=== PATIENT | female | born 1990 | race Caucasian/White ===

== ENCOUNTER 2023-02-14 16:20 | Outpatient (RCR) | payer OTHER, SELFPAY | END 2023-03-01 13:52 | disposition home or self-care (01) | LOC: PT 16:20 | PROVIDERS: PCP Family Medicine; Visit Provider Family Medicine | DX: M54.2 Cervicalgia (principal) | CPT/HCPCS: 20561; 97140; 97161 ==

== ENCOUNTER 2023-02-27 06:36 | Outpatient (OUT) | payer OTHER, SELFPAY ==
[2023-02-27 07:17] LABS: Basophils Absolute Auto 0.1 10^3/uL (0.0-0.1); Basophils Percent Auto 0.9 % (0.2-2.0); Eosinophils Absolute Auto 0.1 10^3/uL (0.0-0.7); Eosinophils Percent Auto 0.9 % (0.9-7.0); Hematocrit 39.6 % (36.0-48.0); Hemoglobin 12.8 g/dL (12.0-16.0); Immature Granulocytes Abs Auto 0.02 10^3/uL (0.00-0.03); Immature Granulocytes Pct Auto 0.3 % (0.0-0.5); Lymphocytes Absolute Auto 1.3 10^3/uL (1.2-3.8); Lymphocytes Percent Auto 19.1 % (20.5-60.0); Mean Corpuscular HGB Conc 32.3 g/dL (29.9-35.2); Mean Corpuscular Hemoglobin 26.7 pg (26.7-34.0); Mean Corpuscular Volume 82.5 fL (81.0-99.0); Mean Platelet Volume 9.8 fL (9.5-13.5); Monocytes Absolute Auto 0.6 10^3/uL (0.3-0.8); Neutrophils Absolute Auto 4.9 10^3/uL (1.4-6.5); Neutrophils Percent Auto 70.8 % (43.0-75.0); Platelet Count 316 10^3/uL (150-450); White Blood Count 6.9 10^3/uL (4.0-11.0)
[2023-02-27 08:36] LABS: Estimated Average Glucose 108 mg/dL; Glycohemoglobin A1C 5.4 % (4.5-6.2)
[2023-02-27 09:47] LABS: Alanine Aminotransferase 31 U/L (14-59); Albumin Globulin Ratio 1.1; Albumin Level 4.1 g/dL (3.4-5.0); Alkaline Phosphatase 57 U/L (46-116); Anion Gap 6.5; Aspartate Amino Transferase 19 U/L (15-37); BUN Creatinine Ratio 11.3; Bilirubin Total 0.4 mg/dL (0.2-1.0); Calcium 8.7 mg/dL (8.5-10.1); Carbon Dioxide 33.1 mmol/L (21.0-32.0); Chloride 100 mmol/L (98-107); Chol HDL Ratio 3.9; Cholesterol 207 mg/dL (<=200); Estimated GFR (African America >60 (>=60); Estimated GFR (Non-African Ame 50 (>=60); Free T3 2.61 pg/mL (2.18-3.98); Globulin 3.6 g/dL; Glucose 94 mg/dL (74-106); HDL Cholesterol 53 mg/dL (40-60); Potassium 3.6 mmol/L (3.5-5.1); Sodium 136 mmol/L (136-145); Thyroid Stimulating Hormone 3.336 uIU/mL (0.358-3.740); Total Protein 7.7 g/dL (6.4-8.2); Triglycerides 88 mg/dL (<=150); VLDL CHOLESTEROL 17.6 mg/dL
[2023-02-28 11:11] LABS: Insulin 12.6 uIU/mL (2.6-24.9)
== END 2023-02-27 06:37 | disposition home or self-care (01) ==
LOC: LAB 06:38
PROVIDERS: PCP Family Medicine; Visit Provider Family Medicine
DX: Z00.00 Encounter for general adult medical examination without abnormal findings (principal)
CPT/HCPCS: 36415; 80053; 80061; 83036; 83525; 83540; 84436; 84443; 84481; 85025

== ENCOUNTER 2023-03-04 16:50 | Outpatient (OUT) | payer OTHER, SELFPAY ==
--- NOTE | 2023-03-04 16:54 | US_ITS ---
The [address] [address] Patient Name: JAREK FIELD MRN: [id number] date: 1990 Sex: F Assigned Patient Location: Current Patient Location: US Accession/Order Number: [id number] Exam Date: 03/04/2023 17:00 Report Date: 03/04/2023 17:52 At the request of: DONNELL ALLEN Procedure: US renal BI Ultrasound kidneys, bilateral HISTORY: Disorder of kidney and ureter, N28.9 COMPARISON: None. TECHNIQUE: Transabdominal ultrasound imaging of both kidneys was performed. FINDINGS: Both kidneys demonstrate normal echotexture and echogenicity. The right kidney measures 9.1 x 4.8 x 4.4 cm. There is no hydronephrosis of right kidney. The left kidney measures 10.7 x 4.3 x 5.0 cm. No hydronephrosis of left kidney. No discrete renal lesion or renal stone is seen. The bladder is distended with prevoid volume at 370 cc. Ureteral jets not assessed. US/US renal BI IMPRESSION: 1. Normal ultrasound appearance of the kidneys. Negative for hydronephrosis, structural renal lesion or renal stone by ultrasound. 2. Normal appearance of distended bladder. Electronically authenticated by: ORIANA GANNON Date: 03/04/2023 17:52
== END 2023-03-04 16:51 | disposition home or self-care (01) ==
LOC: US 16:51
PROVIDERS: PCP Family Medicine; Visit Provider Family Medicine
DX: N28.9 Disorder of kidney and ureter, unspecified (principal)
CPT/HCPCS: 76775

== ENCOUNTER 2023-06-03 09:50 | Outpatient (RCR) | payer OTHER, SELFPAY | END 2023-07-09 15:02 | disposition home or self-care (01) | LOC: PT 09:50 | PROVIDERS: PCP Family Medicine; Visit Provider Family Medicine | DX: M54.12 Radiculopathy, cervical region (principal); M79.602 Pain in left arm | CPT/HCPCS: 20561; 97140; 97161 ==

== ENCOUNTER 2023-06-09 14:36 | Observation (INO) | payer OTHER, SELFPAY ==
[2023-06-09] VITALS (10 sets, daily range): BP systolic 124–150; BP diastolic 82–90; PULSE 70–94; RESP 16–20; TEMP 36.4–37.1; O2SAT 94–100; BMI 36.0; BMI 36.7
--- NOTE | 2023-06-09 15:09 | ED.GENADUL1 ---
HPI - General Adult General Chief complaint: Headache Stated complaint: MIGRAINE Time Seen by Provider: 06/09/23 14:42 Source: patient Mode of arrival: walk-in Limitations: no limitations History of Present Illness HPI narrative: pain from the neck to the base of the scalp that worsened since last night. She has chronic neck problems and has tried a variety of therapies including micro-needling. No recent injury or illness, recent fever or chills. She had some nausea but no vomiting. No URI symptoms. She has some mild photophobia. Never been diagnosed with migraines but symptoms are typical of those associated with her neck pain. She took half tab of tizanidine and some tylenol earlier today. Related Data Home Medications Medication Instructions Recorded Confirmed acebutolol 200 mg capsule 200 mg PO BID 06/09/23 06/09/23 bupropion HCl 300 mg 24 hr tablet, 300 mg PO DAILY 06/09/23 06/09/23 extended release oxaprozin 600 mg tablet 600 mg PO DAILY 06/09/23 06/09/23 pantoprazole 40 mg tablet,delayed 40 mg PO Q12H 06/09/23 06/09/23 release phentermine 37.5 mg capsule 37.5 mg PO DAILY 06/09/23 06/09/23 tizanidine 4 mg tablet 8 mg PO BEDTIME 06/09/23 06/09/23 trazodone 50 mg tablet 50 mg PO BEDTIME 06/09/23 06/09/23 triamterene 75 1 tab PO DAILY 06/09/23 06/09/23 mg-hydrochlorothiazide 50 mg tablet Allergies Allergy/AdvReac Type Severity Reaction Status Date / Time irbesartan Allergy Severe Verified 06/09/23 14:47 silver Allergy Severe Hives Verified 06/09/23 14:47 [facility] Social History Smoking status: Never smoker Exam Narrative Exam Narrative: Nurses notes and vital signs reviewed and patient is not hypoxic. afebrile General: Well-appearing and in no apparent distress. Skin: Warm, dry, no pallor noted. No rash to back or neck. Head: Normocephalic, atraumatic. Neck: Supple, non-tender. no cervical lymphadenopathy or meningismus Eye: Pupils are equal, round and EOMI. No scleral icterus. Cardiovascular: Regular Rate and Rhythm without murmur, gallop or rub. Respiratory: No accessory muscle use or respiratory distress. Lungs are clear to auscultation, no wheezing, rales or rhonchi Back: No midline thoracic or lumbar vertebral tenderness. Mild bilateral trapezius tenderness Musculoskeletal: normal ROM, no calf or popliteal tenderness, no lower extremity edema/swelling Neurological: A&O x4. No cranial nerve dysfunction observed. No truncal ataxia. Moves all extremities. Sensation intact. Psychiatric: Cooperative and interactive. Normal mood and affect. Constitutional Vital Signs, click to edit/add: Last Vital Signs Temp 98.5 F 06/09/23 14:40 Pulse 70 06/09/23 17:14 Resp 18 06/09/23 17:14 BP 150/90 H 06/09/23 17:14 Pulse Ox 99 06/09/23 17:14 O2 Del Method Room Air 06/09/23 14:40 Course Vital Signs Vital signs: Vital Signs Temperature 98.5 F 06/09/23 14:40 Pulse Rate 78 06/09/23 14:40 Respiratory Rate 16 06/09/23 14:40 Blood Pressure 139/90 06/09/23 14:40 Pulse Oximetry 99 06/09/23 14:40 Oxygen Delivery Method Room Air 06/09/23 14:40 Temperature 98.5 F 06/09/23 14:40 Pulse Rate 70 06/09/23 17:14 Respiratory Rate 18 06/09/23 17:14 Blood Pressure 150/90 H 06/09/23 17:14 Pulse Oximetry 99 06/09/23 17:14 Oxygen Delivery Method Room Air 06/09/23 14:40 Medical Decision Making MDM Narrative Medical decision making narrative: peripheral IV established. The patient was ordered to receive IV Toradol, IV Norflex and IV Zofran. She also received normal saline IV fluid. No improvement on recheck so she received IV Benadryl, IV Solumedrol and IV Dilaudid. She was sent for non contrast head CT which did not reveal any worrisome pathology. On recheck at 1712, her pain was still 9/10, barely down from 10/10 on arrival. I have given her everything available to me in the ED for this without any improvement. She will be admitted for further management of her intractable headache and neck pain. I talked with Dr Sharpe and she agreed to admit the patient on behalf of Dr Brooke, the patient's PCP. Imaging Data CT scan - head: Radiologist's impression: Patient: JAREK FIELD MR#: [id number] : 1990 Acct:[id number] Age/Sex: 32 / F ADM Date: 06/09/23 Loc: ER Attending Dr: Ordering Physician: Soham Lonodn D.O. Date of Service: 06/09/23 Procedure(s): CT head/brain wo con Accession Number(s): [id number] cc: ~ [place] [id number] Patient Name: JAREK FIELD MRN: [id number] date: 1990 Sex: F Assigned Patient Location: ER Current Patient Location: ER Accession/Order Number: [id number] Exam Date: 06/09/2023 16:28 Report Date: 06/09/2023 17:03 At the request of: SOHAM LONDON Procedure: CT head/brain wo con Initial impression only. CT/CT head/brain wo con IMPRESSION: 1. No acute intracranial event. 2. Clear sinuses. 3. Partially empty sella. Electronically authenticated by: KAITLYN ROBBINS Date: 06/09/2023 17:03 Discharge Plan Discharge Chief Complaint: Headache Clinical Impression: Neck pain, acute, Acute intractable headache Patient Disposition: Admitted as Observation Time of Disposition Decision: 17:28 Additional Instructions: dr Sharpe, medsur, obs
[2023-06-09] MEDS: 0.9 % SODIUM CHLORIDE 1,000 ML 999 ML IV (15:19)
[2023-06-09] MEDS: ONDANSETRON PF 4 MG/2 ML VIAL IV (15:20)
[2023-06-09] MEDS: ORPHENADRINE 60 MG/ 2 ML VIAL 30 MG IV (15:20)
[2023-06-09] MEDS: KETOROLAC TROMETHAMINE 30 MG/ML VIAL IVP (15:21)
[2023-06-09] MEDS: DIPHENHYDRAMINE HCL 50 MG/ML (1ML) VIAL 25 MG IV (16:10)
[2023-06-09] MEDS: HYDROMORPHONE HCL 1 MG/ML CARTRIDGE 0.5 MG IVP ×2 (16:10→16:27)
[2023-06-09] MEDS: METHYLPREDNISOLONE SOD SUCC PF 125 MG/2 ML VIAL IVP (16:10)
--- NOTE | 2023-06-09 16:19 | CT_ITS ---
[address] [address] Patient Name: JAREK FIELD MRN: [id number] date: 1990 Sex: F Assigned Patient Location: ER Current Patient Location: [place] Accession/Order Number: [id number] Exam Date: 06/09/2023 16:28 Report Date: 06/11/2023 10:38 At the request of: SOHAM LONDON Procedure: CT head/brain wo con EXAMINATION: CT head/brain wo con HISTORY: headache COMPARISON: None. TECHNIQUE: Unenhanced helical imaging was acquired from skull base to vertex. Multiplanar images are submitted. Dose reduction techniques were achieved by using: automated exposure control and/or adjustment of mA and /or kV according to patient size and/or use of iterative reconstruction technique. FINDINGS: There is no acute intraaxial or extraaxial mass, shift, or bleed. Simpson-white junctions are well defined. The ventricles and sulci are age-appropriate. Partially empty sella.. The orbit and ocular contents are normal. The paranasal sinuses are clear. Calvarium is intact. CT/CT head/brain wo con IMPRESSION: 1. No acute intracranial event. 2. Clear sinuses. 3. Partially empty sella. Electronically authenticated by: KAITLYN ROBBINS Date: 06/11/2023 10:38
[2023-06-09 18:19] LABS: Basophils Absolute Auto 0.1 10^3/uL (0.0-0.1); Basophils Percent Auto 0.7 % (0.2-2.0); Eosinophils Percent Auto 0.5 % (0.9-7.0); Hematocrit 40.7 % (36.0-48.0); Hemoglobin 13.1 g/dL (12.0-16.0); Immature Granulocytes Abs Auto 0.03 10^3/uL (0.00-0.03); Immature Granulocytes Pct Auto 0.4 % (0.0-0.5); Lymphocytes Absolute Auto 0.6 10^3/uL (1.2-3.8); Lymphocytes Percent Auto 7.7 % (20.5-60.0); Mean Corpuscular HGB Conc 32.2 g/dL (29.9-35.2); Mean Corpuscular Hemoglobin 27.8 pg (26.7-34.0); Mean Corpuscular Volume 86.2 fL (81.0-99.0); Mean Platelet Volume 9.4 fL (9.5-13.5); Monocytes Absolute Auto 0.1 10^3/uL (0.3-0.8); Monocytes Percent Auto 1.9 % (1.7-12.0); Neutrophils Absolute Auto 6.6 10^3/uL (1.4-6.5); Neutrophils Percent Auto 88.8 % (43.0-75.0); Platelet Count 274 10^3/uL (150-450); Red Blood Count 4.72 10^6/uL (4.20-5.40); Red Cell Distribution Width 14.2 % (11.0-15.0); White Blood Count 7.4 10^3/uL (4.0-11.0)
[2023-06-09 18:51] LABS: Alanine Aminotransferase 23 U/L (14-59); Albumin Globulin Ratio 1.1; Alkaline Phosphatase 52 U/L (46-116); Anion Gap 11.9; Aspartate Amino Transferase 14 U/L (15-37); BUN Creatinine Ratio 9.8; Bilirubin Total 0.3 mg/dL (0.2-1.0); Calcium 8.7 mg/dL (8.5-10.1); Carbon Dioxide 28.5 mmol/L (21.0-32.0); Chloride 101 mmol/L (98-107); Estimated GFR (African America 56 (>=60); Estimated GFR (Non-African Ame 47 (>=60); Globulin 3.8 g/dL; Glucose 101 mg/dL (74-106); Magnesium 1.7 mg/dL (1.8-2.4); Potassium 3.4 mmol/L (3.5-5.1); Sodium 138 mmol/L (136-145); Thyroid Stimulating Hormone 1.885 uIU/mL (0.358-3.740); Total Protein 7.8 g/dL (6.4-8.2)
[2023-06-09] MEDS: ENOXAPARIN SODIUM 40 MG/0.4 ML SYRINGE SUBQ (19:54)
[2023-06-09] MEDS: LACTATED RINGER'S SOLUTION 1,000 ML 125 ML IV (19:54)
--- NOTE | 2023-06-09 21:11 | P.PN_ITS ---
Progress Note: Subjective Subjective Interval history: Chief Complaint: Severe headache, neck pain History of Present Illness: This is a very pleasant 32 years old female who presents with above complaints. Patient has chronic neck pain and chronic headache. She tried different treatment modalities at home including nonsteroidal anti-inflammatory medications, muscle relaxants, microneedling. It worked with various degree of success in the past. In the last 2 days symptoms intensified and patient could not control her headache. She came to emergency room for evaluation. She denies fever, chills, nasal congestion or sore throat. Evaluation in the emergency room did not reveal any significant abnormalities. Attempt to control his symptoms with nonsteroidal anti-inflammatory medications and or narcotics so far did not yield to desirable result. Admitted for further evaluation and treatment. Exam Narrative Exam Narrative: ROS: 1.General: no fever, chills, not in distress 2.HEENT: See above 3.Pulmonary: no cough, SOB, wheezes 4.CVS: no CP, no palpitations, no RICHARDS, no SOB, no intermittent claudication 5.GI: no nausea, vomiting or diarrhea, no abdominal pain, no constipation, no hematemesis or hematochezia 6.: no renal colic, no hematuria, urinary frequency or urgency 7.Extremities: no edema 8.Neurological: no dizziness, vertigo, double or blurry vision, no no focal we akness, no paresthesia, no swallow or speech problems 9.Musculosceletal: no joint pains, no joint swelling, no back pain 10.Dermatological: no skin rashes, no lesions, no pruritus 11.Hematological: no bleeding, no hx/o clots 12.Endocrinological: no heat/cold intolerance, no hx/o diabetes 13.Psychiatric: no suicidal or homicidal thoughts Physical Exam: Not in distress, pleasant, lucid, cooperative, Head - atraumatic, eyes - pupils equal, round, reactive to light, extra ocular movement intact, MMM Neck - supple, thyroid not enlarged, LN not palpated Lungs - clear to auscultation, no dullness on percussion CVS - heart sounds S1, S2, no additional murmurs gallop, regular rate and rhythm Gastrointestinal?abdomen is soft, non-tender, non-distended, no organomegaly, positive bowel sounds Extremities no clubbing, cyanosis or edema Neurological?cranial nerve II?XII grossly intact, no meningeal signs, no cerebellar signs, no sensory deficit Musculoskeletal - joints, no effusions, ROM preserved Dermatological - the skin dry, warm, no rashes Psychiatric?patient is AAO X3, patient has normal affect Constitutional Vital Signs, click to edit/add: Last Vital Signs Temp 98.8 F 06/09/23 19:37 Pulse 85 06/09/23 20:00 Resp 18 06/09/23 19:37 BP 124/84 06/09/23 19:37 Pulse Ox 97 06/09/23 19:37 O2 Del Method Room Air 06/09/23 19:37 Progress Note: Objective Labs Labs: Short CBC 06/09/23 Range/Units 18:10 WBC 7.4 (4.0-11.0) 10^3/uL Hgb 13.1 (12.0-16.0) g/dL Hct 40.7 (36.0-48.0) % Plt Count 274 (150-450) 10^3/uL BMP 06/09/23 18:10 Sodium 138 Potassium 3.4 L Chloride 101 Carbon Dioxide 28.5 BUN 13.0 Creatinine 1.32 H Glucose 101 Calcium 8.7 Liver Function 06/09/23 Range/Units 18:10 Total Bilirubin 0.3 (0.2-1.0) mg/dL AST 14 L (15-37) U/L ALT 23 (14-59) U/L Alkaline Phosphatase 52 (46-116) U/L Albumin 4.0 (3.4-5.0) g/dL Progress Note: A&P Assessment and Plan (1) Acute intractable headache: Assessment and Plan: No acute findings during evaluation in the emergency room Continue with gentle, judicious IV fluid resuscitation Continue with symptoms control?I added Toradol IV every 8 hours as needed as well as Fioricet (patient stating that she is usually not consuming caffeine, but at times it helps with her headaches and symptoms management) (2) Neck pain, acute: Assessment and Plan: As above Patient might benefit from MRI of the neck and may be referral to his spinal surgeon or neurosurgeon if any significant abnormalities identified (3) Hypertension: Assessment and Plan: Resume home medications if medically appropriate, adjust as needed (4) GERD (gastroesophageal reflux disease): Assessment and Plan: Continue with PPIs Plan As the provider for the telehealth service, I attest that I introduced myself to the patient, provided my credentials, disclosed by location and determined that based on a review of the patient's chart and discussion with members of the patient's treatment team, telemedicine via real-time, 2 way, and interactive audio and video platform is an appropriate and effective means of providing the service. ?The patient and I mutually agree this visit is appropriate for telemedicine. ?The virtual encounter was taken place from? [place], [place]. ?The encounter took approximately 35 minutes. ?The nurse was present during the entire time and I was able to move the stethoscope in appropriate directions. ?The patient was evaluated at the Hospital ? Portions of this note may be dictated using [employer] voice recognition software. Variances in spelling and vocabulary are possible and unintentional. Not all errors may be caught and/or corrected. Please notify the author if any discrepancies are noted and/or if the meaning of any statement is unclear.? ? Patient verbally consented for treatment via video visit with patient currently located at the [facility] and provider located in [place]. Telemedicine Attestation Telemedicine Attestation I conducted this encounter from [[place]] via secure live, [id number] video conference with the patient, located at [facility] with [intractable headache]. Prior to the interview, the risks and benefits of telemedicine were discussed with the patient and verbal consent was obtained.
[2023-06-09] MEDS: TIZANIDINE HCL 4 MG TABLET 8 MG PO (21:18)
[2023-06-09] MEDS: TRAZODONE HCL 50 MG TABLET PO (21:18)
[2023-06-09] MEDS: OMEPRAZOLE 40 MG CAPSULE.DR PO (21:18)
[2023-06-09] MEDS: 0.9 % SODIUM CHLORIDE 1,000 ML 100 ML IV ×2 (21:19)
[2023-06-09] MEDS: BUTALB/ACETAMINOPHEN/CAFFEINE 50-325-40MG TABLET 1 TAB PO (21:25)
[2023-06-09] MEDS: KETOROLAC TROMETHAMINE 30 MG/ML VIAL 15 MG IVP (21:27)
[2023-06-09] MEDS: SUMATRIPTAN SUCCINATE 50 MG TABLET PO (22:58)
[2023-06-10] VITALS (24 sets, daily range): BP systolic 111–190; BP diastolic 72–120; PULSE 58–95; RESP 18–20; TEMP 36.4–37.2; O2SAT 93–96
[2023-06-10] MEDS: ACETAMINOPHEN 325 MG TABLET 650 MG PO ×2 (01:37→14:54)
[2023-06-10] MEDS: SUMATRIPTAN SUCCINATE 50 MG TABLET PO (01:37)
[2023-06-10] MEDS: PROMETHAZINE HCL 25 MG/ML VIAL 12.5 MG IM (03:25)
[2023-06-10] MEDS: BUTALB/ACETAMINOPHEN/CAFFEINE 50-325-40MG TABLET 1 TAB PO (04:20)
[2023-06-10] MEDS: HYDRALAZINE HCL 20 MG/ML VIAL 10 MG IVP (04:41)
[2023-06-10] MEDS: KETOROLAC TROMETHAMINE 30 MG/ML VIAL 15 MG IVP (05:41)
[2023-06-10] MEDS: 0.9 % SODIUM CHLORIDE 1,000 ML 100 ML IV ×2 (05:42→16:56)
[2023-06-10 05:46] LABS: Basophils Percent Auto 0.1 % (0.2-2.0); Hematocrit 38.7 % (36.0-48.0); Hemoglobin 12.8 g/dL (12.0-16.0); Immature Granulocytes Abs Auto 0.03 10^3/uL (0.00-0.03); Immature Granulocytes Pct Auto 0.3 % (0.0-0.5); Lymphocytes Absolute Auto 0.8 10^3/uL (1.2-3.8); Lymphocytes Percent Auto 8.1 % (20.5-60.0); Mean Corpuscular HGB Conc 33.1 g/dL (29.9-35.2); Mean Corpuscular Hemoglobin 27.8 pg (26.7-34.0); Mean Corpuscular Volume 84.1 fL (81.0-99.0); Mean Platelet Volume 9.6 fL (9.5-13.5); Monocytes Absolute Auto 0.4 10^3/uL (0.3-0.8); Monocytes Percent Auto 4.2 % (1.7-12.0); Neutrophils Absolute Auto 8.7 10^3/uL (1.4-6.5); Neutrophils Percent Auto 87.3 % (43.0-75.0); Platelet Count 276 10^3/uL (150-450); Red Cell Distribution Width 14.2 % (11.0-15.0); White Blood Count 9.9 10^3/uL (4.0-11.0)
--- NOTE | 2023-06-10 05:57 | PC.NURSE ---
patient states it feels like I am running . B/P rechecked 154/102, HR 67
[2023-06-10 06:06] LABS: Alanine Aminotransferase 21 U/L (14-59); Albumin Level 3.5 g/dL (3.4-5.0); Alkaline Phosphatase 47 U/L (46-116); Anion Gap 14.7; Aspartate Amino Transferase 13 U/L (15-37); Bilirubin Total 0.2 mg/dL (0.2-1.0); Calcium 8.5 mg/dL (8.5-10.1); Carbon Dioxide 24.8 mmol/L (21.0-32.0); Chloride 102 mmol/L (98-107); Estimated GFR (African America >60 (>=60); Estimated GFR (Non-African Ame 59 (>=60); Globulin 3.5 g/dL; Glucose 93 mg/dL (74-106); Potassium 3.5 mmol/L (3.5-5.1); Sodium 138 mmol/L (136-145)
--- NOTE | 2023-06-10 07:52 | MR_ITS ---
The [address] [address] Patient Name: JAREK FIELD MRN: [id number] date: 1990 Sex: F Assigned Patient Location: MS Current Patient Location: [place] Accession/Order Number: [id number] Exam Date: 06/10/2023 15:00 Report Date: 06/10/2023 15:51 At the request of: DONNELL ALLEN Procedure: MR cervical spine wo con MRI CERVICAL SPINE WITHOUT CONTRAST: 06/10/2023 3:00 PM EDT History:cervical radiculopathy Comparison: None available . Sequences: Per routine unenhanced protocol. STUDY QUALITY: Mild motion artifact on axial GRE, sagittal T2, and IR T2. Moderate motion artifact on axial T2 CRANIOVERTEBRAL JUNCTION: No acute finding. OSSEOUS: No marrow edema pattern or compression deformity. SPINAL CANAL SIZE: Developmentally is a little greater than average in size C1-2: No central stenosis. C2-3: No HNP or central stenosis. C3-4: Mild spondylitic ridging off the posterior margins of both uncovertebral joints, right slightly greater than left. No central stenosis. C4 foramina are mildly narrowed. C4-5: No HNP or central stenosis. C5-6: No HNP or central stenosis. C6-7: Mild disc bulge or spondylosis. No central stenosis. C7-T1: No HNP or central stenosis. OTHER LEVELS: Exam in the sagittal plane only at upper thoracic levels is negative for HNP or central stenosis. CORD: No evidence of myelomalacia. No syrinx. EXTRASPINAL SOFT TISSUES: No acute findings MR/MR cervical spine wo con IMPRESSION: 1. Some motion artifact. No HNP or central spinal stenosis is evident. Electronically authenticated by: RADHA PERDOMO Date: 06/10/2023 15:51
--- NOTE | 2023-06-10 07:55 | ECG_ITS ---
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
--- NOTE | 2023-06-10 07:57 | P.HP_ITS ---
H&P: HPI History of Present Illness Chief complaint: MIGRAINE INTRACTABLE HEADACHE NECK PAIN Narrative: Patient present to the emergency room with increasing pain in the neck, rating up into her occiput area, this is progressed over the last several weeks to now having pain in her upper extremities bilateral, with weakness, she dropping things at home, patient on medication in ER without successful improvement. Still has pain and weakness into her upper extremities. Review of Systems ROS Status of ROS 10 or more systems reviewed and unremarkable except as noted in history and below Constitutional Denies: fever Ears, nose, mouth, and throat Denies: throat pain Cardiovascular Reports: chest pain Respiratory Denies: shortness of breath Gastrointestinal Denies: abdominal pain Genitourinary Denies: painful urination Musculoskeletal Reports: neck pain; Denies: back pain Integumentary/Breast Denies: rash Neurological Reports: headache, numbness in extremities and weakness in extremities Psychiatric Denies: anxiety Endocrine Denies: excessive urination Hematologic/Lymphatic Denies: easy bruising PFSH PFSH Social History Smoking status: Never smoker Meds Home Medications and Allergies Home Medications Medication Instructions Recorded Confirmed Type acebutolol 200 mg capsule 200 mg PO BID 06/09/23 06/09/23 History bupropion HCl 300 mg 24 hr tablet, 300 mg PO DAILY 06/09/23 06/09/23 History extended release oxaprozin 600 mg tablet 600 mg PO DAILY 06/09/23 06/09/23 History pantoprazole 40 mg tablet,delayed 40 mg PO Q12H 06/09/23 06/09/23 History release phentermine 37.5 mg capsule 37.5 mg PO DAILY 06/09/23 06/09/23 History tizanidine 4 mg tablet 8 mg PO BEDTIME 06/09/23 06/09/23 History trazodone 50 mg tablet 50 mg PO BEDTIME 06/09/23 06/09/23 History triamterene 75 1 tab PO DAILY 06/09/23 06/09/23 History mg-hydrochlorothiazide 50 mg tablet Allergies Allergy/AdvReac Type Severity Reaction Status Date / Time irbesartan Allergy Severe Verified 06/09/23 14:47 silver Allergy Severe Hives Verified 06/09/23 14:47 Exam Constitutional Vital Signs, click to edit/add: Last Vital Signs Temp 97.6 F 06/10/23 05:47 Pulse 68 06/10/23 07:56 Resp 20 06/10/23 05:47 BP 156/100 H 06/10/23 06:46 Pulse Ox 94 L 06/10/23 05:47 O2 Del Method Room Air 06/10/23 05:47 Documenting provider has reviewed patient's vital signs: yes Common normals: apparent distress (Moderate painful distress) Chest Common normals: inspection of chest normal Respiratory Common normals: normal respiratory effort Cardio Common normals: regular rate, regular rhythm and no murmurs Other: does have reproducible chest pain to palpation GI Common normals: Normal to inspection, nondistended, normoactive bowel sounds present, soft to palpation and non-tender Extremity Common normals: normal to inspection Right upper extremity: upper arm (3 out of 5 strength proximal muscle groups) Left upper extremity: upper arm (3 out of 5 strength proximal muscle groups) Other: Neck with full range of motion with no nuchal rigidity, tenderness to palpation, paracervical and directly over the C-spine Neuro Motor exam: abnormal strength (see above) Results Labs Labs: Short CBC 06/09/23 06/10/23 Range/Units 18:10 04:50 WBC 7.4 9.9 (4.0-11.0) 10^3/uL Hgb 13.1 12.8 (12.0-16.0) g/dL Hct 40.7 38.7 (36.0-48.0) % Plt Count 274 276 (150-450) 10^3/uL BMP 06/09/23 06/10/23 18:10 04:50 Sodium 138 138 Potassium 3.4 L 3.5 Chloride 101 102 Carbon Dioxide 28.5 24.8 BUN 13.0 13.0 Creatinine 1.32 H 1.08 H Glucose 101 93 Calcium 8.7 8.5 Liver Function 06/09/23 06/10/23 Range/Units 18:10 04:50 Total Bilirubin 0.3 0.2 (0.2-1.0) mg/dL AST 14 L 13 L (15-37) U/L ALT 23 21 (14-59) U/L Alkaline Phosphatase 52 47 (46-116) U/L Albumin 4.0 3.5 (3.4-5.0) g/dL Assessment and Plan Assessment and Plan (1) Acute intractable headache: (2) Neck pain, acute: (3) Hypertension: (4) GERD (gastroesophageal reflux disease): Plan Grossly proximal muscle weakness in the upper extremities with pain in the cervical, pain and radiating up in the head, does not fit a typical migraine, CT scan of brain was negative, will check x-ray of neck and MRI scan of C-spine due to progressive pain and weakness in the upper extremities Mildly elevated BUN/creatinine likely secondary to mild dehydration Hypomagnesemia-supplement We will maintain patient observation status, medications adjusted, pending MRI scan results possible discharge versus transfer
--- NOTE | 2023-06-10 08:19 | XR_ITS ---
The [address] [address] Patient Name: JAREK FIELD MRN: [id number] date: 1990 Sex: F Assigned Patient Location: MS Current Patient Location: [place] Accession/Order Number: [id number] Exam Date: 06/10/2023 08:40 Report Date: 06/10/2023 09:13 At the request of: DONNELL ALLEN Procedure: XR cervical spine 2-3V EXAMINATION: XR cervical spine 2-3V HISTORY: cervical radiulopathy COMPARISON: No relevant comparison available. FINDINGS: BONES: Normal. No significant spondylosis, scoliosis, fracture, or visible bony lesion. DISC SPACES: Normal. No significant disc height narrowing, subluxation, or endplate abnormality. PARASPINOUS: Negative. No paraspinous abnormality is seen. OTHER: Negative. XR/XR cervical spine 2-3V IMPRESSION: No acute abnormality Electronically authenticated by: THOM ANGELA Date: 06/10/2023 09:13
[2023-06-10] MEDS: BUPROPION HCL 150 MG XL TABLET 24H 300 MG PO (09:00)
[2023-06-10] MEDS: OMEPRAZOLE 40 MG CAPSULE.DR PO ×2 (09:00→21:11)
[2023-06-10] MEDS: ORPHENADRINE 60 MG/ 2 ML VIAL IV ×2 (09:01→19:19)
[2023-06-10] MEDS: KETOROLAC TROMETHAMINE 30 MG/ML VIAL IVP ×3 (09:01→19:19)
[2023-06-10] MEDS: ENOXAPARIN SODIUM 40 MG/0.4 ML SYRINGE SUBQ (09:01)
[2023-06-10] MEDS: WATER IV (09:02)
[2023-06-10] MEDS: PIGGYBACK IV (09:02)
[2023-06-10] MEDS: MAGNESIUM SULFATE IV (09:02)
[2023-06-10] MEDS: PROMETHAZINE HCL 25 MG/ML VIAL IV (09:02)
[2023-06-10] MEDS: ONDANSETRON PF 4 MG/2 ML VIAL IV (16:58)
[2023-06-10] MEDS: TRAZODONE HCL 50 MG TABLET PO (21:11)
[2023-06-10] MEDS: PROMETHAZINE HCL 25 MG/ML VIAL IM (22:44)
[2023-06-11 01:50] VITALS: PULSE 78
[2023-06-11] MEDS: KETOROLAC TROMETHAMINE 30 MG/ML VIAL IVP (02:02)
[2023-06-11] MEDS: 0.9 % SODIUM CHLORIDE 1,000 ML 100 ML IV (02:06)
[2023-06-11 04:00] VITALS: PULSE 68
[2023-06-11 04:48] LABS: Basophils Absolute Auto 0.1 10^3/uL (0.0-0.1); Basophils Percent Auto 0.8 % (0.2-2.0); Eosinophils Absolute Auto 0.1 10^3/uL (0.0-0.7); Eosinophils Percent Auto 0.8 % (0.9-7.0); Hematocrit 34.8 % (36.0-48.0); Hemoglobin 10.9 g/dL (12.0-16.0); Immature Granulocytes Abs Auto 0.02 10^3/uL (0.00-0.03); Immature Granulocytes Pct Auto 0.3 % (0.0-0.5); Lymphocytes Absolute Auto 2.1 10^3/uL (1.2-3.8); Lymphocytes Percent Auto 27.3 % (20.5-60.0); Mean Corpuscular HGB Conc 31.3 g/dL (29.9-35.2); Mean Corpuscular Hemoglobin 27.2 pg (26.7-34.0); Mean Corpuscular Volume 86.8 fL (81.0-99.0); Mean Platelet Volume 9.2 fL (9.5-13.5); Monocytes Absolute Auto 0.6 10^3/uL (0.3-0.8); Monocytes Percent Auto 7.2 % (1.7-12.0); Neutrophils Absolute Auto 4.8 10^3/uL (1.4-6.5); Neutrophils Percent Auto 63.6 % (43.0-75.0); Platelet Count 238 10^3/uL (150-450); Red Blood Count 4.01 10^6/uL (4.20-5.40); Red Cell Distribution Width 14.9 % (11.0-15.0); White Blood Count 7.6 10^3/uL (4.0-11.0)
[2023-06-11 05:16] LABS: Alanine Aminotransferase 18 U/L (14-59); Albumin Level 2.9 g/dL (3.4-5.0); Alkaline Phosphatase 43 U/L (46-116); Anion Gap 10.8; Aspartate Amino Transferase 7 U/L (15-37); BUN Creatinine Ratio 12.8; Bilirubin Total 0.2 mg/dL (0.2-1.0); Carbon Dioxide 25.9 mmol/L (21.0-32.0); Chloride 108 mmol/L (98-107); Estimated GFR (African America 56 (>=60); Estimated GFR (Non-African Ame 46 (>=60); Globulin 2.9 g/dL; Glucose 83 mg/dL (74-106); Potassium 3.7 mmol/L (3.5-5.1); Sodium 141 mmol/L (136-145); Total Protein 5.8 g/dL (6.4-8.2)
[2023-06-11 05:59] VITALS: PULSE 64
[2023-06-11 06:00] VITALS: BP 108/69; PULSE 73; RESP 18; TEMP 36.6; O2SAT 93
--- NOTE | 2023-06-11 07:10 | P.DS_ITS ---
DS: Providers Provider Date of admission: 06/09/23 17:54 Primary care physician: Felipe Brooke MD Consults: 06/10/23 07:54 Physical Therapy Eval and Treat Routine Reason for consultation: cervical radiculopathy Has provider been notified: No DS: Diagnosis Discharge Diagnosis (1) Acute intractable headache: (2) Neck pain, acute: (3) Hypertension: (4) GERD (gastroesophageal reflux disease): Plan Grossly proximal muscle weakness in the upper extremities with pain in the cervical, pain and radiating up in the head, Mildly elevated BUN/creatinine likely secondary to mild dehydration Hypomagnesemia-supplement Hypocalcemia ? DS: Summary Hospital Course Hospital Course: Mated with intractable neck pain. Started having paresthesias in the upper extremities with weakness difficulty holding her coffee cup. With the progressive weakness MRI scan obtained which did not reveal any surgical need. Patient does feel somewhat better today. Feels a little bit weak still on her hands but is symmetrical no other symptoms in her lower extremities. No difficulty with speech or swallowing. This point patient overall feels improved. We will have physical therapy work with her this morning and then possible discharge after physical therapy this morning. Only other finding was mild hypomagnesemia which was supplemented seen for hypocalcemia. Can monitor that as an outpatient. Did have elevation of BUN/creatinine likely secondary to Toradol effect. I will be stopped this morning. Plans for discharge home later today. Medications see list. Follow-up with me in the office within the next week Status at Discharge Overall status at discharge: patient is not back to baseline Time Spent with Patient Time attestation: Total time spent providing and/or coordinating discharge services: Exam Constitutional Vital Signs, click to edit/add: Last Vital Signs Temp 97.9 F 06/11/23 06:00 Pulse 73 06/11/23 06:00 Resp 18 06/11/23 06:00 BP 108/69 06/11/23 06:00 Pulse Ox 93 L 06/11/23 06:00 O2 Del Method Room Air 06/11/23 06:00 Documenting provider has reviewed patient's vital signs: yes Common normals: apparent distress (Moderate painful distress) Chest Common normals: inspection of chest normal Respiratory Common normals: normal respiratory effort Cardio Common normals: regular rate, regular rhythm and no murmurs Other: does have reproducible chest pain to palpation GI Common normals: Normal to inspection, nondistended, normoactive bowel sounds present, soft to palpation and non-tender Extremity Common normals: normal to inspection Right upper extremity: upper arm (3 out of 5 strength proximal muscle groups) Left upper extremity: upper arm (3 out of 5 strength proximal muscle groups) Other: Neck with full range of motion with no nuchal rigidity, tenderness to palpation, paracervical and directly over the C-spine Neuro Motor exam: abnormal strength (see above) DS: Data Data Completed and Pending Labs on day of discharge: Labs from last 24 hours 06/11/23 04:32 WBC 7.6 RBC 4.01 L Hgb 10.9 L Hct 34.8 L MCV 86.8 MCH 27.2 MCHC 31.3 RDW 14.9 Plt Count 238 MPV 9.2 L Neut % (Auto) 63.6 Lymph % (Auto) 27.3 [place] % (Auto) 7.2 Eos % (Auto) 0.8 L Baso % (Auto) 0.8 Neut # (Auto) 4.8 Lymph # (Auto) 2.1 [place] # (Auto) 0.6 Eos # (Auto) 0.1 Baso # (Auto) 0.1 Abs Immat Gran (auto) 0.02 Imm/Tot Granulo (auto) 0.3 Sodium 141 Potassium 3.7 Chloride 108 H Carbon Dioxide 25.9 Anion Gap 10.8 BUN 17.0 Creatinine 1.33 H Est GFR ( Amer) 56 L Est GFR (Non-Af Amer) 46 L BUN/Creatinine Ratio 12.8 Glucose 83 Calcium 8.0 L Total Bilirubin 0.2 AST 7 L ALT 18 Alkaline Phosphatase 43 L Total Protein 5.8 L Albumin 2.9 L Globulin 2.9 Albumin/Globulin Ratio 1.0 Discharge Plan Discharge Disposition: Home, Self-Care Discharge Medications: New tizanidine 4 mg tablet 4 mg PO TID Qty: 30 0RF Rx Instructions: 1 po TID or 1 in am and 2 at hs Continued acebutolol 200 mg capsule 200 mg PO BID bupropion HCl 300 mg tablet extended release 24 hr 300 mg PO DAILY oxaprozin 600 mg tablet 600 mg PO DAILY pantoprazole 40 mg tablet,delayed release (DR/EC) 40 mg PO Q12H phentermine 37.5 mg capsule 37.5 mg PO DAILY tizanidine 4 mg tablet 8 mg PO BEDTIME trazodone 50 mg tablet 50 mg PO BEDTIME triamterene-hydrochlorothiazid 75-50 mg tablet 1 tab PO DAILY Forms: Portal Instructions
[2023-06-11 08:00] VITALS: PULSE 86
[2023-06-11] MEDS: BUPROPION HCL 150 MG XL TABLET 24H 300 MG PO (08:01)
[2023-06-11] MEDS: ORPHENADRINE 60 MG/ 2 ML VIAL IV (08:01)
[2023-06-11] MEDS: OMEPRAZOLE 40 MG CAPSULE.DR PO (08:01)
[2023-06-11] MEDS: 0.9 % SODIUM CHLORIDE 1,000 ML 1000 ML IV (08:01)
[2023-06-11] MEDS: ENOXAPARIN SODIUM 40 MG/0.4 ML SYRINGE SUBQ (08:03)
[2023-06-11 09:16] LABS: Bilirubin Urine NEGATIVE (NEGATIVE); Blood Urine NEGATIVE (NEGATIVE); Clarity Urine CLEAR (CLEAR); Color Urine YELLOW (YELLOW); Glucose Urine UA NEGATIVE (NEGATIVE); Ketones Urine NEGATIVE (NEGATIVE); Leukocyte Esterase Urine NEGATIVE (NEGATIVE); Nitrite Urine NEGATIVE (NEGATIVE); Protein Urine NEGATIVE (NEG/TRACE); Specific Gravity Urine 1.025 (1.005-1.025); Urobilinogen Urine 0.2 EU/dL (0.2-1.0); pH Urine 6.5 (5.0-9.0)
[2023-06-11 09:27] LABS: Amphetamine Screen Urine POSITIVE (NEGATIVE); Benzodiazepines Screen Urine NEGATIVE (NEGATIVE); Cannabinoid Screen Urine NEGATIVE (NEGATIVE); Cocaine Screen Urine NEGATIVE (NEGATIVE); Methamphetamines Screen Urine NEGATIVE (NEGATIVE); Opiate Screen Urine NEGATIVE (NEGATIVE); Phencyclidine Screen Urine NEGATIVE (NEGATIVE); Tricyclic Antidepressant Urine NEGATIVE (NEGATIVE)
[2023-06-11 09:28] LABS: Barbiturates Screen Urine POSITIVE (NEGATIVE); Buprenorphine Screen Urine NEGATIVE (NEGATIVE); Methadone Screen Urine NEGATIVE (NEGATIVE); Oxycodone Screen Urine NEGATIVE (NEGATIVE)
[2023-06-11 09:32] LABS: Bacteria Urine TRACE #/HPF (NONE SEEN); Cast Seen? SEEN #/LPF (NONE SEEN); Crystals Seen? None Seen #/HPF (None Seen); Hyaline Casts Urine RARE; Mucus Urine NONE SEEN (NONE SEEN); RBC Urine 0-2 #/HPF (0-2); Squamous Epithelial Cell Urine MODERATE #/LPF (NONE/RARE)
[2023-06-11 10:00] VITALS: PULSE 82
[2023-06-11] MEDS: ACETAMINOPHEN 325 MG TABLET 650 MG PO (10:22)
--- NOTE | 2023-06-12 16:17 | CM.DCFOLLOWU ---
Person spoke with: patient How are you feeling? some weakness, overall better How is your pain? better Did you understand your discharge instructions? yes Do you have any questions about your discharge instructions? no Were you given any prescriptions at discharge? yes Were you able to get your prescriptions filled? yes Do you understand how to take your medications as ordered? yes Do you have any questions about your follow up appointment and do you plan to keep your follow up appointment? no questions, follow up 06/19/23 with PCP Is there anything else that you would like to discuss? no Questions/Comments/Concerns/Other:
== END 2023-06-11 11:58 | disposition home or self-care (01) ==
LOC: ER 17:32 → MS 18:20
PROVIDERS: Family Medicine; Admitting Provider Family Medicine; Emergency Provider Emergency Medicine; PCP Family Medicine; Visit Provider Internal Medicine
DX: M54.2 Cervicalgia (principal); R51.9 Headache, unspecified; E86.0 Dehydration; E83.42 Hypomagnesemia; E83.51 Hypocalcemia; M62.81 Muscle weakness (generalized); I10 Essential (primary) hypertension; K21.9 Gastro-esophageal reflux disease without esophagitis; R07.9 Chest pain, unspecified; R79.89 Other specified abnormal findings of blood chemistry; M79.602 Pain in left arm; M79.601 Pain in right arm; G89.29 Other chronic pain; Z79.899 Other long term (current) drug therapy
CPT/HCPCS: 36415; 70450; 72040; 72141; 80048; 80053; 80307; 81001; 83735; 84443; 85025; 93005; 96361; 96372; 96374; 96375; 96376; 99285; G0378; J1170; J2930; Q3014

== ENCOUNTER 2023-06-13 10:38 | Emergency (ER) | payer OTHER, SELFPAY ==
[2023-06-13 10:44] VITALS: BP 162/80; PULSE 76; RESP 20; TEMP 36.6; O2SAT 100; BMI 36.9
--- NOTE | 2023-06-13 10:55 | CT_ITS ---
The [address] [address] Patient Name: JAREK FIELD MRN: [id number] date: 1990 Sex: F Assigned Patient Location: ER Current Patient Location: ER Accession/Order Number: [id number] Exam Date: 06/13/2023 11:00 Report Date: 06/13/2023 11:25 At the request of: TJ GOODMAN Procedure: CT stroke head/brain wo con HEAD CT WITHOUT CONTRAST: 06/13/2023 11:00 AM EDT Clinical Data: facial paresthesia on the left Comparison: No previous Unenhanced axial data from base to vertex. INTRA-AXIAL: No acute hemorrhage. No acute infarction is evident. EXTRA-AXIAL: No acute hemorrhage. No focal fluid collection. BRAIN VOLUME: Unremarkable for age. VENTRICLES: No hydrocephalus PARANASAL SINUSES: No air-fluid levels in the included aspects. MASTOIDS: Clear. CALVARIUM: No acute finding. EXTRACALVARIAL: No acute findings CT/CT stroke head/brain wo con IMPRESSION: 1. No evidence of acute intracranial process on this unenhanced study as described. All CT scans at this facility use dose modulation, iterative reconstruction, and/or weight based dosing when appropriate to reduce radiation dose to as low as reasonably achievable. Electronically authenticated by: RADHA PERDOMO Date: 06/13/2023 11:25
--- NOTE | 2023-06-13 10:55 | ECG_ITS ---
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
--- NOTE | 2023-06-13 10:57 | CT_ITS ---
The [address] [address] Patient Name: JAREK FIELD MRN: [id number] date: 1990 Sex: F Assigned Patient Location: ER Current Patient Location: ER Accession/Order Number: [id number] Exam Date: 06/13/2023 11:00 Report Date: 06/13/2023 11:30 At the request of: TJ GOODMAN Procedure: CT cervical spine wo con CERVICAL SPINE CT WITHOUT CONTRAST: 06/13/2023 11:00 AM EDT Clinical History:paresthesia left shoulder Comparison: None available . Unenhanced helically acquired data per protocol. PREVERTEBRAL/PARASPINAL: No focal soft tissue prominence or obvious fluid collection in these regions. ALIGNMENT: Unremarkable No evidence of acute fracture or dislocation Developmentally the cervical spinal canal is probably slightly greater than average in size. Cervical disc space heights appear fairly well maintained. Minimal spondylosis at a few levels. At unenhanced CT, no distinct evidence of cervical HNP. At unenhanced CT no obvious central stenosis in the cervical region Left C4 foramen is mildly narrowed by asymmetric uncovertebral overgrowth. OTHER SOFT TISSUES: Partially calcified exophytic focus off the anterior aspects right lobe of thyroid. This measures 9.[address]/CT cervical spine wo con IMPRESSION: 1. No evidence of acute fracture or dislocation. 2. At unenhanced CT no distinct evidence of acquired central stenosis or HNP in the cervical region. However, if desired, much greater anatomic detail this regard with MRI or CT myelography if there are no contraindications. 3. Nonspecific focus right lobe of thyroid. Follow-up thyroid ultrasound All CT scans at this facility use dose modulation, iterative reconstruction, and/or weight based dosing when appropriate to reduce radiation dose to as low as reasonably achievable. Electronically authenticated by: RADHA PERDOMO Date: 06/13/2023 11:30
--- NOTE | 2023-06-13 10:57 | ED.NEUROSD1 ---
HPI - Neuro Symptoms/Deficit General Chief Complaint: Neuro Symptoms/Deficit Stated Complaint: GENERAL WEAKNESS Time Seen by Provider: 06/13/23 10:45 Source: patient Mode of arrival: walk-in Limitations: no limitations History of Present Illness HPI Narrative: 32-year-old female presents to the emergency department for tingling to both sides of her face and her left thigh feels numb and her left posterior shoulder area feels numb as well. She has some mild left posterior headache. No trauma. She was sitting at work on the computer when this started 20-40 minutes ago. Related Data Home Medications Medication Instructions Recorded Confirmed acebutolol 200 mg capsule 200 mg PO BID 06/09/23 06/09/23 bupropion HCl 300 mg 24 hr tablet, 300 mg PO DAILY 06/09/23 06/09/23 extended release oxaprozin 600 mg tablet 600 mg PO DAILY 06/09/23 06/09/23 pantoprazole 40 mg tablet,delayed 40 mg PO Q12H 06/09/23 06/09/23 release phentermine 37.5 mg capsule 37.5 mg PO DAILY 06/09/23 06/09/23 tizanidine 4 mg tablet 8 mg PO BEDTIME 06/09/23 06/09/23 trazodone 50 mg tablet 50 mg PO BEDTIME 06/09/23 06/09/23 triamterene 75 1 tab PO DAILY 06/09/23 06/09/23 mg-hydrochlorothiazide 50 mg tablet Previous Rx's Medication Instructions Recorded tizanidine 4 mg tablet 4 mg PO TID #30 tabs 06/11/23 Allergies Allergy/AdvReac Type Severity Reaction Status Date / Time irbesartan Allergy Severe Verified 06/09/23 14:47 silver Allergy Severe Hives Verified 06/09/23 14:47 Review of Systems ROS Narrative A ten point review of systems is negative except as noted above. PFSH PFSH Social History Smoking status: Never smoker Exam Narrative Exam Narrative: Nurses note and vital signs reviewed and patient is not hypoxic. General: The patient appears well and in no apparent distress. Patient is resting comfortably on cart. Skin: Warm, dry, no pallor noted. There is no rash noted. Head: Normocephalic, atraumatic Eye: Normal conjunctiva, no drainage, EOMI. PERRL Ears, Nose, Mouth, and Throat: oral mucosa is moist. Nares patent. Cardiovascular: Regular Rate and Rhythm Respiratory: Patient is in no distress, no accessory muscle use, lungs are clear to auscultation, no wheezing, rales or rhonchi Back: non-tender, no CVA tenderness bilaterally to percussion. GI: Normal bowel sounds, no tenderness to palpation, no masses appreciated. No rebound, guarding, or rigidity noted. Musculoskeletal: The patient has no evidence of calf tenderness, no pitting edema, symmetrical pulses noted bilaterally Neurological: A&O x4, normal speech; cranial nerves II through XII are intact. Upper and lower extremity strength is symmetric. Psychiatric: Cooperative Constitutional Vital Signs, click to edit/add: Last Vital Signs Temp 97.9 F 06/13/23 10:44 Pulse 76 06/13/23 10:44 Resp 20 06/13/23 10:44 BP 162/80 H 06/13/23 10:44 Pulse Ox 100 06/13/23 10:44 O2 Del Method Room Air 06/13/23 10:44 Course Vital Signs Vital signs: Vital Signs Temperature 97.9 F 06/13/23 10:44 Pulse Rate 76 06/13/23 10:44 Respiratory Rate 20 06/13/23 10:44 Blood Pressure 162/80 H 06/13/23 10:44 Pulse Oximetry 100 06/13/23 10:44 Oxygen Delivery Method Room Air 06/13/23 10:44 Temperature 97.9 F 06/13/23 10:44 Pulse Rate 76 06/13/23 10:44 Respiratory Rate 20 06/13/23 10:44 Blood Pressure 162/80 H 06/13/23 10:44 Pulse Oximetry 100 06/13/23 10:44 Oxygen Delivery Method Room Air 06/13/23 10:44 MDM - Neuro Symptoms/Deficit MDM Narrative Medical decision making narrative: The patient's workup here in the emergency department is negative. Case discussed with her PCP, Dr. Brooke. We have agreed that the patient will be discharged home and further workup will be done as an outpatient. Cause uncertain. Treatment diagnosis and follow-up were discussed with the patient and her mother. Differential Diagnosis Differential diagnosis: Likely other (CVA, MS, peripheral neuropathy, intracranial hemorrhage) Lab Data Attestation: I reviewed the patient's lab results. Labs: Lab Results 10/19/23 Range/Units 11:04 WBC 8.2 (4.0-11.0) 10^3/uL RBC 4.62 (4.20-5.40) 10^6/uL Hgb 12.8 (12.0-16.0) g/dL Hct 39.9 (36.0-48.0) % MCV 86.4 (81.0-99.0) fL MCH 27.7 (26.7-34.0) pg MCHC 32.1 (29.9-35.2) g/dL RDW 14.6 (11.0-15.0) % Plt Count 300 (150-450) 10^3/uL MPV 9.3 L (9.5-13.5) fL Neut % (Auto) 73.4 (43.0-75.0) % Lymph % (Auto) 17.3 L (20.5-60.0) % [place] % (Auto) 6.2 (1.7-12.0) % Eos % (Auto) 1.7 (0.9-7.0) % Baso % (Auto) 1.0 (0.2-2.0) % Neut # (Auto) 6.0 (1.4-6.5) 10^3/uL Lymph # (Auto) 1.4 (1.2-3.8) 10^3/uL [place] # (Auto) 0.5 (0.3-0.8) 10^3/uL Eos # (Auto) 0.1 (0.0-0.7) 10^3/uL Baso # (Auto) 0.1 (0.0-0.1) 10^3/uL Abs Immat Gran (auto) 0.03 (0.00-0.03) 10^3/uL Imm/Tot Granulo (auto) 0.4 (0.0-0.5) % Sodium 136 (136-145) mmol/L Potassium 3.9 (3.5-5.1) mmol/L Chloride 97 L (98-107) mmol/L Carbon Dioxide 29.0 (21.0-32.0) mmol/L Anion Gap 13.9 BUN 11.0 (7.0-18.0) mg/dL Creatinine 1.28 H (0.55-1.02) mg/dL Est GFR ( Amer) 59 L (>=60) Est GFR (Non-Af Amer) 48 L (>=60) BUN/Creatinine Ratio 8.6 Glucose 90 (74-106) mg/dL Calcium 9.0 (8.5-10.1) mg/dL Serum HCG, Qual Negative (NEGATIVE) Imaging Data CT brain, CT C-spine: Radiologist's impression: Procedure: CT cervical spine wo con CERVICAL SPINE CT WITHOUT CONTRAST: 06/13/2023 11:00 AM EDT Clinical History:paresthesia left shoulder Comparison: None available . Unenhanced helically acquired data per protocol. PREVERTEBRAL/PARASPINAL: No focal soft tissue prominence or obvious fluid collection in these regions. ALIGNMENT: Unremarkable No evidence of acute fracture or dislocation Developmentally the cervical spinal canal is probably slightly greater than average in size. Cervical disc space heights appear fairly well maintained. Minimal spondylosis at a few levels. At unenhanced CT, no distinct evidence of cervical HNP. At unenhanced CT no obvious central stenosis in the cervical region Left C4 foramen is mildly narrowed by asymmetric uncovertebral overgrowth. OTHER SOFT TISSUES: Partially calcified exophytic focus off the anterior aspects right lobe of thyroid. This measures 9.5 mm. IMPRESSION: 1. No evidence of acute fracture or dislocation. 2. At unenhanced CT no distinct evidence of acquired central stenosis or HNP in the cervical region. However, if desired, much greater anatomic detail this regard with MRI or CT myelography if there are no contraindications. 3. Nonspecific focus right lobe of thyroid. Follow-up thyroid ultrasound All CT scans at this facility use dose modulation, iterative reconstruction, and/or weight based dosing when appropriate to reduce radiation dose to as low as reasonably achievable. Electronically authenticated by: RADHA PERDOMO Date: 06/13/2023 11:30 Procedure: CT stroke head/brain wo con HEAD CT WITHOUT CONTRAST: 06/13/2023 11:00 AM EDT Clinical Data: facial paresthesia on the left Comparison: No previous Unenhanced axial data from base to vertex. INTRA-AXIAL: No acute hemorrhage. No acute infarction is evident. EXTRA-AXIAL: No acute hemorrhage. No focal fluid collection. BRAIN VOLUME: Unremarkable for age. VENTRICLES: No hydrocephalus PARANASAL SINUSES: No air-fluid levels in the included aspects. MASTOIDS: Clear. CALVARIUM: No acute finding. EXTRACALVARIAL: No acute findings IMPRESSION: 1. No evidence of acute intracranial process on this unenhanced study as described. All CT scans at this facility use dose modulation, iterative reconstruction, and/or weight based dosing when appropriate to reduce radiation dose to as low as reasonably achievable. Electronically authenticated by: RADHA CONOR Date: 06/13/2023 11:25 Discharge Plan Discharge Chief Complaint: Neuro Symptoms/Deficit Clinical Impression: Paresthesia Patient Disposition: Home, Self-Care Time of Disposition Decision: 13:38 Condition: Good Mode of Transportation: Private Vehicle Prescriptions / Home Meds: No Action acebutolol 200 mg capsule 200 mg PO BID bupropion HCl 300 mg tablet extended release 24 hr 300 mg PO DAILY oxaprozin 600 mg tablet 600 mg PO DAILY pantoprazole 40 mg tablet,delayed release (DR/EC) 40 mg PO Q12H phentermine 37.5 mg capsule 37.5 mg PO DAILY tizanidine 4 mg tablet 8 mg PO BEDTIME trazodone 50 mg tablet 50 mg PO BEDTIME triamterene-hydrochlorothiazid 75-50 mg tablet 1 tab PO DAILY tizanidine 4 mg tablet 4 mg PO TID Qty: 30 0RF Rx Instructions: 1 po TID or 1 in am and 2 at hs Instructions: Paresthesia (ED) Additional Instructions: Follow-up with Dr. Brooke Stand Alone Forms: Portal Instructions Referrals: Felipe Brooke MD [Primary Care Provider] - 1 week
[2023-06-13 11:22] LABS: Basophils Absolute Auto 0.1 10^3/uL (0.0-0.1); Eosinophils Absolute Auto 0.1 10^3/uL (0.0-0.7); Eosinophils Percent Auto 1.7 % (0.9-7.0); Hematocrit 39.9 % (36.0-48.0); Hemoglobin 12.8 g/dL (12.0-16.0); Immature Granulocytes Abs Auto 0.03 10^3/uL (0.00-0.03); Immature Granulocytes Pct Auto 0.4 % (0.0-0.5); Lymphocytes Absolute Auto 1.4 10^3/uL (1.2-3.8); Lymphocytes Percent Auto 17.3 % (20.5-60.0); Mean Corpuscular HGB Conc 32.1 g/dL (29.9-35.2); Mean Corpuscular Hemoglobin 27.7 pg (26.7-34.0); Mean Corpuscular Volume 86.4 fL (81.0-99.0); Mean Platelet Volume 9.3 fL (9.5-13.5); Monocytes Absolute Auto 0.5 10^3/uL (0.3-0.8); Monocytes Percent Auto 6.2 % (1.7-12.0); Neutrophils Percent Auto 73.4 % (43.0-75.0); Platelet Count 300 10^3/uL (150-450); Red Blood Count 4.62 10^6/uL (4.20-5.40); Red Cell Distribution Width 14.6 % (11.0-15.0); White Blood Count 8.2 10^3/uL (4.0-11.0)
[2023-06-13 11:24] LABS: Anion Gap 13.9; BUN Creatinine Ratio 8.6; Chloride 97 mmol/L (98-107); Estimated GFR (African America 59 (>=60); Estimated GFR (Non-African Ame 48 (>=60); Glucose 90 mg/dL (74-106); Potassium 3.9 mmol/L (3.5-5.1); Sodium 136 mmol/L (136-145)
[2023-06-13 11:41] LABS: HCG Qualitative NEGATIVE (NEGATIVE)
[2023-06-13] MEDS: KETOROLAC TROMETHAMINE 30 MG/ML VIAL IVP (11:42)
[2023-06-13] MEDS: MORPHINE SULFATE 4 MG/ML VIAL IV (12:52)
== END 2023-06-13 13:49 | disposition home or self-care (01) ==
PROVIDERS: Emergency Provider Emergency Medicine; PCP Family Medicine
DX: R20.2 Paresthesia of skin (principal); Z79.899 Other long term (current) drug therapy
CPT/HCPCS: 36415; 70450; 72125; 80048; 84703; 85025; 93005; 96374; 96375; 99285

== ENCOUNTER 2023-06-26 13:40 | Outpatient (OUT) | payer OTHER, SELFPAY ==
--- NOTE | 2023-06-26 13:49 | MR_ITS ---
[address] [address] Patient Name: JAREK FIELD MRN: [id number] date: 1990 Sex: F Assigned Patient Location: MRI Current Patient Location: MRI Accession/Order Number: [id number] Exam Date: 06/26/2023 13:58 Report Date: 06/26/2023 15:22 At the request of: DONNELL ALLEN Procedure: MR head/brain wo/w con EXAM: MR head/brain wo/w con CLINICAL INDICATION: Paresthesia R20.2 COMPARISON: CT head 06/13/2023. TECHNIQUE/PROTOCOL: Standard pre and postcontrast protocol brain MRI performed (Sagittal T1 with axial T1, T2, GRE, FLAIR, and diffusion-weighted imaging). CONTRAST: 20 mL of Dotarem. FINDINGS: No restricted diffusion, extra-axial fluid collection, hydrocephalus, midline shift, or other mass effect. Intracranial flow voids are maintained. Normal midline structures. No abnormal parenchymal, leptomeningeal, or dural enhancement. Normal marrow signal. No soft tissue abnormalities. Paranasal sinuses and mastoid air cells are well-aerated. MR/MR head/brain wo/w con IMPRESSION: No acute intracranial process, recent infarction, or abnormal enhancement. Electronically authenticated by: RAUL BHATTI Date: 06/26/2023 15:22
--- NOTE | 2023-06-26 13:49 | US_ITS ---
The [address] [address] Patient Name: JAREK FIELD MRN: [id number] date: 1990 Sex: F Assigned Patient Location: MRI Current Patient Location: MRI Accession/Order Number: [id number] Exam Date: 06/26/2023 14:30 Report Date: 06/26/2023 16:58 At the request of: DONNELL ALLEN Procedure: US thyroid EXAMINATION: US thyroid HISTORY: Enlarged Thyroid E04.9 COMPARISON: No relevant comparison available. TECHNIQUE: Sonographic images of the thyroid gland were obtained. FINDINGS: Excellent right thyroid lobe measures 3.8 x 1.3 x 1.7 cm. Single nodule. Nodule 1:1.0 x 0.9 x 0.6 cm. Solid, hyperechoic, wide, smooth margins, punctate calcifications. TR 4 The thyroid isthmus measures 2 mm, no focal nodule The left thyroid lobe measures 4.5 x 1.3 x 2.0 cm. Single 7 mm TR 2 nodule US/US thyroid IMPRESSION: 1 cm right thyroid TR 4 nodule. 1 year follow-up recommended TI-RADS: The [employer] TI-RADS committee's white paper recommendations for thyroid lesions classified as TR4 (moderately suspicious) are listed below: > 1.0 cm. Follow-up ultrasound in 1, 2, 3, and 5 years. > 1.5 cm. FNA. J. Am Jamie Radiol 2017;14:[id number]. Electronically authenticated by: THOM ANGELA Date: 06/26/2023 16:58
== END 2023-06-26 13:41 | disposition home or self-care (01) ==
LOC: MRI 13:40
PROVIDERS: PCP Family Medicine; Visit Provider Family Medicine
DX: R20.2 Paresthesia of skin (principal); E04.9 Nontoxic goiter, unspecified
CPT/HCPCS: 70553; 76536; A9575

== ENCOUNTER 2023-07-03 15:45 | Outpatient (OUT) | payer OTHER, SELFPAY ==
--- NOTE | 2023-07-03 15:47 | CA_ITS ---
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1990 Requested By: DONNELL ALLEN Order Number: [id number] Reading MD: HAWA BREEN Interpretive Statements Predominant rhythm is sinus with average rate of 77 bpm Tachycardia - max rate of 125 bpm - 1 episode of PSVT w/ duration of 3 beats - longest episode of 36min 43sec with rates between 114-124 bpm Bradycardia - min rate of 45 bpm - longest episode of 13min 9sec with rates between 51-56 bpm Ventricular ectopy - 16 PVC Patient triggered events: 16 - associated with symptoms of dizziness, palpitations, chest pain and SOB - associated with rates of 107 and remainder NSR IMpression: Predominant rhythm is sinus with average rate of 77 bpm Fastest rate of 125 bpm and slowest rate of 45 bpm 16 PVC No atrial fibrillation No blocks or pauses Electronically Signed On 07-21-2023 12:10:42 EST by HAWA BREEN
== END 2023-07-03 15:46 | disposition home or self-care (01) ==
LOC: CARD 15:46
PROVIDERS: PCP Family Medicine; Visit Provider Family Medicine
DX: R00.2 Palpitations (principal)
CPT/HCPCS: 93246

== ENCOUNTER 2023-07-15 09:19 | Outpatient (OUT) | payer OTHER, SELFPAY ==
--- NOTE | 2023-07-15 09:28 | CT_ITS ---
The [address] [address] Patient Name: JAREK FIELD MRN: [id number] date: 1990 Sex: F Assigned Patient Location: CT Current Patient Location: CT Accession/Order Number: [id number] Exam Date: 07/15/2023 09:32 Report Date: 07/15/2023 10:42 At the request of: DONNELL ALLEN Procedure: CT soft tissue neck w con CT soft tissue neck w con, 07/15/2023 9:32 AM EST INDICATION: Neck Mass R22.1 COMPARISON: There is no appropriate prior study for comparison. TECHNIQUE: CT imaging of the neck were acquired with contrast. Supplemental 2D reformatted images were generated and reviewed as needed. Dose reduction techniques were achieved by using automated exposure control and/or adjustment of mA and/or kV according to patient size and/or use of iterative reconstruction technique. FINDINGS: No abnormality of the base of skull is noted. The nasopharynx, oropharynx, hypopharynx and oral cavity are unremarkable. The parotids, submandibular glands are unremarkable. The larynx is unremarkable. No abnormality of paraglottic fat is noted. There is no lymph node enlargement by size criteria. No retropharyngeal lymph node is noted. The thyroid gland is heterogeneous containing calcification in the right lobe. The visualized portions of lungs are unremarkable. There is no suspicious osteolytic or osteoblastic lesion. CT/CT soft tissue neck w con IMPRESSION: No significant abnormality is noted. No definite mass below the marker. Please note that subcutaneous fat may appear as palpable mass. Electronically authenticated by: SAM MARTINI Date: 07/15/2023 10:42
== END 2023-07-15 09:20 | disposition home or self-care (01) ==
LOC: CT 09:19
PROVIDERS: PCP Family Medicine; Visit Provider Family Medicine
DX: R22.1 Localized swelling, mass and lump, neck (principal)
CPT/HCPCS: 70491; Q9967

== ENCOUNTER 2023-11-11 22:36 | Emergency (ER) | payer OTHER, SELFPAY ==
[2023-11-11 22:42] VITALS: BP 175/77; PULSE 77; RESP 18; TEMP 36.8; O2SAT 98; BMI 42.5
--- OUTSIDE RECORDS SUMMARY | 2023-11-11 22:44 | XMS_ITS | CCD ---
Author Name Unknown Address [address] [place] [address] Organization [facility] Care Team Providers Care Security Police Officer Name Role Phone Donnell Brooke Primary Care Physician MD Bonnie Jeffrey Attending Provider [phone] MD Donnell Brooke Primary Care Provider [phone] Donnell Duran Referring Unavailabl e NILL, Sanjay Gibbons Attending Unavailable NILL, Sanjay Gibbons Attending Unavailable NILL, Sanjay Gibbons Attending Unavailable NILL, Sanjay Gibbons Attending Unavailable Hoy PROVIDERDonnell Referring Unavailabl e NILL, Sanjay Gibbons Attending Unavailable Bonnie Jeffrey Unavailable MD Bonnie Jeffrey Attending Provider MD Donnell Brooke Primary Care Provider [phone] MARTHAY ., DR JACOBO Primary Care Unavailable HOY ., DR JACOBO Admitting Unavailable HOY ., DR JACOBO Attending Unavailable HOY ., DR JACOBO Primary Care Unavailable NILL ., DR GRACE Admitting Unavailable NILL ., DR GARCE Consulting Unavailable NILL ., DR GRACE Attending Unavailable NILL ., DR GRACE Consulting Unavailable NILL ., DR GRACE Attending Unavailable HOY ., DR JACOBO Primary Care Unavailable NILL ., DR GRACE Admitting Unavailable CHENG MARQUEZ Consulting Unavailable CHINO DUFFY Consulting Unavailable HOY ., DR JACOBO Attending Unavailable HOY ., DR AJCOBO Primary Care Unavailable HOY ., DR JACOBO Consulting Unavailable HOY ., DR JACOBO Admitting Unavailable HOY ., DR JACOBO Attending Unavailable HOY ., DR JACOBO Primary Care Unavailable HOY ., DR JACOBO Consulting Unavailable HOY ., DR JACOBO Admitting Unavailable HOY ., DR JACOBO Primary Care Unavailable HOY ., DR JACOBO Consulting Unavailable HOY ., DR JACOBO Attending Unavailable HOY ., DR JACOBO Admitting Unavailable HOY ., DR JACOBO Attending Unavailable HOY ., DR JACOBO Primary Care Unavailable HOY ., DR JACOBO Consulting Unavailable HOY ., DR JACOBO Admitting Unavailable WEST, DR THOM Bland Consulting Unavailable HOY ., DR JACOBO Attending Unavailable HOY ., DR JACOBO Primary Care Unavailable HOY ., DR JACOBO Admitting Unavailable HOY ., DR JACOBO Consulting Unavailable WEST, DR THOM Bland Consulting Unavailable HOY ., DR JACOBO Attending Unavailable HOY ., DR JACOBO Consulting Unavailable HOY ., DR JACOBO Primary Care Unavailable HOY ., DR JACOBO Admitting Unavailable HOY ., DR JACOBO Attending Unavailable HOY ., DR JACOBO Primary Care Unavailable HOY ., DR JACOBO Admitting Unavailable HOY ., DR JACOBO Primary Care Unavailable DIAB ., SOHAIL Admitting Unavailable DIAB ., SOHAIL Attending Unavailable REINECK, DR SUJEY Anthony Consulting Unavailabl e ZIEBLISA, DR MYAH Gibbons Consulting Unavailable DIAB ., SOHAIL Consulting Unavailable MARKER ., DR VEGA Admitting Unavailable MARKER ., DR VEGA Consulting Unavailable HOY ., DR JACOBO Primary Care Unavailable MARKER ., DR VEGA Attending Unavailable Calvey, Bonnie R Attending Unavailable Calvey, Bonnie R Admitting Unavailable Hoy, Donnell M Primary Care Unavailable Calvey, Bonnie R Admitting Unavailable Calvey, Bonnie R Attending Unavailable Hoy, Donnell M Primary Care Unavailable Calvey, Bonnie R Admitting Unavailable Calvey, Bonnie R Attending Unavailable Hoy, Donnell M Primary Care Unavailable Calvey, Bonnie R Admitting Unavailable Calvey, Bonnie R Attending Unavailable Hoy, Donnell M Primary Care Unavailable Allergies Allergy Classification Reported Allergen(s) Allergy Type Date of Onset Reaction(s) Facility (3 sources) Morphine; Translations: [morphine] Drug Allergy 3 Chest pain (finding) [facility] (14 sources) SILVER; Translations: [SILVER] Allergy to substance 4 INFECTION, Edema, silver wound pack reversed healing [facility] (4 sources) irbesartan; Translations: [irbesartan] Drug Allergy 3 Unknown Reaction [facility] (1 source) MORPHINE SUBSTITUTE; Translations: [MORPHINE SUBSTITUTE] Propensity to adverse reactions (disorder) [facility] (1 source) Morphine Drug Allergy [facility] Medications Current Medications Medication Drug Class(es) Dates Sig (Normalized) Sig (Original) acebutolol 200 mg oral capsule (11 sources) beta-Adrenergic Ana Start: 09-26-2022 take 200 mg by mouth twice daily Acebutolol Active 200 MG PO Twice daily September 26, 2022 1:00am Start: 07-27-2022 take 1 capsule by mo ut twice daily acebutolol 200 mg Cap 200 mg = 1 cap(s), Oral, BID, Refills(s) 0 Start Date: 07/27/22 Status: Ordered take 1 capsule by mo [facility] every twenty-four hours Acebutolol HCl 200 MG 1 capsule Orally Once a day Active acetaminophen 300 mg / codeine phosphate 30 mg oral tablet (5 sources) Opioid Agonist Start: 10-09-2022 take 1-2 tablets by mouth every six hours as needed Acetaminophen-Codeine #3 300-30 MG 1-2 tablet as needed Orally every 6 hrs for 7 days Sep, Active acetaminophen 325 mg / HYDROcodone bitartrate 5 mg oral tablet (3 sources) Opioid Agonist Start: 09-28-2022 take 1 tablet by mouth every four to six hours Hydrocodone-Acetaminophen Active 1 - 2 TAB PO EVERY 4-6 HOURS 30 4 September 28, 2022 Start: 09-26-2022 take 1 tablet by alo th every six hours Hydrocodone-Acetaminophen Active 1 TAB P O Q6H September 26, 2022 1:00am 24 hr buPROPion hydrochloride 300 mg extended release oral tablet (11 sources) Aminoketone Start: 09-26-2022 take 300 mg by mouth once daily in the morning Bupropion Hcl Active 300 MG PO Every morning September 26, 2022 1:00am Start: 07-27-2022 take 1 tablet by alo th once daily Wellbutrin XL 300 mg/24 hours Tab-ER 300 mg = 1 tab(s), Oral, Daily, Refills(s) 0 Start Date: 07/27/22 Status: Ordered take 1 tablet by alo th every twenty-four hours buPROPion HCl ER (SR) 100 MG 1 tablet in the morning Orally Once a day Active doxycycline hyclate 100 mg oral tablet (1 source) Tetracycline-class Drug Start: 09-28-2022 take 100 mg by mouth twice daily Doxycycline Hyclate Active 100 MG PO Twice daily 10 5 September 28, 2022 1:00am hydroCHLOROthiazide 50 mg / triamterene 75 mg oral tablet (11 sources) Potassium-sparing Diuretic, Thiazide Diuretic Start: 07-27-2022 take 1 tablet by mouth once daily in the morning Triamterene-[place] chlorothiazid Active 1 TAB PO Every morning September 26, 2022 1:00am levonorgestrel 0.872326 mg/hr intrauterine system (2 sources) Progestin, Progestin-containing Intrauterine Device Start: 09-26-2022 Levonorgestrel (Mirena) 20 mcg/24 hours (8 yrs) 52 mg Intrauterine Device Active 20 MCG INTRAUTERI Daily September 26, 2022 1:00am losartan potassium 25 mg oral tablet (1 source) Angiotensin 2 Receptor Ana Start: 07-27-2022 take 1 tablet by mouth once daily losartan 25 mg Tab 25 mg = 1 tab(s), Oral, Daily, Refills(s) 0 Start Date: 07/27/22 Status: Ordered ondansetron 4 mg oral tablet (5 sources) Serotonin-3 Receptor Antagonist Start: 10-02-2022 take 1 tablet by mouth every eight hours as needed Ondansetron HCl 4 MG 1 tablet Orally every 8 hours prn for 7 days Sep, Active oxaprozin 600 mg oral tablet (11 sources) Nonsteroidal Anti-inflammatory Drug Start: 09-26-2022 take 1200 mg by mouth once daily at bedtime Oxaprozin Active 1200 MG PO Daily at bedtime September 26, 2022 1:00am Start: 07-27-2022 take 2 tablets by mo [facility] once daily oxaprozin 600 mg Tab 1,200 mg = 2 tab(s), Oral, Daily, Refills(s) 0 Start Date: 07/27/22 Status: Ordered pantoprazole 40 mg delayed release oral tablet (11 sources) Proton Pump Inhibitor Start: 09-26-2022 take 40 mg by mouth twice daily Pantoprazole Active 40 MG PO Twice daily September 26, 2022 1:00am Start: 07-30-2022 take 1 tablet by [facility] twice daily Pantoprazole [address] Tab 40 mg = 1 tab(s), Oral, BID, Refills(s) 0 Start Date: 07/30/22 Status: Ordered take 1 tablet by alo th every twenty-four hours Pantoprazole Sodium 40 MG 1 tablet Orally Once a day Active QUEtiapine 100 mg oral tablet (11 sources) Atypical Antipsychotic Start: 09-26-2022 take 100 mg by mouth once daily at bedtime Quetiapine Active 100 MG PO Daily at bedtime September 26, 2022 1:00am Start: 07-27-2022 SEROquel 100 m g Tab 150 mg = 1.5 tab(s), Oral, Bedtime, Refills(s) 0 Start Date: 07/27/22 Status: Ordered sucralfate 1000 mg oral tablet (10 sources) Aluminum Complex Start: 09-26-2022 take 1 g by mouth four times daily Sucralfate Active 1 GM PO Four times daily September 26, 2022 1:00am take 1 tablet by alo th every twelve hours Sucralfate 1 GM 1 tablet on an empty stomach Orally Twice a day Active take 1 tablet by mouth twice mesha ly Sucralfate 1 GM 1 tablet on an empty stomach Orally Twice a day Active tiZANidine 4 mg oral tablet (11 sources) Central alpha-2 Adrenergic Agonist Start: 09-26-2022 take 4-8 mg by mouth once daily at bedtime Tizanidine Active 4 - 8 MG PO Daily at bedtime September 26, 2022 1:00am Start: 07-27-2022 take 2 tablets by mo [facility] at bedtime tiZANidine 4 mg Tab 8 mg = 2 tab(s), Oral, Bedtime, Refills(s) 0 Start Date: 07/27/22 Status: Ordered take 1 capsule by mo ut every eight hours tiZANidine HCl 4 MG 1 capsule as needed Orally Three times a day Active Problems Active Problems Problem Classification Problem Date Documented Da te Episodic/Chronic Abdominal pain (8 sources) Epigastric pain; Translations: [Right upper quadrant pain] Onset: 07-09-2022 Episodic Biliary tract disease (1 source) Calculus of gallbladder without cholecystitis without obstruction; Translations: [CALCU GB W/O CHOLECYST W/O OBST] Onset: 09-18-2022 Episodic Congestive heart failure; nonhypertensive (1 source) Unspecified diastolic (congestive) heart failure; Translations: [UNSPECIFIED DIASTOLIC HEART FAILURE] Onset: 07-05-2022 Chronic Crushing injury or internal injury (7 sources) Crushing injury of right thumb, initial encounter; Translations: [Crushing injury of right thumb, subsequent encounter] Episodic Disorders of lipid metabolism (2 sources) Hypercholesterolemia ; Translations: [Pure hypercholesterolemia , unspecified] Onset: 09-18-2022 07-27-2022 Chronic E Codes: Other specified and classifiable (1 source) Caught, crushed, jammed, or pinched between moving objects, initial encounter; Translations: [CAUGHT CRUSH/PINCH BTWN MOV OBJ INT] Onset: 09-27-2022 Episodic Esophageal disorders (1 source) Gastro-esophageal reflux disease without esophagitis; Translations: [GERD WITHOUT ESOPHAGITIS] Onset: 09-18-2022 Chronic Essential hypertension (3 sources) Hypertensive disorder; Translations: [Essential (primary) hypertension] Onset: 09-18-2022 03-24-2013 Chronic Fracture of upper limb (3 sources) Fracture of phalanx of finger; Translations: [Fracture of unspecified phalanx of unspecified finger, initial encounter for closed fracture] Onset: 09-27-2022 09-28-2022 Episodic Gastritis and duodenitis (1 source) Unspecified chronic gastritis without bleeding; Translations: [UNS CHRONIC GASTRITIS W/O BLEEDING] Onset: 09-18-2022 Chronic Headache; including migraine (1 source) Migraine 07-27-2022 Chronic Hypertension with complications and secondary hypertension (1 source) Hypertensive heart disease with heart failure; Translations: [HTN HEART DISEASE W/HEART FAIL] Onset: 07-05-2022 Chronic Open wounds of extremities (2 sources) Laceration of nail bed of finger ; Translations: [Laceration without foreign body of unspecified finger with damage to nail, initial encounter] Onset: 09-28-2022 09-28-2022 Episodic Other aftercare (1 source) Other watermaster (current) drug therapy; Translations: [OTH MEMBERSHIP COUNSELOR CURRENT DRUG THERAPY] Onset: 09-18-2022 Episodic Other connective tissue disease (1 source) Plantar fasciitis 07-27-2022 Episodic Comment on above: RIGHT FOOT Other connective tissue disease (1 source) Pain in unspecified limb; Translations: [Pain in unspecified limb] Onset: 09-28-2022 Episodic Other injuries and conditions due to external causes (3 sources) Unspecified injury of right wrist, hand and finger(s), initial encounter Episodic Other injuries and conditions due to external causes (3 sources) Other specified injuries of right wrist, hand and finger(s), initial encounter; Translations: [OTH SPEC INJ RT WRST HND FNGR INIT] Onset: 09-25-2022 Episodic Other injuries and conditions due to external causes (4 sources) Unspecified injury of right wrist, hand and finger(s), subsequent encounter Episodic Other nervous system disorders (1 source) Tarsal tunnel syndrome 07-27-2022 Chronic Comment on above: RIGHT Other nervous system disorders (1 source) Pain in limb; Translations: [Other acute postprocedural pain] 09-28-2022 Episodic Other nervous system disorders (1 source) Other acute postprocedural pain; Translations: [Other acute postprocedural pain] Onset: 09-28-2022 Episodic Other nutritional; endocrine; and metabolic disorders (1 source) Body mass index 40+ - severely obese 07-30-2022 Chronic Other nutritional; endocrine; and metabolic disorders (1 source) Morbid obesity 07-27-2022 Chronic Other nutritional; endocrine; and metabolic disorders (1 source) Morbid (severe) obesity due to excess calories; Translations: [MORBID SEVERE OBES D/T EXCESS MITCH] Onset: 09-18-2022 Chronic Other nutritional; endocrine; and metabolic disorders (1 source) Body mass index (BMI) 40.0-44.9, adult; Translations: [BODY MASS INDEX BMI 40.0-44.9 ADULT] Onset: 09-18-2022 Chronic Other screening for suspected conditions (not mental disorders or infectious disease) (4 sources) Abnormal results of kidney function studies; Translations: [ABNORM RESULTS KIDNEY FUNCTION STDY] Onset: 10-10-2022 Episodic Other skin disorders (1 source) H/O: skin disorder 07-27-2022 Episodic Residual codes; unclassified (1 source) Insomnia 07-27-2022 Episodic Residual codes; unclassified (4 sources) Other specified postprocedural states Episodic Residual codes; unclassified (1 source) Other specified postprocedural states; Translations: [Other specified postprocedural states] Onset: 12-11-2022 Episodic Spondylosis; intervertebral disc disorders; other back problems (4 sources) Other cervical disc degeneration, unspecified cervical region; Translations: [OTH CERV DISC DEGENERATION UNS CERV] Onset: 09-11-2022 Chronic Unclassified (1 source) CONTACT W/AND (SUSP) EXPOS COVID-19; Translations: [CONTACT W/AND (SUSP) EXPOS COVID-19] Onset: 09-14-2022 Unclassified (1 source) Crushing injury of right thumb, subsequent encounter; Translations: [Crushing injury of right thumb, subsequent encounter] Onset: 11-13-2022 Unclassified (1 source) Laceration without foreign body of right thumb with damage to nail, initial encounter; Translations: [Laceration without foreign body of right thumb with damage to nail, initial encounter] Onset: 09-28-2022 Unclassified (1 source) Encounter for preprocedural laboratory examination; Translations: [Encounter for preprocedural laboratory examination] Onset: 09-26-2022 Past or Other Problems Problem Classification Problem Date Documented Date Episodic/Chronic Acute and unspecified renal failure (1 source) Acute kidney failure, unspecified; Translations: [ACUTE KIDNEY FAILURE UNSPECIFIED] Onset: 07-09-2022 Episodic Conditions associated with dizziness or vertigo (3 sources) Dizziness and giddiness; Translations: [DIZZINESS AND GIDDINESS] Onset: 06-28-2022 Episodic Fluid and electrolyte disorders (4 sources) Dehydration; Translations: [DEHYDRATION] Onset: 07-04-2022 Episodic Neoplasms of unspecified nature or uncertain behavior (1 source) Myelodysplastic syndrome, unspecified; Translations: [MYELODYSPLASTIC SYNDROME UNS] Onset: 07-05-2022 Episodic Other circulatory disease (2 sources) Orthostatic hypotension; Translations: [Orthostatic hypotension] Onset: 06-29-2022 07-27-2022 Episodic Other circulatory disease (5 sources) Hypotension, unspecified; Translations: [HYPOTENSION UNSPECIFIED] Onset: 07-02-2022 Episodic Other circulatory disease (3 sources) Orthostatic hypotension; Translations: [ORTHOSTATIC HYPOTENSION] Onset: 07-05-2022 Episodic Poisoning by other medications and drugs (1 source) Poisoning by other antihypertensive drugs, accidental (unintentional), initial encounter; Translations: [PSN OTH ANTIHYPERTENSIV RX ACC INIT] Onset: 07-02-2022 Episodic Spondylosis; intervertebral disc disorders; other back problems (5 sources) Cervical radiculopathy; Translations: [Radiculopathy, cervical region] Onset: 02-15-2022 07-27-2022 Episodic Results Test Name Value Interpretation Reference Range Facility XR hand RT min 3V*on 023 XR hand RT min 3V* [facility] Main [address] [address] XRay Report Signed Patient: Veronica Ross MR#: [id number] : 1990 Acct:[id number] Age/Sex: 32 / F ADM Date: 12/11/22 Loc: [facility] Room: Type: [facility] CLI Attending Dr: Bonnie Jeffrey MD Copies to: Bonnie Jeffrey MD Ordering Provider: Bonnie Jeffrey MD Date of Service: 12/11/22 XR/XR hand RT min 3V*: Other specified postprocedural states RIGHT HAND - 4 views REASON FOR EXAM: Follow-up right distal thumb phalanx open fracture. COMPARISON: Right hand 11/13/2022 FINDINGS: The fracture line previously identified involving the distal phalanx of the thumb is not seen on today's study. No change in alignment. Joint spaces appear maintained without bony erosions. XR/XR hand RT min 3V* IMPRESSION: NO SIGNIFICANT CHANGE IN FRACTURE FINDINGS WHEN COMPARED TO THE PRIOR STUDY. Impression dictated by: Willie Dong Jr., D.O.12/11/2022 4:55 PM Dictation Location: [place] [address] Transcribed By: [facility] 12/11/22 165 Dictated By: Willie Dong Jr, DO 12/11/22 165 Signed By: 12/11/22 1655 Normal [facility] XR hand RT min 3V*on 023 XR hand RT min 3V* [facility] Main [address] [address] XRay Report Signed Patient: Veronica Ross MR#: [id number] : 1990 Acct:[id number] Age/Sex: 32 / F ADM Date: 11/13/22 Loc: [facility] [place] Room: Type: [facility] CLI Attending Dr: Bonnie Jeffrey MD Copies to: Bonnie Jeffrey MD Ordering Provider: Bonnie Jeffrey MD Date of Service: 11/13/22 XR/XR hand RT min 3V*: Crushing injury of right thumb, subsequent encounter XR hand RT min 3V* 11/13/2022 3:49 PM SIGNS AND SYMPTOMS: Status post incision and debridement of open fracture of right thumb, follow-up PROTOCOL: Frontal, lateral, and oblique radiographs of the right hand COMPARISON: 09/25/2022 FINDINGS: Healing/healed fracture of the distal phalanx of the right thumb. There is no change in alignment. The joint spaces are preserved. No significant soft tissue swelling. XR/XR hand RT min 3V* IMPRESSION: Healing/healed fracture of the distal phalanx of the right thumb. There is no change in alignment. Impression dictated by: Kalpesh Murry M.D.11/13/2022 5:23 PM Dictation Location: [place] [address] Transcribed By: [facility] 11/13/22 1723 Dictated By: Kalpesh Murry II, MD 11/13/22 1722 Signed By: 11/13/22 1723 Normal [facility] XR hand RT min 3V* [facility] [employer] Other XR hand RT min 3V* [facility] Main [facility] [employer] Other XR hand RT min 3V* [address] [place] [address] [employer] Other XR hand RT min 3V* [place] [address] [facility] [employer] Other XR hand RT min 3V* XRay Report [employer] Other XR hand RT min 3V* Signed [employer] Other XR hand RT min 3V* Patient: Veronica Ross MR#: [id number] [place] [employer] Other XR hand RT min 3V* 7067 [employer] Other XR hand RT min 3V* : 1990 Acct:[id number] [employer] Other XR hand RT min 3V* Age/Sex: 32 / F ADM Date: 11/13/22 [employer] Other XR hand RT min 3V* Loc: [facility] Room: Type: [facility] [employer] Other XR hand RT min 3V* Attending Dr: Bonnie Jeffrey MD [employer] Other XR hand RT min 3V* Copies to: Bonnie Jeffrey MD [employer] Other XR hand RT min 3V* Ordering Provider: Bonnie Jeffrey MD [employer] Other XR hand RT min 3V* Date of Service: 11/13/22 [employer] Other XR hand RT min 3V* XR/XR hand RT min 3V*: Crushing injury of right thumb, subsequent [employer] Other XR hand RT min 3V* encounter [employer] Other XR hand RT min 3V* XR hand RT min 3V* 11/13/2022 3:49 PM [employer] Other XR hand RT min 3V* SIGNS AND SYMPTOMS: Status post incision and debridement of open fracture of right thumb, follow-up [employer] Other XR hand RT min 3V* PROTOCOL: Frontal, lateral, and oblique radiographs of the right hand [employer] Other XR hand RT min 3V* COMPARISON: 09/25/2022 [employer] Other XR hand RT min 3V* FINDINGS: [employer] Other XR hand RT min 3V* Healing/healed fracture of the distal phalanx of the right thumb. There is no change in alignment. [employer] Other XR hand RT min 3V* The joint spaces are preserved. No significant soft tissue swelling. [employer] Other XR hand RT min 3V* XR/XR hand RT min 3V* [employer] Other XR hand RT min 3V* IMPRESSION: [employer] Other XR hand RT min 3V* Impression dictated by: Kalpesh Murry M.D.11/13/2022 5:23 PM [employer] Other XR hand RT min 3V* Dictation Location: [place] [address] [employer] Other XR hand RT min 3V* Transcribed By: SHAY 11/13/22 [facility] [employer] Other XR hand RT min 3V* Dictated By: Kalpesh Murry II, MD 11/13/22 [facility] [employer] Other XR hand RT min 3V* Signed By: [employer] Other XR hand RT min 3V* 11/13/[address] [place] [address] [employer] Other PROF CHEM 8 (BAS METB)on Anion gap [Moles/Vol] 11.0 mmol/L Normal [facility] Comment on above: Performed By: #### B MP #### [facility] [address] [place] [address] [address] Shemar Armas Calcium [Mass/Vol] 8.8 mg/dL Normal 8.5-10.1 [facility] Comment on above: Performed By: #### B MP #### [facility] [address] [place] [address] [address] Shemar Armas Chloride [Moles/Vol] 100 mmol/L Normal 98-107 [facility] Comment on above: Performed By: #### B MP #### [facility] [address] [place] [address] [address] Shemar Armas CO2 [Moles/Vol] 31.5 mmol/L Normal 21.0-32.0 [facility] Comment on above: Performed By: #### B MP #### [facility] [address] [place] [address] [address] Shemar Armas Creatinine [Mass/Vol] 1.18 mg/dL Critically high 0.55-1.02 [facility] Comment on above: Performed By: #### B MP #### [facility] [address] [place] [address] [address] Shemar Armas EGFR-AF TOGOLESE >60 Normal >=60 [facility] Comment on above: Performed By: #### B MP #### [facility] [address] [place] [address] [address] Shemar Armas EGFR-NON AF TOGOLESE 53 mL/min/1.73m2 Critically low >=60 [facility] Comment on above: Performed By: #### B MP #### [facility] [address] [place] [address] [address] Shemar Armas Glucose [Mass/Vol] 89 mg/dL Normal 74-106 [facility] Comment on above: Performed By: #### B MP #### [facility] [address] [place] [address] [address] Shemar Armas Potassium [Moles/Vol] 3.5 mmol/L Normal 3.5-5.1 [facility] Comment on above: Performed By: #### B MP #### [facility] [address] [place] [address] [address] Shemar Armas Sodium [Moles/Vol] 139 mmol/L Normal 136-145 [facility] Comment on above: Performed By: #### B MP #### [facility] [address] [place] [address] [address] Shemar Armas Urea nitrogen [Mass/Vol] 11.0 mg/dL Normal 7.0-18.0 [facility] Comment on above: Performed By: #### B MP #### [facility] [address] [place] [address] [address] Shemar Armas Urea nitrogen/Creatinine [Mass ratio] 9.3 mg/mg Normal [facility] Comment on above: Performed By: #### B MP #### [facility] [address] [place] [address] [address] Shemar Armas HCG ( test) Aiden benjamin Ql (U)Ordered By: THOM DUONG on 09-28-2022 HCG ( test) Ql (U) Negative [facility] HCG,Urineon 09-28-2022 Beta HCG ( test) Ql (U) Negative Normal [facility] Comment on above: Result Comment: PERF ORMED BY: [place] [address] PATHOLOGIST RESTAURANT GREETER KWABENA MELVIN M.D. Performed By: #### U HCG #### [facility] [address] [place] [id number] [place] Albumin [Mass/volume] in Ser um or PlasmaOrdered By: Bonnie Jeffrey on 09-26-2022 Albumin [Mass/Vol] 4.0 g/dL 3.2-5.5 [facility] Basophils Auto (Bld) [#/Vol] Ordered By: Bonnie Jeffrey on 09-26-2022 Basophils (Bld) [#/Vol] 0.1 10*3/uL 0.0-0.2 [facility] Basophils/100 WBC Auto (Bld) Ordered By: Bonnie Jeffrey on 09-26-2022 Basophils/100 WBC (Bld) 1.2 % . F [facility] Complete Blood Count Auto Di ffon 09-26-2022 Basophils (Bld) [#/Vol] 0.1 10*3/uL Normal 0.0-0.2 [facility] Comment on above: Result Comment: PERF ORMED BY: [place] [address] PATHOLOGIST RESTAURANT GREETER KWABENA MELVIN M.D. Performed By: #### C BC, CMP #### [facility] [address] [place] [address] [place] Basophils/100 WBC (Bld) 1.2 % Normal . [facility] Comment on above: Performed By: #### C BC, CMP #### [facility] [address] [place] [address] [place] Eosinophils (Bld) [#/Vol] 0.1 10*3/uL Normal 0.0-0.45 [facility] Comment on above: Performed By: #### C BC, CMP #### [address] Eosinophils/100 WBC (Bld) 0.9 % Normal . [facility] Comment on above: Performed By: #### C BC, CMP #### [address] Erythrocyte distribution width (RBC) [Ratio] 13.6 % Normal 11.9-15.3 [facility] Comment on above: Performed By: #### C BC, CMP #### [address] Hematocrit (Bld) [Volume fraction] 40.2 % Normal 34.0-46.4 [facility] Comment on above: Performed By: #### C BC, CMP #### [address] Hemoglobin (Bld) [Mass/Vol] 13.3 g/dL Normal 11.8-15.4 [facility] Comment on above: Performed By: #### C BC, CMP #### [address] Lymphocytes (Bld) [#/Vol] 1.7 10*3/uL Normal 1.00-4.8 [facility] Comment on above: Performed By: #### C BC, CMP #### [address] Lymphocytes/100 WBC (Bld) 18.1 % Normal . [facility] Comment on above: Performed By: #### C BC, CMP #### [address] MCH (RBC) [Entitic mass] 28.8 pg Normal 24.7-34.3 [facility] Comment on above: Performed By: #### C BC, CMP #### [address] MCV (RBC) [Entitic vol] 87.1 fL Normal 80-100 F [facility] Comment on above: Performed By: #### C BC, CMP #### [facility] [address] Mean Corpuscular HGB Conc 33.0 g/dL Normal 32.0-35.0 [facility] Comment on above: Performed By: #### C BC, CMP #### [facility] [address] [place] [address] [place] Monocytes (Bld) [#/Vol] 0.5 10*3/uL Normal 0.0-0.8 [facility] Comment on above: Performed By: #### C BC, CMP #### [facility] [address] Monocytes/100 WBC (Bld) 5.8 % Normal . [facility] Comment on above: Performed By: #### C BC, CMP #### [facility] [address] Neutrophils (Bld) [#/Vol] 7.0 10*3/uL Normal 1.8-7.7 [facility] Comment on above: Performed By: #### C BC, CMP #### [facility] [address] [place] [address] [place] Neutrophils/100 WBC (Bld) 74.0 % Normal . [facility] Comment on above: Performed By: #### C BC, CMP #### [facility] [address] [place] [address] [place] NRBC% 0.0 /100{WBC} Normal 0-0.5 [facility] Comment on above: Performed By: #### C BC, CMP #### [facility] [address] [place] [address] [place] Platelet mean volume (Bld) [Entitic vol] 7.8 fL Normal 6.3-10.7 [facility] Comment on above: Performed By: #### C BC, CMP #### [facility] [address] [place] [address] [place] Platelets (Bld) [#/Vol] 335 10*3/uL Normal 150-450 [facility] Comment on above: Performed By: #### C BC, CMP #### [address] RBC (Bld) [#/Vol] 4.62 10*6/uL Normal 3.60-5.00 [facility] Comment on above: Performed By: #### C BC, CMP #### [address] WBC (Bld) [#/Vol] 9.4 10*3/uL Normal 3.8-11.6 [facility] Comment on above: Performed By: #### C BC, CMP #### [address] Comprehensive Metabolic Pane [place] 09-26-2022 Albumin [Mass/Vol] 4.0 g/dL Normal 3.2-5.5 [facility] Comment on above: Performed By: #### C BC, CMP #### [address] Albumin/Globulin [Mass ratio] 1.4 {ratio} Normal [facility] Comment on above: Performed By: #### C BC, CMP #### [address] ALP [Catalytic activity/Vol] 45 U/L Normal 32-92 [facility] Comment on above: Result Comment: PERF ORMED BY: [place] [address] PATHOLOGIST RESTAURANT GREETER KWABENA MELVIN M.D. Performed By: #### C BC, CMP #### [address] ALT [Catalytic activity/Vol] 19 U/L Normal 10-60 [facility] Comment on above: Performed By: #### C BC, CMP #### [address] Anion gap [Moles/Vol] 13.8 mmol/L Normal 6.0-15.0 [facility] Comment on above: Performed By: #### C BC, CMP #### [facility] [address] [place] [id number] [place] AST [Catalytic activity/Vol] 17 U/L Normal 10-42 [facility] Comment on above: Performed By: #### C BC, CMP #### [facility] [address] [place] [address] [facility] Bilirubin [Mass/Vol] 0.5 mg/dL Normal 0.3-1.2 [facility] Comment on above: Performed By: #### C BC, CMP #### [facility] [address] Calcium [Mass/Vol] 8.9 mg/dL Normal 8.2-10.2 [facility] Comment on above: Performed By: #### C BC, CMP #### [facility] [address] Chloride [Moles/Vol] 100 mmol/L Normal 95-114 [facility] Comment on above: Performed By: #### C BC, CMP #### [facility] [address] [place] [address] [place] CO2 [Moles/Vol] 23.7 mmol/L Normal 22.0-30.0 [facility] Comment on above: Performed By: #### C BC, CMP #### [facility] [address] [place] [id number] [place] Creatinine [Mass/Vol] 1.82 mg/dL High 0.44-1.03 [facility] Comment on above: Performed By: #### C BC, CMP #### [facility] [address] [place] [phone] [place] Estimated GFR ( Perri 39 [facility] Comment on above: Result Comment: GFR estimated reference range: According to KDOQI guidelines, <60 ml/min/1.73m2 is sufficient to diagnose a patient with chronic kidney disease. Performed By: #### C BC, CMP #### [facility] [address] [place] [phone] [place] Estimated GFR (Non- Am 32 [facility] Comment on above: Performed By: #### C BC, CMP #### [facility] [address] Globulin (S) [Mass/Vol] 2.8 g/dL Normal F [facility] Comment on above: Performed By: #### C BC, CMP #### [address] Glucose [Mass/Vol] 86 mg/dL Normal 70-100 [facility] Comment on above: Result Comment: [place] Glucose Reference Range is dependent on time and content of last meal. Glucose of more than 200 mg/dL in a nonstressed, ambulatory subject supports the diagnosis of Diabetes Mellitus. ADA recommended reference range Performed By: #### C BC, CMP #### [address] Potassium [Moles/Vol] 3.5 mmol/L Normal 3.5-5.1 [facility] Comment on above: Performed By: #### C BC, CMP #### [address] Protein [Mass/Vol] 6.8 g/dL Normal 6.1-7.9 [facility] Comment on above: Performed By: #### C BC, CMP #### [address] Sodium [Moles/Vol] 134 mmol/L Low 136-146 [facility] Comment on above: Performed By: #### C BC, CMP #### [address] Urea nitrogen [Mass/Vol] 25 mg/dL High 9-23 [facility] Comment on above: Performed By: #### C BC, CMP #### [address] Creatinine and Glomerular fi ltration rate.predicted panel (S/P/Bld)Ordered By: Bonnie Jeffrey on 09-26-2022 Creatinine [Mass/Vol] 1.82 mg/dL 0.44-1.03 [facility] Eosinophils Auto (Bld) [#/Vo l]Ordered By: Bonnie Jeffrey on 09-26-2022 Eosinophils (Bld) [#/Vol] 0.1 10*3/uL 0.0-0.45 [facility] Eosinophils/100 WBC Auto (Bl d)Ordered By: Bonnie Jeffrey on 09-26-2022 Eosinophils/100 WBC (Bld) 0.9 % . [facility] Erythrocyte distribution wid th Auto (RBC) [Ratio]Ordered By: Bonnie Jeffrey on 09-26-2022 Erythrocyte distribution width (RBC) [Ratio] 13.6 % 11.9-15.3 [facility] Estimated glomerular filtrat ion rate (GFR) non- AmericanOrdered By: Bonnie Jeffrey on 09-26-2022 GFR/1.73 sq M.predicted among non-blacks MDRD (S/P/Bld) [Vol rate/Area] 32 mL/Min [facility] Globulin Calc (S) [Mass/Vol] Ordered By: Bonnie Jeffrey on 09-26-2022 Globulin (S) [Mass/Vol] 2.8 g/dL [facility] Hematocrit Auto (Bld) [Volum e fraction]Ordered By: Bonnie Jeffrey on 09-26-2022 Hematocrit (Bld) [Volume fraction] 40.2 % 34.0-46.4 [facility] Hemoglobin [Mass/volume] in BloodOrdered By: Bonnie Jeffrey on 09-26-2022 Hemoglobin (Bld) [Mass/Vol] 13.3 g/dL 11.8-15.4 [facility] Leukocytes [#/volume] correc franco for nucleated erythrocytes in Blood by Automated counOrdered By: Bonnie Jeffrey on 09-26-2022 WBC corrected for nucl RBC Auto (Bld) [#/Vol] 9.4 10*3/uL 3.8-11.6 [facility] Lymphocytes Auto (Bld) [#/Vo l]Ordered By: Bonnie Jeffrey on 09-26-2022 Lymphocytes (Bld) [#/Vol] 1.7 10*3/uL 1.00-4.8 [facility] Lymphocytes/100 WBC Auto (Bl d)Ordered By: Bonnie Jeffrey on 09-26-2022 Lymphocytes/100 WBC (Bld) 18.1 % . [facility] MCH Auto (RBC) [Entitic mass ]Ordered By: Bonnie Jeffrey on 09-26-2022 MCH (RBC) [Entitic mass] 28.8 pg 24.7-34.3 [facility] MCHC Auto (RBC) [Mass/Vol]Or dered By: Bonnie Jeffrey on 09-26-2022 MCHC (RBC) [Mass/Vol] 33.0 g/dL 32.0-35.0 [facility] MCV Auto (RBC) [Entitic vol] Ordered By: Bonnie Jeffrey on 09-26-2022 MCV (RBC) [Entitic vol] 87.1 fL 80-100 F [facility] Monocytes Auto (Bld) [#/Vol] Ordered By: Bonnei Jeffrey on 09-26-2022 Monocytes (Bld) [#/Vol] 0.5 10*3/uL 0.0-0.8 [facility] Monocytes/100 WBC Auto (Bld) Ordered By: Bonnie Jeffrey on 09-26-2022 Monocytes/100 WBC (Bld) 5.8 % . F [facility] Neutrophils Auto (Bld) [#/Vo l]Ordered By: Bonnie Jeffrey on 09-26-2022 Neutrophils (Bld) [#/Vol] 7.0 10*3/uL 1.8-7.7 [facility] Neutrophils/100 WBC Auto (Bl d)Ordered By: Bonnie Jeffrey on 09-26-2022 Neutrophils/100 WBC (Bld) 74.0 % . [facility] No Panel InformationOrdered By: Bonnie Jeffrey on 09-26-2022 Estimated GFR () 39 mL/Min [facility] Comment on above: GFR estimated refere nce range: According to KDOQI guidelines, <60 ml/min/1.73m2 is sufficient to diagnose a patient with chronic kidney disease. Pharmacy Creatinine Clearance (Chem N/A [facility] Nucleated erythrocytes [Pres ence] in Blood by Automated countOrdered By: Bonnie Jeffrey on 09-26-2022 Nucleated RBC Auto Ql (Bld) 0.0 /100{WBC} 0-0.5 [facility] Platelet mean volume Auto (B ld) [Entitic vol]Ordered By: Bonnie Jeffrey on 09-26-2022 Platelet mean volume (Bld) [Entitic vol] 7.8 fL 6.3-10.7 [facility] Platelets Auto (Bld) [#/Vol] Ordered By: Bonnie Jeffrey on 09-26-2022 Platelets (Bld) [#/Vol] 335 10*3/uL 150-450 [facility] Protein [Mass/volume] in Ser um or PlasmaOrdered By: Bonnie Jeffrey on 09-26-2022 Protein [Mass/Vol] 6.8 g/dL 6.1-7.9 [facility] RBC Auto (Bld) [#/Vol]Ordere d By: Bonnie Jeffrey on 09-26-2022 RBC (Bld) [#/Vol] 4.62 10*6/uL 3.60-5.00 [facility] Serum or plasma alanine kamara otransferase measurement without P-5'-P (enzymatic activiOrdered By: Bonnie Jeffrey on 09-26-2022 ALT No additional P-5'-P [Catalytic activity/Vol] 19 U/L 10-60 [facility] Serum or plasma albumin/glob ulin mass ratioOrdered By: Bonnie Jeffrey on 09-26-2022 Albumin/Globulin [Mass ratio] 1.4 {ratio} [facility] Serum or plasma alkaline mona sphatase measurement (enzymatic activity/volume)Ordered By: Bonnie Jeffrey on 09-26-2022 ALP [Catalytic activity/Vol] 45 U/L 32-92 [facility] Serum or plasma anion gap de terminationOrdered By: Bonnie Jeffrey on 09-26-2022 Anion gap [Moles/Vol] 13.8 mmol/L 6.0-15.0 [facility] Serum or plasma aspartate am inotransferase measurement (enzymatic activity/volume)Ordered By: Bonnie Jeffrey on 09-26-2022 AST [Catalytic activity/Vol] 17 U/L 10-42 [facility] Serum or plasma calcium sagrario urement (mass/volume)Ordered By: Bonnie Jeffrey on 09-26-2022 Calcium [Mass/Vol] 8.9 mg/dL 8.2-10.2 [facility] Serum or plasma chloride julieta surement (moles/volume)Ordered By: Bonnie Jeffrey on 09-26-2022 Chloride [Moles/Vol] 100 mmol/L 95-114 [facility] Serum or plasma glucose sagrario urement (mass/volume)Ordered By: Bonnie Jeffrey on 09-26-2022 Glucose [Mass/Vol] 86 mg/dL 70-100 [facility] Comment on above: ADA recommended refe rence rangeRandom Glucose Reference Range is dependent on time and content of last meal. Glucose of more than 200 mg/dL in a nonstressed, ambulatory subject supports the diagnosis of Diabetes Mellitus. Serum or plasma potassium me asurement (moles/volume)Ordered By: Bonnie Jeffrey on 09-26-2022 Potassium [Moles/Vol] 3.5 mmol/L 3.5-5.1 [facility] Serum or plasma sodium measu rement (moles/volume)Ordered By: Bonnie Jeffrey on 09-26-2022 Sodium [Moles/Vol] 134 mmol/L 136-146 [facility] Serum or plasma total biliru bin measurement (mass/volume)Ordered By: Bonnie Jeffrey on 09-26-2022 Bilirubin [Mass/Vol] 0.5 mg/dL 0.3-1.2 [facility] Serum or plasma total carbon dioxide measurement (moles/volume)Ordered By: Bonnie Jeffrey on 09-26-2022 CO2 [Moles/Vol] 23.7 mmol/L 22.0-30.0 [facility] Serum or plasma urea nitroge n measurement (mass/volume)Ordered By: Bonnie Jeffrey on 09-26-2022 Urea nitrogen [Mass/Vol] 25 mg/dL 9-23 [facility] WBC Auto (Bld) [#/Vol]Ordere d By: Bonnie Jeffrey on 09-26-2022 WBC (Bld) [#/Vol] 9.4 10*3/uL 3.8-11.6 [facility] Operative Reporton 3 Operative Report [id number]#1.00CD:127 Normal [facility] Pathology Noteon 09-14-2022 Pathology Note [id number]#1.00CD:127 Normal [facility] PREG HCG QUALon 09-12-2022 , QUAL Negative Normal NEGATIVE [facility] Comment on above: Performed By: #### P REG #### [facility] [address] [place], [place] [address] Dr. Shemar Armas Lab Reportson 09-10-2022 Lab Reports [id number]:127 Normal [facility] Covid-19 PCR (CVDTBH)on 08-26 SARS-CoV-2 (COVID-19) RNA PADMINI+probe Ql (Unsp spec) Not detected Normal NOT DETECTED [facility] Comment on above: Result Comment: This test is not yet approved or cleared by the [place] FDA. When there are no FDA-approved or cleared tests available, and other criteria are met, FDA can make tests available under an emergency access mechanism called an Emergency Use Authorization (EUA). The EUA for this test is supported by the [place] of Health and Human Service's (HHS's) declaration that circumstances exist to justify the emergency use of in vitro diagnostics for the detection and/or diagnosis of the virus that causes COVID-19. This EUA will remain in effect (meaning this test can be used) for the duration of the COVID-19 declaration justifying emergency of IVDs, unless it is terminated or revoked by FDA (after which the test may no longer be used). When diagnostic testing is negative, the possibility of a false negative should be considered in the context of a patient's recent exposures and the presence of clinical signs and symptoms consistent with SARS-CoV-2. Performed By: #### C VDTBH #### [facility] [address] [place] [address] [address] [address] Shemar Armas ED Note-Physicianon 08-01-20 22 ED Note-Physician [id number]:127 Normal [facility] Consent for Procedure/Surger yon 07-31-2022 Consent for Procedure/Surgery [id number]:127 Normal [facility] Physician Referralon Physician Referral [id number]#[id number]:127 Normal [facility] US SINGLE QUAD RT UPPERon US SINGLE QUAD RT UPPER EXAMINATION: US SINGLE QUAD RT UPPER HISTORY: Right upper quadrant pain COMPARISON: No relevant comparison available. FINDINGS: The liver is normal in size and echotexture. Noted along the subcapsular left lobe is a 2.4 x 1 0.5 to 0.9 cm area of hyperechogenicity. The gallbladder is normal in size. The wall measures 2 mm. Negative sonographic Tomas sign. Multiple echogenic foci with acoustic shadowing, cholelithiasis. The visualized pancreas is normal The right kidney is normal measuring 9.3 x 4.9 x 4.3 cm. IMPRESSION: 2.4 cm echogenic focus left hepatic lobe possibly a hemangioma Cholelithiasis without evidence of acute cholecystitis Electronically authenticated by: THOM ANGELA Date: 2022-07-09 17:10 Normal [facility] US KIDNEYS BLADDERon US KIDNEYS BLADDER EXAMINATION: US KIDNEYS BLADDER HISTORY: Dehydration COMPARISON: No relevant comparison available. TECHNIQUE: Ultrasound examination was performed of the bladder. FINDINGS: Right Kidney: Normal in size, contour and cortical echotexture. No solid cortical mass, hydronephrosis or obstructing nephrolithiasis. The cortex measures 1.7 cm. Height: 4.5 cm Length: 9.2 cm Width: 4.7 cm Left Kidney: Normal in size, contour and cortical echotexture. No solid cortical mass, hydronephrosis or obstructing nephrolithiasis. The cortex measures 1.4 cm Height: 5.6 cm Length: 10.8 cm Width: 5.2 cm The urinary bladder is normal in appearance. Prevoid volume 420 mL. Post void volume 0 mL Ureteral jets: Visualized bilaterally Cholelithiasis IMPRESSION: No acute abnormality Cholelithiasis Electronically authenticated by: THOM ANGELA Date: 2022-07-04 14:26 Normal [facility] CBC AUTO DIFFon 07-02-2022 BASO # 0.1 103/ul Normal 0.0-0.1 [facility] Comment on above: Performed By: #### C BC #### [facility] [address] [place] [address] Dr. Shemar Armas Basophils/100 WBC (Bld) 0.6 % Normal 0.2-2.0 [facility] Comment on above: Performed By: #### C BC #### [facility] [address] [place] [address] Dr. Shemar Armas EO # 0.1 103/ul Normal 0.0-0.7 [facility] Comment on above: Performed By: #### C BC #### [facility] [address] [place] [address] Dr. Shemar Armas Eosinophils/100 WBC (Bld) 0.8 % Critically low 0.9-7.0 [facility] Comment on above: Performed By: #### C BC #### [facility] [address] [place] [address] Dr. Shemar Armas Erythrocyte distribution width (RBC) [Ratio] 14.6 % Normal 11.0-15.0 [facility] Comment on above: Performed By: #### C BC #### [facility] [address] [place] [address] Dr. Shemar Armas Hematocrit (Bld) [Volume fraction] 36.4 % Normal 36.0-48.0 [facility] Comment on above: Performed By: #### C BC #### [facility] [address] [place] [address] Dr. Shemar Armas Hemoglobin (Bld) [Mass/Vol] 12.2 g/dL Normal 12.0-16.0 [facility] Comment on above: Performed By: #### C BC #### [facility] [address] [place] [address] Dr. Shemar Armas IG # 0.04 10e3/ul Critically high 0.00-0.03 [facility] Comment on above: Performed By: #### C BC #### [facility] [address] [place] [address] Dr. Shemar Armas IG % 0.3 % Normal 0.0-0.5 [facility] Comment on above: Performed By: #### C BC #### [facility] [address] [place] [address] Dr. Shemar Armas LYMPH # 2.1 103/ul Normal 1.2-3.8 [facility] Comment on above: Performed By: #### C BC #### [facility] [address] [place] [address] Dr. Shemar Armas Lymphocytes/100 WBC (Bld) 18.7 % Critically low 20.5-60.0 [facility] Comment on above: Performed By: #### C BC #### [facility] [address] [place] [address] Dr. Shemar Armas MANUAL DIFF REQ NO Normal [facility] Comment on above: Performed By: #### C BC #### [facility] [address] [place] [address] Dr. Shemar Armas MCH (RBC) [Entitic mass] 29.6 pg Normal 26.7-34.0 [facility] Comment on above: Performed By: #### C BC #### [facility] [address] [place] [address] Dr. Shemar Armas MCHC (RBC) [Mass/Vol] 33.5 g/dL Normal 29.9-35.2 [facility] Comment on above: Performed By: #### C BC #### [facility] [address] [place] [address] Dr. Shemar Armas MCV (RBC) [Entitic vol] 88.3 fL Normal 81.0-99.0 [facility] Comment on above: Performed By: #### C BC #### [facility] [address] [place] [address] Dr. Shemar Armas MONO # 0.7 103/ul Normal 0.3-0.8 [facility] Comment on above: Performed By: #### C BC #### [facility] [address] [place] [address] Dr. Shemar Armas Monocytes/100 WBC (Bld) 6.2 % Normal 1.7-12.0 [facility] Comment on above: Performed By: #### C BC #### [facility] [address] [place] [address] Dr. Shemar Armas NEUT # 8.4 103/ul Critically high 1.4-6.5 [facility] Comment on above: Performed By: #### C BC #### [facility] [address] [place] [address] [address] Shemar Armas Neutrophils/100 WBC (Bld) 73.4 % Normal 43.0-75.0 [facility] Comment on above: Performed By: #### C BC #### [facility] [address] [place] [address] Dr. Shemar Armas Platelet mean volume (Bld) [Entitic vol] 9.2 fL Critically low 9.5-13.5 [facility] Comment on above: Performed By: #### C BC #### [facility] [address] [place] [address] Dr. Shemar Armas PLT 331 103/ul Normal 150-450 [facility] Comment on above: Performed By: #### C BC #### [facility] [address] [place] [address] Dr. Shemar Armas RBC 4.12 106/ul Critically low 4.20-5.40 [facility] Comment on above: Performed By: #### C BC #### [facility] [address] [place] [address] Dr. Shemar Armas WBC 11.4 103/ul Critically high 4.0-11.0 [facility] Comment on above: Performed By: #### C BC #### [facility] [address] [place] [address] Dr. Shemar Armas PROF CHEM 8 (BAS METB)on Anion gap [Moles/Vol] 11.5 mmol/L Normal [facility] Comment on above: Performed By: #### B MP #### [facility] [address] [place] [address] Dr. Shemar Armas Calcium [Mass/Vol] 8.9 mg/dL Normal 8.5-10.1 [facility] Comment on above: Performed By: #### B MP #### [facility] [address] [address] [address] Shemar Armas Chloride [Moles/Vol] 102 mmol/L Normal 98-107 [facility] Comment on above: Performed By: #### B MP #### [facility] [address] [address] [address] Shemar Armas CO2 [Moles/Vol] 29.6 mmol/L Normal 21.0-32.0 [facility] Comment on above: Performed By: #### B MP #### [facility] [address] [address] [address] Shemar Armas Creatinine [Mass/Vol] 1.93 mg/dL Critically high 0.55-1.02 [facility] Comment on above: Performed By: #### B MP #### [facility] [address] [address] [address] Shemar Armas EGFR-AF TOGOLESE 37 mL/min/1.73m2 Critically low >=60 [facility] Comment on above: Performed By: #### B MP #### [facility] [address] [place] [address] Dr. Shemar Armas EGFR-NON AF TOGOLESE 30 mL/min/1.73m2 Critically low >=60 [facility] Comment on above: Performed By: #### B MP #### [facility] [address] [address] [address] Shemar Armas Glucose [Mass/Vol] 93 mg/dL Normal 74-106 [facility] Comment on above: Performed By: #### B MP #### [facility] [address] [address] [address] Shemar Armas Potassium [Moles/Vol] 4.1 mmol/L Normal 3.5-5.1 [facility] Comment on above: Performed By: #### B MP #### [facility] [address] [address] [address] Shemar Armas Sodium [Moles/Vol] 139 mmol/L Normal 136-145 [facility] Comment on above: Performed By: #### B MP #### [facility] [address] [place] [address] Dr. Shemar Armas Urea nitrogen [Mass/Vol] 22.0 mg/dL Critically high 7.0-18 .0 [facility] Comment on above: Performed By: #### B MP #### [facility] [address] [place] [address] Dr. Shemar Armas Urea nitrogen/Creatinine [Mass ratio] 11.4 mg/mg Normal [facility] Comment on above: Performed By: #### B MP #### [facility] [address] [place] [address] Dr. Shemar Armas BNPon 06-29-2022 Natriuretic peptide B (Bld) [Mass/Vol] 159.0 pg/mL Normal <=450.0 [facility] Comment on above: Performed By: #### B MP #### [facility] [address] [place] [address] Dr. Shemar Armas CBC AUTO DIFFon 06-29-2022 BASO # 0.1 103/ul Normal 0.0-0.1 [facility] Comment on above: Performed By: #### P REG #### [facility] [address] [place] [address] Dr. Shemar Armas Basophils/100 WBC (Bld) 0.7 % Normal 0.2-2.0 [facility] Comment on above: Performed By: #### P REG #### [facility] [address] [place] [address] Dr. Shemar Armas EO # 0.1 103/ul Normal 0.0-0.7 [facility] Comment on above: Performed By: #### P REG #### [facility] [address] [place] [address] Dr. Shemar Armas Eosinophils/100 WBC (Bld) 1.4 % Normal 0.9-7.0 [facility] Comment on above: Performed By: #### P REG #### [facility] [address] [place] [address] Dr. Shemar Armas Erythrocyte distribution width (RBC) [Ratio] 14.5 % Normal 11.0-15.0 [facility] Comment on above: Performed By: #### P REG #### [facility] [address] [place] [address] Dr. Shemar Armas Hematocrit (Bld) [Volume fraction] 35.4 % Critically low 36.0-48.0 [facility] Comment on above: Performed By: #### P REG #### [facility] [address] [place] [address] Dr. Shemar Armas Hemoglobin (Bld) [Mass/Vol] 11.9 g/dL Critically low 12.0-16.0 [facility] Comment on above: Performed By: #### P REG #### [facility] [address] [place] [address] Dr. Shemar Armas IG # 0.05 10e3/ul Critically high 0.00-0.03 [facility] Comment on above: Performed By: #### P REG #### [facility] [address] [place] [address] Dr. Shemar Armas IG % 0.5 % Normal 0.0-0.5 [facility] Comment on above: Performed By: #### P REG #### [facility] [address] [place] [address] Dr. Shemar Armas LYMPH # 1.7 103/ul Normal 1.2-3.8 [facility] Comment on above: Performed By: #### P REG #### [facility] [address] [place] [address] Dr. Shemar Armas Lymphocytes/100 WBC (Bld) 17.3 % Critically low 20.5-60.0 [facility] Comment on above: Performed By: #### P REG #### [facility] [address] [place] [address] Dr. Shemar Armas MANUAL DIFF REQ NO Normal [facility] Comment on above: Performed By: #### P REG #### [facility] [address] [place] [address] Dr. Shemar Armas MCH (RBC) [Entitic mass] 29.5 pg Normal 26.7-34.0 [facility] Comment on above: Performed By: #### P REG #### [facility] [address] [address] [address] Shemar Armas MCHC (RBC) [Mass/Vol] 33.6 g/dL Normal 29.9-35.2 [facility] Comment on above: Performed By: #### P REG #### [facility] [address] [place] [address] Dr. Shemar Armas MCV (RBC) [Entitic vol] 87.8 fL Normal 81.0-99.0 [facility] Comment on above: Performed By: #### P REG #### [facility] [address] [place] [address] Dr. Shemar Armas MONO # 0.6 103/ul Normal 0.3-0.8 [facility] Comment on above: Performed By: #### P REG #### [facility] [address] [place] [address] Dr. Shemar Armas Monocytes/100 WBC (Bld) 6.3 % Normal 1.7-12.0 [facility] Comment on above: Performed By: #### P REG #### [facility] [address] [place] [address] Dr. Shemar Armas NEUT # 7.1 103/ul Critically high 1.4-6.5 [facility] Comment on above: Performed By: #### P REG #### [facility] [address] [place] [address] Dr. Shemar Armas Neutrophils/100 WBC (Bld) 73.8 % Normal 43.0-75.0 [facility] Comment on above: Performed By: #### P REG #### [facility] [address] [place] [address] Dr. Shemar Armas Platelet mean volume (Bld) [Entitic vol] 9.4 fL Critically low 9.5-13.5 [facility] Comment on above: Performed By: #### P REG #### [facility] [address] [place] [address] Dr. Shemar Armas PLT 350 103/ul Normal 150-450 [facility] Comment on above: Performed By: #### P REG #### [facility] [address] [address] [address] Shemar Armas RBC 4.03 106/ul Critically low 4.20-5.40 [facility] Comment on above: Performed By: #### P REG #### [facility] [address] [address] [address] Shemar Armas WBC 9.6 103/ul Normal 4.0-11.0 [facility] Comment on above: Performed By: #### P REG #### [facility] [address] [address] [address] Shemar Armas BASO # 0.0 103/ul Normal 0.0-0.1 [facility] Comment on above: Performed By: #### C BC #### [facility] [address] [place] [address] Dr. Shemar Armas Basophils/100 WBC (Bld) 0.6 % Normal 0.2-2.0 [facility] Comment on above: Performed By: #### C BC #### [facility] [address] [place] [address] Dr. Shemar Armas EO # 0.1 103/ul Normal 0.0-0.7 [facility] Comment on above: Performed By: #### C BC #### [facility] [address] [place] [address] Dr. Shemar Armas Eosinophils/100 WBC (Bld) 1.2 % Normal 0.9-7.0 [facility] Comment on above: Performed By: #### C BC #### [facility] [address] [place] [address] Dr. Shemar Armas Erythrocyte distribution width (RBC) [Ratio] 14.4 % Normal 11.0-15.0 [facility] Comment on above: Performed By: #### C BC #### [facility] [address] [place] [address] Dr. Shemar Armas Hematocrit (Bld) [Volume fraction] 29.3 % Critically low 36.0-48.0 [facility] Comment on above: Performed By: #### C BC #### [facility] [address] [address] [address] Shemar Armas Hemoglobin (Bld) [Mass/Vol] 9.9 g/dL Critically low 12.0-16.0 [facility] Comment on above: Performed By: #### C BC #### [facility] [address] [address] [address] Shemar Armas IG # 0.04 10e3/ul Critically high 0.00-0.03 [facility] Comment on above: Performed By: #### C BC #### [facility] [address] [address] [address] Shemar Armas IG % 0.6 % Critically high 0.0-0.5 [facility] Comment on above: Performed By: #### C BC #### [facility] [address] [address] [address] Shemar Armas LYMPH # 1.5 103/ul Normal 1.2-3.8 [facility] Comment on above: Performed By: #### C BC #### [facility] [address] [address] [address] Shemar Armas Lymphocytes/100 WBC (Bld) 20.1 % Critically low 20.5-60.0 [facility] Comment on above: Performed By: #### C BC #### [facility] [address] [address] [address] Shemar Armas MANUAL DIFF REQ NO Normal [facility] Comment on above: Performed By: #### C BC #### [facility] [address] [address] [address] Shemar Armas MCH (RBC) [Entitic mass] 29.9 pg Normal 26.7-34.0 [facility] Comment on above: Performed By: #### C BC #### [facility] [address] [address] [address] Shemar Armas MCHC (RBC) [Mass/Vol] 33.8 g/dL Normal 29.9-35.2 [facility] Comment on above: Performed By: #### C BC #### [facility] [address] [address] [address] Shemar Armas MCV (RBC) [Entitic vol] 88.5 fL Normal 81.0-99.0 [facility] Comment on above: Performed By: #### C BC #### [facility] [address] [address] [address] Shemar Armas MONO # 0.5 103/ul Normal 0.3-0.8 [facility] Comment on above: Performed By: #### C BC #### [facility] [address] [place] [address] Dr. Shemar Armas Monocytes/100 WBC (Bld) 7.5 % Normal 1.7-12.0 [facility] Comment on above: Performed By: #### C BC #### [facility] [address] [place] [address] Dr. Shemar Armas NEUT # 5.1 103/ul Normal 1.4-6.5 [facility] Comment on above: Performed By: #### C BC #### [facility] [address] [place] [address] Dr. Shemar Armas Neutrophils/100 WBC (Bld) 70.0 % Normal 43.0-75.0 [facility] Comment on above: Performed By: #### C BC #### [facility] [address] [place] [address] Dr. Shemar Armas Platelet mean volume (Bld) [Entitic vol] 9.2 fL Critically low 9.5-13.5 [facility] Comment on above: Performed By: #### C BC #### [facility] [address] [place] [address] Dr. Shemar Armas PLT 225 103/ul Normal 150-450 [facility] Comment on above: Performed By: #### C BC #### [facility] [address] [place] [address] Dr. Shemar Armas RBC 3.31 106/ul Critically low 4.20-5.40 [facility] Comment on above: Performed By: #### C BC #### [facility] [address] [address] [address] Shemar Armas WBC 7.2 103/ul Normal 4.0-11.0 [facility] Comment on above: Performed By: #### C BC #### [facility] [address] [address] [address] Shemar Armas IRONon 06-29-2022 Iron [Mass/Vol] 110.0 ug/dL Normal 50.0-170.0 [facility] Comment on above: Performed By: #### P REG #### [facility] [address] [place] [address] Dr. Shemar Armas PROF 14(COMP METB)on 022 Albumin [Mass/Vol] 4.0 g/dL Normal 3.4-5.0 [facility] Comment on above: Performed By: #### P REG #### [facility] [address] [place] [address] Dr. Shemar Armas Albumin/Globulin [Mass ratio] 1.1 {ratio} Normal [facility] Comment on above: Performed By: #### P REG #### [facility] [address] [place] [address] Dr. Shemar Armas ALP [Catalytic activity/Vol] 57 U/L Normal 46-116 [facility] Comment on above: Performed By: #### P REG #### [facility] [address] [place] [address] Dr. Shemar Armas ALT [Catalytic activity/Vol] 26 U/L Normal 14-59 [facility] Comment on above: Performed By: #### P REG #### [facility] [address] [place] [address] Dr. Shemar Armas Anion gap [Moles/Vol] 10.0 mmol/L Normal [facility] Comment on above: Performed By: #### P REG #### [facility] [address] [place] [address] Dr. Shemar Armas AST [Catalytic activity/Vol] 15 U/L Normal 15-37 [facility] Comment on above: Performed By: #### P REG #### [facility] [address] [address] [address] Shemar Armas Bilirubin [Mass/Vol] 0.2 mg/dL Normal 0.2-1.0 [facility] Comment on above: Performed By: #### P REG #### [facility] [address] [address] [address] Shemar Armas Calcium [Mass/Vol] 8.8 mg/dL Normal 8.5-10.1 [facility] Comment on above: Performed By: #### P REG #### [facility] [address] [address] [address] Shemar Armas Chloride [Moles/Vol] 105 mmol/L Normal 98-107 [facility] Comment on above: Performed By: #### P REG #### [facility] [address] [address] [address] Shemar Armas CO2 [Moles/Vol] 26.8 mmol/L Normal 21.0-32.0 [facility] Comment on above: Performed By: #### P REG #### [facility] [address] [address] [address] Shemar Armas Creatinine [Mass/Vol] 1.60 mg/dL Critically high 0.55-1.02 [facility] Comment on above: Performed By: #### P REG #### [facility] [address] [address] [address] Shemar Armas EGFR-AF TOGOLESE 46 mL/min/1.73m2 Critically low >=60 [facility] Comment on above: Performed By: #### P REG #### [facility] [address] [address] [address] Shemar Armas EGFR-NON AF TOGOLESE 38 mL/min/1.73m2 Critically low >=60 [facility] Comment on above: Performed By: #### P REG #### [facility] [address] [address] [address] Shemar Armas Globulin (S) [Mass/Vol] 3.5 g/dL Normal [facility] Comment on above: Performed By: #### P REG #### [facility] [address] [address] [address] Shemar Armas Glucose [Mass/Vol] 98 mg/dL Normal 74-106 [facility] Comment on above: Performed By: #### P REG #### [facility] [address] [address] [address] Shemar Armas Potassium [Moles/Vol] 3.8 mmol/L Normal 3.5-5.1 [facility] Comment on above: Performed By: #### P REG #### [facility] [address] [address] [address] Shemar Armas Protein [Mass/Vol] 7.5 g/dL Normal 6.4-8.2 [facility] Comment on above: Performed By: #### P REG #### [facility] [address] [address] [address] Shemar Armas Sodium [Moles/Vol] 138 mmol/L Normal 136-145 [facility] Comment on above: Performed By: #### P REG #### [facility] [address] [address] [address] Shemar Armas Urea nitrogen [Mass/Vol] 24.0 mg/dL Critically high 7.0-18 .0 [facility] Comment on above: Performed By: #### P REG #### [facility] [address] [address] [address] Shemar Armas Urea nitrogen/Creatinine [Mass ratio] 15.0 mg/mg Normal [facility] Comment on above: Performed By: #### P REG #### [facility] [address] [address] [address] Shemar Armas Albumin [Mass/Vol] 3.3 g/dL Critically low 3.4-5.0 [facility] Comment on above: Performed By: #### B MP #### [facility] [address] [address] [address] Shemar Armas Albumin/Globulin [Mass ratio] 1.1 {ratio} Normal [facility] Comment on above: Performed By: #### B MP #### [facility] [address] [address] [address] Shemar Armas ALP [Catalytic activity/Vol] 55 U/L Normal 46-116 [facility] Comment on above: Performed By: #### B MP #### [facility] [address] [place] [address] Dr. Shemar Armas ALT [Catalytic activity/Vol] 21 U/L Normal 14-59 [facility] Comment on above: Performed By: #### B MP #### [facility] [address] [address] [address] Shemar Armas Anion gap [Moles/Vol] 8.1 mmol/L Normal [facility] Comment on above: Performed By: #### B MP #### [facility] [address] [place] [address] Dr. Shemar Armas AST [Catalytic activity/Vol] 13 U/L Critically low 15-37 [facility] Comment on above: Performed By: #### B MP #### [facility] [address] [place] [address] Dr. Shemar Armas Bilirubin [Mass/Vol] 0.1 mg/dL Critically low 0.2-1.0 [facility] Comment on above: Performed By: #### B MP #### [facility] [address] [place] [address] Dr. Shemar Armas Calcium [Mass/Vol] 7.5 mg/dL Critically low 8.5-10.1 [facility] Comment on above: Performed By: #### B MP #### [facility] [address] [place] [address] Dr. Shemar Armas Chloride [Moles/Vol] 107 mmol/L Normal 98-107 [facility] Comment on above: Performed By: #### B MP #### [facility] [address] [address] [address] Shemar Armas CO2 [Moles/Vol] 24.5 mmol/L Normal 21.0-32.0 [facility] Comment on above: Performed By: #### B MP #### [facility] [address] [place] [address] Dr. Shemar Armas Creatinine [Mass/Vol] 2.03 mg/dL Critically high 0.55-1.02 [facility] Comment on above: Performed By: #### B MP #### [facility] [address] [address] [address] Shemar Armas EGFR-AF TOGOLESE 35 mL/min/1.73m2 Critically low >=60 [facility] Comment on above: Performed By: #### B MP #### [facility] [address] [address] [address] Shemar Armas EGFR-NON AF TOGOLESE 29 mL/min/1.73m2 Critically low >=60 [facility] Comment on above: Performed By: #### B MP #### [facility] [address] [address] [address] Shemar Armas Globulin (S) [Mass/Vol] 2.9 g/dL Normal [facility] Comment on above: Performed By: #### B MP #### [facility] [address] [address] [address] Shemar Armas Glucose [Mass/Vol] 111 mg/dL Critically high 74-106 [facility] Comment on above: Performed By: #### B MP #### [facility] [address] [address] [address] Shemar Armas Potassium [Moles/Vol] 3.6 mmol/L Normal 3.5-5.1 [facility] Comment on above: Performed By: #### B MP #### [facility] [address] [address] [address] Shemar Armas Protein [Mass/Vol] 6.2 g/dL Critically low 6.4-8.2 [facility] Comment on above: Performed By: #### B MP #### [facility] [address] [address] [address] Shemar Armas Sodium [Moles/Vol] 136 mmol/L Normal 136-145 [facility] Comment on above: Performed By: #### B MP #### [facility] [address] [address] [address] Shemar Armas Urea nitrogen [Mass/Vol] 28.0 mg/dL Critically high 7.0-18 .0 [facility] Comment on above: Performed By: #### B MP #### [facility] [address] [place] [address] Dr. Shemar Armas Urea nitrogen/Creatinine [Mass ratio] 13.8 mg/mg Normal [facility] Comment on above: Performed By: #### B MP #### [facility] [address] [place] [address] Dr. Shemar Armas TROPONIN, HIGH SENSITIVITYon 06-29-2022 HSTROP 4.8 pg/mL Normal 4.0-51.3 [facility] Comment on above: Result Comment: CUT- OFF POINTS HAVE BEEN ESTABLISHED BASED ON THE FOURTH UNIVERSAL DEFINITIONS OF MYOCARDIAL INFARCTION. THE UPPER REFERENCE LIMIT (URL) OF TROPONIN, DEFINED THE 99TH PERCENTILE OF cTnI DISTRIBUTION IN A REFERENCE POPULATION, HAS BEEN CONFIRMED THE DECISION THRESHOLD FOR VA DIAGNOSIS. Performed By: #### B MP #### [facility] [address] [place] [address] Dr. Shemar Armas INSULINon 04-27-2022 Insulin 15.8 uIU/mL Normal 2.6-24.9 [facility] Comment on above: Performed By: #### I NSULIN #### [facility] [address] [place] [address] Dr. Shemar Armas T4, T3U, FTI LABCORPon 04-27 Free Thyroxine Index 3.1 Normal 1.2-4.9 [facility] Comment on above: Performed By: #### T HYLC #### [facility] [address] [place] [address] Dr. Shemar Armas T3 Uptake 31 % Normal 24-39 [facility] Comment on above: Performed By: #### T HYLC #### [facility] [address] [place] [address] Dr. Shemar Armas T4 [Mass/Vol] 10.1 ug/dL Normal 4.5-12.0 [facility] Comment on above: Performed By: #### T HYLC #### [facility] [address] [place] [address] Dr. Shemar Armas CBC AUTO DIFFon 04-26-2022 BASO # 0.1 103/ul Normal 0.0-0.1 [facility] Comment on above: Performed By: #### B MP #### [facility] [address] [place] [address] Dr. Shemar Armas Basophils/100 WBC (Bld) 0.7 % Normal 0.2-2.0 [facility] Comment on above: Performed By: #### B MP #### [facility] [address] [place] [address] Dr. Shemar Armas EO # 0.1 103/ul Normal 0.0-0.7 [facility] Comment on above: Performed By: #### B MP #### [facility] [address] [place] [address] Dr. Shemar Armas Eosinophils/100 WBC (Bld) 0.9 % Normal 0.9-7.0 [facility] Comment on above: Performed By: #### B MP #### [facility] [address] [place] [address] Dr. Shemar Armas Erythrocyte distribution width (RBC) [Ratio] 13.7 % Normal 11.0-15.0 [facility] Comment on above: Performed By: #### B MP #### [facility] [address] [place] [address] Dr. Shemar Armas Hematocrit (Bld) [Volume fraction] 41.8 % Normal 36.0-48.0 [facility] Comment on above: Performed By: #### B MP #### [facility] [address] [place] [address] Dr. Shemar Armas Hemoglobin (Bld) [Mass/Vol] 13.9 g/dL Normal 12.0-16.0 [facility] Comment on above: Performed By: #### B MP #### [facility] [address] [place] [address] Dr. Shemar Armas IG # 0.03 10e3/ul Normal 0.00-0.03 [facility] Comment on above: Performed By: #### B MP #### [facility] [address] [place] [address] Dr. Shemar Armas IG % 0.3 % Normal 0.0-0.5 [facility] Comment on above: Performed By: #### B MP #### [facility] [address] [place] [address] Dr. Shemar Armas LYMPH # 1.8 103/ul Normal 1.2-3.8 [facility] Comment on above: Performed By: #### B MP #### [facility] [address] [place] [address] Dr. Shemar Armas Lymphocytes/100 WBC (Bld) 21.0 % Normal 20.5-60.0 [facility] Comment on above: Performed By: #### B MP #### [facility] [address] [place] [address] Dr. Shemar Armas MANUAL DIFF REQ NO Normal [facility] Comment on above: Performed By: #### B MP #### [facility] [address] [place] [address] Dr. Shemar Armas MCH (RBC) [Entitic mass] 28.8 pg Normal 26.7-34.0 [facility] Comment on above: Performed By: #### B MP #### [facility] [address] [place] [address] Dr. Shemar Armas MCHC (RBC) [Mass/Vol] 33.3 g/dL Normal 29.9-35.2 [facility] Comment on above: Performed By: #### B MP #### [facility] [address] [place] [address] Dr. Shemar Armas MCV (RBC) [Entitic vol] 86.7 fL Normal 81.0-99.0 [facility] Comment on above: Performed By: #### B MP #### [facility] [address] [place] [address] Dr. Shemar Armas MONO # 0.7 103/ul Normal 0.3-0.8 [facility] Comment on above: Performed By: #### B MP #### [facility] [address] [place] [address] Dr. Shemar Armas Monocytes/100 WBC (Bld) 7.9 % Normal 1.7-12.0 [facility] Comment on above: Performed By: #### B MP #### [facility] [address] [place] [address] Dr. Shemar Armas NEUT # 6.0 103/ul Normal 1.4-6.5 [facility] Comment on above: Performed By: #### B MP #### [facility] [address] [place] [address] Dr. Shemar Armas Neutrophils/100 WBC (Bld) 69.2 % Normal 43.0-75.0 [facility] Comment on above: Performed By: #### B MP #### [facility] [address] [place] [address] Dr. Shemar Armas Platelet mean volume (Bld) [Entitic vol] 9.7 fL Normal 9.5-13.5 [facility] Comment on above: Performed By: #### B MP #### [facility] [address] [place] [address] Dr. Shemar Armas PLT 322 103/ul Normal 150-450 [facility] Comment on above: Performed By: #### B MP #### [facility] [address] [place] [address] Dr. Shemar Armas RBC 4.82 106/ul Normal 4.20-5.40 [facility] Comment on above: Performed By: #### B MP #### [facility] [address] [place] [address] Dr. Shemar Armas WBC 8.7 103/ul Normal 4.0-11.0 [facility] Comment on above: Performed By: #### B MP #### [facility] [address] [place] [address] Dr. Shemar Armas GLYCOHEMOGLOBIN A1Con 2021 ADA RECOMMENDATION SEE BELOW Normal [facility] Comment on above: Result Comment: ADA RECOMMENDED LIMIT 4.0 - 6.0 ADA THERAPEUTIC TARGET < 7.0 ACTION SUGGESTED > 7.0 Performed By: #### P REG #### [facility] [address] [place] [address] Dr. Shemar Armas Glucose [Mass/Vol] 108 mg/dL Normal [facility] Comment on above: Performed By: #### P REG #### [facility] [address] [address] [address] Shemar Armas HbA1c (Bld) [Mass fraction] 5.4 % Normal 4.5-6.2 [facility] Comment on above: Performed By: #### P REG #### [facility] [address] [address] [address] Shemar Armas IRONon 04-26-2022 Iron [Mass/Vol] 55.0 ug/dL Normal 50.0-170.0 [facility] Comment on above: Performed By: #### I CYNDI #### [facility] [address] [place] [address] Dr. Shemar Armas LIPID PROFILEon 04-26-2022 CHOL-HDL RATIO NORM SEE BELOW Normal [facility] Comment on above: Result Comment: 3.3 - 4.4 LOW RISK 4.4 - 7.1 AVERAGE RISK 7.1 - 11.0 MODERATE RISK >11.0 HIGH RISK Performed By: #### P REG #### [facility] [address] [address] [address] Shemar Armas Cholesterol [Mass/Vol] 205 mg/dL Critically high <=200 [facility] Comment on above: Performed By: #### P REG #### [facility] [address] [place] [address] Dr. Shemar Armas Cholesterol in HDL [Mass/Vol] 57 mg/dL Normal 40-60 [facility] Comment on above: Performed By: #### P REG #### [facility] [address] [address] [address] Shemar Armas Cholesterol in LDL [Mass/Vol] 126.8 mg/dL Normal [facility] Comment on above: Performed By: #### P REG #### [facility] [address] [place] [address] Dr. Shemar Armas Cholesterol.total/Choles terol in HDL [Mass ratio] 3.6 {ratio} Normal [facility] Comment on above: Performed By: #### P REG #### [facility] [address] [address] [address] Shemar Armas HDL NORMAL > or = 60 mg/dl - LOW CARDIOVASCULAR RISK <40 mg/dl - HIGH CARDIOVASCULAR RISK Normal [facility] Comment on above: Performed By: #### P REG #### [facility] [address] [address] [address] Shemar Armas LDL CALC NORMAL SEE BELOW Normal [facility] Comment on above: Result Comment: <100 mg/dl OPTIMAL 100 - 129 mg/dl NEAR OR ABOVE OPTIMAL 130 - 159 mg/dl BORDERLINE HIGH 160 - 189 mg/dl HIGH >190 mg/dl VERY HIGH Performed By: #### P REG #### [facility] [address] [place] [address] Dr. Shemar Armas Triglyceride [Mass/Vol] 106 mg/dL Normal <=150 [facility] Comment on above: Performed By: #### P REG #### [facility] [address] [place] [address] Dr. Shemar Armas VLDL CALC 21.2 mg/dL Normal [facility] Comment on above: Performed By: #### P REG #### [facility] [address] [place] [address] Dr. Shemar Armas PROF 14(COMP METB)on 022 Albumin [Mass/Vol] 4.3 g/dL Normal 3.4-5.0 [facility] Comment on above: Performed By: #### T SH, CMP, LIPID #### [facility] [address] [place] [address] Dr. Shemar Armas Albumin/Globulin [Mass ratio] 1.2 {ratio} Normal [facility] Comment on above: Performed By: #### T SH, CMP, LIPID #### [facility] [address] [place] [address] Dr. Shemar Armas ALP [Catalytic activity/Vol] 62 U/L Normal 46-116 [facility] Comment on above: Performed By: #### T SH, CMP, LIPID #### [facility] [address] [place] [address] Dr. Shemar Armas ALT [Catalytic activity/Vol] 34 U/L Normal 14-59 [facility] Comment on above: Performed By: #### T SH, CMP, LIPID #### [facility] [address] [place] [address] Dr. Shemar Armas Anion gap [Moles/Vol] 13.7 mmol/L Normal [facility] Comment on above: Performed By: #### T SH, CMP, LIPID #### [facility] [address] [place] [address] Dr. Shemar Armas AST [Catalytic activity/Vol] 22 U/L Normal 15-37 [facility] Comment on above: Performed By: #### T SH, CMP, LIPID #### [facility] [address] [place] [address] Dr. Shemar Armas Bilirubin [Mass/Vol] 0.3 mg/dL Normal 0.2-1.0 [facility] Comment on above: Performed By: #### T DERRELL, CMP, LIPID #### [facility] [address] [place] [address] Dr. Shemar Armas Calcium [Mass/Vol] 9.1 mg/dL Normal 8.5-10.1 [facility] Comment on above: Performed By: #### T SH, CMP, LIPID #### [facility] [address] [place] [address] Dr. Shemar Armas Chloride [Moles/Vol] 98 mmol/L Normal 98-107 [facility] Comment on above: Performed By: #### T SH, CMP, LIPID #### [facility] [address] [place] [address] Dr. Shemar Armas CO2 [Moles/Vol] 29.9 mmol/L Normal 21.0-32.0 [facility] Comment on above: Performed By: #### T SH, CMP, LIPID #### [facility] [address] [place] [address] Dr. Shemar Armas Creatinine [Mass/Vol] 1.27 mg/dL Critically high 0.55-1.02 [facility] Comment on above: Performed By: #### T SH, CMP, LIPID #### [facility] [address] [address] [address] Shemar Armas EGFR-AF TOGOLESE 59 mL/min/1.73m2 Critically low >=60 [facility] Comment on above: Performed By: #### T SH, CMP, LIPID #### [facility] [address] [place] [address] Dr. Shemar Armas EGFR-NON AF TOGOLESE 49 mL/min/1.73m2 Critically low >=60 [facility] Comment on above: Performed By: #### T SH, CMP, LIPID #### [facility] [address] [address] [address] Shemar Armas Globulin (S) [Mass/Vol] 3.6 g/dL Normal [facility] Comment on above: Performed By: #### T SH, CMP, LIPID #### [facility] [address] [place] [address] Dr. Shemar Armas Glucose [Mass/Vol] 92 mg/dL Normal 74-106 [facility] Comment on above: Performed By: #### T SH, CMP, LIPID #### [facility] [address] [place] [address] Dr. Shemar Armas Potassium [Moles/Vol] 3.6 mmol/L Normal 3.5-5.1 [facility] Comment on above: Performed By: #### T SH, CMP, LIPID #### [facility] [address] [place] [address] Dr. Shemar Armas Protein [Mass/Vol] 7.9 g/dL Normal 6.4-8.2 [facility] Comment on above: Performed By: #### T SH, CMP, LIPID #### [facility] [address] [place] [address] Dr. Shemar Armas Sodium [Moles/Vol] 138 mmol/L Normal 136-145 [facility] Comment on above: Performed By: #### T SH, CMP, LIPID #### [facility] [address] [place] [address] Dr. Shemar Armas Urea nitrogen [Mass/Vol] 16.0 mg/dL Normal 7.0-18.0 [facility] Comment on above: Performed By: #### T SH, CMP, LIPID #### [facility] [address] [place], [place] [address] Dr. Shemar Armas Urea nitrogen/Creatinine [Mass ratio] 12.6 mg/mg Normal [facility] Comment on above: Performed By: #### T SH, CMP, LIPID #### [facility] [address] [place], [place] [address] Dr. Shemar Armas TSHon 04-26-2022 TSH 3.031 uIU/mL Normal 0.358-3.740 [facility] Comment on above: Performed By: #### P REG #### [facility] [address] [address] [address] Shemar Armas Vital Signs Date Time Vital Sign Value Performing Clinician Facility 10-02-2022 16:00-0500 Body height 160.02 cm Bonnie Cheggin Other [facility] 10-02-2022 16:00-0500 Body mass index (BMI) [Ratio] 42.69 kg/m2 Bonnie Cheggin Other [facility] 10-02-2022 16:00-0500 Body weight 109.32 kg Bonniemelany Jeffrey Other [facility] 09-28-2022 15:55-0500 Diastolic blood pressure 60 mm[Hg] MD Donnell Brooke Work Phone: [facility] 09-28-2022 15:55-0500 Heart rate 76 /min MD Donnell Brooke Work Phone: [facility] 09-28-2022 15:55-0500 Respiratory rate 16 /min MD Donnell Brooke Work Phone: [facility] 09-28-2022 15:55-0500 SaO2% (BldA) [Mass fraction] 98 % MD Donnell Brooke Work Phone: [facility] 09-28-2022 15:55-0500 Systolic blood pressure 123 mm[Hg] MD Donnell Brooke Work Phone: [facility] 09-28-2022 14:33-0500 Body height 162.56 cm MD Donnell Brooke Work Phone: [facility] 09-28-2022 14:33-0500 Body mass index (BMI) [Ratio] 41.6 kg/m2 MD Donnell Brooke Work Phone: [facility] 09-28-2022 14:33-0500 Body weight 110 kg MD Donnell Brooke Work Phone: [facility] 09-28-2022 12:25-0500 Body temperature 98 [degF] MD Donnell Brooke Work Phone: [facility] 07-30-2022 15:29-0500 Blood Pressure Location [facility]jay [email or web address] [facility] 07-30-2022 15:29-0500 Diastolic blood pressure 83 mm[Hg] Sanjay MENENDEZL [facility] 07-30-2022 15:29-0500 Heart rate 75 /min Sanjay GEMMAL [facility] 07-30-2022 15:29-0500 Respiratory rate 16 /min Sanjay GEMMAL [facility] 07-30-2022 15:29-0500 Systolic blood pressure 124 mm[Hg] Sanjay NILL [facility] Encounters Encounter Date Encounter Type Care Provider Facility Start: 06-12-2023 End: 06-12-2023 ambulatory Bonnie Jeffrey Other [facility] Start: 06-12-2023 Office outpatient vi sit 15 minutes [facility] Start: 03-20-2023 End: 03-20-2023 ambulatory Bonnie Calvey Other [facility] Start: 03-20-2023 Office outpatient vi sit 15 minutes Bonnie Calvey [facility] Start: 01-24-2023 End: 01-24-2023 ambulatory Bonnie Calvey Other [facility] Start: 01-24-2023 Office outpatient vi sit 15 minutes Bonnie Calvey [facility] Start: 12-11-2022 End: 12-11-2022 ambulatory Bonnie R Calvey Facility:[facility] Start: 11-13-2022 End: 11-13-2022 ambulatory Bonnie R Calvey Facility:[facility] Start: 11-13-2022 End: 11-13-2022 Patient encounter procedure MD Donnell Brooke Work Phone: [facility] Start: 11-13-2022 End: 11-13-2022 ambulatory MD Donnell Brooke Work Phone: [facility] Work Phone: Start: 11-13-2022 Postop follow up vis it related to original px Bonnie Calvey [facility] Start: 10-23-2022 End: 10-23-2022 ambulatory Bonnie Calvey Other [facility] Start: 10-23-2022 Postop follow up vis it related to original px Bonnie Calvey [facility] Start: 10-10-2022 End: 10-11-[address] DONNELL BROOKE . Facility: Start: 10-09-2022 End: 10-09-2022 ambulatory Bonnie Calvey Other [facility] Start: 10-09-2022 Postop follow up vis it related to original px Bonnie Calvey [facility] Start: 10-02-2022 End: 10-02-2022 ambulatory Bonnie Calvey Other [facility] Other Start: 10-02-2022 Postop follow up vis it related to original px Bonnie Jeffrey [facility] Start: 10-02-2022 Telephone encounter Bonnie Jeffrey [facility] Start: 09-28-2022 End: 09-28-2022 ambulatory Bonnie Jeffrey Facility:[facility] Start: 09-28-2022 End: 09-28-2022 Admission to same day surgery center MD Donnell Brooke Work Phone: [facility] [place] Start: 09-26-2022 End: 09-26-2022 ambulatory Bonnie Jeffrey Facility:[facility] Start: 09-26-2022 End: 09-26-2022 ambulatory MD Donnell Brooke Work Phone: [facility] Work Phone: Start: 09-26-2022 End: 09-26-2022 Patient encounter procedure MD Donnell Brooke Work Phone: [facility] Work Phone: Start: 09-25-2022 End: 09-25-[address] DONNELL BROOKE . Facility: Start: 09-21-2022 ambulatory Sanjay ZUÑIGA Facility :[facility] Start: 09-14-2022 Encounter for preprocedural laboratory examination DR SANJAY ZUÑIGA . [facility] Start: 09-12-2022 End: 09-13-2022 ambulatory Sanjay ZUÑIGA Facility:[id number] Start: 09-11-2022 End: 10-06-[address] DONNELL BROOKE . Facility:[facility] Start: 09-07-2022 End: 09-08-[address] DONNELL BROOKE . Facility: Start: 09-07-2022 End: 09-08-2022 Encounter for preprocedural laboratory examination DR DONNELL BROOKE . Facility: Start: 07-30-2022 End: 07-31-2022 ambulatory Donnell Brooke PROVIDER Facility:[facility] Start: 07-30-2022 End: 07-30-2022 Patient encounter procedure Sanjay ZUÑIGA [facility] Start: 07-10-2022 ambulatory Donnell Brooke PROVIDER Facility:[facility] Start: 07-09-2022 End: 07-10-[address] DONNELL BROOKE . Facility:[facility] Start: 07-04-2022 End: 07-05-[address] DONNELL BROOKE . Facility:[facility] Start: 07-02-2022 End: 07-03-[address] DONNELL BROOKE . Facility:[facility] Start: 06-29-2022 End: 06-30-[address] DONNELL BROOKE . Facility:[facility] Start: 06-28-2022 End: 06-29-[address] SILVIA LEAVITT . Facility:[facility] Start: 04-27-2022 Encounter for genera l adult medical examination without abnormal findings DR DONNELL BROOKE . [facility] Start: 04-26-2022 End: 04-27-[address] DONNELL BROOKE . Facility:[facility] Start: 04-26-2022 End: 04-27-2022 Encounter for general adult medical examination without abnormal findings DR DONNELL BROOKE . Facility: Start: 02-15-2022 End: 03-21-[address] DONNELL BROOKE . Facility: Procedures Date Procedure Procedure Detail Performing Clinician Start: 11-13-2022 Plain X-ray of right hand MD Donnell Brooke Work Phone: Start: 09-28-2022 Incision and drainag e of lower extremity MD Donnell Brooke Work Phone: Start: 08-12-2014 tarsal tunnel releas e, right. percutaneous plantar fasciotomy via the Tenex device, ultrasound device Sanjay ZUÑIGA Extraction of wisdom tooth M chantal SOL PILONIDAL CYST EXCISION Messi ael NILL TARSAL TUNNEL RELEASE 1 Messi ael NILL Comment on above: LEFT Tonsillectomy Sanjay ZUÑIGA Plan of Treatment Date Care Activity Detail Author Start: 09-28-2022 [facility] Start: 09-28-2022 [facility] Work Phone: Immunizations Immunization Date Immunization Notes Care Provider Josue cheema NEGATED: Highlighted row has not occurred!07-30-2022 influenza virus vaccine, unspecified formulation Sanjay ZÑUIGA [facility] [place] Payers Date Payer Category Payer Self-pay 2022 Unknown [id number] 1990 Unknown [id number] 2.16.8 [id number] 1990 Unknown [id number] 2.16.8 40.1.796975.3.579.2.727 1990 Unknown [id number] 2.16.8 40.1.521280.3.579.2.727 1990 Unknown [id number] 2.16.8 40.1.230426.3.579.2.727 1990 Unknown [id number] 2.16.8 40.1.525793.3.579.2.727 1990 Unknown [id number] 2.16.84 0.1.803325.3.579.2.593 1990 Unknown [id number] 2.16.84 0.1.788551.3.579.2.593 1990 Unknown [id number] 2.16.84 0.1.947559.3.579.2.593 1990 Unknown [id number] 2.16.84 0.1.946434.3.579.2.593 1990 Unknown [id number] 2.16.84 0.1.377558.3.579.2.593 1990 Unknown [id number] 2.16.84 0.1.319532.3.579.2.593 1990 Unknown [id number] 2.16.84 0.1.509986.3.579.2.593 1990 Unknown [id number] 2.16.84 0.1.824046.3.579.2.593 1990 Unknown [id number] 2.16.84 0.1.477093.3.579.2.593 1990 Unknown [id number] 2.16.84 0.1.764111.3.579.2.593 1990 Unknown [id number] 2.16.84 0.1.667748.3.579.2.593 1990 Unknown [id number] 2.16.84 0.1.935748.3.579.2.593 1959 Unknown [id number] Unknown [id number] 2.16.8 40.1.537967.3.579.2.531 Unknown [id number] 2.16.8 40.1.826078.3.579.2.531 Unknown [id number] 2.16.8 40.1.786353.3.579.2.531 Unknown [id number] 2.16.8 40.1.094411.3.579.2.531 Social History Date Type Detail Facility Start: 07-30-2022 End: 09-28-2022 Tobacco smoking status Never smoked tobacco (finding) [facility] Tobacco smoking status Never [facility] Sex Assigned At Female [facility] Start: 1990 Sex Assigned At Female F [facility] Goals Date Patient Goal Desired Activity /State Functional Status Date Assessment Result Facility 07-30-2022 Functional Status N/A [facility] Clinical Notes 08-20-2022 to 06-12-2023 Note Date & Type Note Facility 06-12-2023 Evaluation note Encounter Date Diagnosis Assessment Notes May, Crushing injury of right thumb, subsequent encounter (ICD-10 - S67.01XD) Patient doing well. She may progress activity as tolerated. Discussed revision of nail plate for nail deformity, patient wishes to live with that at this time as it is not bothersome May, Injury of nail bed of finger of right hand, subsequent encounter (ICD-10 - S69.91XD) May, Other specified postprocedural states (ICD-10 - Z98.890) [facility] Other 07-26-2023 Evaluation note* Encounter Date Diagnosis Assessment Notes Treatment Notes Treatment Clinical Notes Feb, Crushing injury of right thumb, subsequent encounter (ICD-10 - S67.01XD) Patient instructed to keep cuticle moisturized and pushed back. Activity as tolerated Feb, Injury of nail bed o f finger of right hand, subsequent encounter (ICD-10 - S69.91XD) Feb, Other specified postprocedural states (ICD-10 - Z98.890) [facility] Other 06-01-2023 Evaluation note* Encounter Date Diagnosis Assessment Notes Treatment Notes Treatment Clinical Notes Jan, Crushing injury of right thumb, subsequent encounter (ICD-10 - S67.01XD) Discussed with patient to continue to progress activity as tolerated. Discussed with patient we will follow up in 8-10 weeks to recheck nailbed. Advised patient to call with any questions or concerns Jan, Injury of nail bed o f finger of right hand, subsequent encounter (ICD-10 - S69.91XD) Jan, Other specified postprocedural states (ICD-10 - Z98.890) [facility] Other 03-21-2023 Evaluation note* Encounter Date Diagnosis Assessment Notes Treatment Notes Treatment Clinical Notes Oct, Crushing injury of right thumb, subsequent encounter (ICD-10 - S67.01XD) Radiographs reviewed with patient today. Instructed patient to continue to Discussed with patient she can discontinue splint when at home, may continue to use for activities and when lifting heavy objects. Discussed she may progress activity as tolerated. Discussed with patient to continue off work at this time. Oct, Injury of nail bed o f finger of right hand, subsequent encounter (ICD-10 - S69.91XD) Oct, Other specified postprocedural states (ICD-10 - Z98.890) [facility] Other 02-28-2023 Evaluation note* Encounter Date Diagnosis Assessment Notes Treatment Notes Treatment Clinical Notes Sep, Crushing injury of right thumb, initial encounter (ICD-10 - S67.01XA) Patient instructed on the use of moisturizer for the nailbed. Return to work note given Sep, Injury of nail bed of right thumb, initial encounter (ICD-10 - S69.91XA) [facility] Other 02-14-2023 Evaluation note* Encounter Date Diagnosis Assessment Notes Treatment Notes Treatment Clinical Notes Sep, Crushing injury of right thumb, initial encounter (ICD-10 - S67.01XA) Patient instructed to continue with current wound care and use of stax splint. Continue off work Sep, Injury of nail bed of right thumb, initial encounter (ICD-10 - S69.91XA) [facility] Other 02-07-2023 Evaluation note* Encounter Date Diagnosis Assessment Notes Treatment Notes Treatment Clinical Notes Sep, Crushing injury of right thumb, initial encounter (ICD-10 - S67.01XA) Patient instructed to continue daily soaking. Rx given for Zofran due to vomitting from narcotics Sep, Injury of nail bed of right thumb, initial encounter (ICD-10 - S69.91XA) [facility] Other 01-31-2023 NotePROCEDURE: XR HAND RT MIN 3V HISTORY: Thumb injury COMPARISON: None. FINDINGS: BONES:Acute, nondisplaced fracture across diaphysis of distal phalanx of thumb. SOFT TISSUES:Soft tissue swelling of distal thumb. No radiopaque foreign body. There suggestive of small focus of subcutaneous air near base of nail bed suggesting soft tissue laceration. EFFUSION:None visible. OTHER: Negative. IMPRESSION: 1. Acute, nondisplaced fracture of first digit distal phalanx. Electronically authenticated by: MYAH LEAL Date: 2022-09-25 07:51[facility] [id number] NoteOPERATIVE NOTE OPERATION DATE: 09/12/2022 PREOPERATIVE DIAGNOSIS: Epigastric abdominal pain and gastroesophageal reflux disease. POSTOPERATIVE DIAGNOSIS: Antral gastritis, bile reflux and gastric erosion. PROCEDURE: EGD with antral biopsy. SURGEON: Sanjay Zuñiga M.D. ANESTHESIA: Monitored anesthesia care. ESTIMATED BLOOD LOSS: Less than 1 mL. INDICATIONS AND CONSENT: Patient is a 32-year-old female with history of intermittent epigastric abdominal pain, as well as gastroesophageal reflux disease. Indications, risks, benefits, alternatives of proceeding with EGD were explained extensively to the patient, including the risks of bleeding, aspiration, esophageal/gastric/duodenal perforation or anesthetic complications. All of her questions were answered. Informed consent was obtained. PROCEDURE: Patient was brought to the operating room, placed in the left lateral decubitus position. Monitored anesthesia care was provided. Bite block was placed in the patient's mouth. Scope was inserted into the oropharynx. Under direct visualization, it was advanced into the esophagus, past the cricopharyngeus, down to the stomach. The stomach was insufflated with air. The pylorus was traversed down to the descending portion of the duodenum. There was no evidence of duodenitis or ulceration. There was no scarring within the pyloric channel. Scope was pulled back into the stomach and retroflexed. There was no significant hiatal hernia. There was noted to be moderate, erythematous antral gastritis with some superficial erosions, as well as some mild to moderate bile reflux. Biopsy of the antrum x2 was obtained with pediatric cold biopsy forceps with good hemostasis. The GE junction was noted at approximately 37 cm. There was no distal esophagitis or Pulliam's changes. The remainder of the esophagus was unremarkable. The scope was then withdrawn. Patient tolerated procedure well, was sent to recovery room in good condition. CC: Patient's family physicianThe [facility] [id number] NoteChief Complaint consultation for RUQ pain HPI Staff 31 year old female presents on consultation from Dr. Brooke for epigastric pain. Reports several week history of epigastric pain and heartburn. Placed on Pantoprazole BID with improvement in symptoms. Denies nausea or vomiting. Reports several week history of daily loose stools. RUQ US completed 07/09with cholelithiasis. History of Present Illness 31 yo female with h/o htn, hypercholesterolemia, migraines, cervical radiculopathy, obesity, referred for RUQ abdominal pain; recent GB US with multiple tiny stones, normal cbd, no wall thickening; patient reports several week h/o intermittent epigastric pain, burning, ache; some heartburn into chest; no N/V; no dysphagia; no early satiety; had intermittent loose stools, which have improved, no melena or blood; no fatty food intolerance, worse after eating, acidic foods worse; occurs at night at times; no previous abdominal operations; on bid PPI with improvement; no asa or NSAID use. no tobacco use. Review of Systems PHQ Score Initial Depression Screen Score: 0 ROS - Provider Constitutional: no fever, no sweats, no weight loss. Eyes: no glasses, no blurred vision, no visual loss. ENMT: no dentures, no hoarseness, no swallowing difficulties, no hearing loss, no ear infection(s),no nose bleeds. Cardiovascular: normal blood pressure, no chest pain, regular heartbeat, no heart murmur. Respiratory: no shortness of breath, no cough, no asthma, no wheezing. Gastrointestinal: no nausea, no vomiting, no diarrhea, no constipation, no blood in stool, no change in bowel habits, mild abdominal pain, no hepatitis. Genitourinary: no kidney stones, no urine infection, no dysuria. Musculoskeletal: no pain, no weakness. Skin: no changing moles, no rash, no skin lumps. Neurologic: no seizures, no epilepsy, no headache. Psychiatric: no emotional or psychiatric problem. Heme/Lymph: no bleeding problems, no anemia, no blood clots, no transfusions. Allergy/Immunologic: no swollen lymph nodes/glands, no IV drug abuse. Other: Additional ROS info: Except as noted in the above Review of Systems and in the History of Present Illness, all other systems have been reviewed and are negative or noncontributory. Physical Exam Vitals & Measurements HR: 75(Peripheral) RR: 16 BP: 124/83 HT: 63 in HT: 160 cm WT: 113.5 kg WT: 249.7 lb BMI: 44.34 HEENT: normal conjunctiva, sclera clear, no scleral icterus, EOM intact, PERRLA, oral mucosa moist without lesions. Neck: trachea midline, no mass, symmetric, no thyromegaly or nodules, no adenopathy Respiratory: lungs CTA, respirations non labored. Cardiovascular: regular rate and rhythm, no murmur, no pedal edema or varicosities. Gastrointestinal: obese, soft, non distended, no tenderness, no masses, no palpable hernias, diastasis recti yes, no hepatosplenomegaly; normal bs Lymphatic: no cervical adenopathy, Musculoskeletal: normal gait, digits and nails without infection, nodes, cyanosis, clubbing. Skin: no rashes, no lesions, no ulcers, no subcutaneous nodules, induration. Psychiatric/Neuro: oriented to time, place, person, judgement normal, affect appropriate for age, insight intact, no focal deficits. Tests: l, x-rays reviewed, review of old records completed, Discussed surgical options, risks, and possible complications with patient. Assessment/Plan 1. Epigastric pain (R10.13: Epigastric pain) plan EGD under anesthesia for further evaluation, informed consent obtained. symptoms not consistent with biliary colic. 2. GERD (gastroesophageal reflux disease) (K21.9: Gastro-esophageal reflux disease without esophagitis) see # 1 3. Cholelithiasis (K80.20: Calculus of gallbladder without cholecystitis without obstruction) see # 1 Follow-up No qualifying data available Problem List/Past Medical History Ongoing BMI 40.0-44.9, adult Cervical radiculopathy Cholelithiasis Epigastric pain GERD (gastroesophageal reflux disease) History of pilonidal cyst HTN (hypertension) Hypercholesteremia Insomnia Migraines Morbid obesity Orthostatic hypotension Historical HTN - Hypertension Plantar fasciitis Tarsal tunnel syndrome Procedure/Surgical History tarsal tunnel release, right. percutaneous plantar fasciotomy via the Tenex device, ultrasound device (08/12/2014), Extraction of wisdom tooth, PILONIDAL CYST EXCISION, TARSAL TUNNEL RELEASE, Tonsillectomy. Medications acebutolol 200 mg Cap, 200 mg= 1 cap(s), Oral, BID hydrochlorothiazide-triamterene 50 mg-75 mg Tab, 1 tab(s), Oral, Daily losartan 25 mg Tab, 25 mg= 1 tab(s), Oral, Daily oxaprozin 600 mg Tab, 1200 mg= 2 tab(s), Oral, Daily Pantoprazole [address] Tab, 40 mg= 1 tab(s), Oral, BID SEROquel 100 mg Tab, 150 mg= 1.5 tab(s), Oral, Bedtime tiZANidine 4 mg Tab, 8 mg= 2 tab(s), Oral, Bedtime Wellbutrin XL 300 mg/24 hours Tab-ER, 300 mg= 1 tab(s), Oral, Daily Allergies SILVER (INFECTION) morphine (Chest pain) Socia (more content not included)...[facility] CenterComment on above: Result Comment: Electronically Signed By: SOL ESPINOZA, Sanjay Paredes\Date and Time Signed: 08/20/22 10:27 ESTEvaluation + Plan note No data available for this section [facility] [place] Evaluation noteNo assessment information available [facility] Work Phone: Evaluation noteNo InformationNortPenn Presbyterian Medical Center [employer] Other Hispxsg general Narrative - Reported* Type Description Date Medical History depression Medical History bradycardia Medical History tachycardia Surgical History tonsillectomy Surgical History pylenol cysts Surgical History wisdom teeth Surgical History plantar fasciitis, tarsal tunne l x 2 right foot [facility] [employer] Other Hislx[facility] general Narrative - Reported* Type Description Date Medical History depression Medical History bradycardia Medical History tachycardia Surgical History tonsillectomy Surgical History pylenol cysts Surgical History wisdom teeth Surgical History plantar fasciitis, tarsal tunne l x 2 right foot Surgical History right thumb I & D 09/28/2022 [facility] [employer] Other Hospital Discharge instructions No data available for this section [facility] [place] Progress note No data available for this section [facility] [place] Chief Complaint and Reason for Visit Chief Complaint crushing injury Chief Complaint crushing injury crushing injury Family History Relationship Condition Age at Onset Recorded Date/T fernando father Myocardial infarction Unknown Not Specified Type 2 diabetes mellitus Unknown Hypothyroidism Unknown Myocardial infarction Unknown Hypertension Unknown Mitral valve prolapse Unknown Advance Directives Advance Directive Response Recorded Date/ Time Advance Directives No September 26, 2022 12:53pm Advance Directive Response Recorded Date/ Time Advance Directives No September 26, 2022 1:53pm Summary Purpose Additional Source Comments Patient Care team informatio n (unrecognized section and content) Team Status: Inactive Member Role Status Dates Bonnie Jeffrey MD Attending Provider Active Donnell Brooke MD Primary Care Provider Active Team Status: Active Member Role Status Dates Donnell Brooke MD Primary Care Provider Active Team Status: Inactive Member Role Status Dates Donnell Brooke MD Primary Care Provider Active Bonnie Jeffrey MD Attending Provider Active Goals (unrecognized section and content) Goals may be documented in a n alternate section INFORMATION SOURCE (unrecogn ized section and content) DATE CREATED AUTHOR 09/29/2022 [facility] DATE CREATED AUTHOR AUTHOR'S ORGANIZ ATION 12/01/2022 [facility] DATE CREATED AUTHOR AUTHOR'S ORGANIZ ATION 12/15/2022 [place] REASON FOR VISIT (unrecogniz ed section and content) post opincision concernsRech geremias Right ThumbRecheck Right ThumbRecheck Right HandRecheck Right ThumbRecheck Right ThumbRecheck Right Hand FOR RECORDS PERTAINING TO PATIENTS WHO ARE OR HAVE BEEN ENROLLED IN A CHEMICAL DEPENDENCY/SUBSTANCEABUSE PROGRAM, SOME INFORMATION MAY BE OMITTED. This clinical summary was aggregated from multiple sources. Caution should be exercised in using it in the provision of clinical care. This summary normalizes information from multiple sources, and as a consequence, information in this document may materially change the coding, format and clinical context of patient data. In addition, data may be omitted in some cases. CLINICAL DECISIONS SHOULD BE BASED ON THE PRIMARY CLINICAL RECORDS. [employer] [facility]. provides no warranty or guarantee of the accuracy or completeness of information in this document.
--- NOTE | 2023-11-11 22:51 | ED_ITS ---
HPI - Headache General Chief Complaint: Headache Stated Complaint: HEADACHE Time Seen by Provider: 11/11/23 22:49 Source: patient Mode of arrival: walk-in Limitations: no limitations History of Present Illness HPI Narrative: presents complaining of migraine headache. Started around 6pm. Same as past migraines. Took 2 Imitrex at home and states they did not help. No vomiting. waves of nausea. Neck feels tight as in the past. No paresthesia or fever Related Data Home Medications Medication Instructions Recorded Confirmed acebutolol 200 mg capsule 200 mg PO BID 06/09/23 06/09/23 bupropion HCl 300 mg 24 hr tablet, 300 mg PO DAILY 06/09/23 06/09/23 extended release oxaprozin 600 mg tablet 600 mg PO DAILY 06/09/23 06/09/23 pantoprazole 40 mg tablet,delayed 40 mg PO Q12H 06/09/23 06/09/23 release phentermine 37.5 mg capsule 37.5 mg PO DAILY 06/09/23 06/09/23 tizanidine 4 mg tablet 8 mg PO BEDTIME 06/09/23 06/09/23 trazodone 50 mg tablet 50 mg PO BEDTIME 06/09/23 06/09/23 triamterene 75 1 tab PO DAILY 06/09/23 06/09/23 mg-hydrochlorothiazide 50 mg tablet Previous Rx's Medication Instructions Recorded tizanidine 4 mg tablet 4 mg PO TID #30 tabs 06/11/23 Allergies Allergy/AdvReac Type Severity Reaction Status Date / Time irbesartan Allergy Severe Verified 11/11/23 22:45 silver Allergy Severe Hives Verified 11/11/23 22:45 Review of Systems ROS Status of ROS 10 or more systems reviewed and unremark able except as noted in history and below [facility] Medical History (Updated 11/12/23 @ 01:04 by Gustavo Tavarez MD) Acute intractable headache ?R51.9 - Headache, unspecified (ICD-10) Social History Smoking status: Never smoker Exam Constitutional Vital Signs, click to edit/add: Last Vital Signs Temp 98.3 F 11/11/23 22:42 Pulse 70 11/12/23 00:00 Resp 18 11/12/23 00:00 BP 175/77 H 11/11/23 22:42 Pulse Ox 99 11/12/23 00:00 O2 Del Method Room Air 11/11/23 22:42 Common normals: no apparent distress, average body habitus, oriented x3, no limitations, healthy appearing, alert and well nourished Eye Common normals: EOMs intact bilaterally and conjunctivae normal Respiratory Common normals: normal respiratory effort, no retractions and no use of accessory muscles Cardio Common normals: regular rate, regular rhythm, S1 normal heart sound and S2 normal heart sound Extremity Common normals: normal to inspection and full ROM Neuro Common normals: oriented x3, CN's II-XII intact bilaterally, moves all extremities and no focal motor deficits Psych Appearance: grossly normal Course Vital Signs Vital signs: Vital Signs Temperature 98.3 F 11/11/23 22:42 Pulse Rate 77 11/11/23 22:42 Respiratory Rate 18 11/11/23 22:42 Blood Pressure 175/77 H 11/11/23 22:42 Pulse Oximetry 98 11/11/23 22:42 Oxygen Delivery Method Room Air 11/11/23 22:42 Temperature 98.3 F 11/11/23 22:42 Pulse Rate 70 11/12/23 00:00 Respiratory Rate 18 11/12/23 00:00 Blood Pressure 175/77 H 11/11/23 22:42 Pulse Oximetry 99 11/12/23 00:00 Oxygen Delivery Method Room Air 11/11/23 22:42 MDM - Headache MDM Narrative Medical decision making narrative: patient presents with migraine headache. treated in the ED and at the time of discharge her headache was better and she requested discharge Lab Data Labs: Lab Results 11/11/23 Range/Units 22:56 WBC 10.9 (4.0-11.0) 10^3/uL RBC 4.82 (4.20-5.40) 10^6/uL Hgb 12.7 (12.0-16.0) g/dL Hct 40.3 (36.0-48.0) % MCV 83.6 (81.0-99.0) fL MCH 26.3 L (26.7-34.0) pg MCHC 31.5 (29.9-35.2) g/dL RDW 14.0 (11.0-15.0) % Plt Count 312 (150-450) 10^3/uL MPV 9.3 L (9.5-13.5) fL Neut % (Auto) 92.0 H (43.0-75.0) % Lymph % (Auto) 5.6 L (20.5-60.0) % Creek % (Auto) 1.2 L (1.7-12.0) % Eos % (Auto) 0.4 L (0.9-7.0) % Baso % (Auto) 0.4 (0.2-2.0) % Neut # (Auto) 10.1 H (1.4-6.5) 10^3/uL Lymph # (Auto) 0.6 L (1.2-3.8) 10^3/uL Creek # (Auto) 0.1 L (0.3-0.8) 10^3/uL Eos # (Auto) 0.0 (0.0-0.7) 10^3/uL Baso # (Auto) 0.0 (0.0-0.1) 10^3/uL Abs Immat Gran (auto) 0.04 H (0.00-0.03) 10^3/uL Imm/Tot Granulo (auto) 0.4 (0.0-0.5) % Sodium 135 L (136-145) mmol/L Potassium 3.6 (3.5-5.1) mmol/L Chloride 98 (98-107) mmol/L Carbon Dioxide 26.6 (21.0-32.0) mmol/L Anion Gap 14.0 BUN 23.0 H (7.0-18.0) mg/dL Creatinine 1.38 H (0.55-1.02) mg/dL Est GFR ( Amer) 53 L (>=60) Est GFR (Non-Af Amer) 44 L (>=60) BUN/Creatinine Ratio 16.7 Glucose 157 H (74-106) mg/dL Calcium 8.7 (8.5-10.1) mg/dL Magnesium 2.1 (1.8-2.4) mg/dL Discharge Plan Discharge Stand Alone Forms: Portal Instructions Chief Complaint: Headache Clinical Impression: Migraine Patient Disposition: Home, Self-Care Prescriptions / Home Meds: No Action acebutolol 200 mg capsule 200 mg PO BID bupropion HCl 300 mg tablet extended release 24 hr 300 mg PO DAILY oxaprozin 600 mg tablet 600 mg PO DAILY pantoprazole 40 mg tablet,delayed release (DR/EC) 40 mg PO Q12H phentermine 37.5 mg capsule 37.5 mg PO DAILY tizanidine 4 mg tablet 8 mg PO BEDTIME trazodone 50 mg tablet 50 mg PO BEDTIME triamterene-hydrochlorothiazid 75-50 mg tablet 1 tab PO DAILY tizanidine 4 mg tablet 4 mg PO TID Qty: 30 0RF Rx Instructions: 1 po TID or 1 in am and 2 at hs Instructions: Migraine Headache (ED) Referrals: Felipe Brooke MD [Primary Care Provider] - 1 week
[2023-11-11 23:02] LABS: Basophils Percent Auto 0.4 % (0.2-2.0); Eosinophils Percent Auto 0.4 % (0.9-7.0); Hematocrit 40.3 % (36.0-48.0); Hemoglobin 12.7 g/dL (12.0-16.0); Immature Granulocytes Abs Auto 0.04 10^3/uL (0.00-0.03); Immature Granulocytes Pct Auto 0.4 % (0.0-0.5); Lymphocytes Absolute Auto 0.6 10^3/uL (1.2-3.8); Lymphocytes Percent Auto 5.6 % (20.5-60.0); Mean Corpuscular HGB Conc 31.5 g/dL (29.9-35.2); Mean Corpuscular Hemoglobin 26.3 pg (26.7-34.0); Mean Corpuscular Volume 83.6 fL (81.0-99.0); Mean Platelet Volume 9.3 fL (9.5-13.5); Monocytes Absolute Auto 0.1 10^3/uL (0.3-0.8); Monocytes Percent Auto 1.2 % (1.7-12.0); Neutrophils Absolute Auto 10.1 10^3/uL (1.4-6.5); Platelet Count 312 10^3/uL (150-450); Red Blood Count 4.82 10^6/uL (4.20-5.40); White Blood Count 10.9 10^3/uL (4.0-11.0)
[2023-11-11 23:11] LABS: BUN Creatinine Ratio 16.7; Calcium 8.7 mg/dL (8.5-10.1); Carbon Dioxide 26.6 mmol/L (21.0-32.0); Chloride 98 mmol/L (98-107); Estimated GFR (African America 53 (>=60); Estimated GFR (Non-African Ame 44 (>=60); Glucose 157 mg/dL (74-106); Potassium 3.6 mmol/L (3.5-5.1); Sodium 135 mmol/L (136-145)
[2023-11-11] MEDS: METOCLOPRAMIDE HCL 10 MG/2 ML VIAL IVP (23:21)
[2023-11-11] MEDS: DIPHENHYDRAMINE HCL 50 MG/ML (1ML) VIAL IV (23:21)
[2023-11-11] MEDS: METHYLPREDNISOLONE SOD SUCC PF 125 MG/2 ML VIAL IVP (23:21)
[2023-11-11 23:40] LABS: Magnesium 2.1 mg/dL (1.8-2.4)
[2023-11-12] VITALS: PULSE 70; RESP 18; O2SAT 99
[2023-11-12] MEDS: MAGNESIUM SULFATE IN WATER 2 GM/50 ML PREMIX IV (00:10)
[2023-11-12 01:13] VITALS: BP 150/80; PULSE 75; RESP 18; O2SAT 99
== END 2023-11-12 01:15 | disposition home or self-care (01) ==
PROVIDERS: Emergency Provider Internal Medicine; PCP Family Medicine
DX: G43.909 Migraine, unspecified, not intractable, without status migrainosus (principal); Z79.899 Other long term (current) drug therapy
CPT/HCPCS: 36415; 80048; 83735; 85025; 96365; 96375; 99284; J2930

== ENCOUNTER 2024-01-20 17:43 | Emergency (ER) | payer OTHER, SELFPAY ==
[2024-01-20 17:47] VITALS: BP 158/98; PULSE 67; TEMP 36.9; O2SAT 100; BMI 46.9
--- OUTSIDE RECORDS SUMMARY | 2024-01-20 17:50 | XMS_ITS ---
Patient Summarization (C-CDA 2.1 CCD) Created on: January 20, 2024 VERONICA ROSS : 1990 Sex: Female Author Organization Sample organization Care Team Providers Care Cook Cold Meat Name Role Phone Donnell Brooke Primary Care Physician MD Bonnie Jeffrey Attending Provider MD Donnell Brooke Primary Care Provider [phone] Edwardo PROVIDERDonnell Referring Unavailabl e NILL, Sanjay Gibbons Attending Unavailable NILL, Sanjay Gibbons Attending Unavailable NILL, Sanjay Gibbons Attending Unavailable NILL, Sanjay Gibbons Attending Unavailable Hoy PROVIDER, Donnell Referring Unavailabl e NILL, Sanjay Gibbons Attending Unavailable Bonnie Jeffrey Unavailable MD Bonnie Jeffrey Attending Provider MD Donnell Brooke Primary Care Provider [phone] MARTHAY ., DR JACOBO Primary Care Unavailable HOY ., DR JACOBO Admitting Unavailable HOY ., DR JACOBO Attending Unavailable HOY ., DR JACOBO Primary Care Unavailable NILL ., DR GRACE Admitting Unavailable NILL ., DR GRACE Consulting Unavailable [...] REINECK, DR SUJEY Anthony Consulting Unavailabl e ZIEBER, DR MYAH Gibbons Consulting Unavailable DIAB ., SOHAIL Consulting Unavailable MARKER ., DR EVGA Admitting Unavailable MARKER ., DR VEGA Consulting [...] [morphine] Drug Allergy 3 Chest pain (finding) [facility] [place] (14 sources) SILVER; Translations: [SILVER] Allergy to substance 4 INFECTION, Edema, silver wound pack reversed healing [facility] (4 sources) irbesartan; Translations: [irbesartan] Drug Allergy 3 Unknown Reaction [facility] (1 source) MORPHINE SUBSTITUTE; Translations: [MORPHINE SUBSTITUTE] Propensity to adverse reactions (disorder) [facility] (1 source) Morphine Drug Allergy [facility] Encounters Encounter Date Encounter Type Care Provider Facility Start: 06-12-2023 End: 06-12-2023 ambulatory Bonnie Calvey Other [facility] Other Start: 06-12-2023 Office outpatient vi sit 15 minutes Bonnie Calvey [facility] Start: 03-20-2023 End: 03-20-2023 ambulatory Bonnie Calvey Other [facility] Other Start: 03-20-2023 Office outpatient vi sit 15 minutes Bonnie Calvey [facility] Start: 01-24-2023 End: 01-24-2023 ambulatory Bonnie Calvey Other [facility] Other Start: 01-24-2023 Office outpatient vi sit 15 minutes Bonnie Calvey [facility] Start: 12-11-2022 End: 12-11-2022 ambulatory Bonnie R Calvey Facility:[facility] Start: 11-13-2022 End: 11-13-2022 ambulatory Bonnie R Calvey Facility:[facility] Start: 11-13-2022 End: 11-13-2022 Patient encounter procedure MD Donnell Brooke Work Phone: [facility] Start: 11-13-2022 End: 11-13-2022 ambulatory MD Donnell Brooke Work Phone: [facility] Work Phone: Start: 11-13-2022 Postop follow up vis it related to original px Bonnie Calvey [facility] Start: 10-23-2022 End: 10-23-2022 ambulatory Bonnie Calvey Other [facility] Other Start: 10-23-2022 Postop follow up vis it related to original px Bonnie Calvey [facility] Start: 10-10-2022 End: 10-11-[address] ODNNELL BROOKE . Facility: Start: 10-09-2022 End: 10-09-2022 ambulatory Bonnie Jeffrey Other [facility] Other Start: 10-09-2022 Postop follow up vis it related to original px Bonnie Calvey [facility] Start: 10-02-2022 End: 10-02-2022 ambulatory Bonniemelany Jeffrey Other [facility] Other Start: 10-02-2022 Postop follow up vis it related to original px Bonnie Calvey [facility] Start: 10-02-2022 Telephone encounter Bonnie Jeffrey [facility] Start: 09-28-2022 End: 09-28-2022 ambulatory Bonnie R Rachele Facility:[facility] Start: 09-28-2022 End: 09-28-2022 Admission to same day surgery center MD Donnell Brooke Work Phone: [facility] [place] Start: 09-26-2022 End: 09-26-2022 ambulatory Bonnie Cashyaniv Facility:[facility] Start: 09-26-2022 End: 09-26-2022 ambulatory MD Donnell Brooke Work Phone: [facility] Work Phone: Start: 09-26-2022 End: 09-26-2022 Patient encounter procedure MD Donnell Brooke Work Phone: [facility] Work Phone: Start: 09-25-2022 End: 09-25-[address] DONNELL BROOKE . Facility: Start: 09-21-2022 ambulatory Sanjay ZUÑIGA Facility :[facility] Start: 09-14-2022 Encounter for preprocedural laboratory examination DR SANJAY ZUÑIGA . [facility] Start: 09-12-2022 End: 09-13-2022 ambulatory Sanjay ZUÑIGA Facility:[id number] Start: 09-11-2022 End: 10-06-[address] DONNELL BROOKE . Facility: Start: 09-07-2022 End: 09-08-[address] DONNELL BROOKE . Facility:[facility] Start: 09-07-2022 End: 09-08-2022 Encounter for preprocedural laboratory examination DR DONNELL BROOKE . Facility: Start: 07-30-2022 End: 07-31-2022 ambulatory Donnell Brooke PROVIDER Facility:[facility] Start: 07-30-2022 End: 07-30-2022 Patient encounter procedure Sanjay ZUÑIGA [facility] Start: 07-10-2022 ambulatory Donnell Brooke PROVIDER Facility:[facility] Start: 07-09-2022 End: 07-10-[address] DONNELL BROOKE . Facility: Start: 07-04-2022 End: 07-05-[address] DONNELL BROOKE . Facility:[facility] Start: 07-02-2022 End: 07-03-[address] DONNELL BROOKE . Facility:[facility] Start: 06-29-2022 End: 06-30-[address] DONNELL BROOKE . Facility:[facility] Start: 06-28-2022 End: 06-29-[address] SILVIA LEAVITT . Facility: Start: 04-27-2022 Encounter for genera l adult medical examination without abnormal findings DR DONNELL BROOKE . [facility] Start: 04-26-2022 End: 04-27-[address] DONNELL BROOKE . Facility:[facility] Start: 04-26-2022 End: 04-27-2022 Encounter for general adult medical examination without abnormal findings DR DONNELL BROOKE . Facility: Start: 02-15-2022 End: 03-21-[address] DONNELL BROOKE . Facility: Goals Date Patient Goal Desired Activity /State Immunizations Immunization Date Immunization Notes Care Provider Fa cility NEGATED: Highlighted row has not occurred!07-30-2022 influenza virus vaccine, unspecified formulation Sanjay ZUÑIGA [facility] Medications Current Medications Medication Drug Class(es) Dates Sig (Normalized) Sig (Original) acebutolol 200 mg oral capsule (11 sources) beta-Adrenergic Ana Start: 09-26-2022 take 200 mg by mouth twice daily Acebutolol Active 200 MG PO Twice daily September 26, 2022 1:00am Start: 07-27-2022 take 1 capsule by mo [facility] twice daily acebutolol 200 mg Cap 200 mg = 1 cap(s), Oral, BID, Refills(s) 0 Start Date: 07/27/22 Status: Ordered take 1 capsule by mo [facility] every twenty-four hours Acebutolol HCl 200 [...] 2 TAB PO EVERY 4-6 HOURS 30 September 28, 2022 Start: 09-26-2022 take 1 tablet by alo every six hours Hydrocodone-Acetaminophen Active 1 TAB P O Q6H September 26, 2022 1:00am 24 hr buPROPion hydrochloride 300 mg extended release oral tablet (11 sources) Aminoketone Start: 09-26-2022 take 300 mg by mouth once daily in the morning Bupropion Hcl Active 300 MG PO Every morning September 26, 2022 1:00am Start: 07-27-2022 take 1 tablet by alo once daily Wellbutrin XL 300 mg/24 hours Tab-ER 300 mg = 1 tab(s), Oral, Daily, Refills(s) 0 Start Date: 07/27/22 Status: Ordered take 1 tablet by alo every twenty-four hours buPROPion HCl ER (SR) [...] by mouth once daily in the morning Triamterene-[place] chlorothiazid Active 1 TAB PO Every morning September 26, 2022 1:00am levonorgestrel 0.232309 mg/hr intrauterine system (2 sources) Progestin, Progestin-containing [...] Start: 07-27-2022 take 2 tablets by mo uth once daily oxaprozin 600 mg Tab 1,200 mg = 2 tab(s), Oral, Daily, Refills(s) 0 Start Date: 07/27/22 Status: Ordered pantoprazole 40 mg delayed release oral tablet (11 sources) Proton Pump Inhibitor Start: 09-26-2022 take 40 mg by mouth twice daily Pantoprazole Active 40 MG PO Twice daily September 26, 2022 1:00am Start: 07-30-2022 take 1 tablet by alo th twice daily Pantoprazole [address] Tab [...] 2022 1:00am take 1 tablet by alo every twelve hours Sucralfate 1 GM 1 [...] Start: 07-27-2022 take 2 tablets by mo ut at bedtime tiZANidine 4 mg Tab 8 mg = 2 tab(s), Oral, Bedtime, Refills(s) 0 Start Date: 07/27/22 Status: Ordered take 1 capsule by mo ut every eight hours tiZANidine HCl 4 MG 1 capsule as needed Orally Three times a day Active Payers Date Payer Category Payer Self-pay 2022 Unknown [id number] 1990 Unknown [id number] 2.16.8 [id number] 1990 Unknown [id number] 2.16.8 40.1.770770.3.579.2 1990 Unknown [id number] 2.16.8 40.1.360926.3.579.2.727 1990 Unknown [id number] 2.16.8 40.1.674752.3.579.2 1990 Unknown [id number] 2.16.8 40.1.754542.3.579.2.727 1990 Unknown [id number] 2.16.84 0.1.525218.3.579.2.593 1990 Unknown [id number] 2.16.84 0.1.857396.3.579.2.593 1990 Unknown [id number] 2.16.84 0.1.080034.3.579.2.593 1990 Unknown [id number] 2.16.84 0.1.170657.3.579.2.593 1990 Unknown [id number] 2.16.84 0.1.106110.3.579.2.593 1990 Unknown [id number] 2.16.84 0.1.918125.3.579.2.593 1990 Unknown [id number] 2.16.84 0.1.173363.3.579.2.593 1990 Unknown [id number] 2.16.84 0.1.080362.3.579.2.593 1990 Unknown [id number] 2.16.84 0.1.701135.3.579.2.593 1990 Unknown [id number] 2.16.84 0.1.535774.3.579.2.593 1990 Unknown [id number] 2.16.84 0.1.133234.3.579.2.593 1990 Unknown [id number] 2.16.84 0.1.948228.3.579.2.593 1959 Unknown [id number] [id number] Unknown [id number] 2.16.8 40.1.970636.3.579.2.531 Unknown [id number] 2.16.8 40.1.832538.3.579.2.531 Unknown [id number] 2.16.8 40.1.237436.3.579.2.531 Unknown [id number] 2.16.8 40.1.287492.3.579.2.531 Plan of Treatment Date Care Activity Detail Author Start: 09-28-2022 [facility] Start: 09-28-2022 [facility] Patient referral [facility] Work Phone: Problems Active Problems Problem Classification Problem Date [...] 09-28-2022 Episodic Other aftercare (1 source) Other nurse prn (current) drug therapy; Translations: [OTH TRANSFORMATION SPECIALIST CURRENT DRUG THERAPY] Onset: 09-18-2022 Episodic Other [...] [Radiculopathy, cervical region] Onset: 02-15-2022 07-27-2022 Episodic Procedures Date Procedure Procedure Detail Performing Clinician [...] NILL TARSAL TUNNEL RELEASE 1 Messi ael GEMMAL Comment on above: LEFT Tonsillectomy Sanjay ZUÑIGA Results Test Name Value Interpretation Reference Range Facility XR hand RT min 3V*on 023 XR hand RT min 3V* [facility] [address] [address] XRay Report Signed Patient: Veronica Ross MR#: [id number] : 1990 Acct:[id number] Age/Sex: 32 / F ADM Date: 12/11/22 Loc: [facility]: [facility]ending Dr: Bonnie Jeffrey MD Copies to: [...] STUDY. Impression dictated by: Willie Dong Jr., D.OSandee12/11/2022 4:55 PM Dictation Location: [place] [address] Transcribed By: [facility] 12/11/221654 Dictated By: Willie Dong Jr, DO 12/11/221652 Signed By: 12/11/22 165 Normal [facility] XR hand RT min 3V*on 023 XR hand RT min 3V* [facility] [address] XRay Report Signed Patient: Veronica Ross MR#: [id number] : 1990 Acct:[id number] Age/Sex: 32 / F ADM Date: 11/13/22 Loc: [facility] Room: Type: [facility] CLI Attending Dr: Bonnie Jeffrey MD [...] Kalpesh Murry M.D.11/13/2022 5:23 PM Dictation Location: [place] [address] Transcribed By: [facility] 11/13/221722 Dictated By: Kalpesh Murry II, MD 11/13/221721 Signed By: 11/13/221722 [facility] XR hand RT min 3V* [facility] [employer] Other XR hand RT min 3V* [facility] [employer] Other XR hand RT min 3V* [address] [place] [address] [facility] Other XR hand RT min 3V* [place] [address] [facility] Other XR hand RT min 3V* XRay Report [facility] Other XR hand RT min 3V* Signed [facility] Other XR hand RT min 3V* Patient: Veronica Ross MR#: [id number] [facility] Other XR hand RT min 3V* 7067 [facility] Other XR hand RT min 3V* : 1990 Acct:[id number] [facility] Other XR hand RT min 3V* Age/Sex: 32 / F ADM Date: 11/13/22 [facility] Other XR hand RT min 3V* Loc: [facility] Room: Type: [facility] Other XR hand RT min 3V* Attending Dr: Bonnie Jeffrey MD [facility] Other XR hand RT min 3V* Copies to: Bonnie Jeffrey MD [facility] Other XR hand RT min 3V* Ordering Provider: Bonnie Jeffrey MD [facility] Other XR hand RT min 3V* Date of Service: 11/13/22 [facility] Other XR hand RT min 3V* XR/XR hand RT min 3V*: Crushing injury of right thumb, subsequent [facility] Other XR hand RT min 3V* encounter [facility] Other XR hand RT min 3V* XR hand RT min 3V* 11/13/2022 3:49 PM [facility] Other XR hand RT min 3V* SIGNS AND SYMPTOMS: Status post incision and debridement of open fracture of right thumb, follow-up [facility] Other XR hand RT min 3V* PROTOCOL: Frontal, lateral, and oblique radiographs of the right hand [facility] Other XR hand RT min 3V* COMPARISON: 09/25/2022 [facility] Other XR hand RT min 3V* FINDINGS: [facility] Other XR hand RT min 3V* Healing/healed fracture of the distal phalanx of the right thumb. There is no change in alignment. [facility] Other XR hand RT min 3V* The joint spaces are preserved. No significant soft tissue swelling. [facility] Other XR hand RT min 3V* XR/XR hand RT min 3V* [facility] Other XR hand RT min 3V* IMPRESSION: [facility] Other XR hand RT min 3V* Impression dictated by: Kalpesh Murry M.D.11/13/2022 5:23 PM [employer] [facility] [employer] Other XR hand RT min 3V* Dictation Location: [address] [employer] Other XR hand RT min 3V* Transcribed By: SHAY 11/13/[address] [place] [address] [employer] Other XR hand RT min 3V* Dictated By: Kalpesh Murry II, MD 11/13/[address] [place] [address] [employer] Other XR hand RT min 3V* Signed By: [facility] Other XR hand RT min 3V* 11/13/[address] [place] [address] [employer] Other PROF CHEM 8 (BAS METB)on Anion gap [Moles/Vol] 11.0 mmol/L Normal [facility] Comment on above: Performed By: #### B MP #### [facility] [address] [place] [address] Dr. Shemar Armas Calcium [Mass/Vol] 8.8 mg/dL Normal 8.5-10.1 [facility] Comment on above: Performed By: #### B MP #### [facility] [address] [place] [address] Dr. Shemar Armas Chloride [Moles/Vol] 100 mmol/L Normal 98-107 [facility] Comment on above: Performed By: #### B MP #### [facility] [address] [place] [address] [address] Shemar Armas CO2 [Moles/Vol] 31.5 mmol/L Normal 21.0-32.0 [facility] Comment on above: Performed By: #### B MP #### [facility] [address] [place] [address] [address] Shemar Armas Creatinine [Mass/Vol] 1.18 mg/dL Critically high 0.55-1.02 [facility] Comment on above: Performed By: #### B MP #### [facility] [address] [place] [address] [address] Shemar Armas EGFR-AF NIGERIEN >60 Normal >=60 [facility] Comment on above: Performed By: #### B MP #### [facility] [address] [place] [address] [address] Shemar Armas EGFR-NON AF NIGERIEN 53 mL/min/1.73m2 Critically low >=60 [facility] Comment on above: Performed By: #### B MP #### [facility] [address] [place] [address] [address] Shemar Armas Glucose [Mass/Vol] 89 mg/dL Normal 74-106 [facility] Comment on above: Performed By: #### B MP #### [facility] [address] [place] [address] [address] Shemar Armas Potassium [Moles/Vol] 3.5 mmol/L Normal 3.5-5.1 [facility] Comment on above: Performed By: #### B MP #### [facility] [address] [place] [address] [address] Sehmar Armas Sodium [Moles/Vol] 139 mmol/L Normal 136-145 [facility] Comment on above: Performed By: #### B MP #### [facility] [address] [place] [address] [address] Shemar Armas Urea nitrogen [Mass/Vol] 11.0 mg/dL Normal 7.0-18.0 [facility] Comment on above: Performed By: #### B MP #### [facility] [address] [place] [address] [address] Shemar Armas Urea nitrogen/Creatinine [Mass ratio] 9.3 mg/mg Normal [facility] Comment on above: Performed By: #### B MP #### [facility] [address] [place] [address] [address] Shemar Armas HCG ( test) Aiden benjamin Ql (U)Ordered By: THOM DUNOG on 09-28-2022 HCG ( test) Ql (U) Negative [facility] HCG,Urineon 09-28-2022 Beta HCG ( test) Ql (U) Negative Normal [facility] Comment on above: Result Comment: PERF ORMED BY: [place] [address] PATHOLOGIST [employer] OPERATIONS SPECIALIST KWABENA MELVIN M.D. Performed By: #### U HCG #### [facility] [address] [place] [address] [place] Albumin [Mass/volume] in Ser um or PlasmaOrdered By: Bonnie Jeffrey on 09-26-2022 Albumin [Mass/Vol] 4.0 g/dL 3.2-5.5 [facility] Basophils Auto (Bld) [#/Vol] Ordered By: Bonnie Jeffrey on 09-26-2022 Basophils (Bld) [#/Vol] 0.1 10*3/uL 0.0-0.2 [facility] Basophils/100 WBC Auto (Bld) Ordered By: Bonnie Jeffrey on 09-26-2022 Basophils/100 WBC (Bld) 1.2 % . [facility] Complete Blood Count Auto Di ffon 09-26-2022 Basophils (Bld) [#/Vol] 0.1 10*3/uL Normal 0.0-0.2 [facility] Comment on above: Result Comment: PERF ORMED BY: [place] [address] PATHOLOGIST [employer]PER[employer] SPECIALIST KWABENA MELVIN M.D. Performed By: #### C BC, CMP #### [facility] [address] [place] [address] [place] Basophils/100 WBC (Bld) 1.2 % Normal . [facility] Comment on above: Performed By: #### C BC, CMP #### [facility] [address] [place] [address] [place] Eosinophils (Bld) [#/Vol] 0.1 10*3/uL Normal 0.0-0.45 [facility] Comment on above: Performed By: #### C BC, CMP #### [facility] [address] [place] [address] [place] Eosinophils/100 WBC (Bld) 0.9 % Normal . [facility] Comment on above: Performed By: #### C BC, CMP #### [facility] [address] Erythrocyte distribution width (RBC) [Ratio] 13.6 % Normal 11.9-15.3 [facility] Comment on above: Performed By: #### C BC, CMP #### [facility] [address] Hematocrit (Bld) [Volume fraction] 40.2 % Normal 34.0-46.4 [facility] Comment on above: Performed By: #### C BC, CMP #### [facility] [address] Hemoglobin (Bld) [Mass/Vol] 13.3 g/dL Normal 11.8-15.4 [facility] Comment on above: Performed By: #### C BC, CMP #### [facility] [address] Lymphocytes (Bld) [#/Vol] 1.7 10*3/uL Normal 1.00-4.8 [facility] Comment on above: Performed By: #### C BC, CMP #### [facility] [address] [place] [address] [place] Lymphocytes/100 WBC (Bld) 18.1 % Normal . [facility] Comment on above: Performed By: #### C BC, CMP #### [facility] [address] [place] [address] [place] MCH (RBC) [Entitic mass] 28.8 pg Normal 24.7-34.3 [facility] Comment on above: Performed By: #### C BC, CMP #### [facility] [address] [place] [address] [place] MCV (RBC) [Entitic vol] 87.1 fL Normal 80-100 [facility] Comment on above: Performed By: #### C BC, CMP #### [facility] [address] Mean Corpuscular HGB Conc 33.0 g/dL Normal 32.0-35.0 [facility] Comment on above: Performed By: #### C BC, CMP #### [facility] [address] [place] [address] [place] Monocytes (Bld) [#/Vol] 0.5 10*3/uL Normal 0.0-0.8 [facility] Comment on above: Performed By: #### C BC, CMP #### [facility] [address] [place] [id number] [place] Monocytes/100 WBC (Bld) 5.8 % Normal . [facility] Comment on above: Performed By: #### C BC, CMP #### [facility] [address] [place] [address] [place] Neutrophils (Bld) [#/Vol] 7.0 10*3/uL Normal 1.8-7.7 [facility] Comment on above: Performed By: #### C BC, CMP #### [facility] [address] Neutrophils/100 WBC (Bld) 74.0 % Normal . [facility] Comment on above: Performed By: #### C BC, CMP #### [facility] [address] [place] [address] [place] NRBC% 0.0 /100{WBC} Normal 0-0.5 [facility] Comment on above: Performed By: #### C BC, CMP #### [facility] [address] [place] [address] [place] Platelet mean volume (Bld) [Entitic vol] 7.8 fL Normal 6.3-10.7 [facility] Comment on above: Performed By: #### C BC, CMP #### [facility] [address] [place] [id number] [place] Platelets (Bld) [#/Vol] 335 10*3/uL Normal 150-450 [facility] Comment on above: Performed By: #### C BC, CMP #### [facility] [address] [place] [address] [place] RBC (Bld) [#/Vol] 4.62 10*6/uL Normal 3.60-5.00 [facility] Comment on above: Performed By: #### C BC, CMP #### [address] WBC (Bld) [#/Vol] 9.4 10*3/uL Normal 3.8-11.6 [facility] Comment on above: Performed By: #### C BC, CMP #### [address] Comprehensive Metabolic Pane [place] 09-26-2022 Albumin [Mass/Vol] 4.0 g/dL Normal 3.2-5.5 [facility] Comment on above: Performed By: #### C BC, CMP #### [address] Albumin/Globulin [Mass ratio] 1.4 {ratio} Normal [facility] Comment on above: Performed By: #### C BC, CMP #### [address] ALP [Catalytic activity/Vol] 45 U/L Normal 32-92 [facility] Comment on above: Result Comment: PERF ORMED BY: [place] [address] PATHOLOGIST [employer]PER[employer] SPECIALIST KWABENA MELVIN M.D. Performed By: #### C BC, CMP #### [address] ALT [Catalytic activity/Vol] 19 U/L Normal 10-60 [facility] Comment on above: Performed By: #### C BC, CMP #### [address] Anion gap [Moles/Vol] 13.8 mmol/L Normal 6.0-15.0 [facility] Comment on above: Performed By: #### C BC, CMP #### [address] AST [Catalytic activity/Vol] 17 U/L Normal 10-42 [facility] Comment on above: Performed By: #### C BC, CMP #### [address] Bilirubin [Mass/Vol] 0.5 mg/dL Normal 0.3-1.2 [facility] Comment on above: Performed By: #### C BC, CMP #### [facility] [address] [place] [id number] [facility] Calcium [Mass/Vol] 8.9 mg/dL Normal 8.2-10.2 [facility] Comment on above: Performed By: #### C BC, CMP #### [facility] [address] Chloride [Moles/Vol] 100 mmol/L Normal 95-114 [facility] Comment on above: Performed By: #### C BC, CMP #### [facility] [address] CO2 [Moles/Vol] 23.7 mmol/L Normal 22.0-30.0 [facility] Comment on above: Performed By: #### C BC, CMP #### [facility] [address] Creatinine [Mass/Vol] 1.82 mg/dL High 0.44-1.03 [facility] Comment on above: Performed By: #### C BC, CMP #### [facility] [address] Estimated GFR ( Perri 39 Normal [facility] Comment on above: Result Comment: GFR estimated reference range: According to KDOQI guidelines, <60 ml/min/1.73m2 is sufficient to diagnose a patient with chronic kidney disease. Performed By: #### C BC, CMP #### [facility] [address] [place] [id number] [place] Estimated GFR (Non- Am 32 Normal [facility] Comment on above: Performed By: #### C BC, CMP #### [facility] [address] [place] [address] [place] Globulin (S) [Mass/Vol] 2.8 g/dL Normal [facility] Comment on above: Performed By: #### C BC, CMP #### [facility] [address] [id number] [place] Glucose [Mass/Vol] 86 mg/dL Normal 70-100 [facility] Comment on above: Result Comment: [place] Glucose Reference Range is dependent on time and content of last meal. Glucose of more than 200 mg/dL in a nonstressed, ambulatory subject supports the diagnosis of Diabetes Mellitus. ADA recommended reference range Performed By: #### C BC, CMP #### [facility] [address] [place] [address] [place] Potassium [Moles/Vol] 3.5 mmol/L Normal 3.5-5.1 [facility] Comment on above: Performed By: #### C BC, CMP #### [facility] [address] [place] [address] [place] Protein [Mass/Vol] 6.8 g/dL Normal 6.1-7.9 [facility] Comment on above: Performed By: #### C BC, CMP #### [facility] [address] [place] [address] [place] Sodium [Moles/Vol] 134 mmol/L Low 136-146 [facility] Comment on above: Performed By: #### C BC, CMP #### [facility] [address] [place] [address] [place] Urea nitrogen [Mass/Vol] 25 mg/dL High 9-23 [facility] Comment on above: Performed By: #### C BC, CMP #### [facility] [address] [place] [address] [place] Creatinine and Glomerular fi ltration rate.predicted panel (S/P/Bld)Ordered By: Bonnie Jeffrey on 09-26-2022 Creatinine [Mass/Vol] 1.82 mg/dL 0.44-1.03 [facility] Eosinophils Auto (Bld) [#/Vo l]Ordered By: Bonnie Jeffrey on 09-26-2022 Eosinophils (Bld) [#/Vol] 0.1 10*3/uL 0.0-0.45 [facility] Eosinophils/100 WBC Auto (Bl d)Ordered By: Bonnie Jeffrey on 09-26-2022 Eosinophils/100 WBC (Bld) 0.9 % . [facility] Erythrocyte distribution wid th Auto (RBC) [Ratio]Ordered By: Bonnie Jeffrey on 09-26-2022 Erythrocyte distribution width (RBC) [Ratio] 13.6 % 11.9-15.3 [facility] Estimated glomerular filtrat ion rate (GFR) non- AmericanOrdered By: Bonnie Jeffrey on 09-26-2022 GFR/1.73 sq M.predicted among non-blacks MDRD (S/P/Bld) [Vol rate/Area] 32 mL/Min [facility] Globulin Calc (S) [Mass/Vol] Ordered By: Bonnie Jeffrey on 09-26-2022 Globulin (S) [Mass/Vol] 2.8 g/dL [facility] Hematocrit Auto (Bld) [Volum e fraction]Ordered By: Bonnie Jeffrey on 09-26-2022 Hematocrit (Bld) [Volume fraction] 40.2 % 34.0-46.4 [facility] Hemoglobin [Mass/volume] in BloodOrdered By: Bonnie Jeffrey on 09-26-2022 Hemoglobin (Bld) [Mass/Vol] 13.3 g/dL 11.8-15.4 [facility] Leukocytes [#/volume] correc franco for nucleated erythrocytes in Blood by Automated counOrdered By: Bonnie Jeffrey on 09-26-2022 WBC corrected for nucl RBC Auto (Bld) [#/Vol] 9.4 10*3/uL 3.8-11.6 [facility] Lymphocytes Auto (Bld) [#/Vo l]Ordered By: Bonnie Jeffrey on 09-26-2022 Lymphocytes (Bld) [#/Vol] 1.7 10*3/uL 1.00-4.8 [facility] Lymphocytes/100 WBC Auto (Bl d)Ordered By: Bonnie Jeffrey on 09-26-2022 Lymphocytes/100 WBC (Bld) 18.1 % . [facility] MCH Auto (RBC) [Entitic mass ]Ordered By: Bonnie Jeffrey on 09-26-2022 MCH (RBC) [Entitic mass] 28.8 pg 24.7-34.3 [facility] MCHC Auto (RBC) [Mass/Vol]Or dered By: Bonnie Jeffrey on 09-26-2022 MCHC (RBC) [Mass/Vol] 33.0 g/dL 32.0-35.0 [facility] MCV Auto (RBC) [Entitic vol] Ordered By: Bonnie Jeffrey on 09-26-2022 MCV (RBC) [Entitic vol] 87.1 fL 80-100 [facility] Monocytes Auto (Bld) [#/Vol] Ordered By: Bonnie Jeffrey on 09-26-2022 Monocytes (Bld) [#/Vol] 0.5 10*3/uL 0.0-0.8 [facility] Monocytes/100 WBC Auto (Bld) Ordered By: Bonnie Jeffrey on 09-26-2022 Monocytes/100 WBC (Bld) 5.8 % . [facility] Neutrophils Auto (Bld) [#/Vo l]Ordered By: Bonnie Jeffrey on 09-26-2022 Neutrophils (Bld) [#/Vol] 7.0 10*3/uL 1.8-7.7 [facility] Neutrophils/100 WBC Auto (Bl d)Ordered By: Bonnie Jeffrey on 09-26-2022 Neutrophils/100 WBC (Bld) 74.0 % . [facility] No Panel InformationOrdered By: Bonnie Jeffrey on 09-26-2022 Estimated GFR () 39 mL/Min [facility] Comment on above: GFR estimated refere nce range: According to KDOQI guidelines, <60 ml/min/1.73m2 is sufficient to diagnose a patient with chronic kidney disease. Pharmacy Creatinine Clearance (Chem N/A [facility] Nucleated erythrocytes [Pres ence] in Blood by Automated countOrdered By: Bonnie Jeffrey on 09-26-2022 Nucleated RBC Auto Ql (Bld) 0.0 /100{WBC} 0-0.5 [facility] Platelet mean volume Auto (B ld) [Entitic vol]Ordered By: Bonnie Jeffrey on 09-26-2022 Platelet mean volume (Bld) [Entitic vol] 7.8 fL 6.3-10.7 [facility] Platelets Auto (Bld) [#/Vol] Ordered By: Bonnie Jeffrey on 09-26-2022 Platelets (Bld) [#/Vol] 335 10*3/uL 150-450 [facility] Protein [Mass/volume] in Ser um or PlasmaOrdered By: Bonnie Jeffrey on 09-26-2022 Protein [Mass/Vol] 6.8 g/dL 6.1-7.9 [facility] RBC Auto (Bld) [#/Vol]Ordere d By: Bonnie Jeffrey on 09-26-2022 RBC (Bld) [#/Vol] 4.62 10*6/uL 3.60-5.00 [facility] Serum or plasma alanine kamara otransferase measurement without P-5'-P (enzymatic activiOrdered By: Bonnie Jeffrey on 09-26-2022 ALT No additional P-5'-P [Catalytic activity/Vol] 19 U/L 10-60 [facility] Serum or plasma albumin/glob ulin mass ratioOrdered By: Bonnie Jeffrey on 09-26-2022 Albumin/Globulin [Mass ratio] 1.4 {ratio} [facility] Serum or plasma alkaline mona sphatase measurement (enzymatic activity/volume)Ordered By: Bonnie Jeffrey on 09-26-2022 ALP [Catalytic activity/Vol] 45 U/L 32-92 [facility] Serum or plasma anion gap de terminationOrdered By: Bonnie Jeffrey on 09-26-2022 Anion gap [Moles/Vol] 13.8 mmol/L 6.0-15.0 [facility] Serum or plasma aspartate am inotransferase measurement (enzymatic activity/volume)Ordered By: Bonnie Jeffrey on 09-26-2022 AST [Catalytic activity/Vol] 17 U/L 10-42 [facility] Serum or plasma calcium sagrario urement (mass/volume)Ordered By: Bonnie Jeffrey on 09-26-2022 Calcium [Mass/Vol] 8.9 mg/dL 8.2-10.2 [facility] Serum or plasma chloride julieta surement (moles/volume)Ordered By: Bonnie Jeffrey on 09-26-2022 Chloride [Moles/Vol] 100 mmol/L 95-114 [facility] Serum or plasma glucose sagrario urement (mass/volume)Ordered By: Bonnie Jeffrey on 09-26-2022 Glucose [Mass/Vol] 86 mg/dL 70-100 [facility] Comment on above: ADA recommended refe rence rangeRandom Glucose Reference Range is dependent on time and content of last meal. Glucose of more than 200 mg/dL in a nonstressed, ambulatory subject supports the diagnosis of Diabetes Mellitus. Serum or plasma potassium me asurement (moles/volume)Ordered By: Bonnie Jeffrey on 09-26-2022 Potassium [Moles/Vol] 3.5 mmol/L 3.5-5.1 [facility] Serum or plasma sodium measu rement (moles/volume)Ordered By: Bonnie Jeffrey on 09-26-2022 Sodium [Moles/Vol] 134 mmol/L 136-146 [facility] Serum or plasma total biliru bin measurement (mass/volume)Ordered By: Bonnie Jeffrey on 09-26-2022 Bilirubin [Mass/Vol] 0.5 mg/dL 0.3-1.2 [facility] Serum or plasma total carbon dioxide measurement (moles/volume)Ordered By: Bonnie Jeffrey on 09-26-2022 CO2 [Moles/Vol] 23.7 mmol/L 22.0-30[facility]0 [facility] Serum or plasma urea nitroge n measurement (mass/volume)Ordered By: Bonnie Jeffrey on 09-26-2022 Urea nitrogen [Mass/Vol] 25 mg/dL 9-23 [facility] WBC Auto (Bld) [#/Vol]Ordere d By: Bonnie Jeffrey on 09-26-2022 WBC (Bld) [#/Vol] 9.4 10*3/uL 3.8-11.6 [facility] Operative Reporton 3 Operative Report [id number]#1.00CD:127 Normal [facility] Pathology Noteon 09-14-2022 Pathology Note [id number]#1.00CD:127 Normal [facility] PREG HCG QUALon 09-12-2022 , QUAL Negative Normal NEGATIVE [facility] Comment on above: Performed By: #### P REG #### [facility] [address], [place] [address] Dr. Shemar Armas Lab Reportson 09-10-2022 Lab Reports [id number]:127 Normal [facility] Covid-19 PCR (CVDTB)on 08-26 SARS-CoV-2 (COVID-19) RNA PADMINI+probe Ql (Unsp spec) Not detected Normal NOT DETECTED [facility] Comment on above: Result Comment: This test is not yet approved or cleared by the [place] FDA. When there are no FDA-approved or cleared tests available, and other criteria are met, FDA can make tests available under an emergency access mechanism called an Emergency Use Authorization (EUA). The EUA for this test is supported by the [place] of Health and Human Service's (HHS's) declaration [...] consistent with SARS-CoV-2. Performed By: #### [facility] #### [facility] [address], [place] [address] Dr. Shemar Armas ED Note-Physicianon 08-01-20 ED Note-Physician [id number]#[id number]:127 Normal [facility] Consent for Procedure/Surger yon 07-31-2022 Consent for Procedure/Surgery [id number]#1.00CD:127 Normal [facility] Physician Referralon 022 Physician Referral [id number]#[id number]:127 Normal [facility] US SINGLE QUAD RT UPPERon US SINGLE [...] by: THOM ANGELA Date: 2022-07-09 17:10 Normal [facility] US KIDNEYS BLADDERon 022 US KIDNEYS BLADDER EXAMINATION: US KIDNEYS BLADDER [...] by: THOM ANGELA Date: 2022-07-04 14:26 Normal [facility] CBC AUTO DIFFon 07-02-2022 BASO # 0.1 103/ul Normal 0.0-0.1 [facility] Comment on above: Performed By: #### C BC #### [facility] [address] [address] [address] Shemar Armas Basophils/100 WBC (Bld) 0.6 % Normal 0.2-2.0 T [facility] Comment on above: Performed By: #### C BC #### [facility] [address] [address] [address] Shemar Armas EO # 0.1 103/ul Normal 0.0-0.7 [facility] Comment on above: Performed By: #### C BC #### [facility] [address] [place] [address] Dr. Shemar Armas Eosinophils/100 WBC (Bld) 0.8 % Critically low 0.9-7.0 [facility] Comment on above: Performed By: #### C BC #### [facility] [address] [place] [address] Dr. Shemar Armas Erythrocyte distribution width (RBC) [Ratio] 14.6 % Normal 11.0-15.0 [facility] Comment on above: Performed By: #### C BC #### [facility] [address] [place] [address] Dr. Shemar Armas Hematocrit (Bld) [Volume fraction] 36.4 % Normal 36.0-48.0 [facility] Comment on above: Performed By: #### C BC #### [facility] [address] [place] [address] Dr. Shemar Armas Hemoglobin (Bld) [Mass/Vol] 12.2 g/dL Normal 12.0-16.0 [facility] Comment on above: Performed By: #### C BC #### [facility] [address] [place] [address] Dr. Shemar Armas IG # 0.04 10e3/ul Critically high 0.00-0.03 [facility] Comment on above: Performed By: #### C BC #### [facility] [address] [place] [address] Dr. Shemar Armas IG % 0.3 % Normal 0.0-0.5 [facility] Comment on above: Performed By: #### C BC #### [facility] [address] [place] [address] Dr. Shemar Armas LYMPH # 2.1 103/ul Normal 1.2-3.8 [facility] Comment on above: Performed By: #### C BC #### [facility] [address] [place] [address] Dr. Shemar Armas Lymphocytes/100 WBC (Bld) 18.7 % Critically low 20.5-60.0 [facility] Comment on above: Performed By: #### C BC #### [facility] [address] [place] [address] Dr. Shemar Armas MANUAL DIFF REQ NO Normal [facility] Comment on above: Performed By: #### C BC #### [facility] [address] [place] [address] Dr. Shemar Armas MCH (RBC) [Entitic mass] 29.6 pg Normal 26.7-34.0 [facility] Comment on above: Performed By: #### C BC #### [facility] [address] [place] [address] Dr. Shemar Armas MCHC (RBC) [Mass/Vol] 33.5 g/dL Normal 29.9-35.2 [facility] Comment on above: Performed By: #### C BC #### [facility] [address] [place] [address] Dr. Shemar Armas MCV (RBC) [Entitic vol] 88.3 fL Normal 81.0-99.0 [facility] Comment on above: Performed By: #### C BC #### [facility] [address] [place] [address] Dr. Shemar Armas MONO # 0.7 103/ul Normal 0.3-0.8 [facility] Comment on above: Performed By: #### C BC #### [facility] [address] [place] [address] Dr. Shemar Armas Monocytes/100 WBC (Bld) 6.2 % Normal 1.7-12.0 [facility] Comment on above: Performed By: #### C BC #### [facility] [address] [place] [address] Dr. Shemar Armas NEUT # 8.4 103/ul Critically high 1.4-6.5 [facility] Comment on above: Performed By: #### C BC #### [facility] [address] [address] [address] Shemar Armas Neutrophils/100 WBC (Bld) 73.4 % Normal 43.0-75.0 [facility] Comment on above: Performed By: #### C BC #### [facility] [address] [address] [address] Shemar Armas Platelet mean volume (Bld) [Entitic vol] 9.2 fL Critically low 9.5-13.5 [facility] Comment on above: Performed By: #### C BC #### [facility] [address] [address] [address] Shemar Armas PLT 331 103/ul Normal 150-450 [facility] Comment on above: Performed By: #### C BC #### [facility] [address] [address] [address] Shemar Armas RBC 4.12 106/ul Critically low 4.20-5.40 [facility] Comment on above: Performed By: #### C BC #### [facility] [address] [address] [address] Shemar Armas WBC 11.4 103/ul Critically high 4.0-11.0 [facility] Comment on above: Performed By: #### C BC #### [facility] [address] [address] [address] Shemar Armas PROF CHEM 8 (BAS METB)on Anion gap [Moles/Vol] 11.5 mmol/L Normal [facility] Comment on above: Performed By: #### B MP #### [facility] [address] [address] [address] Shemar Armas Calcium [Mass/Vol] 8.9 mg/dL Normal 8.5-10.1 [facility] Comment on above: Performed By: #### B MP #### [facility] [address] [address] [address] Shemar Armas Chloride [Moles/Vol] 102 mmol/L Normal 98-107 [facility] Comment on above: Performed By: #### B MP #### [facility] [address] [address] [address] Shemar Armas CO2 [Moles/Vol] 29.6 mmol/L Normal 21.0-32.0 [facility] Comment on above: Performed By: #### B MP #### [facility] [address] [address] [address] Shemar Armas Creatinine [Mass/Vol] 1.93 mg/dL Critically high 0.55-1.02 [facility] Comment on above: Performed By: #### B MP #### [facility] [address] [address] [address] Shemar Armas EGFR-AF NIGERIEN 37 mL/min/1.73m2 Critically low >=60 [facility] Comment on above: Performed By: #### B MP #### [facility] [address] [address] [address] Shemar Armas EGFR-NON AF NIGERIEN 30 mL/min/1.73m2 Critically low >=60 [facility] Comment on above: Performed By: #### B MP #### [facility] [address] [address] [address] Shemar Armas Glucose [Mass/Vol] 93 mg/dL Normal 74-106 [facility] Comment on above: Performed By: #### B MP #### [facility] [address] [address] [address] Shemar Armas Potassium [Moles/Vol] 4.1 mmol/L Normal 3.5-5.1 [facility] Comment on above: Performed By: #### B MP #### [facility] [address] [address] [address] Shemar Armas Sodium [Moles/Vol] 139 mmol/L Normal 136-145 [facility] Comment on above: Performed By: #### B MP #### [facility] [address] [address] [address] Shemar Armas Urea nitrogen [Mass/Vol] 22.0 mg/dL Critically high 7.0-18 .0 [facility] Comment on above: Performed By: #### B MP #### [facility] [address] [place] [address] Dr. Shemar Armas Urea nitrogen/Creatinine [Mass ratio] 11.4 mg/mg Normal [facility] Comment on above: Performed By: #### B MP #### [facility] [address] [place] [address] Dr. Shemar Armas BNPon 06-29-2022 Natriuretic peptide B (Bld) [Mass/Vol] 159.0 pg/mL Normal <=450.0 [facility] Comment on above: Performed By: #### B MP #### [facility] [address] [place] [address] Dr. Shemar Armas CBC AUTO DIFFon 06-29-2022 BASO # 0.0 103/ul Normal 0.0-0.1 [facility] Comment on above: Performed By: #### C BC #### [facility] [address] [place] [address] Dr. Shemar Armas BASO # 0.1 103/ul Normal 0.0-0.1 [facility] Comment on above: Performed By: #### P REG #### [facility] [address] [place] [address] Dr. Shemar Armas Basophils/100 WBC (Bld) 0.6 % Normal 0.2-2.0 [facility] Comment on above: Performed By: #### C BC #### [facility] [address] [place] [address] Dr. Shemar Armas Basophils/100 WBC (Bld) 0.7 % Normal 0.2-2.0 [facility] Comment on above: Performed By: #### P REG #### [facility] [address] [place] [address] Dr. Shemar Armas EO # 0.1 103/ul Normal 0.0-0.7 [facility] Comment on above: Performed By: #### C BC #### [facility] [address] [place] [address] Dr. Shemar Armas EO # 0.1 103/ul Normal 0.0-0.7 [facility] Comment on above: Performed By: #### P REG #### [facility] [address] [address] [address] Shemar Armas Eosinophils/100 WBC (Bld) 1.2 % Normal 0.9-7.0 [facility] Comment on above: Performed By: #### C BC #### [facility] [address] [address] [address] Shemar Armas Eosinophils/100 WBC (Bld) 1.4 % Normal 0.9-7.0 [facility] Comment on above: Performed By: #### P REG #### [facility] [address] [address] [address] Shemar Armas Erythrocyte distribution width (RBC) [Ratio] 14.4 % Normal 11.0-15.0 [facility] Comment on above: Performed By: #### C BC #### [facility] [address] [place] [address] Dr. Shemar Armas Erythrocyte distribution width (RBC) [Ratio] 14.5 % Normal 11.0-15.0 [facility] Comment on above: Performed By: #### P REG #### [facility] [address] [address] [address] Shemar Armas Hematocrit (Bld) [Volume fraction] 29.3 % Critically low 36.0-48.0 [facility] Comment on above: Performed By: #### C BC #### [facility] [address] [place] [address] Dr. Shemar Armas Hematocrit (Bld) [Volume fraction] 35.4 % Critically low 36.0-48.0 [facility] Comment on above: Performed By: #### P REG #### [facility] [address] [address] [address] Shemar Armas Hemoglobin (Bld) [Mass/Vol] 9.9 g/dL Critically low 12.0-16.0 [facility] Comment on above: Performed By: #### C BC #### [facility] [address] [address] [address] Sehmar Armas Hemoglobin (Bld) [Mass/Vol] 11.9 g/dL Critically low 12.0-16.0 [facility] Comment on above: Performed By: #### P REG #### [facility] [address] [address] [address] Shemar Armas IG # 0.04 10e3/ul Critically high 0.00-0.03 [facility] Comment on above: Performed By: #### C BC #### [facility] [address] [address] [address] Shemar Armas IG # 0.05 10e3/ul Critically high 0.00-0.03 [facility] Comment on above: Performed By: #### P REG #### [facility] [address] [place] [address] Dr. Shemar Armas IG % 0.6 % Critically high 0.0-0.5 [facility] Comment on above: Performed By: #### C BC #### [facility] [address] [place] [address] Dr. Shemar Armas IG % 0.5 % Normal 0.0-0.5 [facility] Comment on above: Performed By: #### P REG #### [facility] [address] [place] [address] Dr. Shemar Armas LYMPH # 1.5 103/ul Normal 1.2-3.8 [facility] Comment on above: Performed By: #### C BC #### [facility] [address] [place] [address] Dr. Shemar Armas LYMPH # 1.7 103/ul Normal 1.2-3.8 [facility] Comment on above: Performed By: #### P REG #### [facility] [address] [place] [address] Dr. Shemar Armas Lymphocytes/100 WBC (Bld) 20.1 % Critically low 20.5-60.0 [facility] Comment on above: Performed By: #### C BC #### [facility] [address] [place] [address] Dr. Shemar Armas Lymphocytes/100 WBC (Bld) 17.3 % Critically low 20.5-60.0 [facility] Comment on above: Performed By: #### P REG #### [facility] [address] [place] [address] Dr. Shemar Armas MANUAL DIFF REQ NO Normal [facility] Comment on above: Performed By: #### C BC #### [facility] [address] [place] [address] Dr. Shemar Armas MANUAL DIFF REQ NO Normal [facility] Comment on above: Performed By: #### P REG #### [facility] [address] [place] [address] Dr. Shemar Armas MCH (RBC) [Entitic mass] 29.9 pg Normal 26.7-34.0 [facility] Comment on above: Performed By: #### C BC #### [facility] [address] [place] [address] Dr. Shemar Armas MCH (RBC) [Entitic mass] 29.5 pg Normal 26.7-34.0 [facility] Comment on above: Performed By: #### P REG #### [facility] [address] [place] [address] Dr. Shemar Armas MCHC (RBC) [Mass/Vol] 33.8 g/dL Normal 29.9-35.2 [facility] Comment on above: Performed By: #### C BC #### [facility] [address] [place] [address] Dr. Shemar Armas MCHC (RBC) [Mass/Vol] 33.6 g/dL Normal 29.9-35.2 [facility] Comment on above: Performed By: #### P REG #### [facility] [address] [place] [address] Dr. Shemar Armas MCV (RBC) [Entitic vol] 88.5 fL Normal 81.0-99.0 [facility] Comment on above: Performed By: #### C BC #### [facility] [address] [place] [address] Dr. Shemar Armas MCV (RBC) [Entitic vol] 87.8 fL Normal 81.0-99.0 [facility] Comment on above: Performed By: #### P REG #### [facility] [address] [address] [address] Shemar Armas MONO # 0.5 103/ul Normal 0.3-0.8 [facility] Comment on above: Performed By: #### C BC #### [facility] [address] [address] [address] Shemar Armas MONO # 0.6 103/ul Normal 0.3-0.8 [facility] Comment on above: Performed By: #### P REG #### [facility] [address] [address] [address] Shemar Armas Monocytes/100 WBC (Bld) 7.5 % Normal 1.7-12.0 [facility] Comment on above: Performed By: #### C BC #### [facility] [address] [place] [address] Dr. Shemar Armas Monocytes/100 WBC (Bld) 6.3 % Normal 1.7-12.0 [facility] Comment on above: Performed By: #### P REG #### [facility] [address] [place] [address] Dr. Shemar Armas NEUT # 5.1 103/ul Normal 1.4-6.5 [facility] Comment on above: Performed By: #### C BC #### [facility] [address] [place] [address] Dr. Shemar Armas NEUT # 7.1 103/ul Critically high 1.4-6.5 [facility] Comment on above: Performed By: #### P REG #### [facility] [address] [place] [address] Dr. Shemar Armas Neutrophils/100 WBC (Bld) 70.0 % Normal 43.0-75.0 [facility] Comment on above: Performed By: #### C BC #### [facility] [address] [place] [address] Dr. Shemar Armas Neutrophils/100 WBC (Bld) 73.8 % Normal 43.0-75.0 [facility] Comment on above: Performed By: #### P REG #### [facility] [address] [address] [address] Shemar Armas Platelet mean volume (Bld) [Entitic vol] 9.2 fL Critically low 9.5-13.5 [facility] Comment on above: Performed By: #### C BC #### [facility] [address] [address] [address] Shemar Armas Platelet mean volume (Bld) [Entitic vol] 9.4 fL Critically low 9.5-13.5 [facility] Comment on above: Performed By: #### P REG #### [facility] [address] [address] [address] Shemar Armas PLT 225 103/ul Normal 150-450 [facility] Comment on above: Performed By: #### C BC #### [facility] [address] [place] [address] Dr. Shemar Armas PLT 350 103/ul Normal 150-450 [facility] Comment on above: Performed By: #### P REG #### [facility] [address] [place] [address] Dr. Shemar Armas RBC 3.31 106/ul Critically low 4.20-5.40 [facility] Comment on above: Performed By: #### C BC #### [facility] [address] [place] [address] Dr. Shemar Armas RBC 4.03 106/ul Critically low 4.20-5.40 [facility] Comment on above: Performed By: #### P REG #### [facility] [address] [place] [address] Dr. Shemar Armas WBC 7.2 103/ul Normal 4.0-11.0 [facility] Comment on above: Performed By: #### C BC #### [facility] [address] [place] [address] Dr. Shemar Armas WBC 9.6 103/ul Normal 4.0-11.0 [facility] Comment on above: Performed By: #### P REG #### [facility] [address] [place] [address] Dr. Shemar Armas IRONon 06-29-2022 Iron [Mass/Vol] 110.0 ug/dL Normal 50.0-170.0 [facility] Comment on above: Performed By: #### P REG #### [facility] [address] [place] [address] Dr. Shemar Armas PROF 14(COMP METB)on 022 Albumin [Mass/Vol] 3.3 g/dL Critically low 3.4-5.0 [facility] Comment on above: Performed By: #### B MP #### [facility] [address] [place] [address] Dr. Shemar Armas Albumin [Mass/Vol] 4.0 g/dL Normal 3.4-5.0 [facility] Comment on above: Performed By: #### P REG #### [facility] [address] [place] [address] Dr. Shemar Armas Albumin/Globulin [Mass ratio] 1.1 {ratio} Normal [facility] Comment on above: Performed By: #### B MP #### [facility] [address] [place] [address] Dr. Shemar Armas Albumin/Globulin [Mass ratio] 1.1 {ratio} Normal [facility] Comment on above: Performed By: #### P REG #### [facility] [address] [place] [address] Dr. Shemar Armas ALP [Catalytic activity/Vol] 55 U/L Normal 46-116 [facility] Comment on above: Performed By: #### B MP #### [facility] [address] [place] [address] Dr. Shemar Armas ALP [Catalytic activity/Vol] 57 U/L Normal 46-116 [facility] Comment on above: Performed By: #### P REG #### [facility] [address] [place] [address] Dr. Shemar Armas ALT [Catalytic activity/Vol] 21 U/L Normal 14-59 [facility] Comment on above: Performed By: #### B MP #### [facility] [address] [place] [address] Dr. Shemar Armas ALT [Catalytic activity/Vol] 26 U/L Normal 14-59 [facility] Comment on above: Performed By: #### P REG #### [facility] [address] [place] [address] Dr. Shemar Armas Anion gap [Moles/Vol] 8.1 mmol/L Normal [facility] Comment on above: Performed By: #### B MP #### [facility] [address] [address] [address] Shemar Armas Anion gap [Moles/Vol] 10.0 mmol/L Normal [facility] Comment on above: Performed By: #### P REG #### [facility] [address] [place] [address] Dr. Shemar Armas AST [Catalytic activity/Vol] 13 U/L Critically low 15-37 [facility] Comment on above: Performed By: #### B MP #### [facility] [address] [place] [address] Dr. Shemar Armas AST [Catalytic activity/Vol] 15 U/L Normal 15-37 [facility] Comment on above: Performed By: #### P REG #### [facility] [address] [place] [address] Dr. Shemar Armas Bilirubin [Mass/Vol] 0.1 mg/dL Critically low 0.2-1.0 [facility] Comment on above: Performed By: #### B MP #### [facility] [address] [place] [address] Dr. Shemar Armas Bilirubin [Mass/Vol] 0.2 mg/dL Normal 0.2-1.0 [facility] Comment on above: Performed By: #### P REG #### [facility] [address] [address] [address] Shemar Armas Calcium [Mass/Vol] 7.5 mg/dL Critically low 8.5-10.1 [facility] Comment on above: Performed By: #### B MP #### [facility] [address] [place] [address] Dr. Shemar Armas Calcium [Mass/Vol] 8.8 mg/dL Normal 8.5-10.1 [facility] Comment on above: Performed By: #### P REG #### [facility] [address] [address] [address] Shemar Armas Chloride [Moles/Vol] 107 mmol/L Normal 98-107 [facility] Comment on above: Performed By: #### B MP #### [facility] [address] [address] [address] Shemar Armas Chloride [Moles/Vol] 105 mmol/L Normal 98-107 [facility] Comment on above: Performed By: #### P REG #### [facility] [address] [address] [address] Shemar Armas CO2 [Moles/Vol] 24.5 mmol/L Normal 21.0-32.0 [facility] Comment on above: Performed By: #### B MP #### [facility] [address] [address] [address] Shemar Armas CO2 [Moles/Vol] 26.8 mmol/L Normal 21.0-32.0 [facility] Comment on above: Performed By: #### P REG #### [facility] [address] [address] [address] Shemar Armas Creatinine [Mass/Vol] 2.03 mg/dL Critically high 0.55-1.02 [facility] Comment on above: Performed By: #### B MP #### [facility] [address] [address] [address] Shemar Armas Creatinine [Mass/Vol] 1.60 mg/dL Critically high 0.55-1.02 [facility] Comment on above: Performed By: #### P REG #### [facility] [address] [address] [address] Shemar Armas EGFR-AF NIGERIEN 35 mL/min/1.73m2 Critically low >=60 [facility] Comment on above: Performed By: #### B MP #### [facility] [address] [address] [address] Shemar Armas EGFR-AF NIGERIEN 46 mL/min/1.73m2 Critically low >=60 [facility] Comment on above: Performed By: #### P REG #### [facility] [address] [address] [address] Shemar Armas EGFR-NON AF NIGERIEN 29 mL/min/1.73m2 Critically low >=60 [facility] Comment on above: Performed By: #### B MP #### [facility] [address] [address] [address] Shemar Armas EGFR-NON AF NIGERIEN 38 mL/min/1.73m2 Critically low >=60 [facility] Comment on above: Performed By: #### P REG #### [facility] [address] [address] [address] Shemar Armas Globulin (S) [Mass/Vol] 2.9 g/dL Normal [facility] Comment on above: Performed By: #### B MP #### [facility] [address] [address] [address] Shemar Armas Globulin (S) [Mass/Vol] 3.5 g/dL Normal [facility] Comment on above: Performed By: #### P REG #### [facility] [address] [address] [address] Shemar Armas Glucose [Mass/Vol] 111 mg/dL Critically high 74-106 [facility] Comment on above: Performed By: #### B MP #### [facility] [address] [address] [address] Shemar Armas Glucose [Mass/Vol] 98 mg/dL Normal 74-106 [facility] Comment on above: Performed By: #### P REG #### [facility] [address] [address] [address] Shemar Armas Potassium [Moles/Vol] 3.6 mmol/L Normal 3.5-5.1 [facility] Comment on above: Performed By: #### B MP #### [facility] [address] [address] [address] Shemar Armas Potassium [Moles/Vol] 3.8 mmol/L Normal 3.5-5.1 [facility] Comment on above: Performed By: #### P REG #### [facility] [address] [address] [address] Shemar Armas Protein [Mass/Vol] 6.2 g/dL Critically low 6.4-8.2 [facility] Comment on above: Performed By: #### B MP #### [facility] [address] [address] [address] Shemar Armas Protein [Mass/Vol] 7.5 g/dL Normal 6.4-8.2 [facility] Comment on above: Performed By: #### P REG #### [facility] [address] [address] [address] Shemar Armas Sodium [Moles/Vol] 136 mmol/L Normal 136-145 [facility] Comment on above: Performed By: #### B MP #### [facility] [address] [address] [address] Shemar Armas Sodium [Moles/Vol] 138 mmol/L Normal 136-145 [facility] Comment on above: Performed By: #### P REG #### [facility] [address] [address] [address] Shemar Armas Urea nitrogen [Mass/Vol] 28.0 mg/dL Critically high 7.0-18 .0 [facility] Comment on above: Performed By: #### B MP #### [facility] [address] [address] [address] Shemar Armas Urea nitrogen [Mass/Vol] 24.0 mg/dL Critically high 7.0-18 .0 [facility] Comment on above: Performed By: #### P REG #### [facility] [address] [address] [address] Shemar Armas Urea nitrogen/Creatinine [Mass ratio] 13.8 mg/mg Normal [facility] Comment on above: Performed By: #### B MP #### [facility] [address] [address] [address] Shemar Armas Urea nitrogen/Creatinine [Mass ratio] 15.0 mg/mg Normal [facility] Comment on above: Performed By: #### P REG #### [facility] [address] [place] [address] Dr. Shemar Armas TROPONIN, HIGH SENSITIVITYon 06-29-2022 HSTROP 4.8 pg/mL Normal 4.0-51.3 [facility] Comment on above: Result Comment: CUT- OFF POINTS HAVE BEEN ESTABLISHED BASED ON THE FOURTH UNIVERSAL DEFINITIONS OF MYOCARDIAL INFARCTION. THE UPPER REFERENCE LIMIT (URL) OF TROPONIN, DEFINED THE 99TH PERCENTILE OF cTnI DISTRIBUTION IN A REFERENCE POPULATION, HAS BEEN CONFIRMED THE DECISION THRESHOLD FOR [place] DIAGNOSIS. Performed By: #### B MP #### [facility] [address] [place] [address] Dr. Shemar Armas INSULINon 04-27-2022 Insulin 15.8 uIU/mL Normal 2.6-24.9 [facility] Comment on above: Performed By: #### I NSULIN #### [facility] [address] [place] [address] Dr. Shemar Armas T4, T3U, FTI LABCORPon 04-27 Free Thyroxine Index 3.1 Normal 1.2-4.9 [facility] Comment on above: Performed By: #### T HYLC #### [facility] [address] [place] [address] Dr. Shemar Armas T3 Uptake 31 % Normal 24-39 [facility] Comment on above: Performed By: #### T HYLC #### [facility] [address] [place] [address] Dr. Shemar Armas T4 [Mass/Vol] 10.1 ug/dL Normal 4.5-12.0 [facility] Comment on above: Performed By: #### T HYLC #### [facility] [address] [place] [address] Dr. Shemar Armas CBC AUTO DIFFon 04-26-2022 BASO # 0.1 103/ul Normal 0.0-0.1 [facility] Comment on above: Performed By: #### B MP #### [facility] [address] [place] [address] Dr. Shemar Armas Basophils/100 WBC (Bld) 0.7 % Normal 0.2-2.0 [facility] Comment on above: Performed By: #### B MP #### [facility] [address] [address] [address] Shemar Armas EO # 0.1 103/ul Normal 0.0-0.7 [facility] Comment on above: Performed By: #### B MP #### [facility] [address] [address] [address] Shemar Armas Eosinophils/100 WBC (Bld) 0.9 % Normal 0.9-7.0 [facility] Comment on above: Performed By: #### B MP #### [facility] [address] [place] [address] Dr. Shemar Armas Erythrocyte distribution width (RBC) [Ratio] 13.7 % Normal 11.0-15.0 [facility] Comment on above: Performed By: #### B MP #### [facility] [address] [place] [address] Dr. Shemar Armas Hematocrit (Bld) [Volume fraction] 41.8 % Normal 36.0-48.0 [facility] Comment on above: Performed By: #### B MP #### [facility] [address] [place] [address] Dr. Shemar Armas Hemoglobin (Bld) [Mass/Vol] 13.9 g/dL Normal 12.0-16.0 [facility] Comment on above: Performed By: #### B MP #### [facility] [address] [place] [address] Dr. Shemar Armas IG # 0.03 10e3/ul Normal 0.00-0.03 [facility] Comment on above: Performed By: #### B MP #### [facility] [address] [place] [address] Dr. Shemar Armas IG % 0.3 % Normal 0.0-0.5 [facility] Comment on above: Performed By: #### B MP #### [facility] [address] [place] [address] Dr. Shemar Armas LYMPH # 1.8 103/ul Normal 1.2-3.8 [facility] Comment on above: Performed By: #### B MP #### [facility] [address] [place] [address] Dr. Shemar Armas Lymphocytes/100 WBC (Bld) 21.0 % Normal 20.5-60.0 [facility] Comment on above: Performed By: #### B MP #### [facility] [address] [place] [address] Dr. Shemar Armas MANUAL DIFF REQ NO Normal [facility] Comment on above: Performed By: #### B MP #### [facility] [address] [place] [address] Dr. Shemar Armas MCH (RBC) [Entitic mass] 28.8 pg Normal 26.7-34.0 [facility] Comment on above: Performed By: #### B MP #### [facility] [address] [place] [address] Dr. Shemar Armas MCHC (RBC) [Mass/Vol] 33.3 g/dL Normal 29.9-35.2 [facility] Comment on above: Performed By: #### B MP #### [facility] [address] [place] [address] Dr. Shemar Armas MCV (RBC) [Entitic vol] 86.7 fL Normal 81.0-99.0 [facility] Comment on above: Performed By: #### B MP #### [facility] [address] [place] [address] Dr. Shemar Armas MONO # 0.7 103/ul Normal 0.3-0.8 [facility] Comment on above: Performed By: #### B MP #### [facility] [address] [place] [address] Dr. Shemar Armas Monocytes/100 WBC (Bld) 7.9 % Normal 1.7-12.0 [facility] Comment on above: Performed By: #### B MP #### [facility] [address] [place] [address] Dr. Shemar Armas NEUT # 6.0 103/ul Normal 1.4-6.5 [facility] Comment on above: Performed By: #### B MP #### [facility] [address] [address] [address] Shemar Armas Neutrophils/100 WBC (Bld) 69.2 % Normal 43.0-75.0 [facility] Comment on above: Performed By: #### B MP #### [facility] [address] [address] [address] Shemar Armas Platelet mean volume (Bld) [Entitic vol] 9.7 fL Normal 9.5-13.5 [facility] Comment on above: Performed By: #### B MP #### [facility] [address] [address] [address] Shemar Armas PLT 322 103/ul Normal 150-450 [facility] Comment on above: Performed By: #### B MP #### [facility] [address] [place] [address] Dr. Shemar Armas RBC 4.82 106/ul Normal 4.20-5.40 [facility] Comment on above: Performed By: #### B MP #### [facility] [address] [place] [address] Dr. Shemar Armas WBC 8.7 103/ul Normal 4.0-11.0 [facility] Comment on above: Performed By: #### B MP #### [facility] [address] [place] [address] Dr. Shemar Armas GLYCOHEMOGLOBIN A1Con 2021 ADA RECOMMENDATION SEE BELOW Normal [facility] Comment on above: Result Comment: ADA RECOMMENDED LIMIT 4.0 - 6.0 ADA THERAPEUTIC TARGET < 7.0 ACTION SUGGESTED > 7.0 Performed By: #### P REG #### [facility] [address] [place] [address] Dr. Shemar Armas Glucose [Mass/Vol] 108 mg/dL Normal [facility] Comment on above: Performed By: #### P REG #### [facility] [address] [place] [address] Dr. Shemar Armas HbA1c (Bld) [Mass fraction] 5.4 % Normal 4.5-6.2 [facility] Comment on above: Performed By: #### P REG #### [facility] [address] [address] [address] Shemar Armas IRONon 04-26-2022 Iron [Mass/Vol] 55.0 ug/dL Normal 50.0-170.0 [facility] Comment on above: Performed By: #### I CYNDI #### [facility] [address] [address] [address] Shemar Armas LIPID PROFILEon 04-26-2022 CHOL-HDL RATIO NORM SEE BELOW Normal [facility] Comment on above: Result Comment: 3.3 - 4.4 LOW RISK 4.4 - 7.1 AVERAGE RISK 7.1 - 11.0 MODERATE RISK >11.0 HIGH RISK Performed By: #### P REG #### [facility] [address] [place] [address] Dr. Shemar Armas Cholesterol [Mass/Vol] 205 mg/dL Critically high <=200 [facility] Comment on above: Performed By: #### P REG #### [facility] [address] [place] [address] Dr. Shemar Armas Cholesterol in HDL [Mass/Vol] 57 mg/dL Normal 40-60 [facility] Comment on above: Performed By: #### P REG #### [facility] [address] [place] [address] Dr. Shemar Armas Cholesterol in LDL [Mass/Vol] 126.8 mg/dL Normal [facility] Comment on above: Performed By: #### P REG #### [facility] [address] [place] [address] Dr. Shemar Armas Cholesterol.total/Choles terol in HDL [Mass ratio] 3.6 {ratio} Normal [facility] Comment on above: Performed By: #### P REG #### [facility] [address] [place] [address] Dr. Shemar Armas HDL NORMAL > or = 60 mg/dl - LOW CARDIOVASCULAR RISK <40 mg/dl - HIGH CARDIOVASCULAR RISK Normal [facility] Comment on above: Performed By: #### P REG #### [facility] [address] [place] [address] Dr. Shemar Armas LDL CALC NORMAL SEE BELOW Normal [facility] Comment on above: Result Comment: <100 mg/dl OPTIMAL 100 - 129 mg/dl NEAR OR ABOVE OPTIMAL 130 - 159 mg/dl BORDERLINE HIGH 160 - 189 mg/dl HIGH >190 mg/dl VERY HIGH Performed By: #### P REG #### [facility] [address] [address] [address] Shemar Armas Triglyceride [Mass/Vol] 106 mg/dL Normal <=150 [facility] Comment on above: Performed By: #### P REG #### [facility] [address] [address] [address] Shemar Armas VLDL CALC 21.2 mg/dL Normal [facility] Comment on above: Performed By: #### P REG #### [facility] [address] [address] [address] Shemar Armas PROF 14(COMP METB)on 022 Albumin [Mass/Vol] 4.3 g/dL Normal 3.4-5.0 [facility] Comment on above: Performed By: #### T SH, CMP, LIPID #### [facility] [address] [address] [address] Shemar Armas Albumin/Globulin [Mass ratio] 1.2 {ratio} Normal [facility] Comment on above: Performed By: #### T SH, CMP, LIPID #### [facility] [address] [address] [address] Shemar Armas ALP [Catalytic activity/Vol] 62 U/L Normal 46-116 [facility] Comment on above: Performed By: #### T SH, CMP, LIPID #### [facility] [address] [address] [address] Shemar Armas ALT [Catalytic activity/Vol] 34 U/L Normal 14-59 [facility] Comment on above: Performed By: #### T SH, CMP, LIPID #### [facility] [address] [address] [address] Shemar Armas Anion gap [Moles/Vol] 13.7 mmol/L Normal [facility] Comment on above: Performed By: #### T SH, CMP, LIPID #### [facility] [address] [address] [address] Shemar Armas AST [Catalytic activity/Vol] 22 U/L Normal 15-37 [facility] Comment on above: Performed By: #### T SH, CMP, LIPID #### [facility] [address] [address] [address] Shemar Armas Bilirubin [Mass/Vol] 0.3 mg/dL Normal 0.2-1.0 [facility] Comment on above: Performed By: #### T SH, CMP, LIPID #### [facility] [address] [address] [address] Shemar Armas Calcium [Mass/Vol] 9.1 mg/dL Normal 8.5-10.1 [facility] Comment on above: Performed By: #### T SH, CMP, LIPID #### [facility] [address] [address] [address] Shemar Armas Chloride [Moles/Vol] 98 mmol/L Normal 98-107 [facility] Comment on above: Performed By: #### T SH, CMP, LIPID #### [facility] [address] [address] [address] Shemar Armas CO2 [Moles/Vol] 29.9 mmol/L Normal 21.0-32.0 [facility] Comment on above: Performed By: #### T SH, CMP, LIPID #### [facility] [address] [address] [address] Shemar Armas Creatinine [Mass/Vol] 1.27 mg/dL Critically high 0.55-1.02 [facility] Comment on above: Performed By: #### T SH, CMP, LIPID #### [facility] [address] [place] [address] Dr. Shemar Armas EGFR-AF NIGERIEN 59 mL/min/1.73m2 Critically low >=60 [facility] Comment on above: Performed By: #### T SH, CMP, LIPID #### [facility] [address] [address] [address] Shemar Armas EGFR-NON AF NIGERIEN 49 mL/min/1.73m2 Critically low >=60 [facility] Comment on above: Performed By: #### T SH, CMP, LIPID #### [facility] [address] [place] [address] Dr. Shemar Armas Globulin (S) [Mass/Vol] 3.6 g/dL Normal [facility] [facility] Comment on above: Performed By: #### T SH, CMP, LIPID #### [facility] [address] [place] [address] Dr. Shemar Armas Glucose [Mass/Vol] 92 mg/dL Normal 74-106 [facility] Comment on above: Performed By: #### T DERRELL, CMP, LIPID #### [facility] [address] [place] [address] Dr. Shemar Armas Potassium [Moles/Vol] 3.6 mmol/L Normal 3.5-5.1 [facility] Comment on above: Performed By: #### T SH, CMP, LIPID #### [facility] [address] [place] [address] Dr. Shemar Armas Protein [Mass/Vol] 7.9 g/dL Normal 6.4-8.2 [facility] Comment on above: Performed By: #### T DERRELL, CMP, LIPID #### [facility] [address] [place] [address] Dr. Shemar Armas Sodium [Moles/Vol] 138 mmol/L Normal 136-145 [facility] Comment on above: Performed By: #### T SH, CMP, LIPID #### [facility] [address] [place] [address] Dr. Shemar Armas Urea nitrogen [Mass/Vol] 16.0 mg/dL Normal 7.0-18.0 [facility] Comment on above: Performed By: #### T SH, CMP, LIPID #### [facility] [address] [place] [address] Dr. Shemar Armas Urea nitrogen/Creatinine [Mass ratio] 12.6 mg/mg Normal [facility] Comment on above: Performed By: #### T SH, CMP, LIPID #### [facility] [address] [address] [address] Shemar Armas TSHon 04-26-2022 TSH 3.031 uIU/mL Normal 0.358-3.740 [facility] Comment on above: Performed By: #### P REG #### [facility] [id number] Shemar Armas Social History Date Type Detail Facility Start: 07-30-2022 End: 09-28-2022 Tobacco smoking status Never smoked tobacco (finding) [facility] Start: 1990 Sex Assigned At Female [facility] Tobacco smoking status Never [facility] Sex Assigned At Female [facility] Vital Signs Date Time Vital Sign Value Performing Clinician Facility 10-02-2022 16:00-0500 Body height 160.02 cm Bonnie BitLit Other [facility] Other 10-02-2022 16:00-0500 Body mass index (BMI) [Ratio] 42.69 kg/m2 Bonnie [facility] Other [facility] Other 10-02-2022 16:00-0500 Body weight 109.32 kg Bonniemelany Jeffrey Other [facility] Other 09-28-2022 15:55-0500 Diastolic blood pressure 60 mm[Hg] MD Donnell Brooke Work Phone: [facility] 09-28-2022 15:55-0500 Heart rate 76 /min MD Donnell Brooke Work Phone: [facility] 09-28-2022 15:55-0500 Respiratory rate 16 /min MD Donnell Brooke Work Phone: [facility] 09-28-2022 15:55-0500 SaO2% (BldA) [Mass fraction] 98 % MD Donnell Brooke Work Phone: [facility] 09-28-2022 15:55-0500 Systolic blood pressure 123 mm[Hg] MD Donnell Brooke Work Phone: [facility] 09-28-2022 14:33-0500 Body height 162.56 cm MD Donnell Brooke Work Phone: [facility] 09-28-2022 14:33-0500 Body mass index (BMI) [Ratio] 41.6 kg/m2 MD Donnell Brooke Work Phone: [facility] 09-28-2022 14:33-0500 Body weight 110 kg MD Donnell Brooke Work Phone: [facility] 09-28-2022 12:25-0500 Body temperature 98 [degF] MD Donnell Brooke Work Phone: [facility] 07-30-2022 15:29-0500 Blood Pressure Location Sanjay MNEENDEZL [facility] 07-30-2022 15:29-0500 Diastolic blood pressure 83 mm[Hg] Sanjay MENENDEZL [facility] 07-30-2022 15:29-0500 Heart rate 75 /min Sanjay MENENDEZL [facility] 07-30-2022 15:29-0500 Respiratory rate 16 /min Sanjay MENENDEZL [facility] 07-30-2022 15:29-0500 Systolic blood pressure 124 mm[Hg] Sanjay NILL [facility] Functional Status Date Assessment Result Facility 07-30-2022 Functional Status N/A [facility] Clinical Notes 08-20-2022 to 06-12-2023 Note [...] Other specified postprocedural states (ICD-10 - Z98.890) [facility] Other 07-26-2023 Evaluation note* Encounter Date Diagnosis Assessment Notes Treatment Notes Treatment Clinical Notes Feb, Crushing injury of right thumb, subsequent encounter (ICD-10 - S67.01XD) Patient instructed to keep cuticle moisturized and pushed back. Activity as tolerated Feb, Injury of nail bed o f finger of right hand, subsequent encounter (ICD-10 - S69.91XD) Feb, Other specified postprocedural states (ICD-10 - Z98.890) [facility] Other 06-01-2023 Evaluation note* Encounter Date Diagnosis [...] Other specified postprocedural states (ICD-10 - Z98.890) [facility] Other 03-21-2023 Evaluation note* Encounter Date Diagnosis [...] Other specified postprocedural states (ICD-10 - Z98.890) [facility] Other 02-28-2023 Evaluation note* Encounter Date Diagnosis Assessment Notes Treatment Notes Treatment Clinical Notes Sep, Crushing injury of right thumb, initial encounter (ICD-10 - S67.01XA) Patient instructed on the use of moisturizer for the nailbed. Return to work note given Sep, Injury of nail bed of right thumb, initial encounter (ICD-10 - S69.91XA) [facility] Other 02-14-2023 Evaluation note* Encounter Date Diagnosis Assessment Notes Treatment Notes Treatment Clinical Notes Sep, Crushing injury of right thumb, initial encounter (ICD-10 - S67.01XA) Patient instructed to continue with current wound care and use of stax splint. Continue off work Sep, Injury of nail bed of right thumb, initial encounter (ICD-10 - S69.91XA) [facility] Other 02-07-2023 Evaluation note* Encounter Date Diagnosis Assessment Notes Treatment Notes Treatment Clinical Notes Sep, Crushing injury of right thumb, initial encounter (ICD-10 - S67.01XA) Patient instructed to continue daily soaking. Rx given for Zofran due to vomitting from narcotics Sep, Injury of nail bed of right thumb, initial encounter (ICD-10 - S69.91XA) [facility] Other 01-31-2023 NotePROCEDURE: XR HAND RT MIN [...] Electronically authenticated by: MYAH LEAL Date: 2022-09-25 07:51[facility]01-18-2023 NoteOPERATIVE NOTE OPERATION DATE: 09/12/2022 PREOPERATIVE DIAGNOSIS: [...] in good condition. CC: [facility]'s [facility] physicianThe [facility] [id number] NoteChief Complaint consultation for RUQ pain HPI [...] morphine (Chest pain) Socia (more content not included)...[facility] Result Comment: Electronically Signed By: SOL ESPINOZA, Sanjay Paredes\Date and Time Signed: 08/20/22 10:27 ESTEvaluation + Plan note No data available for this section [facility] Evaluation noteNo assessment information available [facility] Work Phone: Evaluation noteNo InformationNortWarren General Hospital [employer] Other [facility] general Narrative - Reported* Type Description Date Medical History depression Medical History bradycardia Medical History tachycardia Surgical History tonsillectomy Surgical History pylenol cysts Surgical History wisdom teeth Surgical History plantar fasciitis, tarsal tunne l x 2 right foot [employer] [facility] [employer] Other [facility] general Narrative - Reported* Type Description Date Medical History depression Medical History bradycardia Medical History tachycardia Surgical History tonsillectomy Surgical History pylenol cysts Surgical History wisdom teeth Surgical History plantar fasciitis, tarsal tunne l x 2 right foot Surgical History right thumb I & D 09/28/2022 [facility] [employer] Other Hospital Discharge instructions No data available for this section [facility] Progress note No data available for this section [facility] Chief Complaint and Reason for Visit Chief [...] Team Status: Inactive Member Role Status Dates Donenll Brooke MD Primary Care Provider Active Bonnie Jeffrey MD Attending Provider Active Goals (unrecognized section and content) Goals may be documented in a n alternate section INFORMATION SOURCE (unrecogn ized section and content) DATE CREATED AUTHOR [facility]/29/2022 [facility] DATE CREATED AUTHOR AUTHOR'S ORGANIZ ATION [facility]01/2022 [facility] DATE CREATED AUTHOR AUTHOR'S ORGANIZ ATION 12/15/[address] [facility] REASON FOR VISIT (unrecogniz ed section and [...] BE BASED ON THE PRIMARY CLINICAL RECORDS. [facility]. provides no warranty or guarantee of the accuracy or completeness of information in this document.
[2024-01-20] MEDS: TETRACAINE HCL 0.5% OP SOL 80 DROP/4 ML BOTTLE OP (18:02)
[2024-01-20] MEDS: FLUORESCEIN SODIUM 1 MG STRIP OP (18:02)
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
[2024-01-20] MEDS: ERYTHROMYCIN OP OINT 0.5% 1 GM TUBE OP (18:29)
== END 2024-01-20 18:32 | disposition home or self-care (01) ==
PROVIDERS: Emergency Provider Emergency Medicine; PCP Family Medicine
DX: S05.02XA Injury of conjunctiva and corneal abrasion without foreign body, left eye, initial encounter (principal); W50.0XXA Accidental hit or strike by another person, initial encounter
CPT/HCPCS: 99284

== ENCOUNTER 2024-03-26 15:26 | Emergency (ER) | payer OTHER, SELFPAY ==
[2024-03-26 15:31] VITALS: BP 157/99; PULSE 83; TEMP 36.6; O2SAT 99; BMI 45.2
--- NOTE | 2024-03-26 15:48 | CT_ITS ---
[address] [address] Patient Name: JAREK FIELD MRN: [id number] date: 1990 Sex: F Assigned Patient Location: ER Current Patient Location: ER Accession/Order Number: [id number] Exam Date: 03/26/2024 16:37 Report Date: 03/26/2024 17:26 At the request of: BERE LEE Procedure: CT abdomen pelvis w con EXAM: CT abdomen pelvis w con Comparison: None available. CLINICAL INDICATION: Right upper quadrant pain. TECHNIQUE: Axial images through the abdomen and pelvis were obtained with intravenous contrast. Coronal and sagittal reconstructions were obtained. Dose reduction techniques were achieved by using automated exposure control and/or adjustment of mA and/or kV according to patient size and/or use of iterative reconstruction technique. CONTRAST: 98 mL of Omnipaque 300 was administered intravenously. FINDINGS: LOWER CHEST: The visualized portions of the lung bases are clear. LIVER: Unremarkable. GALLBLADDER: Unremarkable. BILE DUCTS: Unremarkable. PANCREAS: Unremarkable. SPLEEN: Unremarkable. ADRENALS: Unremarkable. KIDNEYS/URETERS: Unremarkable. BLADDER: Unremarkable. PELVIC STRUCTURES: IUD in place, appears slightly low-lying and possibly malpositioned. No adnexal masses. No significant pelvic free fluid. Probable right ovarian dominant follicle. GI TRACT: Evaluation of bowel limited by fecal contents and lack of distention. No evidence of bowel obstruction. No evidence of acute appendicitis. VASCULAR STRUCTURES: Unremarkable. LYMPH NODES: No pathologic lymphadenopathy by CT size criteria. PERITONEUM: No free air. No abscess. SOFT TISSUES: Unremarkable. OSSEOUS STRUCTURES: No acute osseous abnormality. No suspicious osseous lesions. CT/CT abdomen pelvis w con IMPRESSION: 1. No acute process identified to explain right upper quadrant pain. 2. IUD in place, appears slightly low-lying and possibly malpositioned. Electronically authenticated by: ILENE SOLORZANO Date: 03/26/2024 17:26
--- OUTSIDE RECORDS SUMMARY | 2024-03-26 15:54 | XMS_ITS | CCD ---
Author Organization [facility] Providers Care Pin Drafter Name Role Phone Donnell Brooke Primary Care Physician MD Bonnie Jeffrey Attending Provider [phone] MD Donnell Brooke Primary Care Provider [phone] Edwardo PROVIDERDonnell Referring Unavailabl e NILL, Sanjay Gibbons Attending Unavailable NILL, Sanjay Gibbons Attending Unavailable NILL, Sanjay Gibbons Attending Unavailable NILL, Sanjay Gibbons Attending Unavailable Hoy PROVIDERDonnell Referring Unavailabl e NILL, Sanjay Gibbons Attending Unavailable Bonnie Jeffrey Unavailable MD Bonnie Jeffrey Attending Provider MD Donnell Brooke Primary Care Provider [phone] 3 MAR[address] ., DR JACOBO Primary Care [...] [morphine] Drug Allergy 3 Chest pain (finding) [facility] [place] (14 sources) SILVER; Translations: [SILVER] Allergy to substance 4 INFECTION, Edema, silver wound pack reversed healing [facility] (4 sources) irbesartan; Translations: [irbesartan] Drug Allergy 3 Unknown Reaction [facility] (1 source) MORPHINE SUBSTITUTE; Translations: [MORPHINE SUBSTITUTE] Propensity to adverse reactions (disorder) [facility] (1 source) Morphine Drug Allergy [facility] Medications Current Medications Medication Drug Class(es) Dates Sig (Normalized) Sig (Original) acebutolol 200 mg oral capsule (11 sources) beta-Adrenergic Ana Start: 09-26-2022 take 200 mg by mouth twice daily Acebutolol Active 200 MG PO Twice daily September 26, 2022 1:00am Start: 07-27-2022 take 1 capsule by mo [facility] twice daily acebutolol 200 mg Cap 200 mg = 1 cap(s), Oral, BID, Refills(s) 0 Start Date: 07/27/22 Status: Ordered take 1 capsule by mo [facility] every twenty-four hours Acebutolol HCl 200 [...] by mouth once daily in the morning Triamterene-[place] chlorothiazid Active 1 TAB PO Every morning September 26, 2022 1:00am levonorgestrel 0.503292 mg/hr intrauterine system (2 sources) Progestin, Progestin-containing [...] Start: 07-27-2022 take 2 tablets by mo [facility] once daily oxaprozin 600 mg Tab 1,200 mg = 2 tab(s), Oral, Daily, Refills(s) 0 Start Date: 07/27/22 Status: Ordered pantoprazole 40 mg delayed release oral tablet (11 sources) Proton Pump Inhibitor Start: 09-26-2022 take 40 mg by mouth twice daily Pantoprazole Active 40 MG PO Twice daily September 26, 2022 1:00am Start: 07-30-2022 take 1 tablet by alo twice daily Pantoprazole [address] Tab 40 mg = 1 tab(s), Oral, BID, Refills(s) 0 Start Date: 07/30/22 Status: Ordered take 1 tablet by alo every twenty-four hours Pantoprazole Sodium 40 MG [...] Start: 07-27-2022 take 2 tablets by mo [facility] at bedtime tiZANidine 4 mg Tab 8 mg = 2 tab(s), Oral, Bedtime, Refills(s) 0 Start Date: 07/27/22 Status: Ordered take 1 capsule by [facility] every eight hours tiZANidine HCl 4 MG [...] 09-28-2022 Episodic Other aftercare (1 source) Other snf (current) drug therapy; Translations: [OTH SHELTER CURRENT DRUG THERAPY] Onset: 09-18-2022 Episodic Other [...] 3V*on 023 XR hand RT min 3V* [facility] Main [address] [address] XRay Report Signed Patient: Veronica Ross MR#: [id number] : 1990 Acct:[id number] Age/Sex: 32 / F ADM Date: 12/11/22 Loc: [facility] Room: Type: REG CLI Attending Dr: Bonnie Jeffrey MD Copies [...] STUDY. Impression dictated by: Willie Dong Jr., DSandeeOSandee12/11/2022 4:55 PM Dictation Location: [place] [address] Transcribed By: [facility] 12/11/22 165 Dictated By: Willie Dong Jr, DO 12/11/221652 Signed By: 12/11/22 1655 Normal [facility] XR hand RT min 3V*on 023 XR hand RT min 3V* [facility] Main [address] [address] XRay Report Signed Patient: Veronica Ross MR#: [id number] : 1990 Acct:[id number] Age/Sex: 32 / F ADM Date: 11/13/22 Loc: [facility] Room: Type: REG CLI Attending Dr: Bonnie Jeffrey MD Copies [...] Kalpesh Murry M.D.11/13/2022 5:23 PM Dictation Location: [place] [address] Transcribed By: [facility] 11/13/22 172 Dictated By: Kalpesh Murry II, MD 11/13/22 172 Signed By: 11/13/22 172 Normal [facility] XR hand RT min 3V* [facility] [employer] Other XR hand RT min 3V* [facility] [employer] Other XR hand RT min 3V* [address] [place] [address] [employer] Other XR hand RT min 3V* [place] [address] [facility] [employer] Other XR hand RT min 3V* XRay Report [employer] Other XR hand RT min 3V* Signed [employer] Other XR hand RT min 3V* Patient: Veronica Ross MR#: [id number] [employer] Other XR hand RT min 3V* 7067 [employer] Other XR hand RT min 3V* : 1990 Acct:[id number] [employer] Other XR hand RT min 3V* Age/Sex: 32 / F ADM Date: 11/13/22 [employer] Other XR hand RT min 3V* Loc: [facility] [employer] Other XR hand RT min 3V* Attending Dr: Bonnie Jeffrey MD [employer] Other XR hand RT min 3V* Copies to: Bonnie Jeffrey MD [employer] Other XR hand RT min 3V* Ordering Provider: Bonnie Jeffrey MD [employer] Other XR hand RT min 3V* Date of Service: 11/13/22 [employer] Other XR hand RT min 3V* XR/XR hand RT min 3V*: Crushing injury of right thumb, subsequent [employer] Other XR hand RT min 3V* encounter [employer] Other XR hand RT min 3V* XR hand RT min 3V* 11/13/2022 3:49 PM [employer] Other XR hand RT min 3V* SIGNS AND SYMPTOMS: Status post incision and debridement of open fracture of right thumb, follow-up [employer] Other XR hand RT min 3V* PROTOCOL: Frontal, lateral, and oblique radiographs of the right hand [employer] Other XR hand RT min 3V* COMPARISON: 09/25/2022 [employer] Other XR hand RT min 3V* FINDINGS: [employer] Other XR hand RT min 3V* Healing/healed fracture of the distal phalanx of the right thumb. There is no change in alignment. [employer] Other XR hand RT min 3V* The joint spaces are preserved. No significant soft tissue swelling. [employer] Other XR hand RT min 3V* XR/XR hand RT min 3V* [employer] Other XR hand RT min 3V* IMPRESSION: [employer] Other XR hand RT min 3V* Impression dictated by: Kalpesh Murry M.D.11/13/2022 5:23 PM [employer] Other XR hand RT min 3V* Dictation Location: [place] [address] [facility] [employer] Other XR hand RT min 3V* Transcribed By: PWS 11/13/[address] [place] [address] [employer] Other XR hand RT min 3V* Dictated By: Kalpesh Murry II, MD 11/13/[address] [place] [address] [employer] Other XR hand RT min 3V* Signed By: [employer] Other XR hand RT min 3V* 11/13/[address] [place] [address] [employer] Other PROF CHEM 8 (BAS METB)on Anion gap [Moles/Vol] 11.0 mmol/L Normal [facility] Comment on above: Performed By: #### B MP #### [facility] [address] [place] [address] Dr. Shemar Armas Calcium [Mass/Vol] 8.8 mg/dL Normal 8.5-10.1 [facility] Comment on above: Performed By: #### B MP #### [facility] [address] [place] [address] [address] Shemar Armas Chloride [Moles/Vol] 100 mmol/L Normal 98-107 [facility] Comment on above: Performed By: #### B MP #### [facility] [address] [place] [address] Dr. Shemar Armas CO2 [Moles/Vol] 31.5 mmol/L Normal 21.0-32.0 [facility] Comment on above: Performed By: #### B MP #### [facility] [address] [place] [address] [address] Shemar Armas Creatinine [Mass/Vol] 1.18 mg/dL Critically high 0.55-1.02 [facility] Comment on above: Performed By: #### B MP #### [facility] [address] [place] [address] [address] Shemar Armas EGFR-AF GREEK >60 Normal >=60 [facility] Comment on above: Performed By: #### B MP #### [facility] [address] [place] [address] [address] Shemar Armas EGFR-NON AF GREEK 53 mL/min/1.73m2 Critically low >=60 [facility] Comment on above: Performed By: #### B MP #### [facility] [address] [place] [address] [address] Shemar Armas Glucose [Mass/Vol] 89 mg/dL Normal 74-106 [facility] Comment on above: Performed By: #### B MP #### [facility] [address] [place] [address] [address] Shemar Armas Potassium [Moles/Vol] 3.5 mmol/L Normal 3.5-5.1 [facility] Comment on above: Performed By: #### B MP #### [facility] [address] [place] [address] [address] Shemar Armas Sodium [Moles/Vol] 139 mmol/L Normal 136-145 [facility] Comment on above: Performed By: #### B MP #### [facility] [address] [place] [address] [address] Shemar Armas Urea nitrogen [Mass/Vol] 11.0 mg/dL Normal 7.0-18.0 [facility] Comment on above: Performed By: #### B MP #### [facility] [address] [place] [address] [address] Shemar Armas Urea nitrogen/Creatinine [Mass ratio] 9.3 mg/mg Normal [facility] Comment on above: Performed By: #### B MP #### [facility] [address] [place] [address] [address] Shemar Armas HCG ( test) Aiden benjamin Ql (U)Ordered By: THOM DUONG on 09-28-2022 HCG ( test) Ql (U) Negative [facility] HCG,Urineon 09-28-2022 Beta HCG ( test) Ql (U) Negative Normal [facility] Comment on above: Result Comment: PERF ORMED BY: [place] [address] PATHOLOGIST CERTIFIED EMERGENCY VEHICLE TECHNICIAN KWABENA MELVIN M.D. Performed By: #### U HCG #### [facility] [address] [place] [address] [place] Albumin [Mass/volume] in Ser um or PlasmaOrdered By: Bonnie Jeffrey on 09-26-2022 Albumin [Mass/Vol] 4.0 g/dL 3.2-5.5 [facility] Basophils Auto (Bld) [#/Vol] Ordered By: Bonnie Jeffrey on 09-26-2022 Basophils (Bld) [#/Vol] 0.1 10*3/uL 0.0-0.2 [facility] Basophils/100 WBC Auto (Bld) Ordered By: Bonnie Jeffrey on 09-26-2022 Basophils/100 WBC (Bld) 1.2 % . [facility] Complete Blood Count Auto Di ffon 09-26-2022 Basophils (Bld) [#/Vol] 0.1 10*3/uL Normal 0.0-0.2 [facility] Comment on above: Result Comment: PERF ORMED BY: [place] [address] PATHOLOGIST CERTIFIED EMERGENCY VEHICLE TECHNICIAN KWABENA MELVIN M.D. Performed By: #### C BC, CMP #### [facility] [address] [place] [address] [place] Basophils/100 WBC (Bld) 1.2 % Normal . [facility] Comment on above: Performed By: #### C BC, CMP #### [facility] [address] [place] [address] [place] Eosinophils (Bld) [#/Vol] 0.1 10*3/uL Normal 0.0-0.45 [facility] Comment on above: Performed By: #### C BC, CMP #### [facility] [address] [place] [address] [place] Eosinophils/100 WBC (Bld) 0.9 % Normal . [facility] Comment on above: Performed By: #### C BC, CMP #### [facility] [address] Erythrocyte distribution width (RBC) [Ratio] 13.6 % Normal 11.9-15.3 [facility] Comment on above: Performed By: #### C BC, CMP #### [facility] [address] Hematocrit (Bld) [Volume fraction] 40.2 % Normal 34.0-46.4 [facility] Comment on above: Performed By: #### C BC, CMP #### [facility] [address] Hemoglobin (Bld) [Mass/Vol] 13.3 g/dL Normal 11.8-15.4 [facility] Comment on above: Performed By: #### C BC, CMP #### [facility] [address] Lymphocytes (Bld) [#/Vol] 1.7 10*3/uL Normal 1.00-4.8 [facility] Comment on above: Performed By: #### C BC, CMP #### [facility] [address] [place] [address] [place] Lymphocytes/100 WBC (Bld) 18.1 % Normal . [facility] Comment on above: Performed By: #### C BC, CMP #### [facility] [address] [place] [address] [place] MCH (RBC) [Entitic mass] 28.8 pg Normal 24.7-34.3 [facility] Comment on above: Performed By: #### C BC, CMP #### [facility] [address] MCV (RBC) [Entitic vol] 87.1 fL Normal 80-100 [facility] Comment on above: Performed By: #### C BC, CMP #### [facility] [address] [place] [phone] [place] Mean Corpuscular HGB Conc 33.0 g/dL Normal 32.0-35.0 [facility] Comment on above: Performed By: #### C BC, CMP #### [facility] [address] [place] [address] [place] Monocytes (Bld) [#/Vol] 0.5 10*3/uL Normal 0.0-0.8 [facility] Comment on above: Performed By: #### C BC, CMP #### [facility] [address] [place] [address] [place] Monocytes/100 WBC (Bld) 5.8 % Normal . [facility] Comment on above: Performed By: #### C BC, CMP #### [facility] [address] [place] [address] [place] Neutrophils (Bld) [#/Vol] 7.0 10*3/uL Normal 1.8-7.7 [facility] Comment on above: Performed By: #### C BC, CMP #### [facility] [address] [place] [phone] [place] Neutrophils/100 WBC (Bld) 74.0 % Normal . [facility] Comment on above: Performed By: #### C BC, CMP #### [facility] [address] [place] [phone] [place] NRBC% 0.0 /100{WBC} Normal 0-0.5 [facility] Comment on above: Performed By: #### C BC, CMP #### [facility] [address] [place] [phone] [place] Platelet mean volume (Bld) [Entitic vol] 7.8 fL Normal 6.3-10.7 [facility] Comment on above: Performed By: #### C BC, CMP #### [facility] [address] [place] [phone] [place] Platelets (Bld) [#/Vol] 335 10*3/uL Normal 150-450 [facility] Comment on above: Performed By: #### C BC, CMP #### [address] RBC (Bld) [#/Vol] 4.62 10*6/uL Normal 3.60-5.00 [facility] Comment on above: Performed By: #### C BC, CMP #### [address] WBC (Bld) [#/Vol] 9.4 10*3/uL Normal 3.8-11.6 [facility] Comment on above: Performed By: #### C BC, CMP #### [address] Comprehensive Metabolic Pane [place] 09-26-2022 Albumin [Mass/Vol] 4.0 g/dL Normal 3.2-5.5 [facility] Comment on above: Performed By: #### C BC, CMP #### [address] Albumin/Globulin [Mass ratio] 1.4 {ratio} Normal [facility] Comment on above: Performed By: #### C BC, CMP #### [address] ALP [Catalytic activity/Vol] 45 U/L Normal 32-92 [facility] Comment on above: Result Comment: PERF ORMED BY: [place] [address] PATHOLOGIST CERTIFIED EMERGENCY VEHICLE TECHNICIAN KWABENA MELVIN M.D. Performed By: #### C BC, CMP #### [address] ALT [Catalytic activity/Vol] 19 U/L Normal 10-60 [facility] Comment on above: Performed By: #### C BC, CMP #### [address] Anion gap [Moles/Vol] 13.8 mmol/L Normal 6.0-15.0 [facility] Comment on above: Performed By: #### C BC, CMP #### [address] [place] [address] [place] AST [Catalytic activity/Vol] 17 U/L Normal 10-42 [facility] Comment on above: Performed By: #### C BC, CMP #### [facility] [address] Bilirubin [Mass/Vol] 0.5 mg/dL Normal 0.3-1.2 [facility] Comment on above: Performed By: #### C BC, CMP #### [facility] [address] Calcium [Mass/Vol] 8.9 mg/dL Normal 8.2-10.2 [facility] Comment on above: Performed By: #### C BC, CMP #### [address] Chloride [Moles/Vol] 100 mmol/L Normal 95-114 [facility] Comment on above: Performed By: #### C BC, CMP #### [facility] [address] CO2 [Moles/Vol] 23.7 mmol/L Normal 22.0-30.0 [facility] Comment on above: Performed By: #### C BC, CMP #### [facility] [address] Creatinine [Mass/Vol] 1.82 mg/dL High 0.44-1.03 [facility] Comment on above: Performed By: #### C BC, CMP #### [facility] [address] Estimated GFR ( Perri 39 [facility] Comment on above: Result Comment: GFR estimated reference range: According to KDOQI guidelines, <60 ml/min/1.73m2 is sufficient to diagnose a patient with chronic kidney disease. Performed By: #### C BC, CMP #### [place] [address] [place] Estimated GFR (Non- Am 32 [facility] Comment on above: Performed By: #### C BC, CMP #### [place] [id number] [place] Globulin (S) [Mass/Vol] 2.8 g/dL Normal [facility] Comment on above: Performed By: #### C BC, CMP #### [facility] [address] Glucose [Mass/Vol] 86 mg/dL Normal 70-100 [facility] Comment on above: Result Comment: [facility] Glucose Reference Range is dependent on time and content of last meal. Glucose of more than 200 mg/dL in a nonstressed, ambulatory subject supports the diagnosis of Diabetes Mellitus. ADA recommended reference range Performed By: #### C BC, CMP #### [facility] [address] Potassium [Moles/Vol] 3.5 mmol/L Normal 3.5-5.1 [facility] Comment on above: Performed By: #### C BC, CMP #### [address] Protein [Mass/Vol] 6.8 g/dL Normal 6.1-7.9 [facility] Comment on above: Performed By: #### C BC, CMP #### [address] Sodium [Moles/Vol] 134 mmol/L Low 136-146 [facility] Comment on above: Performed By: #### C BC, CMP #### [address] Urea nitrogen [Mass/Vol] 25 mg/dL High 9-23 [facility] Comment on above: Performed By: #### C BC, CMP #### [place] [address] [place] Creatinine and Glomerular fi ltration rate.predicted panel (S/P/Bld)Ordered By: Bonnie Jeffrey on 09-26-2022 Creatinine [Mass/Vol] 1.82 mg/dL 0.44-1.03 [facility] Eosinophils Auto (Bld) [#/Vo l]Ordered By: Bonnie Jeffrey on 09-26-2022 Eosinophils (Bld) [#/Vol] 0.1 10*3/uL 0.0-0.45 [facility] Eosinophils/100 WBC Auto (Bl d)Ordered By: Bonnie Jeffrey on 09-26-2022 Eosinophils/100 WBC (Bld) 0.9 % . [facility] Erythrocyte distribution wid th Auto (RBC) [Ratio]Ordered By: Bonnie Jeffrey on 09-26-2022 Erythrocyte distribution width (RBC) [Ratio] 13.6 % 11.9-15.3 [facility] Estimated glomerular filtrat ion rate (GFR) non- AmericanOrdered By: Bonnie Jeffrey on 09-26-2022 GFR/1.73 sq M.predicted among non-blacks MDRD (S/P/Bld) [Vol rate/Area] 32 mL/Min [facility] Globulin Calc (S) [Mass/Vol] Ordered By: Bonnie Jeffrey on 09-26-2022 Globulin (S) [Mass/Vol] 2.8 g/dL [facility] Hematocrit Auto (Bld) [Volum e fraction]Ordered By: Bonnie Jeffrey on 09-26-2022 Hematocrit (Bld) [Volume fraction] 40.2 % 34.0-46.4 [facility] Hemoglobin [Mass/volume] in BloodOrdered By: Bonnie Jeffrey on 09-26-2022 Hemoglobin (Bld) [Mass/Vol] 13.3 g/dL 11.8-15.4 [facility] Leukocytes [#/volume] correc franco for nucleated erythrocytes in Blood by Automated counOrdered By: Bonnie Jeffrey on 09-26-2022 WBC corrected for nucl RBC Auto (Bld) [#/Vol] 9.4 10*3/uL 3.8-11.6 [facility] Lymphocytes Auto (Bld) [#/Vo l]Ordered By: Bonnie Jeffrey on 09-26-2022 Lymphocytes (Bld) [#/Vol] 1.7 10*3/uL 1.00-4.8 [facility] Lymphocytes/100 WBC Auto (Bl d)Ordered By: Bonnie Jeffrey on 09-26-2022 Lymphocytes/100 WBC (Bld) 18.1 % . [facility] MCH Auto (RBC) [Entitic mass ]Ordered By: Bonnie Jeffrey on 09-26-2022 MCH (RBC) [Entitic mass] 28.8 pg 24.7-34.3 [facility] MCHC Auto (RBC) [Mass/Vol]Or dered By: Bonnie Jeffrey on 09-26-2022 MCHC (RBC) [Mass/Vol] 33.0 g/dL 32.0-35.0 [facility] MCV Auto (RBC) [Entitic vol] Ordered By: Bonnie Jeffrey on 09-26-2022 MCV (RBC) [Entitic vol] 87.1 fL 80-100 [facility] Monocytes Auto (Bld) [#/Vol] Ordered By: Bonnie Jeffrey on 09-26-2022 Monocytes (Bld) [#/Vol] 0.5 10*3/uL 0.0-0.8 [facility] Monocytes/100 WBC Auto (Bld) Ordered By: Bonnie Jeffrey on 09-26-2022 Monocytes/100 WBC (Bld) 5.8 % . [facility] Neutrophils Auto (Bld) [#/Vo l]Ordered By: Bonnie Jeffrey on 09-26-2022 Neutrophils (Bld) [#/Vol] 7.0 10*3/uL 1.8-7.7 [facility] Neutrophils/100 WBC Auto (Bl d)Ordered By: Bonnie Jeffrey on 09-26-2022 Neutrophils/100 WBC (Bld) 74.0 % . [facility] No Panel InformationOrdered By: Bonnie Jeffrey on 09-26-2022 Estimated GFR () 39 mL/Min [facility] Comment on above: GFR estimated refere nce range: According to KDOQI guidelines, <60 ml/min/1.73m2 is sufficient to diagnose a patient with chronic kidney disease. Pharmacy Creatinine Clearance (Chem N/A [facility] Nucleated erythrocytes [Pres ence] in Blood by Automated countOrdered By: Bonnie Jeffrey on 09-26-2022 Nucleated RBC Auto Ql (Bld) 0.0 /100{WBC} 0-0.5 [facility] Platelet mean volume Auto (B ld) [Entitic vol]Ordered By: Bonnie Jeffrey on 09-26-2022 Platelet mean volume (Bld) [Entitic vol] 7.8 fL 6.3-10.7 [facility] Platelets Auto (Bld) [#/Vol] Ordered By: Bonnie Jeffrey on 09-26-2022 Platelets (Bld) [#/Vol] 335 10*3/uL 150-450 [facility] Protein [Mass/volume] in Ser um or PlasmaOrdered By: Bonnie Jeffrey on 09-26-2022 Protein [Mass/Vol] 6.8 g/dL 6.1-7.9 [facility] RBC Auto (Bld) [#/Vol]Ordere d By: Bonnie Jeffrey on 09-26-2022 RBC (Bld) [#/Vol] 4.62 10*6/uL 3.60-5.00 [facility] Serum or plasma alanine kamara otransferase measurement without P-5'-P (enzymatic activiOrdered By: Bonnie Jeffrey on 09-26-2022 ALT No additional P-5'-P [Catalytic activity/Vol] 19 U/L 10-60 [facility] Serum or plasma albumin/glob ulin mass ratioOrdered By: Bonnie Jeffrey on 09-26-2022 Albumin/Globulin [Mass ratio] 1.4 {ratio} [facility] Serum or plasma alkaline mona sphatase measurement (enzymatic activity/volume)Ordered By: Bonnie Jeffrey on 09-26-2022 ALP [Catalytic activity/Vol] 45 U/L 32-92 [facility] Serum or plasma anion gap de terminationOrdered By: Bonnie Jefrfey on 09-26-2022 Anion gap [Moles/Vol] 13.8 mmol/L 6.0-15.0 [facility] Serum or plasma aspartate am inotransferase measurement (enzymatic activity/volume)Ordered By: Bonnie Jeffrey on 09-26-2022 AST [Catalytic activity/Vol] 17 U/L 10-42 [facility] Serum or plasma calcium sagrario urement (mass/volume)Ordered By: Bonnie Jeffrey on 09-26-2022 Calcium [Mass/Vol] 8.9 mg/dL 8.2-10.2 [facility] Serum or plasma chloride julieta surement (moles/volume)Ordered By: Bonnie Jeffrey on 09-26-2022 Chloride [Moles/Vol] 100 mmol/L 95-114 [facility] Serum or plasma glucose sagrario urement (mass/volume)Ordered By: Bonnie Jeffrey on 09-26-2022 Glucose [Mass/Vol] 86 mg/dL 70-100 [facility] Comment on above: ADA recommended refe rence rangeRandom Glucose Reference Range is dependent on time and content of last meal. Glucose of more than 200 mg/dL in a nonstressed, ambulatory subject supports the diagnosis of Diabetes Mellitus. Serum or plasma potassium me asurement (moles/volume)Ordered By: Bonnie Jeffrey on 09-26-2022 Potassium [Moles/Vol] 3.5 mmol/L 3.5-5.1 [facility] Serum or plasma sodium measu rement (moles/volume)Ordered By: Bonnie Jeffrey on 09-26-2022 Sodium [Moles/Vol] 134 mmol/L 136-146 [facility] Serum or plasma total biliru bin measurement (mass/volume)Ordered By: Bonnie Jeffrey on 09-26-2022 Bilirubin [Mass/Vol] 0.5 mg/dL 0.3-1.2 [facility] Serum or plasma total carbon dioxide measurement (moles/volume)Ordered By: Bonnie Jeffrey on 09-26-2022 CO2 [Moles/Vol] 23.7 mmol/L 22.0-30.0 [facility] Serum or plasma urea nitroge n measurement (mass/volume)Ordered By: Bonnie Jeffrey on 09-26-2022 Urea nitrogen [Mass/Vol] 25 mg/dL 9-23 [facility] WBC Auto (Bld) [#/Vol]Ordere d By: Bonnie Jeffrey on 09-26-2022 WBC (Bld) [#/Vol] 9.4 10*3/uL 3.8-11.6 [facility] Operative Reporton 3 Operative Report [id number]:127 Normal [facility] Pathology Noteon 09-14-2022 Pathology Note [id number]:127 Normal [facility] PREG HCG QUALon 09-12-2022 , QUAL Negative Normal NEGATIVE [facility] Comment on above: Performed By: #### P REG #### [facility] [address] [place], [place] [address] Dr. Shemar Armas Lab Reportson 09-10-2022 Lab Reports [id number]:127 Normal [facility] Covid-19 PCR (CVDTBH)on 08-26 SARS-CoV-2 (COVID-19) RNA PADMINI+probe Ql (Unsp spec) Not detected Normal NOT DETECTED [facility] Comment on above: Result Comment: This test is not yet approved or cleared by the [place] FDA. When there are no FDA-approved or cleared tests available, and other criteria are met, FDA can make tests available under an emergency access mechanism called an Emergency Use Authorization (EUA). The EUA for this test is supported by the [employer] Supervisor of Health and Human Service's (HHS's) declaration [...] SARS-CoV-2. Performed By: #### C VDTBH #### [facility] [address] [place], [place] [address] Dr. Shemar Armas ED Note-Physicianon 08-01-20 ED Note-Physician [id number]:127 Normal [facility] Consent for Procedure/Surger yon 07-31-2022 Consent for Procedure/Surgery [id number]:127 Normal [facility] Physician Referralon Physician Referral [id number]:127 Normal [facility] US SINGLE QUAD RT UPPERon US [...] THOM ANGELA Date: 2022-07-09 17:10 Normal [facility] US KIDNEYS BLADDERon US KIDNEYS BLADDER [...] by: THOM ANGELA Date: 2022-07-04 14:26 Normal [facility] CBC AUTO DIFFon 07-02-2022 BASO # 0.1 103/ul Normal 0.0-0.1 [facility] Comment on above: Performed By: #### C BC #### [facility] [address] [place] [address] [address] Shemar Armas Basophils/100 WBC (Bld) 0.6 % Normal 0.2-2.0 [facility] Comment on above: Performed By: #### C BC #### [facility] [address] [address] [address] Shemar Armas EO # 0.1 103/ul Normal 0.0-0.7 [facility] Comment on above: Performed By: #### C BC #### [facility] [address] [place] [address] [address] Shemar Armas Eosinophils/100 WBC (Bld) 0.8 % Critically low 0.9-7.0 [facility] Comment on above: Performed By: #### C BC #### [facility] [address] [place] [address] Dr. Shemar Armas Erythrocyte distribution width (RBC) [Ratio] 14.6 % Normal 11.0-15.0 [facility] Comment on above: Performed By: #### C BC #### [facility] [address] [place] [address] Dr. Shemar Armas Hematocrit (Bld) [Volume fraction] 36.4 % Normal 36.0-48.0 [facility] Comment on above: Performed By: #### C BC #### [facility] [address] [place] [address] Dr. Shemar Armas Hemoglobin (Bld) [Mass/Vol] 12.2 g/dL Normal 12.0-16.0 [facility] Comment on above: Performed By: #### C BC #### [facility] [address] [address] [address] Shemar Armas IG # 0.04 10e3/ul Critically high 0.00-0.03 [facility] Comment on above: Performed By: #### C BC #### [facility] [address] [address] [address] Shemar Armas IG % 0.3 % Normal 0.0-0.5 [facility] Comment on above: Performed By: #### C BC #### [facility] [address] [address] [address] Shemar Armas LYMPH # 2.1 103/ul Normal 1.2-3.8 [facility] Comment on above: Performed By: #### C BC #### [facility] [address] [place] [address] Dr. Shemar Armas Lymphocytes/100 WBC (Bld) 18.7 % Critically low 20.5-60.0 [facility] Comment on above: Performed By: #### C BC #### [facility] [address] [place] [address] Dr. Shemar Armas MANUAL DIFF REQ NO Normal [facility] Comment on above: Performed By: #### C BC #### [facility] [address] [place] [address] Dr. Shemar Armas MCH (RBC) [Entitic mass] 29.6 pg Normal 26.7-34.0 [facility] Comment on above: Performed By: #### C BC #### [facility] [address] [place] [address] Dr. Shemar Armas MCHC (RBC) [Mass/Vol] 33.5 g/dL Normal 29.9-35.2 [facility] Comment on above: Performed By: #### C BC #### [facility] [address] [place] [address] Dr. Shemar Armas MCV (RBC) [Entitic vol] 88.3 fL Normal 81.0-99.0 [facility] Comment on above: Performed By: #### C BC #### [facility] [address] [place] [address] Dr. Shemar Armas MONO # 0.7 103/ul Normal 0.3-0.8 [facility] Comment on above: Performed By: #### C BC #### [facility] [address] [place] [address] Dr. Shemar Armas Monocytes/100 WBC (Bld) 6.2 % Normal 1.7-12.0 [facility] Comment on above: Performed By: #### C BC #### [facility] [address] [address] [address] Shemar Armas NEUT # 8.4 103/ul Critically high 1.4-6.5 [facility] Comment on above: Performed By: #### C BC #### [facility] [address] [address] [address] Shemar Armas Neutrophils/100 WBC (Bld) 73.4 % Normal 43.0-75.0 [facility] Comment on above: Performed By: #### C BC #### [facility] [address] [address] [address] Shemar Armas Platelet mean volume (Bld) [Entitic vol] 9.2 fL Critically low 9.5-13.5 [facility] Comment on above: Performed By: #### C BC #### [facility] [address] [address] [address] Shemar Armas PLT 331 103/ul Normal 150-450 [facility] Comment on above: Performed By: #### C BC #### [facility] [address] [address] [address] Shemar Armas RBC 4.12 106/ul Critically low 4.20-5.40 [facility] Comment on above: Performed By: #### C BC #### [facility] [address] [address] [address] Shemar Armas WBC 11.4 103/ul Critically high 4.0-11.0 [facility] Comment on above: Performed By: #### C BC #### [facility] [address] [address] [address] Shemar Armas PROF CHEM 8 (BAS METB)on Anion gap [Moles/Vol] 11.5 mmol/L Normal [facility] Comment on above: Performed By: #### B MP #### [facility] [address] [address] [address] Shemar Armas Calcium [Mass/Vol] 8.9 mg/dL Normal 8.5-10.1 [facility] Comment on above: Performed By: #### B MP #### [facility] [address] [address] [address] Shemar Armas Chloride [Moles/Vol] 102 mmol/L Normal 98-107 [facility] Comment on above: Performed By: #### B MP #### [facility] [address] [address] [address] Shemar Armas CO2 [Moles/Vol] 29.6 mmol/L Normal 21.0-32.0 [facility] Comment on above: Performed By: #### B MP #### [facility] [address] [place] [address] [address] Shemar Armas Creatinine [Mass/Vol] 1.93 mg/dL Critically high 0.55-1.02 [facility] Comment on above: Performed By: #### B MP #### [facility] [address] [address] [address] Shemar Armas EGFR-AF GREEK 37 mL/min/1.73m2 Critically low >=60 [facility] Comment on above: Performed By: #### B MP #### [facility] [address] [address] [address] Shemar Armas EGFR-NON AF GREEK 30 mL/min/1.73m2 Critically low >=60 [facility] Comment on above: Performed By: #### B MP #### [facility] [address] [address] [address] Shemar Armas Glucose [Mass/Vol] 93 mg/dL Normal 74-106 [facility] Comment on above: Performed By: #### B MP #### [facility] [address] [place] [address] [address] Shemar Armas Potassium [Moles/Vol] 4.1 mmol/L Normal 3.5-5.1 [facility] Comment on above: Performed By: #### B MP #### [facility] [address] [place] [address] [address] Shemar Armas Sodium [Moles/Vol] 139 mmol/L Normal 136-145 [facility] Comment on above: Performed By: #### B MP #### [facility] [address] [place] [address] Dr. Shemar Armas Urea nitrogen [Mass/Vol] 22.0 mg/dL Critically high 7.0-18 .0 [facility] Comment on above: Performed By: #### B MP #### [facility] [address] [place] [address] Dr. Shemar Armas Urea nitrogen/Creatinine [Mass ratio] 11.4 mg/mg Normal [facility] Comment on above: Performed By: #### B MP #### [facility] [address] [place] [address] Dr. Shemar Armas BNPon 06-29-2022 Natriuretic peptide B (Bld) [Mass/Vol] 159.0 pg/mL Normal <=450.0 [facility] Comment on above: Performed By: #### B MP #### [facility] [address] [place] [address] Dr. Shemar Armas CBC AUTO DIFFon 06-29-2022 BASO # 0.1 103/ul Normal 0.0-0.1 [facility] Comment on above: Performed By: #### P REG #### [facility] [address] [place] [address] Dr. Shemar Armas Basophils/100 WBC (Bld) 0.7 % Normal 0.2-2.0 [facility] Comment on above: Performed By: #### P REG #### [facility] [address] [place] [address] Dr. Shemar Armas EO # 0.1 103/ul Normal 0.0-0.7 [facility] Comment on above: Performed By: #### P REG #### [facility] [address] [place] [address] Dr. Shemar Armas Eosinophils/100 WBC (Bld) 1.4 % Normal 0.9-7.0 [facility] Comment on above: Performed By: #### P REG #### [facility] [address] [place] [address] Dr. Shemar Armas Erythrocyte distribution width (RBC) [Ratio] 14.5 % Normal 11.0-15.0 [facility] Comment on above: Performed By: #### P REG #### [facility] [address] [place] [address] [address] Shemar Armas Hematocrit (Bld) [Volume fraction] 35.4 % Critically low 36.0-48.0 [facility] Comment on above: Performed By: #### P REG #### [facility] [address] [place] [address] Dr. Shemar Armas Hemoglobin (Bld) [Mass/Vol] 11.9 g/dL Critically low 12.0-16.0 [facility] Comment on above: Performed By: #### P REG #### [facility] [address] [place] [address] Dr. Shemar Armas IG # 0.05 10e3/ul Critically high 0.00-0.03 [facility] Comment on above: Performed By: #### P REG #### [facility] [address] [place] [address] Dr. Shemar Armas IG % 0.5 % Normal 0.0-0.5 [facility] Comment on above: Performed By: #### P REG #### [facility] [address] [place] [address] Dr. Shemar Armas LYMPH # 1.7 103/ul Normal 1.2-3.8 [facility] Comment on above: Performed By: #### P REG #### [facility] [address] [place] [address] Dr. Shemar Armas Lymphocytes/100 WBC (Bld) 17.3 % Critically low 20.5-60.0 [facility] Comment on above: Performed By: #### P REG #### [facility] [address] [place] [address] Dr. Shemar Armas MANUAL DIFF REQ NO Normal [facility] Comment on above: Performed By: #### P REG #### [facility] [address] [place] [address] Dr. Shemar Armas MCH (RBC) [Entitic mass] 29.5 pg Normal 26.7-34.0 [facility] Comment on above: Performed By: #### P REG #### [facility] [address] [address] [address] Shemar Armas MCHC (RBC) [Mass/Vol] 33.6 g/dL Normal 29.9-35.2 [facility] Comment on above: Performed By: #### P REG #### [facility] [address] [address] [address] Shemar Armas MCV (RBC) [Entitic vol] 87.8 fL Normal 81.0-99.0 [facility] Comment on above: Performed By: #### P REG #### [facility] [address] [place] [address] [address] Shemar Armas MONO # 0.6 103/ul Normal 0.3-0.8 [facility] Comment on above: Performed By: #### P REG #### [facility] [address] [place] [address] [address] Shemar Armas Monocytes/100 WBC (Bld) 6.3 % Normal 1.7-12.0 [facility] Comment on above: Performed By: #### P REG #### [facility] [address] [place] [address] [address] Shemar Armas NEUT # 7.1 103/ul Critically high 1.4-6.5 [facility] Comment on above: Performed By: #### P REG #### [facility] [address] [place] [address] [address] Shemar Armas Neutrophils/100 WBC (Bld) 73.8 % Normal 43.0-75.0 [facility] Comment on above: Performed By: #### P REG #### [facility] [address] [address] [address] Shemar Armas Platelet mean volume (Bld) [Entitic vol] 9.4 fL Critically low 9.5-13.5 [facility] Comment on above: Performed By: #### P REG #### [facility] [address] [address] [address] Shemar Armas PLT 350 103/ul Normal 150-450 [facility] Comment on above: Performed By: #### P REG #### [facility] [address] [address] [address] Shemar Armas RBC 4.03 106/ul Critically low 4.20-5.40 [facility] Comment on above: Performed By: #### P REG #### [facility] [address] [place] [address] [address] Shemar Armas WBC 9.6 103/ul Normal 4.0-11.0 [facility] Comment on above: Performed By: #### P REG #### [facility] [address] [address] [address] Shemar Armas BASO # 0.0 103/ul Normal 0.0-0.1 [facility] Comment on above: Performed By: #### C BC #### [facility] [address] [place] [address] Dr. Shemar Armas Basophils/100 WBC (Bld) 0.6 % Normal 0.2-2.0 [facility] Comment on above: Performed By: #### C BC #### [facility] [address] [place] [address] Dr. Shemar Armas EO # 0.1 103/ul Normal 0.0-0.7 [facility] Comment on above: Performed By: #### C BC #### [facility] [address] [place] [address] Dr. Shemar Armas Eosinophils/100 WBC (Bld) 1.2 % Normal 0.9-7.0 [facility] Comment on above: Performed By: #### C BC #### [facility] [address] [place] [address] Dr. Shemar Armas Erythrocyte distribution width (RBC) [Ratio] 14.4 % Normal 11.0-15.0 [facility] Comment on above: Performed By: #### C BC #### [facility] [address] [place] [address] Dr. Shemar Armas Hematocrit (Bld) [Volume fraction] 29.3 % Critically low 36.0-48.0 [facility] Comment on above: Performed By: #### C BC #### [facility] [address] [address] [address] Shemar Armas Hemoglobin (Bld) [Mass/Vol] 9.9 g/dL Critically low 12.0-16.0 [facility] Comment on above: Performed By: #### C BC #### [facility] [address] [address] [address] Shemar Armas IG # 0.04 10e3/ul Critically high 0.00-0.03 [facility] Comment on above: Performed By: #### C BC #### [facility] [address] [address] [address] Shemar Armas IG % 0.6 % Critically high 0.0-0.5 [facility] Comment on above: Performed By: #### C BC #### [facility] [address] [address] [address] Shemar Armas LYMPH # 1.5 103/ul Normal 1.2-3.8 [facility] Comment on above: Performed By: #### C BC #### [facility] [address] [address] [address] Shemar Armas Lymphocytes/100 WBC (Bld) 20.1 % Critically low 20.5-60.0 [facility] Comment on above: Performed By: #### C BC #### [facility] [address] [place] [address] Dr. Shemar Armas MANUAL DIFF REQ NO Normal [facility] Comment on above: Performed By: #### C BC #### [facility] [address] [address] [address] Shemar Armas MCH (RBC) [Entitic mass] 29.9 pg Normal 26.7-34.0 [facility] Comment on above: Performed By: #### C BC #### [facility] [address] [address] [address] Shemar Armas MCHC (RBC) [Mass/Vol] 33.8 g/dL Normal 29.9-35.2 [facility] Comment on above: Performed By: #### C BC #### [facility] [address] [address] [address] Shemar Armas MCV (RBC) [Entitic vol] 88.5 fL Normal 81.0-99.0 [facility] Comment on above: Performed By: #### C BC #### [facility] [address] [address] [address] Shemar Armas MONO # 0.5 103/ul Normal 0.3-0.8 [facility] Comment on above: Performed By: #### C BC #### [facility] [address] [place] [address] Dr. Shemar Armas Monocytes/100 WBC (Bld) 7.5 % Normal 1.7-12.0 [facility] Comment on above: Performed By: #### C BC #### [facility] [address] [place] [address] Dr. Shemar Armas NEUT # 5.1 103/ul Normal 1.4-6.5 [facility] Comment on above: Performed By: #### C BC #### [facility] [address] [place] [address] Dr. Shemar Armas Neutrophils/100 WBC (Bld) 70.0 % Normal 43.0-75.0 [facility] Comment on above: Performed By: #### C BC #### [facility] [address] [place] [address] Dr. Shemar Armas Platelet mean volume (Bld) [Entitic vol] 9.2 fL Critically low 9.5-13.5 [facility] Comment on above: Performed By: #### C BC #### [facility] [address] [place] [address] Dr. Shemar Armas PLT 225 103/ul Normal 150-450 [facility] Comment on above: Performed By: #### C BC #### [facility] [address] [place] [address] Dr. Shemar Armas RBC 3.31 106/ul Critically low 4.20-5.40 [facility] Comment on above: Performed By: #### C BC #### [facility] [address] [place] [address] Dr. Shemar Armas WBC 7.2 103/ul Normal 4.0-11.0 [facility] Comment on above: Performed By: #### C BC #### [facility] [address] [place] [address] Dr. Shemar Armas IRONon 06-29-2022 Iron [Mass/Vol] 110.0 ug/dL Normal 50.0-170.0 [facility] Comment on above: Performed By: #### P REG #### [facility] [address] [place] [address] Dr. Shemar Armas PROF 14(COMP METB)on 022 Albumin [Mass/Vol] 4.0 g/dL Normal 3.4-5.0 [facility] Comment on above: Performed By: #### P REG #### [facility] [address] [place] [address] Dr. Shemar Armas Albumin/Globulin [Mass ratio] 1.1 {ratio} Normal [facility] Comment on above: Performed By: #### P REG #### [facility] [address] [place] [address] Dr. Shemar Armas ALP [Catalytic activity/Vol] 57 U/L Normal 46-116 [facility] Comment on above: Performed By: #### P REG #### [facility] [address] [place] [address] Dr. Shemar Armas ALT [Catalytic activity/Vol] 26 U/L Normal 14-59 [facility] Comment on above: Performed By: #### P REG #### [facility] [address] [place] [address] Dr. Shemar Armas Anion gap [Moles/Vol] 10.0 mmol/L Normal Th [facility] Comment on above: Performed By: #### P REG #### [facility] [address] [place] [address] Dr. Shemar Armas AST [Catalytic activity/Vol] 15 U/L Normal 15-37 [facility] Comment on above: Performed By: #### P REG #### [facility] [address] [place] [address] Dr. Shemar Armas Bilirubin [Mass/Vol] 0.2 mg/dL Normal 0.2-1.0 [facility] Comment on above: Performed By: #### P REG #### [facility] [address] [address] [address] Shemar Armas Calcium [Mass/Vol] 8.8 mg/dL Normal 8.5-10.1 [facility] Comment on above: Performed By: #### P REG #### [facility] [address] [address] [address] Shemar Armas Chloride [Moles/Vol] 105 mmol/L Normal 98-107 [facility] Comment on above: Performed By: #### P REG #### [facility] [address] [address] [address] Shemar Armas CO2 [Moles/Vol] 26.8 mmol/L Normal 21.0-32.0 [facility] Comment on above: Performed By: #### P REG #### [facility] [facility] [address] [address] [address] Shemar Armas Creatinine [Mass/Vol] 1.60 mg/dL Critically high 0.55-1.02 [facility] Comment on above: Performed By: #### P REG #### [facility] [address] [place] [address] Dr. Shemar Armas EGFR-AF GREEK 46 mL/min/1.73m2 Critically low >=60 [facility] Comment on above: Performed By: #### P REG #### [facility] [address] [address] [address] Shemar Armas EGFR-NON AF GREEK 38 mL/min/1.73m2 Critically low >=60 [facility] Comment on above: Performed By: #### P REG #### [facility] [address] [place] [address] Dr. Shemar Armas Globulin (S) [Mass/Vol] 3.5 g/dL Normal T [facility] Comment on above: Performed By: #### P REG #### [facility] [address] [place] [address] Dr. Shemar Armas Glucose [Mass/Vol] 98 mg/dL Normal 74-106 [facility] Comment on above: Performed By: #### P REG #### [facility] [address] [address] [address] Shemar Armas Potassium [Moles/Vol] 3.8 mmol/L Normal 3.5-5.1 [facility] Comment on above: Performed By: #### P REG #### [facility] [address] [address] [address] Shemar Armas Protein [Mass/Vol] 7.5 g/dL Normal 6.4-8.2 [facility] Comment on above: Performed By: #### P REG #### [facility] [address] [place] [address] Dr. Shemar Armas Sodium [Moles/Vol] 138 mmol/L Normal 136-145 [facility] Comment on above: Performed By: #### P REG #### [facility] [address] [place] [address] Dr. Shemar Armas Urea nitrogen [Mass/Vol] 24.0 mg/dL Critically high 7.0-18 .0 [facility] Comment on above: Performed By: #### P REG #### [facility] [address] [place] [address] Dr. Shemar Armas Urea nitrogen/Creatinine [Mass ratio] 15.0 mg/mg Normal [facility] Comment on above: Performed By: #### P REG #### [facility] [address] [address] [address] Shemar Armas Albumin [Mass/Vol] 3.3 g/dL Critically low 3.4-5.0 [facility] Comment on above: Performed By: #### B MP #### [facility] [address] [place] [address] Dr. Shemar Armas Albumin/Globulin [Mass ratio] 1.1 {ratio} Normal [facility] Comment on above: Performed By: #### B MP #### [facility] [address] [address] [address] Shemar Armas ALP [Catalytic activity/Vol] 55 U/L Normal 46-116 [facility] Comment on above: Performed By: #### B MP #### [facility] [address] [address] [address] Shemar Armas ALT [Catalytic activity/Vol] 21 U/L Normal 14-59 [facility] Comment on above: Performed By: #### B MP #### [facility] [address] [address] [address] Shemar Armas Anion gap [Moles/Vol] 8.1 mmol/L Normal [facility] Comment on above: Performed By: #### B MP #### [facility] [address] [address] [address] Shemar Armas AST [Catalytic activity/Vol] 13 U/L Critically low 15-37 [facility] Comment on above: Performed By: #### B MP #### [facility] [address] [address] [address] Shemar Armas Bilirubin [Mass/Vol] 0.1 mg/dL Critically low 0.2-1.0 [facility] Comment on above: Performed By: #### B MP #### [facility] [address] [address] [address] Shemar Armas Calcium [Mass/Vol] 7.5 mg/dL Critically low 8.5-10.1 Th [facility] Comment on above: Performed By: #### B MP #### [facility] [address] [address] [address] Shemar Armas Chloride [Moles/Vol] 107 mmol/L Normal 98-107 [facility] Comment on above: Performed By: #### B MP #### [facility] [address] [address] [address] Shemar Armas CO2 [Moles/Vol] 24.5 mmol/L Normal 21.0-32.0 [facility] Comment on above: Performed By: #### B MP #### [facility] [address] [address] [address] Shemar Armas Creatinine [Mass/Vol] 2.03 mg/dL Critically high 0.55-1.02 [facility] Comment on above: Performed By: #### B MP #### [facility] [address] [address] [address] Shemar Armas EGFR-AF GREEK 35 mL/min/1.73m2 Critically low >=60 [facility] Comment on above: Performed By: #### B MP #### [facility] [address] [address] [address] Shemar Armas EGFR-NON AF GREEK 29 mL/min/1.73m2 Critically low >=60 [facility] Comment on above: Performed By: #### B MP #### [facility] [address] [address] [address] Shemar Armas Globulin (S) [Mass/Vol] 2.9 g/dL Normal [facility] Comment on above: Performed By: #### B MP #### [facility] [address] [address] [address] Shemar Armas Glucose [Mass/Vol] 111 mg/dL Critically high 74-106 [facility] Comment on above: Performed By: #### B MP #### [facility] [address] [address] [address] Shemar Armas Potassium [Moles/Vol] 3.6 mmol/L Normal 3.5-5.1 [facility] Comment on above: Performed By: #### B MP #### [facility] [address] [address] [address] Shemar Armas Protein [Mass/Vol] 6.2 g/dL Critically low 6.4-8.2 [facility] Comment on above: Performed By: #### B MP #### [facility] [address] [address] [address] Shemar Armas Sodium [Moles/Vol] 136 mmol/L Normal 136-145 [facility] Comment on above: Performed By: #### B MP #### [facility] [address] [address] [address] Shemar Armas Urea nitrogen [Mass/Vol] 28.0 mg/dL Critically high 7.0-18 .0 [facility] Comment on above: Performed By: #### B MP #### [facility] [address] [place] [address] Dr. Shemar Armas Urea nitrogen/Creatinine [Mass ratio] 13.8 mg/mg Normal [facility] Comment on above: Performed By: #### B MP #### [facility] [address] [place] [address] Dr. Shemar Armas TROPONIN, HIGH SENSITIVITYon 06-29-2022 HSTROP 4.8 pg/mL Normal 4.0-51.3 [facility] Comment on above: Result Comment: CUT- OFF POINTS HAVE BEEN ESTABLISHED BASED ON THE FOURTH UNIVERSAL DEFINITIONS OF MYOCARDIAL INFARCTION. THE UPPER REFERENCE LIMIT (URL) OF TROPONIN, DEFINED THE 99TH PERCENTILE OF cTnI DISTRIBUTION IN A REFERENCE POPULATION, HAS BEEN CONFIRMED THE DECISION THRESHOLD FOR MN DIAGNOSIS. Performed By: #### B MP #### [facility] [address] [place] [address] Dr. Shemar Armas INSULINon 04-27-2022 Insulin 15.8 uIU/mL Normal 2.6-24.9 [facility] Comment on above: Performed By: #### I NSULIN #### [facility] [address] [place] [address] Dr. Shemar Armas T4, T3U, FTI LABCORPon 04-27 Free Thyroxine Index 3.1 Normal 1.2-4.9 [facility] Comment on above: Performed By: #### T HYLC #### [facility] [address] [place] [address] Dr. Shemar Armas T3 Uptake 31 % Normal 24-39 [facility] Comment on above: Performed By: #### T HYLC #### [facility] [address] [place] [address] Dr. Shemar Armas T4 [Mass/Vol] 10.1 ug/dL Normal 4.5-12.0 [facility] Comment on above: Performed By: #### T HYLC #### [facility] [address] [place] [address] Dr. Shemar Armas CBC AUTO DIFFon 04-26-2022 BASO # 0.1 103/ul Normal 0.0-0.1 [facility] Comment on above: Performed By: #### B MP #### [facility] [address] [address] [address] Shemar Armas Basophils/100 WBC (Bld) 0.7 % Normal 0.2-2.0 [facility] Comment on above: Performed By: #### B MP #### [facility] [address] [place] [address] Dr. Shemar Armas EO # 0.1 103/ul Normal 0.0-0.7 [facility] Comment on above: Performed By: #### B MP #### [facility] [address] [place] [address] Dr. Shemar Armas Eosinophils/100 WBC (Bld) 0.9 % Normal 0.9-7.0 [facility] Comment on above: Performed By: #### B MP #### [facility] [address] [place] [address] Dr. Shemar Armas Erythrocyte distribution width (RBC) [Ratio] 13.7 % Normal 11.0-15.0 [facility] Comment on above: Performed By: #### B MP #### [facility] [address] [place] [address] Dr. Shemar Armas Hematocrit (Bld) [Volume fraction] 41.8 % Normal 36.0-48.0 [facility] Comment on above: Performed By: #### B MP #### [facility] [address] [place] [address] Dr. Shemar Armas Hemoglobin (Bld) [Mass/Vol] 13.9 g/dL Normal 12.0-16.0 [facility] Comment on above: Performed By: #### B MP #### [facility] [address] [place] [address] Dr. Shemar Armas IG # 0.03 10e3/ul Normal 0.00-0.03 [facility] Comment on above: Performed By: #### B MP #### [facility] [address] [place] [address] Dr. Shemar Armas IG % 0.3 % Normal 0.0-0.5 [facility] Comment on above: Performed By: #### B MP #### [facility] [address] [place] [address] Dr. Shemar Armas LYMPH # 1.8 103/ul Normal 1.2-3.8 [facility] Comment on above: Performed By: #### B MP #### [facility] [address] [place] [address] Dr. Shemar Armas Lymphocytes/100 WBC (Bld) 21.0 % Normal 20.5-60.0 [facility] Comment on above: Performed By: #### B MP #### [facility] [address] [place] [address] Dr. Shemar Armas MANUAL DIFF REQ NO Normal [facility] Comment on above: Performed By: #### B MP #### [facility] [address] [place] [address] Dr. Shemar Armas MCH (RBC) [Entitic mass] 28.8 pg Normal 26.7-34.0 [facility] Comment on above: Performed By: #### B MP #### [facility] [address] [place] [address] Dr. Shemar Armas MCHC (RBC) [Mass/Vol] 33.3 g/dL Normal 29.9-35.2 [facility] Comment on above: Performed By: #### B MP #### [facility] [address] [place] [address] Dr. Shemar Armas MCV (RBC) [Entitic vol] 86.7 fL Normal 81.0-99.0 [facility] Comment on above: Performed By: #### B MP #### [facility] [address] [place] [address] Dr. Shemar Armas MONO # 0.7 103/ul Normal 0.3-0.8 [facility] Comment on above: Performed By: #### B MP #### [facility] [address] [place] [address] Dr. Shemar Armas Monocytes/100 WBC (Bld) 7.9 % Normal 1.7-12.0 [facility] Comment on above: Performed By: #### B MP #### [facility] [address] [address] [address] Shemar Armas NEUT # 6.0 103/ul Normal 1.4-6.5 [facility] Comment on above: Performed By: #### B MP #### [facility] [address] [address] [address] Shemar Armas Neutrophils/100 WBC (Bld) 69.2 % Normal 43.0-75.0 [facility] Comment on above: Performed By: #### B MP #### [facility] [address] [place] [address] Dr. Shemar Armas Platelet mean volume (Bld) [Entitic vol] 9.7 fL Normal 9.5-13.5 [facility] Comment on above: Performed By: #### B MP #### [facility] [address] [place] [address] Dr. Shemar Armsa PLT 322 103/ul Normal 150-450 [facility] Comment on above: Performed By: #### B MP #### [facility] [address] [place] [address] Dr. Shemar Armas RBC 4.82 106/ul Normal 4.20-5.40 [facility] Comment on above: Performed By: #### B MP #### [facility] [address] [place] [address] Dr. Shemar Armas WBC 8.7 103/ul Normal 4.0-11.0 [facility] Comment on above: Performed By: #### B MP #### [facility] [address] [place] [address] Dr. Shemar Armas GLYCOHEMOGLOBIN A1Con 2021 ADA RECOMMENDATION SEE BELOW Normal [facility] Comment on above: Result Comment: ADA RECOMMENDED LIMIT 4.0 - 6.0 ADA THERAPEUTIC TARGET < 7.0 ACTION SUGGESTED > 7.0 Performed By: #### P REG #### [facility] [address] [place] [address] Dr. Shemar Armas Glucose [Mass/Vol] 108 mg/dL Normal [facility] Comment on above: Performed By: #### P REG #### [facility] [address] [address] [address] Shemar Armas HbA1c (Bld) [Mass fraction] 5.4 % Normal 4.5-6.2 [facility] Comment on above: Performed By: #### P REG #### [facility] [address] [address] [address] Shemar Armas IRONon 04-26-2022 Iron [Mass/Vol] 55.0 ug/dL Normal 50.0-170.0 [facility] Comment on above: Performed By: #### I CYNDI #### [facility] [address] [address] [address] Shemar Armas LIPID PROFILEon 04-26-2022 CHOL-HDL RATIO NORM SEE BELOW Normal [facility] Comment on above: Result Comment: 3.3 - 4.4 LOW RISK 4.4 - 7.1 AVERAGE RISK 7.1 - 11.0 MODERATE RISK >11.0 HIGH RISK Performed By: #### P REG #### [facility] [address] [place] [address] Dr. Shemar Armas Cholesterol [Mass/Vol] 205 mg/dL Critically high <=200 [facility] Comment on above: Performed By: #### P REG #### [facility] [address] [place] [address] Dr. Shemar Armas Cholesterol in HDL [Mass/Vol] 57 mg/dL Normal 40-60 [facility] Comment on above: Performed By: #### P REG #### [facility] [address] [address] [address] Shemar Armas Cholesterol in LDL [Mass/Vol] 126.8 mg/dL Normal [facility] Comment on above: Performed By: #### P REG #### [facility] [address] [place] [address] Dr. Shemar Armas Cholesterol.total/Choles terol in HDL [Mass ratio] 3.6 {ratio} Normal [facility] Comment on above: Performed By: #### P REG #### [facility] [address] [address] [address] Shemar Armas HDL NORMAL > or = 60 mg/dl - LOW CARDIOVASCULAR RISK <40 mg/dl - HIGH CARDIOVASCULAR RISK Normal [facility] Comment on above: Performed By: #### P REG #### [facility] [address] [address] [address] Shemar Armas LDL CALC NORMAL SEE BELOW Normal [facility] Comment on above: Result Comment: <100 mg/dl OPTIMAL 100 - 129 mg/dl NEAR OR ABOVE OPTIMAL 130 - 159 mg/dl BORDERLINE HIGH 160 - 189 mg/dl HIGH >190 mg/dl VERY HIGH Performed By: #### P REG #### [facility] [address] [address] [address] Shemar Armas Triglyceride [Mass/Vol] 106 mg/dL Normal <=150 [facility] Comment on above: Performed By: #### P REG #### [facility] [address] [address] [address] Shemar Armas VLDL CALC 21.2 mg/dL Normal [facility] Comment on above: Performed By: #### P REG #### [facility] [address] [address] [address] Shemar Armas PROF 14(COMP METB)on 022 Albumin [Mass/Vol] 4.3 g/dL Normal 3.4-5.0 [facility] Comment on above: Performed By: #### T SH, CMP, LIPID #### [facility] [address] [address] [address] Shemar Armas Albumin/Globulin [Mass ratio] 1.2 {ratio} Normal [facility] Comment on above: Performed By: #### T SH, CMP, LIPID #### [facility] [address] [address] [address] Shemar Armas ALP [Catalytic activity/Vol] 62 U/L Normal 46-116 [facility] Comment on above: Performed By: #### T SH, CMP, LIPID #### [facility] [address] [address] [address] Shemar Armas ALT [Catalytic activity/Vol] 34 U/L Normal 14-59 [facility] Comment on above: Performed By: #### T SH, CMP, LIPID #### [facility] [address] [address] [address] Shemar Armas Anion gap [Moles/Vol] 13.7 mmol/L Normal Th [facility] Comment on above: Performed By: #### T SH, CMP, LIPID #### [facility] [address] [address] [address] Shemar Armas AST [Catalytic activity/Vol] 22 U/L Normal 15-37 [facility] Comment on above: Performed By: #### T SH, CMP, LIPID #### [facility] [address] [place] [address] Dr. Shemar Armas Bilirubin [Mass/Vol] 0.3 mg/dL Normal 0.2-1.0 [facility] Comment on above: Performed By: #### T SH, CMP, LIPID #### [facility] [address] [place] [address] Dr. Shemar Armas Calcium [Mass/Vol] 9.1 mg/dL Normal 8.5-10.1 [facility] Comment on above: Performed By: #### T SH, CMP, LIPID #### [facility] [address] [place] [address] Dr. Shemar Armas Chloride [Moles/Vol] 98 mmol/L Normal 98-107 [facility] Comment on above: Performed By: #### T SH, CMP, LIPID #### [facility] [address] [address] [address] Shemar Armas CO2 [Moles/Vol] 29.9 mmol/L Normal 21.0-32.0 [facility] Comment on above: Performed By: #### T SH, CMP, LIPID #### [facility] [address] [place] [address] Dr. Shemar Armas Creatinine [Mass/Vol] 1.27 mg/dL Critically high 0.55-1.02 [facility] Comment on above: Performed By: #### T SH, CMP, LIPID #### [facility] [address] [place] [address] Dr. Shemar Armas EGFR-AF GREEK 59 mL/min/1.73m2 Critically low >=60 [facility] Comment on above: Performed By: #### T SH, CMP, LIPID #### [facility] [address] [place] [address] Dr. Shemar Armas EGFR-NON AF GREEK 49 mL/min/1.73m2 Critically low >=60 [facility] Comment on above: Performed By: #### T SH, CMP, LIPID #### [facility] [address] [place] [address] Dr. Shemar Armas Globulin (S) [Mass/Vol] 3.6 g/dL Normal T [facility] Comment on above: Performed By: #### T SH, CMP, LIPID #### [facility] [address] [place] [address] Dr. Shemar Armas Glucose [Mass/Vol] 92 mg/dL Normal 74-106 [facility] Comment on above: Performed By: #### T SH, CMP, LIPID #### [facility] [address] [place] [address] Dr. Shemar Armas Potassium [Moles/Vol] 3.6 mmol/L Normal 3.5-5.1 [facility] Comment on above: Performed By: #### T SH, CMP, LIPID #### [facility] [address] [place] [address] Dr. Shemar Armas Protein [Mass/Vol] 7.9 g/dL Normal 6.4-8.2 [facility] Comment on above: Performed By: #### T SH, CMP, LIPID #### [facility] [address] [place] [address] Dr. Shemar Armas Sodium [Moles/Vol] 138 mmol/L Normal 136-145 [facility] Comment on above: Performed By: #### T SH, CMP, LIPID #### [facility] [address] [place] [address] Dr. Shemar Armas Urea nitrogen [Mass/Vol] 16.0 mg/dL Normal 7.0-18.0 [facility] Comment on above: Performed By: #### T SH, CMP, LIPID #### [facility] [address] [address] [address] Shemar Armas Urea nitrogen/Creatinine [Mass ratio] 12.6 mg/mg Normal [facility] Comment on above: Performed By: #### T SH, CMP, LIPID #### [facility] [address] [address] [address] Shemar Armas TSHon 04-26-2022 TSH 3.031 uIU/mL Normal 0.358-3.740 [facility] Comment on above: Performed By: #### P REG #### [facility] [address] [address] [address] Shemar Armas Vital Signs Date Time Vital Sign Value Performing Clinician Facility 10-02-2022 16:00-0500 Body height 160.02 cm [facility] Other [facility] Other 10-02-2022 16:00-0500 Body mass index (BMI) [Ratio] 42.69 kg/m2 [facility] Other 10-02-2022 16:00-0500 Body weight 109.32 kg Bonnie [facility] Other [facility] Other 09-28-2022 15:55-0500 Diastolic blood pressure 60 mm[Hg] MD Donnell Brooke Work Phone: [facility] 09-28-2022 15:55-0500 Heart rate 76 /min MD Donnell Brooke Work Phone: [facility] 09-28-2022 15:55-0500 Respiratory rate 16 /min MD Donnell Brooke Work Phone: [facility] 09-28-2022 15:55-0500 SaO2% (BldA) [Mass fraction] 98 % MD Donnell Brooke Work Phone: [facility] 09-28-2022 15:55-0500 Systolic blood pressure 123 mm[Hg] MD Donnell Brooke Work Phone: [facility] 09-28-2022 14:33-0500 Body height 162.56 cm MD Donnell Brooke Work Phone: [facility] 09-28-2022 14:33-0500 Body mass index (BMI) [Ratio] 41.6 kg/m2 MD Donnell Brooke Work Phone: [facility] 09-28-2022 14:33-0500 Body weight 110 kg MD Donnell Brooke Work Phone: [facility] 09-28-2022 12:25-0500 Body temperature 98 [degF] MD Donnell Brooke Work Phone: [facility] 07-30-2022 15:29-0500 Blood Pressure Location Sanjay GEMMAL [facility] 07-30-2022 15:29-0500 Diastolic blood pressure 83 mm[Hg] Sanjay MENENDEZL [facility] 07-30-2022 15:29-0500 Heart rate 75 /min Sanjay NILL [facility] 07-30-2022 15:29-0500 Respiratory rate 16 /min Sanjay NILL [facility] 07-30-2022 15:29-0500 Systolic blood pressure 124 mm[Hg] Sanjay NILL [facility] Encounters Encounter Date Encounter Type Care Provider Facility Start: 06-12-2023 End: 06-12-2023 ambulatory oBnnie Jeffrey Other [facility] Other Start: 06-12-2023 Office outpatient vi sit 15 minutes [facility] Start: 03-20-2023 End: 03-20-2023 ambulatory Bonnie Jeffrey Other [facility] Other Start: 03-20-2023 Office outpatient vi sit 15 minutes Bonnie Calvey [facility] [facility] Start: 01-24-2023 End: 01-24-2023 ambulatory Bonnie Calvey Other [facility] Other Start: 01-24-2023 Office outpatient vi sit 15 minutes Bonnie Calvey [facility] Start: 12-11-2022 End: 12-11-2022 ambulatory Bonnie R Calvey Facility:[facility] Start: 11-13-2022 End: 11-13-2022 ambulatory Bonnie R Calvey Facility:[facility] Start: 11-13-2022 End: 11-13-2022 Patient encounter procedure MD Donnell Brooke Work Phone: [facility] Start: 11-13-2022 End: 11-13-2022 ambulatory MD Donnell Brooke Work Phone: [facility] Work Phone: Start: 11-13-2022 Postop follow up vis it related to original px Bonnie Calvey [facility] Start: 10-23-2022 End: 10-23-2022 ambulatory Bonnie Calvey Other [facility] Other Start: 10-23-2022 Postop follow up vis it related to original px Bonnie Calvey [facility] Start: 10-10-2022 End: 10-11-[address] DONNELL BROOKE . Facility: Start: 10-09-2022 End: 10-09-2022 ambulatory Bonnie Calvey Other [facility] Other Start: 10-09-2022 Postop follow up vis it related to original px Bonnie Calvey [facility] Start: 10-02-2022 End: 10-02-2022 ambulatory Bonnie Calvey Other [facility] Other Start: 10-02-2022 Postop follow up vis it related to original px Bonnie Jeffrey [facility] Start: 10-02-2022 Telephone encounter Bonnie Jeffrey [facility] Start: 09-28-2022 End: 09-28-2022 ambulatory Bonnie Jeffrey Facility:[facility] Start: 09-28-2022 End: 09-28-2022 Admission to same day surgery center MD Donnell Brooke Work Phone: [facility] [place] Start: 09-26-2022 End: 09-26-2022 ambulatory Bonnie Edwige Shreyayaniv Facility:[facility] Start: 09-26-2022 End: 09-26-2022 ambulatory MD Donnell Brooke Work Phone: [facility] Work Phone: Start: 09-26-2022 End: 09-26-2022 Patient encounter procedure MD Donnell Brooke Work Phone: [facility] Work Phone: Start: 09-25-2022 End: 09-25-[address] DONNELL BROOKE . Facility: Start: 09-21-2022 ambulatory Sanjay ZUÑIGA Facility :[facility] Start: 09-14-2022 Encounter for preprocedural laboratory examination DR SANJAY ZUÑIGA . [facility] Start: 09-12-2022 End: 09-13-2022 ambulatory Sanjay ZUÑIGA Facility:CD:[id number] Start: 09-11-2022 End: 10-06-[address] DONNELL BROOKE . Facility: Start: 09-07-2022 End: 09-08-[address] DONNELL BROOKE . Facility: Start: 09-07-2022 End: 09-08-2022 Encounter for preprocedural laboratory examination DR DONNELL BROOKE . Facility: Start: 07-30-2022 End: 07-31-2022 ambulatory Donnell Brooke PROVIDER Facility: [place] Start: 07-30-2022 End: 07-30-2022 Patient encounter procedure Sanjay ZUÑIGA [facility] [place] Start: 07-10-2022 ambulatory Donnell Brooke PROVIDER Facility:[facility] Start: 07-09-2022 End: 07-10-[address] [...] abnormal findings DR DONNELL BROOKE . [facility] Start: 04-26-2022 End: 04-27-[address] DONNELL BROOKE . Facility:[facility] Start: 04-26-2022 End: 04-27-2022 Encounter for general adult medical examination without abnormal findings DR DONNELL BROOKE . Facility:[facility] Start: 02-15-2022 End: 03-21-[address] DONNELL [...] Sanjay ZUÑIGA Extraction of wisdom tooth M ichannel NILL PILONIDAL CYST EXCISION Messi ael NILL TARSAL TUNNEL RELEASE 1 Messi ael NILL Comment on above: LEFT Tonsillectomy Sanjay ZUÑIGA Plan of Treatment Date Care Activity Detail Author Start: 09-28-2022 [facility] Start: 09-28-2022 [facility] Patient referral [facility] Work Phone: Immunizations Immunization Date Immunization Notes Care Provider Josue cheema NEGATED: Highlighted row has not occurred!07-30-2022 influenza virus vaccine, unspecified formulation Sanjay ZUÑIGA [facility] [place] Payers Date Payer Category Payer Self-pay 2022 Unknown [id number] 1990 Unknown [id number] 2.16.8 [id number] 1990 Unknown [id number] 2.16.8 40.1.109133.3.579.2.727 1990 Unknown [id number] 2.16.8 40.1.558695.3.579.2.727 1990 Unknown [id number] 2.16.8 40.1.932863.3.579.2.727 1990 Unknown [id number] 2.16.8 40.1.179593.3.579.2.727 1990 Unknown [id number] 2.16.84 0.1.335004.3.579.2.593 1990 Unknown [id number] 2.16.84 0.1.896582.3.579.2.593 1990 Unknown [id number] 2.16.84 0.1.946527.3.579.2.593 1990 Unknown [id number] 2.16.84 0.1.541243.3.579.2.593 1990 Unknown [id number] 2.16.84 0.1.552663.3.579.2.593 1990 Unknown [id number] 2.16.84 0.1.481073.3.579.2.593 1990 Unknown [id number] 2.16.84 0.1.118795.3.579.2.593 1990 Unknown [id number] 2.16.84 0.1.990075.3.579.2.593 1990 Unknown [id number] 2.16.84 0.1.516283.3.579.2.593 1990 Unknown [id number] 2.16.84 0.1.859553.3.579.2.593 1990 Unknown [id number] 2.16.84 0.1.838929.3.579.2.593 1990 Unknown [id number] 2.16.84 0.1.481403.3.579.2.593 1959 Unknown [id number] [id number] Unknown [id number] 2.16.8 40.1.176148.3.579.2.531 Unknown [id number] 2.16.8 40.1.754234.3.579.2.531 Unknown [id number] 2.16.8 40.1.546008.3.579.2.531 Unknown [id number] 2.16.8 40.1.818621.3.579.2.531 Social History Date Type Detail Facility Start: 07-30-2022 End: 09-28-2022 Tobacco smoking status Never smoked tobacco (finding) [facility] Tobacco smoking status Never [facility] Sex Assigned At Female [facility] Start: 1990 Sex Assigned At Female [facility] Goals Date Patient Goal Desired Activity /State Functional Status Date Assessment Result Facility 07-30-2022 Functional Status N/A [facility] Clinical Notes 08-20-2022 to 06-12-2023 [...] Other specified postprocedural states (ICD-10 - Z98.890) [facility] Other 07-26-2023 Evaluation note* Encounter Date Diagnosis Assessment Notes Treatment Notes Treatment Clinical Notes Feb, Crushing injury of right thumb, subsequent encounter (ICD-10 - S67.01XD) Patient instructed to keep cuticle moisturized and pushed back. Activity as tolerated Feb, Injury of nail bed o f finger of right hand, subsequent encounter (ICD-10 - S69.91XD) Feb, Other specified postprocedural states (ICD-10 - Z98.890) [facility] Other 06-01-2023 Evaluation note* Encounter Date Diagnosis [...] Other specified postprocedural states (ICD-10 - Z98.890) [facility] Other 03-21-2023 Evaluation note* Encounter Date Diagnosis [...] Other specified postprocedural states (ICD-10 - Z98.890) [facility] Other 02-28-2023 Evaluation note* Encounter Date Diagnosis Assessment Notes Treatment Notes Treatment Clinical Notes Sep, Crushing injury of right thumb, initial encounter (ICD-10 - S67.01XA) Patient instructed on the use of moisturizer for the nailbed. Return to work note given Sep, Injury of nail bed of right thumb, initial encounter (ICD-10 - S69.91XA) [facility] Other 02-14-2023 Evaluation note* Encounter Date Diagnosis Assessment Notes Treatment Notes Treatment Clinical Notes Sep, Crushing injury of right thumb, initial encounter (ICD-10 - S67.01XA) Patient instructed to continue with current wound care and use of stax splint. Continue off work Sep, Injury of nail bed of right thumb, initial encounter (ICD-10 - S69.91XA) [facility] Other 02-07-2023 Evaluation note* Encounter Date Diagnosis Assessment Notes Treatment Notes Treatment Clinical Notes Sep, Crushing injury of right thumb, initial encounter (ICD-10 - S67.01XA) Patient instructed to continue daily soaking. Rx given for Zofran due to vomitting from narcotics Sep, Injury of nail bed of right thumb, initial encounter (ICD-10 - S69.91XA) [facility] Other 01-31-2023 NotePROCEDURE: XR HAND RT MIN [...] Electronically authenticated by: MYAH LEAL Date: 2022-09-25 07:51[facility]01-18-2023 NoteOPERATIVE NOTE OPERATION DATE: 09/12/2022 PREOPERATIVE DIAGNOSIS: [...] in good condition. CC: [facility] physicianThe [facility] [id number] NoteChief Complaint consultation for RUQ pain HPI [...] morphine (Chest pain) Socia (more content not included)...[facility]Comment [facility]: Result Comment: Electronically Signed By: SOL ESPINOZA, Sanjay Paredes\Date and Time Signed: 08/20/22 10:27 ESTEvaluation + Plan note No data available for this section [facility] [place] Evaluation noteNo assessment information available [facility] Work Phone: Evaluation noteNo InformationNortClarks Summit State Hospital [employer] Other Hisxmvx general Narrative - Reported* Type Description Date Medical History depression Medical History bradycardia Medical History tachycardia Surgical History tonsillectomy Surgical History pylenol cysts Surgical History wisdom teeth Surgical History plantar fasciitis, tarsal tunne l x 2 right foot Follicum [facility] [employer] Other Hiszuww general Narrative - Reported* Type Description Date Medical History depression Medical History bradycardia Medical History tachycardia Surgical History tonsillectomy Surgical History pylenol cysts Surgical History wisdom teeth Surgical History plantar fasciitis, tarsal tunne l x 2 right foot Surgical History right thumb I & D 09/28/2022 [facility] [employer] Other Hospital Discharge instructions No data available for this section [facility] [place] Progress note No data available for this section [facility] [place] Chief Complaint and Reason for Visit Chief [...] section and content) DATE CREATED AUTHOR 09/29/[address] [place] [facility] DATE CREATED AUTHOR AUTHOR'S ORGANIZ ATION [facility]/01/2022 [facility] DATE CREATED AUTHOR AUTHOR'S ORGANIZ ATION 12/15/2022 [facility] REASON FOR VISIT (unrecogniz ed section and [...] BE BASED ON THE PRIMARY CLINICAL RECORDS. [employer] provides no warranty or guarantee of the accuracy or completeness of information in this document.
[2024-03-26] MEDS: ONDANSETRON PF 4 MG/2 ML VIAL IV (16:04)
[2024-03-26] MEDS: 0.9 % SODIUM CHLORIDE 1,000 ML 999 ML IV (16:04)
[2024-03-26 16:22] LABS: Basophils Absolute Auto 0.1 10^3/uL (0.0-0.1); Basophils Percent Auto 0.7 % (0.2-2.0); Eosinophils Absolute Auto 0.2 10^3/uL (0.0-0.7); Eosinophils Percent Auto 1.6 % (0.9-7.0); Hematocrit 39.1 % (36.0-48.0); Hemoglobin 12.5 g/dL (12.0-16.0); Immature Granulocytes Abs Auto 0.02 10^3/uL (0.00-0.03); Immature Granulocytes Pct Auto 0.2 % (0.0-0.5); Lymphocytes Absolute Auto 1.8 10^3/uL (1.2-3.8); Lymphocytes Percent Auto 18.8 % (20.5-60.0); Mean Corpuscular Hemoglobin 26.7 pg (26.7-34.0); Mean Corpuscular Volume 83.4 fL (81.0-99.0); Mean Platelet Volume 9.4 fL (9.5-13.5); Monocytes Absolute Auto 0.6 10^3/uL (0.3-0.8); Monocytes Percent Auto 6.5 % (1.7-12.0); Neutrophils Absolute Auto 6.8 10^3/uL (1.4-6.5); Neutrophils Percent Auto 72.2 % (43.0-75.0); Platelet Count 314 10^3/uL (150-450); Red Blood Count 4.69 10^6/uL (4.20-5.40); Red Cell Distribution Width 14.6 % (11.0-15.0); White Blood Count 9.4 10^3/uL (4.0-11.0)
[2024-03-26 16:49] LABS: Alanine Aminotransferase 23 U/L (14-59); Albumin Globulin Ratio 1.1; Albumin Level 3.8 g/dL (3.4-5.0); Alkaline Phosphatase 84 U/L (46-116); Anion Gap 12.8; Aspartate Amino Transferase 19 U/L (15-37); BUN Creatinine Ratio 13.8; Bilirubin Total 0.3 mg/dL (0.2-1.0); Calcium 8.7 mg/dL (8.5-10.1); Carbon Dioxide 28.1 mmol/L (21.0-32.0); Chloride 102 mmol/L (98-107); Estimated GFR (African America 57 (>=60); Estimated GFR (Non-African Ame 47 (>=60); Globulin 3.4 g/dL; Glucose 126 mg/dL (74-106); Sodium 140 mmol/L (136-145); Total Protein 7.2 g/dL (6.4-8.2)
[2024-03-26 16:52] LABS: Potassium 2.9 mmol/L (3.5-5.1)
[2024-03-26] MEDS: POTASSIUM CHLORIDE IN WATER 10 MEQ/100 ML PIGGYBACK 100 MEQ IV ×2 (17:20→18:17)
[2024-03-26 17:21] VITALS: BP 160/88; PULSE 86; O2SAT 98
--- NOTE | 2024-03-26 17:59 | ED.GENADUL1 ---
HPI HPI - General Adult General Chief complaint: Nausea/Vomiting/Diarrhea Stated complaint: shoulder/flank pain, nausea, diarrhea Time Seen by Provider: 03/26/24 15:28 Source: patient Mode of arrival: walk-in Limitations: no limitations History of Present Illness HPI narrative: 33-year-old female to the emergency department chief complaint of nausea, vomiting, diarrhea. Symptoms began this morning. She reports she has some abdominal cramping worse in the right side. Worsened after she ate lunch so she came to the emergency department for evaluation. She denies any fever, sweats, chills. No chest pain or shortness of breath. Related Data Home Medications ?Medication ?Instructions ?Recorded ?Confirmed acebutolol 200 mg capsule 200 mg PO BID 06/09/23 06/09/23 bupropion HCl 300 mg 24 hr tablet, 300 mg PO DAILY 06/09/23 06/09/23 extended release oxaprozin 600 mg tablet 600 mg PO DAILY 06/09/23 06/09/23 pantoprazole 40 mg tablet,delayed 40 mg PO Q12H 06/09/23 06/09/23 release phentermine 37.5 mg capsule 37.5 mg PO DAILY 06/09/23 06/09/23 tizanidine 4 mg tablet 8 mg PO BEDTIME 06/09/23 06/09/23 trazodone 50 mg tablet 50 mg PO BEDTIME 06/09/23 06/09/23 triamterene 75 1 tab PO DAILY 06/09/23 06/09/23 mg-hydrochlorothiazide 50 mg tablet Previous Rx's ?Medication ?Instructions ?Recorded tizanidine 4 mg tablet 4 mg PO TID #30 tabs 06/11/23 tobramycin 0.3 % eye drops 1 drp ophthalmic (eye) Q4H #5 mL 01/20/24 tramadol 50 mg tablet 50 mg PO TID PRN pain 3 days #9 01/20/24 tabs dicyclomine 10 mg capsule 10 mg PO QID PRN abdominal pain 03/26/24 #12 caps ondansetron 4 mg disintegrating 4 mg PO Q8H PRN nausea and 03/26/24 tablet vomiting 4 days #16 tabs potassium chloride 20 mEq 40 meq (2 x 20 mEq) PO DAILY 3 03/26/24 tablet,extended days #6 tabs release(part/cryst) (Klor-Con M) Allergies Allergy/AdvReac Type Severity Reaction Status Date / Time irbesartan Allergy Severe Verified 11/11/23 22:45 silver Allergy Severe Hives Verified 11/11/23 22:45 Opioid HPI Opioid Management Most Recent Opioid Data: Last Pain Scale 7 06/13/23 12:52 Ur Phencyclidine Scrn Negative (NEGATIVE) 06/09/23 08:00 Review of Systems ROS Status of ROS 10 or more systems reviewed and unremarkable except as noted in history and below [facility] Medical History (Updated 03/26/24 @ 17:52 by Nathaniel Finn MD) Acute intractable headache ?R51.9 - Headache, unspecified (ICD-10) Social History Smoking status: Never smoker Exam Narrative Exam Narrative: VITALS: I have reviewed the triage vital signs. GENERAL: Well developed, well appearing adult in no acute distress. NEURO: Alert and oriented. Moves all extremities. Face is symmetric and expressive. EYES: PERRL. No scleral icterus or conjunctival injection. No discharge. HENT: Normocephalic, atraumatic. Hearing is grossly intact. Nares grossly patent and without discharge. Mucous membranes moist. NECK: No JVD. Patient moves neck without restriction. CARDIO: Rhythm regular. Normal rate. No murmur, rub, or gallop. Pulses equal bilaterally in the upper and lower extremity. No lower extremity edema. PULM: Lungs clear to auscultation in all connolly. No wheezes, rales, or rhonchi. No conversational dyspnea. No splinting, stridor, or accessory muscle use. GI/: Abdomen is soft and non-tender. Normoactive bowel sounds. EXTREMITIES: Symmetric muscle bulk. No joint swelling. No clubbing, cyanosis, or deformity. SKIN: Warm and dry. Normal turgor. No rash or lesions appreciated. PSYCH: Mood, affect, and interaction is appropriate to the setting. Constitutional Vital Signs, click to edit/add: Last Vital Signs Temp 97.9 F 03/26/24 15:31 Pulse 86 03/26/24 17:21 Resp 18 03/26/24 17:21 BP 160/88 H 03/26/24 17:21 Pulse Ox 98 03/26/24 17:21 Course Vital Signs Vital signs: Vital Signs Temperature 97.9 F 03/26/24 15:31 Pulse Rate 83 03/26/24 15:31 Respiratory Rate 18 03/26/24 15:31 Blood Pressure 157/99 H 03/26/24 15:31 Pulse Oximetry 99 03/26/24 15:31 Temperature 97.9 F 03/26/24 15:31 Pulse Rate 86 03/26/24 17:21 Respiratory Rate 18 03/26/24 17:21 Blood Pressure 160/88 H 03/26/24 17:21 Pulse Oximetry 98 03/26/24 17:21 Medical Decision Making MDM Narrative Medical decision making narrative: Well-appearing 33-year-old female to the emergency department chief complaint of nausea, vomiting, diarrhea. Vital stable, the patient is afebrile. Basic labs, lipase, CT scan ordered for evaluation of hepatobiliary pathology. Zofran and fluids ordered for the patient. CBC is unremarkable. On the chemistry she demonstrates baseline CKD for her. She has a mild hypokalemia, 20 mill equivalents given IV. Oral replacement for home. Her lipase is trivially elevated, does not meet definition of pancreatitis. CT scan is unremarkable. Low-lying IUD, appeared in place, notified as incidental. Patient reexamined. She has not had any vomiting. She is able to take oral intake. Clinical picture is not that of pancreatitis although it could be early. Clinical history is consistent with gastroenteritis. I discussed the diagnostic uncertainty with the patient. Given her well appearance, benign abdomen, stable vitals and controlled symptoms I believe she is a candidate for trial of outpatient therapy. Discussed gradual return to diet, Zofran and Bentyl use. She will continue taking her Protonix at home. Return precautions were discussed. If she worsens or does not improve in the next 24 hours she will return for repeat lab all questions were answered. The patient was discharged home. Medical Records Medical records reviewed: Yes I reviewed the patient's medical records Lab Data Lab results reviewed: Yes I reviewed the patient's lab results Labs: Lab Results 03/26/24 Range/Units 15:58 WBC 9.4 (4.0-11.0) 10^3/uL RBC 4.69 (4.20-5.40) 10^6/uL Hgb 12.5 (12.0-16.0) g/dL Hct 39.1 (36.0-48.0) % MCV 83.4 (81.0-99.0) fL MCH 26.7 (26.7-34.0) pg MCHC 32.0 (29.9-35.2) g/dL RDW 14.6 (11.0-15.0) % Plt Count 314 (150-450) 10^3/uL MPV 9.4 L (9.5-13.5) fL Neut % (Auto) 72.2 (43.0-75.0) % Lymph % (Auto) 18.8 L (20.5-60.0) % [place] % (Auto) 6.5 (1.7-12.0) % Eos % (Auto) 1.6 (0.9-7.0) % Baso % (Auto) 0.7 (0.2-2.0) % Neut # (Auto) 6.8 H (1.4-6.5) 10^3/uL Lymph # (Auto) 1.8 (1.2-3.8) 10^3/uL [place] # (Auto) 0.6 (0.3-0.8) 10^3/uL Eos # (Auto) 0.2 (0.0-0.7) 10^3/uL Baso # (Auto) 0.1 (0.0-0.1) 10^3/uL Abs Immat Gran (auto) 0.02 (0.00-0.03) 10^3/uL Imm/Tot Granulo (auto) 0.2 (0.0-0.5) % Sodium 140 (136-145) mmol/L Potassium 2.9 L* (3.5-5.1) mmol/L Chloride 102 (98-107) mmol/L Carbon Dioxide 28.1 (21.0-32.0) mmol/L Anion Gap 12.8 BUN 18.0 (7.0-18.0) mg/dL Creatinine 1.30 H (0.55-1.02) mg/dL Est GFR ( Amer) 57 L (>=60) Est GFR (Non-Af Amer) 47 L (>=60) BUN/Creatinine Ratio 13.8 Glucose 126 H (74-106) mg/dL Calcium 8.7 (8.5-10.1) mg/dL Total Bilirubin 0.3 (0.2-1.0) mg/dL AST 19 (15-37) U/L ALT 23 (14-59) U/L Alkaline Phosphatase 84 (46-116) U/L Total Protein 7.2 (6.4-8.2) g/dL Albumin 3.8 (3.4-5.0) g/dL Globulin 3.4 g/dL Albumin/Globulin Ratio 1.1 Lipase 93.0 H (16.0-77.0) U/L Imaging Data CT scan - abdomen: Radiologist's impression: ITS Impressions Abdomen/Pelvis CT 03/26/24 15:48 IMPRESSION: 1. No acute process identified to explain right upper quadrant pain. 2. IUD in place, appears slightly low-lying and possibly malpositioned. Electronically authenticated by: ILENE SOLORZANO Date: 03/26/2024 17:26 Discharge Plan Discharge Stand Alone Forms: Portal Instructions Chief Complaint: Nausea/Vomiting/Diarrhea Clinical Impression: Nausea & vomiting Patient Disposition: Home, Self-Care Time of Disposition Decision: 17:51 Condition: Good Mode of Transportation: Private Vehicle Prescriptions / Home Meds: New dicyclomine 10 mg capsule 10 mg PO QID PRN (Reason: abdominal pain) Qty: 12 0RF ondansetron 4 mg tablet,disintegrating 4 mg PO Q8H PRN (Reason: nausea and vomiting) 4 Days Qty: 16 0RF potassium chloride [Klor-Con M20] 20 mEq tablet,ER particles/crystals 40 meq PO DAILY 3 Days Qty: 6 0RF No Action tobramycin 0.3 % drops 1 drp ophthalmic (eye) Q4H Qty: 5 0RF Rx Instructions: please apply to the left eye tramadol 50 mg tablet 50 mg PO TID PRN (Reason: pain) 3 Days Qty: 9 0RF acebutolol 200 mg capsule 200 mg PO BID bupropion HCl 300 mg tablet extended release 24 hr 300 mg PO DAILY oxaprozin 600 mg tablet 600 mg PO DAILY pantoprazole 40 mg tablet,delayed release (DR/EC) 40 mg PO Q12H phentermine 37.5 mg capsule 37.5 mg PO DAILY tizanidine 4 mg tablet 8 mg PO BEDTIME trazodone 50 mg tablet 50 mg PO BEDTIME triamterene-hydrochlorothiazid 75-50 mg tablet 1 tab PO DAILY tizanidine 4 mg tablet 4 mg PO TID Qty: 30 0RF Rx Instructions: 1 po TID or 1 in am and 2 at hs Print Language: Khmer Instructions: Acute Nausea and Vomiting (ED) Additional Instructions: Call the office of your primary care doctor to arrange for follow-up within the above-stated timeframe. Your ED visit was focused on your acute issue and does not replace primary care. You should review your labs, imaging, and diagnoses from this ED visit with your primary care physician. There may be non-emergent/ incidental findings that need further evaluation. You should review your vital signs including blood pressure with your PCP. If you were prescribed medications you should discuss possible side-effects and drug interactions with your pharmacist. Call 911 or go to the nearest Emergency Department if you develop any new or worsening symptoms. Seek immediate medical attention if you develop: worsening abdominal pain, new or worsening nausea, new or worsening vomiting, new or worsening diarrhea, chest pain, shortness of breath, pain with urination, problems urinating, fever, chills, weakness, or any new or worsening symptoms. Incidental findings: Low-lying IUD which appears in place. May be investigated by the physician who placed it. Referrals: Felipe Brooke MD [Primary Care Provider] - 1 week
[2024-03-26 19:17] VITALS: BP 129/64; PULSE 69; O2SAT 100
== END 2024-03-26 19:25 | disposition home or self-care (01) ==
PROVIDERS: Emergency Provider Student in an Organized Health Care Education/Training Program; PCP Family Medicine
DX: R11.2 Nausea with vomiting, unspecified (principal)
CPT/HCPCS: 36415; 74177; 80053; 83690; 85025; 96361; 96365; 96366; 96375; 99285; J2405; J3480; Q9967

== ENCOUNTER 2024-04-14 16:08 | Outpatient (OUT) | payer OTHER, SELFPAY ==
--- OUTSIDE RECORDS SUMMARY | 2024-04-14 16:35 | XMS_ITS | CCD ---
Author Organization [facility] CliniSymt Care Team Providers Care Emts Name Role Phone Donnell Brooke Primary Care Physician MD Bonnie Jeffrey Attending Provider [phone] MD Donnell Brooke Primary Care Provider [phone] Edwardo PROVIDERDonnell Referring Unavailabl e NILL, Sanjay Gibbons Attending Unavailable NILL, Sanjay Gibbons Attending Unavailable NILL, Sanjay Gibbons Attending Unavailable NILL, Sanjay Gibbons Attending Unavailable Hoy PROVIDERDonnell Referring Unavailabl e NILL, Sanjay Gibbons Attending Unavailable Bonnie Jeffrey Unavailable MD Bonnie Jeffrey Attending Provider [phone] MD Donnell Brooke Primary Care Provider [phone] MARTHAY ., DR JACOBO Primary Care [...] ., SOHAIL Attending Unavailable REINECK, DR SUJEY Anthoyn Consulting Unavailabl e ZIEBER, DR MYAH Gibbons [...] [morphine] Drug Allergy 3 Chest pain (finding) [facility] [place] (14 sources) SILVER; Translations: [SILVER] Allergy to substance 4 INFECTION, Edema, silver wound pack reversed healing [facility] (4 sources) irbesartan; Translations: [irbesartan] Drug Allergy 3 Unknown Reaction [facility] (1 source) MORPHINE SUBSTITUTE; Translations: [MORPHINE SUBSTITUTE] Propensity to adverse reactions (disorder) [facility] (1 source) Morphine Drug Allergy [facility] Medications Current Medications Medication Drug Class(es) Dates Sig (Normalized) Sig (Original) acebutolol 200 mg oral capsule (11 sources) beta-Adrenergic Ana Start: 09-26-2022 take 200 mg by mouth twice daily Acebutolol Active 200 MG PO Twice daily September 26, 2022 1:00am Start: 07-27-2022 take 1 capsule by mo [facility] twice daily acebutolol 200 mg Cap 200 mg = 1 cap(s), Oral, BID, Refills(s) 0 Start Date: 07/27/22 Status: Ordered take 1 capsule by mo [facility] every twenty-four hours Acebutolol HCl 200 MG [...] by mouth once daily in the morning Triamterene-Pettus chlorothiazid Active 1 TAB PO Every morning September 26, 2022 1:00am levonorgestrel 0.943876 mg/hr intrauterine system (2 sources) Progestin, Progestin-containing [...] Start: 07-27-2022 take 2 tablets by mo [facility] once daily oxaprozin 600 mg Tab 1,200 [...] Start: 07-27-2022 take 2 tablets by mo [facility] at bedtime tiZANidine 4 mg Tab 8 mg = 2 tab(s), Oral, Bedtime, Refills(s) 0 Start Date: 07/27/22 Status: Ordered take 1 capsule by [facility] every eight hours tiZANidine HCl 4 MG [...] 09-28-2022 Episodic Other aftercare (1 source) 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; Translations: [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 CLEANER CURRENT DRUG THERAPY] Onset: 09-18-2022 Episodic Other [...] 3V*on 023 XR hand RT min 3V* [facility] Main [address] [address] XRay Report Signed Patient: Veronica Ross MR#: [id number] : 1990 Acct:[id number] Age/Sex: 32 / F ADM Date: 12/11/22 Loc: [facility] Room: Type: REG CLI Attending Dr: Bonnie [...] Dong Jr., DSandeeOSandee12/11/2022 4:55 PM Dictation Location: [place] [address] Transcribed By: [facility] 12/11/22 165 Dictated By: Willie Dong Jr, DO 12/11/221652 Signed By: 12/11/22 1655 Normal [facility] XR hand RT min 3V*on 023 XR hand RT min 3V* [facility] Main [address] [address] XRay Report Signed Patient: Veronica Ross MR#: [id number] : 1990 Acct:[id number] Age/Sex: 32 / F ADM Date: 11/13/22 Loc: [facility] Room: Type: REG CLI Attending Dr: Bonnie [...] Kalpesh Murry M.D.11/13/2022 5:23 PM Dictation Location: [place] [address] Transcribed By: [facility] 11/13/22 172 Dictated By: Kalpesh Murry II, MD 11/13/22 172 Signed By: 11/13/22 172 Normal [facility] XR hand RT min 3V* [facility] Other XR hand RT min 3V* [facility] Other XR hand RT min 3V* [address] [place] [address] [employer] Other XR hand RT min 3V* [place] [address] [facility] Other XR hand RT min 3V* XRay Report [facility] Other XR hand RT min 3V* Signed [facility] Other XR hand RT min 3V* Patient: Veronica Ross MR#: [id number] [employer] Other XR hand RT min 3V* 7067 [facility] Other XR hand RT min 3V* : 1990 Acct:[id number] [facility] Other XR hand RT min 3V* Age/Sex: 32 / F ADM Date: 11/13/22 [facility] Other XR hand RT min 3V* Loc: [facility]: [facility] Other XR hand RT min 3V* Attending Dr: Bonnie Jeffrey MD [facility] Other XR hand RT min 3V* Copies to: Bonnie Jeffrey MD [facility] Other XR hand RT min 3V* Ordering Provider: Bonnie Jeffrey MD [facility] Other XR hand RT min 3V* Date of Service: 11/13/22 [facility] Other XR hand RT min 3V* XR/XR hand RT min 3V*: Crushing injury of right thumb, subsequent [facility] Other XR hand RT min 3V* encounter [facility] Other XR hand RT min 3V* XR hand RT min 3V* 11/13/2022 3:49 PM [facility] Other XR hand RT min 3V* SIGNS AND SYMPTOMS: Status post incision and debridement of open fracture of right thumb, follow-up [facility] Other XR hand RT min 3V* PROTOCOL: Frontal, lateral, and oblique radiographs of the right hand [facility] Other XR hand RT min 3V* COMPARISON: 09/25/2022 [facility] Other XR hand RT min 3V* FINDINGS: [facility] Other XR hand RT min 3V* Healing/healed fracture of the distal phalanx of the right thumb. There is no change in alignment. [facility] Other XR hand RT min 3V* The joint spaces are preserved. No significant soft tissue swelling. [facility] Other XR hand RT min 3V* XR/XR hand RT min 3V* [facility] Other XR hand RT min 3V* IMPRESSION: [facility] Other XR hand RT min 3V* Impression dictated by: Kalpesh Murry M.D.11/13/2022 5:23 PM [employer] Other XR hand RT min 3V* Dictation Location: [place] [address] [employer] [facility] hoccer Other XR hand RT min 3V* Transcribed By: [facility] 11/13/[address] [place] [address] [employer] Other XR hand RT min 3V* Dictated By: Kalpesh Murry II, MD 11/13/[address] [place] [address] [employer] Other XR hand RT min 3V* Signed By: Reading [facility] Other XR hand RT min 3V* 11/13/[address] [place] [address] [employer] Other PROF CHEM 8 (BAS METB)on Anion gap [Moles/Vol] 11.0 mmol/L Normal [facility] Comment on above: Performed By: #### B MP #### [facility] [address] [place] [address] Dr. Shemar Armas Calcium [Mass/Vol] 8.8 mg/dL Normal 8.5-10.1 [facility] Comment on above: Performed By: #### B MP #### [facility] [address] [address] [address] Shemar Armas Chloride [Moles/Vol] 100 mmol/L Normal 98-107 [facility] Comment on above: Performed By: #### B MP #### [facility] [address] [place] [address] Dr. Shemar Armas CO2 [Moles/Vol] 31.5 mmol/L Normal 21.0-32.0 [facility] Comment on above: Performed By: #### B MP #### [facility] [address] [place] [address] [address] Shemar Armas Creatinine [Mass/Vol] 1.18 mg/dL Critically high 0.55-1.02 [facility] Comment on above: Performed By: #### B MP #### [facility] [address] [place] [address] [address] Shemar Armas EGFR-AF CITIZEN [place] >60 Normal >=60 [facility] Comment on above: Performed By: #### B MP #### [facility] [address] [place] [address] [address] Shemar Armas EGFR-NON AF CITIZEN OF [place] 53 mL/min/1.73m2 Critically low >=60 [facility] Comment on above: Performed By: #### B MP #### [facility] [address] [place] [address] [address] Shemar Armas Glucose [Mass/Vol] 89 mg/dL Normal 74-106 [facility] Comment on above: Performed By: #### B MP #### [facility] [address] [place] [address] [address] Shemar Armas Potassium [Moles/Vol] 3.5 mmol/L Normal 3.5-5.1 [facility] Comment on above: Performed By: #### B MP #### [facility] [address] [place] [address] [address] Shemar Armas Sodium [Moles/Vol] 139 mmol/L Normal 136-145 [facility] Comment on above: Performed By: #### B MP #### [facility] [address] [place] [address] [address] Shemar Armas Urea nitrogen [Mass/Vol] 11.0 mg/dL Normal 7.0-18.0 [facility] Comment on above: Performed By: #### B MP #### [facility] [address] [place] [address] [address] Shemar Armas Urea nitrogen/Creatinine [Mass ratio] 9.3 mg/mg Normal [facility] Comment on above: Performed By: #### B MP #### [facility] [address] [place] [address] [address] Shemar Armas HCG ( test) Aiden benjamin Ql (U)Ordered By: THOM DUONG on 09-28-2022 HCG ( test) Ql (U) Negative [facility] HCG,Urineon 09-28-2022 Beta HCG ( test) Ql (U) Negative Normal [facility] Comment on above: Result Comment: PERF ORMED BY: [place] [address] PATHOLOGIST FASTENER SEWING MACHINE OPERATOR KWABENA MELVIN M.D. Performed By: #### U HCG #### [facility] [address] [place] [address] [place] Albumin [Mass/volume] in Ser um or PlasmaOrdered By: Bonnie Jeffrey on 09-26-2022 Albumin [Mass/Vol] 4.0 g/dL 3.2-5.5 [facility] Basophils Auto (Bld) [#/Vol] Ordered By: Bonnie Jeffrey on 09-26-2022 Basophils (Bld) [#/Vol] 0.1 10*3/uL 0.0-0.2 [facility] Basophils/100 WBC Auto (Bld) Ordered By: Bonnie Jeffrey on 09-26-2022 Basophils/100 WBC (Bld) 1.2 % . [facility] Complete Blood Count Auto Di ffon 09-26-2022 Basophils (Bld) [#/Vol] 0.1 10*3/uL Normal 0.0-0.2 [facility] Comment on above: Result Comment: PERF ORMED BY: [place] [address] PATHOLOGIST FASTENER SEWING MACHINE OPERATOR KWABENA MELVIN M.D. Performed By: #### C BC, CMP #### [facility] [address] [place] [address] [place] Basophils/100 WBC (Bld) 1.2 % Normal . [facility] Comment on above: Performed By: #### C BC, CMP #### [facility] [address] [place] [address] [place] Eosinophils (Bld) [#/Vol] 0.1 10*3/uL Normal 0.0-0.45 [facility] Comment on above: Performed By: #### C BC, CMP #### [facility] [address] [place] [address] [place] Eosinophils/100 WBC (Bld) 0.9 % Normal . [facility] Comment on above: Performed By: #### C BC, CMP #### [facility] [address] Erythrocyte distribution width (RBC) [Ratio] 13.6 % Normal 11.9-15.3 [facility] Comment on above: Performed By: #### C BC, CMP #### [facility] [address] Hematocrit (Bld) [Volume fraction] 40.2 % Normal 34.0-46.4 [facility] Comment on above: Performed By: #### C BC, CMP #### [facility] [address] Hemoglobin (Bld) [Mass/Vol] 13.3 g/dL Normal 11.8-15.4 [facility] Comment on above: Performed By: #### C BC, CMP #### [facility] [address] Lymphocytes (Bld) [#/Vol] 1.7 10*3/uL Normal 1.00-4.8 [facility] Comment on above: Performed By: #### C BC, CMP #### [facility] [address] [place] [address] [place] Lymphocytes/100 WBC (Bld) 18.1 % Normal . [facility] Comment on above: Performed By: #### C BC, CMP #### [facility] [address] [place] [address] [place] MCH (RBC) [Entitic mass] 28.8 pg Normal 24.7-34.3 [facility] Comment on above: Performed By: #### C BC, CMP #### [facility] [address] MCV (RBC) [Entitic vol] 87.1 fL Normal 80-100 [facility] Comment on above: Performed By: #### C BC, CMP #### [facility] [address] [place] [id number] [place] Mean Corpuscular HGB Conc 33.0 g/dL Normal 32.0-35.0 [facility] Comment on above: Performed By: #### C BC, CMP #### [facility] [address] [place] [address] [place] Monocytes (Bld) [#/Vol] 0.5 10*3/uL Normal 0.0-0.8 [facility] Comment on above: Performed By: #### C BC, CMP #### [facility] [address] [place] [address] [place] Monocytes/100 WBC (Bld) 5.8 % Normal . [facility] Comment on above: Performed By: #### C BC, CMP #### [facility] [address] [place] [address] [place] Neutrophils (Bld) [#/Vol] 7.0 10*3/uL Normal 1.8-7.7 [facility] Comment on above: Performed By: #### C BC, CMP #### [facility] [address] [place] [id number] [place] Neutrophils/100 WBC (Bld) 74.0 % Normal . [facility] Comment on above: Performed By: #### C BC, CMP #### [facility] [address] [place] [id number] [place] NRBC% 0.0 /100{WBC} Normal 0-0.5 [facility] Comment on above: Performed By: #### C BC, CMP #### [facility] [address] [place] [id number] [place] Platelet mean volume (Bld) [Entitic vol] 7.8 fL Normal 6.3-10.7 [facility] Comment on above: Performed By: #### C BC, CMP #### [facility] [address] [place] [id number] [place] Platelets (Bld) [#/Vol] 335 10*3/uL Normal 150-450 [facility] Comment on above: Performed By: #### C BC, CMP #### [address] RBC (Bld) [#/Vol] 4.62 10*6/uL Normal 3.60-5.00 [facility] Comment on above: Performed By: #### C BC, CMP #### [address] WBC (Bld) [#/Vol] 9.4 10*3/uL Normal 3.8-11.6 [facility] Comment on above: Performed By: #### C BC, CMP #### [address] Comprehensive Metabolic Pane [place] 09-26-2022 Albumin [Mass/Vol] 4.0 g/dL Normal 3.2-5.5 [facility] Comment on above: Performed By: #### C BC, CMP #### [address] Albumin/Globulin [Mass ratio] 1.4 {ratio} Normal [facility] Comment on above: Performed By: #### C BC, CMP #### [address] ALP [Catalytic activity/Vol] 45 U/L Normal 32-92 [facility] Comment on above: Result Comment: PERF ORMED BY: [place] [address] PATHOLOGIST FASTENER SEWING MACHINE OPERATOR KWABENA MELVIN M.D. Performed By: #### C BC, CMP #### [address] ALT [Catalytic activity/Vol] 19 U/L Normal 10-60 [facility] Comment on above: Performed By: #### C BC, CMP #### [address] Anion gap [Moles/Vol] 13.8 mmol/L Normal 6.0-15.0 [facility] Comment on above: Performed By: #### C BC, CMP #### [address] [place] [address] [place] AST [Catalytic activity/Vol] 17 U/L Normal 10-42 [facility] Comment on above: Performed By: #### C BC, CMP #### [facility] [address] Bilirubin [Mass/Vol] 0.5 mg/dL Normal 0.3-1.2 [facility] Comment on above: Performed By: #### C BC, CMP #### [facility] [address] Calcium [Mass/Vol] 8.9 mg/dL Normal 8.2-10.2 [facility] Comment on above: Performed By: #### C BC, CMP #### [address] Chloride [Moles/Vol] 100 mmol/L Normal 95-114 [facility] Comment on above: Performed By: #### C BC, CMP #### [facility] [address] CO2 [Moles/Vol] 23.7 mmol/L Normal 22.0-30.0 [facility] Comment on above: Performed By: #### C BC, CMP #### [facility] [address] Creatinine [Mass/Vol] 1.82 mg/dL High 0.44-1.03 [facility] Comment on above: Performed By: #### C BC, CMP #### [facility] [address] Estimated GFR ( Perri 39 [facility] Comment on above: Result Comment: GFR estimated reference range: According to KDOQI guidelines, <60 ml/min/1.73m2 is sufficient to diagnose a patient with chronic kidney disease. Performed By: #### C BC, CMP #### [place] [address] [place] Estimated GFR (Non- Am 32 [facility] Comment on above: Performed By: #### C BC, CMP #### [place] [id number] [place] Globulin (S) [Mass/Vol] 2.8 g/dL Normal [facility] Comment on above: Performed By: #### C BC, CMP #### [facility] [address] Glucose [Mass/Vol] 86 mg/dL Normal 70-100 [facility] Comment on above: Result Comment: [facility] Glucose Reference Range is dependent on time and content of last meal. Glucose of more than 200 mg/dL in a nonstressed, ambulatory subject supports the diagnosis of Diabetes Mellitus. ADA recommended reference range Performed By: #### C BC, CMP #### [facility] [address] Potassium [Moles/Vol] 3.5 mmol/L Normal 3.5-5.1 [facility] Comment on above: Performed By: #### C BC, CMP #### [address] Protein [Mass/Vol] 6.8 g/dL Normal 6.1-7.9 [facility] Comment on above: Performed By: #### C BC, CMP #### [address] Sodium [Moles/Vol] 134 mmol/L Low 136-146 [facility] Comment on above: Performed By: #### C BC, CMP #### [address] Urea nitrogen [Mass/Vol] 25 mg/dL High 9-23 [facility] Comment on above: Performed By: #### C BC, CMP #### [place] [address] [place] Creatinine and Glomerular fi ltration rate.predicted panel (S/P/Bld)Ordered By: Bonnie Jeffrey on 09-26-2022 Creatinine [Mass/Vol] 1.82 mg/dL 0.44-1.03 [facility] Eosinophils Auto (Bld) [#/Vo l]Ordered By: Bonnie Jeffrey on 09-26-2022 Eosinophils (Bld) [#/Vol] 0.1 10*3/uL 0.0-0.45 [facility] Eosinophils/100 WBC Auto (Bl d)Ordered By: Bonnie Jeffrey on 09-26-2022 Eosinophils/100 WBC (Bld) 0.9 % . [facility] Erythrocyte distribution wid th Auto (RBC) [Ratio]Ordered By: Bonnie Jeffrey on 09-26-2022 Erythrocyte distribution width (RBC) [Ratio] 13.6 % 11.9-15.3 [facility] Estimated glomerular filtrat ion rate (GFR) non- AmericanOrdered By: Bonnie Jeffrey on 09-26-2022 GFR/1.73 sq M.predicted among non-blacks MDRD (S/P/Bld) [Vol rate/Area] 32 mL/Min [facility] Globulin Calc (S) [Mass/Vol] Ordered By: Bonnie Jeffrey on 09-26-2022 Globulin (S) [Mass/Vol] 2.8 g/dL [facility] Hematocrit Auto (Bld) [Volum e fraction]Ordered By: Bonnie Jeffrey on 09-26-2022 Hematocrit (Bld) [Volume fraction] 40.2 % 34.0-46.4 [facility] Hemoglobin [Mass/volume] in BloodOrdered By: Bonnie Jeffrey on 09-26-2022 Hemoglobin (Bld) [Mass/Vol] 13.3 g/dL 11.8-15.4 [facility] Leukocytes [#/volume] correc franco for nucleated erythrocytes in Blood by Automated counOrdered By: Bonnie Jeffrey on 09-26-2022 WBC corrected for nucl RBC Auto (Bld) [#/Vol] 9.4 10*3/uL 3.8-11.6 [facility] Lymphocytes Auto (Bld) [#/Vo l]Ordered By: Bonnie Jeffrey on 09-26-2022 Lymphocytes (Bld) [#/Vol] 1.7 10*3/uL 1.00-4.8 [facility] Lymphocytes/100 WBC Auto (Bl d)Ordered By: Bonnie Jeffrey on 09-26-2022 Lymphocytes/100 WBC (Bld) 18.1 % . [facility] MCH Auto (RBC) [Entitic mass ]Ordered By: Bonnie Jeffrey on 09-26-2022 MCH (RBC) [Entitic mass] 28.8 pg 24.7-34.3 [facility] MCHC Auto (RBC) [Mass/Vol]Or dered By: Bonnie Jeffrey on 09-26-2022 MCHC (RBC) [Mass/Vol] 33.0 g/dL 32.0-35.0 [facility] MCV Auto (RBC) [Entitic vol] Ordered By: Bonnie Jeffrey on 09-26-2022 MCV (RBC) [Entitic vol] 87.1 fL 80-100 [facility] Monocytes Auto (Bld) [#/Vol] Ordered By: Bonnie Jeffrey on 09-26-2022 Monocytes (Bld) [#/Vol] 0.5 10*3/uL 0.0-0.8 [facility] Monocytes/100 WBC Auto (Bld) Ordered By: Bonnie Jeffrey on 09-26-2022 Monocytes/100 WBC (Bld) 5.8 % . [facility] Neutrophils Auto (Bld) [#/Vo l]Ordered By: Bonnie Jeffrey on 09-26-2022 Neutrophils (Bld) [#/Vol] 7.0 10*3/uL 1.8-7.7 [facility] Neutrophils/100 WBC Auto (Bl d)Ordered By: Bonnie Jeffrey on 09-26-2022 Neutrophils/100 WBC (Bld) 74.0 % . [facility] No Panel InformationOrdered By: Bonnie Jeffrey on 09-26-2022 Estimated GFR () 39 mL/Min [facility] Comment on above: GFR estimated refere nce range: According to KDOQI guidelines, <60 ml/min/1.73m2 is sufficient to diagnose a patient with chronic kidney disease. Pharmacy Creatinine Clearance (Chem N/A [facility] Nucleated erythrocytes [Pres ence] in Blood by Automated countOrdered By: Bonnie Jeffrey on 09-26-2022 Nucleated RBC Auto Ql (Bld) 0.0 /100{WBC} 0-0.5 [facility] Platelet mean volume Auto (B ld) [Entitic vol]Ordered By: Bonnie Jeffrey on 09-26-2022 Platelet mean volume (Bld) [Entitic vol] 7.8 fL 6.3-10.7 [facility] Platelets Auto (Bld) [#/Vol] Ordered By: Bonnie Jeffrey on 09-26-2022 Platelets (Bld) [#/Vol] 335 10*3/uL 150-450 [facility] Protein [Mass/volume] in Ser um or PlasmaOrdered By: Bonnie Jeffrey on 09-26-2022 Protein [Mass/Vol] 6.8 g/dL 6.1-7.9 [facility] RBC Auto (Bld) [#/Vol]Ordere d By: Bonnie Jeffrey on 09-26-2022 RBC (Bld) [#/Vol] 4.62 10*6/uL 3.60-5.00 [facility] Serum or plasma alanine kamara otransferase measurement without P-5'-P (enzymatic activiOrdered By: Bonnie Jeffrey on 09-26-2022 ALT No additional P-5'-P [Catalytic activity/Vol] 19 U/L 10-60 [facility] Serum or plasma albumin/glob ulin mass ratioOrdered By: Bonnie Jeffrey on 09-26-2022 Albumin/Globulin [Mass ratio] 1.4 {ratio} [facility] Serum or plasma alkaline mona sphatase measurement (enzymatic activity/volume)Ordered By: Bonnie Jeffrey on 09-26-2022 ALP [Catalytic activity/Vol] 45 U/L 32-92 [facility] Serum or plasma anion gap de terminationOrdered By: Bonnie Jeffrey on 09-26-2022 Anion gap [Moles/Vol] 13.8 mmol/L 6.0-15.0 [facility] Serum or plasma aspartate am inotransferase measurement (enzymatic activity/volume)Ordered By: Bonnie Jeffrey on 09-26-2022 AST [Catalytic activity/Vol] 17 U/L 10-42 [facility] Serum or plasma calcium sagrario urement (mass/volume)Ordered By: Bonnie Jeffrey on 09-26-2022 Calcium [Mass/Vol] 8.9 mg/dL 8.2-10.2 [facility] Serum or plasma chloride julieta surement (moles/volume)Ordered By: Bonnie Jeffrey on 09-26-2022 Chloride [Moles/Vol] 100 mmol/L 95-114 [facility] Serum or plasma glucose sagrario urement (mass/volume)Ordered By: Bonnie Jeffrey on 09-26-2022 Glucose [Mass/Vol] 86 mg/dL 70-100 [facility] Comment on above: ADA recommended refe rence rangeRandom Glucose Reference Range is dependent on time and content of last meal. Glucose of more than 200 mg/dL in a nonstressed, ambulatory subject supports the diagnosis of Diabetes Mellitus. Serum or plasma potassium me asurement (moles/volume)Ordered By: Bonnie Jeffrey on 09-26-2022 Potassium [Moles/Vol] 3.5 mmol/L 3.5-5.1 [facility] Serum or plasma sodium measu rement (moles/volume)Ordered By: Bonnie Jeffrey on 09-26-2022 Sodium [Moles/Vol] 134 mmol/L 136-146 [facility] Serum or plasma total biliru bin measurement (mass/volume)Ordered By: Bonnie Jeffrey on 09-26-2022 Bilirubin [Mass/Vol] 0.5 mg/dL 0.3-1.2 [facility] Serum or plasma total carbon dioxide measurement (moles/volume)Ordered By: Bonnie Jeffrey on 09-26-2022 CO2 [Moles/Vol] 23.7 mmol/L 22.0-30.0 [facility] Serum or plasma urea nitroge n measurement (mass/volume)Ordered By: Bonnie Jeffrey on 09-26-2022 Urea nitrogen [Mass/Vol] 25 mg/dL 9-23 [facility] WBC Auto (Bld) [#/Vol]Ordere d By: Bonnie Jeffrey on 09-26-2022 WBC (Bld) [#/Vol] 9.4 10*3/uL 3.8-11.6 [facility] Operative Reporton 3 Operative Report [id number]:127 Normal [facility] Pathology Noteon 09-14-2022 Pathology Note [id number]#[id number]:127 Normal [facility] PREG HCG QUALon 09-12-2022 , QUAL Negative Normal NEGATIVE [facility] Comment on above: Performed By: #### P REG #### [facility] [address] [place], [place] [address] Dr. Shemar Armas Lab Reportson 09-10-2022 Lab Reports [id number]:127 Normal [facility] Covid-19 PCR (CVDTBH)on 08-26 SARS-CoV-2 (COVID-19) RNA PADMINI+probe Ql (Unsp spec) Not detected Normal NOT DETECTED [facility] Comment on above: Result Comment: This test is not yet approved or cleared by the [place] FDA. When there are no FDA-approved or cleared tests available, and other criteria are met, FDA can make tests available under an emergency access mechanism called an Emergency Use Authorization (EUA). The EUA for this test is supported by the [employer] of Health and Human Service's (HHS's) declaration [...] SARS-CoV-2. Performed By: #### C VDTBH #### [facility] [address] [place], [place] [address] Dr. Shemar Armas ED Note-Physicianon 08-01-20 ED Note-Physician [id number]:127 Normal [facility] Consent for Procedure/Surger yon 07-31-2022 Consent for Procedure/Surgery [id number]#[id number]:127 Normal [facility] Physician Referralon Physician Referral [id number]#1.00CD:127 Normal [facility] US SINGLE QUAD RT UPPERon US [...] THOM ANGELA Date: 2022-07-09 17:10 Normal [facility] US KIDNEYS BLADDERon US KIDNEYS [...] THOM ANGELA Date: 2022-07-04 14:26 Normal [facility] CBC AUTO DIFFon 07-02-2022 BASO # 0.1 103/ul Normal 0.0-0.1 [facility] Comment on above: Performed By: #### C BC #### [facility] [address] [place] [address] [address] Shemar Armas Basophils/100 WBC (Bld) 0.6 % Normal 0.2-2.0 [facility] Comment on above: Performed By: #### C BC #### [facility] [address] [place] [address] [address] Shemar Armas EO # 0.1 103/ul Normal 0.0-0.7 [facility] Comment on above: Performed By: #### C BC #### [facility] [address] [address] [address] Shemar Armas Eosinophils/100 WBC (Bld) 0.8 % Critically low 0.9-7.0 [facility] Comment on above: Performed By: #### C BC #### [facility] [address] [place] [address] Dr. Shemar Armas Erythrocyte distribution width (RBC) [Ratio] 14.6 % Normal 11.0-15.0 [facility] Comment on above: Performed By: #### C BC #### [facility] [address] [place] [address] Dr. Shemar Armas Hematocrit (Bld) [Volume fraction] 36.4 % Normal 36.0-48.0 [facility] Comment on above: Performed By: #### C BC #### [facility] [address] [place] [address] Dr. Shemar Armas Hemoglobin (Bld) [Mass/Vol] 12.2 g/dL Normal 12.0-16.0 [facility] Comment on above: Performed By: #### C BC #### [facility] [address] [address] [address] Shemar Armas IG # 0.04 10e3/ul Critically high 0.00-0.03 [facility] Comment on above: Performed By: #### C BC #### [facility] [address] [place] [address] [address] Shemar Armas IG % 0.3 % Normal 0.0-0.5 [facility] Comment on above: Performed By: #### C BC #### [facility] [address] [place] [address] [address] Shemar Armas LYMPH # 2.1 103/ul Normal 1.2-3.8 [facility] Comment on above: Performed By: #### C BC #### [facility] [address] [place] [address] Dr. Shemar Armas Lymphocytes/100 WBC (Bld) 18.7 % Critically low 20.5-60.0 [facility] Comment on above: Performed By: #### C BC #### [facility] [address] [place] [address] Dr. Shemar Armas MANUAL DIFF REQ NO Normal [facility] Comment on above: Performed By: #### C BC #### [facility] [address] [place] [address] Dr. Shemar Armas MCH (RBC) [Entitic mass] 29.6 pg Normal 26.7-34.0 [facility] Comment on above: Performed By: #### C BC #### [facility] [address] [place] [address] Dr. Shemar Armas MCHC (RBC) [Mass/Vol] 33.5 g/dL Normal 29.9-35.2 [facility] Comment on above: Performed By: #### C BC #### [facility] [address] [place] [address] Dr. Shemar Armas MCV (RBC) [Entitic vol] 88.3 fL Normal 81.0-99.0 [facility] Comment on above: Performed By: #### C BC #### [facility] [address] [place] [address] Dr. Shemar Armas MONO # 0.7 103/ul Normal 0.3-0.8 [facility] Comment on above: Performed By: #### C BC #### [facility] [address] [place] [address] Dr. Shemar Armas Monocytes/100 WBC (Bld) 6.2 % Normal 1.7-12.0 [facility] Comment on above: Performed By: #### C BC #### [facility] [address] [address] [address] Shemar Armas NEUT # 8.4 103/ul Critically high 1.4-6.5 [facility] Comment on above: Performed By: #### C BC #### [facility] [address] [address] [address] Shemar Armas Neutrophils/100 WBC (Bld) 73.4 % Normal 43.0-75.0 [facility] Comment on above: Performed By: #### C BC #### [facility] [address] [address] [address] Shemar Armas Platelet mean volume (Bld) [Entitic vol] 9.2 fL Critically low 9.5-13.5 [facility] Comment on above: Performed By: #### C BC #### [facility] [address] [address] [address] Shemar Armas PLT 331 103/ul Normal 150-450 [facility] Comment on above: Performed By: #### C BC #### [facility] [address] [address] [address] Shemar Armas RBC 4.12 106/ul Critically low 4.20-5.40 [facility] Comment on above: Performed By: #### C BC #### [facility] [address] [address] [address] Shemar Armas WBC 11.4 103/ul Critically high 4.0-11.0 [facility] Comment on above: Performed By: #### C BC #### [facility] [address] [address] [address] Shemar Armas PROF CHEM 8 (BAS METB)on Anion gap [Moles/Vol] 11.5 mmol/L Normal [facility] Comment on above: Performed By: #### B MP #### [facility] [address] [address] [address] Shemar Armas Calcium [Mass/Vol] 8.9 mg/dL Normal 8.5-10.1 [facility] Comment on above: Performed By: #### B MP #### [facility] [address] [place] [address] [address] Shemar Armas Chloride [Moles/Vol] 102 mmol/L Normal 98-107 [facility] Comment on above: Performed By: #### B MP #### [facility] [address] [address] [address] Shemar Armas CO2 [Moles/Vol] 29.6 mmol/L Normal 21.0-32.0 [facility] Comment on above: Performed By: #### B MP #### [facility] [address] [place] [address] [address] Shemar Armas Creatinine [Mass/Vol] 1.93 mg/dL Critically high 0.55-1.02 [facility] Comment on above: Performed By: #### B MP #### [facility] [address] [place] [address] [address] Shemar Armas EGFR-AF [place] 37 mL/min/1.73m2 Critically low >=60 [facility] Comment on above: Performed By: #### B MP #### [facility] [address] [place] [address] [address] Shemar Armas EGFR-NON AF [place]IZ[place] 30 mL/min/1.73m2 Critically low >=60 [facility] Comment on above: Performed By: #### B MP #### [facility] [address] [address] [address] Shemar Armas Glucose [Mass/Vol] 93 mg/dL Normal 74-106 [facility] Comment on above: Performed By: #### B MP #### [facility] [address] [place] [address] [address] Shemar Armas Potassium [Moles/Vol] 4.1 mmol/L Normal 3.5-5.1 [facility] Comment on above: Performed By: #### B MP #### [facility] [address] [place] [address] [address] Shemar Armas Sodium [Moles/Vol] 139 mmol/L Normal 136-145 [facility] Comment on above: Performed By: #### B MP #### [facility] [address] [place] [address] Dr. Shemar Armas Urea nitrogen [Mass/Vol] 22.0 mg/dL Critically high 7.0-18 .0 [facility] Comment on above: Performed By: #### B MP #### [facility] [address] [place] [address] Dr. Shemar Armas Urea nitrogen/Creatinine [Mass ratio] 11.4 mg/mg Normal [facility] Comment on above: Performed By: #### B MP #### [facility] [address] [place] [address] Dr. Shemar Armas BNPon 06-29-2022 Natriuretic peptide B (Bld) [Mass/Vol] 159.0 pg/mL Normal <=450.0 [facility] Comment on above: Performed By: #### B MP #### [facility] [address] [place] [address] Dr. Shemar Armas CBC AUTO DIFFon 06-29-2022 BASO # 0.1 103/ul Normal 0.0-0.1 [facility] Comment on above: Performed By: #### P REG #### [facility] [address] [place] [address] Dr. Shemar Armas Basophils/100 WBC (Bld) 0.7 % Normal 0.2-2.0 [facility] Comment on above: Performed By: #### P REG #### [facility] [address] [place] [address] Dr. Shemar Armas EO # 0.1 103/ul Normal 0.0-0.7 [facility] Comment on above: Performed By: #### P REG #### [facility] [address] [place] [address] Dr. Shemar Armas Eosinophils/100 WBC (Bld) 1.4 % Normal 0.9-7.0 [facility] Comment on above: Performed By: #### P REG #### [facility] [address] [place] [address] Dr. Shemar Armas Erythrocyte distribution width (RBC) [Ratio] 14.5 % Normal 11.0-15.0 [facility] Comment on above: Performed By: #### P REG #### [facility] [address] [place] [address] [address] Shemar Armas Hematocrit (Bld) [Volume fraction] 35.4 % Critically low 36.0-48.0 [facility] Comment on above: Performed By: #### P REG #### [facility] [address] [place] [address] Dr. Shemar Armas Hemoglobin (Bld) [Mass/Vol] 11.9 g/dL Critically low 12.0-16.0 [facility] Comment on above: Performed By: #### P REG #### [facility] [address] [place] [address] Dr. Shemar Armas IG # 0.05 10e3/ul Critically high 0.00-0.03 [facility] Comment on above: Performed By: #### P REG #### [facility] [address] [place] [address] Dr. Shemar Armas IG % 0.5 % Normal 0.0-0.5 [facility] Comment on above: Performed By: #### P REG #### [facility] [address] [place] [address] Dr. Shemar Armas LYMPH # 1.7 103/ul Normal 1.2-3.8 [facility] Comment on above: Performed By: #### P REG #### [facility] [address] [place] [address] Dr. Shemar Armas Lymphocytes/100 WBC (Bld) 17.3 % Critically low 20.5-60.0 [facility] Comment on above: Performed By: #### P REG #### [facility] [address] [place] [address] Dr. Shemar Armas MANUAL DIFF REQ NO Normal [facility] Comment on above: Performed By: #### P REG #### [facility] [address] [place] [address] Dr. Shemar Armas MCH (RBC) [Entitic mass] 29.5 pg Normal 26.7-34.0 [facility] Comment on above: Performed By: #### P REG #### [facility] [address] [place] [address] [address] Shemar Armas MCHC (RBC) [Mass/Vol] 33.6 g/dL Normal 29.9-35.2 [facility] Comment on above: Performed By: #### P REG #### [facility] [address] [place] [address] [address] Shemar Armas MCV (RBC) [Entitic vol] 87.8 fL Normal 81.0-99.0 [facility] Comment on above: Performed By: #### P REG #### [facility] [address] [place] [address] [address] Shemar Armas MONO # 0.6 103/ul Normal 0.3-0.8 [facility] Comment on above: Performed By: #### P REG #### [facility] [address] [place] [address] [address] Shemar Armas Monocytes/100 WBC (Bld) 6.3 % Normal 1.7-12.0 [facility] Comment on above: Performed By: #### P REG #### [facility] [address] [address] [address] Shemar Armas NEUT # 7.1 103/ul Critically high 1.4-6.5 [facility] Comment on above: Performed By: #### P REG #### [facility] [address] [place] [address] [address] Shemar Armas Neutrophils/100 WBC (Bld) 73.8 % Normal 43.0-75.0 [facility] Comment on above: Performed By: #### P REG #### [facility] [address] [place] [address] [address] Shemar Armas Platelet mean volume (Bld) [Entitic vol] 9.4 fL Critically low 9.5-13.5 [facility] Comment on above: Performed By: #### P REG #### [facility] [address] [place] [address] [address] Shemar Armas PLT 350 103/ul Normal 150-450 [facility] Comment on above: Performed By: #### P REG #### [facility] [address] [place] [address] [address] Shemar Armas RBC 4.03 106/ul Critically low 4.20-5.40 [facility] Comment on above: Performed By: #### P REG #### [facility] [address] [place] [address] [address] Shemar Armas WBC 9.6 103/ul Normal 4.0-11.0 [facility] Comment on above: Performed By: #### P REG #### [facility] [address] [place] [address] [address] Shemar Armas BASO # 0.0 103/ul Normal 0.0-0.1 [facility] Comment on above: Performed By: #### C BC #### [facility] [address] [place] [address] Dr. Shemar Armas Basophils/100 WBC (Bld) 0.6 % Normal 0.2-2.0 [facility] Comment on above: Performed By: #### C BC #### [facility] [address] [place] [address] Dr. Shemar Armas EO # 0.1 103/ul Normal 0.0-0.7 [facility] Comment on above: Performed By: #### C BC #### [facility] [address] [place] [address] Dr. Shemar Armas Eosinophils/100 WBC (Bld) 1.2 % Normal 0.9-7.0 [facility] Comment on above: Performed By: #### C BC #### [facility] [address] [place] [address] Dr. Shemar Armas Erythrocyte distribution width (RBC) [Ratio] 14.4 % Normal 11.0-15.0 [facility] Comment on above: Performed By: #### C BC #### [facility] [address] [place] [address] Dr. Shemar Armas Hematocrit (Bld) [Volume fraction] 29.3 % Critically low 36.0-48.0 [facility] Comment on above: Performed By: #### C BC #### [facility] [address] [address] [address] Shemar Armas Hemoglobin (Bld) [Mass/Vol] 9.9 g/dL Critically low 12.0-16.0 [facility] Comment on above: Performed By: #### C BC #### [facility] [address] [address] [address] Shemar Armas IG # 0.04 10e3/ul Critically high 0.00-0.03 [facility] Comment on above: Performed By: #### C BC #### [facility] [address] [address] [address] Shemar Armas IG % 0.6 % Critically high 0.0-0.5 [facility] Comment on above: Performed By: #### C BC #### [facility] [address] [place] [address] [address] Shemar Armas LYMPH # 1.5 103/ul Normal 1.2-3.8 [facility] Comment on above: Performed By: #### C BC #### [facility] [address] [place] [address] [address] Shemar Armas Lymphocytes/100 WBC (Bld) 20.1 % Critically low 20.5-60.0 [facility] Comment on above: Performed By: #### C BC #### [facility] [address] [place] [address] Dr. Shemar Armas MANUAL DIFF REQ NO Normal [facility] Comment on above: Performed By: #### C BC #### [facility] [address] [place] [address] [address] Shemar Armas MCH (RBC) [Entitic mass] 29.9 pg Normal 26.7-34.0 [facility] Comment on above: Performed By: #### C BC #### [facility] [address] [address] [address] Shemar Armas MCHC (RBC) [Mass/Vol] 33.8 g/dL Normal 29.9-35.2 [facility] Comment on above: Performed By: #### C BC #### [facility] [address] [address] [address] Shemar Armas MCV (RBC) [Entitic vol] 88.5 fL Normal 81.0-99.0 [facility] Comment on above: Performed By: #### C BC #### [facility] [address] [address] [address] Shemar Armas MONO # 0.5 103/ul Normal 0.3-0.8 [facility] Comment on above: Performed By: #### C BC #### [facility] [address] [place] [address] Dr. Shemar Armas Monocytes/100 WBC (Bld) 7.5 % Normal 1.7-12.0 [facility] Comment on above: Performed By: #### C BC #### [facility] [address] [place] [address] Dr. Shemar Armas NEUT # 5.1 103/ul Normal 1.4-6.5 [facility] Comment on above: Performed By: #### C BC #### [facility] [address] [place] [address] Dr. Shemar Armas Neutrophils/100 WBC (Bld) 70.0 % Normal 43.0-75.0 [facility] Comment on above: Performed By: #### C BC #### [facility] [address] [place] [address] Dr. Shemar Armas Platelet mean volume (Bld) [Entitic vol] 9.2 fL Critically low 9.5-13.5 [facility] Comment on above: Performed By: #### C BC #### [facility] [address] [place] [address] Dr. Shemar Armas PLT 225 103/ul Normal 150-450 [facility] Comment on above: Performed By: #### C BC #### [facility] [address] [place] [address] Dr. Shemar Armas RBC 3.31 106/ul Critically low 4.20-5.40 [facility] Comment on above: Performed By: #### C BC #### [facility] [address] [place] [address] Dr. Shemar Armas WBC 7.2 103/ul Normal 4.0-11.0 [facility] Comment on above: Performed By: #### C BC #### [facility] [address] [place] [address] Dr. Shemar Armas IRONon 06-29-2022 Iron [Mass/Vol] 110.0 ug/dL Normal 50.0-170.0 [facility] Comment on above: Performed By: #### P REG #### [facility] [address] [place] [address] Dr. Shemar Armas PROF 14(COMP METB)on 022 Albumin [Mass/Vol] 4.0 g/dL Normal 3.4-5.0 [facility] Comment on above: Performed By: #### P REG #### [facility] [address] [place] [address] Dr. Shemar Armas Albumin/Globulin [Mass ratio] 1.1 {ratio} Normal [facility] Comment on above: Performed By: #### P REG #### [facility] [address] [place] [address] Dr. Shemar Armas ALP [Catalytic activity/Vol] 57 U/L Normal 46-116 [facility] Comment on above: Performed By: #### P REG #### [facility] [address] [place] [address] Dr. Shmear Armas ALT [Catalytic activity/Vol] 26 U/L Normal 14-59 [facility] Comment on above: Performed By: #### P REG #### [facility] [address] [place] [address] Dr. Shemar Armas Anion gap [Moles/Vol] 10.0 mmol/L Normal Th [facility] Comment on above: Performed By: #### P REG #### [facility] [address] [place] [address] Dr. Shemar Armas AST [Catalytic activity/Vol] 15 U/L Normal 15-37 [facility] Comment on above: Performed By: #### P REG #### [facility] [address] [place] [address] Dr. Shemar Armas Bilirubin [Mass/Vol] 0.2 mg/dL Normal 0.2-1.0 [facility] Comment on above: Performed By: #### P REG #### [facility] [address] [address] [address] Shemar Armas Calcium [Mass/Vol] 8.8 mg/dL Normal 8.5-10.1 [facility] Comment on above: Performed By: #### P REG #### [facility] [address] [address] [address] Shemar Armas Chloride [Moles/Vol] 105 mmol/L Normal 98-107 [facility] Comment on above: Performed By: #### P REG #### [facility] [address] [address] [address] Shemar Armas CO2 [Moles/Vol] 26.8 mmol/L Normal 21.0-32.0 [facility] Comment on above: Performed By: #### P REG #### [facility] [address] [address] [address] Shemar Armas Creatinine [Mass/Vol] 1.60 mg/dL Critically high 0.55-1.02 [facility] Comment on above: Performed By: #### P REG #### [facility] [address] [place] [address] Dr. Shemar Armas EGFR-AF [place] 46 mL/min/1.73m2 Critically low >=60 [facility] Comment on above: Performed By: #### P REG #### [facility] [address] [address] [address] Shemar Armas EGFR-NON AF [place]IZEN [place] 38 mL/min/1.73m2 Critically low >=60 [facility] Comment on above: Performed By: #### P REG #### [facility] [address] [place] [address] Dr. Shemar Armas Globulin (S) [Mass/Vol] 3.5 g/dL Normal T [facility] Comment on above: Performed By: #### P REG #### [facility] [address] [place] [address] Dr. Shemar Armas Glucose [Mass/Vol] 98 mg/dL Normal 74-106 [facility] Comment on above: Performed By: #### P REG #### [facility] [address] [address] [address] Shemar Armas Potassium [Moles/Vol] 3.8 mmol/L Normal 3.5-5.1 [facility] Comment on above: Performed By: #### P REG #### [facility] [address] [address] [address] Shemar Armas Protein [Mass/Vol] 7.5 g/dL Normal 6.4-8.2 [facility] Comment on above: Performed By: #### P REG #### [facility] [address] [place] [address] Dr. Shemar Armas Sodium [Moles/Vol] 138 mmol/L Normal 136-145 [facility] Comment on above: Performed By: #### P REG #### [facility] [address] [place] [address] Dr. Shemar Armas Urea nitrogen [Mass/Vol] 24.0 mg/dL Critically high 7.0-18 .0 [facility] Comment on above: Performed By: #### P REG #### [facility] [address] [place] [address] Dr. Shemar Armas Urea nitrogen/Creatinine [Mass ratio] 15.0 mg/mg Normal [facility] Comment on above: Performed By: #### P REG #### [facility] [address] [address] [address] Shemar Armas Albumin [Mass/Vol] 3.3 g/dL Critically low 3.4-5.0 [facility] Comment on above: Performed By: #### B MP #### [facility] [address] [place] [address] Dr. Shemar Armas Albumin/Globulin [Mass ratio] 1.1 {ratio} Normal [facility] Comment on above: Performed By: #### B MP #### [facility] [address] [address] [address] Shemar Armas ALP [Catalytic activity/Vol] 55 U/L Normal 46-116 [facility] Comment on above: Performed By: #### B MP #### [facility] [address] [address] [address] Shemar Armas ALT [Catalytic activity/Vol] 21 U/L Normal 14-59 [facility] Comment on above: Performed By: #### B MP #### [facility] [address] [address] [address] Shemar Armas Anion gap [Moles/Vol] 8.1 mmol/L Normal [facility] Comment on above: Performed By: #### B MP #### [facility] [address] [address] [address] Shemar Armas AST [Catalytic activity/Vol] 13 U/L Critically low 15-37 [facility] Comment on above: Performed By: #### B MP #### [facility] [address] [address] [address] Shemar Armas Bilirubin [Mass/Vol] 0.1 mg/dL Critically low 0.2-1.0 [facility] Comment on above: Performed By: #### B MP #### [facility] [address] [address] [address] Shemar Armas Calcium [Mass/Vol] 7.5 mg/dL Critically low 8.5-10.1 [facility] Comment on above: Performed By: #### B MP #### [facility] [address] [address] [address] Shemar Armas Chloride [Moles/Vol] 107 mmol/L Normal 98-107 [facility] Comment on above: Performed By: #### B MP #### [facility] [address] [address] [address] Shemar Armas CO2 [Moles/Vol] 24.5 mmol/L Normal 21.0-32.0 [facility] Comment on above: Performed By: #### B MP #### [facility] [address] [address] [address] Shemar Armas Creatinine [Mass/Vol] 2.03 mg/dL Critically high 0.55-1.02 [facility] Comment on above: Performed By: #### B MP #### [facility] [address] [address] [address] Shemar Armas EGFR-AF [place] 35 mL/min/1.73m2 Critically low >=60 [facility] Comment on above: Performed By: #### B MP #### [facility] [address] [address] [address] Shemar Armas EGFR-NON AF CITIZEN OF [place] 29 mL/min/1.73m2 Critically low >=60 [facility] Comment on above: Performed By: #### B MP #### [facility] [address] [address] [address] Shemar Armas Globulin (S) [Mass/Vol] 2.9 g/dL Normal [facility] Comment on above: Performed By: #### B MP #### [facility] [address] [address] [address] Shemar Armas Glucose [Mass/Vol] 111 mg/dL Critically high 74-106 [facility] Comment on above: Performed By: #### B MP #### [facility] [address] [address] [address] Shemar Armas Potassium [Moles/Vol] 3.6 mmol/L Normal 3.5-5.1 [facility] Comment on above: Performed By: #### B MP #### [facility] [address] [address] [address] Shemar Armas Protein [Mass/Vol] 6.2 g/dL Critically low 6.4-8.2 [facility] Comment on above: Performed By: #### B MP #### [facility] [address] [address] [address] Shemar Armas Sodium [Moles/Vol] 136 mmol/L Normal 136-145 [facility] Comment on above: Performed By: #### B MP #### [facility] [address] [address] [address] Shemar Armas Urea nitrogen [Mass/Vol] 28.0 mg/dL Critically high 7.0-18 .0 [facility] Comment on above: Performed By: #### B MP #### [facility] [address] [place] [address] Dr. Shemar Armas Urea nitrogen/Creatinine [Mass ratio] 13.8 mg/mg Normal [facility] Comment on above: Performed By: #### B MP #### [facility] [address] [place] [address] Dr. Shemar Armas TROPONIN, HIGH SENSITIVITYon 06-29-2022 HSTROP 4.8 pg/mL Normal 4.0-51.3 [facility] Comment on above: Result Comment: CUT- OFF POINTS HAVE BEEN ESTABLISHED BASED ON THE FOURTH UNIVERSAL DEFINITIONS OF MYOCARDIAL INFARCTION. THE UPPER REFERENCE LIMIT (URL) OF TROPONIN, DEFINED THE 99TH PERCENTILE OF cTnI DISTRIBUTION IN A REFERENCE POPULATION, HAS BEEN CONFIRMED THE DECISION THRESHOLD FOR PA DIAGNOSIS. Performed By: #### B MP #### [facility] [address] [place] [address] Dr. Shemar Armas INSULINon 04-27-2022 Insulin 15.8 uIU/mL Normal 2.6-24.9 [facility] Comment on above: Performed By: #### I NSULIN #### [facility] [address] [place] [address] Dr. Shemar Armas T4, T3U, FTI LABCORPon 04-27 Free Thyroxine Index 3.1 Normal 1.2-4.9 [facility] Comment on above: Performed By: #### T HYLC #### [facility] [address] [place] [address] Dr. Shemar Armas T3 Uptake 31 % Normal 24-39 [facility] Comment on above: Performed By: #### T HYLC #### [facility] [address] [place] [address] Dr. Shemar Armas T4 [Mass/Vol] 10.1 ug/dL Normal 4.5-12.0 [facility] Comment on above: Performed By: #### T HYLC #### [facility] [address] [place] [address] Dr. Shemar Armas CBC AUTO DIFFon 04-26-2022 BASO # 0.1 103/ul Normal 0.0-0.1 [facility] Comment on above: Performed By: #### B MP #### [facility] [address] [address] [address] Shemar Armas Basophils/100 WBC (Bld) 0.7 % Normal 0.2-2.0 [facility] Comment on above: Performed By: #### B MP #### [facility] [address] [place] [address] Dr. Shemar Armas EO # 0.1 103/ul Normal 0.0-0.7 [facility] Comment on above: Performed By: #### B MP #### [facility] [address] [place] [address] Dr. Shemar Armas Eosinophils/100 WBC (Bld) 0.9 % Normal 0.9-7.0 [facility] Comment on above: Performed By: #### B MP #### [facility] [address] [place] [address] Dr. Shemar Armas Erythrocyte distribution width (RBC) [Ratio] 13.7 % Normal 11.0-15.0 [facility] Comment on above: Performed By: #### B MP #### [facility] [address] [place] [address] Dr. Shemar Armas Hematocrit (Bld) [Volume fraction] 41.8 % Normal 36.0-48.0 [facility] Comment on above: Performed By: #### B MP #### [facility] [address] [place] [address] Dr. Shemar Armas Hemoglobin (Bld) [Mass/Vol] 13.9 g/dL Normal 12.0-16.0 [facility] Comment on above: Performed By: #### B MP #### [facility] [address] [place] [address] Dr. Shemar Armas IG # 0.03 10e3/ul Normal 0.00-0.03 [facility] Comment on above: Performed By: #### B MP #### [facility] [address] [place] [address] Dr. Shemar Armas IG % 0.3 % Normal 0.0-0.5 [facility] Comment on above: Performed By: #### B MP #### [facility] [address] [place] [address] Dr. Shemar Armas LYMPH # 1.8 103/ul Normal 1.2-3.8 [facility] Comment on above: Performed By: #### B MP #### [facility] [address] [place] [address] Dr. Shemar Armas Lymphocytes/100 WBC (Bld) 21.0 % Normal 20.5-60.0 [facility] Comment on above: Performed By: #### B MP #### [facility] [address] [place] [address] Dr. Shemar Armas MANUAL DIFF REQ NO Normal [facility] Comment on above: Performed By: #### B MP #### [facility] [address] [place] [address] Dr. Shemar Armas MCH (RBC) [Entitic mass] 28.8 pg Normal 26.7-34.0 [facility] Comment on above: Performed By: #### B MP #### [facility] [address] [place] [address] Dr. Shemar Armas MCHC (RBC) [Mass/Vol] 33.3 g/dL Normal 29.9-35.2 [facility] Comment on above: Performed By: #### B MP #### [facility] [address] [place] [address] Dr. Shemar Armas MCV (RBC) [Entitic vol] 86.7 fL Normal 81.0-99.0 [facility] Comment on above: Performed By: #### B MP #### [facility] [address] [place] [address] Dr. Shemar Armas MONO # 0.7 103/ul Normal 0.3-0.8 [facility] Comment on above: Performed By: #### B MP #### [facility] [address] [place] [address] Dr. Shemar Armas Monocytes/100 WBC (Bld) 7.9 % Normal 1.7-12.0 [facility] Comment on above: Performed By: #### B MP #### [facility] [address] [address] [address] Shemar Armas NEUT # 6.0 103/ul Normal 1.4-6.5 [facility] Comment on above: Performed By: #### B MP #### [facility] [address] [address] [address] Shemar Armas Neutrophils/100 WBC (Bld) 69.2 % Normal 43.0-75.0 [facility] Comment on above: Performed By: #### B MP #### [facility] [address] [place] [address] Dr. Shemar Armas Platelet mean volume (Bld) [Entitic vol] 9.7 fL Normal 9.5-13.5 [facility] Comment on above: Performed By: #### B MP #### [facility] [address] [place] [address] Dr. Shemar Armas PLT 322 103/ul Normal 150-450 [facility] Comment on above: Performed By: #### B MP #### [facility] [address] [place] [address] Dr. Shemar Armas RBC 4.82 106/ul Normal 4.20-5.40 [facility] Comment on above: Performed By: #### B MP #### [facility] [address] [place] [address] Dr. Shemar Armas WBC 8.7 103/ul Normal 4.0-11.0 [facility] Comment on above: Performed By: #### B MP #### [facility] [address] [place] [address] Dr. Shemar Armas GLYCOHEMOGLOBIN A1Con 2021 ADA RECOMMENDATION SEE BELOW Normal [facility] Comment on above: Result Comment: ADA RECOMMENDED LIMIT 4.0 - 6.0 ADA THERAPEUTIC TARGET < 7.0 ACTION SUGGESTED > 7.0 Performed By: #### P REG #### [facility] [address] [place] [address] Dr. Shemar Armas Glucose [Mass/Vol] 108 mg/dL Normal [facility] Comment on above: Performed By: #### P REG #### [facility] [address] [address] [address] Shemar Armas HbA1c (Bld) [Mass fraction] 5.4 % Normal 4.5-6.2 [facility] Comment on above: Performed By: #### P REG #### [facility] [address] [address] [address] Shemar Armas IRONon 04-26-2022 Iron [Mass/Vol] 55.0 ug/dL Normal 50.0-170.0 [facility] Comment on above: Performed By: #### I CYNDI #### [facility] [address] [address] [address] Shemar Armas LIPID PROFILEon 04-26-2022 CHOL-HDL RATIO NORM SEE BELOW Normal [facility] Comment on above: Result Comment: 3.3 - 4.4 LOW RISK 4.4 - 7.1 AVERAGE RISK 7.1 - 11.0 MODERATE RISK >11.0 HIGH RISK Performed By: #### P REG #### [facility] [address] [place] [address] Dr. Shemar Armas Cholesterol [Mass/Vol] 205 mg/dL Critically high <=200 [facility] Comment on above: Performed By: #### P REG #### [facility] [address] [place] [address] Dr. Shemar Armas Cholesterol in HDL [Mass/Vol] 57 mg/dL Normal 40-60 [facility] Comment on above: Performed By: #### P REG #### [facility] [address] [address] [address] Shemar Armas Cholesterol in LDL [Mass/Vol] 126.8 mg/dL Normal [facility] Comment on above: Performed By: #### P REG #### [facility] [address] [place] [address] Dr. Shemar Armas Cholesterol.total/Choles terol in HDL [Mass ratio] 3.6 {ratio} Normal [facility] Comment on above: Performed By: #### P REG #### [facility] [address] [address] [address] Shemar Armas HDL NORMAL > or = 60 mg/dl - LOW CARDIOVASCULAR RISK <40 mg/dl - HIGH CARDIOVASCULAR RISK Normal [facility] Comment on above: Performed By: #### P REG #### [facility] [address] [address] [address] Shemar Armas LDL CALC NORMAL SEE BELOW Normal [facility] Comment on above: Result Comment: <100 mg/dl OPTIMAL 100 - 129 mg/dl NEAR OR ABOVE OPTIMAL 130 - 159 mg/dl BORDERLINE HIGH 160 - 189 mg/dl HIGH >190 mg/dl VERY HIGH Performed By: #### P REG #### [facility] [address] [address] [address] Shemar Armas Triglyceride [Mass/Vol] 106 mg/dL Normal <=150 [facility] Comment on above: Performed By: #### P REG #### [facility] [address] [address] [address] Shemar Armas VLDL CALC 21.2 mg/dL Normal [facility] Comment on above: Performed By: #### P REG #### [facility] [address] [address] [address] Shemar Armas PROF 14(COMP METB)on 022 Albumin [Mass/Vol] 4.3 g/dL Normal 3.4-5.0 [facility] Comment on above: Performed By: #### T SH, CMP, LIPID #### [facility] [address] [address] [address] Shemar Armas Albumin/Globulin [Mass ratio] 1.2 {ratio} Normal [facility] Comment on above: Performed By: #### T SH, CMP, LIPID #### [facility] [address] [address] [address] Shemar Armas ALP [Catalytic activity/Vol] 62 U/L Normal 46-116 [facility] Comment on above: Performed By: #### T SH, CMP, LIPID #### [facility] [address] [address] [address] Shemar Armas ALT [Catalytic activity/Vol] 34 U/L Normal 14-59 [facility] Comment on above: Performed By: #### T SH, CMP, LIPID #### [facility] [address] [address] [address] Shemar Armas Anion gap [Moles/Vol] 13.7 mmol/L Normal [facility] Comment on above: Performed By: #### T SH, CMP, LIPID #### [facility] [address] [address] [address] Shemar Armas AST [Catalytic activity/Vol] 22 U/L Normal 15-37 [facility] Comment on above: Performed By: #### T SH, CMP, LIPID #### [facility] [address] [place] [address] Dr. Shemar Armas Bilirubin [Mass/Vol] 0.3 mg/dL Normal 0.2-1.0 [facility] Comment on above: Performed By: #### T SH, CMP, LIPID #### [facility] [address] [place] [address] Dr. Shemar Armas Calcium [Mass/Vol] 9.1 mg/dL Normal 8.5-10.1 [facility] Comment on above: Performed By: #### T SH, CMP, LIPID #### [facility] [address] [place] [address] Dr. Shemar Armas Chloride [Moles/Vol] 98 mmol/L Normal 98-107 [facility] Comment on above: Performed By: #### T SH, CMP, LIPID #### [facility] [address] [address] [address] Shemar Armas CO2 [Moles/Vol] 29.9 mmol/L Normal 21.0-32.0 [facility] Comment on above: Performed By: #### T SH, CMP, LIPID #### [facility] [address] [place] [address] Dr. Shemar Armas Creatinine [Mass/Vol] 1.27 mg/dL Critically high 0.55-1.02 [facility] Comment on above: Performed By: #### T SH, CMP, LIPID #### [facility] [address] [place] [address] Dr. Shemar Armsa EGFR-AF [place] 59 mL/min/1.73m2 Critically low >=60 [facility] Comment on above: Performed By: #### T SH, CMP, LIPID #### [facility] [address] [place] [address] Dr. Shemar Armas EGFR-NON AF [place]IZ[place] OF [place] 49 mL/min/1.73m2 Critically low >=60 [facility] Comment on above: Performed By: #### T SH, CMP, LIPID #### [facility] [address] [place] [address] Dr. Shemar Armas Globulin (S) [Mass/Vol] 3.6 g/dL Normal [facility] Comment on above: Performed By: #### T SH, CMP, LIPID #### [facility] [address] [place] [address] Dr. Shemar Armas Glucose [Mass/Vol] 92 mg/dL Normal 74-106 [facility] Comment on above: Performed By: #### T SH, CMP, LIPID #### [facility] [address] [place] [address] Dr. Shemar Armas Potassium [Moles/Vol] 3.6 mmol/L Normal 3.5-5.1 [facility] Comment on above: Performed By: #### T SH, CMP, LIPID #### [facility] [address] [place] [address] Dr. Shemar Armas Protein [Mass/Vol] 7.9 g/dL Normal 6.4-8.2 [facility] Comment on above: Performed By: #### T SH, CMP, LIPID #### [facility] [address] [place] [address] Dr. Shemar Armas Sodium [Moles/Vol] 138 mmol/L Normal 136-145 [facility] Comment on above: Performed By: #### T SH, CMP, LIPID #### [facility] [address] [place] [address] Dr. Shemar Armas Urea nitrogen [Mass/Vol] 16.0 mg/dL Normal 7.0-18.0 [facility] Comment on above: Performed By: #### T SH, CMP, LIPID #### [facility] [address] [address] [address] Shemar Armas Urea nitrogen/Creatinine [Mass ratio] 12.6 mg/mg Normal [facility] Comment on above: Performed By: #### T SH, CMP, LIPID #### [facility] [address] [address] [address] Shemar Armas TSHon 04-26-2022 TSH 3.031 uIU/mL Normal 0.358-3.740 [facility] Comment on above: Performed By: #### P REG #### [facility] [address] [address] [address] Shemar Armas Vital Signs Date Time Vital Sign Value Performing Clinician Facility 10-02-2022 16:00-0500 Body height 160.02 cm [facility] 10-02-2022 16:00-0500 Body mass index (BMI) [Ratio] 42.69 kg/m2 [facility] Other 10-02-2022 16:00-0500 Body weight 109.32 kg Bonnie [facility] [employer] Other [facility] Other 09-28-2022 15:55-0500 Diastolic blood pressure 60 mm[Hg] MD Donnell Brooke Work Phone: [facility] 09-28-2022 15:55-0500 Heart rate 76 /min MD Donnell Brooke Work Phone: [facility] 09-28-2022 15:55-0500 Respiratory rate 16 /min MD Donnell Brooke Work Phone: [facility] 09-28-2022 15:55-0500 SaO2% (BldA) [Mass fraction] 98 % MD Donnell Brooke Work Phone: [facility] 09-28-2022 15:55-0500 Systolic blood pressure 123 mm[Hg] MD Donnell Brooke Work Phone: [facility] 09-28-2022 14:33-0500 Body height 162.56 cm MD Donnell Brooke Work Phone: [facility] 09-28-2022 14:33-0500 Body mass index (BMI) [Ratio] 41.6 kg/m2 MD Donnell Brooke Work Phone: [facility] 09-28-2022 14:33-0500 Body weight 110 kg MD Donnell Brooke Work Phone: [facility] 09-28-2022 12:25-0500 Body temperature 98 [degF] MD Donnell Brooke Work Phone: [facility] 07-30-2022 15:29-0500 Blood Pressure Location Sanjay GEMMAL [facility] 07-30-2022 15:29-0500 Diastolic blood pressure 83 mm[Hg] Sanjay MENENDEZL [facility] 07-30-2022 15:29-0500 Heart rate 75 /min Sanjay NILL [facility] 07-30-2022 15:29-0500 Respiratory rate 16 /min Sanjay NILL [facility] 07-30-2022 15:29-0500 Systolic blood pressure 124 mm[Hg] Sanjay NILL [facility] Encounters Encounter Date Encounter Type Care Provider Facility Start: 06-12-2023 End: 06-12-2023 ambulatory Bonnie Jeffrey Other [facility] Other Start: 06-12-2023 Office outpatient vi sit 15 minutes [facility] Start: 03-20-2023 End: 03-20-2023 ambulatory Bonnie Jeffrey Other [facility] Other Start: 03-20-2023 Office outpatient vi sit 15 minutes Bonnie Calvey [facility] Start: 01-24-2023 End: 01-24-2023 ambulatory Bonnie Calvey Other [facility] Other Start: 01-24-2023 Office outpatient vi sit 15 minutes Bonnie Calvey [facility] Start: 12-11-2022 End: 12-11-2022 ambulatory Bonnie R Calvey Facility:[facility] Start: 11-13-2022 End: 11-13-2022 ambulatory Bonnie R Calvey Facility:[facility] Start: 11-13-2022 End: 11-13-2022 Patient encounter procedure MD Donnell Brooke Work Phone: [facility] Start: 11-13-2022 End: 11-13-2022 ambulatory MD Donnell Brooke Work Phone: [facility] Work Phone: Start: 11-13-2022 Postop follow up vis it related to original px Bonnie Calvey [facility] Start: 10-23-2022 End: 10-23-2022 ambulatory Bonnie Calvey Other [facility] Other Start: 10-23-2022 Postop follow up vis it related to original px Bonnie Calvey [facility] Start: 10-10-2022 End: 10-11-[address] DONNELL BROOKE . Facility: Start: 10-09-2022 End: 10-09-2022 ambulatory Bonnie Calvey Other [facility] Other Start: 10-09-2022 Postop follow up vis it related to original px Bonnie Calvey [facility] Start: 10-02-2022 End: 10-02-2022 ambulatory Bonnie Calvey Other [facility] Other Start: 10-02-2022 Postop follow up vis it related to original px Bonnie Jeffrey [facility] Start: 10-02-2022 Telephone encounter Bonnie Jeffrey [facility] Start: 09-28-2022 End: 09-28-2022 ambulatory Bonnie Jeffrey Facility:[facility] Start: 09-28-2022 End: 09-28-2022 Admission to same day surgery center MD Donnell Brooke Work Phone: [facility] [place] Start: 09-26-2022 End: 09-26-2022 ambulatory Bonnie Edwige Shreyayaniv Facility:[facility] Start: 09-26-2022 End: 09-26-2022 ambulatory MD Donnell Brooke Work Phone: [facility] Work Phone: Start: 09-26-2022 End: 09-26-2022 Patient encounter procedure MD Donnell Brooke Work Phone: [facility] Work Phone: Start: 09-25-2022 End: 09-25-[address] DONNELL BROOKE . Facility: Start: 09-21-2022 ambulatory Sanjay ZUÑIGA Facility :[facility] Start: 09-14-2022 Encounter for preprocedural laboratory examination DR SANJAY ZUÑIGA . [facility] Start: 09-12-2022 End: 09-13-2022 ambulatory Sanjay ZUÑIGA Facility:[id number] Start: 09-11-2022 End: 10-06-[address] DONNELL BROOKE . Facility: Start: 09-07-2022 End: 09-08-[address] DONNELL BROOKE . Facility: Start: 09-07-2022 End: 09-08-2022 Encounter for preprocedural laboratory examination DR DONNELL BROOKE . Facility: Start: 07-30-2022 End: 07-31-2022 ambulatory Donnell Brooke PROVIDER Facility: [facility] Start: 07-30-2022 End: 07-30-2022 Patient encounter procedure Sanjay ZUÑIGA [facility] [place] Start: 07-10-2022 ambulatory Donnell Brooke PROVIDER Facility:[facility] Start: 07-09-2022 End: 07-10-[address] [...] abnormal findings DR DONNELL BROOKE . [facility] Start: 04-26-2022 End: 04-27-[address] [...] Date Care Activity Detail Author Start: 09-28-2022 [facility] Start: 09-28-2022 [facility] Patient referral [facility] Work Phone: Immunizations Immunization Date Immunization Notes Care Provider Josue cheema NEGATED: Highlighted row has not occurred!07-30-2022 influenza virus vaccine, unspecified formulation Sanjay ZUÑIGA [facility] [place] Payers Date Payer Category Payer Self-pay 2022 Unknown [id number] 1990 Unknown [id number] 2.16.8 40.1.392028.3.579.2.727 1990 Unknown [id number] 2.16.8 40.1.951167.3.579.2.727 1990 Unknown [id number] 2.16.8 40.1.426807.3.579.2.727 1990 Unknown [id number] 2.16.8 40.1.898454.3.579.2.727 1990 Unknown [id number] 2.16.8 40.1.195678.3.579.2.727 1990 Unknown [id number] 2.16.84 0.1.317440.3.579.2.593 1990 Unknown [id number] 2.16.84 0.1.510083.3.579.2.593 1990 Unknown [id number] 2.16.84 0.1.527984.3.579.2.593 1990 Unknown [id number] 2.16.84 0.1.613888.3.579.2.593 1990 Unknown [id number] 2.16.84 0.1.980578.3.579.2.593 1990 Unknown [id number] 2.16.84 0.1.136992.3.579.2.593 1990 Unknown [id number] 2.16.84 0.1.235223.3.579.2.593 1990 Unknown [id number] 2.16.84 0.1.608989.3.579.2.593 1990 Unknown [id number] 2.16.84 0.1.086836.3.579.2.593 1990 Unknown [id number] 2.16.84 0.1.212196.3.579.2.593 1990 Unknown [id number] 2.16.84 0.1.011777.3.579.2.593 1990 Unknown [id number] 2.16.84 0.1.512845.3.579.2.593 1959 Unknown [id number] [id number] Unknown [id number] 2.16.8 40.1.679591.3.579.2.531 Unknown [id number] 2.16.8 40.1.856930.3.579.2.531 Unknown [id number] 2.16.8 40.1.649769.3.579.2.531 Unknown [id number] 2.16.8 40.1.764315.3.579.2.531 Social History Date Type Detail Facility Start: 07-30-2022 End: 09-28-2022 Tobacco smoking status Never smoked tobacco (finding) [facility] Tobacco smoking status Never [facility] Sex Assigned At Female [facility] Start: 1990 Sex Assigned At Female [facility] Goals Date Patient Goal Desired Activity /State Functional Status Date Assessment Result Facility 07-30-2022 Functional Status N/A [facility] Clinical Notes 08-20-2022 to 06-12-2023 Note Date [...] Other specified postprocedural states (ICD-10 - Z98.890) Reading Room Other 07-26-2023 Evaluation note* Encounter Date Diagnosis Assessment Notes Treatment Notes Treatment Clinical Notes Feb, Crushing injury of right thumb, subsequent encounter (ICD-10 - S67.01XD) Patient instructed to keep cuticle moisturized and pushed back. Activity as tolerated Feb, Injury of nail bed o f finger of right hand, subsequent encounter (ICD-10 - S69.91XD) Feb, Other specified postprocedural states (ICD-10 - Z98.890) [facility] Other 06-01-2023 Evaluation note* Encounter Date Diagnosis [...] Other specified postprocedural states (ICD-10 - Z98.890) [facility] Other 03-21-2023 Evaluation note* Encounter Date Diagnosis [...] Other specified postprocedural states (ICD-10 - Z98.890) [facility] Other 02-28-2023 Evaluation note* Encounter Date Diagnosis Assessment Notes Treatment Notes Treatment Clinical Notes Sep, Crushing injury of right thumb, initial encounter (ICD-10 - S67.01XA) Patient instructed on the use of moisturizer for the nailbed. Return to work note given Sep, Injury of nail bed of right thumb, initial encounter (ICD-10 - S69.91XA) [facility] Other 02-14-2023 Evaluation note* Encounter Date Diagnosis Assessment Notes Treatment Notes Treatment Clinical Notes Sep, Crushing injury of right thumb, initial encounter (ICD-10 - S67.01XA) Patient instructed to continue with current wound care and use of stax splint. Continue off work Sep, Injury of nail bed of right thumb, initial encounter (ICD-10 - S69.91XA) Reading [facility] Other 02-07-2023 Evaluation note* Encounter Date Diagnosis Assessment Notes Treatment Notes Treatment Clinical Notes Sep, Crushing injury of right thumb, initial encounter (ICD-10 - S67.01XA) Patient instructed to continue daily soaking. Rx given for Zofran due to vomitting from narcotics Sep, Injury of nail bed of right thumb, initial encounter (ICD-10 - S69.91XA) [facility] Other 01-31-2023 NotePROCEDURE: XR HAND RT MIN [...] Electronically authenticated by: MYAH LEAL Date: 2022-09-25 07:51[facility]01-18-2023 NoteOPERATIVE NOTE OPERATION DATE: 09/12/2022 PREOPERATIVE DIAGNOSIS: [...] in good condition. CC: Patient's family physicianThe [facility]ern[facility] [id number] NoteChief Complaint consultation for RUQ pain HPI [...] morphine (Chest pain) Socia (more content not included)...[facility]: Result Comment: Electronically Signed By: SOL ESPINOZA, Sanjay Paredes\Date and Time Signed: 08/20/22 10:27 ESTEvaluation + Plan note No data available for this section [facility] [place] Evaluation noteNo assessment information available [facility] Work Phone: Evaluation noteNo InformationNortLehigh Valley Hospital [facility] hoccer Other Hisqcyo general Narrative - Reported* Type Description Date Medical History depression Medical History bradycardia Medical History tachycardia Surgical History tonsillectomy Surgical History pylenol cysts Surgical History wisdom teeth Surgical History plantar fasciitis, tarsal tunne l x 2 right foot [employer] [facility] hoccer Other [employer] general Narrative - Reported* Type Description Date Medical History depression Medical History bradycardia Medical History tachycardia Surgical History tonsillectomy Surgical History pylenol cysts Surgical History wisdom teeth Surgical History plantar fasciitis, tarsal tunne l x 2 right foot Surgical History right thumb I & D 09/28/2022 [facility] hoccer Other Hospital Discharge instructions No data available for this section [facility] [place] Progress note No data available for this section [facility] [place] Chief Complaint and Reason for Visit Chief [...] section and content) DATE CREATED AUTHOR 09/29/2022 Brinnon Gordon [facility] DATE CREATED AUTHOR AUTHOR'S ORGANIZ ATION 12/01[facility]2022 [facility] DATE CREATED AUTHOR AUTHOR'S ORGANIZ ATION 12/15/2022 [facility] REASON FOR VISIT (unrecogniz ed section [...] BE BASED ON THE PRIMARY CLINICAL RECORDS. [employer] provides no warranty or guarantee of the accuracy or completeness of information in this document.
[2024-04-14 16:42] LABS: Alanine Aminotransferase 26 U/L (14-59); Albumin Globulin Ratio 1.1; Albumin Level 4.1 g/dL (3.4-5.0); Alkaline Phosphatase 88 U/L (46-116); Anion Gap 12.9; Aspartate Amino Transferase 17 U/L (15-37); BUN Creatinine Ratio 13.7; Bilirubin Total 0.3 mg/dL (0.2-1.0); Calcium 8.8 mg/dL (8.5-10.1); Carbon Dioxide 30.3 mmol/L (21.0-32.0); Chloride 99 mmol/L (98-107); Estimated GFR (African America >60 (>=60); Estimated GFR (Non-African Ame 53 (>=60); Globulin 3.6 g/dL; Glucose 106 mg/dL (74-106); Magnesium 1.8 mg/dL (1.8-2.4); Potassium 3.2 mmol/L (3.5-5.1); Sodium 139 mmol/L (136-145); Total Protein 7.7 g/dL (6.4-8.2)
== END 2024-04-14 16:09 | disposition home or self-care (01) ==
LOC: LAB 16:08
PROVIDERS: PCP Family Medicine; Visit Provider Family Medicine
DX: M75.40 Impingement syndrome of unspecified shoulder (principal); R25.1 Tremor, unspecified
CPT/HCPCS: 36415; 80053; 83735

== ENCOUNTER 2024-04-20 08:36 | Outpatient (OUT) | payer OTHER, SELFPAY ==
--- NOTE | 2024-04-20 08:35 | CA_ITS ---
Patient Name: JAREK FIELD MR#: [id number] : 1990 Exam Date: 04/20/2024 Ordering Doctor: DR Felipe Brooke . ECHOCARDIOGRAM REPORT PROCEDURE: CA ECHO DOPPLER COMPLETE INDICATIONS: Orthostatic hypertension, Hypertension, paresthesia COMPARISON: None. DESCRIPTION: COMPLETE ECHOCARDIOGRAM Real-time transthoracic echocardiography with 2D, M-mode, spectral and color flow Doppler performed. QUALITY: Technical quality was good. LEFT VENTRICLE: Normal chamber size. Mild concentric left ventricular hypertrophy. LV EF: Global left ventricular systolic function is normal. Calculated left ventricular ejection fraction is 57%. No significant wall motion abnormalities DIASTOLIC: Normal diastolic function. ATRIAL SEPTUM: Inadequately seen LEFT ATRIUM: Normal chamber size. RIGHT ATRIUM: Normal chamber size RIGHT VENTRICLE: Normal chamber size. Normal right ventricular systolic function. TRICUSPID VALVE: Normal mobility and thickness. Trivial regurgitation. Mildly elevated right ventricular systolic pressure; RVSP 38mmHg MITRAL VALVE: Normal mobility and thickness. No evidence of mitral valve stenosis. There is no mitral annular calcification. Mild mitral regurgitation. AORTIC VALVE: Normal trileaflet appearance. No visible sclerosis. Normal leaflet mobility. No evidence of aortic valve stenosis. Trivial aortic regurgitation. AORTIC ROOT: Normal diameter and appearance. PULMONIC VALVE: Normal thickness and mobility. No stenosis. Trivial regurgitation. PERICARDIUM: No evidence of pericardial effusion. IVC: Collapses with inspirations. Normal size. CONCLUSION: 1. Global left ventricular systolic function is normal; visually estimated ejection fraction is 55 to 60% 2. Normal right ventricular size and systolic function 3. Normal diastolic function 4. Mild left ventricular hypertrophy 5. Mildly elevated right ventricular systolic pressure; RVSP 38 mmHg 6. Mild mitral regurgitation Adult Echocardiography Procedure Report Left Ventricle LVEDD (3.7 - 5.6 cm): 5.13 cm LVESD (2.2 - 4.0 cm): 3.13 cm LVIVS thickness (0.6 - 1.2 cm): 1.08 cm LVPW thickness (0.5 - 1.0 cm): 1.12 cm e': 0.16 m/s E - e': 5.12 LVOT Max Gradient: 2.54 mm[Hg] LVOT Area (cm2): 0.80 m/s Peak Velocity (LVOT): 0.80 m/s Mean Velocity (LVOT): 0.52 m/s LVOT Diameter 2.07 cm Left Ventricular Ejection Fraction: 57.07 % Left Atrium LA Volume Index (2D A2C): 26.39 ml/m2 Left Atrium Systolic Dimension: 3.84 cm Mitral Valve MV E to A Ratio: 1.96 Mitral Valve A-Wave Peak Velocity: 0.43 m/s Mitral Valve E-Wave Peak Velocity: 0.84 m/s Right Ventricle RV Internal Diastolic Dimension: 3.27 cm Aorta AO Root Diam: 3.05 cm Ascending Ao Diam: 2.46 cm Aortic Valve AoV Area (Peak Luís): 2.95 cm2, 2.95 cm2 AoV Area (VTI): 2.56 cm2, 2.56 cm2 Peak Velocity(Antegrade Flow): 0.91 m/s Peak Gradient(Antegrade Flow): 3.32 mm[Hg] Mean Velocity(Antegrade Flow): 0.65 m/s Mean Gradient(Antegrade Flow): 1.91 mm[Hg] Velocity Time Integral: 21.58 cm Tricuspid Valve Peak Velocity (Regurgitant Flow): 2.40 m/s, 2.98 m/s Pulmonic Valve Mean Gradient: 2.51 mm[Hg], 1.96 mm[Hg] Mean Velocity: 0.74 m/s, 0.65 m/s Peak Velocity: 1.01 m/s Peak Gradient: 4.74 mm[Hg], 3.47 mm[Hg] Right Atrium Right Atrium Systolic Pressure: 35.91 ml, 35.91 ml Dictated by: Gabriel Leong M.D. on 04/20/2024 at 14:08 Approved by: Gabriel Leong M.D. on 04/20/2024 at 14:12
== END 2024-04-20 08:37 | disposition home or self-care (01) ==
LOC: CARD 08:36
PROVIDERS: PCP Family Medicine; Visit Provider Family Medicine
DX: E83.42 Hypomagnesemia (principal); I95.1 Orthostatic hypotension; I10 Essential (primary) hypertension; R20.2 Paresthesia of skin
CPT/HCPCS: 93306

== ENCOUNTER 2024-04-20 09:17 | Outpatient (OUT) | payer OTHER, SELFPAY ==
--- OUTSIDE RECORDS SUMMARY | 2024-04-20 09:36 | XMS_ITS | CCD ---
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 Name Role Phone Donnell Brooke Primary Care Physician MD Bonnie Jeffrey Attending Provider [phone] MD Donnell Brooke Primary Care Provider [phone] Edwardo PROVIDERDonnell Referring Unavailabl e NILL, Sanjay Gibbons Attending Unavailable NILL, Sanjay Gibbons Attending Unavailable NILL, Sanjay Gibbons Attending Unavailable NILL, Sanjay Gibbons Attending Unavailable Hoy PROVIDERDonnell Referring Unavailabl e NILL, Sanjay Gibbons Attending Unavailable Bonnie Jeffrey Unavailable MD Bonnie Jeffrey Attending Provider [phone] MD Donnell Brooke Primary Care Provider [phone] MARTHAY ., DR JACOBO Primary Care [...] pain (finding) [facility] [place] (14 sources) SILVER; Translations: [SILVER] Allergy to substance 4 INFECTION, Edema, silver wound pack reversed healing [facility] (4 sources) irbesartan; Translations: [irbesartan] Drug Allergy 3 Unknown Reaction [facility] (1 source) MORPHINE SUBSTITUTE; Translations: [MORPHINE SUBSTITUTE] Propensity to adverse reactions (disorder) [facility] (1 source) Morphine Drug Allergy [facility] Medications Current Medications Medication Drug Class(es) Dates Sig (Normalized) Sig (Original) acebutolol 200 mg oral capsule (11 sources) beta-Adrenergic Ana Start: 09-26-2022 take 200 mg by mouth twice daily Acebutolol Active 200 MG PO Twice daily September 26, 2022 1:00am Start: 07-27-2022 take [address] [facility] twice daily acebutolol 200 mg Cap 200 mg = 1 cap(s), Oral, BID, Refills(s) 0 Start Date: 07/27/22 Status: Ordered take [address] [facility] every twenty-four hours Acebutolol HCl 200 MG [...] by mouth once daily in the morning Triamterene-[place] chlorothiazid Active 1 TAB PO Every morning September 26, 2022 1:00am levonorgestrel 0.053899 mg/hr intrauterine system (2 sources) Progestin, Progestin-containing [...] Start: 07-27-2022 take [address] [facility] once daily oxaprozin 600 mg Tab 1,200 [...] Start: 07-27-2022 take [address] 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] Onset: 09-18-2022 Episodic Other [...] 3V*on 023 XR hand RT min 3V* [facility] Main [address] [address] XRay Report Signed Patient: Veronica Ross MR#: [id number] : 1990 Acct:[id number] Age/Sex: 32 / F ADM Date: 12/11/22 Loc: [facility] Room: Type: REG CLI Attending Dr: Bonnie [...] Dong Jr., DSandeeOSandee12/11/2022 4:55 PM Dictation Location: [place] [address] Transcribed By: [facility] 12/11/22 165 Dictated By: Willie Dong Jr, DO 12/11/221652 Signed By: 12/11/22 1655 Normal [facility] XR hand RT min 3V*on 023 XR hand RT min 3V* [facility] Main [address] [address] XRay Report Signed Patient: Veronica Ross MR#: [id number] : 1990 Acct:[id number] Age/Sex: 32 / F ADM Date: 11/13/22 Loc: [facility] Room: Type: REG CLI Attending Dr: Bonnie [...] Kalpesh Murry M.D.11/13/2022 5:23 PM Dictation Location: [place] [address] Transcribed By: [facility] 11/13/22 172 Dictated By: Kalpesh Murry II, MD 11/13/22 172 Signed By: 11/13/22 172 Normal [facility] XR hand RT min 3V* [facility] [employer] Other XR hand RT min 3V* [facility] [employer] Other XR hand RT min 3V* [address] [place] [address] [employer] Other XR hand RT min 3V* [place] [address] [facility] [employer] Other XR hand RT min 3V* XRay Report [employer] Other XR hand RT min 3V* Signed [employer] Other XR hand RT min 3V* Patient: Veronica Ross MR#: [id number] [employer] Other XR hand RT min 3V* 7067 [employer] Other XR hand RT min 3V* : 1990 Acct:[id number] [employer] Other XR hand RT min 3V* Age/Sex: 32 / F ADM Date: 11/13/22 [employer] Other XR hand RT min 3V* Loc: [facility]: [facility] [employer] Other XR hand RT min 3V* Attending Dr: Bonnie Jeffrey MD [employer] Other XR hand RT min 3V* Copies to: Bonnie Jeffrey MD [employer] Other XR hand RT min 3V* Ordering Provider: Bonnie Jeffrey MD [employer] Other XR hand RT min 3V* Date of Service: 11/13/22 [employer] Other XR hand RT min 3V* XR/XR hand RT min 3V*: Crushing injury of right thumb, subsequent [employer] Other XR hand RT min 3V* encounter [employer] Other XR hand RT min 3V* XR hand RT min 3V* 11/13/2022 3:49 PM [employer] Other XR hand RT min 3V* SIGNS AND SYMPTOMS: Status post incision and debridement of open fracture of right thumb, follow-up [employer] Other XR hand RT min 3V* PROTOCOL: Frontal, lateral, and oblique radiographs of the right hand [employer] Other XR hand RT min 3V* COMPARISON: 09/25/2022 [employer] Other XR hand RT min 3V* FINDINGS: [employer] Other XR hand RT min 3V* Healing/healed fracture of the distal phalanx of the right thumb. There is no change in alignment. [employer] Other XR hand RT min 3V* The joint spaces are preserved. No significant soft tissue swelling. [employer] Other XR hand RT min 3V* XR/XR hand RT min 3V* [employer] Other XR hand RT min 3V* IMPRESSION: [employer] Other XR hand RT min 3V* Impression dictated by: Kalpesh Murry M.D.11/13/2022 5:23 PM [employer] Other XR hand RT min 3V* Dictation Location: [place] [address] [employer] [facility] [employer] Other XR hand RT min 3V* Transcribed By: PWS 11/13/[address] [place] [address] [employer] Other XR hand RT min 3V* Dictated By: Kalpesh Murry II, MD 11/13/[address] [place] [address] [employer] Other XR hand RT min 3V* Signed By: [employer] Other XR hand RT min 3V* 11/13/[address] [place] [address] [employer] Other PROF CHEM 8 (BAS METB)on Anion gap [Moles/Vol] 11.0 mmol/L Normal [facility] Comment on above: Performed By: #### B MP #### [facility] [address] [place] [address] Dr. Shemar Armas Calcium [Mass/Vol] 8.8 mg/dL Normal 8.5-10.1 [facility] Comment on above: Performed By: #### B MP #### [facility] [address] [place] [address] [address] Shemar Armas Chloride [Moles/Vol] 100 mmol/L Normal 98-107 [facility] [place] [facility] Comment on above: Performed By: #### B MP #### [facility] [address] [place] [address] Dr. Shemar Armas CO2 [Moles/Vol] 31.5 mmol/L Normal 21.0-32.0 [facility] Comment on above: Performed By: #### B MP #### [facility] [address] [place] [address] [address] Shemar Armas Creatinine [Mass/Vol] 1.18 mg/dL Critically high 0.55-1.02 [facility] [place] [facility] Comment on above: Performed By: #### B MP #### [facility] [address] [place] [address] [address] Shemar Armas EGFR-AF WELSH >60 Normal >=60 [facility] Comment on above: Performed By: #### B MP #### [facility] [address] [place] [address] [address] Shemar Armas EGFR-NON AF WELSH 53 mL/min/1.73m2 Critically low >=60 [facility] [place] [facility] Comment on above: Performed By: #### B MP #### [facility] [address] [place] [address] [address] Shemar Armas Glucose [Mass/Vol] 89 mg/dL Normal 74-106 [facility] Comment on above: Performed By: #### B MP #### [facility] [address] [place] [address] [address] Shemar Armas Potassium [Moles/Vol] 3.5 mmol/L Normal 3.5-5.1 [facility] Comment on above: Performed By: #### B MP #### [facility] [address] [place] [address] [address] Shemar Armas Sodium [Moles/Vol] 139 mmol/L Normal 136-145 [facility] Comment on above: Performed By: #### B MP #### [facility] [address] [place] [address] [address] Shemar Armas Urea nitrogen [Mass/Vol] 11.0 mg/dL Normal 7.0-18.0 [facility] [place] [facility] Comment on above: Performed By: #### B MP #### [facility] [address] [place] [address] [address] Shemar Armas Urea nitrogen/Creatinine [Mass ratio] 9.3 mg/mg Normal [facility] [place] [facility] Comment on above: Performed By: #### B MP #### [facility] [address] [place] [address] [address] Shemar Armas HCG ( test) Aiden benjamin Ql (U)Ordered By: THOM DUONG on 09-28-2022 HCG ( test) Ql (U) Negative [facility] HCG,Urineon 09-28-2022 Beta HCG ( test) Ql (U) Negative Normal [facility] Comment on above: Result Comment: PERF ORMED BY: [place] [address] PATHOLOGIST COAL CUTTING MACHINE OPERATOR KWABENA MELVIN M.D. Performed By: #### U HCG #### [facility] [address] [place] [address] [place] Albumin [Mass/volume] in Ser um or PlasmaOrdered By: Bonnie Jeffrey on 09-26-2022 Albumin [Mass/Vol] 4.0 g/dL 3.2-5.5 [facility] Basophils Auto (Bld) [#/Vol] Ordered By: Bonnie Jeffrey on 09-26-2022 Basophils (Bld) [#/Vol] 0.1 10*3/uL 0.0-0.2 [facility] Basophils/100 WBC Auto (Bld) Ordered By: Bonnie Jeffrey on 09-26-2022 Basophils/100 WBC (Bld) 1.2 % . [facility] Complete Blood Count Auto Di ffon 09-26-2022 Basophils (Bld) [#/Vol] 0.1 10*3/uL Normal 0.0-0.2 [facility] Comment on above: Result Comment: PERF ORMED BY: [place] [address] PATHOLOGIST COAL CUTTING MACHINE OPERATOR KWABENA MELVIN M.D. Performed By: #### C BC, CMP #### [facility] [address] [place] [address] [place] Basophils/100 WBC (Bld) 1.2 % Normal . [facility] Comment on above: Performed By: #### C BC, CMP #### [facility] [address] [place] [address] [place] Eosinophils (Bld) [#/Vol] 0.1 10*3/uL Normal 0.0-0.45 [facility] Comment on above: Performed By: #### C BC, CMP #### [facility] [address] [place] [address] [place] Eosinophils/100 WBC (Bld) 0.9 % Normal . [facility] Comment on above: Performed By: #### C BC, CMP #### [facility] [address] Erythrocyte distribution width (RBC) [Ratio] 13.6 % Normal 11.9-15.3 [facility] Comment on above: Performed By: #### C BC, CMP #### [facility] [address] Hematocrit (Bld) [Volume fraction] 40.2 % Normal 34.0-46.4 [facility] Comment on above: Performed By: #### C BC, CMP #### [facility] [address] Hemoglobin (Bld) [Mass/Vol] 13.3 g/dL Normal 11.8-15.4 [facility] Comment on above: Performed By: #### C BC, CMP #### [facility] [address] Lymphocytes (Bld) [#/Vol] 1.7 10*3/uL Normal 1.00-4.8 [facility] Comment on above: Performed By: #### C BC, CMP #### [facility] [address] [place] [address] [place] Lymphocytes/100 WBC (Bld) 18.1 % Normal . [facility] Comment on above: Performed By: #### C BC, CMP #### [facility] [address] [place] [address] [place] MCH (RBC) [Entitic mass] 28.8 pg Normal 24.7-34.3 [facility] Comment on above: Performed By: #### C BC, CMP #### [facility] [address] MCV (RBC) [Entitic vol] 87.1 fL Normal 80-100 [facility] Comment on above: Performed By: #### C BC, CMP #### [facility] [address] [place] [id number] [place] Mean Corpuscular HGB Conc 33.0 g/dL Normal 32.0-35.0 [facility] Comment on above: Performed By: #### C BC, CMP #### [facility] [address] [place] [address] [place] Monocytes (Bld) [#/Vol] 0.5 10*3/uL Normal 0.0-0.8 [facility] Comment on above: Performed By: #### C BC, CMP #### [facility] [address] [place] [address] [place] Monocytes/100 WBC (Bld) 5.8 % Normal . [facility] Comment on above: Performed By: #### C BC, CMP #### [facility] [address] [place] [address] [place] Neutrophils (Bld) [#/Vol] 7.0 10*3/uL Normal 1.8-7.7 [facility] Comment on above: Performed By: #### C BC, CMP #### [facility] [address] [place] [id number] [place] Neutrophils/100 WBC (Bld) 74.0 % Normal . [facility] Comment on above: Performed By: #### C BC, CMP #### [facility] [address] [place] [id number] [place] NRBC% 0.0 /100{WBC} Normal 0-0.5 [facility] Comment on above: Performed By: #### C BC, CMP #### [facility] [address] [place] [phone] [place] Platelet mean volume (Bld) [Entitic vol] 7.8 fL Normal 6.3-10.7 [facility] Comment on above: Performed By: #### C BC, CMP #### [facility] [address] [place] [phone] [place] Platelets (Bld) [#/Vol] 335 10*3/uL Normal 150-450 [facility] Comment on above: Performed By: #### C BC, CMP #### [address] RBC (Bld) [#/Vol] 4.62 10*6/uL Normal 3.60-5.00 [facility] Comment on above: Performed By: #### C BC, CMP #### [address] WBC (Bld) [#/Vol] 9.4 10*3/uL Normal 3.8-11.6 [facility] Comment on above: Performed By: #### C BC, CMP #### [address] Comprehensive Metabolic Pane [place] 09-26-2022 Albumin [Mass/Vol] 4.0 g/dL Normal 3.2-5.5 [facility] Comment on above: Performed By: #### C BC, CMP #### [address] Albumin/Globulin [Mass ratio] 1.4 {ratio} Normal [facility] Comment on above: Performed By: #### C BC, CMP #### [address] ALP [Catalytic activity/Vol] 45 U/L Normal 32-92 [facility] Comment on above: Result Comment: PERF ORMED BY: [place] [address] PATHOLOGIST COAL CUTTING MACHINE OPERATOR KWABENA MELVIN M.D. Performed By: #### C BC, CMP #### [address] ALT [Catalytic activity/Vol] 19 U/L Normal 10-60 [facility] Comment on above: Performed By: #### C BC, CMP #### [address] Anion gap [Moles/Vol] 13.8 mmol/L Normal 6.0-15.0 [facility] Comment on above: Performed By: #### C BC, CMP #### [address] [place] [address] [place] AST [Catalytic activity/Vol] 17 U/L Normal 10-42 [facility] Comment on above: Performed By: #### C BC, CMP #### [facility] [address] Bilirubin [Mass/Vol] 0.5 mg/dL Normal 0.3-1.2 [facility] Comment on above: Performed By: #### C BC, CMP #### [facility] [address] Calcium [Mass/Vol] 8.9 mg/dL Normal 8.2-10.2 [facility] Comment on above: Performed By: #### C BC, CMP #### [address] Chloride [Moles/Vol] 100 mmol/L Normal 95-114 [facility] Comment on above: Performed By: #### C BC, CMP #### [facility] [address] CO2 [Moles/Vol] 23.7 mmol/L Normal 22.0-30.0 [facility] Comment on above: Performed By: #### C BC, CMP #### [facility] [address] Creatinine [Mass/Vol] 1.82 mg/dL High 0.44-1.03 [facility] [place] [facility] Comment on above: Performed By: #### C BC, CMP #### [facility] [address] Estimated GFR ( Perri 39 [facility] Comment on above: Result Comment: GFR estimated reference range: According to KDOQI guidelines, <60 ml/min/1.73m2 is sufficient to diagnose a patient with chronic kidney disease. Performed By: #### C BC, CMP #### [place] [address] [place] Estimated GFR (Non- Am 32 [facility] Comment on above: Performed By: #### C BC, CMP #### [place] [id number] [place] Globulin (S) [Mass/Vol] 2.8 g/dL Normal [facility] Comment on above: Performed By: #### C BC, CMP #### [facility] [address] Glucose [Mass/Vol] 86 mg/dL Normal 70-100 [facility] Comment on above: Result Comment: [facility] Glucose Reference Range is dependent on time and content of last meal. Glucose of more than 200 mg/dL in a nonstressed, ambulatory subject supports the diagnosis of Diabetes Mellitus. ADA recommended reference range Performed By: #### C BC, CMP #### [facility] [address] Potassium [Moles/Vol] 3.5 mmol/L Normal 3.5-5.1 [facility] [place] [facility] Comment on above: Performed By: #### C BC, CMP #### [address] Protein [Mass/Vol] 6.8 g/dL Normal 6.1-7.9 [facility] Comment on above: Performed By: #### C BC, CMP #### [address] Sodium [Moles/Vol] 134 mmol/L Low 136-146 [facility] Comment on above: Performed By: #### C BC, CMP #### [address] Urea nitrogen [Mass/Vol] 25 mg/dL High 9-23 [facility] Comment on above: Performed By: #### C BC, CMP #### [place] [address] [place] Creatinine and Glomerular fi ltration rate.predicted panel (S/P/Bld)Ordered By: Bonnie Jeffrey on 09-26-2022 Creatinine [Mass/Vol] 1.82 mg/dL 0.44-1.03 [facility] [place] [facility] Eosinophils Auto (Bld) [#/Vo l]Ordered By: Bonnie Jeffrey on 09-26-2022 Eosinophils (Bld) [#/Vol] 0.1 10*3/uL 0.0-0.45 [facility] Eosinophils/100 WBC Auto (Bl d)Ordered By: Bonnie Jeffrey on 09-26-2022 Eosinophils/100 WBC (Bld) 0.9 % . [facility] Erythrocyte distribution wid th Auto (RBC) [Ratio]Ordered By: Bonnie Jeffrey on 09-26-2022 Erythrocyte distribution width (RBC) [Ratio] 13.6 % 11.9-15.3 [facility] Estimated glomerular filtrat ion rate (GFR) non- AmericanOrdered By: Bonnie Jeffrey on 09-26-2022 GFR/1.73 sq M.predicted among non-blacks MDRD (S/P/Bld) [Vol rate/Area] 32 mL/Min [facility] Globulin Calc (S) [Mass/Vol] Ordered By: Bonnie Jeffrey on 09-26-2022 Globulin (S) [Mass/Vol] 2.8 g/dL [facility] Hematocrit Auto (Bld) [Volum e fraction]Ordered By: Bonnie Jeffrey on 09-26-2022 Hematocrit (Bld) [Volume fraction] 40.2 % 34.0-46.4 [facility] Hemoglobin [Mass/volume] in BloodOrdered By: Bonnie Jeffrey on 09-26-2022 Hemoglobin (Bld) [Mass/Vol] 13.3 g/dL 11.8-15.4 [facility] Leukocytes [#/volume] correc franco for nucleated erythrocytes in Blood by Automated counOrdered By: Bonnie Jeffrey on 09-26-2022 WBC corrected for nucl RBC Auto (Bld) [#/Vol] 9.4 10*3/uL 3.8-11.6 [facility] Lymphocytes Auto (Bld) [#/Vo l]Ordered By: Bonnie Jeffrey on 09-26-2022 Lymphocytes (Bld) [#/Vol] 1.7 10*3/uL 1.00-4.8 [facility] Lymphocytes/100 WBC Auto (Bl d)Ordered By: Bonnie Jeffrey on 09-26-2022 Lymphocytes/100 WBC (Bld) 18.1 % . [facility] MCH Auto (RBC) [Entitic mass ]Ordered By: Bonnie Jeffrey on 09-26-2022 MCH (RBC) [Entitic mass] 28.8 pg 24.7-34.3 [facility] MCHC Auto (RBC) [Mass/Vol]Or dered By: Bonnie Jeffrey on 09-26-2022 MCHC (RBC) [Mass/Vol] 33.0 g/dL 32.0-35.[address] [facility] MCV Auto (RBC) [Entitic vol] Ordered By: Bonnie Jeffrey on 09-26-2022 MCV (RBC) [Entitic vol] 87.1 fL 80-100 [facility] Monocytes Auto (Bld) [#/Vol] Ordered By: Bonnie Jeffrey on 09-26-2022 Monocytes (Bld) [#/Vol] 0.5 10*3/uL 0.0-0.8 [facility] Monocytes/100 WBC Auto (Bld) Ordered By: Bonnie Jeffrey on 09-26-2022 Monocytes/100 WBC (Bld) 5.8 % . [facility] Neutrophils Auto (Bld) [#/Vo l]Ordered By: Bonnie Jeffrey on 09-26-2022 Neutrophils (Bld) [#/Vol] 7.0 10*3/uL 1.8-7.7 [facility] Neutrophils/100 WBC Auto (Bl d)Ordered By: Bonnie Jeffrey on 09-26-2022 Neutrophils/100 WBC (Bld) 74.0 % . [facility] No Panel InformationOrdered By: Bonnie Jeffrey on 09-26-2022 Estimated GFR () 39 mL/Min [facility] Comment on above: GFR estimated refere nce range: According to KDOQI guidelines, <60 ml/min/1.73m2 is sufficient to diagnose a patient with chronic kidney disease. Pharmacy Creatinine Clearance (Chem N/A [facility] Nucleated erythrocytes [Pres ence] in Blood by Automated countOrdered By: Bonnie Jeffrey on 09-26-2022 Nucleated RBC Auto Ql (Bld) 0.0 /100{WBC} 0-0.5 [facility] Platelet mean volume Auto (B ld) [Entitic vol]Ordered By: Bonnie Jeffrey on 09-26-2022 Platelet mean volume (Bld) [Entitic vol] 7.8 fL 6.3-10.7 [facility] Platelets Auto (Bld) [#/Vol] Ordered By: Bonnie Jeffrey on 09-26-2022 Platelets (Bld) [#/Vol] 335 10*3/uL 150-450 [facility] Protein [Mass/volume] in Ser um or PlasmaOrdered By: Bonnie Jeffrey on 09-26-2022 Protein [Mass/Vol] 6.8 g/dL 6.1-7.9 [facility] RBC Auto (Bld) [#/Vol]Ordere d By: Bonnie Jeffrey on 09-26-2022 RBC (Bld) [#/Vol] 4.62 10*6/uL 3.60-5.00 [facility] Serum or plasma alanine kamara otransferase measurement without P-5'-P (enzymatic activiOrdered By: Bonnie Jeffrey on 09-26-2022 ALT No additional P-5'-P [Catalytic activity/Vol] 19 U/L 10-60 [facility] Serum or plasma albumin/glob ulin mass ratioOrdered By: Bonnie Jeffrey on 09-26-2022 Albumin/Globulin [Mass ratio] 1.4 {ratio} [facility] Serum or plasma alkaline mona sphatase measurement (enzymatic activity/volume)Ordered By: Bonnie Jeffrey on 09-26-2022 ALP [Catalytic activity/Vol] 45 U/L 32-92 [facility] Serum or plasma anion gap de terminationOrdered By: Bonnie Jeffrey on 09-26-2022 Anion gap [Moles/Vol] 13.8 mmol/L 6.0-15.0 [facility] Serum or plasma aspartate am inotransferase measurement (enzymatic activity/volume)Ordered By: Bonnie Jeffrey on 09-26-2022 AST [Catalytic activity/Vol] 17 U/L 10-42 [facility] Serum or plasma calcium sagrario urement (mass/volume)Ordered By: Bonnie Jeffrey on 09-26-2022 Calcium [Mass/Vol] 8.9 mg/dL 8.2-10.2 [facility] Serum or plasma chloride julieta surement (moles/volume)Ordered By: Bonnie Jeffrey on 09-26-2022 Chloride [Moles/Vol] 100 mmol/L 95-114 [facility] Serum or plasma glucose sagrario urement (mass/volume)Ordered By: Bonnie Jeffrey on 09-26-2022 Glucose [Mass/Vol] 86 mg/dL 70-100 [facility] Comment on above: ADA recommended refe rence rangeRandom Glucose Reference Range is dependent on time and content of last meal. Glucose of more than 200 mg/dL in a nonstressed, ambulatory subject supports the diagnosis of Diabetes Mellitus. Serum or plasma potassium me asurement (moles/volume)Ordered By: Bonnie Jeffrey on 09-26-2022 Potassium [Moles/Vol] 3.5 mmol/L 3.5-5.1 [facility] Serum or plasma sodium measu rement (moles/volume)Ordered By: Bonnie Jeffrey on 09-26-2022 Sodium [Moles/Vol] 134 mmol/L 136-146 [facility] Serum or plasma total biliru bin measurement (mass/volume)Ordered By: Bonnie Jeffrey on 09-26-2022 Bilirubin [Mass/Vol] 0.5 mg/dL 0.3-1.2 [facility] Serum or plasma total carbon dioxide measurement (moles/volume)Ordered By: Bonnie Jeffrey on 09-26-2022 CO2 [Moles/Vol] 23.7 mmol/L 22.0-30.0 [facility] Serum or plasma urea nitroge n measurement (mass/volume)Ordered By: Bonnie Jeffrey on 09-26-2022 Urea nitrogen [Mass/Vol] 25 mg/dL 9-23 [facility] WBC Auto (Bld) [#/Vol]Ordere d By: Bonnie Jeffrey on 09-26-2022 WBC (Bld) [#/Vol] 9.4 10*3/uL 3.8-11.6 [facility] Operative Reporton 3 Operative Report [id number]#[id number]:127 Normal [facility] Pathology Noteon 09-14-2022 Pathology Note [id number]#[id number]:127 Normal [facility] PREG HCG QUALon 09-12-2022 , QUAL Negative Normal NEGATIVE [facility] Comment on above: Performed By: #### P REG #### [facility] [address] [place], [place] [address] Dr. Shemar Armas Lab Reportson 09-10-2022 Lab Reports [id number]:127 Normal [facility] Covid-19 PCR (CVDTBH)on 08-26 SARS-CoV-2 (COVID-19) RNA PADMINI+probe Ql (Unsp spec) Not detected Normal NOT DETECTED [facility] Comment on above: Result Comment: This test is not yet approved or cleared by the [place] FDA. When there are no FDA-approved or cleared tests available, and other criteria are met, FDA can make tests available under an emergency access mechanism called an Emergency Use Authorization (EUA). The EUA for this test is supported by the [place] of Health and Human Service's (HHS's) declaration [...] SARS-CoV-2. Performed By: #### C VDTBH #### [facility] [address] [place], [place] [address] Dr. Shemar Armas ED Note-Physicianon 08-01-20 ED Note-Physician [id number]:127 Normal [facility] Consent for Procedure/Surger yon 07-31-2022 Consent for Procedure/Surgery [id number]:127 Normal [facility] Physician Referralon Physician Referral [id number]:127 Normal [facility] US SINGLE QUAD RT UPPERon US [...] THOM ANGELA Date: 2022-07-09 17:10 Normal [facility] US KIDNEYS BLADDERon US KIDNEYS BLADDER [...] THOM ANGELA Date: 2022-07-04 14:26 Normal [facility] CBC AUTO DIFFon 07-02-2022 BASO # 0.1 103/ul Normal 0.0-0.1 [facility] Comment on above: Performed By: #### C BC #### [facility] [address] [address] [address] Shemar Armas Basophils/100 WBC (Bld) 0.6 % Normal 0.2-2.0 [facility] Comment on above: Performed By: #### C BC #### [facility] [address] [address] [address] Shemar Armas EO # 0.1 103/ul Normal 0.0-0.7 [facility] [place] [facility] Comment on above: Performed By: #### C BC #### [facility] [address] [address] [address] Shemar Armas Eosinophils/100 WBC (Bld) 0.8 % Critically low 0.9-7.0 [facility] [place] [facility] Comment on above: Performed By: #### C BC #### [facility] [address] [place] [address] Dr. Shemar Armas Erythrocyte distribution width (RBC) [Ratio] 14.6 % Normal 11.0-15.0 [facility] [place] [facility] Comment on above: Performed By: #### C BC #### [facility] [address] [place] [address] Dr. Shemar Armas Hematocrit (Bld) [Volume fraction] 36.4 % Normal 36.0-48.0 [facility] [place] [facility] Comment on above: Performed By: #### C BC #### [facility] [address] [place] [address] Dr. Shemar Armas Hemoglobin (Bld) [Mass/Vol] 12.2 g/dL Normal 12.0-16.0 [facility] [place] [facility] Comment on above: Performed By: #### C BC #### [facility] [address] [address] [address] Shemar Armas IG # 0.04 10e3/ul Critically high 0.00-0.03 [facility] Comment on above: Performed By: #### C BC #### [facility] [address] [address] [address] Shemar Armas IG % 0.3 % Normal 0.0-0.5 [facility] [place] [facility] Comment on above: Performed By: #### C BC #### [facility] [address] [address] [address] Shemar Armas LYMPH # 2.1 103/ul Normal 1.2-3.8 [facility] [place] [facility] Comment on above: Performed By: #### C BC #### [facility] [address] [place] [address] Dr. Shemar Armas Lymphocytes/100 WBC (Bld) 18.7 % Critically low 20.5-60.0 [facility] [place] [facility] Comment on above: Performed By: #### C BC #### [facility] [address] [place] [address] Dr. Shemar Armas MANUAL DIFF REQ NO Normal [facility] Comment on above: Performed By: #### C BC #### [facility] [address] [place] [address] Dr. Shemar Armas MCH (RBC) [Entitic mass] 29.6 pg Normal 26.7-34.0 [facility] [place] [facility] Comment on above: Performed By: #### C BC #### [facility] [address] [place] [address] Dr. Shemar Armas MCHC (RBC) [Mass/Vol] 33.5 g/dL Normal 29.9-35.2 [facility] [place] [facility] Comment on above: Performed By: #### C BC #### [facility] [address] [place] [address] Dr. Shemar Armas MCV (RBC) [Entitic vol] 88.3 fL Normal 81.0-99.0 [facility] Comment on above: Performed By: #### C BC #### [facility] [address] [place] [address] Dr. Shemar Armas MONO # 0.7 103/ul Normal 0.3-0.8 [facility] [place] [facility] Comment on above: Performed By: #### C BC #### [facility] [address] [place] [address] Dr. Shemar Armas Monocytes/100 WBC (Bld) 6.2 % Normal 1.7-12.0 [facility] Comment on above: Performed By: #### C BC #### [facility] [address] [address] [address] Shemar Armas NEUT # 8.4 103/ul Critically high 1.4-6.5 [facility] Comment on above: Performed By: #### C BC #### [facility] [address] [address] [address] Shemar Armas Neutrophils/100 WBC (Bld) 73.4 % Normal 43.0-75.0 [facility] [place] [facility] Comment on above: Performed By: #### C BC #### [facility] [address] [address] [address] Shemar Armas Platelet mean volume (Bld) [Entitic vol] 9.2 fL Critically low 9.5-13.5 [facility] [place] [facility] Comment on above: Performed By: #### C BC #### [facility] [address] [address] [address] Shemar Armas PLT 331 103/ul Normal 150-450 [facility] [place] [facility] Comment on above: Performed By: #### C BC #### [facility] [address] [address] [address] Shemar Armas RBC 4.12 106/ul Critically low 4.20-5.40 [facility] Comment on above: Performed By: #### C BC #### [facility] [address] [address] [address] Shemar Armas WBC 11.4 103/ul Critically high 4.0-11.0 [facility] Comment on above: Performed By: #### C BC #### [facility] [address] [address] [address] Shemar Armas PROF CHEM 8 (BAS METB)on Anion gap [Moles/Vol] 11.5 mmol/L Normal [facility] Comment on above: Performed By: #### B MP #### [facility] [address] [address] [address] Shemar Armas Calcium [Mass/Vol] 8.9 mg/dL Normal 8.5-10.1 [facility] Comment on above: Performed By: #### B MP #### [facility] [address] [address] [address] Shemar Armas Chloride [Moles/Vol] 102 mmol/L Normal 98-107 [facility] [place] [facility] Comment on above: Performed By: #### B MP #### [facility] [address] [address] [address] Shemar Armas CO2 [Moles/Vol] 29.6 mmol/L Normal 21.0-32.0 [facility] Comment on above: Performed By: #### B MP #### [facility] [address] [address] [address] Shemar Armas Creatinine [Mass/Vol] 1.93 mg/dL Critically high 0.55-1.02 [facility] [place] [facility] Comment on above: Performed By: #### B MP #### [facility] [address] [address] [address] Shemar Armas EGFR-AF WELSH 37 mL/min/1.73m2 Critically low >=60 [facility] [place] [facility] Comment on above: Performed By: #### B MP #### [facility] [address] [address] [address] Shemar Armas EGFR-NON AF WELSH 30 mL/min/1.73m2 Critically low >=60 [facility] [place] [facility] Comment on above: Performed By: #### B MP #### [facility] [address] [address] [address] Shemar Armas Glucose [Mass/Vol] 93 mg/dL Normal 74-106 [facility] Comment on above: Performed By: #### B MP #### [facility] [address] [address] [address] Shemar Armas Potassium [Moles/Vol] 4.1 mmol/L Normal 3.5-5.1 [facility] Comment on above: Performed By: #### B MP #### [facility] [address] [address] [address] Shemar Armas Sodium [Moles/Vol] 139 mmol/L Normal 136-145 [facility] Comment on above: Performed By: #### B MP #### [facility] [address] [place] [address] Dr. Shemar Armas Urea nitrogen [Mass/Vol] 22.0 mg/dL Critically high 7.0-18 .0 [facility] [place] [facility] Comment on above: Performed By: #### B MP #### [facility] [address] [place] [address] Dr. Shemar Armas Urea nitrogen/Creatinine [Mass ratio] 11.4 mg/mg Normal [facility] [place] [facility] Comment on above: Performed By: #### B MP #### [facility] [address] [place] [address] Dr. Shemar Armas BNPon 06-29-2022 Natriuretic peptide B (Bld) [Mass/Vol] 159.0 pg/mL Normal <=450.0 [facility] [place] [facility] Comment on above: Performed By: #### B MP #### [facility] [address] [place] [address] Dr. Shemar Armas CBC AUTO DIFFon 06-29-2022 BASO # 0.1 103/ul Normal 0.0-0.1 [facility] [place] [facility] Comment on above: Performed By: #### P REG #### [facility] [address] [place] [address] Dr. Shemar Armas Basophils/100 WBC (Bld) 0.7 % Normal 0.2-2.0 [facility] Comment on above: Performed By: #### P REG #### [facility] [address] [place] [address] Dr. Shemar Armas EO # 0.1 103/ul Normal 0.0-0.7 [facility] [place] [facility] Comment on above: Performed By: #### P REG #### [facility] [address] [place] [address] Dr. Shemar Armas Eosinophils/100 WBC (Bld) 1.4 % Normal 0.9-7.0 [facility] [place] [facility] Comment on above: Performed By: #### P REG #### [facility] [address] [place] [address] Dr. Shemar Armas Erythrocyte distribution width (RBC) [Ratio] 14.5 % Normal 11.0-15.0 [facility] [place] [facility] Comment on above: Performed By: #### P REG #### [facility] [address] [address] [address] Shemar Armas Hematocrit (Bld) [Volume fraction] 35.4 % Critically low 36.0-48.0 [facility] [place] [facility] Comment on above: Performed By: #### P REG #### [facility] [address] [place] [address] Dr. Shemar Armas Hemoglobin (Bld) [Mass/Vol] 11.9 g/dL Critically low 12.0-16.0 [facility] [place] [facility] Comment on above: Performed By: #### P REG #### [facility] [address] [place] [address] Dr. Shemar Armas IG # 0.05 10e3/ul Critically high 0.00-0.03 [facility] Comment on above: Performed By: #### P REG #### [facility] [address] [place] [address] Dr. Shemar Armas IG % 0.5 % Normal 0.0-0.5 [facility] [place] [facility] Comment on above: Performed By: #### P REG #### [facility] [address] [place] [address] Dr. Shemar Armas LYMPH # 1.7 103/ul Normal 1.2-3.8 [facility] [place] [facility] Comment on above: Performed By: #### P REG #### [facility] [address] [place] [address] Dr. Shemar Armas Lymphocytes/100 WBC (Bld) 17.3 % Critically low 20.5-60.0 [facility] [place] [facility] Comment on above: Performed By: #### P REG #### [facility] [address] [place] [address] Dr. Shemar Armas MANUAL DIFF REQ NO Normal [facility] Comment on above: Performed By: #### P REG #### [facility] [address] [place] [address] Dr. Shemar Armas MCH (RBC) [Entitic mass] 29.5 pg Normal 26.7-34.0 [facility] [place] [facility] Comment on above: Performed By: #### P REG #### [facility] [address] [address] [address] Shemar Armas MCHC (RBC) [Mass/Vol] 33.6 g/dL Normal 29.9-35.2 [facility] [place] [facility] Comment on above: Performed By: #### P REG #### [facility] [address] [address] [address] Shemar Armas MCV (RBC) [Entitic vol] 87.8 fL Normal 81.0-99.0 [facility] Comment on above: Performed By: #### P REG #### [facility] [address] [address] [address] Shemar Armas MONO # 0.6 103/ul Normal 0.3-0.8 [facility] [place] [facility] Comment on above: Performed By: #### P REG #### [facility] [address] [address] [address] Shemar Armas Monocytes/100 WBC (Bld) 6.3 % Normal 1.7-12.0 [facility] Comment on above: Performed By: #### P REG #### [facility] [address] [address] [address] Shemar Armas NEUT # 7.1 103/ul Critically high 1.4-6.5 [facility] Comment on above: Performed By: #### P REG #### [facility] [address] [address] [address] Shemar Armas Neutrophils/100 WBC (Bld) 73.8 % Normal 43.0-75.0 [facility] [place] [facility] Comment on above: Performed By: #### P REG #### [facility] [address] [address] [address] Shemar Armas Platelet mean volume (Bld) [Entitic vol] 9.4 fL Critically low 9.5-13.5 [facility] [place] [facility] Comment on above: Performed By: #### P REG #### [facility] [address] [address] [address] Shemar Armas PLT 350 103/ul Normal 150-450 [facility] Comment on above: Performed By: #### P REG #### [facility] [address] [address] [address] Shemar Armas RBC 4.03 106/ul Critically low 4.20-5.40 [facility] Comment on above: Performed By: #### P REG #### [facility] [address] [address] [address] Shemar Armas WBC 9.6 103/ul Normal 4.0-11.0 [facility] [place] [facility] Comment on above: Performed By: #### P REG #### [facility] [address] [address] [address] Shemar Armas BASO # 0.0 103/ul Normal 0.0-0.1 [facility] [place] [facility] Comment on above: Performed By: #### C BC #### [facility] [address] [place] [address] Dr. Shemar Armas Basophils/100 WBC (Bld) 0.6 % Normal 0.2-2.0 [facility] Comment on above: Performed By: #### C BC #### [facility] [address] [place] [address] Dr. Shemar Armas EO # 0.1 103/ul Normal 0.0-0.7 [facility] [place] [facility] Comment on above: Performed By: #### C BC #### [facility] [address] [place] [address] Dr. Shemar Armas Eosinophils/100 WBC (Bld) 1.2 % Normal 0.9-7.0 [facility] [place] [facility] Comment on above: Performed By: #### C BC #### [facility] [address] [place] [address] Dr. Shemar Armas Erythrocyte distribution width (RBC) [Ratio] 14.4 % Normal 11.0-15.0 [facility] [place] [facility] Comment on above: Performed By: #### C BC #### [facility] [address] [place] [address] Dr. Shemar Armas Hematocrit (Bld) [Volume fraction] 29.3 % Critically low 36.0-48.0 [facility] [place] [facility] Comment on above: Performed By: #### C BC #### [facility] [address] [address] [address] Shemar Armas Hemoglobin (Bld) [Mass/Vol] 9.9 g/dL Critically low 12.0-16.0 [facility] [place] [facility] Comment on above: Performed By: #### C BC #### [facility] [address] [address] [address] Shemar Armas IG # 0.04 10e3/ul Critically high 0.00-0.03 [facility] Comment on above: Performed By: #### C BC #### [facility] [address] [address] [address] Shemar Armas IG % 0.6 % Critically high 0.0-0.5 [facility] Comment on above: Performed By: #### C BC #### [facility] [address] [address] [address] Shemar Armas LYMPH # 1.5 103/ul Normal 1.2-3.8 [facility] [place] [facility] Comment on above: Performed By: #### C BC #### [facility] [address] [address] [address] Shemar Armas Lymphocytes/100 WBC (Bld) 20.1 % Critically low 20.5-60.0 [facility] [place] [facility] Comment on above: Performed By: #### C BC #### [facility] [address] [place] [address] Dr. Shemar Armas MANUAL DIFF REQ NO Normal [facility] Comment on above: Performed By: #### C BC #### [facility] [address] [address] [address] Shemar Armas MCH (RBC) [Entitic mass] 29.9 pg Normal 26.7-34.0 [facility] [place] [facility] Comment on above: Performed By: #### C BC #### [facility] [address] [address] [address] Shemar Armas MCHC (RBC) [Mass/Vol] 33.8 g/dL Normal 29.9-35.2 [facility] Comment on above: Performed By: #### C BC #### [facility] [address] [address] [address] Shemar Armas MCV (RBC) [Entitic vol] 88.5 fL Normal 81.0-99.0 [facility] Comment on above: Performed By: #### C BC #### [facility] [address] [address] [address] Shemar Armas MONO # 0.5 103/ul Normal 0.3-0.8 [facility] [place] [facility] Comment on above: Performed By: #### C BC #### [facility] [address] [place] [address] Dr. Shemar Armas Monocytes/100 WBC (Bld) 7.5 % Normal 1.7-12.0 [facility] Comment on above: Performed By: #### C BC #### [facility] [address] [place] [address] Dr. Shemar Armas NEUT # 5.1 103/ul Normal 1.4-6.5 [facility] [place] [facility] Comment on above: Performed By: #### C BC #### [facility] [address] [place] [address] Dr. Shemar Armas Neutrophils/100 WBC (Bld) 70.0 % Normal 43.0-75.0 [facility] [place] [facility] Comment on above: Performed By: #### C BC #### [facility] [address] [place] [address] Dr. Shemar Armas Platelet mean volume (Bld) [Entitic vol] 9.2 fL Critically low 9.5-13.5 [facility] [place] [facility] Comment on above: Performed By: #### C BC #### [facility] [address] [place] [address] Dr. Shemar Armas PLT 225 103/ul Normal 150-450 [facility] Comment on above: Performed By: #### C BC #### [facility] [address] [place] [address] Dr. Shemar Armas RBC 3.31 106/ul Critically low 4.20-5.40 [facility] Comment on above: Performed By: #### C BC #### [facility] [address] [place] [address] Dr. Shemar Armas WBC 7.2 103/ul Normal 4.0-11.0 [facility] Comment on above: Performed By: #### C BC #### [facility] [address] [place] [address] Dr. Shemar Armas IRONon 06-29-2022 Iron [Mass/Vol] 110.0 ug/dL Normal 50.0-170.0 [facility] Comment on above: Performed By: #### P REG #### [facility] [address] [place] [address] Dr. Shemar Armas PROF 14(COMP METB)on 022 Albumin [Mass/Vol] 4.0 g/dL Normal 3.4-5.0 [facility] Comment on above: Performed By: #### P REG #### [facility] [address] [place] [address] Dr. Shemar Armas Albumin/Globulin [Mass ratio] 1.1 {ratio} Normal [facility] [place] [facility] Comment on above: Performed By: #### P REG #### [facility] [address] [place] [address] Dr. Shemar Armas ALP [Catalytic activity/Vol] 57 U/L Normal 46-116 [facility] Comment on above: Performed By: #### P REG #### [facility] [address] [place] [address] Dr. Shemar Armas ALT [Catalytic activity/Vol] 26 U/L Normal 14-59 [facility] [place] [facility] Comment on above: Performed By: #### P REG #### [facility] [address] [place] [address] Dr. Shemar Armas Anion gap [Moles/Vol] 10.0 mmol/L Normal [facility] Comment on above: Performed By: #### P REG #### [facility] [address] [place] [address] Dr. Shemar Armas AST [Catalytic activity/Vol] 15 U/L Normal 15-37 [facility] [place] [facility] Comment on above: Performed By: #### P REG #### [facility] [address] [place] [address] Dr. Shemar Armas Bilirubin [Mass/Vol] 0.2 mg/dL Normal 0.2-1.0 [facility] [place] [facility] Comment on above: Performed By: #### P REG #### [facility] [address] [address] [address] Shemar Armas Calcium [Mass/Vol] 8.8 mg/dL Normal 8.5-10.1 [facility] Comment on above: Performed By: #### P REG #### [facility] [address] [address] [address] Shemar Armas Chloride [Moles/Vol] 105 mmol/L Normal 98-107 [facility] [place] [facility] Comment on above: Performed By: #### P REG #### [facility] [address] [address] [address] Shemar Armas CO2 [Moles/Vol] 26.8 mmol/L Normal 21.0-32.0 [facility] Comment on above: Performed By: #### P REG #### [facility] [address] [address] [address] Shemar Armas Creatinine [Mass/Vol] 1.60 mg/dL Critically high 0.55-1.02 [facility] [place] [facility] Comment on above: Performed By: #### P REG #### [facility] [address] [place] [address] Dr. Shemar Armas EGFR-AF WELSH 46 mL/min/1.73m2 Critically low >=60 [facility] [place] [facility] Comment on above: Performed By: #### P REG #### [facility] [address] [address] [address] Shemar Armas EGFR-NON AF WELSH 38 mL/min/1.73m2 Critically low >=60 [facility] [place] [facility] Comment on above: Performed By: #### P REG #### [facility] [address] [place] [address] Dr. Shemar Armas Globulin (S) [Mass/Vol] 3.5 g/dL Normal [facility] Comment on above: Performed By: #### P REG #### [facility] [address] [place] [address] Dr. Shemar Armas Glucose [Mass/Vol] 98 mg/dL Normal 74-106 [facility] Comment on above: Performed By: #### P REG #### [facility] [address] [address] [address] Shemar Armas Potassium [Moles/Vol] 3.8 mmol/L Normal 3.5-5.1 [facility] [place] [facility] Comment on above: Performed By: #### P REG #### [facility] [address] [address] [address] Shemar Armas Protein [Mass/Vol] 7.5 g/dL Normal 6.4-8.2 [facility] Comment on above: Performed By: #### P REG #### [facility] [address] [place] [address] Dr. Shemar Armas Sodium [Moles/Vol] 138 mmol/L Normal 136-145 [facility] Comment on above: Performed By: #### P REG #### [facility] [address] [place] [address] Dr. Shemar Armas Urea nitrogen [Mass/Vol] 24.0 mg/dL Critically high 7.0-18 .0 [facility] [place] [facility] Comment on above: Performed By: #### P REG #### [facility] [address] [place] [address] Dr. Shemar Armas Urea nitrogen/Creatinine [Mass ratio] 15.0 mg/mg Normal [facility] [place] [facility] Comment on above: Performed By: #### P REG #### [facility] [address] [address] [address] Shemar Armas Albumin [Mass/Vol] 3.3 g/dL Critically low 3.4-5.0 [facility] Comment on above: Performed By: #### B MP #### [facility] [address] [place] [address] Dr. Shemar Armas Albumin/Globulin [Mass ratio] 1.1 {ratio} Normal [facility] [place] [facility] Comment on above: Performed By: #### B MP #### [facility] [address] [address] [address] Shemar Armas ALP [Catalytic activity/Vol] 55 U/L Normal 46-116 [facility] [place] [facility] Comment on above: Performed By: #### B MP #### [facility] [address] [address] [address] Shemar Armas ALT [Catalytic activity/Vol] 21 U/L Normal 14-59 [facility] [place] [facility] Comment on above: Performed By: #### B MP #### [facility] [address] [address] [address] Shemar Armas Anion gap [Moles/Vol] 8.1 mmol/L Normal [facility] [place] [facility] Comment on above: Performed By: #### B MP #### [facility] [address] [address] [address] Shemar Armas AST [Catalytic activity/Vol] 13 U/L Critically low 15-37 [facility] [place] [facility] Comment on above: Performed By: #### B MP #### [facility] [address] [address] [address] Shemar Armas Bilirubin [Mass/Vol] 0.1 mg/dL Critically low 0.2-1.0 [facility] Comment on above: Performed By: #### B MP #### [facility] [address] [address] [address] Shemar Armas Calcium [Mass/Vol] 7.5 mg/dL Critically low 8.5-10.1 [facility] Comment on above: Performed By: #### B MP #### [facility] [address] [address] [address] Shemar Armas Chloride [Moles/Vol] 107 mmol/L Normal 98-107 [facility] Comment on above: Performed By: #### B MP #### [facility] [address] [address] [address] Shemar Armas CO2 [Moles/Vol] 24.5 mmol/L Normal 21.0-32.0 [facility] Comment on above: Performed By: #### B MP #### [facility] [address] [address] [address] Shemar Armas Creatinine [Mass/Vol] 2.03 mg/dL Critically high 0.55-1.02 [facility] Comment on above: Performed By: #### B MP #### [facility] [address] [address] [address] Shemar Armas EGFR-AF WELSH 35 mL/min/1.73m2 Critically low >=60 [facility] Comment on above: Performed By: #### B MP #### [facility] [address] [address] [address] Shemar Armas EGFR-NON AF WELSH 29 mL/min/1.73m2 Critically low >=60 [facility] Comment on above: Performed By: #### B MP #### [facility] [address] [address] [address] Shemar Armas Globulin (S) [Mass/Vol] 2.9 g/dL Normal [facility] Comment on above: Performed By: #### B MP #### [facility] [address] [address] [address] Shemar Armas Glucose [Mass/Vol] 111 mg/dL Critically high 74-106 [facility] Comment on above: Performed By: #### B MP #### [facility] [address] [address] [address] Shemar Armas Potassium [Moles/Vol] 3.6 mmol/L Normal 3.5-5.1 [facility] Comment on above: Performed By: #### B MP #### [facility] [address] [address] [address] Shemar Armas Protein [Mass/Vol] 6.2 g/dL Critically low 6.4-8.2 [facility] Comment on above: Performed By: #### B MP #### [facility] [address] [address] [address] Shemar Armas Sodium [Moles/Vol] 136 mmol/L Normal 136-145 [facility] Comment on above: Performed By: #### B MP #### [facility] [address] [address] [address] Shemar Armas Urea nitrogen [Mass/Vol] 28.0 mg/dL Critically high 7.0-18 .0 [facility] Comment on above: Performed By: #### B MP #### [facility] [address] [place] [address] Dr. Shemar Armas Urea nitrogen/Creatinine [Mass ratio] 13.8 mg/mg Normal [facility] Comment on above: Performed By: #### B MP #### [facility] [address] [place] [address] Dr. Shemar Armas TROPONIN, HIGH SENSITIVITYon 06-29-2022 HSTROP 4.8 pg/mL Normal 4.0-51.3 [facility] Comment on above: Result Comment: CUT- OFF POINTS HAVE BEEN ESTABLISHED BASED ON THE FOURTH UNIVERSAL DEFINITIONS OF MYOCARDIAL INFARCTION. THE UPPER REFERENCE LIMIT (URL) OF TROPONIN, DEFINED THE 99TH PERCENTILE OF cTnI DISTRIBUTION IN A REFERENCE POPULATION, HAS BEEN CONFIRMED THE DECISION THRESHOLD FOR OK DIAGNOSIS. Performed By: #### B MP #### [facility] [address] [place] [address] Dr. Shemar Armas INSULINon 04-27-2022 Insulin 15.8 uIU/mL Normal 2.6-24.9 [facility] Comment on above: Performed By: #### I NSULIN #### [facility] [address] [place] [address] Dr. Shemar Armas T4, T3U, FTI LABCORPon 04-27 Free Thyroxine Index 3.1 Normal 1.2-4.9 [facility] Comment on above: Performed By: #### T HYLC #### [facility] [address] [place] [address] Dr. Shemar Armas T3 Uptake 31 % Normal 24-39 [facility] Comment on above: Performed By: #### T HYLC #### [facility] [address] [place] [address] Dr. Shemar Armas T4 [Mass/Vol] 10.1 ug/dL Normal 4.5-12.0 [facility] Comment on above: Performed By: #### T HYLC #### [facility] [address] [place] [address] Dr. Shemar Armas CBC AUTO DIFFon 04-26-2022 BASO # 0.1 103/ul Normal 0.0-0.1 [facility] Comment on above: Performed By: #### B MP #### [facility] [address] [address] [address] Shemar Armas Basophils/100 WBC (Bld) 0.7 % Normal 0.2-2.0 [facility] Comment on above: Performed By: #### B MP #### [facility] [address] [place] [address] Dr. Shemar Armas EO # 0.1 103/ul Normal 0.0-0.7 [facility] Comment on above: Performed By: #### B MP #### [facility] [address] [place] [address] Dr. Shemar Armas Eosinophils/100 WBC (Bld) 0.9 % Normal 0.9-7.0 [facility] Comment on above: Performed By: #### B MP #### [facility] [address] [place] [address] Dr. Shemar Armas Erythrocyte distribution width (RBC) [Ratio] 13.7 % Normal 11.0-15.0 [facility] Comment on above: Performed By: #### B MP #### [facility] [address] [place] [address] Dr. Shemar Armas Hematocrit (Bld) [Volume fraction] 41.8 % Normal 36.0-48.0 [facility] Comment on above: Performed By: #### B MP #### [facility] [address] [place] [address] Dr. Shemar Armas Hemoglobin (Bld) [Mass/Vol] 13.9 g/dL Normal 12.0-16.0 [facility] Comment on above: Performed By: #### B MP #### [facility] [address] [place] [address] Dr. Shemar Armas IG # 0.03 10e3/ul Normal 0.00-0.03 [facility] Comment on above: Performed By: #### B MP #### [facility] [address] [place] [address] Dr. Shemar Armas IG % 0.3 % Normal 0.0-0.5 [facility] Comment on above: Performed By: #### B MP #### [facility] [address] [place] [address] Dr. Shemar Armas LYMPH # 1.8 103/ul Normal 1.2-3.8 [facility] Comment on above: Performed By: #### B MP #### [facility] [address] [place] [address] Dr. Shemar Armas Lymphocytes/100 WBC (Bld) 21.0 % Normal 20.5-60.0 [facility] Comment on above: Performed By: #### B MP #### [facility] [address] [place] [address] Dr. Shemar Armas MANUAL DIFF REQ NO Normal [facility] Comment on above: Performed By: #### B MP #### [facility] [address] [place] [address] Dr. Shemar Armas MCH (RBC) [Entitic mass] 28.8 pg Normal 26.7-34.0 [facility] Comment on above: Performed By: #### B MP #### [facility] [address] [place] [address] Dr. Shemar Armas MCHC (RBC) [Mass/Vol] 33.3 g/dL Normal 29.9-35.2 [facility] Comment on above: Performed By: #### B MP #### [facility] [address] [place] [address] Dr. Shemar Armas MCV (RBC) [Entitic vol] 86.7 fL Normal 81.0-99.0 [facility] Comment on above: Performed By: #### B MP #### [facility] [address] [place] [address] Dr. Shemar Armas MONO # 0.7 103/ul Normal 0.3-0.8 [facility] Comment on above: Performed By: #### B MP #### [facility] [address] [place] [address] Dr. Shemar Armas Monocytes/100 WBC (Bld) 7.9 % Normal 1.7-12.0 [facility] Comment on above: Performed By: #### B MP #### [facility] [address] [address] [address] Shemar Armas NEUT # 6.0 103/ul Normal 1.4-6.5 [facility] Comment on above: Performed By: #### B MP #### [facility] [address] [address] [address] Shemar Armas Neutrophils/100 WBC (Bld) 69.2 % Normal 43.0-75.0 [facility] Comment on above: Performed By: #### B MP #### [facility] [address] [place] [address] Dr. Shemar Armas Platelet mean volume (Bld) [Entitic vol] 9.7 fL Normal 9.5-13.5 [facility] Comment on above: Performed By: #### B MP #### [facility] [address] [place] [address] Dr. Shemar Armas PLT 322 103/ul Normal 150-450 [facility] Comment on above: Performed By: #### B MP #### [facility] [address] [place] [address] Dr. Shemar Armas RBC 4.82 106/ul Normal 4.20-5.40 [facility] Comment on above: Performed By: #### B MP #### [facility] [address] [place] [address] Dr. Shemar Armas WBC 8.7 103/ul Normal 4.0-11.0 [facility] Comment on above: Performed By: #### B MP #### [facility] [address] [place] [address] Dr. Shemar Armas GLYCOHEMOGLOBIN A1Con 2021 ADA RECOMMENDATION SEE BELOW Normal [facility] Comment on above: Result Comment: ADA RECOMMENDED LIMIT 4.0 - 6.0 ADA THERAPEUTIC TARGET < 7.0 ACTION SUGGESTED > 7.0 Performed By: #### P REG #### [facility] [address] [place] [address] Dr. Shemar Armas Glucose [Mass/Vol] 108 mg/dL Normal [facility] Comment on above: Performed By: #### P REG #### [facility] [address] [address] [address] Shemar Armas HbA1c (Bld) [Mass fraction] 5.4 % Normal 4.5-6.2 [facility] Comment on above: Performed By: #### P REG #### [facility] [address] [address] [address] Shemar Armas IRONon 04-26-2022 Iron [Mass/Vol] 55.0 ug/dL Normal 50.0-170.0 [facility] Comment on above: Performed By: #### I CYNDI #### [facility] [address] [address] [address] Shemar Armas LIPID PROFILEon 04-26-2022 CHOL-HDL RATIO NORM SEE BELOW Normal [facility] Comment on above: Result Comment: 3.3 - 4.4 LOW RISK 4.4 - 7.1 AVERAGE RISK 7.1 - 11.0 MODERATE RISK >11.0 HIGH RISK Performed By: #### P REG #### [facility] [address] [place] [address] Dr. Shemar Armas Cholesterol [Mass/Vol] 205 mg/dL Critically high <=200 [facility] Comment on above: Performed By: #### P REG #### [facility] [address] [place] [address] Dr. Shemar Armas Cholesterol in HDL [Mass/Vol] 57 mg/dL Normal 40-60 [facility] Comment on above: Performed By: #### P REG #### [facility] [address] [address] [address] Shemar Armas Cholesterol in LDL [Mass/Vol] 126.8 mg/dL Normal [facility] Comment on above: Performed By: #### P REG #### [facility] [address] [place] [address] Dr. Shemar Armas Cholesterol.total/Choles terol in HDL [Mass ratio] 3.6 {ratio} Normal [facility] Comment on above: Performed By: #### P REG #### [facility] [address] [address] [address] Shemar Armas HDL NORMAL > or = 60 mg/dl - LOW CARDIOVASCULAR RISK <40 mg/dl - HIGH CARDIOVASCULAR RISK Normal [facility] Comment on above: Performed By: #### P REG #### [facility] [address] [address] [address] Shemar Armas LDL CALC NORMAL SEE BELOW Normal [facility] Comment on above: Result Comment: <100 mg/dl OPTIMAL 100 - 129 mg/dl NEAR OR ABOVE OPTIMAL 130 - 159 mg/dl BORDERLINE HIGH 160 - 189 mg/dl HIGH >190 mg/dl VERY HIGH Performed By: #### P REG #### [facility] [address] [address] [address] Shemar Armas Triglyceride [Mass/Vol] 106 mg/dL Normal <=150 [facility] Comment on above: Performed By: #### P REG #### [facility] [address] [address] [address] Shemar Armas VLDL CALC 21.2 mg/dL Normal [facility] Comment on above: Performed By: #### P REG #### [facility] [address] [address] [address] Shemar Armas PROF 14(COMP METB)on 022 Albumin [Mass/Vol] 4.3 g/dL Normal 3.4-5.0 [facility] Comment on above: Performed By: #### T SH, CMP, LIPID #### [facility] [address] [address] [address] Shemar Armas Albumin/Globulin [Mass ratio] 1.2 {ratio} Normal [facility] Comment on above: Performed By: #### T SH, CMP, LIPID #### [facility] [address] [address] [address] Shemar Armas ALP [Catalytic activity/Vol] 62 U/L Normal 46-116 [facility] Comment on above: Performed By: #### T SH, CMP, LIPID #### [facility] [address] [address] [address] Shemar Armas ALT [Catalytic activity/Vol] 34 U/L Normal 14-59 [facility] Comment on above: Performed By: #### T SH, CMP, LIPID #### [facility] [address] [address] [address] Shemar Armas Anion gap [Moles/Vol] 13.7 mmol/L Normal [facility] Comment on above: Performed By: #### T SH, CMP, LIPID #### [facility] [address] [address] [address] Shemar Armas AST [Catalytic activity/Vol] 22 U/L Normal 15-37 [facility] Comment on above: Performed By: #### T SH, CMP, LIPID #### [facility] [address] [place] [address] Dr. Shemar Armas Bilirubin [Mass/Vol] 0.3 mg/dL Normal 0.2-1.0 [facility] Comment on above: Performed By: #### T SH, CMP, LIPID #### [facility] [address] [place] [address] Dr. Shemar Armas Calcium [Mass/Vol] 9.1 mg/dL Normal 8.5-10.1 [facility] Comment on above: Performed By: #### T SH, CMP, LIPID #### [facility] [address] [place] [address] Dr. Shemar Armas Chloride [Moles/Vol] 98 mmol/L Normal 98-107 [facility] Comment on above: Performed By: #### T SH, CMP, LIPID #### [facility] [address] [address] [address] Shemar Armas CO2 [Moles/Vol] 29.9 mmol/L Normal 21.0-32.0 [facility] Comment on above: Performed By: #### T SH, CMP, LIPID #### [facility] [address] [place] [address] Dr. Shemar Armas Creatinine [Mass/Vol] 1.27 mg/dL Critically high 0.55-1.02 [facility] Comment on above: Performed By: #### T SH, CMP, LIPID #### [facility] [address] [place] [address] Dr. Shemar Armas EGFR-AF WELSH 59 mL/min/1.73m2 Critically low >=60 [facility] Comment on above: Performed By: #### T SH, CMP, LIPID #### [facility] [address] [place] [address] Dr. Shemar Armas EGFR-NON AF WELSH 49 mL/min/1.73m2 Critically low >=60 [facility] Comment on above: Performed By: #### T SH, CMP, LIPID #### [facility] [address] [place] [address] Dr. Shemar Armas Globulin (S) [Mass/Vol] 3.6 g/dL Normal [facility] Comment on above: Performed By: #### T SH, CMP, LIPID #### [facility] [address] [place] [address] Dr. Shemar Armas Glucose [Mass/Vol] 92 mg/dL Normal 74-106 [facility] Comment on above: Performed By: #### T SH, CMP, LIPID #### [facility] [address] [place] [address] Dr. Shemar Armas Potassium [Moles/Vol] 3.6 mmol/L Normal 3.5-5.1 [facility] Comment on above: Performed By: #### T SH, CMP, LIPID #### [facility] [address] [place] [address] Dr. Shemar Armas Protein [Mass/Vol] 7.9 g/dL Normal 6.4-8.2 [facility] Comment on above: Performed By: #### T SH, CMP, LIPID #### [facility] [address] [place] [address] Dr. Shemar Armas Sodium [Moles/Vol] 138 mmol/L Normal 136-145 [facility] Comment on above: Performed By: #### T SH, CMP, LIPID #### [facility] [address] [place] [address] Dr. Shemar Armas Urea nitrogen [Mass/Vol] 16.0 mg/dL Normal 7.0-18.0 [facility] Comment on above: Performed By: #### T SH, CMP, LIPID #### [facility] [address] [address] [address] Shemar Armas Urea nitrogen/Creatinine [Mass ratio] 12.6 mg/mg Normal [facility] Comment on above: Performed By: #### T SH, CMP, LIPID #### [facility] [address] [address] [address] Shemar Armas TSHon 04-26-2022 TSH 3.031 uIU/mL Normal 0.358-3.740 [facility] Comment on above: Performed By: #### P REG #### [facility] [address] [address] [address] Shemar Armas Vital Signs Date Time Vital Sign Value Performing Clinician Facility 10-02-2022 16:00-0500 Body height 160.02 cm [facility] Other [facility] Other 10-02-2022 16:00-0500 Body mass index (BMI) [Ratio] 42.69 kg/m2 [facility] Other [facility] Other 10-02-2022 16:00-0500 Body weight 109.32 kg Bonnie [facility] Other [facility] Other 09-28-2022 15:55-0500 Diastolic blood pressure 60 mm[Hg] MD Donnell Brooke Work Phone: [facility] 09-28-2022 15:55-0500 Heart rate 76 /min MD Donnell Brooke Work Phone: [facility] 09-28-2022 15:55-0500 Respiratory rate 16 /min MD Donnell Brooke Work Phone: [facility] 09-28-2022 15:55-0500 SaO2% (BldA) [Mass fraction] 98 % MD Donnell Brooke Work Phone: [facility] 09-28-2022 15:55-0500 Systolic blood pressure 123 mm[Hg] MD Donnell Brooke Work Phone: [facility] 09-28-2022 14:33-0500 Body height 162.56 cm MD Donnell Brooke Work Phone: [facility] 09-28-2022 14:33-0500 Body mass index (BMI) [Ratio] 41.6 kg/m2 MD Donnell Brooke Work Phone: [facility] 09-28-2022 14:33-0500 Body weight 110 kg MD Donnell Brooke Work Phone: [facility] 09-28-2022 12:25-0500 Body temperature 98 [degF] MD Donnell Brooke Work Phone: [facility] 07-30-2022 15:29-0500 Blood Pressure Location Sanjay GEMMAL [facility] 07-30-2022 15:29-0500 Diastolic blood pressure 83 mm[Hg] Sanjay MENENDEZL [facility] 07-30-2022 15:29-0500 Heart rate 75 /min Sanjay NILL [facility] 07-30-2022 15:29-0500 Respiratory rate 16 /min Sanjay NILL [facility] 07-30-2022 15:29-0500 Systolic blood pressure 124 mm[Hg] Sanjay NILL [facility] Encounters Encounter Date Encounter Type Care Provider Facility Start: 06-12-2023 End: 06-12-2023 ambulatory Bonnie Jeffrey Other [facility] Other Start: 06-12-2023 Office outpatient vi sit 15 minutes [facility] Start: 03-20-2023 End: 03-20-2023 ambulatory Bonnie Jeffrey Other [facility] Other Start: 03-20-2023 Office outpatient vi sit 15 minutes Bonnie Calvey [facility] Start: 01-24-2023 End: 01-24-2023 ambulatory Bonnie Calvey Other [facility] Other Start: 01-24-2023 Office outpatient vi sit 15 minutes Bonnie Calvey [facility] Start: 12-11-2022 End: 12-11-2022 ambulatory Bonnie R Calvey Facility:[facility] Start: 11-13-2022 End: 11-13-2022 ambulatory Bonnie R Calvey Facility:[facility] Start: 11-13-2022 End: 11-13-2022 Patient encounter procedure MD Donnell Brooke Work Phone: [facility] Start: 11-13-2022 End: 11-13-2022 ambulatory MD Donnell Brooke Work Phone: [facility] Work Phone: Start: 11-13-2022 Postop follow up vis it related to original px Bonnie Calvey [facility] Start: 10-23-2022 End: 10-23-2022 ambulatory Bonnie Calvey Other [facility] Other Start: 10-23-2022 Postop follow up vis it related to original px Bonnie Calvey [facility] Start: 10-10-2022 End: 10-11-[address] DONNELL BROOKE . Facility: Start: 10-09-2022 End: 10-09-2022 ambulatory Bonnie Calvey Other [facility] Other Start: 10-09-2022 Postop follow up vis it related to original px Bonnie Calvey [facility] Start: 10-02-2022 End: 10-02-2022 ambulatory Bonnie Calvey Other [facility] Other Start: 10-02-2022 Postop follow up vis it related to original px Bonnie Jeffrey [facility] Start: 10-02-2022 Telephone encounter Bonnie Jeffrey [facility] Start: 09-28-2022 End: 09-28-2022 ambulatory Bonnie Jeffrey Facility:[facility] Start: 09-28-2022 End: 09-28-2022 Admission to same day surgery center MD Donnell Brooke Work Phone: [facility] Start: 09-26-2022 End: 09-26-2022 ambulatory Bonnie Edwige Shreyayaniv Facility:[facility] Start: 09-26-2022 End: 09-26-2022 ambulatory MD Donnell Brooke Work Phone: [facility] Work Phone: Start: 09-26-2022 End: 09-26-2022 Patient encounter procedure MD Donnell Brooke Work Phone: [facility] Work Phone: Start: 09-25-2022 End: 09-25-[address] DONNELL BROOKE . Facility: Start: 09-21-2022 ambulatory Sanjay ZUÑIGA Facility :[facility] Start: 09-14-2022 Encounter for preprocedural laboratory examination DR SANJAY ZUÑIGA . [facility] Start: 09-12-2022 End: 09-13-2022 ambulatory Sanjay ZUÑIGA Facility:[id number] Start: 09-11-2022 End: 10-06-[address] DONNELL BROOKE . Facility: Start: 09-07-2022 End: 09-08-[address] DONNELL BROOKE . Facility: Start: 09-07-2022 End: 09-08-2022 Encounter for preprocedural laboratory examination DR DONNELL BROOKE . Facility: Start: 07-30-2022 End: 07-31-2022 ambulatory Donnell Brooke PROVIDER Facility: [facility] Start: 07-30-2022 End: 07-30-2022 Patient encounter procedure Sanjay ZUÑIGA [facility] Start: 07-10-2022 ambulatory Donnell Brooke PROVIDER Facility:[facility] Start: 07-09-2022 End: 07-10-[address] [...] abnormal findings DR DONNELL BROOKE . [facility] Start: 04-26-2022 End: 04-27-[address] [...] Date Care Activity Detail Author Start: 09-28-2022 [facility] Start: 09-28-2022 [facility] Patient referral [facility] Work Phone: Immunizations Immunization Date Immunization Notes Care Provider Josue cheema NEGATED: Highlighted row has not occurred!07-30-2022 influenza virus vaccine, unspecified formulation Sanjay ZUÑIGA [facility] [place] Payers Date Payer Category Payer Self-pay 2022 Unknown [id number] 1990 Unknown [id number] 2.16.8 [id number] 1990 Unknown [id number] 2.16.8 [id number] 1990 Unknown [id number] 2.16.8 40.1.496400.3.579.2.727 1990 Unknown [id number] 2.16.8 40.1.120436.3.579.2.727 1990 Unknown [id number] 2.16.8 40.1.996190.3.579.2.727 1990 Unknown [id number] 2.16.84 0.1.768990.3.579.2.593 1990 Unknown [id number] 2.16.84 0.1.901179.3.579.2.593 1990 Unknown [id number] 2.16.84 0.1.769559.3.579.2.593 1990 Unknown [id number] 2.16.84 0.1.402778.3.579.2.593 1990 Unknown [id number] 2.16.84 0.1.091052.3.579.2.593 1990 Unknown [id number] 2.16.84 0.1.501523.3.579.2.593 1990 Unknown [id number] 2.16.84 0.1.868206.3.579.2.593 1990 Unknown [id number] 2.16.84 0.1.814390.3.579.2.593 1990 Unknown [id number] 2.16.84 0.1.163156.3.579.2.593 1990 Unknown [id number] 2.16.84 0.1.979701.3.579.2.593 1990 Unknown [id number] 2.16.84 0.1.370539.3.579.2.593 1990 Unknown [id number] 2.16.84 0.1.054493.3.579.2.593 1959 Unknown [id number] Unknown [id number] 2.16.8 40.1.792201.3.579.2.531 Unknown [id number] 2.16.8 40.1.177949.3.579.2.531 Unknown [id number] 2.16.8 40.1.198303.3.579.2.531 Unknown [id number] 2.16.8 40.1.962847.3.579.2.531 Social History Date Type Detail Facility Start: 07-30-2022 End: 09-28-2022 Tobacco smoking status Never smoked tobacco (finding) [facility] Tobacco smoking status Never [facility] Sex Assigned At Female [facility] Start: 1990 Sex Assigned At Female [facility] Goals Date Patient Goal Desired Activity /State [...] Other specified postprocedural states (ICD-10 - Z98.890) [facility] Other 07-26-2023 Evaluation note* Encounter Date Diagnosis Assessment Notes Treatment Notes Treatment Clinical Notes Feb, Crushing injury of right thumb, subsequent encounter (ICD-10 - S67.01XD) Patient instructed to keep cuticle moisturized and pushed back. Activity as tolerated Feb, Injury of nail bed o f finger of right hand, subsequent encounter (ICD-10 - S69.91XD) Feb, Other specified postprocedural states (ICD-10 - Z98.890) [facility] Other 06-01-2023 Evaluation note* Encounter Date Diagnosis [...] Other specified postprocedural states (ICD-10 - Z98.890) [facility] Other 03-21-2023 Evaluation note* Encounter Date Diagnosis [...] Other specified postprocedural states (ICD-10 - Z98.890) [facility] Other 02-28-2023 Evaluation note* Encounter Date Diagnosis Assessment Notes Treatment Notes Treatment Clinical Notes Sep, Crushing injury of right thumb, initial encounter (ICD-10 - S67.01XA) Patient instructed on the use of moisturizer for the nailbed. Return to work note given Sep, Injury of nail bed of right thumb, initial encounter (ICD-10 - S69.91XA) [employer] Other 02-14-2023 Evaluation note* Encounter Date Diagnosis Assessment Notes Treatment Notes Treatment Clinical Notes Sep, Crushing injury of right thumb, initial encounter (ICD-10 - S67.01XA) Patient instructed to continue with current wound care and use of stax splint. Continue off work Sep, Injury of nail bed of right thumb, initial encounter (ICD-10 - S69.91XA) [employer] Other 02-07-2023 Evaluation note* Encounter Date Diagnosis Assessment Notes Treatment Notes Treatment Clinical Notes Sep, Crushing injury of right thumb, initial encounter (ICD-10 - S67.01XA) Patient instructed to continue daily soaking. Rx given for Zofran due to vomitting from narcotics Sep, Injury of nail bed of right thumb, initial encounter (ICD-10 - S69.91XA) [employer] Other 01-31-2023 NotePROCEDURE: XR HAND RT MIN [...] Electronically authenticated by: MYAH LEAL Date: 2022-09-25 07:51[facility]01-18-2023 NoteOPERATIVE NOTE OPERATION DATE: 09/12/2022 PREOPERATIVE [...] in good condition. CC: Patient's family physicianThe [facility] [id number] NoteChief Complaint consultation for RUQ pain HPI [...] (Chest pain) Socia (more content not included)...[facility] HospitalComment [facility]: Result Comment: Electronically Signed By: SOL ESPINOZA, Sanjay Paredes\Date and Time Signed: 08/20/22 10:27 ESTEvaluation + Plan note No data available for this section [facility] [place] Evaluation noteNo assessment information available [facility] Work Phone: Evaluation noteNo InformationNortDepartment of Veterans Affairs [facility] [employer] Other Hiskvtn general Narrative - Reported* Type Description Date Medical History depression Medical History bradycardia Medical History tachycardia Surgical History tonsillectomy Surgical History pylenol cysts Surgical History wisdom teeth Surgical History plantar fasciitis, tarsal tunne l x 2 right foot [employer] [facility] [employer] Other Hisjkns general Narrative - Reported* Type Description Date Medical History depression Medical History bradycardia Medical History tachycardia Surgical History tonsillectomy Surgical History pylenol cysts Surgical History wisdom teeth Surgical History plantar fasciitis, tarsal tunne l x 2 right foot Surgical History right thumb I & D 09/28/2022 [facility] [employer] Other Hospital Discharge instructions No data available for this section [facility] [place] Progress note No data available for this section [facility] [place] Chief Complaint and Reason for Visit Chief [...] section and content) DATE CREATED AUTHOR 09/29/2022 [place] [facility] DATE CREATED AUTHOR AUTHOR'S ORGANIZ ATION 12/01/2022 [facility] DATE CREATED AUTHOR AUTHOR'S ORGANIZ ATION 12/15/2022 [facility] REASON FOR VISIT (unrecogniz ed [...] BE BASED ON THE PRIMARY CLINICAL RECORDS. [employer] provides no warranty or guarantee of the accuracy or completeness of information in this document.
[2024-04-20 10:52] LABS: Alanine Aminotransferase 26 U/L (14-59); Albumin Globulin Ratio 1.1; Albumin Level 3.8 g/dL (3.4-5.0); Alkaline Phosphatase 64 U/L (46-116); Anion Gap 10.8; Aspartate Amino Transferase 15 U/L (15-37); BUN Creatinine Ratio 12.6; Bilirubin Total 0.4 mg/dL (0.2-1.0); Calcium 8.9 mg/dL (8.5-10.1); Carbon Dioxide 31.9 mmol/L (21.0-32.0); Chloride 101 mmol/L (98-107); Estimated GFR (African America >60 (>=60); Estimated GFR (Non-African Ame 57 (>=60); Globulin 3.4 g/dL; Glucose 78 mg/dL (74-106); Potassium 3.7 mmol/L (3.5-5.1); Sodium 140 mmol/L (136-145); Total Protein 7.2 g/dL (6.4-8.2)
== END 2024-04-20 09:18 | disposition home or self-care (01) ==
LOC: LAB 09:18
PROVIDERS: PCP Family Medicine; Visit Provider Family Medicine
DX: E83.42 Hypomagnesemia (principal)
CPT/HCPCS: 36415; 80053

== ENCOUNTER 2024-05-21 11:59 | Outpatient (OUT) | payer OTHER, SELFPAY ==
--- NOTE | 2024-05-21 | XR_ITS ---
The [address] [address] Patient Name: JAREK FIELD MRN: [id number] date: 1990 Sex: F Assigned Patient Location: [facility] Current Patient Location: Accession/Order Number: [id number] Exam Date: 05/21/2024 12:11 Report Date: 05/22/2024 10:00 At the request of: DONNELL ALLEN Procedure: XR ankle RT min 3V PROCEDURE: XR ankle RT min 3V HISTORY: Right ankle pain ; lateral ankle pain since falling one and half weeks ago COMPARISON: None. FINDINGS: BONES:Fracture and fragment from the tip of the lateral malleolus, 4 mm gap at the lateral margin. Intact, uniform spacing of the tibiotalar joint.. SOFT TISSUES:Soft tissue swelling surrounding the ankle. EFFUSION:None visible. OTHER: Negative. XR/XR ankle RT min 3V IMPRESSION: 1. Acute to subacute, mildly displaced fracture involving the tip of the lateral malleolus. Electronically authenticated by: MYAH LEAL Date: 05/22/2024 10:00
--- OUTSIDE RECORDS SUMMARY | 2024-05-21 12:13 | XMS_ITS | CCD ---
Author Organization [facility] Care Team Providers Care Frame Opener Name Role Phone Donnell Brooke Primary Care Physician MD Bonnie Jeffrey Attending Provider [phone] MD Donnell Brooke Primary Care Provider [phone] Edwardo PROVIDERDonnell Referring Unavailabl e NILL, Sanjya Gibbons Attending Unavailable NILL, Sanjay Gibbons Attending Unavailable NILL, Sanjay Gibbons Attending Unavailable NILL, Sanjay Gibbons Attending Unavailable Hoy PROVIDERDonnell Referring Unavailabl e NILL, Sanjay Gibbons Attending Unavailable Bonnie Jeffrey Unavailable MD Bonnie Jeffrey Attending Provider MD Donnell Brooke Primary Care Provider [phone] MARTHAY ., DR JACOBO Primary Care Unavailable HOY ., DR JACOBO Admitting Unavailable HOY ., DR JACBOO Attending Unavailable HOY ., DR JACOBO Primary [...] [morphine] Drug Allergy 3 Chest pain (finding) [facility] [place] (14 sources) SILVER; Translations: [SILVER] Allergy to substance 4 INFECTION, Edema, silver wound pack reversed healing [facility] (4 sources) irbesartan; Translations: [irbesartan] Drug Allergy 3 Unknown Reaction [facility] (1 source) MORPHINE SUBSTITUTE; Translations: [MORPHINE SUBSTITUTE] Propensity to adverse reactions (disorder) [facility] (1 source) Morphine Drug Allergy [facility] Medications Current Medications Medication Drug Class(es) Dates Sig (Normalized) Sig (Original) acebutolol 200 mg oral capsule (11 sources) beta-Adrenergic Ana Start: 09-26-2022 take 200 mg by mouth twice daily Acebutolol Active 200 MG PO Twice daily September 26, 2022 1:00am Start: 07-27-2022 take 1 capsule by mo [facility] twice daily acebutolol 200 mg Cap 200 mg = 1 cap(s), Oral, BID, Refills(s) 0 Start Date: 07/27/22 Status: Ordered take 1 capsule by mo [facility] every twenty-four hours Acebutolol HCl 200 MG [...] by mouth once daily in the morning Triamterene-Bedias chlorothiazid Active 1 TAB PO Every morning September 26, 2022 1:00am levonorgestrel 0.962566 mg/hr intrauterine system (2 sources) Progestin, Progestin-containing [...] Start: 07-27-2022 take 2 tablets by mo [facility] once daily oxaprozin 600 mg Tab 1,200 [...] Start: 07-27-2022 take 2 tablets by mo [facility] at bedtime tiZANidine 4 mg Tab 8 mg = 2 tab(s), Oral, Bedtime, Refills(s) 0 Start Date: 07/27/22 Status: Ordered take [address] [facility] every eight hours tiZANidine HCl 4 [...] 09-28-2022 Episodic Other aftercare (1 source) Other senior living (current) drug therapy; Translations: [OTH HALFWAY CURRENT DRUG THERAPY] Onset: 09-18-2022 Episodic Other [...] 3V*on 023 XR hand RT min 3V* [facility] Main [address] [address] XRay Report Signed Patient: Veronica Ross MR#: [id number] : 1990 Acct:[id number] Age/Sex: 32 / F ADM Date: 12/11/22 Loc: [facility] Room: Type: REG CLI Attending Dr: Bonnie [...] Dong Jr., DSandeeOSandee12/11/2022 4:55 PM Dictation Location: [place] [address] Transcribed By: [facility] 12/11/22 165 Dictated By: Willie Dong Jr, DO 12/11/221652 Signed By: 12/11/22 1655 Normal [facility] XR hand RT min 3V*on 023 XR hand RT min 3V* [facility] Main [address] [address] XRay Report Signed Patient: Veronica Ross MR#: [id number] : 1990 Acct:[id number] Age/Sex: 32 / F ADM Date: 11/13/22 Loc: [facility] Room: Type: REG CLI Attending Dr: Bonnie [...] Kalpesh Murry M.D.11/13/2022 5:23 PM Dictation Location: [place] [address] Transcribed By: [facility] 11/13/22 172 Dictated By: Kalpesh Murry II, MD 11/13/22 172 Signed By: 11/13/22 172 Normal [facility] XR hand RT min 3V* [facility] [employer] Other XR hand RT min 3V* [facility] [employer] Other XR hand RT min 3V* [address] [place] [address] [employer] Other XR hand RT min 3V* [place] [address] [facility] [employer] Other XR hand RT min 3V* XRay Report [employer] Other XR hand RT min 3V* Signed [employer] Other XR hand RT min 3V* Patient: Veronica Ross MR#: [id number] [place] [employer] Other XR hand RT min 3V* 7067 [employer] Other XR hand RT min 3V* : 1990 Acct:[id number] [employer] Other XR hand RT min 3V* Age/Sex: 32 / F ADM Date: 11/13/22 [employer] Other XR hand RT min 3V* Loc: [facility]: [facility] [employer] Other XR hand RT min 3V* Attending Dr: Bonnie Jeffrey MD [employer] Other XR hand RT min 3V* Copies to: Bonnie Jeffrey MD [employer] Other XR hand RT min 3V* Ordering Provider: Bonnie Jeffrey MD [employer] Other XR hand RT min 3V* Date of Service: 11/13/22 [employer] Other XR hand RT min 3V* XR/XR hand RT min 3V*: Crushing injury of right thumb, subsequent [employer] Other XR hand RT min 3V* encounter [employer] Other XR hand RT min 3V* XR hand RT min 3V* 11/13/2022 3:49 PM [employer] Other XR hand RT min 3V* SIGNS AND SYMPTOMS: Status post incision and debridement of open fracture of right thumb, follow-up [employer] Other XR hand RT min 3V* PROTOCOL: Frontal, lateral, and oblique radiographs of the right hand [employer] Other XR hand RT min 3V* COMPARISON: 09/25/2022 [employer] Other XR hand RT min 3V* FINDINGS: [employer] Other XR hand RT min 3V* Healing/healed fracture of the distal phalanx of the right thumb. There is no change in alignment. [employer] Other XR hand RT min 3V* The joint spaces are preserved. No significant soft tissue swelling. [employer] Other XR hand RT min 3V* XR/XR hand RT min 3V* [employer] Other XR hand RT min 3V* IMPRESSION: [employer] Other XR hand RT min 3V* Impression dictated by: Kalpesh Murry M.D.11/13/2022 5:23 PM [place] [employer] Other XR hand RT min 3V* Dictation Location: [place] [address] [employer] [facility] [employer] Other XR hand RT min 3V* Transcribed By: [facility] 11/13/[address] [place] [address] [employer] Other XR hand RT min 3V* Dictated By: Kalpesh Murry II, MD 11/13/[address] [place] [address] [employer] Other XR hand RT min 3V* Signed By: [employer] Other XR hand RT min 3V* 11/13/[address] [place] [address] [employer] Other PROF CHEM 8 (BAS METB)on Anion gap [Moles/Vol] 11.0 mmol/L Normal [facility] Comment on above: Performed By: #### B MP #### [facility] [address] [place] [address] Dr. Shemar Armas Calcium [Mass/Vol] 8.8 mg/dL Normal 8.5-10.1 [facility] Comment on above: Performed By: #### B MP #### [facility] [address] [place] [address] [address] Shemar Armas Chloride [Moles/Vol] 100 mmol/L Normal 98-107 [facility] Comment on above: Performed By: #### B MP #### [facility] [address] [place] [address] Dr. Shemar Armas CO2 [Moles/Vol] 31.5 mmol/L Normal 21.0-32.0 [facility] Comment on above: Performed By: #### B MP #### [facility] [address] [place] [address] [address] Shemar Armas Creatinine [Mass/Vol] 1.18 mg/dL Critically high 0.55-1.02 [facility] Comment on above: Performed By: #### B MP #### [facility] [address] [place] [address] [address] Shemar Armas EGFR-AF COLOMBIAN >60 Normal >=60 [facility] Comment on above: Performed By: #### B MP #### [facility] [address] [place] [address] [address] Shemar Armas EGFR-NON AF COLOMBIAN 53 mL/min/1.73m2 Critically low >=60 [facility] Comment on above: Performed By: #### B MP #### [facility] [address] [place] [address] [address] Shemar Armas Glucose [Mass/Vol] 89 mg/dL Normal 74-106 [facility] Comment on above: Performed By: #### B MP #### [facility] [address] [place] [address] [address] Shemar Armas Potassium [Moles/Vol] 3.5 mmol/L Normal 3.5-5.1 [facility] Comment on above: Performed By: #### B MP #### [facility] [address] [place] [address] [address] Shemar Armas Sodium [Moles/Vol] 139 mmol/L Normal 136-145 [facility] Comment on above: Performed By: #### B MP #### [facility] [address] [place] [address] [address] Shemar Armas Urea nitrogen [Mass/Vol] 11.0 mg/dL Normal 7.0-18.0 [facility] Comment on above: Performed By: #### B MP #### [facility] [address] [place] [address] [address] Shemar Armas Urea nitrogen/Creatinine [Mass ratio] 9.3 mg/mg Normal [facility] Comment on above: Performed By: #### B MP #### [facility] [address] [place] [address] [address] Shemar Armas HCG ( test) Aiden benjamin Ql (U)Ordered By: THOM DUONG on 09-28-2022 HCG ( test) Ql (U) Negative [facility] HCG,Urineon 09-28-2022 Beta HCG ( test) Ql (U) Negative Normal [facility] Comment on above: Result Comment: PERF ORMED BY: [place] [address] PATHOLOGIST [employer] KWABENA MELVIN M.D. Performed By: #### U HCG #### [facility] [address] [place] [address] [place] Albumin [Mass/volume] in Ser um or PlasmaOrdered By: Bonnie Jeffrey on 09-26-2022 Albumin [Mass/Vol] 4.0 g/dL 3.2-5.[address] [facility] Basophils Auto (Bld) [#/Vol] Ordered By: Bonnie Jeffrey on 09-26-2022 Basophils (Bld) [#/Vol] 0.1 10*3/uL 0.0-0.2 [facility] Basophils/100 WBC Auto (Bld) Ordered By: Bonnie Jeffrey on 09-26-2022 Basophils/100 WBC (Bld) 1.2 % . [facility] Complete Blood Count Auto Di ffon 09-26-2022 Basophils (Bld) [#/Vol] 0.1 10*3/uL Normal 0.0-0.2 [facility] Comment on above: Result Comment: PERF ORMED BY: [place] [address] PATHOLOGIST [employer] KWABENA MELVIN M.D. Performed By: #### C BC, CMP #### [facility] [address] [place] [address] [place] Basophils/100 WBC (Bld) 1.2 % Normal . [facility] Comment on above: Performed By: #### C BC, CMP #### [facility] [address] [place] [address] [place] Eosinophils (Bld) [#/Vol] 0.1 10*3/uL Normal 0.0-0.45 [facility] Comment on above: Performed By: #### C BC, CMP #### [facility] [address] [place] [address] [place] Eosinophils/100 WBC (Bld) 0.9 % Normal . [facility] Comment on above: Performed By: #### C BC, CMP #### [facility] [address] Erythrocyte distribution width (RBC) [Ratio] 13.6 % Normal 11.9-15.3 [facility] Comment on above: Performed By: #### C BC, CMP #### [facility] [address] Hematocrit (Bld) [Volume fraction] 40.2 % Normal 34.0-46.4 [facility] Comment on above: Performed By: #### C BC, CMP #### [facility] [address] Hemoglobin (Bld) [Mass/Vol] 13.3 g/dL Normal 11.8-15.4 [facility] Comment on above: Performed By: #### C BC, CMP #### [facility] [address] Lymphocytes (Bld) [#/Vol] 1.7 10*3/uL Normal 1.00-4.8 [facility] Comment on above: Performed By: #### C BC, CMP #### [facility] [address] [place] [address] [place] Lymphocytes/100 WBC (Bld) 18.1 % Normal . [facility] Comment on above: Performed By: #### C BC, CMP #### [facility] [address] [place] [address] [place] MCH (RBC) [Entitic mass] 28.8 pg Normal 24.7-34.3 [facility] Comment on above: Performed By: #### C BC, CMP #### [facility] [address] MCV (RBC) [Entitic vol] 87.1 fL Normal 80-100 [facility] Comment on above: Performed By: #### C BC, CMP #### [facility] [address] [place] [id number] [place] Mean Corpuscular HGB Conc 33.0 g/dL Normal 32.0-35.0 [facility] Comment on above: Performed By: #### C BC, CMP #### [facility] [address] [place] [address] [place] Monocytes (Bld) [#/Vol] 0.5 10*3/uL Normal 0.0-0.8 [facility] Comment on above: Performed By: #### C BC, CMP #### [facility] [address] [place] [address] [place] Monocytes/100 WBC (Bld) 5.8 % Normal . [facility] Comment on above: Performed By: #### C BC, CMP #### [facility] [address] [place] [address] [place] Neutrophils (Bld) [#/Vol] 7.0 10*3/uL Normal 1.8-7.7 [facility] Comment on above: Performed By: #### C BC, CMP #### [facility] [address] [place] [id number] [place] Neutrophils/100 WBC (Bld) 74.0 % Normal . [facility] Comment on above: Performed By: #### C BC, CMP #### [facility] [address] [place] [id number] [place] NRBC% 0.0 /100{WBC} Normal 0-0.5 [facility] Comment on above: Performed By: #### C BC, CMP #### [facility] [address] [place] [id number] [place] Platelet mean volume (Bld) [Entitic vol] 7.8 fL Normal 6.3-10.7 [facility] Comment on above: Performed By: #### C BC, CMP #### [facility] [address] [place] [id number] [place] Platelets (Bld) [#/Vol] 335 10*3/uL Normal 150-450 [facility] Comment on above: Performed By: #### C BC, CMP #### [address] RBC (Bld) [#/Vol] 4.62 10*6/uL Normal 3.60-5.00 [facility] Comment on above: Performed By: #### C BC, CMP #### [address] WBC (Bld) [#/Vol] 9.4 10*3/uL Normal 3.8-11.[address] [facility] Comment on above: Performed By: #### C BC, CMP #### [address] Comprehensive Metabolic Pane [place] 09-26-2022 Albumin [Mass/Vol] 4.0 g/dL Normal 3.2-5.[address] [facility] Comment on above: Performed By: #### C BC, CMP #### [address] Albumin/Globulin [Mass ratio] 1.4 {ratio} Normal [facility] Comment on above: Performed By: #### C BC, CMP #### [address] ALP [Catalytic activity/Vol] 45 U/L Normal 32-92 [facility] Comment on above: Result Comment: PERF ORMED BY: [place] [address] PATHOLOGIST [employer] KWABENA MELVIN M.D. Performed By: #### C BC, CMP #### [address] ALT [Catalytic activity/Vol] 19 U/L Normal 10-60 [facility] Comment on above: Performed By: #### C BC, CMP #### [address] Anion gap [Moles/Vol] 13.8 mmol/L Normal 6.0-15.0 [facility] Comment on above: Performed By: #### C BC, CMP #### [address] [place] [address] [place] AST [Catalytic activity/Vol] 17 U/L Normal 10-42 [facility] Comment on above: Performed By: #### C BC, CMP #### [facility] [address] Bilirubin [Mass/Vol] 0.5 mg/dL Normal 0.3-1.[address] [facility] Comment on above: Performed By: #### C BC, CMP #### [facility] [address] Calcium [Mass/Vol] 8.9 mg/dL Normal 8.2-10.[address] [facility] Comment on above: Performed By: #### C BC, CMP #### [address] Chloride [Moles/Vol] 100 mmol/L Normal 95-[address] [facility] Comment on above: Performed By: #### C BC, CMP #### [facility] [address] CO2 [Moles/Vol] 23.7 mmol/L Normal 22.0-30.0 [facility] Comment on above: Performed By: #### C BC, CMP #### [facility] [address] Creatinine [Mass/Vol] 1.82 mg/dL High 0.44-1.03 [facility] Comment on above: Performed By: #### C BC, CMP #### [facility] [address] Estimated GFR ( Perri 39 [facility] Comment on above: Result Comment: GFR estimated reference range: According to KDOQI guidelines, <60 ml/min/1.73m2 is sufficient to diagnose a patient with chronic kidney disease. Performed By: #### C BC, CMP #### [place] [address] [place] Estimated GFR (Non- Am 32 [facility] Comment on above: Performed By: #### C BC, CMP #### [place] [id number] [place] Globulin (S) [Mass/Vol] 2.8 g/dL Normal [facility] Comment on above: Performed By: #### C BC, CMP #### [facility] [address] Glucose [Mass/Vol] 86 mg/dL Normal 70-[address] [facility] Comment on above: Result Comment: [facility] Glucose Reference Range is dependent on time and content of last meal. Glucose of more than 200 mg/dL in a nonstressed, ambulatory subject supports the diagnosis of Diabetes Mellitus. ADA recommended reference range Performed By: #### C BC, CMP #### [facility] [address] Potassium [Moles/Vol] 3.5 mmol/L Normal 3.5-5.1 [facility] Comment on above: Performed By: #### C BC, CMP #### [address] Protein [Mass/Vol] 6.8 g/dL Normal 6.1-7.[address] [facility] Comment on above: Performed By: #### C BC, CMP #### [address] Sodium [Moles/Vol] 134 mmol/L Low 136-[address] [facility] Comment on above: Performed By: #### C BC, CMP #### [address] Urea nitrogen [Mass/Vol] 25 mg/dL High 9-23 [facility] Comment on above: Performed By: #### C BC, CMP #### [place] [address] [place] Creatinine and Glomerular fi ltration rate.predicted panel (S/P/Bld)Ordered By: Bonnie Jeffrey on 09-26-2022 Creatinine [Mass/Vol] 1.82 mg/dL 0.44-1.03 [facility] Eosinophils Auto (Bld) [#/Vo l]Ordered By: Bonnie Jeffrey on 09-26-2022 Eosinophils (Bld) [#/Vol] 0.1 10*3/uL 0.0-0.45 [facility] Eosinophils/100 WBC Auto (Bl d)Ordered By: Bonnie Jeffrey on 09-26-2022 Eosinophils/100 WBC (Bld) 0.9 % . [facility] Erythrocyte distribution wid th Auto (RBC) [Ratio]Ordered By: Bonnie Jeffrey on 09-26-2022 Erythrocyte distribution width (RBC) [Ratio] 13.6 % 11.9-15.3 [facility] Estimated glomerular filtrat ion rate (GFR) non- AmericanOrdered By: Bonnie Jeffrey on 09-26-2022 GFR/1.73 sq M.predicted among non-blacks MDRD (S/P/Bld) [Vol rate/Area] 32 mL/Min [facility] Globulin Calc (S) [Mass/Vol] Ordered By: Bonnie Jeffrey on 09-26-2022 Globulin (S) [Mass/Vol] 2.8 g/dL [facility] Hematocrit Auto (Bld) [Volum e fraction]Ordered By: Bonnie Jeffrey on 09-26-2022 Hematocrit (Bld) [Volume fraction] 40.2 % 34.0-46.4 [facility] Hemoglobin [Mass/volume] in BloodOrdered By: Bonine Jeffrey on 09-26-2022 Hemoglobin (Bld) [Mass/Vol] 13.3 g/dL 11.8-15.4 [facility] Leukocytes [#/volume] correc franco for nucleated erythrocytes in Blood by Automated counOrdered By: Bonnie Jeffrey on 09-26-2022 WBC corrected for nucl RBC Auto (Bld) [#/Vol] 9.4 10*3/uL 3.8-11.6 [facility] Lymphocytes Auto (Bld) [#/Vo l]Ordered By: Bonnie Jeffrey on 09-26-2022 Lymphocytes (Bld) [#/Vol] 1.7 10*3/uL 1.00-4.8 [facility] Lymphocytes/100 WBC Auto (Bl d)Ordered By: Bonnie Jeffrey on 09-26-2022 Lymphocytes/100 WBC (Bld) 18.1 % . [facility] MCH Auto (RBC) [Entitic mass ]Ordered By: Bonnie Jeffrey on 09-26-2022 MCH (RBC) [Entitic mass] 28.8 pg 24.7-34.3 [facility] MCHC Auto (RBC) [Mass/Vol]Or dered By: Bonnie Jeffrey on 09-26-2022 MCHC (RBC) [Mass/Vol] 33.0 g/dL 32.0-35.0 [facility] MCV Auto (RBC) [Entitic vol] Ordered By: Bonnie Jeffrey on 09-26-2022 MCV (RBC) [Entitic vol] 87.1 fL 80-100 [facility] Monocytes Auto (Bld) [#/Vol] Ordered By: Bonnie Jeffrey on 09-26-2022 Monocytes (Bld) [#/Vol] 0.5 10*3/uL 0.0-0.8 [facility] Monocytes/100 WBC Auto (Bld) Ordered By: Bonnie Jeffrey on 09-26-2022 Monocytes/100 WBC (Bld) 5.8 % . [facility] Neutrophils Auto (Bld) [#/Vo l]Ordered By: Bonnie Jeffrey on 09-26-2022 Neutrophils (Bld) [#/Vol] 7.0 10*3/uL 1.8-7.7 [facility] Neutrophils/100 WBC Auto (Bl d)Ordered By: Bonnie Jeffrey on 09-26-2022 Neutrophils/100 WBC (Bld) 74.0 % . [facility] No Panel InformationOrdered By: Bonnie Jeffrey on 09-26-2022 Estimated GFR () 39 mL/Min [facility] Comment on above: GFR estimated refere nce range: According to KDOQI guidelines, <60 ml/min/1.73m2 is sufficient to diagnose a patient with chronic kidney disease. Pharmacy Creatinine Clearance (Chem N/A [facility] Nucleated erythrocytes [Pres ence] in Blood by Automated countOrdered By: Bonnie Jeffrey on 09-26-2022 Nucleated RBC Auto Ql (Bld) 0.0 /100{WBC} 0-0.5 [facility] Platelet mean volume Auto (B ld) [Entitic vol]Ordered By: Bonnie Jeffrey on 09-26-2022 Platelet mean volume (Bld) [Entitic vol] 7.8 fL 6.3-10.7 [facility] Platelets Auto (Bld) [#/Vol] Ordered By: Bonnie Jeffrey on 09-26-2022 Platelets (Bld) [#/Vol] 335 10*3/uL 150-450 [facility] Protein [Mass/volume] in Ser um or PlasmaOrdered By: Bonnie Jeffrey on 09-26-2022 Protein [Mass/Vol] 6.8 g/dL 6.1-7.[address] [facility] RBC Auto (Bld) [#/Vol]Ordere d By: Bonnie Jeffrey on 09-26-2022 RBC (Bld) [#/Vol] 4.62 10*6/uL 3.60-5.00 [facility] Serum or plasma alanine kamara otransferase measurement without P-5'-P (enzymatic activiOrdered By: Bonnie Jeffrey on 09-26-2022 ALT No additional P-5'-P [Catalytic activity/Vol] 19 U/L 10-60 [facility] Serum or plasma albumin/glob ulin mass ratioOrdered By: Bonnie Jeffrey on 09-26-2022 Albumin/Globulin [Mass ratio] 1.4 {ratio} [facility] Serum or plasma alkaline mona sphatase measurement (enzymatic activity/volume)Ordered By: Bonnie Jeffrey on 09-26-2022 ALP [Catalytic activity/Vol] 45 U/L 32-92 [facility] Serum or plasma anion gap de terminationOrdered By: Bonnie Jeffrey on 09-26-2022 Anion gap [Moles/Vol] 13.8 mmol/L 6.0-15.0 [facility] Serum or plasma aspartate am inotransferase measurement (enzymatic activity/volume)Ordered By: Bonnie Jeffrey on 09-26-2022 AST [Catalytic activity/Vol] 17 U/L 10-42 [facility] Serum or plasma calcium sagrario urement (mass/volume)Ordered By: Bonnie Jeffrey on 09-26-2022 Calcium [Mass/Vol] 8.9 mg/dL 8.2-10.[address] [facility] [facility] Serum or plasma chloride julieta surement (moles/volume)Ordered By: Bonnie Jeffrey on 09-26-2022 Chloride [Moles/Vol] 100 mmol/L 95-[address] [facility] Serum or plasma glucose sagrario urement (mass/volume)Ordered By: Bonnie Jeffrey on 09-26-2022 Glucose [Mass/Vol] 86 mg/dL 70-[address] [facility] Comment on above: ADA recommended refe rence rangeRandom Glucose Reference Range is dependent on time and content of last meal. Glucose of more than 200 mg/dL in a nonstressed, ambulatory subject supports the diagnosis of Diabetes Mellitus. Serum or plasma potassium me asurement (moles/volume)Ordered By: Bonnie Jeffrey on 09-26-2022 Potassium [Moles/Vol] 3.5 mmol/L 3.5-5.1 [facility] Serum or plasma sodium measu rement (moles/volume)Ordered By: Bonnie Jeffrey on 09-26-2022 Sodium [Moles/Vol] 134 mmol/L 136-[address] [facility] Serum or plasma total biliru bin measurement (mass/volume)Ordered By: Bonnie Jeffrey on 09-26-2022 Bilirubin [Mass/Vol] 0.5 mg/dL 0.3-1.[address] [facility] Serum or plasma total carbon dioxide measurement (moles/volume)Ordered By: Bonnie Jeffrey on 09-26-2022 CO2 [Moles/Vol] 23.7 mmol/L 22.0-30.0 [facility] Serum or plasma urea nitroge n measurement (mass/volume)Ordered By: Bonnie Jeffrey on 09-26-2022 Urea nitrogen [Mass/Vol] 25 mg/dL 9-23 [facility] WBC Auto (Bld) [#/Vol]Ordere d By: Bonnie Jeffrey on 09-26-2022 WBC (Bld) [#/Vol] 9.4 10*3/uL 3.8-11.[address] [facility] Operative Reporton 3 Operative Report [id number]#1.00CD:127 Normal [facility] Pathology Noteon 09-14-2022 Pathology Note [id number]#1.00CD:127 Normal [facility] PREG HCG QUALon 09-12-2022 , QUAL Negative Normal NEGATIVE [facility] Comment on above: Performed By: #### P REG #### [facility] [address] [place], [place] [address] Dr. Shemar Armas Lab Reportson 09-10-2022 Lab Reports [id number]#1.00CD:127 Normal [facility] Covid-19 PCR (CVDTBH)on 08-26 SARS-CoV-2 (COVID-19) RNA PADMINI+probe Ql (Unsp spec) Not detected Normal NOT DETECTED [facility] Comment on above: Result Comment: This test is not yet approved or cleared by the [place] FDA. When there are no FDA-approved or cleared tests available, and other criteria are met, FDA can make tests available under an emergency access mechanism called an Emergency Use Authorization (EUA). The EUA for this test is supported by the [place] of Health and Human Service's (HHS's) declaration [...] SARS-CoV-2. Performed By: #### C VDTBH #### [facility] [address] [place], [place] [address] Dr. Shemar Armas ED Note-Physicianon 08-01-20 ED Note-Physician [id number]:127 Normal [facility] Consent for Procedure/Surger yon 07-31-2022 Consent for Procedure/Surgery [id number]#1.00CD:127 Normal [facility] Physician Referralon Physician Referral [id number]#1.00CD:127 Normal [facility] US SINGLE QUAD RT UPPERon US SINGLE [...] THOM ANGELA Date: 2022-07-09 17:10 Normal [facility] US KIDNEYS BLADDERon US KIDNEYS BLADDER [...] THOM ANGELA Date: 2022-07-04 14:26 Normal [facility] CBC AUTO DIFFon 07-02-2022 BASO # 0.1 103/ul Normal 0.0-0.1 [facility] Comment on above: Performed By: #### C BC #### [facility] [address] [place] [address] [address] Shemar Armas Basophils/100 WBC (Bld) 0.6 % Normal 0.2-2.0 [facility] Comment on above: Performed By: #### C BC #### [facility] [address] [address] [address] Shemar Armas EO # 0.1 103/ul Normal 0.0-0.7 [facility] Comment on above: Performed By: #### C BC #### [facility] [address] [address] [address] Shemar Armas Eosinophils/100 WBC (Bld) 0.8 % Critically low 0.9-7.0 [facility] Comment on above: Performed By: #### C BC #### [facility] [address] [place] [address] Dr. Shemar Armas Erythrocyte distribution width (RBC) [Ratio] 14.6 % Normal 11.0-15.0 [facility] Comment on above: Performed By: #### C BC #### [facility] [address] [place] [address] Dr. Shemar Armas Hematocrit (Bld) [Volume fraction] 36.4 % Normal 36.0-48.0 [facility] Comment on above: Performed By: #### C BC #### [facility] [address] [place] [address] Dr. Shemar Armas Hemoglobin (Bld) [Mass/Vol] 12.2 g/dL Normal 12.0-16.0 [facility] Comment on above: Performed By: #### C BC #### [facility] [address] [place] [address] [address] Shemar Armas IG # 0.04 10e3/ul Critically high 0.00-0.03 [facility] Comment on above: Performed By: #### C BC #### [facility] [address] [place] [address] [address] Shemar Armas IG % 0.3 % Normal 0.0-0.5 [facility] Comment on above: Performed By: #### C BC #### [facility] [address] [place] [address] [address] Shemar Armas LYMPH # 2.1 103/ul Normal 1.2-3.8 [facility] Comment on above: Performed By: #### C BC #### [facility] [address] [place] [address] Dr. Shemar Armas Lymphocytes/100 WBC (Bld) 18.7 % Critically low 20.5-60.0 [facility] Comment on above: Performed By: #### C BC #### [facility] [address] [place] [address] Dr. Shemar Armas MANUAL DIFF REQ NO Normal [facility] Comment on above: Performed By: #### C BC #### [facility] [address] [place] [address] Dr. Shemar Armas MCH (RBC) [Entitic mass] 29.6 pg Normal 26.7-34.0 [facility] Comment on above: Performed By: #### C BC #### [facility] [address] [place] [address] Dr. Shemar Armas MCHC (RBC) [Mass/Vol] 33.5 g/dL Normal 29.9-35.2 [facility] Comment on above: Performed By: #### C BC #### [facility] [address] [place] [address] Dr. Shemar Armas MCV (RBC) [Entitic vol] 88.3 fL Normal 81.0-99.0 [facility] Comment on above: Performed By: #### C BC #### [facility] [address] [place] [address] Dr. Shemar Armas MONO # 0.7 103/ul Normal 0.3-0.8 [facility] Comment on above: Performed By: #### C BC #### [facility] [address] [place] [address] Dr. Shemar Armas Monocytes/100 WBC (Bld) 6.2 % Normal 1.7-12.0 [facility] Comment on above: Performed By: #### C BC #### [facility] [address] [place] [address] [address] Shemar Armas NEUT # 8.4 103/ul Critically high 1.4-6.5 [facility] Comment on above: Performed By: #### C BC #### [facility] [address] [place] [address] [address] Shemar Armas Neutrophils/100 WBC (Bld) 73.4 % Normal 43.0-75.0 [facility] Comment on above: Performed By: #### C BC #### [facility] [address] [address] [address] Shemar Armas Platelet mean volume (Bld) [Entitic vol] 9.2 fL Critically low 9.5-13.5 [facility] Comment on above: Performed By: #### C BC #### [facility] [address] [place] [address] [address] Shemar Armas PLT 331 103/ul Normal 150-450 [facility] Comment on above: Performed By: #### C BC #### [facility] [address] [address] [address] Shemar Armas RBC 4.12 106/ul Critically low 4.20-5.40 [facility] Comment on above: Performed By: #### C BC #### [facility] [address] [address] [address] Shemar Armas WBC 11.4 103/ul Critically high 4.0-11.0 [facility] Comment on above: Performed By: #### C BC #### [facility] [address] [address] [address] Shemar Armas PROF CHEM 8 (BAS METB)on Anion gap [Moles/Vol] 11.5 mmol/L Normal [facility] Comment on above: Performed By: #### B MP #### [facility] [address] [place] [address] [address] Shemar Armas Calcium [Mass/Vol] 8.9 mg/dL Normal 8.5-10.1 [facility] Comment on above: Performed By: #### B MP #### [facility] [address] [place] [address] [address] Shemar Armas Chloride [Moles/Vol] 102 mmol/L Normal 98-107 [facility] Comment on above: Performed By: #### B MP #### [facility] [address] [place] [address] [address] Shemar Armas CO2 [Moles/Vol] 29.6 mmol/L Normal 21.0-32.0 [facility] Comment on above: Performed By: #### B MP #### [facility] [address] [place] [address] [address] Shemar Armas Creatinine [Mass/Vol] 1.93 mg/dL Critically high 0.55-1.02 [facility] Comment on above: Performed By: #### B MP #### [facility] [address] [place] [address] [address] Shemar Armas EGFR-AF COLOMBIAN 37 mL/min/1.73m2 Critically low >=60 [facility] Comment on above: Performed By: #### B MP #### [facility] [address] [place] [address] [address] Shemar Armas EGFR-NON AF COLOMBIAN 30 mL/min/1.73m2 Critically low >=60 [facility] Comment on above: Performed By: #### B MP #### [facility] [address] [place] [address] [address] Shemar Armas Glucose [Mass/Vol] 93 mg/dL Normal 74-106 [facility] Comment on above: Performed By: #### B MP #### [facility] [address] [place] [address] [address] Shemar Armas Potassium [Moles/Vol] 4.1 mmol/L Normal 3.5-5.1 [facility] Comment on above: Performed By: #### B MP #### [facility] [address] [place] [address] [address] Shemar Armas Sodium [Moles/Vol] 139 mmol/L Normal 136-145 [facility] Comment on above: Performed By: #### B MP #### [facility] [address] [place] [address] Dr. Shemar Armas Urea nitrogen [Mass/Vol] 22.0 mg/dL Critically high 7.0-18 .0 [facility] Comment on above: Performed By: #### B MP #### [facility] [address] [place] [address] Dr. Shemar Armas Urea nitrogen/Creatinine [Mass ratio] 11.4 mg/mg Normal [facility] Comment on above: Performed By: #### B MP #### [facility] [address] [place] [address] Dr. Shemar Armas BNPon 06-29-2022 Natriuretic peptide B (Bld) [Mass/Vol] 159.0 pg/mL Normal <=450.0 [facility] Comment on above: Performed By: #### B MP #### [facility] [address] [place] [address] Dr. Shemar Armas CBC AUTO DIFFon 06-29-2022 BASO # 0.1 103/ul Normal 0.0-0.1 [facility] Comment on above: Performed By: #### P REG #### [facility] [address] [place] [address] Dr. Shemar Armas Basophils/100 WBC (Bld) 0.7 % Normal 0.2-2.0 [facility] Comment on above: Performed By: #### P REG #### [facility] [address] [place] [address] Dr. Shemar Armas EO # 0.1 103/ul Normal 0.0-0.7 [facility] Comment on above: Performed By: #### P REG #### [facility] [address] [place] [address] Dr. Shemar Armas Eosinophils/100 WBC (Bld) 1.4 % Normal 0.9-7.0 [facility] Comment on above: Performed By: #### P REG #### [facility] [address] [place] [address] Dr. Shemar Armas Erythrocyte distribution width (RBC) [Ratio] 14.5 % Normal 11.0-15.0 [facility] Comment on above: Performed By: #### P REG #### [facility] [address] [place] [address] [address] Shemar Armas Hematocrit (Bld) [Volume fraction] 35.4 % Critically low 36.0-48.0 [facility] Comment on above: Performed By: #### P REG #### [facility] [address] [place] [address] Dr. Shemar Armas Hemoglobin (Bld) [Mass/Vol] 11.9 g/dL Critically low 12.0-16.0 [facility] Comment on above: Performed By: #### P REG #### [facility] [address] [place] [address] Dr. Shemar Armas IG # 0.05 10e3/ul Critically high 0.00-0.03 [facility] Comment on above: Performed By: #### P REG #### [facility] [address] [place] [address] Dr. Shemar Armas IG % 0.5 % Normal 0.0-0.5 [facility] Comment on above: Performed By: #### P REG #### [facility] [address] [place] [address] Dr. Shemar Armas LYMPH # 1.7 103/ul Normal 1.2-3.8 [facility] Comment on above: Performed By: #### P REG #### [facility] [address] [place] [address] Dr. Shemar Armas Lymphocytes/100 WBC (Bld) 17.3 % Critically low 20.5-60.0 [facility] Comment on above: Performed By: #### P REG #### [facility] [address] [place] [address] Dr. Shemar Armas MANUAL DIFF REQ NO Normal [facility] Comment on above: Performed By: #### P REG #### [facility] [address] [place] [address] Dr. Shemar Armas MCH (RBC) [Entitic mass] 29.5 pg Normal 26.7-34.0 [facility] Comment on above: Performed By: #### P REG #### [facility] [address] [address] [address] Shemar Armas MCHC (RBC) [Mass/Vol] 33.6 g/dL Normal 29.9-35.2 [facility] Comment on above: Performed By: #### P REG #### [facility] [address] [place] [address] [address] Shemar Armas MCV (RBC) [Entitic vol] 87.8 fL Normal 81.0-99.0 [facility] Comment on above: Performed By: #### P REG #### [facility] [address] [place] [address] [address] Shemar Armas MONO # 0.6 103/ul Normal 0.3-0.8 [facility] Comment on above: Performed By: #### P REG #### [facility] [address] [place] [address] [address] Shemar Armas Monocytes/100 WBC (Bld) 6.3 % Normal 1.7-12.0 [facility] Comment on above: Performed By: #### P REG #### [facility] [address] [place] [address] [address] Shemar Armas NEUT # 7.1 103/ul Critically high 1.4-6.5 [facility] Comment on above: Performed By: #### P REG #### [facility] [address] [place] [address] [address] Shemar Armas Neutrophils/100 WBC (Bld) 73.8 % Normal 43.0-75.0 [facility] Comment on above: Performed By: #### P REG #### [facility] [address] [place] [address] [address] Shemar Armas Platelet mean volume (Bld) [Entitic vol] 9.4 fL Critically low 9.5-13.5 [facility] Comment on above: Performed By: #### P REG #### [facility] [address] [place] [address] [address] Shemar Armas PLT 350 103/ul Normal 150-450 [facility] Comment on above: Performed By: #### P REG #### [facility] [address] [place] [address] [address] Shemar Armas RBC 4.03 106/ul Critically low 4.20-5.40 [facility] Comment on above: Performed By: #### P REG #### [facility] [address] [place] [address] [address] Shemar Armas WBC 9.6 103/ul Normal 4.0-11.0 [facility] Comment on above: Performed By: #### P REG #### [facility] [address] [place] [address] [address] Shemar Armas BASO # 0.0 103/ul Normal 0.0-0.1 [facility] Comment on above: Performed By: #### C BC #### [facility] [address] [place] [address] Dr. Shemar Armas Basophils/100 WBC (Bld) 0.6 % Normal 0.2-2.0 [facility] Comment on above: Performed By: #### C BC #### [facility] [address] [place] [address] Dr. Shemar Armas EO # 0.1 103/ul Normal 0.0-0.7 [facility] Comment on above: Performed By: #### C BC #### [facility] [address] [place] [address] Dr. Shemar Armas Eosinophils/100 WBC (Bld) 1.2 % Normal 0.9-7.0 [facility] Comment on above: Performed By: #### C BC #### [facility] [address] [place] [address] Dr. Shemar Armas Erythrocyte distribution width (RBC) [Ratio] 14.4 % Normal 11.0-15.0 [facility] Comment on above: Performed By: #### C BC #### [facility] [address] [place] [address] Dr. Shemar Armas Hematocrit (Bld) [Volume fraction] 29.3 % Critically low 36.0-48.0 [facility] Comment on above: Performed By: #### C BC #### [facility] [address] [address] [address] Shemar Armas Hemoglobin (Bld) [Mass/Vol] 9.9 g/dL Critically low 12.0-16.0 [facility] Comment on above: Performed By: #### C BC #### [facility] [address] [address] [address] Shemar Armas IG # 0.04 10e3/ul Critically high 0.00-0.03 [facility] Comment on above: Performed By: #### C BC #### [facility] [address] [address] [address] Shemar Armas IG % 0.6 % Critically high 0.0-0.5 [facility] Comment on above: Performed By: #### C BC #### [facility] [address] [address] [address] Shemar Armas LYMPH # 1.5 103/ul Normal 1.2-3.8 [facility] Comment on above: Performed By: #### C BC #### [facility] [address] [address] [address] Shemar Armas Lymphocytes/100 WBC (Bld) 20.1 % Critically low 20.5-60.0 [facility] Comment on above: Performed By: #### C BC #### [facility] [address] [place] [address] Dr. Shemar Armas MANUAL DIFF REQ NO Normal [facility] Comment on above: Performed By: #### C BC #### [facility] [address] [address] [address] Shemar Armas MCH (RBC) [Entitic mass] 29.9 pg Normal 26.7-34.0 [facility] Comment on above: Performed By: #### C BC #### [facility] [address] [address] [address] Shemar Armas MCHC (RBC) [Mass/Vol] 33.8 g/dL Normal 29.9-35.2 [facility] Comment on above: Performed By: #### C BC #### [facility] [address] [address] [address] Shemar Armas MCV (RBC) [Entitic vol] 88.5 fL Normal 81.0-99.0 [facility] Comment on above: Performed By: #### C BC #### [facility] [address] [address] [address] Shemar Armas MONO # 0.5 103/ul Normal 0.3-0.8 [facility] Comment on above: Performed By: #### C BC #### [facility] [address] [place] [address] Dr. Shemar Armas Monocytes/100 WBC (Bld) 7.5 % Normal 1.7-12.0 [facility] Comment on above: Performed By: #### C BC #### [facility] [address] [place] [address] Dr. Shemar Armas NEUT # 5.1 103/ul Normal 1.4-6.5 [facility] Comment on above: Performed By: #### C BC #### [facility] [address] [place] [address] Dr. Shemar Armas Neutrophils/100 WBC (Bld) 70.0 % Normal 43.0-75.0 [facility] Comment on above: Performed By: #### C BC #### [facility] [address] [place] [address] Dr. Shemar Armas Platelet mean volume (Bld) [Entitic vol] 9.2 fL Critically low 9.5-13.5 [facility] Comment on above: Performed By: #### C BC #### [facility] [address] [place] [address] Dr. Shemar Armas PLT 225 103/ul Normal 150-450 [facility] Comment on above: Performed By: #### C BC #### [facility] [address] [place] [address] Dr. Shemar Armas RBC 3.31 106/ul Critically low 4.20-5.40 [facility] Comment on above: Performed By: #### C BC #### [facility] [address] [place] [address] Dr. Shemar Armas WBC 7.2 103/ul Normal 4.0-11.0 [facility] Comment on above: Performed By: #### C BC #### [facility] [address] [place] [address] Dr. Shemar Armas IRONon 06-29-2022 Iron [Mass/Vol] 110.0 ug/dL Normal 50.0-170.0 [facility] Comment on above: Performed By: #### P REG #### [facility] [address] [place] [address] Dr. Shemar Armas PROF 14(COMP METB)on 022 Albumin [Mass/Vol] 4.0 g/dL Normal 3.4-5.0 [facility] Comment on above: Performed By: #### P REG #### [facility] [address] [place] [address] Dr. Shemar Armas Albumin/Globulin [Mass ratio] 1.1 {ratio} Normal [facility] Comment on above: Performed By: #### P REG #### [facility] [address] [place] [address] Dr. Shemar Armas ALP [Catalytic activity/Vol] 57 U/L Normal 46-116 [facility] Comment on above: Performed By: #### P REG #### [facility] [address] [place] [address] Dr. Shemar Armas ALT [Catalytic activity/Vol] 26 U/L Normal 14-59 [facility] Comment on above: Performed By: #### P REG #### [facility] [address] [place] [address] Dr. Shemar Armas Anion gap [Moles/Vol] 10.0 mmol/L Normal Th [facility] Comment on above: Performed By: #### P REG #### [facility] [address] [place] [address] Dr. Shemar Armas AST [Catalytic activity/Vol] 15 U/L Normal 15-37 [facility] Comment on above: Performed By: #### P REG #### [facility] [address] [place] [address] Dr. Shemar Armas Bilirubin [Mass/Vol] 0.2 mg/dL Normal 0.2-1.0 [facility] Comment on above: Performed By: #### P REG #### [facility] [address] [address] [address] Shemar Armas Calcium [Mass/Vol] 8.8 mg/dL Normal 8.5-10.1 [facility] Comment on above: Performed By: #### P REG #### [facility] [address] [address] [address] Shemar Armas Chloride [Moles/Vol] 105 mmol/L Normal 98-107 [facility] Comment on above: Performed By: #### P REG #### [facility] [address] [address] [address] Shemar Armas CO2 [Moles/Vol] 26.8 mmol/L Normal 21.0-32.0 [facility] Comment on above: Performed By: #### P REG #### [facility] [address] [address] [address] Shemar Armas Creatinine [Mass/Vol] 1.60 mg/dL Critically high 0.55-1.02 [facility] Comment on above: Performed By: #### P REG #### [facility] [address] [place] [address] Dr. Shemar Armas EGFR-AF COLOMBIAN 46 mL/min/1.73m2 Critically low >=60 [facility] Comment on above: Performed By: #### P REG #### [facility] [address] [address] [address] Shemar Armas EGFR-NON AF COLOMBIAN 38 mL/min/1.73m2 Critically low >=60 [facility] Comment on above: Performed By: #### P REG #### [facility] [address] [place] [address] Dr. Shemar Armas Globulin (S) [Mass/Vol] 3.5 g/dL Normal [facility] Comment on above: Performed By: #### P REG #### [facility] [address] [place] [address] Dr. Shemar Armas Glucose [Mass/Vol] 98 mg/dL Normal 74-106 [facility] Comment on above: Performed By: #### P REG #### [facility] [address] [address] [address] Shemar Armas Potassium [Moles/Vol] 3.8 mmol/L Normal 3.5-5.1 [facility] Comment on above: Performed By: #### P REG #### [facility] [address] [address] [address] Shemar Armas Protein [Mass/Vol] 7.5 g/dL Normal 6.4-8.2 [facility] Comment on above: Performed By: #### P REG #### [facility] [address] [place] [address] Dr. Shemar Armas Sodium [Moles/Vol] 138 mmol/L Normal 136-145 [facility] Comment on above: Performed By: #### P REG #### [facility] [address] [place] [address] Dr. Shemar Armas Urea nitrogen [Mass/Vol] 24.0 mg/dL Critically high 7.0-18 .0 [facility] Comment on above: Performed By: #### P REG #### [facility] [address] [place] [address] Dr. Shemar Armas Urea nitrogen/Creatinine [Mass ratio] 15.0 mg/mg Normal [facility] Comment on above: Performed By: #### P REG #### [facility] [address] [address] [address] Shemar Armas Albumin [Mass/Vol] 3.3 g/dL Critically low 3.4-5.0 [facility] Comment on above: Performed By: #### B MP #### [facility] [address] [place] [address] Dr. Shemar Armas Albumin/Globulin [Mass ratio] 1.1 {ratio} Normal [facility] Comment on above: Performed By: #### B MP #### [facility] [address] [address] [address] Shemar Armas ALP [Catalytic activity/Vol] 55 U/L Normal 46-116 [facility] Comment on above: Performed By: #### B MP #### [facility] [address] [address] [address] Shemar Armas ALT [Catalytic activity/Vol] 21 U/L Normal 14-59 [facility] Comment on above: Performed By: #### B MP #### [facility] [address] [address] [address] Shemar Armas Anion gap [Moles/Vol] 8.1 mmol/L Normal [facility] Comment on above: Performed By: #### B MP #### [facility] [address] [address] [address] Shemar Armas AST [Catalytic activity/Vol] 13 U/L Critically low 15-37 [facility] Comment on above: Performed By: #### B MP #### [facility] [address] [address] [address] Shemar Armas Bilirubin [Mass/Vol] 0.1 mg/dL Critically low 0.2-1.0 [facility] Comment on above: Performed By: #### B MP #### [facility] [address] [address] [address] Shemar Armas Calcium [Mass/Vol] 7.5 mg/dL Critically low 8.5-10.1 [facility] Comment on above: Performed By: #### B MP #### [facility] [address] [address] [address] Shemar Armas Chloride [Moles/Vol] 107 mmol/L Normal 98-107 [facility] Comment on above: Performed By: #### B MP #### [facility] [address] [address] [address] Shemar Armas CO2 [Moles/Vol] 24.5 mmol/L Normal 21.0-32.0 [facility] Comment on above: Performed By: #### B MP #### [facility] [address] [address] [address] Sehmar Armas Creatinine [Mass/Vol] 2.03 mg/dL Critically high 0.55-1.02 [facility] Comment on above: Performed By: #### B MP #### [facility] [address] [address] [address] Shemar Armas EGFR-AF COLOMBIAN 35 mL/min/1.73m2 Critically low >=60 [facility] Comment on above: Performed By: #### B MP #### [facility] [address] [address] [address] Shemar Armas EGFR-NON AF COLOMBIAN 29 mL/min/1.73m2 Critically low >=60 [facility] Comment on above: Performed By: #### B MP #### [facility] [address] [address] [address] Shemar Armas Globulin (S) [Mass/Vol] 2.9 g/dL Normal [facility] Comment on above: Performed By: #### B MP #### [facility] [address] [address] [address] Shemar Armas Glucose [Mass/Vol] 111 mg/dL Critically high 74-106 [facility] Comment on above: Performed By: #### B MP #### [facility] [address] [address] [address] Shemar Armas Potassium [Moles/Vol] 3.6 mmol/L Normal 3.5-5.1 [facility] Comment on above: Performed By: #### B MP #### [facility] [address] [address] [address] Shemar Armas Protein [Mass/Vol] 6.2 g/dL Critically low 6.4-8.2 [facility] Comment on above: Performed By: #### B MP #### [facility] [address] [address] [address] Shemar Armas Sodium [Moles/Vol] 136 mmol/L Normal 136-145 [facility] Comment on above: Performed By: #### B MP #### [facility] [address] [address] [address] Shemar Armas Urea nitrogen [Mass/Vol] 28.0 mg/dL Critically high 7.0-18 .0 [facility] Comment on above: Performed By: #### B MP #### [facility] [address] [place] [address] Dr. Shemar Armas Urea nitrogen/Creatinine [Mass ratio] 13.8 mg/mg Normal [facility] Comment on above: Performed By: #### B MP #### [facility] [address] [place] [address] Dr. Shemar Armas TROPONIN, HIGH SENSITIVITYon 06-29-2022 HSTROP 4.8 pg/mL Normal 4.0-51.3 [facility] Comment on above: Result Comment: CUT- OFF POINTS HAVE BEEN ESTABLISHED BASED ON THE FOURTH UNIVERSAL DEFINITIONS OF MYOCARDIAL INFARCTION. THE UPPER REFERENCE LIMIT (URL) OF TROPONIN, DEFINED THE 99TH PERCENTILE OF cTnI DISTRIBUTION IN A REFERENCE POPULATION, HAS BEEN CONFIRMED THE DECISION THRESHOLD FOR TX DIAGNOSIS. Performed By: #### B MP #### [facility] [address] [place] [address] Dr. Shemar Armas INSULINon 04-27-2022 Insulin 15.8 uIU/mL Normal 2.6-24.9 [facility] Comment on above: Performed By: #### I NSULIN #### [facility] [address] [place] [address] Dr. Shemar Armas T4, T3U, FTI LABCORPon 04-27 Free Thyroxine Index 3.1 Normal 1.2-4.9 [facility] Comment on above: Performed By: #### T HYLC #### [facility] [address] [place] [address] Dr. Shemar Armas T3 Uptake 31 % Normal 24-39 [facility] Comment on above: Performed By: #### T HYLC #### [facility] [address] [place] [address] Dr. Shemar Armas T4 [Mass/Vol] 10.1 ug/dL Normal 4.5-12.0 [facility] Comment on above: Performed By: #### T HYLC #### [facility] [address] [place] [address] Dr. Shemar Armas CBC AUTO DIFFon 04-26-2022 BASO # 0.1 103/ul Normal 0.0-0.1 [facility] Comment on above: Performed By: #### B MP #### [facility] [address] [address] [address] Shemar Armas Basophils/100 WBC (Bld) 0.7 % Normal 0.2-2.0 [facility] Comment on above: Performed By: #### B MP #### [facility] [address] [place] [address] Dr. Shemar Armas EO # 0.1 103/ul Normal 0.0-0.7 [facility] Comment on above: Performed By: #### B MP #### [facility] [address] [place] [address] Dr. Shemar Armas Eosinophils/100 WBC (Bld) 0.9 % Normal 0.9-7.0 [facility] Comment on above: Performed By: #### B MP #### [facility] [address] [place] [address] Dr. Shemar Armas Erythrocyte distribution width (RBC) [Ratio] 13.7 % Normal 11.0-15.0 [facility] Comment on above: Performed By: #### B MP #### [facility] [address] [place] [address] Dr. Shemar Armas Hematocrit (Bld) [Volume fraction] 41.8 % Normal 36.0-48.0 [facility] Comment on above: Performed By: #### B MP #### [facility] [address] [place] [address] Dr. Shemar Armas Hemoglobin (Bld) [Mass/Vol] 13.9 g/dL Normal 12.0-16.0 [facility] Comment on above: Performed By: #### B MP #### [facility] [address] [place] [address] Dr. Shemar Armas IG # 0.03 10e3/ul Normal 0.00-0.03 [facility] Comment on above: Performed By: #### B MP #### [facility] [address] [place] [address] Dr. Shemar Armas IG % 0.3 % Normal 0.0-0.5 [facility] Comment on above: Performed By: #### B MP #### [facility] [address] [place] [address] Dr. Shemar Armas LYMPH # 1.8 103/ul Normal 1.2-3.8 [facility] Comment on above: Performed By: #### B MP #### [facility] [address] [place] [address] Dr. Shemar Armas Lymphocytes/100 WBC (Bld) 21.0 % Normal 20.5-60.0 [facility] Comment on above: Performed By: #### B MP #### [facility] [address] [place] [address] Dr. Shemar Armas MANUAL DIFF REQ NO Normal [facility] Comment on above: Performed By: #### B MP #### [facility] [address] [place] [address] Dr. Shemar Armas MCH (RBC) [Entitic mass] 28.8 pg Normal 26.7-34.0 [facility] Comment on above: Performed By: #### B MP #### [facility] [address] [place] [address] Dr. Shemar Armas MCHC (RBC) [Mass/Vol] 33.3 g/dL Normal 29.9-35.2 [facility] Comment on above: Performed By: #### B MP #### [facility] [address] [place] [address] Dr. Shemar Armas MCV (RBC) [Entitic vol] 86.7 fL Normal 81.0-99.0 [facility] Comment on above: Performed By: #### B MP #### [facility] [address] [place] [address] Dr. Shemar Armas MONO # 0.7 103/ul Normal 0.3-0.8 [facility] Comment on above: Performed By: #### B MP #### [facility] [address] [place] [address] Dr. Shemar Armas Monocytes/100 WBC (Bld) 7.9 % Normal 1.7-12.0 [facility] Comment on above: Performed By: #### B MP #### [facility] [address] [address] [address] Shemar Armas NEUT # 6.0 103/ul Normal 1.4-6.5 [facility] Comment on above: Performed By: #### B MP #### [facility] [address] [address] [address] Shemar Armas Neutrophils/100 WBC (Bld) 69.2 % Normal 43.0-75.0 [facility] Comment on above: Performed By: #### B MP #### [facility] [address] [place] [address] Dr. Shemar Armas Platelet mean volume (Bld) [Entitic vol] 9.7 fL Normal 9.5-13.5 [facility] Comment on above: Performed By: #### B MP #### [facility] [address] [place] [address] Dr. Shemar Armas PLT 322 103/ul Normal 150-450 [facility] Comment on above: Performed By: #### B MP #### [facility] [address] [place] [address] Dr. Shemar Armas RBC 4.82 106/ul Normal 4.20-5.40 [facility] Comment on above: Performed By: #### B MP #### [facility] [address] [place] [address] Dr. Shemar Armas WBC 8.7 103/ul Normal 4.0-11.0 [facility] Comment on above: Performed By: #### B MP #### [facility] [address] [place] [address] Dr. Shemar Armas GLYCOHEMOGLOBIN A1Con 2021 ADA RECOMMENDATION SEE BELOW Normal [facility] Comment on above: Result Comment: ADA RECOMMENDED LIMIT 4.0 - 6.0 ADA THERAPEUTIC TARGET < 7.0 ACTION SUGGESTED > 7.0 Performed By: #### P REG #### [facility] [address] [place] [address] Dr. Shemar Armas Glucose [Mass/Vol] 108 mg/dL Normal [facility] Comment on above: Performed By: #### P REG #### [facility] [address] [address] [address] Shemar Armas HbA1c (Bld) [Mass fraction] 5.4 % Normal 4.5-6.2 [facility] Comment on above: Performed By: #### P REG #### [facility] [address] [address] [address] Shemar Armas IRONon 04-26-2022 Iron [Mass/Vol] 55.0 ug/dL Normal 50.0-170.0 [facility] Comment on above: Performed By: #### I CYNDI #### [facility] [address] [address] [address] Shemar Armas LIPID PROFILEon 04-26-2022 CHOL-HDL RATIO NORM SEE BELOW Normal [facility] Comment on above: Result Comment: 3.3 - 4.4 LOW RISK 4.4 - 7.1 AVERAGE RISK 7.1 - 11.0 MODERATE RISK >11.0 HIGH RISK Performed By: #### P REG #### [facility] [address] [place] [address] Dr. Shemar Armas Cholesterol [Mass/Vol] 205 mg/dL Critically high <=200 [facility] Comment on above: Performed By: #### P REG #### [facility] [address] [place] [address] Dr. Shemar Armas Cholesterol in HDL [Mass/Vol] 57 mg/dL Normal 40-60 [facility] Comment on above: Performed By: #### P REG #### [facility] [address] [address] [address] Shemar Armas Cholesterol in LDL [Mass/Vol] 126.8 mg/dL Normal [facility] Comment on above: Performed By: #### P REG #### [facility] [address] [place] [address] Dr. Shemar Armas Cholesterol.total/Choles terol in HDL [Mass ratio] 3.6 {ratio} Normal [facility] Comment on above: Performed By: #### P REG #### [facility] [address] [address] [address] Shemar Armas HDL NORMAL > or = 60 mg/dl - LOW CARDIOVASCULAR RISK <40 mg/dl - HIGH CARDIOVASCULAR RISK Normal [facility] Comment on above: Performed By: #### P REG #### [facility] [address] [address] [address] Shemar Armas LDL CALC NORMAL SEE BELOW Normal [facility] Comment on above: Result Comment: <100 mg/dl OPTIMAL 100 - 129 mg/dl NEAR OR ABOVE OPTIMAL 130 - 159 mg/dl BORDERLINE HIGH 160 - 189 mg/dl HIGH >190 mg/dl VERY HIGH Performed By: #### P REG #### [facility] [address] [address] [address] Shemar Armas Triglyceride [Mass/Vol] 106 mg/dL Normal <=150 [facility] Comment on above: Performed By: #### P REG #### [facility] [address] [address] [address] Shemar Armas VLDL CALC 21.2 mg/dL Normal [facility] Comment on above: Performed By: #### P REG #### [facility] [address] [address] [address] Shemar Armas PROF 14(COMP METB)on 022 Albumin [Mass/Vol] 4.3 g/dL Normal 3.4-5.0 [facility] Comment on above: Performed By: #### T SH, CMP, LIPID #### [facility] [address] [address] [address] Shemar Armas Albumin/Globulin [Mass ratio] 1.2 {ratio} Normal [facility] Comment on above: Performed By: #### T SH, CMP, LIPID #### [facility] [address] [address] [address] Shemar Armas ALP [Catalytic activity/Vol] 62 U/L Normal 46-116 [facility] Comment on above: Performed By: #### T SH, CMP, LIPID #### [facility] [address] [address] [address] Shemar Armas ALT [Catalytic activity/Vol] 34 U/L Normal 14-59 [facility] Comment on above: Performed By: #### T SH, CMP, LIPID #### [facility] [address] [address] [address] Shemar Armas Anion gap [Moles/Vol] 13.7 mmol/L Normal [facility] Comment on above: Performed By: #### T SH, CMP, LIPID #### [facility] [address] [address] [address] Shemar Armas AST [Catalytic activity/Vol] 22 U/L Normal 15-37 [facility] Comment on above: Performed By: #### T SH, CMP, LIPID #### [facility] [address] [place] [address] Dr. Shemar Armas Bilirubin [Mass/Vol] 0.3 mg/dL Normal 0.2-1.0 [facility] Comment on above: Performed By: #### T SH, CMP, LIPID #### [facility] [address] [place] [address] Dr. Shemar Armas Calcium [Mass/Vol] 9.1 mg/dL Normal 8.5-10.1 [facility] Comment on above: Performed By: #### T SH, CMP, LIPID #### [facility] [address] [place] [address] Dr. Shemar Armas Chloride [Moles/Vol] 98 mmol/L Normal 98-107 [facility] Comment on above: Performed By: #### T SH, CMP, LIPID #### [facility] [address] [address] [address] Shemar Armas CO2 [Moles/Vol] 29.9 mmol/L Normal 21.0-32.0 [facility] Comment on above: Performed By: #### T SH, CMP, LIPID #### [facility] [address] [place] [address] Dr. Shemar Armas Creatinine [Mass/Vol] 1.27 mg/dL Critically high 0.55-1.02 [facility] Comment on above: Performed By: #### T SH, CMP, LIPID #### [facility] [address] [place] [address] Dr. Shemar Armas EGFR-AF COLOMBIAN 59 mL/min/1.73m2 Critically low >=60 [facility] Comment on above: Performed By: #### T SH, CMP, LIPID #### [facility] [address] [place] [address] Dr. Shemar Armas EGFR-NON AF COLOMBIAN 49 mL/min/1.73m2 Critically low >=60 [facility] Comment on above: Performed By: #### T SH, CMP, LIPID #### [facility] [address] [place] [address] Dr. Shemar Armas Globulin (S) [Mass/Vol] 3.6 g/dL Normal [facility] Comment on above: Performed By: #### T SH, CMP, LIPID #### [facility] [address] [place] [address] Dr. Shemar Armas Glucose [Mass/Vol] 92 mg/dL Normal 74-106 [facility] Comment on above: Performed By: #### T SH, CMP, LIPID #### [facility] [address] [place] [address] Dr. Shemar Armas Potassium [Moles/Vol] 3.6 mmol/L Normal 3.5-5.1 [facility] Comment on above: Performed By: #### T SH, CMP, LIPID #### [facility] [address] [place] [address] Dr. Shemar Armas Protein [Mass/Vol] 7.9 g/dL Normal 6.4-8.2 [facility] Comment on above: Performed By: #### T SH, CMP, LIPID #### [facility] [address] [place] [address] Dr. Shemar Armas Sodium [Moles/Vol] 138 mmol/L Normal 136-145 [facility] Comment on above: Performed By: #### T SH, CMP, LIPID #### [facility] [address] [place] [address] Dr. Shemar Armas Urea nitrogen [Mass/Vol] 16.0 mg/dL Normal 7.0-18.0 [facility] Comment on above: Performed By: #### T SH, CMP, LIPID #### [facility] [address] [address] [address] Shemar Armas Urea nitrogen/Creatinine [Mass ratio] 12.6 mg/mg Normal [facility] Comment on above: Performed By: #### T SH, CMP, LIPID #### [facility] [address] [address] [address] Shemar Armas TSHon 04-26-2022 TSH 3.031 uIU/mL Normal 0.358-3.740 [facility] Comment on above: Performed By: #### P REG #### [facility] [address] [address] [address] Shemar Armas Vital Signs Date Time Vital Sign Value Performing Clinician Facility 10-02-2022 16:00-0500 Body height 160.02 cm [employer] Other [employer] Other 10-02-2022 16:00-0500 Body mass index (BMI) [Ratio] 42.69 kg/m2 [employer] Other [employer] Other 10-02-2022 16:00-0500 Body weight 109.32 kg [facility]nie [employer] Other [employer] Other 09-28-2022 15:55-0500 Diastolic blood pressure 60 mm[Hg] MD Donnell Brooke Work Phone: [facility] 09-28-2022 15:55-0500 Heart rate 76 /min MD Donnell Brooke Work Phone: [facility] 09-28-2022 15:55-0500 Respiratory rate 16 /min MD Donnell Brooke Work Phone: [facility] 09-28-2022 15:55-0500 SaO2% (BldA) [Mass fraction] 98 % MD Donnell Brooke Work Phone: [facility] 09-28-2022 15:55-0500 Systolic blood pressure 123 mm[Hg] MD Donnell Brooke Work Phone: [facility] 09-28-2022 14:33-0500 Body height 162.56 cm MD Donnell Brooke Work Phone: [facility] 09-28-2022 14:33-0500 Body mass index (BMI) [Ratio] 41.6 kg/m2 MD Donnell Brooke Work Phone: [facility] 09-28-2022 14:33-0500 Body weight 110 kg MD Donnell Brooke Work Phone: [facility] 09-28-2022 12:25-0500 Body temperature 98 [degF] MD Donnell Brooke Work Phone: [facility] 07-30-2022 15:29-0500 Blood Pressure Location Sanjay GEMMAL [facility] 07-30-2022 15:29-0500 Diastolic blood pressure 83 mm[Hg] Sanjay MENENDEZL [facility] 07-30-2022 15:29-0500 Heart rate 75 /min Sanjay NILL [facility] 07-30-2022 15:29-0500 Respiratory rate 16 /min Sanjay NILL [facility] 07-30-2022 15:29-0500 Systolic blood pressure 124 mm[Hg] Sanjay NILL [facility] Encounters Encounter Date Encounter Type Care Provider Facility Start: 06-12-2023 End: 06-12-2023 ambulatory Bonnie Jeffrey Other [employer] Other Start: 06-12-2023 Office outpatient vi sit 15 minutes [facility] Start: 03-20-2023 End: 03-20-2023 ambulatory Bonnie Jeffrey Other [employer] Other Start: 03-20-2023 Office outpatient vi sit 15 minutes Bonnie Calvey [facility] Start: 01-24-2023 End: 01-24-2023 ambulatory Bonnie Calvey Other [employer] Other Start: 01-24-2023 Office outpatient vi sit 15 minutes Bonnie Calvey [facility] Start: 12-11-2022 End: 12-11-2022 ambulatory Bonnie R Calvey Facility:[facility] Start: 11-13-2022 End: 11-13-2022 ambulatory Bonnie R Calvey Facility:[facility] Start: 11-13-2022 End: 11-13-2022 Patient encounter procedure MD Donnell Brooke Work Phone: [facility] Start: 11-13-2022 End: 11-13-2022 ambulatory MD Donnell Brooke Work Phone: [facility] Work Phone: Start: 11-13-2022 Postop follow up vis it related to original px Bonnie Calvey [facility] Start: 10-23-2022 End: 10-23-2022 ambulatory Bonnie Calvey Other [employer] Other Start: 10-23-2022 Postop follow up vis it related to original px Bonnie Calvey [facility] Start: 10-10-2022 End: 10-11-[address] DONNELL BROOKE . Facility: Start: 10-09-2022 End: 10-09-2022 ambulatory Bonnie Calvey Other [employer] Other Start: 10-09-2022 Postop follow up vis it related to original px Bonnie Calvey [facility] Start: 10-02-2022 End: 10-02-2022 ambulatory Bonnie Calvey Other [employer] Other Start: 10-02-2022 Postop follow up vis it related to original px Bonnie Jeffrey [facility] Start: 10-02-2022 Telephone encounter Bonnie Jeffrey [facility] Start: 09-28-2022 End: 09-28-2022 ambulatory Bonnie Jeffrey Facility:[facility] Start: 09-28-2022 End: 09-28-2022 Admission to same day surgery center MD Donnell Brooke Work Phone: [facility] [place] Start: 09-26-2022 End: 09-26-2022 ambulatory Bonnie Edwige [employer] Facility:[facility] Start: 09-26-2022 End: 09-26-2022 ambulatory MD Donnell Brooke Work Phone: [facility] Work Phone: Start: 09-26-2022 End: 09-26-2022 Patient encounter procedure MD Donnell Brooke Work Phone: [facility] Work Phone: Start: 09-25-2022 End: 09-25-[address] DONNELL BROOKE . Facility: Start: 09-21-2022 ambulatory Sanjay ZUÑIGA Facility :[facility] Start: 09-14-2022 Encounter for preprocedural laboratory examination DR SANJAY ZUÑIGA . [facility] Start: 09-12-2022 End: 09-13-2022 ambulatory Sanjay ZUÑIGA Facility:[id number] Start: 09-11-2022 End: 10-06-[address] DONNELL BROOKE . Facility: Start: 09-07-2022 End: 09-08-[address] DONNELL BROOKE . Facility: Start: 09-07-2022 End: 09-08-2022 Encounter for preprocedural laboratory examination DR DONNELL BROOKE . Facility: Start: 07-30-2022 End: 07-31-2022 ambulatory Donnell Brooke PROVIDER Facility: [facility] Start: 07-30-2022 End: 07-30-2022 Patient encounter procedure Sanjay ZUÑIGA [facility] Start: 07-10-2022 ambulatory Donnell Brooke PROVIDER Facility:[facility] Start: 07-09-2022 End: 07-10-[address] [...] abnormal findings DR DONNELL BROOKE . [facility] Start: 04-26-2022 End: 04-27-[address] [...] Date Care Activity Detail Author Start: 09-28-2022 [facility] Start: 09-28-2022 [facility] Patient referral [facility] Work Phone: Immunizations Immunization Date Immunization Notes Care Provider Josue cheema NEGATED: Highlighted row has not occurred!07-30-2022 influenza virus vaccine, unspecified formulation Sanjay ZUÑIGA [facility] [place] Payers Date Payer Category Payer Self-pay 2022 Unknown [id number] 1990 Unknown [id number] 2.16.8 40.1.264771.3.579.2.727 1990 Unknown [id number] 2.16.8 40.1.950839.3.579.2.727 1990 Unknown [id number] 2.16.8 40.1.449428.3.579.2.727 1990 Unknown [id number] 2.16.8 40.1.241508.3.579.2.727 1990 Unknown [id number] 2.16.8 40.1.938104.3.579.2.727 1990 Unknown [id number] 2.16.84 0.1.998692.3.579.2.593 1990 Unknown [id number] 2.16.84 0.1.255736.3.579.2.593 1990 Unknown [id number] 2.16.84 0.1.283975.3.579.2.593 1990 Unknown [id number] 2.16.84 0.1.677049.3.579.2.593 1990 Unknown [id number] 2.16.84 0.1.111206.3.579.2.593 1990 Unknown [id number] 2.16.84 0.1.908977.3.579.2.593 1990 Unknown [id number] 2.16.84 0.1.276872.3.579.2.593 1990 Unknown [id number] 2.16.84 0.1.327536.3.579.2.593 1990 Unknown [id number] 2.16.84 0.1.010933.3.579.2.593 1990 Unknown [id number] 2.16.84 0.1.077938.3.579.2.593 1990 Unknown [id number] 2.16.84 0.1.370723.3.579.2.593 1990 Unknown [id number] 2.16.84 0.1.368673.3.579.2.593 1959 Unknown [id number] [id number] Unknown [id number] 2.16.8 40.1.378932.3.579.2.531 Unknown [id number] 2.16.8 40.1.855753.3.579.2.531 Unknown [id number] 2.16.8 40.1.786363.3.579.2.531 Unknown [id number] 2.16.8 40.1.093104.3.579.2.531 Social History Date Type Detail Facility Start: 07-30-2022 End: 09-28-2022 Tobacco smoking status Never smoked tobacco (finding) [facility] Tobacco smoking status Never [facility] Sex Assigned At Female [facility] Start: 1990 Sex Assigned At Female [facility] Goals Date Patient Goal Desired Activity /State Functional Status Date Assessment Result Facility 07-30-2022 Functional Status N/A [facility] Clinical Notes 08-20-2022 to 06-12-2023 Note [...] Other specified postprocedural states (ICD-10 - Z98.890) [employer] Other 07-26-2023 Evaluation note* Encounter Date Diagnosis Assessment Notes Treatment Notes Treatment Clinical Notes Feb, Crushing injury of right thumb, subsequent encounter (ICD-10 - S67.01XD) Patient instructed to keep cuticle moisturized and pushed back. Activity as tolerated Feb, Injury of nail bed o f finger of right hand, subsequent encounter (ICD-10 - S69.91XD) Feb, Other specified postprocedural states (ICD-10 - Z98.890) [employer] Other 06-01-2023 Evaluation note* Encounter Date Diagnosis [...] Other specified postprocedural states (ICD-10 - Z98.890) [employer] Other 03-21-2023 Evaluation note* Encounter Date Diagnosis [...] Other specified postprocedural states (ICD-10 - Z98.890) [employer] Other 02-28-2023 Evaluation note* Encounter Date Diagnosis Assessment Notes Treatment Notes Treatment Clinical Notes Sep, Crushing injury of right thumb, initial encounter (ICD-10 - S67.01XA) Patient instructed on the use of moisturizer for the nailbed. Return to work note given Sep, Injury of nail bed of right thumb, initial encounter (ICD-10 - S69.91XA) [employer] Other 02-14-2023 Evaluation note* Encounter Date Diagnosis Assessment Notes Treatment Notes Treatment Clinical Notes Sep, Crushing injury of right thumb, initial encounter (ICD-10 - S67.01XA) Patient instructed to continue with current wound care and use of stax splint. Continue off work Sep, Injury of nail bed of right thumb, initial encounter (ICD-10 - S69.91XA) [employer] Other 02-07-2023 Evaluation note* Encounter Date Diagnosis Assessment Notes Treatment Notes Treatment Clinical Notes Sep, Crushing injury of right thumb, initial encounter (ICD-10 - S67.01XA) Patient instructed to continue daily soaking. Rx given for Zofran due to vomitting from narcotics Sep, Injury of nail bed of right thumb, initial encounter (ICD-10 - S69.91XA) [employer] Other 01-31-2023 NotePROCEDURE: XR HAND RT MIN [...] Electronically authenticated by: MYAH LEAL Date: 2022-09-25 07:51[facility]01-18-2023 NoteOPERATIVE NOTE OPERATION DATE: 09/12/2022 [...] in good condition. CC: Patient's family physicianThe [facility] [id number] NoteChief Complaint consultation for RUQ pain HPI [...] morphine (Chest pain) [employer] (more content not included)...[facility]Comment [facility]: Result Comment: Electronically Signed By: SOL ESPINOZA, Sanjay Paredes\Date and Time Signed: 08/20/22 10:27 ESTEvaluation + Plan note No data available for this section [facility] [place] Evaluation noteNo assessment information available [facility] Work Phone: Evaluation noteNo InformationNortLancaster Rehabilitation Hospital SchoolOut Other Hisfwwa general Narrative - Reported* Type Description Date Medical History depression Medical History bradycardia Medical History tachycardia Surgical History tonsillectomy Surgical History pylenol cysts Surgical History wisdom teeth Surgical History plantar fasciitis, tarsal tunne l x 2 right foot [employer] [facility] Other [facility] general Narrative - Reported* Type Description Date Medical History depression Medical History bradycardia Medical History tachycardia Surgical History tonsillectomy Surgical History pylenol cysts Surgical History wisdom teeth Surgical History plantar fasciitis, tarsal tunne l x 2 right foot Surgical History right thumb I & D 09/28/2022 [facility] Other Hospital Discharge instructions No data available for this section [facility] [place] Progress note No data available for this section [facility] [place] Chief Complaint and Reason for Visit Chief [...] section and content) DATE CREATED AUTHOR 09/29/[address] [place] [facility] DATE CREATED AUTHOR AUTHOR'S ORGANIZ ATION 12/01/2022 [facility] DATE CREATED AUTHOR AUTHOR'S ORGANIZ ATION 12/15/2022 [facility] REASON FOR VISIT (unrecogniz ed section [...] BE BASED ON THE PRIMARY CLINICAL RECORDS. [employer] provides no warranty or guarantee of the accuracy or completeness of information in this document.
== END 2024-05-21 12:00 | disposition home or self-care (01) ==
LOC: RAD 12:01
PROVIDERS: PCP Family Medicine; Visit Provider Family Medicine
DX: M25.571 Pain in right ankle and joints of right foot (principal); S82.61XA Displaced fracture of lateral malleolus of right fibula, initial encounter for closed fracture
CPT/HCPCS: 73610

== ENCOUNTER 2024-06-03 06:49 | Outpatient (OUT) | payer OTHER, SELFPAY ==
--- OUTSIDE RECORDS SUMMARY | 2024-06-03 06:51 | XMS_ITS | CCD ---
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 Name Role Phone Donnell Brooke Primary Care Physician MD Bonnie Jeffrey Attending Provider [phone] MD Donnell Brooke Primary Care Provider [phone] Edwardo PROVIDERDonnell Referring Unavailabl e NILL, Sanjay Gibbons Attending Unavailable NILL, Sanjay Gibbons Attending Unavailable NILL, Sanjay Gibbons Attending Unavailable NILL, Sanjay Gibbons Attending Unavailable Hoy PROVIDERDonnell Referring Unavailabl e NILL, Sanjay Gibbons Attending Unavailable Bonnie Jeffrey Unavailable MD Bonnie Jeffrey Attending Provider MD Donnell Brooke Primary Care Provider [phone] MAR[address] ., DR JACOBO Primary Care [...] [morphine] Drug Allergy 3 Chest pain (finding) [facility] [place] (14 sources) SILVER; Translations: [SILVER] Allergy to substance 4 INFECTION, Edema, silver wound pack reversed healing [facility] (4 sources) irbesartan; Translations: [irbesartan] Drug Allergy 3 Unknown Reaction [facility] (1 source) MORPHINE SUBSTITUTE; Translations: [MORPHINE SUBSTITUTE] Propensity to adverse reactions (disorder) [facility] (1 source) Morphine Drug Allergy [facility] Medications Current Medications Medication Drug Class(es) Dates Sig (Normalized) Sig (Original) acebutolol 200 mg oral capsule (11 sources) beta-Adrenergic Ana Start: 09-26-2022 take 200 mg by mouth twice daily Acebutolol Active 200 MG PO Twice daily September 26, 2022 1:00am Start: 07-27-2022 take 1 capsule by mo [facility] twice daily acebutolol 200 mg Cap 200 mg = 1 cap(s), Oral, BID, Refills(s) 0 Start Date: 07/27/22 Status: Ordered take 1 capsule by mo [facility] every twenty-four hours Acebutolol HCl [...] by mouth once daily in the morning Triamterene-[place] chlorothiazid Active 1 TAB PO Every morning September 26, 2022 1:00am levonorgestrel 0.060338 mg/hr intrauterine system (2 sources) Progestin, Progestin-containing [...] Start: 07-27-2022 take 2 tablets by mo [facility] once daily oxaprozin 600 mg Tab [...] Start: 07-27-2022 take 2 tablets by mo [facility] at bedtime tiZANidine 4 mg Tab 8 mg = 2 tab(s), Oral, Bedtime, Refills(s) 0 Start Date: 07/27/22 Status: Ordered take [address] 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] Onset: 09-18-2022 Episodic Other [...] 3V*on 023 XR hand RT min 3V* [facility] Main [address] [address] XRay Report Signed Patient: Veronica Ross MR#: [id number] : 1990 Acct:[id number] Age/Sex: 32 / F ADM Date: 12/11/22 [...] Dong Jr., DSandeeOSandee12/11/2022 4:55 PM Dictation Location: [place] [address] Transcribed By: [facility] 12/11/22 165 Dictated By: Willie Dong Jr, DO 12/11/221652 Signed By: 12/11/22 1655 Normal [facility] XR hand RT min 3V*on 023 XR hand RT min 3V* [facility] Main [address] [address] XRay Report Signed Patient: Veronica Ross MR#: [id number] : 1990 Acct:[id number] Age/Sex: 32 / F ADM Date: 11/13/22 [...] M.D.11/13/2022 5:23 PM Dictation Location: [place] [address] Transcribed By: [facility] 11/13/22 172 Dictated By: Kalpesh Murry II, MD 11/13/22 172 Signed By: 11/13/22 172 Normal [facility] XR hand RT min 3V* [facility] [employer] Other XR hand RT min 3V* [facility] [employer] Other XR hand RT min 3V* [address] [place] [address] [employer] Other XR hand RT min 3V* [place] [address] [facility] [employer] Other XR hand RT min 3V* XRay Report [employer] Other XR hand RT min 3V* Signed [employer] Other XR hand RT min 3V* Patient: Veronica Ross MR#: [id number] [employer] Other XR hand RT min 3V* 7067 [employer] Other XR hand RT min 3V* : 1990 Acct:[id number] [employer] Other XR hand RT min 3V* Age/Sex: 32 / F ADM Date: 11/13/22 [employer] Other XR hand RT min 3V* Loc: [facility] Room: [facility] [employer] Other XR hand RT min 3V* Attending Dr: Bonnie Jeffrey MD [employer] Other XR hand RT min 3V* Copies to: Bonnie Jeffrey MD [employer] Other XR hand RT min 3V* Ordering Provider: Bonnie Jeffrey MD [employer] Other XR hand RT min 3V* Date of Service: 11/13/22 [employer] Other XR hand RT min 3V* XR/XR hand RT min 3V*: Crushing injury of right thumb, subsequent [employer] Other XR hand RT min 3V* encounter [employer] Other XR hand RT min 3V* XR hand RT min 3V* 11/13/2022 3:49 PM [employer] Other XR hand RT min 3V* SIGNS AND SYMPTOMS: Status post incision and debridement of open fracture of right thumb, follow-up [employer] Other XR hand RT min 3V* PROTOCOL: Frontal, lateral, and oblique radiographs of the right hand [employer] Other XR hand RT min 3V* COMPARISON: 09/25/2022 [employer] Other XR hand RT min 3V* FINDINGS: [employer] Other XR hand RT min 3V* Healing/healed fracture of the distal phalanx of the right thumb. There is no change in alignment. [employer] Other XR hand RT min 3V* The joint spaces are preserved. No significant soft tissue swelling. [employer] Other XR hand RT min 3V* XR/XR hand RT min 3V* [employer] Other XR hand RT min 3V* IMPRESSION: [employer] Other XR hand RT min 3V* Impression dictated by: Kalpesh Murry M.D.11/13/2022 5:23 PM [employer] Other XR hand RT min 3V* Dictation Location: [place] [address] [employer] [facility] [employer] Other XR hand RT min 3V* Transcribed By: P[facility] 11/13/[address] [place] [address] [employer] Other XR hand RT min 3V* Dictated By: Kalpesh Murry II, MD 11/13/[address] [place] [address] [employer] Other XR hand RT min 3V* Signed By: [employer] Other XR hand RT min 3V* 11/13/[address] [place] [address] [employer] Other PROF CHEM 8 (BAS METB)on Anion gap [Moles/Vol] 11.0 mmol/L Normal [facility] Comment on above: Performed By: #### B MP #### [facility] [address] [place] [address] Dr. Shemar Armas Calcium [Mass/Vol] 8.8 mg/dL Normal 8.5-10.1 [facility] Comment on above: Performed By: #### B MP #### [facility] [address] [place] [address] [address] Shemar Armas Chloride [Moles/Vol] 100 mmol/L Normal 98-[address] [facility] Comment on above: Performed By: #### B MP #### [facility] [address] [place] [address] Dr. Shemar Armas CO2 [Moles/Vol] 31.5 mmol/L Normal 21.0-32.0 [facility] Comment on above: Performed By: #### B MP #### [facility] [address] [place] [address] [address] Shemar Armas Creatinine [Mass/Vol] 1.18 mg/dL Critically high 0.55-1.[address] [facility] Comment on above: Performed By: #### B MP #### [facility] [address] [place] [address] [address] Shemar Armas EGFR-AF CITIZ[place] >60 Normal >=60 [facility] Comment on above: Performed By: #### B MP #### [facility] [address] [place] [address] [address] Shemar Armas EGFR-NON AF [place]IZ[place] 53 mL/min/1.73m2 Critically low >=[address] [facility] Comment on above: Performed By: #### B MP #### [facility] [address] [place] [address] [address] Shemar Armas Glucose [Mass/Vol] 89 mg/dL Normal 74-106 [facility] Comment on above: Performed By: #### B MP #### [facility] [address] [place] [address] [address] Shemar Armas Potassium [Moles/Vol] 3.5 mmol/L Normal 3.5-5.1 [facility] Comment on above: Performed By: #### B MP #### [facility] [address] [place] [address] [address] Shemar Armas Sodium [Moles/Vol] 139 mmol/L Normal 136-145 [facility] Comment on above: Performed By: #### B MP #### [facility] [address] [place] [address] [address] Shemar Armas Urea nitrogen [Mass/Vol] 11.0 mg/dL Normal 7.0-18.[address] [facility] Comment on above: Performed By: #### B MP #### [facility] [address] [place] [address] [address] Shemar Armas Urea nitrogen/Creatinine [Mass ratio] 9.3 mg/mg Normal [facility] Comment on above: Performed By: #### B MP #### [facility] [address] [place] [address] [address] Shemar Armas HCG ( test) Aiden benjamin Ql (U)Ordered By: THOM DUONG on 09-28-2022 HCG ( test) Ql (U) Negative [facility] HCG,Urineon 09-28-2022 Beta HCG ( test) Ql (U) Negative Normal [facility] Comment on above: Result Comment: PERF ORMED BY: [place] [address] PATHOLOGIST STATE ARCHIVIST KWABENA MELVIN M.D. Performed By: #### U HCG #### [facility] [address] [place] [address] [place] Albumin [Mass/volume] in Ser um or PlasmaOrdered By: Bonnie Jeffrey on 09-26-2022 Albumin [Mass/Vol] 4.0 g/dL 3.2-5.5 [facility] Basophils Auto (Bld) [#/Vol] Ordered By: Bonnie Jeffrey on 09-26-2022 Basophils (Bld) [#/Vol] 0.1 10*3/uL 0.0-0.2 [facility] Basophils/100 WBC Auto (Bld) Ordered By: Bonnie Jeffrey on 09-26-2022 Basophils/100 WBC (Bld) 1.2 % . F [facility] Complete Blood Count Auto Di ffon 09-26-2022 Basophils (Bld) [#/Vol] 0.1 10*3/uL Normal 0.0-0.2 [facility] Comment on above: Result Comment: PERF ORMED BY: [place] [address] PATHOLOGIST STATE ARCHIVIST KWABENA MELVIN M.D. Performed By: #### C BC, CMP #### [facility] [address] [place] [address] [place] Basophils/100 WBC (Bld) 1.2 % Normal . [facility] Comment on above: Performed By: #### C BC, CMP #### [facility] [address] [place] [address] [place] Eosinophils (Bld) [#/Vol] 0.1 10*3/uL Normal 0.0-0.45 [facility] Comment on above: Performed By: #### C BC, CMP #### [facility] [address] [place] [address] [place] Eosinophils/100 WBC (Bld) 0.9 % Normal . [facility] Comment on above: Performed By: #### C BC, CMP #### [facility] [address] Erythrocyte distribution width (RBC) [Ratio] 13.6 % Normal 11.9-15.3 [facility] Comment on above: Performed By: #### C BC, CMP #### [facility] [address] Hematocrit (Bld) [Volume fraction] 40.2 % Normal 34.0-46.4 [facility] Comment on above: Performed By: #### C BC, CMP #### [facility] [address] Hemoglobin (Bld) [Mass/Vol] 13.3 g/dL Normal 11.8-15.4 [facility] Comment on above: Performed By: #### C BC, CMP #### [facility] [address] Lymphocytes (Bld) [#/Vol] 1.7 10*3/uL Normal 1.00-4.8 [facility] Comment on above: Performed By: #### C BC, CMP #### [facility] [address] [place] [address] [place] Lymphocytes/100 WBC (Bld) 18.1 % Normal . [facility] Comment on above: Performed By: #### C BC, CMP #### [facility] [address] [place] [address] [place] MCH (RBC) [Entitic mass] 28.8 pg Normal 24.7-34.3 [facility] Comment on above: Performed By: #### C BC, CMP #### [facility] [address] MCV (RBC) [Entitic vol] 87.1 fL Normal 80-100 [facility] Comment on above: Performed By: #### C BC, CMP #### [facility] [address] [place] [id number] [place] Mean Corpuscular HGB Conc 33.0 g/dL Normal 32.0-35.0 [facility] Comment on above: Performed By: #### C BC, CMP #### [facility] [address] [place] [address] [place] Monocytes (Bld) [#/Vol] 0.5 10*3/uL Normal 0.0-0.8 [facility] Comment on above: Performed By: #### C BC, CMP #### [facility] [address] [place] [address] [place] Monocytes/100 WBC (Bld) 5.8 % Normal . [facility] Comment on above: Performed By: #### C BC, CMP #### [facility] [address] [place] [address] [place] Neutrophils (Bld) [#/Vol] 7.0 10*3/uL Normal 1.8-7.7 [facility] Comment on above: Performed By: #### C BC, CMP #### [facility] [address] [place] [id number] [place] Neutrophils/100 WBC (Bld) 74.0 % Normal . [facility] Comment on above: Performed By: #### C BC, CMP #### [facility] [address] [place] [id number] [place] NRBC% 0.0 /100{WBC} Normal 0-0.5 [facility] Comment on above: Performed By: #### C BC, CMP #### [facility] [address] [place] [id number] [place] Platelet mean volume (Bld) [Entitic vol] 7.8 fL Normal 6.3-10.7 [facility] Comment on above: Performed By: #### C BC, CMP #### [facility] [address] [place] [phone] [place] Platelets (Bld) [#/Vol] 335 10*3/uL Normal 150-450 [facility] Comment on above: Performed By: #### C BC, CMP #### [address] RBC (Bld) [#/Vol] 4.62 10*6/uL Normal 3.60-5.00 [facility] Comment on above: Performed By: #### C BC, CMP #### [address] WBC (Bld) [#/Vol] 9.4 10*3/uL Normal 3.8-11.6 [facility] Comment on above: Performed By: #### C BC, CMP #### [address] Comprehensive Metabolic Pane [place] 09-26-2022 Albumin [Mass/Vol] 4.0 g/dL Normal 3.2-5.5 [facility] Comment on above: Performed By: #### C BC, CMP #### [address] Albumin/Globulin [Mass ratio] 1.4 {ratio} Normal [facility] Comment on above: Performed By: #### C BC, CMP #### [address] ALP [Catalytic activity/Vol] 45 U/L Normal 32-92 [facility] Comment on above: Result Comment: PERF ORMED BY: [place] [address] PATHOLOGIST STATE ARCHIVIST KWABENA MELVIN M.D. Performed By: #### C BC, CMP #### [address] ALT [Catalytic activity/Vol] 19 U/L Normal 10-60 [facility] Comment on above: Performed By: #### C BC, CMP #### [address] Anion gap [Moles/Vol] 13.8 mmol/L Normal 6.0-15.0 [facility] Comment on above: Performed By: #### C BC, CMP #### [address] [place] [address] [place] AST [Catalytic activity/Vol] 17 U/L Normal 10-42 [facility] Comment on above: Performed By: #### C BC, CMP #### [facility] [address] Bilirubin [Mass/Vol] 0.5 mg/dL Normal 0.3-1.2 [facility] Comment on above: Performed By: #### C BC, CMP #### [facility] [address] Calcium [Mass/Vol] 8.9 mg/dL Normal 8.2-10.2 [facility] Comment on above: Performed By: #### C BC, CMP #### [address] Chloride [Moles/Vol] 100 mmol/L Normal 95-114 [facility] Comment on above: Performed By: #### C BC, CMP #### [facility] [address] CO2 [Moles/Vol] 23.7 mmol/L Normal 22.0-30.0 [facility] Comment on above: Performed By: #### C BC, CMP #### [facility] [address] Creatinine [Mass/Vol] 1.82 mg/dL High 0.44-1.03 [facility] Comment on above: Performed By: #### C BC, CMP #### [facility] [address] Estimated GFR ( Perri 39 [facility] Comment on above: Result Comment: GFR estimated reference range: According to KDOQI guidelines, <60 ml/min/1.73m2 is sufficient to diagnose a patient with chronic kidney disease. Performed By: #### C BC, CMP #### [place] [address] [place] Estimated GFR (Non- Am 32 [facility] Comment on above: Performed By: #### C BC, CMP #### [place] [id number] [place] Globulin (S) [Mass/Vol] 2.8 g/dL Normal F [facility] Comment on above: Performed By: #### C BC, CMP #### [facility] [address] Glucose [Mass/Vol] 86 mg/dL Normal 70-100 [facility] Comment on above: Result Comment: [facility] Glucose Reference Range is dependent on time and content of last meal. Glucose of more than 200 mg/dL in a nonstressed, ambulatory subject supports the diagnosis of Diabetes Mellitus. ADA recommended reference range Performed By: #### C BC, CMP #### [facility] [address] Potassium [Moles/Vol] 3.5 mmol/L Normal 3.5-5.1 [facility] Comment on above: Performed By: #### C BC, CMP #### [address] Protein [Mass/Vol] 6.8 g/dL Normal 6.1-7.9 [facility] Comment on above: Performed By: #### C BC, CMP #### [address] Sodium [Moles/Vol] 134 mmol/L Low 136-146 [facility] Comment on above: Performed By: #### C BC, CMP #### [address] Urea nitrogen [Mass/Vol] 25 mg/dL High 9-23 [facility] Comment on above: Performed By: #### C BC, CMP #### [place] [address] [place] Creatinine and Glomerular fi ltration rate.predicted panel (S/P/Bld)Ordered By: Bonnie Jeffrey on 09-26-2022 Creatinine [Mass/Vol] 1.82 mg/dL 0.44-1.03 [facility] Eosinophils Auto (Bld) [#/Vo l]Ordered By: Bonnie Jeffrey on 09-26-2022 Eosinophils (Bld) [#/Vol] 0.1 10*3/uL 0.0-0.45 [facility] Eosinophils/100 WBC Auto (Bl d)Ordered By: Bonnie Jeffrey on 09-26-2022 Eosinophils/100 WBC (Bld) 0.9 % . [facility] Erythrocyte distribution wid th Auto (RBC) [Ratio]Ordered By: Bonnie Jeffrey on 09-26-2022 Erythrocyte distribution width (RBC) [Ratio] 13.6 % 11.9-15.3 [facility] Estimated glomerular filtrat ion rate (GFR) non- AmericanOrdered By: Bonnie Jeffrey on 09-26-2022 GFR/1.73 sq M.predicted among non-blacks MDRD (S/P/Bld) [Vol rate/Area] 32 mL/Min [facility] Globulin Calc (S) [Mass/Vol] Ordered By: Bonnie Jeffrey on 09-26-2022 Globulin (S) [Mass/Vol] 2.8 g/dL F [facility] Hematocrit Auto (Bld) [Volum e fraction]Ordered By: Bonnie Jeffrey on 09-26-2022 Hematocrit (Bld) [Volume fraction] 40.2 % 34.0-46.4 [facility] Hemoglobin [Mass/volume] in BloodOrdered By: Bonnie Jeffrey on 09-26-2022 Hemoglobin (Bld) [Mass/Vol] 13.3 g/dL 11.8-15.4 [facility] Leukocytes [#/volume] correc franco for nucleated erythrocytes in Blood by Automated counOrdered By: Bonnie Jeffrey on 09-26-2022 WBC corrected for nucl RBC Auto (Bld) [#/Vol] 9.4 10*3/uL 3.8-11.6 [facility] Lymphocytes Auto (Bld) [#/Vo l]Ordered By: Bonnie Jeffrey on 09-26-2022 Lymphocytes (Bld) [#/Vol] 1.7 10*3/uL 1.00-4.8 [facility] Lymphocytes/100 WBC Auto (Bl d)Ordered By: Bonnie Jeffrey on 09-26-2022 Lymphocytes/100 WBC (Bld) 18.1 % . [facility] MCH Auto (RBC) [Entitic mass ]Ordered By: Bonnie Jeffrey on 09-26-2022 MCH (RBC) [Entitic mass] 28.8 pg 24.7-34.3 [facility] MCHC Auto (RBC) [Mass/Vol]Or dered By: Bonnie Jeffrey on 09-26-2022 MCHC (RBC) [Mass/Vol] 33.0 g/dL 32.0-35.0 [facility] MCV Auto (RBC) [Entitic vol] Ordered By: Bonnie Jeffrey on 09-26-2022 MCV (RBC) [Entitic vol] 87.1 fL 80-100 [facility] Monocytes Auto (Bld) [#/Vol] Ordered By: Bonnie Jeffrey on 09-26-2022 Monocytes (Bld) [#/Vol] 0.5 10*3/uL 0.0-0.8 [facility] Monocytes/100 WBC Auto (Bld) Ordered By: Bonnie Jeffrey on 09-26-2022 Monocytes/100 WBC (Bld) 5.8 % . [facility] Neutrophils Auto (Bld) [#/Vo l]Ordered By: Bonnie Jeffrey on 09-26-2022 Neutrophils (Bld) [#/Vol] 7.0 10*3/uL 1.8-7.7 [facility] Neutrophils/100 WBC Auto (Bl d)Ordered By: Bonnie Jeffrey on 09-26-2022 Neutrophils/100 WBC (Bld) 74.0 % . [facility] No Panel InformationOrdered By: Bonnie Jeffrey on 09-26-2022 Estimated GFR () 39 mL/Min [facility] Comment on above: GFR estimated refere nce range: According to KDOQI guidelines, <60 ml/min/1.73m2 is sufficient to diagnose a patient with chronic kidney disease. Pharmacy Creatinine Clearance (Chem N/A [facility] Nucleated erythrocytes [Pres ence] in Blood by Automated countOrdered By: Bonnie Jeffrey on 09-26-2022 Nucleated RBC Auto Ql (Bld) 0.0 /100{WBC} 0-0.5 [facility] Platelet mean volume Auto (B ld) [Entitic vol]Ordered By: Bonnie Jeffrey on 09-26-2022 Platelet mean volume (Bld) [Entitic vol] 7.8 fL 6.3-10.7 [facility] Platelets Auto (Bld) [#/Vol] Ordered By: Bonnie Jeffrey on 09-26-2022 Platelets (Bld) [#/Vol] 335 10*3/uL 150-450 [facility] Protein [Mass/volume] in Ser um or PlasmaOrdered By: Bonnie Jeffrey on 09-26-2022 Protein [Mass/Vol] 6.8 g/dL 6.1-7.9 [facility] RBC Auto (Bld) [#/Vol]Ordere d By: Bonnie Jeffrey on 09-26-2022 RBC (Bld) [#/Vol] 4.62 10*6/uL 3.60-5.00 [facility] Serum or plasma alanine kamara otransferase measurement without P-5'-P (enzymatic activiOrdered By: Bonnie Jeffrey on 09-26-2022 ALT No additional P-5'-P [Catalytic activity/Vol] 19 U/L 10-60 [facility] Serum or plasma albumin/glob ulin mass ratioOrdered By: Bonnie Jeffrey on 09-26-2022 Albumin/Globulin [Mass ratio] 1.4 {ratio} [facility] Serum or plasma alkaline mona sphatase measurement (enzymatic activity/volume)Ordered By: Bonnie Jeffrey on 09-26-2022 ALP [Catalytic activity/Vol] 45 U/L 32-92 [facility] Serum or plasma anion gap de terminationOrdered By: Bonnie Jeffrey on 09-26-2022 Anion gap [Moles/Vol] 13.8 mmol/L 6.0-15.0 [facility] Serum or plasma aspartate am inotransferase measurement (enzymatic activity/volume)Ordered By: Bonnie Jeffrey on 09-26-2022 AST [Catalytic activity/Vol] 17 U/L 10-42 [facility] Serum or plasma calcium sagrario urement (mass/volume)Ordered By: Bonnie Jeffrey on 09-26-2022 Calcium [Mass/Vol] 8.9 mg/dL 8.2-10.2 [facility] Serum or plasma chloride julieta surement (moles/volume)Ordered By: Bonnie Jeffrey on 09-26-2022 Chloride [Moles/Vol] 100 mmol/L 95-114 [facility] Serum or plasma glucose sagrario urement (mass/volume)Ordered By: Bonnie Jeffrey on 09-26-2022 Glucose [Mass/Vol] 86 mg/dL 70-100 [facility] Comment on above: ADA recommended refe rence rangeRandom Glucose Reference Range is dependent on time and content of last meal. Glucose of more than 200 mg/dL in a nonstressed, ambulatory subject supports the diagnosis of Diabetes Mellitus. Serum or plasma potassium me asurement (moles/volume)Ordered By: Bonnie Jeffrey on 09-26-2022 Potassium [Moles/Vol] 3.5 mmol/L 3.5-5.1 [facility] Serum or plasma sodium measu rement (moles/volume)Ordered By: Bonnie Jeffrey on 09-26-2022 Sodium [Moles/Vol] 134 mmol/L 136-146 [facility] Serum or plasma total biliru bin measurement (mass/volume)Ordered By: Bonnie Jeffrey on 09-26-2022 Bilirubin [Mass/Vol] 0.5 mg/dL 0.3-1.2 [facility] Serum or plasma total carbon dioxide measurement (moles/volume)Ordered By: Bonnie Jeffrey on 09-26-2022 CO2 [Moles/Vol] 23.7 mmol/L 22.0-30.0 [facility] Serum or plasma urea nitroge n measurement (mass/volume)Ordered By: Bonnie Jeffrey on 09-26-2022 Urea nitrogen [Mass/Vol] 25 mg/dL 9-23 [facility] WBC Auto (Bld) [#/Vol]Ordere d By: Bonnie Jeffrey on 09-26-2022 WBC (Bld) [#/Vol] 9.4 10*3/uL 3.8-11.6 [facility] Operative Reporton 3 Operative Report [id number]#1.00CD:127 Normal [facility] Pathology Noteon 09-14-2022 Pathology Note [id number]#1.00CD:127 Normal [facility] PREG HCG QUALon 09-12-2022 , QUAL Negative Normal NEGATIVE [facility] Comment on above: Performed By: #### P REG #### [facility] [address], [place] [address] Dr. Shemar Armas Lab Reportson 09-10-2022 Lab Reports [id number]#1.00CD:127 Normal [facility] Covid-19 PCR (CVDTBH)on 08-26 SARS-CoV-2 (COVID-19) RNA PADMINI+probe Ql (Unsp spec) Not detected Normal NOT DETECTED [facility] Comment on above: Result Comment: This test is not yet approved or cleared by the [place] FDA. When there are no FDA-approved or cleared tests available, and other criteria are met, FDA can make tests available under an emergency access mechanism called an Emergency Use Authorization (EUA). The EUA for this test is supported by the [place] of Health and Human Service's (HHS's) declaration [...] SARS-CoV-2. Performed By: #### C VDTBH #### [facility] [address], [place] [address] Dr. Shemar Armas ED Note-Physicianon 08-01-20 ED Note-Physician [id number]:127 Normal [facility] Consent for Procedure/Surger yon 07-31-2022 Consent for Procedure/Surgery [id number]:127 Normal [facility] Physician Referralon Physician Referral [id number]#1.00CD:127 Normal [facility] US SINGLE QUAD RT UPPERon US SINGLE [...] THOM ANGELA Date: 2022-07-09 17:10 Normal [facility] US KIDNEYS BLADDERon US KIDNEYS [...] THOM ANGELA Date: 2022-07-04 14:26 Normal [facility] CBC AUTO DIFFon 07-02-2022 BASO # 0.1 103/ul Normal 0.0-0.1 [facility] Comment on above: Performed By: #### C BC #### [facility] [address] [address] [address] Shemar Armas Basophils/100 WBC (Bld) 0.6 % Normal 0.2-2.0 [facility] Comment on above: Performed By: #### C BC #### [facility] [address] [address] [address] Shemar Armas EO # 0.1 103/ul Normal 0.0-0.[address] [facility] Comment on above: Performed By: #### C BC #### [facility] [address] [address] [address] Shemar Armas Eosinophils/100 WBC (Bld) 0.8 % Critically low 0.9-7.[address] [facility] Comment on above: Performed By: #### C BC #### [facility] [address] [place] [address] Dr. Shemar Armas Erythrocyte distribution width (RBC) [Ratio] 14.6 % Normal 11.0-15.[address] [facility] Comment on above: Performed By: #### C BC #### [facility] [address] [place] [address] Dr. Shemar Armas Hematocrit (Bld) [Volume fraction] 36.4 % Normal 36.0-48.[address] [facility] Comment on above: Performed By: #### C BC #### [facility] [address] [place] [address] Dr. Shemar Armas Hemoglobin (Bld) [Mass/Vol] 12.2 g/dL Normal 12.0-16.[address] [facility] Comment on above: Performed By: #### C BC #### [facility] [address] [address] [address] Shemar Armas IG # 0.04 10e3/ul Critically high 0.00-0.03 [facility] Comment on above: Performed By: #### C BC #### [facility] [address] [address] [address] Shemar Armas IG % 0.3 % Normal 0.0-0.[address] [facility] Comment on above: Performed By: #### C BC #### [facility] [address] [address] [address] Shemar Armas LYMPH # 2.1 103/ul Normal 1.2-3.[address] [facility] Comment on above: Performed By: #### C BC #### [facility] [address] [place] [address] Dr. Shemar Armas Lymphocytes/100 WBC (Bld) 18.7 % Critically low 20.5-60.[address] [facility] Comment on above: Performed By: #### C BC #### [facility] [address] [place] [address] Dr. Shemar Armas MANUAL DIFF REQ NO Normal [facility] Comment on above: Performed By: #### C BC #### [facility] [address] [place] [address] Dr. Shemar Armas MCH (RBC) [Entitic mass] 29.6 pg Normal 26.7-34.[address] [facility] Comment on above: Performed By: #### C BC #### [facility] [address] [place] [address] Dr. Shemar Armas MCHC (RBC) [Mass/Vol] 33.5 g/dL Normal 29.9-35.[address] [facility] Comment on above: Performed By: #### C BC #### [facility] [address] [place] [address] Dr. Shemar Armas MCV (RBC) [Entitic vol] 88.3 fL Normal 81.0-99.0 [facility] Comment on above: Performed By: #### C BC #### [facility] [address] [place] [address] Dr. Shemar Armas MONO # 0.7 103/ul Normal 0.3-0.[address] [facility] Comment on above: Performed By: #### C BC #### [facility] [address] [place] [address] Dr. Shemar Armas Monocytes/100 WBC (Bld) 6.2 % Normal 1.7-12.0 [facility] Comment on above: Performed By: #### C BC #### [facility] [address] [address] [address] Shemar Armas NEUT # 8.4 103/ul Critically high 1.4-6.5 [facility] Comment on above: Performed By: #### C BC #### [facility] [address] [address] [address] Shemar Armas Neutrophils/100 WBC (Bld) 73.4 % Normal 43.0-75.[address] [facility] Comment on above: Performed By: #### C BC #### [facility] [address] [address] [address] Shemar Armas Platelet mean volume (Bld) [Entitic vol] 9.2 fL Critically low 9.5-13.[address] [facility] Comment on above: Performed By: #### C BC #### [facility] [address] [address] [address] Shemar Armas PLT 331 103/ul Normal 150-[address] [facility] Comment on above: Performed By: #### C BC #### [facility] [address] [address] [address] Shemar Armas RBC 4.12 106/ul Critically low 4.20-5.40 [facility] Comment on above: Performed By: #### C BC #### [facility] [address] [address] [address] Shemar Armas WBC 11.4 103/ul Critically high 4.0-11.0 [facility] Comment on above: Performed By: #### C BC #### [facility] [address] [address] [address] Shemar Armas PROF CHEM 8 (BAS METB)on Anion gap [Moles/Vol] 11.5 mmol/L Normal [facility] Comment on above: Performed By: #### B MP #### [facility] [address] [address] [address] Shemar Armas Calcium [Mass/Vol] 8.9 mg/dL Normal 8.5-10.1 [facility] Comment on above: Performed By: #### B MP #### [facility] [address] [address] [address] Shemar Armas Chloride [Moles/Vol] 102 mmol/L Normal 98-[address] [facility] Comment on above: Performed By: #### B MP #### [facility] [address] [address] [address] Shemar Armas CO2 [Moles/Vol] 29.6 mmol/L Normal 21.0-32.0 [facility] Comment on above: Performed By: #### B MP #### [facility] [address] [address] [address] Shemar Armas Creatinine [Mass/Vol] 1.93 mg/dL Critically high 0.55-1.[address] [facility] Comment on above: Performed By: #### B MP #### [facility] [address] [address] [address] Shemar Armas EGFR-[place] 37 mL/min/1.73m2 Critically low >=[address] [facility] Comment on above: Performed By: #### B MP #### [facility] [address] [address] [address] Shemar Armas EGFR-NON AF [place] 30 mL/min/1.73m2 Critically low >=[address] [facility] Comment on above: Performed By: #### B MP #### [facility] [address] [address] [address] Shemar Armas Glucose [Mass/Vol] 93 mg/dL Normal 74-106 [facility] Comment on above: Performed By: #### B MP #### [facility] [address] [address] [address] Shemar Armas Potassium [Moles/Vol] 4.1 mmol/L Normal 3.5-5.1 [facility] Comment on above: Performed By: #### B MP #### [facility] [address] [address] [address] Shemar Armas Sodium [Moles/Vol] 139 mmol/L Normal 136-145 [facility] Comment on above: Performed By: #### B MP #### [facility] [address] [place] [address] Dr. Shemar Armas Urea nitrogen [Mass/Vol] 22.0 mg/dL Critically high 7.0-18 .[address] [facility] Comment on above: Performed By: #### B MP #### [facility] [address] [place] [address] Dr. Shemar Armas Urea nitrogen/Creatinine [Mass ratio] 11.4 mg/mg Normal [facility] Comment on above: Performed By: #### B MP #### [facility] [address] [place] [address] Dr. Shemar Armas BNPon 06-29-2022 Natriuretic peptide B (Bld) [Mass/Vol] 159.0 pg/mL Normal <=450.[address] [facility] Comment on above: Performed By: #### B MP #### [facility] [address] [place] [address] Dr. Shemar Armas CBC AUTO DIFFon 06-29-2022 BASO # 0.1 103/ul Normal 0.0-0.[address] [facility] Comment on above: Performed By: #### P REG #### [facility] [address] [place] [address] Dr. Shemar Armas Basophils/100 WBC (Bld) 0.7 % Normal 0.2-2.0 [facility] Comment on above: Performed By: #### P REG #### [facility] [address] [place] [address] Dr. Shemar Armas EO # 0.1 103/ul Normal 0.0-0.[address] [facility] Comment on above: Performed By: #### P REG #### [facility] [address] [place] [address] Dr. Shemar Armas Eosinophils/100 WBC (Bld) 1.4 % Normal 0.9-7.[address] [facility] Comment on above: Performed By: #### P REG #### [facility] [address] [place] [address] Dr. Shemar Armas Erythrocyte distribution width (RBC) [Ratio] 14.5 % Normal 11.0-15.[address] [facility] Comment on above: Performed By: #### P REG #### [facility] [address] [address] [address] Shemar Armas Hematocrit (Bld) [Volume fraction] 35.4 % Critically low 36.0-48.[address] [facility] Comment on above: Performed By: #### P REG #### [facility] [address] [place] [address] Dr. Shemar Armas Hemoglobin (Bld) [Mass/Vol] 11.9 g/dL Critically low 12.0-16.[address] [facility] Comment on above: Performed By: #### P REG #### [facility] [address] [place] [address] Dr. Shemar Armas IG # 0.05 10e3/ul Critically high 0.00-0.03 [facility] Comment on above: Performed By: #### P REG #### [facility] [address] [place] [address] Dr. Shemar Armas IG % 0.5 % Normal 0.0-0.[address] [facility] Comment on above: Performed By: #### P REG #### [facility] [address] [place] [address] Dr. Shemar Armas LYMPH # 1.7 103/ul Normal 1.2-3.[address] [facility] Comment on above: Performed By: #### P REG #### [facility] [address] [place] [address] Dr. Shemar Armas Lymphocytes/100 WBC (Bld) 17.3 % Critically low 20.5-60.[address] [facility] Comment on above: Performed By: #### P REG #### [facility] [address] [place] [address] Dr. Shemar Armas MANUAL DIFF REQ NO Normal [facility] Comment on above: Performed By: #### P REG #### [facility] [address] [place] [address] Dr. Shemar Armas MCH (RBC) [Entitic mass] 29.5 pg Normal 26.7-34.[address] [facility] Comment on above: Performed By: #### P REG #### [facility] [address] [address] [address] Shemar Armas MCHC (RBC) [Mass/Vol] 33.6 g/dL Normal 29.9-35.[address] [facility] Comment on above: Performed By: #### P REG #### [facility] [address] [address] [address] Shemar Armas MCV (RBC) [Entitic vol] 87.8 fL Normal 81.0-99.0 [facility] Comment on above: Performed By: #### P REG #### [facility] [address] [address] [address] Shemar Armas MONO # 0.6 103/ul Normal 0.3-0.[address] [facility] Comment on above: Performed By: #### P REG #### [facility] [address] [address] [address] Shemar Armas Monocytes/100 WBC (Bld) 6.3 % Normal 1.7-12.0 [facility] Comment on above: Performed By: #### P REG #### [facility] [address] [address] [address] Shemar Armas NEUT # 7.1 103/ul Critically high 1.4-6.5 [facility] Comment on above: Performed By: #### P REG #### [facility] [address] [address] [address] Shemar Armas Neutrophils/100 WBC (Bld) 73.8 % Normal 43.0-75.[address] [facility] Comment on above: Performed By: #### P REG #### [facility] [address] [address] [address] Shemar Armas Platelet mean volume (Bld) [Entitic vol] 9.4 fL Critically low 9.5-13.[address] [facility] Comment on above: Performed By: #### P REG #### [facility] [address] [address] [address] Shemar Armas PLT 350 103/ul Normal 150-450 [facility] Comment on above: Performed By: #### P REG #### [facility] [address] [address] [address] Shemar Armas RBC 4.03 106/ul Critically low 4.20-5.40 [facility] Comment on above: Performed By: #### P REG #### [facility] [address] [address] [address] Shemar Armas WBC 9.6 103/ul Normal 4.0-11.[address] [facility] Comment on above: Performed By: #### P REG #### [facility] [address] [address] [address] Shemar Armas BASO # 0.0 103/ul Normal 0.0-0.[address] [facility] Comment on above: Performed By: #### C BC #### [facility] [address] [place] [address] Dr. Shemar Armas Basophils/100 WBC (Bld) 0.6 % Normal 0.2-2.0 [facility] Comment on above: Performed By: #### C BC #### [facility] [address] [place] [address] Dr. Shemar Armas EO # 0.1 103/ul Normal 0.0-0.[address] [facility] Comment on above: Performed By: #### C BC #### [facility] [address] [place] [address] Dr. Shemar Armas Eosinophils/100 WBC (Bld) 1.2 % Normal 0.9-7.[address] [facility] Comment on above: Performed By: #### C BC #### [facility] [address] [place] [address] Dr. Shemar Armas Erythrocyte distribution width (RBC) [Ratio] 14.4 % Normal 11.0-15.[address] [facility] Comment on above: Performed By: #### C BC #### [facility] [address] [place] [address] Dr. Shemar Armas Hematocrit (Bld) [Volume fraction] 29.3 % Critically low 36.0-48.[address] [facility] Comment on above: Performed By: #### C BC #### [facility] [address] [address] [address] Shemar Armas Hemoglobin (Bld) [Mass/Vol] 9.9 g/dL Critically low 12.0-16.[address] [facility] Comment on above: Performed By: #### C BC #### [facility] [address] [address] [address] Shemar Armas IG # 0.04 10e3/ul Critically high 0.00-0.03 [facility] Comment on above: Performed By: #### C BC #### [facility] [address] [address] [address] Shemar Armas IG % 0.6 % Critically high 0.0-0.5 [facility] Comment on above: Performed By: #### C BC #### [facility] [address] [address] [address] Shemar Armas LYMPH # 1.5 103/ul Normal 1.2-3.[address] [facility] Comment on above: Performed By: #### C BC #### [facility] [address] [address] [address] Shemar Armas Lymphocytes/100 WBC (Bld) 20.1 % Critically low 20.5-60.[address] [facility] Comment on above: Performed By: #### C BC #### [facility] [address] [place] [address] Dr. Shemar Armas MANUAL DIFF REQ NO Normal [facility] Comment on above: Performed By: #### C BC #### [facility] [address] [address] [address] Shemar Armas MCH (RBC) [Entitic mass] 29.9 pg Normal 26.7-34.[address] [facility] Comment on above: Performed By: #### C BC #### [facility] [address] [address] [address] Shemar Armas MCHC (RBC) [Mass/Vol] 33.8 g/dL Normal 29.9-35.2 [facility] Comment on above: Performed By: #### C BC #### [facility] [address] [address] [address] Shemar Armas MCV (RBC) [Entitic vol] 88.5 fL Normal 81.0-99.0 [facility] Comment on above: Performed By: #### C BC #### [facility] [address] [address] [address] Shemar Armas MONO # 0.5 103/ul Normal 0.3-0.[address] [facility] Comment on above: Performed By: #### C BC #### [facility] [address] [place] [address] Dr. Shemar Armas Monocytes/100 WBC (Bld) 7.5 % Normal 1.7-12.0 [facility] Comment on above: Performed By: #### C BC #### [facility] [address] [place] [address] Dr. Shemar Armas NEUT # 5.1 103/ul Normal 1.4-6.[address] [facility] Comment on above: Performed By: #### C BC #### [facility] [address] [place] [address] Dr. Shemar Armas Neutrophils/100 WBC (Bld) 70.0 % Normal 43.0-75.[address] [facility] Comment on above: Performed By: #### C BC #### [facility] [address] [place] [address] Dr. Shemar Armas Platelet mean volume (Bld) [Entitic vol] 9.2 fL Critically low 9.5-13.[address] [facility] Comment on above: Performed By: #### C BC #### [facility] [address] [place] [address] Dr. Shemar Armas PLT 225 103/ul Normal 150-450 [facility] Comment on above: Performed By: #### C BC #### [facility] [address] [place] [address] Dr. Shemar Armas RBC 3.31 106/ul Critically low 4.20-5.40 [facility] Comment on above: Performed By: #### C BC #### [facility] [address] [place] [address] Dr. Shemar Armas WBC 7.2 103/ul Normal 4.0-11.0 [facility] Comment on above: Performed By: #### C BC #### [facility] [address] [place] [address] Dr. Shemar Armas IRONon 06-29-2022 Iron [Mass/Vol] 110.0 ug/dL Normal 50.0-170.0 [facility] Comment on above: Performed By: #### P REG #### [facility] [address] [place] [address] Dr. Shemar Armas PROF 14(COMP METB)on 022 Albumin [Mass/Vol] 4.0 g/dL Normal 3.4-5.0 [facility] Comment on above: Performed By: #### P REG #### [facility] [address] [place] [address] Dr. Shemar Armas Albumin/Globulin [Mass ratio] 1.1 {ratio} Normal [facility] Comment on above: Performed By: #### P REG #### [facility] [address] [place] [address] Dr. Shemar Armas ALP [Catalytic activity/Vol] 57 U/L Normal 46-116 [facility] Comment on above: Performed By: #### P REG #### [facility] [address] [place] [address] Dr. Shemar Armas ALT [Catalytic activity/Vol] 26 U/L Normal 14-[address] [facility] Comment on above: Performed By: #### P REG #### [facility] [address] [place] [address] Dr. Shemar Armas Anion gap [Moles/Vol] 10.0 mmol/L Normal Th [facility] Comment on above: Performed By: #### P REG #### [facility] [address] [place] [address] Dr. Shemar Armas AST [Catalytic activity/Vol] 15 U/L Normal 15-[address] [facility] Comment on above: Performed By: #### P REG #### [facility] [address] [place] [address] Dr. Shemar Armas Bilirubin [Mass/Vol] 0.2 mg/dL Normal 0.2-1.[address] [facility] Comment on above: Performed By: #### P REG #### [facility] [address] [address] [address] Shemar Armas Calcium [Mass/Vol] 8.8 mg/dL Normal 8.5-10.1 [facility] Comment on above: Performed By: #### P REG #### [facility] [address] [address] [address] Shemar Armas Chloride [Moles/Vol] 105 mmol/L Normal 98-[address] [facility] Comment on above: Performed By: #### P REG #### [facility] [address] [address] [address] Shemar Armas CO2 [Moles/Vol] 26.8 mmol/L Normal 21.0-32.0 [facility] Comment on above: Performed By: #### P REG #### [facility] [address] [address] [address] Shemar Armas Creatinine [Mass/Vol] 1.60 mg/dL Critically high 0.55-1.[address] [facility] Comment on above: Performed By: #### P REG #### [facility] [address] [place] [address] Dr. Shemar Armas EGFR-AF [place] 46 mL/min/1.73m2 Critically low >=[address] [facility] Comment on above: Performed By: #### P REG #### [facility] [address] [address] [address] Shemar Armas EGFR-NON AF [place] 38 mL/min/1.73m2 Critically low >=[address] [facility] Comment on above: Performed By: #### P REG #### [facility] [address] [place] [address] Dr. Shemar Armas Globulin (S) [Mass/Vol] 3.5 g/dL Normal T [facility] Comment on above: Performed By: #### P REG #### [facility] [address] [place] [address] Dr. Shemar Armsa Glucose [Mass/Vol] 98 mg/dL Normal 74-106 [facility] Comment on above: Performed By: #### P REG #### [facility] [address] [address] [address] Shemar Arams Potassium [Moles/Vol] 3.8 mmol/L Normal 3.5-5.[address] [facility] Comment on above: Performed By: #### P REG #### [facility] [address] [address] [address] Shemar Armas Protein [Mass/Vol] 7.5 g/dL Normal 6.4-8.2 [facility] Comment on above: Performed By: #### P REG #### [facility] [address] [place] [address] Dr. Shemar Armas Sodium [Moles/Vol] 138 mmol/L Normal 136-145 [facility] Comment on above: Performed By: #### P REG #### [facility] [address] [place] [address] Dr. Shemar Armas Urea nitrogen [Mass/Vol] 24.0 mg/dL Critically high 7.0-[address] [facility] Comment on above: Performed By: #### P REG #### [facility] [address] [place] [address] Dr. Shemar Armas Urea nitrogen/Creatinine [Mass ratio] 15.0 mg/mg Normal [facility] Comment on above: Performed By: #### P REG #### [facility] [address] [address] [address] Shemar Armas Albumin [Mass/Vol] 3.3 g/dL Critically low 3.4-5.0 [facility] Comment on above: Performed By: #### B MP #### [facility] [address] [place] [address] Dr. Shemar Armas Albumin/Globulin [Mass ratio] 1.1 {ratio} Normal [facility] Comment on above: Performed By: #### B MP #### [facility] [address] [address] [address] Shemar Armas ALP [Catalytic activity/Vol] 55 U/L Normal 46-[address] [facility] Comment on above: Performed By: #### B MP #### [facility] [address] [address] [address] Shemar Armas ALT [Catalytic activity/Vol] 21 U/L Normal 14-[address] [facility] Comment on above: Performed By: #### B MP #### [facility] [address] [address] [address] Shemar Armas Anion gap [Moles/Vol] 8.1 mmol/L Normal [facility] Comment on above: Performed By: #### B MP #### [facility] [address] [address] [address] Shemar Armas AST [Catalytic activity/Vol] 13 U/L Critically low 15-[address] [facility] Comment on above: Performed By: #### B MP #### [facility] [address] [address] [address] Shemar Armas Bilirubin [Mass/Vol] 0.1 mg/dL Critically low 0.2-1.[address] [facility] Comment on above: Performed By: #### B MP #### [facility] [address] [address] [address] Shemar Armas Calcium [Mass/Vol] 7.5 mg/dL Critically low 8.5-10.1 [facility] Comment on above: Performed By: #### B MP #### [facility] [address] [address] [address] Shmear Armas Chloride [Moles/Vol] 107 mmol/L Normal 98-107 [facility] Comment on above: Performed By: #### B MP #### [facility] [address] [address] [address] Shemar Armas CO2 [Moles/Vol] 24.5 mmol/L Normal 21.0-32.0 [facility] Comment on above: Performed By: #### B MP #### [facility] [address] [address] [address] Shemar Armas Creatinine [Mass/Vol] 2.03 mg/dL Critically high 0.55-1.[address] [facility] Comment on above: Performed By: #### B MP #### [facility] [address] [address] [address] Shemar Armas EGFR-[place] 35 mL/min/1.73m2 Critically low >=[address] [facility] Comment on above: Performed By: #### B MP #### [facility] [address] [address] [address] Shemar Armas EGFR-NON AF [place]IZEN OF [place] 29 mL/min/1.73m2 Critically low >=[address] [facility] Comment on above: Performed By: #### B MP #### [facility] [address] [address] [address] Shemar Armas Globulin (S) [Mass/Vol] 2.9 g/dL Normal [facility] Comment on above: Performed By: #### B MP #### [facility] [address] [address] [address] Shemar Armas Glucose [Mass/Vol] 111 mg/dL Critically high 74-106 [facility] Comment on above: Performed By: #### B MP #### [facility] [address] [address] [address] Shemar Armas Potassium [Moles/Vol] 3.6 mmol/L Normal 3.5-5.[address] [facility] Comment on above: Performed By: #### B MP #### [facility] [address] [address] [address] Shemar Armas Protein [Mass/Vol] 6.2 g/dL Critically low 6.4-8.2 [facility] Comment on above: Performed By: #### B MP #### [facility] [address] [address] [address] Shemar Armas Sodium [Moles/Vol] 136 mmol/L Normal 136-145 [facility] Comment on above: Performed By: #### B MP #### [facility] [address] [address] [address] Shemar Armas Urea nitrogen [Mass/Vol] 28.0 mg/dL Critically high 7.0-[address] [facility] Comment on above: Performed By: #### B MP #### [facility] [address] [place] [address] Dr. Shemar Armas Urea nitrogen/Creatinine [Mass ratio] 13.8 mg/mg Normal [facility] Comment on above: Performed By: #### B MP #### [facility] [address] [place] [address] Dr. Shemar Armas TROPONIN, HIGH SENSITIVITYon 06-29-2022 HSTROP 4.8 pg/mL Normal 4.0-51.3 [facility] Comment on above: Result Comment: CUT- OFF POINTS HAVE BEEN ESTABLISHED BASED ON THE FOURTH UNIVERSAL DEFINITIONS OF MYOCARDIAL INFARCTION. THE UPPER REFERENCE LIMIT (URL) OF TROPONIN, DEFINED THE 99TH PERCENTILE OF cTnI DISTRIBUTION IN A REFERENCE POPULATION, HAS BEEN CONFIRMED THE DECISION THRESHOLD FOR [place] DIAGNOSIS. Performed By: #### B MP #### [facility] [address] [place] [address] Dr. Shemar Armas INSULINon 04-27-2022 Insulin 15.8 uIU/mL Normal 2.6-24.9 [facility] Comment on above: Performed By: #### I NSULIN #### [facility] [address] [place] [address] Dr. Shemar Armas T4, T3U, FTI LABCORPon 04-27 Free Thyroxine Index 3.1 Normal 1.2-4.9 [facility] Comment on above: Performed By: #### T HYLC #### [facility] [address] [place] [address] Dr. Shemar Armas T3 Uptake 31 % Normal 24-39 [facility] Comment on above: Performed By: #### T HYLC #### [facility] [address] [place] [address] Dr. Shemar Armas T4 [Mass/Vol] 10.1 ug/dL Normal 4.5-12.0 [facility] Comment on above: Performed By: #### T HYLC #### [facility] [address] [place] [address] Dr. Shemar Armas CBC AUTO DIFFon 04-26-2022 BASO # 0.1 103/ul Normal 0.0-0.[address] [facility] Comment on above: Performed By: #### B MP #### [facility] [address] [address] [address] Shemar Armas Basophils/100 WBC (Bld) 0.7 % Normal 0.2-2.0 [facility] Comment on above: Performed By: #### B MP #### [facility] [address] [place] [address] Dr. Shemar Armas EO # 0.1 103/ul Normal 0.0-0.[address] [facility] Comment on above: Performed By: #### B MP #### [facility] [address] [place] [address] Dr. Shemar Armas Eosinophils/100 WBC (Bld) 0.9 % Normal 0.9-7.[address] [facility] Comment on above: Performed By: #### B MP #### [facility] [address] [place] [address] Dr. Shemar Armas Erythrocyte distribution width (RBC) [Ratio] 13.7 % Normal 11.0-15.[address] [facility] Comment on above: Performed By: #### B MP #### [facility] [address] [place] [address] Dr. Shemar Armas Hematocrit (Bld) [Volume fraction] 41.8 % Normal 36.0-48.[address] [facility] Comment on above: Performed By: #### B MP #### [facility] [address] [place] [address] Dr. Shemar Armsa Hemoglobin (Bld) [Mass/Vol] 13.9 g/dL Normal 12.0-16.[address] [facility] Comment on above: Performed By: #### B MP #### [facility] [address] [place] [address] Dr. Shemar Armas IG # 0.03 10e3/ul Normal 0.00-0.[address] [facility] Comment on above: Performed By: #### B MP #### [facility] [address] [place] [address] Dr. Shemar Armas IG % 0.3 % Normal 0.0-0.[address] [facility] Comment on above: Performed By: #### B MP #### [facility] [address] [place] [address] Dr. Shemar Armas LYMPH # 1.8 103/ul Normal 1.2-3.[address] [facility] Comment on above: Performed By: #### B MP #### [facility] [address] [place] [address] Dr. Shemar Armas Lymphocytes/100 WBC (Bld) 21.0 % Normal 20.5-60.[address] [facility] Comment on above: Performed By: #### B MP #### [facility] [address] [place] [address] Dr. Shemar Armas MANUAL DIFF REQ NO Normal [facility] Comment on above: Performed By: #### B MP #### [facility] [address] [place] [address] Dr. Shemar Armas MCH (RBC) [Entitic mass] 28.8 pg Normal 26.7-34.[address] [facility] Comment on above: Performed By: #### B MP #### [facility] [address] [place] [address] Dr. Shemar Armas MCHC (RBC) [Mass/Vol] 33.3 g/dL Normal 29.9-35.[address] [facility] Comment on above: Performed By: #### B MP #### [facility] [address] [place] [address] Dr. Shemar Armas MCV (RBC) [Entitic vol] 86.7 fL Normal 81.0-99.0 [facility] Comment on above: Performed By: #### B MP #### [facility] [address] [place] [address] Dr. Shemar Armas MONO # 0.7 103/ul Normal 0.3-0.[address] [facility] Comment on above: Performed By: #### B MP #### [facility] [address] [place] [address] Dr. Shemar Armas Monocytes/100 WBC (Bld) 7.9 % Normal 1.7-12.0 [facility] Comment on above: Performed By: #### B MP #### [facility] [address] [address] [address] Shemar Armas NEUT # 6.0 103/ul Normal 1.4-6.[address] [facility] Comment on above: Performed By: #### B MP #### [facility] [address] [address] [address] Shemar Armas Neutrophils/100 WBC (Bld) 69.2 % Normal 43.0-75.[address] [facility] Comment on above: Performed By: #### B MP #### [facility] [address] [place] [address] Dr. Shemar Armas Platelet mean volume (Bld) [Entitic vol] 9.7 fL Normal 9.5-13.[address] [facility] Comment on above: Performed By: #### B MP #### [facility] [address] [place] [address] Dr. Shemar Armas PLT 322 103/ul Normal 150-450 [facility] Comment on above: Performed By: #### B MP #### [facility] [address] [place] [address] Dr. Shemar Armas RBC 4.82 106/ul Normal 4.20-5.[address] [facility] Comment on above: Performed By: #### B MP #### [facility] [address] [place] [address] Dr. Shemar Armas WBC 8.7 103/ul Normal 4.0-11.[address] [facility] Comment on above: Performed By: #### B MP #### [facility] [address] [place] [address] Dr. Shemar Armas GLYCOHEMOGLOBIN A1Con 2021 ADA RECOMMENDATION SEE BELOW Normal [facility] Comment on above: Result Comment: ADA RECOMMENDED LIMIT 4.0 - 6.0 ADA THERAPEUTIC TARGET < 7.0 ACTION SUGGESTED > 7.0 Performed By: #### P REG #### [facility] [address] [place] [address] Dr. Shemar Armas Glucose [Mass/Vol] 108 mg/dL Normal [facility] Comment on above: Performed By: #### P REG #### [facility] [address] [address] [address] Shemar Armas HbA1c (Bld) [Mass fraction] 5.4 % Normal 4.5-6.[address] [facility] Comment on above: Performed By: #### P REG #### [facility] [address] [address] [address] Shemar Armas IRONon 04-26-2022 Iron [Mass/Vol] 55.0 ug/dL Normal 50.0-170.0 [facility] Comment on above: Performed By: #### I CYNDI #### [facility] [address] [address] [address] Shemar Armas LIPID PROFILEon 04-26-2022 CHOL-HDL RATIO NORM SEE BELOW Normal [facility] Comment on above: Result Comment: 3.3 - 4.4 LOW RISK 4.4 - 7.1 AVERAGE RISK 7.1 - 11.0 MODERATE RISK >11.0 HIGH RISK Performed By: #### P REG #### [facility] [address] [place] [address] Dr. Shemar Armas Cholesterol [Mass/Vol] 205 mg/dL Critically high <=[address] [facility] Comment on above: Performed By: #### P REG #### [facility] [address] [place] [address] Dr. Shemar Armas Cholesterol in HDL [Mass/Vol] 57 mg/dL Normal 40-[address] [facility] Comment on above: Performed By: #### P REG #### [facility] [address] [address] [address] Shemar Armas Cholesterol in LDL [Mass/Vol] 126.8 mg/dL Normal [facility] Comment on above: Performed By: #### P REG #### [facility] [address] [place] [address] Dr. Shemar Armas Cholesterol.total/Choles terol in HDL [Mass ratio] 3.6 {ratio} Normal [facility] Comment on above: Performed By: #### P REG #### [facility] [address] [address] [address] Shemar Armas HDL NORMAL > or = 60 mg/dl - LOW CARDIOVASCULAR RISK <40 mg/dl - HIGH CARDIOVASCULAR RISK Normal [facility] Comment on above: Performed By: #### P REG #### [facility] [address] [address] [address] Shemar Armas LDL CALC NORMAL SEE BELOW Normal [facility] Comment on above: Result Comment: <100 mg/dl OPTIMAL 100 - 129 mg/dl NEAR OR ABOVE OPTIMAL 130 - 159 mg/dl BORDERLINE HIGH 160 - 189 mg/dl HIGH >190 mg/dl VERY HIGH Performed By: #### P REG #### [facility] [address] [address] [address] Shemar Armas Triglyceride [Mass/Vol] 106 mg/dL Normal <=150 [facility] Comment on above: Performed By: #### P REG #### [facility] [address] [address] [address] Shemar Armas VLDL CALC 21.2 mg/dL Normal [facility] Comment on above: Performed By: #### P REG #### [facility] [address] [address] [address] Shemar Armas PROF 14(COMP METB)on 022 Albumin [Mass/Vol] 4.3 g/dL Normal 3.4-5.0 [facility] Comment on above: Performed By: #### T SH, CMP, LIPID #### [facility] [address] [address] [address] Shemar Armas Albumin/Globulin [Mass ratio] 1.2 {ratio} Normal [facility] Comment on above: Performed By: #### T SH, CMP, LIPID #### [facility] [address] [address] [address] Shemar Armas ALP [Catalytic activity/Vol] 62 U/L Normal 46-[address] [facility] Comment on above: Performed By: #### T SH, CMP, LIPID #### [facility] [address] [address] [address] Shemar Armas ALT [Catalytic activity/Vol] 34 U/L Normal 14-[address] [facility] Comment on above: Performed By: #### T SH, CMP, LIPID #### [facility] [address] [address] [address] Shemar Armas Anion gap [Moles/Vol] 13.7 mmol/L Normal [facility] Comment on above: Performed By: #### T SH, CMP, LIPID #### [facility] [address] [address] [address] Shemar Armas AST [Catalytic activity/Vol] 22 U/L Normal 15-[address] [facility] Comment on above: Performed By: #### T SH, CMP, LIPID #### [facility] [address] [place] [address] Dr. Shemar Armas Bilirubin [Mass/Vol] 0.3 mg/dL Normal 0.2-1.[address] [facility] Comment on above: Performed By: #### T SH, CMP, LIPID #### [facility] [address] [place] [address] Dr. Shemar Armas Calcium [Mass/Vol] 9.1 mg/dL Normal 8.5-10.1 [facility] Comment on above: Performed By: #### T SH, CMP, LIPID #### [facility] [address] [place] [address] Dr. Shemar Armas Chloride [Moles/Vol] 98 mmol/L Normal 98-[address] [facility] Comment on above: Performed By: #### T SH, CMP, LIPID #### [facility] [address] [address] [address] Shemar Armas CO2 [Moles/Vol] 29.9 mmol/L Normal 21.0-32.0 [facility] Comment on above: Performed By: #### T SH, CMP, LIPID #### [facility] [address] [place] [address] Dr. Shemar Armas Creatinine [Mass/Vol] 1.27 mg/dL Critically high 0.55-1.[address] [facility] Comment on above: Performed By: #### T SH, CMP, LIPID #### [facility] [address] [place] [address] Dr. Shemar Armas EGFR-AF [place] 59 mL/min/1.73m2 Critically low >=60 [facility] Comment on above: Performed By: #### T SH, CMP, LIPID #### [facility] [address] [place] [address] Dr. Shemar Armas EGFR-NON AF [place] 49 mL/min/1.73m2 Critically low >=60 [facility] Comment on above: Performed By: #### T SH, CMP, LIPID #### [facility] [address] [place] [address] Dr. Shemar Armas Globulin (S) [Mass/Vol] 3.6 g/dL Normal T [facility] Comment on above: Performed By: #### T SH, CMP, LIPID #### [facility] [address] [place] [address] Dr. Shemar Armas Glucose [Mass/Vol] 92 mg/dL Normal 74-106 [facility] Comment on above: Performed By: #### T SH, CMP, LIPID #### [facility] [address] [place] [address] Dr. Shemar Armas Potassium [Moles/Vol] 3.6 mmol/L Normal 3.5-5.1 [facility] Comment on above: Performed By: #### T SH, CMP, LIPID #### [facility] [address] [place] [address] Dr. Shemar Armas Protein [Mass/Vol] 7.9 g/dL Normal 6.4-8.2 [facility] Comment on above: Performed By: #### T SH, CMP, LIPID #### [facility] [address] [place] [address] Dr. Shemar Armas Sodium [Moles/Vol] 138 mmol/L Normal 136-145 [facility] Comment on above: Performed By: #### T SH, CMP, LIPID #### [facility] [address] [place] [address] Dr. Shemar Armas Urea nitrogen [Mass/Vol] 16.0 mg/dL Normal 7.0-18.[address] [facility] Comment on above: Performed By: #### T SH, CMP, LIPID #### [facility] [address] [address] [address] Shemar Armas Urea nitrogen/Creatinine [Mass ratio] 12.6 mg/mg Normal [facility] Comment on above: Performed By: #### T SH, CMP, LIPID #### [facility] [address] [address] [address] Shemar Armas TSHon 04-26-2022 TSH 3.031 uIU/mL Normal 0.358-3.740 [facility] Comment on above: Performed By: #### P REG #### [facility] [address] [address] [address] Shemar Armas Vital Signs Date Time Vital Sign Value Performing Clinician Facility 10-02-2022 16:00-0500 Body height 160.02 cm [facility] Other [facility] Other 10-02-2022 16:00-0500 Body mass index (BMI) [Ratio] 42.69 kg/m2 [facility] Other 10-02-2022 16:00-0500 Body weight 109.32 kg Bnonie [facility] Other [facility] Other 09-28-2022 15:55-0500 Diastolic blood pressure 60 mm[Hg] MD Donnell Brooke Work Phone: [facility] 09-28-2022 15:55-0500 Heart rate 76 /min MD Donnell Brooke Work Phone: [facility] 09-28-2022 15:55-0500 Respiratory rate 16 /min MD Donnell Brooke Work Phone: [facility] 09-28-2022 15:55-0500 SaO2% (BldA) [Mass fraction] 98 % MD Donnell Brooke Work Phone: [facility] 09-28-2022 15:55-0500 Systolic blood pressure 123 mm[Hg] MD Donnell Brooke Work Phone: [facility] 09-28-2022 14:33-0500 Body height 162.56 cm MD Donnell Brooke Work Phone: [facility] 09-28-2022 14:33-0500 Body mass index (BMI) [Ratio] 41.6 kg/m2 MD Donnell Brooke Work Phone: [facility] 09-28-2022 14:33-0500 Body weight 110 kg MD Donnell Brooke Work Phone: [facility] 09-28-2022 12:25-0500 Body temperature 98 [degF] MD Donnell Brooke Work Phone: [facility] 07-30-2022 15:29-0500 Blood Pressure Location Sanjay GEMMAL [facility] 07-30-2022 15:29-0500 Diastolic blood pressure 83 mm[Hg] Sanjay MENENDEZL [facility] 07-30-2022 15:29-0500 Heart rate 75 /min Sanjay NILL [facility] 07-30-2022 15:29-0500 Respiratory rate 16 /min Sanjay NILL [facility] 07-30-2022 15:29-0500 Systolic blood pressure 124 mm[Hg] Sanjay NILL [facility] Encounters Encounter Date Encounter Type Care Provider Facility Start: 06-12-2023 End: 06-12-2023 ambulatory Bonnie Jeffrey Other [facility] Other Start: 06-12-2023 Office outpatient vi sit 15 minutes [facility] Start: 03-20-2023 End: 03-20-2023 ambulatory Bonnie Jeffrey Other [facility] Other Start: 03-20-2023 Office outpatient vi sit 15 minutes Bonnie Calvey [facility] Start: 01-24-2023 End: 01-24-2023 ambulatory Bonnie Calvey Other [facility] Other Start: 01-24-2023 Office outpatient vi sit 15 minutes Bonnie Calvey [facility] Start: 12-11-2022 End: 12-11-2022 ambulatory Bonnie R Calvey Facility:[facility] Start: 11-13-2022 End: 11-13-2022 ambulatory Bonnie R Calvey Facility:[facility] Start: 11-13-2022 End: 11-13-2022 Patient encounter procedure MD Donnell Brooke Work Phone: [facility] Start: 11-13-2022 End: 11-13-2022 ambulatory MD Donnell Brooke Work Phone: [facility] Work Phone: Start: 11-13-2022 Postop follow up vis it related to original px Bonnie Calvey [facility] Start: 10-23-2022 End: 10-23-2022 ambulatory Bonnie Calvey Other [facility] Other Start: 10-23-2022 Postop follow up vis it related to original px Bonnie Calvey [facility] Start: 10-10-2022 End: 10-11-[address] DONNELL BROOKE . Facility: Start: 10-09-2022 End: 10-09-2022 ambulatory Bonnie Calvey Other [facility] Other Start: 10-09-2022 Postop follow up vis it related to original px Bonnie Calvey [facility] Start: 10-02-2022 End: 10-02-2022 ambulatory Bonnie Calvey Other [facility] Other Start: 10-02-2022 Postop follow up vis it related to original px Bonnie Jeffrey [facility] Start: 10-02-2022 Telephone encounter Bonnie Jeffrey [facility] Start: 09-28-2022 End: 09-28-2022 ambulatory Bonnie Jeffrey Facility:[facility] Start: 09-28-2022 End: 09-28-2022 Admission to same day surgery center MD Donnell Brooke Work Phone: [facility] [place] Start: 09-26-2022 End: 09-26-2022 ambulatory Bonnie Edwige Shreyayaniv Facility:[facility] Start: 09-26-2022 End: 09-26-2022 ambulatory MD Donnell Brooke Work Phone: [facility] Work Phone: Start: 09-26-2022 End: 09-26-2022 Patient encounter procedure MD Donnell Brooke Work Phone: [facility] Work Phone: Start: 09-25-2022 End: 09-25-[address] DONNELL BROOKE . Facility: Start: 09-21-2022 ambulatory Sanjay ZUÑIGA Facility :[facility] Start: 09-14-2022 Encounter for preprocedural laboratory examination DR SANJAY ZUÑIGA . [facility] Start: 09-12-2022 End: 09-13-2022 ambulatory Sanjay ZUÑIGA Facility:[id number] Start: 09-11-2022 End: 10-06-[address] DONNELL BROOKE . Facility: Start: 09-07-2022 End: 09-08-[address] DONNELL BROOKE . Facility: Start: 09-07-2022 End: 09-08-2022 Encounter for preprocedural laboratory examination DR DONNELL BROOKE . Facility: Start: 07-30-2022 End: 07-31-2022 ambulatory oDnnell Brooke PROVIDER Facility: [facility] Start: 07-30-2022 End: 07-30-2022 Patient encounter procedure Sanjay ZUÑIGA [facility] [facility] [place] Start: 07-10-2022 ambulatory Donnell Brooke PROVIDER Facility:[facility] Start: 07-09-2022 End: 07-10-[address] DONNELL [...] abnormal findings DR DONNELL BROOKE . [facility] Start: 04-26-2022 End: 04-27-2022 ambulatory [...] Date Care Activity Detail Author Start: 09-28-2022 [facility] Start: 09-28-2022 [facility] Patient referral [facility] Work Phone: Immunizations Immunization Date Immunization Notes Care Provider Josue cheema NEGATED: Highlighted row has not occurred!07-30-2022 influenza virus vaccine, unspecified formulation Sanjay ZUÑIGA [facility] [place] Payers Date Payer Category Payer Self-pay 2022 Unknown [id number] 1990 Unknown [id number] 2.16.8 40.1.682524.3.579.2.727 1990 Unknown [id number] 2.16.8 40.1.879632.3.579.2.727 1990 Unknown [id number] 2.16.8 40.1.361921.3.579.2.727 1990 Unknown [id number] 2.16.8 40.1.445378.3.579.2.727 1990 Unknown [id number] 2.16.8 40.1.235836.3.579.2.727 1990 Unknown [id number] 2.16.84 0.1.195300.3.579.2.593 1990 Unknown [id number] 2.16.84 0.1.338728.3.579.2.593 1990 Unknown [id number] 2.16.84 0.1.285292.3.579.2.593 1990 Unknown [id number] 2.16.84 0.1.549481.3.579.2.593 1990 Unknown [id number] 2.16.84 0.1.339006.3.579.2.593 1990 Unknown [id number] 2.16.84 0.1.094073.3.579.2.593 1990 Unknown [id number] 2.16.84 0.1.317835.3.579.2.593 1990 Unknown [id number] 2.16.84 0.1.706660.3.579.2.593 1990 Unknown [id number] 2.16.84 0.1.955170.3.579.2.593 1990 Unknown [id number] 2.16.84 0.1.323440.3.579.2.593 1990 Unknown [id number] 2.16.84 0.1.504381.3.579.2.593 1990 Unknown [id number] 2.16.84 0.1.166481.3.579.2.593 1959 Unknown [id number] [id number] Unknown [id number] 2.16.8 40.1.252985.3.579.2.531 Unknown [id number] 2.16.8 40.1.444088.3.579.2.531 Unknown [id number] 2.16.8 40.1.322626.3.579.2.531 Unknown [id number] 2.16.8 40.1.835144.3.579.2.531 Social History Date Type Detail Facility Start: 07-30-2022 End: 09-28-2022 Tobacco smoking status Never smoked tobacco (finding) [facility] Tobacco smoking status Never [place] Sex Assigned At Female [facility] Start: 1990 Sex Assigned At Female [facility] Goals Date Patient Goal Desired Activity /State Functional Status Date Assessment Result Facility 07-30-2022 Functional Status N/A [facility] Clinical Notes 08-20-2022 to 06-12-2023 Note Date [...] Other specified postprocedural states (ICD-10 - Z98.890) [employer] Other 07-26-2023 Evaluation note* Encounter Date Diagnosis Assessment Notes Treatment Notes Treatment Clinical Notes Feb, Crushing injury of right thumb, subsequent encounter (ICD-10 - S67.01XD) Patient instructed to keep cuticle moisturized and pushed back. Activity as tolerated Feb, Injury of nail bed o f finger of right hand, subsequent encounter (ICD-10 - S69.91XD) Feb, Other specified postprocedural states (ICD-10 - Z98.890) [facility] Other 06-01-2023 Evaluation note* Encounter Date Diagnosis [...] Other specified postprocedural states (ICD-10 - Z98.890) [facility] Other 03-21-2023 Evaluation note* Encounter Date Diagnosis [...] Other specified postprocedural states (ICD-10 - Z98.890) [facility] Other 02-28-2023 Evaluation note* Encounter Date Diagnosis Assessment Notes Treatment Notes Treatment Clinical Notes Sep, Crushing injury of right thumb, initial encounter (ICD-10 - S67.01XA) Patient instructed on the use of moisturizer for the nailbed. Return to work note given Sep, Injury of nail bed of right thumb, initial encounter (ICD-10 - S69.91XA) [employer] Other 02-14-2023 Evaluation note* Encounter Date Diagnosis Assessment Notes Treatment Notes Treatment Clinical Notes Sep, Crushing injury of right thumb, initial encounter (ICD-10 - S67.01XA) Patient instructed to continue with current wound care and use of stax splint. Continue off work Sep, Injury of nail bed of right thumb, initial encounter (ICD-10 - S69.91XA) [facility] Other 02-07-2023 Evaluation note* Encounter Date Diagnosis Assessment Notes Treatment Notes Treatment Clinical Notes Sep, Crushing injury of right thumb, initial encounter (ICD-10 - S67.01XA) Patient instructed to continue daily soaking. Rx given for Zofran due to vomitting from narcotics Sep, Injury of nail bed of right thumb, initial encounter (ICD-10 - S69.91XA) [facility] Other 01-31-2023 NotePROCEDURE: XR HAND RT MIN [...] Electronically authenticated by: MYAH LEAL Date: 2022-09-25 07:51[facility]01-18-2023 NoteOPERATIVE NOTE OPERATION DATE: 09/12/2022 PREOPERATIVE [...] in good condition. CC: Patient's family physicianThe [facility] [id number] NoteChief Complaint consultation for RUQ pain HPI [...] morphine (Chest pain) [employer] (more content not included)...[facility]: Result Comment: Electronically Signed By: SOL ESPINOZA, Sanjay Paredes\Date and Time Signed: 08/20/22 10:27 ESTEvaluation + Plan note No data available for this section [facility] [place] Evaluation noteNo assessment information available [facility] Work Phone: Evaluation noteNo InformationNortSuburban Community Hospital [employer] Other Hisrc[facility] general Narrative - Reported* Type Description Date Medical History depression Medical History bradycardia Medical History tachycardia Surgical History tonsillectomy Surgical History pylenol cysts Surgical History wisdom teeth Surgical History plantar fasciitis, tarsal tunne l x 2 right foot [employer] [facility] [employer] Other Hisnaqg general Narrative - Reported* Type Description Date Medical History depression Medical History bradycardia Medical History tachycardia Surgical History tonsillectomy Surgical History pylenol cysts Surgical History wisdom teeth Surgical History plantar fasciitis, tarsal tunne l x 2 right foot Surgical History right thumb I & D 09/28/2022 [facility] [employer] Other Hospital Discharge instructions No data available for this section [facility] [place] Progress note No data available for this section [facility] [place] Chief Complaint and Reason for Visit Chief [...] section and content) DATE CREATED AUTHOR 09/29/2022 [facility] DATE CREATED AUTHOR AUTHOR'S ORGANIZ ATION 12/01/2022 [facility] DATE CREATED AUTHOR AUTHOR'S ORGANIZ ATION 12/15/2022 [facility] REASON FOR VISIT (unrecogniz ed section [...] BE BASED ON THE PRIMARY CLINICAL RECORDS. [employer] provides no warranty or guarantee of the accuracy or completeness of information in this document.
--- NOTE | 2024-06-03 06:52 | MR_ITS ---
The [address] [address] Patient Name: JAREK FIELD MRN: [id number] date: 1990 Sex: F Assigned Patient Location: MRI Current Patient Location: MRI Accession/Order Number: [id number] Exam Date: 06/03/2024 06:58 Report Date: 06/04/2024 16:11 At the request of: DONNELL ALLEN Procedure: MR ankle RT wo con EXAM: MR ankle RT wo con HISTORY: M25.571 right ankle pain COMPARISON: 05/21/2024 TECHNIQUE: MRI images obtained with multiple sequences. MRI of the right ankle without contrast. Sequences obtained by standard department protocol. FINDINGS: No significant degeneration of the ankle joint or subtalar joint. Achilles tendon is intact. No significant degeneration of the mid foot. Extensor, flexor and peroneal tendons are intact. Mild fluid of the peroneal tendon sheath, suggesting tenosynovitis. Anterior and posterior syndesmotic ligaments are intact. Anterior talofibular, posterior talofibular and calcaneofibular ligaments are intact. Deltoid ligament fibers are intact. No acute fractures. MR/MR ankle RT wo con IMPRESSION: 1. Mild fluid of the peroneal tendon sheath, suggesting tenosynovitis. 2. Extensor, flexor and peroneal tendons are intact. 3. No acute ligamentous abnormality. 4. No acute fractures. No significant joint degeneration. Electronically authenticated by: SAIDA ENCISO Date: 06/04/2024 16:11
== END 2024-06-03 06:50 | disposition home or self-care (01) ==
LOC: MRI 06:49
PROVIDERS: PCP Family Medicine; Visit Provider Family Medicine
DX: M25.571 Pain in right ankle and joints of right foot (principal)
CPT/HCPCS: 73721

== ENCOUNTER 2024-06-11 18:27 | Outpatient (OUT) | payer OTHER, SELFPAY ==
--- OUTSIDE RECORDS SUMMARY | 2024-06-11 18:30 | XMS_ITS | CCD ---
Author Organization [facility] Team Providers Care [place] Trimmer Name Role Phone Donnell Brooke Primary Care Physician MD Bonnie Jeffrey Attending Provider [phone] MD Donnell Brooke Primary Care Provider [phone] Edwardo PROVIDERDonnell Referring Unavailabl e NILL, Sanjay Gibbons Attending Unavailable NILL, Sanjay Gibbons Attending Unavailable NILL, Sanjay Gibbons Attending Unavailable NILL, Sanjay Gibbons Attending Unavailable Hoy PROVIDERDonnell Referring Unavailabl e NILL, Sanjay Gibbons Attending Unavailable Bonnie Jeffrey Unavailable MD Bonnie Jeffrey Attending Provider MD Donnell Brooke Primary Care Provider [phone] 3 MARTHAY ., DR JACOBO Primary Care [...] JACOBO Primary Care Unavailable HOY ., DR JACBOO Consulting Unavailable HOY ., DR JACOBO Admitting [...] [morphine] Drug Allergy 3 Chest pain (finding) [facility] [place] (14 sources) SILVER; Translations: [SILVER] Allergy to substance 4 INFECTION, Edema, silver wound pack reversed healing [facility] (4 sources) irbesartan; Translations: [irbesartan] Drug Allergy 3 Unknown Reaction [facility] (1 source) MORPHINE SUBSTITUTE; Translations: [MORPHINE SUBSTITUTE] Propensity to adverse reactions (disorder) [facility] (1 source) Morphine Drug Allergy [facility] Medications Current Medications Medication Drug Class(es) Dates Sig (Normalized) Sig (Original) acebutolol 200 mg oral capsule (11 sources) beta-Adrenergic Ana Start: 09-26-2022 take 200 mg by mouth twice daily Acebutolol Active 200 MG PO Twice daily September 26, 2022 1:00am Start: 07-27-2022 take 1 capsule by mo [facility] twice daily acebutolol 200 mg Cap 200 mg = 1 cap(s), Oral, BID, Refills(s) 0 Start Date: 07/27/22 Status: Ordered take 1 capsule by mo [facility] every twenty-four hours Acebutolol HCl 200 [...] by mouth once daily in the morning Triamterene-[place] chlorothiazid Active 1 TAB PO Every morning September 26, 2022 1:00am levonorgestrel 0.809606 mg/hr intrauterine system (2 sources) Progestin, Progestin-containing [...] Start: 07-27-2022 take 2 tablets by mo [facility] once daily oxaprozin 600 mg Tab [...] Start: 07-27-2022 take 2 tablets by mo [facility] at bedtime tiZANidine 4 mg Tab 8 mg = 2 tab(s), Oral, Bedtime, Refills(s) 0 Start Date: 07/27/22 Status: Ordered take 1 capsule by [facility] every eight hours tiZANidine HCl [...] 09-28-2022 Episodic Other aftercare (1 source) Other care home (current) drug therapy; 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] Onset: 09-18-2022 Episodic [...] 3V*on 023 XR hand RT min 3V* [facility] Main [address] [address] XRay Report Signed Patient: Veronica Ross MR#: [id number] : 1990 Acct:[id number] Age/Sex: 32 / F ADM Date: 12/11/22 Loc: [facility] Room: Type: REG CLI Attending Dr: Bonnie [...] Dong Jr., DSandeeOSandee12/11/2022 4:55 PM Dictation Location: [place] [address] Transcribed By: [facility] 12/11/22 165 Dictated By: Willie Dong Jr, DO 12/11/221652 Signed By: 12/11/22 1655 Normal [facility] XR hand RT min 3V*on 023 XR hand RT min 3V* [facility] Main [address] [address] XRay Report Signed Patient: Veronica Ross MR#: [id number] : 1990 Acct:[id number] Age/Sex: 32 / F ADM Date: 11/13/22 Loc: [facility] Room: Type: REG CLI Attending Dr: Bonnie [...] Kalpesh Murry M.D.11/13/2022 5:23 PM Dictation Location: [place] [address] Transcribed By: [facility] 11/13/22 172 Dictated By: Kalpesh Murry II, MD 11/13/22 172 Signed By: 11/13/22 172 Normal [facility] XR hand RT min 3V* [facility] [employer] Other XR hand RT min 3V* [facility] [employer] Other XR hand RT min 3V* [address] [place] [address] [employer] Other XR hand RT min 3V* [place] [address] [facility] [employer] Other XR hand RT min 3V* XRay Report [employer] Other XR hand RT min 3V* Signed [employer] Other XR hand RT min 3V* Patient: Veronica Ross MR#: [id number] [place] [employer] Other XR hand RT min 3V* 7067 [employer] Other XR hand RT min 3V* : 1990 Acct:[id number] [employer] Other XR hand RT min 3V* Age/Sex: 32 / F ADM Date: 11/13/22 [employer] Other XR hand RT min 3V* Loc: [facility] [place] Other XR hand RT min 3V* Attending Dr: Bonnie Jeffrey MD [employer] Other XR hand RT min 3V* Copies to: Bonnie Jeffrey MD [employer] Other XR hand RT min 3V* Ordering Provider: Bonnie Jeffrey MD [employer] Other XR hand RT min 3V* Date of Service: 11/13/22 [employer] Other XR hand RT min 3V* XR/XR hand RT min 3V*: Crushing injury of right thumb, subsequent [employer] Other XR hand RT min 3V* encounter [employer] Other XR hand RT min 3V* XR hand RT min 3V* 11/13/2022 3:49 PM [employer] Other XR hand RT min 3V* SIGNS AND SYMPTOMS: Status post incision and debridement of open fracture of right thumb, follow-up [employer] Other XR hand RT min 3V* PROTOCOL: Frontal, lateral, and oblique radiographs of the right hand [employer] Other XR hand RT min 3V* COMPARISON: 09/25/2022 [employer] Other XR hand RT min 3V* FINDINGS: [employer] Other XR hand RT min 3V* Healing/healed fracture of the distal phalanx of the right thumb. There is no change in alignment. [employer] Other XR hand RT min 3V* The joint spaces are preserved. No significant soft tissue swelling. [employer] Other XR hand RT min 3V* XR/XR hand RT min 3V* [employer] Other XR hand RT min 3V* IMPRESSION: [employer] Other XR hand RT min 3V* Impression dictated by: Kalpesh Murry M.D.11/13/2022 5:23 PM [place] [employer] Other XR hand RT min 3V* Dictation Location: [place] [address] [employer] [facility] [employer] Other XR hand RT min 3V* Transcribed By: [facility] 11/13/[address] [place] [address] [employer] Other XR hand RT min 3V* Dictated By: Kalpesh Murry II, MD 11/13/[address] [place] [address] [employer] Other XR hand RT min 3V* Signed By: [employer] Other XR hand RT min 3V* 11/13/[address] [place] [address] [employer] Other PROF CHEM 8 (BAS METB)on Anion gap [Moles/Vol] 11.0 mmol/L Normal [facility] Comment on above: Performed By: #### B MP #### [facility] [address] [place] [address] Dr. Shemar Armas Calcium [Mass/Vol] 8.8 mg/dL Normal 8.5-10.1 [facility] Comment on above: Performed By: #### B MP #### [facility] [address] [place] [address] [address] Shemar Armas Chloride [Moles/Vol] 100 mmol/L Normal 98-107 [facility] Comment on above: Performed By: #### B MP #### [facility] [address] [place] [address] Dr. Shemar Armas CO2 [Moles/Vol] 31.5 mmol/L Normal 21.0-32.0 [facility] Comment on above: Performed By: #### B MP #### [facility] [address] [place] [address] [address] Shemar Armas Creatinine [Mass/Vol] 1.18 mg/dL Critically high 0.55-1.02 [facility] Comment on above: Performed By: #### B MP #### [facility] [address] [place] [address] [address] Shemar Armas EGFR-AF MOSOTHO >60 Normal >=60 [facility] Comment on above: Performed By: #### B MP #### [facility] [address] [place] [address] [address] Shemar Armas EGFR-NON AF [place] 53 mL/min/1.73m2 Critically low >=60 [facility] Comment on above: Performed By: #### B MP #### [facility] [address] [address] [address] Shemar Armas Glucose [Mass/Vol] 89 mg/dL Normal 74-106 [facility] Comment on above: Performed By: #### B MP #### [facility] [address] [address] [address] Shemar Armas Potassium [Moles/Vol] 3.5 mmol/L Normal 3.5-5.1 [facility] Comment on above: Performed By: #### B MP #### [facility] [address] [place] [address] [address] Shemar Armas Sodium [Moles/Vol] 139 mmol/L Normal 136-145 [facility] Comment on above: Performed By: #### B MP #### [facility] [address] [place] [address] [address] Shemar Armas Urea nitrogen [Mass/Vol] 11.0 mg/dL Normal 7.0-18.0 [facility] Comment on above: Performed By: #### B MP #### [facility] [address] [place] [address] [address] Shemar Armas Urea nitrogen/Creatinine [Mass ratio] 9.3 mg/mg Normal [facility] Comment on above: Performed By: #### B MP #### [facility] [address] [address] [address] Shemar Armas HCG ( test) Aiden benjamin Ql (U)Ordered By: THOM DUONG on 09-28-2022 HCG ( test) Ql (U) Negative [facility] HCG,Urineon 09-28-2022 Beta HCG ( test) Ql (U) Negative Normal [facility] Comment on above: Result Comment: PERF ORMED BY: [place] [address] PATHOLOGIST ECHOMETER ENGINEER KWABENA MELVIN M.D. Performed By: #### U HCG #### [facility] [address] [place] [address] [place] Albumin [Mass/volume] in Ser um or PlasmaOrdered By: Bonnie Jeffrey on 09-26-2022 Albumin [Mass/Vol] 4.0 g/dL 3.2-5.5 [facility] Basophils Auto (Bld) [#/Vol] Ordered By: Bonnie Jeffrey on 09-26-2022 Basophils (Bld) [#/Vol] 0.1 10*3/uL 0.0-0.2 [facility] Basophils/100 WBC Auto (Bld) Ordered By: Bonnie Jeffrey on 09-26-2022 Basophils/100 WBC (Bld) 1.2 % . [facility] Complete Blood Count Auto Di ffon 09-26-2022 Basophils (Bld) [#/Vol] 0.1 10*3/uL Normal 0.0-0.2 [facility] Comment on above: Result Comment: PERF ORMED BY: [place] [address] PATHOLOGIST ECHOMETER ENGINEER KWABENA MELVIN M.D. Performed By: #### C BC, CMP #### [facility] [address] [place] [address] [place] Basophils/100 WBC (Bld) 1.2 % Normal . [facility] Comment on above: Performed By: #### C BC, CMP #### [facility] [address] [place] [address] [place] Eosinophils (Bld) [#/Vol] 0.1 10*3/uL Normal 0.0-0.45 [facility] Comment on above: Performed By: #### C BC, CMP #### [facility] [address] [place] [address] [place] Eosinophils/100 WBC (Bld) 0.9 % Normal . [facility] Comment on above: Performed By: #### C BC, CMP #### [facility] [address] Erythrocyte distribution width (RBC) [Ratio] 13.6 % Normal 11.9-15.3 [facility] Comment on above: Performed By: #### C BC, CMP #### [facility] [address] Hematocrit (Bld) [Volume fraction] 40.2 % Normal 34.0-46.4 [facility] Comment on above: Performed By: #### C BC, CMP #### [facility] [address] Hemoglobin (Bld) [Mass/Vol] 13.3 g/dL Normal 11.8-15.4 [facility] Comment on above: Performed By: #### C BC, CMP #### [facility] [address] Lymphocytes (Bld) [#/Vol] 1.7 10*3/uL Normal 1.00-4.8 [facility] Comment on above: Performed By: #### C BC, CMP #### [facility] [address] [place] [address] [place] Lymphocytes/100 WBC (Bld) 18.1 % Normal . [facility] Comment on above: Performed By: #### C BC, CMP #### [facility] [address] [place] [address] [place] MCH (RBC) [Entitic mass] 28.8 pg Normal 24.7-34.3 [facility] Comment on above: Performed By: #### C BC, CMP #### [facility] [address] MCV (RBC) [Entitic vol] 87.1 fL Normal 80-100 [facility] Comment on above: Performed By: #### C BC, CMP #### [facility] [place] [facility] [address] [place] [phone] [place] Mean Corpuscular HGB Conc 33.0 g/dL Normal 32.0-35.0 [facility] Comment on above: Performed By: #### C BC, CMP #### [facility] [place] [facility] [address] [place] [address] [place] Monocytes (Bld) [#/Vol] 0.5 10*3/uL Normal 0.0-0.8 [facility] Comment on above: Performed By: #### C BC, CMP #### [facility] [address] [place] [address] [place] Monocytes/100 WBC (Bld) 5.8 % Normal . [facility] Comment on above: Performed By: #### C BC, CMP #### [facility] [place] [facility] [address] [place] [address] [place] Neutrophils (Bld) [#/Vol] 7.0 10*3/uL Normal 1.8-7.7 [facility] Comment on above: Performed By: #### C BC, CMP #### [facility] [address] [place] [phone] [place] Neutrophils/100 WBC (Bld) 74.0 % Normal . [facility] Comment on above: Performed By: #### C BC, CMP #### [facility] [place] [facility] [address] [place] [phone] [place] NRBC% 0.0 /100{WBC} Normal 0-0.5 [facility] Comment on above: Performed By: #### C BC, CMP #### [facility] [address] [place] [phone] [place] Platelet mean volume (Bld) [Entitic vol] 7.8 fL Normal 6.3-10.7 [facility] Comment on above: Performed By: #### C BC, CMP #### [facility] [place] [facility] [address] [place] [phone] [place] Platelets (Bld) [#/Vol] 335 10*3/uL Normal 150-450 [facility] Comment on above: Performed By: #### C BC, CMP #### [address] RBC (Bld) [#/Vol] 4.62 10*6/uL Normal 3.60-5.00 [facility] Comment on above: Performed By: #### C BC, CMP #### [address] WBC (Bld) [#/Vol] 9.4 10*3/uL Normal 3.8-11.6 [facility] Comment on above: Performed By: #### C BC, CMP #### [address] Comprehensive Metabolic Pane [place] 09-26-2022 Albumin [Mass/Vol] 4.0 g/dL Normal 3.2-5.5 [facility] Comment on above: Performed By: #### C BC, CMP #### [address] Albumin/Globulin [Mass ratio] 1.4 {ratio} Normal [facility] Comment on above: Performed By: #### C BC, CMP #### [address] ALP [Catalytic activity/Vol] 45 U/L Normal 32-92 [facility] Comment on above: Result Comment: PERF ORMED BY: [place] [address] PATHOLOGIST ECHOMETER ENGINEER KWABENA MELVIN M.D. Performed By: #### C BC, CMP #### [address] ALT [Catalytic activity/Vol] 19 U/L Normal 10-60 [facility] Comment on above: Performed By: #### C BC, CMP #### [address] Anion gap [Moles/Vol] 13.8 mmol/L Normal 6.0-15.0 [facility] Comment on above: Performed By: #### C BC, CMP #### [address] [place] [address] [place] AST [Catalytic activity/Vol] 17 U/L Normal 10-42 [facility] Comment on above: Performed By: #### C BC, CMP #### [facility] [address] Bilirubin [Mass/Vol] 0.5 mg/dL Normal 0.3-1.2 [facility] Comment on above: Performed By: #### C BC, CMP #### [facility] [address] Calcium [Mass/Vol] 8.9 mg/dL Normal 8.2-10.2 [facility] Comment on above: Performed By: #### C BC, CMP #### [address] Chloride [Moles/Vol] 100 mmol/L Normal 95-114 [facility] Comment on above: Performed By: #### C BC, CMP #### [facility] [address] CO2 [Moles/Vol] 23.7 mmol/L Normal 22.0-30.0 [facility] Comment on above: Performed By: #### C BC, CMP #### [facility] [address] Creatinine [Mass/Vol] 1.82 mg/dL High 0.44-1.03 [facility] Comment on above: Performed By: #### C BC, CMP #### [facility] [address] Estimated GFR ( Perri 39 [facility] Comment on above: Result Comment: GFR estimated reference range: According to KDOQI guidelines, <60 ml/min/1.73m2 is sufficient to diagnose a patient with chronic kidney disease. Performed By: #### C BC, CMP #### [place] [address] [place] Estimated GFR (Non- Am 32 [facility] Comment on above: Performed By: #### C BC, CMP #### [place] [id number] [place] Globulin (S) [Mass/Vol] 2.8 g/dL Normal [facility] Comment on above: Performed By: #### C BC, CMP #### [facility] [address] Glucose [Mass/Vol] 86 mg/dL Normal 70-100 [facility] Comment on above: Result Comment: [facility] Glucose Reference Range is dependent on time and content of last meal. Glucose of more than 200 mg/dL in a nonstressed, ambulatory subject supports the diagnosis of Diabetes Mellitus. ADA recommended reference range Performed By: #### C BC, CMP #### [facility] [address] Potassium [Moles/Vol] 3.5 mmol/L Normal 3.5-5.1 [facility] Comment on above: Performed By: #### C BC, CMP #### [address] Protein [Mass/Vol] 6.8 g/dL Normal 6.1-7.9 [facility] Comment on above: Performed By: #### C BC, CMP #### [address] Sodium [Moles/Vol] 134 mmol/L Low 136-146 [facility] Comment on above: Performed By: #### C BC, CMP #### [address] Urea nitrogen [Mass/Vol] 25 mg/dL High 9-23 [facility] Comment on above: Performed By: #### C BC, CMP #### [place] [address] [place] Creatinine and Glomerular fi ltration rate.predicted panel (S/P/Bld)Ordered By: Bonnie Jeffrey on 09-26-2022 Creatinine [Mass/Vol] 1.82 mg/dL 0.44-1.03 [facility] Eosinophils Auto (Bld) [#/Vo l]Ordered By: Bonnie Jeffrey on 09-26-2022 Eosinophils (Bld) [#/Vol] 0.1 10*3/uL 0.0-0.45 [facility] Eosinophils/100 WBC Auto (Bl d)Ordered By: Bonnie Jeffrey on 09-26-2022 Eosinophils/100 WBC (Bld) 0.9 % . [facility] Erythrocyte distribution wid th Auto (RBC) [Ratio]Ordered By: Bonnie Jeffrey on 09-26-2022 Erythrocyte distribution width (RBC) [Ratio] 13.6 % 11.9-15.3 [facility] Estimated glomerular filtrat ion rate (GFR) non- AmericanOrdered By: Bonnie Jeffrey on 09-26-2022 GFR/1.73 sq M.predicted among non-blacks MDRD (S/P/Bld) [Vol rate/Area] 32 mL/Min [facility] Globulin Calc (S) [Mass/Vol] Ordered By: Bonnie Jeffrey on 09-26-2022 Globulin (S) [Mass/Vol] 2.8 g/dL [facility] Hematocrit Auto (Bld) [Volum e fraction]Ordered By: Bonnie Jeffrey on 09-26-2022 Hematocrit (Bld) [Volume fraction] 40.2 % 34.0-46.4 [facility] Hemoglobin [Mass/volume] in BloodOrdered By: Bonnie Jeffrey on 09-26-2022 Hemoglobin (Bld) [Mass/Vol] 13.3 g/dL 11.8-15.4 [facility] Leukocytes [#/volume] correc franco for nucleated erythrocytes in Blood by Automated counOrdered By: Bonnie Jeffrey on 09-26-2022 WBC corrected for nucl RBC Auto (Bld) [#/Vol] 9.4 10*3/uL 3.8-11.6 [facility] Lymphocytes Auto (Bld) [#/Vo l]Ordered By: Bonnie Jeffrey on 09-26-2022 Lymphocytes (Bld) [#/Vol] 1.7 10*3/uL 1.00-4.8 [facility] Lymphocytes/100 WBC Auto (Bl d)Ordered By: Bonnie Jeffrey on 09-26-2022 Lymphocytes/100 WBC (Bld) 18.1 % . [facility] MCH Auto (RBC) [Entitic mass ]Ordered By: Bonnie Jeffrey on 09-26-2022 MCH (RBC) [Entitic mass] 28.8 pg 24.7-34.3 [facility] MCHC Auto (RBC) [Mass/Vol]Or dered By: Bonnie Jeffrey on 09-26-2022 MCHC (RBC) [Mass/Vol] 33.0 g/dL 32.0-35.0 [facility] MCV Auto (RBC) [Entitic vol] Ordered By: Bonnie Jeffrey on 09-26-2022 MCV (RBC) [Entitic vol] 87.1 fL 80-100 [facility] Monocytes Auto (Bld) [#/Vol] Ordered By: Bonnie Jeffery on 09-26-2022 Monocytes (Bld) [#/Vol] 0.5 10*3/uL 0.0-0.8 [facility] Monocytes/100 WBC Auto (Bld) Ordered By: Bonnie Jeffrey on 09-26-2022 Monocytes/100 WBC (Bld) 5.8 % . [facility] Neutrophils Auto (Bld) [#/Vo l]Ordered By: Bonnie Jeffrey on 09-26-2022 Neutrophils (Bld) [#/Vol] 7.0 10*3/uL 1.8-7.7 [facility] Neutrophils/100 WBC Auto (Bl d)Ordered By: Bonnie Jeffrey on 09-26-2022 Neutrophils/100 WBC (Bld) 74.0 % . [facility] No Panel InformationOrdered By: Bonnie Jeffrey on 09-26-2022 Estimated GFR () 39 mL/Min [facility] Comment on above: GFR estimated refere nce range: According to KDOQI guidelines, <60 ml/min/1.73m2 is sufficient to diagnose a patient with chronic kidney disease. Pharmacy Creatinine Clearance (Chem N/A [facility] Nucleated erythrocytes [Pres ence] in Blood by Automated countOrdered By: Bonnie Jeffrey on 09-26-2022 Nucleated RBC Auto Ql (Bld) 0.0 /100{WBC} 0-0.5 [facility] Platelet mean volume Auto (B ld) [Entitic vol]Ordered By: Bonnie Jeffrey on 09-26-2022 Platelet mean volume (Bld) [Entitic vol] 7.8 fL 6.3-10.7 [facility] Platelets Auto (Bld) [#/Vol] Ordered By: Bonnie Jeffrey on 09-26-2022 Platelets (Bld) [#/Vol] 335 10*3/uL 150-450 [facility] Protein [Mass/volume] in Ser um or PlasmaOrdered By: Bonnie Jeffrey on 09-26-2022 Protein [Mass/Vol] 6.8 g/dL 6.1-7.9 [facility] RBC Auto (Bld) [#/Vol]Ordere d By: Bonnie Jeffrey on 09-26-2022 RBC (Bld) [#/Vol] 4.62 10*6/uL 3.60-5.00 [facility] Serum or plasma alanine kamara otransferase measurement without P-5'-P (enzymatic activiOrdered By: Bonnie Jeffrey on 09-26-2022 ALT No additional P-5'-P [Catalytic activity/Vol] 19 U/L 10-60 [facility] Serum or plasma albumin/glob ulin mass ratioOrdered By: Bonnie Jeffrey on 09-26-2022 Albumin/Globulin [Mass ratio] 1.4 {ratio} [facility] Serum or plasma alkaline mona sphatase measurement (enzymatic activity/volume)Ordered By: Bonnie Jeffrey on 09-26-2022 ALP [Catalytic activity/Vol] 45 U/L 32-92 [facility] Serum or plasma anion gap de terminationOrdered By: Bonnie Jeffrey on 09-26-2022 Anion gap [Moles/Vol] 13.8 mmol/L 6.0-15.0 [facility] Serum or plasma aspartate am inotransferase measurement (enzymatic activity/volume)Ordered By: Bonnie Jeffrey on 09-26-2022 AST [Catalytic activity/Vol] 17 U/L 10-42 [facility] Serum or plasma calcium sagrario urement (mass/volume)Ordered By: Bonnie Jeffrey on 09-26-2022 Calcium [Mass/Vol] 8.9 mg/dL 8.2-10.2 [facility] Serum or plasma chloride julieta surement (moles/volume)Ordered By: Bonnie Jeffrey on 09-26-2022 Chloride [Moles/Vol] 100 mmol/L 95-114 [facility] Serum or plasma glucose sagrario urement (mass/volume)Ordered By: Bonnie Jeffrey on 09-26-2022 Glucose [Mass/Vol] 86 mg/dL 70-100 [facility] Comment on above: ADA recommended refe rence rangeRandom Glucose Reference Range is dependent on time and content of last meal. Glucose of more than 200 mg/dL in a nonstressed, ambulatory subject supports the diagnosis of Diabetes Mellitus. Serum or plasma potassium me asurement (moles/volume)Ordered By: Bonnie Jeffrey on 09-26-2022 Potassium [Moles/Vol] 3.5 mmol/L 3.5-5.1 [facility] Serum or plasma sodium measu rement (moles/volume)Ordered By: Bonnie Jeffrey on 09-26-2022 Sodium [Moles/Vol] 134 mmol/L 136-146 [facility] Serum or plasma total biliru bin measurement (mass/volume)Ordered By: Bonnie Jeffrey on 09-26-2022 Bilirubin [Mass/Vol] 0.5 mg/dL 0.3-1.2 [facility] Serum or plasma total carbon dioxide measurement (moles/volume)Ordered By: Bonnie Jeffrey on 09-26-2022 CO2 [Moles/Vol] 23.7 mmol/L 22.0-30.0 [facility] Serum or plasma urea nitroge n measurement (mass/volume)Ordered By: Bonnie Jeffrey on 09-26-2022 Urea nitrogen [Mass/Vol] 25 mg/dL 9-23 [facility] WBC Auto (Bld) [#/Vol]Ordere d By: Bonnie Jeffrey on 09-26-2022 WBC (Bld) [#/Vol] 9.4 10*3/uL 3.8-11.6 [facility] Operative Reporton 3 Operative Report [id number]:[address] [facility] Pathology Noteon 09-14-2022 Pathology Note [id number]#[id number]:[address] [facility] PREG HCG QUALon 09-12-2022 , QUAL Negative Normal NEGATIVE [facility] Comment on above: Performed By: #### P REG #### [facility] [address] [place], [place] [address] Dr. Shemar Armas Lab Reportson 09-10-2022 Lab Reports [id number]:[address] [facility] Covid-19 PCR (CVDTBH)on 08-26 SARS-CoV-2 (COVID-19) RNA PADMINI+probe Ql (Unsp spec) Not detected Normal NOT DETECTED [facility] Comment on above: Result Comment: This test is not yet approved or cleared by the [place] FDA. When there are no FDA-approved or cleared tests available, and other criteria are met, FDA can make tests available under an emergency access mechanism called an Emergency Use Authorization (EUA). The EUA for this test is supported by the [place] of Health and Human Service's (HHS's) declaration [...] SARS-CoV-2. Performed By: #### C VDTBH #### [facility] [address] [place], [place] [address] Dr. Shemar Armas ED Note-Physicianon 08-01-20 ED Note-Physician [id number]:[address] [facility] Consent for Procedure/Surger yon 07-31-2022 Consent for Procedure/Surgery [id number]#[id number]:[address] [facility] Physician Referralon Physician Referral [id number]#[id number]:[address] [facility] US SINGLE QUAD RT UPPERon US [...] THOM ANGELA Date: 2022-07-09 17:10 Normal [facility] US KIDNEYS BLADDERon US KIDNEYS BLADDER [...] THOM ANGELA Date: 2022-07-04 14:26 Normal [facility] CBC AUTO DIFFon 07-02-2022 BASO # 0.1 103/ul Normal 0.0-0.1 [facility] Comment on above: Performed By: #### C BC #### [facility] [address] [place] [address] [address] Shemar Armas Basophils/100 WBC (Bld) 0.6 % Normal 0.2-2.0 [facility] Comment on above: Performed By: #### C BC #### [facility] [address] [address] [address] Shemar Armas EO # 0.1 103/ul Normal 0.0-0.7 [facility] Comment on above: Performed By: #### C BC #### [facility] [address] [address] [address] Shemar Armas Eosinophils/100 WBC (Bld) 0.8 % Critically low 0.9-7.0 [facility] Comment on above: Performed By: #### C BC #### [facility] [address] [place] [address] Dr. Shemar Armas Erythrocyte distribution width (RBC) [Ratio] 14.6 % Normal 11.0-15.0 [facility] Comment on above: Performed By: #### C BC #### [facility] [address] [place] [address] Dr. Shemar Armas Hematocrit (Bld) [Volume fraction] 36.4 % Normal 36.0-48.0 [facility] Comment on above: Performed By: #### C BC #### [facility] [address] [place] [address] Dr. Shemar Armas Hemoglobin (Bld) [Mass/Vol] 12.2 g/dL Normal 12.0-16.0 [facility] Comment on above: Performed By: #### C BC #### [facility] [address] [address] [address] Shemar Armas IG # 0.04 10e3/ul Critically high 0.00-0.03 [facility] Comment on above: Performed By: #### C BC #### [facility] [address] [address] [address] Shemar Armas IG % 0.3 % Normal 0.0-0.5 [facility] Comment on above: Performed By: #### C BC #### [facility] [address] [address] [address] Shemar Armas LYMPH # 2.1 103/ul Normal 1.2-3.8 [facility] Comment on above: Performed By: #### C BC #### [facility] [address] [place] [address] Dr. Shemar Armas Lymphocytes/100 WBC (Bld) 18.7 % Critically low 20.5-60.0 [facility] Comment on above: Performed By: #### C BC #### [facility] [address] [place] [address] Dr. Shemar Armas MANUAL DIFF REQ NO Normal [facility] Comment on above: Performed By: #### C BC #### [facility] [address] [place] [address] Dr. Shemar Armas MCH (RBC) [Entitic mass] 29.6 pg Normal 26.7-34.0 [facility] Comment on above: Performed By: #### C BC #### [facility] [address] [place] [address] Dr. Shemar Armas MCHC (RBC) [Mass/Vol] 33.5 g/dL Normal 29.9-35.2 [facility] Comment on above: Performed By: #### C BC #### [facility] [address] [place] [address] Dr. Shemar Armas MCV (RBC) [Entitic vol] 88.3 fL Normal 81.0-99.0 [facility] Comment on above: Performed By: #### C BC #### [facility] [address] [place] [address] Dr. Shemar Armas MONO # 0.7 103/ul Normal 0.3-0.8 [facility] Comment on above: Performed By: #### C BC #### [facility] [address] [place] [address] Dr. Shemar Armas Monocytes/100 WBC (Bld) 6.2 % Normal 1.7-12.0 [facility] Comment on above: Performed By: #### C BC #### [facility] [address] [address] [address] Shemar Armas NEUT # 8.4 103/ul Critically high 1.4-6.5 [facility] Comment on above: Performed By: #### C BC #### [facility] [address] [address] [address] Shemar Armas Neutrophils/100 WBC (Bld) 73.4 % Normal 43.0-75.0 [facility] Comment on above: Performed By: #### C BC #### [facility] [address] [address] [address] Shemar Armas Platelet mean volume (Bld) [Entitic vol] 9.2 fL Critically low 9.5-13.5 [facility] Comment on above: Performed By: #### C BC #### [facility] [address] [address] [address] Shemar Armas PLT 331 103/ul Normal 150-450 [facility] Comment on above: Performed By: #### C BC #### [facility] [address] [address] [address] Shemar Armas RBC 4.12 106/ul Critically low 4.20-5.40 [facility] Comment on above: Performed By: #### C BC #### [facility] [address] [address] [address] Shemar Armas WBC 11.4 103/ul Critically high 4.0-11.0 [facility] Comment on above: Performed By: #### C BC #### [facility] [address] [address] [address] Shemar Armas PROF CHEM 8 (BAS METB)on Anion gap [Moles/Vol] 11.5 mmol/L Normal [facility] Comment on above: Performed By: #### B MP #### [facility] [address] [address] [address] Shemar Armas Calcium [Mass/Vol] 8.9 mg/dL Normal 8.5-10.1 [facility] Comment on above: Performed By: #### B MP #### [facility] [address] [address] [address] Shemar Armas Chloride [Moles/Vol] 102 mmol/L Normal 98-107 [facility] Comment on above: Performed By: #### B MP #### [facility] [address] [address] [address] Shmear Armas CO2 [Moles/Vol] 29.6 mmol/L Normal 21.0-32.0 [facility] Comment on above: Performed By: #### B MP #### [facility] [address] [address] [address] Shemar Armas Creatinine [Mass/Vol] 1.93 mg/dL Critically high 0.55-1.02 [facility] Comment on above: Performed By: #### B MP #### [facility] [address] [address] [address] Shemar Armas EGFR-AF MOSOTHO 37 mL/min/1.73m2 Critically low >=60 [facility] Comment on above: Performed By: #### B MP #### [facility] [address] [address] [address] Shemar Armas EGFR-NON AF [place] 30 mL/min/1.73m2 Critically low >=60 [facility] Comment on above: Performed By: #### B MP #### [facility] [address] [address] [address] Shemar Armas Glucose [Mass/Vol] 93 mg/dL Normal 74-106 [facility] Comment on above: Performed By: #### B MP #### [facility] [address] [address] [address] Shemar Armas Potassium [Moles/Vol] 4.1 mmol/L Normal 3.5-5.1 [facility] Comment on above: Performed By: #### B MP #### [facility] [address] [address] [address] Shemar Armas Sodium [Moles/Vol] 139 mmol/L Normal 136-145 [facility] Comment on above: Performed By: #### B MP #### [facility] [address] [place] [address] Dr. Shemar Amras Urea nitrogen [Mass/Vol] 22.0 mg/dL Critically high 7.0-18 .0 [facility] Comment on above: Performed By: #### B MP #### [facility] [address] [place] [address] Dr. Shemar Armas Urea nitrogen/Creatinine [Mass ratio] 11.4 mg/mg Normal [facility] Comment on above: Performed By: #### B MP #### [facility] [address] [place] [address] Dr. Shemar Armas BNPon 06-29-2022 Natriuretic peptide B (Bld) [Mass/Vol] 159.0 pg/mL Normal <=450.0 [facility] Comment on above: Performed By: #### B MP #### [facility] [address] [place] [address] Dr. Shemar Armas CBC AUTO DIFFon 06-29-2022 BASO # 0.1 103/ul Normal 0.0-0.1 [facility] Comment on above: Performed By: #### P REG #### [facility] [address] [place] [address] Dr. Shemar Armas Basophils/100 WBC (Bld) 0.7 % Normal 0.2-2.0 [facility] Comment on above: Performed By: #### P REG #### [facility] [address] [place] [address] Dr. Shemar Armas EO # 0.1 103/ul Normal 0.0-0.7 [facility] Comment on above: Performed By: #### P REG #### [facility] [address] [place] [address] Dr. Shemar Armas Eosinophils/100 WBC (Bld) 1.4 % Normal 0.9-7.0 [facility] Comment on above: Performed By: #### P REG #### [facility] [address] [place] [address] Dr. Shemar Armas Erythrocyte distribution width (RBC) [Ratio] 14.5 % Normal 11.0-15.0 [facility] Comment on above: Performed By: #### P REG #### [facility] [address] [address] [address] Shemar Armas Hematocrit (Bld) [Volume fraction] 35.4 % Critically low 36.0-48.0 [facility] Comment on above: Performed By: #### P REG #### [facility] [address] [place] [address] Dr. Shemar Armas Hemoglobin (Bld) [Mass/Vol] 11.9 g/dL Critically low 12.0-16.0 [facility] Comment on above: Performed By: #### P REG #### [facility] [address] [place] [address] Dr. Shemar Armas IG # 0.05 10e3/ul Critically high 0.00-0.03 [facility] Comment on above: Performed By: #### P REG #### [facility] [address] [place] [address] Dr. Shemar Armas IG % 0.5 % Normal 0.0-0.5 [facility] Comment on above: Performed By: #### P REG #### [facility] [address] [place] [address] Dr. Shemar Armas LYMPH # 1.7 103/ul Normal 1.2-3.8 [facility] Comment on above: Performed By: #### P REG #### [facility] [address] [place] [address] Dr. Shemar Armas Lymphocytes/100 WBC (Bld) 17.3 % Critically low 20.5-60.0 [facility] Comment on above: Performed By: #### P REG #### [facility] [address] [place] [address] Dr. Shemar Armas MANUAL DIFF REQ NO Normal [facility] Comment on above: Performed By: #### P REG #### [facility] [address] [place] [address] Dr. Shemar Armas MCH (RBC) [Entitic mass] 29.5 pg Normal 26.7-34.0 [facility] Comment on above: Performed By: #### P REG #### [facility] [address] [address] [address] Shemar Armas MCHC (RBC) [Mass/Vol] 33.6 g/dL Normal 29.9-35.2 [facility] Comment on above: Performed By: #### P REG #### [facility] [address] [address] [address] Shemar Armas MCV (RBC) [Entitic vol] 87.8 fL Normal 81.0-99.0 [facility] Comment on above: Performed By: #### P REG #### [facility] [address] [address] [address] Shemar Armas MONO # 0.6 103/ul Normal 0.3-0.8 [facility] Comment on above: Performed By: #### P REG #### [facility] [address] [address] [address] Shemar Armas Monocytes/100 WBC (Bld) 6.3 % Normal 1.7-12.0 [facility] Comment on above: Performed By: #### P REG #### [facility] [address] [address] [address] Shemar Armas NEUT # 7.1 103/ul Critically high 1.4-6.5 [facility] Comment on above: Performed By: #### P REG #### [facility] [address] [address] [address] Shemar Armas Neutrophils/100 WBC (Bld) 73.8 % Normal 43.0-75.0 [facility] Comment on above: Performed By: #### P REG #### [facility] [address] [address] [address] Shemar Armas Platelet mean volume (Bld) [Entitic vol] 9.4 fL Critically low 9.5-13.5 [facility] Comment on above: Performed By: #### P REG #### [facility] [address] [address] [address] Shemar Armas PLT 350 103/ul Normal 150-450 [facility] Comment on above: Performed By: #### P REG #### [facility] [address] [address] [address] Shemar Armas RBC 4.03 106/ul Critically low 4.20-5.40 [facility] Comment on above: Performed By: #### P REG #### [facility] [address] [address] [address] Shemar Armas WBC 9.6 103/ul Normal 4.0-11.0 [facility] Comment on above: Performed By: #### P REG #### [facility] [address] [address] [address] Shemar Armas BASO # 0.0 103/ul Normal 0.0-0.1 [facility] Comment on above: Performed By: #### C BC #### [facility] [address] [place] [address] Dr. Shemar Armas Basophils/100 WBC (Bld) 0.6 % Normal 0.2-2.0 [facility] Comment on above: Performed By: #### C BC #### [facility] [address] [place] [address] Dr. Shemar Armas EO # 0.1 103/ul Normal 0.0-0.7 [facility] Comment on above: Performed By: #### C BC #### [facility] [address] [place] [address] Dr. Shemar Armas Eosinophils/100 WBC (Bld) 1.2 % Normal 0.9-7.0 [facility] Comment on above: Performed By: #### C BC #### [facility] [address] [place] [address] Dr. Shemar Armas Erythrocyte distribution width (RBC) [Ratio] 14.4 % Normal 11.0-15.0 [facility] Comment on above: Performed By: #### C BC #### [facility] [address] [place] [address] Dr. Shemar Armas Hematocrit (Bld) [Volume fraction] 29.3 % Critically low 36.0-48.0 [facility] Comment on above: Performed By: #### C BC #### [facility] [address] [address] [address] Shemar Armas Hemoglobin (Bld) [Mass/Vol] 9.9 g/dL Critically low 12.0-16.0 [facility] Comment on above: Performed By: #### C BC #### [facility] [address] [address] [address] Shemar Armas IG # 0.04 10e3/ul Critically high 0.00-0.03 [facility] Comment on above: Performed By: #### C BC #### [facility] [address] [address] [address] Shemar Armas IG % 0.6 % Critically high 0.0-0.5 [facility] Comment on above: Performed By: #### C BC #### [facility] [address] [address] [address] Shemar Armas LYMPH # 1.5 103/ul Normal 1.2-3.8 [facility] Comment on above: Performed By: #### C BC #### [facility] [address] [address] [address] Shemar Armas Lymphocytes/100 WBC (Bld) 20.1 % Critically low 20.5-60.0 [facility] Comment on above: Performed By: #### C BC #### [facility] [address] [place] [address] Dr. Shemar Armas MANUAL DIFF REQ NO Normal [facility] Comment on above: Performed By: #### C BC #### [facility] [address] [address] [address] Shemar Armas MCH (RBC) [Entitic mass] 29.9 pg Normal 26.7-34.0 [facility] Comment on above: Performed By: #### C BC #### [facility] [address] [address] [address] Shemar Armas MCHC (RBC) [Mass/Vol] 33.8 g/dL Normal 29.9-35.2 [facility] Comment on above: Performed By: #### C BC #### [facility] [address] [address] [address] Shemar Armas MCV (RBC) [Entitic vol] 88.5 fL Normal 81.0-99.0 [facility] Comment on above: Performed By: #### C BC #### [facility] [address] [address] [address] Shemar Armas MONO # 0.5 103/ul Normal 0.3-0.8 [facility] Comment on above: Performed By: #### C BC #### [facility] [address] [place] [address] Dr. Shemar Armas Monocytes/100 WBC (Bld) 7.5 % Normal 1.7-12.0 [facility] Comment on above: Performed By: #### C BC #### [facility] [address] [place] [address] Dr. Shemar Armas NEUT # 5.1 103/ul Normal 1.4-6.5 [facility] Comment on above: Performed By: #### C BC #### [facility] [address] [place] [address] Dr. Shemar Armas Neutrophils/100 WBC (Bld) 70.0 % Normal 43.0-75.0 [facility] Comment on above: Performed By: #### C BC #### [facility] [address] [place] [address] Dr. Shemar Armas Platelet mean volume (Bld) [Entitic vol] 9.2 fL Critically low 9.5-13.5 [facility] Comment on above: Performed By: #### C BC #### [facility] [address] [place] [address] Dr. Shemar Armas PLT 225 103/ul Normal 150-450 [facility] Comment on above: Performed By: #### C BC #### [facility] [address] [place] [address] Dr. Shemar Armas RBC 3.31 106/ul Critically low 4.20-5.40 [facility] Comment on above: Performed By: #### C BC #### [facility] [address] [place] [address] Dr. Shemar Armas WBC 7.2 103/ul Normal 4.0-11.0 [facility] Comment on above: Performed By: #### C BC #### [facility] [address] [place] [address] Dr. Shemar Armas IRONon 06-29-2022 Iron [Mass/Vol] 110.0 ug/dL Normal 50.0-170.0 [facility] Comment on above: Performed By: #### P REG #### [facility] [address] [place] [address] Dr. Shemar Armas PROF 14(COMP METB)on 022 Albumin [Mass/Vol] 4.0 g/dL Normal 3.4-5.0 [facility] Comment on above: Performed By: #### P REG #### [facility] [address] [place] [address] Dr. Shemar Armas Albumin/Globulin [Mass ratio] 1.1 {ratio} Normal [facility] Comment on above: Performed By: #### P REG #### [facility] [address] [place] [address] Dr. Shemar Armas ALP [Catalytic activity/Vol] 57 U/L Normal 46-116 [facility] Comment on above: Performed By: #### P REG #### [facility] [address] [place] [address] Dr. Shemar Armas ALT [Catalytic activity/Vol] 26 U/L Normal 14-59 [facility] Comment on above: Performed By: #### P REG #### [facility] [address] [place] [address] Dr. Shemar Armas Anion gap [Moles/Vol] 10.0 mmol/L Normal [facility] Comment on above: Performed By: #### P REG #### [facility] [address] [place] [address] Dr. Shemar Armas AST [Catalytic activity/Vol] 15 U/L Normal 15-37 [facility] Comment on above: Performed By: #### P REG #### [facility] [address] [place] [address] Dr. Shemar Armas Bilirubin [Mass/Vol] 0.2 mg/dL Normal 0.2-1.0 [facility] Comment on above: Performed By: #### P REG #### [facility] [address] [address] [address] Shemar Armas Calcium [Mass/Vol] 8.8 mg/dL Normal 8.5-10.1 [facility] Comment on above: Performed By: #### P REG #### [facility] [address] [address] [address] Shemar Armas Chloride [Moles/Vol] 105 mmol/L Normal 98-107 [facility] Comment on above: Performed By: #### P REG #### [facility] [address] [address] [address] Shemar Armas CO2 [Moles/Vol] 26.8 mmol/L Normal 21.0-32.0 [facility] Comment on above: Performed By: #### P REG #### [facility] [address] [address] [address] Shemar Armas Creatinine [Mass/Vol] 1.60 mg/dL Critically high 0.55-1.02 [facility] Comment on above: Performed By: #### P REG #### [facility] [address] [place] [address] Dr. Shemar Armas EGFR-AF MOSOTHO 46 mL/min/1.73m2 Critically low >=60 [facility] Comment on above: Performed By: #### P REG #### [facility] [address] [address] [address] Shemar Armas EGFR-NON AF [place] 38 mL/min/1.73m2 Critically low >=60 [facility] Comment on above: Performed By: #### P REG #### [facility] [address] [place] [address] Dr. Shemar Armas Globulin (S) [Mass/Vol] 3.5 g/dL Normal T [facility] Comment on above: Performed By: #### P REG #### [facility] [address] [place] [address] Dr. Shemar Armas Glucose [Mass/Vol] 98 mg/dL Normal 74-106 [facility] Comment on above: Performed By: #### P REG #### [facility] [address] [address] [address] Shemar Armas Potassium [Moles/Vol] 3.8 mmol/L Normal 3.5-5.1 [facility] Comment on above: Performed By: #### P REG #### [facility] [address] [address] [address] Shemar Armas Protein [Mass/Vol] 7.5 g/dL Normal 6.4-8.2 [facility] Comment on above: Performed By: #### P REG #### [facility] [address] [place] [address] Dr. Shemar Armas Sodium [Moles/Vol] 138 mmol/L Normal 136-145 [facility] Comment on above: Performed By: #### P REG #### [facility] [address] [place] [address] Dr. Shemar Armas Urea nitrogen [Mass/Vol] 24.0 mg/dL Critically high 7.0-18 .0 [facility] Comment on above: Performed By: #### P REG #### [facility] [address] [place] [address] Dr. Shemar Armas Urea nitrogen/Creatinine [Mass ratio] 15.0 mg/mg Normal [facility] Comment on above: Performed By: #### P REG #### [facility] [address] [address] [address] Shemar Armas Albumin [Mass/Vol] 3.3 g/dL Critically low 3.4-5.0 [facility] Comment on above: Performed By: #### B MP #### [facility] [address] [place] [address] Dr. Shemar Armas Albumin/Globulin [Mass ratio] 1.1 {ratio} Normal [facility] Comment on above: Performed By: #### B MP #### [facility] [address] [address] [address] Shemar Armas ALP [Catalytic activity/Vol] 55 U/L Normal 46-116 [facility] Comment on above: Performed By: #### B MP #### [facility] [address] [address] [address] Shemar Armas ALT [Catalytic activity/Vol] 21 U/L Normal 14-59 [facility] Comment on above: Performed By: #### B MP #### [facility] [address] [address] [address] Shemar Armas Anion gap [Moles/Vol] 8.1 mmol/L Normal [facility] Comment on above: Performed By: #### B MP #### [facility] [address] [address] [address] Shemar Arams AST [Catalytic activity/Vol] 13 U/L Critically low 15-37 [facility] Comment on above: Performed By: #### B MP #### [facility] [address] [address] [address] Shemar Armas Bilirubin [Mass/Vol] 0.1 mg/dL Critically low 0.2-1.0 [facility] Comment on above: Performed By: #### B MP #### [facility] [address] [address] [address] Shemar Armas Calcium [Mass/Vol] 7.5 mg/dL Critically low 8.5-10.1 [facility] Comment on above: Performed By: #### B MP #### [facility] [address] [address] [address] Shemar Armas Chloride [Moles/Vol] 107 mmol/L Normal 98-107 [facility] Comment on above: Performed By: #### B MP #### [facility] [address] [address] [address] Shemar Armas CO2 [Moles/Vol] 24.5 mmol/L Normal 21.0-32.0 [facility] Comment on above: Performed By: #### B MP #### [facility] [address] [address] [address] Shemar Armas Creatinine [Mass/Vol] 2.03 mg/dL Critically high 0.55-1.02 [facility] Comment on above: Performed By: #### B MP #### [facility] [address] [address] [address] Shemar Armas EGFR-AF MOSOTHO 35 mL/min/1.73m2 Critically low >=60 [facility] Comment on above: Performed By: #### B MP #### [facility] [address] [address] [address] Shemar Armas EGFR-NON AF MOSOTHO 29 mL/min/1.73m2 Critically low >=60 [facility] Comment on above: Performed By: #### B MP #### [facility] [address] [address] [address] Shemar Armas Globulin (S) [Mass/Vol] 2.9 g/dL Normal [facility] Comment on above: Performed By: #### B MP #### [facility] [address] [address] [address] Shemar Armas Glucose [Mass/Vol] 111 mg/dL Critically high 74-106 [facility] Comment on above: Performed By: #### B MP #### [facility] [address] [address] [address] Shemar Armas Potassium [Moles/Vol] 3.6 mmol/L Normal 3.5-5.1 [facility] Comment on above: Performed By: #### B MP #### [facility] [address] [address] [address] Shemar Armas Protein [Mass/Vol] 6.2 g/dL Critically low 6.4-8.2 [facility] Comment on above: Performed By: #### B MP #### [facility] [address] [address] [address] Shemar Armas Sodium [Moles/Vol] 136 mmol/L Normal 136-145 [facility] Comment on above: Performed By: #### B MP #### [facility] [address] [address] [address] Shemar Armas Urea nitrogen [Mass/Vol] 28.0 mg/dL Critically high 7.0-18 .0 [facility] Comment on above: Performed By: #### B MP #### [facility] [address] [place] [address] Dr. Shemar Armas Urea nitrogen/Creatinine [Mass ratio] 13.8 mg/mg Normal [facility] Comment on above: Performed By: #### B MP #### [facility] [address] [place] [address] Dr. Shemar Armas TROPONIN, HIGH SENSITIVITYon 06-29-2022 HSTROP 4.8 pg/mL Normal 4.0-51.3 [facility] Comment on above: Result Comment: CUT- OFF POINTS HAVE BEEN ESTABLISHED BASED ON THE FOURTH UNIVERSAL DEFINITIONS OF MYOCARDIAL INFARCTION. THE UPPER REFERENCE LIMIT (URL) OF TROPONIN, DEFINED THE 99TH PERCENTILE OF cTnI DISTRIBUTION IN A REFERENCE POPULATION, HAS BEEN CONFIRMED THE DECISION THRESHOLD FOR [place] DIAGNOSIS. Performed By: #### B MP #### [facility] [address] [place] [address] Dr. Shemar Armas INSULINon 04-27-2022 Insulin 15.8 uIU/mL Normal 2.6-24.9 [facility] Comment on above: Performed By: #### I NSULIN #### [facility] [address] [place] [address] Dr. Shemar Armas T4, T3U, FTI LABCORPon 04-27 Free Thyroxine Index 3.1 Normal 1.2-4.9 [facility] Comment on above: Performed By: #### T HYLC #### [facility] [address] [place] [address] Dr. Shemar Armas T3 Uptake 31 % Normal 24-39 [facility] Comment on above: Performed By: #### T HYLC #### [facility] [address] [place] [address] Dr. Shemar Armas T4 [Mass/Vol] 10.1 ug/dL Normal 4.5-12.0 [facility] Comment on above: Performed By: #### T HYLC #### [facility] [address] [place] [address] Dr. Shemar Armas CBC AUTO DIFFon 04-26-2022 BASO # 0.1 103/ul Normal 0.0-0.1 [facility] Comment on above: Performed By: #### B MP #### [facility] [address] [address] [address] Shemra Armas Basophils/100 WBC (Bld) 0.7 % Normal 0.2-2.0 [facility] Comment on above: Performed By: #### B MP #### [facility] [address] [place] [address] Dr. Shemar Armas EO # 0.1 103/ul Normal 0.0-0.7 [facility] Comment on above: Performed By: #### B MP #### [facility] [address] [place] [address] Dr. Shemar Armas Eosinophils/100 WBC (Bld) 0.9 % Normal 0.9-7.0 [facility] Comment on above: Performed By: #### B MP #### [facility] [address] [place] [address] Dr. Shemar Armas Erythrocyte distribution width (RBC) [Ratio] 13.7 % Normal 11.0-15.0 [facility] Comment on above: Performed By: #### B MP #### [facility] [address] [place] [address] Dr. Shemar Armas Hematocrit (Bld) [Volume fraction] 41.8 % Normal 36.0-48.0 [facility] Comment on above: Performed By: #### B MP #### [facility] [address] [place] [address] Dr. Shemar Armas Hemoglobin (Bld) [Mass/Vol] 13.9 g/dL Normal 12.0-16.0 [facility] Comment on above: Performed By: #### B MP #### [facility] [address] [place] [address] Dr. Shemar Armas IG # 0.03 10e3/ul Normal 0.00-0.03 [facility] Comment on above: Performed By: #### B MP #### [facility] [address] [place] [address] Dr. Shemar Armas IG % 0.3 % Normal 0.0-0.5 [facility] Comment on above: Performed By: #### B MP #### [facility] [address] [place] [address] Dr. Shemar Armas LYMPH # 1.8 103/ul Normal 1.2-3.8 [facility] Comment on above: Performed By: #### B MP #### [facility] [address] [place] [address] Dr. Shemar Armas Lymphocytes/100 WBC (Bld) 21.0 % Normal 20.5-60.0 [facility] Comment on above: Performed By: #### B MP #### [facility] [address] [place] [address] Dr. Shemar Armas MANUAL DIFF REQ NO Normal [facility] Comment on above: Performed By: #### B MP #### [facility] [address] [place] [address] Dr. Shemar Armas MCH (RBC) [Entitic mass] 28.8 pg Normal 26.7-34.0 [facility] Comment on above: Performed By: #### B MP #### [facility] [address] [place] [address] Dr. Shemar Armas MCHC (RBC) [Mass/Vol] 33.3 g/dL Normal 29.9-35.2 [facility] Comment on above: Performed By: #### B MP #### [facility] [address] [place] [address] Dr. Shemar Armas MCV (RBC) [Entitic vol] 86.7 fL Normal 81.0-99.0 [facility] Comment on above: Performed By: #### B MP #### [facility] [address] [place] [address] Dr. Shemar Armas MONO # 0.7 103/ul Normal 0.3-0.8 [facility] Comment on above: Performed By: #### B MP #### [facility] [address] [place] [address] Dr. Shemar Armas Monocytes/100 WBC (Bld) 7.9 % Normal 1.7-12.0 [facility] Comment on above: Performed By: #### B MP #### [facility] [address] [address] [address] Shemar Armas NEUT # 6.0 103/ul Normal 1.4-6.5 [facility] Comment on above: Performed By: #### B MP #### [facility] [address] [address] [address] Shemar Armas Neutrophils/100 WBC (Bld) 69.2 % Normal 43.0-75.0 [facility] Comment on above: Performed By: #### B MP #### [facility] [address] [place] [address] Dr. Shemar Armas Platelet mean volume (Bld) [Entitic vol] 9.7 fL Normal 9.5-13.5 [facility] Comment on above: Performed By: #### B MP #### [facility] [address] [place] [address] Dr. Shemar Armas PLT 322 103/ul Normal 150-450 [facility] Comment on above: Performed By: #### B MP #### [facility] [address] [place] [address] Dr. Shemar Armas RBC 4.82 106/ul Normal 4.20-5.40 [facility] Comment on above: Performed By: #### B MP #### [facility] [address] [place] [address] Dr. Shemar Armas WBC 8.7 103/ul Normal 4.0-11.0 [facility] Comment on above: Performed By: #### B MP #### [facility] [address] [place] [address] Dr. Shemar Armas GLYCOHEMOGLOBIN A1Con 2021 ADA RECOMMENDATION SEE BELOW Normal [facility] Comment on above: Result Comment: ADA RECOMMENDED LIMIT 4.0 - 6.0 ADA THERAPEUTIC TARGET < 7.0 ACTION SUGGESTED > 7.0 Performed By: #### P REG #### [facility] [address] [place] [address] Dr. Shemar Armas Glucose [Mass/Vol] 108 mg/dL Normal [facility] Comment on above: Performed By: #### P REG #### [facility] [address] [address] [address] Shemar Armas HbA1c (Bld) [Mass fraction] 5.4 % Normal 4.5-6.2 [facility] Comment on above: Performed By: #### P REG #### [facility] [address] [address] [address] Shemar Armas IRONon 04-26-2022 Iron [Mass/Vol] 55.0 ug/dL Normal 50.0-170.0 [facility] Comment on above: Performed By: #### I CYNDI #### [facility] [address] [address] [address] Shemar Armas LIPID PROFILEon 04-26-2022 CHOL-HDL RATIO NORM SEE BELOW Normal [facility] Comment on above: Result Comment: 3.3 - 4.4 LOW RISK 4.4 - 7.1 AVERAGE RISK 7.1 - 11.0 MODERATE RISK >11.0 HIGH RISK Performed By: #### P REG #### [facility] [address] [place] [address] Dr. Shemar Armas Cholesterol [Mass/Vol] 205 mg/dL Critically high <=200 [facility] Comment on above: Performed By: #### P REG #### [facility] [address] [place] [address] Dr. Shemar Armas Cholesterol in HDL [Mass/Vol] 57 mg/dL Normal 40-60 [facility] Comment on above: Performed By: #### P REG #### [facility] [address] [address] [address] Shemar Armas Cholesterol in LDL [Mass/Vol] 126.8 mg/dL Normal [facility] Comment on above: Performed By: #### P REG #### [facility] [address] [place] [address] Dr. Shemar Armas Cholesterol.total/Choles terol in HDL [Mass ratio] 3.6 {ratio} Normal [facility] Comment on above: Performed By: #### P REG #### [facility] [address] [address] [address] Shemar Armas HDL NORMAL > or = 60 mg/dl - LOW CARDIOVASCULAR RISK <40 mg/dl - HIGH CARDIOVASCULAR RISK Normal [facility] Comment on above: Performed By: #### P REG #### [facility] [address] [address] [address] Shemar Armas LDL CALC NORMAL SEE BELOW Normal [facility] Comment on above: Result Comment: <100 mg/dl OPTIMAL 100 - 129 mg/dl NEAR OR ABOVE OPTIMAL 130 - 159 mg/dl BORDERLINE HIGH 160 - 189 mg/dl HIGH >190 mg/dl VERY HIGH Performed By: #### P REG #### [facility] [address] [address] [address] Shemar Armas Triglyceride [Mass/Vol] 106 mg/dL Normal <=150 [facility] Comment on above: Performed By: #### P REG #### [facility] [address] [address] [address] Shemar Armas VLDL CALC 21.2 mg/dL Normal [facility] Comment on above: Performed By: #### P REG #### [facility] [address] [address] [address] Shemar Armas PROF 14(COMP METB)on 022 Albumin [Mass/Vol] 4.3 g/dL Normal 3.4-5.0 [facility] Comment on above: Performed By: #### T SH, CMP, LIPID #### [facility] [address] [address] [address] Shemar Armas Albumin/Globulin [Mass ratio] 1.2 {ratio} Normal [facility] Comment on above: Performed By: #### T SH, CMP, LIPID #### [facility] [address] [address] [address] Shemar Armas ALP [Catalytic activity/Vol] 62 U/L Normal 46-116 [facility] Comment on above: Performed By: #### T SH, CMP, LIPID #### [facility] [address] [address] [address] Shemar Armas ALT [Catalytic activity/Vol] 34 U/L Normal 14-59 [facility] Comment on above: Performed By: #### T SH, CMP, LIPID #### [facility] [address] [address] [address] Shemar Armas Anion gap [Moles/Vol] 13.7 mmol/L Normal [facility] Comment on above: Performed By: #### T SH, CMP, LIPID #### [facility] [address] [address] [address] Shemar Armas AST [Catalytic activity/Vol] 22 U/L Normal 15-37 [facility] Comment on above: Performed By: #### T SH, CMP, LIPID #### [facility] [address] [place] [address] Dr. Shemar Armas Bilirubin [Mass/Vol] 0.3 mg/dL Normal 0.2-1.0 [facility] Comment on above: Performed By: #### T SH, CMP, LIPID #### [facility] [address] [place] [address] Dr. Shemar Armas Calcium [Mass/Vol] 9.1 mg/dL Normal 8.5-10.1 [facility] Comment on above: Performed By: #### T SH, CMP, LIPID #### [facility] [address] [place] [address] Dr. Shemar Armas Chloride [Moles/Vol] 98 mmol/L Normal 98-107 [facility] Comment on above: Performed By: #### T SH, CMP, LIPID #### [facility] [address] [address] [address] Shemar Armas CO2 [Moles/Vol] 29.9 mmol/L Normal 21.0-32.0 [facility] Comment on above: Performed By: #### T SH, CMP, LIPID #### [facility] [address] [place] [address] Dr. Shemar Armas Creatinine [Mass/Vol] 1.27 mg/dL Critically high 0.55-1.02 [facility] Comment on above: Performed By: #### T SH, CMP, LIPID #### [facility] [address] [place] [address] Dr. Shemar Armas EGFR-AF MOSOTHO 59 mL/min/1.73m2 Critically low >=60 [facility] Comment on above: Performed By: #### T SH, CMP, LIPID #### [facility] [address] [place] [address] Dr. Shemar Armas EGFR-NON AF MOSOTHO 49 mL/min/1.73m2 Critically low >=60 [facility] Comment on above: Performed By: #### T SH, CMP, LIPID #### [facility] [address] [place] [address] Dr. Shemar Armas Globulin (S) [Mass/Vol] 3.6 g/dL Normal [facility] Comment on above: Performed By: #### T SH, CMP, LIPID #### [facility] [address] [place] [address] Dr. Shemar Armas Glucose [Mass/Vol] 92 mg/dL Normal 74-106 [facility] Comment on above: Performed By: #### T SH, CMP, LIPID #### [facility] [address] [place] [address] Dr. Shemar Armas Potassium [Moles/Vol] 3.6 mmol/L Normal 3.5-5.1 [facility] Comment on above: Performed By: #### T SH, CMP, LIPID #### [facility] [address] [place] [address] Dr. Shemar Armas Protein [Mass/Vol] 7.9 g/dL Normal 6.4-8.2 [facility] Comment on above: Performed By: #### T SH, CMP, LIPID #### [facility] [address] [place] [address] Dr. Shemar Armas Sodium [Moles/Vol] 138 mmol/L Normal 136-145 [facility] Comment on above: Performed By: #### T SH, CMP, LIPID #### [facility] [address] [place] [address] Dr. Shemar Armas Urea nitrogen [Mass/Vol] 16.0 mg/dL Normal 7.0-18.0 [facility] Comment on above: Performed By: #### T SH, CMP, LIPID #### [facility] [address] [address] [address] Shemar Armas Urea nitrogen/Creatinine [Mass ratio] 12.6 mg/mg Normal [facility] Comment on above: Performed By: #### T SH, CMP, LIPID #### [facility] [address] [address] [address] Shemar Armas TSHon 04-26-2022 TSH 3.031 uIU/mL Normal 0.358-3.740 [facility] Comment on above: Performed By: #### P REG #### [facility] [address] [address] [address] Shemar Armas Vital Signs Date Time Vital Sign Value Performing Clinician Facility 10-02-2022 16:00-0500 Body height 160.02 cm [facility] Other 10-02-2022 16:00-0500 Body mass index (BMI) [Ratio] 42.69 kg/m2 [facility] Other 10-02-2022 16:00-0500 Body weight 109.32 kg Bonnie [facility] Other [facility] Other 09-28-2022 15:55-0500 Diastolic blood pressure 60 mm[Hg] MD Donnell Brooke Work Phone: [facility] 09-28-2022 15:55-0500 Heart rate 76 /min MD Donnell Brooke Work Phone: [facility] 09-28-2022 15:55-0500 Respiratory rate 16 /min MD Donnell Brooke Work Phone: [facility] 09-28-2022 15:55-0500 SaO2% (BldA) [Mass fraction] 98 % MD Donnell Brooke Work Phone: [facility] 09-28-2022 15:55-0500 Systolic blood pressure 123 mm[Hg] MD Donnell Brooke Work Phone: [facility] 09-28-2022 14:33-0500 Body height 162.56 cm MD Donnell Brooke Work Phone: [facility] 09-28-2022 14:33-0500 Body mass index (BMI) [Ratio] 41.6 kg/m2 MD Donnell Brooke Work Phone: [facility] 09-28-2022 14:33-0500 Body weight 110 kg MD Donnell Brooke Work Phone: [facility] 09-28-2022 12:25-0500 Body temperature 98 [degF] MD Donnell Brooke Work Phone: [facility] 07-30-2022 15:29-0500 Blood Pressure Location Sanjay GEMMAL [facility] 07-30-2022 15:29-0500 Diastolic blood pressure 83 mm[Hg] Sanjay MENENDEZL [facility] 07-30-2022 15:29-0500 Heart rate 75 /min Sanjay NILL [facility] 07-30-2022 15:29-0500 Respiratory rate 16 /min Sanjay NILL [facility] 07-30-2022 15:29-0500 Systolic blood pressure 124 mm[Hg] Sanjay NILL [facility] Encounters Encounter Date Encounter Type Care Provider Facility Start: 06-12-2023 End: 06-12-2023 ambulatory Bonnie Jeffrey Other [facility] Other Start: 06-12-2023 Office outpatient vi sit 15 minutes [facility] Start: 03-20-2023 End: 03-20-2023 ambulatory Bonnie Jeffrey Other [facility] Other Start: 03-20-2023 Office outpatient vi sit 15 minutes Bonnie Calvey [facility] Start: 01-24-2023 End: 01-24-2023 ambulatory Bonnie Calvey Other [facility] Other Start: 01-24-2023 Office outpatient vi sit 15 minutes Bonnie Calvey [facility] Start: 12-11-2022 End: 12-11-2022 ambulatory Bonnie R Calvey Facility:[facility] Start: 11-13-2022 End: 11-13-2022 ambulatory Bonnie R Calvey Facility:[facility] Start: 11-13-2022 End: 11-13-2022 Patient encounter procedure MD Donnell Brooke Work Phone: [facility] Start: 11-13-2022 End: 11-13-2022 ambulatory MD Donnell Brooke Work Phone: [facility] Work Phone: Start: 11-13-2022 Postop follow up vis it related to original px Bonnie Calvey [facility] Start: 10-23-2022 End: 10-23-2022 ambulatory Bonnie Calvey Other [facility] Other Start: 10-23-2022 Postop follow up vis it related to original px Bonnie Calvey [facility] Start: 10-10-2022 End: 10-11-[address] DONNLEL BROOKE . Facility: Start: 10-09-2022 End: 10-09-2022 ambulatory Bonnie Calvey Other [facility] Other Start: 10-09-2022 Postop follow up vis it related to original px Bonnie Calvey [facility] Start: 10-02-2022 End: 10-02-2022 ambulatory Bonnie Calvey Other [facility] Other Start: 10-02-2022 Postop follow up vis it related to original px Bonnie Jeffrey [facility] Start: 10-02-2022 Telephone encounter Bonnie Jeffrey [facility] Start: 09-28-2022 End: 09-28-2022 ambulatory Bonnie Jeffrey Facility:[facility] Start: 09-28-2022 End: 09-28-2022 Admission to same day surgery center MD Donnell Brooke Work Phone: [facility] [place] Start: 09-26-2022 End: 09-26-2022 ambulatory Bonnie Edwige Shreyayaniv Facility:[facility] Start: 09-26-2022 End: 09-26-2022 ambulatory MD Donnell Brooke Work Phone: [facility] Work Phone: Start: 09-26-2022 End: 09-26-2022 Patient encounter procedure MD Donnell Brooke Work Phone: [facility] Work Phone: Start: 09-25-2022 End: 09-25-[address] DONNELL BROOKE . Facility: Start: 09-21-2022 ambulatory Sanjay ZUÑIGA Facility :[facility] Start: 09-14-2022 Encounter for preprocedural laboratory examination DR SANJAY ZUÑIGA . [facility] Start: 09-12-2022 End: 09-13-2022 ambulatory Sanjay ZUÑIGA Facility:[id number] Start: 09-11-2022 End: 10-06-[address] DONNELL BROOKE . Facility: Start: 09-07-2022 End: 09-08-[address] DONNELL BROOKE . Facility: Start: 09-07-2022 End: 09-08-2022 Encounter for preprocedural laboratory examination DR DONNELL BROOKE . Facility: Start: 07-30-2022 End: 07-31-2022 ambulatory Donnell Brooke PROVIDER Facility: [facility] Start: 07-30-2022 End: 07-30-2022 Patient encounter procedure Sanjay ZUÑIGA [facility] [place] Start: 07-10-2022 ambulatory Donnell Brooke PROVIDER Facility:[facility] Start: 07-09-2022 End: 07-10-[address] [...] abnormal findings DR DONNELL BROOKE . [facility] Start: 04-26-2022 End: 04-27-[address] [...] tooth M ichannel NILL PILONIDAL CYST EXCISION Mesis ael NILL TARSAL TUNNEL RELEASE 1 Messi ael NILL Comment on above: LEFT Tonsillectomy Sanjay ZUÑIGA Plan of Treatment Date Care Activity Detail Author Start: 09-28-2022 [facility] Start: 09-28-2022 [facility] Patient referral [facility] Work Phone: Immunizations Immunization Date Immunization Notes Care Provider Josue cheema NEGATED: Highlighted row has not occurred!07-30-2022 influenza virus vaccine, unspecified formulation Sanjay ZUÑIGA [facility] [place] Payers Date Payer Category Payer Self-pay 2022 Unknown [id number] 1990 Unknown [id number] 2.16.8 40.1.355095.3.579.2.727 1990 Unknown [id number] 2.16.8 40.1.302139.3.579.2.727 1990 Unknown [id number] 2.16.8 40.1.841619.3.579.2.727 1990 Unknown [id number] 2.16.8 40.1.224047.3.579.2.727 1990 Unknown [id number] 2.16.8 40.1.963835.3.579.2.727 1990 Unknown [id number] 2.16.84 0.1.641742.3.579.2.593 1990 Unknown [id number] 2.16.84 0.1.488989.3.579.2.593 1990 Unknown [id number] 2.16.84 0.1.041450.3.579.2.593 1990 Unknown [id number] 2.16.84 0.1.400677.3.579.2.593 1990 Unknown [id number] 2.16.84 0.1.783675.3.579.2.593 1990 Unknown [id number] 2.16.84 0.1.149971.3.579.2.593 1990 Unknown [id number] 2.16.84 0.1.156535.3.579.2.593 1990 Unknown [id number] 2.16.84 0.1.837607.3.579.2.593 1990 Unknown [id number] 2.16.84 0.1.674647.3.579.2.593 1990 Unknown [id number] 2.16.84 0.1.670853.3.579.2.593 1990 Unknown [id number] 2.16.84 0.1.529540.3.579.2.593 1990 Unknown [id number] 2.16.84 0.1.523638.3.579.2.593 1959 Unknown [id number] [id number] Unknown [id number] 2.16.8 40.1.035185.3.579.2.531 Unknown [id number] 2.16.8 40.1.387808.3.579.2.531 Unknown [id number] 2.16.8 40.1.224546.3.579.2.531 Unknown [id number] 2.16.8 40.1.007135.3.579.2.531 Social History Date Type Detail Facility Start: 07-30-2022 End: 09-28-2022 Tobacco smoking status Never smoked tobacco (finding) [facility] Tobacco smoking status Never [facility] Sex Assigned At Female [facility] Start: 1990 Sex Assigned At Female [facility] Goals Date Patient Goal Desired Activity /State Functional Status Date Assessment Result Facility 07-30-2022 Functional Status N/A [facility] Clinical Notes 08-20-2022 to 06-12-2023 Note [...] Other specified postprocedural states (ICD-10 - Z98.890) [facility] Other 07-26-2023 Evaluation note* Encounter Date Diagnosis Assessment Notes Treatment Notes Treatment Clinical Notes Feb, Crushing injury of right thumb, subsequent encounter (ICD-10 - S67.01XD) Patient instructed to keep cuticle moisturized and pushed back. Activity as tolerated Feb, Injury of nail bed o f finger of right hand, subsequent encounter (ICD-10 - S69.91XD) Feb, Other specified postprocedural states (ICD-10 - Z98.890) [facility] Other 06-01-2023 Evaluation note* Encounter Date Diagnosis [...] Other specified postprocedural states (ICD-10 - Z98.890) [facility] Other 03-21-2023 Evaluation note* Encounter Date Diagnosis [...] Other specified postprocedural states (ICD-10 - Z98.890) [facility] Other 02-28-2023 Evaluation note* Encounter Date Diagnosis Assessment Notes Treatment Notes Treatment Clinical Notes Sep, Crushing injury of right thumb, initial encounter (ICD-10 - S67.01XA) Patient instructed on the use of moisturizer for the nailbed. Return to work note given Sep, Injury of nail bed of right thumb, initial encounter (ICD-10 - S69.91XA) [facility] Other 02-14-2023 Evaluation note* Encounter Date Diagnosis Assessment Notes Treatment Notes Treatment Clinical Notes Sep, Crushing injury of right thumb, initial encounter (ICD-10 - S67.01XA) Patient instructed to continue with current wound care and use of stax splint. Continue off work Sep, Injury of nail bed of right thumb, initial encounter (ICD-10 - S69.91XA) [facility] Other 02-07-2023 Evaluation note* Encounter Date Diagnosis Assessment Notes Treatment Notes Treatment Clinical Notes Sep, Crushing injury of right thumb, initial encounter (ICD-10 - S67.01XA) Patient instructed to continue daily soaking. Rx given for Zofran due to vomitting from narcotics Sep, Injury of nail bed of right thumb, initial encounter (ICD-10 - S69.91XA) [facility] Other 01-31-2023 NotePROCEDURE: XR HAND RT MIN [...] Electronically authenticated by: MYAH LEAL Date: 2022-09-25 07:51[facility]01-18-2023 NoteOPERATIVE NOTE OPERATION DATE: 09/12/2022 [...] in good condition. CC: [facility] physicianThe [facility] [id number] NoteChief Complaint consultation for RUQ pain HPI [...] morphine (Chest pain) Soc[facility] (more content not included)...[facility] Result Comment: Electronically Signed By: SOL ESPINOZA, Sanjay Paredes\Date and Time Signed: 08/20/22 10:27 ESTEvaluation + Plan note No data available for this section [facility] [place] Evaluation noteNo assessment information available [facility] Work Phone: Evaluation noteNo InformationNortRoxbury Treatment Center [facility] Other [place] general Narrative - Reported* Type Description Date Medical History depression Medical History bradycardia Medical History tachycardia Surgical History tonsillectomy Surgical History pylenol cysts Surgical History wisdom teeth Surgical History plantar fasciitis, tarsal tunne l x 2 right foot [employer] [facility] [employer] Other [place] general Narrative - Reported* Type Description Date Medical History depression Medical History bradycardia Medical History tachycardia Surgical History tonsillectomy Surgical History pylenol cysts Surgical History wisdom teeth Surgical History plantar fasciitis, tarsal tunne l x 2 right foot Surgical History right thumb I & D 09/28/2022 [facility] [employer] Other Hospital Discharge instructions No data available for this section [facility] [place] Progress note No data available for this section [facility] [place] Chief Complaint and Reason for Visit Chief [...] section and content) DATE CREATED AUTHOR 09/29/2022 [facility] DATE CREATED AUTHOR AUTHOR'S ORGANIZ ATION [facility]2022 [facility] DATE CREATED AUTHOR AUTHOR'S ORGANIZ ATION 12/15/2022 [facility] REASON FOR VISIT (unrecogniz ed section and [...] BE BASED ON THE PRIMARY CLINICAL RECORDS. [employer] provides no warranty or guarantee of the accuracy or completeness of information in this document.
--- NOTE | 2024-06-11 18:36 | XR_ITS ---
The [address] [address] Patient Name: JAREK FIELD MRN: [id number] date: 1990 Sex: F Assigned Patient Location: [facility] Current Patient Location: Accession/Order Number: [id number] Exam Date: 06/11/2024 18:30 Report Date: 06/15/2024 07:50 At the request of: DONNELL ALLEN Procedure: XR ankle RT 2V PROCEDURE: XR ankle RT 2V COMPARISON: 05/21/2024 HISTORY: Ankle pain, right, M25.571 FINDINGS: BONES:Stable transverse fracture inferior lateral malleolus with 4 mm of distraction laterally. No significant bone formation or bony bridging. No new fracture or dislocation. Minimal enthesopathic spurring plantar calcaneus SOFT TISSUES:Soft tissue swelling EFFUSION:None visible. OTHER: Negative. XR/XR ankle RT 2V IMPRESSION: Stable lateral malleolus fracture with no bony bridging Electronically authenticated by: THOM ANGELA Date: 06/15/2024 07:50
== END 2024-06-11 18:28 | disposition home or self-care (01) ==
LOC: RAD 18:27
PROVIDERS: PCP Family Medicine; Visit Provider Family Medicine
DX: M25.571 Pain in right ankle and joints of right foot (principal); S82.61XD Displaced fracture of lateral malleolus of right fibula, subsequent encounter for closed fracture with routine healing
CPT/HCPCS: 73600

== ENCOUNTER 2024-06-29 12:43 | Outpatient (OUT) | payer OTHER, SELFPAY ==
--- NOTE | 2024-06-29 | XR_ITS ---
[address] [address] Patient Name: JAREK FIELD MRN: [id number] date: 1990 Sex: F Assigned Patient Location: Current Patient Location: Accession/Order Number: [id number] Exam Date: 06/29/2024 12:45 Report Date: 06/30/2024 15:10 At the request of: MYAH FUENTES Procedure: XR ankle RT min 3V PROCEDURE: XR ankle RT min 3V COMPARISON: 05/21/2024 HISTORY: RIGHT ANKLE PAIN FINDINGS: BONES:Stable transverse fracture tip of the lateral malleolus with 3 mm of distraction. No significant bone formation or bony bridging. No new fracture or dislocation. Degenerative changes with marginal osteophyte formation SOFT TISSUES:Negative. No visible soft tissue swelling. EFFUSION:None visible. OTHER: Negative. XR/XR ankle RT min 3V IMPRESSION: Stable fracture distal tip of the lateral malleolus Electronically authenticated by: THOM ANGELA Date: 06/30/2024 15:10
== END 2024-06-29 12:44 | disposition home or self-care (01) ==
LOC: EC 12:43
PROVIDERS: PCP Family Medicine; Visit Provider Orthopaedic Surgery
DX: M25.571 Pain in right ankle and joints of right foot (principal); S82.61XA Displaced fracture of lateral malleolus of right fibula, initial encounter for closed fracture
CPT/HCPCS: 73610

== ENCOUNTER 2024-07-02 17:24 | Outpatient (OUT) | payer OTHER, SELFPAY ==
--- NOTE | 2024-07-02 17:47 | US_ITS ---
The [address] [address] Patient Name: JAREK FIELD MRN: [id number] date: 1990 Sex: F Assigned Patient Location: US Current Patient Location: Accession/Order Number: [id number] Exam Date: 07/02/2024 18:00 Report Date: 07/03/2024 06:44 At the request of: DONNELL ALLEN Procedure: US thyroid EXAMINATION: US thyroid HISTORY: ENLARGED THYROID E04.9 COMPARISON: Ultrasound thyroid 06/26/2023 FINDINGS: RIGHT LOBE: Slightly heterogeneous echotexture and contains a 12 mm TR 4 nodule within mid right lobe/isthmus. Lobe size: 3.8 x 1.5 1.3 cm LEFT LOBE: Slightly heterogeneous echotexture and contains a 7 mm TR 3 nodule within inferior pole. Lobe size: 4.7 x 1.5 x 1.8 cm ISTHMUS: Normal size and echotexture. Thickness: 2 mm US/US thyroid IMPRESSION: 1. Right lobe/isthmus 12 mm TR 4 nodule; stable to minimally increased in size. Ultrasound-guided tissue sampling should be considered. TR4 (moderately suspicious): If > 1.0 cm, follow-up ultrasound in 1, 2, 3, and 5 years. If > 1.5 cm, fine needle aspiration (FNA). TR3 (mildly suspicious): > 1.5 cm, follow-up ultrasound in 1, 3, and 5 years. > 2.5 cm, fine needle aspiration. Electronically authenticated by: MYAH LEAL Date: 07/03/2024 06:44
== END 2024-07-02 17:25 | disposition home or self-care (01) ==
LOC: US 17:25
PROVIDERS: PCP Family Medicine; Visit Provider Family Medicine
DX: E04.9 Nontoxic goiter, unspecified (principal)
CPT/HCPCS: 76536

== ENCOUNTER 2024-08-03 09:40 | Day surgery (SDC) | payer OTHER, SELFPAY ==
--- NOTE | 2024-08-03 09:50 | US_ITS ---
[address] [address] Patient Name: JAREK FIELD MRN: [id number] date: 1990 Sex: F Assigned Patient Location: Current Patient Location: Accession/Order Number: [id number] Exam Date: 08/03/2024 09:51 Report Date: 08/03/2024 14:35 At the request of: DONNELL ALLEN Procedure: US biopsy thyroid EXAMINATION: US biopsy thyroid HISTORY: Right Thyroid Nodule COMPARISON: Ultrasound thyroid 07/02/2024 TECHNIQUE: After obtaining informed consent, ultrasound-guided fine needle aspiration was performed in the usual sterile manner. FINDINGS: IMAGING: Ultrasound. BIOPSY NEEDLE: 25-gauge; 3 separate passes. LOCATION: Right lobe 1.0 cm TR 4 nodule. SPECIMEN TYPE: Cellular tissue. LOCAL ANESTHETIC: Buffered Xylocaine. COMPLICATIONS: None. LABORATORY: Prepared slide smears and washings for cell block evaluation. OTHER: Negative. PATHOLOGY: Pending. An addendum will be added when results are available. US/US biopsy thyroid IMPRESSION: 1. Uneventful ultrasound guided fine needle aspiration (FNA). 2. Pathology results are pending. Electronically authenticated by: MYAH LEAL Date: 08/03/2024 14:35
[2024-08-03 09:55] VITALS: BP 132/99; PULSE 82; O2SAT 95
[2024-08-03] MEDS: LIDOCAINE HCL 10 ML, SODIUM BICARBONATE 1 MEQ INJ (10:30)
--- NOTE | 2024-08-03 11:15 | SUR.PREOP ---
07/21/24 Pt instructed on procedure, date, time, and prep.
== END 2024-08-03 10:50 | disposition home or self-care (01) ==
LOC: US 09:41
PROVIDERS: Radiology Diagnostic Radiology; PCP Family Medicine; Visit Provider Family Medicine
DX: E04.1 Nontoxic single thyroid nodule (principal)
CPT/HCPCS: 10005; 88173

== ENCOUNTER 2024-09-12 01:11 | Emergency (ER) | payer OTHER, SELFPAY ==
[2024-09-12 01:15] VITALS: BP 149/94; PULSE 94; TEMP 36.8; O2SAT 95; BMI 49.6
--- OUTSIDE RECORDS SUMMARY | 2024-09-12 01:17 | XMS_ITS | CCD ---
Author Organization [facility] CliniSytn Care Team Providers Care Pool Installer Name Role Phone Donnell Brooke Primary Care Physician MD Bonnie Jeffrey Attending Provider [phone] MD Donnell Brooke Primary Care Provider [phone] Edwardo PROVIDERDonnell Referring Unavailabl e NILL, Sanjay Gibbons Attending Unavailable NILL, Sanjay Gibbons Attending Unavailable NILL, Sanjay Gibbons Attending Unavailable NILL, Sanjay Gibbons Attending Unavailable Hoy PROVIDERDonnell Referring Unavailabl e NILL, Sanjay Gibbons Attending Unavailable Bonnie Jeffrey Unavailable MD Bonnie Jeffrey Attending Provider MD Donnell Brooke Primary Care Provider [phone] MARTHAY ., DR JACOBO Primary Care [...] REINECK, DR SUJEY Anthony Consulting Unavailabl e ZIMORTEZA, DR MYAH Gibbons Consulting Unavailable DIAB ., SOHAIL Consulting Unavailable MARKER ., DR VEGA Admitting Unavailable MARKER ., DR VEGA Consulting Unavailable HOY ., DR JACOBO Primary Care Unavailable MARKER ., DR VEGA Attending Unavailable Donnell Brooke MD Primary Care Provider [phone] Willa Hanks DO Unavailable Edis Morales DO Unavailable EDIS MORALES Attending Unavailable DONNELL BROOKE Referring Unavailable Donnell Brooke MD Primary Care Provider [phone] Donnell Brooke MD Attending Provider Edis Morales DO Attending Provider Donnell Brooke Attending Unavailable Donnell Brooke Admitting Unavailable Donnell Brooke Primary Care Unavailable Edis Morales Admitting Unavailable Edis Morales Attending Unavailable Donnell Brooke Primary Care Unavailable Allergies Allergy Classification Reported Allergen(s) Allergy Type Date of Onset Reaction(s) Facility (8 sources) Morphine; Translations: [morphine] Drug Allergy 3 Chest pain (finding) [facility] [place] (20 sources) SILVER; Translations: [SILVER] Allergy to substance 4 INFECTION, Edema, silver wound pack reversed healing, Edema, silver wound pack reversed healing [facility] Comment on above: reversed healing (5 sources) irbesartan; Translations: [irbesartan] Drug Allergy 3 Unknown Reaction [facility] Comment on above: renal failure (1 source) MOR[facility] SUBSTITUTE; Translations: [MORPHINE SUBSTITUTE] Propensity to adverse reactions (disorder) [facility] (1 source) Morphine Drug Allergy [facility] Medications Current Medications Medication Drug Class(es) Dates Sig (Normalized) Sig (Original) acebutolol 200 mg oral capsule (17 sources) beta-Adrenergic Ana Start: 09-26-2022 take 1 capsule by mouth in the morning acebutolol (Sectral) 200 MG capsule Take 200 mg by mouth in the morning and 200 mg before bedtime. 08/20/2024 Active Start: 07-27-2022 take 1 capsule by [facility] twice daily acebutolol 200 mg Cap 200 mg = 1 cap(s), Oral, BID, Refills(s) 0 Start Date: 07/27/22 Status: Ordered take 1 capsule by [facility] every twenty-four hours Acebutolol HCl 200 MG 1 capsule Orally Once a day Active acetaminophen 500 mg oral tablet (1 source) Start: 09-07-2024 take 2 tablets by mouth every six hours as needed for pain Acetaminophen (Tylenol Extra Strength) 500 mg tablet Active 1000 MG PO Every 6 hours as needed for pain September 07, 2024 12:00am acetaminophen 300 mg / codeine phosphate 30 mg oral tablet (5 sources) Opioid Agonist Start: 10-09-2022 take 1-2 tablets by mouth every six hours as needed Acetaminophen-Codei ne #3 300-30 MG 1-2 tablet as needed Orally every 6 hrs for 7 days Sep, Active 24 hr buPROPion hydrochloride 300 mg extended release oral tablet (12 sources) Aminoketone Start: 09-26-2022 take 1 tablet by mouth once daily in the morning Bupropion Hcl 300 mg tablet extended release 24 hr Active 300 MG PO Every morning September 26, 2022 12:00am Start: 07-27-2022 take 1 tablet by alo once daily Wellbutrin XL 300 mg/24 hours Tab-ER 300 mg = 1 tab(s), Oral, Daily, Refills(s) 0 Start Date: 07/27/22 Status: Ordered take 1 tablet by alo th every twenty-four hours buPROPion HCl ER (SR) 100 MG 1 tablet in the morning Orally Once a day Active DULoxetine 60 mg delayed release oral capsule (6 sources) Serotonin and Norepinephrine Reuptake Inhibitor Start: 08-06-2024 take 1 capsule by mouth once daily in the morning Duloxetine 60 mg capsule,delayed release(DR/EC) Active 60 MG PO Every morning September 07, 2024 12:00am hydroCHLOROthiazide 50 mg / triamterene 75 mg oral tablet (17 sources) Potassium-sparing Diuretic, Thiazide Diuretic Start: 07-27-2022 take 1 tablet by mouth once daily in the morning triamterene-hydroch lorothiazide (Maxzide) 75-50 MG tablet TAKE 1 TABLET BY MOUTH EVERY DAY IN THE MORNING FOR 90 DAYS 07/28/2024 Active lamoTRIgine 200 mg oral tablet (6 sources) Mood Stabilizer, Anti-epileptic Agent Start: 09-07-2024 Lamotrigine 200 mg tablet Active 300 MG PO Daily at bedtime September 07, 2024 12:00am Start: 08-03-2024 take 1 tablet by alo th once daily lamoTRIgine (LaMICtal) 200 MG tablet TAKE 1 & 1/2 (ONE & ONE-HALF) TABLETS BY MOUTH ONCE DAILY 08/03/2024 Active levonorgestrel 0.423870 mg/hr intrauterine system (3 sources) Progestin, Progestin-containing Intrauterine Device Start: 09-26-2022 Levonorgestrel (Mirena) 20 mcg/24 hours (8 yrs) 52 mg Intrauterine Device Active 20 MCG INTRAUTERI Daily September 26, 2022 12:00am losartan potassium 25 mg oral tablet (1 source) Angiotensin 2 Receptor Ana Start: 07-27-2022 take 1 tablet by mouth once daily losartan 25 mg Tab 25 mg = 1 tab(s), Oral, Daily, Refills(s) 0 Start Date: 07/27/22 Status: Ordered melatonin 1 mg oral tablet (1 source) Start: 09-07-2024 Melatonin (Children's Sleep (Melatonin)) 1 mg tablet,chewable Active 2 MG PO Daily as needed for sleep September 07, 2024 12:00am ondansetron 4 mg oral tablet (5 sources) Serotonin-3 Receptor Antagonist Start: 10-02-2022 take 1 tablet by mouth every eight hours as needed Ondansetron HCl 4 MG 1 tablet Orally every 8 hours prn for 7 days Sep, Active oxaprozin 600 mg oral tablet (17 sources) Nonsteroidal Anti-inflammatory Drug Start: 09-26-2022 take 1 tablet by mouth once daily oxaprozin (Daypro) 600 MG tablet Take 600 mg by mouth Daily 08/20/2024 Active Start: 09-26-2022 take 1200 mg by mout h once daily at bedtime Oxaprozin Active 1200 MG PO Daily at bedtime September 26, 2022 1:00am Start: 07-27-2022 take 2 tablets by mo uth once daily oxaprozin 600 mg Tab 1,200 mg = 2 tab(s), Oral, Daily, Refills(s) 0 Start Date: 07/27/22 Status: Ordered pantoprazole 40 mg delayed release oral tablet (17 sources) Proton Pump Inhibitor Start: 09-26-2022 take 1 tablet by mouth in the morning pantoprazole (ProtoNix) 40 MG EC tablet Take 40 mg by mouth in the morning and 40 mg before bedtime. 08/06/2024 Active Start: 07-30-2022 take 1 tablet by alo th twice daily Pantoprazole [address] Tab 40 mg = 1 tab(s), Oral, BID, Refills(s) 0 Start Date: 07/30/22 Status: Ordered take 1 tablet by alo th every twenty-four hours Pantoprazole Sodium 40 MG 1 tablet Orally Once a day Active potassium chloride 20 meq extended release oral tablet (6 sources) Start: 09-07-2024 take 2 tablets by mouth once daily in the evening Potassium Chloride 20 mEq tablet extended release Active 40 MEQ PO Every evening September 07, 2024 12:00am Start: 08-20-2024 take 1 tablet by alo th at mealtime potassium chloride CR (K-Tab) 20 MEQ ER tablet Take 20 mEq by mouth Take with food. 08/20/2024 Active sucralfate 1000 mg oral tablet (16 sources) Aluminum Complex Start: 09-26-2022 sucralfate (C arafate) 1 g tablet 2024 Active take 1 tablet by alo th every twelve hours Sucralfate 1 GM 1 tablet on an empty stomach Orally Twice a day Active take 1 tablet by mouth twice mesha ly Sucralfate 1 GM 1 tablet on an empty stomach Orally Twice a day Active tiZANidine 4 mg oral tablet (17 sources) Central alpha-2 Adrenergic Agonist Start: 08-06-2024 take 2 tablets by mouth once daily at bedtime tiZANidine (Zanaflex) 4 MG tablet TAKE 2 TABLETS BY MOUTH EVERYDAY AT BEDTIME 08/06/2024 Active Start: 09-26-2022 take 4-8 mg by mouth once daily at bedtime as needed for pain Tizanidine 4 mg tablet Active 4 - 8 MG PO Daily at bedtime as needed for Pain September 26, 2022 12:00am Start: 09-26-2022 take 4-8 mg by mouth once daily at bedtime Tizanidine Active 4 - 8 MG PO Daily at bedtime September 26, 2022 1:00am Start: 07-27-2022 take 2 tablets by [facility] at bedtime tiZANidine 4 mg Tab 8 mg = 2 tab(s), Oral, Bedtime, Refills(s) 0 Start Date: 07/27/22 Status: Ordered take 1 capsule by mo [facility] every eight hours tiZANidine HCl 4 MG 1 capsule as needed Orally Three times a day Active Completed/Discontinued Medications Medication Drug Class(es) Dates Sig (Normalized) Sig (Original) acetaminophen 325 mg / HYDROcodone bitartrate 5 mg oral tablet (5 sources) Opioid Agonist Start: 09-28-2022 End: 09-07-2024 take 1 tablet by mouth every four to six hours as needed for pain Hydrocodone-Acetami nophen 5-325 mg tablet Discontinued 1 - 2 TAB PO EVERY 4-6 HOURS as needed for pain 30 4 September 28, 2022 September 07, 2024 11:38am Start: 09-26-2022 End: 09-07-2024 take 1 tablet by mouth every six hours as needed for pain Hydrocodone-Acetaminophen 5-325 mg table t Discontinued 1 TAB PO Q6H as needed for Pain September 26, 2022 12:00am September 07, 2024 11:38am doxycycline hyclate 100 mg oral tablet (2 sources) Tetracycline-class Drug Start: 09-28-2022 End: 09-07-2024 take 1 tablet by mouth twice daily Doxycycline Hyclate 100 mg tablet Discontinued 100 MG PO Twice daily 10 September 28, 2022 12:00am September 07, 2024 11:38am QUEtiapine 100 mg oral tablet (12 sources) Atypical Antipsychotic Start: 09-26-2022 End: 09-07-2024 take 1 tablet by mouth once daily at bedtime Quetiapine 100 mg tablet Discontinued 100 MG PO Daily at bedtime September 26, 2022 12:00am September 07, 2024 11:39am Start: 07-27-2022 SEROquel 100 m g Tab 150 mg = 1.5 tab(s), Oral, Bedtime, Refills(s) 0 Start Date: 07/27/22 Status: Ordered Problems Active Problems Problem Classification Problem Date [...] injury of right thumb, subsequent encounter] Episodic E Codes: Other specified and classifiable (1 source) Caught, crushed, jammed, or pinched between moving objects, initial encounter; Translations: [CAUGHT CRUSH/PINCH BTWN MOV OBJ INT] Onset: 09-27-2022 Episodic Esophageal disorders (1 source) Gastro-esophageal reflux disease without esophagitis; Translations: [GERD WITHOUT ESOPHAGITIS] Onset: 09-18-2022 Chronic Fracture of upper limb (3 sources) Fracture of phalanx of finger; Translations: [Fracture of unspecified phalanx of unspecified finger, initial encounter for closed fracture] Onset: 09-27-2022 09-28-2022 Episodic Comment on above: Problem List clean-u p per request of Phys. EHR Cmte Gastritis and duodenitis (1 source) Unspecified chronic gastritis without bleeding; Translations: [UNS CHRONIC GASTRITIS W/O BLEEDING] Onset: 09-18-2022 Chronic Hypertension with complications and secondary hypertension (1 source) Hypertensive heart disease with heart failure; Translations: [HTN HEART DISEASE W/HEART FAIL] Onset: 07-05-2022 Chronic Open wounds of extremities (2 sources) Laceration of nail bed of finger ; Translations: [Laceration without foreign body of unspecified finger with damage to nail, initial encounter] 09-28-2022 Episodic Comment on above: Problem List clean-u p per request of Phys. 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 EHR Cmte Other nutritional; endocrine; and metabolic disorders (1 [...] RESULTS KIDNEY FUNCTION STDY] Onset: 10-10-2022 Episodic Residual codes; unclassified (4 sources) Other specified postprocedural states Episodic Spondylosis; intervertebral disc disorders; other back problems (4 sources) Other cervical disc degeneration, unspecified cervical region; Translations: [OTH CERV DISC DEGENERATION UNS CERV] Onset: 09-11-2022 Chronic Thyroid disorders (2 sources) Thyroid nodule; Translations: [Nontoxic single thyroid nodule] 09-01-2024 Chronic Unclassified (1 source) CONTACT W/AND (SUSP) EXPOS COVID-19; Translations: [CONTACT W/AND (SUSP) EXPOS COVID-19] Onset: 09-14-2022 Past or Other Problems Problem Classification Problem Date Documented Date Episodic/Chronic Acute and unspecified renal failure (1 source) Acute kidney failure, unspecified; Translations: [ACUTE KIDNEY FAILURE UNSPECIFIED] Onset: 07-09-2022 Episodic Conditions associated with dizziness or vertigo (3 sources) Dizziness and giddiness; Translations: [DIZZINESS AND GIDDINESS] Onset: 06-28-2022 Episodic Disorders of lipid metabolism (7 sources) Hypercholesterolemia; Translations: [Pure hypercholesterolemia, unspecified] Onset: 09-18-2022 Resolved: 08-29-2024 07-27-2022 Chronic Essential hypertension (8 sources) Hypertensive disorder; Translations: [Essential (primary) hypertension] Onset: 09-18-2022 Resolved: 08-29-2024 03-24-2013 Chronic Fluid and electrolyte disorders (4 sources) Dehydration; Translations: [DEHYDRATION] Onset: 07-04-2022 Episodic Headache; including migraine (6 sources) Migraine; Translations: [Migraine, unspecified, not intractable, without status migrainosus] Onset: 08-29-2024 Resolved: 08-29-2024 07-27-2022 Chronic Neoplasms of unspecified nature or uncertain behavior (1 source) Myelodysplastic syndrome, unspecified; Translations: [MYELODYSPLASTIC SYNDROME UNS] Onset: 07-05-2022 Episodic Other circulatory disease (7 sources) Orthostatic hypotension; Translations: [Orthostatic hypotension] Onset: 06-29-2022 Resolved: 08-29-2024 07-27-2022 Episodic Other circulatory disease (5 sources) Hypotension, unspecified; Translations: [HYPOTENSION UNSPECIFIED] Onset: 07-02-2022 Episodic Other circulatory disease (3 sources) Orthostatic hypotension; Translations: [ORTHOSTATIC HYPOTENSION] Onset: 07-05-2022 Episodic Other nutritional; endocrine; and metabolic disorders (6 sources) Body mass index 40+ - severely obese; Translations: [Body mass index (BMI) 40.0-44.9, adult] Onset: 08-29-2024 Resolved: 08-29-2024 07-30-2022 Chronic Other nutritional; endocrine; and metabolic disorders (6 sources) Morbid obesity; Translations: [Morbid (severe) obesity due to excess calories] Onset: 08-29-2024 Resolved: 08-29-2024 07-27-2022 Chronic Other skin disorders (6 sources) H/O: skin disorder; Translations: [Personal history of diseases of the skin and subcutaneous tissue] Onset: 08-29-2024 Resolved: 08-29-2024 07-27-2022 Episodic Poisoning by other medications and drugs (1 source) Poisoning by other antihypertensive drugs, accidental (unintentional), initial encounter; Translations: [PSN OTH ANTIHYPERTENSIV RX ACC INIT] Onset: 07-02-2022 Episodic Residual codes; unclassified (6 sources) Insomnia; Translations: [Insomnia, unspecified] Onset: 08-29-2024 Resolved: 08-29-2024 07-27-2022 Episodic Spondylosis; intervertebral disc disorders; other back problems (10 sources) Cervical radiculopathy; Translations: [Radiculopathy, cervical region] Onset: 02-15-2022 Resolved: 08-29-2024 07-27-2022 Episodic Results Test Name Value Interpretation Reference Range Facility Basic Metabolic Panelon 08-26 Anion gap [Moles/Vol] 12.6 mmol/L Normal 6.0-15.0 [facility] Comment on above: Performed By: #### P TH, BMP, TSH3 #### [facility] [address] [place] [address] [place] Calcium [Mass/Vol] 9.3 mg/dL Normal 8.6-10.3 [facility] Comment on above: Performed By: #### P TH, BMP, TSH3 #### [facility] [address] [place] [address] [place] Chloride [Moles/Vol] 100 mmol/L Normal 98-107 The Count Includes [facility] Comment on above: Performed By: #### P TH, BMP, TSH3 #### [facility] [address] [place] [address] [place] CO2 [Moles/Vol] 30.1 mmol/L Normal 21.0-31.0 [facility] Comment on above: Performed By: #### P TH, BMP, TSH3 #### [facility] [address] [place] [address] [place] Creatinine [Mass/Vol] 1.10 mg/dL Normal 0.60-1.20 The Count Includes [facility] Comment on above: Performed By: #### P TH, BMP, TSH3 #### [facility] [address] [place] [address] [place] GFR/1.73 sq M.predicted MDRD (S/P/Bld) [Vol rate/Area] mL/min/{1.73_m2} Normal The Count Includes [facility] Comment on above: Performed By: #### P TH, BMP, TSH3 #### [facility] [address] Glucose [Mass/Vol] 81 mg/dL Normal 70-100 [facility] Comment on above: Result Comment: [place] Glucose Reference Range is dependent on time and content of last meal. Glucose of more than 200 mg/dL in a nonstressed, ambulatory subject supports the diagnosis of Diabetes Mellitus. ADA recommended reference range Performed By: #### P TH, BMP, TSH3 #### [facility] [address] [place] [address] [place] Potassium [Moles/Vol] 3.7 mmol/L Normal 3.5-5.1 The Count Includes [facility] Comment on above: Performed By: #### P TH, BMP, TSH3 #### [facility] [address] [place] [address] [place] Sodium [Moles/Vol] 139 mmol/L Normal 136-145 [facility] Comment on above: Performed By: #### P TH, BMP, TSH3 #### [facility] [address] [place] [address] [place] Urea nitrogen [Mass/Vol] 12 mg/dL Normal 7-25 The Count Includes [facility] Comment on above: Performed By: #### P TH, BMP, TSH3 #### [facility] [address] Calcium [Mass/volume] in Ser um or PlasmaOrdered By: Edis Morales on 09-07-2024 Calcium [Mass/Vol] Calcium [Mass/volume] in Serum or Plasma 8.6-10.3 [facility] Carbon dioxide, total [Moles /volume] in Serum or PlasmaOrdered By: Edis Morales on 09-07-2024 CO2 [Moles/Vol] Carbon dioxide, total [Moles/volume] in Serum or Plasma 21.0-31.0 [facility] Chloride [Moles/volume] in S f[place] or PlasmaOrdered By: Edis Morales on 09-07-2024 Chloride [Moles/Vol] Chloride [Moles/volume] in Serum or Plasma 98-107 [facility] Creatinine [Mass/volume] in Serum or PlasmaOrdered By: Edis Morales on 09-07-2024 Creatinine [Mass/Vol] Creatinine [Mass/volume] in Serum or Plasma 0.60-1.20 [facility] Glucose [Mass/volume] in Ser um or PlasmaOrdered By: Edis Morales on 09-07-2024 Glucose [Mass/Vol] Glucose [Mass/volume] in Serum or Plasma 70-100 [facility] Comment on above: ADA recommended refe rence rangeRandom Glucose Reference Range is dependent on time and content of last meal. Glucose of more than 200 mg/dL in a nonstressed, ambulatory subject supports the diagnosis of Diabetes Mellitus. No Panel InformationOrdered By: Edis Morales on 09-07-2024 Estimated GFR (CKD-EPI) > 60.0 mL/Min [facility] Creatinine Clearance (Chem N/A [facility] Parathyrin.intact [Mass/Vol] on 09-07-2024 PARATHYROID HORMONE INTACT 23 pg/mL pg/mL [facility] Parathyrin.intact [Mass/volu me] in Serum or PlasmaOrdered By: Edis Morales on 09-07-2024 Parathyrin.intact [Mass/Vol] Parathyrin.intact [Mass/volume] in Serum or Plasma [facility] Parathyroid Hormone Intacton 09-07-2024 Parathyroid Hormone Intact 23.0 pg/mL Normal The Count Includes [facility] Comment on above: Result Comment: PERF ORMED BY: [place] [address] PATHOLOGIST DIGITAL ADVERTISING SPECIALIST SHAWANDA MCKEON M.D. Performed By: #### P TH, BMP, TSH3 #### [facility] [address] [place] [id number] [facility] Potassium [Moles/volume] in Serum or PlasmaOrdered By: Edis Morales on 09-07-2024 Potassium [Moles/Vol] Potassium [Moles/volume] in Serum or Plasma 3.5-5.1 [facility] Serum or plasma anion gap de terminationOrdered By: Edis Morales on 09-07-2024 Anion gap [Moles/Vol] Serum or plasma anion gap determination 6.0-15.0 [facility] Sodium [Moles/volume] in Ser um or PlasmaOrdered By: Edis Morales on 09-07-2024 Sodium [Moles/Vol] Sodium [Moles/volume] in Serum or Plasma 136-145 [facility] Thyroid Stimulating Hormoneo n 09-07-2024 TSH Qn 3.14 m[IU]/L Normal 0.45-5.[address] [facility] Comment on above: Result Comment: PERF ORMED BY: [address] [id number] PATHOLOGIST DIGITAL ADVERTISING SPECIALIST SHAWANDA MCKEON M.D. Performed By: #### P TH, BMP, TSH3 #### [facility] [address] [place] [id number] [place] Thyrotropin [Units/volume] i n Serum or PlasmaOrdered By: Edis Morales on 09-07-2024 TSH Qn Thyrotropin [Units/volume] in Serum or Plasma 0.45-5.33 [facility] Urea nitrogen [Mass/volume] in Serum or PlasmaOrdered By: Edis Morales on 09-07-2024 Urea nitrogen [Mass/Vol] Urea nitrogen [Mass/volume] in Serum or Plasma 7-25 [facility] Philip 08-03-2024 L -- Specimen: [id number] Received: 08/04/24 Status: PHILIP Simmons Num: [id number] Spec Type: Cytology Subm Dr: Donnell Brooke MD Tissues: A FNA SLIDES NOPATH (RT THY NOD) Procedures: Cyto Int and ReJEANNEN/Millicent -- Age/ Patient Sex Location Account Attending Physician -- Veronica Ross 33/F LABELL [id number] Donnell Brooke MD -- SPEC NUM: [id number] RECD: 08/04/24 STATUS: PHILIP BOYDQ NUM: [id number] TAYLOR: 08/03/24- DR: Donnell Brooke MD ENTERED: 08/04/[address] [facility] [address]: Francesca Marcos SPEC TYPE: Cytology DEPT: [facility] ENTERED BY: [id number] RECV BY: [id number] ORDERED: Cyto Int and Re, PAPSTN/5 ORDERED: Cyto Int and Re, PAPSTN/5 Pathological Diagnosis Right thyroid nodule,?fine needle aspiration:? Suspicious for follicular neoplasm. 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 [place] Category IV Clinical Information Right Thyroid Nodule Gross Description Received fixed is 30 ml very pale pink clear fluid for cytology said to have been obtained as Right Thyroid Nodule. ThinPrep preparations are prepared for microscopic examination. Also received are 4 spray fixed smeared slides for pap and a Veracyte vial stored at -20 for microscopic examination. (YC/nh) CPT Codes 39272 -- -- Specimen: [id number] Received: 08/04/24 Status: PHILIP Lauraq Num: [id number] Spec Type: Cytology Subm Dr: Donnell Brooke MD Tissues: A FNA SLIDES NOPATH (RT THY NOD) Procedures: Cyto Int and Re, PAPSTN/5 -- Patient: Veronica Ross [id number] (Continued) -- Signed (signatu re on file) Shawanda Mckeon MD 08/05/24 1754 Normal The Count Includes [facility] XR hand RT min 3V*on 023 XR hand RT min 3V* [facility] LMN-1 Other XR hand RT min 3V* [facility] Other XR hand RT min 3V* [address] [place] [address] Tempo AI Other XR hand RT min 3V* [place] [address] [employer] Other XR hand RT min 3V* XRay Report [employer] Other XR hand RT min 3V* Signed [employer] Other XR hand RT min 3V* Patient: Veronica Ross MR#: [id number] [employer] Other XR hand RT min 3V* 7018 [employer] Other XR hand RT min 3V* : 1990 Acct:[id number] [employer] Other XR hand RT min 3V* Age/Sex: 32 / F ADM Date: 11/13/22 [employer] Other XR hand RT min 3V* Loc: [facility] Room: Type: [facility] Tempo AI Other XR hand RT min 3V* Attending Dr: Bonnie Jeffrey MD [employer] Other XR hand RT min 3V* Copies to: Bonnie Jeffrey MD [employer] Other XR hand RT min 3V* Ordering Provider: Bonnie Jeffrey MD [employer] Other XR hand RT min 3V* Date of Service: 11/13/22 [employer] Other XR hand RT min 3V* XR/XR hand RT min 3V*: Crushing injury of right thumb, subsequent [employer] Other XR hand RT min 3V* encounter [employer] Other XR hand RT min 3V* XR hand RT min 3V* 11/13/2022 3:49 PM [employer] Other XR hand RT min 3V* SIGNS AND SYMPTOMS: Status post incision and debridement of open fracture of right thumb, follow-up [employer] Other XR hand RT min 3V* PROTOCOL: Frontal, lateral, and oblique radiographs of the right hand [employer] Other XR hand RT min 3V* COMPARISON: 09/25/2022 [employer] Other XR hand RT min 3V* FINDINGS: [employer] Other XR hand RT min 3V* Healing/healed fracture of the distal phalanx of the right thumb. There is no change in alignment. [employer] Other XR hand RT min 3V* The joint spaces are preserved. No significant soft tissue swelling. [employer] Other XR hand RT min 3V* XR/XR hand RT min 3V* [employer] Other XR hand RT min 3V* IMPRESSION: [employer] Other XR hand RT min 3V* Impression dictated by: Kalpesh Murry M.D.11/13/2022 5:23 PM [employer] Other XR hand RT min 3V* Dictation Location: [place] [address] [facility] [employer] Other XR hand RT min 3V* Transcribed By: SHAY 11/13/22 1723 [employer] Other XR hand RT min 3V* Dictated By: Kalpesh Murry II, MD 11/13/22 [facility] [employer] Other XR hand RT min 3V* Signed By: [employer] Other XR hand RT min 3V* 11/13/[address] [place] [address] LMN-1 Other PROF CHEM 8 (BAS METB)on Anion gap [Moles/Vol] 11.0 mmol/L Normal [facility] Comment on above: Performed By: #### B MP #### [facility] [address] [address] [address] Shemar Armas Calcium [Mass/Vol] 8.8 mg/dL Normal 8.5-10.1 [facility] Comment on above: Performed By: #### B MP #### [facility] [address] [address] [address] Shemar Armas Chloride [Moles/Vol] 100 mmol/L Normal 98-107 [facility] Comment on above: Performed By: #### B MP #### [facility] [address] [address] [address] Shemar Armas CO2 [Moles/Vol] 31.5 mmol/L Normal 21.0-32.0 [facility] Comment on above: Performed By: #### B MP #### [facility] [address] [address] [address] Shemar Armas Creatinine [Mass/Vol] 1.18 mg/dL Critically high 0.55-1.02 [facility] Comment on above: Performed By: #### B MP #### [facility] [address] [address] [address] Shemar Armas EGFR-AF LEBANESE >60 Normal >=60 [facility] Comment on above: Performed By: #### B MP #### [facility] [address] [address] [address] Shemar Armas EGFR-NON AF LEBANESE 53 mL/min/1.73m2 Critically low >=60 [facility] Comment on above: Performed By: #### B MP #### [facility] [address] [address] [address] Shemar Armas Glucose [Mass/Vol] 89 mg/dL Normal 74-106 [facility] Comment on above: Performed By: #### B MP #### [facility] [address] [address] [address] Shemar Armas Potassium [Moles/Vol] 3.5 mmol/L Normal 3.5-5.1 [facility] Comment on above: Performed By: #### B MP #### [facility] [address] [address] [address] Shemar Armas Sodium [Moles/Vol] 139 mmol/L Normal 136-145 [facility] Comment on above: Performed By: #### B MP #### [facility] [address] [address] [address] Shemar Armas Urea nitrogen [Mass/Vol] 11.0 mg/dL Normal 7.0-18.0 [facility] Comment on above: Performed By: #### B MP #### [facility] [address] [address] [address] Shemar Armas Urea nitrogen/Creatinine [Mass ratio] 9.3 mg/mg Normal [facility] Comment on above: Performed By: #### B MP #### [facility] [address] [address] [address] Shemar Armas HCG ( test) Aiden benjamin Ql (U)Ordered By: THOM DUONG on 09-28-2022 HCG ( test) Ql (U) Negative [facility] Albumin [Mass/volume] in Ser um or PlasmaOrdered By: Bonnie Jeffrey on 09-26-2022 Albumin [Mass/Vol] 4.0 g/dL 3.2-5.5 [facility] Basophils Auto (Bld) [#/Vol] Ordered By: Bonnie Jeffrey on 09-26-2022 Basophils (Bld) [#/Vol] 0.1 10*3/uL 0.0-0.2 [facility] Basophils/100 WBC Auto (Bld) Ordered By: Bonnie Jeffrey on 09-26-2022 Basophils/100 WBC (Bld) 1.2 % . [facility] Creatinine and Glomerular fi ltration rate.predicted panel (S/P/Bld)Ordered By: Bonnie Jeffrey on 09-26-2022 Creatinine [Mass/Vol] 1.82 mg/dL 0.44-1.03 [facility] Eosinophils Auto (Bld) [#/Vo l]Ordered By: Bonnie Jeffrey on 09-26-2022 Eosinophils (Bld) [#/Vol] 0.1 10*3/uL 0.0-0.45 [facility] Eosinophils/100 WBC Auto (Bl d)Ordered By: Bonnie Jeffrey on 09-26-2022 Eosinophils/100 WBC (Bld) 0.9 % . [facility] Erythrocyte distribution wid th Auto (RBC) [Ratio]Ordered By: Bonnie Jeffrey on 09-26-2022 Erythrocyte distribution width (RBC) [Ratio] 13.6 % 11.9-15.3 [facility] Estimated glomerular filtrat ion rate (GFR) non- AmericanOrdered By: Bonnie Jeffrey on 09-26-2022 GFR/1.73 sq M.predicted among non-blacks MDRD (S/P/Bld) [Vol rate/Area] 32 mL/Min [facility] Globulin Calc (S) [Mass/Vol] Ordered By: Bonnie Jeffrey on 09-26-2022 Globulin (S) [Mass/Vol] 2.8 g/dL [facility] Hematocrit Auto (Bld) [Volum e fraction]Ordered By: Bonnie Jeffrey on 09-26-2022 Hematocrit (Bld) [Volume fraction] 40.2 % 34.0-46.4 [facility] Hemoglobin [Mass/volume] in BloodOrdered By: Bonnie Jeffrey on 09-26-2022 Hemoglobin (Bld) [Mass/Vol] 13.3 g/dL 11.8-15.4 [facility] Leukocytes [#/volume] correc franco for nucleated erythrocytes in Blood by Automated counOrdered By: Bonnie Jeffrey on 09-26-2022 WBC corrected for nucl RBC Auto (Bld) [#/Vol] 9.4 10*3/uL 3.8-11.6 [facility] Lymphocytes Auto (Bld) [#/Vo l]Ordered By: Bonnie Jeffrey on 09-26-2022 Lymphocytes (Bld) [#/Vol] 1.7 10*3/uL 1.00-4.8 [facility] Lymphocytes/100 WBC Auto (Bl d)Ordered By: Bonnie Jeffrey on 09-26-2022 Lymphocytes/100 WBC (Bld) 18.1 % . [facility] MCH Auto (RBC) [Entitic mass ]Ordered By: Bonnie Jeffrey on 09-26-2022 MCH (RBC) [Entitic mass] 28.8 pg 24.7-34.3 [facility] MCHC Auto (RBC) [Mass/Vol]Or dered By: Bonnie Jeffrey on 09-26-2022 MCHC (RBC) [Mass/Vol] 33.0 g/dL 32.0-35.0 [facility] MCV Auto (RBC) [Entitic vol] Ordered By: Bonnie Jeffrey on 09-26-2022 MCV (RBC) [Entitic vol] 87.1 fL 80-100 [facility] Monocytes Auto (Bld) [#/Vol] Ordered By: Bonnie Jeffrey on 09-26-2022 Monocytes (Bld) [#/Vol] 0.5 10*3/uL 0.0-0.8 [facility] Monocytes/100 WBC Auto (Bld) Ordered By: Bonnie Jeffrey on 09-26-2022 Monocytes/100 WBC (Bld) 5.8 % . [facility] Neutrophils Auto (Bld) [#/Vo l]Ordered By: Bonnie Jeffrey on 09-26-2022 Neutrophils (Bld) [#/Vol] 7.0 10*3/uL 1.8-7.7 [facility] Neutrophils/100 WBC Auto (Bl d)Ordered By: Bonnie Jeffrey on 09-26-2022 Neutrophils/100 WBC (Bld) 74.0 % . [facility] No Panel InformationOrdered By: Bonnie Jeffrey on 09-26-2022 Estimated GFR () 39 mL/Min [facility] Comment on above: GFR estimated refere nce range: According to KDOQI guidelines, <60 ml/min/1.73m2 is sufficient to diagnose a patient with chronic kidney disease. Pharmacy Creatinine Clearance (Chem N/A [facility] Nucleated erythrocytes [Pres ence] in Blood by Automated countOrdered By: Bonnie Jeffrey on 09-26-2022 Nucleated RBC Auto Ql (Bld) 0.0 /100{WBC} 0-0.5 [facility] Platelet mean volume Auto (B ld) [Entitic vol]Ordered By: Bonnie Jeffrey on 09-26-2022 Platelet mean volume (Bld) [Entitic vol] 7.8 fL 6.3-10.7 [facility] Platelets Auto (Bld) [#/Vol] Ordered By: Bonnie Jeffrey on 09-26-2022 Platelets (Bld) [#/Vol] 335 10*3/uL 150-450 [facility] Protein [Mass/volume] in Ser um or PlasmaOrdered By: Bonnie Jeffrey on 09-26-2022 Protein [Mass/Vol] 6.8 g/dL 6.1-7.9 [facility] RBC Auto (Bld) [#/Vol]Ordere d By: Bonnie Jeffrey on 09-26-2022 RBC (Bld) [#/Vol] 4.62 10*6/uL 3.60-5.00 [facility] Serum or plasma alanine kamara otransferase measurement without P-5'-P (enzymatic activiOrdered By: Bonnie Jeffrey on 09-26-2022 ALT No additional P-5'-P [Catalytic activity/Vol] 19 U/L 10-60 [facility] Serum or plasma albumin/glob ulin mass ratioOrdered By: Bonnie Jeffrey on 09-26-2022 Albumin/Globulin [Mass ratio] 1.4 {ratio} [facility] Serum or plasma alkaline mona sphatase measurement (enzymatic activity/volume)Ordered By: Bonnie Jeffrey on 09-26-2022 ALP [Catalytic activity/Vol] 45 U/L 32-92 [facility] Serum or plasma anion gap de terminationOrdered By: Bonnie Jeffrey on 09-26-2022 Anion gap [Moles/Vol] 13.8 mmol/L 6.0-15.0 [facility] Serum or plasma aspartate am inotransferase measurement (enzymatic activity/volume)Ordered By: Bonnie Jeffrey on 09-26-2022 AST [Catalytic activity/Vol] 17 U/L 10-42 [facility] Serum or plasma calcium sagrario urement (mass/volume)Ordered By: Bonnie Jeffrey on 09-26-2022 Calcium [Mass/Vol] 8.9 mg/dL 8.2-10.2 [facility] Serum or plasma chloride julieta surement (moles/volume)Ordered By: Bonnie Jeffrey on 09-26-2022 Chloride [Moles/Vol] 100 mmol/L 95-114 [facility] Serum or plasma glucose sagrario urement (mass/volume)Ordered By: Bonnie Jeffrey on 09-26-2022 Glucose [Mass/Vol] 86 mg/dL 70-100 [facility] Comment on above: ADA recommended refe rence rangeRandom Glucose Reference Range is dependent on time and content of last meal. Glucose of more than 200 mg/dL in a nonstressed, ambulatory subject supports the diagnosis of Diabetes Mellitus. Serum or plasma potassium me asurement (moles/volume)Ordered By: Bonnie Jeffrey on 09-26-2022 Potassium [Moles/Vol] 3.5 mmol/L 3.5-5.1 [facility] Serum or plasma sodium measu rement (moles/volume)Ordered By: Bonnie Jeffrey on 09-26-2022 Sodium [Moles/Vol] 134 mmol/L 136-146 [facility] Serum or plasma total biliru bin measurement (mass/volume)Ordered By: Bonnie Jeffrey on 09-26-2022 Bilirubin [Mass/Vol] 0.5 mg/dL 0.3-1.2 [facility] Serum or plasma total carbon dioxide measurement (moles/volume)Ordered By: Bonnie Jeffrey on 09-26-2022 CO2 [Moles/Vol] 23.7 mmol/L 22.0-30.0 [facility] Serum or plasma urea nitroge n measurement (mass/volume)Ordered By: Bonnie Jeffrey on 09-26-2022 Urea nitrogen [Mass/Vol] 25 mg/dL 05-18 [facility] WBC Auto (Bld) [#/Vol]Ordere d By: Bonnie Jeffrey on 09-26-2022 WBC (Bld) [#/Vol] 9.4 10*3/uL 3.8-11.6 [facility] Operative Reporton 3 Operative Report [id number]:127 Normal [facility] Pathology Noteon 09-14-2022 Pathology Note [id number]#[id number]:127 Normal [facility] PREG HCG QUALon 09-12-2022 , QUAL Negative Normal NEGATIVE [facility] Comment on above: Performed By: #### P REG #### [facility] [address] [address] [address] Shemar Armas Lab Reportson 09-10-2022 Lab Reports [id number]:127 Normal [facility] Covid-19 PCR (CVDTBH)on 08-26 SARS-CoV-2 (COVID-19) RNA PADMINI+probe Ql (Unsp spec) Not detected Normal NOT DETECTED [facility] Comment on above: Result Comment: This test is not yet approved or cleared by the [place] FDA. When there are no FDA-approved or cleared tests available, and other criteria are met, FDA can make tests available under an emergency access mechanism called an Emergency Use Authorization (EUA). The EUA for this test is supported by the [employer] of Health and Human Service's (HHS's) declaration [...] consistent with SARS-CoV-2. Performed By: #### C [facility] #### [facility] [address] [place] [address] Dr. Shemar Armas ED Note-Physicianon 08-01-20 ED Note-Physician [id number]:127 Normal [facility] Consent for Procedure/Surger yon 07-31-2022 Consent for Procedure/Surgery [id number]:127 Normal [facility] Physician Referralon 022 Physician Referral [id number]:127 Normal [facility] US SINGLE QUAD RT UPPERon US SINGLE [...] THOM ANGELA Date: 2022-07-09 17:10 Normal [facility] US KIDNEYS BLADDERon 022 US KIDNEYS BLADDER [...] THOM ANGELA Date: 2022-07-04 14:26 Normal [facility] CBC AUTO DIFFon 07-02-2022 BASO # 0.1 103/ul Normal 0.0-0.1 [facility] Comment on above: Performed By: #### C BC #### [facility] [address] [place] [address] Dr. Shemar Armas Basophils/100 WBC (Bld) 0.6 % Normal 0.2-2.0 [facility] Comment on above: Performed By: #### C BC #### [facility] [address] [place] [address] Dr. Shemar Armas EO # 0.1 103/ul Normal 0.0-0.7 [facility] Comment on above: Performed By: #### C BC #### [facility] [address] [address] [address] Shemar Armas Eosinophils/100 WBC (Bld) 0.8 % Critically low 0.9-7.0 [facility] Comment on above: Performed By: #### C BC #### [facility] [address] [place] [address] Dr. Shemar Armas Erythrocyte distribution width (RBC) [Ratio] 14.6 % Normal 11.0-15.0 [facility] Comment on above: Performed By: #### C BC #### [facility] [address] [place] [address] Dr. Shemar Armas Hematocrit (Bld) [Volume fraction] 36.4 % Normal 36.0-48.0 [facility] Comment on above: Performed By: #### C BC #### [facility] [address] [place] [address] Dr. Shemar Armas Hemoglobin (Bld) [Mass/Vol] 12.2 g/dL Normal 12.0-16.0 [facility] Comment on above: Performed By: #### C BC #### [facility] [address] [place] [address] Dr. Shemar Armas IG # 0.04 10e3/ul Critically high 0.00-0.03 [facility] Comment on above: Performed By: #### C BC #### [facility] [address] [place] [address] Dr. Shemar Armas IG % 0.3 % Normal 0.0-0.5 [facility] Comment on above: Performed By: #### C BC #### [facility] [address] [place] [address] Dr. Shemar Armas LYMPH # 2.1 103/ul Normal 1.2-3.8 [facility] Comment on above: Performed By: #### C BC #### [facility] [address] [place] [address] Dr. Shemar Armas Lymphocytes/100 WBC (Bld) 18.7 % Critically low 20.5-60.0 [facility] Comment on above: Performed By: #### C BC #### [facility] [address] [place] [address] Dr. Shemar Armas MANUAL DIFF REQ NO Normal [facility] Comment on above: Performed By: #### C BC #### [facility] [address] [place] [address] Dr. Shemar Armas MCH (RBC) [Entitic mass] 29.6 pg Normal 26.7-34.0 [facility] Comment on above: Performed By: #### C BC #### [facility] [address] [address] [address] Shemar Armas MCHC (RBC) [Mass/Vol] 33.5 g/dL Normal 29.9-35.2 [facility] Comment on above: Performed By: #### C BC #### [facility] [address] [address] [address] Shemar Armas MCV (RBC) [Entitic vol] 88.3 fL Normal 81.0-99.0 [facility] Comment on above: Performed By: #### C BC #### [facility] [address] [place] [address] Dr. Shemar Armas MONO # 0.7 103/ul Normal 0.3-0.8 [facility] Comment on above: Performed By: #### C BC #### [facility] [address] [place] [address] Dr. Shemar Armas Monocytes/100 WBC (Bld) 6.2 % Normal 1.7-12.0 [facility] Comment on above: Performed By: #### C BC #### [facility] [address] [place] [address] Dr. Shemar Armas NEUT # 8.4 103/ul Critically high 1.4-6.5 [facility] Comment on above: Performed By: #### C BC #### [facility] [address] [place] [address] Dr. Shemar Armas Neutrophils/100 WBC (Bld) 73.4 % Normal 43.0-75.0 [facility] Comment on above: Performed By: #### C BC #### [facility] [address] [place] [address] Dr. Shemar Armas Platelet mean volume (Bld) [Entitic vol] 9.2 fL Critically low 9.5-13.5 [facility] Comment on above: Performed By: #### C BC #### [facility] [address] [place] [address] Dr. Shemar Armas PLT 331 103/ul Normal 150-450 [facility] Comment on above: Performed By: #### C BC #### [facility] [address] [address] [address] Shemar Armas RBC 4.12 106/ul Critically low 4.20-5.40 [facility] Comment on above: Performed By: #### C BC #### [facility] [address] [address] [address] Shemar Armas WBC 11.4 103/ul Critically high 4.0-11.0 [facility] Comment on above: Performed By: #### C BC #### [facility] [address] [address] [address] Shemar Armas PROF CHEM 8 (BAS METB)on Anion gap [Moles/Vol] 11.5 mmol/L Normal [facility] Comment on above: Performed By: #### B MP #### [facility] [address] [place] [address] Dr. Shemar Armas Calcium [Mass/Vol] 8.9 mg/dL Normal 8.5-10.1 [facility] Comment on above: Performed By: #### B MP #### [facility] [address] [place] [address] Dr. Shemar Armas Chloride [Moles/Vol] 102 mmol/L Normal 98-107 [facility] Comment on above: Performed By: #### B MP #### [facility] [address] [place] [address] Dr. Shemar Armas CO2 [Moles/Vol] 29.6 mmol/L Normal 21.0-32.0 [facility] Comment on above: Performed By: #### B MP #### [facility] [address] [place] [address] Dr. Shemar Armas Creatinine [Mass/Vol] 1.93 mg/dL Critically high 0.55-1.02 [facility] Comment on above: Performed By: #### B MP #### [facility] [address] [place] [address] Dr. Shemar Armas EGFR-AF LEBANESE 37 mL/min/1.73m2 Critically low >=60 [facility] Comment on above: Performed By: #### B MP #### [facility] [address] [address] [address] Shemar Armas EGFR-NON AF LEBANESE 30 mL/min/1.73m2 Critically low >=60 [facility] Comment on above: Performed By: #### B MP #### [facility] [address] [address] [address] Shemar Armas Glucose [Mass/Vol] 93 mg/dL Normal 74-106 [facility] Comment on above: Performed By: #### B MP #### [facility] [address] [address] [address] Shemar Armas Potassium [Moles/Vol] 4.1 mmol/L Normal 3.5-5.1 [facility] Comment on above: Performed By: #### B MP #### [facility] [address] [address] [address] Shemar Armas Sodium [Moles/Vol] 139 mmol/L Normal 136-145 [facility] Comment on above: Performed By: #### B MP #### [facility] [address] [address] [address] Shemar Armas Urea nitrogen [Mass/Vol] 22.0 mg/dL Critically high 7.0-18 .0 [facility] Comment on above: Performed By: #### B MP #### [facility] [address] [address] [address] Shemar Armas Urea nitrogen/Creatinine [Mass ratio] 11.4 mg/mg Normal [facility] Comment on above: Performed By: #### B MP #### [facility] [address] [address] [address] Shemar Armas BNPon 06-29-2022 Natriuretic peptide B (Bld) [Mass/Vol] 159.0 pg/mL Normal <=450.0 [facility] Comment on above: Performed By: #### B MP #### [facility] [address] [address] [address] Shemar Armas CBC AUTO DIFFon 06-29-2022 BASO # 0.1 103/ul Normal 0.0-0.1 [facility] Comment on above: Performed By: #### P REG #### [facility] [address] [address] [address] Shemar Armas Basophils/100 WBC (Bld) 0.7 % Normal 0.2-2.0 [facility] Comment on above: Performed By: #### P REG #### [facility] [address] [address] [address] Shemar Armas EO # 0.1 103/ul Normal 0.0-0.7 [facility] Comment on above: Performed By: #### P REG #### [facility] [address] [address] [address] Shemar Armas Eosinophils/100 WBC (Bld) 1.4 % Normal 0.9-7.0 [facility] Comment on above: Performed By: #### P REG #### [facility] [address] [address] [address] Shemar Armas Erythrocyte distribution width (RBC) [Ratio] 14.5 % Normal 11.0-15.0 [facility] Comment on above: Performed By: #### P REG #### [facility] [address] [address] [address] Shemar Armas Hematocrit (Bld) [Volume fraction] 35.4 % Critically low 36.0-48.0 [facility] Comment on above: Performed By: #### P REG #### [facility] [address] [address] [address] Shemar Armas Hemoglobin (Bld) [Mass/Vol] 11.9 g/dL Critically low 12.0-16.0 [facility] Comment on above: Performed By: #### P REG #### [facility] [address] [address] [address] Shemar Armas IG # 0.05 10e3/ul Critically high 0.00-0.03 [facility] Comment on above: Performed By: #### P REG #### [facility] [address] [address] [address] Shemar Armas IG % 0.5 % Normal 0.0-0.5 [facility] Comment on above: Performed By: #### P REG #### [facility] [address] [address] [address] Shemar Armas LYMPH # 1.7 103/ul Normal 1.2-3.8 [facility] Comment on above: Performed By: #### P REG #### [facility] [address] [address] [address] Shemar Armas Lymphocytes/100 WBC (Bld) 17.3 % Critically low 20.5-60.0 [facility] Comment on above: Performed By: #### P REG #### [facility] [address] [place] [address] Dr. Shemar Armas MANUAL DIFF REQ NO Normal [facility] Comment on above: Performed By: #### P REG #### [facility] [address] [place] [address] Dr. Shemar Armas MCH (RBC) [Entitic mass] 29.5 pg Normal 26.7-34.0 [facility] Comment on above: Performed By: #### P REG #### [facility] [address] [place] [address] Dr. Shemar Armas MCHC (RBC) [Mass/Vol] 33.6 g/dL Normal 29.9-35.2 [facility] Comment on above: Performed By: #### P REG #### [facility] [address] [place] [address] Dr. Shemar Armas MCV (RBC) [Entitic vol] 87.8 fL Normal 81.0-99.0 [facility] Comment on above: Performed By: #### P REG #### [facility] [address] [place] [address] Dr. Shemar Armas MONO # 0.6 103/ul Normal 0.3-0.8 [facility] Comment on above: Performed By: #### P REG #### [facility] [address] [place] [address] Dr. Shemar Armas Monocytes/100 WBC (Bld) 6.3 % Normal 1.7-12.0 [facility] Comment on above: Performed By: #### P REG #### [facility] [address] [address] [address] Shemar Armas NEUT # 7.1 103/ul Critically high 1.4-6.5 [facility] Comment on above: Performed By: #### P REG #### [facility] [address] [address] [address] Shemar Armas Neutrophils/100 WBC (Bld) 73.8 % Normal 43.0-75.0 [facility] Comment on above: Performed By: #### P REG #### [facility] [address] [address] [address] Shemar Armas Platelet mean volume (Bld) [Entitic vol] 9.4 fL Critically low 9.5-13.5 [facility] Comment on above: Performed By: #### P REG #### [facility] [address] [address] [address] Shemar Armas PLT 350 103/ul Normal 150-450 [facility] Comment on above: Performed By: #### P REG #### [facility] [address] [address] [address] Shemar Armas RBC 4.03 106/ul Critically low 4.20-5.40 [facility] Comment on above: Performed By: #### P REG #### [facility] [address] [address] [address] Shemar Armas WBC 9.6 103/ul Normal 4.0-11.0 [facility] Comment on above: Performed By: #### P REG #### [facility] [address] [address] [address] Shemar Armas BASO # 0.0 103/ul Normal 0.0-0.1 [facility] Comment on above: Performed By: #### C BC #### [facility] [address] [address] [address] Shemar Armas Basophils/100 WBC (Bld) 0.6 % Normal 0.2-2.0 [facility] Comment on above: Performed By: #### C BC #### [facility] [address] [address] [address] Shemar Armas EO # 0.1 103/ul Normal 0.0-0.7 [facility] Comment on above: Performed By: #### C BC #### [facility] [address] [place] [address] Dr. Shemar Armas Eosinophils/100 WBC (Bld) 1.2 % Normal 0.9-7.0 [facility] Comment on above: Performed By: #### C BC #### [facility] [address] [place] [address] Dr. Shemar Armas Erythrocyte distribution width (RBC) [Ratio] 14.4 % Normal 11.0-15.0 [facility] Comment on above: Performed By: #### C BC #### [facility] [address] [place] [address] Dr. Shemar Armas Hematocrit (Bld) [Volume fraction] 29.3 % Critically low 36.0-48.0 [facility] Comment on above: Performed By: #### C BC #### [facility] [address] [place] [address] Dr. Shemar Armas Hemoglobin (Bld) [Mass/Vol] 9.9 g/dL Critically low 12.0-16.0 [facility] Comment on above: Performed By: #### C BC #### [facility] [address] [place] [address] Dr. Shemar Armas IG # 0.04 10e3/ul Critically high 0.00-0.03 [facility] Comment on above: Performed By: #### C BC #### [facility] [address] [place] [address] Dr. Shemar Armas IG % 0.6 % Critically high 0.0-0.5 [facility] Comment on above: Performed By: #### C BC #### [facility] [address] [place] [address] Dr. Shemar Armas LYMPH # 1.5 103/ul Normal 1.2-3.8 [facility] Comment on above: Performed By: #### C BC #### [facility] [address] [place] [address] Dr. Shemar Armas Lymphocytes/100 WBC (Bld) 20.1 % Critically low 20.5-60.0 [facility] Comment on above: Performed By: #### C BC #### [facility] [address] [place] [address] Dr. Shemar Armas MANUAL DIFF REQ NO Normal [facility] Comment on above: Performed By: #### C BC #### [facility] [address] [place] [address] Dr. Shemar Armas MCH (RBC) [Entitic mass] 29.9 pg Normal 26.7-34.0 [facility] Comment on above: Performed By: #### C BC #### [facility] [address] [place] [address] Dr. Shemar Armas MCHC (RBC) [Mass/Vol] 33.8 g/dL Normal 29.9-35.2 [facility] Comment on above: Performed By: #### C BC #### [facility] [address] [place] [address] Dr. Shemar Armas MCV (RBC) [Entitic vol] 88.5 fL Normal 81.0-99.0 [facility] Comment on above: Performed By: #### C BC #### [facility] [address] [place] [address] Dr. Shemar Armas MONO # 0.5 103/ul Normal 0.3-0.8 [facility] Comment on above: Performed By: #### C BC #### [facility] [address] [place] [address] Dr. Shemar Armas Monocytes/100 WBC (Bld) 7.5 % Normal 1.7-12.0 [facility] Comment on above: Performed By: #### C BC #### [facility] [address] [place] [address] Dr. Shemar Armas NEUT # 5.1 103/ul Normal 1.4-6.5 [facility] Comment on above: Performed By: #### C BC #### [facility] [address] [place] [address] Dr. Shemar Armas Neutrophils/100 WBC (Bld) 70.0 % Normal 43.0-75.0 [facility] Comment on above: Performed By: #### C BC #### [facility] [address] [address] [address] Shemar Armas Platelet mean volume (Bld) [Entitic vol] 9.2 fL Critically low 9.5-13.5 [facility] Comment on above: Performed By: #### C BC #### [facility] [address] [address] [address] Shemar Armas PLT 225 103/ul Normal 150-450 [facility] Comment on above: Performed By: #### C BC #### [facility] [address] [address] [address] Shemar Armas RBC 3.31 106/ul Critically low 4.20-5.40 [facility] Comment on above: Performed By: #### C BC #### [facility] [address] [address] [address] Shemar Armas WBC 7.2 103/ul Normal 4.0-11.0 [facility] Comment on above: Performed By: #### C BC #### [facility] [address] [address] [address] Shemar Armas IRONon 06-29-2022 Iron [Mass/Vol] 110.0 ug/dL Normal 50.0-170.0 [facility] Comment on above: Performed By: #### P REG #### [facility] [address] [place] [address] Dr. Shemar Armas PROF 14(COMP METB)on 022 Albumin [Mass/Vol] 4.0 g/dL Normal 3.4-5.0 [facility] Comment on above: Performed By: #### P REG #### [facility] [address] [place] [address] Dr. Shemar Armas Albumin/Globulin [Mass ratio] 1.1 {ratio} Normal [facility] Comment on above: Performed By: #### P REG #### [facility] [address] [place] [address] Dr. Shemar Armas ALP [Catalytic activity/Vol] 57 U/L Normal 46-116 [facility] Comment on above: Performed By: #### P REG #### [facility] [address] [place] [address] Dr. Shemar Armas ALT [Catalytic activity/Vol] 26 U/L Normal 14-59 [facility] Comment on above: Performed By: #### P REG #### [facility] [address] [place] [address] Dr. Shemar Armas Anion gap [Moles/Vol] 10.0 mmol/L Normal Th [facility] Comment on above: Performed By: #### P REG #### [facility] [address] [place] [address] Dr. Shemar Armas AST [Catalytic activity/Vol] 15 U/L Normal 15-37 [facility] Comment on above: Performed By: #### P REG #### [facility] [address] [place] [address] Dr. Shemar Armas Bilirubin [Mass/Vol] 0.2 mg/dL Normal 0.2-1.0 [facility] Comment on above: Performed By: #### P REG #### [facility] [address] [place] [address] Dr. Shemar Armas Calcium [Mass/Vol] 8.8 mg/dL Normal 8.5-10.1 [facility] Comment on above: Performed By: #### P REG #### [facility] [address] [place] [address] Dr. Shemar Armas Chloride [Moles/Vol] 105 mmol/L Normal 98-107 [facility] Comment on above: Performed By: #### P REG #### [facility] [address] [place] [address] Dr. Shemar Armas CO2 [Moles/Vol] 26.8 mmol/L Normal 21.0-32.0 [facility] Comment on above: Performed By: #### P REG #### [facility] [address] [place] [address] Dr. Shemar Armas Creatinine [Mass/Vol] 1.60 mg/dL Critically high 0.55-1.02 [facility] Comment on above: Performed By: #### P REG #### [facility] [address] [address] [address] Shemar Armas EGFR-AF LEBANESE 46 mL/min/1.73m2 Critically low >=60 [facility] Comment on above: Performed By: #### P REG #### [facility] [address] [address] [address] Shemar Armas EGFR-NON AF LEBANESE 38 mL/min/1.73m2 Critically low >=60 [facility] Comment on above: Performed By: #### P REG #### [facility] [address] [address] [address] Shemar Armas Globulin (S) [Mass/Vol] 3.5 g/dL Normal [facility] Comment on above: Performed By: #### P REG #### [facility] [address] [address] [address] Shemar Armas Glucose [Mass/Vol] 98 mg/dL Normal 74-106 [facility] Comment on above: Performed By: #### P REG #### [facility] [address] [address] [address] Shemar Armas Potassium [Moles/Vol] 3.8 mmol/L Normal 3.5-5.1 [facility] Comment on above: Performed By: #### P REG #### [facility] [address] [address] [address] Shemar Armas Protein [Mass/Vol] 7.5 g/dL Normal 6.4-8.2 [facility] Comment on above: Performed By: #### P REG #### [facility] [address] [address] [address] Shemar Armas Sodium [Moles/Vol] 138 mmol/L Normal 136-145 [facility] Comment on above: Performed By: #### P REG #### [facility] [address] [address] [address] Shemar Armas Urea nitrogen [Mass/Vol] 24.0 mg/dL Critically high 7.0-18 .0 [facility] Comment on above: Performed By: #### P REG #### [facility] [address] [place] [address] Dr. Shemar Armas Urea nitrogen/Creatinine [Mass ratio] 15.0 mg/mg Normal [facility] Comment on above: Performed By: #### P REG #### [facility] [address] [place] [address] Dr. Shemar Armas Albumin [Mass/Vol] 3.3 g/dL Critically low 3.4-5.0 Th e [facility] Comment on above: Performed By: #### B MP #### [facility] [address] [place] [address] Dr. Shemar Armas Albumin/Globulin [Mass ratio] 1.1 {ratio} Normal [facility] Comment on above: Performed By: #### B MP #### [facility] [address] [place] [address] Dr. Shemar Armas ALP [Catalytic activity/Vol] 55 U/L Normal 46-116 [facility] Comment on above: Performed By: #### B MP #### [facility] [address] [place] [address] Dr. Shemar Armas ALT [Catalytic activity/Vol] 21 U/L Normal 14-59 [facility] Comment on above: Performed By: #### B MP #### [facility] [address] [place] [address] Dr. Shemar Armas Anion gap [Moles/Vol] 8.1 mmol/L Normal [facility] Comment on above: Performed By: #### B MP #### [facility] [address] [place] [address] Dr. Shemar Armas AST [Catalytic activity/Vol] 13 U/L Critically low 15-37 [facility] Comment on above: Performed By: #### B MP #### [facility] [address] [place] [address] Dr. Shemar Armas Bilirubin [Mass/Vol] 0.1 mg/dL Critically low 0.2-1.0 [facility] Comment on above: Performed By: #### B MP #### [facility] [address] [address] [address] Shemar Armas Calcium [Mass/Vol] 7.5 mg/dL Critically low 8.5-10.1 [facility] Comment on above: Performed By: #### B MP #### [facility] [address] [address] [address] Shemar Armas Chloride [Moles/Vol] 107 mmol/L Normal 98-107 [facility] Comment on above: Performed By: #### B MP #### [facility] [address] [address] [address] Shemar Armas CO2 [Moles/Vol] 24.5 mmol/L Normal 21.0-32.0 [facility] Comment on above: Performed By: #### B MP #### [facility] [address] [address] [address] Shemar Armas Creatinine [Mass/Vol] 2.03 mg/dL Critically high 0.55-1.02 [facility] Comment on above: Performed By: #### B MP #### [facility] [address] [address] [address] Shemar Armas EGFR-AF LEBANESE 35 mL/min/1.73m2 Critically low >=60 [facility] Comment on above: Performed By: #### B MP #### [facility] [address] [address] [address] Shemar Armas EGFR-NON AF LEBANESE 29 mL/min/1.73m2 Critically low >=60 [facility] Comment on above: Performed By: #### B MP #### [facility] [address] [address] [address] Shemar Armas Globulin (S) [Mass/Vol] 2.9 g/dL Normal [facility] Comment on above: Performed By: #### B MP #### [facility] [address] [address] [address] Shemar Armas Glucose [Mass/Vol] 111 mg/dL Critically high 74-106 [facility] Comment on above: Performed By: #### B MP #### [facility] [address] [address] [address] Shemar Armas Potassium [Moles/Vol] 3.6 mmol/L Normal 3.5-5.1 [facility] Comment on above: Performed By: #### B MP #### [facility] [address] [address] [address] Shemar Armas Protein [Mass/Vol] 6.2 g/dL Critically low 6.4-8.2 [facility] Comment on above: Performed By: #### B MP #### [facility] [address] [address] [address] Shemar Armas Sodium [Moles/Vol] 136 mmol/L Normal 136-145 [facility] Comment on above: Performed By: #### B MP #### [facility] [address] [address] [address] Shemar Armas Urea nitrogen [Mass/Vol] 28.0 mg/dL Critically high 7.0-18 .0 [facility] Comment on above: Performed By: #### B MP #### [facility] [address] [address] [address] Shemar Armas Urea nitrogen/Creatinine [Mass ratio] 13.8 mg/mg Normal [facility] Comment on above: Performed By: #### B MP #### [facility] [address] [address] [address] Shemar Armas TROPONIN, HIGH SENSITIVITYon 06-29-2022 HSTROP 4.8 pg/mL Normal 4.0-51.3 [facility] Comment on above: Result Comment: CUT- OFF POINTS HAVE BEEN ESTABLISHED BASED ON THE FOURTH UNIVERSAL DEFINITIONS OF MYOCARDIAL INFARCTION. THE UPPER REFERENCE LIMIT (URL) OF TROPONIN, DEFINED THE 99TH PERCENTILE OF cTnI DISTRIBUTION IN A REFERENCE POPULATION, HAS BEEN CONFIRMED THE DECISION THRESHOLD FOR [place] DIAGNOSIS. Performed By: #### B MP #### [facility] [address] [address] [address] Shemar Armas INSULINon 04-27-2022 Insulin 15.8 uIU/mL Normal 2.6-24.9 [facility] Comment on above: Performed By: #### I NSULIN #### [facility] [address] [place] [address] Dr. Shemar Armas T4, T3U, FTI LABCORPon 04-27 Free Thyroxine Index 3.1 Normal 1.2-4.9 [facility] Comment on above: Performed By: #### T HYLC #### [facility] [address] [place] [address] Dr. Shemar Armas T3 Uptake 31 % Normal 24-39 [facility] Comment on above: Performed By: #### T HYLC #### [facility] [address] [place] [address] Dr. Shemar Armas T4 [Mass/Vol] 10.1 ug/dL Normal 4.5-12.0 [facility] Comment on above: Performed By: #### T HYLC #### [facility] [address] [place] [address] Dr. Shemar Armas CBC AUTO DIFFon 04-26-2022 BASO # 0.1 103/ul Normal 0.0-0.1 [facility] Comment on above: Performed By: #### B MP #### [facility] [address] [place] [address] Dr. Shemar Armas Basophils/100 WBC (Bld) 0.7 % Normal 0.2-2.0 [facility] Comment on above: Performed By: #### B MP #### [facility] [address] [place] [address] Dr. Shemar Armas EO # 0.1 103/ul Normal 0.0-0.7 [facility] Comment on above: Performed By: #### B MP #### [facility] [address] [place] [address] Dr. Shemar Armas Eosinophils/100 WBC (Bld) 0.9 % Normal 0.9-7.0 [facility] Comment on above: Performed By: #### B MP #### [facility] [address] [place] [address] Dr. Shemar Armas Erythrocyte distribution width (RBC) [Ratio] 13.7 % Normal 11.0-15.0 [facility] Comment on above: Performed By: #### B MP #### [facility] [address] [place] [address] Dr. Shemar Armas Hematocrit (Bld) [Volume fraction] 41.8 % Normal 36.0-48.0 [facility] Comment on above: Performed By: #### B MP #### [facility] [address] [place] [address] Dr. Shemar Armas Hemoglobin (Bld) [Mass/Vol] 13.9 g/dL Normal 12.0-16.0 [facility] Comment on above: Performed By: #### B MP #### [facility] [address] [place] [address] Dr. Shemar Armas IG # 0.03 10e3/ul Normal 0.00-0.03 [facility] Comment on above: Performed By: #### B MP #### [facility] [address] [place] [address] Dr. Shemar Armas IG % 0.3 % Normal 0.0-0.5 [facility] Comment on above: Performed By: #### B MP #### [facility] [address] [place] [address] Dr. Shemar Armas LYMPH # 1.8 103/ul Normal 1.2-3.8 [facility] Comment on above: Performed By: #### B MP #### [facility] [address] [place] [address] Dr. Shemar Armas Lymphocytes/100 WBC (Bld) 21.0 % Normal 20.5-60.0 [facility] Comment on above: Performed By: #### B MP #### [facility] [address] [place] [address] Dr. Shemar Armas MANUAL DIFF REQ NO Normal [facility] Comment on above: Performed By: #### B MP #### [facility] [address] [place] [address] Dr. Shemar Armas MCH (RBC) [Entitic mass] 28.8 pg Normal 26.7-34.0 [facility] Comment on above: Performed By: #### B MP #### [facility] [address] [address] [address] Shemar Armas MCHC (RBC) [Mass/Vol] 33.3 g/dL Normal 29.9-35.2 [facility] Comment on above: Performed By: #### B MP #### [facility] [address] [address] [address] Shemar Armas MCV (RBC) [Entitic vol] 86.7 fL Normal 81.0-99.0 [facility] Comment on above: Performed By: #### B MP #### [facility] [address] [place] [address] Dr. Shemar Armas MONO # 0.7 103/ul Normal 0.3-0.8 [facility] Comment on above: Performed By: #### B MP #### [facility] [address] [place] [address] Dr. Shemar Armas Monocytes/100 WBC (Bld) 7.9 % Normal 1.7-12.0 [facility] Comment on above: Performed By: #### B MP #### [facility] [address] [place] [address] Dr. Shemar Armas NEUT # 6.0 103/ul Normal 1.4-6.5 [facility] Comment on above: Performed By: #### B MP #### [facility] [address] [place] [address] Dr. Shemar Armas Neutrophils/100 WBC (Bld) 69.2 % Normal 43.0-75.0 [facility] Comment on above: Performed By: #### B MP #### [facility] [address] [place] [address] Dr. Shemar Armas Platelet mean volume (Bld) [Entitic vol] 9.7 fL Normal 9.5-13.5 [facility] Comment on above: Performed By: #### B MP #### [facility] [address] [place] [address] Dr. Shemar Armas PLT 322 103/ul Normal 150-450 [facility] Comment on above: Performed By: #### B MP #### [facility] [address] [address] [address] Shemar Armas RBC 4.82 106/ul Normal 4.20-5.40 [facility] Comment on above: Performed By: #### B MP #### [facility] [address] [address] [address] Shemar Armas WBC 8.7 103/ul Normal 4.0-11.0 [facility] Comment on above: Performed By: #### B MP #### [facility] [address] [address] [address] Shemar Armas GLYCOHEMOGLOBIN A1Con 2021 ADA RECOMMENDATION SEE BELOW Normal [facility] Comment on above: Result Comment: ADA RECOMMENDED LIMIT 4.0 - 6.0 ADA THERAPEUTIC TARGET < 7.0 ACTION SUGGESTED > 7.0 Performed By: #### P REG #### [facility] [address] [place] [address] Dr. Shemar Armas Glucose [Mass/Vol] 108 mg/dL Normal [facility] Comment on above: Performed By: #### P REG #### [facility] [address] [place] [address] Dr. Shemar Armas HbA1c (Bld) [Mass fraction] 5.4 % Normal 4.5-6.2 [facility] Comment on above: Performed By: #### P REG #### [facility] [address] [place] [address] Dr. Shemar Armas IRONon 04-26-2022 Iron [Mass/Vol] 55.0 ug/dL Normal 50.0-170.0 [facility] Comment on above: Performed By: #### I CYNDI #### [facility] [address] [address] [address] Shemar Armas LIPID PROFILEon 04-26-2022 CHOL-HDL RATIO NORM SEE BELOW Normal [facility] Comment on above: Result Comment: 3.3 - 4.4 LOW RISK 4.4 - 7.1 AVERAGE RISK 7.1 - 11.0 MODERATE RISK >11.0 HIGH RISK Performed By: #### P REG #### [facility] [address] [address] [address] Shemar Armas Cholesterol [Mass/Vol] 205 mg/dL Critically high <=200 [facility] [facility] Comment on above: Performed By: #### P REG #### [facility] [address] [address] [address] Shemar Armas Cholesterol in HDL [Mass/Vol] 57 mg/dL Normal 40-60 [facility] Comment on above: Performed By: #### P REG #### [facility] [address] [address] [address] Shmear Armas Cholesterol in LDL [Mass/Vol] 126.8 mg/dL Normal [facility] Comment on above: Performed By: #### P REG #### [facility] [address] [address] [address] Shemar Armas Cholesterol.total/Choles terol in HDL [Mass ratio] 3.6 {ratio} Normal [facility] Comment on above: Performed By: #### P REG #### [facility] [address] [address] [address] Shemar Arams HDL NORMAL > or = 60 mg/dl - LOW CARDIOVASCULAR RISK <40 mg/dl - HIGH CARDIOVASCULAR RISK Normal [facility] Comment on above: Performed By: #### P REG #### [facility] [address] [address] [address] Shemar Armas LDL CALC NORMAL SEE BELOW Normal [facility] Comment on above: Result Comment: <100 mg/dl OPTIMAL 100 - 129 mg/dl NEAR OR ABOVE OPTIMAL 130 - 159 mg/dl BORDERLINE HIGH 160 - 189 mg/dl HIGH >190 mg/dl VERY HIGH Performed By: #### P REG #### [facility] [address] [address] [address] Shemar Armas Triglyceride [Mass/Vol] 106 mg/dL Normal <=150 [facility] Comment on above: Performed By: #### P REG #### [facility] [address] [address] [address] Shemar Armas VLDL CALC 21.2 mg/dL Normal [facility] Comment on above: Performed By: #### P REG #### [facility] [address] [address] [address] Shemar Armas PROF 14(COMP METB)on 022 Albumin [Mass/Vol] 4.3 g/dL Normal 3.4-5.0 [facility] Comment on above: Performed By: #### T SH, CMP, LIPID #### [facility] [address] [address] [address] Shemar Armas Albumin/Globulin [Mass ratio] 1.2 {ratio} Normal [facility] Comment on above: Performed By: #### T SH, CMP, LIPID #### [facility] [address] [address] [address] Shemar Armas ALP [Catalytic activity/Vol] 62 U/L Normal 46-116 [facility] Comment on above: Performed By: #### T SH, CMP, LIPID #### [facility] [address] [address] [address] Shemar Armas ALT [Catalytic activity/Vol] 34 U/L Normal 14-59 [facility] Comment on above: Performed By: #### T SH, CMP, LIPID #### [facility] [address] [address] [address] Shemar Armas Anion gap [Moles/Vol] 13.7 mmol/L Normal [facility] Comment on above: Performed By: #### T SH, CMP, LIPID #### [facility] [address] [address] [address] Shemar Armas AST [Catalytic activity/Vol] 22 U/L Normal 15-37 [facility] Comment on above: Performed By: #### T SH, CMP, LIPID #### [facility] [address] [address] [address] Shemar Armas Bilirubin [Mass/Vol] 0.3 mg/dL Normal 0.2-1.0 [facility] Comment on above: Performed By: #### T SH, CMP, LIPID #### [facility] [address] [address] [address] Shemar Armas Calcium [Mass/Vol] 9.1 mg/dL Normal 8.5-10.1 [facility] Comment on above: Performed By: #### T SH, CMP, LIPID #### [facility] [address] [address] [address] Shemar Armas Chloride [Moles/Vol] 98 mmol/L Normal 98-107 [facility] Comment on above: Performed By: #### T SH, CMP, LIPID #### [facility] [address] [address] [address] Shemar Armas CO2 [Moles/Vol] 29.9 mmol/L Normal 21.0-32.0 [facility] Comment on above: Performed By: #### T SH, CMP, LIPID #### [facility] [address] [place] [address] Dr. Shemar Armas Creatinine [Mass/Vol] 1.27 mg/dL Critically high 0.55-1.02 [facility] Comment on above: Performed By: #### T SH, CMP, LIPID #### [facility] [address] [place] [address] Dr. Shemar Armas EGFR-AF LEBANESE 59 mL/min/1.73m2 Critically low >=60 [facility] Comment on above: Performed By: #### T SH, CMP, LIPID #### [facility] [address] [place] [address] Dr. Shemar Armas EGFR-NON AF LEBANESE 49 mL/min/1.73m2 Critically low >=60 [facility] Comment on above: Performed By: #### T SH, CMP, LIPID #### [facility] [address] [place] [address] Dr. Shemar Armas Globulin (S) [Mass/Vol] 3.6 g/dL Normal [facility] Comment on above: Performed By: #### T SH, CMP, LIPID #### [facility] [address] [place] [address] Dr. Shemar Armas Glucose [Mass/Vol] 92 mg/dL Normal 74-106 [facility] Comment on above: Performed By: #### T SH, CMP, LIPID #### [facility] [address] [place] [address] Dr. Shemar Armas Potassium [Moles/Vol] 3.6 mmol/L Normal 3.5-5.1 [facility] Comment on above: Performed By: #### T SH, CMP, LIPID #### [facility] [address] [place] [address] Dr. Shemar Armas Protein [Mass/Vol] 7.9 g/dL Normal 6.4-8.2 [facility] Comment on above: Performed By: #### T SH, CMP, LIPID #### [facility] [address] [place] [address] Dr. Shemar Armas Sodium [Moles/Vol] 138 mmol/L Normal 136-145 [facility] Comment on above: Performed By: #### T DERRELL CMP, LIPID #### [facility] [address] [place] [address] Dr. Shemar Armas Urea nitrogen [Mass/Vol] 16.0 mg/dL Normal 7.0-18.0 [facility] Comment on above: Performed By: #### T DERRELL CMP, LIPID #### [facility] [address] [place] [address] Dr. Shemar Armas Urea nitrogen/Creatinine [Mass ratio] 12.6 mg/mg Normal [facility] Comment on above: Performed By: #### T DERRELL CMP, LIPID #### [facility] [address] [place] [address] Dr. Shemar Armas TSHon 04-26-2022 TSH 3.031 uIU/mL Normal 0.358-3.740 [facility] Comment on above: Performed By: #### P REG #### [facility] [address] [place] [address] Dr. Shemar Armas Vital Signs Date Time Vital Sign Value Performing Clinician Facility 09-01-2024 09:39-0500 Body height 160 cm Edis Morales DO Work Phone: [facility] 09-01-2024 09:39-0500 Body mass index (BMI) [Ratio] 48.36 kg/m2 Edis Morales DO Work Phone: [facility] 09-01-2024 09:39-0500 Body weight 123.83 kg Edis Morales DO Work Phone: [facility] 10-02-2022 16:00-0500 Body height 160.02 cm Bonnie Jeffrey Other [place] [facility] Other 10-02-2022 16:00-0500 Body mass index (BMI) [Ratio] 42.69 kg/m2 Bonnei Jeffrey Other [place] [facility] Other 10-02-2022 16:00-0500 Body weight 109.32 kg Bonnie Jeffrey Other [facility] Other 09-28-2022 15:55-0500 Diastolic blood pressure 60 mm[Hg] MD Donnell Brooke Work Phone: [facility] 09-28-2022 15:55-0500 Heart rate 76 /min MD Donnell Brooke Work Phone: [facility] 09-28-2022 15:55-0500 Respiratory rate 16 /min MD Donnell Brooke Work Phone: [facility] 09-28-2022 15:55-0500 SaO2% (BldA) [Mass fraction] 98 % MD Donnell Brooke Work Phone: [facility] 09-28-2022 15:55-0500 Systolic blood pressure 123 mm[Hg] MD Donnell Brooke Work Phone: [facility] 09-28-2022 14:33-0500 Body height 162.56 cm MD Donnell Brooke Work Phone: [facility] 09-28-2022 14:33-0500 Body mass index (BMI) [Ratio] 41.6 kg/m2 MD Donnell Brooke Work Phone: [facility] 09-28-2022 14:33-0500 Body weight 110 kg MD Donnell Brooke Work Phone: [facility] 09-28-2022 12:25-0500 Body temperature 98 [degF] MD Donnell Brooke Work Phone: [facility] 07-30-2022 15:29-0500 Blood Pressure Location Sanjay ZUÑIGA [facility] 07-30-2022 15:29-0500 Diastolic blood pressure 83 mm[Hg] Sanjay MENENDEZL [facility] 07-30-2022 15:29-0500 Heart rate 75 /min Sanjay MENENDEZL [facility] 07-30-2022 15:29-0500 Respiratory rate 16 /min Sanjay MENENDEZL [facility] 07-30-2022 15:29-0500 Systolic blood pressure 124 mm[Hg] Sanjay ZUÑIGA [facility] Encounters Encounter Date Encounter Type Care Provider Facility Start: 09-07-2024 End: 09-07-2024 External Result Encounter Edis Vo Jeffmeghan DO Work Phone: [facility] Unsolicited Start: 09-07-2024 End: 09-07-2024 External Result Encounter Edis Morales DO Work Phone: [facility] Unsolicited Start: 09-07-2024 End: 09-07-2024 Patient encounter procedure Donnell Brooke MD Work Phone: [facility] Work Phone: Start: 09-07-2024 End: 09-07-2024 ambulatory Donnell Brooke MD Work Phone: [facility] Work Phone: Start: 09-01-2024 End: 09-01-2024 Bamboo flowsheet Edis Vo Andrew DO Work Phone: [facility] Start: 09-01-2024 End: 09-01-2024 Bamboo flowsheet Edis Morales DO Work Phone: [facility] [place] Start: 09-01-2024 End: 09-01-2024 Office outpatient new 60 minutes Edis Morales DO Work Phone: [facility] Comment on above: Thyroid nodule (CMS/ HCC) Start: 09-01-2024 End: 09-01-2024 ambulatory EDIS MORALES Not Available Start: 08-03-2024 End: 08-03-2024 ambulatory Donnell Brooke Facility:[facility] Start: 08-03-2024 End: 08-03-2024 Departed Referred Donnell Brooke MD Work Phone: [facility] Start: 06-12-2023 End: 06-12-2023 ambulatory Bonnie Calvey Other [employer] [facility] Other Start: 06-12-2023 Office outpatient vi sit 15 minutes Bonnie Calvey [facility] Start: 03-20-2023 End: 03-20-2023 ambulatory Bonnie Calvey Other [employer] [facility] Other Start: 03-20-2023 Office outpatient vi sit 15 minutes Bonnie Calvey [facility] Start: 01-24-2023 End: 01-24-2023 ambulatory Bonnie Calvey Other [employer] [facility] Other Start: 01-24-2023 Office outpatient vi sit 15 minutes Bonnie Calvey [facility] Start: 11-13-2022 End: 11-13-2022 Patient encounter procedure MD Donnell Brooke Work Phone: [facility] Start: 11-13-2022 End: 11-13-2022 ambulatory MD Donnell Brooke Work Phone: [facility] Work Phone: Start: 11-13-2022 Postop follow up vis it related to original px Bonnie Calvey [facility] Start: 10-23-2022 End: 10-23-2022 ambulatory Bonnie Calvey Other [employer] [facility] Other Start: 10-23-2022 Postop follow up vis it related to original px Bonnie Calvey [facility] Start: 10-10-2022 End: 10-11-[address] DONNELL BROOKE . Facility: Start: 10-09-2022 End: 10-09-2022 ambulatory Bonnie Calvey Other [facility] [facility] Other Start: 10-09-2022 Postop follow up vis it related to original px Bonnie Calvey [facility] Start: 10-02-2022 End: 10-02-2022 ambulatory Bonnie Calvey Other [employer] [facility] Other Start: 10-02-2022 Postop follow up vis it related to original px Bonnie Calvey [facility] Start: 10-02-2022 Telephone encounter Bonnie Calvey [facility] Start: 09-28-2022 End: 09-28-2022 Admission to same day surgery center MD Donnell Brooke Work Phone: [facility] [place] Start: 09-26-2022 End: 09-26-2022 ambulatory MD Donnell Brooke Work Phone: [facility] Work Phone: Start: 09-26-2022 End: 09-26-2022 Patient encounter procedure MD Donnell Brooke Work Phone: [facility] Work Phone: Start: 09-25-2022 End: 09-25-[address] DONNELL BROOEK . Facility: Start: 09-21-2022 ambulatory Sanjay ZUÑIGA Facility :[facility] Start: 09-14-2022 Encounter for preprocedural laboratory examination DR SANJAY ZUÑIGA . [facility] Start: 09-12-2022 End: 09-13-2022 ambulatory Sanjay ZUÑIGA Facility:[id number] Start: 09-11-2022 End: 10-06-[address] DONNELL BROOKE . Facility:[facility] Start: 09-07-2022 End: 09-08-[address] DONNELL BROOKE . Facility:[facility] Start: 09-07-2022 End: 09-08-2022 Encounter for preprocedural laboratory examination DR DONNELL BROOKE . Facility:[facility] Start: 07-30-2022 End: 07-31-2022 ambulatory Donnell Brooke PROVIDER Facility:[facility] Start: 07-30-2022 End: 07-30-2022 Patient encounter procedure Sanjay ZUÑIGA [facility] [place] Start: 07-10-2022 ambulatory Donnell Brooke PROVIDER [facility] [...] abnormal findings DR DONNELL BROOKE . [facility] Start: 04-26-2022 End: 04-27-[address] DONNELL BROOKE . Facility:[facility] Start: 04-26-2022 End: 04-27-2022 Encounter for general adult medical examination without abnormal findings DR DONNELL BROOKE . Facility:[facility] Start: 02-15-2022 End: 03-21-[address] DONNELL BROOKE . Facility:[facility] Procedures Date Procedure Procedure Detail Performing Clinician Start: 09-07-2024 Assay of parathormone B enjamin W Murcek DO Work Phone: Start: 11-13-2022 Plain X-ray of right hand MD Donnell Brooke Work Phone: Start: 09-28-2022 Incision and drainag e of lower extremity MD Donnell Brooke Work Phone: Start: 08-12-2014 tarsal tunnel releas e, right. percutaneous plantar fasciotomy via the Tenex device, ultrasound device Sanjay MENENDEZL Extraction of wisdom tooth M chantal NILL PILONIDAL CYST EXCISION Messi ael NILL TARSAL TUNNEL RELEASE 1 Messi ael NILL Comment on above: LEFT Tonsillectomy Sanjay MENENDEZL Plan of Treatment Date Care Activity Detail Author Start: 09-21-2024 End: 09-21-2024 Patient encounter procedure 09/21/2024 1:45 PM EST Office Visit [facility] [place] [address] [place] [id number] Edis Morales, [address] [place] [address] [facility] Start: 09-01-2024 End: 09-01-2025 Calcium [Mass/volume] in Serum or Plasma Calcium Lab Routine Thyroid nodule (CMS/HCC) Expected: 09/01/2024 (Approximate), Expires: 09/01/2025 [facility] Comment on above: Expected: 09/01/2024 (Approximate), Expires: 09/01/2025 Start: 09-01-2024 End: 09-01-2025 Parathyrin.intact [Mass/volume] in Serum or Plasma PTH, intact Lab Routine Thyroid nodule (CMS/HCC) Expected: 09/01/2024 (Approximate), Expires: 09/01/2025 [facility] Work Phone: Comment on above: Expected: 09/01/2024 (Approximate), Expires: 09/01/2025 Start: 09-01-2024 End: 09-01-2025 Thyrotropin [Units/volume] in Serum or Plasma TSH Lab Routine Thyroid nodule ([facility]/HCC) Expected: 09/01/2024 (Approximate), Expires: 09/01/2025 [facility] Comment on above: Expected: 09/01/2024 (Approximate), Expires: 09/01/2025 Start: 09-01-2024 End: 09-01-2024 Patient encounter procedure 09/01/2024 9:45 AM EST Office Visit [facility] [address] [place] [phone] Edis Morales DO [address] [place] [address] Arrived [facility] Comment on above: Arrived Start: 09-28-2022 [facility] Start: 09-28-2022 [facility] Basic metabolic 1998 panel - Serum or Plasma Basic metabolic panel Lab Routine 09/07/2024 11:55 AM EST [facility] Work Phone: Patient referral [facility] Work Phone: Immunizations Immunization Date Immunization Notes Care Provider [facility] 05-27-2024 Seasonal, trivalent, recombinant, injectable influenza vaccine, preservative free Edis Morales DO Work Phone: [facility] 05-05-2021 influenza virus vaccine, unspecified formulation Edis Morales DO Work Phone: [facility] 04-28-2020 influenza, injectable, quadrivalent, preservative free Edis Morales DO Work Phone: [facility] NEGATED: Highlighted row has not occurred!07-30-2022 influenza virus vaccine, unspecified formulation Sanjay ZUÑIGA [facility] [place] Payers Date Payer Category Payer Self-pay 2022 Private Health Insurance [employer] [id number] 2022 Unknown [id number] 1990 Unknown [id number] 2.16.840.1.998607.3.579.2. 727 1990 Unknown [id number] 2.16.840.1.279235.3.579.2. 727 1990 Unknown [id number] 2.16.840.1.082624.3.579.2. 727 1990 Unknown [id number] 2.16.840.1.760349.3.579.2. 727 1990 Unknown [id number] 2.16.840.1.944991.3.579.2. 727 1990 Unknown [id number] 2.16.840.1.874670.3.579.2. 593 1990 Unknown [id number] 2.16.840.1.657390.3.579.2. 593 1990 Unknown [id number] 2.16.840.1.917311.3.579.2. 593 1990 Unknown [id number] 2.16.840.1.960108.3.579.2. 593 1990 Unknown [id number] 2.16.840.1.985907.3.579.2. 593 1990 Unknown [id number] 2.16.840.1.889457.3.579.2. 593 1990 Unknown [id number] 2.16.840.1.011318.3.579.2. 593 1990 Unknown [id number] 2.16.840.1.131547.3.579.2. 593 1990 Unknown [id number] 2.16.840.1.532436.3.579.2. 593 1990 Unknown [id number] 2.16.840.1.265727.3.579.2. 593 1990 Unknown [id number] 2.16.840.1.343132.3.579.2. 593 1990 Unknown [id number] 2.16.840.1.300202.3.579.2. 593 1990 Unknown [id number] 2.16.840.1.952785.3.579.2. 1259 1959 Unknown [id number] Unknown [id number] 2.16.840.1.234929.3.579.2. 531 Unknown [id number] 2.16.840.1.104926.3.579.2. 531 Social History Date Type Detail Facility Start: 07-30-2022 End: 09-07-2024 Tobacco smoking status Never smoked tobacco (finding) [facility] [place] Tobacco smoking status Never [facility] [place] Start: 09-01-2024 Sex Assigned At Female F [facility] Start: 1990 Sex Assigned At Female F [facility] Start: 09-01-2024 Tobacco use and exposure Smokeless tobacco non-user [facility] Start: 09-01-2024 Alcoholic beverage intake Ex-drinker (finding) [facility] Start: 09-01-2024 History of Social function [facility] Start: 2024 Gender identity Identifies as female gender (finding) [facility] consumption unknown [facility] Start: 09-08-2024 Sex Female (finding) [facility] Goals Date Patient Goal Desired Activity /State Functional Status Date Assessment Result Facility 07-30-2022 Functional Status N/A [facility] [place] Clinical Notes 08-20-2022 to 09-01-2024 Kerri Spann MA - 09/01/2024 9:45 AM ESTBenkirby Morales DO - 09/01/2024 9:45 AM EST Note Date & Type Note Facility 09-01-2024 History of Present illness Narrative Formatting of this note might be differe nt from the original. Work note Allergies as of 09/01/2024 - Reviewed 09/01/2024 Allergen Reaction Noted Morphine 08/29/2024 Silver 08/29/2024 Past Medical History: Diagnosis Date BMI 40.0-44.9, adult ([facility]) 08/29/2024 Cervical radiculopathy 08/29/2024 History of pilonidal cyst 08/29/2024 HTN (hypertension) ([facility]) 08/29/2024 Hypercholesteremia ([facility]) 08/29/2024 Insomnia 08/29/2024 Migraines ([facility]) 08/29/2024 Morbid obesity ([facility]) 08/29/2024 Orthostatic hypotension 08/29/2024 Current Outpatient Medications: acebutolol (Sectral) 200 MG capsule, Take 200 mg by mouth in the morning and 200 mg before bedtime., Disp: , Rfl: DULoxetine (Cymbalta) [address] capsule, TAKE 1 CAPSULE BY MOUTH EVERY DAY FOR 30 DAYS, Disp: , Rfl: lamoTRIgine (LaMICtal) 200 MG tablet, TAKE 1 & 1/2 (ONE & ONE-HALF) TABLETS BY MOUTH ONCE DAILY, Disp: , Rfl: oxaprozin (Daypro) 600 MG tablet, Take 600 mg by mouth Daily, Disp: , Rfl: pantoprazole (ProtoNix) 40 MG EC tablet, Take 40 mg by mouth in the morning and 40 mg before bedtime., Disp: , Rfl: potassium chloride CR (K-Tab) 20 MEQ ER tablet, Take 20 mEq by mouth Take with food., Disp: , Rfl: sucralfate (Carafate) 1 g tablet, , Disp: , Rfl: tiZANidine (Zanaflex) 4 MG tablet, TAKE 2 TABLETS BY MOUTH EVERYDAY AT BEDTIME, Disp: , Rfl: triamterene-hydrochlorothiazide (Maxzide) 75-50 MG tablet, TAKE 1 TABLET BY MOUTH EVERY DAY IN THE MORNING FOR 90 DAYS, Disp: , Rfl: Past Surgical History: Procedure Laterality Date FOOT SURGERY HAND SURGERY TONSILLECTOMY Social History Socioeconomic History Marital status: Spouse name: Not on file Number of children: Not on file Years of education: Not on file Highest education level: Not on file Occupational History Not on file Tobacco Use Smoking status: Never Smokeless tobacco: Never Substance and Sexual Activity Alcohol use: Not Currently Drug use: Defer Sexual activity: Not on file Other Topics Concern Not on file Social History Narrative Not on file Social Drivers of Health Financial Resource Strain: Not on file Food Insecurity: Not on file Transportation Needs: Not on file Physical Activity: Not on file Stress: Not on file Social Connections: Not on file Intimate Partner Violence: Not on file Housing Stability: Not on file Subjective Patient ID: HPI Patient is a 34-year-old female referred by Dr. Urena for highly suspicious right thyroid nodule. Patient underwent a [facility] Molecular testing shows the molecular profiling is greater than 95 percent sensitivity for malignancy. The tumor is in the right thyroid lobe measuring about 1.2 cm in greatest dimension. Patient is asymptomatic for this. She was also told she had a small nodule in the left lobe but that was not biopsied. She has no pertinent risk factors for thyroid cancer, there is a significant family history of thyroid disorder but not cancer. Otherwise relatively healthy. Review of Systems ROS The specialty specific review of systems is noncontributory except for that recorded in the intake questionnaire and /or described in the history of present illness. Objective ENT Physical Exam Physical Exam Constitutional: Appearance: Normal appearance. HENT: Head: Atraumatic. Ears: External ear shows no abnormality Bilateral ear canals are clear Tympanic membranes intact, no evidence of middle ear fluid or other pathology. Nose: External nose appears to be normal Nares patent. Septal deviation to the right No evidence of polyp, mass or pus bilaterally. Oral Cavity: No evidence of trismus Lips appear normal Dental good Tongue of normal size and configuration, floor of mouth mucosa clear. Buccal mucosa shows no evidence of ulceration, mass or other abnormality Hard palate soft palate mucosa intact with no evidence of mass, ulceration or other abnormality Uvula of normal size and configuration Oropharynx: Tonsils small Posterior pharyngeal wall normal Neck: No evidence of palpable abnormality Thyroid without evidence of thyromegaly or mass. No cervical lymphadenopathy present. Cardiovascular: Rate and Rhythm: Normal rate and regular rhythm. . Skin: General: Skin is warm and dry. Neurological: General: No focal deficit present. Mental Status: alert and oriented to person, place, and time. THYROID ULTRASOUND EXAMINATION Indication: Thyroid nodule After informed consent was obtained the patient was placed supine on the examining table. Patient was asked to extend the neck. Topical ultrasound jelly was used. The right lobe of the thyroid gland measures __ 4.6 cm in greatest dimension. In the midportion of the lobe anteriorly is a fairly well demarcated hypoechoic nodule with calcific changes measuring 1.2 cm in greatest dimension. I think I see a plane between it and the strap muscle. I do not see any in the lateral neck or central compartment. The isthmus is unremarkable. The left lobe of the thyroid gland measures __ 4.7 cm greatest dimension. There is a 8 mm hypoechoic nodule in the inferior aspect of the lobe with no internal vascularity microcalcification. No adenopathy is present. There is no adenopathy in the central compartment. There is no appreciable adenopathy in either lateral neck. FIBEROPTIC NASOPHARYNGOLARYNGOSCOPY A diagnostic flexible fiberoptic laryngoscopy was performed. The flexible fiberoptic laryngoscope was placed into the nose and advanced to the level of the tip of the epiglottis. Examination of the larynx including both surfaces of the epiglottis false and true vocal folds, arytenoids and surrounding mucosal surfaces show no evidence of lesion, ulceration or mass. Normal bilateral true vocal fold motion is present. Bilateral piriform sinuses and base of tongue appear without lesion Assessment/Plan Veronica was seen today for thyroid nodule. Diagnoses and all orders for this visit: Thyroid nodule (CMS/[facility]) Comments: Given the above, this almost likely represents a papillary thyroid cancer. Orders: - PTH, intact; Future - Calcium; Future - TSH; Future - PTH, intact - Calcium - TSH I therefore recommended a right thyroid lobectomy and isthmusectomy, if I can palpate the nodule in the left inferior lobe I will either resect or at least biopsy it. Additionally I will perform a central compartment lymph node dissection if there is any suspicious adenopathy. The risks and benefits of thyroidectomy were discussed with the patient. These include but are not inclusive of perioperative , infection, major neurovascular injury, recurrent laryngeal nerve injury/dysfx, hoarsness, permanent vocal cord paralysis, permanent hyoparathyroidism, poor scaring, swallowing and/or voice difficulties, etc. The patient has consented to proceed. documented in this encounter [facility] 06-12-2023 Evaluation note Encounter Date Diagnosis Assessment [...] Other specified postprocedural states (ICD-10 - Z98.890) [facility] Other 07-26-2023 Evaluation note* Encounter Date Diagnosis Assessment Notes Treatment Notes Treatment Clinical Notes Feb, Crushing injury of right thumb, subsequent encounter (ICD-10 - S67.01XD) Patient instructed to keep cuticle moisturized and pushed back. Activity as tolerated Feb, Injury of nail bed o f finger of right hand, subsequent encounter (ICD-10 - S69.91XD) Feb, Other specified postprocedural states (ICD-10 - Z98.890) [facility] Other 06-01-2023 Evaluation note* Encounter Date Diagnosis [...] Other specified postprocedural states (ICD-10 - Z98.890) [facility] Other 03-21-2023 Evaluation note* Encounter Date Diagnosis [...] Other specified postprocedural states (ICD-10 - Z98.890) [facility] Other 02-28-2023 Evaluation note* Encounter Date Diagnosis Assessment Notes Treatment Notes Treatment Clinical Notes Sep, Crushing injury of right thumb, initial encounter (ICD-10 - S67.01XA) Patient instructed on the use of moisturizer for the nailbed. Return to work note given Sep, Injury of nail bed of right thumb, initial encounter (ICD-10 - S69.91XA) [facility] Other 02-14-2023 Evaluation note* Encounter Date Diagnosis Assessment Notes Treatment Notes Treatment Clinical Notes Sep, Crushing injury of right thumb, initial encounter (ICD-10 - S67.01XA) Patient instructed to continue with current wound care and use of stax splint. Continue off work Sep, Injury of nail bed of right thumb, initial encounter (ICD-10 - S69.91XA) [facility] Other 02-07-2023 Evaluation note* Encounter Date Diagnosis Assessment Notes Treatment Notes Treatment Clinical Notes Sep, Crushing injury of right thumb, initial encounter (ICD-10 - S67.01XA) Patient instructed to continue daily soaking. Rx given for Zofran due to vomitting from narcotics Sep, Injury of nail bed of right thumb, initial encounter (ICD-10 - S69.91XA) [facility] Other 01-31-2023 NotePROCEDURE: XR HAND RT MIN [...] Electronically authenticated by: MYAH LEAL Date: 2022-09-25 07:51[facility]01-18-2023 NoteOPERATIVE NOTE OPERATION DATE: 09/12/2022 PREOPERATIVE DIAGNOSIS: [...] room in good condition. CC: [facility]22 NoteChief Complaint consultation for RUQ pain HPI [...] morphine (Chest pain) Socia (more content not included)...[facility]: Result Comment: Electronically Signed By: SOL ESPINOZA, Sanjay Paredes\Date and Time Signed: 08/20/22 10:27 ESTEvaluation + Plan note No data available for this section [facility] [place] Evaluation noteNo assessment information available [facility] Work Phone: Evaluation noteNo InformationNort LMN-1 Other Evaluation note* Diagnosis Thyroid nodule (CMS/HCC) Nontoxic uninodular goiter documented in this encounter [facility] N[facility]ative - Reported* Type Description Date Medical History depression Medical History bradycardia Medical History tachycardia Surgical History tonsillectomy Surgical History pylenol cysts Surgical History wisdom teeth Surgical History plantar fasciitis, tarsal tunne l x 2 right foot [facility] Other History general Narrative - Reported* Type Description Date Medical History depression Medical History bradycardia Medical History tachycardia Surgical History tonsillectomy Surgical History pylenol cysts Surgical History wisdom teeth Surgical History plantar fasciitis, tarsal tunne l x 2 right foot Surgical History right thumb I & D 09/28/2022 [facility] Other Hospital Discharge instructions No data available for this section [facility] [place] Progress note No data available for this section [facility] [place] Chief Complaint and Reason for Visit Chief Complaint crushing injury Chief Complaint crushing injury crushing injury Chief Complaint Admit Date Unknown August 03, 2024 9 :40am Right Thyroid Nodule September 07, 2024 11:18am Family History No Family History Records Found Relationship Condition Age at Onset Recorded Date/T fernando father Myocardial infarction Unknown Not Specified Type 2 diabetes mellitus Unknown Hypothyroidism Unknown Myocardial infarction Unknown Hypertension Unknown Mitral valve prolapse Unknown Relationship Condition Age at Onset Recorded Date/T fernando father Myocardial infarction Unknown mother Type 2 diabetes mellitus Unknown Hypothyroidism Unknown Myocardial infarction Unknown Hypertension Unknown Mitral valve prolapse Unknown Malignant neoplasm Unknown brother Colitis Unknown Acute Crohn's disease Unknown Advance Directives No Advanced Directives Records Found Advance Directive Response Recorded Date/ Time Advance [...] Active Bonnie Jeffrey MD Attending Provider Active 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 Start Date End Date Donnell Brooke MD [address] [place] [id number] PCP - General Family Medicine 11/18/23 Willa Hanks DO [address] [place] [address] Referring Physician Neurology 11/18/23 Edis Morales DO [address] [place] [address] Otolaryngology 09/01/24 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 Start Date End Date Donnell Brooke MD [address] [place] [address] PCP - General Family Medicine 11/18/23 Willa Hanks DO [address] [place] [address] Referring Physician Neurology 11/18/23 Edis Morales DO [address] [place] [address] Otolaryngology 09/01/24 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 Start Date End Date Donnell Brooke MD [address] [place] [address] PCP - General Family Medicine 11/18/23 Willa Hanks DO [address] [place] [address] Referring Physician Neurology 11/18/23 Edis Morales DO [address] [place] [address] Otolaryngology 09/01/24 Team Status: Inactive Member Role Status Dates Donnell Brooke MD Primary Care Provide r, Attending Provider Active Start: August 03, 2024 End: August 03, 2024 Team Status: Inactive Member Role Status Dates Donnell Brooke MD Primary Care Provider Active Start: September 07, 2024 End: September 07, 2024 Edis Morales DO Attending Provider Active S tart: September 07, 2024 End: September 07, 2024 Goals (unrecognized section and content) Goals may be documented in a n alternate section INFORMATION SOURCE (unrecogn ized section and content) DATE CREATED AUTHOR 09/29/2022 [facility] DATE CREATED AUTHOR AUTHOR'S ORGANIZ ATION 12/01/2022 [facility] DATE CREATED AUTHOR AUTHOR'S ORGANIZ ATION 09/07/2024 [facility] EPIC DATE CREATED AUTHOR AUTHOR'S ORGANIZ ATION 09/10/2024 [facility] REASON FOR VISIT (unrecogniz ed section and content) Reason Comments Thyroid Nodule New Patient : Thyroi d nodule / FNA done FOR RECORDS PERTAINING TO PATIENTS WHO ARE [...] BE BASED ON THE PRIMARY CLINICAL RECORDS. [employer] provides no warranty or guarantee of the accuracy or completeness of information in this document.
--- NOTE | 2024-09-12 01:24 | ED.NAVMDI1 ---
HPI - Nausea/Vomiting/Diarrhea General Chief complaint: Nausea/Vomiting/Diarrhea Stated complaint: dizzy Time Seen by Provider: 09/12/24 01:14 Source: patient Mode of arrival: Wheelchair Limitations: no limitations History of Present Illness HPI Narrative: pt brought in by mother for treatment after she started vomiting at 8pm tonight. She said that her child had nausea and vomiting yesterday but this is different . no fever or chills. No abdominal pain. No urinary symptoms. No flank pain, chest pain or shortness of breath. Related Data Home Medications ?Medication ?Instructions ?Recorded ?Confirmed acebutolol 200 mg capsule 200 mg PO BID 06/09/23 08/03/24 oxaprozin 600 mg tablet 600 mg PO DAILY 06/09/23 08/03/24 pantoprazole 40 mg tablet,delayed 40 mg PO Q12H 06/09/23 06/09/23 release phentermine 37.5 mg capsule 37.5 mg PO DAILY 06/09/23 06/09/23 tizanidine 4 mg tablet 8 mg PO BEDTIME 06/09/23 08/03/24 trazodone 50 mg tablet 50 mg PO BEDTIME 06/09/23 06/09/23 triamterene 75 1 tab PO DAILY 06/09/23 08/03/24 mg-hydrochlorothiazide 50 mg tablet duloxetine 60 mg capsule,delayed 60 mg PO DAILY 07/21/24 08/03/24 release wuqbw-klx-xxebyplzqa-C-zinc 6 ml PO 07/21/24 gram-38 mg-25 mg-34 mg/5 mL oral syrup lamotrigine 100 mg tablet 300 mg PO DAILY 07/21/24 08/03/24 pantoprazole 20 mg tablet,delayed 20 mg PO DAILY 07/21/24 08/03/24 release potassium chloride 20 mEq 20 meq PO DAILY 07/21/24 08/03/24 tablet,extended release(part/cryst) (Klor-Con M) sucralfate 1 gram tablet 1 g PO .before meals 07/21/24 08/03/24 Previous Rx's ?Medication ?Instructions ?Recorded tizanidine 4 mg tablet 4 mg PO TID #30 tabs 06/11/23 tobramycin 0.3 % eye drops 1 drp ophthalmic (eye) Q4H #5 mL 01/20/24 tramadol 50 mg tablet 50 mg PO TID PRN pain 3 days #9 01/20/24 tabs dicyclomine 10 mg capsule 10 mg PO QID PRN abdominal pain 03/26/24 #12 caps ondansetron 4 mg disintegrating 4 mg PO Q8H PRN nausea and 03/26/24 tablet vomiting 4 days #16 tabs ondansetron 4 mg disintegrating 4 mg PO Q6H PRN nausea and 09/12/24 tablet vomiting #10 tabs Allergies Allergy/AdvReac Type Severity Reaction Status Date / Time irbesartan Allergy Severe hypotension Verified 08/03/24 11:11 and renal insufficiency silver Allergy Severe Hives Verified 07/21/24 13:13 PFSH [facility] Medical History (Updated 09/12/24 @ 01:59 by Joselito Cano) Anxiety and depression ?F41.9 - Anxiety disorder, unspecified (ICD-10) ?F32.A - Depression, unspecified (ICD-10) Acute intractable headache ?R51.9 - Headache, unspecified (ICD-10) Surgical History (Updated 08/03/24 @ 11:12 by Samantha Porter) H/O fine needle aspiration with imaging guidance ?Z98.890 - Other specified postprocedural states (ICD-10) H/O thumb surgery ?Z98.890 - Other specified postprocedural states (ICD-10) History of excision of pilonidal cyst ?Z98.890 - Other specified postprocedural states (ICD-10) H/O fasciotomy ?Z98.890 - Other specified postprocedural states (ICD-10) [place] teeth removed ?K08.409 - Partial loss of teeth, unspecified cause, unspecified class (ICD-10) History of tonsillectomy and adenoidectomy ?Z90.89 - Acquired absence of other organs (ICD-10) Social History Smoking status: Never smoker Little interest or pleasure in doing things: not at all Feeling down, depressed, or hopeless: not at all Exam Narrative Exam Narrative: Nurses notes and vital signs reviewed and patient is not hypoxic. afebrile General: Well-appearing and in no apparent distress. Skin: Warm, dry, slight pallor noted. Head: Normocephalic, atraumatic. Neck: Supple, non-tender. No meningismus Eye: Pupils are equal, round and EOMI. No scleral icterus. Ears, Nose, Mouth, and Throat: Oral mucosa is slightly dry. Cardiovascular: Regular Rate and Rhythm without murmur, gallop or rub. Respiratory: No accessory muscle use or respiratory distress. Lungs are clear to auscultation, no wheezing, rales or rhonchi Musculoskeletal: normal ROM GI: Abdomen is soft, non-distended. Normal bowel sounds. No masses appreciated. No tenderness to palpation. No rebound, guarding, or rigidity noted. Neurological: A&O x4. No cranial nerve dysfunction observed. No truncal ataxia. Moves all extremities. Sensation intact. Psychiatric: Cooperative and interactive. Normal mood and affect. Constitutional Vital Signs, click to edit/add: Last Vital Signs Temp 98.2 F 09/12/24 01:15 Pulse 94 H 09/12/24 01:15 Resp 16 09/12/24 01:15 BP 149/94 H 09/12/24 01:15 Pulse Ox 95 09/12/24 01:15 O2 Del Method Room Air 09/12/24 01:15 Course Vital Signs Vital signs: Vital Signs Temperature 98.2 F 09/12/24 01:15 Pulse Rate 94 H 09/12/24 01:15 Respiratory Rate 16 09/12/24 01:15 Blood Pressure 149/94 H 09/12/24 01:15 Pulse Oximetry 95 09/12/24 01:15 Oxygen Delivery Method Room Air 09/12/24 01:15 Temperature 98.2 F 09/12/24 01:15 Pulse Rate 94 H 09/12/24 01:15 Respiratory Rate 16 09/12/24 01:15 Blood Pressure 149/94 H 09/12/24 01:15 Pulse Oximetry 95 09/12/24 01:15 Oxygen Delivery Method Room Air 09/12/24 01:15 MDM - Nausea/Vomiting/Diarrhea MDM Narrative Medical decision making narrative: Emergency department nurse inserted peripheral IV shortly after the patient's arrival. The patient was ordered to receive a liter of normal saline IV fluid, IV Zofran and blood was also ordered to be obtained and sent for testing. Patient has history of migraines but denied any headache at this time. No meningismus on examination. She has exposure to another patient with nausea and vomiting -her child -over the last couple of days. CBC with minimal elevation of WBC to 11.7. K low at 2.8. Cr slightly elevated at 1.43, similar to patient's prior values. Pt was ordered to receive oral potassium for repletion. She was informed of this and I instructed her to drink gatorade or other electrolyte solutions with potassium. Once her nausea is controlled and vomiting stopped, she will be encouraged to eat bananas. Pt still complained of nausea and had no relief with first dose of zofran. She was ordered to receive additional 4mg of IV Zofran and an IM injection of Phenergan. Pt discharged home with prescription for additional zofran. Clear liquid diet, as discussed above, until the patient's vomiting subsides. Medical Records Attestation: I reviewed the patient's medical records. Lab Data Attestation: I reviewed the patient's lab results. Labs: Lab Results 09/12/24 Range/Units 01:25 WBC 11.7 H (4.0-11.0) 10^3/uL RBC 5.22 (4.20-5.40) 10^6/uL Hgb 13.5 (12.0-16.0) g/dL Hct 41.9 (36.0-48.0) % MCV 80.3 L (81.0-99.0) fL MCH 25.9 L (26.7-34.0) pg MCHC 32.2 (29.9-35.2) g/dL RDW 14.4 (11.0-15.0) % Plt Count 331 (150-450) 10^3/uL MPV 8.9 L (9.5-13.5) fL Neut % (Auto) 91.7 H (43.0-75.0) % Lymph % (Auto) 3.8 L (20.5-60.0) % Douglas % (Auto) 3.3 (1.7-12.0) % Eos % (Auto) 0.5 L (0.9-7.0) % Baso % (Auto) 0.3 (0.2-2.0) % Neut # (Auto) 10.7 H (1.4-6.5) 10^3/uL Lymph # (Auto) 0.4 L (1.2-3.8) 10^3/uL Douglas # (Auto) 0.4 (0.3-0.8) 10^3/uL Eos # (Auto) 0.1 (0.0-0.7) 10^3/uL Baso # (Auto) 0.0 (0.0-0.1) 10^3/uL Abs Immat Gran (auto) 0.05 H (0.00-0.03) 10^3/uL Imm/Tot Granulo (auto) 0.4 (0.0-0.5) % Sodium 138 (136-145) mmol/L Potassium 2.8 L* (3.5-5.1) mmol/L Chloride 100 (98-107) mmol/L Carbon Dioxide 25.7 (21.0-32.0) mmol/L Anion Gap 15.1 BUN 16.0 (7.0-18.0) mg/dL Creatinine 1.43 H (0.55-1.02) mg/dL Est GFR ( Amer) 51 L (>=60 mL/min/1.73m^2) Est GFR (Non-Af Amer) 42 L (>=60 mL/min/1.73m^2) BUN/Creatinine Ratio 11.2 Glucose 183 H (74-106) mg/dL Calcium 9.2 (8.5-10.1) mg/dL Total Bilirubin 0.4 (0.2-1.0) mg/dL AST 16 (15-37) U/L ALT 27 (14-59) U/L Alkaline Phosphatase 85 (46-116) U/L Total Protein 8.0 (6.4-8.2) g/dL Albumin 3.4 (3.4-5.0) g/dL Globulin 4.6 g/dL Albumin/Globulin Ratio 0.7 Lipase 55.0 (16.0-77.0) U/L Discharge Plan Discharge Chief Complaint: Nausea/Vomiting/Diarrhea Clinical Impression: Nausea & vomiting, Acute hypokalemia Patient Disposition: Home, Self-Care Time of Disposition Decision: 01:28 Mode of Transportation: Private Vehicle Prescriptions / Home Meds: New ondansetron 4 mg tablet,disintegrating 4 mg PO Q6H PRN (Reason: nausea and vomiting) Qty: 10 0RF No Action tobramycin 0.3 % drops 1 drp ophthalmic (eye) Q4H Qty: 5 0RF Rx Instructions: please apply to the left eye tramadol 50 mg tablet 50 mg PO TID PRN (Reason: pain) 3 Days Qty: 9 0RF dicyclomine 10 mg capsule 10 mg PO QID PRN (Reason: abdominal pain) Qty: 12 0RF ondansetron 4 mg tablet,disintegrating 4 mg PO Q8H PRN (Reason: nausea and vomiting) 4 Days Qty: 16 0RF duloxetine 60 mg capsule,delayed release(DR/EC) 60 mg PO DAILY lamotrigine 100 mg tablet 300 mg PO DAILY sucralfate 1 gram tablet 1 g PO .before meals pantoprazole 20 mg tablet,delayed release (DR/EC) 20 mg PO DAILY qwtaw-afo-axhqqriaiq-C-zinc 6 gram-38 mg- 25 mg-34 mg/5mL syrup PO potassium chloride [Klor-Con M20] 20 mEq tablet,ER particles/crystals 20 meq PO DAILY acebutolol 200 mg capsule 200 mg PO BID oxaprozin 600 mg tablet 600 mg PO DAILY pantoprazole 40 mg tablet,delayed release (DR/EC) 40 mg PO Q12H phentermine 37.5 mg capsule 37.5 mg PO DAILY tizanidine 4 mg tablet 8 mg PO BEDTIME trazodone 50 mg tablet 50 mg PO BEDTIME triamterene-hydrochlorothiazid 75-50 mg tablet 1 tab PO DAILY tizanidine 4 mg tablet 4 mg PO TID Qty: 30 0RF Rx Instructions: 1 po TID or 1 in am and 2 at hs Print Language: Tajik Instructions: Hypokalemia (ED), Acute Nausea and Vomiting (ED) Referrals: Felipe Brooke MD [Primary Care Provider] - 1 week Discharge Date/Time: 09/12/24 03:03
[2024-09-12 01:29] LABS: Basophils Percent Auto 0.3 % (0.2-2.0); Eosinophils Absolute Auto 0.1 10^3/uL (0.0-0.7); Eosinophils Percent Auto 0.5 % (0.9-7.0); Hematocrit 41.9 % (36.0-48.0); Hemoglobin 13.5 g/dL (12.0-16.0); Immature Granulocytes Abs Auto 0.05 10^3/uL (0.00-0.03); Immature Granulocytes Pct Auto 0.4 % (0.0-0.5); Lymphocytes Absolute Auto 0.4 10^3/uL (1.2-3.8); Lymphocytes Percent Auto 3.8 % (20.5-60.0); Mean Corpuscular HGB Conc 32.2 g/dL (29.9-35.2); Mean Corpuscular Hemoglobin 25.9 pg (26.7-34.0); Mean Corpuscular Volume 80.3 fL (81.0-99.0); Mean Platelet Volume 8.9 fL (9.5-13.5); Monocytes Absolute Auto 0.4 10^3/uL (0.3-0.8); Monocytes Percent Auto 3.3 % (1.7-12.0); Neutrophils Absolute Auto 10.7 10^3/uL (1.4-6.5); Neutrophils Percent Auto 91.7 % (43.0-75.0); Platelet Count 331 10^3/uL (150-450); Red Blood Count 5.22 10^6/uL (4.20-5.40); Red Cell Distribution Width 14.4 % (11.0-15.0); White Blood Count 11.7 10^3/uL (4.0-11.0)
[2024-09-12 01:44] LABS: Alanine Aminotransferase 27 U/L (14-59); Albumin Globulin Ratio 0.7; Albumin Level 3.4 g/dL (3.4-5.0); Alkaline Phosphatase 85 U/L (46-116); Anion Gap 15.1; Aspartate Amino Transferase 16 U/L (15-37); BUN Creatinine Ratio 11.2; Bilirubin Total 0.4 mg/dL (0.2-1.0); Calcium 9.2 mg/dL (8.5-10.1); Carbon Dioxide 25.7 mmol/L (21.0-32.0); Chloride 100 mmol/L (98-107); Estimated GFR (African America 51 (>=60 mL/min/1.73m^2); Estimated GFR (Non-African Ame 42 (>=60 mL/min/1.73m^2); Globulin 4.6 g/dL; Glucose 183 mg/dL (74-106); Sodium 138 mmol/L (136-145)
[2024-09-12] MEDS: 0.9 % SODIUM CHLORIDE 1,000 ML 999 ML IV (01:48)
[2024-09-12] MEDS: ONDANSETRON PF 4 MG/2 ML VIAL IV ×2 (01:48→02:20)
[2024-09-12 01:52] LABS: Potassium 2.8 mmol/L (3.5-5.1)
[2024-09-12] MEDS: POTASSIUM BICARBONATE/CIT 25 MEQ TABLET EFF 50 MEQ PO (02:20)
[2024-09-12] MEDS: PROMETHAZINE HCL 25 MG/ML VIAL IM (02:20)
== END 2024-09-12 03:03 | disposition home or self-care (01) ==
PROVIDERS: Emergency Provider Emergency Medicine; PCP Family Medicine
DX: R11.2 Nausea with vomiting, unspecified (principal); E87.6 Hypokalemia
CPT/HCPCS: 36415; 80053; 83690; 85025; 96361; 96372; 96374; 96376; 99284; J2405; J2550

== ENCOUNTER 2024-10-24 08:59 | Outpatient (OUT) | payer OTHER, SELFPAY ==
--- OUTSIDE RECORDS SUMMARY | 2024-10-24 09:04 | XMS_ITS | CCD ---
Author Organization [facility] CliniSyga Care Team Providers Care [place] House Operator Name Role Phone Felipe Brooke Primary Care Physician MD Bonnie Jeffrey Attending Provider [phone] MD Felipe Brooke Primary Care Provider [phone] Edwardo PROVIDERFelipe Referring Unavailabl e NILL, Sanjay Gibbons Attending Unavailable NILL, Sanjay Gibbons Attending Unavailable NILL, Sanjay Gibbons Attending Unavailable NILL, Sanjay Gibbons Attending Unavailable Hoy PROVIDERFelipe Referring Unavailabl e NILL, Sanjay Gibbons Attending Unavailable Bonnie Jeffrey Unavailable MD Bonnie Jeffrey Attending Provider MD Felipe Brooke Primary Care Provider [phone] MARTHAY ., DR JACOBO Primary Care Unavailable HOY ., DR JCAOBO Admitting Unavailable HOY ., DR JACOBO Attending [...] REINECK, DR SUJEY Anthony Consulting Unavailabl e ELVIS, DR MYAH Gibbons Consulting Unavailable DIAB ., SOHAIL Consulting Unavailable MARKER ., DR VEGA Admitting Unavailable MARKER ., DR VEGA Consulting Unavailable HOY ., DR JACOBO Primary Care Unavailable MARKER ., DR VEGA Attending Unavailable Felipe Brooke MD Primary Care Provider [phone] Willa Hanks DO Unavailable Edis Morales DO Unavailable [phone] Felipe Brooke MD Primary Care Provider [phone] Felipe Brooke MD Attending Provider Edis Morales DO Attending Provider EDIS MORALES Attending Unavailable EDIS MORALES Attending Unavailable MARTHAY, FELIPE M Referring Unavailable MURCEKEDIS Attending Unavailable Edwardo, Felipe M Primary Care Unavailable Edis Morales Attending Unavailable Edis Morales Admitting Unavailable Hoy, Felipe M Primary Care Unavailable Hoy, Felipe M Admitting Unavailable Hoy, Felipe M Attending Unavailable Hocande, Felipe M Primary Care Unavailable Edis Morales Attending Unavailable Edis Morales Admitting Unavailable Allergies Allergy Classification Reported Allergen(s) Allergy Type Date of Onset Reaction(s) Facility (13 sources) Morphine; Translations: [morphine] Drug Allergy 3 Chest pain (finding) [facility] [place] (20 sources) SILVER; Translations: [SILVER] Allergy to substance 4 INFECTION, Edema, silver wound pack reversed healing, Edema, silver wound pack reversed healing [facility] Comment on above: reversed healing (8 sources) irbesartan; Translations: [irbesartan] Drug Allergy 3 Unknown Reaction [facility] Comment on above: renal failure (1 source) [facility]; Translations: [MORPHINE SUBSTITUTE] Propensity to adverse reactions (disorder) [facility] Repository (1 source) Morphine Drug Allergy [facility] Repository Medications Current Medications Medication Drug Class(es) Dates Sig (Normalized) Sig (Original) acebutolol 200 mg oral capsule (20 sources) beta-Adrenergic Ana Start: 09-26-2022 take 1 capsule by mouth in the morning acebutolol (Sectral) 200 MG capsule Take 200 mg by mouth in the morning and 200 mg before bedtime. 08/20/2024 Active Start: 07-27-2022 take 1 capsule by [facility] twice daily acebutolol 200 mg Cap 200 mg = 1 cap(s), Oral, BID, Refills(s) 0 Start Date: 07/27/22 Status: Ordered take 1 capsule by [facility] every twenty-four hours Acebutolol HCl 200 MG [...] DULoxetine 60 mg delayed release oral capsule (11 sources) Serotonin and Norepinephrine Reuptake Inhibitor Start: 08-06-2024 take 1 capsule by mouth once daily DULoxetine (Cymbalta) [address] capsule TAKE 1 CAPSULE BY MOUTH EVERY DAY FOR 30 DAYS 08/06/2024 Active hydroCHLOROthiazide 50 mg / triamterene 75 mg oral tablet (20 sources) Potassium-sparing Diuretic, Thiazide Diuretic Start: 07-27-2022 take 1 tablet by mouth once daily in the morning triamterene-hyd rochlorothiazid e (Maxzide) 75-50 MG tablet TAKE 1 TABLET BY MOUTH EVERY DAY IN THE MORNING FOR 90 DAYS 07/28/2024 Active lamoTRIgine 200 mg oral tablet (11 sources) Mood Stabilizer, Anti-epileptic Agent Start: 09-07-2024 Lamotrigine 200 mg tablet Active 300 MG PO Daily at bedtime September 07, 2024 12:00am Start: 08-03-2024 take 1 tablet by alo once daily lamoTRIgine (LaMICtal) 200 MG tablet TAKE 1 & 1/2 (ONE & ONE-HALF) TABLETS BY MOUTH ONCE DAILY 08/03/2024 Active levonorgestrel 0.432424 mg/hr intrauterine system (3 sources) Progestin, Progestin-containing [...] Sep, Active oxaprozin 600 mg oral tablet (20 sources) Nonsteroidal Anti-inflammatory Drug Start: 09-26-2022 take 1 tablet by mouth once daily oxaprozin (Daypro) 600 MG tablet Take 600 mg by mouth Daily 08/20/2024 Active Start: 09-26-2022 take 1200 mg by mout h once daily at bedtime Oxaprozin Active 1200 MG PO Daily at bedtime September 26, 2022 1:00am Start: 07-27-2022 take 2 tablets by mo [facility] once daily oxaprozin 600 mg Tab 1,200 mg = 2 tab(s), Oral, Daily, Refills(s) 0 Start Date: 07/27/22 Status: Ordered pantoprazole 40 mg delayed release oral tablet (20 sources) Proton Pump Inhibitor Start: 09-26-2022 take [...] chloride 20 meq extended release oral tablet (11 sources) Start: 09-07-2024 take 2 tablets by mouth once daily in the evening Potassium Chloride 20 mEq tablet extended release Active 40 MEQ PO Every evening September 07, 2024 12:00am Start: 08-20-2024 take 1 tablet by alo th at mealtime potassium chloride CR (K-Tab) 20 MEQ ER tablet Take 20 mEq by mouth Take with food. 08/20/2024 Active sucralfate 1000 mg oral tablet (20 sources) Aluminum Complex Start: 09-26-2022 sucralfate (C arafate) 1 g tablet 2024 Active take 1 tablet by [facility] every twelve hours Sucralfate 1 GM 1 tablet on an empty stomach Orally Twice a day Active take 1 tablet by mouth twice mesha ly Sucralfate 1 GM 1 tablet on an empty stomach Orally Twice a day Active tiZANidine 4 mg oral tablet (20 sources) Central alpha-2 Adrenergic Agonist Start: 08-06-2024 [...] 1:00am Start: 07-27-2022 take 2 tablets by [facility] at bedtime tiZANidine 4 mg Tab 8 mg = 2 tab(s), Oral, Bedtime, Refills(s) 0 Start Date: 07/27/22 Status: Ordered take 1 capsule by [facility] every eight hours tiZANidine HCl 4 MG [...] W/O CHOLECYST W/O OBST] Onset: 09-18-2022 Episodic Cancer of thyroid (2 sources) Malignant tumor of thyroid gland; Translations: [Malignant neoplasm of thyroid gland] 09-21-2024 Chronic Complications of surgical procedures or medical care (2 sources) History of subtotal thyroidectomy; Translations: [Postprocedural hypothyroidism] 09-21-2024 Chronic Congestive heart failure; nonhypertensive (1 source) Unspecified [...] Translations: [GERD WITHOUT ESOPHAGITIS] Onset: 09-18-2022 Chronic Gastritis and duodenitis (1 source) Unspecified chronic gastritis without bleeding; Translations: [UNS CHRONIC GASTRITIS W/O BLEEDING] Onset: 09-18-2022 Chronic Hypertension with complications and secondary hypertension (1 source) Hypertensive heart disease with heart failure; Translations: [HTN HEART DISEASE W/HEART FAIL] Onset: 07-05-2022 Chronic Other aftercare (1 source) Other correction (current) drug therapy; 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] Onset: 09-18-2022 Episodic Other [...] 07-27-2022 Chronic Comment on above: RIGHT Other nutritional; endocrine; and metabolic disorders (1 [...] UNS CERV] Onset: 09-11-2022 Chronic Thyroid disorders (3 sources) Thyroid nodule; Translations: [Nontoxic single thyroid nodule] Onset: 09-14-2024 09-01-2024 Chronic Thyroid disorders (1 source) Mass of thyroid gland; Translations: [Disorder of thyroid, unspecified] 09-14-2024 Episodic Unclassified (1 source) CONTACT W/AND (SUSP) EXPOS [...] Onset: 06-28-2022 Episodic Disorders of lipid metabolism (12 sources) Hypercholesterolemia; Translations: [Pure hypercholesterolemia, unspecified] Onset: 09-18-2022 Resolved: 08-29-2024 07-27-2022 Chronic Essential hypertension (13 sources) Hypertensive disorder; Translations: [Essential (primary) hypertension] Onset: 09-18-2022 Resolved: 08-29-2024 03-24-2013 Chronic Fluid and electrolyte disorders (4 sources) Dehydration; Translations: [DEHYDRATION] Onset: 07-04-2022 Episodic Fracture of upper limb (6 sources) Fracture of phalanx of finger; Translations: [Fracture of unspecified phalanx of unspecified finger, initial encounter for closed fracture] Onset: 09-27-2022 Resolved: 09-20-2024 09-28-2022 Episodic Comment on above: Problem List clean-u p per request of Phys. EHR Cmte Headache; including migraine (11 sources) Migraine; Translations: [Migraine, unspecified, not intractable, without status migrainosus] Onset: 08-29-2024 Resolved: 08-29-2024 07-27-2022 Chronic Neoplasms of unspecified nature or uncertain behavior (1 source) Myelodysplastic syndrome, unspecified; Translations: [MYELODYSPLASTIC SYNDROME UNS] Onset: 07-05-2022 Episodic Open wounds of extremities (5 sources) Laceration of nail bed of finger ; Translations: [Laceration without foreign body of unspecified finger with damage to nail, initial encounter] Onset: 09-20-2024 Resolved: 09-20-2024 09-28-2022 Episodic Comment on above: Problem List clean-u p per request of Phys. EHR Cmte Other circulatory disease (12 sources) Orthostatic hypotension; Translations: [Orthostatic hypotension] Onset: 06-29-2022 Resolved: 08-29-2024 07-27-2022 Episodic Other circulatory disease (5 sources) Hypotension, unspecified; Translations: [HYPOTENSION UNSPECIFIED] Onset: 07-02-2022 Episodic Other circulatory disease (3 sources) Orthostatic hypotension; Translations: [ORTHOSTATIC HYPOTENSION] Onset: 07-05-2022 Episodic Other nervous system disorders (5 sources) Pain in limb; Translations: [Other acute postprocedural pain] Onset: 09-20-2024 Resolved: 09-20-2024 09-28-2022 Episodic Comment on above: Problem List clean-u p per request of Phys. EHR Cmte Other nutritional; endocrine; and metabolic disorders (11 sources) Body mass index 40+ - severely obese; Translations: [Body mass index (BMI) 40.0-44.9, adult] Onset: 08-29-2024 Resolved: 08-29-2024 07-30-2022 Chronic Other nutritional; endocrine; and metabolic disorders (11 sources) Morbid obesity; Translations: [Morbid (severe) obesity due to excess calories] Onset: 08-29-2024 Resolved: 08-29-2024 07-27-2022 Chronic Other skin disorders (11 sources) H/O: skin disorder; Translations: [Personal history of diseases of the skin and subcutaneous tissue] Onset: 08-29-2024 Resolved: 08-29-2024 07-27-2022 Episodic Poisoning by other medications and drugs (1 source) Poisoning by other antihypertensive drugs, accidental (unintentional), initial encounter; Translations: [PSN OTH ANTIHYPERTENSIV RX ACC INIT] Onset: 07-02-2022 Episodic Residual codes; unclassified (11 sources) Insomnia; Translations: [Insomnia, unspecified] Onset: 08-29-2024 Resolved: 08-29-2024 07-27-2022 Episodic Spondylosis; intervertebral disc disorders; other back problems (15 sources) Cervical radiculopathy; Translations: [Radiculopathy, cervical region] Onset: 02-15-2022 Resolved: 08-29-2024 07-27-2022 Episodic Results Test Name Value Interpretation Reference Range Facility HCG,Urineon 09-14-2024 Beta HCG ( test) Ql (U) Negative Normal [facility] Comment on above: Result Comment: PERF ORMED BY: [address] [place] [address] [employer]ARD SHAWANDA MCKEON M.D. Performed By: #### U HCG #### [place] [id number] [facility] 09-14-2024 L Specimen: [id number] Received: 09/14/24 Status: PHILIP Simmons Num: [id number] Spec Type: Surgical Subm Dr: Edis Morales DO Tissues: A THYROID - Lobe (RT LOBE AND ISTHMUS) Procedures: MEENAKSHI/Padmini, Brittany/Jesse L5 Age/ Patient Sex Location Account Attending Physician Veronica Ross 34/F [place] [id number] Morales DO SPEC NUM: [id number] RECD: 09/14/24 STATUS: PHILIP SIMMONS NUM: [id number] TAYLOR: 09/14/[address] [facility] [address]: Edis Morales DO ENTERED: 09/14/[address] [facility] [address]: SPEC TYPE: Surgical DEPT: S ENTERED BY: [id number] RECV BY: [id number] ORDERED: HE/6, Gross/Micro L5 ORDERED: HE/6, Gross/Micro L5 Pathological Diagnosis Nodule, right thyroid lobe, hemithyroidectomy: Papillary thyroid carcinoma. CAP Cancer Protocol Procedure: Hemithyroidectomy Tumor focality: Single tumor focus Tumor site: Right lobe Tumor size: 1.0 cm Histologic tumor type: Classic variant Mitotic rate: Less than 3 mitoses per 2mm2 Tumor necrosis: Not identified Angioinvasion: Not identified Lymphatic invasion: Not identified Capsular invasion: Present Specimen: [id number] Received: 09/14/24 Status: PHILIP Simmons Num: [id number] Spec Type: Surgical Subm Dr: Edis Morales DO Tissues: A THYROID - Lobe (RT LOBE AND ISTHMUS) Procedures: HE/6, Gross/Micro L5 Patient: Veronica Ross R [id number] (Continued) Specimen: [id number] Received: 09/14/24 (Continued) Pathological Diagnosis (Continued) Signed (signature on file) Shawanda Mckeon MD 09/15/24 1526 Specimen: [id number] Received: 09/14/24 Status: PHILIP Simmons Num: [id number] Spec Type: Surgical Subm Dr: Edis Morales DO Tissues: A THYROID - Lobe (RT LOBE AND ISTHMUS) Procedures: HE/Padmini, Brittany/Micro L5 Patient: Veronica Ross R [id number] (Continued) Specimen: [id number] Received: 09/14/24 (Continued) Pathological Diagnosis (Continued) Extrathyroidal extension: Not identified Margin status: All margins are negative for malignancy Regional lymph nodes: None identified Number of lymph nodes with tumor: N/A Harley levels involved: N/A Size of largest metastatic deposit: N/A Extranodal extension: N/A Number of lymph nodes examined: N/A Harley levels examined: N/A Distant metastasis: N/A pTNM Clssification: pT1a, pNx Comment: This case has been internally reviewed by another pathologist with agreement. Results have been discussed with Dr. Morales. Clinical Information Right thyroid nodule Gross Description Part A is received in formalin labeled with the patients name, date of , and R lobe and isthmus is a 6 g, right thyroidectomy specimen with attached isthmus, 2.8 cm superior to inferior, 3.5 cm medial to lateral, and 1.1 cm anterior to posterior. The inferomedial aspect of the specimen displays a roughened irregular area, 1 x 0.3 cm, consistent with fragmented isthmic margin. The remaining capsular surface is corbett-pink, smooth and glistening with focal adhesions on the posterior aspect. The specimen is inked as follows: Specimen: [id number] Received: 09/14/24 Status: PHILIP Iris Num: [id number] Spec Type: Surgical Subm Dr: Edis Morales DO Tissues: A THYROID - Lobe (RT LOBE AND ISTHMUS) Procedures: HE/6, Gross/Micro L5 Patient: Veronica Ross [id number] (Continued) Specimen: [id number] Received: 09/14/24 (Continued) Gross Description (Continued) Signed (signature on file) Shawanda Mckeon MD 09/15/24 1526 Specimen: [id number] Received: 09/14/24 Status: PHILIP Simmons Num: (more content not included)... Normal [facility] Basic Metabolic Panelon 08-26 Anion gap [Moles/Vol] 12.6 mmol/L Normal 6.0-15.0 Th rachel [facility] Comment on above: Performed By: #### P TH, WENCESLAO, TSH3 #### [address] Calcium [Mass/Vol] 9.3 mg/dL Normal 8.6-10.3 [facility] Comment on above: Performed By: #### P TH, BMP, TSH3 #### [facility] [address] [place] [address] [place] Chloride [Moles/Vol] 100 mmol/L Normal 98-107 [facility] Comment on above: Performed By: #### P TH, BMP, TSH3 #### [facility] [address] [place] [id number] [place] CO2 [Moles/Vol] 30.1 mmol/L Normal 21.0-31.0 [facility] Comment on above: Performed By: #### P TH, BMP, TSH3 #### [facility] [address] [place] [address] [place] Creatinine [Mass/Vol] 1.10 mg/dL Normal 0.60-1.20 [facility] Comment on above: Performed By: #### P TH, BMP, TSH3 #### [facility] [address] [place] [address] [place] GFR/1.73 sq M.predicted MDRD (S/P/Bld) [Vol rate/Area] mL/min/{1.73_m2} Normal [facility] Comment on above: Performed By: #### P TH, BMP, TSH3 #### [facility] [address] [place] [address] [place] Glucose [Mass/Vol] 81 mg/dL Normal 70-[address] [facility] Comment on above: Result Comment: [place] Glucose Reference Range is dependent on time and content of last meal. Glucose of more than 200 mg/dL in a nonstressed, ambulatory subject supports the diagnosis of Diabetes Mellitus. ADA recommended reference range Performed By: #### P TH, BMP, TSH3 #### [facility] [address] [place] [address] [place] Potassium [Moles/Vol] 3.7 mmol/L Normal 3.5-5.1 [facility] Comment on above: Performed By: #### P TH, BMP, TSH3 #### [facility] [address] [place] [id number] [place] Sodium [Moles/Vol] 139 mmol/L Normal 136-145 [facility] Comment on above: Performed By: #### P TH, BMP, TSH3 #### [facility] [address] [place] [address] [place] Urea nitrogen [Mass/Vol] 12 mg/dL Normal 7-25 [facility] Comment on above: Performed By: #### P TH, BMP, TSH3 #### [facility] [address] [place] [id number] [place] Calcium [Mass/volume] in Ser um or PlasmaOrdered By: Edis Morales on 09-07-2024 Calcium [Mass/Vol] Calcium [Mass/volume] in Serum or Plasma 8.6-10.3 [facility] Carbon dioxide, total [Moles /volume] in Serum or PlasmaOrdered By: Edis Morales on 09-07-2024 CO2 [Moles/Vol] Carbon dioxide, total [Moles/volume] in Serum or Plasma 21.0-31.0 [facility] Chloride [Moles/volume] in S fernando or PlasmaOrdered By: Edis Morales on 09-07-2024 Chloride [Moles/Vol] Chloride [Moles/volume] in Serum or Plasma 98-107 [facility] Creatinine [Mass/volume] in Serum or PlasmaOrdered By: Edis Morales on 09-07-2024 Creatinine [Mass/Vol] Creatinine [Mass/volume] in Serum or Plasma 0.60-1.20 [facility] Glucose [Mass/volume] in Ser um or PlasmaOrdered By: Edis Morales on 09-07-2024 Glucose [Mass/Vol] Glucose [Mass/volume] in Serum or Plasma 70-100 [facility] Comment on above: ADA recommended refe rence rangeRandom Glucose Reference Range is dependent on time and content of last meal. Glucose of more than 200 mg/dL in a nonstressed, ambulatory subject supports the diagnosis of Diabetes Mellitus. No Panel InformationOrdered By: Edis Morales on 09-07-2024 Estimated GFR (CKD-EPI) > 60.0 mL/Min [facility] Creatinine Clearance (Chem N/A [facility] Parathyrin.intact [Mass/Vol] on 09-07-2024 PARATHYROID HORMONE INTACT 23 pg/mL 12 - 88 pg/mL [facility] Parathyrin.intact [Mass/volu me] in Serum or PlasmaOrdered By: Edis Morales on 09-07-2024 Parathyrin.intact [Mass/Vol] Parathyrin.intact [Mass/volume] in Serum or Plasma [facility] Parathyroid Hormone Intacton 09-07-2024 Parathyroid Hormone Intact 23.0 pg/mL Normal [facility] Comment on above: Result Comment: PERF ORMED BY: [place] [address] CR[employer] GUARD SHAWANDA MCKEON M.D. Performed By: #### P TH, BMP, TSH3 #### [facility] [address] [place] [address] [place] Potassium [Moles/volume] in Serum or PlasmaOrdered By: Edis Morales on 09-07-2024 Potassium [Moles/Vol] Potassium [Moles/volume] in Serum or Plasma 3.5-5.1 [facility] Serum or plasma anion gap de terminationOrdered By: Edis Morales on 09-07-2024 Anion gap [Moles/Vol] Serum or plasma anion gap determination 6.0-15.0 [facility] Sodium [Moles/volume] in Ser um or PlasmaOrdered By: Edis Morales on 09-07-2024 Sodium [Moles/Vol] Sodium [Moles/volume] in Serum or Plasma 136-145 [facility] Thyroid Stimulating Hormoneo n 09-07-2024 TSH Qn 3.14 m[IU]/L Normal 0.45-5.33 [facility] Comment on above: Result Comment: PERF ORMED BY: [facility] [address] [place] [address] CR[employer] SHAWANDA MCKEON M.D. Performed By: #### P TH, BMP, TSH3 #### [facility] [address] [place] [address] [place] Thyrotropin [Units/volume] i n Serum or PlasmaOrdered By: Edis Morales on 09-07-2024 TSH Qn Thyrotropin [Units/volume] in Serum or Plasma 0.45-5.33 [facility] Urea nitrogen [Mass/volume] in Serum or PlasmaOrdered By: Edis Morales on 09-07-2024 Urea nitrogen [Mass/Vol] Urea nitrogen [Mass/volume] in Serum or Plasma 7- [facility] Philip 08-03-2024 L Specimen: [id number] Received: 08/04/24 Status: PHILIP Sanchezva Num: [id number] Spec Type: Cytology Subm Dr: Felipe Brooke MD Tissues: A FNA SLIDES NOPATH (RT THY NOD) Procedures: Cyto Int and Re PAPSTN/5 Age/ Patient Sex Location Account Attending Physician Veronica Ross 33/F LABELL [id number] Felipe Brooke MD SPEC NUM: [id number] RECD: 08/04/24 STATUS: PHILIP SIMMONS NUM: [id number] TAYLOR: 08/03/24- SUBM DR: Felipe Brooke MD ENTERED: 08/04/[address] [facility] [address]: Francesca Marcos SPEC TYPE: Cytology DEPT: [facility] ENTERED BY: [id number] RECV BY: [id number] ORDERED: Cyto Int and Re, PAPSTN/5 ORDERED: Cyto Int and Re, PAPSTN/5 Pathological Diagnosis Right thyroid nodule,?fine needle aspiration:? Suspicious for follicular neoplasm. 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 [place] Category IV Clinical Information Right Thyroid Nodule Gross Description Received fixed is 30 ml very pale pink clear fluid for cytology said to have been obtained as Right Thyroid Nodule. ThinPrep preparations are prepared for microscopic examination. Also received are 4 spray fixed smeared slides for pap and a Veracyte vial stored at -20 for microscopic examination. (/fl) CPT Codes 22306 Specimen: [id number] Received: 08/04/24 Status: PHILIP Simmons Num: [id number] Spec Type: Cytology Subm Dr: Felipe Brooke MD Tissues: A FNA SLIDES NOPATH (RT THY NOD) Procedures: Cyto Int and Re, PAPSTN/5 Patient: Veronica Ross [id number] (Continued) Signed (signature on file) Shawanda Mckeon MD 08/05/24 1754 Normal [facility] XR hand RT min 3V*on 023 XR hand RT min 3V* [facility] Other XR hand RT min 3V* [facility] [place] Other XR hand RT min 3V* [address] [place] [address] [employer] Other XR hand RT min 3V* [place] [address] [employer] Other XR hand RT min 3V* XRay Report [employer] Other XR hand RT min 3V* Signed [employer] Other XR hand RT min 3V* Patient: Veronica Ross MR#: [id number] [employer] Other XR hand RT min 3V* 7067 [employer] Other XR hand RT min 3V* : 1990 Acct:[id number] [employer] Other XR hand RT min 3V* Age/Sex: 32 / F ADM Date: 11/13/22 [employer] Other XR hand RT min 3V* Loc: [facility]: [facility] [employer] Other XR hand RT min 3V* Attending Dr: Bonnie Jeffrey MD [employer] Other XR hand RT min 3V* Copies to: Bonnie Jeffrey MD [employer] Other XR hand RT min 3V* Ordering Provider: Bonnie Jeffrey MD [employer] Other XR hand RT min 3V* Date of Service: 11/13/22 [employer] Other XR hand RT min 3V* XR/XR hand RT min 3V*: Crushing injury of right thumb, subsequent [employer] Other XR hand RT min 3V* encounter [employer] Other XR hand RT min 3V* XR hand RT min 3V* 11/13/2022 3:49 PM [employer] Other XR hand RT min 3V* SIGNS AND SYMPTOMS: Status post incision and debridement of open fracture of right thumb, follow-up [employer] Other XR hand RT min 3V* PROTOCOL: Frontal, lateral, and oblique radiographs of the right hand [employer] Other XR hand RT min 3V* COMPARISON: 09/25/2022 [employer] Other XR hand RT min 3V* FINDINGS: [employer] Other XR hand RT min 3V* Healing/healed fracture of the distal phalanx of the right thumb. There is no change in alignment. [employer] Other XR hand RT min 3V* The joint spaces are preserved. No significant soft tissue swelling. [employer] Other XR hand RT min 3V* XR/XR hand RT min 3V* [employer] [employer] Other XR hand RT min 3V* IMPRESSION: [employer] Other XR hand RT min 3V* Impression dictated by: Kalpesh Murry M.D.11/13/2022 5:23 PM [employer] Other XR hand RT min 3V* Dictation Location: [place] [address] [employer] Other XR hand RT min 3V* Transcribed By: SHAY 11/13/22 [facility] [employer] Other XR hand RT min 3V* Dictated By: Kalpesh Murry II, MD 11/13/22 [facility] [employer] Other XR hand RT min 3V* Signed By: [employer] Other XR hand RT min 3V* 11/13/[address] [place] [address] [employer] Other PROF CHEM 8 (BAS METB)on Anion gap [Moles/Vol] 11.0 mmol/L Normal [facility] Comment on above: Performed By: #### B MP #### [facility] [address] [address] [address] Shemar Armas Calcium [Mass/Vol] 8.8 mg/dL Normal 8.5-10.1 [facility] Comment on above: Performed By: #### B MP #### [facility] [address] [address] [address] Shemar Armas Chloride [Moles/Vol] 100 mmol/L Normal 98-107 [facility] Comment on above: Performed By: #### B MP #### [facility] [address] [address] [address] Shemar Armsa CO2 [Moles/Vol] 31.5 mmol/L Normal 21.0-32.0 [facility] Comment on above: Performed By: #### B MP #### [facility] [address] [address] [address] Shemar Armas Creatinine [Mass/Vol] 1.18 mg/dL Critically high 0.55-1.02 [facility] Comment on above: Performed By: #### B MP #### [facility] [address] [address] [address] Shemar Armas EGFR-AF [place] >60 Normal >=60 [facility] Comment on above: Performed By: #### B MP #### [facility] [address] [address] [address] Shemar Armas EGFR-NON AF [place] 53 mL/min/1.73m2 Critically low >=60 [facility] Comment on above: Performed By: #### B MP #### [facility] [address] [address] [address] Shemar Armas Glucose [Mass/Vol] 89 mg/dL Normal 74-106 [facility] Comment on above: Performed By: #### B MP #### [facility] [address] [address] [address] Shemar Armas Potassium [Moles/Vol] 3.5 mmol/L Normal 3.5-5.1 [facility] Comment on above: Performed By: #### B MP #### [facility] [address] [address] [address] Shemar Armas Sodium [Moles/Vol] 139 mmol/L Normal 136-145 [facility] Comment on above: Performed By: #### B MP #### [facility] [address] [address] [address] Shemar Armas Urea nitrogen [Mass/Vol] 11.0 mg/dL Normal 7.0-18.0 [facility] Comment on above: Performed By: #### B MP #### [facility] [address] [address] [address] Shemar Armas Urea nitrogen/Creatinine [Mass ratio] 9.3 mg/mg Normal [facility] Comment on above: Performed By: #### B MP #### [facility] [address] [address] [address] Shemar Armas HCG ( test) IAjalyn benjamin Ql (U)Ordered By: THOM DUONG on 09-28-2022 HCG ( test) Ql (U) Negative [facility] Albumin [Mass/volume] in Ser um or PlasmaOrdered By: Bonnie Jeffrey on 09-26-2022 Albumin [Mass/Vol] 4.0 g/dL 3.2-5.5 [facility] Basophils Auto (Bld) [#/Vol] Ordered By: Bonnie Jeffrey on 09-26-2022 Basophils (Bld) [#/Vol] 0.1 10*3/uL 0.0-0.2 [facility] Basophils/100 WBC Auto (Bld) Ordered By: Bonnie Jeffrey on 09-26-2022 Basophils/100 WBC (Bld) 1.2 % . F [facility] Creatinine and Glomerular fi ltration rate.predicted panel (S/P/Bld)Ordered By: Bonnie Jeffrey on 09-26-2022 Creatinine [Mass/Vol] 1.82 mg/dL 0.44-1.03 [facility] Eosinophils Auto (Bld) [#/Vo l]Ordered By: Bonnie Jeffrey on 09-26-2022 Eosinophils (Bld) [#/Vol] 0.1 10*3/uL 0.0-0.45 [facility] Eosinophils/100 WBC Auto (Bl d)Ordered By: Bonnie Jeffrey on 09-26-2022 Eosinophils/100 WBC (Bld) 0.9 % . [facility] Erythrocyte distribution wid th Auto (RBC) [Ratio]Ordered By: Bonnie Jeffrey on 09-26-2022 Erythrocyte distribution width (RBC) [Ratio] 13.6 % 11.9-15.3 [facility] Estimated glomerular filtrat ion rate (GFR) non- AmericanOrdered By: Bonnie Jeffrey on 09-26-2022 GFR/1.73 sq M.predicted among non-blacks MDRD (S/P/Bld) [Vol rate/Area] 32 mL/Min [facility] Globulin Calc (S) [Mass/Vol] Ordered By: Bonnie Jeffrey on 09-26-2022 Globulin (S) [Mass/Vol] 2.8 g/dL F [facility] Hematocrit Auto (Bld) [Volum e fraction]Ordered By: Bonnie Jeffrey on 09-26-2022 Hematocrit (Bld) [Volume fraction] 40.2 % 34.0-46.4 [facility] Hemoglobin [Mass/volume] in BloodOrdered By: Bonnie Jeffrey on 09-26-2022 Hemoglobin (Bld) [Mass/Vol] 13.3 g/dL 11.8-15.4 [facility] Leukocytes [#/volume] correc franco for nucleated erythrocytes in Blood by Automated counOrdered By: Bonnei Jeffrey on 09-26-2022 WBC corrected for nucl RBC Auto (Bld) [#/Vol] 9.4 10*3/uL 3.8-11.6 [facility] Lymphocytes Auto (Bld) [#/Vo l]Ordered By: Bonnie Jeffrey on 09-26-2022 Lymphocytes (Bld) [#/Vol] 1.7 10*3/uL 1.00-4.8 [facility] Lymphocytes/100 WBC Auto (Bl d)Ordered By: Bonnie Jeffrey on 09-26-2022 Lymphocytes/100 WBC (Bld) 18.1 % . [facility] MCH Auto (RBC) [Entitic mass ]Ordered By: Bonnie Jeffrey on 09-26-2022 MCH (RBC) [Entitic mass] 28.8 pg 24.7-34.3 [facility] MCHC Auto (RBC) [Mass/Vol]Or dered By: Bonnie Jeffrey on 09-26-2022 MCHC (RBC) [Mass/Vol] 33.0 g/dL 32.0-35.0 [facility] MCV Auto (RBC) [Entitic vol] Ordered By: Bonnie Jeffrey on 09-26-2022 MCV (RBC) [Entitic vol] 87.1 fL 80-100 F [facility] Monocytes Auto (Bld) [#/Vol] Ordered By: Bonnie Jeffrey on 09-26-2022 Monocytes (Bld) [#/Vol] 0.5 10*3/uL 0.0-0.8 [facility] Monocytes/100 WBC Auto (Bld) Ordered By: Bonnie Jeffrey on 09-26-2022 Monocytes/100 WBC (Bld) 5.8 % . F [facility] Neutrophils Auto (Bld) [#/Vo l]Ordered By: Bonnie Jeffrey on 09-26-2022 Neutrophils (Bld) [#/Vol] 7.0 10*3/uL 1.8-7.7 [facility] Neutrophils/100 WBC Auto (Bl d)Ordered By: Bonnie Jeffrey on 09-26-2022 Neutrophils/100 WBC (Bld) 74.0 % . [facility] No Panel InformationOrdered By: Bonnie Jeffrey on 09-26-2022 Estimated GFR () 39 mL/Min [facility] Comment on above: GFR estimated refere nce range: According to KDOQI guidelines, <60 ml/min/1.73m2 is sufficient to diagnose a patient with chronic kidney disease. Pharmacy Creatinine Clearance (Chem N/A [facility] Nucleated erythrocytes [Pres ence] in Blood by Automated countOrdered By: Bonnie Jeffrey on 09-26-2022 Nucleated RBC Auto Ql (Bld) 0.0 /100{WBC} 0-0.5 [facility] Platelet mean volume Auto (B ld) [Entitic vol]Ordered By: Bonnie Jeffrey on 09-26-2022 Platelet mean volume (Bld) [Entitic vol] 7.8 fL 6.3-10.7 [facility] Platelets Auto (Bld) [#/Vol] Ordered By: Bonnie Jeffrey on 09-26-2022 Platelets (Bld) [#/Vol] 335 10*3/uL 150-450 [facility] Protein [Mass/volume] in Ser um or PlasmaOrdered By: Bonnie Jeffrey on 09-26-2022 Protein [Mass/Vol] 6.8 g/dL 6.1-7.9 [facility] RBC Auto (Bld) [#/Vol]Ordere d By: Bonnie Jeffrey on 09-26-2022 RBC (Bld) [#/Vol] 4.62 10*6/uL 3.60-5.00 [facility] Serum or plasma alanine kamara otransferase measurement without P-5'-P (enzymatic activiOrdered By: Bonnie Jeffrey on 09-26-2022 ALT No additional P-5'-P [Catalytic activity/Vol] 19 U/L 10-60 [facility] Serum or plasma albumin/glob ulin mass ratioOrdered By: Bonnie Jeffrey on 09-26-2022 Albumin/Globulin [Mass ratio] 1.4 {ratio} [facility] Serum or plasma alkaline mona sphatase measurement (enzymatic activity/volume)Ordered By: Bonnie Jeffrey on 09-26-2022 ALP [Catalytic activity/Vol] 45 U/L 32-92 [facility] Serum or plasma anion gap de terminationOrdered By: Bonnie Jeffrey on 09-26-2022 Anion gap [Moles/Vol] 13.8 mmol/L 6.0-15.0 [facility] Serum or plasma aspartate am inotransferase measurement (enzymatic activity/volume)Ordered By: Bonnie Jeffrey on 09-26-2022 AST [Catalytic activity/Vol] 17 U/L 10-42 [facility] Serum or plasma calcium sagrario urement (mass/volume)Ordered By: Bonnie Jeffrey on 09-26-2022 Calcium [Mass/Vol] 8.9 mg/dL 8.2-10.2 [facility] Serum or plasma chloride julieta surement (moles/volume)Ordered By: Bonnie Jeffrey on 09-26-2022 Chloride [Moles/Vol] 100 mmol/L 95-114 [facility] Serum or plasma glucose sagrario urement (mass/volume)Ordered By: Bonnie Jeffrey on 09-26-2022 Glucose [Mass/Vol] 86 mg/dL 70-100 [facility] Comment on above: ADA recommended refe rence rangeRandom Glucose Reference Range is dependent on time and content of last meal. Glucose of more than 200 mg/dL in a nonstressed, ambulatory subject supports the diagnosis of Diabetes Mellitus. Serum or plasma potassium me asurement (moles/volume)Ordered By: Bonnie Jeffrey on 09-26-2022 Potassium [Moles/Vol] 3.5 mmol/L 3.5-5.1 [facility] Serum or plasma sodium measu rement (moles/volume)Ordered By: Bonnie Jeffrey on 09-26-2022 Sodium [Moles/Vol] 134 mmol/L 136-146 [facility] Serum or plasma total biliru bin measurement (mass/volume)Ordered By: Bonnie Jeffrey on 09-26-2022 Bilirubin [Mass/Vol] 0.5 mg/dL 0.3-1.2 [facility] Serum or plasma total carbon dioxide measurement (moles/volume)Ordered By: Bonnie Jeffrey on 09-26-2022 CO2 [Moles/Vol] 23.7 mmol/L 22.0-30.0 [facility] Serum or plasma urea nitroge n measurement (mass/volume)Ordered By: Bonnie Jeffrey on 09-26-2022 Urea nitrogen [Mass/Vol] 25 mg/dL 9- [facility] WBC Auto (Bld) [#/Vol]Ordere d By: Bonnie Jeffrey on 09-26-2022 WBC (Bld) [#/Vol] 9.4 10*3/uL 3.8-11.6 [facility] Operative Reporton Operative Report [id number] #1.00CD:127 Normal [facility] Pathology Noteon 09-14-2022 Pathology Note [id number]#1.00CD:127 Normal [facility] PREG HCG QUALon 09-12-2022 , QUAL Negative Normal NEGATIVE [facility] Comment on above: Performed By: #### P REG #### [facility] [address] [address] [address] Shemar Armas Lab Reportson 09-10-2022 Lab Reports [id number] #1.00CD:127 Normal [facility] Covid-19 PCR (CVDTBH)on 08-26 SARS-CoV-2 (COVID-19) RNA PADMINI+probe Ql (Unsp spec) Not detected Normal NOT DETECTED [facility] Comment on above: Result Comment: This test is not yet approved or cleared by the [place] FDA. When there are no FDA-approved or cleared tests available, and other criteria are met, FDA can make tests available under an emergency access mechanism called an Emergency Use Authorization (EUA). The EUA for this test is supported by the Conservation Policy Analyst of Health and Human Service's (HHS's) declaration [...] consistent with SARS-CoV-2. Performed By: #### C [facility] #### [facility] [address] [place] [address] Dr. Shemar Armas ED Note-Physicianon 08-01-20 ED Note-Physician [id number] #1.00CD:127 Normal [facility] Consent for Procedure/Surger yon 07-31-2022 Consent for Procedure/Surgery [id number] #1.00CD:127 Normal [facility] Physician Referralon 022 Physician Referral [id number] #1.00CD:127 Normal [facility] US SINGLE QUAD RT UPPERon [...] THOM ANGELA Date: 2022-07-09 17:10 Normal [facility] US KIDNEYS BLADDERon 022 US KIDNEYS BLADDER [...] THOM ANGELA Date: 2022-07-04 14:26 Normal [facility] CBC AUTO DIFFon 07-02-2022 BASO # 0.1 103/ul Normal 0.0-0.1 [facility] Comment on above: Performed By: #### C BC #### [facility] [address] [place] [address] Dr. Shemar Armas Basophils/100 WBC (Bld) 0.6 % Normal 0.2-2.0 [facility] Comment on above: Performed By: #### C BC #### [facility] [address] [place] [address] Dr. Shemar Armas EO # 0.1 103/ul Normal 0.0-0.7 [facility] Comment on above: Performed By: #### C BC #### [facility] [address] [place] [address] Dr. Shemar Armas Eosinophils/100 WBC (Bld) 0.8 % Critically low 0.9-7.0 [facility] Comment on above: Performed By: #### C BC #### [facility] [address] [place] [address] Dr. Shemar Armas Erythrocyte distribution width (RBC) [Ratio] 14.6 % Normal 11.0-15.0 [facility] Comment on above: Performed By: #### C BC #### [facility] [address] [place] [address] Dr. Shemar Armas Hematocrit (Bld) [Volume fraction] 36.4 % Normal 36.0-48.0 [facility] Comment on above: Performed By: #### C BC #### [facility] [address] [place] [address] Dr. Shemar Armas Hemoglobin (Bld) [Mass/Vol] 12.2 g/dL Normal 12.0-16.0 [facility] Comment on above: Performed By: #### C BC #### [facility] [address] [place] [address] Dr. Shemar Armas IG # 0.04 10e3/ul Critically high 0.00-0.03 [facility] Comment on above: Performed By: #### C BC #### [facility] [address] [place] [address] Dr. Shemar Armas IG % 0.3 % Normal 0.0-0.5 [facility] Comment on above: Performed By: #### C BC #### [facility] [address] [place] [address] Dr. Shemar Armas LYMPH # 2.1 103/ul Normal 1.2-3.8 [facility] Comment on above: Performed By: #### C BC #### [facility] [address] [place] [address] Dr. Shemar Armas Lymphocytes/100 WBC (Bld) 18.7 % Critically low 20.5-60.0 [facility] Comment on above: Performed By: #### C BC #### [facility] [address] [place] [address] Dr. Shemar Armas MANUAL DIFF REQ NO Normal [facility] Comment on above: Performed By: #### C BC #### [facility] [address] [address] [address] Shemar Armas MCH (RBC) [Entitic mass] 29.6 pg Normal 26.7-34.0 [facility] Comment on above: Performed By: #### C BC #### [facility] [address] [place] [address] Dr. Shemar Armas MCHC (RBC) [Mass/Vol] 33.5 g/dL Normal 29.9-35.2 [facility] Comment on above: Performed By: #### C BC #### [facility] [address] [place] [address] Dr. Shemar Armas MCV (RBC) [Entitic vol] 88.3 fL Normal 81.0-99.0 [facility] Comment on above: Performed By: #### C BC #### [facility] [address] [place] [address] Dr. Shemar Armas MONO # 0.7 103/ul Normal 0.3-0.8 [facility] Comment on above: Performed By: #### C BC #### [facility] [address] [place] [address] Dr. Shemar Armas Monocytes/100 WBC (Bld) 6.2 % Normal 1.7-12.0 [facility] Comment on above: Performed By: #### C BC #### [facility] [address] [place] [address] Dr. Shemar Armas NEUT # 8.4 103/ul Critically high 1.4-6.5 [facility] Comment on above: Performed By: #### C BC #### [facility] [address] [place] [address] Dr. Shemar Armas Neutrophils/100 WBC (Bld) 73.4 % Normal 43.0-75.0 [facility] Comment on above: Performed By: #### C BC #### [facility] [address] [place] [address] Dr. Shemar Armas Platelet mean volume (Bld) [Entitic vol] 9.2 fL Critically low 9.5-13.5 [facility] Comment on above: Performed By: #### C BC #### [facility] [address] [address] [address] Shemar Armas PLT 331 103/ul Normal 150-450 [facility] Comment on above: Performed By: #### C BC #### [facility] [address] [address] [address] Shemar Armas RBC 4.12 106/ul Critically low 4.20-5.40 [facility] Comment on above: Performed By: #### C BC #### [facility] [address] [address] [address] Shemar Armas WBC 11.4 103/ul Critically high 4.0-11.0 [facility] Comment on above: Performed By: #### C BC #### [facility] [address] [place] [address] Dr. Shemar Armas PROF CHEM 8 (BAS METB)on Anion gap [Moles/Vol] 11.5 mmol/L Normal [facility] Comment on above: Performed By: #### B MP #### [facility] [address] [place] [address] Dr. Shemar Armas Calcium [Mass/Vol] 8.9 mg/dL Normal 8.5-10.1 [facility] Comment on above: Performed By: #### B MP #### [facility] [address] [address] [address] Shemar Armas Chloride [Moles/Vol] 102 mmol/L Normal 98-107 [facility] Comment on above: Performed By: #### B MP #### [facility] [address] [place] [address] Dr. Shemar Armas CO2 [Moles/Vol] 29.6 mmol/L Normal 21.0-32.0 [facility] Comment on above: Performed By: #### B MP #### [facility] [address] [place] [address] Dr. Shemar Armas Creatinine [Mass/Vol] 1.93 mg/dL Critically high 0.55-1.02 [facility] Comment on above: Performed By: #### B MP #### [facility] [address] [address] [address] Shemar Armas EGFR-AF [place] 37 mL/min/1.73m2 Critically low >=60 [facility] Comment on above: Performed By: #### B MP #### [facility] [address] [address] [address] Shemar Armas EGFR-NON AF [place] 30 mL/min/1.73m2 Critically low >=60 [facility] Comment on above: Performed By: #### B MP #### [facility] [address] [address] [address] Shemar Armas Glucose [Mass/Vol] 93 mg/dL Normal 74-106 [facility] Comment on above: Performed By: #### B MP #### [facility] [address] [address] [address] Shemar Armas Potassium [Moles/Vol] 4.1 mmol/L Normal 3.5-5.1 [facility] Comment on above: Performed By: #### B MP #### [facility] [address] [address] [address] Shemar Armas Sodium [Moles/Vol] 139 mmol/L Normal 136-145 [facility] Comment on above: Performed By: #### B MP #### [facility] [address] [address] [address] Shemar Armas Urea nitrogen [Mass/Vol] 22.0 mg/dL Critically high 7.0-18.0 [facility] Comment on above: Performed By: #### B MP #### [facility] [address] [address] [address] Shemar Armas Urea nitrogen/Creatinine [Mass ratio] 11.4 mg/mg Normal [facility] Comment on above: Performed By: #### B MP #### [facility] [address] [address] [address] Shemar Armas BNPon 06-29-2022 Natriuretic peptide B (Bld) [Mass/Vol] 159.0 pg/mL Normal <=450.0 [facility] Comment on above: Performed By: #### B MP #### [facility] [address] [address] [address] Shemar Armas CBC AUTO DIFFon 06-29-2022 BASO # 0.1 103/ul Normal 0.0-0.1 [facility] Comment on above: Performed By: #### P REG #### [facility] [address] [address] [address] Shemar Armas Basophils/100 WBC (Bld) 0.7 % Normal 0.2-2.0 [facility] Comment on above: Performed By: #### P REG #### [facility] [address] [place] [address] Dr. Shemar Armas EO # 0.1 103/ul Normal 0.0-0.7 [facility] Comment on above: Performed By: #### P REG #### [facility] [address] [place] [address] Dr. Shemar Armas Eosinophils/100 WBC (Bld) 1.4 % Normal 0.9-7.0 [facility] Comment on above: Performed By: #### P REG #### [facility] [address] [place] [address] Dr. Shemar Armas Erythrocyte distribution width (RBC) [Ratio] 14.5 % Normal 11.0-15.0 [facility] Comment on above: Performed By: #### P REG #### [facility] [address] [place] [address] Dr. Shemar Armas Hematocrit (Bld) [Volume fraction] 35.4 % Critically low 36.0-48.0 [facility] Comment on above: Performed By: #### P REG #### [facility] [address] [place] [address] Dr. Shemar Armas Hemoglobin (Bld) [Mass/Vol] 11.9 g/dL Critically low 12.0-16.0 [facility] Comment on above: Performed By: #### P REG #### [facility] [address] [place] [address] Dr. Shemar Armas IG # 0.05 10e3/ul Critically high 0.00-0.03 [facility] Comment on above: Performed By: #### P REG #### [facility] [address] [place] [address] Dr. Shemar Armas IG % 0.5 % Normal 0.0-0.5 [facility] Comment on above: Performed By: #### P REG #### [facility] [address] [place] [address] Dr. Shemar Armas LYMPH # 1.7 103/ul Normal 1.2-3.8 [facility] Comment on above: Performed By: #### P REG #### [facility] [address] [place] [address] Dr. Shemar Armas Lymphocytes/100 WBC (Bld) 17.3 % Critically low 20.5-60.0 [facility] Comment on above: Performed By: #### P REG #### [facility] [address] [place] [address] Dr. Shemar Armas MANUAL DIFF REQ NO Normal [facility] Comment on above: Performed By: #### P REG #### [facility] [address] [place] [address] Dr. Shemar Armas MCH (RBC) [Entitic mass] 29.5 pg Normal 26.7-34.0 [facility] Comment on above: Performed By: #### P REG #### [facility] [address] [place] [address] Dr. Shemar Armas MCHC (RBC) [Mass/Vol] 33.6 g/dL Normal 29.9-35.2 [facility] Comment on above: Performed By: #### P REG #### [facility] [address] [place] [address] Dr. Shemar Armas MCV (RBC) [Entitic vol] 87.8 fL Normal 81.0-99.0 [facility] Comment on above: Performed By: #### P REG #### [facility] [address] [place] [address] Dr. Shemar Armas MONO # 0.6 103/ul Normal 0.3-0.8 [facility] Comment on above: Performed By: #### P REG #### [facility] [address] [address] [address] Shemar Armas Monocytes/100 WBC (Bld) 6.3 % Normal 1.7-12.0 [facility] Comment on above: Performed By: #### P REG #### [facility] [address] [address] [address] Shemar Armas NEUT # 7.1 103/ul Critically high 1.4-6.5 [facility] Comment on above: Performed By: #### P REG #### [facility] [address] [place] [address] Dr. Shemar Armas Neutrophils/100 WBC (Bld) 73.8 % Normal 43.0-75.0 [facility] Comment on above: Performed By: #### P REG #### [facility] [address] [place] [address] Dr. Shemar Armas Platelet mean volume (Bld) [Entitic vol] 9.4 fL Critically low 9.5-13.5 [facility] [facility] Comment on above: Performed By: #### P REG #### [facility] [address] [place] [address] Dr. Shemar Armas PLT 350 103/ul Normal 150-450 [facility] Comment on above: Performed By: #### P REG #### [facility] [address] [place] [address] Dr. Shemar Armas RBC 4.03 106/ul Critically low 4.20-5.40 [facility] Comment on above: Performed By: #### P REG #### [facility] [address] [place] [address] Dr. Shemar Armas WBC 9.6 103/ul Normal 4.0-11.0 [facility] Comment on above: Performed By: #### P REG #### [facility] [address] [place] [address] Dr. Shemar Armas BASO # 0.0 103/ul Normal 0.0-0.1 [facility] Comment on above: Performed By: #### C BC #### [facility] [address] [place] [address] Dr. Shemar Armas Basophils/100 WBC (Bld) 0.6 % Normal 0.2-2.0 [facility] Comment on above: Performed By: #### C BC #### [facility] [address] [place] [address] Dr. Shemar Armas EO # 0.1 103/ul Normal 0.0-0.7 [facility] Comment on above: Performed By: #### C BC #### [facility] [address] [place] [address] Dr. Shemar Armas Eosinophils/100 WBC (Bld) 1.2 % Normal 0.9-7.0 [facility] Comment on above: Performed By: #### C BC #### [facility] [address] [place] [address] Dr. Shemar Armas Erythrocyte distribution width (RBC) [Ratio] 14.4 % Normal 11.0-15.0 [facility] Comment on above: Performed By: #### C BC #### [facility] [address] [place] [address] Dr. Shemar Armas Hematocrit (Bld) [Volume fraction] 29.3 % Critically low 36.0-48.0 [facility] Comment on above: Performed By: #### C BC #### [facility] [address] [place] [address] Dr. Shemar Armas Hemoglobin (Bld) [Mass/Vol] 9.9 g/dL Critically low 12.0-16.0 [facility] Comment on above: Performed By: #### C BC #### [facility] [address] [place] [address] Dr. Shemar Armas IG # 0.04 10e3/ul Critically high 0.00-0.03 [facility] Comment on above: Performed By: #### C BC #### [facility] [address] [place] [address] Dr. Shemar Armas IG % 0.6 % Critically high 0.0-0.5 [facility] Comment on above: Performed By: #### C BC #### [facility] [address] [place] [address] Dr. Shemar Armas LYMPH # 1.5 103/ul Normal 1.2-3.8 [facility] Comment on above: Performed By: #### C BC #### [facility] [address] [place] [address] Dr. Shemar Armas Lymphocytes/100 WBC (Bld) 20.1 % Critically low 20.5-60.0 [facility] Comment on above: Performed By: #### C BC #### [facility] [address] [place] [address] Dr. Shemar Armas MANUAL DIFF REQ NO Normal [facility] Comment on above: Performed By: #### C BC #### [facility] [address] [place] [address] Dr. Shemar Armas MCH (RBC) [Entitic mass] 29.9 pg Normal 26.7-34.0 [facility] Comment on above: Performed By: #### C BC #### [facility] [address] [place] [address] Dr. Shemar Armas MCHC (RBC) [Mass/Vol] 33.8 g/dL Normal 29.9-35.2 [facility] Comment on above: Performed By: #### C BC #### [facility] [address] [place] [address] Dr. Shemar Armas MCV (RBC) [Entitic vol] 88.5 fL Normal 81.0-99.0 [facility] Comment on above: Performed By: #### C BC #### [facility] [address] [place] [address] Dr. Shemar Armas MONO # 0.5 103/ul Normal 0.3-0.8 [facility] Comment on above: Performed By: #### C BC #### [facility] [address] [place] [address] Dr. Shemar Armas Monocytes/100 WBC (Bld) 7.5 % Normal 1.7-12.0 [facility] Comment on above: Performed By: #### C BC #### [facility] [address] [place] [address] Dr. Shemar Armas NEUT # 5.1 103/ul Normal 1.4-6.5 [facility] Comment on above: Performed By: #### C BC #### [facility] [address] [place] [address] Dr. Shemar Armas Neutrophils/100 WBC (Bld) 70.0 % Normal 43.0-75.0 [facility] Comment on above: Performed By: #### C BC #### [facility] [address] [place] [address] Dr. Shemar Armas Platelet mean volume (Bld) [Entitic vol] 9.2 fL Critically low 9.5-13.5 [facility] Comment on above: Performed By: #### C BC #### [facility] [address] [place] [address] Dr. Shemar Armas PLT 225 103/ul Normal 150-450 [facility] Comment on above: Performed By: #### C BC #### [facility] [address] [place] [address] Dr. Shemar Armas RBC 3.31 106/ul Critically low 4.20-5.40 [facility] Comment on above: Performed By: #### C BC #### [facility] [address] [place] [address] Dr. Shemar Armas WBC 7.2 103/ul Normal 4.0-11.0 [facility] Comment on above: Performed By: #### C BC #### [facility] [address] [place] [address] Dr. Shemar Armas IRONon 06-29-2022 Iron [Mass/Vol] 110.0 ug/dL Normal 50.0-170.0 [facility] Comment on above: Performed By: #### P REG #### [facility] [address] [place] [address] Dr. Shemar Armas PROF 14(COMP METB)on Albumin [Mass/Vol] 4.0 g/dL Normal 3.4-5.0 [facility] Comment on above: Performed By: #### P REG #### [facility] [address] [place] [address] Dr. Shemar Armas Albumin/Globulin [Mass ratio] 1.1 {ratio} Normal [facility] Comment on above: Performed By: #### P REG #### [facility] [address] [place] [address] Dr. Shemar Armas ALP [Catalytic activity/Vol] 57 U/L Normal 46-116 [facility] Comment on above: Performed By: #### P REG #### [facility] [address] [place] [address] Dr. Shemar Armas ALT [Catalytic activity/Vol] 26 U/L Normal 14-59 [facility] Comment on above: Performed By: #### P REG #### [facility] [address] [place] [address] Dr. Shemar Armas Anion gap [Moles/Vol] 10.0 mmol/L Normal [facility] Comment on above: Performed By: #### P REG #### [facility] [address] [place] [address] Dr. Shemar Armas AST [Catalytic activity/Vol] 15 U/L Normal 15-37 [facility] Comment on above: Performed By: #### P REG #### [facility] [address] [place] [address] Dr. Shemar Armas Bilirubin [Mass/Vol] 0.2 mg/dL Normal 0.2-1.0 [facility] Comment on above: Performed By: #### P REG #### [facility] [address] [place] [address] Dr. Shemar Armas Calcium [Mass/Vol] 8.8 mg/dL Normal 8.5-10.1 [facility] Comment on above: Performed By: #### P REG #### [facility] [address] [place] [address] Dr. Shemar Armas Chloride [Moles/Vol] 105 mmol/L Normal 98-107 [facility] Comment on above: Performed By: #### P REG #### [facility] [address] [place] [address] Dr. Shemar Armas CO2 [Moles/Vol] 26.8 mmol/L Normal 21.0-32.0 [facility] Comment on above: Performed By: #### P REG #### [facility] [address] [address] [address] Shemar Armas Creatinine [Mass/Vol] 1.60 mg/dL Critically high 0.55-1.02 [facility] Comment on above: Performed By: #### P REG #### [facility] [address] [address] [address] Shemar Armas EGFR-AF CAP[place]DEAN 46 mL/min/1.73m2 Critically low >=60 [facility] Comment on above: Performed By: #### P REG #### [facility] [address] [address] [address] Shemar Armas EGFR-NON AF [place] 38 mL/min/1.73m2 Critically low >=60 [facility] Comment on above: Performed By: #### P REG #### [facility] [address] [address] [address] Shemar Armas Globulin (S) [Mass/Vol] 3.5 g/dL Normal [facility] Comment on above: Performed By: #### P REG #### [facility] [address] [address] [address] Shemar Armas Glucose [Mass/Vol] 98 mg/dL Normal 74-106 [facility] Comment on above: Performed By: #### P REG #### [facility] [address] [address] [address] Shemar Armas Potassium [Moles/Vol] 3.8 mmol/L Normal 3.5-5.1 [facility] Comment on above: Performed By: #### P REG #### [facility] [address] [address] [address] Shemar Armas Protein [Mass/Vol] 7.5 g/dL Normal 6.4-8.2 [facility] Comment on above: Performed By: #### P REG #### [facility] [address] [address] [address] Shemar Armas Sodium [Moles/Vol] 138 mmol/L Normal 136-145 [facility] Comment on above: Performed By: #### P REG #### [facility] [address] [address] [address] Shemar Armas Urea nitrogen [Mass/Vol] 24.0 mg/dL Critically high 7.0-18.0 [facility] Comment on above: Performed By: #### P REG #### [facility] [address] [address] [address] Shemar Armas Urea nitrogen/Creatinine [Mass ratio] 15.0 mg/mg Normal [facility] Comment on above: Performed By: #### P REG #### [facility] [address] [address] [address] Shemar Armas Albumin [Mass/Vol] 3.3 g/dL Critically low 3.4-5.0 [facility] Comment on above: Performed By: #### B MP #### [facility] [address] [address] [address] Shemar Armas Albumin/Globulin [Mass ratio] 1.1 {ratio} Normal [facility] Comment on above: Performed By: #### B MP #### [facility] [address] [address] [address] Shemar Armas ALP [Catalytic activity/Vol] 55 U/L Normal 46-116 [facility] Comment on above: Performed By: #### B MP #### [facility] [address] [address] [address] Shemar Armas ALT [Catalytic activity/Vol] 21 U/L Normal 14-59 [facility] Comment on above: Performed By: #### B MP #### [facility] [address] [address] [address] Shemar Armas Anion gap [Moles/Vol] 8.1 mmol/L Normal [facility] Comment on above: Performed By: #### B MP #### [facility] [address] [address] [address] Shemar Armas AST [Catalytic activity/Vol] 13 U/L Critically low 15-37 [facility] Comment on above: Performed By: #### B MP #### [facility] [address] [address] [address] Shemar Armas Bilirubin [Mass/Vol] 0.1 mg/dL Critically low 0.2-1.0 [facility] Comment on above: Performed By: #### B MP #### [facility] [address] [address] [address] Shemar Armas Calcium [Mass/Vol] 7.5 mg/dL Critically low 8.5-10.1 [facility] Comment on above: Performed By: #### B MP #### [facility] [address] [address] [address] Shemar Armas Chloride [Moles/Vol] 107 mmol/L Normal 98-107 [facility] Comment on above: Performed By: #### B MP #### [facility] [address] [address] [address] Shemar Armas CO2 [Moles/Vol] 24.5 mmol/L Normal 21.0-32.0 [facility] Comment on above: Performed By: #### B MP #### [facility] [address] [address] [address] Shemar Armas Creatinine [Mass/Vol] 2.03 mg/dL Critically high 0.55-1.02 [facility] Comment on above: Performed By: #### B MP #### [facility] [address] [address] [address] Shemar Armas EGFR-AF [place] 35 mL/min/1.73m2 Critically low >=60 [facility] Comment on above: Performed By: #### B MP #### [facility] [address] [address] [address] Shemar Armas EGFR-NON AF [place] 29 mL/min/1.73m2 Critically low >=60 [facility] Comment on above: Performed By: #### B MP #### [facility] [address] [address] [address] Shemar Armas Globulin (S) [Mass/Vol] 2.9 g/dL Normal [facility] Comment on above: Performed By: #### B MP #### [facility] [address] [address] [address] Shemar Armas Glucose [Mass/Vol] 111 mg/dL Critically high 74-106 [facility] Comment on above: Performed By: #### B MP #### [facility] [address] [address] [address] Shemar Armas Potassium [Moles/Vol] 3.6 mmol/L Normal 3.5-5.1 [facility] Comment on above: Performed By: #### B MP #### [facility] [address] [address] [address] Shemar Armas Protein [Mass/Vol] 6.2 g/dL Critically low 6.4-8.2 [facility] Comment on above: Performed By: #### B MP #### [facility] [address] [address] [address] Shemar Armas Sodium [Moles/Vol] 136 mmol/L Normal 136-145 [facility] Comment on above: Performed By: #### B MP #### [facility] [address] [address] [address] Shemar Armas Urea nitrogen [Mass/Vol] 28.0 mg/dL Critically high 7.0-18.0 [facility] Comment on above: Performed By: #### B MP #### [facility] [address] [address] [address] Shemar Armas Urea nitrogen/Creatinine [Mass ratio] 13.8 mg/mg Normal [facility] Comment on above: Performed By: #### B MP #### [facility] [address] [address] [address] Shemar Armas TROPONIN, HIGH SENSITIVITYon 06-29-2022 HSTROP 4.8 pg/mL Normal 4.0-51.3 [facility] Comment on above: Result Comment: CUT- OFF POINTS HAVE BEEN ESTABLISHED BASED ON THE FOURTH UNIVERSAL DEFINITIONS OF MYOCARDIAL INFARCTION. THE UPPER REFERENCE LIMIT (URL) OF TROPONIN, DEFINED THE 99TH PERCENTILE OF cTnI DISTRIBUTION IN A REFERENCE POPULATION, HAS BEEN CONFIRMED THE DECISION THRESHOLD FOR WI DIAGNOSIS. Performed By: #### B MP #### [facility] [address] [place] [address] Dr. Shemar Armas INSULINon 04-27-2022 Insulin 15.8 uIU/mL Normal 2.6-24.9 [facility] Comment on above: Performed By: #### I NSULIN #### [facility] [address] [place] [address] Dr. Shemar Armas T4, T3U, FTI LABCORPon 04-27 Free Thyroxine Index 3.1 Normal 1.2-4.9 [facility] Comment on above: Performed By: #### T HYLC #### [facility] [address] [place] [address] Dr. Shemar Armas T3 Uptake 31 % Normal 24-39 [facility] Comment on above: Performed By: #### T HYLC #### [facility] [address] [place] [address] Dr. Shemar Armas T4 [Mass/Vol] 10.1 ug/dL Normal 4.5-12.0 [facility] Comment on above: Performed By: #### T HYLC #### [facility] [address] [place] [address] Dr. Shemar Armas CBC AUTO DIFFon 04-26-2022 BASO # 0.1 103/ul Normal 0.0-0.1 [facility] Comment on above: Performed By: #### B MP #### [facility] [address] [place] [address] Dr. Shemar Armas Basophils/100 WBC (Bld) 0.7 % Normal 0.2-2.0 [facility] Comment on above: Performed By: #### B MP #### [facility] [address] [place] [address] Dr. Shemar Armas EO # 0.1 103/ul Normal 0.0-0.7 [facility] Comment on above: Performed By: #### B MP #### [facility] [address] [place] [address] Dr. Shemar Armas Eosinophils/100 WBC (Bld) 0.9 % Normal 0.9-7.0 [facility] Comment on above: Performed By: #### B MP #### [facility] [address] [place] [address] Dr. Shemar Armas Erythrocyte distribution width (RBC) [Ratio] 13.7 % Normal 11.0-15.0 [facility] Comment on above: Performed By: #### B MP #### [facility] [address] [place] [address] Dr. Shemar Armas Hematocrit (Bld) [Volume fraction] 41.8 % Normal 36.0-48.0 [facility] Comment on above: Performed By: #### B MP #### [facility] [address] [place] [address] Dr. Shemar Armas Hemoglobin (Bld) [Mass/Vol] 13.9 g/dL Normal 12.0-16.0 [facility] Comment on above: Performed By: #### B MP #### [facility] [address] [place] [address] Dr. Shemar Armas IG # 0.03 10e3/ul Normal 0.00-0.03 [facility] Comment on above: Performed By: #### B MP #### [facility] [address] [place] [address] Dr. Shemar Armas IG % 0.3 % Normal 0.0-0.5 [facility] Comment on above: Performed By: #### B MP #### [facility] [address] [place] [address] Dr. Shemar Armas LYMPH # 1.8 103/ul Normal 1.2-3.8 [facility] Comment on above: Performed By: #### B MP #### [facility] [address] [place] [address] Dr. Shemar Armas Lymphocytes/100 WBC (Bld) 21.0 % Normal 20.5-60.0 [facility] Comment on above: Performed By: #### B MP #### [facility] [address] [place] [address] Dr. Shemar Armas MANUAL DIFF REQ NO Normal [facility] Comment on above: Performed By: #### B MP #### [facility] [address] [address] [address] Shemar Armas MCH (RBC) [Entitic mass] 28.8 pg Normal 26.7-34.0 [facility] Comment on above: Performed By: #### B MP #### [facility] [address] [place] [address] Dr. Shemar Armas MCHC (RBC) [Mass/Vol] 33.3 g/dL Normal 29.9-35.2 [facility] Comment on above: Performed By: #### B MP #### [facility] [address] [place] [address] Dr. Shemar Armas MCV (RBC) [Entitic vol] 86.7 fL Normal 81.0-99.0 [facility] Comment on above: Performed By: #### B MP #### [facility] [address] [place] [address] Dr. Shemar Armas MONO # 0.7 103/ul Normal 0.3-0.8 [facility] Comment on above: Performed By: #### B MP #### [facility] [address] [place] [address] Dr. Shemar Armas Monocytes/100 WBC (Bld) 7.9 % Normal 1.7-12.0 [facility] Comment on above: Performed By: #### B MP #### [facility] [address] [place] [address] Dr. Shemar Armas NEUT # 6.0 103/ul Normal 1.4-6.5 [facility] Comment on above: Performed By: #### B MP #### [facility] [address] [place] [address] Dr. Shemar Armas Neutrophils/100 WBC (Bld) 69.2 % Normal 43.0-75.0 [facility] Comment on above: Performed By: #### B MP #### [facility] [address] [place] [address] Dr. Shemar Armas Platelet mean volume (Bld) [Entitic vol] 9.7 fL Normal 9.5-13.5 [facility] Comment on above: Performed By: #### B MP #### [facility] [address] [address] [address] Shemar Armas PLT 322 103/ul Normal 150-450 [facility] Comment on above: Performed By: #### B MP #### [facility] [address] [address] [address] Shemar Armas RBC 4.82 106/ul Normal 4.20-5.40 [facility] Comment on above: Performed By: #### B MP #### [facility] [address] [address] [address] Shemar Armas WBC 8.7 103/ul Normal 4.0-11.0 [facility] Comment on above: Performed By: #### B MP #### [facility] [address] [address] [address] Shemar Armas GLYCOHEMOGLOBIN A1Con 2021 ADA RECOMMENDATION SEE BELOW Normal [facility] Comment on above: Result Comment: ADA RECOMMENDED LIMIT 4.0 - 6.0 ADA THERAPEUTIC TARGET < 7.0 ACTION SUGGESTED > 7.0 Performed By: #### P REG #### [facility] [address] [address] [address] Shemar Armas Glucose [Mass/Vol] 108 mg/dL Normal [facility] Comment on above: Performed By: #### P REG #### [facility] [address] [address] [address] Shemar Armas HbA1c (Bld) [Mass fraction] 5.4 % Normal 4.5-6.2 [facility] Comment on above: Performed By: #### P REG #### [facility] [address] [address] [address] Shemar Armas IRONon 04-26-2022 Iron [Mass/Vol] 55.0 ug/dL Normal 50.0-170.0 [facility] Comment on above: Performed By: #### I CYNDI #### [facility] [address] [address] [address] Shemar Armas LIPID PROFILEon 04-26-2022 CHOL-HDL RATIO NORM SEE BELOW Normal [facility] Comment on above: Result Comment: 3.3 - 4.4 LOW RISK 4.4 - 7.1 AVERAGE RISK 7.1 - 11.0 MODERATE RISK >11.0 HIGH RISK Performed By: #### P REG #### [facility] [address] [address] [address] Shemar Armas Cholesterol [Mass/Vol] 205 mg/dL Critically high <=200 [facility] Comment on above: Performed By: #### P REG #### [facility] [address] [address] [address] Shemar Armas Cholesterol in HDL [Mass/Vol] 57 mg/dL Normal 40-60 [facility] Comment on above: Performed By: #### P REG #### [facility] [address] [place] [address] Dr. Shemar Armas Cholesterol in LDL [Mass/Vol] 126.8 mg/dL Normal [facility] Comment on above: Performed By: #### P REG #### [facility] [address] [place] [address] Dr. Shemar Armas Cholesterol.total/Viktoriya sterol in HDL [Mass ratio] 3.6 {ratio} Normal [facility] Comment on above: Performed By: #### P REG #### [facility] [address] [place] [address] Dr. Shemar Armas HDL NORMAL > or = 60 mg/dl - LOW CARDIOVASCULAR RISK <40 mg/dl - HIGH CARDIOVASCULAR RISK Normal [facility] Comment on above: Performed By: #### P REG #### [facility] [address] [place] [address] Dr. Shemar Armas LDL CALC NORMAL SEE BELOW Normal [facility] Comment on above: Result Comment: <100 mg/dl OPTIMAL 100 - 129 mg/dl NEAR OR ABOVE OPTIMAL 130 - 159 mg/dl BORDERLINE HIGH 160 - 189 mg/dl HIGH >190 mg/dl VERY HIGH Performed By: #### P REG #### [facility] [address] [place] [address] Dr. Shemar Armas Triglyceride [Mass/Vol] 106 mg/dL Normal <=150 [facility] Comment on above: Performed By: #### P REG #### [facility] [address] [address] [address] Shemar Armas VLDL CALC 21.2 mg/dL Normal [facility] Comment on above: Performed By: #### P REG #### [facility] [address] [address] [address] Shemar Armas PROF 14(COMP METB)on 022 Albumin [Mass/Vol] 4.3 g/dL Normal 3.4-5.0 [facility] Comment on above: Performed By: #### T SH, CMP, LIPID #### [facility] [address] [address] [address] Shemar Armas Albumin/Globulin [Mass ratio] 1.2 {ratio} Normal [facility] Comment on above: Performed By: #### T SH, CMP, LIPID #### [facility] [facility] [address] [place] [address] Dr. Shemar Armas ALP [Catalytic activity/Vol] 62 U/L Normal 46-116 [facility] Comment on above: Performed By: #### T SH, CMP, LIPID #### [facility] [address] [place] [address] Dr. Shemar Armas ALT [Catalytic activity/Vol] 34 U/L Normal 14-59 [facility] Comment on above: Performed By: #### T SH, CMP, LIPID #### [facility] [address] [place] [address] Dr. Shemar Armas Anion gap [Moles/Vol] 13.7 mmol/L Normal [facility] Comment on above: Performed By: #### T SH, CMP, LIPID #### [facility] [address] [place] [address] Dr. Shemar Armas AST [Catalytic activity/Vol] 22 U/L Normal 15-37 [facility] Comment on above: Performed By: #### T SH, CMP, LIPID #### [facility] [address] [place] [address] Dr. Shemar Armas Bilirubin [Mass/Vol] 0.3 mg/dL Normal 0.2-1.0 [facility] Comment on above: Performed By: #### T SH, CMP, LIPID #### [facility] [address] [address] [address] Shemar Armas Calcium [Mass/Vol] 9.1 mg/dL Normal 8.5-10.1 [facility] Comment on above: Performed By: #### T SH, CMP, LIPID #### [facility] [address] [address] [address] Shemar Armas Chloride [Moles/Vol] 98 mmol/L Normal 98-107 [facility] Comment on above: Performed By: #### T SH, CMP, LIPID #### [facility] [address] [place] [address] Dr. Shemar Armas CO2 [Moles/Vol] 29.9 mmol/L Normal 21.0-32.0 [facility] Comment on above: Performed By: #### T SH, CMP, LIPID #### [facility] [address] [place] [address] Dr. Shemar Armas Creatinine [Mass/Vol] 1.27 mg/dL Critically high 0.55-1.02 [facility] Comment on above: Performed By: #### T SH, CMP, LIPID #### [facility] [address] [place] [address] Dr. Shemar Armas EGFR-AF [place] 59 mL/min/1.73m2 Critically low >=60 [facility] Comment on above: Performed By: #### T SH, CMP, LIPID #### [facility] [address] [place] [address] Dr. Shemar Armas EGFR-NON AF [place] 49 mL/min/1.73m2 Critically low >=60 [facility] Comment on above: Performed By: #### T SH, CMP, LIPID #### [facility] [address] [place] [address] Dr. Shemar Armas Globulin (S) [Mass/Vol] 3.6 g/dL Normal [facility] Comment on above: Performed By: #### T SH, CMP, LIPID #### [facility] [address] [place] [address] Dr. Shemar Armas Glucose [Mass/Vol] 92 mg/dL Normal 74-106 [facility] Comment on above: Performed By: #### T SH, CMP, LIPID #### [facility] [address] [place] [address] Dr. Shemar Armas Potassium [Moles/Vol] 3.6 mmol/L Normal 3.5-5.1 [facility] Comment on above: Performed By: #### T SH, CMP, LIPID #### [facility] [address] [place] [address] Dr. Shemar Armas Protein [Mass/Vol] 7.9 g/dL Normal 6.4-8.2 [facility] Comment on above: Performed By: #### T SH, CMP, LIPID #### [facility] [address] [place] [address] Dr. Shemar Armas Sodium [Moles/Vol] 138 mmol/L Normal 136-145 [facility] Comment on above: Performed By: #### T SH, CMP, LIPID #### [facility] [address] [place] [address] Dr. Shemar Armas Urea nitrogen [Mass/Vol] 16.0 mg/dL Normal 7.0-18.0 [facility] Comment on above: Performed By: #### T SH, CMP, LIPID #### [facility] [address] [place] [address] Dr. Shemar Armas Urea nitrogen/Creatinine [Mass ratio] 12.6 mg/mg Normal [facility] Comment on above: Performed By: #### T SH, CMP, LIPID #### [facility] [address] [place] [address] Dr. Shemar Armas TSHon 04-26-2022 TSH 3.031 uIU/mL Normal 0.358-3.[address] [facility] Comment on above: Performed By: #### P REG #### [facility] [address] [place] [address] Dr. Shemar Armas Vital Signs Date Time Vital Sign Value Performing Clinician Facility 09-21-2024 13:40-0500 Body height 160 cm Edis Morales DO Work Phone: [facility] 09-21-2024 13:40-0500 Body mass index (BMI) [Ratio] 48.36 kg/m2 Edis Josephcek DO Work Phone: [facility] 09-21-2024 13:40-0500 Body weight 123.83 kg Edis Josephcek DO Work Phone: [facility] 09-01-2024 09:39-0500 Body height 160 cm Edis Josephcek DO Work Phone: [facility] 09-01-2024 09:39-0500 Body mass index (BMI) [Ratio] 48.36 kg/m2 Edis Josephcek DO Work Phone: [facility] 09-01-2024 09:39-0500 Body weight 123.83 kg Edis Josephcek DO Work Phone: [facility] 10-02-2022 16:00-0500 Body height 160.02 cm Bonnie Jeffrey Other [employer] Other 10-02-2022 16:00-0500 Body mass index (BMI) [Ratio] 42.69 kg/m2 Bonnie Jeffrey Other [employer] Other 10-02-2022 16:00-0500 Body weight 109.32 kg Bonnie Jeffrey Other [employer] Other 09-28-2022 15:55-0500 Diastolic blood pressure 60 mm[Hg] MD Felipe Brooke Work Phone: [facility] 09-28-2022 15:55-0500 Heart rate 76 /min MD Felipe Brooke Work Phone: [facility] 09-28-2022 15:55-0500 Respiratory rate 16 /min MD Felipe Brooke Work Phone: [facility] 09-28-2022 15:55-0500 SaO2% (BldA) [Mass fraction] 98 % MD Felipe Brooke Work Phone: [facility] 09-28-2022 15:55-0500 Systolic blood pressure 123 mm[Hg] MD Felipe Brooke Work Phone: [facility] 09-28-2022 14:33-0500 Body height 162.56 cm MD Felipe Brooke Work Phone: [facility] 09-28-2022 14:33-0500 Body mass index (BMI) [Ratio] 41.6 kg/m2 MD Felipe Brooke Work Phone: [facility] 09-28-2022 14:33-0500 Body weight 110 kg MD Felipe Brooke Work Phone: [facility] 09-28-2022 12:25-0500 Body temperature 98 [degF] MD Felipe Brooke Work Phone: [facility] 07-30-2022 15:29-0500 Blood Pressure Location Sanjay MENENDEZL [facility] 07-30-2022 15:29-0500 Diastolic blood pressure 83 mm[Hg] Sanjay MENENDEZL [facility] 07-30-2022 15:29-0500 Heart rate 75 /min Sanjay NILL [facility] 07-30-2022 15:29-0500 Respiratory rate 16 /min Sanjay MENENDEZL [facility] 07-30-2022 15:29-0500 Systolic blood pressure 124 mm[Hg] Sanjay MENENDEZL [facility] Encounters Encounter Date Encounter Type Care Provider Facility Start: 09-21-2024 End: 09-21-2024 Bamboo flowsheet Edis Morales DO Work Phone: [facility] Start: 09-21-2024 End: 09-21-2024 Bamboo flowsheet Edis Morales DO Work Phone: [facility] [place] Start: 09-21-2024 End: 09-21-2024 Postop follow up visit related to original px Edis Morales DO Work Phone: [facility] [place] Comment on above: 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); Status post partial thyroidectomy (CMS/HCC) Start: 09-21-2024 End: 09-21-2024 ambulatory EDIS MORALES Not Available Start: 09-14-2024 End: 09-14-2024 Bamboo flowsheet Edis Morales DO Work Phone: [facility] Start: 09-14-2024 End: 09-14-2024 Bamboo flowsheet Edis Morales DO Work Phone: [facility] Start: 09-14-2024 End: 09-14-2024 ambulatory EDIS MORALES Not Available Start: 09-14-2024 End: 09-14-2024 Patient encounter procedure Edis Morales DO Work Phone: [facility] Comment on above: Thyroid mass (CMS/HC C) (Primary Dx) Start: 09-14-2024 End: 09-14-2024 ambulatory Felipe Brooke Facility:[facility] Start: 09-07-2024 End: 09-07-2024 External Result Encounter Edis Morales DO Work Phone: [facility] Unsolicited Start: 09-07-2024 End: 09-07-2024 External Result Encounter Edis Morales DO Work Phone: [facility] Unsolicited Start: 09-07-2024 End: 09-07-2024 Patient encounter procedure Felipe Brooke MD Work Phone: [facility] Work Phone: Start: 09-07-2024 End: 09-07-2024 ambulatory Felipe Brooke MD Work Phone: [facility] Work Phone: Start: 09-07-2024 Encounter for preprocedural laboratory examination Edis Josephjames [facility] Start: 09-01-2024 End: 09-01-2024 Bamboo flowsheet Edis Morales DO Work Phone: [facility] [place] Start: 09-01-2024 End: 09-01-2024 Bamboo flowsheet Edis Morales DO Work Phone: [facility] Start: 09-01-2024 End: 09-01-2024 Office outpatient new 60 minutes Edis Josephstevenmeghan DO Work Phone: [facility] [place] Comment on above: Thyroid nodule (CMS/ HCC) Start: 09-01-2024 End: 09-01-2024 ambulatory EDIS MORALES Not Available Start: 08-03-2024 End: 08-03-2024 ambulatory Felipe Brooke Facility:[facility] Start: 08-03-2024 End: 08-03-2024 Departed Referred Felipe Brooke MD Work Phone: [facility] Start: 06-12-2023 End: 06-12-2023 ambulatory Bonnie Calvey Other [employer] Other Start: 06-12-2023 Office outpatient vi sit 15 minutes Bonnie Calvey [facility] Start: 03-20-2023 End: 03-20-2023 ambulatory Bonnie Calvey Other [employer] Other Start: 03-20-2023 Office outpatient vi sit 15 minutes Bonnie Calvey [facility] Start: 01-24-2023 End: 01-24-2023 ambulatory Bonnie Calvey Other [employer] Other Start: 01-24-2023 Office outpatient vi sit 15 minutes Bonnie Calvey [facility] Start: 11-13-2022 End: 11-13-2022 Patient encounter procedure MD Felipe Brooke Work Phone: [facility] Start: 11-13-2022 End: 11-13-2022 ambulatory MD Felipe Brooke Work Phone: [facility] Work Phone: Start: 11-13-2022 Postop follow up vis it related to original px Bonnie Calvey [facility] Start: 10-23-2022 End: 10-23-2022 ambulatory Bonnie Calvey Other [employer] Other Start: 10-23-2022 Postop follow up vis it related to original px Bonnie Calvey [facility] Start: 10-10-2022 End: 10-11-[address] FELIPE BROOKE . Facility: Start: 10-09-2022 End: 10-09-2022 ambulatory Bonnie Calvey Other [employer] Other Start: 10-09-2022 Postop follow up vis it related to original px Bonnie Calvey [facility] Start: 10-02-2022 End: 10-02-2022 ambulatory Bonnie Calvey Other [employer] Other Start: 10-02-2022 Postop follow up vis it related to original px Bonnie Calvey [facility] Start: 10-02-2022 Telephone encounter Bonnie Calvey [facility] Start: 09-28-2022 End: 09-28-2022 Admission to same day surgery center MD Felipe Brooke Work Phone: [facility] [place] Start: 09-26-2022 End: 09-26-2022 ambulatory MD Felipe Brooke Work Phone: [facility] Work Phone: Start: 09-26-2022 End: 09-26-2022 Patient encounter procedure MD Felipe Brooke Work Phone: [facility] Work Phone: Start: 09-25-2022 End: 09-25-[address] FELIPE BROOKE . Facility:[facility] Start: 09-21-2022 ambulatory Sanjay ZUÑIGA Facility :[facility] Start: 09-14-2022 Encounter for preprocedural laboratory examination DR SANJAY ZUÑIGA . [facility] Start: 09-12-2022 End: 09-13-2022 ambulatory Sanjay ZUÑIGA Facility:CD:[id number] Start: 09-11-2022 End: 10-06-[address] FELIPE BROOKE . Facility:[facility] Start: 09-07-2022 End: 09-08-[address] FELIPE BROOKE . Facility:[facility] Start: 09-07-2022 End: 09-08-2022 Encounter for preprocedural laboratory examination DR FELIPE BROOKE . Facility: Start: 07-30-2022 End: 07-31-2022 ambulatory Felipe Brooke PROVIDER Facility:[facility] Start: 07-30-2022 End: 07-30-2022 Patient encounter procedure Sanjay ZUÑIGA [facility] [place] Start: 07-10-2022 ambulatory Felipe Brooke PROVIDER Facility:[facility] Start: 07-09-2022 End: 07-10-[address] FELIPE BROOKE . Facility:[facility] Start: 07-04-2022 End: 07-05-[address] FELIPE BROOKE . Facility:[facility] Start: 07-02-2022 End: 07-03-[address] FELIPE BROOKE . Facility:[facility] Start: 06-29-2022 End: 06-30-[address] FELIPE BROOKE . Facility:[facility] Start: 06-28-2022 End: 06-29-[address] SILVIA LEAVITT . Facility:[facility] Start: 04-27-2022 Encounter for genera l adult medical examination without abnormal findings DR FELIPE BROOKE . [facility] Start: 04-26-2022 End: 04-27-[address] FELIPE BROOKE . Facility: Start: 04-26-2022 End: 04-27-2022 Encounter for general adult medical examination without abnormal findings DR FELIPE BROOKE . Facility: Start: 02-15-2022 End: 03-21-[address] FELIPE BROOKE . Facility: Procedures Date Procedure Procedure Detail Performing Clinician Start: 09-07-2024 Assay of parathormone B carli Morales DO Work Phone: Start: 11-13-2022 Plain X-ray of right hand MD Felipe Brooke Work Phone: Start: 09-28-2022 Incision and drainag e of lower extremity MD Felipe Brooke Work Phone: Start: 08-12-2014 tarsal tunnel releas e, right. percutaneous plantar fasciotomy via the Tenex device, ultrasound device Sanjay ZUÑIGA Extraction of wisdom tooth M ichael NILL PILONIDAL CYST EXCISION Messi ael NILL TARSAL TUNNEL RELEASE 1 Messi ael NILL Comment on above: LEFT Tonsillectomy Sanjay SOL Plan of Treatment Date Care Activity Detail Author Start: 10-26-2024 End: 10-26-2024 Patient encounter procedure 10/26/2024 1:15 PM EST Office Visit [facility] [place] [address] [place] [phone] Edis Morales DO [address] [place] [address] [facility] Start: 10-19-2024 End: 09-21-2025 Thyroglobulin Thyroglobulin Lab Routine Status post partial thyroidectomy ([facility]) Expected: 10/19/2024 (Approximate), Expires: 09/21/2025 [facility] Comment on above: Expected: 10/19/2024 (Approximate), Expires: 09/21/2025 Start: 10-19-2024 End: 09-21-2025 Thyrotropin [Units/volume] in Serum or Plasma [facility] [employer] Work Phone: Comment on above: Expected: 10/19/2024 (Approximate), Expires: 09/21/2025 Start: 10-19-2024 End: 09-21-2025 Triiodothyronine (T3) [Mass/volume] in Serum or Plasma T3 Lab Routine Status post partial thyroidectomy (CMS/HCC) Expected: 10/19/2024 (Approximate), Expires: 09/21/2025 [facility] Comment on above: Expected: 10/19/2024 (Approximate), Expires: 09/21/2025 Start: 09-21-2024 End: 09-21-2024 Patient encounter procedure [facility] Comment on above: Arrived Start: 09-01-2024 End: 09-01-2025 Calcium [Mass/volume] in Serum or Plasma Calcium Lab Routine Thyroid nodule (CMS/HCC) Expected: 09/01/2024 (Approximate), Expires: 09/01/2025 [facility] Comment on above: Expected: 09/01/2024 (Approximate), Expires: 09/01/2025 Start: 09-01-2024 End: 09-01-2025 Parathyrin.intact [Mass/volume] in Serum or Plasma PTH, intact Lab Routine Thyroid nodule (CMS/HCC) Expected: 09/01/2024 (Approximate), Expires: 09/01/2025 [facility] Work Phone: Comment on above: Expected: 09/01/2024 (Approximate), Expires: 09/01/2025 Start: 09-01-2024 End: 09-01-2025 Thyrotropin [Units/volume] in Serum or Plasma TSH Lab Routine Thyroid nodule (CMS/HCC) Expected: 09/01/2024 (Approximate), Expires: 09/01/2025 [facility] Comment on above: Expected: 09/01/2024 (Approximate), Expires: 09/01/2025 Start: 09-01-2024 End: 09-01-2024 Patient encounter procedure 09/01/2024 9:45 AM EST Office Visit [facility] [place] [address] [place] [phone] Edis Morales, DO [address] [place] [place] [address] Arrived [facility] Comment on above: Arrived Start: 09-28-2022 [facility] Start: 09-28-2022 [facility] Basic metabolic 1998 panel - Serum or Plasma Basic metabolic panel Lab Routine 09/07/2024 11:55 AM EST [facility] Work Phone: Patient referral [facility] Work Phone: Immunizations Immunization Date Immunization Notes Care Provider Fa [facility] 05-27-2024 Seasonal, trivalent, recombinant, injectable influenza vaccine, preservative free Edis Morales DO Work Phone: [facility] 05-05-2021 influenza virus vaccine, unspecified formulation Edis Morales DO Work Phone: [facility] 04-28-2020 influenza, injectable, quadrivalent, preservative free Edis Morales DO Work Phone: [facility] NEGATED: Highlighted row has not occurred!07-30-2022 influenza virus vaccine, unspecified formulation Sanjay ZUÑIGA [facility] [place] Payers Date Payer Category Payer Self-pay 2022 Private Health Insurance [employer] [id number] 2022 Unknown [id number] 1990 Unknown [id number] 2.16.840.1.281137.3.579.2. 727 1990 Unknown [id number] 2.16.840.1.519945.3.579.2. 727 1990 Unknown [id number] 2.16.840.1.093074.3.579.2. 727 1990 Unknown [id number] 2.16.840.1.735759.3.579.2. 727 1990 Unknown [id number] 2.16.840.1.776990.3.579.2. 727 1990 Unknown [id number] 2.16.840.1.280093.3.579.2. 593 1990 Unknown [id number] 2.16.840.1.997607.3.579.2. 593 1990 Unknown [id number] 2.16.840.1.959292.3.579.2. 593 1990 Unknown [id number] 2.16.840.1.482038.3.579.2. 593 1990 Unknown [id number] 2.16.840.1.280492.3.579.2. 593 1990 Unknown [id number] 2.16.840.1.485844.3.579.2. 593 1990 Unknown [id number] 2.16.840.1.372755.3.579.2. 593 1990 Unknown [id number] 2.16.840.1.521926.3.579.2. 593 1990 Unknown [id number] 2.16.840.1.308917.3.579.2. 593 1990 Unknown [id number] 2.16.840.1.802378.3.579.2. 593 1990 Unknown [id number] 2.16.840.1.560286.3.579.2. 593 1990 Unknown [id number] 2.16.840.1.860073.3.579.2. 593 1990 Unknown [id number] 2.16.840.1.120598.3.579.2. 1259 1990 Unknown [id number] 2.16.840.1.035377.3.579.2. 1259 1990 Unknown [id number] 2.16.840.1.284015.3.579.2. 1259 1959 Unknown [id number] Unknown [id number] 2.16.840.1.115302.3.579.2. 531 Unknown [id number] 2.16.840.1.197933.3.579.2. 531 Unknown [id number] 2.16.840.1.782064.3.579.2. 531 Social History Date Type Detail Facility Start: 07-30-2022 End: 09-01-2024 Tobacco smoking status Never smoked tobacco (finding) [facility] Tobacco smoking status Never [facility] Start: 09-01-2024 End: 09-21-2024 Sex Assigned At Female [facility] Start: 1990 Sex Assigned At Female [facility] Start: 09-01-2024 Tobacco use and exposure Smokeless tobacco non-user [facility] Start: 09-01-2024 End: 09-21-2024 Alcoholic beverage intake Ex-drinker (finding) [facility] Start: 09-01-2024 End: 09-21-2024 History of Social function [facility] Start: 2024 Gender identity Identifies as female gender (finding) [facility] Tobacco smoking stat us NHIS Tobacco smoking consumption unknown [facility] Start: 09-08-2024 Sex Female (finding) [facility] Goals Date Patient Goal Desired Activity /State Functional Status Date Assessment Result Facility 07-30-2022 Functional Status N/A [facility] [place] Clinical Notes 08-20-2022 to 09-21-2024 Edis Morales DO - 09/21/2024 1:45 PM Zechariah Morales, - 09/14/2024 9:00 AM Myles Spann MA - 09/01/2024 9:45 AM Zechariah Morales, - 09/01/2024 9:45 AM EST Note Date & Type Note Facility 09-21-2024 History of Present illness Narrative Formatting of this note might be differe nt from the original. HPI Patient presents today 1 week postop right hemithyroidectomy. 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 Clinically T1. Made the patient aware. She is doing fine. Relevant postoperative physical examination Neck incision intact, no evidence of hematoma or seroma, voice is normal. Assessment/plan Veronica was seen today for post-op. Diagnoses and all orders for this visit: Malignant neoplasm of thyroid gland (CMS/HCC) (Primary) Comments: I will see the patient back in 1 month with T3, T4, TSH and thyroglobulin. She will need surveillance thereafter. Status post partial thyroidectomy (CMS/HCC) Comments: Patient does not need completion thyroidectomy for this small well contained tumor. Orders: - TSH; Future - T3; Future - T4; Future - Thyroglobulin; Future - TSH - T3 - T4 - Thyroglobulin documented in this encounter [facility] 09-14-2024 History of Present illness Narrative Formatting of this note might be differe nt from the original. mmm documented in this encounter [facility] 09-01-2024 History of Present illness Narrative Formatting of this note might be differe nt from the original. Work note Allergies as of 09/01/2024 - Reviewed 09/01/2024 Allergen Reaction Noted Morphine 08/29/2024 Silver 08/29/2024 Past Medical History: Diagnosis Date BMI 40.0-44.9[place] 08/29/2024 Cervical radiculopathy 08/29/2024 History of pilonidal cyst 08/29/2024 HTN ([place]ension[place] 08/29/2024 Hypercholesteremia [place] 08/29/2024 Insomnia 08/29/2024 Migraines [place] 08/29/2024 Morbid obesity [place] 08/29/2024 Orthostatic hypotension 08/29/2024 Current Outpatient Medications: [...] [facility]. Molecular testing shows the molecular [...] all orders for this visit: Thyroid nodule (CMS/HCC) Comments: Given the above, this almost likely [...] consented to proceed. documented in this encounter [facility] 06-12-2023 Evaluation note Encounter Date Diagnosis [...] Other specified postprocedural states (ICD-10 - Z98.890) [employer] Other 07-26-2023 Evaluation note* Encounter Date Diagnosis Assessment Notes Treatment Notes Treatment Clinical Notes Feb, Crushing injury of right thumb, subsequent encounter (ICD-10 - S67.01XD) Patient instructed to keep cuticle moisturized and pushed back. Activity as tolerated Feb, Injury of nail bed o f finger of right hand, subsequent encounter (ICD-10 - S69.91XD) Feb, Other specified postprocedural states (ICD-10 - Z98.890) [employer] Other 06-01-2023 Evaluation note* Encounter Date Diagnosis [...] Other specified postprocedural states (ICD-10 - Z98.890) [employer] Other 03-21-2023 Evaluation note* Encounter Date Diagnosis [...] Other specified postprocedural states (ICD-10 - Z98.890) [employer] Other 02-28-2023 Evaluation note* Encounter Date Diagnosis Assessment Notes Treatment Notes Treatment Clinical Notes Sep, Crushing injury of right thumb, initial encounter (ICD-10 - S67.01XA) Patient instructed on the use of moisturizer for the nailbed. Return to work note given Sep, Injury of nail bed of right thumb, initial encounter (ICD-10 - S69.91XA) [employer] Other 02-14-2023 Evaluation note* Encounter Date Diagnosis Assessment Notes Treatment Notes Treatment Clinical Notes Sep, Crushing injury of right thumb, initial encounter (ICD-10 - S67.01XA) Patient instructed to continue with current wound care and use of stax splint. Continue off work Sep, Injury of nail bed of right thumb, initial encounter (ICD-10 - S69.91XA) [employer] Other 02-07-2023 Evaluation note* Encounter Date Diagnosis Assessment Notes Treatment Notes Treatment Clinical Notes Sep, Crushing injury of right thumb, initial encounter (ICD-10 - S67.01XA) Patient instructed to continue daily soaking. Rx given for Zofran due to vomitting from narcotics Sep, Injury of nail bed of right thumb, initial encounter (ICD-10 - S69.91XA) [employer] Other 01-31-2023 NotePROCEDURE: XR HAND RT MIN [...] Electronically authenticated by: MYAH LEAL Date: 2022-09-25 07:51[facility]01-18-2023 NoteOPERATIVE NOTE OPERATION DATE: 09/12/2022 PREOPERATIVE [...] in good condition. CC: Patient's family physicianThe [facility] [id number] NoteChief Complaint consultation for RUQ pain HPI Staff 31 year old female presents on consultation from Dr. Brooke for epigastric pain. Reports several week history of epigastric pain and heartburn. Placed on Pantoprazole BID with improvement in symptoms. Denies nausea or vomiting. Reports several week history of daily loose stools. RUQ US completed 11/14with cholelithiasis. History of Present Illness 31 yo [...] morphine (Chest pain) [employer] (more content not included)...[facility] HospitalComment on above: Result Comment: Electronically Signed By: SOL ESPINOZA, Sanjay Paredes\Date and Time Signed: 08/20/22 10:27 ESTEvaluation + Plan note No data available for this section [facility] [place] Evaluation noteNo assessment information available [facility] Work Phone: Evaluation noteNo InformationNort [place] Other Evaluation note* Diagnosis Thyroid nodule (CMS/HCC) Nontoxic uninodular goiter documented in this encounter [facility]Evaluation [facility]* Diagnosis Thyroid mass (CMS/HCC)- Primary Unspecified disorder of thyroid documented in this encounter [facility] HealthcareEvaluation note* Diagnosis Malignant neoplasm of thyroid gland (CMS/HCC)- Primary Malignant neoplasm of thyroid gland Status post partial thyroidectomy (CMS/HCC) Other postprocedural status documented in this encounter [facility] HealthcareHistory general Narrative - Reported* Type Description Date Medical History depression Medical History bradycardia Medical History tachycardia Surgical History tonsillectomy Surgical History pylenol cysts Surgical History wisdom teeth Surgical History plantar fasciitis, tarsal tunne l x 2 right foot [employer] Other History general Narrative - Reported* Type Description Date Medical History depression Medical History bradycardia Medical History tachycardia Surgical History tonsillectomy Surgical History pylenol cysts Surgical History wisdom teeth Surgical History plantar fasciitis, tarsal tunne l x 2 right foot Surgical History right thumb I & D 09/28/2022 [employer] Other Hospital Discharge instructions No data available for this section [facility] [place] Progress note No data available for this section [facility] [place] Chief Complaint and Reason for Visit Chief [...] Dates Bonnie Jeffrey MD Attending Provider Active Felipe Brooke MD Primary Care Provider Active Team Status: Active Member Role Status Dates Felipe Brooke MD Primary Care Provider Active Team Status: Inactive Member Role Status Dates Felipe Brooke MD Primary Care Provider Active Bonnie Jeffrey MD Attending Provider Active [employer] Relationship Specialty Start Date End Date Felipe Brooke MD [address] [facility] [place] [address] PCP - General Family Medicine 11/18/23 Willa Hanks DO [address] [place] [address] Referring Physician Neurology 11/18/23 Edis Morales DO [address] [place] [address] Otolaryngology 09/01/24 [employer] Relationship Specialty Start Date End Date Felipe Brooke MD [address] [place] [address] PCP - General Family Medicine 11/18/23 Willa Hanks DO [address] [place] [address] Referring Physician Neurology 11/18/23 Edis Morales, DO [address] [place] [address] Otolaryngology 09/01/24 [employer] Relationship Specialty Start Date End Date Felipe Brooke MD [address] [place] [address] PCP - General Family Medicine 11/18/23 Willa Hanks DO [address] [place] [address] Referring Physician Neurology 11/18/23 Edis Morales, [address] [place] [address] Otolaryngology 09/01/24 Team Status: Inactive Member Role Status Dates Felipe Brooke MD Primary Care Provide r, Attending Provider Active Start: August 03, 2024 End: August 03, 2024 Team Status: Inactive Member Role Status Dates Felipe Brooke MD Primary Care Provider Active Start: September 07, 2024 End: September 07, 2024 Edis Morales DO Attending Provider Active S tart: September 07, 2024 End: September 07, 2024 [employer] Relationship Specialty Start Date End Date Felipe Brooke MD [address] [place] [address] PCP - General Family Medicine 11/18/23 Willa Hanks DO [address] [place] [address] Referring Physician Neurology 11/18/23 Edis Morales DO [address] [place] [address] Otolaryngology 09/01/24 [employer] Relationship Specialty Start Date End Date Felipe Brooke MD [address] [place] [phone] PCP - General Family Medicine 11/18/23 Willa Hanks DO [address] [place] [address] Referring Physician Neurology 11/18/23 Edis Morales DO [address] [place] [address] Otolaryngology 09/01/24 [employer] Relationship Specialty Start Date End Date Felipe Brooke MD [address] [place] [phone] PCP - General Family Medicine 11/18/23 Willa Hanks DO [address] [place] [address] Referring Physician Neurology 11/18/23 Edis Morales DO [address] [place] [address] Otolaryngology 09/01/24 Goals (unrecognized section and content) Goals may be documented in a n alternate section INFORMATION SOURCE (unrecogn ized section and content) DATE CREATED AUTHOR 09/29/2022 Naldo Leyva [facility] DATE CREATED AUTHOR AUTHOR'S ORGANIZ ATION 12/01/2022 [facility] DATE CREATED AUTHOR AUTHOR'S ORGANIZ ATION 09/22/2024 [facility] DATE CREATED AUTHOR AUTHOR'S ORGANIZ ATION 10/03/2024 [facility] REASON FOR VISIT (unrecogniz ed section and content) Reason Comments Thyroid Nodule New Patient : Thyroi d nodule / FNA done Reason Comments Post-op Post op right thyroi d FOR RECORDS PERTAINING TO PATIENTS WHO ARE [...] BE BASED ON THE PRIMARY CLINICAL RECORDS. [employer] provides no warranty or guarantee of the accuracy or completeness of information in this document.
[2024-10-24 09:28] LABS: Basophils Absolute Auto 0.1 10^3/uL (0.0-0.1); Eosinophils Absolute Auto 0.1 10^3/uL (0.0-0.7); Eosinophils Percent Auto 1.6 % (0.9-7.0); Hemoglobin 12.1 g/dL (12.0-16.0); Immature Granulocytes Abs Auto 0.02 10^3/uL (0.00-0.03); Immature Granulocytes Pct Auto 0.3 % (0.0-0.5); Lymphocytes Absolute Auto 1.4 10^3/uL (1.2-3.8); Lymphocytes Percent Auto 19.9 % (20.5-60.0); Mean Corpuscular HGB Conc 31.8 g/dL (29.9-35.2); Mean Corpuscular Hemoglobin 25.9 pg (26.7-34.0); Mean Corpuscular Volume 81.4 fL (81.0-99.0); Mean Platelet Volume 9.2 fL (9.5-13.5); Monocytes Absolute Auto 0.4 10^3/uL (0.3-0.8); Monocytes Percent Auto 5.9 % (1.7-12.0); Neutrophils Absolute Auto 4.9 10^3/uL (1.4-6.5); Neutrophils Percent Auto 71.3 % (43.0-75.0); Platelet Count 348 10^3/uL (150-450); Red Blood Count 4.67 10^6/uL (4.20-5.40); Red Cell Distribution Width 14.7 % (11.0-15.0); White Blood Count 6.9 10^3/uL (4.0-11.0)
[2024-10-24 09:51] LABS: Estimated Average Glucose 111 mg/dL; Glycohemoglobin A1C 5.5 % (4.5-6.2)
[2024-10-24 10:05] LABS: Alanine Aminotransferase 22 U/L (14-59); Albumin Globulin Ratio 1.2; Albumin Level 3.8 g/dL (3.4-5.0); Alkaline Phosphatase 76 U/L (46-116); Anion Gap 12.9; Aspartate Amino Transferase 16 U/L (15-37); BUN Creatinine Ratio 11.3; Bilirubin Total 0.4 mg/dL (0.2-1.0); Carbon Dioxide 29.9 mmol/L (21.0-32.0); Chloride 102 mmol/L (98-107); Chol HDL Ratio 3.7; Cholesterol 190 mg/dL (<=200); Estimated GFR (African America 60 (>=60 mL/min/1.73m^2); Estimated GFR (Non-African Ame 50 (>=60 mL/min/1.73m^2); Free T3 2.66 pg/mL (2.18-3.98); Globulin 3.3 g/dL; Glucose 96 mg/dL (74-106); HDL Cholesterol 52 mg/dL (40-60); LDL Cholesterol Calculated 116.2 mg/dL; Potassium 3.8 mmol/L (3.5-5.1); Sodium 141 mmol/L (136-145); Thyroid Stimulating Hormone 5.061 uIU/mL (0.358-3.740); Total Protein 7.1 g/dL (6.4-8.2); Triglycerides 109 mg/dL (<=150); VLDL CHOLESTEROL 21.8 mg/dL
== END 2024-10-24 09:00 | disposition home or self-care (01) ==
PROVIDERS: PCP Family Medicine; Visit Provider Family Medicine
DX: Z00.00 Encounter for general adult medical examination without abnormal findings (principal); I10 Essential (primary) hypertension; E78.00 Pure hypercholesterolemia, unspecified; C73 Malignant neoplasm of thyroid gland
CPT/HCPCS: 36415; 80053; 80061; 82306; 83036; 83540; 84436; 84443; 84481; 85025

== ENCOUNTER 2024-11-30 15:20 | Outpatient (OUT) | payer OTHER, SELFPAY ==
--- OUTSIDE RECORDS SUMMARY | 2024-11-30 15:38 | XMS_ITS | CCD ---
Author Organization [facility] CliniSynd Care Team Providers Care Site Safety Coordinator Name Role Phone Donnell Brooke Primary Care Physician MD Bonnie Jeffrey Attending Provider [phone] MD Donnell Brooke Primary Care Provider [phone] Edwardo PROVIDERDonnell Referring Unavailabl e NILL, Sanjay Gibbons Attending Unavailable NILL, Sanjay Gibbons Attending Unavailable NILL, Sanjay Gibbons Attending Unavailable NILL, Sanjay Gibbons Attending Unavailable Hoy PROVIDERDonnell Referring Unavailabl e NILL, Sanjay Gibbons Attending Unavailable Bonnie Jeffrey Unavailable MD Bonnie Jeffrey Attending Provider MD Donnell Brooke Primary Care Provider [phone] MARTH[address] ., DR JACOBO Primary Care Unavailable HOY ., DR JACOBO Admitting Unavailable HOY ., DR JACOBO Attending Unavailable HOY ., DR JACOBO Primary Care Unavailable NILL ., DR GRACE Admitting Unavailable NILL ., DR GRACE Consulting Unavailable NILL ., DR GARCE Attending Unavailable NILL ., DR GRACE Consulting [...] Unavailable Donnell Brooke MD Primary Care Provider [phone] Willa Hanks DO Unavailable Edis Morales DO Unavailable Donnell Brooke MD Primary Care Provider [phone] Donnell Brooke MD Attending Provider Edis Morales DO Attending Provider Donnell Brooke Primary Care Unavailable MurstevenkEdis Attending Unavailable Murcek, Edis Admitting Unavailable Hoy, Donnell M Primary Care Unavailable Hoy, Donnell M Admitting Unavailable Hoy, Donnell M Attending Unavailable Hoy, Donnell M Primary Care Unavailable Murstevenk, Edis Attending Unavailable Murcek, Edis Admitting Unavailable MURCEK, EDIS W Attending Unavailable MURCEK, EDIS W Attending Unavailable HOY, DONNELL M Referring Unavailable MURCEK, EDIS Vo Attending Unavailable HOY, DONNELL M Referring Unavailable MURCEKEDIS W Attending Unavailable Allergies Allergy Classification Reported Allergen(s) Allergy Type Date of Onset Reaction(s) Facility (16 sources) Morphine; Translations: [morphine] Drug Allergy 3 Chest pain (finding) [facility] [place] (20 sources) SILVER; Translations: [SILVER] Allergy to substance 4 INFECTION, Edema, silver wound pack reversed healing, Edema, silver wound pack reversed healing [facility] Comment on above: reversed healing (11 sources) irbesartan; Translations: [irbesartan] Drug Allergy 3 Unknown Reaction [facility] Comment on above: renal failure (1 source) MORPHINE SUBSTITUTE; Translations: [MORPHINE SUBSTITUTE] Propensity to adverse reactions (disorder) [facility] Rep[facility] (1 source) Morphine Drug Allergy [facility] Medications Current Medications Medication Drug Class(es) Dates Sig (Normalized) Sig (Original) acebutolol 200 mg oral capsule (20 sources) beta-Adrenergic Ana Start: 09-26-2022 take 1 capsule by mouth in the morning acebutolol (Sectral) 200 MG capsule Take 200 mg by mouth in the morning and 200 mg before bedtime. 08/20/2024 Active Start: 07-27-2022 take 1 capsule by [facility] twice daily acebutolol 200 mg Cap 200 mg = 1 cap(s), Oral, BID, Refills(s) 0 Start Date: 07/27/22 Status: Ordered take 1 capsule by [facility] every twenty-four hours Acebutolol HCl 200 [...] DULoxetine 60 mg delayed release oral capsule (14 sources) Serotonin and Norepinephrine Reuptake Inhibitor Start: [...] 07/28/2024 Active lamoTRIgine 200 mg oral tablet (14 sources) Mood Stabilizer, Anti-epileptic Agent Start: 09-07-2024 Lamotrigine 200 mg tablet Active 300 MG PO Daily at bedtime September 07, 2024 12:00am Start: 08-03-2024 take 1 tablet by alo once daily lamoTRIgine (LaMICtal) 200 MG tablet TAKE 1 & 1/2 (ONE & ONE-HALF) TABLETS BY MOUTH ONCE DAILY 08/03/2024 Active levonorgestrel 0.291131 mg/hr intrauterine system (3 sources) Progestin, Progestin-containing Intrauterine Device Start: 09-26-2022 Levonorgestrel (Mirena) 20 mcg/24 hours (8 yrs) 52 mg Intrauterine Device Active 20 MCG INTRAUTERI Daily September 26, 2022 12:00am levothyroxine sodium 0.05 mg oral tablet (2 sources) l-Thyroxine Start: 10-26-2024 End: 12-25-2024 take 1 tablet by mouth before mealtime levothyroxine (Synthroid) 50 MCG tablet Indications: Status post partial thyroidectomy (CMS/HCC) Take 1 tablet (50 mcg) by mouth in the morning. Take before meals. 30 tablet 1 10/26/2024 12/25/2024 Active losartan potassium 25 mg oral tablet (1 [...] 07-27-2022 take 2 tablets by mo ut once daily oxaprozin 600 mg Tab 1,200 [...] chloride 20 meq extended release oral tablet (14 sources) Start: 09-07-2024 take 2 tablets by mouth once daily in the evening Potassium Chloride 20 mEq tablet extended release Active 40 MEQ PO Every evening September 07, 2024 12:00am Start: 08-20-2024 take 1 tablet by alo at mealtime potassium chloride CR (K-Tab) 20 [...] 1:00am Start: 07-27-2022 take 2 tablets by [facility] at bedtime tiZANidine 4 mg Tab 8 mg = 2 tab(s), Oral, Bedtime, Refills(s) 0 Start Date: 07/27/22 Status: Ordered take 1 capsule by [facility] every eight hours tiZANidine HCl 4 MG [...] OBST] Onset: 09-18-2022 Episodic Cancer of thyroid (4 sources) Malignant tumor of thyroid gland; Translations: [Malignant neoplasm of thyroid gland] 09-21-2024 Chronic Complications of surgical procedures or medical care (4 sources) History of subtotal thyroidectomy; Translations: [Postprocedural [...] 07-05-2022 Chronic Other aftercare (1 source) Other usp (current) drug therapy; Translations: [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] Onset: 09-18-2022 Episodic Other [...] Onset: 06-28-2022 Episodic Disorders of lipid metabolism (15 sources) Hypercholesterolemia; Translations: [Pure hypercholesterolemia, unspecified] Onset: 09-18-2022 Resolved: 08-29-2024 07-27-2022 Chronic Essential hypertension (16 sources) Hypertensive disorder; Translations: [Essential (primary) hypertension] Onset: 09-18-2022 Resolved: 08-29-2024 03-24-2013 Chronic Fluid and electrolyte disorders (4 sources) Dehydration; Translations: [DEHYDRATION] Onset: 07-04-2022 Episodic Fracture of upper limb (9 sources) Fracture of phalanx of finger; Translations: [Fracture of unspecified phalanx of unspecified finger, initial encounter for closed fracture] Onset: 09-27-2022 Resolved: 09-20-2024 09-28-2022 Episodic Comment on above: Problem List clean-u p per request of Phys. EHR Cmte Headache; including migraine (14 sources) Migraine; Translations: [Migraine, unspecified, not intractable, without status migrainosus] Onset: 08-29-2024 Resolved: 08-29-2024 07-27-2022 Chronic Neoplasms of unspecified nature or uncertain behavior (1 source) Myelodysplastic syndrome, unspecified; Translations: [MYELODYSPLASTIC SYNDROME UNS] Onset: 07-05-2022 Episodic Open wounds of extremities (8 sources) Laceration of nail bed of finger ; Translations: [Laceration without foreign body of unspecified finger with damage to nail, initial encounter] Onset: 09-20-2024 Resolved: 09-20-2024 09-28-2022 Episodic Comment on above: Problem List clean-u p per request of Phys. EHR Cmte Other circulatory disease (15 sources) Orthostatic hypotension; Translations: [Orthostatic hypotension] Onset: 06-29-2022 Resolved: 08-29-2024 07-27-2022 Episodic Other circulatory disease (5 sources) Hypotension, unspecified; Translations: [HYPOTENSION UNSPECIFIED] Onset: 07-02-2022 Episodic Other circulatory disease (3 sources) Orthostatic hypotension; Translations: [ORTHOSTATIC HYPOTENSION] Onset: 07-05-2022 Episodic Other nervous system disorders (8 sources) Pain in limb; Translations: [Other acute postprocedural pain] Onset: 09-20-2024 Resolved: 09-20-2024 09-28-2022 Episodic Comment on above: Problem List clean-u p per request of Phys. EHR Cmte Other nutritional; endocrine; and metabolic disorders (14 sources) Body mass index 40+ - severely obese; Translations: [Body mass index (BMI) 40.0-44.9, adult] Onset: 08-29-2024 Resolved: 08-29-2024 07-30-2022 Chronic Other nutritional; endocrine; and metabolic disorders (14 sources) Morbid obesity; Translations: [Morbid (severe) obesity due to excess calories] Onset: 08-29-2024 Resolved: 08-29-2024 07-27-2022 Chronic Other skin disorders (14 sources) H/O: skin disorder; Translations: [Personal history of diseases of the skin and subcutaneous tissue] Onset: 08-29-2024 Resolved: 08-29-2024 07-27-2022 Episodic Poisoning by other medications and drugs (1 source) Poisoning by other antihypertensive drugs, accidental (unintentional), initial encounter; Translations: [PSN OTH ANTIHYPERTENSIV RX ACC INIT] Onset: 07-02-2022 Episodic Residual codes; unclassified (14 sources) Insomnia; Translations: [Insomnia, unspecified] Onset: 08-29-2024 Resolved: 08-29-2024 07-27-2022 Episodic Spondylosis; intervertebral disc disorders; other back problems (18 sources) Cervical radiculopathy; Translations: [Radiculopathy, cervical region] Onset: 02-15-2022 Resolved: 08-29-2024 07-27-2022 Episodic Results Test Name Value Interpretation Reference Range Facility HCG,Urineon 09-14-2024 Beta HCG ( test) Ql (U) Negative Normal [facility] Comment on above: Result Comment: PERF ORMED BY: [place] [address] PATHOLOGIST TOURIST CAMP ATTENDANT SHAWANDA MCKEON M.D. Performed By: #### U HCG #### [address] 09-14-2024 L Specimen: [id number] Received: 09/14/24 Status: PHILIP Simmons Num: [id number] Spec Type: Surgical Subm Dr: Edis Morales DO Tissues: A THYROID - Lobe (RT LOBE AND ISTHMUS) Procedures: HE/6, Gross/Micro L5 Age/ Patient Sex Location Account Attending Physician Veronica Ross 34/F [place] [id number] Edis Morales DO SPEC NUM: [id number] RECD: 09/14/24 STATUS: PHILIP SIMMONS NUM: [id number] TAYLOR: 09/14/[address] [facility] [address]: Edis Morales DO ENTERED: 09/14/24 [facility] DR: FILIBERTO TYPE: Surgical DEPT: S ENTERED BY: [id number] RECV BY: [id number] ORDERED: HE/6, Gross/Micro L5 ORDERED: HE/6, Gross/Micro [...] invasion: Not identified Capsular invasion: Present Specimen: [id number] Received: 09/14/24 Status: PHILIP Simmons Num: [id number] Spec Type: Surgical Subm Dr: Edis Morales DO Tissues: A THYROID - Lobe (RT LOBE AND ISTHMUS) Procedures: MEENAKSHIBrittany/Jesse L5 Patient: PernellcandeVeronica [id number] (Continued) Specimen: S2 Received: 09/14/24 (Continued) Pathological Diagnosis (Continued) Signed (signature on file) Shawanda Mckeon MD 09/15/24 1526 Specimen: S2 Received: 09/14/24 Status: PHILIP Simmons Num: [id number] Spec Type: Surgical Subm Dr: Edis Morales DO Tissues: A THYROID - Lobe (RT LOBE AND ISTHMUS) Procedures: Brittany/Jesse L5 Patient: Veronica Ross [id number] (Continued) Specimen: [id number] Received: 09/14/249128 (Continued) Pathological Diagnosis (Continued) Extrathyroidal extension: Not [...] The specimen is inked as follows: Specimen: [id number] Received: 09/14/24 Status: PHILIP Simmons Num: [id number] Spec Type: Surgical Subm Dr: Edis Morales DO Tissues: A THYROID - Lobe (RT LOBE AND ISTHMUS) Procedures: HE/6, Gross/Micro L5 Patient: Veronica Ross Edwige [id number] (Continued) Specimen: S2 Received: 09/14/24 (Continued) Gross Description (Continued) Signed (signature on file) Shawanda Mckeon MD 09/15/24 1526 Specimen: S2 Received: 09/14/24 Status: PHILIP Simmons Num: (more content not included)... Normal [facility] Basic Metabolic Panelon 08-26 Anion gap [Moles/Vol] 12.6 mmol/L Normal 6.0-15.[address] [facility] Comment on above: Performed By: #### P TH, BMP, TSH3 #### [facility] [address] [place] [address] [place] Calcium [Mass/Vol] 9.3 mg/dL Normal 8.6-10.3 [facility] Comment on above: Performed By: #### P TH, BMP, TSH3 #### [facility] [address] [place] [address] [place] Chloride [Moles/Vol] 100 mmol/L Normal 98-107 [facility] Comment on above: Performed By: #### P TH, BMP, TSH3 #### [facility] [address] [place] [address] [place] CO2 [Moles/Vol] 30.1 mmol/L Normal 21.0-31.0 [facility] Comment on above: Performed By: #### P TH, BMP, TSH3 #### [facility] [address] [place] [address] [place] Creatinine [Mass/Vol] 1.10 mg/dL Normal 0.60-1.20 [facility] Comment on above: Performed By: #### P TH, BMP, TSH3 #### [facility] [address] [place] [address] [place] GFR/1.73 sq M.predicted MDRD (S/P/Bld) [Vol rate/Area] mL/min/{1.73_m2} Normal [facility] Comment on above: Performed By: #### P TH, BMP, TSH3 #### [facility] [address] [place] [id number] [place] Glucose [Mass/Vol] 81 mg/dL Normal 70-100 [facility] Comment on above: Result Comment: [place] Glucose Reference Range is dependent on time and content of last meal. Glucose of more than 200 mg/dL in a nonstressed, ambulatory subject supports the diagnosis of Diabetes Mellitus. ADA recommended reference range Performed By: #### P TH, BMP, TSH3 #### [facility] [address] [place] [id number] [place] Potassium [Moles/Vol] 3.7 mmol/L Normal 3.5-5.1 [facility] Comment on above: Performed By: #### P TH, BMP, TSH3 #### [facility] [address] [place] [id number] [place] Sodium [Moles/Vol] 139 mmol/L Normal 136-145 [facility] Comment on above: Performed By: #### P TH, BMP, TSH3 #### [facility] [address] [place] [address] [place] Urea nitrogen [Mass/Vol] 12 mg/dL Normal 7-25 [facility] Comment on above: Performed By: #### P TH, BMP, TSH3 #### [facility] [address] [place] [id number] [place] Calcium [Mass/volume] in Ser um or PlasmaOrdered By: Edis Morales on 09-07-2024 Calcium [Mass/Vol] Calcium [Mass/volume] in Serum or Plasma 8.6-10.3 [facility] Carbon dioxide, total [Moles /volume] in Serum or PlasmaOrdered By: Edis Morales on 09-07-2024 CO2 [Moles/Vol] Carbon dioxide, total [Moles/volume] in Serum or Plasma 21.0-31.0 [facility] Chloride [Moles/volume] in S fernando or PlasmaOrdered By: Edis Morales on 09-07-2024 Chloride [Moles/Vol] Chloride [Moles/volume] in Serum or Plasma 98-107 [facility] Creatinine [Mass/volume] in Serum or PlasmaOrdered By: Edis Morales on 09-07-2024 Creatinine [Mass/Vol] Creatinine [Mass/volume] in Serum or Plasma 0.60-1.20 [facility] Glucose [Mass/volume] in Ser um or PlasmaOrdered By: Edis Morales on 09-07-2024 Glucose [Mass/Vol] Glucose [Mass/volume] in Serum or Plasma 70-100 [facility] Comment on above: ADA recommended refe rence rangeRandom Glucose Reference Range is dependent on time and content of last meal. Glucose of more than 200 mg/dL in a nonstressed, ambulatory subject supports the diagnosis of Diabetes Mellitus. No Panel InformationOrdered By: Edis Morales on 09-07-2024 Estimated GFR (CKD-EPI) > 60.0 mL/Min [facility] Creatinine Clearance (Chem N/A [facility] Parathyrin.intact [Mass/Vol] on 09-07-2024 PARATHYROID HORMONE INTACT 23 pg/mL pg/mL [facility] Parathyrin.intact [Mass/volu me] in Serum or PlasmaOrdered By: Edis Morales on 09-07-2024 Parathyrin.intact [Mass/Vol] Parathyrin.intact [Mass/volume] in Serum or Plasma [facility] Parathyroid Hormone Intacton 09-07-2024 Parathyroid Hormone Intact 23.0 pg/mL Normal [facility] Comment on above: Result Comment: PERF ORMED BY: [place] [address] PATHOLOGIST TOURIST CAMP ATTENDANT SHAWANDA MCKEON M.D. Performed By: #### P TH, BMP, TSH3 #### [address] Potassium [Moles/volume] in Serum or PlasmaOrdered By: Edis Morales on 09-07-2024 Potassium [Moles/Vol] Potassium [Moles/volume] in Serum or Plasma 3.5-5.1 [facility] Serum or plasma anion gap de terminationOrdered By: Edis Morales on 09-07-2024 Anion gap [Moles/Vol] Serum or plasma anion gap determination 6.0-15.0 [facility] Sodium [Moles/volume] in Ser um or PlasmaOrdered By: Edis Morales on 09-07-2024 Sodium [Moles/Vol] Sodium [Moles/volume] in Serum or Plasma 136-145 [facility] Thyroid Stimulating Hormoneo n 09-07-2024 TSH Qn 3.14 m[IU]/L Normal 0.45-5.33 [facility] Comment on above: Result Comment: PERF ORMED BY: [facility] [address] [place] [address] PATHOLOGIST TOURIST CAMP ATTENDANT SHAWANDA MCKEON M.D. Performed By: #### P TH, BMP, TSH3 #### [facility] [address] Thyrotropin [Units/volume] i n Serum or PlasmaOrdered By: Edis Morales on 09-07-2024 TSH Qn Thyrotropin [Units/volume] in Serum or Plasma 0.45-5.33 [facility] Urea nitrogen [Mass/volume] in Serum or PlasmaOrdered By: Edis Morales on 09-07-2024 Urea nitrogen [Mass/Vol] Urea nitrogen [Mass/volume] in Serum or Plasma 7 [facility] Philip 08-03-2024 L Specimen: [id number] Received: 08/04/24 Status: PHILIP Simmons Num: [id number] Spec Type: Cytology Subm Dr: Donnell Brooke MD Tissues: A FNA SLIDES NOPATH (RT THY NOD) Procedures: Cyto Int and Re, PAPSTN/5 Age/ Patient Sex Location Account Attending Physician Veronica Ross 33/F LABELL [id number] Donnell Brooke MD SPEC NUM: [id number] RECD: 08/04/24 STATUS: PHILIP SIMMONS NUM: [id number] TAYLOR: 08/03/24 DR: Donnell Brooke MD ENTERED: 08/04/[address]: Francesca Marcos SPEC TYPE: Cytology DEPT: OSBALDO NCYT ENTERED BY: [id number] RECV BY: [id number] ORDERED: Cyto Int and Re, PAPSTN/5 ORDERED: Cyto Int and Re, PAPSTN/5 Pathological Diagnosis Right thyroid nodule,?fine needle aspiration:? Suspicious for follicular neoplasm. 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 [place] Category IV Clinical Information Right Thyroid Nodule Gross Description Received fixed is 30 ml very pale pink clear fluid for cytology said to have been obtained as Right Thyroid Nodule. ThinPrep preparations are prepared for microscopic examination. Also received are 4 spray fixed smeared slides for pap and a Veracyte vial stored at -20 for microscopic examination. (/md) CPT Codes 00720 Specimen: [id number] Received: 08/04/24-1147 Status: PHILIP Simmons Num: [id number] Spec Type: Cytology Subm Dr: Donnell Brooke MD Tissues: A FNA SLIDES NOPATH (RT THY NOD) Procedures: Cyto Int and Re, PAPSTN/5 Patient: Veronica Ross [id number] (Continued) Signed (signature on file) Shawanda Mckeon MD 08/05/24 1754 Normal [facility] XR hand RT min 3V*on 023 XR hand RT min 3V* [facility] [employer] Other XR hand RT min 3V* [facility] [employer] Other XR hand RT min 3V* [address] [facility] [employer] Other XR hand RT min 3V* [place] [address] [place] [employer] Other XR hand RT min 3V* XRay Report [employer] Other XR hand RT min 3V* Signed [employer] Other XR hand RT min 3V* Patient: Veronica Ross MR#: [id number] [employer] Other XR hand RT min 3V* 7067 [employer] Other XR hand RT min 3V* : 1990 Acct:[id number] [employer] Other XR hand RT min 3V* Age/Sex: 32 / F ADM Date: 11/13/22 [employer] Other XR hand RT min 3V* Loc[place] [facility] [place]: Type: [facility] [employer] Other XR hand RT min 3V* Attending Dr: Bonnie Jeffrey MD [employer] Other XR hand RT min 3V* Copies to: Bonnie Jeffrey MD [employer] Other XR hand RT min 3V* Ordering Provider: Bonnie Jeffrey MD [employer] Other XR hand RT min 3V* Date of Service: 11/13/22 [employer] Other XR hand RT min 3V* XR/XR hand RT min 3V*: Crushing injury of right thumb, subsequent [employer] Other XR hand RT min 3V* encounter [employer] Other XR hand RT min 3V* XR hand RT min 3V* 11/13/2022 3:49 PM [employer] Other XR hand RT min 3V* SIGNS AND SYMPTOMS: Status post incision and debridement of open fracture of right thumb, follow-up [employer] Other XR hand RT min 3V* PROTOCOL: Frontal, lateral, and oblique radiographs of the right hand [employer] Other XR hand RT min 3V* COMPARISON: 09/25/2022 [employer] Other XR hand RT min 3V* FINDINGS: [employer] Other XR hand RT min 3V* Healing/healed fracture of the distal phalanx of the right thumb. There is no change in alignment. [employer] Other XR hand RT min 3V* The joint spaces are preserved. No significant soft tissue swelling. [employer] Other XR hand RT min 3V* XR/XR hand RT min 3V* [employer] Other XR hand RT min 3V* IMPRESSION: [employer] Other XR hand RT min 3V* Impression dictated by: Kalpesh Murry M.D.11/13/2022 5:23 PM [place] [employer] Other XR hand RT min 3V* Dictation Location: [place] [address] [employer] Other XR hand RT min 3V* Transcribed By: SHAY 11/13/22 [facility] [employer] Other XR hand RT min 3V* Dictated By: Kalpesh Murry II, MD 11/13/22 [facility] [employer] Other XR hand RT min 3V* Signed By: [employer] Other XR hand RT min 3V* 11/13/22 [facility] [place] [employer] Other PROF CHEM 8 (BAS METB)on Anion gap [Moles/Vol] 11.0 mmol/L Normal [facility] Comment on above: Performed By: #### B MP #### [facility] [address] [place] [address] [address] Shemar Armas Calcium [Mass/Vol] 8.8 mg/dL Normal 8.5-10.1 [facility] Comment on above: Performed By: #### B MP #### [facility] [address] [place] [address] [address] Shemar Armas Chloride [Moles/Vol] 100 mmol/L Normal 98-[address] [facility] Comment on above: Performed By: #### B MP #### [facility] [address] [place] [address] [address] Shemar Armas CO2 [Moles/Vol] 31.5 mmol/L Normal 21.0-32.0 [facility] Comment on above: Performed By: #### B MP #### [facility] [address] [place] [address] [address] Shemar Armas Creatinine [Mass/Vol] 1.18 mg/dL Critically high 0.55-1.02 [facility] Comment on above: Performed By: #### B MP #### [facility] [address] [place] [address] [address] Shemar Armas EGFR-AF SAMMARINESE >60 Normal >=60 [facility] Comment on above: Performed By: #### B MP #### [facility] [address] [place] [address] [address] Shemar Armas EGFR-NON AF SAMMARINESE 53 mL/min/1.73m2 Critically low >=[address] [facility] Comment on above: Performed By: #### B MP #### [facility] [address] [place] [address] [address] Shemar Armas Glucose [Mass/Vol] 89 mg/dL Normal 74-106 [facility] Comment on above: Performed By: #### B MP #### [facility] [address] [place] [address] [address] Shemar Armas Potassium [Moles/Vol] 3.5 mmol/L Normal 3.5-5.[address] [facility] Comment on above: Performed By: #### B MP #### [facility] [address] [place] [address] [address] Shemar Armas Sodium [Moles/Vol] 139 mmol/L Normal 136-145 [facility] Comment on above: Performed By: #### B MP #### [facility] [address] [place] [address] [address] Shemar Armas Urea nitrogen [Mass/Vol] 11.0 mg/dL Normal 7.0-18.0 [facility] Comment on above: Performed By: #### B MP #### [facility] [address] [place] [address] [address] Shemar Armas Urea nitrogen/Creatinine [Mass ratio] 9.3 mg/mg Normal [facility] Comment on above: Performed By: #### B MP #### [facility] [address] [place] [address] [address] Shemar Armas HCG ( test) IA.rapi d Ql (U)Ordered By: THOM DUONG on 09-28-2022 HCG ( test) Ql (U) Negative [facility] Albumin [Mass/volume] in Ser um or PlasmaOrdered By: Bonnie Jeffrey on 09-26-2022 Albumin [Mass/Vol] 4.0 g/dL 3.2-5.5 [facility] Basophils Auto (Bld) [#/Vol] Ordered By: Bonnie Jeffrey on 09-26-2022 Basophils (Bld) [#/Vol] 0.1 10*3/uL 0.0-0.2 [facility] Basophils/100 WBC Auto (Bld) Ordered By: Bonnie Jeffrey on 09-26-2022 Basophils/100 WBC (Bld) 1.2 % . [facility] Creatinine and Glomerular fi ltration rate.predicted panel (S/P/Bld)Ordered By: Bonnie Jeffrey on 09-26-2022 Creatinine [Mass/Vol] 1.82 mg/dL 0.44-1.03 [facility] Eosinophils Auto (Bld) [#/Vo l]Ordered By: Bonnie Jeffrey on 09-26-2022 Eosinophils (Bld) [#/Vol] 0.1 10*3/uL 0.0-0.45 [facility] Eosinophils/100 WBC Auto (Bl d)Ordered By: Bonnie Jeffrey on 09-26-2022 Eosinophils/100 WBC (Bld) 0.9 % . [facility] Erythrocyte distribution wid th Auto (RBC) [Ratio]Ordered By: Bonnie Jeffrey on 09-26-2022 Erythrocyte distribution width (RBC) [Ratio] 13.6 % 11.9-15.3 [facility] Estimated glomerular filtrat ion rate (GFR) non- AmericanOrdered By: Bonnie Jeffrey on 09-26-2022 GFR/1.73 sq M.predicted among non-blacks MDRD (S/P/Bld) [Vol rate/Area] 32 mL/Min [facility] Globulin Calc (S) [Mass/Vol] Ordered By: Bonnie Jeffrey on 09-26-2022 Globulin (S) [Mass/Vol] 2.8 g/dL [facility] Hematocrit Auto (Bld) [Volum e fraction]Ordered By: Bonnie Jeffrey on 09-26-2022 Hematocrit (Bld) [Volume fraction] 40.2 % 34.0-46.4 [facility] Hemoglobin [Mass/volume] in BloodOrdered By: Bonnie Jeffrey on 09-26-2022 Hemoglobin (Bld) [Mass/Vol] 13.3 g/dL 11.8-15.4 [facility] Leukocytes [#/volume] correc franco for nucleated erythrocytes in Blood by Automated counOrdered By: Bonnie Jeffrey on 09-26-2022 WBC corrected for nucl RBC Auto (Bld) [#/Vol] 9.4 10*3/uL 3.8-11.6 [facility] Lymphocytes Auto (Bld) [#/Vo l]Ordered By: Bonnie Jeffrey on 09-26-2022 Lymphocytes (Bld) [#/Vol] 1.7 10*3/uL 1.00-4.8 [facility] Lymphocytes/100 WBC Auto (Bl d)Ordered By: Bonnie Jeffrey on 09-26-2022 Lymphocytes/100 WBC (Bld) 18.1 % . [facility] MCH Auto (RBC) [Entitic mass ]Ordered By: Bonnie Jeffrey on 09-26-2022 MCH (RBC) [Entitic mass] 28.8 pg 24.7-34.3 [facility] MCHC Auto (RBC) [Mass/Vol]Or dered By: Bonnie Jeffrey on 09-26-2022 MCHC (RBC) [Mass/Vol] 33.0 g/dL 32.0-35.0 [facility] MCV Auto (RBC) [Entitic vol] Ordered By: Bonnie Jefrfey on 09-26-2022 MCV (RBC) [Entitic vol] 87.1 fL 80-100 [facility] Monocytes Auto (Bld) [#/Vol] Ordered By: Bonnie Jeffrey on 09-26-2022 Monocytes (Bld) [#/Vol] 0.5 10*3/uL 0.0-0.8 [facility] Monocytes/100 WBC Auto (Bld) Ordered By: Bonnie Jeffrey on 09-26-2022 Monocytes/100 WBC (Bld) 5.8 % . [facility] Neutrophils Auto (Bld) [#/Vo l]Ordered By: Bonnie Jeffrey on 09-26-2022 Neutrophils (Bld) [#/Vol] 7.0 10*3/uL 1.8-7.7 [facility] Neutrophils/100 WBC Auto (Bl d)Ordered By: Bonnie Jeffrey on 09-26-2022 Neutrophils/100 WBC (Bld) 74.0 % . [facility] No Panel InformationOrdered By: Bonnie Jeffrey on 09-26-2022 Estimated GFR () 39 mL/Min [facility] Comment on above: GFR estimated refere nce range: According to KDOQI guidelines, <60 ml/min/1.73m2 is sufficient to diagnose a patient with chronic kidney disease. Pharmacy Creatinine Clearance (Chem N/A [facility] Nucleated erythrocytes [Pres ence] in Blood by Automated countOrdered By: Bonnie Jeffrey on 09-26-2022 Nucleated RBC Auto Ql (Bld) 0.0 /100{WBC} 0-0.5 [facility] Platelet mean volume Auto (B ld) [Entitic vol]Ordered By: Bonnie Jeffrey on 09-26-2022 Platelet mean volume (Bld) [Entitic vol] 7.8 fL 6.3-10.7 [facility] Platelets Auto (Bld) [#/Vol] Ordered By: Bonnie Jeffrey on 09-26-2022 Platelets (Bld) [#/Vol] 335 10*3/uL 150-450 [facility] Protein [Mass/volume] in Ser um or PlasmaOrdered By: Bonnie Jeffrey on 09-26-2022 Protein [Mass/Vol] 6.8 g/dL 6.1-7.9 [facility] RBC Auto (Bld) [#/Vol]Ordere d By: Bonnie Jeffrey on 09-26-2022 RBC (Bld) [#/Vol] 4.62 10*6/uL 3.60-5.00 [facility] Serum or plasma alanine kamara otransferase measurement without P-5'-P (enzymatic activiOrdered By: Bonnie Jeffrey on 09-26-2022 ALT No additional P-5'-P [Catalytic activity/Vol] 19 U/L 10-60 [facility] Serum or plasma albumin/glob ulin mass ratioOrdered By: Bonnie Jeffrey on 09-26-2022 Albumin/Globulin [Mass ratio] 1.4 {ratio} [facility] Serum or plasma alkaline mona sphatase measurement (enzymatic activity/volume)Ordered By: Bonnie Jeffrey on 09-26-2022 ALP [Catalytic activity/Vol] 45 U/L 32-92 [facility] Serum or plasma anion gap de terminationOrdered By: Bonnie Jeffrey on 09-26-2022 Anion gap [Moles/Vol] 13.8 mmol/L 6.0-15.0 [facility] Serum or plasma aspartate am inotransferase measurement (enzymatic activity/volume)Ordered By: Bonnie Jeffrey on 09-26-2022 AST [Catalytic activity/Vol] 17 U/L 10-42 [facility] Serum or plasma calcium sagrario urement (mass/volume)Ordered By: Bonnie Jeffrey on 09-26-2022 Calcium [Mass/Vol] 8.9 mg/dL 8.2-10.2 [facility] Serum or plasma chloride julieta surement (moles/volume)Ordered By: Bonnie Jeffrey on 09-26-2022 Chloride [Moles/Vol] 100 mmol/L 95-114 [facility] Serum or plasma glucose sagrario urement (mass/volume)Ordered By: Bonnie Jeffrey on 09-26-2022 Glucose [Mass/Vol] 86 mg/dL 70-100 [facility] Comment on above: ADA recommended refe rence rangeRandom Glucose Reference Range is dependent on time and content of last meal. Glucose of more than 200 mg/dL in a nonstressed, ambulatory subject supports the diagnosis of Diabetes Mellitus. Serum or plasma potassium me asurement (moles/volume)Ordered By: Bonnie Jeffrey on 09-26-2022 Potassium [Moles/Vol] 3.5 mmol/L 3.5-5.1 [facility] Serum or plasma sodium measu rement (moles/volume)Ordered By: Bonnie Jeffrey on 09-26-2022 Sodium [Moles/Vol] 134 mmol/L 136-146 [facility] Serum or plasma total biliru bin measurement (mass/volume)Ordered By: Bonnie Jeffrey on 09-26-2022 Bilirubin [Mass/Vol] 0.5 mg/dL 0.3-1.2 [facility] Serum or plasma total carbon dioxide measurement (moles/volume)Ordered By: Bonnie Jeffrey on 09-26-2022 CO2 [Moles/Vol] 23.7 mmol/L 22.0-30.0 [facility] Serum or plasma urea nitroge n measurement (mass/volume)Ordered By: Bonnie Jeffrey on 09-26-2022 Urea nitrogen [Mass/Vol] 25 mg/dL 9-23 [facility] WBC Auto (Bld) [#/Vol]Ordere d By: Bonnie Jeffrey on 09-26-2022 WBC (Bld) [#/Vol] 9.4 10*3/uL 3.8-11.6 [facility] Operative Reporton 3 Operative Report [id number] #1.00CD:127 Normal [facility] Pathology Noteon 09-14-2022 Pathology Note [id number]#1.00CD:127 Normal [facility] PREG HCG QUALon 09-12-2022 , QUAL Negative Normal NEGATIVE [facility] Comment on above: Performed By: #### P REG #### [facility] [address] [place] [address] Dr. Shemar Armas Lab Reportson 09-10-2022 Lab Reports [id number] #1.00CD:127 Normal [facility] Covid-19 PCR (CVDTB)on 08-26 SARS-CoV-2 (COVID-19) RNA PADMINI+probe Ql (Unsp spec) Not detected Normal NOT DETECTED [facility] Comment on above: Result Comment: This test is not yet approved or cleared by the [place] FDA. When there are no FDA-approved or cleared tests available, and other criteria are met, FDA can make tests available under an emergency access mechanism called an Emergency Use Authorization (EUA). The EUA for this test is supported by the [place] of Health and Human Service's (HHS's) declaration [...] consistent with SARS-CoV-2. Performed By: #### [facility] #### [facility] [address] [address] [address] Shemar Armas ED Note-Physicianon 08-01-20 ED Note-Physician [id number] #1.00CD:127 Normal [facility] Consent for Procedure/Surger yon 07-31-2022 Consent for Procedure/Surgery [id number] #1.00CD:127 Normal [facility] Physician Referralon 022 Physician Referral [id number] #1.00CD:127 Normal [facility] US SINGLE QUAD RT UPPERon [...] by: THOM ANGELA Date: 2022-07-09 17:10 Normal [facility] US KIDNEYS BLADDERon 022 US KIDNEYS [...] by: THOM ANGELA Date: 2022-07-04 14:26 Normal [facility] CBC AUTO DIFFon 07-02-2022 BASO # 0.1 103/ul Normal 0.0-0.1 [facility] Comment on above: Performed By: #### C BC #### [facility] [address] [place] [address] Dr. Shemar Armas Basophils/100 WBC (Bld) 0.6 % Normal 0.2-2.0 T [facility] Comment on above: Performed By: #### C BC #### [facility] [address] [place] [address] Dr. Shemar Armas EO # 0.1 103/ul Normal 0.0-0.[address] [facility] Comment on above: Performed By: #### C BC #### [facility] [address] [place] [address] Dr. Shemar Armas Eosinophils/100 WBC (Bld) 0.8 % Critically low 0.9-7.0 [facility] Comment on above: Performed By: #### C BC #### [facility] [address] [place] [address] Dr. Shemar Armas Erythrocyte distribution width (RBC) [Ratio] 14.6 % Normal 11.0-15.0 [facility] Comment on above: Performed By: #### C BC #### [facility] [address] [place] [address] Dr. Shemar Armas Hematocrit (Bld) [Volume fraction] 36.4 % Normal 36.0-48.0 [facility] Comment on above: Performed By: #### C BC #### [facility] [address] [place] [address] Dr. Shemar Armas Hemoglobin (Bld) [Mass/Vol] 12.2 g/dL Normal 12.0-16.0 [facility] Comment on above: Performed By: #### C BC #### [facility] [address] [place] [address] Dr. Shemar Armas IG # 0.04 10e3/ul Critically high 0.00-0.03 [facility] Comment on above: Performed By: #### C BC #### [facility] [address] [place] [address] Dr. Shemar Armas IG % 0.3 % Normal 0.0-0.[address] [facility] Comment on above: Performed By: #### C BC #### [facility] [address] [place] [address] Dr. Shemar Armas LYMPH # 2.1 103/ul Normal 1.2-3.[address] [facility] Comment on above: Performed By: #### C BC #### [facility] [address] [place] [address] Dr. Shemar Armas Lymphocytes/100 WBC (Bld) 18.7 % Critically low 20.5-60.0 [facility] Comment on above: Performed By: #### C BC #### [facility] [address] [place] [address] Dr. Shemar rAmas MANUAL DIFF REQ NO Normal [facility] Comment on above: Performed By: #### C BC #### [facility] [address] [place] [address] Dr. Shemar Armas MCH (RBC) [Entitic mass] 29.6 pg Normal 26.7-34.0 [facility] Comment on above: Performed By: #### C BC #### [facility] [address] [place] [address] Dr. Shemar Armas MCHC (RBC) [Mass/Vol] 33.5 g/dL Normal 29.9-35.2 [facility] Comment on above: Performed By: #### C BC #### [facility] [address] [place] [address] Dr. Shemar Armas MCV (RBC) [Entitic vol] 88.3 fL Normal 81.0-99.0 [facility] Comment on above: Performed By: #### C BC #### [facility] [address] [place] [address] Dr. Shemar Armas MONO # 0.7 103/ul Normal 0.3-0.8 [facility] Comment on above: Performed By: #### C BC #### [facility] [address] [place] [address] Dr. Shemar Armas Monocytes/100 WBC (Bld) 6.2 % Normal 1.7-12.0 [facility] Comment on above: Performed By: #### C BC #### [facility] [address] [place] [address] Dr. Shemar Armas NEUT # 8.4 103/ul Critically high 1.4-6.5 [facility] Comment on above: Performed By: #### C BC #### [facility] [address] [place] [address] Dr. Shemar Armas Neutrophils/100 WBC (Bld) 73.4 % Normal 43.0-75.0 [facility] Comment on above: Performed By: #### C BC #### [facility] [address] [place] [address] Dr. Shemar Armas Platelet mean volume (Bld) [Entitic vol] 9.2 fL Critically low 9.5-13.5 [facility] Comment on above: Performed By: #### C BC #### [facility] [address] [place] [address] Dr. Shemar Armas PLT 331 103/ul Normal 150-450 [facility] Comment on above: Performed By: #### C BC #### [facility] [address] [place] [address] Dr. Shemar Armas RBC 4.12 106/ul Critically low 4.20-5.40 [facility] Comment on above: Performed By: #### C BC #### [facility] [address] [place] [address] Dr. Shemar Armas WBC 11.4 103/ul Critically high 4.0-11.0 [facility] Comment on above: Performed By: #### C BC #### [facility] [address] [place] [address] Dr. Shemar Armas PROF CHEM 8 (BAS METB)on Anion gap [Moles/Vol] 11.5 mmol/L Normal [facility] Comment on above: Performed By: #### B MP #### [facility] [address] [place] [address] Dr. Shemar Armas Calcium [Mass/Vol] 8.9 mg/dL Normal 8.5-10.1 [facility] Comment on above: Performed By: #### B MP #### [facility] [address] [place] [address] Dr. Shemar Armas Chloride [Moles/Vol] 102 mmol/L Normal 98-107 [facility] Comment on above: Performed By: #### B MP #### [facility] [address] [place] [address] Dr. Shemar Armas CO2 [Moles/Vol] 29.6 mmol/L Normal 21.0-32.0 [facility] Comment on above: Performed By: #### B MP #### [facility] [address] [address] [address] Shemar Armas Creatinine [Mass/Vol] 1.93 mg/dL Critically high 0.55-1.02 [facility] Comment on above: Performed By: #### B MP #### [facility] [address] [address] [address] Shemar Armas EGFR-AF SAMMARINESE 37 mL/min/1.73m2 Critically low >=60 [facility] Comment on above: Performed By: #### B MP #### [facility] [address] [address] [address] Shemar Armas EGFR-NON AF SAMMARINESE 30 mL/min/1.73m2 Critically low >=60 [facility] Comment on above: Performed By: #### B MP #### [facility] [address] [address] [address] Shemar Armas Glucose [Mass/Vol] 93 mg/dL Normal 74-106 [facility] Comment on above: Performed By: #### B MP #### [facility] [address] [address] [address] Shemar Armas Potassium [Moles/Vol] 4.1 mmol/L Normal 3.5-5.1 [facility] Comment on above: Performed By: #### B MP #### [facility] [address] [address] [address] Shemar Armas Sodium [Moles/Vol] 139 mmol/L Normal 136-145 [facility] Comment on above: Performed By: #### B MP #### [facility] [address] [address] [address] Shemar Armas Urea nitrogen [Mass/Vol] 22.0 mg/dL Critically high 7.0-18.0 [facility] Comment on above: Performed By: #### B MP #### [facility] [address] [address] [address] Shemar Armas Urea nitrogen/Creatinine [Mass ratio] 11.4 mg/mg Normal [facility] Comment on above: Performed By: #### B MP #### [facility] [address] [place] [address] Dr. Shemar Armas BNPon 06-29-2022 Natriuretic peptide B (Bld) [Mass/Vol] 159.0 pg/mL Normal <=450.0 [facility] Comment on above: Performed By: #### B MP #### [facility] [address] [place] [address] Dr. Shemar Armas CBC AUTO DIFFon 06-29-2022 BASO # 0.1 103/ul Normal 0.0-0.1 [facility] Comment on above: Performed By: #### P REG #### [facility] [address] [place] [address] Dr. Shemar Armas Basophils/100 WBC (Bld) 0.7 % Normal 0.2-2.0 [facility] Comment on above: Performed By: #### P REG #### [facility] [address] [place] [address] Dr. Shemar Armas EO # 0.1 103/ul Normal 0.0-0.7 [facility] Comment on above: Performed By: #### P REG #### [facility] [address] [place] [address] Dr. Shemar Armas Eosinophils/100 WBC (Bld) 1.4 % Normal 0.9-7.0 [facility] Comment on above: Performed By: #### P REG #### [facility] [address] [place] [address] Dr. Shemar Armas Erythrocyte distribution width (RBC) [Ratio] 14.5 % Normal 11.0-15.0 [facility] Comment on above: Performed By: #### P REG #### [facility] [address] [place] [address] Dr. Shemar Armas Hematocrit (Bld) [Volume fraction] 35.4 % Critically low 36.0-48.0 [facility] Comment on above: Performed By: #### P REG #### [facility] [address] [address] [address] Shemar Armas Hemoglobin (Bld) [Mass/Vol] 11.9 g/dL Critically low 12.0-16.0 [facility] Comment on above: Performed By: #### P REG #### [facility] [address] [address] [address] Shemar Armas IG # 0.05 10e3/ul Critically high 0.00-0.03 [facility] Comment on above: Performed By: #### P REG #### [facility] [address] [address] [address] Shemar Armas IG % 0.5 % Normal 0.0-0.5 [facility] Comment on above: Performed By: #### P REG #### [facility] [address] [place] [address] Dr. Shemar Armas LYMPH # 1.7 103/ul Normal 1.2-3.8 [facility] Comment on above: Performed By: #### P REG #### [facility] [address] [place] [address] Dr. Shemar Armas Lymphocytes/100 WBC (Bld) 17.3 % Critically low 20.5-60.0 [facility] Comment on above: Performed By: #### P REG #### [facility] [address] [place] [address] Dr. Shemar Armas MANUAL DIFF REQ NO Normal [facility] Comment on above: Performed By: #### P REG #### [facility] [address] [address] [address] Shemar Armas MCH (RBC) [Entitic mass] 29.5 pg Normal 26.7-34.0 [facility] Comment on above: Performed By: #### P REG #### [facility] [address] [place] [address] Dr. Shemar Armas MCHC (RBC) [Mass/Vol] 33.6 g/dL Normal 29.9-35.2 [facility] Comment on above: Performed By: #### P REG #### [facility] [address] [address] [address] Shemar Armas MCV (RBC) [Entitic vol] 87.8 fL Normal 81.0-99.0 [facility] Comment on above: Performed By: #### P REG #### [facility] [address] [place] [address] Dr. Shemar Armas MONO # 0.6 103/ul Normal 0.3-0.8 [facility] Comment on above: Performed By: #### P REG #### [facility] [address] [address] [address] Shemar Armas Monocytes/100 WBC (Bld) 6.3 % Normal 1.7-12.0 [facility] Comment on above: Performed By: #### P REG #### [facility] [address] [place] [address] Dr. Shemar Armas NEUT # 7.1 103/ul Critically high 1.4-6.5 [facility] Comment on above: Performed By: #### P REG #### [facility] [address] [place] [address] Dr. Shemar Armas Neutrophils/100 WBC (Bld) 73.8 % Normal 43.0-75.0 [facility] Comment on above: Performed By: #### P REG #### [facility] [address] [place] [address] Dr. Shemar Armas Platelet mean volume (Bld) [Entitic vol] 9.4 fL Critically low 9.5-13.5 [facility] Comment on above: Performed By: #### P REG #### [facility] [address] [place] [address] Dr. Shemar Armas PLT 350 103/ul Normal 150-[address] [facility] Comment on above: Performed By: #### P REG #### [facility] [address] [place] [address] Dr. Shemar Armas RBC 4.03 106/ul Critically low 4.20-5.40 [facility] Comment on above: Performed By: #### P REG #### [facility] [address] [place] [address] Dr. Shemar Armas WBC 9.6 103/ul Normal 4.0-11.0 [facility] Comment on above: Performed By: #### P REG #### [facility] [address] [place] [address] Dr. Shemar Armas BASO # 0.0 103/ul Normal 0.0-0.1 [facility] Comment on above: Performed By: #### C BC #### [facility] [address] [place] [address] Dr. Shemar Armas Basophils/100 WBC (Bld) 0.6 % Normal 0.2-2.0 [facility] Comment on above: Performed By: #### C BC #### [facility] [address] [place] [address] Dr. Shemar Armas EO # 0.1 103/ul Normal 0.0-0.7 [facility] Comment on above: Performed By: #### C BC #### [facility] [address] [place] [address] Dr. Shemar Armas Eosinophils/100 WBC (Bld) 1.2 % Normal 0.9-7.0 [facility] Comment on above: Performed By: #### C BC #### [facility] [address] [place] [address] Dr. Shemar Armas Erythrocyte distribution width (RBC) [Ratio] 14.4 % Normal 11.0-15.0 [facility] Comment on above: Performed By: #### C BC #### [facility] [address] [place] [address] Dr. Shemar Armas Hematocrit (Bld) [Volume fraction] 29.3 % Critically low 36.0-48.0 [facility] Comment on above: Performed By: #### C BC #### [facility] [address] [place] [address] Dr. Shemar Armas Hemoglobin (Bld) [Mass/Vol] 9.9 g/dL Critically low 12.0-16.0 [facility] Comment on above: Performed By: #### C BC #### [facility] [address] [place] [address] Dr. Shemar Armas IG # 0.04 10e3/ul Critically high 0.00-0.03 [facility] Comment on above: Performed By: #### C BC #### [facility] [address] [place] [address] Dr. Shemar Armas IG % 0.6 % Critically high 0.0-0.5 [facility] Comment on above: Performed By: #### C BC #### [facility] [address] [place] [address] Dr. Shemar Armas LYMPH # 1.5 103/ul Normal 1.2-3.8 [facility] Comment on above: Performed By: #### C BC #### [facility] [address] [place] [address] Dr. Shemar Armas Lymphocytes/100 WBC (Bld) 20.1 % Critically low 20.5-60.0 [facility] Comment on above: Performed By: #### C BC #### [facility] [address] [place] [address] Dr. Shemar Armas MANUAL DIFF REQ NO Normal [facility] Comment on above: Performed By: #### C BC #### [facility] [address] [place] [address] Dr. Shemar Armas MCH (RBC) [Entitic mass] 29.9 pg Normal 26.7-34.0 [facility] Comment on above: Performed By: #### C BC #### [facility] [address] [place] [address] Dr. Shemar Armas MCHC (RBC) [Mass/Vol] 33.8 g/dL Normal 29.9-35.2 [facility] Comment on above: Performed By: #### C BC #### [facility] [address] [place] [address] Dr. Shemar Armas MCV (RBC) [Entitic vol] 88.5 fL Normal 81.0-99.0 [facility] [place] Comment on above: Performed By: #### C BC #### [facility] [address] [place] [address] Dr. Shemar Armas MONO # 0.5 103/ul Normal 0.3-0.8 [facility] Comment on above: Performed By: #### C BC #### [facility] [address] [place] [address] Dr. Shemar Armas Monocytes/100 WBC (Bld) 7.5 % Normal 1.7-12.0 [facility] Comment on above: Performed By: #### C BC #### [facility] [address] [place] [address] Dr. Shemar Armas NEUT # 5.1 103/ul Normal 1.4-6.5 [facility] Comment on above: Performed By: #### C BC #### [facility] [address] [place] [address] Dr. Shemar Armas Neutrophils/100 WBC (Bld) 70.0 % Normal 43.0-75.0 [facility] Comment on above: Performed By: #### C BC #### [facility] [address] [place] [address] Dr. Shemar Armas Platelet mean volume (Bld) [Entitic vol] 9.2 fL Critically low 9.5-13.5 [facility] Comment on above: Performed By: #### C BC #### [facility] [address] [place] [address] Dr. Shemar Armas PLT 225 103/ul Normal 150-[address] [facility] Comment on above: Performed By: #### C BC #### [facility] [address] [place] [address] Dr. Shemar Armas RBC 3.31 106/ul Critically low 4.20-5.40 [facility] Comment on above: Performed By: #### C BC #### [facility] [address] [place] [address] Dr. Shemar Armas WBC 7.2 103/ul Normal 4.0-11.[address] [facility] Comment on above: Performed By: #### C BC #### [facility] [address] [place] [address] Dr. Shemar Armas IRONon 06-29-2022 Iron [Mass/Vol] 110.0 ug/dL Normal 50.0-170.0 [facility] Comment on above: Performed By: #### P REG #### [facility] [address] [place] [address] Dr. Shemar Armas PROF 14(COMP METB)on 022 Albumin [Mass/Vol] 4.0 g/dL Normal 3.4-5.0 [facility] Comment on above: Performed By: #### P REG #### [facility] [address] [place] [address] Dr. Shemar Armas Albumin/Globulin [Mass ratio] 1.1 {ratio} Normal [facility] Comment on above: Performed By: #### P REG #### [facility] [address] [place] [address] Dr. Shemar Armas ALP [Catalytic activity/Vol] 57 U/L Normal 46-116 [facility] Comment on above: Performed By: #### P REG #### [facility] [address] [place] [address] Dr. Shemar Armas ALT [Catalytic activity/Vol] 26 U/L Normal 14-59 [facility] Comment on above: Performed By: #### P REG #### [facility] [address] [place] [address] Dr. Shemar Armas Anion gap [Moles/Vol] 10.0 mmol/L Normal [facility] Comment on above: Performed By: #### P REG #### [facility] [address] [place] [address] Dr. Shemar Armas AST [Catalytic activity/Vol] 15 U/L Normal 15-37 [facility] Comment on above: Performed By: #### P REG #### [facility] [address] [place] [address] Dr. Shemar Armas Bilirubin [Mass/Vol] 0.2 mg/dL Normal 0.2-1.0 [facility] Comment on above: Performed By: #### P REG #### [facility] [address] [place] [address] Dr. Shemar Armas Calcium [Mass/Vol] 8.8 mg/dL Normal 8.5-10.1 [facility] Comment on above: Performed By: #### P REG #### [facility] [address] [address] [address] Shemar Armas Chloride [Moles/Vol] 105 mmol/L Normal 98-107 [facility] Comment on above: Performed By: #### P REG #### [facility] [address] [address] [address] Shemar Armas CO2 [Moles/Vol] 26.8 mmol/L Normal 21.0-32.0 [facility] Comment on above: Performed By: #### P REG #### [facility] [address] [address] [address] Shemar Armas Creatinine [Mass/Vol] 1.60 mg/dL Critically high 0.55-1.02 [facility] Comment on above: Performed By: #### P REG #### [facility] [address] [address] [address] Shemar Armas EGFR-AF SAMMARINESE 46 mL/min/1.73m2 Critically low >=60 [facility] Comment on above: Performed By: #### P REG #### [facility] [address] [address] [address] Shemar Armas EGFR-NON AF SAMMARINESE 38 mL/min/1.73m2 Critically low >=60 [facility] Comment on above: Performed By: #### P REG #### [facility] [address] [address] [address] Shemar Armas Globulin (S) [Mass/Vol] 3.5 g/dL Normal T [facility] Comment on above: Performed By: #### P REG #### [facility] [address] [address] [address] Shemar Armas Glucose [Mass/Vol] 98 mg/dL Normal 74-106 [facility] Comment on above: Performed By: #### P REG #### [facility] [address] [address] [address] Shemar Armas Potassium [Moles/Vol] 3.8 mmol/L Normal 3.5-5.1 [facility] Comment on above: Performed By: #### P REG #### [facility] [address] [address] [address] Shemar Armas Protein [Mass/Vol] 7.5 g/dL Normal 6.4-8.2 [facility] Comment on above: Performed By: #### P REG #### [facility] [address] [address] [address] Shemar Armas Sodium [Moles/Vol] 138 mmol/L Normal 136-145 [facility] Comment on above: Performed By: #### P REG #### [facility] [address] [address] [address] Shemar Armas Urea nitrogen [Mass/Vol] 24.0 mg/dL Critically high 7.0-18.0 [facility] Comment on above: Performed By: #### P REG #### [facility] [address] [place] [address] Dr. Shemar Armas Urea nitrogen/Creatinine [Mass ratio] 15.0 mg/mg Normal [facility] Comment on above: Performed By: #### P REG #### [facility] [address] [address] [address] Shemar Armas Albumin [Mass/Vol] 3.3 g/dL Critically low 3.4-5.0 [facility] Comment on above: Performed By: #### B MP #### [facility] [address] [address] [address] Shemar Armas Albumin/Globulin [Mass ratio] 1.1 {ratio} Normal [facility] Comment on above: Performed By: #### B MP #### [facility] [address] [address] [address] Shemar Armas ALP [Catalytic activity/Vol] 55 U/L Normal 46-116 [facility] Comment on above: Performed By: #### B MP #### [facility] [address] [address] [address] Shemar Armas ALT [Catalytic activity/Vol] 21 U/L Normal 14-59 [facility] Comment on above: Performed By: #### B MP #### [facility] [address] [address] [address] Shemar Armas Anion gap [Moles/Vol] 8.1 mmol/L Normal [facility] Comment on above: Performed By: #### B MP #### [facility] [address] [address] [address] Shemar Armas AST [Catalytic activity/Vol] 13 U/L Critically low 15-37 [facility] Comment on above: Performed By: #### B MP #### [facility] [address] [address] [address] Shemar Armas Bilirubin [Mass/Vol] 0.1 mg/dL Critically low 0.2-1.0 [facility] Comment on above: Performed By: #### B MP #### [facility] [address] [address] [address] Shemar Armas Calcium [Mass/Vol] 7.5 mg/dL Critically low 8.5-10.1 [facility] Comment on above: Performed By: #### B MP #### [facility] [address] [address] [address] Shemar Armas Chloride [Moles/Vol] 107 mmol/L Normal 98-107 [facility] Comment on above: Performed By: #### B MP #### [facility] [address] [address] [address] Shemar Armas CO2 [Moles/Vol] 24.5 mmol/L Normal 21.0-32.0 [facility] Comment on above: Performed By: #### B MP #### [facility] [address] [address] [address] Shemar Armas Creatinine [Mass/Vol] 2.03 mg/dL Critically high 0.55-1.02 [facility] Comment on above: Performed By: #### B MP #### [facility] [address] [address] [address] Shemar Armas EGFR-AF SAMMARINESE 35 mL/min/1.73m2 Critically low >=[address] [facility] Comment on above: Performed By: #### B MP #### [facility] [address] [address] [address] Shemar Armas EGFR-NON AF SAMMARINESE 29 mL/min/1.73m2 Critically low >=60 [facility] Comment on above: Performed By: #### B MP #### [facility] [address] [address] [address] Shemar Armas Globulin (S) [Mass/Vol] 2.9 g/dL Normal [facility] Comment on above: Performed By: #### B MP #### [facility] [address] [address] [address] Shemar Armas Glucose [Mass/Vol] 111 mg/dL Critically high 74-106 [facility] Comment on above: Performed By: #### B MP #### [facility] [address] [address] [address] Shemar Armas Potassium [Moles/Vol] 3.6 mmol/L Normal 3.5-5.1 [facility] Comment on above: Performed By: #### B MP #### [facility] [address] [place] [address] Dr. Shemar Armas Protein [Mass/Vol] 6.2 g/dL Critically low 6.4-8.2 [facility] Comment on above: Performed By: #### B MP #### [facility] [address] [place] [address] Dr. Shemar Armas Sodium [Moles/Vol] 136 mmol/L Normal 136-145 [facility] Comment on above: Performed By: #### B MP #### [facility] [address] [address] [address] Shemar Armas Urea nitrogen [Mass/Vol] 28.0 mg/dL Critically high 7.0-18.0 [facility] Comment on above: Performed By: #### B MP #### [facility] [address] [place] [address] Dr. Shemar Armas Urea nitrogen/Creatinine [Mass ratio] 13.8 mg/mg Normal [facility] Comment on above: Performed By: #### B MP #### [facility] [address] [place] [address] Dr. Shemar Armas TROPONIN, HIGH SENSITIVITYon 06-29-2022 HSTROP 4.8 pg/mL Normal 4.0-51.3 [facility] Comment on above: Result Comment: CUT- OFF POINTS HAVE BEEN ESTABLISHED BASED ON THE FOURTH UNIVERSAL DEFINITIONS OF MYOCARDIAL INFARCTION. THE UPPER REFERENCE LIMIT (URL) OF TROPONIN, DEFINED THE 99TH PERCENTILE OF cTnI DISTRIBUTION IN A REFERENCE POPULATION, HAS BEEN CONFIRMED THE DECISION THRESHOLD FOR OR DIAGNOSIS. Performed By: #### B MP #### [facility] [address] [place] [address] Dr. Shemar Armas INSULINon 04-27-2022 Insulin 15.8 uIU/mL Normal 2.6-24.9 [facility] Comment on above: Performed By: #### I NSULIN #### [facility] [address] [place] [address] Dr. Shemar Armas T4, T3U, FTI LABCORPon 04-27 Free Thyroxine Index 3.1 Normal 1.2-4.9 [facility] Comment on above: Performed By: #### T HYLC #### [facility] [address] [place] [address] Dr. Shemar Armas T3 Uptake 31 % Normal 24-39 [facility] Comment on above: Performed By: #### T HYLC #### [facility] [address] [place] [address] Dr. Shemar Armas T4 [Mass/Vol] 10.1 ug/dL Normal 4.5-12.0 [facility] Comment on above: Performed By: #### T HYLC #### [facility] [address] [place] [address] Dr. Shemar Armas CBC AUTO DIFFon 04-26-2022 BASO # 0.1 103/ul Normal 0.0-0.1 [facility] Comment on above: Performed By: #### B MP #### [facility] [address] [place] [address] Dr. Shemar Armas Basophils/100 WBC (Bld) 0.7 % Normal 0.2-2.0 [facility] Comment on above: Performed By: #### B MP #### [facility] [address] [place] [address] Dr. Shemar Armas EO # 0.1 103/ul Normal 0.0-0.[address] [facility] Comment on above: Performed By: #### B MP #### [facility] [address] [place] [address] Dr. Shemar Armas Eosinophils/100 WBC (Bld) 0.9 % Normal 0.9-7.[address] [facility] Comment on above: Performed By: #### B MP #### [facility] [address] [place] [address] Dr. Shemar Armas Erythrocyte distribution width (RBC) [Ratio] 13.7 % Normal 11.0-15.[address] [facility] Comment on above: Performed By: #### B MP #### [facility] [address] [place] [address] Dr. Shemar Armas Hematocrit (Bld) [Volume fraction] 41.8 % Normal 36.0-48.0 [facility] Comment on above: Performed By: #### B MP #### [facility] [address] [place] [address] Dr. Shemar Armas Hemoglobin (Bld) [Mass/Vol] 13.9 g/dL Normal 12.0-16.[address] [facility] Comment on above: Performed By: #### B MP #### [facility] [address] [place] [address] Dr. Shemar Armas IG # 0.03 10e3/ul Normal 0.00-0.[address] [facility] Comment on above: Performed By: #### B MP #### [facility] [address] [place] [address] Dr. Shemar Armas IG % 0.3 % Normal 0.0-0.[address] [facility] Comment on above: Performed By: #### B MP #### [facility] [address] [place] [address] Dr. Shemar Armas LYMPH # 1.8 103/ul Normal 1.2-3.[address] [facility] Comment on above: Performed By: #### B MP #### [facility] [address] [place] [address] Dr. Shemar Armas Lymphocytes/100 WBC (Bld) 21.0 % Normal 20.5-60.0 [facility] Comment on above: Performed By: #### B MP #### [facility] [address] [place] [address] Dr. Shemar Armas MANUAL DIFF REQ NO Normal [facility] Comment on above: Performed By: #### B MP #### [facility] [address] [place] [address] Dr. Shemar Armas MCH (RBC) [Entitic mass] 28.8 pg Normal 26.7-34.0 [facility] Comment on above: Performed By: #### B MP #### [facility] [address] [place] [address] Dr. Shemar Armas MCHC (RBC) [Mass/Vol] 33.3 g/dL Normal 29.9-35.2 [facility] Comment on above: Performed By: #### B MP #### [facility] [address] [place] [address] Dr. Shemar Armas MCV (RBC) [Entitic vol] 86.7 fL Normal 81.0-99.0 [facility] Comment on above: Performed By: #### B MP #### [facility] [address] [place] [address] Dr. Shemar Armas MONO # 0.7 103/ul Normal 0.3-0.8 [facility] Comment on above: Performed By: #### B MP #### [facility] [address] [place] [address] Dr. Shemar Armas Monocytes/100 WBC (Bld) 7.9 % Normal 1.7-12.0 [facility] Comment on above: Performed By: #### B MP #### [facility] [address] [place] [address] Dr. Shemar Armas NEUT # 6.0 103/ul Normal 1.4-6.5 [facility] Comment on above: Performed By: #### B MP #### [facility] [address] [place] [address] Dr. Shemar Armas Neutrophils/100 WBC (Bld) 69.2 % Normal 43.0-75.0 [facility] Comment on above: Performed By: #### B MP #### [facility] [address] [place] [address] Dr. Shemar Armas Platelet mean volume (Bld) [Entitic vol] 9.7 fL Normal 9.5-13.5 [facility] Comment on above: Performed By: #### B MP #### [facility] [address] [place] [address] Dr. Shemar Armas PLT 322 103/ul Normal 150-[address] [facility] Comment on above: Performed By: #### B MP #### [facility] [address] [place] [address] Dr. Shemar Armas RBC 4.82 106/ul Normal 4.20-5.40 [facility] Comment on above: Performed By: #### B MP #### [facility] [address] [place] [address] Dr. Shemar Armas WBC 8.7 103/ul Normal 4.0-11.0 [facility] Comment on above: Performed By: #### B MP #### [facility] [address] [place] [address] Dr. Shemar Armas GLYCOHEMOGLOBIN A1Con 2021 ADA RECOMMENDATION SEE BELOW Normal [facility] Comment on above: Result Comment: ADA RECOMMENDED LIMIT 4.0 - 6.0 ADA THERAPEUTIC TARGET < 7.0 ACTION SUGGESTED > 7.0 Performed By: #### P REG #### [facility] [address] [place] [address] Dr. Shemar Armas Glucose [Mass/Vol] 108 mg/dL Normal [facility] Comment on above: Performed By: #### P REG #### [facility] [address] [place] [address] Dr. Shemar Armas HbA1c (Bld) [Mass fraction] 5.4 % Normal 4.5-6.2 [facility] Comment on above: Performed By: #### P REG #### [facility] [address] [place] [address] Dr. Shemar Armas IRONon 04-26-2022 Iron [Mass/Vol] 55.0 ug/dL Normal 50.0-170.0 [facility] Comment on above: Performed By: #### I CYNDI #### [facility] [address] [address] [address] Shemar Armas LIPID PROFILEon 04-26-2022 CHOL-HDL RATIO NORM SEE BELOW Normal [facility] Comment on above: Result Comment: 3.3 - 4.4 LOW RISK 4.4 - 7.1 AVERAGE RISK 7.1 - 11.0 MODERATE RISK >11.0 HIGH RISK Performed By: #### P REG #### [facility] [address] [address] [address] Shemar Armas Cholesterol [Mass/Vol] 205 mg/dL Critically high <=200 [facility] Comment on above: Performed By: #### P REG #### [facility] [address] [address] [address] Shmear Armas Cholesterol in HDL [Mass/Vol] 57 mg/dL Normal 40-60 [facility] Comment on above: Performed By: #### P REG #### [facility] [address] [address] [address] Shemar Armas Cholesterol in LDL [Mass/Vol] 126.8 mg/dL Normal [facility] Comment on above: Performed By: #### P REG #### [facility] [address] [address] [address] Shemar Armas Cholesterol.total/Viktoriya sterol in HDL [Mass ratio] 3.6 {ratio} Normal [facility] Comment on above: Performed By: #### P REG #### [facility] [address] [address] [address] Shemar Armas HDL NORMAL > or = 60 mg/dl - LOW CARDIOVASCULAR RISK <40 mg/dl - HIGH CARDIOVASCULAR RISK Normal [facility] Comment on above: Performed By: #### P REG #### [facility] [address] [address] [address] Shemar Armas LDL CALC NORMAL SEE BELOW Normal [facility] Comment on above: Result Comment: <100 mg/dl OPTIMAL 100 - 129 mg/dl NEAR OR ABOVE OPTIMAL 130 - 159 mg/dl BORDERLINE HIGH 160 - 189 mg/dl HIGH >190 mg/dl VERY HIGH Performed By: #### P REG #### [facility] [address] [place] [address] Dr. Shemar Armas Triglyceride [Mass/Vol] 106 mg/dL Normal <=150 [facility] Comment on above: Performed By: #### P REG #### [facility] [address] [address] [address] Shemar Armas VLDL CALC 21.2 mg/dL Normal [facility] Comment on above: Performed By: #### P REG #### [facility] [address] [place] [address] Dr. Shemar Armas PROF 14(COMP METB)on 022 Albumin [Mass/Vol] 4.3 g/dL Normal 3.4-5.0 [facility] Comment on above: Performed By: #### T SH, CMP, LIPID #### [facility] [address] [place] [address] Dr. Shemar Armas Albumin/Globulin [Mass ratio] 1.2 {ratio} Normal [facility] Comment on above: Performed By: #### T SH, CMP, LIPID #### [facility] [address] [place] [address] Dr. Shemar Armas ALP [Catalytic activity/Vol] 62 U/L Normal 46-116 [facility] Comment on above: Performed By: #### T SH, CMP, LIPID #### [facility] [address] [place] [address] Dr. Shemar Armas ALT [Catalytic activity/Vol] 34 U/L Normal 14-59 [facility] Comment on above: Performed By: #### T SH, CMP, LIPID #### [facility] [address] [place] [address] Dr. Shemar Armas Anion gap [Moles/Vol] 13.7 mmol/L Normal [facility] Comment on above: Performed By: #### T SH, CMP, LIPID #### [facility] [address] [address] [address] Shemar Armas AST [Catalytic activity/Vol] 22 U/L Normal 15-37 [facility] Comment on above: Performed By: #### T SH, CMP, LIPID #### [facility] [address] [place] [address] Dr. Shemar Armas Bilirubin [Mass/Vol] 0.3 mg/dL Normal 0.2-1.0 [facility] Comment on above: Performed By: #### T SH, CMP, LIPID #### [facility] [address] [place] [address] Dr. Shemar Armas Calcium [Mass/Vol] 9.1 mg/dL Normal 8.5-10.1 [facility] Comment on above: Performed By: #### T SH, CMP, LIPID #### [facility] [address] [place] [address] Dr. Shemar Armas Chloride [Moles/Vol] 98 mmol/L Normal 98-107 [facility] Comment on above: Performed By: #### T SH, CMP, LIPID #### [facility] [address] [place] [address] Dr. Shemar Armas CO2 [Moles/Vol] 29.9 mmol/L Normal 21.0-32.0 [facility] Comment on above: Performed By: #### T SH, CMP, LIPID #### [facility] [address] [place] [address] Dr. Shemar Armas Creatinine [Mass/Vol] 1.27 mg/dL Critically high 0.55-1.02 [facility] Comment on above: Performed By: #### T SH, CMP, LIPID #### [facility] [address] [place] [address] Dr. Shemar Armas EGFR-AF SAMMARINESE 59 mL/min/1.73m2 Critically low >=60 [facility] Comment on above: Performed By: #### T SH, CMP, LIPID #### [facility] [address] [place] [address] Dr. Shemar Armas EGFR-NON AF SAMMARINESE 49 mL/min/1.73m2 Critically low >=60 [facility] Comment on above: Performed By: #### T SH, CMP, LIPID #### [facility] [address] [address] [address] Shemar Armas Globulin (S) [Mass/Vol] 3.6 g/dL Normal [facility] Comment on above: Performed By: #### T SH, CMP, LIPID #### [facility] [address] [address] [address] Shemar Armas Glucose [Mass/Vol] 92 mg/dL Normal 74-106 [facility] Comment on above: Performed By: #### T SH, CMP, LIPID #### [facility] [address] [place] [address] Dr. Shemar Armas Potassium [Moles/Vol] 3.6 mmol/L Normal 3.5-5.1 [facility] Comment on above: Performed By: #### T SH, CMP, LIPID #### [facility] [address] [place] [address] Dr. Shemar Armas Protein [Mass/Vol] 7.9 g/dL Normal 6.4-8.2 [facility] Comment on above: Performed By: #### T SH, CMP, LIPID #### [facility] [address] [place] [address] Dr. Shemar Armas Sodium [Moles/Vol] 138 mmol/L Normal 136-145 [facility] Comment on above: Performed By: #### T SH, CMP, LIPID #### [facility] [address] [place] [address] Dr. Shemar Armas Urea nitrogen [Mass/Vol] 16.0 mg/dL Normal 7.0-18.0 [facility] Comment on above: Performed By: #### T SH, CMP, LIPID #### [facility] [address] [place] [address] Dr. Shemar Armas Urea nitrogen/Creatinine [Mass ratio] 12.6 mg/mg Normal [facility] Comment on above: Performed By: #### T SH, CMP, LIPID #### [facility] [address] [place] [address] Dr. Shemar Armas TSHon 04-26-2022 TSH 3.031 uIU/mL Normal 0.358-3.740 [facility] Comment on above: Performed By: #### P REG #### [facility] [address] [place] [address] Dr. Shemar Armas Vital Signs Date Time Vital Sign Value Performing Clinician Facility 10-26-2024 13:18-0500 Body height 160 cm Edis Murcek DO Work Phone: [facility] 10-26-2024 13:18-0500 Body mass index (BMI) [Ratio] 48.36 kg/m2 Edis Murcek DO Work Phone: [facility] 10-26-2024 13:18-0500 Body weight 123.83 kg Deis Murcek DO Work Phone: [facility] 09-21-2024 13:40-0500 Body height 160 cm Edis Murcek DO Work Phone: [facility] 09-21-2024 13:40-0500 Body mass index (BMI) [Ratio] 48.36 kg/m2 Edis Murcek DO Work Phone: [facility] 09-21-2024 13:40-0500 Body weight 123.83 kg Edis Murcek DO Work Phone: [facility] 09-01-2024 09:39-0500 Body height 160 cm Edis Murcek DO Work Phone: [facility] 09-01-2024 09:39-0500 Body mass index (BMI) [Ratio] 48.36 kg/m2 Edis Murcek DO Work Phone: [facility] 09-01-2024 09:39-0500 Body weight 123.83 kg Edis Murcek DO Work Phone: [facility] 10-02-2022 16:00-0500 Body height 160.02 cm Bonnie Jeffrey Other [facility] Other 10-02-2022 16:00-0500 Body mass index (BMI) [Ratio] 42.69 kg/m2 Bonnie Jeffrey Other [facility] Other 10-02-2022 16:00-0500 Body weight 109.32 kg Bonnie Jeffrey Other [facility] Other 09-28-2022 15:55-0500 Diastolic blood pressure 60 mm[Hg] MD Donnell Brooke Work Phone: [facility] 09-28-2022 15:55-0500 Heart rate 76 /min MD Donnell Brooke Work Phone: [facility] 09-28-2022 15:55-0500 Respiratory rate 16 /min MD Donnell Brooke Work Phone: [facility] 09-28-2022 15:55-0500 SaO2% (BldA) [Mass fraction] 98 % MD Donnell Brooke Work Phone: [facility] 09-28-2022 15:55-0500 Systolic blood pressure 123 mm[Hg] MD Dnonell Brooke Work Phone: [facility] 09-28-2022 14:33-0500 Body height 162.56 cm MD Donnell Brooke Work Phone: [facility] 09-28-2022 14:33-0500 Body mass index (BMI) [Ratio] 41.6 kg/m2 MD Donnell Brooke Work Phone: [facility] 09-28-2022 14:33-0500 Body weight 110 kg MD Donnell Brooke Work Phone: [facility] 09-28-2022 12:25-0500 Body temperature 98 [degF] MD Donnell Brooke Work Phone: [facility] 07-30-2022 15:29-0500 Blood Pressure Location Sanjay ZUÑIGA [facility] [place] 07-30-2022 15:29-0500 Diastolic blood pressure 83 mm[Hg] Sanjay NILL [facility] [place] 07-30-2022 15:29-0500 Heart rate 75 /min Sanjay NILL [facility] 07-30-2022 15:29-0500 Respiratory rate 16 /min Sanjay NILL [facility] 07-30-2022 15:29-0500 Systolic blood pressure 124 mm[Hg] Sanjay NILL [facility] Encounters Encounter Date Encounter Type Care Provider Facility Start: 10-26-2024 End: 10-26-2024 Bamboo flowsheet Edis Morales DO Work Phone: [facility] Start: 10-26-2024 End: 10-26-2024 Bamboo flowsheet Edis Morales DO Work Phone: [facility] Start: 10-26-2024 End: 10-26-2024 Postop follow up visit related to original px Edis Gilda Andrew DO Work Phone: [facility] Comment on above: 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); Status post partial thyroidectomy (CMS/HCC) Start: 10-26-2024 End: 10-26-2024 ambulatory EDIS MORALES Not Available Start: 09-21-2024 End: 09-21-2024 Bamboo flowsheet Edis Morales DO Work Phone: [facility] Start: 09-21-2024 End: 09-21-2024 Bamboo flowsheet Edis Morales DO Work Phone: [facility] Start: 09-21-2024 End: 09-21-2024 Postop follow up visit related to original px Edis Morales DO Work Phone: [facility] Comment on above: Malignant neoplasm o f [...] (Primary Dx) Start: 09-14-2024 End: 09-14-2024 ambulatory Donnell Brooke Facility:[facility] Start: 09-07-2024 End: 09-07-2024 External Result Encounter Edis Morales DO Work Phone: [facility] Unsolicited Start: 09-07-2024 End: 09-07-2024 External Result Encounter Edis Morales DO Work Phone: [facility] Unsolicited Start: 09-07-2024 End: 09-07-2024 Patient encounter procedure Donnell Brooke MD Work Phone: [facility] Work Phone: Start: 09-07-2024 End: 09-07-2024 ambulatory Donnell Brooke MD Work Phone: [facility] Work Phone: Start: 09-07-2024 Encounter for preprocedural laboratory examination Edis Morales [facility] Start: 09-01-2024 End: 09-01-2024 Bamboo flowsheet Edis Vo Andrew DO Work Phone: [facility] Start: 09-01-2024 End: 09-01-2024 Bamboo flowsheet Edis Morales DO Work Phone: [facility] Start: 09-01-2024 End: 09-01-2024 Office outpatient new 60 minutes Edis Morales DO Work Phone: [facility] Comment on above: Thyroid nodule (CMS/ HCC) Start: 09-01-2024 End: 09-01-2024 ambulatory EDIS MORALES Not Available Start: 08-03-2024 End: 08-03-2024 ambulatory Donnell Brooke Facility:[facility] Start: 08-03-2024 End: 08-03-2024 Departed Referred Donnell Brooke MD Work Phone: [facility] Start: 06-12-2023 End: 06-12-2023 ambulatory Bonnie Calvey Other [facility] Other Start: 06-12-2023 Office outpatient vi sit 15 minutes Bonnie Calvey [facility] Start: 03-20-2023 End: 03-20-2023 ambulatory Bonnie Calvey Other [facility] Other Start: 03-20-2023 Office outpatient vi sit 15 minutes Bonnie Calvey [facility] Start: 01-24-2023 End: 01-24-2023 ambulatory Bonnie Calvey Other [facility] Other Start: 01-24-2023 Office outpatient vi sit 15 minutes Bonnie Calvey [facility] Start: 11-13-2022 End: 11-13-2022 Patient encounter procedure MD Donnell Brooke Work Phone: [facility] Start: 11-13-2022 End: 11-13-2022 ambulatory MD Donnell Brooke Work Phone: [facility] Work Phone: Start: 11-13-2022 Postop follow up vis it related to original px Bonnie Calvey [facility] Start: 10-23-2022 End: 10-23-2022 ambulatory Bonnie Calvey Other [facility] Other Start: 10-23-2022 Postop follow up vis it related to original px Bonnie Calvey [facility] Start: 10-10-2022 End: 10-11-[address] DONNELL BROOKE . Facility: Start: 10-09-2022 End: 10-09-2022 ambulatory Bonnie Calvyaniv Other [facility] Other Start: 10-09-2022 Postop follow up vis it related to original px Bonnie Calvey [facility] Start: 10-02-2022 End: 10-02-2022 ambulatory Bonnie Calvey Other [facility] Other Start: 10-02-2022 Postop follow up vis it related to original px Bonnie Calvey [facility] Start: 10-02-2022 Telephone encounter Bonnie Calvey [facility] Start: 09-28-2022 End: 09-28-2022 Admission to same day surgery center MD Donnell Brooke Work Phone: [facility] [place] Start: 09-26-2022 End: 09-26-2022 ambulatory MD Donnell Brooke Work Phone: [facility] Work Phone: Start: 09-26-2022 End: 09-26-2022 Patient encounter procedure MD Donnell Brooke Work Phone: [facility] Work Phone: Start: 09-25-2022 End: 09-25-[address] DONNELL BROOKE . Facility: Start: 09-21-2022 ambulatory Sanjay ZUÑIGA Facility :[facility] Start: 09-14-2022 Encounter for preprocedural laboratory examination DR SANJAY ZUÑIGA . [facility] Start: 09-12-2022 End: 09-13-2022 ambulatory Sanjay ZUÑIGA Facility:CD:[id number] Start: 09-11-2022 End: 10-06-[address] DONNELL BROOKE . Facility:[facility] Start: 09-07-2022 End: 09-08-[address] DONNELL BROOKE . Facility:[facility] Start: 09-07-2022 End: 09-08-2022 Encounter for preprocedural laboratory examination DR DONNELL BROOKE . Facility:[facility] Start: 07-30-2022 End: 07-31-2022 ambulatory Donnell Brooke PROVIDER Facility:[facility] Start: 07-30-2022 End: 07-30-2022 Patient encounter procedure Sanjay ZUÑIGA [facility] [place] Start: 07-10-2022 ambulatory Donnell Brooke PROVIDER Facility:[facility] Start: 07-09-2022 End: 07-10-[address] DONNELL [...] abnormal findings DR DONNELL BROOKE . [facility] Start: 04-26-2022 End: 04-27-[address] [...] via the Tenex device, ultrasound device Sanjay NILL Extraction of wisdom tooth M chantal NILL PILONIDAL CYST EXCISION Messi ael NILL TARSAL TUNNEL RELEASE 1 Messi ael NILL Comment on above: LEFT Tonsillectomy Sanjay NILL Plan of Treatment Date Care Activity Detail Author Start: 02-01-2025 End: 02-01-2025 Patient encounter procedure 02/01/2025 1:30 PM EDT Office Visit [facility] [place] [address] [place] [id number] Edis Morales, DO [address] [place] [address] [facility] Start: 01-26-2025 End: 10-26-2025 Thyroglobulin Thyroglobulin Lab Routine Malignant neoplasm of thyroid gland (CMS/HCC) Status post partial thyroidectomy (CMS/HCC) Expected: 01/26/2025 (Approximate), Expires: 10/26/2025 [facility] Comment on above: Expected: 01/26/2025 (Approximate), Expires: 10/26/2025 Start: 01-26-2025 End: 10-26-2025 Thyrotropin [Units/volume] in Serum or Plasma [facility] Comment on above: Expected: 01/26/2025 (Approximate), Expires: 10/26/2025 Start: 01-26-2025 End: 10-26-2025 Triiodothyronine (T3) [Mass/volume] in Serum or Plasma T3 Lab Routine Malignant neoplasm of thyroid gland (CMS/HCC) Status post partial thyroidectomy (CMS/HCC) Expected: 01/26/2025 (Approximate), Expires: 10/26/2025 [facility] Comment on above: Expected: 01/26/2025 (Approximate), Expires: 10/26/2025 Start: 12-10-2024 End: 10-26-2025 Thyroglobulin Thyroglobulin Lab Routine Malignant neoplasm of thyroid gland (CMS/HCC) Status post partial thyroidectomy (CMS/HCC) Expected: 12/10/2024 (Approximate), Expires: 10/26/2025 [facility] Comment on above: Expected: 12/10/2024 (Approximate), Expires: 10/26/2025 Start: 12-10-2024 End: 10-26-2025 Thyrotropin [Units/volume] in Serum or Plasma [facility] Comment on above: Expected: 12/10/2024 (Approximate), Expires: 10/26/2025 Start: 12-10-2024 End: 10-26-2025 Triiodothyronine (T3) [Mass/volume] in Serum or Plasma T3 Lab Routine Malignant neoplasm of thyroid gland (CMS/HCC) Status post partial thyroidectomy (CMS/HCC) Expected: 12/10/2024 (Approximate), Expires: 10/26/2025 [facility] Work Phone: Comment on above: Expected: 12/10/2024 (Approximate), Expires: 10/26/2025 Start: 10-26-2024 End: 10-26-2024 Patient encounter procedure [facility] Comment on above: Arrived Start: 10-19-2024 End: 09-21-2025 Thyroglobulin Thyroglobulin Lab Routine Status post partial thyroidectomy (CMS/HCC) Expected: 10/19/2024 (Approximate), Expires: 09/21/2025 [facility] Comment on above: Expected: 10/19/2024 (Approximate), Expires: 09/21/2025 Start: 10-19-2024 End: 09-21-2025 Thyrotropin [Units/volume] in Serum or Plasma [facility] Work Phone: Comment on above: Expected: 10/19/2024 (Approximate), Expires: 09/21/2025 Start: 10-19-2024 End: 09-21-2025 Triiodothyronine (T3) [Mass/volume] in Serum or Plasma T3 Lab Routine Status post partial thyroidectomy (CMS/HCC) Expected: 10/19/2024 (Approximate), Expires: 09/21/2025 [facility] Comment on above: Expected: 10/19/2024 (Approximate), Expires: 09/21/2025 Start: 09-21-2024 End: 09-21-2024 Patient encounter procedure [facility] Comment on above: Arrived Start: 09-01-2024 End: 09-01-2025 Calcium [Mass/volume] in Serum or Plasma Calcium Lab Routine Thyroid nodule (CMS/HCC) Expected: 09/01/2024 (Approximate), Expires: 09/01/2025 [facility] Comment on above: Expected: 09/01/2024 (Approximate), Expires: 09/01/2025 Start: 09-01-2024 End: 09-01-2025 Parathyrin.intact [Mass/volume] in Serum or Plasma PTH, intact Lab Routine Thyroid nodule (CMS/HCC) Expected: 09/01/2024 (Approximate), Expires: 09/01/2025 [facility] Work Phone: Comment on above: Expected: 09/01/2024 (Approximate), Expires: 09/01/2025 Start: 09-01-2024 End: 09-01-2025 Thyrotropin [Units/volume] in Serum or Plasma TSH Lab Routine Thyroid nodule (CMS/HCC) Expected: 09/01/2024 (Approximate), Expires: 09/01/2025 [facility] Comment on above: Expected: 09/01/2024 (Approximate), Expires: 09/01/2025 Start: 09-01-2024 End: 09-01-2024 Patient encounter procedure 09/01/2024 9:45 AM EST Office Visit [facility] [address] [place] [address] Edis Morales, [address] [place] [address] Arrived [facility] Comment on above: Arrived Start: 09-28-2022 [facility] Start: 09-28-2022 [facility] Basic metabolic 1998 panel - Serum or Plasma Basic metabolic panel Lab Routine 09/07/2024 11:55 AM EST [facility] Work Phone: Patient referral [facility] Work Phone: Immunizations Immunization Date Immunization Notes Care Provider Fa cility 05-27-2024 Seasonal, trivalent, recombinant, injectable influenza vaccine, preservative free Edis Morales DO Work Phone: [facility] 05-05-2021 influenza virus vaccine, unspecified formulation Edis Morales DO Work Phone: [facility] 04-28-2020 influenza, injectable, quadrivalent, preservative free Edis Morales DO Work Phone: [facility] NEGATED: Highlighted row has not occurred!07-30-2022 influenza virus vaccine, unspecified formulation Sanjay ZUÑIGA [facility] [place] Payers Date Payer Category Payer Self-pay 2022 Private Health Insurance [employer] [id number] 2022 Unknown [id number] 1990 Unknown [id number] 2.16.840.1.885391.3.579.2. 727 1990 Unknown [id number] 2.16.840.1.264900.3.579.2. 727 1990 Unknown [id number] 2.16.840.1.043195.3.579.2. 727 1990 Unknown [id number] 2.16.840.1.037899.3.579.2. 727 1990 Unknown [id number] 2.16.840.1.625386.3.579.2. 727 1990 Unknown [id number] 2.16.840.1.169892.3.579.2. 593 1990 Unknown [id number] 2.16.840.1.573395.3.579.2. 593 1990 Unknown [id number] 2.16.840.1.373050.3.579.2. 593 1990 Unknown [id number] 2.16.840.1.460969.3.579.2. 593 1990 Unknown [id number] 2.16.840.1.593427.3.579.2. 593 1990 Unknown [id number] 2.16.840.1.498534.3.579.2. 593 1990 Unknown [id number] 2.16.840.1.148368.3.579.2. 593 1990 Unknown [id number] 2.16.840.1.281352.3.579.2. 593 1990 Unknown [id number] 2.16.840.1.774205.3.579.2. 593 1990 Unknown [id number] 2.16.840.1.771444.3.579.2. 593 1990 Unknown [id number] 2.16.840.1.057899.3.579.2. 593 1990 Unknown [id number] 2.16.840.1.263609.3.579.2. 593 1990 Unknown [id number] 2.16.840.1.409568.3.579.2. 1259 1990 Unknown [id number] 2.16.840.1.637335.3.579.2. 1259 1990 Unknown [id number] 2.16.840.1.266338.3.579.2. 1259 1990 Unknown [id number] 2.16.840.1.208553.3.579.2. 1259 1959 Unknown [id number] Unknown [id number] 2.16.840.1.723165.3.579.2. 531 Unknown [id number] 2.16.840.1.687239.3.579.2. 531 Unknown [id number] 2.16.840.1.663797.3.579.2. 531 Social History Date Type Detail Facility Start: 07-30-2022 End: 09-01-2024 Tobacco smoking status Never smoked tobacco (finding) [facility] [place] Start: 09-01-2024 End: 10-26-2024 Sex Assigned At Female [facility] Start: 1990 Sex Assigned At Female [facility] Start: 09-01-2024 Tobacco use and exposure Smokeless tobacco non-user [facility] Start: 09-01-2024 End: 10-26-2024 Alcoholic beverage intake Ex-drinker (finding) [facility] Start: 09-01-2024 End: 10-26-2024 History of Social function [facility] Start: 2024 Gender identity Identifies as female gender (finding) [facility] Tobacco smoking stat [facility] Tobacco smoking consumption unknown [facility] Start: 09-08-2024 Sex Female (finding) [facility] Goals Date Patient Goal Desired Activity /State Functional Status Date Assessment Result Facility 07-30-2022 Functional Status N/A [facility] [place] Clinical Notes 08-20-2022 to 10-26-2024 Edis Morales DO - 10/26/2024 1:15 PM Zechariah Morales, - 09/21/2024 1:45 PM Zechariah Morales, - 09/14/2024 9:00 AM ESTKerri Spann, SORIN - 09/01/2024 9:45 AM EST Note Date & Type Note Facility 10-26-2024 History of Present illness Narrative Formatting of this note might be differe nt from the original. HPI Patient presents today 1 month postop right hemithyroidectomy for what turned out to be a well contained 1 cm papillary thyroid cancer. Recent lab work shows her TSH is elevated about 5.3. T3-T4 normal. Relevant postoperative physical examination Neck incision healing nicely, no palpable abnormality. Assessment/plan Veronica was seen today for post-op. Diagnoses and all orders for this visit: Malignant neoplasm of thyroid gland (CMS/HCC) (Primary) Comments: I need to drive down her TSH at least for a couple of years. Orders: - T3; Future - T4; Future - TSH; Future - Thyroglobulin; Future - T3 - T4 - TSH - Thyroglobulin - T3; Future - T4; Future - TSH; Future - Thyroglobulin; Future - T3 - T4 - TSH - Thyroglobulin Status post partial thyroidectomy (CMS/HCC) Comments: See above Orders: - T3; Future - T4; Future - TSH; Future - Thyroglobulin; Future - T3 - T4 - TSH - Thyroglobulin - T3; Future - T4; Future - TSH; Future - Thyroglobulin; Future - T3 - T4 - TSH - Thyroglobulin I am going to start her on Synthroid 50 micro g daily, recheck lab work in 45 days and call for any adjustments. Otherwise I will see her back in 3 months with the same and perform surveillance ultrasound at that time. documented in this encounter [facility] 09-21-2024 History of Present illness Narrative Formatting [...] this visit: Malignant neoplasm of thyroid gland ([facility]) (Primary) Comments: I will see the patient back in 1 month with T3, T4, TSH and thyroglobulin. She will need surveillance thereafter. Status post partial thyroidectomy ([facility]) Comments: Patient does not need completion thyroidectomy for this small well contained tumor. Orders: - TSH; Future - T3; Future - T4; Future - Thyroglobulin; Future - TSH - T3 - T4 - Thyroglobulin documented in this encounter [facility] 09-14-2024 History of Present illness Narrative Formatting of this note might be differe nt from the original. mmm documented in this encounter [facility] 09-01-2024 History of Present illness Narrative Formatting of this note might be differe nt from the original. Work note Allergies as of 09/01/2024 - Reviewed 09/01/2024 Allergen Reaction Noted Morphine 08/29/2024 Silver 08/29/2024 Past Medical History: Diagnosis Date BMI 40.0-44.9, adult ([facility]) 08/29/2024 Cervical radiculopathy 08/29/2024 History of pilonidal cyst 08/29/2024 HTN (hypertension) ([facility]) 08/29/2024 Hypercholesteremia ([facility]) 08/29/2024 Insomnia 08/29/2024 Migraines ([facility]) 08/29/2024 Morbid obesity ([facility]) 08/29/2024 Orthostatic hypotension 08/29/2024 Current Outpatient Medications: [...] [facility]. [facility] testing shows the molecular [...] all orders for this visit: Thyroid nodule ([facility]) Comments: Given the above, this almost likely [...] consented to proceed. documented in this encounter [facility] 06-12-2023 Evaluation note Encounter Date Diagnosis [...] Other specified postprocedural states (ICD-10 - Z98.890) [facility] Other 07-26-2023 Evaluation note* Encounter Date Diagnosis Assessment Notes Treatment Notes Treatment Clinical Notes Feb, Crushing injury of right thumb, subsequent encounter (ICD-10 - S67.01XD) Patient instructed to keep cuticle moisturized and pushed back. Activity as tolerated Feb, Injury of nail bed o f finger of right hand, subsequent encounter (ICD-10 - S69.91XD) Feb, Other specified postprocedural states (ICD-10 - Z98.890) [facility] Other 06-01-2023 Evaluation note* Encounter Date Diagnosis [...] Other specified postprocedural states (ICD-10 - Z98.890) [facility] Other 03-21-2023 Evaluation note* Encounter Date Diagnosis [...] Other specified postprocedural states (ICD-10 - Z98.890) [facility] Other 02-28-2023 Evaluation note* Encounter Date Diagnosis Assessment Notes Treatment Notes Treatment Clinical Notes Sep, Crushing injury of right thumb, initial encounter (ICD-10 - S67.01XA) Patient instructed on the use of moisturizer for the nailbed. Return to work note given Sep, Injury of nail bed of right thumb, initial encounter (ICD-10 - S69.91XA) [facility] Other 02-14-2023 Evaluation note* Encounter Date Diagnosis Assessment Notes Treatment Notes Treatment Clinical Notes Sep, Crushing injury of right thumb, initial encounter (ICD-10 - S67.01XA) Patient instructed to continue with current wound care and use of stax splint. Continue off work Sep, Injury of nail bed of right thumb, initial encounter (ICD-10 - S69.91XA) [facility] Other 02-07-2023 Evaluation note* Encounter Date Diagnosis Assessment Notes Treatment Notes Treatment Clinical Notes Sep, Crushing injury of right thumb, initial encounter (ICD-10 - S67.01XA) Patient instructed to continue daily soaking. Rx given for Zofran due to vomitting from narcotics Sep, Injury of nail bed of right thumb, initial encounter (ICD-10 - S69.91XA) [facility] Other 01-31-2023 NotePROCEDURE: XR HAND RT MIN [...] Electronically authenticated by: MYAH LEAL Date: 2022-09-25 07:51[facility]01-18-2023 NoteOPERATIVE NOTE OPERATION DATE: 09/12/2022 PREOPERATIVE [...] in good condition. CC: Patient's family physicianThe [facility] [phone] NoteChief Complaint consultation for RUQ pain HPI [...] morphine (Chest pain) [facility]ia (more content not included)...[facility] Result Comment: Electronically Signed By: SOL ESPINOZA, Sanjay Paredes\Date and Time Signed: 08/20/22 10:27 ESTEvaluation + Plan note No data available for this section [facility] [place] Evaluation noteNo assessment information available [facility] Work Phone: Evaluation noteNo InformationNortKirkbride [facility] Other Evaluation note* Diagnosis Thyroid nodule (CMS/HCC) Nontoxic uninodular goiter documented in this encounter [facility]* Diagnosis Thyroid mass (CMS/HCC)- Primary Unspecified disorder of thyroid documented in this encounter [facility] Healthcare[facility]* Diagnosis Malignant neoplasm of thyroid gland (CMS/HCC)- Primary Malignant neoplasm of thyroid gland Status post partial thyroidectomy (CMS/HCC) Other postprocedural status documented in this encounter [facility] HealthcareEvaluation note* Diagnosis Malignant neoplasm of thyroid gland (CMS/HCC)- Primary Malignant neoplasm of thyroid gland Status post partial thyroidectomy (CMS/HCC) Other postprocedural status documented in this encounter [facility] HealthcareHistory general Narrative - Reported* Type Description Date Medical History depression Medical History bradycardia Medical History tachycardia Surgical History tonsillectomy Surgical History pylenol cysts Surgical History wisdom teeth Surgical History plantar fasciitis, tarsal tunne l x 2 right foot [facility] Other History general Narrative - Reported* Type Description Date Medical History depression Medical History bradycardia Medical History tachycardia Surgical History tonsillectomy Surgical History pylenol cysts Surgical History wisdom teeth Surgical History plantar fasciitis, tarsal tunne l x 2 right foot Surgical History right thumb I & D 09/28/2022 [facility] Other Hospital Discharge instructions No data available for this section [facility] [place] Progress note No data available for this section [facility] [place] Chief Complaint and Reason for Visit Chief [...] Active Bonnie Jeffrey MD Attending Provider Active Site Safety Coordinator Relationship Specialty Start Date End Date Donnell Brooke MD [address] [place] [address] PCP - General Family Medicine 11/18/23 Willa Hanks DO [address] [place] [address] Referring Physician Neurology 11/18/23 Edis Morales DO [address] [place] [address] Otolaryngology 09/01/24 Site Safety Coordinator Relationship Specialty Start Date End Date Donnell Brooke MD [address] [place] [id number] PCP - General Family Medicine 11/18/23 Willa Hanks DO [address] [place] [address] Referring Physician Neurology 11/18/23 Edis Morales DO [address] [place] [address] Otolaryngology 09/01/24 Site Safety Coordinator Relationship Specialty Start Date End Date Donnell Brooke MD [address] [place] [address] PCP - General Family Medicine 11/18/23 Willa Hanks DO [address] [place] [address] Referring Physician Neurology 11/18/23 Edis Morales DO [address] [place] [address] Otolaryngology 09/01/24 Team Status: Inactive Member Role [...] September 07, 2024 End: September 07, 2024 Site Safety Coordinator Relationship Specialty Start Date End Date Donnell Brooke MD [facility] [facility] [place] [address] PCP - General Family Medicine 11/18/23 Willa Hanks DO [address] [place] [address] Referring Physician Neurology 11/18/23 Edis Morales DO [address] [place] [address] Otolaryngology 09/01/24 Site Safety Coordinator Relationship Specialty Start Date End Date Donnell Brooke MD [address] [place] [address] PCP - General Family Medicine 11/18/23 Willa Hanks DO [address] [place] [address] Referring Physician Neurology 11/18/23 Edis Morales, [address] [place] [address] Otolaryngology 09/01/24 Site Safety Coordinator Relationship Specialty Start Date End Date Donnell Brooke MD [address] [place] [address] PCP - General Family Medicine 11/18/23 Willa Hanks DO [address] [place] [address] Referring Physician Neurology 11/18/23 Edis Morales, [address] [place] [address] Otolaryngology 09/01/24 Site Safety Coordinator Relationship Specialty Start Date End Date Donnell Brooke MD [address] [place] [address] PCP - General Family Medicine 11/18/23 Willa Hanks DO [address] [place] [address] Referring Physician Neurology 11/18/23 Edis Morales, [address] [place] [address] Otolaryngology 09/01/24 Goals (unrecognized section and content) Goals may be documented in a n alternate section INFORMATION SOURCE (unrecogn ized section and content) DATE CREATED AUTHOR 09/29/2022 [facility] DATE CREATED AUTHOR AUTHOR'S ORGANIZ ATION 12/01/2022 [facility] DATE CREATED AUTHOR AUTHOR'S ORGANIZ ATION 10/03/2024 [facility] DATE CREATED AUTHOR AUTHOR'S ORGANIZ ATION 10/27/2024 [facility] EPIC REASON FOR VISIT (unrecogniz ed section and content) Reason Comments Thyroid Nodule New Patient : Thyroi d nodule / FNA done Reason Comments Post-op Post op right thyroi d Reason Comments Post-op 1 month vira right t hyroid FOR RECORDS PERTAINING TO PATIENTS WHO ARE [...] BE BASED ON THE PRIMARY CLINICAL RECORDS. [employer] provides no warranty or guarantee of the accuracy or completeness of information in this document.
[2024-11-30 17:47] LABS: Alanine Aminotransferase 29 U/L (14-59); Albumin Level 3.6 g/dL (3.4-5.0); Alkaline Phosphatase 80 U/L (46-116); Anion Gap 11.5; Aspartate Amino Transferase 16 U/L (15-37); Bilirubin Total 0.3 mg/dL (0.2-1.0); Calcium 8.6 mg/dL (8.5-10.1); Carbon Dioxide 30.2 mmol/L (21.0-32.0); Chloride 104 mmol/L (98-107); Estimated GFR (African America >60 (>=60 mL/min/1.73m^2); Estimated GFR (Non-African Ame 50 (>=60 mL/min/1.73m^2); Free T3 2.39 pg/mL (2.18-3.98); Globulin 3.5 g/dL; Glucose 108 mg/dL (74-106); Potassium 3.7 mmol/L (3.5-5.1); Sodium 142 mmol/L (136-145); Total Protein 7.1 g/dL (6.4-8.2)
== END 2024-11-30 15:21 | disposition home or self-care (01) ==
PROVIDERS: PCP Family Medicine; Visit Provider Family Medicine
DX: E04.9 Nontoxic goiter, unspecified (principal); E86.0 Dehydration; C73 Malignant neoplasm of thyroid gland; E89.0 Postprocedural hypothyroidism
CPT/HCPCS: 36415; 80053; 84432; 84436; 84443; 84480; 84481

== ENCOUNTER 2024-11-30 15:26 | Outpatient (OUT) | payer OTHER, SELFPAY ==
[2024-11-30 16:28] LABS: Thyroid Stimulating Hormone 3.459 uIU/mL (0.358-3.740)
[2024-12-01 04:07] LABS: Triiodothyronine (T3) 83 ng/dL (71-180)
== END 2024-11-30 15:27 | disposition home or self-care (01) ==
LOC: LAB 15:28
PROVIDERS: PCP Family Medicine
DX: E89.0 Postprocedural hypothyroidism (principal); C73 Malignant neoplasm of thyroid gland
CPT/HCPCS: 36415; 84432; 84436; 84443; 84480

== ENCOUNTER 2024-12-04 20:14 | Emergency (ER) | payer OTHER, SELFPAY ==
[2024-12-04 20:19] VITALS: BP 170/100; PULSE 104; TEMP 36.9; O2SAT 98; BMI 46.9
--- OUTSIDE RECORDS SUMMARY | 2024-12-04 20:21 | XMS_ITS | CCD ---
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 Name Role Phone Donnell Brooke Primary Care Physician MD Bonnie Jeffrey Attending Provider [phone] MD Donnell Brooke Primary Care Provider [phone] Edwardo PROVIDERDonnell Referring Unavailabl e NILL, Sanjay Gibbons Attending Unavailable NILL, Sanjay Gibbons Attending Unavailable NILL, Sanjay Gibbons Attending Unavailable NILL, Sanjay Gibbons Attending Unavailable Hoy PROVIDERDonnell Referring Unavailabl e NILL, Sanjay Gibbons Attending Unavailable Bonnie Jeffrey Unavailable MD Bonnie Jeffrey Attending Provider [phone] MD Donnell Brooke Primary Care Provider [phone] MARTH[address] ., DR JACOBO Primary Care [...] Unavailable Donnell Brooke MD Primary Care Provider [phone] Willa Hanks DO Unavailable Edis Morales DO Unavailable [phone] Donnell Brooke MD Primary Care Provider [phone] Donnell Brooke MD Attending Provider [phone] Edis Morales DO Attending Provider Donnell Brooke [...] [morphine] Drug Allergy 3 Chest pain (finding) [facility] General Surgery [place] (20 sources) SILVER; Translations: [SILVER] Allergy to substance 4 INFECTION, Edema, silver wound pack reversed healing, Edema, silver wound pack reversed healing [facility] Comment on above: reversed healing (11 sources) irbesartan; Translations: [irbesartan] Drug Allergy 3 Unknown Reaction [facility] Comment on above: renal failure (1 source) [facility]; Translations: [M[facility]] Propensity to adverse reactions (disorder) [facility] (1 source) Morphine Drug Allergy [facility] Medications Current Medications Medication Drug Class(es) Dates Sig (Normalized) Sig (Original) acebutolol 200 mg oral capsule (20 sources) beta-Adrenergic Ana Start: 09-26-2022 take 1 capsule by mouth in the morning acebutolol (Sectral) 200 MG capsule Take 200 mg by mouth in the morning and 200 mg before bedtime. 08/20/2024 Active Start: 07-27-2022 take 1 capsule by [facility] twice daily acebutolol 200 mg Cap 200 mg = 1 cap(s), Oral, BID, Refills(s) 0 Start Date: 07/27/22 Status: Ordered take 1 capsule by [facility] every twenty-four hours Acebutolol HCl [...] BY MOUTH ONCE DAILY 08/03/2024 Active levonorgestrel 0.665277 mg/hr intrauterine system (3 sources) Progestin, Progestin-containing [...] 1:00am Start: 07-27-2022 take 2 tablets by [facility] at bedtime tiZANidine 4 mg Tab 8 mg = 2 tab(s), Oral, Bedtime, Refills(s) 0 Start Date: 07/27/22 Status: Ordered take 1 capsule by [facility] every eight hours tiZANidine HCl [...] 07-05-2022 Chronic Other aftercare (1 source) 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 Performed By: #### U HCG #### [address] 09-14-2024 L Specimen: [id number] Received: 09/14/24 Status: PHILIP Simmons Num: [id number] Spec Type: Surgical Subm Dr: Edis Morales DO Tissues: A THYROID - Lobe (RT LOBE AND ISTHMUS) Procedures: HE/6, Gross/Micro L5 Age/ Patient Sex Location Account Attending Physician Veronica Ross 34/F [place] [id number] Edis Morales DO SPEC NUM: [id number] RECD: 09/14/24 STATUS: PHILIP SIMMONS NUM: [id number] TAYLOR: 09/14/[address] [facility] DR: Edis Morales DO ENTERED: 09/14/[address] [facility] DR: FILIBERTO TYPE: Surgical DEPT: S ENTERED BY: [id number] RECV BY: [id number] ORDERED: HE/6, Gross/Micro L5 ORDERED: HE/6, Gross/Micro [...] S25 Received: 09/14/24 Status: PHILIP Simmons Num: [id number] Spec Type: Surgical Subm Dr: Edis Morales DO Tissues: A THYROID - Lobe (RT LOBE AND ISTHMUS) Procedures: MEENAKSHIBrittany/Jesse L5 Patient: PernellcandeVeronica [id number] (Continued) Specimen: S2 Received: 09/14/24 (Continued) Pathological Diagnosis (Continued) Signed (signature on file) Shawanda Mckeon MD 09/15/24 1526 Specimen: S2 Received: 09/14/24 Status: PHILIP Simmons Num: [id number] Spec Type: Surgical Subm Dr: Edis Morales DO Tissues: A THYROID - Lobe (RT LOBE AND ISTHMUS) Procedures: Brittany/Jesse L5 Patient: Veronica Ross [id number] (Continued) Specimen: [id number] Received: 09/14/246389 (Continued) Pathological Diagnosis (Continued) Extrathyroidal extension: Not [...] S25 Received: 09/14/24 Status: PHILIP Simmons Num: [id number] Spec Type: Surgical Subm Dr: Edis Morales DO Tissues: A THYROID - Lobe (RT LOBE AND ISTHMUS) Procedures: HE/6, Gross/Micro L5 Patient: Veronica Ross Edwige [id number] (Continued) Specimen: S2 Received: 09/14/24 (Continued) Gross Description (Continued) Signed (signature on file) Shawanda Mckeon MD 09/15/24 1526 Specimen: S2 Received: 09/14/24 Status: PHILIP Simmons Num: (more content not included)... Normal [facility] Basic Metabolic Panelon 08-26 Anion gap [Moles/Vol] 12.6 mmol/L Normal 6.0-15.0 [facility] Comment on above: Performed By: #### P TH, BMP, TSH3 #### [facility] [address] [place] [address] [place] Calcium [Mass/Vol] 9.3 mg/dL Normal 8.6-10.3 [facility] Comment on above: Performed By: #### P TH, BMP, TSH3 #### [facility] [address] [place] [address] [place] Chloride [Moles/Vol] 100 mmol/L Normal 98-107 [facility] Comment on above: Performed By: #### P TH, BMP, TSH3 #### [facility] [address] [place] [address] [place] CO2 [Moles/Vol] 30.1 mmol/L Normal 21.0-31.0 [facility] Comment on above: Performed By: #### P TH, BMP, TSH3 #### [facility] [address] [place] [address] [place] Creatinine [Mass/Vol] 1.10 mg/dL Normal 0.60-1.20 [facility] Comment on above: Performed By: #### P TH, BMP, TSH3 #### [facility] [address] [place] [address] [place] GFR/1.73 sq M.predicted MDRD (S/P/Bld) [Vol rate/Area] mL/min/{1.73_m2} Normal [facility] Comment on above: Performed By: #### P TH, BMP, TSH3 #### [facility] [address] [place] [id number] [place] Glucose [Mass/Vol] 81 mg/dL Normal 70-100 [facility] Comment on above: Result Comment: [place] Glucose Reference Range is dependent on time and content of last meal. Glucose of more than 200 mg/dL in a nonstressed, ambulatory subject supports the diagnosis of Diabetes Mellitus. ADA recommended reference range Performed By: #### P TH, BMP, TSH3 #### [facility] [address] [place] [id number] [place] Potassium [Moles/Vol] 3.7 mmol/L Normal 3.5-5.1 [facility] Comment on above: Performed By: #### P TH, BMP, TSH3 #### [facility] [address] [place] [id number] [place] Sodium [Moles/Vol] 139 mmol/L Normal 136-145 [facility] Comment on above: Performed By: #### P TH, BMP, TSH3 #### [facility] [address] [place] [address] [place] Urea nitrogen [Mass/Vol] 12 mg/dL Normal 7-25 [facility] Comment on above: Performed By: #### P TH, BMP, TSH3 #### [facility] [address] [place] [id number] [place] Calcium [Mass/volume] in Ser um or PlasmaOrdered By: Edis Morales on 09-07-2024 Calcium [Mass/Vol] Calcium [Mass/volume] in Serum or Plasma 8.6-10.3 [facility] Carbon dioxide, total [Moles /volume] in Serum or PlasmaOrdered By: Edis Morales on 09-07-2024 CO2 [Moles/Vol] Carbon dioxide, total [Moles/volume] in Serum or Plasma 21.0-31.0 [facility] Chloride [Moles/volume] in S fernando or PlasmaOrdered By: Edis Morales on 09-07-2024 Chloride [Moles/Vol] Chloride [Moles/volume] in Serum or Plasma 98-107 [facility] Creatinine [Mass/volume] in Serum or PlasmaOrdered By: Edis Morales on 09-07-2024 Creatinine [Mass/Vol] Creatinine [Mass/volume] in Serum or Plasma 0.60-1.20 [facility] Glucose [Mass/volume] in Ser um or PlasmaOrdered By: Edis Morales on 09-07-2024 Glucose [Mass/Vol] Glucose [Mass/volume] in Serum or Plasma 70-100 [facility] Comment on above: ADA recommended refe rence rangeRandom Glucose Reference Range is dependent on time and content of last meal. Glucose of more than 200 mg/dL in a nonstressed, ambulatory subject supports the diagnosis of Diabetes Mellitus. No Panel InformationOrdered By: Edis Morales on 09-07-2024 Estimated GFR (CKD-EPI) > 60.0 mL/Min [facility] Creatinine Clearance (Chem N/A [facility] Parathyrin.intact [Mass/Vol] on 09-07-2024 PARATHYROID HORMONE INTACT 23 pg/mL pg/mL [facility] Parathyrin.intact [Mass/volu me] in Serum or PlasmaOrdered By: Edis Morales on 09-07-2024 Parathyrin.intact [Mass/Vol] Parathyrin.intact [Mass/volume] in Serum or Plasma [facility] Parathyroid Hormone Intacton 09-07-2024 Parathyroid Hormone Intact 23.0 pg/mL Normal [facility] Comment on above: Result Comment: PERF ORMED BY: [place] [address] PATHOLOGIST SONG PLUGGER SHAWANDA MCKEON M.D. Performed By: #### P TH, BMP, TSH3 #### [address] Potassium [Moles/volume] in Serum or PlasmaOrdered By: Edis Morales on 09-07-2024 Potassium [Moles/Vol] Potassium [Moles/volume] in Serum or Plasma 3.5-5.1 [facility] Serum or plasma anion gap de terminationOrdered By: Edis Morales on 09-07-2024 Anion gap [Moles/Vol] Serum or plasma anion gap determination 6.0-15.0 [facility] Sodium [Moles/volume] in Ser um or PlasmaOrdered By: Edis Morales on 09-07-2024 Sodium [Moles/Vol] Sodium [Moles/volume] in Serum or Plasma 136-145 [facility] Thyroid Stimulating Hormoneo n 09-07-2024 TSH Qn 3.14 m[IU]/L Normal 0.45-5.33 [facility] Comment on above: Result Comment: PERF ORMED BY: [facility] [address] [place] [address] PATHOLOGIST SONG PLUGGER SHAWANDA MCKEON M.D. Performed By: #### P TH, BMP, TSH3 #### [facility] [address] Thyrotropin [Units/volume] i n Serum or PlasmaOrdered By: Edis Morales on 09-07-2024 TSH Qn Thyrotropin [Units/volume] in Serum or Plasma 0.45-5.33 [facility] Urea nitrogen [Mass/volume] in Serum or PlasmaOrdered By: Edis Morales on 09-07-2024 Urea nitrogen [Mass/Vol] Urea nitrogen [Mass/volume] in Serum or Plasma 7 [facility] Philip 08-03-2024 L Specimen: [id number] Received: 08/04/24 Status: PHILIP Simmons Num: [id number] Spec Type: Cytology Subm Dr: Donnell Brooke MD Tissues: A FNA SLIDES NOPATH (RT THY NOD) Procedures: Cyto Int and Re, PAPSTN/5 Age/ Patient Sex Location Account Attending Physician Veronica Ross 33/F LABELL [id number] Donnell Brooke MD SPEC NUM: [id number] RECD: 08/04/24 STATUS: PHILIP SIMMONS NUM: [id number] TAYLOR: 08/03/24 DR: Donnell Brooke MD ENTERED: 08/04/[address]: Francesca Marcos SPEC TYPE: Cytology DEPT: OSBALDO NCYT ENTERED BY: [id number] RECV BY: [id number] ORDERED: Cyto Int and Re, PAPSTN/5 ORDERED: Cyto Int and Re, PAPSTN/5 Pathological Diagnosis Right thyroid nodule,?fine needle aspiration:? Suspicious for follicular neoplasm. 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 [place] Category IV Clinical Information Right Thyroid Nodule Gross Description Received fixed is 30 ml very pale pink clear fluid for cytology said to have been obtained as Right Thyroid Nodule. ThinPrep preparations are prepared for microscopic examination. Also received are 4 spray fixed smeared slides for pap and a Veracyte vial stored at -20 for microscopic examination. (/me) CPT Codes 43364 Specimen: [id number] Received: 08/04/24-1147 Status: PHILIP Simmons Num: [id number] Spec Type: Cytology Subm Dr: Donnell Brooke MD Tissues: A FNA SLIDES NOPATH (RT THY NOD) Procedures: Cyto Int and Re, PAPSTN/5 Patient: Veronica Ross [id number] (Continued) Signed (signature on file) Shawanda Mckeon MD 08/05/24 1754 Normal [facility] XR hand RT min 3V*on 023 XR hand RT min 3V* [facility] [employer] Other XR hand RT min 3V* [facility] [employer] Other XR hand RT min 3V* [address] [facility] [employer] Other XR hand RT min 3V* [place] [address] [place] [employer] Other XR hand RT min 3V* XRay Report [employer] Other XR hand RT min 3V* Signed [employer] Other XR hand RT min 3V* Patient: Veronica Ross MR#: [id number] [employer] Other XR hand RT min 3V* 7067 [employer] Other XR hand RT min 3V* : 1990 Acct:[id number] [employer] Other XR hand RT min 3V* Age/Sex: 32 / F ADM Date: 11/13/22 [employer] Other XR hand RT min 3V* Loc: [facility] Room: Type: [facility] [employer] Other XR hand RT min 3V* Attending Dr: Bonnie Jeffrey MD [employer] Other XR hand RT min 3V* Copies to: Bonnie Jeffrey MD [employer] Other XR hand RT min 3V* Ordering Provider: Bonnie Jeffrey MD [employer] Other XR hand RT min 3V* Date of Service: 11/13/22 [employer] Other XR hand RT min 3V* XR/XR hand RT min 3V*: Crushing injury of right thumb, subsequent [employer] Other XR hand RT min 3V* encounter [employer] Other XR hand RT min 3V* XR hand RT min 3V* 11/13/2022 3:49 PM [employer] Other XR hand RT min 3V* SIGNS AND SYMPTOMS: Status post incision and debridement of open fracture of right thumb, follow-up [employer] Other XR hand RT min 3V* PROTOCOL: Frontal, lateral, and oblique radiographs of the right hand [employer] Other XR hand RT min 3V* COMPARISON: 09/25/2022 [employer] Other XR hand RT min 3V* FINDINGS: [employer] Other XR hand RT min 3V* Healing/healed fracture of the distal phalanx of the right thumb. There is no change in alignment. [employer] Other XR hand RT min 3V* The joint spaces are preserved. No significant soft tissue swelling. [employer] Other XR hand RT min 3V* XR/XR hand RT min 3V* [employer] Other XR hand RT min 3V* IMPRESSION: [employer] Other XR hand RT min 3V* Impression dictated by: Kalpesh Murry M.D.11/13/2022 5:23 PM [place] [employer] Other XR hand RT min 3V* Dictation Location: [place] [address] [employer] Other XR hand RT min 3V* Transcribed By: SHAY 11/13/22 [facility] [employer] Other XR hand RT min 3V* Dictated By: Kalpesh Murry II, MD 11/13/22 [facility] [employer] Other XR hand RT min 3V* Signed By: [employer] Other XR hand RT min 3V* 11/13/22 [facility] [employer] Other PROF CHEM 8 (BAS METB)on Anion gap [Moles/Vol] 11.0 mmol/L Normal [facility] Comment on above: Performed By: #### B MP #### [facility] [address] [place] [address] [address] Shemar Armas Calcium [Mass/Vol] 8.8 mg/dL Normal 8.5-10.1 [facility] Comment on above: Performed By: #### B MP #### [facility] [address] [place] [address] [address] Shemar Armas Chloride [Moles/Vol] 100 mmol/L Normal 98-107 [facility] Comment on above: Performed By: #### B MP #### [facility] [address] [place] [address] [address] Shemar Armas CO2 [Moles/Vol] 31.5 mmol/L Normal 21.0-32.0 [facility] Comment on above: Performed By: #### B MP #### [facility] [address] [place] [address] [address] Shemar Armas Creatinine [Mass/Vol] 1.18 mg/dL Critically high 0.55-1.02 [facility] Comment on above: Performed By: #### B MP #### [facility] [address] [address] [address] Shemar Armas EGFR-AF BENINESE >60 Normal >=60 [facility] Comment on above: Performed By: #### B MP #### [facility] [address] [address] [address] Shemar Armas EGFR-NON AF BENINESE 53 mL/min/1.73m2 Critically low >=60 [facility] Comment on above: Performed By: #### B MP #### [facility] [address] [place] [address] [address] Shemar Armas Glucose [Mass/Vol] 89 mg/dL Normal 74-106 [facility] Comment on above: Performed By: #### B MP #### [facility] [address] [place] [address] [address] Shemar Armas Potassium [Moles/Vol] 3.5 mmol/L Normal 3.5-5.1 [facility] Comment on above: Performed By: #### B MP #### [facility] [address] [place] [address] [address] Shemar Armas Sodium [Moles/Vol] 139 mmol/L Normal 136-145 [facility] Comment on above: Performed By: #### B MP #### [facility] [address] [place] [address] [address] Shemar Armas Urea nitrogen [Mass/Vol] 11.0 mg/dL Normal 7.0-18.0 [facility] Comment on above: Performed By: #### B MP #### [facility] [address] [place] [address] [address] Shemar Armas Urea nitrogen/Creatinine [Mass ratio] 9.3 mg/mg Normal [facility] Comment on above: Performed By: #### B MP #### [facility] [address] [address] [address] Shemar Armas HCG ( test) IA.rapi d Ql (U)Ordered By: THOM DUONG on 09-28-2022 HCG ( test) Ql (U) Negative [facility] Albumin [Mass/volume] in Ser um or PlasmaOrdered By: Bonnie Jeffrey on 09-26-2022 Albumin [Mass/Vol] 4.0 g/dL 3.2-5.5 [facility] Basophils Auto (Bld) [#/Vol] Ordered By: Bonnie Jeffrey on 09-26-2022 Basophils (Bld) [#/Vol] 0.1 10*3/uL 0.0-0.2 [facility] Basophils/100 WBC Auto (Bld) Ordered By: Bonnie Jeffrey on 09-26-2022 Basophils/100 WBC (Bld) 1.2 % . [facility] Creatinine and Glomerular fi ltration rate.predicted panel (S/P/Bld)Ordered By: Bonnie Jeffrey on 09-26-2022 Creatinine [Mass/Vol] 1.82 mg/dL 0.44-1.03 [facility] Eosinophils Auto (Bld) [#/Vo l]Ordered By: Bonnie Jeffrey on 09-26-2022 Eosinophils (Bld) [#/Vol] 0.1 10*3/uL 0.0-0.45 [facility] Eosinophils/100 WBC Auto (Bl d)Ordered By: Bonnie Jeffrey on 09-26-2022 Eosinophils/100 WBC (Bld) 0.9 % . [facility] Erythrocyte distribution wid th Auto (RBC) [Ratio]Ordered By: Bonnie Jeffrey on 09-26-2022 Erythrocyte distribution width (RBC) [Ratio] 13.6 % 11.9-15.3 [facility] Estimated glomerular filtrat ion rate (GFR) non- AmericanOrdered By: Bonnie Jeffrey on 09-26-2022 GFR/1.73 sq M.predicted among non-blacks MDRD (S/P/Bld) [Vol rate/Area] 32 mL/Min [facility] Globulin Calc (S) [Mass/Vol] Ordered By: Bonnie Jeffrey on 09-26-2022 Globulin (S) [Mass/Vol] 2.8 g/dL F [facility] Hematocrit Auto (Bld) [Volum e fraction]Ordered By: Bonnie Jeffrey on 09-26-2022 Hematocrit (Bld) [Volume fraction] 40.2 % 34.0-46.4 [facility] Hemoglobin [Mass/volume] in BloodOrdered By: Bonnie Jeffrey on 09-26-2022 Hemoglobin (Bld) [Mass/Vol] 13.3 g/dL 11.8-15.4 [facility] Leukocytes [#/volume] correc franco for nucleated erythrocytes in Blood by Automated counOrdered By: Bonnie Jeffrey on 09-26-2022 WBC corrected for nucl RBC Auto (Bld) [#/Vol] 9.4 10*3/uL 3.8-11.6 [facility] Lymphocytes Auto (Bld) [#/Vo l]Ordered By: Bonnie Jeffrey on 09-26-2022 Lymphocytes (Bld) [#/Vol] 1.7 10*3/uL 1.00-4.8 [facility] Lymphocytes/100 WBC Auto (Bl d)Ordered By: Bonnie Jeffrey on 09-26-2022 Lymphocytes/100 WBC (Bld) 18.1 % . [facility] MCH Auto (RBC) [Entitic mass ]Ordered By: Bonnie Jeffrey on 09-26-2022 MCH (RBC) [Entitic mass] 28.8 pg 24.7-34.3 [facility] MCHC Auto (RBC) [Mass/Vol]Or dered By: Bonnie Jeffrey on 09-26-2022 MCHC (RBC) [Mass/Vol] 33.0 g/dL 32.0-35.0 [facility] MCV Auto (RBC) [Entitic vol] Ordered By: Bonnie Jeffrey on 09-26-2022 MCV (RBC) [Entitic vol] 87.1 fL 80-100 [facility] Monocytes Auto (Bld) [#/Vol] Ordered By: Bonnie Jeffrey on 09-26-2022 Monocytes (Bld) [#/Vol] 0.5 10*3/uL 0.0-0.8 [facility] Monocytes/100 WBC Auto (Bld) Ordered By: Bonnie Jeffrey on 09-26-2022 Monocytes/100 WBC (Bld) 5.8 % . [facility] Neutrophils Auto (Bld) [#/Vo l]Ordered By: Bonnie Jeffrey on 09-26-2022 Neutrophils (Bld) [#/Vol] 7.0 10*3/uL 1.8-7.7 [facility] Neutrophils/100 WBC Auto (Bl d)Ordered By: Bonnie Jeffrey on 09-26-2022 Neutrophils/100 WBC (Bld) 74.0 % . [facility] No Panel InformationOrdered By: Bonnie Jeffrey on 09-26-2022 Estimated GFR () 39 mL/Min [facility] Comment on above: GFR estimated refere nce range: According to KDOQI guidelines, <60 ml/min/1.73m2 is sufficient to diagnose a patient with chronic kidney disease. Pharmacy Creatinine Clearance (Chem N/A [facility] Nucleated erythrocytes [Pres ence] in Blood by Automated countOrdered By: Bonnie Jeffrey on 09-26-2022 Nucleated RBC Auto Ql (Bld) 0.0 /100{WBC} 0-0.5 [facility] Platelet mean volume Auto (B ld) [Entitic vol]Ordered By: Bonnie Jeffrey on 09-26-2022 Platelet mean volume (Bld) [Entitic vol] 7.8 fL 6.3-10.7 [facility] Platelets Auto (Bld) [#/Vol] Ordered By: Bnonie Jeffrey on 09-26-2022 Platelets (Bld) [#/Vol] 335 10*3/uL 150-450 [facility] Protein [Mass/volume] in Ser um or PlasmaOrdered By: Bonnie Jeffrey on 09-26-2022 Protein [Mass/Vol] 6.8 g/dL 6.1-7.9 [facility] RBC Auto (Bld) [#/Vol]Ordere d By: Bonnie Jeffrey on 09-26-2022 RBC (Bld) [#/Vol] 4.62 10*6/uL 3.60-5.00 [facility] Serum or plasma alanine kamara otransferase measurement without P-5'-P (enzymatic activiOrdered By: Bonnie Jeffrey on 09-26-2022 ALT No additional P-5'-P [Catalytic activity/Vol] 19 U/L 10-60 [facility] Serum or plasma albumin/glob ulin mass ratioOrdered By: Bonnie Jeffrey on 09-26-2022 Albumin/Globulin [Mass ratio] 1.4 {ratio} [facility] Serum or plasma alkaline mona sphatase measurement (enzymatic activity/volume)Ordered By: Bonnie Jeffrey on 09-26-2022 ALP [Catalytic activity/Vol] 45 U/L 32-92 [facility] Serum or plasma anion gap de terminationOrdered By: Bonnie Jeffrey on 09-26-2022 Anion gap [Moles/Vol] 13.8 mmol/L 6.0-15.0 [facility] Serum or plasma aspartate am inotransferase measurement (enzymatic activity/volume)Ordered By: Bonnie Jeffrey on 09-26-2022 AST [Catalytic activity/Vol] 17 U/L 10-42 [facility] Serum or plasma calcium sagrario urement (mass/volume)Ordered By: Bonnie Jeffrey on 09-26-2022 Calcium [Mass/Vol] 8.9 mg/dL 8.2-10.2 [facility] Serum or plasma chloride julieta surement (moles/volume)Ordered By: Bonnie Jeffrey on 09-26-2022 Chloride [Moles/Vol] 100 mmol/L 95-114 [facility] Serum or plasma glucose sagrario urement (mass/volume)Ordered By: Bonnie Jeffrey on 09-26-2022 Glucose [Mass/Vol] 86 mg/dL 70-100 [facility] Comment on above: ADA recommended refe rence rangeRandom Glucose Reference Range is dependent on time and content of last meal. Glucose of more than 200 mg/dL in a nonstressed, ambulatory subject supports the diagnosis of Diabetes Mellitus. Serum or plasma potassium me asurement (moles/volume)Ordered By: Bonnie Jeffrey on 09-26-2022 Potassium [Moles/Vol] 3.5 mmol/L 3.5-5.1 [facility] Serum or plasma sodium measu rement (moles/volume)Ordered By: Bonnie Jeffrey on 09-26-2022 Sodium [Moles/Vol] 134 mmol/L 136-146 [facility] Serum or plasma total biliru bin measurement (mass/volume)Ordered By: Bonnie Jeffrey on 09-26-2022 Bilirubin [Mass/Vol] 0.5 mg/dL 0.3-1.2 [facility] Serum or plasma total carbon dioxide measurement (moles/volume)Ordered By: Bonnie Jeffrey on 09-26-2022 CO2 [Moles/Vol] 23.7 mmol/L 22.0-30.0 [facility] Serum or plasma urea nitroge n measurement (mass/volume)Ordered By: Bonnie Jeffrey on 09-26-2022 Urea nitrogen [Mass/Vol] 25 mg/dL 9-23 [facility] WBC Auto (Bld) [#/Vol]Ordere d By: Bonnie Jeffrey on 09-26-2022 WBC (Bld) [#/Vol] 9.4 10*3/uL 3.8-11.6 [facility] Operative Reporton 3 Operative Report [id number] #1.00CD:127 Normal [facility] Pathology Noteon 09-14-2022 Pathology Note [id number]#1.00CD:127 Normal [facility] PREG HCG QUALon 09-12-2022 , QUAL Negative Normal NEGATIVE [facility] Comment on above: Performed By: #### P REG #### [facility] [address] [place] [address] Dr. Shemar Armas Lab Reportson 09-10-2022 Lab Reports [id number] #1.00CD:127 Normal [facility] Covid-19 PCR (CVDTB)on 08-26 SARS-CoV-2 (COVID-19) RNA PADMINI+probe Ql (Unsp spec) Not detected Normal NOT DETECTED [facility] Comment on above: Result Comment: This test is not yet approved or cleared by the [place] FDA. When there are no FDA-approved or cleared tests available, and other criteria are met, FDA can make tests available under an emergency access mechanism called an Emergency Use Authorization (EUA). The EUA for this test is supported by the [place] of Health and Human Service's (HHS's) declaration [...] consistent with SARS-CoV-2. Performed By: #### [facility] #### [facility] [address] [address] [address] Shemar Armas ED Note-Physicianon 08-01-20 ED Note-Physician [id number] #1.00CD:127 Normal [facility] Consent for Procedure/Surger yon 07-31-2022 Consent for Procedure/Surgery [id number] #1.00CD:127 Normal [facility] Physician Referralon 022 Physician Referral [id number] #1.00CD:127 Normal [facility] US SINGLE QUAD RT UPPERon US [...] by: THOM ANGELA Date: 2022-07-09 17:10 Normal [facility] US KIDNEYS BLADDERon 022 US [...] by: THOM ANGELA Date: 2022-07-04 14:26 Normal [facility] CBC AUTO DIFFon 07-02-2022 BASO # 0.1 103/ul Normal 0.0-0.1 [facility] Comment on above: Performed By: #### C BC #### [facility] [address] [place] [address] Dr. Shemar Armas Basophils/100 WBC (Bld) 0.6 % Normal 0.2-2.0 [facility] Comment on above: Performed By: #### C BC #### [facility] [address] [place] [address] Dr. Shemar Armas EO # 0.1 103/ul Normal 0.0-0.7 [facility] Comment on above: Performed By: #### C BC #### [facility] [address] [place] [address] Dr. Shemar Armas Eosinophils/100 WBC (Bld) 0.8 % Critically low 0.9-7.0 [facility] Comment on above: Performed By: #### C BC #### [facility] [address] [place] [address] Dr. Shemar Armas Erythrocyte distribution width (RBC) [Ratio] 14.6 % Normal 11.0-15.0 [facility] Comment on above: Performed By: #### C BC #### [facility] [address] [place] [address] Dr. Shemar Armas Hematocrit (Bld) [Volume fraction] 36.4 % Normal 36.0-48.0 [facility] Comment on above: Performed By: #### C BC #### [facility] [address] [place] [address] Dr. Shemar Armas Hemoglobin (Bld) [Mass/Vol] 12.2 g/dL Normal 12.0-16.0 [facility] Comment on above: Performed By: #### C BC #### [facility] [address] [place] [address] Dr. Shemar Armas IG # 0.04 10e3/ul Critically high 0.00-0.03 [facility] Comment on above: Performed By: #### C BC #### [facility] [address] [place] [address] Dr. Shemar Armas IG % 0.3 % Normal 0.0-0.5 [facility] Comment on above: Performed By: #### C BC #### [facility] [address] [place] [address] Dr. Shemar Armas LYMPH # 2.1 103/ul Normal 1.2-3.8 [facility] Comment on above: Performed By: #### C BC #### [facility] [address] [place] [address] Dr. Shemar Armas Lymphocytes/100 WBC (Bld) 18.7 % Critically low 20.5-60.0 [facility] Comment on above: Performed By: #### C BC #### [facility] [address] [place] [address] Dr. Shemar Armas MANUAL DIFF REQ NO Normal [facility] Comment on above: Performed By: #### C BC #### [facility] [address] [place] [address] Dr. Shemar Armas MCH (RBC) [Entitic mass] 29.6 pg Normal 26.7-34.0 [facility] Comment on above: Performed By: #### C BC #### [facility] [address] [place] [address] Dr. Shemar Armas MCHC (RBC) [Mass/Vol] 33.5 g/dL Normal 29.9-35.2 [facility] Comment on above: Performed By: #### C BC #### [facility] [address] [place] [address] Dr. Shemar Armas MCV (RBC) [Entitic vol] 88.3 fL Normal 81.0-99.0 [facility] Comment on above: Performed By: #### C BC #### [facility] [address] [place] [address] Dr. Shemar Armsa MONO # 0.7 103/ul Normal 0.3-0.8 [facility] Comment on above: Performed By: #### C BC #### [facility] [address] [place] [address] Dr. Shemar Armas Monocytes/100 WBC (Bld) 6.2 % Normal 1.7-12.0 [facility] Comment on above: Performed By: #### C BC #### [facility] [address] [place] [address] Dr. Shemar Armas NEUT # 8.4 103/ul Critically high 1.4-6.5 [facility] Comment on above: Performed By: #### C BC #### [facility] [address] [place] [address] Dr. Shemar Armas Neutrophils/100 WBC (Bld) 73.4 % Normal 43.0-75.0 [facility] Comment on above: Performed By: #### C BC #### [facility] [address] [place] [address] Dr. Shemar Armas Platelet mean volume (Bld) [Entitic vol] 9.2 fL Critically low 9.5-13.5 [facility] Comment on above: Performed By: #### C BC #### [facility] [address] [place] [address] Dr. Shemar Armas PLT 331 103/ul Normal 150-450 [facility] Comment on above: Performed By: #### C BC #### [facility] [address] [place] [address] Dr. Shemar Armas RBC 4.12 106/ul Critically low 4.20-5.40 [facility] Comment on above: Performed By: #### C BC #### [facility] [address] [place] [address] Dr. Shemar Armas WBC 11.4 103/ul Critically high 4.0-11.0 [facility] Comment on above: Performed By: #### C BC #### [facility] [address] [place] [address] Dr. Shemar Armas PROF CHEM 8 (BAS METB)on Anion gap [Moles/Vol] 11.5 mmol/L Normal [facility] Comment on above: Performed By: #### B MP #### [facility] [address] [place] [address] Dr. Shemar Armas Calcium [Mass/Vol] 8.9 mg/dL Normal 8.5-10.1 [facility] Comment on above: Performed By: #### B MP #### [facility] [address] [place] [address] Dr. Shemar Armas Chloride [Moles/Vol] 102 mmol/L Normal 98-107 [facility] Comment on above: Performed By: #### B MP #### [facility] [address] [place] [address] Dr. Shemar Armas CO2 [Moles/Vol] 29.6 mmol/L Normal 21.0-32.0 [facility] Comment on above: Performed By: #### B MP #### [facility] [address] [address] [address] Shemar Armas Creatinine [Mass/Vol] 1.93 mg/dL Critically high 0.55-1.02 [facility] Comment on above: Performed By: #### B MP #### [facility] [address] [address] [address] Shemar Armas EGFR-AF BENINESE 37 mL/min/1.73m2 Critically low >=60 [facility] Comment on above: Performed By: #### B MP #### [facility] [address] [address] [address] Shemar Armas EGFR-NON AF BENINESE 30 mL/min/1.73m2 Critically low >=60 [facility] Comment on above: Performed By: #### B MP #### [facility] [address] [address] [address] Shemar Armas Glucose [Mass/Vol] 93 mg/dL Normal 74-106 [facility] Comment on above: Performed By: #### B MP #### [facility] [address] [address] [address] Shemar Armas Potassium [Moles/Vol] 4.1 mmol/L Normal 3.5-5.1 [facility] Comment on above: Performed By: #### B MP #### [facility] [address] [address] [address] Shemar Armas Sodium [Moles/Vol] 139 mmol/L Normal 136-145 [facility] Comment on above: Performed By: #### B MP #### [facility] [address] [address] [address] Shemar Armas Urea nitrogen [Mass/Vol] 22.0 mg/dL Critically high 7.0-18.0 [facility] Comment on above: Performed By: #### B MP #### [facility] [address] [address] [address] Shemar Armas Urea nitrogen/Creatinine [Mass ratio] 11.4 mg/mg Normal [facility] Comment on above: Performed By: #### B MP #### [facility] [address] [place] [address] Dr. Shemar Armas BNPon 06-29-2022 Natriuretic peptide B (Bld) [Mass/Vol] 159.0 pg/mL Normal <=450.0 [facility] Comment on above: Performed By: #### B MP #### [facility] [address] [place] [address] Dr. Shemar Armas CBC AUTO DIFFon 06-29-2022 BASO # 0.1 103/ul Normal 0.0-0.1 [facility] Comment on above: Performed By: #### P REG #### [facility] [address] [place] [address] Dr. Shemar Armas Basophils/100 WBC (Bld) 0.7 % Normal 0.2-2.0 [facility] Comment on above: Performed By: #### P REG #### [facility] [address] [place] [address] Dr. Shemar Armas EO # 0.1 103/ul Normal 0.0-0.7 [facility] Comment on above: Performed By: #### P REG #### [facility] [address] [place] [address] Dr. Shemar Armas Eosinophils/100 WBC (Bld) 1.4 % Normal 0.9-7.0 [facility] Comment on above: Performed By: #### P REG #### [facility] [address] [place] [address] Dr. Shemar Armas Erythrocyte distribution width (RBC) [Ratio] 14.5 % Normal 11.0-15.0 [facility] Comment on above: Performed By: #### P REG #### [facility] [address] [place] [address] Dr. Shemar Armas Hematocrit (Bld) [Volume fraction] 35.4 % Critically low 36.0-48.0 [facility] Comment on above: Performed By: #### P REG #### [facility] [address] [address] [address] Shemar Armas Hemoglobin (Bld) [Mass/Vol] 11.9 g/dL Critically low 12.0-16.0 [facility] Comment on above: Performed By: #### P REG #### [facility] [address] [address] [address] Shemar Armas IG # 0.05 10e3/ul Critically high 0.00-0.03 [facility] Comment on above: Performed By: #### P REG #### [facility] [address] [address] [address] Shemar Armas IG % 0.5 % Normal 0.0-0.5 [facility] Comment on above: Performed By: #### P REG #### [facility] [address] [place] [address] Dr. Shemar Armas LYMPH # 1.7 103/ul Normal 1.2-3.8 [facility] Comment on above: Performed By: #### P REG #### [facility] [address] [place] [address] Dr. Shemar Armas Lymphocytes/100 WBC (Bld) 17.3 % Critically low 20.5-60.0 [facility] Comment on above: Performed By: #### P REG #### [facility] [address] [place] [address] Dr. Shemar Armas MANUAL DIFF REQ NO Normal [facility] Comment on above: Performed By: #### P REG #### [facility] [address] [address] [address] Shemar Armas MCH (RBC) [Entitic mass] 29.5 pg Normal 26.7-34.0 [facility] Comment on above: Performed By: #### P REG #### [facility] [address] [place] [address] Dr. Shemar Armas MCHC (RBC) [Mass/Vol] 33.6 g/dL Normal 29.9-35.2 [facility] Comment on above: Performed By: #### P REG #### [facility] [address] [address] [address] Shemar Armas MCV (RBC) [Entitic vol] 87.8 fL Normal 81.0-99.0 [facility] Comment on above: Performed By: #### P REG #### [facility] [address] [place] [address] Dr. Shemar Armas MONO # 0.6 103/ul Normal 0.3-0.8 [facility] Comment on above: Performed By: #### P REG #### [facility] [address] [address] [address] Shemar Armas Monocytes/100 WBC (Bld) 6.3 % Normal 1.7-12.0 [facility] Comment on above: Performed By: #### P REG #### [facility] [address] [place] [address] Dr. Shemar Armas NEUT # 7.1 103/ul Critically high 1.4-6.5 [facility] Comment on above: Performed By: #### P REG #### [facility] [address] [place] [address] Dr. Shemar Armas Neutrophils/100 WBC (Bld) 73.8 % Normal 43.0-75.0 [facility] Comment on above: Performed By: #### P REG #### [facility] [address] [place] [address] Dr. Shemar Armas Platelet mean volume (Bld) [Entitic vol] 9.4 fL Critically low 9.5-13.5 [facility] Comment on above: Performed By: #### P REG #### [facility] [address] [place] [address] Dr. Shemar Armas PLT 350 103/ul Normal 150-450 [facility] Comment on above: Performed By: #### P REG #### [facility] [address] [place] [address] Dr. Shemar Armas RBC 4.03 106/ul Critically low 4.20-5.40 [facility] Comment on above: Performed By: #### P REG #### [facility] [address] [place] [address] Dr. Shemar Armas WBC 9.6 103/ul Normal 4.0-11.0 [facility] Comment on above: Performed By: #### P REG #### [facility] [address] [place] [address] Dr. Shemar Armas BASO # 0.0 103/ul Normal 0.0-0.1 [facility] Comment on above: Performed By: #### C BC #### [facility] [address] [place] [address] Dr. Shemar Armas Basophils/100 WBC (Bld) 0.6 % Normal 0.2-2.0 [facility] Comment on above: Performed By: #### C BC #### [facility] [address] [place] [address] Dr. Shemar Armas EO # 0.1 103/ul Normal 0.0-0.7 [facility] Comment on above: Performed By: #### C BC #### [facility] [address] [place] [address] Dr. Shemar Armas Eosinophils/100 WBC (Bld) 1.2 % Normal 0.9-7.0 [facility] Comment on above: Performed By: #### C BC #### [facility] [address] [place] [address] Dr. Shemar Armas Erythrocyte distribution width (RBC) [Ratio] 14.4 % Normal 11.0-15.0 [facility] Comment on above: Performed By: #### C BC #### [facility] [address] [place] [address] Dr. Shemar Armas Hematocrit (Bld) [Volume fraction] 29.3 % Critically low 36.0-48.0 [facility] Comment on above: Performed By: #### C BC #### [facility] [address] [place] [address] Dr. Shemar Armas Hemoglobin (Bld) [Mass/Vol] 9.9 g/dL Critically low 12.0-16.0 [facility] Comment on above: Performed By: #### C BC #### [facility] [address] [place] [address] Dr. Shemar Armas IG # 0.04 10e3/ul Critically high 0.00-0.03 [facility] Comment on above: Performed By: #### C BC #### [facility] [address] [place] [address] Dr. Shemar Armas IG % 0.6 % Critically high 0.0-0.5 [facility] Comment on above: Performed By: #### C BC #### [facility] [address] [place] [address] Dr. Shemar Armas LYMPH # 1.5 103/ul Normal 1.2-3.8 [facility] Comment on above: Performed By: #### C BC #### [facility] [address] [place] [address] Dr. Shemar Armas Lymphocytes/100 WBC (Bld) 20.1 % Critically low 20.5-60.0 [facility] Comment on above: Performed By: #### C BC #### [facility] [address] [place] [address] Dr. Shemar Armas MANUAL DIFF REQ NO Normal [facility] Comment on above: Performed By: #### C BC #### [facility] [address] [place] [address] Dr. Shemar Armas MCH (RBC) [Entitic mass] 29.9 pg Normal 26.7-34.0 [facility] Comment on above: Performed By: #### C BC #### [facility] [address] [place] [address] Dr. Shemar Armas MCHC (RBC) [Mass/Vol] 33.8 g/dL Normal 29.9-35.2 [facility] Comment on above: Performed By: #### C BC #### [facility] [address] [place] [address] Dr. Shemar Armas MCV (RBC) [Entitic vol] 88.5 fL Normal 81.0-99.0 [facility] Comment on above: Performed By: #### C BC #### [facility] [address] [place] [address] Dr. Shemar Armas MONO # 0.5 103/ul Normal 0.3-0.8 [facility] Comment on above: Performed By: #### C BC #### [facility] [address] [place] [address] Dr. Shemar Armas Monocytes/100 WBC (Bld) 7.5 % Normal 1.7-12.0 [facility] Comment on above: Performed By: #### C BC #### [facility] [address] [place] [address] Dr. Shemar Armas NEUT # 5.1 103/ul Normal 1.4-6.5 [facility] Comment on above: Performed By: #### C BC #### [facility] [address] [place] [address] Dr. Shemar Armas Neutrophils/100 WBC (Bld) 70.0 % Normal 43.0-75.0 [facility] Comment on above: Performed By: #### C BC #### [facility] [address] [place] [address] Dr. Shemar Armas Platelet mean volume (Bld) [Entitic vol] 9.2 fL Critically low 9.5-13.5 [facility] Comment on above: Performed By: #### C BC #### [facility] [address] [place] [address] Dr. Shemar Armas PLT 225 103/ul Normal 150-450 [facility] Comment on above: Performed By: #### C BC #### [facility] [address] [place] [address] Dr. Shemar Armas RBC 3.31 106/ul Critically low 4.20-5.40 [facility] Comment on above: Performed By: #### C BC #### [facility] [address] [place] [address] Dr. Shemar Armas WBC 7.2 103/ul Normal 4.0-11.0 [facility] Comment on above: Performed By: #### C BC #### [facility] [address] [place] [address] Dr. Shemar Armas IRONon 06-29-2022 Iron [Mass/Vol] 110.0 ug/dL Normal 50.0-170.0 [facility] Comment on above: Performed By: #### P REG #### [facility] [address] [place] [address] Dr. Shemar Armas PROF 14(COMP METB)on 022 Albumin [Mass/Vol] 4.0 g/dL Normal 3.4-5.0 [facility] Comment on above: Performed By: #### P REG #### [facility] [address] [place] [address] Dr. Shemar Armas Albumin/Globulin [Mass ratio] 1.1 {ratio} Normal [facility] Comment on above: Performed By: #### P REG #### [facility] [address] [place] [address] Dr. Shemar Armas ALP [Catalytic activity/Vol] 57 U/L Normal 46-116 [facility] Comment on above: Performed By: #### P REG #### [facility] [address] [place] [address] Dr. Shemar Armas ALT [Catalytic activity/Vol] 26 U/L Normal 14-59 [facility] Comment on above: Performed By: #### P REG #### [facility] [address] [place] [address] Dr. Shemar Armas Anion gap [Moles/Vol] 10.0 mmol/L Normal [facility] Comment on above: Performed By: #### P REG #### [facility] [address] [place] [address] Dr. Shemar Armas AST [Catalytic activity/Vol] 15 U/L Normal 15-37 [facility] Comment on above: Performed By: #### P REG #### [facility] [address] [place] [address] Dr. Shemar Armas Bilirubin [Mass/Vol] 0.2 mg/dL Normal 0.2-1.0 [facility] Comment on above: Performed By: #### P REG #### [facility] [address] [place] [address] Dr. Shemar Armas Calcium [Mass/Vol] 8.8 mg/dL Normal 8.5-10.1 [facility] [facility] Comment on above: Performed By: #### P REG #### [facility] [address] [address] [address] Shemar Armas Chloride [Moles/Vol] 105 mmol/L Normal 98-107 [facility] Comment on above: Performed By: #### P REG #### [facility] [address] [address] [address] Shemar Armas CO2 [Moles/Vol] 26.8 mmol/L Normal 21.0-32.0 [facility] Comment on above: Performed By: #### P REG #### [facility] [address] [address] [address] Shemar Armas Creatinine [Mass/Vol] 1.60 mg/dL Critically high 0.55-1.02 [facility] Comment on above: Performed By: #### P REG #### [facility] [address] [address] [address] Shemar Armas EGFR-AF BENINESE 46 mL/min/1.73m2 Critically low >=60 [facility] Comment on above: Performed By: #### P REG #### [facility] [address] [address] [address] Shemar Armas EGFR-NON AF BENINESE 38 mL/min/1.73m2 Critically low >=60 [facility] Comment on above: Performed By: #### P REG #### [facility] [address] [address] [address] Shemar Armas Globulin (S) [Mass/Vol] 3.5 g/dL Normal [facility] Comment on above: Performed By: #### P REG #### [facility] [address] [address] [address] Shemar Armas Glucose [Mass/Vol] 98 mg/dL Normal 74-106 [facility] Comment on above: Performed By: #### P REG #### [facility] [address] [address] [address] Shemar Armas Potassium [Moles/Vol] 3.8 mmol/L Normal 3.5-5.1 [facility] Comment on above: Performed By: #### P REG #### [facility] [address] [address] [address] Shemar Armas Protein [Mass/Vol] 7.5 g/dL Normal 6.4-8.2 [facility] Comment on above: Performed By: #### P REG #### [facility] [address] [address] [address] Shemar Armas Sodium [Moles/Vol] 138 mmol/L Normal 136-145 [facility] Comment on above: Performed By: #### P REG #### [facility] [address] [address] [address] Shemar Armas Urea nitrogen [Mass/Vol] 24.0 mg/dL Critically high 7.0-18.0 [facility] Comment on above: Performed By: #### P REG #### [facility] [address] [place] [address] Dr. Shemar Armas Urea nitrogen/Creatinine [Mass ratio] 15.0 mg/mg Normal [facility] Comment on above: Performed By: #### P REG #### [facility] [address] [address] [address] Shemar Armas Albumin [Mass/Vol] 3.3 g/dL Critically low 3.4-5.0 [facility] Comment on above: Performed By: #### B MP #### [facility] [address] [address] [address] Shemar Armas Albumin/Globulin [Mass ratio] 1.1 {ratio} Normal [facility] Comment on above: Performed By: #### B MP #### [facility] [address] [address] [address] Shemar Armas ALP [Catalytic activity/Vol] 55 U/L Normal 46-116 [facility] Comment on above: Performed By: #### B MP #### [facility] [address] [address] [address] Shemar Armas ALT [Catalytic activity/Vol] 21 U/L Normal 14-59 [facility] Comment on above: Performed By: #### B MP #### [facility] [address] [address] [address] Shemar Armas Anion gap [Moles/Vol] 8.1 mmol/L Normal [facility] Comment on above: Performed By: #### B MP #### [facility] [address] [address] [address] Shemar Armas AST [Catalytic activity/Vol] 13 U/L Critically low 15-37 [facility] Comment on above: Performed By: #### B MP #### [facility] [address] [address] [address] Shemar Armas Bilirubin [Mass/Vol] 0.1 mg/dL Critically low 0.2-1.0 [facility] Comment on above: Performed By: #### B MP #### [facility] [address] [address] [address] Shemar Armas Calcium [Mass/Vol] 7.5 mg/dL Critically low 8.5-10.1 [facility] Comment on above: Performed By: #### B MP #### [facility] [address] [address] [address] Shemar Armas Chloride [Moles/Vol] 107 mmol/L Normal 98-107 [facility] Comment on above: Performed By: #### B MP #### [facility] [address] [address] [address] Shemar Armas CO2 [Moles/Vol] 24.5 mmol/L Normal 21.0-32.0 [facility] Comment on above: Performed By: #### B MP #### [facility] [address] [address] [address] Shemar Armas Creatinine [Mass/Vol] 2.03 mg/dL Critically high 0.55-1.02 [facility] Comment on above: Performed By: #### B MP #### [facility] [address] [address] [address] Shemar Armas EGFR-AF BENINESE 35 mL/min/1.73m2 Critically low >=60 [facility] Comment on above: Performed By: #### B MP #### [facility] [address] [address] [address] Shemar Armas EGFR-NON AF BENINESE 29 mL/min/1.73m2 Critically low >=60 [facility] Comment on above: Performed By: #### B MP #### [facility] [address] [address] [address] Shemar Armas Globulin (S) [Mass/Vol] 2.9 g/dL Normal [facility] Comment on above: Performed By: #### B MP #### [facility] [address] [address] [address] Shemar Armas Glucose [Mass/Vol] 111 mg/dL Critically high 74-106 [facility] Comment on above: Performed By: #### B MP #### [facility] [address] [address] [address] Shemar Armas Potassium [Moles/Vol] 3.6 mmol/L Normal 3.5-5.1 [facility] Comment on above: Performed By: #### B MP #### [facility] [address] [place] [address] Dr. Shemar Armas Protein [Mass/Vol] 6.2 g/dL Critically low 6.4-8.2 [facility] Comment on above: Performed By: #### B MP #### [facility] [address] [place] [address] Dr. Shemar Armas Sodium [Moles/Vol] 136 mmol/L Normal 136-145 [facility] Comment on above: Performed By: #### B MP #### [facility] [address] [address] [address] Shemar Armas Urea nitrogen [Mass/Vol] 28.0 mg/dL Critically high 7.0-18.0 [facility] Comment on above: Performed By: #### B MP #### [facility] [address] [place] [address] Dr. Shemar Armas Urea nitrogen/Creatinine [Mass ratio] 13.8 mg/mg Normal [facility] Comment on above: Performed By: #### B MP #### [facility] [address] [place] [address] Dr. Shemar Armas TROPONIN, HIGH SENSITIVITYon 06-29-2022 HSTROP 4.8 pg/mL Normal 4.0-51.3 [facility] Comment on above: Result Comment: CUT- OFF POINTS HAVE BEEN ESTABLISHED BASED ON THE FOURTH UNIVERSAL DEFINITIONS OF MYOCARDIAL INFARCTION. THE UPPER REFERENCE LIMIT (URL) OF TROPONIN, DEFINED THE 99TH PERCENTILE OF cTnI DISTRIBUTION IN A REFERENCE POPULATION, HAS BEEN CONFIRMED THE DECISION THRESHOLD FOR SD DIAGNOSIS. Performed By: #### B MP #### [facility] [address] [place] [address] Dr. Shemar Armas INSULINon 04-27-2022 Insulin 15.8 uIU/mL Normal 2.6-24.9 [facility] Comment on above: Performed By: #### I NSULIN #### [facility] [address] [place] [address] Dr. Shemar Armas T4, T3U, FTI LABCORPon 04-27 Free Thyroxine Index 3.1 Normal 1.2-4.9 [facility] Comment on above: Performed By: #### T HYLC #### [facility] [address] [place] [address] Dr. Shemar Armas T3 Uptake 31 % Normal 24-39 [facility] Comment on above: Performed By: #### T HYLC #### [facility] [address] [place] [address] Dr. Shemar Armas T4 [Mass/Vol] 10.1 ug/dL Normal 4.5-12.0 [facility] Comment on above: Performed By: #### T HYLC #### [facility] [address] [place] [address] Dr. Shemar Armas CBC AUTO DIFFon 04-26-2022 BASO # 0.1 103/ul Normal 0.0-0.1 [facility] Comment on above: Performed By: #### B MP #### [facility] [address] [place] [address] Dr. Shemar Armas Basophils/100 WBC (Bld) 0.7 % Normal 0.2-2.0 [facility] Comment on above: Performed By: #### B MP #### [facility] [address] [place] [address] Dr. Shemar Armas EO # 0.1 103/ul Normal 0.0-0.7 [facility] Comment on above: Performed By: #### B MP #### [facility] [address] [place] [address] Dr. Shemar Armas Eosinophils/100 WBC (Bld) 0.9 % Normal 0.9-7.0 [facility] Comment on above: Performed By: #### B MP #### [facility] [address] [place] [address] Dr. Shemar Armas Erythrocyte distribution width (RBC) [Ratio] 13.7 % Normal 11.0-15.0 [facility] Comment on above: Performed By: #### B MP #### [facility] [address] [place] [address] Dr. Shemar Armas Hematocrit (Bld) [Volume fraction] 41.8 % Normal 36.0-48.0 [facility] Comment on above: Performed By: #### B MP #### [facility] [address] [place] [address] Dr. Shemar Armas Hemoglobin (Bld) [Mass/Vol] 13.9 g/dL Normal 12.0-16.0 [facility] Comment on above: Performed By: #### B MP #### [facility] [address] [place] [address] Dr. Shemar Armas IG # 0.03 10e3/ul Normal 0.00-0.03 [facility] Comment on above: Performed By: #### B MP #### [facility] [address] [place] [address] Dr. Shemar Armas IG % 0.3 % Normal 0.0-0.5 [facility] Comment on above: Performed By: #### B MP #### [facility] [address] [place] [address] Dr. Shemar Armas LYMPH # 1.8 103/ul Normal 1.2-3.8 [facility] Comment on above: Performed By: #### B MP #### [facility] [address] [place] [address] Dr. Shemar Armas Lymphocytes/100 WBC (Bld) 21.0 % Normal 20.5-60.0 [facility] Comment on above: Performed By: #### B MP #### [facility] [address] [place] [address] Dr. Shemar Armas MANUAL DIFF REQ NO Normal [facility] Comment on above: Performed By: #### B MP #### [facility] [address] [place] [address] Dr. Shemar Armas MCH (RBC) [Entitic mass] 28.8 pg Normal 26.7-34.0 [facility] Comment on above: Performed By: #### B MP #### [facility] [address] [place] [address] Dr. Shemar Armas MCHC (RBC) [Mass/Vol] 33.3 g/dL Normal 29.9-35.2 [facility] Comment on above: Performed By: #### B MP #### [facility] [address] [place] [address] Dr. Shemar Armas MCV (RBC) [Entitic vol] 86.7 fL Normal 81.0-99.0 [facility] Comment on above: Performed By: #### B MP #### [facility] [address] [place] [address] Dr. Shemar Armas MONO # 0.7 103/ul Normal 0.3-0.8 [facility] Comment on above: Performed By: #### B MP #### [facility] [address] [place] [address] Dr. Shemar Armas Monocytes/100 WBC (Bld) 7.9 % Normal 1.7-12.0 [facility] Comment on above: Performed By: #### B MP #### [facility] [address] [place] [address] Dr. Shemar Armas NEUT # 6.0 103/ul Normal 1.4-6.5 [facility] Comment on above: Performed By: #### B MP #### [facility] [address] [place] [address] Dr. Shemar Armas Neutrophils/100 WBC (Bld) 69.2 % Normal 43.0-75.0 [facility] Comment on above: Performed By: #### B MP #### [facility] [address] [place] [address] Dr. Shemar Armas Platelet mean volume (Bld) [Entitic vol] 9.7 fL Normal 9.5-13.5 [facility] Comment on above: Performed By: #### B MP #### [facility] [address] [place] [address] Dr. Shemar Armas PLT 322 103/ul Normal 150-450 [facility] Comment on above: Performed By: #### B MP #### [facility] [address] [place] [address] Dr. Shemar Armas RBC 4.82 106/ul Normal 4.20-5.40 [facility] Comment on above: Performed By: #### B MP #### [facility] [address] [place] [address] Dr. Shemar Armas WBC 8.7 103/ul Normal 4.0-11.0 [facility] Comment on above: Performed By: #### B MP #### [facility] [address] [place] [address] Dr. Shemar Armas GLYCOHEMOGLOBIN A1Con 2021 ADA RECOMMENDATION SEE BELOW Normal [facility] Comment on above: Result Comment: ADA RECOMMENDED LIMIT 4.0 - 6.0 ADA THERAPEUTIC TARGET < 7.0 ACTION SUGGESTED > 7.0 Performed By: #### P REG #### [facility] [address] [place] [address] Dr. Shemar Armas Glucose [Mass/Vol] 108 mg/dL Normal [facility] Comment on above: Performed By: #### P REG #### [facility] [address] [place] [address] Dr. Shemar Armas HbA1c (Bld) [Mass fraction] 5.4 % Normal 4.5-6.2 [facility] Comment on above: Performed By: #### P REG #### [facility] [address] [place] [address] Dr. Shemar Armas IRONon 04-26-2022 Iron [Mass/Vol] 55.0 ug/dL Normal 50.0-170.0 [facility] Comment on above: Performed By: #### I CYNDI #### [facility] [address] [address] [address] Shemar Armas LIPID PROFILEon 04-26-2022 CHOL-HDL RATIO NORM SEE BELOW Normal [facility] Comment on above: Result Comment: 3.3 - 4.4 LOW RISK 4.4 - 7.1 AVERAGE RISK 7.1 - 11.0 MODERATE RISK >11.0 HIGH RISK Performed By: #### P REG #### [facility] [address] [address] [address] Shemar Armas Cholesterol [Mass/Vol] 205 mg/dL Critically high <=200 [facility] Comment on above: Performed By: #### P REG #### [facility] [address] [address] [address] Shemar Armas Cholesterol in HDL [Mass/Vol] 57 mg/dL Normal 40-60 [facility] Comment on above: Performed By: #### P REG #### [facility] [address] [address] [address] Shemar Armas Cholesterol in LDL [Mass/Vol] 126.8 mg/dL Normal [facility] Comment on above: Performed By: #### P REG #### [facility] [address] [address] [address] Shemar Armas Cholesterol.total/Viktoriya sterol in HDL [Mass ratio] 3.6 {ratio} Normal [facility] Comment on above: Performed By: #### P REG #### [facility] [address] [address] [address] Shemar Armas HDL NORMAL > or = 60 mg/dl - LOW CARDIOVASCULAR RISK <40 mg/dl - HIGH CARDIOVASCULAR RISK Normal [facility] Comment on above: Performed By: #### P REG #### [facility] [address] [address] [address] Shemar Armas LDL CALC NORMAL SEE BELOW Normal [facility] Comment on above: Result Comment: <100 mg/dl OPTIMAL 100 - 129 mg/dl NEAR OR ABOVE OPTIMAL 130 - 159 mg/dl BORDERLINE HIGH 160 - 189 mg/dl HIGH >190 mg/dl VERY HIGH Performed By: #### P REG #### [facility] [address] [place] [address] Dr. Shemar Armas Triglyceride [Mass/Vol] 106 mg/dL Normal <=150 [facility] Comment on above: Performed By: #### P REG #### [facility] [address] [address] [address] Shemar Armas VLDL CALC 21.2 mg/dL Normal [facility] Comment on above: Performed By: #### P REG #### [facility] [address] [place] [address] Dr. Shemar Armas PROF 14(COMP METB)on 022 Albumin [Mass/Vol] 4.3 g/dL Normal 3.4-5.0 [facility] Comment on above: Performed By: #### T SH, CMP, LIPID #### [facility] [address] [place] [address] Dr. Shemar Armas Albumin/Globulin [Mass ratio] 1.2 {ratio} Normal [facility] Comment on above: Performed By: #### T SH, CMP, LIPID #### [facility] [address] [place] [address] Dr. Shemar Armas ALP [Catalytic activity/Vol] 62 U/L Normal 46-116 [facility] Comment on above: Performed By: #### T SH, CMP, LIPID #### [facility] [address] [place] [address] Dr. Shemar Armas ALT [Catalytic activity/Vol] 34 U/L Normal 14-59 [facility] Comment on above: Performed By: #### T SH, CMP, LIPID #### [facility] [address] [place] [address] Dr. Shemar Armas Anion gap [Moles/Vol] 13.7 mmol/L Normal [facility] Comment on above: Performed By: #### T SH, CMP, LIPID #### [facility] [address] [address] [address] Shemar Armas AST [Catalytic activity/Vol] 22 U/L Normal 15-37 [facility] Comment on above: Performed By: #### T SH, CMP, LIPID #### [facility] [address] [place] [address] Dr. Shemar Armas Bilirubin [Mass/Vol] 0.3 mg/dL Normal 0.2-1.0 [facility] Comment on above: Performed By: #### T SH, CMP, LIPID #### [facility] [address] [place] [address] Dr. Shemar Armas Calcium [Mass/Vol] 9.1 mg/dL Normal 8.5-10.1 [facility] Comment on above: Performed By: #### T SH, CMP, LIPID #### [facility] [address] [place] [address] Dr. Shemar Armas Chloride [Moles/Vol] 98 mmol/L Normal 98-107 [facility] Comment on above: Performed By: #### T SH, CMP, LIPID #### [facility] [address] [place] [address] Dr. Shemar Armas CO2 [Moles/Vol] 29.9 mmol/L Normal 21.0-32.0 [facility] Comment on above: Performed By: #### T SH, CMP, LIPID #### [facility] [address] [place] [address] Dr. Shemar Armas Creatinine [Mass/Vol] 1.27 mg/dL Critically high 0.55-1.02 [facility] Comment on above: Performed By: #### T SH, CMP, LIPID #### [facility] [address] [place] [address] Dr. Shemar Armas EGFR-AF BENINESE 59 mL/min/1.73m2 Critically low >=60 [facility] Comment on above: Performed By: #### T SH, CMP, LIPID #### [facility] [address] [place] [address] Dr. Shemar Armas EGFR-NON AF BENINESE 49 mL/min/1.73m2 Critically low >=60 [facility] Comment on above: Performed By: #### T SH, CMP, LIPID #### [facility] [address] [address] [address] Shemar Armas Globulin (S) [Mass/Vol] 3.6 g/dL Normal [facility] Comment on above: Performed By: #### T SH, CMP, LIPID #### [facility] [address] [address] [address] Shemar Armas Glucose [Mass/Vol] 92 mg/dL Normal 74-106 [facility] Comment on above: Performed By: #### T SH, CMP, LIPID #### [facility] [address] [place] [address] Dr. Shemar Armas Potassium [Moles/Vol] 3.6 mmol/L Normal 3.5-5.1 [facility] Comment on above: Performed By: #### T SH, CMP, LIPID #### [facility] [address] [place] [address] Dr. Shemar Armas Protein [Mass/Vol] 7.9 g/dL Normal 6.4-8.2 [facility] Comment on above: Performed By: #### T SH, CMP, LIPID #### [facility] [address] [place] [address] Dr. Shemar Armas Sodium [Moles/Vol] 138 mmol/L Normal 136-145 [facility] Comment on above: Performed By: #### T SH, CMP, LIPID #### [facility] [address] [place] [address] Dr. Shemar Armas Urea nitrogen [Mass/Vol] 16.0 mg/dL Normal 7.0-18.0 [facility] Comment on above: Performed By: #### T SH, CMP, LIPID #### [facility] [address] [place] [address] Dr. Shemar Armas Urea nitrogen/Creatinine [Mass ratio] 12.6 mg/mg Normal [facility] Comment on above: Performed By: #### T SH, CMP, LIPID #### [facility] [address] [place] [address] Dr. Shemar Armas TSHon 04-26-2022 TSH 3.031 uIU/mL Normal 0.358-3.740 [facility] Comment on above: Performed By: #### P REG #### [facility] [address] [place] [address] Dr. Shemar Armas Vital Signs Date Time Vital Sign Value Performing Clinician Facility 10-26-2024 13:18-0500 Body height 160 cm Edis Murcek DO Work Phone: [facility] 10-26-2024 13:18-0500 Body mass index (BMI) [Ratio] 48.36 kg/m2 Edis Murcek DO Work Phone: [facility] 10-26-2024 13:18-0500 Body weight 123.83 kg Edis Murcek DO Work Phone: [facility] 09-21-2024 13:40-0500 Body height 160 cm Edis Murcek DO Work Phone: [facility] 09-21-2024 13:40-0500 Body mass index (BMI) [Ratio] 48.36 kg/m2 Edis Murcek DO Work Phone: [facility] 09-21-2024 13:40-0500 Body weight 123.83 kg Edis Murcek DO Work Phone: [facility] 09-01-2024 09:39-0500 Body height 160 cm Edis Murcek DO Work Phone: [facility] 09-01-2024 09:39-0500 Body mass index (BMI) [Ratio] 48.36 kg/m2 Edis Murcek DO Work Phone: [facility] 09-01-2024 09:39-0500 Body weight 123.83 kg Edis Murcek DO Work Phone: [facility] 10-02-2022 16:00-0500 Body height 160.02 cm Bonnie Jeffrey Other [employer] Other 10-02-2022 16:00-0500 Body mass index (BMI) [Ratio] 42.69 kg/m2 Bonnie Jeffrey Other Merged With [facility] [employer] Other 10-02-2022 16:00-0500 Body weight 109.32 kg Bonnie Jeffrey Other Merged With [facility] [employer] Other 09-28-2022 15:55-0500 Diastolic blood pressure 60 mm[Hg] MD Donnell Brooke Work Phone: [facility] 09-28-2022 15:55-0500 Heart rate 76 /min MD Donnell Brooke Work Phone: [facility] 09-28-2022 15:55-0500 Respiratory rate 16 /min MD Donnell Brooke Work Phone: [facility] 09-28-2022 15:55-0500 SaO2% (BldA) [Mass fraction] 98 % MD Donnell Brooke Work Phone: [facility] 09-28-2022 15:55-0500 Systolic blood pressure 123 mm[Hg] MD Donnell Brooke Work Phone: [facility] 09-28-2022 14:33-0500 Body height 162.56 cm MD Donnell Brooke Work Phone: [facility] 09-28-2022 14:33-0500 Body mass index (BMI) [Ratio] 41.6 kg/m2 MD Donnell Brooke Work Phone: [facility] 09-28-2022 14:33-0500 Body weight 110 kg MD Donnell Brooke Work Phone: [facility] 09-28-2022 12:25-0500 Body temperature 98 [degF] MD Donnell Brooke Work Phone: [facility] 07-30-2022 15:29-0500 Blood Pressure Location Sanjay ZUÑIGA [facility] [place] 07-30-2022 15:29-0500 Diastolic blood pressure 83 mm[Hg] Sanjay NILL [facility] [place] 07-30-2022 15:29-0500 Heart rate 75 /min Sanjay NILL [facility] 07-30-2022 15:29-0500 Respiratory rate 16 /min Sanjay NILL [facility] 07-30-2022 15:29-0500 Systolic blood pressure 124 mm[Hg] Sanjay NILL [facility] Encounters Encounter Date Encounter Type Care [...] Start: 09-14-2024 End: 09-14-2024 ambulatory Donnell Brooke Facility:[facility] Start: 09-07-2024 End: 09-07-2024 External Result Encounter Edis Morales DO Work Phone: [facility] Unsolicited Start: 09-07-2024 End: 09-07-2024 External Result Encounter Edis Morales DO Work Phone: [facility] External [facility] Unsolicited Start: 09-07-2024 End: 09-07-2024 Patient encounter procedure Donnell Brooke MD Work Phone: [facility] Work Phone: Start: 09-07-2024 End: 09-07-2024 ambulatory Donnell Brooke MD Work Phone: [facility] Work Phone: Start: 09-07-2024 Encounter for preprocedural laboratory examination Edis Morales [facility] Start: 09-01-2024 End: 09-01-2024 Bamboo [...] Start: 08-03-2024 End: 08-03-2024 ambulatory Donnell Brooke Facility:[facility] Start: 08-03-2024 End: 08-03-2024 Departed Referred Donnell Brooke MD Work Phone: [facility] Start: 06-12-2023 End: 06-12-2023 ambulatory Bonnie Calvey Other [employer] Other Start: 06-12-2023 Office outpatient vi sit 15 minutes Bonnie Calvey [facility] Start: 03-20-2023 End: 03-20-2023 ambulatory Bonnie Calvey Other [employer] Other Start: 03-20-2023 Office outpatient vi sit 15 minutes Bonnie Calvey [facility] Start: 01-24-2023 End: 01-24-2023 ambulatory Bonnie Calvey Other [employer] Other Start: 01-24-2023 Office outpatient vi sit 15 minutes Bonnie Calvey [facility] Start: 11-13-2022 End: 11-13-2022 Patient encounter procedure MD Donnell Brooke Work Phone: [facility] Start: 11-13-2022 End: 11-13-2022 ambulatory MD Donnell Brooke Work Phone: [facility] Work Phone: Start: 11-13-2022 Postop follow up vis it related to original px Bonnie Calvey [facility] Start: 10-23-2022 End: 10-23-2022 ambulatory Bonnie Calvey Other [employer] Other Start: 10-23-2022 Postop follow up vis it related to original px Bonnie Calvey [facility] Start: 10-10-2022 End: 10-11-[address] DONNELL BROOKE . Facility: Start: 10-09-2022 End: 10-09-2022 ambulatory Bonnie Calvyaniv Other [employer] Other Start: 10-09-2022 Postop follow up vis it related to original px Bonnie Calvey [facility] Start: 10-02-2022 End: 10-02-2022 ambulatory Bonnie Calvey Other [employer] Other Start: 10-02-2022 Postop follow up vis it related to original px Bonnie Calvey [facility] Start: 10-02-2022 Telephone encounter Bonnie Calvey [facility] Start: 09-28-2022 End: 09-28-2022 Admission to same day surgery center MD Donnell Brooke Work Phone: [facility] [place] Start: 09-26-2022 End: 09-26-2022 ambulatory MD Donnell Brooke Work Phone: [facility] Work Phone: Start: 09-26-2022 End: 09-26-2022 Patient encounter procedure MD Donnell Brooke Work Phone: [facility] Work Phone: Start: 09-25-2022 End: 09-25-[address] DONNELL BROOKE . Facility: Start: 09-21-2022 ambulatory Sanjay ZUÑIGA Facility :[facility] Start: 09-14-2022 Encounter for preprocedural laboratory examination DR SANJAY ZUÑIGA . [facility] Start: 09-12-2022 End: 09-13-2022 ambulatory Sanjay ZUÑIGA Facility:CD:[id number] Start: 09-11-2022 End: 10-06-[address] DONNELL BROOKE . Facility:[facility] Start: 09-07-2022 End: 09-08-[address] DONNELL BROOKE . Facility:[facility] Start: 09-07-2022 End: 09-08-2022 Encounter for preprocedural laboratory examination DR DONNELL BROOKE . Facility:[facility] Start: 07-30-2022 End: 07-31-2022 ambulatory Donnell Brooke PROVIDER Facility:[facility] Start: 07-30-2022 End: 07-30-2022 Patient encounter procedure Sanjay ZUÑIGA [facility] [place] Start: 07-10-2022 ambulatory Donnell Brooke PROVIDER Facility:[facility] Start: 07-09-2022 End: 07-10-[address] [...] DR DONNELL BROOKE . [facility] Start: 04-26-2022 End: 04-27-[address] [...] Visit [facility] [place] [address] [place] [address] Edis Morales, DO [address] [place] [address] [facility] [place] Start: 01-26-2025 End: 10-26-2025 Thyroglobulin Thyroglobulin Lab Routine Malignant neoplasm of thyroid gland (CMS/HCC) Status post partial thyroidectomy (CMS/HCC) Expected: 01/26/2025 (Approximate), Expires: 10/26/2025 [facility] Comment on above: Expected: 01/26/2025 (Approximate), Expires: 10/26/2025 Start: 01-26-2025 End: 10-26-2025 Thyrotropin [Units/volume] in Serum or Plasma [facility] Comment on above: Expected: 01/26/2025 (Approximate), Expires: 10/26/2025 Start: 01-26-2025 End: 10-26-2025 Triiodothyronine (T3) [Mass/volume] in Serum or Plasma T3 Lab Routine Malignant neoplasm of thyroid gland (CMS/HCC) Status post partial thyroidectomy (CMS/HCC) Expected: 01/26/2025 (Approximate), Expires: 10/26/2025 [facility] Comment on above: Expected: 01/26/2025 (Approximate), Expires: 10/26/2025 Start: 12-10-2024 End: 10-26-2025 Thyroglobulin Thyroglobulin Lab Routine Malignant neoplasm of thyroid gland (CMS/HCC) Status post partial thyroidectomy (CMS/HCC) Expected: 12/10/2024 (Approximate), Expires: 10/26/2025 [facility] Comment on above: Expected: 12/10/2024 (Approximate), Expires: 10/26/2025 Start: 12-10-2024 End: 10-26-2025 Thyrotropin [Units/volume] in Serum or Plasma [facility] Comment on above: Expected: 12/10/2024 (Approximate), Expires: 10/26/2025 Start: 12-10-2024 End: 10-26-2025 Triiodothyronine (T3) [Mass/volume] in Serum or Plasma T3 Lab Routine Malignant neoplasm of thyroid gland (CMS/HCC) Status post partial thyroidectomy (CMS/HCC) Expected: 12/10/2024 (Approximate), Expires: 10/26/2025 [facility] Work Phone: Comment on above: Expected: 12/10/2024 (Approximate), Expires: 10/26/2025 Start: 10-26-2024 End: 10-26-2024 Patient encounter procedure [facility] Comment on above: Arrived Start: 10-19-2024 End: 09-21-2025 Thyroglobulin Thyroglobulin Lab Routine Status post partial thyroidectomy (CMS/HCC) Expected: 10/19/2024 (Approximate), Expires: 09/21/2025 [facility] Comment on above: Expected: 10/19/2024 (Approximate), Expires: 09/21/2025 Start: 10-19-2024 End: 09-21-2025 Thyrotropin [Units/volume] in Serum or Plasma [facility] Work Phone: Comment on above: Expected: 10/19/2024 (Approximate), Expires: 09/21/2025 Start: 10-19-2024 End: 09-21-2025 Triiodothyronine (T3) [Mass/volume] in Serum or Plasma T3 Lab Routine Status post partial thyroidectomy (CMS/HCC) Expected: 10/19/2024 (Approximate), Expires: 09/21/2025 [facility] Comment on above: Expected: 10/19/2024 (Approximate), Expires: 09/21/2025 Start: 09-21-2024 End: 09-21-2024 Patient encounter procedure [facility] Comment on above: Arrived Start: 09-01-2024 End: 09-01-2025 Calcium [Mass/volume] in Serum or Plasma Calcium Lab Routine Thyroid nodule (CMS/HCC) Expected: 09/01/2024 (Approximate), Expires: 09/01/2025 [facility] Comment on above: Expected: 09/01/2024 (Approximate), Expires: 09/01/2025 Start: 09-01-2024 End: 09-01-2025 Parathyrin.intact [Mass/volume] in Serum or Plasma PTH, intact Lab Routine Thyroid nodule (CMS/HCC) Expected: 09/01/2024 (Approximate), Expires: 09/01/2025 [facility] Work Phone: Comment on above: Expected: 09/01/2024 (Approximate), Expires: 09/01/2025 Start: 09-01-2024 End: 09-01-2025 Thyrotropin [Units/volume] in Serum or Plasma TSH Lab Routine Thyroid nodule (CMS/HCC) Expected: 09/01/2024 (Approximate), Expires: 09/01/2025 [facility] Comment on above: Expected: 09/01/2024 (Approximate), Expires: 09/01/2025 Start: 09-01-2024 End: 09-01-2024 Patient encounter procedure 09/01/2024 9:45 AM EST Office Visit [facility] [address] [place] [address] Edis Morales, [address] [place] [address] Arrived [facility] Comment on above: Arrived Start: 09-28-2022 [facility] Start: 09-28-2022 [facility] Basic metabolic 1998 panel - Serum or Plasma Basic metabolic panel Lab Routine 09/07/2024 11:55 AM EST [facility] Work Phone: [facility] referral [facility] Work Phone: Immunizations Immunization Date Immunization Notes Care Provider Fa cility 05-27-2024 Seasonal, trivalent, recombinant, injectable influenza vaccine, preservative free Edis Morales DO Work Phone: [facility] 05-05-2021 influenza virus vaccine, unspecified formulation Edis Morales DO Work Phone: [facility] 04-28-2020 influenza, injectable, quadrivalent, preservative free Edis Morales DO Work Phone: [facility] NEGATED: Highlighted row has not occurred!07-30-2022 influenza virus vaccine, unspecified formulation Sanjay ZUÑIGA [facility] [place] Payers Date Payer Category Payer Self-pay 2022 Private Health Insurance [employer] [id number] 2022 Unknown [id number] 1990 Unknown [id number] 2.16.840.1.466892.3.579.2. 727 1990 Unknown [id number] 2.16.840.1.706638.3.579.2. 727 1990 Unknown [id number] 2.16.840.1.587692.3.579.2. 727 1990 Unknown [id number] 2.16.840.1.462090.3.579.2. 727 1990 Unknown [id number] 2.16.840.1.447873.3.579.2. 727 1990 Unknown [id number] 2.16.840.1.425208.3.579.2. 593 1990 Unknown [id number] 2.16.840.1.124569.3.579.2. 593 1990 Unknown [id number] 2.16.840.1.676204.3.579.2. 593 1990 Unknown [id number] 2.16.840.1.265378.3.579.2. 593 1990 Unknown [id number] 2.16.840.1.049568.3.579.2. 593 1990 Unknown [id number] 2.16.840.1.053589.3.579.2. 593 1990 Unknown [id number] 2.16.840.1.448548.3.579.2. 593 1990 Unknown [id number] 2.16.840.1.260805.3.579.2. 593 1990 Unknown [id number] 2.16.840.1.599037.3.579.2. 593 1990 Unknown [id number] 2.16.840.1.357027.3.579.2. 593 1990 Unknown [id number] 2.16.840.1.646376.3.579.2. 593 1990 Unknown [id number] 2.16.840.1.291246.3.579.2. 593 1990 Unknown [id number] 2.16.840.1.888203.3.579.2. 1259 1990 Unknown [id number] 2.16.840.1.343505.3.579.2. 1259 1990 Unknown [id number] 2.16.840.1.313059.3.579.2. 1259 1990 Unknown [id number] 2.16.840.1.766308.3.579.2. 1259 1959 Unknown [id number] Unknown [id number] 2.16.840.1.560470.3.579.2. 531 Unknown [id number] 2.16.840.1.079532.3.579.2. 531 Unknown [id number] 2.16.840.1.507550.3.579.2. 531 Social History Date Type Detail Facility Start: 07-30-2022 End: 09-01-2024 Tobacco smoking status Never smoked tobacco (finding) [facility] [place] Start: 09-01-2024 End: 10-26-2024 Sex Assigned At Female [facility] Start: 1990 Sex Assigned At Female [facility] Start: 09-01-2024 Tobacco use and exposure Smokeless tobacco non-user [facility] Start: 09-01-2024 End: 10-26-2024 Alcoholic beverage intake Ex-drinker (finding) [facility] Start: 09-01-2024 End: 10-26-2024 History of Social function [facility] Start: 2024 Gender identity Identifies as female gender (finding) [facility] Tobacco smoking stat [facility] Tobacco smoking consumption unknown [facility] Start: 09-08-2024 Sex Female (finding) [facility] Goals Date Patient Goal Desired Activity /State Functional Status Date Assessment Result Facility 07-30-2022 Functional Status N/A Ronnie [facility] [place] Clinical Notes 08-20-2022 to 10-26-2024 Edis Morales [...] at that time. documented in this encounter [facility] 09-21-2024 History of Present illness Narrative Formatting [...] this visit: Malignant neoplasm of thyroid gland ([facility]) (Primary) Comments: I will see the patient back in 1 month with T3, T4, TSH and thyroglobulin. She will need surveillance thereafter. Status post partial thyroidectomy ([facility]) Comments: Patient does not need completion thyroidectomy for this small well contained tumor. Orders: - TSH; Future - T3; Future - T4; Future - Thyroglobulin; Future - TSH - T3 - T4 - Thyroglobulin documented in this encounter [facility] 09-14-2024 History of Present illness Narrative Formatting of this note might be differe nt from the original. mmm documented in this encounter [facility] 09-01-2024 History of Present illness Narrative Formatting of this note might be differe nt from the original. Work note Allergies as of 09/01/2024 - Reviewed 09/01/2024 Allergen Reaction Noted Morphine 08/29/2024 Silver 08/29/2024 Past Medical History: Diagnosis Date BMI 40.0-44.9, [place] 08/29/2024 Cervical radiculopathy 08/29/2024 History of pilonidal cyst 08/29/2024 HTN (hypertension) [place] 08/29/2024 Hypercholesteremia ([facility]) 08/29/2024 Insomnia 08/29/2024 Migraines [place] 08/29/2024 Morbid obesity [place] 08/29/2024 Orthostatic hypotension 08/29/2024 [...] Patient underwent a recent [facility]. Molecular testing shows the molecular [...] all orders for this visit: Thyroid nodule (CMS/[facility]) Comments: Given the above, this almost likely [...] consented to proceed. documented in this encounter [facility] 06-12-2023 Evaluation note Encounter Date Diagnosis Assessment [...] Other specified postprocedural states (ICD-10 - Z98.890) [employer] Other 07-26-2023 Evaluation note* Encounter Date Diagnosis Assessment Notes Treatment Notes Treatment Clinical Notes Feb, Crushing injury of right thumb, subsequent encounter (ICD-10 - S67.01XD) Patient instructed to keep cuticle moisturized and pushed back. Activity as tolerated Feb, Injury of nail bed o f finger of right hand, subsequent encounter (ICD-10 - S69.91XD) Feb, Other specified postprocedural states (ICD-10 - Z98.890) [employer] Other 06-01-2023 Evaluation note* Encounter Date Diagnosis [...] Other specified postprocedural states (ICD-10 - Z98.890) [employer] Other 03-21-2023 Evaluation note* Encounter Date Diagnosis [...] Other specified postprocedural states (ICD-10 - Z98.890) [employer] Other 02-28-2023 Evaluation note* Encounter Date Diagnosis Assessment Notes Treatment Notes Treatment Clinical Notes Sep, Crushing injury of right thumb, initial encounter (ICD-10 - S67.01XA) Patient instructed on the use of moisturizer for the nailbed. Return to work note given Sep, Injury of nail bed of right thumb, initial encounter (ICD-10 - S69.91XA) [employer] Other 02-14-2023 Evaluation note* Encounter Date Diagnosis Assessment Notes Treatment Notes Treatment Clinical Notes Sep, Crushing injury of right thumb, initial encounter (ICD-10 - S67.01XA) Patient instructed to continue with current wound care and use of stax splint. Continue off work Sep, Injury of nail bed of right thumb, initial encounter (ICD-10 - S69.91XA) [employer] Other 02-07-2023 Evaluation note* Encounter Date Diagnosis Assessment Notes Treatment Notes Treatment Clinical Notes Sep, Crushing injury of right thumb, initial encounter (ICD-10 - S67.01XA) Patient instructed to continue daily soaking. Rx given for Zofran due to vomitting from narcotics Sep, Injury of nail bed of right thumb, initial encounter (ICD-10 - S69.91XA) [employer] Other 01-31-2023 NotePROCEDURE: XR HAND RT MIN [...] Electronically authenticated by: MYAH LEAL Date: 2022-09-25 07:51[facility]01-18-2023 NoteOPERATIVE NOTE OPERATION DATE: [...] condition. CC: [id number] NoteChief Complaint consultation for RUQ pain HPI [...] morphine (Chest pain) [employer] (more content not included)...[facility] Result Comment: Electronically Signed By: SOL ESPINOZA, Sanjay Paredes\Date and Time Signed: 08/20/22 10:27 ESTEvaluation + Plan note No data available for this section [facility] [place] Evaluation noteNo assessment information available [facility] Work Phone: Evaluation noteNo InformationNortLifecare [facility] [employer] Other Evaluation note* Diagnosis Thyroid nodule (CMS/HCC) Nontoxic uninodular goiter documented in this encounter [facility] Healthcare[facility] note* Diagnosis Thyroid mass (CMS/HCC)- Primary Unspecified disorder of thyroid documented in this encounter [facility] Healthcare[facility]* Diagnosis Malignant neoplasm of thyroid gland (CMS/HCC)- Primary Malignant neoplasm of thyroid gland Status post partial thyroidectomy (CMS/HCC) Other postprocedural status documented in this encounter [facility] note* Diagnosis Malignant neoplasm of thyroid gland (CMS/HCC)- Primary Malignant neoplasm of thyroid gland Status post partial thyroidectomy (CMS/HCC) Other postprocedural status documented in this encounter [facility] HealthcareHistory general Narrative - Reported* Type Description Date Medical History depression Medical History bradycardia Medical History tachycardia Surgical History tonsillectomy Surgical History pylenol cysts Surgical History wisdom teeth Surgical History plantar fasciitis, tarsal tunne l x 2 right foot [employer] Other History general Narrative - Reported* Type Description Date Medical History depression Medical History bradycardia Medical History tachycardia Surgical History tonsillectomy Surgical History pylenol cysts Surgical History wisdom teeth Surgical History plantar fasciitis, tarsal tunne l x 2 right foot Surgical History right thumb I & D 09/28/2022 [employer] Other Hospital Discharge instructions No data available for this section [facility] [place] Progress note No data available for this section [facility] [place] Chief Complaint and Reason for Visit Chief [...] Active Bonnie Jeffrey MD Attending Provider Active 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 Relationship Specialty Start Date End Date Donnell Brooke MD [address] [place] [address] PCP - General Family Medicine 11/18/23 Willa Hanks DO [address] [place] [address] Referring Physician Neurology 11/18/23 Edis Morales DO [address] [place] [address] Otolaryngology 09/01/24 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 Relationship Specialty Start Date End Date Donnell Brooke MD [address] [place] [address] PCP - General Family Medicine 11/18/23 Willa Hanks DO [address] [place] [address] Referring Physician Neurology 11/18/23 Edis Morales DO [address] [place] [address] Otolaryngology 09/01/24 [employer]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 Relationship Specialty Start Date End Date Donnell Brooke MD [address] [place] [address] PCP - General Family Medicine 11/18/23 Willa Hanks DO [address] [place] [address] Referring Physician Neurology 11/18/23 Edis Morales, [address] [place] [address] Otolaryngology 09/01/24 [employer] 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 Relationship Specialty Start Date End Date Donnell Brooke MD [address] [place] [address] PCP - General Family Medicine 11/18/23 Willa Hanks DO [address] [place] [address] Referring Physician Neurology 11/18/23 Edis Morales, [address] [place] [address] Otolaryngology 09/01/24 [employer]vi 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 Relationship Specialty Start Date End Date Donnell Brooke MD [address] [place] [address] PCP - General Family Medicine 11/18/23 Willa Hanks DO [address] [place] [address] Referring Physician Neurology 11/18/23 Edis Morales, [address] [place] [address] Otolaryngology 09/01/24 Goals (unrecognized section and content) Goals may be documented in a n alternate section INFORMATION SOURCE (unrecogn ized section and content) DATE CREATED AUTHOR 09/29/2022 [facility] DATE CREATED AUTHOR AUTHOR'S ORGANIZ ATION 12/01/2022 [facility] DATE CREATED AUTHOR AUTHOR'S ORGANIZ ATION 10/03/2024 [facility] DATE CREATED AUTHOR AUTHOR'S ORGANIZ ATION 10/27/2024 [facility] Special[facility] EPIC REASON FOR VISIT (unrecogniz [...] BE BASED ON THE PRIMARY CLINICAL RECORDS. [employer] provides no warranty or guarantee of the accuracy or completeness of information in this document.
--- NOTE | 2024-12-04 20:24 | ED.LOWEXI1 ---
HPI HPI - Extremity Injury (Lower) General Chief Complaint: Extremity Injury, Lower Stated Complaint: FALL-KNEE PAIN Time Seen by Provider: 12/04/24 20:15 History of Present Illness HPI Narrative: Patient is a 34-year-old female pertinent history of thyroid cancer and partial thyroidectomy who presents with concerns of right knee pain. Patient states this morning around 9 AM she tripped and struck her right knee. She denies any head or neck injury. She has a hannah on her left forehead that she reports is from several weeks ago. Patient states she works from home and wanted to finish her shift before coming in for evaluation she noticed increased swelling and limited range of motion localized to the right knee joint. She denies any pain to the ankle or hip. Pain is moderate to severe worse with weightbearing initially anterior and now involving medial and lateral joint lines. She denies a history of hypercalcemia but has had hypokalemia in the past but is currently taking medication. Patient took Tylenol earlier today prior to arrival. She denies chance of stating copper IUD. Patient had ice pack applied on arrival MD complaint: Reports knee injury Onset (ago): hour(s) (11) Injury: Right: knee Type of Injury: Reports blunt Place: Reports home Severity: moderate Relieving factors: Reports nothing Exacerbating factors: Reports weight bearing and movement Context: Reports direct blow Associated symptoms: Reports swelling Other symptoms: Reports none; Denies loss of consciousness, chest pain, SOB or nausea/vomiting Related Data Home Medications ?Medication ?Instructions ?Recorded ?Confirmed acebutolol 200 mg capsule 200 mg PO BID 06/09/23 12/04/24 oxaprozin 600 mg tablet 600 mg PO DAILY 06/09/23 08/03/24 pantoprazole 40 mg tablet,delayed 40 mg PO Q12H 06/09/23 06/09/23 release phentermine 37.5 mg capsule 37.5 mg PO DAILY 06/09/23 06/09/23 tizanidine 4 mg tablet 8 mg PO BEDTIME 06/09/23 08/03/24 trazodone 50 mg tablet 50 mg PO BEDTIME 06/09/23 06/09/23 triamterene 75 1 tab PO DAILY 06/09/23 12/04/24 mg-hydrochlorothiazide 50 mg tablet duloxetine 60 mg capsule,delayed 60 mg PO DAILY 07/21/24 12/04/24 release ugmfe-eie-itdapslxxv-C-zinc 6 ml PO PRN for illness 07/21/24 gram-38 mg-25 mg-34 mg/5 mL oral syrup lamotrigine 100 mg tablet 300 mg PO DAILY 07/21/24 12/04/24 pantoprazole 20 mg tablet,delayed 20 mg PO Q12H 07/21/24 12/04/24 release potassium chloride 20 mEq 40 meq PO DAILY 07/21/24 12/04/24 tablet,extended release(part/cryst) (Klor-Con M) sucralfate 1 gram tablet 1 g PO .before meals 07/21/24 12/04/24 cholecalciferol (vitamin D3) 50 2,000 unit PO DAILY 12/04/24 12/04/24 mcg (2,000 unit) capsule (Vitamin D3) ferrous sulfate 325 mg (65 mg 650 mg PO DAILY 12/04/24 12/04/24 iron) tablet tizanidine 4 mg tablet 4 mg PO TID neck pain 12/04/24 12/04/24 Previous Rx's ?Medication ?Instructions ?Recorded tobramycin 0.3 % eye drops 1 drp ophthalmic (eye) Q4H #5 mL 01/20/24 tramadol 50 mg tablet 50 mg PO TID PRN pain 3 days #9 01/20/24 tabs dicyclomine 10 mg capsule 10 mg PO QID PRN abdominal pain 03/26/24 #12 caps ondansetron 4 mg disintegrating 4 mg PO Q8H PRN nausea and 03/26/24 tablet vomiting 4 days #16 tabs ondansetron 4 mg disintegrating 4 mg PO Q6H PRN nausea and 09/12/24 tablet vomiting #10 tabs prednisone 20 mg tablet 40 mg (2 x 20 mg) PO DAILY 5 days 12/04/24 #10 tabs Allergies Allergy/AdvReac Type Severity Reaction Status Date / Time irbesartan Allergy Severe hypotension Verified 12/04/24 20:26 and renal insufficiency silver Allergy Severe Hives Verified 12/04/24 20:26 Opioid HPI Opioid Management Most Recent Pain and Opioid Data: Last Pain Scale 8 12/04/24 21:11 12/04/24 Ur Phencyclidine Scrn Negative (NEGATIVE) 06/09/23 08:00 06/09/23 Review of Systems ROS Constitutional Denies: fever or chills Eyes Denies: change in vision Ears, nose, mouth, and throat Reports: neck pain (Baseline takes muscle relaxant at bedtime denies new injury); Denies: throat pain Cardiovascular Denies: chest pain, palpitations or edema Respiratory Denies: shortness of breath or cough Gastrointestinal Denies: abdominal pain or nausea Musculoskeletal Reports: limited range of motion (right knee) and joint swelling (right knee) Integumentary/Breast Denies: rash or itching Neurological Denies: headache Psychiatric Reports: other (tx for bipolar depression- pt reports is stable. ); Denies: anxiety Endocrine Denies: excessive urination Hematologic/Lymphatic Denies: easy bruising PFSH PFSH Medical History (Updated 12/04/24 @ 20:57 by DENZEL Gonzalez) Thyroid cancer ?C73 - Malignant neoplasm of thyroid gland (ICD-10) Anxiety and depression ?F41.9 - Anxiety disorder, unspecified (ICD-10) ?F32.A - Depression, unspecified (ICD-10) Acute intractable headache ?R51.9 - Headache, unspecified (ICD-10) Surgical History (Updated 08/03/24 @ 11:12 by Samantha Porter) H/O fine needle aspiration with imaging guidance ?Z98.890 - Other specified postprocedural states (ICD-10) H/O thumb surgery ?Z98.890 - Other specified postprocedural states (ICD-10) History of excision of pilonidal cyst ?Z98.890 - Other specified postprocedural states (ICD-10) H/O fasciotomy ?Z98.890 - Other specified postprocedural states (ICD-10) [place] teeth removed ?K08.409 - Partial loss of teeth, unspecified cause, unspecified class (ICD-10) History of tonsillectomy and adenoidectomy ?Z90.89 - Acquired absence of other organs (ICD-10) Social History Smoking status: Never smoker Little interest or pleasure in doing things: not at all Feeling down, depressed, or hopeless: not at all Exam Narrative Exam Narrative: Vital signs reviewed and nurse's notes. The patient is not hypoxic. General: Alert, no acute distress, patient resting comfortably Skin: warm, intact, no pallor noted Head: Normocephalic, atraumatic, remote bruise left forehead. Eye: Normal conjunctiva, no exudates Respiratory: No acute distress, lungs CTA Musculoskeletal: No evidence of deformity to the right knee. There is mild amount of swelling localized to right knee concerning for effusion. left knee unremarkable.no prepatellar bursitis. There is no ecchymosis. No erythema or warmth noted. DP and PT pulses are intact 2+. Normal sensation, normal capillary refill less than 2 seconds. There is no cyanosis or mottling noted. The patient has tenderness to anterior and medial aspect of the right knee. The patient has pain with effusion limiting tolerance of varus or valgus stressing. 2 degrees hyperextension but no laxity with knee in extension. Flexion only to 40 degrees secondary to pain anterior knee. PROM is painless 0-40, SLR intact. No tenderness noted to the 5th MT, midfoot, ankle or proximal fibular area. There is no pain with calcaneal squeeze, Achilles tendon is intact and no defect is palpated. The patient has no pelvic instability. The patient has no shortening or rotation noted to the bilateral lower extremities. No pain with palpation of hip/ pelvis or left ankle. Neurological: alert and orient x4, normal sensory and motor observed. Psychiatric: Cooperative MDM - Extremity Injury (Lower) MDM Narrative Medical decision making narrative: Ice applied on arrival , pt agreeable to IM toradol for pain. Xray preformed. Preliminary review of the x-ray shows some mild arthritic changes and flattening articular surface medial joint line these were nonweightbearing x-rays there is no visible fracture mild effusion. Formal interpretation is pending. Patient concerned about pain and getting sleep tonight she is agreeable to 1 [place] tablet here and will be placed on a prednisone burst as she cannot tolerate oral NSAIDs secondary to GI upset and renal disease. We discussed a follow-up to orthopedics on Saturday patient will call for appointment. She has crutches at home but will be cautious not to cause any additional falls we discussed nonweightbearing to toe-touch weightbearing as symptoms tolerate she is to focus on ice and elevation. Patient states she works from home and does not require a work note. We discussed utilization of the knee brace for immobilization she may remove to sleep if needed and to focus on ice and elevation. Recommend she wear the brace with any activity for support pending orthopedic follow-up. Risks and benefits of oral steroid discussed The patient is to followup with Dr. Brooke in next 5-7 days ( contact orthopedics on Saturday for appt: ) or to return to the emergency department should any of the signs or symptoms worsen or new symptoms develop. Patient had questions answered. The patient agrees with the following Diagnosis and Treatment plan and the patient will be discharged home. Discharge Plan Discharge Chief Complaint: Extremity Injury, Lower Clinical Impression: Acute pain of right knee, Effusion of knee joint right Patient Disposition: Home, Self-Care Time of Disposition Decision: 20:57 Condition: Good Mode of Transportation: Private Vehicle Prescriptions / Home Meds: New prednisone 20 mg tablet 40 mg PO DAILY 5 Days Qty: 10 0RF No Action tobramycin 0.3 % drops 1 drp ophthalmic (eye) Q4H Qty: 5 0RF Rx Instructions: please apply to the left eye tramadol 50 mg tablet 50 mg PO TID PRN (Reason: pain) 3 Days Qty: 9 0RF dicyclomine 10 mg capsule 10 mg PO QID PRN (Reason: abdominal pain) Qty: 12 0RF ondansetron 4 mg tablet,disintegrating 4 mg PO Q8H PRN (Reason: nausea and vomiting) 4 Days Qty: 16 0RF duloxetine 60 mg capsule,delayed release(DR/EC) 60 mg PO DAILY lamotrigine 100 mg tablet 300 mg PO DAILY sucralfate 1 gram tablet 1 g PO .before meals pantoprazole 20 mg tablet,delayed release (DR/EC) 20 mg PO Q12H arvoj-phj-rovwykfwox-C-zinc 6 gram-38 mg- 25 mg-34 mg/5mL syrup PO PRN (Reason: for illness) potassium chloride [Klor-Con M20] 20 mEq tablet,ER particles/crystals 40 meq PO DAILY ondansetron 4 mg tablet,disintegrating 4 mg PO Q6H PRN (Reason: nausea and vomiting) Qty: 10 0RF tizanidine 4 mg tablet 4 mg PO TID cholecalciferol (vitamin D3) [Vitamin D3] 50 mcg (2,000 unit) capsule 2,000 unit PO DAILY ferrous sulfate 325 mg (65 mg iron) tablet 650 mg PO DAILY acebutolol 200 mg capsule 200 mg PO BID oxaprozin 600 mg tablet 600 mg PO DAILY pantoprazole 40 mg tablet,delayed release (DR/EC) 40 mg PO Q12H phentermine 37.5 mg capsule 37.5 mg PO DAILY tizanidine 4 mg tablet 8 mg PO BEDTIME trazodone 50 mg tablet 50 mg PO BEDTIME triamterene-hydrochlorothiazid 75-50 mg tablet 1 tab PO DAILY Print Language: Togolese Instructions: Swollen Knee Joint (ED), Knee Pain (ED) Additional Instructions: Call Dr. Zhu's office Saturday for appt ICE/ Elevate and use of crutches May remove brace to sleep if needed. Referrals: Felipe Brooke MD [Primary Care Provider] - 1 week Paulino Zhu MD [Physician] - As soon as possible Discharge Date/Time: 12/04/24 21:25 Procedures ED Ortho Splinting/Casting Orthopedic Splinting/Casting Injury #1: Additional comments: Splint Application: The patient was placed in a 19 inch Velcro right knee immobilizer splint. The patient was neurovascularly intact post application of the splint. Pt notes it to be well fitting.
[2024-12-04] MEDS: KETOROLAC TROMETHAMINE 60 MG/2 ML VIAL IM (20:45)
[2024-12-04] MEDS: PREDNISONE 20 MG TABLET 40 MG PO (21:11)
[2024-12-04] MEDS: HYDROCODONE/ACET 5-325 MG TABLET 1 TAB PO (21:11)
[2024-12-04 21:21] VITALS: BP 164/92; PULSE 79; O2SAT 99
== END 2024-12-04 21:25 | disposition home or self-care (01) ==
PROVIDERS: Emergency Provider Emergency Medicine; PCP Family Medicine
DX: M25.461 Effusion, right knee (principal); M25.561 Pain in right knee; C73 Malignant neoplasm of thyroid gland
CPT/HCPCS: 73564; 96372; 99284; J1885; J7512

== ENCOUNTER 2024-12-14 14:31 | Outpatient (OUT) | payer OTHER, SELFPAY ==
--- OUTSIDE RECORDS SUMMARY | 2024-12-14 14:43 | XMS_ITS | CCD ---
Author Organization [facility] CliniSyal Care Team Providers Care Bilingual Case Manager Name Role Phone Donnell Brooke Primary Care Physician MD Bonnie Jeffrey Attending Provider [phone] MD Donnell Brooke Primary Care Provider [phone] Edwardo PROVIDERDonnell Referring Unavailabl e NILL, Sanjay Gibbons Attending Unavailable NILL, Sanjay Gibbons Attending Unavailable NILL, Sanjay Gibbons Attending Unavailable NILL, Sanjay Gibbons Attending Unavailable Hoy PROVIDERDonnell Referring Unavailabl e NILL, Sanjay Gibbons Attending Unavailable Bonnie Jeffrey Unavailable MD Bonnie Jeffrey Attending Provider MD Donnell Brooke Primary Care Provider [phone] MARTHAY ., DR JACOBO Primary Care [...] DR JACOBO Admitting Unavailable HOY ., DR JCAOBO Primary Care Unavailable DIAB ., SOHAIL Admitting Unavailable DIAB ., SOHAIL Attending Unavailable REINECK, DR SUJEY Anthony Consulting Unavailabl e ELVIS, DR MYAH Gibbons Consulting Unavailable DIAB ., SOHAIL Consulting Unavailable MARKER ., DR VEGA Admitting Unavailable MARKER ., DR VEGA Consulting Unavailable HOY ., DR JACOBO Primary Care Unavailable MARKER ., DR VEGA Attending Unavailable Donnell Brooke MD Primary Care Provider [phone] Willa Hanks DO Unavailable Edis Morales DO Unavailable Donnell Brooke MD Primary Care Provider [phone] Donnell Brooke MD Attending Provider [phone] Edis Morales DO Attending Provider [phone] Donnell Brooke Primary Care Unavailable MurstevenkEdis Attending Unavailable Murcek, Edis Admitting Unavailable Hoy, Odnnell M Primary Care Unavailable Hoy, Donnell M [...] [morphine] Drug Allergy 3 Chest pain (finding) [facility] [place] (20 sources) SILVER; Translations: [SILVER] Allergy to substance 4 INFECTION, Edema, silver wound pack reversed healing, Edema, silver wound pack reversed healing [facility] Comment on above: reversed healing (11 sources) irbesartan; Translations: [irbesartan] Drug Allergy 3 Unknown Reaction [facility] Comment on above: renal failure (1 source) MORPHINE SUBSTITUTE; Translations: [MORPHINE SUBSTITUTE] Propensity to adverse reactions (disorder) [facility] Repository (1 source) Morphine Drug Allergy [facility] Medications Current Medications Medication Drug Class(es) Dates Sig (Normalized) Sig (Original) acebutolol 200 mg oral capsule (20 sources) beta-Adrenergic Ana Start: 09-26-2022 take 1 capsule by mouth in the morning acebutolol (Sectral) 200 MG capsule Take 200 mg by mouth in the morning and 200 mg before bedtime. 08/20/2024 Active Start: 07-27-2022 take 1 capsule by [facility] twice daily acebutolol 200 mg Cap 200 mg = 1 cap(s), Oral, BID, Refills(s) 0 Start Date: 07/27/22 Status: Ordered take 1 capsule by [facility] every twenty-four hours Acebutolol HCl 200 [...] BY MOUTH ONCE DAILY 08/03/2024 Active levonorgestrel 0.723017 mg/hr intrauterine system (3 sources) Progestin, Progestin-containing [...] 1:00am Start: 07-27-2022 take 2 tablets by [facility] at bedtime tiZANidine 4 mg Tab 8 mg = 2 tab(s), Oral, Bedtime, Refills(s) 0 Start Date: 07/27/22 Status: Ordered take 1 capsule by [facility] every eight hours tiZANidine HCl 4 [...] 07-05-2022 Chronic Other aftercare (1 source) Other manager terminal (current) drug therapy; Translations: [OTH PURCHASING ANALYST CURRENT DRUG THERAPY] Onset: 09-18-2022 Episodic Other [...] ( test) Ql (U) Negative Normal [facility] Comment on above: Result Comment: PERF ORMED BY: [place] [address] PATHOLOGIST DIESEL MECHANIC HELPER SHAWANDA MCKEON M.D. Performed By: #### U HCG #### [address] 09-14-2024 L Specimen: [id number] Received: 09/14/24 Status: PHILIP Simmons Num: [id number] Spec Type: Surgical Subm Dr: Edis Morales DO Tissues: A THYROID - Lobe (RT LOBE AND ISTHMUS) Procedures: HE/6, Gross/Micro L5 Age/ Patient Sex Location Account Attending Physician Veronica Ross 34/F [place] [id number] Edis Morales DO SPEC NUM: [id number] RECD: 09/14/24 STATUS: PHILIP SIMMONS NUM: [id number] TAYLOR: 09/14/24 [facility] DR: Edis Morales DO ENTERED: 09/14/[address] [facility] DR: FILIBERTO TYPE: Surgical DEPT: S ENTERED BY: [id number] RECV BY: [id number] ORDERED: HE/6, Gross/Micro L5 ORDERED: HE/6, Gross/Micro [...] S25 Received: 09/14/24 Status: PHILIP Simmons Num: [id number] Spec Type: Surgical Subm Dr: Edis Morales DO Tissues: A THYROID - Lobe (RT LOBE AND ISTHMUS) Procedures: MEENAKSHIBrittany/Jesse L5 Patient: PernellcandeVeronica [id number] (Continued) Specimen: S2 Received: 09/14/24 (Continued) Pathological Diagnosis (Continued) Signed (signature on file) Shawanda Mckeon MD 09/15/24 1526 Specimen: S2 Received: 09/14/24 Status: PHILIP Simmons Num: [id number] Spec Type: Surgical Subm Dr: Edis Morales DO Tissues: A THYROID - Lobe (RT LOBE AND ISTHMUS) Procedures: Brittany/Jesse L5 Patient: Veronica Ross [id number] (Continued) Specimen: [id number] Received: 09/14/247435 (Continued) Pathological Diagnosis (Continued) Extrathyroidal extension: Not [...] S25 Received: 09/14/24 Status: PHILIP Simmons Num: [id number] Spec Type: Surgical Subm Dr: Edis Morales DO Tissues: A THYROID - Lobe (RT LOBE AND ISTHMUS) Procedures: HE/6, Gross/Micro L5 Patient: Veronica Ross Edwige [id number] (Continued) Specimen: S2 Received: 09/14/24 (Continued) Gross Description (Continued) Signed (signature on file) Shawanda Mckeon MD 09/15/24 1526 Specimen: S2 Received: 09/14/24 Status: PHILIP Simmons Num: (more content not included)... Normal [facility] Basic Metabolic Panelon 08-26 Anion gap [Moles/Vol] 12.6 mmol/L Normal 6.0-15.[address] [facility] Comment on above: Performed By: #### P TH, BMP, TSH3 #### [facility] [address] [place] [address] [place] Calcium [Mass/Vol] 9.3 mg/dL Normal 8.6-10.3 [facility] Comment on above: Performed By: #### P TH, BMP, TSH3 #### [facility] [address] [place] [address] [place] Chloride [Moles/Vol] 100 mmol/L Normal 98-107 [facility] Comment on above: Performed By: #### P TH, BMP, TSH3 #### [facility] [address] [place] [address] [place] CO2 [Moles/Vol] 30.1 mmol/L Normal 21.0-31.0 [facility] Comment on above: Performed By: #### P TH, BMP, TSH3 #### [facility] [address] [place] [address] [place] Creatinine [Mass/Vol] 1.10 mg/dL Normal 0.60-1.20 [facility] Comment on above: Performed By: #### P TH, BMP, TSH3 #### [facility] [address] [place] [address] [place] GFR/1.73 sq M.predicted MDRD (S/P/Bld) [Vol rate/Area] mL/min/{1.73_m2} Normal [facility] Comment on above: Performed By: #### P TH, BMP, TSH3 #### [facility] [address] [place] [id number] [place] Glucose [Mass/Vol] 81 mg/dL Normal 70-100 [facility] Comment on above: Result Comment: [place] Glucose Reference Range is dependent on time and content of last meal. Glucose of more than 200 mg/dL in a nonstressed, ambulatory subject supports the diagnosis of Diabetes Mellitus. ADA recommended reference range Performed By: #### P TH, BMP, TSH3 #### [facility] [address] [place] [id number] [place] Potassium [Moles/Vol] 3.7 mmol/L Normal 3.5-5.1 [facility] Comment on above: Performed By: #### P TH, BMP, TSH3 #### [facility] [address] [place] [id number] [place] Sodium [Moles/Vol] 139 mmol/L Normal 136-145 [facility] Comment on above: Performed By: #### P TH, BMP, TSH3 #### [facility] [address] [place] [address] [place] Urea nitrogen [Mass/Vol] 12 mg/dL Normal 7-25 [facility] Comment on above: Performed By: #### P TH, BMP, TSH3 #### [facility] [address] [place] [id number] [place] Calcium [Mass/volume] in Ser um or PlasmaOrdered By: Edis Morales on 09-07-2024 Calcium [Mass/Vol] Calcium [Mass/volume] in Serum or Plasma 8.6-10.3 [facility] Carbon dioxide, total [Moles /volume] in Serum or PlasmaOrdered By: Edis Morales on 09-07-2024 CO2 [Moles/Vol] Carbon dioxide, total [Moles/volume] in Serum or Plasma 21.0-31.0 [facility] Chloride [Moles/volume] in S fernando or PlasmaOrdered By: Edis Morales on 09-07-2024 Chloride [Moles/Vol] Chloride [Moles/volume] in Serum or Plasma 98-107 [facility] Creatinine [Mass/volume] in Serum or PlasmaOrdered By: Edis Morales on 09-07-2024 Creatinine [Mass/Vol] Creatinine [Mass/volume] in Serum or Plasma 0.60-1.20 [facility] Glucose [Mass/volume] in Ser um or PlasmaOrdered By: Edis Morales on 09-07-2024 Glucose [Mass/Vol] Glucose [Mass/volume] in Serum or Plasma 70-100 [facility] Comment on above: ADA recommended refe rence rangeRandom Glucose Reference Range is dependent on time and content of last meal. Glucose of more than 200 mg/dL in a nonstressed, ambulatory subject supports the diagnosis of Diabetes Mellitus. No Panel InformationOrdered By: Edis Morales on 09-07-2024 Estimated GFR (CKD-EPI) > 60.0 mL/Min [facility] Creatinine Clearance (Chem N/A [facility] Parathyrin.intact [Mass/Vol] on 09-07-2024 PARATHYROID HORMONE INTACT 23 pg/mL pg/mL [facility] Parathyrin.intact [Mass/volu me] in Serum or PlasmaOrdered By: Edis Morales on 09-07-2024 Parathyrin.intact [Mass/Vol] Parathyrin.intact [Mass/volume] in Serum or Plasma [facility] Parathyroid Hormone Intacton 09-07-2024 Parathyroid Hormone Intact 23.0 pg/mL Normal [facility] Comment on above: Result Comment: PERF ORMED BY: [place] [address] PATHOLOGIST DIESEL MECHANIC HELPER SHAWANDA MCKEON M.D. Performed By: #### P TH, BMP, TSH3 #### [address] Potassium [Moles/volume] in Serum or PlasmaOrdered By: Edis Morales on 09-07-2024 Potassium [Moles/Vol] Potassium [Moles/volume] in Serum or Plasma 3.5-5.1 [facility] Serum or plasma anion gap de terminationOrdered By: Edis Morales on 09-07-2024 Anion gap [Moles/Vol] Serum or plasma anion gap determination 6.0-15.0 [facility] Sodium [Moles/volume] in Ser um or PlasmaOrdered By: Edis Morales on 09-07-2024 Sodium [Moles/Vol] Sodium [Moles/volume] in Serum or Plasma 136-145 [facility] Thyroid Stimulating Hormoneo n 09-07-2024 TSH Qn 3.14 m[IU]/L Normal 0.45-5.33 [facility] Comment on above: Result Comment: PERF ORMED BY: [facility] [address] [place] [address] PATHOLOGIST DIESEL MECHANIC HELPER SHAWANDA MCKEON M.D. Performed By: #### P TH, BMP, TSH3 #### [facility] [address] Thyrotropin [Units/volume] i n Serum or PlasmaOrdered By: Edis Morales on 09-07-2024 TSH Qn Thyrotropin [Units/volume] in Serum or Plasma 0.45-5.33 [facility] Urea nitrogen [Mass/volume] in Serum or PlasmaOrdered By: Edis Morales on 09-07-2024 Urea nitrogen [Mass/Vol] Urea nitrogen [Mass/volume] in Serum or Plasma 7 [facility] Philip 08-03-2024 L Specimen: [id number] Received: 08/04/24 Status: PHILIP Simmons Num: [id number] Spec Type: Cytology Subm Dr: Donnell Brooke MD Tissues: A FNA SLIDES NOPATH (RT THY NOD) Procedures: Cyto Int and Re, PAPSTN/5 Age/ Patient Sex Location Account Attending Physician Veronica Ross 33/F LABELL [id number] Donnell Brooke MD SPEC NUM: [id number] RECD: 08/04/24 STATUS: PHILIP SIMMONS NUM: [id number] TAYLOR: 08/03/24 DR: Donnell Brooke MD ENTERED: 08/04/[address]: Francesca Marcos SPEC TYPE: Cytology DEPT: OSBALDO NCYT ENTERED BY: [id number] RECV BY: [id number] ORDERED: Cyto Int and Re, PAPSTN/5 ORDERED: Cyto Int and Re, PAPSTN/5 Pathological Diagnosis Right thyroid nodule,?fine needle aspiration:? Suspicious for follicular neoplasm. 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 [place] Category IV Clinical Information Right Thyroid Nodule Gross Description Received fixed is 30 ml very pale pink clear fluid for cytology said to have been obtained as Right Thyroid Nodule. ThinPrep preparations are prepared for microscopic examination. Also received are 4 spray fixed smeared slides for pap and a Veracyte vial stored at -20 for microscopic examination. (/or) CPT Codes 52657 Specimen: [id number] Received: 08/04/24-1147 Status: PHILIP Simmons Num: [id number] Spec Type: Cytology Subm Dr: Donnell Brooke MD Tissues: A FNA SLIDES NOPATH (RT THY NOD) Procedures: Cyto Int and Re, PAPSTN/5 Patient: Veronica Ross [id number] (Continued) Signed (signature on file) Shawanda Mckeon MD 08/05/24 1754 Normal [facility] XR hand RT min 3V*on 023 XR hand RT min 3V* [facility] 3ROAM Other XR hand RT min 3V* [facility] [employer] Other XR hand RT min 3V* [address] [facility] [employer] Other XR hand RT min 3V* [place] [address] [place] [employer] Other XR hand RT min 3V* XRay Report [place] Other XR hand RT min 3V* Signed [place] Other XR hand RT min 3V* Patient: Veronica Ross MR#: [id number] [facility] Other XR hand RT min 3V* 7067 [place] Other XR hand RT min 3V* : 1990 Acct:[id number] [place] Other XR hand RT min 3V* Age/Sex: 32 / F ADM Date: 11/13/22 [place] Other XR hand RT min 3V* Loc: [facility] Room: Type: [facility] [employer] Other XR hand RT min 3V* Attending Dr: Bonnie Jeffrey MD [place] Other XR hand RT min 3V* Copies to: Bonnie Jeffrey MD [place] Other XR hand RT min 3V* Ordering Provider: Bonnie Jeffrey MD [place] Other XR hand RT min 3V* Date of Service: 11/13/22 [place] Other XR hand RT min 3V* XR/XR hand RT min 3V*: Crushing injury of right thumb, subsequent [facility] Other XR hand RT min 3V* encounter [facility] Other XR hand RT min 3V* XR hand RT min 3V* 11/13/2022 3:49 PM [facility] Other XR hand RT min 3V* SIGNS AND SYMPTOMS: Status post incision and debridement of open fracture of right thumb, follow-up [facility] Other XR hand RT min 3V* PROTOCOL: Frontal, lateral, and oblique radiographs of the right hand [facility] Other XR hand RT min 3V* COMPARISON: 09/25/2022 [facility] Other XR hand RT min 3V* FINDINGS: [place] Other XR hand RT min 3V* Healing/healed fracture of the distal phalanx of the right thumb. There is no change in alignment. [place] Other XR hand RT min 3V* The joint spaces are preserved. No significant soft tissue swelling. [place] Other XR hand RT min 3V* XR/XR hand RT min 3V* [place] Other XR hand RT min 3V* IMPRESSION: [place] Other XR hand RT min 3V* Impression dictated by: Kalpesh Murry M.D.11/13/2022 5:23 PM [place] [employer] Other XR hand RT min 3V* Dictation Location: [place] [address] [place] Other XR hand RT min 3V* Transcribed By: SHAY 11/13/22 [facility] [employer] Other XR hand RT min 3V* Dictated By: Kalpesh Murry II, MD 11/13/22 [facility] Other XR hand RT min 3V* Signed By: [place] Other XR hand RT min 3V* 11/13/22 [facility] [place] [employer] Other PROF CHEM 8 (BAS METB)on Anion gap [Moles/Vol] 11.0 mmol/L Normal [facility] Comment on above: Performed By: #### B MP #### [facility] [address] [place] [address] [address] Shemar Armas Calcium [Mass/Vol] 8.8 mg/dL Normal 8.5-10.1 [facility] Comment on above: Performed By: #### B MP #### [facility] [address] [place] [address] [address] Shemar Armas Chloride [Moles/Vol] 100 mmol/L Normal 98-107 [facility] Comment on above: Performed By: #### B MP #### [facility] [address] [place] [address] [address] Shemar Armas CO2 [Moles/Vol] 31.5 mmol/L Normal 21.0-32.0 [facility] Comment on above: Performed By: #### B MP #### [facility] [address] [place] [address] [address] Shemar Armas Creatinine [Mass/Vol] 1.18 mg/dL Critically high 0.55-1.02 [facility] Comment on above: Performed By: #### B MP #### [facility] [address] [place] [address] [address] Shemar Armas EGFR-AF BARBADIAN >60 Normal >=60 [facility] Comment on above: Performed By: #### B MP #### [facility] [address] [place] [address] [address] Shemar Armas EGFR-NON AF BARBADIAN 53 mL/min/1.73m2 Critically low >=60 [facility] Comment on above: Performed By: #### B MP #### [facility] [address] [place] [address] [address] Shemar Armas Glucose [Mass/Vol] 89 mg/dL Normal 74-106 [facility] Comment on above: Performed By: #### B MP #### [facility] [address] [place] [address] [address] Shemar Armas Potassium [Moles/Vol] 3.5 mmol/L Normal 3.5-5.1 [facility] Comment on above: Performed By: #### B MP #### [facility] [address] [place] [address] [address] Shemar Armas Sodium [Moles/Vol] 139 mmol/L Normal 136-145 [facility] Comment on above: Performed By: #### B MP #### [facility] [address] [place] [address] [address] Shemar Armas Urea nitrogen [Mass/Vol] 11.0 mg/dL Normal 7.0-18.0 [facility] Comment on above: Performed By: #### B MP #### [facility] [address] [place] [address] [address] Shemar Armas Urea nitrogen/Creatinine [Mass ratio] 9.3 mg/mg Normal [facility] Comment on above: Performed By: #### B MP #### [facility] [address] [place] [address] [address] Shemar Armas HCG ( test) IA.rapi d Ql (U)Ordered By: THOM DUONG on 09-28-2022 HCG ( test) Ql (U) Negative [facility] Albumin [Mass/volume] in Ser um or PlasmaOrdered By: Bonnie Jeffrey on 09-26-2022 Albumin [Mass/Vol] 4.0 g/dL 3.2-5.5 [facility] Basophils Auto (Bld) [#/Vol] Ordered By: Bonnie Jeffrey on 09-26-2022 Basophils (Bld) [#/Vol] 0.1 10*3/uL 0.0-0.2 [facility] Basophils/100 WBC Auto (Bld) Ordered By: Bonnie Jeffrey on 09-26-2022 Basophils/100 WBC (Bld) 1.2 % . [facility] Creatinine and Glomerular fi ltration rate.predicted panel (S/P/Bld)Ordered By: Bonnie Jeffrey on 09-26-2022 Creatinine [Mass/Vol] 1.82 mg/dL 0.44-1.03 [facility] Eosinophils Auto (Bld) [#/Vo l]Ordered By: Bonnie Jeffrey on 09-26-2022 Eosinophils (Bld) [#/Vol] 0.1 10*3/uL 0.0-0.45 [facility] Eosinophils/100 WBC Auto (Bl d)Ordered By: Bonnie Jeffrey on 09-26-2022 Eosinophils/100 WBC (Bld) 0.9 % . [facility] Erythrocyte distribution wid th Auto (RBC) [Ratio]Ordered By: Bonnie Jeffrey on 09-26-2022 Erythrocyte distribution width (RBC) [Ratio] 13.6 % 11.9-15.3 [facility] Estimated glomerular filtrat ion rate (GFR) non- AmericanOrdered By: Bonnie Jeffrey on 09-26-2022 GFR/1.73 sq M.predicted among non-blacks MDRD (S/P/Bld) [Vol rate/Area] 32 mL/Min [facility] Globulin Calc (S) [Mass/Vol] Ordered By: Bonnie Jeffrey on 09-26-2022 Globulin (S) [Mass/Vol] 2.8 g/dL [facility] Hematocrit Auto (Bld) [Volum e fraction]Ordered By: Bonnie Jeffrey on 09-26-2022 Hematocrit (Bld) [Volume fraction] 40.2 % 34.0-46.4 [facility] Hemoglobin [Mass/volume] in BloodOrdered By: Bonnie Jeffrey on 09-26-2022 Hemoglobin (Bld) [Mass/Vol] 13.3 g/dL 11.8-15.4 [facility] Leukocytes [#/volume] correc franco for nucleated erythrocytes in Blood by Automated counOrdered By: Bonnie Jeffrey on 09-26-2022 WBC corrected for nucl RBC Auto (Bld) [#/Vol] 9.4 10*3/uL 3.8-11.6 [facility] Lymphocytes Auto (Bld) [#/Vo l]Ordered By: Bonnie Jeffrey on 09-26-2022 Lymphocytes (Bld) [#/Vol] 1.7 10*3/uL 1.00-4.8 [facility] Lymphocytes/100 WBC Auto (Bl d)Ordered By: Bonnie Jeffrey on 09-26-2022 Lymphocytes/100 WBC (Bld) 18.1 % . [facility] MCH Auto (RBC) [Entitic mass ]Ordered By: Bonnie Jeffrey on 09-26-2022 MCH (RBC) [Entitic mass] 28.8 pg 24.7-34.3 [facility] MCHC Auto (RBC) [Mass/Vol]Or dered By: Bonnie Jeffrey on 09-26-2022 MCHC (RBC) [Mass/Vol] 33.0 g/dL 32.0-35.0 [facility]ir [facility] MCV Auto (RBC) [Entitic vol] Ordered By: Bonnie Jeffrey on 09-26-2022 MCV (RBC) [Entitic vol] 87.1 fL 80-[address] [facility] Monocytes Auto (Bld) [#/Vol] Ordered By: Bonnie Jeffrey on 09-26-2022 Monocytes (Bld) [#/Vol] 0.5 10*3/uL 0.0-0.8 [facility] Monocytes/100 WBC Auto (Bld) Ordered By: Bonnie Jeffrey on 09-26-2022 Monocytes/100 WBC (Bld) 5.8 % . [facility] Neutrophils Auto (Bld) [#/Vo l]Ordered By: Bonnie Jeffrey on 09-26-2022 Neutrophils (Bld) [#/Vol] 7.0 10*3/uL 1.8-7.7 [facility] Neutrophils/100 WBC Auto (Bl d)Ordered By: Bonnie Jeffrey on 09-26-2022 Neutrophils/100 WBC (Bld) 74.0 % . [facility] No Panel InformationOrdered By: Bonnie Jeffrey on 09-26-2022 Estimated GFR () 39 mL/Min [facility] Comment on above: GFR estimated refere nce range: According to KDOQI guidelines, <60 ml/min/1.73m2 is sufficient to diagnose a patient with chronic kidney disease. Pharmacy Creatinine Clearance (Chem N/A [facility] Nucleated erythrocytes [Pres ence] in Blood by Automated countOrdered By: Bonnie Jeffrey on 09-26-2022 Nucleated RBC Auto Ql (Bld) 0.0 /100{WBC} 0-0.5 [facility] Platelet mean volume Auto (B ld) [Entitic vol]Ordered By: Bonnie Jeffrey on 09-26-2022 Platelet mean volume (Bld) [Entitic vol] 7.8 fL 6.3-10.7 [facility] Platelets Auto (Bld) [#/Vol] Ordered By: Bonnie Jeffrey on 09-26-2022 Platelets (Bld) [#/Vol] 335 10*3/uL 150-450 [facility] Protein [Mass/volume] in Ser um or PlasmaOrdered By: Bonnie Jeffrey on 09-26-2022 Protein [Mass/Vol] 6.8 g/dL 6.1-7.9 [facility] RBC Auto (Bld) [#/Vol]Ordere d By: Bonnie Jeffrey on 09-26-2022 RBC (Bld) [#/Vol] 4.62 10*6/uL 3.60-5.00 [facility] Serum or plasma alanine kamara otransferase measurement without P-5'-P (enzymatic activiOrdered By: Bonnie Jeffrey on 09-26-2022 ALT No additional P-5'-P [Catalytic activity/Vol] 19 U/L 10-60 [facility] Serum or plasma albumin/glob ulin mass ratioOrdered By: Bonnie Jeffrey on 09-26-2022 Albumin/Globulin [Mass ratio] 1.4 {ratio} [facility] Serum or plasma alkaline mona sphatase measurement (enzymatic activity/volume)Ordered By: Bonnie Jeffrey on 09-26-2022 ALP [Catalytic activity/Vol] 45 U/L 32-92 [facility] Serum or plasma anion gap de terminationOrdered By: Bonnie Jeffrey on 09-26-2022 Anion gap [Moles/Vol] 13.8 mmol/L 6.0-15.0 [facility] Serum or plasma aspartate am inotransferase measurement (enzymatic activity/volume)Ordered By: Bonnie Jeffrey on 09-26-2022 AST [Catalytic activity/Vol] 17 U/L 10-42 [facility] Serum or plasma calcium sagrario urement (mass/volume)Ordered By: Bonnie Jeffrey on 09-26-2022 Calcium [Mass/Vol] 8.9 mg/dL 8.2-10.2 [facility] Serum or plasma chloride julieta surement (moles/volume)Ordered By: Bonnie Jeffrey on 09-26-2022 Chloride [Moles/Vol] 100 mmol/L 95-114 [facility] Serum or plasma glucose sagrario urement (mass/volume)Ordered By: Bonnie Jeffrey on 09-26-2022 Glucose [Mass/Vol] 86 mg/dL 70-100 [facility] Comment on above: ADA recommended refe rence rangeRandom Glucose Reference Range is dependent on time and content of last meal. Glucose of more than 200 mg/dL in a nonstressed, ambulatory subject supports the diagnosis of Diabetes Mellitus. Serum or plasma potassium me asurement (moles/volume)Ordered By: Bonnie Jeffrey on 09-26-2022 Potassium [Moles/Vol] 3.5 mmol/L 3.5-5.1 [facility] Serum or plasma sodium measu rement (moles/volume)Ordered By: Bonnie Jeffrey on 09-26-2022 Sodium [Moles/Vol] 134 mmol/L 136-146 [facility] Serum or plasma total biliru bin measurement (mass/volume)Ordered By: Bonnie Jeffrey on 09-26-2022 Bilirubin [Mass/Vol] 0.5 mg/dL 0.3-1.2 [facility] Serum or plasma total carbon dioxide measurement (moles/volume)Ordered By: Bonnie Jeffrey on 09-26-2022 CO2 [Moles/Vol] 23.7 mmol/L 22.0-30.0 [facility] Serum or plasma urea nitroge n measurement (mass/volume)Ordered By: Bonnie Jeffrey on 09-26-2022 Urea nitrogen [Mass/Vol] 25 mg/dL 9-23 [facility] WBC Auto (Bld) [#/Vol]Ordere d By: Bonnie Jeffrey on 09-26-2022 WBC (Bld) [#/Vol] 9.4 10*3/uL 3.8-11.6 [facility] Operative Reporton 3 Operative Report [id number] #1.00CD:127 Normal [facility] Pathology Noteon 09-14-2022 Pathology Note [id number]#1.00CD:127 Normal [facility] PREG HCG QUALon 09-12-2022 , QUAL Negative Normal NEGATIVE [facility] Comment on above: Performed By: #### P REG #### [facility] [address] [place] [address] Dr. Shemar Armas Lab Reportson 09-10-2022 Lab Reports [id number] #1.00CD:127 Normal [facility] Covid-19 PCR (CVDTB)on 08-26 SARS-CoV-2 (COVID-19) RNA PADMINI+probe Ql (Unsp spec) Not detected Normal NOT DETECTED [facility] Comment on above: Result Comment: This test is not yet approved or cleared by the [place] FDA. When there are no FDA-approved or cleared tests available, and other criteria are met, FDA can make tests available under an emergency access mechanism called an Emergency Use Authorization (EUA). The EUA for this test is supported by the Agenda of Health and Human Service's (HHS's) declaration [...] consistent with SARS-CoV-2. Performed By: #### [facility] #### [facility] [address] [address] [address] Shemar Armas ED Note-Physicianon 08-01-20 ED Note-Physician [id number] #1.00CD:127 Normal [facility] Consent for Procedure/Surger yon 07-31-2022 Consent for Procedure/Surgery [id number] #1.00CD:127 Normal [facility] Physician Referralon 022 Physician Referral [id number] #1.00CD:127 Normal [facility] US SINGLE QUAD RT UPPERon US [...] by: THOM ANGELA Date: 2022-07-09 17:10 Normal [facility] US KIDNEYS BLADDERon 022 US KIDNEYS [...] by: THOM ANGELA Date: 2022-07-04 14:26 Normal [facility] CBC AUTO DIFFon 07-02-2022 BASO # 0.1 103/ul Normal 0.0-0.1 [facility] Comment on above: Performed By: #### C BC #### [facility] [address] [place] [address] Dr. Shemar Armas Basophils/100 WBC (Bld) 0.6 % Normal 0.2-2.0 T [facility] Comment on above: Performed By: #### C BC #### [facility] [address] [place] [address] Dr. Shemar Armas EO # 0.1 103/ul Normal 0.0-0.7 [facility] Comment on above: Performed By: #### C BC #### [facility] [address] [place] [address] Dr. Shemar Armas Eosinophils/100 WBC (Bld) 0.8 % Critically low 0.9-7.0 [facility] Comment on above: Performed By: #### C BC #### [facility] [address] [place] [address] Dr. Shemar Armas Erythrocyte distribution width (RBC) [Ratio] 14.6 % Normal 11.0-15.0 [facility] Comment on above: Performed By: #### C BC #### [facility] [address] [place] [address] Dr. Shemar Armas Hematocrit (Bld) [Volume fraction] 36.4 % Normal 36.0-48.0 [facility] Comment on above: Performed By: #### C BC #### [facility] [address] [place] [address] Dr. Shemar Armas Hemoglobin (Bld) [Mass/Vol] 12.2 g/dL Normal 12.0-16.0 [facility] Comment on above: Performed By: #### C BC #### [facility] [address] [place] [address] Dr. Shemar Armas IG # 0.04 10e3/ul Critically high 0.00-0.03 [facility] Comment on above: Performed By: #### C BC #### [facility] [address] [place] [address] Dr. Shemar Armas IG % 0.3 % Normal 0.0-0.5 [facility] Comment on above: Performed By: #### C BC #### [facility] [address] [place] [address] Dr. Shemar Armas LYMPH # 2.1 103/ul Normal 1.2-3.8 [facility] Comment on above: Performed By: #### C BC #### [facility] [address] [place] [address] Dr. Shemar Armas Lymphocytes/100 WBC (Bld) 18.7 % Critically low 20.5-60.0 [facility] Comment on above: Performed By: #### C BC #### [facility] [address] [place] [address] Dr. Shemar Armas MANUAL DIFF REQ NO Normal [facility] Comment on above: Performed By: #### C BC #### [facility] [address] [place] [address] Dr. Shemar Armas MCH (RBC) [Entitic mass] 29.6 pg Normal 26.7-34.0 [facility] Comment on above: Performed By: #### C BC #### [facility] [address] [place] [address] Dr. Shemar Armas MCHC (RBC) [Mass/Vol] 33.5 g/dL Normal 29.9-35.2 [facility] Comment on above: Performed By: #### C BC #### [facility] [address] [place] [address] Dr. Shemar Armas MCV (RBC) [Entitic vol] 88.3 fL Normal 81.0-99.0 [facility] Comment on above: Performed By: #### C BC #### [facility] [address] [place] [address] Dr. Shemar Armas MONO # 0.7 103/ul Normal 0.3-0.8 [facility] Comment on above: Performed By: #### C BC #### [facility] [address] [place] [address] Dr. Shemar Armas Monocytes/100 WBC (Bld) 6.2 % Normal 1.7-12.0 [facility] Comment on above: Performed By: #### C BC #### [facility] [address] [place] [address] Dr. Shemar Armas NEUT # 8.4 103/ul Critically high 1.4-6.5 [facility] Comment on above: Performed By: #### C BC #### [facility] [address] [place] [address] Dr. Shemar Armas Neutrophils/100 WBC (Bld) 73.4 % Normal 43.0-75.0 [facility] Comment on above: Performed By: #### C BC #### [facility] [address] [place] [address] Dr. Shemar Armas Platelet mean volume (Bld) [Entitic vol] 9.2 fL Critically low 9.5-13.5 [facility] Comment on above: Performed By: #### C BC #### [facility] [address] [place] [address] Dr. Shemar Armas PLT 331 103/ul Normal 150-450 [facility] Comment on above: Performed By: #### C BC #### [facility] [address] [place] [address] Dr. Shemar Armas RBC 4.12 106/ul Critically low 4.20-5.40 [facility] Comment on above: Performed By: #### C BC #### [facility] [address] [place] [address] Dr. Shemar Armas WBC 11.4 103/ul Critically high 4.0-11.0 [facility] Comment on above: Performed By: #### C BC #### [facility] [address] [place] [address] Dr. Shemar Armas PROF CHEM 8 (BAS METB)on Anion gap [Moles/Vol] 11.5 mmol/L Normal [facility] Comment on above: Performed By: #### B MP #### [facility] [address] [place] [address] Dr. Shemar Armas Calcium [Mass/Vol] 8.9 mg/dL Normal 8.5-10.1 [facility] Comment on above: Performed By: #### B MP #### [facility] [address] [place] [address] Dr. Shemar Armas Chloride [Moles/Vol] 102 mmol/L Normal 98-107 [facility] Comment on above: Performed By: #### B MP #### [facility] [address] [place] [address] Dr. Shemar Armas CO2 [Moles/Vol] 29.6 mmol/L Normal 21.0-32.0 [facility] Comment on above: Performed By: #### B MP #### [facility] [address] [address] [address] Shemar Armas Creatinine [Mass/Vol] 1.93 mg/dL Critically high 0.55-1.02 [facility] Comment on above: Performed By: #### B MP #### [facility] [address] [address] [address] Shemar Armas EGFR-AF BARBADIAN 37 mL/min/1.73m2 Critically low >=60 [facility] Comment on above: Performed By: #### B MP #### [facility] [address] [address] [address] Shemar Armas EGFR-NON AF BARBADIAN 30 mL/min/1.73m2 Critically low >=60 [facility] Comment on above: Performed By: #### B MP #### [facility] [address] [address] [address] Shemar Armas Glucose [Mass/Vol] 93 mg/dL Normal 74-106 [facility] Comment on above: Performed By: #### B MP #### [facility] [address] [address] [address] Shemar Armas Potassium [Moles/Vol] 4.1 mmol/L Normal 3.5-5.1 [facility] Comment on above: Performed By: #### B MP #### [facility] [address] [address] [address] Shemar Armas Sodium [Moles/Vol] 139 mmol/L Normal 136-145 [facility] Comment on above: Performed By: #### B MP #### [facility] [address] [address] [address] Shemar Armas Urea nitrogen [Mass/Vol] 22.0 mg/dL Critically high 7.0-18.0 [facility] Comment on above: Performed By: #### B MP #### [facility] [address] [address] [address] Shemar Armas Urea nitrogen/Creatinine [Mass ratio] 11.4 mg/mg Normal [facility] Comment on above: Performed By: #### B MP #### [facility] [address] [place] [address] Dr. Shemar Armas BNPon 06-29-2022 Natriuretic peptide B (Bld) [Mass/Vol] 159.0 pg/mL Normal <=450.0 [facility] Comment on above: Performed By: #### B MP #### [facility] [address] [place] [address] Dr. Shemar Armas CBC AUTO DIFFon 06-29-2022 BASO # 0.1 103/ul Normal 0.0-0.1 [facility] Comment on above: Performed By: #### P REG #### [facility] [address] [place] [address] Dr. Shemar Armas Basophils/100 WBC (Bld) 0.7 % Normal 0.2-2.0 [facility] Comment on above: Performed By: #### P REG #### [facility] [address] [place] [address] Dr. Shemar Armas EO # 0.1 103/ul Normal 0.0-0.7 [facility] Comment on above: Performed By: #### P REG #### [facility] [address] [place] [address] Dr. Shemar Armas Eosinophils/100 WBC (Bld) 1.4 % Normal 0.9-7.0 [facility] Comment on above: Performed By: #### P REG #### [facility] [address] [place] [address] Dr. Shemar Armas Erythrocyte distribution width (RBC) [Ratio] 14.5 % Normal 11.0-15.0 [facility] Comment on above: Performed By: #### P REG #### [facility] [address] [place] [address] Dr. Shemar Armas Hematocrit (Bld) [Volume fraction] 35.4 % Critically low 36.0-48.0 [facility] Comment on above: Performed By: #### P REG #### [facility] [address] [address] [address] Shemar Armas Hemoglobin (Bld) [Mass/Vol] 11.9 g/dL Critically low 12.0-16.0 [facility] Comment on above: Performed By: #### P REG #### [facility] [address] [address] [address] Shemar Armas IG # 0.05 10e3/ul Critically high 0.00-0.03 [facility] Comment on above: Performed By: #### P REG #### [facility] [address] [address] [address] Shemar Armas IG % 0.5 % Normal 0.0-0.5 [facility] Comment on above: Performed By: #### P REG #### [facility] [address] [place] [address] Dr. Shemar Armas LYMPH # 1.7 103/ul Normal 1.2-3.8 [facility] Comment on above: Performed By: #### P REG #### [facility] [address] [place] [address] Dr. Shemar Armas Lymphocytes/100 WBC (Bld) 17.3 % Critically low 20.5-60.0 [facility] Comment on above: Performed By: #### P REG #### [facility] [address] [place] [address] Dr. Shemar Armas MANUAL DIFF REQ NO Normal [facility] Comment on above: Performed By: #### P REG #### [facility] [address] [address] [address] Shemar Armas MCH (RBC) [Entitic mass] 29.5 pg Normal 26.7-34.0 [facility] Comment on above: Performed By: #### P REG #### [facility] [address] [place] [address] Dr. Shemar Armas MCHC (RBC) [Mass/Vol] 33.6 g/dL Normal 29.9-35.2 [facility] Comment on above: Performed By: #### P REG #### [facility] [address] [address] [address] Shemar Armas MCV (RBC) [Entitic vol] 87.8 fL Normal 81.0-99.0 [facility] Comment on above: Performed By: #### P REG #### [facility] [address] [place] [address] Dr. Shemar Armas MONO # 0.6 103/ul Normal 0.3-0.8 [facility] Comment on above: Performed By: #### P REG #### [facility] [address] [address] [address] Shemar Armas Monocytes/100 WBC (Bld) 6.3 % Normal 1.7-12.0 [facility] Comment on above: Performed By: #### P REG #### [facility] [address] [place] [address] Dr. Shemar Armas NEUT # 7.1 103/ul Critically high 1.4-6.5 [facility] Comment on above: Performed By: #### P REG #### [facility] [address] [place] [address] Dr. Shemar Armas Neutrophils/100 WBC (Bld) 73.8 % Normal 43.0-75.0 [facility] Comment on above: Performed By: #### P REG #### [facility] [address] [place] [address] Dr. Shemar Armas Platelet mean volume (Bld) [Entitic vol] 9.4 fL Critically low 9.5-13.5 [facility] Comment on above: Performed By: #### P REG #### [facility] [address] [place] [address] Dr. Shemar Armas PLT 350 103/ul Normal 150-450 [facility] Comment on above: Performed By: #### P REG #### [facility] [address] [place] [address] Dr. Shemar Armas RBC 4.03 106/ul Critically low 4.20-5.40 [facility] Comment on above: Performed By: #### P REG #### [facility] [address] [place] [address] Dr. Shemar Armas WBC 9.6 103/ul Normal 4.0-11.0 [facility] Comment on above: Performed By: #### P REG #### [facility] [address] [place] [address] Dr. Shemar Armas BASO # 0.0 103/ul Normal 0.0-0.1 [facility] Comment on above: Performed By: #### C BC #### [facility] [address] [place] [address] Dr. Shemar Armas Basophils/100 WBC (Bld) 0.6 % Normal 0.2-2.0 [facility] Comment on above: Performed By: #### C BC #### [facility] [address] [place] [address] Dr. Shemar Armas EO # 0.1 103/ul Normal 0.0-0.7 [facility] Comment on above: Performed By: #### C BC #### [facility] [address] [place] [address] Dr. Shemar Armas Eosinophils/100 WBC (Bld) 1.2 % Normal 0.9-7.0 [facility] Comment on above: Performed By: #### C BC #### [facility] [address] [place] [address] Dr. Shemar Armas Erythrocyte distribution width (RBC) [Ratio] 14.4 % Normal 11.0-15.0 [facility] Comment on above: Performed By: #### C BC #### [facility] [address] [place] [address] Dr. Shemar Armas Hematocrit (Bld) [Volume fraction] 29.3 % Critically low 36.0-48.0 [facility] Comment on above: Performed By: #### C BC #### [facility] [address] [place] [address] Dr. Shemar Armas Hemoglobin (Bld) [Mass/Vol] 9.9 g/dL Critically low 12.0-16.0 [facility] Comment on above: Performed By: #### C BC #### [facility] [address] [place] [address] Dr. Shemar Armas IG # 0.04 10e3/ul Critically high 0.00-0.03 [facility] Comment on above: Performed By: #### C BC #### [facility] [address] [place] [address] Dr. Shemar Armas IG % 0.6 % Critically high 0.0-0.5 [facility] Comment on above: Performed By: #### C BC #### [facility] [address] [place] [address] Dr. Shemar Armas LYMPH # 1.5 103/ul Normal 1.2-3.8 [facility] Comment on above: Performed By: #### C BC #### [facility] [address] [place] [address] Dr. Shemar Armas Lymphocytes/100 WBC (Bld) 20.1 % Critically low 20.5-60.0 [facility] Comment on above: Performed By: #### C BC #### [facility] [address] [place] [address] Dr. Shemar Armas MANUAL DIFF REQ NO Normal [facility] Comment on above: Performed By: #### C BC #### [facility] [address] [place] [address] Dr. Shemar Armas MCH (RBC) [Entitic mass] 29.9 pg Normal 26.7-34.0 [facility] Comment on above: Performed By: #### C BC #### [facility] [address] [place] [address] Dr. Shemar Armas MCHC (RBC) [Mass/Vol] 33.8 g/dL Normal 29.9-35.2 [facility] Comment on above: Performed By: #### C BC #### [facility] [address] [place] [address] Dr. Shemar Armas MCV (RBC) [Entitic vol] 88.5 fL Normal 81.0-99.0 [facility] Comment on above: Performed By: #### C BC #### [facility] [address] [place] [address] Dr. Shemar Armas MONO # 0.5 103/ul Normal 0.3-0.8 [facility] Comment on above: Performed By: #### C BC #### [facility] [address] [place] [address] Dr. Shemar Armas Monocytes/100 WBC (Bld) 7.5 % Normal 1.7-12.0 [facility] Comment on above: Performed By: #### C BC #### [facility] [address] [place] [address] Dr. Shemar Armas NEUT # 5.1 103/ul Normal 1.4-6.5 [facility] Comment on above: Performed By: #### C BC #### [facility] [address] [place] [address] Dr. Shemar Armas Neutrophils/100 WBC (Bld) 70.0 % Normal 43.0-75.0 [facility] Comment on above: Performed By: #### C BC #### [facility] [address] [place] [address] Dr. Shemar Armas Platelet mean volume (Bld) [Entitic vol] 9.2 fL Critically low 9.5-13.5 [facility] Comment on above: Performed By: #### C BC #### [facility] [address] [place] [address] Dr. Shemar Armas PLT 225 103/ul Normal 150-450 [facility] Comment on above: Performed By: #### C BC #### [facility] [address] [place] [address] Dr. Shemar Armas RBC 3.31 106/ul Critically low 4.20-5.40 [facility] Comment on above: Performed By: #### C BC #### [facility] [address] [place] [address] Dr. Shemar Armas WBC 7.2 103/ul Normal 4.0-11.0 [facility] Comment on above: Performed By: #### C BC #### [facility] [address] [place] [address] Dr. Shemar Armas IRONon 06-29-2022 Iron [Mass/Vol] 110.0 ug/dL Normal 50.0-170.0 [facility] Comment on above: Performed By: #### P REG #### [facility] [address] [place] [address] Dr. Shemar Armas PROF 14(COMP METB)on 022 Albumin [Mass/Vol] 4.0 g/dL Normal 3.4-5.0 [facility] Comment on above: Performed By: #### P REG #### [facility] [address] [place] [address] Dr. Shemar Armas Albumin/Globulin [Mass ratio] 1.1 {ratio} Normal [facility] Comment on above: Performed By: #### P REG #### [facility] [address] [place] [address] Dr. Shemar Armas ALP [Catalytic activity/Vol] 57 U/L Normal 46-116 [facility] Comment on above: Performed By: #### P REG #### [facility] [address] [place] [address] Dr. Shemar Armas ALT [Catalytic activity/Vol] 26 U/L Normal 14-59 [facility] Comment on above: Performed By: #### P REG #### [facility] [address] [place] [address] Dr. Shemar Armas Anion gap [Moles/Vol] 10.0 mmol/L Normal [facility] Comment on above: Performed By: #### P REG #### [facility] [address] [place] [address] Dr. Shemar Armas AST [Catalytic activity/Vol] 15 U/L Normal 15-37 [facility] Comment on above: Performed By: #### P REG #### [facility] [address] [place] [address] Dr. Shemar Armas Bilirubin [Mass/Vol] 0.2 mg/dL Normal 0.2-1.0 [facility] Comment on above: Performed By: #### P REG #### [facility] [address] [place] [address] Dr. Shemar Armas Calcium [Mass/Vol] 8.8 mg/dL Normal 8.5-10.1 [facility] Comment on above: Performed By: #### P REG #### [facility] [address] [address] [address] Shemar Armas Chloride [Moles/Vol] 105 mmol/L Normal 98-107 [facility] Comment on above: Performed By: #### P REG #### [facility] [address] [address] [address] Shemar Armas CO2 [Moles/Vol] 26.8 mmol/L Normal 21.0-32.0 [facility] Comment on above: Performed By: #### P REG #### [facility] [address] [address] [address] Shemar Armas Creatinine [Mass/Vol] 1.60 mg/dL Critically high 0.55-1.02 [facility] Comment on above: Performed By: #### P REG #### [facility] [address] [address] [address] Shemar Armas EGFR-AF BARBADIAN 46 mL/min/1.73m2 Critically low >=60 [facility] Comment on above: Performed By: #### P REG #### [facility] [address] [address] [address] Shemar Armas EGFR-NON AF [place]IAN 38 mL/min/1.73m2 Critically low >=60 [facility] Comment on above: Performed By: #### P REG #### [facility] [address] [address] [address] Shemar Armas Globulin (S) [Mass/Vol] 3.5 g/dL Normal T [facility] Comment on above: Performed By: #### P REG #### [facility] [address] [address] [address] Shemar Armas Glucose [Mass/Vol] 98 mg/dL Normal 74-106 [facility] Comment on above: Performed By: #### P REG #### [facility] [address] [address] [address] Shemar Armas Potassium [Moles/Vol] 3.8 mmol/L Normal 3.5-5.1 [facility] Comment on above: Performed By: #### P REG #### [facility] [address] [address] [address] Shemar Armas Protein [Mass/Vol] 7.5 g/dL Normal 6.4-8.2 [facility] Comment on above: Performed By: #### P REG #### [facility] [address] [address] [address] Shemar Armas Sodium [Moles/Vol] 138 mmol/L Normal 136-145 [facility] Comment on above: Performed By: #### P REG #### [facility] [address] [address] [address] Shemar Armas Urea nitrogen [Mass/Vol] 24.0 mg/dL Critically high 7.0-18.0 [facility] Comment on above: Performed By: #### P REG #### [facility] [address] [place] [address] Dr. Shemar Armas Urea nitrogen/Creatinine [Mass ratio] 15.0 mg/mg Normal [facility] Comment on above: Performed By: #### P REG #### [facility] [address] [address] [address] Shemar Armas Albumin [Mass/Vol] 3.3 g/dL Critically low 3.4-5.0 [facility] Comment on above: Performed By: #### B MP #### [facility] [address] [address] [address] Shemar Armas Albumin/Globulin [Mass ratio] 1.1 {ratio} Normal [facility] Comment on above: Performed By: #### B MP #### [facility] [address] [address] [address] Shemar Armas ALP [Catalytic activity/Vol] 55 U/L Normal 46-116 [facility] Comment on above: Performed By: #### B MP #### [facility] [address] [address] [address] Shemar Armas ALT [Catalytic activity/Vol] 21 U/L Normal 14-59 [facility] Comment on above: Performed By: #### B MP #### [facility] [address] [address] [address] Shemar Armas Anion gap [Moles/Vol] 8.1 mmol/L Normal [facility] Comment on above: Performed By: #### B MP #### [facility] [address] [address] [address] Shemar Armas AST [Catalytic activity/Vol] 13 U/L Critically low 15-37 [facility] Comment on above: Performed By: #### B MP #### [facility] [address] [address] [address] Shemar Armas Bilirubin [Mass/Vol] 0.1 mg/dL Critically low 0.2-1.0 [facility] Comment on above: Performed By: #### B MP #### [facility] Laboratory [address] [address] [address] Shemar Armas Calcium [Mass/Vol] 7.5 mg/dL Critically low 8.5-10.1 Th [facility] Comment on above: Performed By: #### B MP #### [facility] [address] [address] [address] Shemar Armas Chloride [Moles/Vol] 107 mmol/L Normal 98-107 [facility] Comment on above: Performed By: #### B MP #### [facility] [address] [address] [address] Shemar Armas CO2 [Moles/Vol] 24.5 mmol/L Normal 21.0-32.0 [facility] Comment on above: Performed By: #### B MP #### [facility] [address] [address] [address] Shemar Armas Creatinine [Mass/Vol] 2.03 mg/dL Critically high 0.55-1.02 [facility] Comment on above: Performed By: #### B MP #### [facility] [address] [address] [address] Shemar Armas EGFR-AF BARBADIAN 35 mL/min/1.73m2 Critically low >=60 [facility] Comment on above: Performed By: #### B MP #### [facility] [address] [address] [address] Shemar Armas EGFR-NON AF BARBADIAN 29 mL/min/1.73m2 Critically low >=60 [facility] Comment on above: Performed By: #### B MP #### [facility] [address] [address] [address] Shemar Armas Globulin (S) [Mass/Vol] 2.9 g/dL Normal [facility] Comment on above: Performed By: #### B MP #### [facility] [address] [address] [address] Shemar Armas Glucose [Mass/Vol] 111 mg/dL Critically high 74-106 [facility] Comment on above: Performed By: #### B MP #### [facility] [address] [address] [address] Shemar Armas Potassium [Moles/Vol] 3.6 mmol/L Normal 3.5-5.1 [facility] Comment on above: Performed By: #### B MP #### [facility] [address] [place] [address] Dr. Shemar Armas Protein [Mass/Vol] 6.2 g/dL Critically low 6.4-8.2 Th [facility] Comment on above: Performed By: #### B MP #### [facility] [address] [place] [address] Dr. Shemar Armas Sodium [Moles/Vol] 136 mmol/L Normal 136-145 [facility] Comment on above: Performed By: #### B MP #### [facility] [address] [address] [address] Shemar Armas Urea nitrogen [Mass/Vol] 28.0 mg/dL Critically high 7.0-18.0 [facility] Comment on above: Performed By: #### B MP #### [facility] [address] [place] [address] Dr. Shemar Armas Urea nitrogen/Creatinine [Mass ratio] 13.8 mg/mg Normal [facility] Comment on above: Performed By: #### B MP #### [facility] [address] [place] [address] Dr. Shemar Armas TROPONIN, HIGH SENSITIVITYon 06-29-2022 HSTROP 4.8 pg/mL Normal 4.0-51.3 [facility] Comment on above: Result Comment: CUT- OFF POINTS HAVE BEEN ESTABLISHED BASED ON THE FOURTH UNIVERSAL DEFINITIONS OF MYOCARDIAL INFARCTION. THE UPPER REFERENCE LIMIT (URL) OF TROPONIN, DEFINED THE 99TH PERCENTILE OF cTnI DISTRIBUTION IN A REFERENCE POPULATION, HAS BEEN CONFIRMED THE DECISION THRESHOLD FOR LA DIAGNOSIS. Performed By: #### B MP #### [facility] [address] [place] [address] Dr. Shemar Armas INSULINon 04-27-2022 Insulin 15.8 uIU/mL Normal 2.6-24.9 [facility] Comment on above: Performed By: #### I NSULIN #### [facility] [address] [place] [address] Dr. Shemar Armas T4, T3U, FTI LABCORPon 04-27 Free Thyroxine Index 3.1 Normal 1.2-4.9 [facility] Comment on above: Performed By: #### T HYLC #### [facility] [address] [place] [address] Dr. Shemar Armas T3 Uptake 31 % Normal 24-39 [facility] Comment on above: Performed By: #### T HYLC #### [facility] [address] [place] [address] Dr. Shemar Armas T4 [Mass/Vol] 10.1 ug/dL Normal 4.5-12.0 [facility] Comment on above: Performed By: #### T HYLC #### [facility] [address] [place] [address] Dr. Shemar Armas CBC AUTO DIFFon 04-26-2022 BASO # 0.1 103/ul Normal 0.0-0.1 [facility] Comment on above: Performed By: #### B MP #### [facility] [address] [place] [address] Dr. Shemar Armas Basophils/100 WBC (Bld) 0.7 % Normal 0.2-2.0 [facility] Comment on above: Performed By: #### B MP #### [facility] [address] [place] [address] Dr. Shemar Armas EO # 0.1 103/ul Normal 0.0-0.7 [facility] Comment on above: Performed By: #### B MP #### [facility] [address] [place] [address] Dr. Shemar Armas Eosinophils/100 WBC (Bld) 0.9 % Normal 0.9-7.0 [facility] Comment on above: Performed By: #### B MP #### [facility] [address] [place] [address] Dr. Shemar Armas Erythrocyte distribution width (RBC) [Ratio] 13.7 % Normal 11.0-15.0 [facility] Comment on above: Performed By: #### B MP #### [facility] [address] [place] [address] Dr. Shemar Armas Hematocrit (Bld) [Volume fraction] 41.8 % Normal 36.0-48.0 [facility] Comment on above: Performed By: #### B MP #### [facility] [address] [place] [address] Dr. Shemar Armas Hemoglobin (Bld) [Mass/Vol] 13.9 g/dL Normal 12.0-16.0 [facility] Comment on above: Performed By: #### B MP #### [facility] [address] [place] [address] Dr. Shemar Armas IG # 0.03 10e3/ul Normal 0.00-0.03 [facility] Comment on above: Performed By: #### B MP #### [facility] [address] [place] [address] Dr. Shemar Armas IG % 0.3 % Normal 0.0-0.5 [facility] Comment on above: Performed By: #### B MP #### [facility] [address] [place] [address] Dr. Shemar Armas LYMPH # 1.8 103/ul Normal 1.2-3.8 [facility] Comment on above: Performed By: #### B MP #### [facility] [address] [place] [address] Dr. Shemar Armas Lymphocytes/100 WBC (Bld) 21.0 % Normal 20.5-60.0 [facility] Comment on above: Performed By: #### B MP #### [facility] [address] [place] [address] Dr. Shemar Armas MANUAL DIFF REQ NO Normal [facility] Comment on above: Performed By: #### B MP #### [facility] [address] [place] [address] Dr. Shemar Armas MCH (RBC) [Entitic mass] 28.8 pg Normal 26.7-34.0 [facility] Comment on above: Performed By: #### B MP #### [facility] [address] [place] [address] Dr. Shemar Armas MCHC (RBC) [Mass/Vol] 33.3 g/dL Normal 29.9-35.2 [facility] Comment on above: Performed By: #### B MP #### [facility] [address] [place] [address] Dr. Shemar Armas MCV (RBC) [Entitic vol] 86.7 fL Normal 81.0-99.0 [facility] Comment on above: Performed By: #### B MP #### [facility] [address] [place] [address] Dr. Shemar Armas MONO # 0.7 103/ul Normal 0.3-0.8 [facility] Comment on above: Performed By: #### B MP #### [facility] [address] [place] [address] Dr. Shemar Armas Monocytes/100 WBC (Bld) 7.9 % Normal 1.7-12.0 [facility] Comment on above: Performed By: #### B MP #### [facility] [address] [place] [address] Dr. Shemar Armas NEUT # 6.0 103/ul Normal 1.4-6.5 [facility] Comment on above: Performed By: #### B MP #### [facility] [address] [place] [address] Dr. Shemar Armas Neutrophils/100 WBC (Bld) 69.2 % Normal 43.0-75.0 [facility] Comment on above: Performed By: #### B MP #### [facility] [address] [place] [address] Dr. Shemar Armas Platelet mean volume (Bld) [Entitic vol] 9.7 fL Normal 9.5-13.5 [facility] Comment on above: Performed By: #### B MP #### [facility] [address] [place] [address] Dr. Shemar Armas PLT 322 103/ul Normal 150-450 [facility] Comment on above: Performed By: #### B MP #### [facility] [address] [place] [address] Dr. Shemar Armas RBC 4.82 106/ul Normal 4.20-5.40 [facility] Comment on above: Performed By: #### B MP #### [facility] [address] [place] [address] Dr. Shemar Armas WBC 8.7 103/ul Normal 4.0-11.0 [facility] Comment on above: Performed By: #### B MP #### [facility] [address] [place] [address] Dr. Shemar Armas GLYCOHEMOGLOBIN A1Con 2021 ADA RECOMMENDATION SEE BELOW Normal [facility] Comment on above: Result Comment: ADA RECOMMENDED LIMIT 4.0 - 6.0 ADA THERAPEUTIC TARGET < 7.0 ACTION SUGGESTED > 7.0 Performed By: #### P REG #### [facility] [address] [place] [address] Dr. Shemar Armas Glucose [Mass/Vol] 108 mg/dL Normal [facility] Comment on above: Performed By: #### P REG #### [facility] [address] [place] [address] Dr. Shemar Armas HbA1c (Bld) [Mass fraction] 5.4 % Normal 4.5-6.2 [facility] Comment on above: Performed By: #### P REG #### [facility] [address] [place] [address] Dr. Shemar Armas IRONon 04-26-2022 Iron [Mass/Vol] 55.0 ug/dL Normal 50.0-170.0 [facility] Comment on above: Performed By: #### I CYNDI #### [facility] [address] [address] [address] Shemar Armas LIPID PROFILEon 04-26-2022 CHOL-HDL RATIO NORM SEE BELOW Normal [facility] Comment on above: Result Comment: 3.3 - 4.4 LOW RISK 4.4 - 7.1 AVERAGE RISK 7.1 - 11.0 MODERATE RISK >11.0 HIGH RISK Performed By: #### P REG #### [facility] [address] [address] [address] Shemar Armas Cholesterol [Mass/Vol] 205 mg/dL Critically high <=200 [facility] Comment on above: Performed By: #### P REG #### [facility] [address] [address] [address] Shemar Armas Cholesterol in HDL [Mass/Vol] 57 mg/dL Normal 40-60 [facility] Comment on above: Performed By: #### P REG #### [facility] [address] [address] [address] Shemar Armas Cholesterol in LDL [Mass/Vol] 126.8 mg/dL Normal [facility] Comment on above: Performed By: #### P REG #### [facility] [address] [address] [address] Shemar Armas Cholesterol.total/Viktoriya sterol in HDL [Mass ratio] 3.6 {ratio} Normal [facility] Comment on above: Performed By: #### P REG #### [facility] [address] [address] [address] Shemar Armas HDL NORMAL > or = 60 mg/dl - LOW CARDIOVASCULAR RISK <40 mg/dl - HIGH CARDIOVASCULAR RISK Normal [facility] Comment on above: Performed By: #### P REG #### [facility] [address] [address] [address] Shemar Armas LDL CALC NORMAL SEE BELOW Normal [facility] Comment on above: Result Comment: <100 mg/dl OPTIMAL 100 - 129 mg/dl NEAR OR ABOVE OPTIMAL 130 - 159 mg/dl BORDERLINE HIGH 160 - 189 mg/dl HIGH >190 mg/dl VERY HIGH Performed By: #### P REG #### [facility] [address] [place] [address] Dr. Shemar Armas Triglyceride [Mass/Vol] 106 mg/dL Normal <=150 [facility] Comment on above: Performed By: #### P REG #### [facility] [address] [address] [address] Shemar Armas VLDL CALC 21.2 mg/dL Normal [facility] Comment on above: Performed By: #### P REG #### [facility] [address] [place] [address] Dr. Shemar Armas PROF 14(COMP METB)on 022 Albumin [Mass/Vol] 4.3 g/dL Normal 3.4-5.0 [facility] Comment on above: Performed By: #### T SH, CMP, LIPID #### [facility] [address] [place] [address] Dr. Shemar Armas Albumin/Globulin [Mass ratio] 1.2 {ratio} Normal [facility] Comment on above: Performed By: #### T SH, CMP, LIPID #### [facility] [address] [place] [address] Dr. Shemar Armas ALP [Catalytic activity/Vol] 62 U/L Normal 46-116 [facility] Comment on above: Performed By: #### T SH, CMP, LIPID #### [facility] [address] [place] [address] Dr. Shemar Armas ALT [Catalytic activity/Vol] 34 U/L Normal 14-59 [facility] Comment on above: Performed By: #### T SH, CMP, LIPID #### [facility] [address] [place] [address] Dr. Shemar Armas Anion gap [Moles/Vol] 13.7 mmol/L Normal [facility] Comment on above: Performed By: #### T SH, CMP, LIPID #### [facility] [address] [address] [address] Shemar Armas AST [Catalytic activity/Vol] 22 U/L Normal 15-37 [facility] Comment on above: Performed By: #### T SH, CMP, LIPID #### [facility] [address] [place] [address] Dr. Shemar Armas Bilirubin [Mass/Vol] 0.3 mg/dL Normal 0.2-1.0 [facility] Comment on above: Performed By: #### T SH, CMP, LIPID #### [facility] [address] [place] [address] Dr. Shemar Armas Calcium [Mass/Vol] 9.1 mg/dL Normal 8.5-10.1 [facility] Comment on above: Performed By: #### T SH, CMP, LIPID #### [facility] [address] [place] [address] Dr. Shemar Armas Chloride [Moles/Vol] 98 mmol/L Normal 98-107 [facility] Comment on above: Performed By: #### T SH, CMP, LIPID #### [facility] [address] [place] [address] Dr. Shemar Armas CO2 [Moles/Vol] 29.9 mmol/L Normal 21.0-32.0 [facility] Comment on above: Performed By: #### T SH, CMP, LIPID #### [facility] [address] [place] [address] Dr. Shemar Armas Creatinine [Mass/Vol] 1.27 mg/dL Critically high 0.55-1.02 [facility] Comment on above: Performed By: #### T SH, CMP, LIPID #### [facility] [address] [place] [address] Dr. Shemar Armas EGFR-AF BARBADIAN 59 mL/min/1.73m2 Critically low >=60 [facility] Comment on above: Performed By: #### T SH, CMP, LIPID #### [facility] [address] [place] [address] Dr. Shemar Armas EGFR-NON AF BARBADIAN 49 mL/min/1.73m2 Critically low >=60 [facility] Comment on above: Performed By: #### T SH, CMP, LIPID #### [facility] [address] [address] [address] Shemar Armas Globulin (S) [Mass/Vol] 3.6 g/dL Normal [facility] Comment on above: Performed By: #### T SH, CMP, LIPID #### [facility] [address] [address] [address] Shemar Armas Glucose [Mass/Vol] 92 mg/dL Normal 74-106 [facility] Comment on above: Performed By: #### T SH, CMP, LIPID #### [facility] [address] [place] [address] Dr. Shemar Armas Potassium [Moles/Vol] 3.6 mmol/L Normal 3.5-5.1 [facility] Comment on above: Performed By: #### T SH, CMP, LIPID #### [facility] [address] [place] [address] Dr. Shemar Armas Protein [Mass/Vol] 7.9 g/dL Normal 6.4-8.2 [facility] Comment on above: Performed By: #### T SH, CMP, LIPID #### [facility] [address] [place] [address] Dr. Shemar Armas Sodium [Moles/Vol] 138 mmol/L Normal 136-145 [facility] Comment on above: Performed By: #### T SH, CMP, LIPID #### [facility] [address] [place] [address] Dr. Shemar Armas Urea nitrogen [Mass/Vol] 16.0 mg/dL Normal 7.0-18.0 [facility] Comment on above: Performed By: #### T SH, CMP, LIPID #### [facility] [address] [place] [address] Dr. Shemar Armas Urea nitrogen/Creatinine [Mass ratio] 12.6 mg/mg Normal [facility] Comment on above: Performed By: #### T SH, CMP, LIPID #### [facility] [address] [place] [address] Dr. Shemar Armas TSHon 04-26-2022 TSH 3.031 uIU/mL Normal 0.358-3.740 [facility] Comment on above: Performed By: #### P REG #### [facility] [address] [place] [address] Dr. Shemar Armas Vital Signs Date Time Vital Sign Value Performing Clinician Facility 10-26-2024 13:18-0500 Body height 160 cm Edis Murcek DO Work Phone: [facility] 10-26-2024 13:18-0500 Body mass index (BMI) [Ratio] 48.36 kg/m2 Edis Murcek DO Work Phone: [facility] 10-26-2024 13:18-0500 Body weight 123.83 kg Edis Murcek DO Work Phone: [facility] 09-21-2024 13:40-0500 Body height 160 cm Edis Murcek DO Work Phone: [facility] 09-21-2024 13:40-0500 Body mass index (BMI) [Ratio] 48.36 kg/m2 Edis Murcek DO Work Phone: [facility] 09-21-2024 13:40-0500 Body weight 123.83 kg Edis Murcek DO Work Phone: [facility] 09-01-2024 09:39-0500 Body height 160 cm Edis Murcek DO Work Phone: [facility] 09-01-2024 09:39-0500 Body mass index (BMI) [Ratio] 48.36 kg/m2 Edis Murcek DO Work Phone: [facility] 09-01-2024 09:39-0500 Body weight 123.83 kg Edis Murcek DO Work Phone: [facility] 10-02-2022 16:00-0500 Body height 160.02 cm Bonnie Jeffrey Other [facility] Other 10-02-2022 16:00-0500 Body mass index (BMI) [Ratio] 42.69 kg/m2 Bonnie Jeffrey Other [facility] Other 10-02-2022 16:00-0500 Body weight 109.32 kg Bonnie Jeffrey Other [facility] Other 09-28-2022 15:55-0500 Diastolic blood pressure 60 mm[Hg] MD Donnell Brooke Work Phone: [facility] 09-28-2022 15:55-0500 Heart rate 76 /min MD Donnell Brooke Work Phone: [facility] 09-28-2022 15:55-0500 Respiratory rate 16 /min MD Donnell Brooke Work Phone: [facility] 09-28-2022 15:55-0500 SaO2% (BldA) [Mass fraction] 98 % MD Donnell Brooke Work Phone: [facility] 09-28-2022 15:55-0500 Systolic blood pressure 123 mm[Hg] MD Donnell Brooke Work Phone: [facility] 09-28-2022 14:33-0500 Body height 162.56 cm MD Donnell Brooke Work Phone: [facility] 09-28-2022 14:33-0500 Body mass index (BMI) [Ratio] 41.6 kg/m2 MD Donnell Brooke Work Phone: [facility] 09-28-2022 14:33-0500 Body weight 110 kg MD Donnell Brooke Work Phone: [facility] 09-28-2022 12:25-0500 Body temperature 98 [degF] MD Donnell Brooke Work Phone: [facility] 07-30-2022 15:29-0500 Blood Pressure Location Sanjay ZUÑIGA [facility] [place] 07-30-2022 15:29-0500 Diastolic blood pressure 83 mm[Hg] Sanjay NILL [facility] [place] 07-30-2022 15:29-0500 Heart rate 75 /min Sanjay NILL [facility] 07-30-2022 15:29-0500 Respiratory rate 16 /min Sanjay NILL [facility] 07-30-2022 15:29-0500 Systolic blood pressure 124 mm[Hg] Sanjay NILL [facility] Encounters Encounter Date Encounter Type Care Provider [...] Start: 09-14-2024 End: 09-14-2024 ambulatory Donnell Brooke Facility:[facility] Start: 09-07-2024 End: 09-07-2024 External Result Encounter Edis Morales DO Work Phone: [facility] External Department Unsolicited Start: 09-07-2024 End: 09-07-2024 External Result Encounter Edis Morales DO Work Phone: [facility] External Department Unsolicited Start: 09-07-2024 End: 09-07-2024 Patient encounter procedure Donnell Brooke MD Work Phone: [facility] Work Phone: Start: 09-07-2024 End: 09-07-2024 ambulatory Donnell Brooke MD Work Phone: [facility] Work Phone: Start: 09-07-2024 Encounter for preprocedural laboratory examination Edis Morales [facility] Start: 09-01-2024 End: 09-01-2024 Bamboo flowsheet Edis Vo Andrew DO Work Phone: [facility] [place] Start: 09-01-2024 End: 09-01-2024 Bamboo flowsheet Edis Mroales DO Work Phone: [facility] Start: 09-01-2024 End: 09-01-2024 Office outpatient new 60 minutes Edis Morales DO Work Phone: [facility] [place] Comment on above: Thyroid nodule (CMS/ HCC) Start: 09-01-2024 End: 09-01-2024 ambulatory EDIS MORALES Not Available Start: 08-03-2024 End: 08-03-2024 ambulatory Donnell Brooke Facility:[facility] Start: 08-03-2024 End: 08-03-2024 Departed Referred Donnell Brooke MD Work Phone: [facility] Start: 06-12-2023 End: 06-12-2023 ambulatory Bonnie Calvey Other [facility] Other Start: 06-12-2023 Office outpatient vi sit 15 minutes Bonnie Calvey [facility] Start: 03-20-2023 End: 03-20-2023 ambulatory Bonnie Calvey Other [facility] Other Start: 03-20-2023 Office outpatient vi sit 15 minutes Bonnie Calvey [facility] Start: 01-24-2023 End: 01-24-2023 ambulatory Bonnie Calvey Other [facility] Other Start: 01-24-2023 Office outpatient vi sit 15 minutes Bonnie Calvey [facility] Start: 11-13-2022 End: 11-13-2022 Patient encounter procedure MD Donnell Brooke Work Phone: [facility] Start: 11-13-2022 End: 11-13-2022 ambulatory MD Donnell Brooke Work Phone: [facility] Work Phone: Start: 11-13-2022 Postop follow up vis it related to original px Bonnie Calvey [facility] Start: 10-23-2022 End: 10-23-2022 ambulatory Bonnie Calvey Other [facility] Other Start: 10-23-2022 Postop follow up vis it related to original px Bonnie Calvey [facility] Start: 10-10-2022 End: 10-11-[address] DONNELL BROOKE . Facility: Start: 10-09-2022 End: 10-09-2022 ambulatory Bonnie Calvyaniv Other [facility] Other Start: 10-09-2022 Postop follow up vis it related to original px Bonnie Calvey [facility] Start: 10-02-2022 End: 10-02-2022 ambulatory Bonnie Calvey Other [facility] Other Start: 10-02-2022 Postop follow up vis it related to original px Bonnie Calvey [facility] Start: 10-02-2022 Telephone encounter Bonnie Calvey [facility] Start: 09-28-2022 End: 09-28-2022 Admission to same day surgery center MD Donnell Brooke Work Phone: [facility] [place] Start: 09-26-2022 End: 09-26-2022 ambulatory MD Donnell Brooke Work Phone: [facility] Work Phone: Start: 09-26-2022 End: 09-26-2022 Patient encounter procedure MD Donnell Brooke Work Phone: [facility] Work Phone: Start: 09-25-2022 End: 09-25-[address] DONNELL BROOKE . Facility: Start: 09-21-2022 ambulatory Sanjay ZUÑIGA Facility :[facility] Start: 09-14-2022 Encounter for preprocedural laboratory examination DR SANJAY ZUÑIGA . [facility] Start: 09-12-2022 End: 09-13-2022 ambulatory Sanjay ZUÑIGA Facility:CD:[id number] Start: 09-11-2022 End: 10-06-[address] DONNELL BROOKE . Facility:[facility] Start: 09-07-2022 End: 09-08-[address] DONNELL BROOKE . Facility:[facility] Start: 09-07-2022 End: 09-08-2022 Encounter for preprocedural laboratory examination DR DONNELL BROOKE . Facility:[facility] Start: 07-30-2022 End: 07-31-2022 ambulatory Donnell Brooke PROVIDER Facility:[facility] Start: 07-30-2022 End: 07-30-2022 Patient encounter procedure Sanjay ZUÑIGA [facility] [place] Start: 07-10-2022 ambulatory Donnell Brooke PROVIDER Facility:[facility] Start: 07-09-2022 End: 07-10-[address] [...] abnormal findings DR DONNELL BROOKE . [facility] Start: 04-26-2022 End: 04-27-[address] DONNELL [...] Sanjay NILL Extraction of wisdom tooth M cahntal NILL PILONIDAL CYST EXCISION Messi ael NILL TARSAL TUNNEL RELEASE 1 Messi ael NILL Comment on above: LEFT Tonsillectomy Sanjay NILL Plan of Treatment Date Care Activity Detail Author Start: 02-01-2025 End: 02-01-2025 Patient encounter procedure 02/01/2025 1:30 PM EDT Office Visit [facility] [place] [address] [place] [id number] Edis Morales, DO [address] [place] [id number] [facility] Start: 01-26-2025 End: 10-26-2025 Thyroglobulin Thyroglobulin Lab Routine Malignant neoplasm of thyroid gland (CMS/HCC) Status post partial thyroidectomy (CMS/HCC) Expected: 01/26/2025 (Approximate), Expires: 10/26/2025 [facility] Comment on above: Expected: 01/26/2025 (Approximate), Expires: 10/26/2025 Start: 01-26-2025 End: 10-26-2025 Thyrotropin [Units/volume] in Serum or Plasma [facility] Comment on above: Expected: 01/26/2025 (Approximate), Expires: 10/26/2025 Start: 01-26-2025 End: 10-26-2025 Triiodothyronine (T3) [Mass/volume] in Serum or Plasma T3 Lab Routine Malignant neoplasm of thyroid gland (CMS/HCC) Status post partial thyroidectomy (CMS/HCC) Expected: 01/26/2025 (Approximate), Expires: 10/26/2025 [facility] Comment on above: Expected: 01/26/2025 (Approximate), Expires: 10/26/2025 Start: 12-10-2024 End: 10-26-2025 Thyroglobulin Thyroglobulin Lab Routine Malignant neoplasm of thyroid gland (CMS/HCC) Status post partial thyroidectomy (CMS/HCC) Expected: 12/10/2024 (Approximate), Expires: 10/26/2025 [facility] Comment on above: Expected: 12/10/2024 (Approximate), Expires: 10/26/2025 Start: 12-10-2024 End: 10-26-2025 Thyrotropin [Units/volume] in Serum or Plasma [facility] Comment on above: Expected: 12/10/2024 (Approximate), Expires: 10/26/2025 Start: 12-10-2024 End: 10-26-2025 Triiodothyronine (T3) [Mass/volume] in Serum or Plasma T3 Lab Routine Malignant neoplasm of thyroid gland (CMS/HCC) Status post partial thyroidectomy (CMS/HCC) Expected: 12/10/2024 (Approximate), Expires: 10/26/2025 [facility] Work Phone: Comment on above: Expected: 12/10/2024 (Approximate), Expires: 10/26/2025 Start: 10-26-2024 End: 10-26-2024 Patient encounter procedure [facility] Comment on above: Arrived Start: 10-19-2024 End: 09-21-2025 Thyroglobulin Thyroglobulin Lab Routine Status post partial thyroidectomy (CMS/HCC) Expected: 10/19/2024 (Approximate), Expires: 09/21/2025 [facility] Comment on above: Expected: 10/19/2024 (Approximate), Expires: 09/21/2025 Start: 10-19-2024 End: 09-21-2025 Thyrotropin [Units/volume] in Serum or Plasma [facility] Work Phone: Comment on above: Expected: 10/19/2024 (Approximate), Expires: 09/21/2025 Start: 10-19-2024 End: 09-21-2025 Triiodothyronine (T3) [Mass/volume] in Serum or Plasma T3 Lab Routine Status post partial thyroidectomy (CMS/HCC) Expected: 10/19/2024 (Approximate), Expires: 09/21/2025 [facility] Comment on above: Expected: 10/19/2024 (Approximate), Expires: 09/21/2025 Start: 09-21-2024 End: 09-21-2024 Patient encounter procedure [facility] Comment on above: Arrived Start: 09-01-2024 End: 09-01-2025 Calcium [Mass/volume] in Serum or Plasma Calcium Lab Routine Thyroid nodule (CMS/HCC) Expected: 09/01/2024 (Approximate), Expires: 09/01/2025 [facility] Comment on above: Expected: 09/01/2024 (Approximate), Expires: 09/01/2025 Start: 09-01-2024 End: 09-01-2025 Parathyrin.intact [Mass/volume] in Serum or Plasma PTH, intact Lab Routine Thyroid nodule (CMS/HCC) Expected: 09/01/2024 (Approximate), Expires: 09/01/2025 [facility] Work Phone: Comment on above: Expected: 09/01/2024 (Approximate), Expires: 09/01/2025 Start: 09-01-2024 End: 09-01-2025 Thyrotropin [Units/volume] in Serum or Plasma TSH Lab Routine Thyroid nodule (CMS/HCC) Expected: 09/01/2024 (Approximate), Expires: 09/01/2025 [facility] Comment on above: Expected: 09/01/2024 (Approximate), Expires: 09/01/2025 Start: 09-01-2024 End: 09-01-2024 Patient encounter procedure 09/01/2024 9:45 AM EST Office Visit NATALIA SALMERON [address] [place] [address] Edis Morales, [address] [place] [address] Arrived [facility] Comment on above: Arrived Start: 09-28-2022 [facility] Start: 09-28-2022 [facility] Basic metabolic 1998 panel - Serum or Plasma Basic metabolic panel Lab Routine 09/07/2024 11:55 AM EST [facility] Work Phone: Patient referral [facility] Work Phone: Immunizations Immunization Date Immunization Notes Care Provider Fa cility 05-27-2024 Seasonal, trivalent, recombinant, injectable influenza vaccine, preservative free Edis Morales DO Work Phone: [facility] 05-05-2021 influenza virus vaccine, unspecified formulation Edis Morales DO Work Phone: [facility] 04-28-2020 influenza, injectable, quadrivalent, preservative free Edis Morales DO Work Phone: [facility] NEGATED: Highlighted row has not occurred!07-30-2022 influenza virus vaccine, unspecified formulation Sanjay ZUÑIGA [facility] [place] Payers Date Payer Category Payer Self-pay 2022 Private Health Insurance [employer] [id number] 2022 Unknown [id number] 1990 Unknown [id number] 2.16.840.1.205667.3.579.2. 727 1990 Unknown [id number] 2.16.840.1.751348.3.579.2. 727 1990 Unknown [id number] 2.16.840.1.745890.3.579.2. 727 1990 Unknown [id number] 2.16.840.1.108682.3.579.2. 727 1990 Unknown [id number] 2.16.840.1.042111.3.579.2. 727 1990 Unknown [id number] 2.16.840.1.107761.3.579.2. 593 1990 Unknown [id number] 2.16.840.1.715017.3.579.2. 593 1990 Unknown [id number] 2.16.840.1.345331.3.579.2. 593 1990 Unknown [id number] 2.16.840.1.514802.3.579.2. 593 1990 Unknown [id number] 2.16.840.1.130070.3.579.2. 593 1990 Unknown [id number] 2.16.840.1.571287.3.579.2. 593 1990 Unknown [id number] 2.16.840.1.722357.3.579.2. 593 1990 Unknown [id number] 2.16.840.1.971014.3.579.2. 593 1990 Unknown [id number] 2.16.840.1.496314.3.579.2. 593 1990 Unknown [id number] 2.16.840.1.720027.3.579.2. 593 1990 Unknown [id number] 2.16.840.1.388692.3.579.2. 593 1990 Unknown [id number] 2.16.840.1.263856.3.579.2. 593 1990 Unknown [id number] 2.16.840.1.705796.3.579.2. 1259 1990 Unknown [id number] 2.16.840.1.466880.3.579.2. 1259 1990 Unknown [id number] 2.16.840.1.480189.3.579.2. 1259 1990 Unknown [id number] 2.16.840.1.073255.3.579.2. 1259 1959 Unknown [id number] Unknown [id number] 2.16.840.1.852841.3.579.2. 531 Unknown [id number] 2.16.840.1.217317.3.579.2. 531 Unknown [id number] 2.16.840.1.649483.3.579.2. 531 Social History Date Type Detail Facility Start: 07-30-2022 End: 09-01-2024 Tobacco smoking status Never smoked tobacco (finding) [facility] [place] Start: 09-01-2024 End: 10-26-2024 Sex Assigned At Female [facility] Start: 1990 Sex Assigned At Female [facility] Start: 09-01-2024 Tobacco use and exposure Smokeless tobacco non-user [facility] Start: 09-01-2024 End: 10-26-2024 Alcoholic beverage intake Ex-drinker (finding) [facility] Start: 09-01-2024 End: 10-26-2024 History of Social function [facility] Start: 2024 Gender identity Identifies as female gender (finding) [facility] Tobacco smoking stat [facility] Tobacco smoking consumption unknown [facility] Start: 09-08-2024 Sex Female (finding) [facility] Goals Date Patient Goal Desired Activity /State Functional Status Date Assessment Result Facility 07-30-2022 Functional Status N/A [facility] [place] Clinical Notes 08-20-2022 to 10-26-2024 Edis Morales [...] at that time. documented in this encounter [facility] 09-21-2024 History of Present illness Narrative [...] this visit: Malignant neoplasm of thyroid gland ([facility]) (Primary) Comments: I will see the patient back in 1 month with T3, T4, TSH and thyroglobulin. She will need surveillance thereafter. Status post partial thyroidectomy ([facility]) Comments: Patient does not need completion thyroidectomy for this small well contained tumor. Orders: - TSH; Future - T3; Future - T4; Future - Thyroglobulin; Future - TSH - T3 - T4 - Thyroglobulin documented in this encounter [facility] 09-14-2024 History of Present illness Narrative Formatting of this note might be differe nt from the original. mmm documented in this encounter [facility] 09-01-2024 History of Present illness Narrative Formatting of this note might be differe nt from the original. Work note Allergies as of 09/01/2024 - Reviewed 09/01/2024 Allergen Reaction Noted Morphine 08/29/2024 Silver 08/29/2024 Past Medical History: Diagnosis Date BMI 40.0-44.9, adult ([facility]) 08/29/2024 Cervical radiculopathy 08/29/2024 History of pilonidal cyst 08/29/2024 HTN (hypertension) ([facility]) 08/29/2024 Hypercholesteremia ([facility]) 08/29/2024 Insomnia 08/29/2024 Migraines ([facility]) 08/29/2024 Morbid obesity ([facility]) 08/29/2024 Orthostatic hypotension 08/29/2024 Current Outpatient Medications: [...] [facility]. Molecular testing shows [...] all orders for this visit: Thyroid nodule (CMS/[facility]) Comments: Given the above, this almost likely [...] consented to proceed. documented in this encounter [facility] 06-12-2023 Evaluation note Encounter Date Diagnosis [...] Other specified postprocedural states (ICD-10 - Z98.890) [facility] Other 07-26-2023 Evaluation note* Encounter Date Diagnosis Assessment Notes Treatment Notes Treatment Clinical Notes Feb, Crushing injury of right thumb, subsequent encounter (ICD-10 - S67.01XD) Patient instructed to keep cuticle moisturized and pushed back. Activity as tolerated Feb, Injury of nail bed o f finger of right hand, subsequent encounter (ICD-10 - S69.91XD) Feb, Other specified postprocedural states (ICD-10 - Z98.890) [facility] Other 06-01-2023 Evaluation note* Encounter Date Diagnosis [...] Other specified postprocedural states (ICD-10 - Z98.890) [facility] Other 03-21-2023 Evaluation note* Encounter Date Diagnosis [...] Other specified postprocedural states (ICD-10 - Z98.890) [facility] Other 02-28-2023 Evaluation note* Encounter Date Diagnosis Assessment Notes Treatment Notes Treatment Clinical Notes Sep, Crushing injury of right thumb, initial encounter (ICD-10 - S67.01XA) Patient instructed on the use of moisturizer for the nailbed. Return to work note given Sep, Injury of nail bed of right thumb, initial encounter (ICD-10 - S69.91XA) [facility] Other 02-14-2023 Evaluation note* Encounter Date Diagnosis Assessment Notes Treatment Notes Treatment Clinical Notes Sep, Crushing injury of right thumb, initial encounter (ICD-10 - S67.01XA) Patient instructed to continue with current wound care and use of stax splint. Continue off work Sep, Injury of nail bed of right thumb, initial encounter (ICD-10 - S69.91XA) [facility] Other 02-07-2023 Evaluation note* Encounter Date Diagnosis Assessment Notes Treatment Notes Treatment Clinical Notes Sep, Crushing injury of right thumb, initial encounter (ICD-10 - S67.01XA) Patient instructed to continue daily soaking. Rx given for Zofran due to vomitting from narcotics Sep, Injury of nail bed of right thumb, initial encounter (ICD-10 - S69.91XA) [facility] Other 01-31-2023 NotePROCEDURE: XR HAND RT MIN [...] Electronically authenticated by: MYAH LEAL Date: 2022-09-25 07:51[facility]01-18-2023 NoteOPERATIVE NOTE OPERATION DATE: 09/12/2022 PREOPERATIVE [...] in good condition. CC: Patient's family physicianThe [facility] Health [id number] NoteChief Complaint consultation for RUQ pain HPI [...] morphine (Chest pain) Socia (more content not included)...[facility] Result Comment: Electronically Signed By: SOL ESPINOZA, Sanjay Paredes\Date and Time Signed: 08/20/22 10:27 ESTEvaluation + Plan note No data available for this section [facility] [place] Evaluation noteNo assessment information available [facility] Work Phone: Evaluation noteNo InformationNortThomas Jefferson [facility] Hospital 3ROAM Other Evaluation note* Diagnosis Thyroid nodule (CMS/HCC) Nontoxic uninodular goiter documented in this encounter [facility] HealthcareEvaluation note* Diagnosis Thyroid mass (CMS/HCC)- Primary Unspecified disorder of thyroid documented in this encounter [facility]* Diagnosis Malignant neoplasm of thyroid gland (CMS/HCC)- Primary Malignant neoplasm of thyroid gland Status post partial thyroidectomy (CMS/HCC) Other postprocedural status documented in this encounter [facility] note* Diagnosis Malignant neoplasm of thyroid gland (CMS/HCC)- Primary Malignant neoplasm of thyroid gland Status post partial thyroidectomy (CMS/HCC) Other postprocedural status documented in this encounter [facility] HealthcareHistory general Narrative - Reported* Type Description Date Medical History depression Medical History bradycardia Medical History tachycardia Surgical History tonsillectomy Surgical History pylenol cysts Surgical History wisdom teeth Surgical History plantar fasciitis, tarsal tunne l x 2 right foot [facility] Other History general Narrative - Reported* Type Description Date Medical History depression Medical History bradycardia Medical History tachycardia Surgical History tonsillectomy Surgical History pylenol cysts Surgical History wisdom teeth Surgical History plantar fasciitis, tarsal tunne l x 2 right foot Surgical History right thumb I & D 09/28/2022 [facility] Other Hospital Discharge instructions No data available for this section [facility] [place] Progress note No data available for this section [facility] [place] Chief Complaint and Reason for Visit Chief [...] Active Bonnie Jeffrey MD Attending Provider Active Bilingual Case Manager Relationship Specialty Start Date End Date Donnell Brooke MD [address] [place] [address] PCP - General Family Medicine 11/18/23 Willa Hanks DO [address] [place] [address] Referring Physician Neurology 11/18/23 Edis Morales DO [address] [place] [address] Otolaryngology 09/01/24 Bilingual Case Manager Relationship Specialty Start Date End Date Donnell Brooke MD [address] [place] [phone]91 PCP - General Family Medicine 11/18/23 Willa Hanks DO [address] [place] [address] Referring Physician Neurology 11/18/23 Edis Morales DO [address] [place] [address] Otolaryngology 09/01/24 Bilingual Case Manager Relationship Specialty Start Date End Date Donnell Brooke MD [address] [place] [address] PCP - General Family Medicine 11/18/23 Willa Hanks DO [address] [place] [address] Referring Physician Neurology 11/18/23 Edis Morales DO [address] [place] [address] Otolaryngology 09/01/24 Team Status: Inactive Member Role [...] September 07, 2024 End: September 07, 2024 Bilingual Case Manager Relationship Specialty Start Date End Date Donnell Brooke MD [facility] [place] [address] PCP - General Family Medicine 11/18/23 Willa Hanks DO [address] [place] [address] Referring Physician Neurology 11/18/23 Edis Morales DO [address] [place] [address] Otolaryngology 09/01/24 Bilingual Case Manager Relationship Specialty Start Date End Date Donnell Brooke MD [address] [place] [address] PCP - General Family Medicine 11/18/23 Willa Hanks DO [address] [place] [address] Referring Physician Neurology 11/18/23 Edis Morales, [address] [place] [address] Otolaryngology 09/01/24 Bilingual Case Manager Relationship Specialty Start Date End Date Donnell Brooke MD [address] [place] [address] PCP - General Family Medicine 11/18/23 Willa Hanks DO [address] [place] [address] Referring Physician Neurology 11/18/23 Edis Morales, [address] [place] [address] Otolaryngology 09/01/24 Bilingual Case Manager Relationship Specialty Start Date End Date Donnell Brooke MD [address] [place] [address] PCP - General Family Medicine 11/18/23 Willa Hanks DO [address] [place] [address] Referring Physician Neurology 11/18/23 Edis Morales, [address] [place] [address] Otolaryngology 09/01/24 Goals (unrecognized section and content) Goals may be documented in a n alternate section INFORMATION SOURCE (unrecogn ized section and content) DATE CREATED AUTHOR 09/29/2022 [facility] DATE CREATED AUTHOR AUTHOR'S ORGANIZ ATION 12/01/2022 [facility] DATE CREATED AUTHOR AUTHOR'S ORGANIZ ATION 10/03/2024 [facility] DATE CREATED AUTHOR AUTHOR'S ORGANIZ ATION 10/27/2024 [facility] EPIC REASON FOR VISIT [...] BE BASED ON THE PRIMARY CLINICAL RECORDS. [email or web address] provides no warranty or guarantee of the accuracy or completeness of information in this document.
[2024-12-14 15:17] LABS: Anion Gap 11.9; BUN Creatinine Ratio 10.9; Carbon Dioxide 30.8 mmol/L (21.0-32.0); Chloride 101 mmol/L (98-107); Estimated GFR (African America >60 (>=60 mL/min/1.73m^2); Estimated GFR (Non-African Ame 52 (>=60 mL/min/1.73m^2); Glucose 94 mg/dL (74-106); Potassium 3.7 mmol/L (3.5-5.1); Sodium 140 mmol/L (136-145)
== END 2024-12-14 14:32 | disposition home or self-care (01) ==
PROVIDERS: PCP Family Medicine; Visit Provider Family Medicine
DX: I95.1 Orthostatic hypotension (principal)
CPT/HCPCS: 36415; 80048; 82306

== ENCOUNTER 2024-12-28 08:28 | Outpatient (OUT) | payer OTHER, SELFPAY ==
--- NOTE | 2024-12-28 08:32 | MR_ITS ---
[facility] [place] [id number] Patient Name: JAREK FIELD MRN: [id number] date: 1990 Sex: F Assigned Patient Location: MRI Current Patient Location: MRI Accession/Order Number: [id number] Exam Date: 12/28/2024 11:58 Report Date: 12/28/2024 12:04 At the request of: ANASTACIA MAHONEY Procedure: MR knee RT wo con EXAMINATION: MRI OF THE RIGHT KNEE CLINICAL DATA: Right knee pain after fall 1 month ago. Leg weakness. COMPARISON: Right knee series 12/04/2024 TECHNIQUE: Multiecho, multiplanar imaging was performed with use of an extremity coil. No contrast was administered. FINDINGS: Joint:Moderate joint effusion. No significant bone marrow edema. Degenerative spurring with cystic changes in the region of the tibial spines. No acute fracture line is seen. Soft tissues: Anterior soft tissue swelling. No fluid collection. Quadriceps/Patellar tendon/retinaculum: Normal Muscles: Normal ACL:Normal PCL:Normal Medial Meniscus:Tear posterior horn. Lateral Meniscus:Normal MCL:Grade 1 sprain LCL complex: Normal MR/MR knee RT wo con IMPRESSION: MODERATE JOINT EFFUSION WITH DEGENERATIVE CHANGES, TEAR POSTERIOR HORN MEDIAL MENISCUS AND GRADE 1 SPRAIN MCL. NO FRACTURE IS SEEN. Impression dictated by: Willie Dong Jr., D.O. 12/28/2024 12:04 PM Dictation Location: [place] [address] Electronically authenticated by: [id number] Y Date: 12/28/2024 12:04
== END 2024-12-28 08:29 | disposition home or self-care (01) ==
LOC: MRI 08:28
PROVIDERS: PCP Family Medicine; Visit Provider Physician Assistant
DX: M25.561 Pain in right knee (principal); M25.461 Effusion, right knee; S83.241A Other tear of medial meniscus, current injury, right knee, initial encounter; S83.411A Sprain of medial collateral ligament of right knee, initial encounter
CPT/HCPCS: 73721

== ENCOUNTER 2025-01-30 10:13 | Outpatient (OUT) | payer OTHER, SELFPAY ==
--- OUTSIDE RECORDS SUMMARY | 2024-08-31 06:20 | XMS_ITS ---
Author Organization [facility] Address [address] [place] [address] Care Team Providers Care Tire Inspector Name Role Phone Felipe Brooke Primary Care Provider Paulino Giordano Unavailable [phone] Results Component Value Reference Range Notes SCC- TIB/FIB RIGHT 80805 Reviewed date:09/03/2024 04:07:08 PM Interpretation: Performing Lab: Notes/Report: REASON FOR VISIT RT ANKL FX CHECK Encounters Encounter Location Date Provider Diagnosis [facility] [facility] [address] [facility] [place] [address] [place] [address] 08/31/2024 Paulino Zhu Other closed fracture of distal end of right fibula, initial encounter S82.831A and Closed avulsion fracture of distal end of right fibula, initial encounter S82.831A Assessments Encounter Date Diagnosis (ICD Code) Assessment Notes Treatment Notes Treatment Clinical Notes Section Notes 08/31/2024 Other closed fracture of distal end of right fibula, initial encounter (ICD-10 - S82.831A) 08/31/2024 Closed avulsion fracture of distal end of right fibula, initial encounter (ICD-10 - S82.831A) Plan Of Treatment Next Appt Details Provider Name:Paulino Corea and, 02/01/2025 10:20:00 AM, [address], [address], [place], [address], Progress Notes * JAREK FIELD RDOB: [birth year] (34 yo F)Acc No.[id number]:08/31/2024 Patient: JAREK CARROLL Provider: Lynette Zhu MD :1990 A ge:34 Y S ex:Female Date:08/31/2024 Address:[address] [place] [address] [place], [id number] Pcp:Felipe Brooke Subjective: * Chief Complaints: * 1 . RT ANKL FX CHECK. * Medical History: Objective: * Vitals: Assessment: * Assessment: 1. O ther closed fracture of distal end of right fibula, initial encounter - S82.831A ? 2 . C losed avulsion fracture of distal end of right fibula, initial encounter - S82.831A? Plan: * Treatment: 2. C losed avulsion fracture of distal end of right fibula, initial encounter I maging: SCC- TIB/FIB RIGHT 98280 (Performed Date - 09/03/2024) Forms: * Images: * Electronic signature of Tuan Zhu MD on 01/30/2025 at 07:38 AM EDT Sign off status: Pending * Provider: Lynette Zhu MD Date: 0 08/31/2024 Generated for Aurelia jha/Leonela/Rebelitting on: 0 01/30/2025 07:38 AM EDT
--- OUTSIDE RECORDS SUMMARY | 2024-12-07 05:50 | XMS_ITS ---
Author Organization [facility] Address [address] [place] [address] Care Team Providers Care Supervisor Airplane Flight Attendant Name Role Phone Felipe Brooke Primary Care Provider Unavailarianna rachel Paulino Zhu Unavailable [phone] Yvette Smith Unavailable [phone] Reason For Referral Reason APPROVED .......JARED BANSAL OBTAIN AUTHORIZATION FOR MRI RIGHT KNEE Diagnosis 1 Acute pain of right knee (M25.561) Referral Organization [facility] Referring Provider First Name Paulino Referring Provider Last Name Audra Referring Provider Speciality Orthopedic Surgery Referred Organization [facility] Lynette walters Referred Address [place], [place], Procedure 1 MRI Joint Lower Ext w/o Dye ([id number]) General Notes Elle Olsen 025 01:15:16 PM >APPROVED [employer] Authorization #[id number] Tracking #[id number], VALID 12/08/2024-01/22/2025 COPY IN CHART MA NOTIFIED REF FXAED TO Domingo OSMAN Kimberly 12/08/2024 09:24:31 AM >Faxed to Priti Referral Priority Routine REASON FOR VISIT RT KNEE Medications Medication SIG (Take, Route, Frequency, Duration) Notes Start Date End Date Status acebutolol Active DULoxetine Active Social History Tobacco Use: Social History Observation Description Date Details (start date - stop date) Never Smoker NA - NA AUDIT-C (Standard) Question Answer Notes Did you have a drink contain ing alcohol in the past year? Yes How often did you have six o r more drinks on one occasion in the past year? Never (0 point) How many drinks did you have on a typical day when you were drinking in the past year? 1 or 2 drinks (0 point) How often did you have a dri nk containing alcohol in the past year? Monthly or less (1 point) Points 1 Interpretation Negative Tobacco Control (Standard) Question Answer Notes Tobacco use: Nonsmoker Vital Signs Height 5'4 in 12/07/2024 Weight 265 lbs 12/07/2024 BMI 45.48 12/07/2024 Encounters Encounter Location Date Provider Diagnosis [facility] [address] [place] [address] [place] [address] 12/07/2024 Yvette [place] Acute pain of right knee M25.561 Assessments Encounter Date Diagnosis (ICD Code) Assessment Notes Treatment Notes Treatment Clinical Notes Section Notes 12/07/2024 Acute pain of right knee (ICD-10 - M25.561) Right knee pain and effusion-pos sible meniscus tear 12/07/2024 Other For the patient 's right knee pain after fall I am going to order an MRI to evaluate for a meniscus tear or occult fracture. She we will use crutches and limit her weightbearing to the right lower extremity. We will see her back once imaging is obtained to review and offer further recommendations. Right knee pain and effusion-pos sible meniscus tear Plan Of Treatment Treatment Notes Assessment Notes Other For the patient's ri ght knee pain after fall I am going to order an MRI to evaluate for a meniscus tear or occult fracture. She we will use crutches and limit her weightbearing to the right lower extremity. We will see her back once imaging is obtained to review and offer further recommendations. Pending Test Test Name Order Date MRI : Knee W/O Contrast Right - 40325 Referrals Referral Date Details 12/07/2024 12/07/2024, APPROVED .......PLEASE OBTAIN AUTHORIZATION FOR MRI RIGHT KNEE, [place], [place] Next Appt Details Follow Up: AFTER MRI, Reason : Provider Name:Paulino Corae and, 02/01/2025 10:20:00 AM, [address], [address], [place], [address], Progress Notes * JAREK FIELD RDOB: [birth year] (34 yo F)Acc No.[id number]:12/07/2024 Patient: JAREK CARROLL Provider: DENZEL Kenny :1990 A ge:34 Y S ex:Female Date:12/07/2024 Address:[address] [place] [address] [address], [id number] Pcp:Felipe Brooke Subjective: * Chief Complaints: * R T KNEE * HPI: G eneral Follow Up Information: Patient returns to the office today with a new complaint of right knee pain and swelling for 3 days after she had a fall from standing on Saturday. She had presented to the [facility] ER that day where x-rays were negative for apparent fracture or dislocation. She was placed in a knee immobilizer and given crutches. She is had a lot of pain with attempting to place any weight through the right lower extremity. She states that the knee immobilizer actually makes her leg felt worse. * Medical History: * Surgical History: * Social History: W hat is your place of residence?: home . A LORI-C (Standard) D id you have a drink containing alcohol in the past year? Y es, H ow often did you have six or more drinks on one occasion in the past year? N ever (0 point), H ow many drinks did you have on a typical day when you were drinking in the past year? 1 or 2 drinks (0 point), H ow often did you have a drink containing alcohol in the past year? M onthly or less (1 point), P oints 1 ,?Interpretation N egative. T obacco Control (Standard) T obacco use: N onsmoker.? * Medications: T akingDULoxetine acebutolol Medication List reviewed and reconciled with the patientTaking DULoxetine Taking acebutolol Medication List reviewed and reconciled with the patient Objective: * Vitals: H t: 5'4 , Wt: 265 lbs, BMI:45.48. * Examination: G eneral examination: O n exam patient is in no distress, age-appropriate, alert and oriented x 3. On inspection of the knee there is a joint effusion, no erythema, no warmth to touch, no ecchymosis. There is anterior tenderness with palpation, also joint line tenderness. Patient ambulates with antalgic gait and is utilizing crutches. Knee ROM 0-100 as tolerated. Positive Brittney's for pain. Negative Kathy. Negative posterior drawer. Varus/valgus stress to the knee painful but no laxity appreciated. Bilateral lower extremities are grossly distally neurovascularly intact. X -ray Imaging Studies: 4 view nonweightbearing x-rays were reviewed from the [facility] from 12/04/2024 that reveal some periarticular osteophytes but no apparent fracture and no dislocation. Patellofemoral osteophytes noted as well. Assessment: * Assessment: 1. A cute pain of right knee - M25.561 (Primary) Right knee pain and effusion -possible meniscus tear. Plan: * Treatment: 2. O thers Notes: For the patient's right knee pain after fall I am going to order an MRI to evaluate for a meniscus tear or occult fracture. She we will use crutches and limit her weightbearing to the right lower extremity. We will see her back once imaging is obtained to review and offer further recommendations. * Procedure Codes: * Follow Up: A FTER MRI Forms: * Images: * Sign off status: Completed true * Provider: DENZEL Kenny Date: 0 12/07/2024 Generated for Aurelia jha/Leonela/Rebelitting on: 0 01/30/2025 07:38 AM EDT History and Physical Notes * HPI (History of Present Illness) Category Sub-Category Detail Notes Category Not es General Follow Up Information Patient returns to t he office today with a new complaint of right knee pain and swelling for 3 days after she had a fall from standing on Saturday. She had presented to the [facility] ER that day where x-rays were negative for apparent fracture or dislocation. She was placed in a knee immobilizer and given crutches. She is had a lot of pain with attempting to place any weight through the right lower extremity. She states that the knee immobilizer actually makes her leg felt worse. Examination Category Sub-Category Detail Notes Category Not es General examination On exam patient is in no distress, age-appropriate, alert and oriented x 3. On inspection of the knee there is a joint effusion, no erythema, no warmth to touch, no ecchymosis. There is anterior tenderness with palpation, also joint line tenderness. Patient ambulates with antalgic gait and is utilizing crutches. Knee ROM 0-100 as tolerated. Positive Brittney's for pain. Negative Kathy. Negative posterior drawer. Varus/valgus stress to the knee painful but no laxity appreciated. Bilateral lower extremities are grossly distally neurovascularly intact. X-ray Imaging Studies 4 view nonweightbearing x-rays were reviewed from the [facility] from 12/04/2024 that reveal some periarticular osteophytes but no apparent fracture and no dislocation. Patellofemoral osteophytes noted as well. Consultation Request Notes Referral Date Referring Provider Referred Provider Not es 12/07/2024 Paulino Zhu , APPROVED .. .....PLEASE OBTAIN AUTHORIZATION FOR MRI RIGHT KNEE
--- OUTSIDE RECORDS SUMMARY | 2025-01-04 06:10 | XMS_ITS ---
Author Organization [facility] Address [address] [place] [address] Care Team Providers Care Ore [employer]er [employer]asting Name Role Phone Felipe Brooke Primary Care Provider Kellie Paulino Benítez Unavailable [phone] REASON FOR VISIT RIGHT KNEE MRI F/U Medications Medication SIG (Take, Route, Frequency, Duration) [...] use: Nonsmoker Vital Signs Height 5'4 in 01/04/2025 Weight 265 lbs 01/04/2025 BMI 45.48 01/04/2025 Encounters Encounter Location Date Provider Diagnosis [facility] Office [address] [place] [address] [address] [place] [address] 01/04/2025 Paulino Audra Sprain of medial collateral ligament of right knee, initial encounter S83.411A Assessments Encounter Date Diagnosis (ICD Code) Assessment Notes Treatment Notes Treatment Clinical Notes Section Notes 01/04/2025 Sprain of medial collateral ligament of right knee, initial encounter (ICD-10 - S83.411A) 01/04/2025 Other For right knee MCL strain I recommended symptomatic treatment with crutches. She will follow-up in 4 weeks to reassess her progress and consider therapy at that time. Import medication Plan Of Treatment Treatment Notes Assessment Notes Other For right knee MCL strain I recommended symptomatic treatment with crutches. She will follow-up in 4 weeks to reassess her progress and consider therapy at that time. Import medication Next Appt Details Follow Up: 4 Weeks, Reason: Provider Name:Paulino Corea and, 02/01/2025 10:20:00 AM, [address] [facility], [address], [place], [address], Progress Notes * JAREK FIELD RDOB: [birth year] (34 yo F)Acc No.[id number]:01/04/2025 Patient: JAREK CARROLL Provider: Lynette Zhu MD :1990 A ge:34 Y S ex:Female Date:01/04/2025 Address:[address] [place] [address] , [facility], [phone] Pcp:Felipe Brooke Subjective: * Chief Complaints: * 1 . RIGHT KNEE MRI F/U. * HPI: G eneral Follow Up Information: Patient presents today for follow-up of her right knee MRI scan. She continues to have pain that she localizes to the medial aspect of her knee. * Medical History: D epression, Tachycardia: , Mental Illness:, GI Problems: , Stomach ulcers, Sto. * Surgical History: F oot surgery , Hand surgery 08/2022, Tonsillectomy . * Family History: S iblings: diagnosed with Heart trouble. F ather: diagnosed with Arthritis, Heart trouble.? * Social History: W hat is your [...] obacco use: N onsmoker.? * Medications: T aking DULoxetine , Taking acebutolol , Medication List reviewed and reconciled with the patient Objective: * Vitals: H t: 5'4 , Wt: 265 lbs, BMI:45.48. * Examination: G eneral examination: E xamination today of her right knee reveals tenderness over the medial collateral ligament. Pain reproduction with valgus stress of the knee but no instability. M RI Imaging Studies: I have reviewed her MRI report and images which show strain of the MCL, degenerative joint disease, some signal change within the medial meniscus that has been read as a tear of the posterior horn but by my read does not clearly represent a tear. Assessment: * Assessment: 1. S prain of medial collateral ligament of right knee, initial encounter - S83.411A (Primary)? Plan: * Treatment: * Follow Up: 4 Weeks Forms: * Images: * Electronic signature of Tuan Zhu MD on 01/30/2025 at 07:38 AM EDT Sign off status: Pending * Provider: Lynette Zhu MD Date: 0 01/04/2025 Generated for Aurelia jha/Leonela/Rebelitting on: 0 01/30/2025 07:38 AM EDT History and Physical Notes * HPI (History of Present Illness) Category Sub-Category Detail Notes Category Not es General Follow Up Information Patient presents tod ay for follow-up of her right knee MRI scan. She continues to have pain that she localizes to the medial aspect of her knee. Examination Category Sub-Category Detail Notes Category Not es General examination Examinat ion today of her right knee reveals tenderness over the medial collateral ligament. Pain reproduction with valgus stress of the knee but no instability. MRI Imaging Studies I have r eviewed her MRI report and images which show strain of the MCL, degenerative joint disease, some signal change within the medial meniscus that has been read as a tear of the posterior horn but by my read does not clearly represent a tear.
--- OUTSIDE RECORDS SUMMARY | 2025-01-19 04:00 | XMS_ITS ---
Author Organization [facility] in [place] Address [address] [place] [address] Care Team Providers Care Doormaker Name Role Phone Ramón Brooke Primary Care Provider [phone] Allergies Allergen (clinical drug ingredient) Drug/Non Drug Allergy documented on EMR Reaction Allergy Type Onset Date Status irbesartan Irbesartan Unknown Drug Allergy Activ e REASON FOR VISIT finger injury Medications Medication SIG (Take, Route, Frequency, Duration) Notes Start Date End Date Status tiZANidine HCl 4 MG TAKE 2 TABLETS BY MOUTH EVERY DAY AT BEDTIME for 30 Active Potassium Chloride ER 20 MEQ TAKE 1 TABL ET BY MOUTH TWICE A DAY WITH FOOD for 90 Active Adipex-P 37.5 MG 1 tablet before breakfast Orally Once a day 01/19/2025 Active Triamterene-HCTZ 75-50 MG 1 tablet in th e morning Orally Once a day for 90 days Active Vitamin D 50 MCG (1999 UT) 1 tablet Oral ly Once a day for 90 day(s) 10/26/2024 Active Levothyroxine Sodium 50 MCG 1 tablet in the morning on an empty stomach Orally Once a day for 30 days 12/30/2024 Active Lasix 20 MG 1 tablet Orally Once a day for 3 days 04/15/2024 Active Pantoprazole Sodium 40 MG TAKE 1 TABLET BY MOUTH TWICE A DAY FOR 90 DAYS for 90 Active Oxaprozin 600 mg TAKE 1 TABLET DAILY Active Iron (Ferrous Sulfate) 325 ( 65 Fe) MG 1 tablet Orally bid for 30 days 10/26/2024 Active Cefdinir 300 MG 2 capsule Orally onc e a day for 10 days 01/18/2025 Active DULoxetine HCl 60 MG 1 capsule Orally On ce a day for 30 days 03/06/2024 Active Doxycycline Monohydrate 100 MG 1 capsule Orally bid for 10 days 01/18/2025 Active hydroCHLOROthiazide 25 MG 1 tablet in th e morning Orally Once a day for 30 days 12/07/2024 Active Imitrex 100 MG 1 tablet at least 2 hours between doses as needed Orally Twice a day for 30 days 10/04/2023 Active Carafate 1 GM 1 tablet on an empty stomach Orally before each meal for 30 days 09/19/2023 Active Air Cast Size to fit Wear 18/03. remove for showers Dx: chip fracture of ankle 05/22/2024 Active Acebutolol HCl 200 mg TAKE 1 CAPSULE ora l bid for 90 days Active Immunizations Vaccine Route Administration Date Status Comme nts Tdap (Adacel) IM Intramuscular 01/19/2025 Administered Social History Tobacco Use: Social History Observation Description Date Details (start date - stop date) Never Smoker NA - NA Tobacco Use/Smoking Question Answer Notes Patient is a nonsmoker Problems Problem Type SNOMED Code ICD Code Onset Dates Problem Status W/U Status Risk Notes Problem Cellulitis (622723859) Cellulitis (L03.90) Active confirmed Vital Signs Weight 275 lbs 01/19/2025 Height 64 in 01/19/2025 Blood pressure systolic 132 mm Hg 01/20/20 25 Blood pressure diastolic 84 mm Hg 025 BMI 47.2 kg/m2 01/19/2025 Encounters Encounter Location Date Provider Diagnosis [facility] [address] [place] [address] 01/19/2025 Ramón Hoy Cellulitis L03.90 ; Laceration of hand S61.419A and Encounter for immunization Z23 Assessments Encounter Date Diagnosis (ICD Code) Assessment Notes Treatment Notes Treatment Clinical Notes Section Notes 01/19/2025 Cellulitis (ICD-10 - L03.90) insid linew of demarcation - says swelling better since on AB 01/19/2025 Laceration of hand (ICD-10 - S61.419A) 01/19/2025 Encounter for immunization (ICD-10 - Z23) Plan Of Treatment Medication Medication Name Sig Start Date Stop Date Notes Adipex-P 37.5 MG 1 tablet before del kfast Orally Once a day 01/19/2025 Treatment Notes Assessment Notes Cellulitis insid linew of raquel cation - says swelling better since on AB Next Appt Details Provider Name:Ramón Clark Edwardo, 08:15:00 AM, [address] [facility] [place], [address], Progress Notes * Veronica ROSS RDOB: [birth year] (34 yo F)Acc No.[id number]:01/19/2025 Progress Note Patient: Veronica CARROLL Provider: Ale Brooke ([facility])MD :1990 A ge:34 Y S ex:Female Date:01/19/2025 Address:[address] [place] [address] [address], [id number] Check In:08:04 AM ESTCheck O ut:08:20 AM EST Subjective: * Chief Complaints: * F kamar injury * ROS: E ENT: hearing changes d enies. v isual changes d enies.?non-healing mouth sores d enies. s wollen glands or neck lumps d enies. h oarseness d enies. s ore throat d enies. d ifficulty swallowing d enies. n ose bleeds d enies. n negro congestion d enies. e ar ache d enies. e ar discharge?denies. r inging in ears d enies. l ight sensitivity d enies. e ye pain d enies. b lurring d enies. e ye irritation d enies. d ouble vision d enies.?vision loss d enies. G eneral/Constitutional: Sweats: D enies. F atigue d enies. S leep problems d enies. A norexia d enies. M alaise d enies. W eight loss d enies.?Fatigue or Weakness d enies. F ever or Chills d enies. C ardiovascular: Shortness of Breath w/lying flat d enies. L ightheadedness/dizziness d enies. C hest tightness/ heavy pressure d enies. S welling of legs, ankles, or feet d enies. W aking up with shortness of breath d enies. C hest pain denies. P alpitations d enies. W eight gain d enies. R espiratory: Chronic or frequent cough d enies. C oughing up blood?denies. D ifficulty breathing d enies. P roductive cough d enies. S noring?denies. S hortness of breath that awakens from sleep (PND) d enies. C hest pain d enies. S putum production d enies. W heezing d enies. M usculoskeletal: Joint pain d enies. J oint Fluid d enies. B ack pain d enies. K nee pain d enies. N geremias pain d enies. J oint Stiffness d enies. M uscle cramps d enies. W eakness of muscles d enies. A rthritis d enies. M uscle aches d enies. P ain in shoulder(s) d enies. S wollen joints d enies. * Active Problem List K29.50 Unspecified chronic gastritis without bleeding Modified On:02/20/2023 Status:confirmed I95.1 Orthostatic hypotens ion Modified On:02/20/2023 Status:confirmed M54.12 Radiculopathy, cervi ivelisse region Modified On:03/22/2023 Status:confirmed R51.9 Headache, unspecifie d Modified On:06/19/2023 Status:confirmed F51.01 Primary insomnia Modified On:02/20/2023U Status:confirmed M75.40 Impingement syndrome of unspecified shoulder Modified On:02/20/2023U Status:confirmed E78.00 Pure hypercholestero lemia, unspecified Modified On:02/20/2023U Status:confirmed Z00.00 Well adult Modified On:02/20/2023 Status:confirmed I10 Essential (primary) hypertension Modified On:09/23/2023U Status:confirmed R20.2 Paresthesia of skin Modified On:06/19/2023U Status:confirmed E04.9 Enlarged thyroid Modified On:06/19/2023U Status:confirmed I10 Benign essential HTN Modified On:06/22/2023 Status:confirmed K21.9 Acid reflux Modified On:06/22/2023 Status:confirmed R22.1 Neck mass Modified On:07/01/2023 Status:confirmed I10 BP (high blood press ure) Modified On:07/29/2023 Status:confirmed K21.9 GERD (gastroesophage al reflux disease) Modified On:07/29/2023 Status:confirmed E83.42 Hypomagnesemia Modified On:07/29/2023 Status:confirmed G43.909 Migraine Modified On:09/23/2023 Status:confirmed R20.2 Paresthesia Modified On:11/11/2023 Status:confirmed M25.571 Ankle pain, right Modified On:05/21/2024 Status:confirmed E04.1 Right thyroid nodule Modified On:08/24/2024 Status:confirmed C73 Papillary carcinoma of thyroid Modified On:09/22/2024 Status:confirmed L03.90 Cellulitis Modified On:01/19/2025 Status:confirmed * Medical History: * Surgical History: Dr. Zara JAUREGUI 08/2022Right Foot surgery x2 Tailbone surgery x 6 Tonsills Right Hemithyroidectomy- Dr Morales 08/2024 * Hospitalization/Major Diagno stic Procedure: M igraine 05/2023 * Family History: F ather: , hypertension, Hypercholesterolemia, diagnosed with Unspecified essential hypertension, Unspecified heart disease. M other: alive, Heart Disease, Hypercholesterolemia, hypertension, diagnosed with Diabetes mellitus without mention of complication, type II or unspecified type, not stated as uncontrolled, Unspecified essential hypertension, Unspecified heart disease. B rother(s): alive, depression. S on(s): alive. D juanaer(s): alive. 1 brother(s) . 1 son(s) , 1 daughter(s) . . * Social History: T obacco Use: T obacco Use/Smoking P atient is a n onsmoker * Medications: T akingAcebutolol HCl 200 mg Capsule TAKE 1 CAPSULE oral bid Air Cast Size to fit - Wear 18/03. remove for showers Dx: chip fracture of ankleCarafate(Sucralfate) 1 GM Tablet 1 tablet on an empty stomach Orally before each meal Cefdinir 300 MG Capsule 2 capsule Orally once a day Doxycycline Monohydrate 100 MG Capsule 1 capsule Orally bid DULoxetine HCl 60 MG Capsule Delayed Release Particles 1 capsule Orally Once a day hydroCHLOROthiazide 25 MG Tablet 1 tablet in the morning Orally Once a day Imitrex(SUMAtriptan Succinate) 100 MG Tablet 1 tablet at least 2 hours between doses as needed Orally Twice a day Iron (Ferrous Sulfate) 325 (65 Fe) MG Tablet 1 tablet Orally bid Lasix(Furosemide) 20 MG Tablet 1 tablet Orally Once a day Levothyroxine Sodium 50 MCG Tablet 1 tablet in the morning on an empty stomach Orally Once a day Oxaprozin 600 mg Tablet TAKE 1 TABLET DAILY Pantoprazole Sodium 40 MG Tablet Delayed Release TAKE 1 TABLET BY MOUTH TWICE A DAY FOR 90 DAYS Potassium Chloride ER 20 MEQ Tablet Extended Release TAKE 1 TABLET BY MOUTH TWICE A DAY WITH FOOD tiZANidine HCl 4 MG Tablet TAKE 2 TABLETS BY MOUTH EVERY DAY AT BEDTIME Triamterene-HCTZ 75-50 MG Tablet 1 tablet in the morning Orally Once a day Vitamin D 50 MCG (1999 UT) Tablet 1 tablet Orally Once a day Medication List reviewed and reconciled with the patientTaking Acebutolol HCl 200 mg Capsule TAKE 1 CAPSULE oral bid Taking Air Cast Size to fit - Wear 18/03. remove for showers Dx: chip fracture of ankleTaking Carafate(Sucralfate) 1 GM Tablet 1 tablet on an empty stomach Orally before each meal Taking Cefdinir 300 MG Capsule 2 capsule Orally once a day Taking Doxycycline Monohydrate 100 MG Capsule 1 capsule Orally bid Taking DULoxetine HCl 60 MG Capsule Delayed Release Particles 1 capsule Orally Once a day Taking hydroCHLOROthiazide 25 MG Tablet 1 tablet in the morning Orally Once a day Taking Imitrex(SUMAtriptan Succinate) 100 MG Tablet 1 tablet at least 2 hours between doses as needed Orally Twice a day Taking Iron (Ferrous Sulfate) 325 (65 Fe) MG Tablet 1 tablet Orally bid Taking Lasix(Furosemide) 20 MG Tablet 1 tablet Orally Once a day Taking Levothyroxine Sodium 50 MCG Tablet 1 tablet in the morning on an empty stomach Orally Once a day Taking Oxaprozin 600 mg Tablet TAKE 1 TABLET DAILY Taking Pantoprazole Sodium 40 MG Tablet Delayed Release TAKE 1 TABLET BY MOUTH TWICE A DAY FOR 90 DAYS Taking Potassium Chloride ER 20 MEQ Tablet Extended Release TAKE 1 TABLET BY MOUTH TWICE A DAY WITH FOOD Taking tiZANidine HCl 4 MG Tablet TAKE 2 TABLETS BY MOUTH EVERY DAY AT BEDTIME Taking Triamterene-HCTZ 75-50 MG Tablet 1 tablet in the morning Orally Once a day Taking Vitamin D 50 MCG (1999 UT) Tablet 1 tablet Orally Once a day Medication List reviewed and reconciled with the patient * Allergies: I rbesartanno[Allergies Verified] Objective: * Vitals: W t:275lbs, Ht: 64 in, BP:132/84mm Hg, BMI:47.2Index, Ht-cm: 162.56 cm, Wt-k.74 kg. * Examination: P hysical Exam: GENERAL: w ell developed, well nourished, in no acute distress. HEAD: n ormocephalic/atraumatic. EYES: p upils equal, round and reactive to light, conjunctivae and sclerae normal. EARS: n o deformity or lesion of external ear, canals and TM appear normal bilaterally, TM's intact, not inflamed with normal light reflex, hearing grossly normal to conversational speech. NOSE: n o deformity, discharge, inflammation, or lesions.? MOUTH: m ucous membranes moist, normal oropharynx and posterior pharynx without lesions or exudates, tongue normal, dentition normal. NECK: n geremias supple, no masses or palpable cervical nodes, trachea midline, thyroid without nodules, masses, tenderness, or enlargement. CHEST: n o chest wall deformity, no chest wall tenderness.? LUNGS: n ormal respiratory effort and clear to auscultation, no wheezes, rales, or rhonchi, good air exchange. CARDIO: r egular rate and rhythm, normal S1 and S2, nor murmur, rub, or gallop. PULSES: n ormal capillary refill. ABDOMEN: s oft, non-distended, non-tender, no masses. MUSCULOSKELETAL: n o deformity or scoliosis noted, normal range of motion, joints normal, no erythema, edema, effusion, or ecchymosis. EXTREMITY: s ome swelling and erythena 3rd Digit - clemente per pt and can move finger tip. NEUROLOGIC: g rossly normal. SKIN: n o rashes, ulcerations, or suspicious lesions. LYMPH NODES: n o cervical adenopathy, nodes normal. MENTAL STATUS: a lert and oriented x3, normal mood and affect. Assessment: * Assessment: 1. C ellulitis - L03.90 (Primary) 2 . L aceration of hand - S61.419A ? 3 . E ncounter for immunization - Z23 Plan: * Treatment: * Immunizations: Tdap (Adacel) : 0.5 mL (Route: Intramuscular) given by Camilla Doshi SA on Left Deltoid (Laceration of hand) * Procedure Codes: 9 0715 TDAP-IM >097719 IMMUNIZATION ADMIN. 1 VAC * * Sign off status: Completed Visit Status: C HK (Check Out) true * Provider: Ale Brooke ([facility])MD Date: 0 01/19/2025 Generated for Printi ng/Faxing/eTransmitting on: 0 01/30/2025 10:15 AM EDT History and Physical Notes * Examination Category Sub-Category Detail Notes Category Not es Physical Exam GENERAL: well developed, well nourished, in no acute distress HEAD: normocephalic/atraum atic EYES: pupils equal, round and reactive to light, conjunctivae and sclerae normal EARS: no deformity or lesi on of external ear, canals and TM appear normal bilaterally, TM's intact, not inflamed with normal light reflex, hearing grossly normal to conversational speech NOSE: no deformity, discha rge, inflammation, or lesions MOUTH: mucous membranes león st, normal oropharynx and posterior pharynx without lesions or exudates, tongue normal, dentition normal NECK: neck supple, no mass es or palpable cervical nodes, trachea midline, thyroid without nodules, masses, tenderness, or enlargement CHEST: no chest wall deform ity, no chest wall tenderness LUNGS: normal respiratory e ffort and clear to auscultation, no wheezes, rales, or rhonchi, good air exchange CARDIO: regular rate and rhy thm, normal S1 and S2, nor murmur, rub, or gallop PULSES: normal capillary ref ill ABDOMEN: soft, non-distended, non-tender, no masses RECTAL: MUSCULOSKELETAL: no deformity or scol iosis noted, normal range of motion, joints normal, no erythema, edema, effusion, or ecchymosis EXTREMITY: some swelling and er ythena 3rd Digit - clemente per pt and can move finger tip NEUROLOGIC: grossly normal SKIN: no rashes, ulceratio ns, or suspicious lesions LYMPH NODES: no cervical adenopat hy, nodes normal MENTAL STATUS: alert and oriented x 3, normal mood and affect
--- OUTSIDE RECORDS SUMMARY | 2025-01-22 11:00 | XMS_ITS ---
Author Organization [facility] in [place] Address [address] [place] [address] Care Team Providers Care Electron Beam Photo Mask Technician Name Role Phone EdwardoRamón Primary Care Provider REASON FOR VISIT finger needs drained Encounters Encounter Location Date Provider [facility] [address] [place] [phone] 01/22/2025 Ramón Brooke Plan Of Treatment Next Appt Details Provider Name:Ramón Brooke, 08:15:00 AM, [address] [place], [address], Progress Notes * Veronica ROSS RDOB: [birth year] (34 yo F)Acc No.[id number]:01/22/2025 UNLOCKED PROGRESS NOTE Progress Note Patient: Veronica CARROLL Provider: Ale Brooke MD ([facility]C) :1990 A ge:34 Y S ex:Female Date:01/22/2025 Address:[address] [place], [id number] Subjective: * Chief Complaints: * 1 . Finger needs drained. * Medical History: Objective: * Vitals: Assessment: Plan: * Treatment: * * Electronic signature of Ramón Brooke MD, [id number] on 01/30/2025 at 10:16 AM EDT Sign off status: Pending Visit Status: C ANC (Cancelled) * Provider: Ale MCINTYREMD Daron Date: 0 01/22/2025 Generated for Aurelia jha/Leonela/Monica on: 0 01/30/2025 10:16 AM EDT
--- OUTSIDE RECORDS SUMMARY | 2025-01-30 10:16 | XMS_ITS | Clinical Summary ---
Author Organization [facility] Address [address] [place] [address] Care Team Providers Care Lawn Sprinkler Servicer Name Role Phone Felipe Brooke MD Primary Care Provider [phone] Willa Hanks DO Unavailable [phone] Andrew Edis Gilda DO Unavailable [phone] Allergies Active Allergy Reactions Criticality Noted Date Comments Irbesartan 09/14/2024 Other Reaction(s): Unknown Reaction renal failure Morphine 08/29/2024 Other Reaction(s): Chest pain Silver 08/29/2024 Other Reaction(s): INFECTION Medications sucralfate (Carafate) 1 g tablet 5 Active pantoprazole (ProtoNix) 40 MG EC tablet Take 40 mg by mouth in the morning and 40 mg before bedtime. 4 Active acebutolol (Sectral) 200 MG capsule Take 200 mg by mouth in the morning and 200 mg before bedtime. 4 Active DULoxetine (Cymbalta) [address] capsule TAKE 1 CAPSULE BY MOUTH EVERY DAY FOR 30 DAYS 4 Active triamterene-hydroc hlorothiazide (Maxzide) 75-50 MG tablet TAKE 1 TABLET BY MOUTH EVERY DAY IN THE MORNING FOR 90 DAYS 4 Active potassium chloride CR (K-Tab) 20 MEQ ER tablet Take 20 mEq by mouth Take with food. 4 Active tiZANidine (Zanaflex) 4 MG tablet TAKE 2 TABLETS BY MOUTH EVERYDAY AT BEDTIME 4 Active oxaprozin (Daypro) 600 MG tablet Take 600 mg by mouth Daily 4 Active lamoTRIgine (LaMICtal) 200 MG tablet TAKE 1 & 1/2 (ONE & ONE-HALF) TABLETS BY MOUTH ONCE DAILY 4 Active levothyroxine (Synthroid) 50 MCG tabletIndications: Status post partial thyroidectomy (CMS/HCC) Take 1 tablet (50 mcg) by mouth in the morning. Take before meals. 30 tablet 1 5 Active cholecalciferol (Vitamin D-3) 50 MCG (2000 UT) tablet TAKE 1 TABLET BY MOUTH EVERY DAY FOR 90 DAYS 5 Active ferrous sulfate 325 (65 Fe) MG tablet 5 Active hydroCHLOROthiazid e (HYDRODiuril) 25 MG tablet Take 25 mg by mouth in the morning. 5 Active Resolved Problems Problem Noted Date Diagnosed Date Resolved Date Fracture of phalanx of finger 09/20/2024 09/20/2024 Overview (09/20/2024): Problem List clean-up per request of Phys. EHR Cmte Laceration of nail bed of finger 09/20/2024 09/20/2024 Overview (09/20/2024): Problem List clean-up per request of Phys. EHR Cmte Postoperative pain of extremity 09/20/2024 09/20/2024 Overview (09/20/2024): Problem List clean-up per request of Phys. EHR Cmte BMI 40.0-44.9, adult 08/29/2024 025 Cervical radiculopathy 08/29/202408/29 History of pilonidal cyst 08/29/2024 HTN (hypertension) 08/29/2024 5 Hypercholesteremia 08/29/2024 5 Insomnia 08/29/2024 08/29/2024 Migraines 08/29/2024 08/29/2024 Morbid obesity 08/29/2024 08/29/2024 Orthostatic hypotension 08/29/202411/2024 Encounters Date Type Department Care Team Description 12/24/2024 Refill [facility] [address] [place] [address] Edis Morales, DO Status post partial thyroidectomy ([facility]) 12/22/2024 Refill [facility] [place] [address] [place] [address] Edis Morales, DO Status post partial thyroidectomy ([facility]) 12/15/2024 Orders Only [facility] [address] [place] [address] Felipe Brooke MD 11/17/2024 Refill [facility] [place] [address] [place] [address] Edis Morales, DO Status post partial thyroidectomy ([facility]) from Last 3 Months Immunizations Immunization Administration Dates Next Due Influenza, Recombinant, injectable, preservative free 05/27/2024 Influenza, Unspecified 05/05/2021 Influenza, injectable, quadrivalent, preservativ e free 04/28/2020 Social History Tobacco Use Types Packs/Day Years Used Date Smoking Tobacco: Never Smokeless Tobacco: Never Tobacco Cessation:Counseling Given: Not Answered Alcohol Use Standard Drinks/Week Comments Not Currently 0 (1 standard drink = 0.6 oz pur e alcohol) Comments Unknown Sex and Gender Information Value Date Recorded Sex Assigned at Female 2024 1:41 PM EST Legal Sex Female 10:14 PM EDT Gender Identity Female 2024 1:41 PM EST Sexual Orientation Not on file Last Filed Vital Signs Vital Sign Reading Time Taken Comments Blood Pressure - - Pulse - - Temperature - - Respiratory Rate - - Oxygen Saturation - - Inhaled Oxygen Concentration - - Weight 124 kg (273 lb) 10/26/2024 1:18 PM EST Height 160 cm (5' 3 ) 10/26/2024 1:18 PM EST Body Mass Index 48.36 10/26/2024 1:18 PM EST Plan of Treatment Upcoming Encounters Date Type Department Care Team (Late st Contact Info) Description 02/01/2025 1:30 PM EDT Office Visit [facility] [place] [address] [place] [address] Edsi Morales DO [address] [place] [address] Procedures Procedure Name Priority Date/Time Associated Diagnosis Comments SCANNED LABS Routine 12/15/2024 7:15 AM EDT from Last 3 Months Results * SCANNED LABS (12/15/2024 7:15 AM EDT) us Felipe Brooke MD LAB CHG PERFORMABLES Final Resu lt from Last 3 Months Insurance [employer] Care Teams Lawn Sprinkler Servicer Relationship Specialty Start Date End Date Felipe Brooke MD PCP - General Family Medicine 11/18/23 Willa Hanks DO [id number] [place] [id number] Referring Physician Neurology 11/18/23 Edis Morales, [address] [place] [address] Otolaryngology 09/01/24
--- OUTSIDE RECORDS SUMMARY | 2025-01-30 10:16 | XMS_ITS | Patient Health Record ---
Author Organization [facility] Address [address] [place] [address] Care Team Providers Care Parachute Taper Name Role Phone Felipe Brooke Primary Care Provider Paulino Giordano Unavailable [phone] Yvette Smith Unavailable [phone] Results Component Value Reference Range Notes SCC- ANKLE 3 VIEW RIGHT 7361 0 Reviewed date:10/22/2024 12:37:31 PM Interpretation: Performing Lab: Notes/Report: Reason For Referral Reason APPROVED .......PLEA OBTAIN AUTHORIZATION FOR MRI RIGHT KNEE Diagnosis 1 Acute pain of right knee (M25.561) Referral Organization [facility] Referring Provider First Name Paulino Referring Provider Last Name Audra Referring Provider Speciality Orthopedic Surgery Referred Organization [facility] romeo Referred Address [place], [place], Procedure 1 MRI Joint Lower Ext w/o Dye ([id number]) General Notes Elle Olsen 025 01:15:16 PM >APPROVED [facility] Authorization #[id number] Tracking #[id number], VALID 12/08/2024-01/22/2025 COPY IN CHART MA NOTIFIED REF FXAED TO Domingo OSMAN Kimberly 12/08/2024 09:24:31 AM >Faxed to Priti Referral Priority Routine Medications Medication SIG (Take, Route, Frequency, Duration) [...] 01/04/2025 Encounters Encounter Location Date Provider Diagnosis [address] [address] 01/04/2025 Paulino Zhu Sprain of medial collateral ligament of right knee, initial encounter S83.411A [address] [place] [address] 06/29/2024 [facility] Acute right ankle pain M25.571 and Closed avulsion fracture of distal end of right fibula, initial encounter S82.831A [address] [place] [address] 08/03/2024 [facility] Other closed fracture of distal end of right fibula, initial encounter S82.831A [facility] [address] [place] [address] 12/07/2024 [facility] Acute pain of right knee M25.561 Assessments Encounter Date Diagnosis (ICD Code) Assessment Notes Treatment Notes Treatment Clinical Notes Section Notes 06/29/2024 Acute right ankle pain (ICD-10 - M25.571) Right distal fibula avulsion fracture Right ankle sprain 06/29/2024 Closed avulsion fracture of distal end of right fibula, initial encounter (ICD-10 - S82.831A) Right distal fibula avulsion fracture Right ankle sprain 08/03/2024 Other closed fracture of distal end of right fibula, initial encounter (ICD-10 - S82.831A) 12/07/2024 Acute pain of right knee (ICD-10 - M25.561) Right knee pain and effusion-pos sible meniscus tear 01/04/2025 Sprain of medial collateral ligament of right knee, initial encounter (ICD-10 - S83.411A) 01/04/2025 Other For right knee MCL strain I recommended symptomatic treatment with crutches. She will follow-up in 4 weeks to reassess her progress and consider therapy at that time. Import medication 06/29/2024 Other For the patient 's persistent right ankle pain I have prescribed crutches for her to use to help with pain-free ambulation. She may weight-bear as tolerated if her ankle starts improving. She is already taking Daypro. We will see her back in 2 weeks to reassess her progress. Right distal fibula avulsion fracture Right ankle sprain 08/03/2024 Other This time we wi ll have the patient start to wean into a supportive shoe as she is pain-free with ambulation with just the walking boot. We will have her return in 4 weeks to repeat x-rays and reassess her progress. 12/07/2024 Other For the patient 's right [...] effusion-pos sible meniscus tear Plan Of Treatment Pending Test Test Name Order Date MRI : Knee W/O Contrast Right - 06161 Next Appt Details Provider Name:Paulino Corea and, 02/01/2025 10:20:00 AM, [address] [place] [address], [address], [place], [address], Insurance Providers Payer Name Payer Address Payer Phone Subscriber Number Group Number Insured Name Patient Relationship to Insured Coverage Start Date Coverage End Date Medical [employer] Dian Hackett [address] [place] [address] [id number] [employer] Spouse - patient is the spouse of the insured 5 Medical (General) History Medical History History ICD Code Depression Tachycardia: Mental Illness: GI Problems: Stomach ulcers sto Surgical History Surgery Date(Month/Year) Tonsillectomy Foot surgery Hand surgery 08/2022
--- OUTSIDE RECORDS SUMMARY | 2025-01-30 10:16 | XMS_ITS | Clinical Summary ---
Author Organization [employer] [facility] tem Address [id number] [address] [place] [address] Care Team Providers Care News Reel Cameraman Name Role Phone Unavailable Primary Care Provider Unavailabl e Social History Tobacco Use Types Packs/Day Years Used Date Smoking Tobacco: Never Assessed Childcare Answer Date Recorded Childcare Unknown 02/04/2019 Employment Answer Date Recorded Employment Unknown 02/04/2019 Comments Unknown Sex and Gender Information Value Date Recorded Sex Assigned at Not on file Legal Sex Female 2:22 PM EDT Gender Identity Not on file Sexual Orientation Not on file Plan of Treatment Not on file Medical Devices Not on file
--- OUTSIDE RECORDS SUMMARY | 2025-01-30 10:16 | XMS_ITS | CCD ---
Author Organization [facility] CliniSydc Care Team Providers Care Operating Manager Name Role Phone Donnell Brooke Primary Care Physician MD Bonnie Jeffrey Attending Provider [phone] MD Donnell Brooke Primary Care Provider [phone] Edwardo PROVIDERDonnell Referring Unavailabl e NILL, Sanjay Gibbons Attending Unavailable NILL, Sanjay Gibbons Attending Unavailable NILL, Sanjay Gibbons Attending Unavailable NILL, Sanjay Gibbons Attending Unavailable Hoy PROVIDERDonnell Referring Unavailabl e NILL, Sanjay Gibbons Attending Unavailable Bonnie Jeffrey Unavailable MD Bonnie Jeffrey Attending Provider MD Donnell Brooke Primary Care Provider [phone] MARTH[address] ., DR JACOBO Primary Care [...] Unavailable Donnell Brooke MD Primary Care Provider [phone] Willa Hanks DO Unavailable Edis Morales DO Unavailable [phone] Donnell Brooke MD Primary Care Provider [phone] Donnell Brooke MD Attending Provider [phone] Edis Morales DO Attending Provider Donnell Brooke [...] [morphine] Drug Allergy 3 Chest pain (finding) [facility] General Surgery [place] (20 sources) SILVER; Translations: [SILVER] Allergy to substance 4 INFECTION, Edema, silver wound pack reversed healing, Edema, silver wound pack reversed healing [facility] Comment on above: reversed healing (11 sources) irbesartan; Translations: [irbesartan] Drug Allergy 3 Unknown Reaction [facility] Comment on above: renal failure (1 source) [facility] SUB[facility]; Translations: [MORPHINE SUBSTITUTE] Propensity to adverse reactions (disorder) [facility] (1 source) Morphine Drug Allergy [facility] Medications Current Medications Medication Drug Class(es) Dates Sig (Normalized) Sig (Original) acebutolol 200 mg oral capsule (20 sources) beta-Adrenergic Ana Start: 09-26-2022 take 1 capsule by mouth in the morning acebutolol (Sectral) 200 MG capsule Take 200 mg by mouth in the morning and 200 mg before bedtime. 08/20/2024 Active Start: 07-27-2022 take 1 capsule by [facility] twice daily acebutolol 200 mg Cap 200 mg = 1 cap(s), Oral, BID, Refills(s) 0 Start Date: 07/27/22 Status: Ordered take 1 capsule by [facility] every twenty-four hours Acebutolol HCl 200 [...] BY MOUTH ONCE DAILY 08/03/2024 Active levonorgestrel 0.345390 mg/hr intrauterine system (3 sources) Progestin, Progestin-containing [...] 1:00am Start: 07-27-2022 take 2 tablets by [facility] at bedtime tiZANidine 4 mg Tab 8 mg = 2 tab(s), Oral, Bedtime, Refills(s) 0 Start Date: 07/27/22 Status: Ordered take 1 capsule by [facility] every eight hours tiZANidine HCl 4 [...] 07-05-2022 Chronic Other aftercare (1 source) Other 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 Performed By: #### U HCG #### [address] 09-14-2024 L Specimen: [id number] Received: 09/14/24 Status: PHILIP Simmons Num: [id number] Spec Type: Surgical Subm Dr: Edis Morales DO Tissues: A THYROID - Lobe (RT LOBE AND ISTHMUS) Procedures: HE/6, Gross/Micro L5 Age/ Patient Sex Location Account Attending Physician Veronica Ross 34/F ID [id number] Edis Morales DO SPEC NUM: [id number] RECD: 09/14/24 STATUS: PHILIP SIMMONS NUM: [id number] TAYLOR: 09/14/24 [facility] DR: Edis Morales DO ENTERED: 09/14/24 [facility] DR: FILIBERTO TYPE: Surgical DEPT: S ENTERED BY: [id number] RECV BY: [id number] ORDERED: HE/6, Gross/Micro L5 ORDERED: HE/6, Gross/Micro [...] S25 Received: 09/14/24 Status: PHILIP Simmons Num: [id number] Spec Type: Surgical Subm Dr: Edis Morales DO Tissues: A THYROID - Lobe (RT LOBE AND ISTHMUS) Procedures: MEENAKSHIBrittany/Jesse L5 Patient: PernellcandeVeronica [id number] (Continued) Specimen: S2 Received: 09/14/24 (Continued) Pathological Diagnosis (Continued) Signed (signature on file) Shawanda Mckeon MD 09/15/24 1526 Specimen: S2 Received: 09/14/24 Status: PHILIP Simmons Num: [id number] Spec Type: Surgical Subm Dr: Edis Morales DO Tissues: A THYROID - Lobe (RT LOBE AND ISTHMUS) Procedures: Brittany/Jesse L5 Patient: Veronica Ross [id number] (Continued) Specimen: [id number] Received: 09/14/244288 (Continued) Pathological Diagnosis (Continued) Extrathyroidal extension: Not [...] S25 Received: 09/14/24 Status: PHILIP Simmons Num: [id number] Spec Type: Surgical Subm Dr: Edis Morales DO Tissues: A THYROID - Lobe (RT LOBE AND ISTHMUS) Procedures: HE/6, Gross/Micro L5 Patient: Veronica Ross Edwige [id number] (Continued) Specimen: S2 Received: 09/14/24 (Continued) Gross Description (Continued) Signed (signature on file) Shawanda Mckeon MD 09/15/24 1526 Specimen: S2 Received: 09/14/24 Status: PHILIP Simmons Num: (more content not included)... Normal [facility] Basic Metabolic Panelon 08-26 Anion gap [Moles/Vol] 12.6 mmol/L Normal 6.0-15.0 [facility] Comment on above: Performed By: #### P TH, BMP, TSH3 #### [facility] [address] [place] [address] [place] Calcium [Mass/Vol] 9.3 mg/dL Normal 8.6-10.3 [facility] Comment on above: Performed By: #### P TH, BMP, TSH3 #### [facility] [address] [place] [address] [place] Chloride [Moles/Vol] 100 mmol/L Normal 98-107 [facility] Comment on above: Performed By: #### P TH, BMP, TSH3 #### [facility] [address] [place] [address] [place] CO2 [Moles/Vol] 30.1 mmol/L Normal 21.0-31.0 [facility] Comment on above: Performed By: #### P TH, BMP, TSH3 #### [facility] [address] [place] [address] [place] Creatinine [Mass/Vol] 1.10 mg/dL Normal 0.60-1.20 [facility] Comment on above: Performed By: #### P TH, BMP, TSH3 #### [facility] [address] [place] [address] [place] GFR/1.73 sq M.predicted MDRD (S/P/Bld) [Vol rate/Area] mL/min/{1.73_m2} Normal [facility] Comment on above: Performed By: #### P TH, BMP, TSH3 #### [facility] [address] [place] [id number] [place] Glucose [Mass/Vol] 81 mg/dL Normal 70-100 [facility] Comment on above: Result Comment: Donnellson Glucose Reference Range is dependent on time and content of last meal. Glucose of more than 200 mg/dL in a nonstressed, ambulatory subject supports the diagnosis of Diabetes Mellitus. ADA recommended reference range Performed By: #### P TH, BMP, TSH3 #### [facility] [address] [place] [id number] [place] Potassium [Moles/Vol] 3.7 mmol/L Normal 3.5-5.1 [facility] Comment on above: Performed By: #### P TH, BMP, TSH3 #### [facility] [address] [place] [id number] [place] Sodium [Moles/Vol] 139 mmol/L Normal 136-145 [facility] Comment on above: Performed By: #### P TH, BMP, TSH3 #### [facility] [address] [place] [address] [place] Urea nitrogen [Mass/Vol] 12 mg/dL Normal 7-25 [facility] Comment on above: Performed By: #### P TH, BMP, TSH3 #### [facility] [address] [place] [id number] [place] Calcium [Mass/volume] in Ser um or PlasmaOrdered By: Edis Morales on 09-07-2024 Calcium [Mass/Vol] Calcium [Mass/volume] in Serum or Plasma 8.6-10.3 [facility] Carbon dioxide, total [Moles /volume] in Serum or PlasmaOrdered By: Edis Morales on 09-07-2024 CO2 [Moles/Vol] Carbon dioxide, total [Moles/volume] in Serum or Plasma 21.0-31.0 [facility] Chloride [Moles/volume] in S fernando or PlasmaOrdered By: Edis Morales on 09-07-2024 Chloride [Moles/Vol] Chloride [Moles/volume] in Serum or Plasma 98-107 [facility] Creatinine [Mass/volume] in Serum or PlasmaOrdered By: Edis Morales on 09-07-2024 Creatinine [Mass/Vol] Creatinine [Mass/volume] in Serum or Plasma 0.60-1.20 [facility] Glucose [Mass/volume] in Ser um or PlasmaOrdered By: Edis Morales on 09-07-2024 Glucose [Mass/Vol] Glucose [Mass/volume] in Serum or Plasma 70-100 [facility] Comment on above: ADA recommended refe rence rangeRandom Glucose Reference Range is dependent on time and content of last meal. Glucose of more than 200 mg/dL in a nonstressed, ambulatory subject supports the diagnosis of Diabetes Mellitus. No Panel InformationOrdered By: Edis Morales on 09-07-2024 Estimated GFR (CKD-EPI) > 60.0 mL/Min [facility] Creatinine Clearance (Chem N/A [facility] Parathyrin.intact [Mass/Vol] on 09-07-2024 PARATHYROID HORMONE INTACT 23 pg/mL pg/mL [facility] Parathyrin.intact [Mass/volu me] in Serum or PlasmaOrdered By: Edis Morales on 09-07-2024 Parathyrin.intact [Mass/Vol] Parathyrin.intact [Mass/volume] in Serum or Plasma [facility] Parathyroid Hormone Intacton 09-07-2024 Parathyroid Hormone Intact 23.0 pg/mL Normal [facility] Comment on above: Result Comment: PERF ORMED BY: [place] [address] PATHOLOGIST [employer] SHAWANDA MCKEON M.D. Performed By: #### P TH, BMP, TSH3 #### [address] Potassium [Moles/volume] in Serum or PlasmaOrdered By: Edis Morales on 09-07-2024 Potassium [Moles/Vol] Potassium [Moles/volume] in Serum or Plasma 3.5-5.1 [facility] Serum or plasma anion gap de terminationOrdered By: Edis Morales on 09-07-2024 Anion gap [Moles/Vol] Serum or plasma anion gap determination 6.0-15.0 [facility] Sodium [Moles/volume] in Ser um or PlasmaOrdered By: Edis Morales on 09-07-2024 Sodium [Moles/Vol] Sodium [Moles/volume] in Serum or Plasma 136-145 [facility] Thyroid Stimulating Hormoneo n 09-07-2024 TSH Qn 3.14 m[IU]/L Normal 0.45-5.33 [facility] Comment on above: Result Comment: PERF ORMED BY: [facility] [address] [place] [address] PATHOLOGIST [employer] SHAWANDA MCKEON M.D. Performed By: #### P TH, BMP, TSH3 #### [facility] [address] Thyrotropin [Units/volume] i n Serum or PlasmaOrdered By: Edis Morales on 09-07-2024 TSH Qn Thyrotropin [Units/volume] in Serum or Plasma 0.45-5.33 [facility] Urea nitrogen [Mass/volume] in Serum or PlasmaOrdered By: Edis Morales on 09-07-2024 Urea nitrogen [Mass/Vol] Urea nitrogen [Mass/volume] in Serum or Plasma 7 [facility] Philip 08-03-2024 L Specimen: [id number] Received: 08/04/24 Status: PHILIP Simmons Num: [id number] Spec Type: Cytology Subm Dr: Donnell Brooke MD Tissues: A FNA SLIDES NOPATH (RT THY NOD) Procedures: Cyto Int and Re, PAPSTN/5 Age/ Patient Sex Location Account Attending Physician Veronica Ross 33/F LABELL [id number] Donnell Brooke MD SPEC NUM: [id number] RECD: 08/04/24 STATUS: PHILIP SIMMONS NUM: [id number] TAYLOR: 08/03/24 DR: Donnell Brooke MD ENTERED: 08/04/[address]: Francesca Marcos SPEC TYPE: Cytology DEPT: OSBALDO NCYT ENTERED BY: [id number] RECV BY: [id number] ORDERED: Cyto Int and Re, PAPSTN/5 ORDERED: Cyto Int and Re, PAPSTN/5 Pathological Diagnosis Right thyroid nodule,?fine needle aspiration:? Suspicious for follicular neoplasm. 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 ThinPrep preparations are prepared for microscopic examination. Also received are 4 spray fixed smeared slides for pap and a Veracyte vial stored at -20 for microscopic examination. (/ut) CPT Codes 01013 Specimen: [id number] Received: 08/04/24-1147 Status: PHILIP Simmons Num: [id number] Spec Type: Cytology Subm Dr: Donnell Brooke MD Tissues: A FNA SLIDES NOPATH (RT THY NOD) Procedures: Cyto Int and Re, PAPSTN/5 Patient: Veronica Ross [id number] (Continued) Signed (signature on file) Shawanda Mckeon MD 08/05/24 1754 Normal [facility] XR hand RT min 3V*on 023 XR hand RT min 3V* [facility] Other XR hand RT min 3V* [facility] [employer] Other XR hand RT min 3V* [address] [facility] [employer] Other XR hand RT min 3V* [place] [address] [place] [employer] Other XR hand RT min 3V* XRay Report [employer] Other XR hand RT min 3V* Signed [employer] Other XR hand RT min 3V* Patient: Veronica Ross MR#: [id number] [employer] Other XR hand RT min 3V* 7067 [employer] Other XR hand RT min 3V* : 1990 Acct:[id number] [employer] Other XR hand RT min 3V* Age/Sex: 32 / F ADM Date: 11/13/22 [employer] Other XR hand RT min 3V* Loc: [facility] Room: Type: [facility] [employer] Other XR hand RT min 3V* Attending Dr: Bonnie Jeffrey MD [employer] Other XR hand RT min 3V* Copies to: Bonnie Jeffrey MD [employer] Other XR hand RT min 3V* Ordering Provider: Bonnie Jeffrey MD [employer] Other XR hand RT min 3V* Date of Service: 11/13/22 [employer] Other XR hand RT min 3V* XR/XR hand RT min 3V*: Crushing injury of right thumb, subsequent [employer] Other XR hand RT min 3V* encounter [employer] Other XR hand RT min 3V* XR hand RT min 3V* 11/13/2022 3:49 PM [employer] Other XR hand RT min 3V* SIGNS AND SYMPTOMS: Status post incision and debridement of open fracture of right thumb, follow-up [employer] Other XR hand RT min 3V* PROTOCOL: Frontal, lateral, and oblique radiographs of the right hand [employer] Other XR hand RT min 3V* COMPARISON: 09/25/2022 [employer] Other XR hand RT min 3V* FINDINGS: [employer] Other XR hand RT min 3V* Healing/healed fracture of the distal phalanx of the right thumb. There is no change in alignment. [employer] Other XR hand RT min 3V* The joint spaces are preserved. No significant soft tissue swelling. [employer] Other XR hand RT min 3V* XR/XR hand RT min 3V* [employer] Other XR hand RT min 3V* IMPRESSION: [employer] Other XR hand RT min 3V* Impression dictated by: Kalpesh Murry M.D.11/13/2022 5:23 PM [facility] [employer] Other XR hand RT min 3V* Dictation Location: [place] [address] [employer] Other XR hand RT min 3V* Transcribed By: SHAY 11/13/22 [facility] [employer] Other XR hand RT min 3V* Dictated By: Kalpesh Murry II, MD 11/13/22 [facility] [employer] Other XR hand RT min 3V* Signed By: [employer] Other XR hand RT min 3V* 11/13/22 [facility] [employer] Other PROF CHEM 8 (BAS METB)on Anion gap [Moles/Vol] 11.0 mmol/L Normal [facility] Comment on above: Performed By: #### B MP #### [facility] [address] [place] [address] [address] Shemar Armas Calcium [Mass/Vol] 8.8 mg/dL Normal 8.5-10.[address] [facility] Comment on above: Performed By: #### B MP #### [facility] [address] [place] [address] [address] Shemar Armas Chloride [Moles/Vol] 100 mmol/L Normal 98-107 [facility] Comment on above: Performed By: #### B MP #### [facility] [address] [place] [address] [address] Shemar Armas CO2 [Moles/Vol] 31.5 mmol/L Normal 21.0-32.0 [facility] Comment on above: Performed By: #### B MP #### [facility] [address] [place] [address] [address] Shemar Armas Creatinine [Mass/Vol] 1.18 mg/dL Critically high 0.55-1.02 [facility] Comment on above: Performed By: #### B MP #### [facility] [address] [place] [address] [address] Shemar Armas EGFR-AF POLISH >60 Normal >=60 [facility] Comment on above: Performed By: #### B MP #### [facility] [address] [place] [address] [address] Shemar Armas EGFR-NON AF POLISH 53 mL/min/1.73m2 Critically low >=60 [facility] Comment on above: Performed By: #### B MP #### [facility] [address] [place] [address] [address] Shemar Armas Glucose [Mass/Vol] 89 mg/dL Normal 74-[address] [facility] Comment on above: Performed By: #### B MP #### [facility] [address] [place] [address] [address] Shemar Armas Potassium [Moles/Vol] 3.5 mmol/L Normal 3.5-5.1 [facility] Comment on above: Performed By: #### B MP #### [facility] [address] [place] [address] [address] Shemar Armas Sodium [Moles/Vol] 139 mmol/L Normal 136-[address] [facility] Comment on above: Performed By: #### B MP #### [facility] [address] [place] [address] [address] Shemar Armas Urea nitrogen [Mass/Vol] 11.0 mg/dL Normal 7.0-18.0 [facility] Comment on above: Performed By: #### B MP #### [facility] [address] [place] [address] [address] Shemar Armas Urea nitrogen/Creatinine [Mass ratio] 9.3 mg/mg Normal [facility] Comment on above: Performed By: #### B MP #### [facility] [address] [place] [address] [address] Shemar Armas HCG ( test) IA.rapi d Ql (U)Ordered By: THOM DUONG on 09-28-2022 HCG ( test) Ql (U) Negative [facility] Albumin [Mass/volume] in Ser um or PlasmaOrdered By: Bonnie Jeffrey on 09-26-2022 Albumin [Mass/Vol] 4.0 g/dL 3.2-5.5 [facility] Basophils Auto (Bld) [#/Vol] Ordered By: Bonnie Jeffrey on 09-26-2022 Basophils (Bld) [#/Vol] 0.1 10*3/uL 0.0-0.2 [facility] Basophils/100 WBC Auto (Bld) Ordered By: Bonnie Jeffrey on 09-26-2022 Basophils/100 WBC (Bld) 1.2 % . [facility] Creatinine and Glomerular fi ltration rate.predicted panel (S/P/Bld)Ordered By: Bonnie Jeffrey on 09-26-2022 Creatinine [Mass/Vol] 1.82 mg/dL 0.44-1.03 [facility] Eosinophils Auto (Bld) [#/Vo l]Ordered [...] 09-26-2022 Globulin (S) [Mass/Vol] 2.8 g/dL [facility] Hematocrit Auto (Bld) [Volum e fraction]Ordered [...] MCHC (RBC) [Mass/Vol] 33.0 g/dL 32.0-35.0 [facility] MCV Auto (RBC) [Entitic vol] Ordered By: Bonnie Jeffrey on 09-26-2022 MCV (RBC) [Entitic vol] 87.1 fL 80-100 [facility] Monocytes Auto (Bld) [#/Vol] Ordered By: Bonnie Jeffrey on 09-26-2022 Monocytes (Bld) [#/Vol] 0.5 10*3/uL 0.0-0.8 [facility] Monocytes/100 WBC Auto (Bld) Ordered By: Bonnie Jeffrey on 09-26-2022 Monocytes/100 WBC (Bld) 5.8 % . [facility] Neutrophils Auto (Bld) [#/Vo l]Ordered By: [...] Protein [Mass/Vol] 6.8 g/dL 6.1-7.9 [facility] RBC Auto (Bld) [#/Vol]Ordere d By: Bonnie Jeffrey on 09-26-2022 RBC (Bld) [#/Vol] 4.62 10*6/uL 3.60-5.00 [facility] Serum or plasma alanine kamara otransferase measurement without P-5'-P (enzymatic activiOrdered By: Bonnie Jeffrey on 09-26-2022 ALT No additional P-5'-P [Catalytic activity/Vol] 19 U/L 10-60 [facility] Serum or plasma albumin/glob ulin mass [...] 09-26-2022 Anion gap [Moles/Vol] 13.8 mmol/L 6.0-15.0 [facility] Serum or plasma aspartate am inotransferase measurement (enzymatic activity/volume)Ordered By: Bonnie Jeffrey on 09-26-2022 AST [Catalytic activity/Vol] 17 U/L 10-42 [facility] Serum or plasma calcium sagrario urement (mass/volume)Ordered By: Bonnie Jeffrey on 09-26-2022 Calcium [Mass/Vol] 8.9 mg/dL 8.2-10.2 [facility] Serum or plasma chloride julieta surement (moles/volume)Ordered By: Bonnie Jeffrey on 09-26-2022 Chloride [Moles/Vol] 100 mmol/L 95-114 [facility] Serum or plasma glucose sagrario urement (mass/volume)Ordered By: Bonnie Jeffrey on 09-26-2022 Glucose [Mass/Vol] 86 mg/dL 70-100 [facility] Comment on above: ADA recommended refe rence rangeRandom Glucose Reference Range is dependent on time and content of last meal. Glucose of more than 200 mg/dL in a nonstressed, ambulatory subject supports the diagnosis of Diabetes Mellitus. Serum or plasma potassium me asurement (moles/volume)Ordered By: Bonnie Jeffrey on 09-26-2022 Potassium [Moles/Vol] 3.5 mmol/L 3.5-5.1 [facility] Serum or plasma sodium measu rement (moles/volume)Ordered By: Bonnie Jeffrey on 09-26-2022 Sodium [Moles/Vol] 134 mmol/L 136-146 [facility] Serum or plasma total biliru bin measurement (mass/volume)Ordered By: Bonnie Jeffrey on 09-26-2022 Bilirubin [Mass/Vol] 0.5 mg/dL 0.3-1.2 [facility] Serum or plasma total carbon dioxide measurement (moles/volume)Ordered By: Bonnie Jeffrey on 09-26-2022 CO2 [Moles/Vol] 23.7 mmol/L 22.0-30.0 [facility] Serum or plasma urea nitroge n measurement (mass/volume)Ordered By: Bonnie Jeffrey on 09-26-2022 Urea nitrogen [Mass/Vol] 25 mg/dL 9-23 [facility] WBC Auto (Bld) [#/Vol]Ordere d By: Bonnie Jeffrey on 09-26-2022 WBC (Bld) [#/Vol] 9.4 10*3/uL 3.8-11.6 [facility] Operative Reporton 3 Operative Report [id number] #1.00CD:127 Normal [facility] Pathology Noteon 09-14-2022 Pathology Note [id number]#1.00CD:127 Normal [facility] PREG HCG QUALon 09-12-2022 , QUAL Negative Normal NEGATIVE [facility] Comment on above: Performed By: #### P REG #### [facility] [address] [place] [address] Dr. Shemar Armas Lab Reportson 09-10-2022 Lab Reports [id number] #1.00CD:127 Normal [facility] Covid-19 PCR (CVDTB)on 08-26 SARS-CoV-2 (COVID-19) RNA PADMINI+probe Ql (Unsp spec) Not detected Normal NOT DETECTED [facility] Comment on above: Result Comment: This test is not yet approved or cleared by the [place] FDA. When there are no FDA-approved or cleared tests available, and other criteria are met, FDA can make tests available under an emergency access mechanism called an Emergency Use Authorization (EUA). The EUA for this test is supported by the [place] of Health and Human Service's (HHS's) declaration [...] consistent with SARS-CoV-2. Performed By: #### [facility] #### [facility] [address] [place] [address] [address] Shemar Armas ED Note-Physicianon 08-01-20 ED Note-Physician [id number] #1.00CD:127 Normal [facility] Consent for Procedure/Surger yon 07-31-2022 Consent for Procedure/Surgery [id number] #1.00CD:127 Normal [facility] Physician Referralon 022 Physician Referral [id number] #1.00CD:127 Normal [facility] US SINGLE QUAD RT UPPERon US [...] by: THOM ANGELA Date: 2022-07-09 17:10 Normal [facility] US KIDNEYS BLADDERon 022 US KIDNEYS [...] by: THOM ANGELA Date: 2022-07-04 14:26 Normal [facility] CBC AUTO DIFFon 07-02-2022 BASO # 0.1 103/ul Normal 0.0-0.1 [facility] Comment on above: Performed By: #### C BC #### [facility] [address] [place] [address] Dr. Shemar Armas Basophils/100 WBC (Bld) 0.6 % Normal 0.2-2.0 [facility] Comment on above: Performed By: #### C BC #### [facility] [address] [place] [address] Dr. Shemar Armas EO # 0.1 103/ul Normal 0.0-0.7 [facility] Comment on above: Performed By: #### C BC #### [facility] [address] [place] [address] Dr. Shemar Armas Eosinophils/100 WBC (Bld) 0.8 % Critically low 0.9-7.0 [facility] Comment on above: Performed By: #### C BC #### [facility] [address] [place] [address] Dr. Shemar Armas Erythrocyte distribution width (RBC) [Ratio] 14.6 % Normal 11.0-15.0 [facility] Comment on above: Performed By: #### C BC #### [facility] [address] [place] [address] Dr. Shemar Armas Hematocrit (Bld) [Volume fraction] 36.4 % Normal 36.0-48.0 [facility] Comment on above: Performed By: #### C BC #### [facility] [address] [place] [address] Dr. Shemar Armas Hemoglobin (Bld) [Mass/Vol] 12.2 g/dL Normal 12.0-16.0 [facility] Comment on above: Performed By: #### C BC #### [facility] [address] [place] [address] Dr. Shemar Armas IG # 0.04 10e3/ul Critically high 0.00-0.03 [facility] Comment on above: Performed By: #### C BC #### [facility] [address] [place] [address] Dr. Shemar Armas IG % 0.3 % Normal 0.0-0.5 [facility] Comment on above: Performed By: #### C BC #### [facility] [address] [place] [address] Dr. Shemar Armas LYMPH # 2.1 103/ul Normal 1.2-3.8 [facility] Comment on above: Performed By: #### C BC #### [facility] [address] [place] [address] Dr. Shemar Armas Lymphocytes/100 WBC (Bld) 18.7 % Critically low 20.5-60.0 [facility] Comment on above: Performed By: #### C BC #### [facility] [address] [place] [address] Dr. Shemar Armas MANUAL DIFF REQ NO Normal [facility] Comment on above: Performed By: #### C BC #### [facility] [address] [place] [address] Dr. Shemar Armas MCH (RBC) [Entitic mass] 29.6 pg Normal 26.7-34.0 [facility] Comment on above: Performed By: #### C BC #### [facility] [address] [place] [address] Dr. Shemar Armas MCHC (RBC) [Mass/Vol] 33.5 g/dL Normal 29.9-35.2 [facility] Comment on above: Performed By: #### C BC #### [facility] [address] [place] [address] Dr. Shemar Armas MCV (RBC) [Entitic vol] 88.3 fL Normal 81.0-99.0 [facility] Comment on above: Performed By: #### C BC #### [facility] [address] [place] [address] Dr. Shemar Armas MONO # 0.7 103/ul Normal 0.3-0.8 [facility] Comment on above: Performed By: #### C BC #### [facility] [address] [place] [address] Dr. Shemar Armas Monocytes/100 WBC (Bld) 6.2 % Normal 1.7-12.0 [facility] Comment on above: Performed By: #### C BC #### [facility] [address] [place] [address] Dr. Shemar Armas NEUT # 8.4 103/ul Critically high 1.4-6.5 [facility] Comment on above: Performed By: #### C BC #### [facility] [address] [place] [address] Dr. Shemar Armas Neutrophils/100 WBC (Bld) 73.4 % Normal 43.0-75.0 [facility] Comment on above: Performed By: #### C BC #### [facility] [address] [place] [address] Dr. Shemar Armas Platelet mean volume (Bld) [Entitic vol] 9.2 fL Critically low 9.5-13.5 [facility] Comment on above: Performed By: #### C BC #### [facility] [address] [place] [address] Dr. Shemar Armas PLT 331 103/ul Normal 150-450 [facility] Comment on above: Performed By: #### C BC #### [facility] [address] [place] [address] Dr. Shemar Armas RBC 4.12 106/ul Critically low 4.20-5.40 [facility] Comment on above: Performed By: #### C BC #### [facility] [address] [place] [address] Dr. Shemar Armas WBC 11.4 103/ul Critically high 4.0-11.0 [facility] Comment on above: Performed By: #### C BC #### [facility] [address] [place] [address] Dr. Shemar Armas PROF CHEM 8 (BAS METB)on Anion gap [Moles/Vol] 11.5 mmol/L Normal [facility] Comment on above: Performed By: #### B MP #### [facility] [address] [place] [address] Dr. Shemar Armas Calcium [Mass/Vol] 8.9 mg/dL Normal 8.5-10.1 [facility] Comment on above: Performed By: #### B MP #### [facility] [address] [place] [address] Dr. Shemar Armas Chloride [Moles/Vol] 102 mmol/L Normal 98-107 [facility] Comment on above: Performed By: #### B MP #### [facility] [address] [place] [address] Dr. Shemar Armas CO2 [Moles/Vol] 29.6 mmol/L Normal 21.0-32.0 [facility] Comment on above: Performed By: #### B MP #### [facility] [address] [address] [address] Shemar Armas Creatinine [Mass/Vol] 1.93 mg/dL Critically high 0.55-1.02 [facility] Comment on above: Performed By: #### B MP #### [facility] [address] [address] [address] Shemar Armas EGFR-AF POLISH 37 mL/min/1.73m2 Critically low >=60 [facility] Comment on above: Performed By: #### B MP #### [facility] [address] [address] [address] Shemar Armas EGFR-NON AF POLISH 30 mL/min/1.73m2 Critically low >=60 [facility] Comment on above: Performed By: #### B MP #### [facility] [address] [address] [address] Shemar Armas Glucose [Mass/Vol] 93 mg/dL Normal 74-106 [facility] Comment on above: Performed By: #### B MP #### [facility] [address] [address] [address] Shemar Armas Potassium [Moles/Vol] 4.1 mmol/L Normal 3.5-5.1 [facility] Comment on above: Performed By: #### B MP #### [facility] [address] [address] [address] Shemar Armas Sodium [Moles/Vol] 139 mmol/L Normal 136-145 [facility] Comment on above: Performed By: #### B MP #### [facility] [address] [address] [address] Shemar Armas Urea nitrogen [Mass/Vol] 22.0 mg/dL Critically high 7.0-18.0 [facility] Comment on above: Performed By: #### B MP #### [facility] [address] [address] [address] Shemar Armas Urea nitrogen/Creatinine [Mass ratio] 11.4 mg/mg Normal [facility] Comment on above: Performed By: #### B MP #### [facility] [address] [place] [address] Dr. Shemar Armas BNPon 06-29-2022 Natriuretic peptide B (Bld) [Mass/Vol] 159.0 pg/mL Normal <=450.0 [facility] Comment on above: Performed By: #### B MP #### [facility] [address] [place] [address] Dr. Shemar Armas CBC AUTO DIFFon 06-29-2022 BASO # 0.1 103/ul Normal 0.0-0.1 [facility] Comment on above: Performed By: #### P REG #### [facility] [address] [place] [address] Dr. Shemar Armas Basophils/100 WBC (Bld) 0.7 % Normal 0.2-2.0 [facility] Comment on above: Performed By: #### P REG #### [facility] [address] [place] [address] Dr. Shemar Armas EO # 0.1 103/ul Normal 0.0-0.7 [facility] Comment on above: Performed By: #### P REG #### [facility] [address] [place] [address] Dr. Shemar Armas Eosinophils/100 WBC (Bld) 1.4 % Normal 0.9-7.0 [facility] Comment on above: Performed By: #### P REG #### [facility] [address] [place] [address] Dr. Shemar Armas Erythrocyte distribution width (RBC) [Ratio] 14.5 % Normal 11.0-15.0 [facility] Comment on above: Performed By: #### P REG #### [facility] [address] [place] [address] Dr. Shemar Armas Hematocrit (Bld) [Volume fraction] 35.4 % Critically low 36.0-48.0 [facility] Comment on above: Performed By: #### P REG #### [facility] [address] [address] [address] Shemar Armas Hemoglobin (Bld) [Mass/Vol] 11.9 g/dL Critically low 12.0-16.0 [facility] Comment on above: Performed By: #### P REG #### [facility] [address] [address] [address] Shemar Armas IG # 0.05 10e3/ul Critically high 0.00-0.03 [facility] Comment on above: Performed By: #### P REG #### [facility] [address] [address] [address] Shemar Armas IG % 0.5 % Normal 0.0-0.5 [facility] Comment on above: Performed By: #### P REG #### [facility] [address] [place] [address] Dr. Shemar Armas LYMPH # 1.7 103/ul Normal 1.2-3.8 [facility] Comment on above: Performed By: #### P REG #### [facility] [address] [place] [address] Dr. Shemar Armas Lymphocytes/100 WBC (Bld) 17.3 % Critically low 20.5-60.0 [facility] Comment on above: Performed By: #### P REG #### [facility] [address] [place] [address] Dr. Shemar Armas MANUAL DIFF REQ NO Normal [facility] Comment on above: Performed By: #### P REG #### [facility] [address] [address] [address] Shemar Armas MCH (RBC) [Entitic mass] 29.5 pg Normal 26.7-34.0 [facility] Comment on above: Performed By: #### P REG #### [facility] [address] [place] [address] Dr. Shemar Armas MCHC (RBC) [Mass/Vol] 33.6 g/dL Normal 29.9-35.2 [facility] Comment on above: Performed By: #### P REG #### [facility] [address] [address] [address] Shemar Armas MCV (RBC) [Entitic vol] 87.8 fL Normal 81.0-99.0 [facility] Comment on above: Performed By: #### P REG #### [facility] [address] [place] [address] Dr. Shemar Armas MONO # 0.6 103/ul Normal 0.3-0.8 [facility] Comment on above: Performed By: #### P REG #### [facility] [address] [address] [address] Shemar Armas Monocytes/100 WBC (Bld) 6.3 % Normal 1.7-12.0 [facility] Comment on above: Performed By: #### P REG #### [facility] [address] [place] [address] Dr. Shemar Armas NEUT # 7.1 103/ul Critically high 1.4-6.5 [facility] Comment on above: Performed By: #### P REG #### [facility] [address] [place] [address] Dr. Shemar Armas Neutrophils/100 WBC (Bld) 73.8 % Normal 43.0-75.0 [facility] Comment on above: Performed By: #### P REG #### [facility] [address] [place] [address] Dr. Shemar Armas Platelet mean volume (Bld) [Entitic vol] 9.4 fL Critically low 9.5-13.5 [facility] Comment on above: Performed By: #### P REG #### [facility] [address] [place] [address] Dr. Shemar Armas PLT 350 103/ul Normal 150-450 [facility] Comment on above: Performed By: #### P REG #### [facility] [address] [place] [address] Dr. Shemar Armas RBC 4.03 106/ul Critically low 4.20-5.40 [facility] Comment on above: Performed By: #### P REG #### [facility] [address] [place] [address] Dr. Shemar Armas WBC 9.6 103/ul Normal 4.0-11.0 [facility] Comment on above: Performed By: #### P REG #### [facility] [address] [place] [address] Dr. Shemar Armas BASO # 0.0 103/ul Normal 0.0-0.1 [facility] Comment on above: Performed By: #### C BC #### [facility] [address] [place] [address] Dr. Shemar Armas Basophils/100 WBC (Bld) 0.6 % Normal 0.2-2.0 [facility] Comment on above: Performed By: #### C BC #### [facility] [address] [place] [address] Dr. Shemar Armas EO # 0.1 103/ul Normal 0.0-0.7 [facility] Comment on above: Performed By: #### C BC #### [facility] [address] [place] [address] Dr. Shemar Armas Eosinophils/100 WBC (Bld) 1.2 % Normal 0.9-7.0 [facility] Comment on above: Performed By: #### C BC #### [facility] [address] [place] [address] Dr. Shemar Armas Erythrocyte distribution width (RBC) [Ratio] 14.4 % Normal 11.0-15.0 [facility] Comment on above: Performed By: #### C BC #### [facility] [address] [place] [address] Dr. Shemar Armas Hematocrit (Bld) [Volume fraction] 29.3 % Critically low 36.0-48.0 [facility] Comment on above: Performed By: #### C BC #### [facility] [address] [place] [address] Dr. Shemar Armas Hemoglobin (Bld) [Mass/Vol] 9.9 g/dL Critically low 12.0-16.0 [facility] Comment on above: Performed By: #### C BC #### [facility] [address] [place] [address] Dr. Shemar Armas IG # 0.04 10e3/ul Critically high 0.00-0.03 [facility] Comment on above: Performed By: #### C BC #### [facility] [address] [place] [address] Dr. Shemar Armas IG % 0.6 % Critically high 0.0-0.5 [facility] Comment on above: Performed By: #### C BC #### [facility] [address] [place] [address] Dr. Shemar Armas LYMPH # 1.5 103/ul Normal 1.2-3.8 [facility] Comment on above: Performed By: #### C BC #### [facility] [address] [place] [address] Dr. Shemar Armas Lymphocytes/100 WBC (Bld) 20.1 % Critically low 20.5-60.0 [facility] Comment on above: Performed By: #### C BC #### [facility] [address] [place] [address] Dr. Shemar Armas MANUAL DIFF REQ NO Normal [facility] Comment on above: Performed By: #### C BC #### [facility] [address] [place] [address] Dr. Shemar Armas MCH (RBC) [Entitic mass] 29.9 pg Normal 26.7-34.0 [facility] Comment on above: Performed By: #### C BC #### [facility] [address] [place] [address] Dr. Shemar Armas MCHC (RBC) [Mass/Vol] 33.8 g/dL Normal 29.9-35.2 [facility] Comment on above: Performed By: #### C BC #### [facility] [address] [place] [address] Dr. Shemar Armas MCV (RBC) [Entitic vol] 88.5 fL Normal 81.0-99.0 [facility] Comment on above: Performed By: #### C BC #### [facility] [address] [place] [address] Dr. Shemar Armas MONO # 0.5 103/ul Normal 0.3-0.8 [facility] Comment on above: Performed By: #### C BC #### [facility] [address] [place] [address] Dr. Shemar Armas Monocytes/100 WBC (Bld) 7.5 % Normal 1.7-12.0 [facility] Comment on above: Performed By: #### C BC #### [facility] [address] [place] [address] Dr. Shemar Armas NEUT # 5.1 103/ul Normal 1.4-6.5 [facility] Comment on above: Performed By: #### C BC #### [facility] [address] [place] [address] Dr. Shemar Armas Neutrophils/100 WBC (Bld) 70.0 % Normal 43.0-75.0 [facility] Comment on above: Performed By: #### C BC #### [facility] [address] [place] [address] Dr. Shemar Armas Platelet mean volume (Bld) [Entitic vol] 9.2 fL Critically low 9.5-13.5 [facility] Comment on above: Performed By: #### C BC #### [facility] [address] [place] [address] Dr. Shemar Armas PLT 225 103/ul Normal 150-450 [facility] Comment on above: Performed By: #### C BC #### [facility] [address] [place] [address] Dr. Shemar Armas RBC 3.31 106/ul Critically low 4.20-5.40 [facility] Comment on above: Performed By: #### C BC #### [facility] [address] [place] [address] Dr. Shemar Armas WBC 7.2 103/ul Normal 4.0-11.0 [facility] Comment on above: Performed By: #### C BC #### [facility] [address] [place] [address] Dr. Shemar Armas IRONon 06-29-2022 Iron [Mass/Vol] 110.0 ug/dL Normal 50.0-170.0 [facility] Comment on above: Performed By: #### P REG #### [facility] [address] [place] [address] Dr. Shemar Armas PROF 14(COMP METB)on 022 Albumin [Mass/Vol] 4.0 g/dL Normal 3.4-5.0 [facility] Comment on above: Performed By: #### P REG #### [facility] [address] [place] [address] Dr. Shemar Armas Albumin/Globulin [Mass ratio] 1.1 {ratio} Normal [facility] Comment on above: Performed By: #### P REG #### [facility] [address] [place] [address] Dr. Shemar Armas ALP [Catalytic activity/Vol] 57 U/L Normal 46-116 [facility] Comment on above: Performed By: #### P REG #### [facility] [address] [place] [address] Dr. Shemar Armas ALT [Catalytic activity/Vol] 26 U/L Normal 14-59 [facility] Comment on above: Performed By: #### P REG #### [facility] [address] [place] [address] Dr. Shemar Armas Anion gap [Moles/Vol] 10.0 mmol/L Normal [facility] Comment on above: Performed By: #### P REG #### [facility] [address] [place] [address] Dr. Shemar Armas AST [Catalytic activity/Vol] 15 U/L Normal 15-37 [facility] Comment on above: Performed By: #### P REG #### [facility] [address] [place] [address] Dr. Shemar Armas Bilirubin [Mass/Vol] 0.2 mg/dL Normal 0.2-1.0 [facility] Comment on above: Performed By: #### P REG #### [facility] [address] [place] [address] Dr. Shemar Armas Calcium [Mass/Vol] 8.8 mg/dL Normal 8.5-10.1 [facility] Comment on above: Performed By: #### P REG #### [facility] [address] [address] [address] Shemar Armas Chloride [Moles/Vol] 105 mmol/L Normal 98-107 [facility] Comment on above: Performed By: #### P REG #### [facility] [address] [address] [address] Shemar Armas CO2 [Moles/Vol] 26.8 mmol/L Normal 21.0-32.0 [facility] Comment on above: Performed By: #### P REG #### [facility] [address] [address] [address] Shemar Armas Creatinine [Mass/Vol] 1.60 mg/dL Critically high 0.55-1.02 [facility] Comment on above: Performed By: #### P REG #### [facility] [address] [address] [address] Shemar Armas EGFR-AF POLISH 46 mL/min/1.73m2 Critically low >=60 [facility] Comment on above: Performed By: #### P REG #### [facility] [address] [address] [address] Shemar Armas EGFR-NON AF POLISH 38 mL/min/1.73m2 Critically low >=60 [facility] Comment on above: Performed By: #### P REG #### [facility] [address] [address] [address] Shemar Armas Globulin (S) [Mass/Vol] 3.5 g/dL Normal [facility] Comment on above: Performed By: #### P REG #### [facility] [address] [address] [address] Shemar Armas Glucose [Mass/Vol] 98 mg/dL Normal 74-106 [facility] Comment on above: Performed By: #### P REG #### [facility] [address] [address] [address] Shemar Armas Potassium [Moles/Vol] 3.8 mmol/L Normal 3.5-5.1 [facility] Comment on above: Performed By: #### P REG #### [facility] [address] [address] [address] Shemar Armas Protein [Mass/Vol] 7.5 g/dL Normal 6.4-8.2 [facility] Comment on above: Performed By: #### P REG #### [facility] [address] [address] [address] Shemar Armas Sodium [Moles/Vol] 138 mmol/L Normal 136-[address] [facility] Comment on above: Performed By: #### P REG #### [facility] [address] [address] [address] Shemar Armas Urea nitrogen [Mass/Vol] 24.0 mg/dL Critically high 7.0-18.0 [facility] Comment on above: Performed By: #### P REG #### [facility] [address] [place] [address] Dr. Shemar Armas Urea nitrogen/Creatinine [Mass ratio] 15.0 mg/mg Normal [facility] Comment on above: Performed By: #### P REG #### [facility] [address] [address] [address] Shemar Armas Albumin [Mass/Vol] 3.3 g/dL Critically low 3.4-5.0 [facility] Comment on above: Performed By: #### B MP #### [facility] [address] [address] [address] Shemar Armas Albumin/Globulin [Mass ratio] 1.1 {ratio} Normal [facility] Comment on above: Performed By: #### B MP #### [facility] [address] [address] [address] Shemar Armas ALP [Catalytic activity/Vol] 55 U/L Normal 46-116 [facility] Comment on above: Performed By: #### B MP #### [facility] [address] [address] [address] Shemar Armas ALT [Catalytic activity/Vol] 21 U/L Normal 14-59 [facility] Comment on above: Performed By: #### B MP #### [facility] [address] [address] [address] Shemar Armas Anion gap [Moles/Vol] 8.1 mmol/L Normal [facility] Comment on above: Performed By: #### B MP #### [facility] [address] [address] [address] Shemar Armas AST [Catalytic activity/Vol] 13 U/L Critically low 15-37 [facility] Comment on above: Performed By: #### B MP #### [facility] [address] [address] [address] Shemar Armas Bilirubin [Mass/Vol] 0.1 mg/dL Critically low 0.2-1.0 [facility] Comment on above: Performed By: #### B MP #### [facility] [address] [address] [address] Shemar Armas Calcium [Mass/Vol] 7.5 mg/dL Critically low 8.5-10.1 [facility] Comment on above: Performed By: #### B MP #### [facility] [address] [address] [address] Shemar Armas Chloride [Moles/Vol] 107 mmol/L Normal 98-107 [facility] Comment on above: Performed By: #### B MP #### [facility] [address] [address] [address] Shemar Armas CO2 [Moles/Vol] 24.5 mmol/L Normal 21.0-32.0 [facility] Comment on above: Performed By: #### B MP #### [facility] [address] [address] [address] Shemar Armas Creatinine [Mass/Vol] 2.03 mg/dL Critically high 0.55-1.02 [facility] Comment on above: Performed By: #### B MP #### [facility] [address] [address] [address] Shemar Armas EGFR-AF POLISH 35 mL/min/1.73m2 Critically low >=60 [facility] Comment on above: Performed By: #### B MP #### [facility] [address] [address] [address] Shemar Armas EGFR-NON AF POLISH 29 mL/min/1.73m2 Critically low >=60 [facility] Comment on above: Performed By: #### B MP #### [facility] [address] [address] [address] Shemar Armas Globulin (S) [Mass/Vol] 2.9 g/dL Normal [facility] Comment on above: Performed By: #### B MP #### [facility] [address] [address] [address] Shemar Armas Glucose [Mass/Vol] 111 mg/dL Critically high 74-106 [facility] Comment on above: Performed By: #### B MP #### [facility] [address] [address] [address] Shemar Armas Potassium [Moles/Vol] 3.6 mmol/L Normal 3.5-5.1 [facility] Comment on above: Performed By: #### B MP #### [facility] [address] [place] [address] Dr. Shemar Armas Protein [Mass/Vol] 6.2 g/dL Critically low 6.4-8.2 [facility] Comment on above: Performed By: #### B MP #### [facility] [address] [place] [address] Dr. Shemar Armas Sodium [Moles/Vol] 136 mmol/L Normal 136-145 [facility] Comment on above: Performed By: #### B MP #### [facility] [address] [address] [address] Shemar Armas Urea nitrogen [Mass/Vol] 28.0 mg/dL Critically high 7.0-18.0 [facility] Comment on above: Performed By: #### B MP #### [facility] [address] [place], [place] [address] Dr. Shemar Armas Urea nitrogen/Creatinine [Mass ratio] 13.8 mg/mg Normal [facility] Comment on above: Performed By: #### B MP #### [facility] [address] [place] [address] Dr. Shemar Armas TROPONIN, HIGH SENSITIVITYon 06-29-2022 HSTROP 4.8 pg/mL Normal 4.0-51.3 [facility] Comment on above: Result Comment: CUT- OFF POINTS HAVE BEEN ESTABLISHED BASED ON THE FOURTH UNIVERSAL DEFINITIONS OF MYOCARDIAL INFARCTION. THE UPPER REFERENCE LIMIT (URL) OF TROPONIN, DEFINED THE 99TH PERCENTILE OF cTnI DISTRIBUTION IN A REFERENCE POPULATION, HAS BEEN CONFIRMED THE DECISION THRESHOLD FOR HI DIAGNOSIS. Performed By: #### B MP #### [facility] [address] [place] [address] Dr. Shemar Armas INSULINon 04-27-2022 Insulin 15.8 uIU/mL Normal 2.6-24.9 [facility] Comment on above: Performed By: #### I NSULIN #### [facility] [address] [place] [address] Dr. Shemar Armas T4, T3U, FTI LABCORPon 04-27 Free Thyroxine Index 3.1 Normal 1.2-4.9 [facility] Comment on above: Performed By: #### T HYLC #### [facility] [address] [place] [address] Dr. Shemar Armas T3 Uptake 31 % Normal 24-39 [facility] Comment on above: Performed By: #### T HYLC #### [facility] [address] [place] [address] Dr. Shemar Armas T4 [Mass/Vol] 10.1 ug/dL Normal 4.5-12.0 [facility] Comment on above: Performed By: #### T HYLC #### [facility] [address] [place] [address] Dr. Shemar Armas CBC AUTO DIFFon 04-26-2022 BASO # 0.1 103/ul Normal 0.0-0.1 [facility] Comment on above: Performed By: #### B MP #### [facility] [address] [place] [address] Dr. Shemar Armas Basophils/100 WBC (Bld) 0.7 % Normal 0.2-2.0 [facility] Comment on above: Performed By: #### B MP #### [facility] [address] [place] [address] Dr. Shemar Armas EO # 0.1 103/ul Normal 0.0-0.7 [facility] Comment on above: Performed By: #### B MP #### [facility] [address] [place] [address] Dr. Shemar Armas Eosinophils/100 WBC (Bld) 0.9 % Normal 0.9-7.0 [facility] Comment on above: Performed By: #### B MP #### [facility] [address] [place] [address] Dr. Shemar Armas Erythrocyte distribution width (RBC) [Ratio] 13.7 % Normal 11.0-15.0 [facility] Comment on above: Performed By: #### B MP #### [facility] [address] [place] [address] Dr. Shemar Armas Hematocrit (Bld) [Volume fraction] 41.8 % Normal 36.0-48.0 [facility] Comment on above: Performed By: #### B MP #### [facility] [address] [place] [address] Dr. Shemar Armas Hemoglobin (Bld) [Mass/Vol] 13.9 g/dL Normal 12.0-16.0 [facility] Comment on above: Performed By: #### B MP #### [facility] [address] [place] [address] Dr. Shemar Armas IG # 0.03 10e3/ul Normal 0.00-0.03 [facility] Comment on above: Performed By: #### B MP #### [facility] [address] [place] [address] Dr. Shemar Armas IG % 0.3 % Normal 0.0-0.5 [facility] Comment on above: Performed By: #### B MP #### [facility] [address] [place] [address] Dr. Shemar Armas LYMPH # 1.8 103/ul Normal 1.2-3.8 [facility] Comment on above: Performed By: #### B MP #### [facility] [address] [place] [address] Dr. Shemar Armas Lymphocytes/100 WBC (Bld) 21.0 % Normal 20.5-60.0 [facility] Comment on above: Performed By: #### B MP #### [facility] [address] [place] [address] Dr. Shemar Armas MANUAL DIFF REQ NO Normal [facility] Comment on above: Performed By: #### B MP #### [facility] [address] [place] [address] Dr. Shemar Armas MCH (RBC) [Entitic mass] 28.8 pg Normal 26.7-34.0 [facility] Comment on above: Performed By: #### B MP #### [facility] [address] [place] [address] Dr. Shemar Armas MCHC (RBC) [Mass/Vol] 33.3 g/dL Normal 29.9-35.2 [facility] Comment on above: Performed By: #### B MP #### [facility] [address] [place] [address] Dr. Shemar Armas MCV (RBC) [Entitic vol] 86.7 fL Normal 81.0-99.0 [facility] Comment on above: Performed By: #### B MP #### [facility] [address] [place] [address] Dr. Shemar Armas MONO # 0.7 103/ul Normal 0.3-0.8 [facility] Comment on above: Performed By: #### B MP #### [facility] [address] [place] [address] Dr. Shemar Armas Monocytes/100 WBC (Bld) 7.9 % Normal 1.7-12.0 [facility] Comment on above: Performed By: #### B MP #### [facility] [address] [place] [address] Dr. Shemar Armas NEUT # 6.0 103/ul Normal 1.4-6.5 [facility] Comment on above: Performed By: #### B MP #### [facility] [address] [place] [address] Dr. Shemar Armas Neutrophils/100 WBC (Bld) 69.2 % Normal 43.0-75.0 [facility] Comment on above: Performed By: #### B MP #### [facility] [address] [place] [address] Dr. Shemar Armas Platelet mean volume (Bld) [Entitic vol] 9.7 fL Normal 9.5-13.5 [facility] Comment on above: Performed By: #### B MP #### [facility] [address] [place] [address] Dr. Shemar Armas PLT 322 103/ul Normal 150-450 [facility] Comment on above: Performed By: #### B MP #### [facility] [address] [place] [address] Dr. Shemar Armas RBC 4.82 106/ul Normal 4.20-5.40 [facility] Comment on above: Performed By: #### B MP #### [facility] [address] [place] [address] Dr. Shemar Armas WBC 8.7 103/ul Normal 4.0-11.0 [facility] Comment on above: Performed By: #### B MP #### [facility] [address] [place] [address] Dr. Shemar Armas GLYCOHEMOGLOBIN A1Con 2021 ADA RECOMMENDATION SEE BELOW Normal [facility] Comment on above: Result Comment: ADA RECOMMENDED LIMIT 4.0 - 6.0 ADA THERAPEUTIC TARGET < 7.0 ACTION SUGGESTED > 7.0 Performed By: #### P REG #### [facility] [address] [place] [address] Dr. Shemar Armas Glucose [Mass/Vol] 108 mg/dL Normal [facility] Comment on above: Performed By: #### P REG #### [facility] [address] [place] [address] Dr. Shemar Armas HbA1c (Bld) [Mass fraction] 5.4 % Normal 4.5-6.2 [facility] Comment on above: Performed By: #### P REG #### [facility] [address] [place] [address] Dr. Shemar Armas IRONon 04-26-2022 Iron [Mass/Vol] 55.0 ug/dL Normal 50.0-170.0 [facility] Comment on above: Performed By: #### I CYNDI #### [facility] [address] [address] [address] Shemar Armas LIPID PROFILEon 04-26-2022 CHOL-HDL RATIO NORM SEE BELOW Normal [facility] Comment on above: Result Comment: 3.3 - 4.4 LOW RISK 4.4 - 7.1 AVERAGE RISK 7.1 - 11.0 MODERATE RISK >11.0 HIGH RISK Performed By: #### P REG #### [facility] [address] [address] [address] Shemar Armas Cholesterol [Mass/Vol] 205 mg/dL Critically high <=200 [facility] Comment on above: Performed By: #### P REG #### [facility] [address] [address] [address] Shemar Armas Cholesterol in HDL [Mass/Vol] 57 mg/dL Normal 40-60 [facility] Comment on above: Performed By: #### P REG #### [facility] [address] [address] [address] Shemar Armas Cholesterol in LDL [Mass/Vol] 126.8 mg/dL Normal [facility] Comment on above: Performed By: #### P REG #### [facility] [address] [address] [address] Shemar Armas Cholesterol.total/Viktoriya sterol in HDL [Mass ratio] 3.6 {ratio} Normal [facility] Comment on above: Performed By: #### P REG #### [facility] [address] [address] [address] Shemar Armas HDL NORMAL > or = 60 mg/dl - LOW CARDIOVASCULAR RISK <40 mg/dl - HIGH CARDIOVASCULAR RISK Normal [facility] Comment on above: Performed By: #### P REG #### [facility] [address] [address] [address] Shemar Armas LDL CALC NORMAL SEE BELOW Normal [facility] Comment on above: Result Comment: <100 mg/dl OPTIMAL 100 - 129 mg/dl NEAR OR ABOVE OPTIMAL 130 - 159 mg/dl BORDERLINE HIGH 160 - 189 mg/dl HIGH >190 mg/dl VERY HIGH Performed By: #### P REG #### [facility] [address] [place] [address] Dr. Shemar Armas Triglyceride [Mass/Vol] 106 mg/dL Normal <=150 [facility] Comment on above: Performed By: #### P REG #### [facility] [address] [address] [address] Shemar Armas VLDL CALC 21.2 mg/dL Normal [facility] Comment on above: Performed By: #### P REG #### [facility] [address] [place] [address] Dr. Shemar Armas PROF 14(COMP METB)on 022 Albumin [Mass/Vol] 4.3 g/dL Normal 3.4-5.0 [facility] Comment on above: Performed By: #### T SH, CMP, LIPID #### [facility] [address] [place] [address] Dr. Shemar Armas Albumin/Globulin [Mass ratio] 1.2 {ratio} Normal [facility] Comment on above: Performed By: #### T SH, CMP, LIPID #### [facility] [address] [place] [address] Dr. Shemar Armas ALP [Catalytic activity/Vol] 62 U/L Normal 46-116 [facility] Comment on above: Performed By: #### T SH, CMP, LIPID #### [facility] [address] [place] [address] Dr. Shemar Armas ALT [Catalytic activity/Vol] 34 U/L Normal 14-59 [facility] Comment on above: Performed By: #### T SH, CMP, LIPID #### [facility] [address] [place] [address] Dr. Shemar Armas Anion gap [Moles/Vol] 13.7 mmol/L Normal [facility] Comment on above: Performed By: #### T SH, CMP, LIPID #### [facility] [address] [address] [address] Shemar Armas AST [Catalytic activity/Vol] 22 U/L Normal 15-37 [facility] Comment on above: Performed By: #### T SH, CMP, LIPID #### [facility] [address] [place] [address] Dr. Shemar Armas Bilirubin [Mass/Vol] 0.3 mg/dL Normal 0.2-1.0 [facility] Comment on above: Performed By: #### T SH, CMP, LIPID #### [facility] [address] [place] [address] Dr. Shemar Armas Calcium [Mass/Vol] 9.1 mg/dL Normal 8.5-10.1 [facility] Comment on above: Performed By: #### T SH, CMP, LIPID #### [facility] [address] [place] [address] Dr. Shemar Armas Chloride [Moles/Vol] 98 mmol/L Normal 98-107 [facility] Comment on above: Performed By: #### T SH, CMP, LIPID #### [facility] [address] [place] [address] Dr. Shemar Armas CO2 [Moles/Vol] 29.9 mmol/L Normal 21.0-32.0 [facility] Comment on above: Performed By: #### T SH, CMP, LIPID #### [facility] [address] [place] [address] Dr. Shemar Armas Creatinine [Mass/Vol] 1.27 mg/dL Critically high 0.55-1.02 [facility] Comment on above: Performed By: #### T SH, CMP, LIPID #### [facility] [address] [place] [address] Dr. Shemar Armas EGFR-AF POLISH 59 mL/min/1.73m2 Critically low >=60 [facility] Comment on above: Performed By: #### T SH, CMP, LIPID #### [facility] [address] [place] [address] Dr. Shemar Armas EGFR-NON AF POLISH 49 mL/min/1.73m2 Critically low >=60 [facility] Comment on above: Performed By: #### T SH, CMP, LIPID #### [facility] [address] [address] [address] Shemar Armas Globulin (S) [Mass/Vol] 3.6 g/dL Normal [facility] Comment on above: Performed By: #### T SH, CMP, LIPID #### [facility] [address] [address] [address] Shemar Armas Glucose [Mass/Vol] 92 mg/dL Normal 74-[address] [facility] Comment on above: Performed By: #### T SH, CMP, LIPID #### [facility] [address] [place] [address] Dr. Shemar Armas Potassium [Moles/Vol] 3.6 mmol/L Normal 3.5-5.1 [facility] Comment on above: Performed By: #### T SH, CMP, LIPID #### [facility] [address] [place] [address] Dr. Shemar Armas Protein [Mass/Vol] 7.9 g/dL Normal 6.4-8.2 [facility] Comment on above: Performed By: #### T SH, CMP, LIPID #### [facility] [address] [place] [address] Dr. Shemar Armas Sodium [Moles/Vol] 138 mmol/L Normal 136-145 [facility] Comment on above: Performed By: #### T SH, CMP, LIPID #### [facility] [address] [place] [address] Dr. Shemar Armas Urea nitrogen [Mass/Vol] 16.0 mg/dL Normal 7.0-18.0 [facility] Comment on above: Performed By: #### T SH, CMP, LIPID #### [facility] [address] [place] [address] Dr. Shemar Armas Urea nitrogen/Creatinine [Mass ratio] 12.6 mg/mg Normal [facility] Comment on above: Performed By: #### T SH, CMP, LIPID #### [facility] [address] [place] [address] Dr. Shemar Armas TSHon 04-26-2022 TSH 3.031 uIU/mL Normal 0.358-3.740 [facility] Comment on above: Performed By: #### P REG #### [facility] [address] [place] [address] Dr. Shemar Armas Vital Signs Date Time Vital Sign Value Performing Clinician Facility 10-26-2024 13:18-0500 Body height 160 cm Edis Murcek DO Work Phone: [facility] 10-26-2024 13:18-0500 Body mass index (BMI) [Ratio] 48.36 kg/m2 Edis Murcek DO Work Phone: [facility] 10-26-2024 13:18-0500 Body weight 123.83 kg Edis Murcek DO Work Phone: [facility] 09-21-2024 13:40-0500 Body height 160 cm Edis Murcek DO Work Phone: [facility] 09-21-2024 13:40-0500 Body mass index (BMI) [Ratio] 48.36 kg/m2 Edis Murcek DO Work Phone: [facility] 09-21-2024 13:40-0500 Body weight 123.83 kg Edis Murcek DO Work Phone: [facility] 09-01-2024 09:39-0500 Body height 160 cm Edis Murcek DO Work Phone: [facility] 09-01-2024 09:39-0500 Body mass index (BMI) [Ratio] 48.36 kg/m2 Edis Murcek DO Work Phone: [facility] 09-01-2024 09:39-0500 Body weight 123.83 kg Edis Murcek DO Work Phone: [facility] 10-02-2022 16:00-0500 Body height 160.02 cm Bonnie Jeffrey Other [facility] Other 10-02-2022 16:00-0500 Body mass index (BMI) [Ratio] 42.69 kg/m2 Bonnie Jeffrey Other [facility] Other 10-02-2022 16:00-0500 Body weight 109.32 kg Bonnie Jeffrey Other [facility] Other 09-28-2022 15:55-0500 Diastolic blood pressure 60 [...] 07-30-2022 15:29-0500 Blood Pressure Location Sanjay ZUÑIGA [facility] [place] 07-30-2022 15:29-0500 Diastolic blood pressure 83 mm[Hg] Sanjay NILL [facility] [place] 07-30-2022 15:29-0500 Heart rate 75 /min Sanjay NILL [facility] 07-30-2022 15:29-0500 Respiratory rate 16 /min Sanjay NILL [facility] 07-30-2022 15:29-0500 Systolic blood pressure 124 mm[Hg] Sanjay NILL [facility] Encounters Encounter Date Encounter Type [...] Start: 09-14-2024 End: 09-14-2024 ambulatory Donnell Brooke Facility:[facility] Start: 09-07-2024 End: 09-07-2024 External Result Encounter Edis Morales DO Work Phone: [facility] External Department Unsolicited Start: 09-07-2024 End: 09-07-2024 External Result Encounter Edis Morales DO Work Phone: [facility] External Department Unsolicited Start: 09-07-2024 End: 09-07-2024 Patient encounter procedure Donnell Brooke MD Work Phone: [facility] Work Phone: Start: 09-07-2024 End: 09-07-2024 ambulatory Donnell Brooke MD Work Phone: [facility] Work Phone: Start: 09-07-2024 Encounter for preprocedural laboratory examination Edis Morales [facility] Start: 09-01-2024 End: [...] Start: 08-03-2024 End: 08-03-2024 ambulatory Donnell Brooke Facility:[facility] Start: 08-03-2024 End: 08-03-2024 Departed Referred Donnell Brooke MD Work Phone: [facility] Start: 06-12-2023 End: 06-12-2023 ambulatory Bonnie Calvey Other [facility] Other Start: 06-12-2023 Office outpatient vi sit 15 minutes Bonnie Calvey [facility] Start: 03-20-2023 End: 03-20-2023 ambulatory Bonnie Calvey Other [facility] Other Start: 03-20-2023 Office outpatient vi sit 15 minutes Bonnie Calvey [facility] Start: 01-24-2023 End: 01-24-2023 ambulatory Bonnie Calvey Other [facility] Other Start: 01-24-2023 Office outpatient vi sit 15 minutes Bonnie Calvey [facility] Start: 11-13-2022 End: 11-13-2022 Patient encounter procedure MD Donnell Brooke Work Phone: [facility] Start: 11-13-2022 End: 11-13-2022 ambulatory MD Donnell Brooke Work Phone: [facility] Work Phone: Start: 11-13-2022 Postop follow up vis it related to original px Bonnie Calvey [facility] Start: 10-23-2022 End: 10-23-2022 ambulatory Bonnie Calvey Other [facility] Other Start: 10-23-2022 Postop follow up vis it related to original px Bonnie Calvey [facility] Start: 10-10-2022 End: 10-11-[address] DONNELL BROOKE . Facility: Start: 10-09-2022 End: 10-09-2022 ambulatory Bonnie Calvyaniv Other [facility] Other Start: 10-09-2022 Postop follow up vis it related to original px Bonnie Calvey [facility] Start: 10-02-2022 End: 10-02-2022 ambulatory Bonnie Calvey Other [facility] Other Start: 10-02-2022 Postop follow up vis it related to original px Bonnie Calvey [facility] Start: 10-02-2022 Telephone encounter Bonnie Calvey [facility] Start: 09-28-2022 End: 09-28-2022 Admission to same day surgery center MD Donnell Brooke Work Phone: [facility] [place] Start: 09-26-2022 End: 09-26-2022 ambulatory MD Donnell Brooke Work Phone: [facility] Work Phone: Start: 09-26-2022 End: 09-26-2022 Patient encounter procedure MD Donnell Brooke Work Phone: [facility] Work Phone: Start: 09-25-2022 End: 09-25-[address] DONNELL BROOKE . Facility: Start: 09-21-2022 ambulatory Sanjay ZUÑIGA Facility :[facility] Start: 09-14-2022 Encounter for preprocedural laboratory examination DR SANJAY ZUÑIGA . [facility] Start: 09-12-2022 End: 09-13-2022 ambulatory Sanjay ZUÑIGA Facility:[id number] Start: 09-11-2022 End: 10-06-[address] DONNELL BROOKE . Facility:[facility] Start: 09-07-2022 End: 09-08-[address] DONNELL BROOKE . Facility:[facility] Start: 09-07-2022 End: 09-08-2022 Encounter for preprocedural laboratory examination DR DONNELL BROOKE . Facility:[facility] Start: 07-30-2022 End: 07-31-2022 ambulatory Donnell Brooke PROVIDER Facility:[facility] Start: 07-30-2022 End: 07-30-2022 Patient encounter procedure Sanjay ZUÑIGA [facility] [place] Start: 07-10-2022 ambulatory Donnell Brooke PROVIDER Facility:[facility] Start: 07-09-2022 End: 07-10-2022 ambulatory [...] abnormal findings DR DONNELL BROOKE . [facility] Start: 04-26-2022 End: 04-27-[address] [...] Visit [facility] [place] [address] [place] [id number] Edis Morales, DO [address] [place] [address] [facility] [place] Start: 01-26-2025 End: 10-26-2025 Thyroglobulin Thyroglobulin Lab Routine Malignant neoplasm of thyroid gland (CMS/HCC) Status post partial thyroidectomy (CMS/HCC) Expected: 01/26/2025 (Approximate), Expires: 10/26/2025 [facility] Comment on above: Expected: 01/26/2025 (Approximate), Expires: 10/26/2025 Start: 01-26-2025 End: 10-26-2025 Thyrotropin [Units/volume] in Serum or Plasma [facility] Comment on above: Expected: 01/26/2025 (Approximate), Expires: 10/26/2025 Start: 01-26-2025 End: 10-26-2025 Triiodothyronine (T3) [Mass/volume] in Serum or Plasma T3 Lab Routine Malignant neoplasm of thyroid gland (CMS/HCC) Status post partial thyroidectomy (CMS/HCC) Expected: 01/26/2025 (Approximate), Expires: 10/26/2025 [facility] Comment on above: Expected: 01/26/2025 (Approximate), Expires: 10/26/2025 Start: 12-10-2024 End: 10-26-2025 Thyroglobulin Thyroglobulin Lab Routine Malignant neoplasm of thyroid gland (CMS/HCC) Status post partial thyroidectomy (CMS/HCC) Expected: 12/10/2024 (Approximate), Expires: 10/26/2025 [facility] Comment on above: Expected: 12/10/2024 (Approximate), Expires: 10/26/2025 Start: 12-10-2024 End: 10-26-2025 Thyrotropin [Units/volume] in Serum or Plasma [facility] Comment on above: Expected: 12/10/2024 (Approximate), Expires: 10/26/2025 Start: 12-10-2024 End: 10-26-2025 Triiodothyronine (T3) [Mass/volume] in Serum or Plasma T3 Lab Routine Malignant neoplasm of thyroid gland (CMS/HCC) Status post partial thyroidectomy (CMS/HCC) Expected: 12/10/2024 (Approximate), Expires: 10/26/2025 [facility] Work Phone: Comment on above: Expected: 12/10/2024 (Approximate), Expires: 10/26/2025 Start: 10-26-2024 End: 10-26-2024 Patient encounter procedure [facility] [place] Comment on above: Arrived Start: 10-19-2024 End: 09-21-2025 Thyroglobulin Thyroglobulin Lab Routine Status post partial thyroidectomy (CMS/HCC) Expected: 10/19/2024 (Approximate), Expires: 09/21/2025 [facility] Comment on above: Expected: 10/19/2024 (Approximate), Expires: 09/21/2025 Start: 10-19-2024 End: 09-21-2025 Thyrotropin [Units/volume] in Serum or Plasma [facility] Work Phone: Comment on above: Expected: 10/19/2024 (Approximate), Expires: 09/21/2025 Start: 10-19-2024 End: 09-21-2025 Triiodothyronine (T3) [Mass/volume] in Serum or Plasma T3 Lab Routine Status post partial thyroidectomy (CMS/HCC) Expected: 10/19/2024 (Approximate), Expires: 09/21/2025 [facility] Comment on above: Expected: 10/19/2024 (Approximate), Expires: 09/21/2025 Start: 09-21-2024 End: 09-21-2024 Patient encounter procedure [facility] Comment on above: Arrived Start: 09-01-2024 End: 09-01-2025 Calcium [Mass/volume] in Serum or Plasma Calcium Lab Routine Thyroid nodule (CMS/HCC) Expected: 09/01/2024 (Approximate), Expires: 09/01/2025 [facility] Comment on above: Expected: 09/01/2024 (Approximate), Expires: 09/01/2025 Start: 09-01-2024 End: 09-01-2025 Parathyrin.intact [Mass/volume] in Serum or Plasma PTH, intact Lab Routine Thyroid nodule (CMS/HCC) Expected: 09/01/2024 (Approximate), Expires: 09/01/2025 [facility] Work Phone: Comment on above: Expected: 09/01/2024 (Approximate), Expires: 09/01/2025 Start: 09-01-2024 End: 09-01-2025 Thyrotropin [Units/volume] in Serum or Plasma TSH Lab Routine Thyroid nodule (CMS/HCC) Expected: 09/01/2024 (Approximate), Expires: 09/01/2025 [facility] Comment on above: Expected: 09/01/2024 (Approximate), Expires: 09/01/2025 Start: 09-01-2024 End: 09-01-2024 Patient encounter procedure 09/01/2024 9:45 AM EST Office Visit [facility] [place] [address] [place] [address] Edis Morales, [address] [place] [address] Arrived [facility] Comment on above: Arrived Start: 09-28-2022 [facility] Start: 09-28-2022 [facility] Basic metabolic 1998 panel - Serum or Plasma Basic metabolic panel Lab Routine 09/07/2024 11:55 AM EST [facility] Work Phone: Patient referral [facility] Work Phone: Immunizations Immunization Date Immunization Notes Care Provider Fa cility 05-27-2024 Seasonal, trivalent, recombinant, injectable influenza vaccine, preservative free Edis Morales DO Work Phone: [facility] 05-05-2021 influenza virus vaccine, unspecified formulation Edis Morales DO Work Phone: [facility] 04-28-2020 influenza, injectable, quadrivalent, preservative free Edis Morales DO Work Phone: [facility] NEGATED: Highlighted row has not occurred!07-30-2022 influenza virus vaccine, unspecified formulation Sanjay ZUÑIGA [facility] [place] Payers Date Payer Category Payer Self-pay 2022 Private Health Insurance [employer] [id number] 2022 Unknown [id number] 1990 Unknown [id number] 2.16.840.1.757553.3.579.2. 727 1990 Unknown [id number] 2.16.840.1.029960.3.579.2. 727 1990 Unknown [id number] 2.16.840.1.802629.3.579.2. 727 1990 Unknown [id number] 2.16.840.1.343682.3.579.2. 727 1990 Unknown [id number] 2.16.840.1.346096.3.579.2. 727 1990 Unknown [id number] 2.16.840.1.368014.3.579.2. 593 1990 Unknown [id number] 2.16.840.1.182940.3.579.2. 593 1990 Unknown [id number] 2.16.840.1.522122.3.579.2. 593 1990 Unknown [id number] 2.16.840.1.432836.3.579.2. 593 1990 Unknown [id number] 2.16.840.1.878911.3.579.2. 593 1990 Unknown [id number] 2.16.840.1.087388.3.579.2. 593 1990 Unknown [id number] 2.16.840.1.779465.3.579.2. 593 1990 Unknown [id number] 2.16.840.1.328334.3.579.2. 593 1990 Unknown [id number] 2.16.840.1.417182.3.579.2. 593 1990 Unknown [id number] 2.16.840.1.649062.3.579.2. 593 1990 Unknown [id number] 2.16.840.1.617709.3.579.2. 593 1990 Unknown [id number] 2.16.840.1.404896.3.579.2. 593 1990 Unknown [id number] 2.16.840.1.334781.3.579.2. 1259 1990 Unknown [id number] 2.16.840.1.360430.3.579.2. 1259 1990 Unknown [id number] 2.16.840.1.394392.3.579.2. 1259 1990 Unknown [id number] 2.16.840.1.832716.3.579.2. 1259 1959 Unknown [id number] Unknown [id number] 2.16.840.1.894744.3.579.2. 531 Unknown [id number] 2.16.840.1.242953.3.579.2. 531 Unknown [id number] 2.16.840.1.795260.3.579.2. 531 Social History Date Type Detail Facility Start: 07-30-2022 End: 09-01-2024 Tobacco smoking status Never smoked tobacco (finding) [facility] [place] Start: 09-01-2024 End: 10-26-2024 Sex Assigned At Female [facility] Start: 1990 Sex Assigned At Female [facility] Start: 09-01-2024 Tobacco use and exposure Smokeless tobacco non-user [facility] Start: 09-01-2024 End: 10-26-2024 Alcoholic beverage intake Ex-drinker (finding) [facility] Start: 09-01-2024 End: 10-26-2024 History of Social function [facility] Start: 2024 Gender identity Identifies as female gender (finding) [facility] Tobacco smoking stat [facility] Tobacco smoking consumption unknown [facility] Start: 09-08-2024 Sex Female (finding) [facility] Goals Date Patient Goal Desired Activity /State Functional Status Date Assessment Result Facility 07-30-2022 Functional Status N/A Ronnie [facility] [place] Clinical Notes 08-20-2022 to 10-26-2024 Edis Morales [...] at that time. documented in this encounter [facility] 09-21-2024 History of Present illness Narrative Formatting [...] this visit: Malignant neoplasm of thyroid gland ([facility]) (Primary) Comments: I will see the patient back in 1 month with T3, T4, TSH and thyroglobulin. She will need surveillance thereafter. Status post partial thyroidectomy ([facility]) Comments: Patient does not need completion thyroidectomy for this small well contained tumor. Orders: - TSH; Future - T3; Future - T4; Future - Thyroglobulin; Future - TSH - T3 - T4 - Thyroglobulin documented in this encounter [facility] 09-14-2024 History of Present illness Narrative Formatting of this note might be differe nt from the original. mmm documented in this encounter [facility] 09-01-2024 History of Present illness Narrative Formatting of this note might be differe nt from the original. Work note Allergies as of 09/01/2024 - Reviewed 09/01/2024 Allergen Reaction Noted Morphine 08/29/2024 Silver 08/29/2024 Past Medical History: Diagnosis Date BMI 40.0-44.9, adult ([facility] 08/29/2024 Cervical radiculopathy 08/29/2024 History of pilonidal cyst 08/29/2024 HTN (hypertension) ([facility] 08/29/2024 Hypercholesteremia ([facility]) 08/29/2024 Insomnia 08/29/2024 Migraines ([facility]) 08/29/2024 Morbid obesity ([facility]) 08/29/2024 Orthostatic hypotension 08/29/2024 Current Outpatient Medications: [...] [facility]. Molecular testing shows [...] base of tongue appear without lesion Assessment/Plan Veroncia was seen today for thyroid nodule. Diagnoses and all orders for this visit: Thyroid nodule (CMS/[facility]) Comments: Given the above, this almost [...] consented to proceed. documented in this encounter [facility] 06-12-2023 Evaluation note Encounter Date Diagnosis Assessment [...] Other specified postprocedural states (ICD-10 - Z98.890) [facility] Other 07-26-2023 Evaluation note* Encounter Date Diagnosis Assessment Notes Treatment Notes Treatment Clinical Notes Feb, Crushing injury of right thumb, subsequent encounter (ICD-10 - S67.01XD) Patient instructed to keep cuticle moisturized and pushed back. Activity as tolerated Feb, Injury of nail bed o f finger of right hand, subsequent encounter (ICD-10 - S69.91XD) Feb, Other specified postprocedural states (ICD-10 - Z98.890) [facility] Other 06-01-2023 Evaluation note* Encounter Date Diagnosis [...] Other specified postprocedural states (ICD-10 - Z98.890) [facility] Other 03-21-2023 Evaluation note* Encounter Date Diagnosis [...] Other specified postprocedural states (ICD-10 - Z98.890) [facility] Other 02-28-2023 Evaluation note* Encounter Date Diagnosis Assessment Notes Treatment Notes Treatment Clinical Notes Sep, Crushing injury of right thumb, initial encounter (ICD-10 - S67.01XA) Patient instructed on the use of moisturizer for the nailbed. Return to work note given Sep, Injury of nail bed of right thumb, initial encounter (ICD-10 - S69.91XA) [facility] Other 02-14-2023 Evaluation note* Encounter Date Diagnosis Assessment Notes Treatment Notes Treatment Clinical Notes Sep, Crushing injury of right thumb, initial encounter (ICD-10 - S67.01XA) Patient instructed to continue with current wound care and use of stax splint. Continue off work Sep, Injury of nail bed of right thumb, initial encounter (ICD-10 - S69.91XA) [facility] Other 02-07-2023 Evaluation note* Encounter Date Diagnosis Assessment Notes Treatment Notes Treatment Clinical Notes Sep, Crushing injury of right thumb, initial encounter (ICD-10 - S67.01XA) Patient instructed to continue daily soaking. Rx given for Zofran due to vomitting from narcotics Sep, Injury of nail bed of right thumb, initial encounter (ICD-10 - S69.91XA) [facility] Other 01-31-2023 NotePROCEDURE: XR HAND RT MIN [...] Electronically authenticated by: MYAH LEAL Date: 2022-09-25 07:51[facility]01-18-2023 NoteOPERATIVE NOTE OPERATION DATE: 09/12/2022 PREOPERATIVE [...] in good condition. CC: Patient's family physicianThe [facility] Sam[facility] [id number] NoteChief Complaint consultation for RUQ pain HPI [...] morphine (Chest pain) [facility] (more content not included)...[facility] Result Comment: Electronically Signed By: SOL ESPINOZA, Sanjay Paredes\Date and Time Signed: 08/20/22 10:27 ESTEvaluation + Plan note No data available for this section [facility] [place] Evaluation noteNo assessment information available [facility] Work Phone: Evaluation noteNo InformationNortJefferson [facility] Other Evaluation note* Diagnosis Thyroid nodule (CMS/HCC) Nontoxic uninodular goiter [facility] Diagnosis Thyroid mass (CMS/HCC)- Primary Unspecified disorder of thyroid documented in [facility] encounter [facility]* Diagnosis Malignant neoplasm of thyroid gland (CMS/HCC)- Primary Malignant neoplasm of thyroid gland Status post partial thyroidectomy (CMS/HCC) Other postprocedural status [facility]* Diagnosis Malignant neoplasm of thyroid gland (CMS/HCC)- Primary Malignant neoplasm of thyroid gland Status post partial thyroidectomy (CMS/HCC) Other postprocedural status [facility] Healthcare[facility] general Narrative - Reported* Type Description Date Medical History depression Medical History bradycardia Medical History tachycardia Surgical History tonsillectomy Surgical History pylenol cysts Surgical History wisdom teeth Surgical History plantar fasciitis, tarsal tunne l x 2 right foot [facility] Other History general Narrative - Reported* Type Description Date Medical History depression Medical History bradycardia Medical History tachycardia Surgical History tonsillectomy Surgical History pylenol cysts Surgical History wisdom teeth Surgical History plantar fasciitis, tarsal tunne l x 2 right foot Surgical History right thumb I & D 09/28/2022 [facility] Other Hospital Discharge instructions No data available for this section [facility] [place] Progress note No data available for this section [facility] [place] Chief Complaint and Reason for Visit Chief [...] Active Bonnie Jeffrey MD Attending Provider Active Operating Manager Relationship Specialty Start Date End Date Donnell Brooke MD [address] [place] [address] PCP - General Family Medicine 11/18/23 Willa Hanks DO [address] [place] [address] Referring Physician Neurology 11/18/23 Edis Morales DO [address] [place] [address] Otolaryngology 09/01/24 Operating Manager Relationship Specialty Start Date End Date Donnell Brooke MD [address] [place] [id number] PCP - General Family Medicine 11/18/23 Willa Hanks DO [address] [place] [address] Referring Physician Neurology 11/18/23 Edis Morales DO [address] [place] [address] Otolaryngology 09/01/24 Operating Manager Relationship Specialty Start Date End Date Donnell Brooke MD [address] [place] [address] PCP - General Family Medicine 11/18/23 Willa Hanks DO [address] [place] [address] Referring Physician Neurology 11/18/23 Edis Morales DO [address] [place] [address] Otolaryngology 09/01/24 Team Status: Inactive Member Role [...] September 07, 2024 End: September 07, 2024 Operating Manager Relationship Specialty Start Date End Date Donnell Brooke MD [facility] [facility] [place] [address] PCP - General Family Medicine 11/18/23 Willa Hanks DO [address] [place] [address] Referring Physician Neurology 11/18/23 Edis Morales DO [address] [place] [address] Otolaryngology 09/01/24 Operating Manager Relationship Specialty Start Date End Date Donnell Brooke MD [address] [place] [address] PCP - General Family Medicine 11/18/23 Willa Hanks DO [address] [place] [address] Referring Physician Neurology 11/18/23 Edis Morales, [address] [place] [address] Otolaryngology 09/01/24 Operating Manager Relationship Specialty Start Date End Date Donnell Brooke MD [address] [place] [address] PCP - General Family Medicine 11/18/23 Willa Hanks DO [address] [place] [address] Referring Physician Neurology 11/18/23 Edis Morales, [address] [place] [address] Otolaryngology 09/01/24 Operating Manager Relationship Specialty Start Date End Date Donnell Brooke MD [address] [place] [address] PCP - General Family Medicine 11/18/23 Willa Hanks DO [address] [place] [address] Referring Physician Neurology 11/18/23 Edis Morales, [address] [place] [address] Otolaryngology 09/01/24 Goals (unrecognized section and content) Goals may be documented in a n alternate section INFORMATION SOURCE (unrecogn ized section and content) DATE CREATED AUTHOR 09/29/2022 [facility] DATE CREATED AUTHOR AUTHOR'S ORGANIZ ATION 12/01/2022 [facility] DATE CREATED AUTHOR AUTHOR'S ORGANIZ ATION 10/03/2024 [facility] DATE CREATED AUTHOR AUTHOR'S ORGANIZ ATION 10/27/2024 [facility] EPIC REASON FOR VISIT [...] BE BASED ON THE PRIMARY CLINICAL RECORDS. [employer] provides no warranty or guarantee of the accuracy or completeness of information in this document.
--- OUTSIDE RECORDS SUMMARY | 2025-01-30 10:16 | XMS_ITS | Patient Health Record ---
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 Name Role Phone Ramón Brooke Primary Care Provider [phone] DONNELL BROOKE Unavailable [phone] Allergies Allergen (clinical drug ingredient) Drug/Non Drug Allergy documented on EMR Reaction Allergy Type Onset Date Status irbesartan Irbesartan Unknown Drug Allergy Activ e Results Component Value Reference Range Notes PROF 14(COMP METB) Reviewed date:04/20/2024 06:35:09 PM Interpretation: Performing Lab: Notes/Report: [facility] , Sodium 140 136-145 mmol/L Potassium 3.7 3.5-5.1 mmol/L Chloride 101 98-107 mmol/L Carbon Dioxide 31.9 21.0-32.0 mmol/L Anion Gap 10.8 Glucose 78 74-106 mg/dL Blood Urea Nitrogen 14.0 7.0-18.0 mg/dL Creatinine 1.11 0.55-1.02 mg/dL Estimated GFR ( Perri >60 >=60 Estimated GFR (Non- Freya 57 >=60 BUN Creatinine Ratio 12.6 Calcium 8.9 8.5-10.1 mg/dL Bilirubin Total 0.4 0.2-1.0 mg/dL Aspartate Amino Transferase 15 15-37 U/L Alanine Aminotransferase 26 14-59 U/L Alkaline Phosphatase 64 46-116 U/L Total Protein 7.2 6.4-8.2 g/dL Albumin Level 3.8 3.4-5.0 g/dL Globulin 3.4 Albumin Globulin Ratio 1.1 Performing Lab: see note ML - [facility] LB PROF CHEM 8 (BAS METB) Reviewed date:12/14/2024 06:30:53 PM Interpretation: Performing Lab: Notes/Report: [facility] , Sodium 140 136-145 mmol/L Potassium 3.7 3.5-5.1 mmol/L Chloride 101 98-107 mmol/L Carbon Dioxide 30.8 21.0-32.0 mmol/L Anion Gap 11.9 Glucose 94 74-106 mg/dL Blood Urea Nitrogen 13.0 7.0-18.0 mg/dL Creatinine 1.19 0.55-1.02 mg/dL Estimated GFR ( Perri >60 >=60 mL/min/1.73m 2 Estimated GFR (Non- Freay 52 >=60 mL/min/1.73m 2 BUN Creatinine Ratio 10.9 Calcium 9.0 8.5-10.1 mg/dL Performing Lab: see note - [facility] VITAMIN D 25 [place] Reviewed date:12/14/2024 06:30:53 PM Interpretation: Performing Lab: Notes/Report: [facility] , Vitamin D 16.4 <20 ng/mL Vit D deficient 20-<30 ng/mL Vit D insufficient 30-100 ng/mL Vit D sufficient >100 ng/mL Potential Toxicity Performing Lab: see note ML - [facility] US THYROID Reviewed date:07/04/2024 03:59:51 PM Interpretation: Performing Lab: Notes/Report: Source Facility: [place] [address] [place] [address] Ultrasound Report Signed Patient: VERONICA ROSS MR#: [id number] : 1990 Acct:[id number] Age/Sex: 33 / F ADM Date: 07/02/24 Loc: US Attending Dr: Donnell Brooke M.D. Ordering Physician: Donnell Brooke M.D. Date of Service: 07/02/24 Procedure(s): US thyroid Accession Number(s): [id number] cc: Donnell Brooke M.D. [place] [address] Patient Name: VERONICA ROSS MRN: [facility]:[id number] date: 1990 Sex: F Assigned Patient Location: US Current Patient Location: Accession/Order Number: [id number] Exam Date: 07/02/2024 18:00 Report Date: 07/03/2024 06:44 At the request of: DONNELL BROOKE Procedure: US thyroid EXAMINATION: US thyroid HISTORY: ENLARGED THYROID E04.9 COMPARISON: Ultrasound thyroid 06/26/2023 FINDINGS: RIGHT LOBE: Slightly heterogeneous echotexture and contains a 12 mm TR 4 nodule within mid right lobe/isthmus. Lobe size: 3.8 x 1.5 1.3 cm LEFT LOBE: Slightly heterogeneous echotexture and contains a 7 mm TR 3 nodule within inferior pole. Lobe size: 4.7 x 1.5 x 1.8 cm ISTHMUS: Normal size and echotexture. Thickness: 2 mm US/US thyroid IMPRESSION: 1. Right lobe/isthmus 12 mm TR 4 nodule; stable to minimally increased in size. Ultrasound-guided tissue sampling should be considered. TR4 (moderately suspicious): If > 1.0 cm, follow-up ultrasound in 1, 2, 3, and 5 years. If > 1.5 cm, fine needle aspiration (FNA). TR3 (mildly suspicious): > 1.5 cm, follow-up ultrasound in 1, 3, and 5 years. > 2.5 cm, fine needle aspiration. Electronically authenticated by: PAULINO BARROS Date: 07/03/2024 06:44 Dictated By: Paulino Barros M.D. Signed By: 07/03/2447 DD/ 3 TD/TT: Family Law Specialist: [place] [address] Ultrasound Report Signed Patient: ZAKIA ROSS MR#: [id number] : 1990 Acct:[id number] Age/Sex: 33 / F ADM Date: 07/02/24 Loc: US Attending Dr: Leslie Brooke M.D. Ordering Physician: Donnell Brooke M.D. Date of Service: 07/02/24 Procedure(s): US thyroid Accession Number(s): [id number] cc: Donnell Brooke M.D. The [address] [address] Patient Name: VERONICA ROSS MRN: [id number] date: 1990 Sex: F Assigned Patient Location: US Current Patient Location: Accession/Order Numb er: [id number] Exam Date: 18:00 Report Date: 07/03/2024 06:44 At the request of: DONNELL BROOKE Procedure: US thyroid EXAMINATION: US thyroid HISTORY: ENLARGED THYROID E04.9 COMPARISON: Ultrasou nd thyroid 06/26/2023 FINDINGS: RIGHT LOBE: Slightly heterogeneous echotexture and contains a 12 mm TR 4 nodule within mid right lobe/isthmus. Lobe size: 3.8 x 1.5 1.3 cm LEFT LOBE: Slightly heterogeneous echotexture and contains a 7 mm TR 3 nodule within inferior pole. Lobe size: 4.7 x 1.5 x 1.8 cm ISTHMUS: Normal size and echotexture. Thickness: 2 mm U S/US thyroid IMPRESSION: 1. Right lobe/isthmu s 12 mm TR 4 nodule; stable to minimally increased in size. Ultrasound-guided ti ssue sampling should be considered. TR4 (moderately suspicious): If > 1.0 cm, follow-up ultrasound in 1, 2, 3, and 5 years. If > 1.5 cm , fine needle aspiration (FNA). TR3 (mildly suspicio us): > 1.5 cm, follow-up ultrasound in 1, 3, and 5 years. > 2.5 cm, fine needle aspiration. Electronically authenticated by: PAULINO BARROS Date: 07/03/2024 06:44 Dictated By: Paulino Barros M.D. Signed By: 07/03/2447 DD/ TD/TT: Family Law Specialist: CBC AUTO DIFF Reviewed date:10/25/2024 12:48:38 PM Interpretation: Performing Lab: Notes/Report: [facility] , White Blood Count 6.9 4.0-11.0 10 3/uL Red Blood Count 4.67 4.20-5.40 10 6/uL Hemoglobin 12.1 12.0-16.0 g/dL Hematocrit 38.0 36.0-48.0 % Mean Corpuscular Volume 81.4 81.0-99.0 fL Mean Corpuscular Hemoglobin 25.9 26.7-34.0 pg Mean Corpuscular HGB Conc 31.8 29.9-35.2 g/dL Red Cell Distribution Width 14.7 11.0-15.0 % Platelet Count 348 150-450 10 3/uL Mean Platelet Volume 9.2 9.5-13.5 fL Neutrophils Percent Auto 71.3 43.0-75.0 % Lymphocytes Percent Auto 19.9 20.5-60.0 % Monocytes Percent Auto 5.9 1.7-12.0 % Eosinophils Percent Auto 1.6 0.9-7.0 % Basophils Percent Auto 1.0 0.2-2.0 % Immature Granulocytes Pct Auto 0.3 0.0-0.5 % Neutrophils Absolute Auto 4.9 1.4-6.5 10 3/uL Lymphocytes Absolute Auto 1.4 1.2-3.8 10 3/uL Monocytes Absolute Auto 0.4 0.3-0.8 10 3/uL Eosinophils Absolute Auto 0.1 0.0-0.7 10 3/uL Basophils Absolute Auto 0.1 0.0-0.1 10 3/uL Immature Granulocytes Abs Auto 0.02 0.00-0.03 10 3/uL Performing Lab: see note ML - [facility] GLYCOHEMOGLOBIN A1C Reviewed date:10/25/2024 12:48:38 PM Interpretation: Performing Lab: Notes/Report: [facility] , Glycohemoglobin A1C 5.5 4.5-6.2 % ADA RECOMMENDED LIMIT 4.0 - 6.0 ADA THERAPEUTIC TARGET < 7.0 ACTION SUGGESTED > 7.0 Estimated Average Glucose 111 Performing Lab: see note ML - [facility] LB IRON Reviewed date:10/25/2024 12:48:38 PM Interpretation: Performing Lab: Notes/Report: [facility] , Iron 39.0 50.0-170.0 ug/dL Performing Lab: see note - [facility] LB LIPID PROFILE Reviewed date:10/25/2024 12:48:38 PM Interpretation: Performing Lab: Notes/Report: [facility] , Triglycerides 109 <=150 mg/dL Cholesterol 190 <=200 mg/dL HDL Cholesterol 52 40-60 mg/dL > or =60 mg/dl - LOW CARDIOVASCULAR RISK <40 mg/dl - HIGH CARDIOVASCULAR RISK LDL Cholesterol Calculated 116.2 <100 mg/dl OPTIMAL 100-129 mg/dl NEAR OR ABOVE OPTIMAL 130-159 mg/dl BORDERLINE HIGH 160-189 mg/dl HIGH >190 mg/dl VERY HIGH VLDL CHOLESTEROL 21.8 Chol HDL Ratio 3.7 3.3 - 4.4 LOW RISK 4.4 - 7.1 AVERAGE RISK 7.1 - 11.0 MODERATE RISK >11.0 HIGH RISK Performing Lab: see note ML - [facility] LB CBC AUTO DIFF Reviewed date:03/26/2024 07:55:32 PM Interpretation: Performing Lab: Notes/Report: [facility] , White Blood Count 9.4 4.0-11.0 10 3/uL Red Blood Count 4.69 4.20-5.40 10 6/uL Hemoglobin 12.5 12.0-16.0 g/dL Hematocrit 39.1 36.0-48.0 % Mean Corpuscular Volume 83.4 81.0-99.0 fL Mean Corpuscular Hemoglobin 26.7 26.7-34.0 pg Mean Corpuscular HGB Conc 32.0 29.9-35.2 g/dL Red Cell Distribution Width 14.6 11.0-15.0 % Platelet Count 314 150-450 10 3/uL Mean Platelet Volume 9.4 9.5-13.5 fL Neutrophils Percent Auto 72.2 43.0-75.0 % Lymphocytes Percent Auto 18.8 20.5-60.0 % Monocytes Percent Auto 6.5 1.7-12.0 % Eosinophils Percent Auto 1.6 0.9-7.0 % Basophils Percent Auto 0.7 0.2-2.0 % Immature Granulocytes Pct Auto 0.2 0.0-0.5 % Neutrophils Absolute Auto 6.8 1.4-6.5 10 3/uL Lymphocytes Absolute Auto 1.8 1.2-3.8 10 3/uL Monocytes Absolute Auto 0.6 0.3-0.8 10 3/uL Eosinophils Absolute Auto 0.2 0.0-0.7 10 3/uL Basophils Absolute Auto 0.1 0.0-0.1 10 3/uL Immature Granulocytes Abs Auto 0.02 0.00-0.03 10 3/uL Performing Lab: see note ML - [facility] LB LIPASE Reviewed date:03/26/2024 07:55:32 PM Interpretation: Performing Lab: Notes/Report: [facility] , Lipase 93.0 16.0-77.0 U/L Performing Lab: see note ML - [facility] LB PROF 14(COMP METB) Reviewed date:03/26/2024 07:55:32 PM Interpretation: Performing Lab: Notes/Report: [facility] , Sodium 140 136-145 mmol/L Potassium 2.9 3.5-5.1 mmol/L RESULTS RIOS D TO DENZEL CISSE Chloride 102 98-107 mmol/L Carbon Dioxide 28.1 21.0-32.0 mmol/L Anion Gap 12.8 Glucose 126 74-106 mg/dL Blood Urea Nitrogen 18.0 7.0-18.0 mg/dL Creatinine 1.30 0.55-1.02 mg/dL Estimated GFR ( Perri 57 >=60 Estimated GFR (Non- Freya 47 >=60 BUN Creatinine Ratio 13.8 Calcium 8.7 8.5-10.1 mg/dL Bilirubin Total 0.3 0.2-1.0 mg/dL Aspartate Amino Transferase 19 15-37 U/L Alanine Aminotransferase 23 14-59 U/L Alkaline Phosphatase 84 46-116 U/L Total Protein 7.2 6.4-8.2 g/dL Albumin Level 3.8 3.4-5.0 g/dL Globulin 3.4 Albumin Globulin Ratio 1.1 Performing Lab: see note ML - [facility] LB CT abdomen pelvis w con Reviewed date:03/26/2024 07:55:32 PM Interpretation: Performing Lab: Notes/Report: Source Facility: [facility] [place] [address] [place] [address] CT Scan Report Signed Patient: VERONICA ROSS MR#: [id number] : 1990 Acct:[id number] Age/Sex: 33 / F ADM Date: 03/26/24 Loc: ER Attending Dr: Ordering Physician: Nathaniel Lee Date of Service: 03/26/24 Procedure(s): CT abdomen pelvis w con Accession Number(s): [id number] cc: Donnell Brooke M.D. The [address] [address] Patient Name: VERONICA ROSS MRN: [id number] date: 1990 Sex: F Assigned Patient Location: ER Current Patient Location: ER Accession/Order Number: [id number] Exam Date: 03/26/2024 16:37 Report Date: 03/26/2024 17:26 At the request of: NATHANIEL LEE Procedure: CT abdomen pelvis w con EXAM: CT abdomen pelvis w con Comparison: None available. CLINICAL INDICATION: Right upper quadrant pain. TECHNIQUE: Axial images through the abdomen and pelvis were obtained with intravenous contrast. Coronal and sagittal reconstructions were obtained. Dose reduction techniques were achieved by using automated exposure control and/or adjustment of mA and/or kV according to patient size and/or use of iterative reconstruction technique. CONTRAST: 98 mL of Omnipaque 300 was administered intravenously. FINDINGS: LOWER CHEST: The visualized portions of the lung bases are clear. LIVER: Unremarkable. GALLBLADDER: Unremarkable. BILE DUCTS: Unremarkable. PANCREAS: Unremarkable. SPLEEN: Unremarkable. ADRENALS: Unremarkable. KIDNEYS/URETERS: Unremarkable. BLADDER: Unremarkable. PELVIC STRUCTURES: IUD in place, appears slightly low-lying and possibly malpositioned. No adnexal masses. No significant pelvic free fluid. Probable right ovarian dominant follicle. GI TRACT: Evaluation of bowel limited by fecal contents and lack of distention. No evidence of bowel obstruction. No evidence of acute appendicitis. VASCULAR STRUCTURES: Unremarkable. LYMPH NODES: No pathologic lymphadenopathy by CT size criteria. PERITONEUM: No free air. No abscess. SOFT TISSUES: Unremarkable. OSSEOUS STRUCTURES: No acute osseous abnormality. No suspicious osseous lesions. CT/CT abdomen pelvis w con IMPRESSION: 1. No acute process identified to explain right upper quadrant pain. 2. IUD in place, appears slightly low-lying and possibly malpositioned. Electronically authenticated by: ILENE ORTA Date: 03/26/2024 17:26 Dictated By: Ilene Orta M.D. Signed By: 03/26/241728 DD/ 25 TD/TT: Family Law Specialist: The [address] [address] [address] Scan Report Signed Patient: AZKIA ROSS MR#: [id number] : 1990 Acct:[id number] Age/Sex: 33 / F ADM Date: 03/26/24 Loc: ER Attending Dr: Ordering Physician: Nathaniel Lee Date of Service: 03/26/24 Procedure(s): CT abd omen pelvis w con Accession Number(s): [id number] cc: Donnell Brooke M.D. [address] [address] Patient Name: VERONICA ROSS MRN: [id number] date: 1990 Sex: F Assigned Patient Location: ER Current Patient Location: ER Accession/Order Numb er: [id number] Exam Date: 03/26/2024 16:37 Report Date: 03/26/2024 17:26 At the request of: NATHANIEL LEE Procedure: CT abdome n pelvis w con EXAM: CT abdomen pel vis w con Comparison: None available. CLINICAL INDICATION: Right upper quadrant pain. TECHNIQUE: Axial bekah ges through the abdomen and pelvis were obtained with intravenous contrast . Coronal and sagittal reconstructions were obtained. Dose reduction techniques were achieved by using automated exposure control and/or adjustment of mA and/or kV according to patient size and/or use of iterative reconstruc tion technique. CONTRAST: 98 mL of Omnipaque 300 was administered intravenously. FINDINGS: LOWER CHEST: The visualized portions of the lung bases are clear. LIVER: Unremarkable. GALLBLADDER: Unremarkable. BILE DUCTS: Unremarkable. PANCREAS: Unremarkable. SPLEEN: Unremarkable. ADRENALS: Unremarkable. KIDNEYS/URETERS: Unremarkable. BLADDER: Unremarkable. PELVIC STRUCTURES: I UD in place, appears slightly low-lying and possibly malpositioned. No adnexal masses. No significant pelvic free fluid. Probable right ovarian domina nt follicle. GI TRACT: Evaluation of bowel limited by fecal contents and lack of distention. No evidence of bowel obstruction. No evidence of acute appendicitis. VASCULAR STRUCTURES: Unremarkable. LYMPH NODES: No pathologic lymphadenopathy by CT size criteria. PERITONEUM: No free air. No abscess. SOFT TISSUES: Unremarkable. OSSEOUS STRUCTURES: No acute osseous abnormality. No suspicious osseous lesions. C T/CT abdomen pelvis w con IMPRESSION: 1. No acute process identified to explain right upper quadrant pain. 2. IUD in place, agueda ears slightly low-lying and possibly malpositioned. Electronically authenticated by: ILENE ORTA Date: 03/26/2024 17:26 Dictated By: Rubin Orta M.D. Signed By: 03/26/241728 DD/ 25 TD/TT: Family Law Specialist: PROF [place](COMP METB) Reviewed date:04/14/2024 07:28:29 PM Interpretation: Performing Lab: Notes/Report: [facility] , Sodium 139 136-145 mmol/L Potassium 3.2 3.5-5.1 mmol/L Chloride 99 98-107 mmol/L Carbon Dioxide 30.3 21.0-32.0 mmol/L Anion Gap 12.9 Glucose 106 74-106 mg/dL Blood Urea Nitrogen 16.0 7.0-18.0 mg/dL Creatinine 1.17 0.55-1.02 mg/dL Estimated GFR ( Perri >60 >=60 Estimated GFR (Non- Freya 53 >=60 BUN Creatinine Ratio 13.7 Calcium 8.8 8.5-10.1 mg/dL Bilirubin Total 0.3 0.2-1.0 mg/dL Aspartate Amino Transferase 17 15-37 U/L Alanine Aminotransferase 26 14-59 U/L Alkaline Phosphatase 88 46-116 U/L Total Protein 7.7 6.4-8.2 g/dL Albumin Level 4.1 3.4-5.0 g/dL Globulin 3.6 Albumin Globulin Ratio 1.1 Performing Lab: see note ML - [facility] LB CA echo doppler complete Reviewed date:04/20/2024 06:35:09 PM Interpretation: Performing Lab: Notes/Report: Source Facility: [facility] [place] [address] [place] [address] Cardiology Report Signed Patient: VERONICA ROSS MR#: [id number] : 1990 Acct:[id number] Age/Sex: 33 / F ADM Date: 04/20/24 Loc: CARD Attending Dr: Donnell Brooke M.D. Ordering Physician: Donnell Brooke M.D. Date of Service: 04/20/24 Procedure(s): CA echo doppler complete Accession Number(s): [id number] cc: Donnell Brooke M.D. Patient Name: VERONICA ROSS MR#: [id number] : 1990 Exam Date: 04/20/2024 Ordering Doctor: DR Donnell Brooke . ECHOCARDIOGRAM REPORT PROCEDURE: CA ECHO DOPPLER COMPLETE INDICATIONS: Orthostatic hypertension, Hypertension, paresthesia COMPARISON: None. DESCRIPTION: COMPLETE ECHOCARDIOGRAM Real-time transthoracic echocardiography with 2D, M-mode, spectral and color flow Doppler performed. QUALITY: Technical quality was good. LEFT VENTRICLE: Normal chamber size. Mild concentric left ventricular hypertrophy. LV EF: Global left ventricular systolic function is normal. Calculated left ventricular ejection fraction is 57%. No significant wall motion abnormalities DIASTOLIC: Normal diastolic function. ATRIAL SEPTUM: Inadequately seen LEFT ATRIUM: Normal chamber size. RIGHT ATRIUM: Normal chamber size RIGHT VENTRICLE: Normal chamber size. Normal right ventricular systolic function. TRICUSPID VALVE: Normal mobility and thickness. Trivial regurgitation. Mildly elevated right ventricular systolic pressure; RVSP 38mmHg MITRAL VALVE: Normal mobility and thickness. No evidence of mitral valve stenosis. There is no mitral annular calcification. Mild mitral regurgitation. AORTIC VALVE: Normal trileaflet appearance. No visible sclerosis. Normal leaflet mobility. No evidence of aortic valve stenosis. Trivial aortic regurgitation. AORTIC ROOT: Normal diameter and appearance. PULMONIC VALVE: Normal thickness and mobility. No stenosis. Trivial regurgitation. PERICARDIUM: No evidence of pericardial effusion. IVC: Collapses with inspirations. Normal size. CONCLUSION: 1. Global left ventricular systolic function is normal; visually estimated ejection fraction is 55 to 60% 2. Normal right ventricular size and systolic function 3. Normal diastolic function 4. Mild left ventricular hypertrophy 5. Mildly elevated right ventricular systolic pressure; RVSP 38 mmHg 6. Mild mitral regurgitation Adult Echocardiography Procedure Report Left Ventricle LVEDD (3.7 - 5.6 cm): 5.13 cm LVESD (2.2 - 4.0 cm): 3.13 cm LVIVS thickness (0.6 - 1.2 cm): 1.08 cm LVPW thickness (0.5 - 1.0 cm): 1.12 cm e': 0.16 m/s E - e': 5.12 LVOT Max Gradient: 2.54 mm[Hg] LVOT Area (cm2): 0.80 m/s Peak Velocity (LVOT): 0.80 m/s Mean Velocity (LVOT): 0.52 m/s LVOT Diameter 2.07 cm Left Ventricular Ejection Fraction: 57.07 % Left Atrium LA Volume Index (2D A2C): 26.39 ml/m2 Left Atrium Systolic Dimension: 3.84 cm Mitral Valve MV E to A Ratio: 1.96 Mitral Valve A-Wave Peak Velocity: 0.43 m/s Mitral Valve E-Wave Peak Velocity: 0.84 m/s Right Ventricle RV Internal Diastolic Dimension: 3.27 cm Aorta AO Root Diam: 3.05 cm Ascending Ao Diam: 2.46 cm Aortic Valve AoV Area (Peak Luís): 2.95 cm2, 2.95 cm2 AoV Area (VTI): 2.56 cm2, 2.56 cm2 Peak Velocity(Antegrade Flow): 0.91 m/s Peak Gradient(Antegrade Flow): 3.32 mm[Hg] Mean Velocity(Antegrade Flow): 0.65 m/s Mean Gradient(Antegrade Flow): 1.91 mm[Hg] Velocity Time Integral: 21.58 cm Tricuspid Valve Peak Velocity (Regurgitant Flow): 2.40 m/s, 2.98 m/s Pulmonic Valve Mean Gradient: 2.51 mm[Hg], 1.96 mm[Hg] Mean Velocity: 0.74 m/s, 0.65 m/s Peak Velocity: 1.01 m/s Peak Gradient: 4.74 mm[Hg], 3.47 mm[Hg] Right Atrium Right Atrium Systolic Pressure: 35.91 ml, 35.91 ml Dictated by: Gabriel Leong M.D. on 04/20/2024 at 14:08 Approved by: Gabriel Leong M.D. on 04/20/2024 at 14:12 Dictated By: Gabriel Leong M.D. Signed By: 04/20/24 1413 DD/ 141 TD/TT: Family Law Specialist: [place] [address] Cardiology Report Signed Patient: ZAKIA ROSS MR#: [id number] : 1990 Acct:[id number] Age/Sex: 33 / F ADM Date: 04/20/24 Loc: CARD Attending Dr: Leslie Brooke M.D. Ordering Physician: Donnell Brooke M.D. Date of Service: 04/20/24 Procedure(s): CA ech o doppler complete Accession Number(s): [id number] cc: Donnell Brooke M.D. Patient Name: VERONICA ROSS MR#: [id number] : 1990 Exam Date: 04/20/2024 Ordering Doctor: DR Donnell Brooke . ECHOCARDIOGRAM REPORT PROCEDURE: CA ECHO DOPPLER COMPLETE INDICATIONS: Orthost atic hypertension, Hypertension, paresthesia COMPARISON: None. DESCRIPTION: COMPLET E ECHOCARDIOGRAM Real-time transthoracic echocardiography wit h 2D, M-mode, spectral and color flow Doppler performed. QUALITY: Technical quality was good. LEFT VENTRICLE: Norm al chamber size. Mild concentric left ventricular hypertrophy. LV EF: Global left ventricular systolic function is normal. Calculated left ventricular ejection fraction is 57%. No significant wall motion abnormalities DIASTOLIC: Normal diastolic function. ATRIAL SEPTUM: Inadequately seen LEFT ATRIUM: Normal chamber size. RIGHT ATRIUM: Normal chamber size RIGHT VENTRICLE: Nor mal chamber size. Normal right ventricular systolic function. TRICUSPID VALVE: Nor mal mobility and thickness. Trivial regurgitation. Mildly elevated righ t ventricular systolic pressure; RVSP 38mmHg MITRAL VALVE: Normal mobility and thickness. No evidence of mitral valve stenosis. There is n o mitral annular calcification. Mild mitral regurgitation. AORTIC VALVE: Carisa l trileaflet appearance. No visible sclerosis. Normal leaflet mobility. No evidence of aortic valve stenosis. Trivial aortic regurgitation. AORTIC ROOT: Normal diameter and appearance. PULMONIC VALVE: Norm al thickness and mobility. No stenosis. Trivial regurgitation. PERICARDIUM: No evid ence of pericardial effusion. IVC: Collapses with inspirations. Normal size. CONCLUSION: 1. Global left ventricular systolic function is normal; visually estimated ejection fraction is 55 to 60% 2. Normal right ventricular size and systolic function 3. Normal diastolic function 4. Mild left ventric ular hypertrophy 5. Mildly elevated r ight ventricular systolic pressure; RVSP 38 mmHg 6. Mild mitral regurgitation Adult Echocardiograp hy Procedure Report Left Ventricle LVEDD (3.7 - 5.6 cm) : 5.13 cm LVESD (2.2 - 4.0 cm) : 3.13 cm LVIVS thickness (0.6 - 1.2 cm): 1.08 cm LVPW thickness (0.5 - 1.0 cm): 1.12 cm e': 0.16 m/s E - e': 5.12 LVOT Max Gradient: 2 .54 mm[Hg] LVOT Area (cm2): 0.8 0 m/s Peak Velocity (LVOT) : 0.80 m/s Mean Velocity (LVOT) : 0.52 m/s LVOT Diameter 2.07 cm Left Ventricular Ejection Fraction: 57.07 % Left Atrium LA Volume Index (2D A2C): 26.39 ml/m2 Left Atrium Systolic Dimension: 3.84 cm Mitral Valve MV E to A Ratio: 1.96 Mitral Valve A-Wave Peak Velocity: 0.43 m/s Mitral Valve E-Wave Peak Velocity: 0.84 m/s Right Ventricle RV Internal Diastoli c Dimension: 3.27 cm Aorta AO Root Diam: 3.05 cm Ascending Ao Diam: 2 .46 cm Aortic Valve AoV Area (Peak Luís): 2.95 cm2, 2.95 cm2 AoV Area (VTI): 2.56 cm2, 2.56 cm2 Peak Velocity(Antegr praveen Flow): 0.91 m/s Peak Gradient(Antegr praveen Flow): 3.32 mm[Hg] Mean Velocity(Antegr praveen Flow): 0.65 m/s Mean Gradient(Antegr praveen Flow): 1.91 mm[Hg] Velocity Time Integr al: 21.58 cm Tricuspid Valve Peak Velocity (Regurgitant Flow): 2.40 m/s, 2.98 m/s Pulmonic Valve Mean Gradient: 2.51 mm[Hg], 1.96 mm[Hg] Mean Velocity: 0.74 m/s, 0.65 m/s Peak Velocity: 1.01 m/s Peak Gradient: 4.74 mm[Hg], 3.47 mm[Hg] Right Atrium Right Atrium Systoli c Pressure: 35.91 ml, 35.91 ml Dictated by: Gabriel Leong M.D. on 04/20/2024 at 14:08 Approved by: Gabriel Leong M.D. on 04/20/2024 at 14:12 Dictated By: Gabriel Leong M.D. Signed By: 04/20/24 1413 DD/ 1412 TD/TT: Family Law Specialist: XR ankle RT min 3V Reviewed date:05/22/2024 01:05:48 PM Interpretation: Performing Lab: Notes/Report: Source Facility: [place] [address] XRay Report Signed Patient: VERONICA ROSS MR#: [id number] : 1990 Acct:[id number] Age/Sex: 33 / F ADM Date: 05/21/24 Loc: RAD Attending Dr: Donnell Brooke M.D. Ordering Physician: Donnell Brooke M.D. Date of Service: 05/21/24 Procedure(s): XR ankle RT min 3V Accession Number(s): [id number] cc: Donnell Brooke M.D. [place] [address] Patient Name: VERONICA ROSS MRN: [id number] date: 1990 Sex: F Assigned Patient Location: [facility] Current Patient Location: Accession/Order Number: [id number] Exam Date: 05/21/2024 12:11 Report Date: 05/22/2024 10:00 At the request of: DONNELL BROOKE Procedure: XR ankle RT min 3V PROCEDURE: XR ankle RT min 3V HISTORY: Right ankle pain ; lateral ankle pain since falling one and half weeks ago COMPARISON: None. FINDINGS: BONES:Fracture and fragment from the tip of the lateral malleolus, 4 mm gap at the lateral margin. Intact, uniform spacing of the tibiotalar joint.. SOFT TISSUES:Soft tissue swelling surrounding the ankle. EFFUSION:None visible. OTHER: Negative. XR/XR ankle RT min 3V IMPRESSION: 1. Acute to subacute, mildly displaced fracture involving the tip of the lateral malleolus. Electronically authenticated by: PAULINO BARROS Date: 05/22/2024 10:00 Dictated By: Paulino Barros M.D. Signed By: 05/22/24 1002 DD/ 1000 TD/TT: Family Law Specialist: [place] [address] XRay Report Signed Patient: ZAKIA ROSS MR#: [id number] : 1990 Acct:[id number] Age/Sex: 33 / F ADM Date: 05/21/24 Loc: [facility] Attending Dr: Leslie Brooke M.D. Ordering Physician: Donnell Brooke M.D. Date of Service: 05/21/24 Procedure(s): XR ank le RT min 3V Accession Number(s): [id number] cc: Donnell Brooke M.D. [place] [address] Patient Name: VERONICA ROSS MRN: [id number] date: 1990 Sex: F Assigned Patient Location: [facility] Current Patient Location: Accession/Order Numb er: [id number] Exam Date: 05/21/2024 12:11 Report Date: 05/22/2024 10:00 At the request of: DONNELL BROOKE Procedure: XR ankle RT min 3V PROCEDURE: XR ankle RT min 3V HISTORY: Right ankle pain ; lateral ankle pain since falling one and half weeks ago COMPARISON: None. FINDINGS: BONES:Fracture and fragment from the tip of the lateral malleolus, 4 mm gap at the latera l margin. Intact, uniform spacing of the tibiotalar joint.. SOFT TISSUES:Soft ti ssue swelling surrounding the ankle. EFFUSION:None visible. OTHER: Negative. X R/XR ankle RT min 3V IMPRESSION: 1. Acute to subacute , mildly displaced fracture involving the tip of the lateral malleolus. Electronically authenticated by: PAULINO BARROS Date: 05/22/2024 10:00 Dictated By: Paulino Barros M.D. Signed By: 05/22/24 1002 DD/ 1000 TD/TT: Family Law Specialist: MR sathya SANDOVAL wo con Reviewed date:06/04/2024 07:25:30 PM Interpretation: Performing Lab: Notes/Report: Source Facility: [place] [address] [facility] [place] [id number] Magnetic Resonance Report Signed Patient: VERONICA ROSS MR#: [id number] : 1990 Acct:[id number] Age/Sex: 33 / F ADM Date: 06/03/24 Loc: MRI Attending Dr: Donnell rBooke M.D. Ordering Physician: Donnell Brooke M.D. Date of Service: 06/03/24 Procedure(s): MR ankle RT wo con Accession Number(s): [id number] cc: Donnell Brooke M.D. [place] [address] Patient Name: VERONICA ROSS MRN: [id number] date: 1990 Sex: F Assigned Patient Location: MRI Current Patient Location: MRI Accession/Order Number: [id number] Exam Date: 06/03/2024 06:58 Report Date: 06/04/2024 16:11 At the request of: DONNELL BROOKE Procedure: MR ankle RT wo con EXAM: MR ankle RT wo con HISTORY: M25.571 right ankle pain COMPARISON: 05/21/2024 TECHNIQUE: MRI images obtained with multiple sequences. MRI of the right ankle without contrast. Sequences obtained by standard department protocol. FINDINGS: No significant degeneration of the ankle joint or subtalar joint. Achilles tendon is intact. No significant degeneration of the mid foot. Extensor, flexor and peroneal tendons are intact. Mild fluid of the peroneal tendon sheath, suggesting tenosynovitis. Anterior and posterior syndesmotic ligaments are intact. Anterior talofibular, posterior talofibular and calcaneofibular ligaments are intact. Deltoid ligament fibers are intact. No acute fractures. MR/MR ankle RT wo con IMPRESSION: 1. Mild fluid of the peroneal tendon sheath, suggesting tenosynovitis. 2. Extensor, flexor and peroneal tendons are intact. 3. No acute ligamentous abnormality. 4. No acute fractures. No significant joint degeneration. Electronically authenticated by: MAMADOU ENCISO Date: 06/04/2024 16:11 Dictated By: Mamadou Enciso M.D. Signed By: 06/04/241613 DD/ 1611 TD/TT: Family Law Specialist: [place] [address] Magnetic Resonance Report Signed Patient: ZAKIA ROSS MR#: [id number] : 1990 Acct:[id number] Age/Sex: 33 / F ADM Date: 06/03/24 Loc: MRI Attending Dr: Leslie Brooke M.D. Ordering Physician: Donnell Brooke M.D. Date of Service: 06/03/24 Procedure(s): ank le RT wo con Accession Number(s): [id number] cc: Donnell Brooke M.D. [place] [address] Patient Name: VERONICA ROSS MRN: [id number] date: 1990 Sex: F Assigned Patient Location: MRI Current Patient Location: MRI Accession/Order Numb er: [id number] Exam Date: 06:58 Report Date: 06/04/2024 16:11 At the request of: DONNELL BROOKE Procedure: MR ankle RT wo con EXAM: MR ankle RT wo con HISTORY: M25.571 rig ht ankle pain COMPARISON: 05/21/2024 TECHNIQUE: MRI image s obtained with multiple sequences. MRI of the right ankle without contrast. Sequences obtained by standard department protocol. FINDINGS: No significant degeneration of the ankle joint or subtalar joint. Achilles tendon is intact. No significant degeneration of the mid foot. Extensor, flexor and peroneal tendons are intact. Mild fluid of the peroneal tendon sheath, suggesting tenosynovitis. Anterior and posteri or syndesmotic ligaments are intact. Anterior talofibular, posterior talofibula r and calcaneofibular ligaments are intact. Deltoid ligament fib ers are intact. No acute fractures. M R/MR ankle RT wo con IMPRESSION: 1. Mild fluid of the peroneal tendon sheath, suggesting tenosynovitis. 2. Extensor, flexor and peroneal tendons are intact. 3. No acute ligament ous abnormality. 4. No acute fracture s. No significant joint degeneration. Electronically authenticated by: MAMADOU ENCISO Date: 06/04/2024 16:11 Dictated By: Autumn Enciso M.D. Signed By: 06/04/241613 DD/ 10 TD/TT: Family Law Specialist: XR ANKLE RT 2V Reviewed date:06/15/2024 08:22:05 PM Interpretation: Performing Lab: Notes/Report: Source Facility: [facility] [place] [address] XRay Report Signed Patient: VERONICA ROSS MR#: [id number] : 1990 Acct:[id number] Age/Sex: 33 / F ADM Date: 06/11/24 Loc: RAD Attending Dr: Donnell Brooke M.D. Ordering Physician: Donnell Brooke M.D. Date of Service: 06/11/24 Procedure(s): XR ankle RT 2V Accession Number(s): [id number] cc: Donnell Brooke M.D. [place] [address] Patient Name: VERONICA ROSS MRN: [id number] date: 1990 Sex: F Assigned Patient Location: [facility] Current Patient Location: Accession/Order Number: [id number] Exam Date: 06/11/2024 18:30 Report Date: 06/15/2024 07:50 At the request of: DONNELL BROOKE Procedure: XR ankle RT 2V PROCEDURE: XR ankle RT 2V COMPARISON: 05/21/2024 HISTORY: Ankle pain, right, M25.571 FINDINGS: BONES:Stable transverse fracture inferior lateral malleolus with 4 mm of distraction laterally. No significant bone formation or bony bridging. No new fracture or dislocation. Minimal enthesopathic spurring plantar calcaneus SOFT TISSUES:Soft tissue swelling EFFUSION:None visible. OTHER: Negative. XR/XR ankle RT 2V IMPRESSION: Stable lateral malleolus fracture with no bony bridging Electronically authenticated by: THOM ANGELA Date: 06/15/2024 07:50 Dictated By: Thom Angela M.D. Signed By: 06/15/24 075 DD/ 9 TD/TT: Family Law Specialist: [place] [address] XRay Report Signed Patient: ZAKIA ROSS MR#: [id number] : 1990 Acct:[id number] Age/Sex: 33 / F ADM Date: 06/11/24 Loc: RAD Attending Dr: Leslie Brooke M.D. Ordering Physician: Donnell Brooke M.D. Date of Service: 06/11/24 Procedure(s): XR ank le RT 2V Accession Number(s): [id number] cc: Donnell Brooke M.D. [place] [address] Patient Name: VERONICA ROSS MRN: [id number] date: 1990 Sex: F Assigned Patient Location: [facility] Current Patient Location: Accession/Order Numb er: [id number] Exam Date: 18:30 Report Date: 06/15/2024 07:50 At the request of: DONNELL BROOKE Procedure: XR ankle RT 2V PROCEDURE: XR ankle RT 2V COMPARISON: 05/21/2024 HISTORY: Ankle pain, right, M25.571 FINDINGS: BONES:Stable transve rse fracture inferior lateral malleolus with 4 mm of distraction laterall y. No significant bone formation or bony bridging. No new fracture or dislocat ion. Minimal enthesopathic spurring plantar calcaneus SOFT TISSUES:Soft ti ssue swelling EFFUSION:None visible. OTHER: Negative. X R/XR ankle RT 2V IMPRESSION: Stable lateral malle olus fracture with no bony bridging Electronically authenticated by: THOM ANGELA Date: 06/15/2024 07:50 Dictated By: Medhat Angela M.D. Signed By: 06/15/24751 DD/ 9 TD/TT: Family Law Specialist: XR ankle RT min 3V Reviewed date:06/30/2024 06:06:43 PM Interpretation: Performing Lab: Notes/Report: Source Facility: [facility]-[address] [place] [address] [facility] [place] [id number] XRay Report Signed Patient: VERONICA ROSS MR#: [id number] : 1990 Acct:[id number] Age/Sex: 33 / F ADM Date: 06/29/24 Loc: EC Attending Dr: Paulino Fuentes M.D. Ordering Physician: Paulino Fuentes M.D. Date of Service: 06/29/24 Procedure(s): XR ankle RT min 3V Accession Number(s): [id number] cc: Paulino Fuentes M.D.; Donnell Brooke M.D. The [place] [address] Patient Name: VERONICA ROSS MRN: [id number] date: 1990 Sex: F Assigned Patient Location: Current Patient Location: Accession/Order Number: [id number] Exam Date: 06/29/2024 12:45 Report Date: 06/30/2024 15:10 At the request of: PAULINO FUENTES Procedure: XR ankle RT min 3V PROCEDURE: XR ankle RT min 3V COMPARISON: 05/21/2024 HISTORY: RIGHT ANKLE PAIN FINDINGS: BONES:Stable transverse fracture tip of the lateral malleolus with 3 mm of distraction. No significant bone formation or bony bridging. No new fracture or dislocation. Degenerative changes with marginal osteophyte formation SOFT TISSUES:Negative. No visible soft tissue swelling. EFFUSION:None visible. OTHER: Negative. XR/XR ankle RT min 3V IMPRESSION: Stable fracture distal tip of the lateral malleolus Electronically authenticated by: THOM ANGELA Date: 06/30/2024 15:10 Dictated By: Thom Angela M.D. Signed By: 06/30/24 1513 DD/ 151 TD/TT: Family Law Specialist: [place] [address] XRay Report Signed Patient: ZAKIA ROSS MR#: [id number] : 1990 Acct:[id number] Age/Sex: 33 / F ADM Date: 06/29/24 Loc: EC Attending Dr: Paulino Fuentes M.D. Ordering Physician: Paulino Fuentes M.D. Date of Service: 06/29/24 Procedure(s): XR ank le RT min 3V Accession Number(s): [id number] cc: Paulino Fuentes M.D.; Donnell Brooke M.D. [facility] [place] [address] Patient Name: VERONICA ROSS MRN: [id number] date: 1990 Sex: F Assigned Patient Location: Current Patient Location: Accession/Order Numb er: [id number] Exam Date: 12:45 Report Date: 06/30/2024 15:10 At the request of: PAULINO FUENTES Procedure: XR ankle RT min 3V PROCEDURE: XR ankle RT min 3V COMPARISON: 05/21/2024 HISTORY: RIGHT ANKLE PAIN FINDINGS: BONES:Stable transve rse fracture tip of the lateral malleolus with 3 mm of distraction. No significant bone formation or bony bridging. No new fracture or dislocation. Degenerative changes with marginal osteophyte formation SOFT TISSUES:Negativ e. No visible soft tissue swelling. EFFUSION:None visible. OTHER: Negative. X R/XR ankle RT min 3V IMPRESSION: Stable fracture dist al tip of the lateral malleolus Electronically authenticated by: THOM ANGELA Date: 06/30/2024 15:10 Dictated By: Medhat Angela M.D. Signed By: 06/30/24 151 DD/ 09 TD/TT: Family Law Specialist: US biopsy thyroid Reviewed date:08/18/2024 10:04:58 AM Interpretation: Performing Lab: Notes/Report: Source Facility: [place] [address] [place] [address] Ultrasound Report Signed with Melvin Patient: VERONICA ROSS MR#: [id number] : 1990 Acct:[id number] Age/Sex: 33 / F ADM Date: 08/03/24 Loc: US Attending Dr: Donnell Brooke M.D. Ordering Physician: Donnell Brooke M.D. Date of Service: 08/03/24 Procedure(s): US biopsy thyroid Accession Number(s): [id number] cc: Donnell Brooke M.D. ADDENDUM The [address] [address] Patient Name: VERONICA ROSS MRN: [id number] date: 1990 Sex: F Assigned Patient Location: US Current Patient Location: US Accession/Order Number: [id number] Exam Date: 08/03/2024 09:51 Report Date: 08/18/2024 01:17 At the request of: DONNELL BROOKE Procedure: US biopsy thyroid Begin Addendum #1 COLLECTED DATE: 08/03/2024 Final Diagnosis Report for [facility] [place] Pathological Diagnosis: Right thyroid nodule, fine needle aspiration: Suspicious for follicular neoplasm. 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 Balfour Category IV. 08/06/[address] Brooke. Verified with Mireille that report was present in office. Original Report EXAMINATION: US biopsy thyroid HISTORY: Right Thyroid Nodule COMPARISON: Ultrasound thyroid 07/02/2024 TECHNIQUE: After obtaining informed consent, ultrasound-guided fine needle aspiration was performed in the usual sterile manner. FINDINGS: IMAGING: Ultrasound. BIOPSY NEEDLE: 25-gauge; 3 separate passes. LOCATION: Right lobe 1. 0 cm TR 4 nodule. SPECIMEN TYPE: Cellular tissue. LOCAL ANESTHETIC: Buffered Xylocaine. COMPLICATIONS: None. LABORATORY: Prepared slide smears and washings for cell block evaluation. OTHER: Negative. PATHOLOGY: Pending. An addendum will be added when results are available. Addendum Dictated By: Paulino Barros M.D. Addendum Signed By: 08/18/24 0 120 Addendum Cosigned By: DD/ TD/TT: / ADDENDUM US/US biopsy thyroid IMPRESSION: 1. Uneventful ultrasound guided fine needle aspiration (FNA). 2. Pathology results are pending. Electronically authenticated by: PAULINO BARROS Date: 08/18/2024 01:17 Addendum Dictated By: Paulino Barros M.D. Addendum Signed By: 08/18/24 0 120 Addendum Cosigned By: DD/ TD/TT: / [address] [address] Patient Name: VERONICA ROSS MRN: [facility]:[id number] date: 1990 Sex: F Assigned Patient Location: US Current Patient Location: Accession/Order Number: [id number] Exam Date: 08/03/2024 09:51 Report Date: 08/03/2024 14:35 At the request of: DONNELL BROOKE Procedure: US biopsy thyroid EXAMINATION: US biopsy thyroid HISTORY: Right Thyroid Nodule COMPARISON: Ultrasound thyroid 07/02/2024 TECHNIQUE: After obtaining informed consent, ultrasound-guided fine needle aspiration was performed in the usual sterile manner. FINDINGS: IMAGING: Ultrasound. BIOPSY NEEDLE: 25-gauge; 3 separate passes. LOCATION: Right lobe 1.0 cm TR 4 nodule. SPECIMEN TYPE: Cellular tissue. LOCAL ANESTHETIC: Buffered Xylocaine. COMPLICATIONS: None. LABORATORY: Prepared slide smears and washings for cell block evaluation. OTHER: Negative. PATHOLOGY: Pending. An addendum will be added when results are available. US/US biopsy thyroid IMPRESSION: 1. Uneventful ultrasound guided fine needle aspiration (FNA). 2. Pathology results are pending. Electronically authenticated by: PAULINO BARROS Date: 08/03/2024 14:35 Dictated By: Paulino Barros M.D. Signed By: 08/03/24 1438 DD/ 1435 TD/TT: Family Law Specialist: The [address] [address] Ultrasound Report Signed with Addenda Patient: ZAKIA ROSS MR#: [id number] : 1990 Acct:[id number] Age/Sex: 33 / F ADM Date: 08/03/24 Loc: US Attending Dr: Leslie Brooke M.D. Ordering Physician: Donnell Brooke M.D. Date of Service: 08/03/24 Procedure(s): US bio psy thyroid Accession Number(s): [id number] cc: Donnell Brooke M.D. ADDENDUM The [address] [address] Patient Name: VERONICA ROSS MRN: [id number] date: 1990 Sex: F Assigned Patient Location: US Current Patient Location: US Accession/Order Numb er: [id number] Exam Date: 09:51 Report Date: 08/18/2024 01:17 At the request of: DONNELL BROOKE Procedure: US biopsy thyroid Begin Addendum # 1 COLLECTED DATE: 08/03/2024 Final Diagnosis Report for [facility] [place] Pathological Diagnosis: Right thyroid nodule , fine needle aspiration: Suspicious for follicular neoplasm. 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 [place] Category IV. 08/06/[address] Brooke. Verified with Mireille that report was present in office. Original Report EXAMINATION: US biop sy thyroid HISTORY: Right Thyro id Nodule COMPARISON: Ultrasou nd thyroid 07/02/2024 TECHNIQUE: After obtaining informed consent, ultrasound-guided fine needle aspiration was perfo rmed in the usual sterile manner. FINDINGS: IMAGING: Ultrasound. BIOPSY NEEDLE: 25-ga uge; 3 separate passes. LOCATION: Right lobe 1. 0 cm TR 4 nodule. SPECIMEN TYPE: Cellu lar tissue. LOCAL ANESTHETIC: Buffered Xylocaine. COMPLICATIONS: None. LABORATORY: Prepared slide smears and washings for cell block evaluation. OTHER: Negative. PATHOLOGY: Pending. An addendum will be added when results are available. Addendum Dictated By : Paulino Barros M.D. Addendum Signed By: 08/18/24 0 120 Addendum Cosigned By: DD/ TD/TT: / ADDENDUM U S/US biopsy thyroid IMPRESSION: 1. Uneventful ultras ound guided fine needle aspiration (FNA). 2. Pathology results are pending. Electronically authenticated by: PAULINO BARROS Date: 08/18/2024 01:17 Addendum Dictated By : Paulino Barros M.D. Addendum Signed By: 08/18/24 0 120 Addendum Cosigned By: DD/ TD/TT: / [address] [address] Patient Name: VERONICA ROSS MRN: [id number] date: 1990 Sex: F Assigned Patient Location: US Current Patient Location: Accession/Order Numb er: [id number] Exam Date: 09:51 Report Date: 08/03/2024 14:35 At the request of: DONNELL BROOKE Procedure: US biopsy thyroid EXAMINATION: US biop sy thyroid HISTORY: Right Thyro id Nodule COMPARISON: Ultrasou nd thyroid 07/02/2024 TECHNIQUE: After obtaining informed consent, ultrasound-guided fine needle aspiration was perfo rmed in the usual sterile manner. FINDINGS: IMAGING: Ultrasound. BIOPSY NEEDLE: 25-ga uge; 3 separate passes. LOCATION: Right lobe 1.0 cm TR 4 nodule. SPECIMEN TYPE: Cellu lar tissue. LOCAL ANESTHETIC: Buffered Xylocaine. COMPLICATIONS: None. LABORATORY: Prepared slide smears and washings for cell block evaluation. OTHER: Negative. PATHOLOGY: Pending. An addendum will be added when results are available. U S/US biopsy thyroid IMPRESSION: 1. Uneventful ultras ound guided fine needle aspiration (FNA). 2. Pathology results are pending. Electronically authenticated by: PAULINO BARROS Date: 08/03/2024 14:35 Dictated By: Paulino Barros M.D. Signed By: 08/03/24 1438 DD/ 34 TD/TT: Family Law Specialist: CBC AUTO DIFF Reviewed date:09/13/2024 02:02:33 PM Interpretation: Performing Lab: Notes/Report: [facility] , White Blood Count 11.7 4.0-11.0 10 3/uL Red Blood Count 5.22 4.20-5.40 10 6/uL Hemoglobin 13.5 12.0-16.0 g/dL Hematocrit 41.9 36.0-48.0 % Mean Corpuscular Volume 80.3 81.0-99.0 fL Mean Corpuscular Hemoglobin 25.9 26.7-34.0 pg Mean Corpuscular HGB Conc 32.2 29.9-35.2 g/dL Red Cell Distribution Width 14.4 11.0-15.0 % Platelet Count 331 150-450 10 3/uL Mean Platelet Volume 8.9 9.5-13.5 fL Neutrophils Percent Auto 91.7 43.0-75.0 % Lymphocytes Percent Auto 3.8 20.5-60.0 % Monocytes Percent Auto 3.3 1.7-12.0 % Eosinophils Percent Auto 0.5 0.9-7.0 % Basophils Percent Auto 0.3 0.2-2.0 % Immature Granulocytes Pct Auto 0.4 0.0-0.5 % Neutrophils Absolute Auto 10.7 1.4-6.5 10 3/uL Lymphocytes Absolute Auto 0.4 1.2-3.8 10 3/uL Monocytes Absolute Auto 0.4 0.3-0.8 10 3/uL Eosinophils Absolute Auto 0.1 0.0-0.7 10 3/uL Basophils Absolute Auto 0.0 0.0-0.1 10 3/uL Immature Granulocytes Abs Auto 0.05 0.00-0.03 10 3/uL Performing Lab: see note ML - [facility] LB LIPASE Reviewed date:09/13/2024 02:02:33 PM Interpretation: Performing Lab: Notes/Report: [facility] , Lipase 55.0 16.0-77.0 U/L Performing Lab: see note ML - [facility] LB PROF 14(COMP METB) Reviewed date:09/13/2024 02:02:33 PM Interpretation: Performing Lab: Notes/Report: [facility] , Sodium 138 136-145 mmol/L Potassium 2.8 3.5-5.1 mmol/L RESULTS CALLED TO LSIA Chen RN @BY [place] at 0151 Chloride 100 98-107 mmol/L Carbon Dioxide 25.7 21.0-32.0 mmol/L Anion Gap 15.1 Glucose 183 74-106 mg/dL Blood Urea Nitrogen 16.0 7.0-18.0 mg/dL Creatinine 1.43 0.55-1.02 mg/dL Estimated GFR ( Perri 51 >=60 mL/min/1.73m 2 Estimated GFR (Non- Freya 42 >=60 mL/min/1.73m 2 BUN Creatinine Ratio 11.2 Calcium 9.2 8.5-10.1 mg/dL Bilirubin Total 0.4 0.2-1.0 mg/dL Aspartate Amino Transferase 16 15-37 U/L Alanine Aminotransferase 27 14-59 U/L Alkaline Phosphatase 85 46-116 U/L Total Protein 8.0 6.4-8.2 g/dL Albumin Level 3.4 3.4-5.0 g/dL Globulin 4.6 Albumin Globulin Ratio 0.7 Performing Lab: see note ML - [facility] FREE T3 Reviewed date:10/25/2024 12:48:38 PM Interpretation: Performing Lab: Notes/Report: [facility] , Free T3 2.66 2.18-3.98 pg/mL Performing Lab: see note ML - [facility] PROF 14(COMP METB) Reviewed date:10/25/2024 12:48:38 PM Interpretation: Performing Lab: Notes/Report: [facility] , Sodium 141 136-145 mmol/L Potassium 3.8 3.5-5.1 mmol/L Chloride 102 98-107 mmol/L Carbon Dioxide 29.9 21.0-32.0 mmol/L Anion Gap 12.9 Glucose 96 74-106 mg/dL Blood Urea Nitrogen 14.0 7.0-18.0 mg/dL Creatinine 1.24 0.55-1.02 mg/dL Estimated GFR ( Perri 60 >=60 mL/min/1.73m 2 Estimated GFR (Non- Freya 50 >=60 mL/min/1.73m 2 BUN Creatinine Ratio 11.3 Calcium 9.0 8.5-10.1 mg/dL Bilirubin Total 0.4 0.2-1.0 mg/dL Aspartate Amino Transferase 16 15-37 U/L Alanine Aminotransferase 22 14-59 U/L Alkaline Phosphatase 76 46-116 U/L Total Protein 7.1 6.4-8.2 g/dL Albumin Level 3.8 3.4-5.0 g/dL Globulin 3.3 Albumin Globulin Ratio 1.2 Performing Lab: see note ML - [facility] LB T4 Reviewed date:10/25/2024 12:48:38 PM Interpretation: Performing Lab: Notes/Report: [facility] , T4 Thyroxine 9.10 4.80-13.90 ug/dL Performing Lab: see note ML - [facility] LB TSH Reviewed date:10/25/2024 12:48:38 PM Interpretation: Performing Lab: Notes/Report: [facility] , Thyroid Stimulating Hormone 5.061 0.358-3.740 uIU/mL Performing Lab: see note ML - [facility] LB VITAMIN D 25 [place] Reviewed date:10/25/2024 12:48:38 PM Interpretation: Performing Lab: Notes/Report: [facility] , Vitamin D 15.1 <20 ng/mL Vit D deficient 20-<30 ng/mL Vit D insufficient 30-100 ng/mL Vit D sufficient >100 ng/mL Potential Toxicity Performing Lab: see note - [facility] LB FREE T3 Reviewed date:11/30/2024 07:14:31 PM Interpretation: Performing Lab: Notes/Report: [facility] , Free T3 2.39 2.18-3.98 pg/mL Performing Lab: see note - [facility] LB PROF 14(COMP METB) Reviewed date:11/30/2024 07:14:31 PM Interpretation: Performing Lab: Notes/Report: [facility] , Sodium 142 136-145 mmol/L Potassium 3.7 3.5-5.1 mmol/L Chloride 104 98-107 mmol/L Carbon Dioxide 30.2 21.0-32.0 mmol/L Anion Gap 11.5 Glucose 108 74-106 mg/dL Blood Urea Nitrogen 16.0 7.0-18.0 mg/dL Creatinine 1.23 0.55-1.02 mg/dL Estimated GFR ( Perri >60 >=60 mL/min/1.73m 2 Estimated GFR (Non- Freya 50 >=60 mL/min/1.73m 2 BUN Creatinine Ratio 13.0 Calcium 8.6 8.5-10.1 mg/dL Bilirubin Total 0.3 0.2-1.0 mg/dL Aspartate Amino Transferase 16 15-37 U/L Alanine Aminotransferase 29 14-59 U/L Alkaline Phosphatase 80 46-116 U/L Total Protein 7.1 6.4-8.2 g/dL Albumin Level 3.6 3.4-5.0 g/dL Globulin 3.5 Albumin Globulin Ratio 1.0 Performing Lab: see note ML - [facility] LB T4 Reviewed date:11/30/2024 07:14:31 PM Interpretation: Performing Lab: Notes/Report: [facility] , T4 Thyroxine 11.90 4.80-13.90 ug/dL Performing Lab: see note - [facility] LB THYROGLOBULIN Reviewed date:12/07/2024 08:31:54 PM Interpretation: Performing Lab: Notes/Report: [facility] , Thyroglobulin (TG-ASHOK) 11 . ng/mL This test was developed and its performance characteristics determined by [facility]. It has not been cleared or approved by the Food and Drug Administration. Reference Range: Pubertal Children and Adults: <40 According to the National Academy [employer] Clinical [employer]ochemistry, the reference interval for Thyroglobulin (TG) should be related to euthyroid patients and not for patients who underwent thyroidectomy. TG reference intervals for these patients depend on the residual mass of the thyroid tissue left after surgery. Establishing a post-operative baseline is recommended. The assay quantitation limit is 2.0 ng/mL. Performed at: [facility] [address] [place] [id number] Receiving Room Clerk: Osmar Watkins MD, Phone: [phone] Performing Lab: see note [facility] LB TSH Reviewed date:11/30/2024 07:14:31 PM Interpretation: Performing Lab: Notes/Report: [facility] , Thyroid Stimulating Hormone 3.459 0.358-3.740 uIU/mL Performing Lab: see note ML - [facility] LB Triiodothyronine (T3) Reviewed date:12/01/2024 03:31:42 PM Interpretation: Performing Lab: Notes/Report: [facility] , Triiodothyronine (T3) 83 71-180 ng/dL Performed at: [address] [id number] Receiving Room Clerk: Cory De Leon PhD, Phone: [phone] Performing Lab: see note - [facility] LB MR knee RT wo con Reviewed date:12/28/2024 02:59:13 PM Interpretation: Performing Lab: Notes/Report: Source Facility: [address] [address] Magnetic Resonance Report Signed Patient: VERONICA ROSS MR#: [id number] : 1990 Acct:[id number] Age/Sex: 34 / F ADM Date: 12/28/24 Loc: MRI Attending Dr: Yvette MAHONEY Ordering Physician: Yvette Smith Date of Service: 12/28/24 Procedure(s): MR knee RT wo con Accession Number(s): [id number] cc: Donnell Brooke M.D.; Yvette Smith [place] [address] Patient Name: VERONICA ROSS MRN: [id number] date: 1990 Sex: F Assigned Patient Location: MRI Current Patient Location: MRI Accession/Order Number: [id number] Exam Date: 12/28/2024 11:58 Report Date: 12/28/2024 12:04 At the request of: YVETTE MAHONEY Procedure: MR knee RT wo con EXAMINATION: MRI OF THE RIGHT KNEE CLINICAL DATA: Right knee pain after fall 1 month ago. Leg weakness. COMPARISON: Right knee series 12/04/2024 TECHNIQUE: Multiecho, multiplanar imaging was performed with use of an extremity coil. No contrast was administered. FINDINGS: Joint:Moderate joint effusion. No significant bone marrow edema. Degenerative spurring with cystic changes in the region of the tibial spines. No acute fracture line is seen. Soft tissues: Anterior soft tissue swelling. No fluid collection. Quadriceps/Patellar tendon/retinaculum: Normal Muscles: Normal ACL:Normal PCL:Normal Medial Meniscus:Tear posterior horn. Lateral Meniscus:Normal MCL:Grade 1 sprain LCL complex: Normal MR/MR knee RT wo con IMPRESSION: MODERATE JOINT EFFUSION WITH DEGENERATIVE CHANGES, TEAR POSTERIOR HORN MEDIAL MENISCUS AND GRADE 1 SPRAIN MCL. NO FRACTURE IS SEEN. Impression dictated by: Willie Dong Jr., D.O. 12/28/2024 12:04 PM Dictation Location: [place] [address] Electronically authenticated by: [id number] Y Date: 12/28/2024 12:04 Dictated By: Willie Dong M.D. Signed By: 12/28/24 1207 DD/ 1204 TD/TT: Family Law Specialist: [place] [address] Magnetic Resonance Report Signed Patient: ZAKIA ROSS MR#: [id number] : 1990 Acct:[id number] Age/Sex: 34 / F ADM Date: 12/28/24 Loc: MRI Attending Dr: Elijah Mason Ordering Physician: Yvette Smith Date of Service: 12/28/24 Procedure(s): MR kne e RT wo con Accession Number(s): [id number] cc: Donnell Brooke M.D. ; Yvette Smith [place] [address] Patient Name: VERONICA ROSS MRN: [id number] date: 1990 Sex: F Assigned Patient Location: MRI Current Patient Location: MRI Accession/Order Numb er: [id number] Exam Date: 12/28/2024 11:58 Report Date: 12/28/2024 12:04 At the request of: YVETTE MAHONEY Procedure: MR knee R T wo con EXAMINATION: MRI OF THE RIGHT KNEE CLINICAL DATA: Right knee pain after fall 1 month ago. Leg weakness. COMPARISON: Right kn ee series 12/04/2024 TECHNIQUE: Multiecho , multiplanar imaging was performed with use of an extremity coil. No contrast was administered. FINDINGS: Joint:Moderate joint effusion. No significant bone marrow edema. Degenerative spurrin g with cystic changes in the region of the tibial spines. No acute fracture li ne is seen. Soft tissues: Anteri or soft tissue swelling. No fluid collection. Quadriceps/Patellar tendon/retinaculum: Normal Muscles: Normal ACL:Normal PCL:Normal Medial Meniscus:Tear posterior horn. Lateral Meniscus:Normal MCL:Grade 1 sprain LCL complex: Normal M R/MR knee RT wo con IMPRESSION: MODERATE JOINT EFFUS ION WITH DEGENERATIVE CHANGES, TEAR POSTERIOR HORN MEDIAL MENISCUS AND GRADE 1 SPRAIN MCL. NO FRACTURE IS SEEN. Impression dictated by: Willie Dong Jr., D.O. 12/28/2024 12:04 PM Dictation Location: [place] [address] Electronically authenticated by: [id number] Y Date: 12/28/2024 12:04 Dictated By: Willie Dong M.D. Signed By: 12/28/24 1207 DD/ 1204 TD/TT: Family Law Specialist: Reason For Referral Reason dry needling Diagnosis 1 Impingement syndrome of unspecified shoulder (M75.40) Referral Organization [facility] Referring Provider First Name Ramón Referring Provider Last Name [facility] Referring Provider Speciality Family Med icine Referred Provider [facility], Physical Therap y Referred Provider Specialty Physical Med icine and Rehabilitation Referral Priority Routine Diagnosis 1 Ankle pain, right (M 25.571) Referral Organization [facility] Referring Provider First Name Ramón Referring Provider Last Name Edwardo Referring Provider [facility] icine Referred Provider Paulino Fuentes Referred Provider Specialty Orthopedic S urgery Referral Priority Routine Reason Needs consult DAYANARA p lease! Pathology suspicious of malignancy. Diagnosis 1 Right thyroid nodule (E04.1) Referral Organization [facility] Referring Provider First Name Ramón Referring Provider Last Name Edwardo Referring Provider [facility] icine Referred Provider Emily Urena Referred Provider Specialty Otolaryngolo gy Referral Priority Routine Medications Medication SIG (Take, Route, Frequency, Duration) Notes Start Date End Date Status Cefdinir 300 MG 2 capsule Orally onc e a day for 10 days 01/18/2025 Active tiZANidine HCl 4 MG TAKE 2 TABLETS BY MOUTH EVERY DAY AT BEDTIME for 30 Active Carafate 1 GM 1 tablet on an empty stomach Orally before each meal for 30 days 09/19/2023 Active Potassium Chloride ER 20 MEQ TAKE 1 TABL ET BY MOUTH TWICE A DAY WITH FOOD for 90 Active Adipex-P 37.5 MG 1 tablet before breakfast Orally Once a day 01/19/2025 Active DULoxetine HCl 60 MG 1 capsule Orally On ce a day for 30 days 03/06/2024 Active Doxycycline Monohydrate 100 MG 1 capsule Orally bid for 10 days 01/18/2025 Active Triamterene-HCTZ 75-50 MG 1 tablet in th e morning Orally Once a day for 90 days Active Levothyroxine Sodium 50 MCG 1 tablet in the morning on an empty stomach Orally Once a day for 30 days 12/30/2024 Active Lasix 20 MG 1 tablet Orally Once a day for 3 days 04/15/2024 Active Air Cast Size to fit Wear 18/03. remove for showers Dx: chip fracture of ankle 05/22/2024 Active Pantoprazole Sodium 40 MG TAKE 1 TABLET BY MOUTH TWICE A DAY FOR 90 DAYS for 90 Active Acebutolol HCl 200 mg TAKE 1 CAPSULE ora l bid for 90 days Active Oxaprozin 600 mg TAKE 1 TABLET DAILY Active hydroCHLOROthiazide 25 MG 1 tablet in th e morning Orally Once a day for 30 days 12/07/2024 Active Vitamin D 50 MCG (2000 UT) 1 tablet Oral ly Once a day for 90 day(s) 10/26/2024 Active Iron (Ferrous Sulfate) 325 ( 65 Fe) MG 1 tablet Orally bid for 30 days 10/26/2024 Active Imitrex 100 MG 1 tablet at least 2 hours between doses as needed Orally Twice a day for 30 days 10/04/2023 Active Immunizations Vaccine Route Administration Date Status Comme nts Flu, Flucelvax (6008-6130) (28481) 6 mos and older, multi-dose vial IM Intramuscular 06/19/2023 Administered Tdap (Adacel) IM Intramuscular 01/19/2025 Administered Social History Tobacco Use: Social History Observation Description Date Details (start date - stop date) Never Smoker NA - NA Tobacco Use/Smoking Question Answer Notes Patient is a nonsmoker Alcohol Screen (Audit-C) Question Answer Notes Did you have a drink containing alcohol in the p ast year? No Points 0 Interpretation Negative AUDIT-C (Standard) Question Answer Notes Did you have a drink containing alcohol in the p ast year? No Points 0 Interpretation Negative Problems Problem Type SNOMED Code ICD Code Onset Dates Problem Status W/U Status Risk Notes Problem 97807332 Essential (primary) hypertension (I10) Active confirmed Problem Hypomagnesemia (880561908) Hypomagnesemia (E83.42) Active confirmed Problem 2271047 Primary insomnia (F51.01) Active confirmed Problem 36346891 Orthostatic hypotension (I95.1) Active confirmed Problem 0107937 Unspecified chronic gastritis without bleeding (K29.50) Active confirmed Problem 24462990 Radiculopathy, cervical region (M54.12) Active confirmed Problem 568597801 Impingement syndrome of unspecified shoulder (M75.40) Active confirmed Problem 82470786 Paresthesia of skin (R20.2) Active confirmed Problem Gastroesophageal reflux disease (712128934) GERD (gastroesophageal reflux disease) (K21.9) Active confirmed Problem Essential hypertension (55414315) Benign essential HTN (I10) Active confirmed Problem Acid reflux (817911595) Acid reflux (K21.9) Active confirmed Problem Migraine (35614346) Migraine (G43.909) Active confirmed Problem Well adult (900393425) Well adult (Z00.00) Active confirmed Problem Paresthesia (19130310) Paresthesia (R20.2) Active confirmed Problem Cellulitis (567616644) Cellulitis (L03.90) Active confirmed Problem Mass of neck (351634015) Neck mass (R22.1) Active confirmed Problem Arthralgia of the ankle and/or foot (506851283) Ankle pain, right (M25.571) Active confirmed Problem Goiter (2823741) Enlarged thyroi d (E04.9) Active confirmed Problem Malignant tumor of thyroid gland (579051420) Papillary carcinoma of thyroid (C73) Active confirmed Problem Non-toxic single thyroid nodule (221361579) Right thyroid nodule (E04.1) Active confirmed Problem Essential hypertension (78672444) BP (high blood pressure) (I10) Active confirmed Problem 95715153 Pure hypercholesterole stefan, unspecified (E78.00) Active confirmed Problem 620094449 Headache, unspecified (R51.9) Active confirmed Vital Signs Blood pressure diastolic 84 mm Hg 01/19/2025 Height 64 in 01/19/2025 Blood pressure systolic 132 mm Hg 01/19/2025 Weight 275 lbs 01/19/2025 BMI 47.2 kg/m2 01/19/2025 Procedures Procedure Date Ordered Date Performed Result Body Sit e CARDIO Echocardiogram 04/15/2024 N/A Encounters Encounter Location Date Provider Diagnosis [facility] [address] [place] [address] 12/28/2024 Ramón Brooke [facility] [address] [place] [address] 01/18/2025 Ramón Brooke [facility] [address] [place] [facility] [place] [address] 01/18/2025 Ramón cande [facility] [address] [place] [place] [address] 09/15/2024 Ramón Brooke [facility] [address] [place] [facility] [place] [address] 10/23/2024 Ramón Brooke Well adult Z00.00 ; Essential (primary) hypertension I10 ; Pure hypercholesterolemia, unspecified E78.00 ; Hypomagnesemia E83.42 and Papillary carcinoma of thyroid C73 [facility] [address] [place] [address] 10/25/2024 Ramón Brooke Enlarged thyroid E04 .9 and Dehydration E86.0 [facility] [address] [place] [place] [address] 11/02/2024 Ramón Edwardo [facility] [address] [place] [place] [address] 11/30/2024 Ramón cande [facility] [address] [place] [address] 12/14/2024 Ramón [facility] [address] [place] [address] 08/03/2024 Ramón Multanicande [facility] [address] [place] [address] 08/10/2024 Ramón Brooke [facility] [address] [place] [place] [address] 08/18/2024 Ramón Brooke [facility] [address] [place] [place] [address] 08/24/2024 Ramón Brooke Right thyroid nodule E04.1 [facility] [address] [place] [place] [address] 2024 Ramón Brooke [facility] [address] [place] [address] 09/13/2024 Ramón Brooke [facility] [address] [place] [place] [address] 05/18/2024 Ramón Multaniy Hypomagnesemia E83.4 2 [facility] [address] [place] [address] 05/22/2024 Ramón Brooke Ankle pain, right M25.571 [facility] [address] [place] [address] 06/04/2024 Ramón Multaniy [facility] [address] [place] [address] 06/15/2024 Ramón Rangely [facility] [address] [place] [address] 06/30/2024 Ramón Brooke Enlarged thyroid E04 .9 [facility] [address] [place] [address] 07/04/2024 Ramón Brooke [facility] [address] [place] [address] 03/17/2024 Ramón Brooke [facility] [address] [place] [address] 04/14/2024 Ramón Brooke [facility] [address] [place] [address] 04/20/2024 Ramón [facility] [address] [place] [address] 04/30/2024 Raómn Brooke [facility] [address] [place] [address] 12/30/2024 Ramón Brooke [facility] [address] [place] [address] 01/17/2025 Ramón Brooke [facility] [address] [place] [address] 01/21/2025 Ramón cande [facility] [address] [place] [address] 09/30/2024 Ramón Brooke [facility] [address] [place] [address] 10/05/2024 Ramón Brooke [facility] [address] [place] [address] 10/26/2024 Ramón Brooke [facility] [address] [facility] [place] [address] 11/05/2024 Ramón Brooke [facility] [address] [facility] [place] [address] 11/30/2024 Ramón Rangelcande [facility] [address] [place] [place] [address] 11/30/2024 Ramón Brooke [facility] [address] [place] [address] 06/02/2024 Ramón Brooke [facility] [address] [facility] [place] [address] 06/05/2024 Ramón Brooke [facility] [address] [place] [address] 06/09/2024 Ramón Multaniy Ankle pain, right M25.571 [facility] [address] [facility] [place] [address] 08/24/2024 Ramón Brooke [facility] [address] [place] [place] [address] 09/04/2024 Ramón Brooke [facility] [address] [facility] [place] [address] 09/11/2024 Ramón Multanicande [facility] [address] [facility] [place] [address] 03/29/2024 Ramón Brooke [facility] [address] [place] [place] [address] 04/04/2024 Ramón Hoy Orthostatic hypotens ion I95.1 [facility] [address] [facility] [place] [address] 04/14/2024 Ramón Hoy Shakiness R25.1 [facility] [address] [place] [address] 05/01/2024 Ramón Hoy Hypomagnesemia E83.4 2 [facility] [address] [place] [address] 05/06/2024 Ramón Brooke [facility] [address] [place] [place] [address] 05/16/2024 Ramón Hoy [facility] [address] [place] [address] 02/03/2024 DONNELL HOY [facility] [address] [place] [address] 03/28/2024 Ramón Hoy [facility] [address] [place] [address] 05/21/2024 Ramón Hoy Ankle pain, right M25.571 and Radiculopathy, cervical region M54.12 [facility] [address] [place] [address] 01/19/2025 Ramón Hoy Cellulitis L03.90 ; Laceration of hand S61.419A and Encounter for immunization Z23 [facility] [address] [place] [address] 09/09/2024 Ramón Hoy Acute bronchitis, unspecified organism J20.9 [facility] [address] [place] [place] [address] 03/06/2024 Ramón Hoy Orthostatic hypotens ion I95.1 and Impingement syndrome of unspecified shoulder M75.40 [facility] [address] [place] [address] 03/30/2024 Ramón Hoy Impingement syndrome of unspecified shoulder M75.40 and Essential (primary) hypertension I10 [facility] [address] [place] [address] 04/15/2024 Ramón Hoy Orthostatic hypotens ion I95.1 ; Essential (primary) hypertension I10 ; Hypomagnesemia E83.42 and Paresthesia R20.2 [facility] [address] [facility] [address] 12/07/2024 Ramón Hoy Orthostatic hypotens ion I95.1 and Essential (primary) hypertension I10 Assessments Encounter Date Diagnosis (ICD Code) Assessment Notes Treatment Notes Treatment Clinical Notes Section Notes 03/06/2024 Orthostatic hypotension (ICD-10 - I95.1) 03/06/2024 Impingement syndrome of unspecified shoulder (ICD-10 - M75.40) left worse tahtn R -= R is more in the muscle part needs PT for Dry Needling 03/30/2024 Impingement syndrome of unspecified shoulder (ICD-10 - M75.40) 03/30/2024 Essential (primary) hypertension (ICD-10 - I10) 04/15/2024 Orthostatic hypotension (ICD-10 - I95.1) 04/15/2024 Essential (primary) hypertension (ICD-10 - I10) 05/21/2024 Ankle pain, right (ICD-10 - M25.571) 05/21/2024 Radiculopathy, cervical region (ICD-10 - M54.12) 09/09/2024 Acute bronchitis, unspecified organism (ICD-10 - J20.9) Rest and drink more liquids, especially water. You may use a humidifier or vaporizer to help keep the drainage moist. Gkiu-jhv-kpadqqa Nasal Saline may help the stuffy and runny nose. Use Ibuprofen and or Tylenol as needed for fever, chills, body aches or pain. Children 5 years old should not be given vbxk-opw-nsrmpoz cough and cold medications such as guaifenesin and dextromethorphan. If you're over age 5, you may try kkdb-ict-sdxezrx cold medications such as guaifenesin and dextromethorphan, or multi-symptom cold reliever such as Dayquil to help reduce the symptoms. Antibiotics have been prescribed. You should take these until completed and follow the directions. Antibiotics can sometimes cause upset stomach, and in rare cases, serious allergic reactions or serious gastrointestinal problems. If you start having severe abdominal pain, severe vomiting, or bloody diarrhea, you should be reevaluated by your physician or urgent care immediately. Follow up with your Primary Care Provider or return to clinic if symptoms do not improve within 3-5 days. If you develop severe symptoms such as shortness of breath, repeated vomiting, coughing up blood, or chest pain you should go to the emergency room or call 911 12/07/2024 Orthostatic hypotension (ICD-10 - I95.1) 12/07/2024 Essential (primary) hypertension (ICD-10 - I10) 01/19/2025 Cellulitis (ICD-10 - L03.90) insid linew of demarcation - says swelling better since on AB 01/19/2025 Laceration of hand (ICD-10 - S61.419A) 05/18/2024 Hypomagnesemia (ICD-10 - E83.42) 05/22/2024 Ankle pain, right (ICD-10 - M25.571) 06/30/2024 Enlarged thyroid (ICD-10 - E04.9) 08/24/2024 Right thyroid nodule (ICD-10 - E04.1) 10/23/2024 Well adult (ICD-10 - Z00.00) 10/23/2024 Essential (primary) hypertension (ICD-10 - I10) 10/25/2024 Enlarged thyroid (ICD-10 - E04.9) 10/25/2024 Dehydration (ICD-10 - E86.0) 04/04/2024 Orthostatic hypotension (ICD-10 - I95.1) 04/14/2024 Shakiness (ICD-10 - R25.1) 05/01/2024 Hypomagnesemia (ICD-10 - E83.42) 06/09/2024 Ankle pain, right (ICD-10 - M25.571) 10/23/2024 Pure hypercholesterolem ia, unspecified (ICD-10 - E78.00) 01/19/2025 Encounter for immunization (ICD-10 - Z23) 04/15/2024 Hypomagnesemia (ICD-10 - E83.42) 04/15/2024 Paresthesia (ICD-10 - R20.2) 10/23/2024 Hypomagnesemia (ICD-10 - E83.42) 10/23/2024 Papillary carcinoma of thyroid (ICD-10 - C73) Plan Of Treatment Pending Test Test Name Order Date CMP (COMPLETE METABOLIC PANEL) 3 HEMOGLOBIN A1C (GLYCO) 02/20/2023 IRON, TOTAL 02/20/2023 LIPID PANEL (CHOL/TRIG/HDL/LDL) 02/21/20 CBC WITH DIFF 02/20/2023 MRI Brain w/wo contrast * 06/19/2023 CARDIO Echocardiogram 04/15/2024 FECAL OCCULT BLOOD 10/23/2024 Insulin Level 02/20/2023 CMP - Comprehensive Metabolic Panel 09/27 PROF 14(COMP METB) 03/30/2024 PROF CHEM 8 (BAS METB) 10/25/[address] W CON 07/01/2023 MRI ANKLE RT WO CON 05/22/2024 MRI BRAIN WO W CON 06/13/2023 US KIDNEYS 02/27/2023 XR ANKLE RT MIN 3 VIEWS 05/21/2024 THYROID PANEL (T4/TSH/FREE T3) 3 THYROID PANEL (T4/TSH/FREE T3) 5 THYROID PANEL (T4/TSH/FREE T3) 5 Vitamin D 10/23/2024 Next Appt Details Provider Name:Ramón Brooke, 08:15:00 AM, [address] [place], [address], Insurance Providers Payer Name Payer Address Payer Phone Subscriber Number Group Number Insured Name Patient Relationship to Insured Coverage Start Date Coverage End Date [facility] [address] [place], [place] [id number] Keaton Ross Spouse - patient is the spouse of the insured 3 Medications Administered Medication Instructions Date of Administration Dosage Notes Kenalog-40 09/23/2023 120 mg Kenalog-40 03/06/2024 120 mg 120 Kenalog-40 05/21/2024 80 mg 80 Ketorolac Tromethamine 03/06/2024 60 mg 60 Ketorolac Tromethamine 05/21/2024 60 mg 60 Orphenadrine Citrate 03/06/2024 60 mg 60 Medical (General) History Medical History History ICD Code Nondisplaced fracture of distal phalanx of right thumb Gallstones Heel Spur Palpitations Pilonidal Cyst Platar Fascitis Surgical History Surgery Date(Month/Year) Right Hemithyroidectomy- Dr Morales 5 Tonsills Tailbone surgery x 6 Right Foot surgery x2 Dr. Zara REAVES 08/2022 Hospitalization History Reason Date(Month/Year) Migraine 05/2023
--- OUTSIDE RECORDS SUMMARY | 2025-01-30 10:16 | XMS_ITS | Encounter Summary ---
Author Organization [facility] Address [address] [place] [address] Care Team Providers Care Advertising Analyst Name Role Phone Felipe Brooke MD Primary Care Provider [phone] Willa Hanks DO Unavailable [phone] Edis Morales Gilda DO Unavailable Encounter Details Date Type Department Care Team (Late st Contact Info) Description 12/15/2024 Orders Only [facility] [address] [place] [address] Felipe Brooke MD [address] [facility] [place] [address] Social History Tobacco Use Types Packs/Day Years Used Date Smoking Tobacco: Never Smokeless Tobacco: Never Alcohol Use Standard Drinks/Week Comments Not Currently 0 (1 standard drink = 0.6 oz pur e alcohol) Comments Unknown Sex and Gender Information Value Date Recorded Sex Assigned at Female 2024 1:41 PM EST Legal Sex Female 10:14 PM EDT Gender Identity Female 2024 1:41 PM EST Sexual Orientation Not on file documented as of this encounter Plan of Treatment Upcoming Encounters Date Type Department Care Team (Late st Contact Info) Description 02/01/2025 1:30 PM EDT Office Visit [facility] [address] [place] [phone] Edis Morales DO [address] [place] [address] documented as of this encounter Procedures Procedure Name Priority Date/Time Associated Diagnosis Comments SCANNED LABS Routine 12/15/2024 7:15 AM EDT documented in this encounter Results * SCANNED LABS (12/15/2024 7:15 AM EDT) us Felipe Brooke MD LAB CHG PERFORMABLES Final Resu lt documented in this encounter Visit Diagnoses Not on filedocumented in this encounter Care Teams Advertising Analyst Relationship Specialty Start Date End Date Felipe Brooke MD PCP - General Family Medicine 11/18/23 Willa Hanks DO [address] [place] [address] Referring Physician Neurology 11/18/23 Edis Morales DO [address] [place] [address] Otolaryngology 09/01/24 documented as of this encounter
[2025-01-30 11:20] LABS: Thyroid Stimulating Hormone 4.778 uIU/mL (0.358-3.740)
[2025-01-31 08:08] LABS: Triiodothyronine (T3) 118 ng/dL (71-180)
== END 2025-01-30 10:14 | disposition home or self-care (01) ==
LOC: LAB 10:14
PROVIDERS: PCP Family Medicine
DX: E89.0 Postprocedural hypothyroidism (principal); C73 Malignant neoplasm of thyroid gland
CPT/HCPCS: 36415; 84432; 84436; 84443; 84480

== ENCOUNTER 2025-03-28 11:11 | Emergency (ER) | payer OTHER, SELFPAY ==
--- OUTSIDE RECORDS SUMMARY | 2025-02-01 06:20 | XMS_ITS ---
Author Organization [facility] Address [address] [place] [address] Care Team Providers Care Director Global Name Role Phone Felipe Brooke Primary Care Provider Paulino Giordano Unavailable [phone] REASON FOR VISIT RIGHT KNEE MCL STRAIN Encounters Encounter Location Date Provider Diagnosis [facility] [address] [place] [address] [address] [place] [address] 02/01/2025 Paulino Zhu Plan Of Treatment No Information Progress Notes * JAREK FIELD RDOB: [birth year] (34 yo F)Acc No.[id number]:02/01/2025 Patient: JAREK CARROLL Provider: Lynette Zhu MD :1990 A ge:34 Y S ex:Female Date:02/01/2025 Address:[address] [place], [id number] Pcp:Felipe Brooke Subjective: * Chief Complaints: * 1 . RIGHT KNEE MCL STRAIN. * Medical History: Objective: * Vitals: Assessment: Plan: * Treatment: Forms: * Images: * Electronic signature of Tuan Zhu MD on 03/28/2025 at 11:19 AM EDT Sign off status: Pending * Provider: Lynette Zhu MD Date: 02/01/2025 Generated for Printi ng/Faxing/eTransmitting on: 03/28/2025 11:19 AM EDT
--- OUTSIDE RECORDS SUMMARY | 2025-03-25 08:35 | XMS_ITS ---
Author Organization [facility] [place] Address [address] [place] [address] Care Team Providers Care Ui Developer With [employer] J[employer] Name Role Phone Ramón Brooke Primary Care Provider REASON FOR VISIT RE:Iman See Encounters Encounter Location Date Provider Diagnosis [facility] [address] [facility] [place] [address] 03/25/2025 Ramón Brooke Plan Of Treatment No Information Progress Notes * Veronica ROSS RDOB: [birth year] (34 yo F)Acc No.[id number]:03/25/2025 Patient: Amber PARKERVeronica :1990 A ge:34 Y S ex:Female Address:[address] [place], [address] * true * Date: Generated for Heleni yudelka/Dinhg/eTransmitting on: 0 03/28/2025 11:18 AM EDT
--- OUTSIDE RECORDS SUMMARY | 2025-03-25 08:51 | XMS_ITS ---
Author Organization [facility] [place] Address [address] [place] [address] Care Team Providers Care Commercial Field Inspector Name Role Phone Ramón Brooke Primary Care Provider REASON FOR VISIT RE:RE:Iman See Encounters Encounter Location Date Provider Diagnosis [facility] [address] [facility] [address] 03/25/2025 Ramón Brooke Plan Of Treatment No Information Progress Notes * Veronica ROSS RDOB: [birth year] (34 yo F)Acc No.[id number]:03/25/2025 Patient: Veronica CARROLL Edwige :1990 A ge:34 Y S ex:Female Address:[address] [place], [address] * true * Date: Generated for Aurelia jha/Leonela/eTransmitting on: 0 03/28/2025 11:19 AM EDT
--- OUTSIDE RECORDS SUMMARY | 2025-03-28 11:18 | XMS_ITS | CCD ---
Author Organization [facility] CliniSymd Care Team Providers Care 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 Name Role Phone Felipe Brooke Primary Care Physician [phone] MD Bonnie Jeffrey Attending Provider [phone] MD Felipe Brooke Primary Care Provider [phone] Edwardo PROVIDERFelipe Referring Unavailabl e NILL, Sanjay Gibbosn Attending Unavailable NILL, Sanjay Gibbons Attending Unavailable NILL, Sanjay Gibbons Attending Unavailable NILL, Sanjay Gibbons Attending Unavailable Hoy PROVIDERFelipe Referring Unavailabl e NILL, Sanjay Gibbons Attending Unavailable Bonnie Jeffrey Unavailable MD Bonnie Jeffrey Attending Provider MD Felipe Brooke Primary Care Provider [phone] RANGELY ., DR JACOBO Primary Care Unavailable HOY [...] Unavailable Felipe Brooke MD Primary Care Provider [phone] Armand Hanks DOle Unavailable Edis Morales DO Unavailable [phone] Felipe Brooke MD Primary Care Provider [phone] Felipe Brooke MD Attending Provider [phone] Edis Morales DO Attending Provider Felipe Brooke Primary Care Unavailable Edis Morales Attending Unavailable Edis Morales Admitting Unavailable Hoy, Felipe M Primary Care Unavailable Hoy, Felipe M Admitting Unavailable Hoy, Felipe M Attending Unavailable Rangely, Felipe M Primary Care Unavailable Edis Morales Attending Unavailable Edis Morales Admitting Unavailable Felipe Brooke MD Primary Care Provider [phone] EDIS MORALES Attending Unavailable EDIS MORALES Attending Unavailable HOY, FELIPE M Referring Unavailable MUREDIS MARCUS Attending Unavailable HOY, FELIPE M Referring Unavailable MURCEEDIS Larsen Attending Unavailable HOY, FELIPE M Referring Unavailable MURCEKEDIS Attending Unavailable Allergies Allergy Classification Reported Allergen(s) Allergy Type Date of Onset Reaction(s) Facility (19 sources) Morphine; Translations: [morphine] Drug Allergy 3 Chest pain (finding) [facility] [place] (20 sources) SILVER; Translations: [SILVER] Allergy to substance 4 INFECTION, Edema, silver wound pack reversed healing, Edema, silver wound pack reversed healing [facility] Comment on above: reversed healing (14 sources) irbesartan; Translations: [irbesartan] Drug Allergy 3 Unknown Reaction [facility] Comment on above: renal failure (1 source) [facility]; Translations: [MORPHINE SUBSTITUTE] Propensity to adverse reactions (disorder) [facility] Repository (1 source) Morphine Drug Allergy [facility] Rep[facility] Medications Current Medications Medication Drug Class(es) Dates Sig (Normalized) Sig (Original) acebutolol 200 mg oral capsule (20 sources) beta-Adrenergic Ana Start: 09-26-2022 take 1 capsule by mouth in the morning acebutolol (Sectral) 200 MG capsule Take 200 mg by mouth in the morning and 200 mg before bedtime. 08/20/2024 Active Start: 07-27-2022 take 1 capsule by mo ut twice daily acebutolol 200 mg Cap 200 mg = 1 cap(s), Oral, BID, Refills(s) 0 Start Date: 07/27/22 Status: Ordered take 1 capsule by mo ut every twenty-four hours Acebutolol HCl 200 MG [...] the morning Orally Once a day Active cholecalciferol 0.05 mg oral tablet (3 sources) Vitamin D Start: 10-26-2024 take 1 tablet by mouth once daily cholecalciferol (Vitamin D-3) 50 MCG (1999 UT) tablet TAKE 1 TABLET BY MOUTH EVERY DAY FOR 90 DAYS 10/26/2024 Active DULoxetine 60 mg delayed release oral capsule (17 sources) Serotonin and Norepinephrine Reuptake Inhibitor Start: 08-06-2024 DULoxetine (Cymbalta) [address] capsule 08/06/2024 Active ferrous sulfate 325 mg oral tablet (3 sources) Start: 12-23-2024 ferrous sulfate 325 (65 Fe) MG tablet 12/23/2024 Active hydroCHLOROthiazide 25 mg oral tablet (3 sources) Thiazide Diuretic Start: 12-07-2024 take 1 tablet by mouth in the morning hydroCHLOROthiazide (HYDRODiuril) 25 MG tablet Take 25 mg by mouth in the morning. 12/07/2024 Active hydroCHLOROthiazide 50 mg / triamterene 75 mg oral tablet (20 sources) Potassium-sparing Diuretic, Thiazide Diuretic Start: 07-28-2024 triamterene-hydrochlor othiazide (Maxzide) 75-50 MG tablet 07/28/2024 Active Start: 07-27-2022 take 1 tablet by alo th once daily in the morning triamterene-hydrochlorothiazide (Maxzide ) 75-50 MG tablet TAKE 1 TABLET BY MOUTH EVERY DAY IN THE MORNING FOR 90 DAYS 07/28/2024 Active lamoTRIgine 200 mg oral tablet (17 sources) Mood Stabilizer, Anti-epileptic Agent Start: 09-07-2024 Lamotrigine 200 mg tablet Active 300 MG PO Daily at bedtime September 07, 2024 12:00am Start: 08-03-2024 lamoTRIgine (L aMICtal) 200 MG tablet 08/03/2024 Active levonorgestrel 0.988332 mg/hr intrauterine system (3 sources) Progestin, Progestin-containing Intrauterine Device Start: 09-26-2022 Levonorgestrel (Mirena) 20 mcg/24 hours (8 yrs) 52 mg Intrauterine Device Active 20 MCG INTRAUTERI Daily September 26, 2022 12:00am levothyroxine sodium 0.1 mg oral tablet (7 sources) l-Thyroxine Start: 02-01-2025 End: 05-02-2025 take 1 tablet by mouth before mealtime levothyroxine (Synthroid) 100 MCG tablet Indications: Status post partial thyroidectomy (CMS/HCC) Take 1 tablet (100 mcg) by mouth in the morning. Take before meals. 30 tablet 2 02/01/2025 05/02/2025 Active Start: 10-26-2024 End: 12-25-2024 take 1 tablet by mouth before mealtime levothyroxine (Synthroid) 50 MCG tablet Indications: Status post partial thyroidectomy (CMS/HCC) Take 1 tablet (50 mcg) by mouth in the morning. Take before meals. 30 tablet 1 10/26/2024 Active losartan potassium 25 mg oral tablet [...] Start: 07-27-2022 take 2 tablets by mo [facility] once daily oxaprozin 600 mg Tab 1,200 [...] chloride 20 meq extended release oral tablet (17 sources) Start: 09-07-2024 take 2 tablets by [...] EVERYDAY AT BEDTIME 08/06/2024 Active Start: 09-26-2022 tiZANidine (Za naflex) 4 MG tablet 08/06/2024 Active Start: 09-26-2022 take 4-8 mg by mouth once daily at bedtime Tizanidine Active 4 - 8 MG PO Daily at bedtime September 26, 2022 1:00am Start: 07-27-2022 take 2 tablets by [facility] at bedtime tiZANidine 4 mg Tab 8 mg = 2 tab(s), Oral, Bedtime, Refills(s) 0 Start Date: 07/27/22 Status: Ordered take 1 capsule by [facility] every eight hours tiZANidine HCl 4 [...] Discontinued 100 MG PO Twice daily 10 5 September 28, 2022 12:00am September 07, 2024 [...] OBST] Onset: 09-18-2022 Episodic Cancer of thyroid (6 sources) Malignant tumor of thyroid gland; Translations: [Malignant neoplasm of thyroid gland] 09-21-2024 Chronic Complications of surgical procedures or medical care (6 sources) History of subtotal thyroidectomy; Translations: [Postprocedural [...] Other correction (current) drug therapy; Translations: [[employer] CURRENT DRUG THERAPY] Onset: 09-18-2022 Episodic Other [...] Onset: 06-28-2022 Episodic Disorders of lipid metabolism (18 sources) Hypercholesterolemia; Translations: [Pure hypercholesterolemia, unspecified] Onset: 09-18-2022 Resolved: 08-29-2024 07-27-2022 Chronic Essential hypertension (19 sources) Hypertensive disorder; Translations: [Essential (primary) hypertension] Onset: 09-18-2022 Resolved: 08-29-2024 03-24-2013 Chronic Fluid and electrolyte disorders (4 sources) Dehydration; Translations: [DEHYDRATION] Onset: 07-04-2022 Episodic Fracture of upper limb (12 sources) Fracture of phalanx of finger; Translations: [Fracture of unspecified phalanx of unspecified finger, initial encounter for closed fracture] Onset: 09-27-2022 Resolved: 09-20-2024 09-28-2022 Episodic Comment on above: Problem List clean-u p per request of Phys. EHR Cmte Headache; including migraine (17 sources) Migraine; Translations: [Migraine, unspecified, not intractable, without status migrainosus] Onset: 08-29-2024 Resolved: 08-29-2024 07-27-2022 Chronic Neoplasms of unspecified nature or uncertain behavior (1 source) Myelodysplastic syndrome, unspecified; Translations: [MYELODYSPLASTIC SYNDROME UNS] Onset: 07-05-2022 Episodic Open wounds of extremities (11 sources) Laceration of nail bed of finger ; Translations: [Laceration without foreign body of unspecified finger with damage to nail, initial encounter] Onset: 09-20-2024 Resolved: 09-20-2024 09-28-2022 Episodic Comment on above: Problem List clean-u p per request of Phys. EHR Cmte Other circulatory disease (18 sources) Orthostatic hypotension; Translations: [Orthostatic hypotension] Onset: 06-29-2022 Resolved: 08-29-2024 07-27-2022 Episodic Other circulatory disease (5 sources) Hypotension, unspecified; Translations: [HYPOTENSION UNSPECIFIED] Onset: 07-02-2022 Episodic Other circulatory disease (3 sources) Orthostatic hypotension; Translations: [ORTHOSTATIC HYPOTENSION] Onset: 07-05-2022 Episodic Other nervous system disorders (11 sources) Pain in limb; Translations: [Other acute postprocedural pain] Onset: 09-20-2024 Resolved: 09-20-2024 09-28-2022 Episodic Comment on above: Problem List clean-u p per request of Phys. EHR Cmte Other nutritional; endocrine; and metabolic disorders (17 sources) Body mass index 40+ - severely obese; Translations: [Body mass index (BMI) 40.0-44.9, adult] Onset: 08-29-2024 Resolved: 08-29-2024 07-30-2022 Chronic Other nutritional; endocrine; and metabolic disorders (17 sources) Morbid obesity; Translations: [Morbid (severe) obesity due to excess calories] Onset: 08-29-2024 Resolved: 08-29-2024 07-27-2022 Chronic Other skin disorders (17 sources) H/O: skin disorder; Translations: [Personal history of diseases of the skin and subcutaneous tissue] Onset: 08-29-2024 Resolved: 08-29-2024 07-27-2022 Episodic Poisoning by other medications and drugs (1 source) Poisoning by other antihypertensive drugs, accidental (unintentional), initial encounter; Translations: [PSN OTH ANTIHYPERTENSIV RX ACC INIT] Onset: 07-02-2022 Episodic Residual codes; unclassified (17 sources) Insomnia; Translations: [Insomnia, unspecified] Onset: 08-29-2024 Resolved: 08-29-2024 07-27-2022 Episodic Spondylosis; intervertebral disc disorders; other back problems (20 sources) Cervical radiculopathy; Translations: [Radiculopathy, cervical region] Onset: 02-15-2022 Resolved: 08-29-2024 07-27-2022 Episodic Results Test Name Value Interpretation Reference Range Facility HCG,Urineon 09-14-2024 Beta HCG ( test) Ql (U) Negative Normal [facility] Comment on above: Result Comment: PERF ORMED BY: [address] [place] [address] PATHOLOGIST INTELLIGENCE SUPPORT OFFICER SHAWANDA MCKEON M.D. Performed By: #### U HCG #### [address] [place] 09-14-2024 L Specimen: [id number] Received: 09/14/24 Status: PHILIP Simmons Num: [id number] Spec Type: Surgical Subm Dr: Edis Morales DO Tissues: A THYROID - Lobe (RT LOBE AND ISTHMUS) Procedures: HE/6, Gross/Micro L5 Age/ Patient Sex Location Account Attending Physician Veronica Ross 34/F [place] [id number] Edis Morales DO SPEC NUM: [id number] RECD: 09/14/24 STATUS: PHILIP SIMMONS NUM: [id number] TAYLOR: 09/14/[address]: Edis Morales DO ENTERED: 09/14/[address]: SPEC TYPE: Surgical DEPT: S ENTERED BY: [id number] RECV BY: [id number] ORDERED: HE, Gross/Micro L5 ORDERED: , Gross/Micro L5 Pathological Diagnosis Nodule, right thyroid [...] [id number] Received: 09/14/24 Status: PHILIP Simmons Num: [id number] Spec Type: Surgical Subm Dr: Edis Morales DO Tissues: A THYROID - Lobe (RT LOBE AND ISTHMUS) Procedures: , Gross/Micro L5 Patient: PernellcandeVeronica [id number] (Continued) Specimen: [id number] Received: 09/14/24 (Continued) Pathological Diagnosis (Continued) Signed (signature on file) Shawanda Mckeon MD 09/15/24 1526 Specimen: S2 Received: 09/14/24 Status: PHILIP Simmons Num: [id number] Spec Type: Surgical Subm Dr: Edis Morales DO Tissues: A THYROID - Lobe (RT LOBE AND ISTHMUS) Procedures: HE/6, Gross/Micro L5 Patient: Veronica Ross [id number] (Continued) Specimen: S2 Received: 09/14/24 (Continued) Pathological Diagnosis (Continued) Extrathyroidal [...] follows: Specimen: [id number] Received: 09/14/24 Status: PHILIP Simmons Num: [id number] Spec Type: Surgical Subm Dr: Edis Morales DO Tissues: A THYROID - Lobe (RT LOBE AND ISTHMUS) Procedures: MEENAKSHI/Brittany [place]/Micro L5 Patient: Veronica Ross Edwige [id number] (Continued) Specimen: [id number] Received: 09/14/24 (Continued) Gross Description (Continued) Signed (signature on file) Shawanda Mckeon MD 09/15/24 1526 Specimen: [id number] Received: 09/14/24 Status: PHILIP Simmons Num: (more content not included)... Normal [facility] Basic Metabolic Panelon 08-26 Anion gap [Moles/Vol] 12.6 mmol/L Normal 6.0-15.0 [facility] Comment on above: Performed By: #### P TH, BMP, TSH3 #### [facility] [address] [place] [address] Calcium [Mass/Vol] 9.3 mg/dL Normal 8.6-10.3 [facility] Comment on above: Performed By: #### P TH, BMP, TSH3 #### [facility] [address] [place], [place] [id number] [place] Chloride [Moles/Vol] 100 mmol/L Normal 98-107 [facility] Comment on above: Performed By: #### P TH, BMP, TSH3 #### [facility] [address] [id number] [place] CO2 [Moles/Vol] 30.1 mmol/L Normal 21.0-31.0 [facility] Comment on above: Performed By: #### P TH, BMP, TSH3 #### [facility] [address] [place], [place] [phone] [place] Creatinine [Mass/Vol] 1.10 mg/dL Normal 0.60-1.20 [facility] Comment on above: Performed By: #### P THWENCESLAO, TSH3 #### [address] GFR/1.73 sq M.predicted MDRD (S/P/Bld) [Vol rate/Area] mL/min/{1.73_m2} Normal [facility] Comment on above: Performed By: #### P THWENCESLAO, TSH3 #### [address] Glucose [Mass/Vol] 81 mg/dL Normal 70-100 [facility] Comment on above: Result Comment: [place] Glucose Reference Range is dependent on time and content of last meal. Glucose of more than 200 mg/dL in a nonstressed, ambulatory subject supports the diagnosis of Diabetes Mellitus. ADA recommended reference range Performed By: #### P THWENCESLAO, TSH3 #### [address] Potassium [Moles/Vol] 3.7 mmol/L Normal 3.5-5.1 [facility] Comment on above: Performed By: #### P THWENCESLAO, TSH3 #### [address] Sodium [Moles/Vol] 139 mmol/L Normal 136-145 [facility] Comment on above: Performed By: #### P THWENCESLAO, TSH3 #### [address] Urea nitrogen [Mass/Vol] 12 mg/dL Normal 7-25 [facility] Comment on above: Performed By: #### P THWENCESLAO, TSH3 #### [place] [address] [place] Calcium [Mass/volume] in Ser um or PlasmaOrdered By: Edis Morales on 09-07-2024 Calcium [Mass/Vol] Calcium [Mass/volume] in Serum or Plasma 8.6-10.3 [facility] Carbon dioxide, total [Moles /volume] in Serum or PlasmaOrdered By: Edis Morales on 09-07-2024 CO2 [Moles/Vol] Carbon dioxide, total [Moles/volume] in Serum or Plasma 21.0-31.0 [facility] Chloride [Moles/volume] in S fernando or PlasmaOrdered By: Edis Morales on 09-07-2024 Chloride [Moles/Vol] Chloride [Moles/volume] in Serum or Plasma 98-107 [facility] Creatinine [Mass/volume] in Serum or PlasmaOrdered By: Edis Morales on 09-07-2024 Creatinine [Mass/Vol] Creatinine [Mass/volume] in Serum or Plasma 0.60-1.20 [facility] Glucose [Mass/volume] in Ser um or PlasmaOrdered By: Edis Morales on 09-07-2024 Glucose [Mass/Vol] Glucose [Mass/volume] in Serum or Plasma 70-100 [facility] Comment on above: ADA recommended refe rence rangeRandom Glucose Reference Range is dependent on time and content of last meal. Glucose of more than 200 mg/dL in a nonstressed, ambulatory subject supports the diagnosis of Diabetes Mellitus. No Panel InformationOrdered By: Edis Morales on 09-07-2024 Estimated GFR (CKD-EPI) > 60.0 mL/Min [facility] Creatinine Clearance (Chem N/A [facility] Parathyrin.intact [Mass/Vol] on 09-07-2024 PARATHYROID HORMONE INTACT 23 pg/mL - pg/mL [facility] Parathyrin.intact [Mass/volu me] in Serum or PlasmaOrdered By: Edis Morales on 09-07-2024 Parathyrin.intact [Mass/Vol] Parathyrin.intact [Mass/volume] in Serum or Plasma [facility] Parathyroid Hormone Intacton 09-07-2024 Parathyroid Hormone Intact 23.0 pg/mL Normal [facility] Comment on above: Result Comment: PERF ORMED BY: [facility] [address] [place] [address] PATHOLOGIST INTELLIGENCE SUPPORT OFFICER SHAWANDA MCKEON M.D. Performed By: #### P TH, BMP, TSH3 #### [facility] [address] Potassium [Moles/volume] in Serum or PlasmaOrdered By: Edis Morales on 09-07-2024 Potassium [Moles/Vol] Potassium [Moles/volume] in Serum or Plasma 3.5-5.1 [facility] Serum or plasma anion gap de terminationOrdered By: Edis Morales on 09-07-2024 Anion gap [Moles/Vol] Serum or plasma anion gap determination 6.0-15.0 [facility] Sodium [Moles/volume] in Ser um or PlasmaOrdered By: Edis Morales on 09-07-2024 Sodium [Moles/Vol] Sodium [Moles/volume] in Serum or Plasma 136-145 [facility] Thyroid Stimulating Hormoneo n 09-07-2024 TSH Qn 3.14 m[IU]/L Normal 0.45-5.33 [facility] Comment on above: Result Comment: PERF ORMED BY: [place] [address] PATHOLOGIST INTELLIGENCE SUPPORT OFFICER SHAWANDA MCKEON M.D. Performed By: #### P , [facility], TSH3 #### [facility] [address] [place] [address] Thyrotropin [Units/volume] i n Serum or PlasmaOrdered By: Edis Morales on 09-07-2024 TSH Qn Thyrotropin [Units/volume] in Serum or Plasma 0.45-5.33 [facility] Urea nitrogen [Mass/volume] in Serum or PlasmaOrdered By: Edis Morales on 09-07-2024 Urea nitrogen [Mass/Vol] Urea nitrogen [Mass/volume] in Serum or Plasma 7-25 [facility] [place] 08-03-2024 L Specimen: [id number] Received: 08/04/24 Status: PHILIP Simmons Num: [id number] Spec Type: Cytology Subm Dr: Felipe Brooke MD Tissues: A FNA SLIDES NOPATH (RT THY NOD) Procedures: Cyto Int and Re, PAPSTN/5 Age/ Patient Sex Location Account Attending Physician Veronica Ross 33/F LABELL [id number] Felipe Brooke MD SPEC NUM: [id number] RECD: 08/04/24 STATUS: PHILIP RELisa NUM: [id number] TAYLOR: 08/03/24- DR: Felipe Brooke MD ENTERED: 08/04/[address]: Francesca Marcos SPEC TYPE: Cytology DEPT: OSBALDO JOHNSON ENTERED BY: [id number] RECV BY: [id number] ORDERED: Cyto Int and Re, PAPSTN/5 ORDERED: Cyto Int and Re, PAPSTN/5 Pathological Diagnosis Right thyroid nodule,?fine needle aspiration:? Suspicious for follicular neoplasm. 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 [place] Category IV Clinical Information Right Thyroid Nodule Gross Description Received fixed is 30 ml very pale pink clear fluid for cytology said to have been obtained as Right Thyroid Nodule. ThinPrep preparations are prepared for microscopic examination. Also received are 4 spray fixed smeared slides for pap and a Veracyte vial stored at -20 for microscopic examination. (/wy) CPT Codes 58253 Specimen: [id number] Received: 08/04/24 Status: PHILIP Simmons Num: [id number] Spec Type: Cytology Subm Dr: Felipe Brooke MD Tissues: A FNA SLIDES NOPATH (RT THY NOD) Procedures: Cyto Int and Re, PAPSTN/5 Patient: Veronica Ross Edwige [id number] (Continued) Signed (signature on file) Shawanda Mckeon MD 08/05/24 1754 Normal [facility] XR hand RT min 3V*on 023 XR hand RT min 3V* [facility] [employer] Other XR hand RT min 3V* [facility] [employer] Other XR hand RT min 3V* [address] [place] [address] [employer] Other XR hand RT min 3V* [place] [address] [employer] Other XR hand RT min 3V* XRay Report [employer] Other XR hand RT min 3V* Signed [employer] Other XR hand RT min 3V* Patient: Veronica Ross MR#: [id number] [employer] Other XR hand RT min 3V* 7067 [employer] Other XR hand RT min 3V* : 1990 Acct:[id number] [employer] Other XR hand RT min 3V* Age/Sex: 32 / F ADM Date: 11/13/22 [employer] Other XR hand RT min 3V* Loc: [facility] Room: Type: [facility] [employer] Other XR hand RT min 3V* Attending Dr: Bonnie Jeffrey MD [employer] Other XR hand RT min 3V* Copies to: Bonnie Jeffrey MD [employer] Other XR hand RT min 3V* Ordering Provider: Bonnie Jeffrey MD [employer] Other XR hand RT min 3V* Date of Service: 11/13/22 [employer] Other XR hand RT min 3V* XR/XR hand RT min 3V*: Crushing injury of right thumb, subsequent [employer] Other XR hand RT min 3V* encounter [employer] Other XR hand RT min 3V* XR hand RT min 3V* 11/13/2022 3:49 PM [employer] Other XR hand RT min 3V* SIGNS AND SYMPTOMS: Status post incision and debridement of open fracture of right thumb, follow-up [employer] Other XR hand RT min 3V* PROTOCOL: Frontal, lateral, and oblique radiographs of the right hand [employer] Other XR hand RT min 3V* COMPARISON: 09/25/2022 [employer] Other XR hand RT min 3V* FINDINGS: [employer] Other XR hand RT min 3V* Healing/healed fracture of the distal phalanx of the right thumb. There is no change in alignment. [employer] Other XR hand RT min 3V* The joint spaces are preserved. No significant soft tissue swelling. [employer] Other XR hand RT min 3V* XR/XR hand RT min 3V* [employer] Other XR hand RT min 3V* IMPRESSION: [employer] Other XR hand RT min 3V* Impression dictated by: Kalpesh Murry M.D.11/13/2022 5:23 PM [employer] Other XR hand RT min 3V* Dictation Location: [place] [address] [employer] Other XR hand RT min 3V* Transcribed By: SHAY 11/13/22 172 [facility] [employer] Other XR hand RT min 3V* Dictated By: Kalpesh Murry II, MD 11/13/22 172 [facility] Other XR hand RT min 3V* Signed By: [facility] 3VR Other XR hand RT min 3V* 11/13/221722 [facility] 3VR Other PROF CHEM 8 (BAS METB)on Anion gap [Moles/Vol] 11.0 mmol/L Normal [facility] Comment on above: Performed By: #### B MP #### [facility] [address] [place] [address] Dr. Shemar Armas Calcium [Mass/Vol] 8.8 mg/dL Normal 8.5-10.1 [facility] Comment on above: Performed By: #### B MP #### [facility] [address] [address] [address] Shemar Armas Chloride [Moles/Vol] 100 mmol/L Normal 98-107 [facility] Comment on above: Performed By: #### B MP #### [facility] [address] [address] [address] Shemar Armas CO2 [Moles/Vol] 31.5 mmol/L Normal 21.0-32.0 [facility] Comment on above: Performed By: #### B MP #### [facility] [address] [address] [address] Shemar Armas Creatinine [Mass/Vol] 1.18 mg/dL Critically high 0.55-1.02 [facility] Comment on above: Performed By: #### B MP #### [facility] [address] [place] [address] Dr. Shemar Armas EGFR-AF BURKINAN >60 Normal >=60 [facility] Comment on above: Performed By: #### B MP #### [facility] [address] [address] [address] Shemar Armas EGFR-NON AF BURKINAN 53 mL/min/1.73m2 Critically low >=60 [facility] Comment on above: Performed By: #### B MP #### [facility] [address] [address] [address] Shemar Armas Glucose [Mass/Vol] 89 mg/dL Normal 74-106 [facility] Comment on above: Performed By: #### B MP #### [facility] [address] [address] [address] Shemar Armas Potassium [Moles/Vol] 3.5 mmol/L Normal 3.5-5.1 [facility] Comment on above: Performed By: #### B MP #### [facility] [address] [address] [address] Shemar Armas Sodium [Moles/Vol] 139 mmol/L Normal 136-[address] [facility] Comment on above: Performed By: #### B MP #### [facility] [address] [address] [address] Shemar Armas Urea nitrogen [Mass/Vol] 11.0 mg/dL Normal 7.0-18.0 [facility] Comment on above: Performed By: #### B MP #### [facility] [address] [address] [address] Shemar Armas Urea nitrogen/Creatinine [Mass ratio] 9.3 mg/mg Normal [facility] Comment on above: Performed By: #### B MP #### [facility] [address] [address] [address] Shemar Armas HCG ( test) IAancelmoi d Ql (U)Ordered By: THOM DUONG on 09-28-2022 HCG ( test) Ql (U) Negative [facility] Albumin [Mass/volume] in Ser um or PlasmaOrdered By: Bonnie Jeffrey on 09-26-2022 Albumin [Mass/Vol] 4.0 g/dL 3.2-5.5 [facility] Basophils Auto (Bld) [#/Vol] Ordered By: Bonnie Jeffrey on 09-26-2022 Basophils (Bld) [#/Vol] 0.1 10*3/uL 0.0-0.2 [facility] Basophils/100 WBC Auto (Bld) Ordered By: Bonnie Jeffrey on 09-26-2022 Basophils/100 WBC (Bld) 1.2 % . F [facility] Creatinine and Glomerular fi ltration rate.predicted panel (S/P/Bld)Ordered By: Bonnie Jeffrey on 09-26-2022 Creatinine [Mass/Vol] 1.82 mg/dL 0.44-1.03 [facility] Eosinophils Auto (Bld) [#/Vo l]Ordered By: Bonnie Jeffrey on 09-26-2022 Eosinophils (Bld) [#/Vol] 0.1 10*3/uL 0.0-0.45 [facility] Eosinophils/100 WBC Auto (Bl d)Ordered By: Bonnie Jeffrey on 09-26-2022 Eosinophils/100 WBC (Bld) 0.9 % . [facility] Erythrocyte distribution wid th Auto (RBC) [Ratio]Ordered By: Bonnie Jeffrey on 09-26-2022 Erythrocyte distribution width (RBC) [Ratio] 13.6 % 11.9-15.3 [facility] Estimated glomerular filtrat ion rate (GFR) non- AmericanOrdered By: Bonnie Jeffrey on 09-26-2022 GFR/1.73 sq M.predicted among non-blacks MDRD (S/P/Bld) [Vol rate/Area] 32 mL/Min [facility] Globulin Calc (S) [Mass/Vol] Ordered By: Bonnie Jeffrey on 09-26-2022 Globulin (S) [Mass/Vol] 2.8 g/dL F [facility] Hematocrit Auto (Bld) [Volum e fraction]Ordered By: Bonnie Jeffrey on 09-26-2022 Hematocrit (Bld) [Volume fraction] 40.2 % 34.0-46.4 [facility] Hemoglobin [Mass/volume] in BloodOrdered By: Bonnie Jeffrey on 09-26-2022 Hemoglobin (Bld) [Mass/Vol] 13.3 g/dL 11.8-15.4 [facility] Leukocytes [#/volume] correc franco for nucleated erythrocytes in Blood by Automated counOrdered By: Bonnie Jeffrey on 09-26-2022 WBC corrected for nucl RBC Auto (Bld) [#/Vol] 9.4 10*3/uL 3.8-11.6 [facility] Lymphocytes Auto (Bld) [#/Vo l]Ordered By: Bonnie Jeffrey on 09-26-2022 Lymphocytes (Bld) [#/Vol] 1.7 10*3/uL 1.00-4.8 [facility] Lymphocytes/100 WBC Auto (Bl d)Ordered By: Bonnie Jeffrey on 09-26-2022 Lymphocytes/100 WBC (Bld) 18.1 % . [facility] MCH Auto (RBC) [Entitic mass ]Ordered By: Bonnie Jeffrey on 09-26-2022 MCH (RBC) [Entitic mass] 28.8 pg 24.7-34.3 [facility] MCHC Auto (RBC) [Mass/Vol]Or dered By: Bonnie Jeffrey on 09-26-2022 MCHC (RBC) [Mass/Vol] 33.0 g/dL 32.0-35.0 [facility] MCV Auto (RBC) [Entitic vol] Ordered By: Bonnie Jeffrey on 09-26-2022 MCV (RBC) [Entitic vol] 87.1 fL 80-[address] [facility] Monocytes Auto (Bld) [#/Vol] Ordered By: Bonnie Jeffrey on 09-26-2022 Monocytes (Bld) [#/Vol] 0.5 10*3/uL 0.0-0.8 [facility] Monocytes/100 WBC Auto (Bld) Ordered By: Bonnie Jeffrey on 09-26-2022 Monocytes/100 WBC (Bld) 5.8 % . F [facility] Neutrophils Auto (Bld) [#/Vo l]Ordered By: Bonnie Jeffrey on 09-26-2022 Neutrophils (Bld) [#/Vol] 7.0 10*3/uL 1.8-7.7 [facility] Neutrophils/100 WBC Auto (Bl d)Ordered By: Bonnie eJffrey on 09-26-2022 Neutrophils/100 WBC (Bld) 74.0 % . [facility] No Panel InformationOrdered By: Bonnie Jeffrey on 09-26-2022 Estimated GFR () 39 mL/Min [facility] Comment on above: GFR estimated refere nce range: According to KDOQI guidelines, <60 ml/min/1.73m2 is sufficient to diagnose a patient with chronic kidney disease. Pharmacy Creatinine Clearance (Chem N/A [facility] Nucleated erythrocytes [Pres ence] in Blood by Automated countOrdered By: Bonnie Jeffrey on 09-26-2022 Nucleated RBC Auto Ql (Bld) 0.0 /100{WBC} 0-0.5 [facility] Platelet mean volume Auto (B ld) [Entitic vol]Ordered By: Bonnie Jeffrey on 09-26-2022 Platelet mean volume (Bld) [Entitic vol] 7.8 fL 6.3-10.7 [facility] Platelets Auto (Bld) [#/Vol] Ordered By: Bonnie Jeffrey on 09-26-2022 Platelets (Bld) [#/Vol] 335 10*3/uL 150-450 [facility] Protein [Mass/volume] in Ser um or PlasmaOrdered By: Bonnie Jeffrey on 09-26-2022 Protein [Mass/Vol] 6.8 g/dL 6.1-7.9 [facility] RBC Auto (Bld) [#/Vol]Ordere d By: Bonnie Jeffrey on 09-26-2022 RBC (Bld) [#/Vol] 4.62 10*6/uL 3.60-5.00 [facility] Serum or plasma alanine kamara otransferase measurement without P-5'-P (enzymatic activiOrdered By: Bonnie Jeffrey on 09-26-2022 ALT No additional P-5'-P [Catalytic activity/Vol] 19 U/L 10-60 [facility] Serum or plasma albumin/glob ulin mass ratioOrdered By: Bonnie Jeffrey on 09-26-2022 Albumin/Globulin [Mass ratio] 1.4 {ratio} [facility] Serum or plasma alkaline mona sphatase measurement (enzymatic activity/volume)Ordered By: Bonnie Jeffrey on 09-26-2022 ALP [Catalytic activity/Vol] 45 U/L 32-92 [facility] Serum or plasma anion gap de terminationOrdered By: Bonnie Jeffrey on 09-26-2022 Anion gap [Moles/Vol] 13.8 mmol/L 6.0-15.0 [facility] Serum or plasma aspartate am inotransferase measurement (enzymatic activity/volume)Ordered By: Bonnie Jeffrey on 09-26-2022 AST [Catalytic activity/Vol] 17 U/L 10-42 [facility] Serum or plasma calcium sagrario urement (mass/volume)Ordered By: Bonnie Jeffrey on 09-26-2022 Calcium [Mass/Vol] 8.9 mg/dL 8.2-10.2 [facility] Serum or plasma chloride julieta surement (moles/volume)Ordered By: Bonnie Jeffrey on 09-26-2022 Chloride [Moles/Vol] 100 mmol/L 95-114 [facility] Serum or plasma glucose sagrario urement (mass/volume)Ordered By: Bonnie Jeffrey on 09-26-2022 Glucose [Mass/Vol] 86 mg/dL 70-100 [facility] Comment on above: ADA recommended refe rence rangeRandom Glucose Reference Range is dependent on time and content of last meal. Glucose of more than 200 mg/dL in a nonstressed, ambulatory subject supports the diagnosis of Diabetes Mellitus. Serum or plasma potassium me asurement (moles/volume)Ordered By: Bonnie Jeffrey on 09-26-2022 Potassium [Moles/Vol] 3.5 mmol/L 3.5-5.1 [facility] Serum or plasma sodium measu rement (moles/volume)Ordered By: Bonnie Jeffrey on 09-26-2022 Sodium [Moles/Vol] 134 mmol/L 136-146 [facility] Serum or plasma total biliru bin measurement (mass/volume)Ordered By: Bonnie Jeffrey on 09-26-2022 Bilirubin [Mass/Vol] 0.5 mg/dL 0.3-1.2 [facility] Serum or plasma total carbon dioxide measurement (moles/volume)Ordered By: Bonnie Jeffrey on 09-26-2022 CO2 [Moles/Vol] 23.7 mmol/L 22.0-30.0 [facility] Serum or plasma urea nitroge n measurement (mass/volume)Ordered By: Bonnie Jeffrey on 09-26-2022 Urea nitrogen [Mass/Vol] 25 mg/dL 05-18 [facility] WBC Auto (Bld) [#/Vol]Ordere d By: Bnonie Jeffrey on 09-26-2022 WBC (Bld) [#/Vol] 9.4 10*3/uL 3.8-11.6 [facility] Operative Reporton Operative Report [id number] #1.00CD:127 Normal [facility] Pathology Noteon 09-14-2022 Pathology Note [id number]#1.00CD:127 Normal [facility] PREG HCG QUALon 09-12-2022 , QUAL Negative Normal NEGATIVE [facility] Comment on above: Performed By: #### P REG #### [facility] [address] [place] [address] Dr. Shemar Armas Lab Reportson 09-10-2022 Lab Reports [id number] #1.00CD:127 Normal [facility] Covid-19 PCR (CVDTB)on 08-26 SARS-CoV-2 (COVID-19) RNA PADMINI+probe Ql (Unsp spec) Not detected Normal NOT DETECTED [facility] Comment on above: Result Comment: This test is not yet approved or cleared by the [place] FDA. When there are no FDA-approved or cleared tests available, and other criteria are met, FDA can make tests available under an emergency access mechanism called an Emergency Use Authorization (EUA). The EUA for this test is supported by the [place] of Health and Human Service's (HHS's) declaration [...] consistent with SARS-CoV-2. Performed By: #### C [facility] #### [facility] [address] [place], [place] [id number] Dr. Shemar Armas ED Note-Physicianon 08-01-20 ED Note-Physician [id number] #1.00CD:127 Normal [facility] Consent for Procedure/Surger yon 07-31-2022 Consent for Procedure/Surgery [id number] #1.00CD:127 Normal [facility] Physician Referralon 022 Physician Referral [id number] #1.00CD:127 Normal [facility] US SINGLE QUAD RT UPPERon US SINGLE [...] THOM ANGELA Date: 2022-07-09 17:10 Normal [facility] US KIDNEYS BLADDERon 022 US [...] THOM ANGELA Date: 2022-07-04 14:26 Normal [facility] CBC AUTO DIFFon 07-02-2022 BASO # 0.1 103/ul Normal 0.0-0.1 [facility] Comment on above: Performed By: #### C BC #### [facility] [address] [place] [address] Dr. Shemar Armas Basophils/100 WBC (Bld) 0.6 % Normal 0.2-2.0 [facility] Comment on above: Performed By: #### C BC #### [facility] [address] [place] [address] Dr. Shemar Armas EO # 0.1 103/ul Normal 0.0-0.7 [facility] Comment on above: Performed By: #### C BC #### [facility] [address] [place] [address] Dr. Shemar Armas Eosinophils/100 WBC (Bld) 0.8 % Critically low 0.9-7.0 [facility] Comment on above: Performed By: #### C BC #### [facility] [address] [place] [address] Dr. Shemar Armas Erythrocyte distribution width (RBC) [Ratio] 14.6 % Normal 11.0-15.0 [facility] Comment on above: Performed By: #### C BC #### [facility] [address] [place] [address] Dr. Shemar Armas Hematocrit (Bld) [Volume fraction] 36.4 % Normal 36.0-48.0 [facility] Comment on above: Performed By: #### C BC #### [facility] [address] [place] [address] Dr. Shemar Armas Hemoglobin (Bld) [Mass/Vol] 12.2 g/dL Normal 12.0-16.0 [facility] Comment on above: Performed By: #### C BC #### [facility] [address] [place] [address] Dr. Shemar Armas IG # 0.04 10e3/ul Critically high 0.00-0.03 [facility] Comment on above: Performed By: #### C BC #### [facility] [address] [place] [address] Dr. Shemar Armas IG % 0.3 % Normal 0.0-0.5 [facility] Comment on above: Performed By: #### C BC #### [facility] [address] [place] [address] Dr. Shemar Armas LYMPH # 2.1 103/ul Normal 1.2-3.8 [facility] Comment on above: Performed By: #### C BC #### [facility] [address] [place] [address] Dr. Shemar Armas Lymphocytes/100 WBC (Bld) 18.7 % Critically low 20.5-60.0 [facility] Comment on above: Performed By: #### C BC #### [facility] [address] [place] [address] Dr. Shemar Armas MANUAL DIFF REQ NO Normal [facility] Comment on above: Performed By: #### C BC #### [facility] [address] [place] [address] Dr. Shemar Armas MCH (RBC) [Entitic mass] 29.6 pg Normal 26.7-34.0 [facility] Comment on above: Performed By: #### C BC #### [facility] [address] [place] [address] Dr. Shemar Armas MCHC (RBC) [Mass/Vol] 33.5 g/dL Normal 29.9-35.2 [facility] Comment on above: Performed By: #### C BC #### [facility] [address] [place] [address] Dr. Shemar Armas MCV (RBC) [Entitic vol] 88.3 fL Normal 81.0-99.0 [facility] Comment on above: Performed By: #### C BC #### [facility] [address] [place] [address] Dr. Shemar Armas MONO # 0.7 103/ul Normal 0.3-0.8 [facility] Comment on above: Performed By: #### C BC #### [facility] [address] [place] [address] Dr. Shemar Armas Monocytes/100 WBC (Bld) 6.2 % Normal 1.7-12.0 [facility] Comment on above: Performed By: #### C BC #### [facility] [address] [place] [address] Dr. Shemar Armas NEUT # 8.4 103/ul Critically high 1.4-6.5 [facility] Comment on above: Performed By: #### C BC #### [facility] [address] [place] [address] Dr. Shemar Armas Neutrophils/100 WBC (Bld) 73.4 % Normal 43.0-75.0 [facility] Comment on above: Performed By: #### C BC #### [facility] [address] [place] [address] Dr. Shemar Armas Platelet mean volume (Bld) [Entitic vol] 9.2 fL Critically low 9.5-13.5 [facility] Comment on above: Performed By: #### C BC #### [facility] [address] [place] [address] Dr. Shemar Armas PLT 331 103/ul Normal 150-450 [facility] Comment on above: Performed By: #### C BC #### [facility] [address] [place] [address] Dr. Shemar Armas RBC 4.12 106/ul Critically low 4.20-5.40 [facility] Comment on above: Performed By: #### C BC #### [facility] [address] [place] [address] Dr. Shemar Armas WBC 11.4 103/ul Critically high 4.0-11.0 [facility] Comment on above: Performed By: #### C BC #### [facility] [address] [address] [address] Shemar Armas PROF CHEM 8 (BAS METB)on Anion gap [Moles/Vol] 11.5 mmol/L Normal Th [facility] Comment on above: Performed By: #### B MP #### [facility] [address] [address] [address] Shemar Armas Calcium [Mass/Vol] 8.9 mg/dL Normal 8.5-10.1 [facility] Comment on above: Performed By: #### B MP #### [facility] [address] [address] [address] Shemar Armas Chloride [Moles/Vol] 102 mmol/L Normal 98-107 [facility] Comment on above: Performed By: #### B MP #### [facility] [address] [address] [address] Shemar Armas CO2 [Moles/Vol] 29.6 mmol/L Normal 21.0-32.0 [facility] Comment on above: Performed By: #### B MP #### [facility] [address] [address] [address] Shemar Armas Creatinine [Mass/Vol] 1.93 mg/dL Critically high 0.55-1.02 [facility] Comment on above: Performed By: #### B MP #### [facility] [address] [address] [address] Shemar Armas EGFR-AF BURKINAN 37 mL/min/1.73m2 Critically low >=60 [facility] Comment on above: Performed By: #### B MP #### [facility] [address] [address] [address] Shemar Armas EGFR-NON AF BURKINAN 30 mL/min/1.73m2 Critically low >=60 [facility] Comment on above: Performed By: #### B MP #### [facility] [address] [address] [address] Shemar Armas Glucose [Mass/Vol] 93 mg/dL Normal 74-106 [facility] Comment on above: Performed By: #### B MP #### [facility] [address] [address] [address] Shemar Armas Potassium [Moles/Vol] 4.1 mmol/L Normal 3.5-5.1 [facility] Comment on above: Performed By: #### B MP #### [facility] [address] [address] [address] Shemar Armas Sodium [Moles/Vol] 139 mmol/L Normal 136-145 [facility] Comment on above: Performed By: #### B MP #### [facility] [address] [place] [address] Dr. Shemar Armas Urea nitrogen [Mass/Vol] 22.0 mg/dL Critically high 7.0-18.0 [facility] Comment on above: Performed By: #### B MP #### [facility] [address] [place] [address] Dr. Shemar Armas Urea nitrogen/Creatinine [Mass ratio] 11.4 mg/mg Normal [facility] Comment on above: Performed By: #### B MP #### [facility] [address] [place] [address] Dr. Shemar Armas BNPon 06-29-2022 Natriuretic peptide B (Bld) [Mass/Vol] 159.0 pg/mL Normal <=450.0 [facility] Comment on above: Performed By: #### B MP #### [facility] [address] [place] [address] Dr. Shemar Armas CBC AUTO DIFFon 06-29-2022 BASO # 0.1 103/ul Normal 0.0-0.1 [facility] Comment on above: Performed By: #### P REG #### [facility] [address] [place] [address] Dr. Shemar Armas Basophils/100 WBC (Bld) 0.7 % Normal 0.2-2.0 [facility] Comment on above: Performed By: #### P REG #### [facility] [address] [place] [address] Dr. Shemar Armas EO # 0.1 103/ul Normal 0.0-0.7 [facility] Comment on above: Performed By: #### P REG #### [facility] [address] [place] [address] Dr. Shemar Armas Eosinophils/100 WBC (Bld) 1.4 % Normal 0.9-7.0 [facility] Comment on above: Performed By: #### P REG #### [facility] [address] [place] [address] Dr. Shemar Armas Erythrocyte distribution width (RBC) [Ratio] 14.5 % Normal 11.0-15.0 [facility] Comment on above: Performed By: #### P REG #### [facility] [address] [place] [address] Dr. Shemar Armas Hematocrit (Bld) [Volume fraction] 35.4 % Critically low 36.0-48.0 [facility] Comment on above: Performed By: #### P REG #### [facility] [address] [place] [address] Dr. Shemar Armas Hemoglobin (Bld) [Mass/Vol] 11.9 g/dL Critically low 12.0-16.0 [facility] Comment on above: Performed By: #### P REG #### [facility] [address] [place] [address] Dr. Shemar Armas IG # 0.05 10e3/ul Critically high 0.00-0.03 [facility] Comment on above: Performed By: #### P REG #### [facility] [address] [place] [address] Dr. Shemar Armas IG % 0.5 % Normal 0.0-0.5 [facility] Comment on above: Performed By: #### P REG #### [facility] [address] [place] [address] Dr. Shemar Armas LYMPH # 1.7 103/ul Normal 1.2-3.8 [facility] Comment on above: Performed By: #### P REG #### [facility] [address] [place] [address] Dr. Shemar Armas Lymphocytes/100 WBC (Bld) 17.3 % Critically low 20.5-60.0 [facility] Comment on above: Performed By: #### P REG #### [facility] [address] [place] [address] Dr. Shemar Armas MANUAL DIFF REQ NO Normal [facility] Comment on above: Performed By: #### P REG #### [facility] [address] [place] [address] Dr. Shemar Armas MCH (RBC) [Entitic mass] 29.5 pg Normal 26.7-34.0 [facility] Comment on above: Performed By: #### P REG #### [facility] [address] [place] [address] Dr. Shemar Armas MCHC (RBC) [Mass/Vol] 33.6 g/dL Normal 29.9-35.2 [facility] Comment on above: Performed By: #### P REG #### [facility] [address] [place] [address] Dr. Shemar Armas MCV (RBC) [Entitic vol] 87.8 fL Normal 81.0-99.0 [facility] Comment on above: Performed By: #### P REG #### [facility] [address] [place] [address] Dr. Shemar Armas MONO # 0.6 103/ul Normal 0.3-0.8 [facility] Comment on above: Performed By: #### P REG #### [facility] [address] [place] [address] Dr. Shemar Armas Monocytes/100 WBC (Bld) 6.3 % Normal 1.7-12.0 [facility] Comment on above: Performed By: #### P REG #### [facility] [address] [place] [address] Dr. Shemar Armas NEUT # 7.1 103/ul Critically high 1.4-6.5 [facility] Comment on above: Performed By: #### P REG #### [facility] [address] [place] [address] Dr. Shemar Armas Neutrophils/100 WBC (Bld) 73.8 % Normal 43.0-75.0 [facility] Comment on above: Performed By: #### P REG #### [facility] [address] [place] [address] Dr. Shemar Armas Platelet mean volume (Bld) [Entitic vol] 9.4 fL Critically low 9.5-13.5 [facility] Comment on above: Performed By: #### P REG #### [facility] [address] [place] [address] Dr. Shemar Armas PLT 350 103/ul Normal 150-450 [facility] Comment on above: Performed By: #### P REG #### [facility] [address] [place] [address] Dr. Shemar Armas RBC 4.03 106/ul Critically low 4.20-5.40 [facility] Comment on above: Performed By: #### P REG #### [facility] [address] [place] [address] Dr. Shemar Armas WBC 9.6 103/ul Normal 4.0-11.0 [facility] Comment on above: Performed By: #### P REG #### [facility] [address] [place] [address] Dr. Shemar Armas BASO # 0.0 103/ul Normal 0.0-0.1 [facility] Comment on above: Performed By: #### C BC #### [facility] [address] [place] [address] Dr. Shemar Armas Basophils/100 WBC (Bld) 0.6 % Normal 0.2-2.0 [facility] Comment on above: Performed By: #### C BC #### [facility] [address] [place] [address] Dr. Shemar Armas EO # 0.1 103/ul Normal 0.0-0.7 [facility] Comment on above: Performed By: #### C BC #### [facility] [address] [place] [address] Dr. Shemar Armas Eosinophils/100 WBC (Bld) 1.2 % Normal 0.9-7.0 [facility] Comment on above: Performed By: #### C BC #### [facility] [address] [place] [address] Dr. Shemar Armas Erythrocyte distribution width (RBC) [Ratio] 14.4 % Normal 11.0-15.0 [facility] Comment on above: Performed By: #### C BC #### [facility] [address] [place] [address] Dr. Shemar Armas Hematocrit (Bld) [Volume fraction] 29.3 % Critically low 36.0-48.0 [facility] Comment on above: Performed By: #### C BC #### [facility] [address] [place] [address] Dr. Shemar Armas Hemoglobin (Bld) [Mass/Vol] 9.9 g/dL Critically low 12.0-16.0 [facility] Comment on above: Performed By: #### C BC #### [facility] [address] [place] [address] Dr. Shemar Armas IG # 0.04 10e3/ul Critically high 0.00-0.03 [facility] Comment on above: Performed By: #### C BC #### [facility] [address] [place] [address] Dr. Shemar Armas IG % 0.6 % Critically high 0.0-0.5 [facility] Comment on above: Performed By: #### C BC #### [facility] [address] [place] [address] Dr. Shemar Armas LYMPH # 1.5 103/ul Normal 1.2-3.8 [facility] Comment on above: Performed By: #### C BC #### [facility] [address] [place] [address] Dr. Shemar Armas Lymphocytes/100 WBC (Bld) 20.1 % Critically low 20.5-60.0 [facility] Comment on above: Performed By: #### C BC #### [facility] [address] [place] [address] Dr. Shemar Armas MANUAL DIFF REQ NO Normal [facility] Comment on above: Performed By: #### C BC #### [facility] [address] [place] [address] Dr. Shemar Armas MCH (RBC) [Entitic mass] 29.9 pg Normal 26.7-34.0 [facility] Comment on above: Performed By: #### C BC #### [facility] [address] [place] [address] Dr. Shemar Armas MCHC (RBC) [Mass/Vol] 33.8 g/dL Normal 29.9-35.2 [facility] Comment on above: Performed By: #### C BC #### [facility] [address] [place] [address] Dr. Shemar Armas MCV (RBC) [Entitic vol] 88.5 fL Normal 81.0-99.0 [facility] Comment on above: Performed By: #### C BC #### [facility] [address] [place] [address] Dr. Shemar Armas MONO # 0.5 103/ul Normal 0.3-0.8 [facility] Comment on above: Performed By: #### C BC #### [facility] [address] [place] [address] Dr. Shemar Armas Monocytes/100 WBC (Bld) 7.5 % Normal 1.7-12.0 [facility] Comment on above: Performed By: #### C BC #### [facility] [address] [place] [address] Dr. Shemar Armas NEUT # 5.1 103/ul Normal 1.4-6.5 [facility] Comment on above: Performed By: #### C BC #### [facility] [address] [place] [address] Dr. Shemar Armas Neutrophils/100 WBC (Bld) 70.0 % Normal 43.0-75.0 [facility] Comment on above: Performed By: #### C BC #### [facility] [address] [place] [address] Dr. Shemar Armas Platelet mean volume (Bld) [Entitic vol] 9.2 fL Critically low 9.5-13.5 [facility] Comment on above: Performed By: #### C BC #### [facility] [address] [place] [address] Dr. Shemar Armas PLT 225 103/ul Normal 150-450 [facility] Comment on above: Performed By: #### C BC #### [facility] [address] [place] [address] Dr. Shemar Armas RBC 3.31 106/ul Critically low 4.20-5.40 [facility] Comment on above: Performed By: #### C BC #### [facility] [address] [place] [address] Dr. Shemar Armas WBC 7.2 103/ul Normal 4.0-11.0 [facility] Comment on above: Performed By: #### C BC #### [facility] [address] [place] [address] Dr. Shemar Armas IRONon 06-29-2022 Iron [Mass/Vol] 110.0 ug/dL Normal 50.0-170.0 [facility] Comment on above: Performed By: #### P REG #### [facility] [address] [place] [address] Dr. Shemar Armas PROF 14(COMP METB)on 022 Albumin [Mass/Vol] 4.0 g/dL Normal 3.4-5.0 [facility] Comment on above: Performed By: #### P REG #### [facility] [address] [place] [address] Dr. Shemar Armas Albumin/Globulin [Mass ratio] 1.1 {ratio} Normal [facility] Comment on above: Performed By: #### P REG #### [facility] [address] [place] [address] Dr. Shemar Armas ALP [Catalytic activity/Vol] 57 U/L Normal 46-116 [facility] Comment on above: Performed By: #### P REG #### [facility] [address] [place] [address] Dr. Shemar Armas ALT [Catalytic activity/Vol] 26 U/L Normal 14-59 [facility] Comment on above: Performed By: #### P REG #### [facility] [address] [address] [address] Shemar Armas Anion gap [Moles/Vol] 10.0 mmol/L Normal Th [facility] Comment on above: Performed By: #### P REG #### [facility] [address] [address] [address] Shemar Armas AST [Catalytic activity/Vol] 15 U/L Normal 15-37 [facility] Comment on above: Performed By: #### P REG #### [facility] [address] [address] [address] Shemar Armas Bilirubin [Mass/Vol] 0.2 mg/dL Normal 0.2-1.0 [facility] Comment on above: Performed By: #### P REG #### [facility] [address] [address] [address] Shemar Armas Calcium [Mass/Vol] 8.8 mg/dL Normal 8.5-10.1 [facility] Comment on above: Performed By: #### P REG #### [facility] [address] [address] [address] Shemar Armas Chloride [Moles/Vol] 105 mmol/L Normal 98-107 [facility] Comment on above: Performed By: #### P REG #### [facility] [address] [address] [address] Shemar Armas CO2 [Moles/Vol] 26.8 mmol/L Normal 21.0-32.0 [facility] Comment on above: Performed By: #### P REG #### [facility] [address] [address] [address] Shemar Armas Creatinine [Mass/Vol] 1.60 mg/dL Critically high 0.55-1.02 [facility] Comment on above: Performed By: #### P REG #### [facility] [address] [address] [address] Shemar Armas EGFR-AF BURKINAN 46 mL/min/1.73m2 Critically low >=60 [facility] Comment on above: Performed By: #### P REG #### [facility] [address] [address] [address] Shemar Armas EGFR-NON AF BURKINAN 38 mL/min/1.73m2 Critically low >=60 [facility] Comment on above: Performed By: #### P REG #### [facility] [address] [address] [address] Shemar Armas Globulin (S) [Mass/Vol] 3.5 g/dL Normal T [facility] Comment on above: Performed By: #### P REG #### [facility] [address] [address] [address] Shemar Armas Glucose [Mass/Vol] 98 mg/dL Normal 74-106 [facility] Comment on above: Performed By: #### P REG #### [facility] [address] [place] [address] Dr. Shemar Armas Potassium [Moles/Vol] 3.8 mmol/L Normal 3.5-5.1 [facility] Comment on above: Performed By: #### P REG #### [facility] [address] [place] [address] Dr. Shemar Armas Protein [Mass/Vol] 7.5 g/dL Normal 6.4-8.2 [facility] Comment on above: Performed By: #### P REG #### [facility] [address] [place] [address] Dr. Shemar Armas Sodium [Moles/Vol] 138 mmol/L Normal 136-[address] [facility] Comment on above: Performed By: #### P REG #### [facility] [address] [address] [address] Shemar Armas Urea nitrogen [Mass/Vol] 24.0 mg/dL Critically high 7.0-18.0 [facility] Comment on above: Performed By: #### P REG #### [facility] [address] [address] [address] Shemar Armas Urea nitrogen/Creatinine [Mass ratio] 15.0 mg/mg Normal [facility] Comment on above: Performed By: #### P REG #### [facility] [address] [place] [address] Dr. Shemar Armas Albumin [Mass/Vol] 3.3 g/dL Critically low 3.4-5.0 [facility] Comment on above: Performed By: #### B MP #### [facility] [address] [place] [address] Dr. Shemar Armas Albumin/Globulin [Mass ratio] 1.1 {ratio} Normal [facility] Comment on above: Performed By: #### B MP #### [facility] [address] [address] [address] Shemar Armas ALP [Catalytic activity/Vol] 55 U/L Normal 46-116 [facility] Comment on above: Performed By: #### B MP #### [facility] [address] [place] [address] Dr. Shemar Armas ALT [Catalytic activity/Vol] 21 U/L Normal 14-59 [facility] Comment on above: Performed By: #### B MP #### [facility] [address] [place] [address] Dr. Shemar Armas Anion gap [Moles/Vol] 8.1 mmol/L Normal [facility] Comment on above: Performed By: #### B MP #### [facility] [address] [place] [address] Dr. Shemar Armas AST [Catalytic activity/Vol] 13 U/L Critically low 15-37 [facility] Comment on above: Performed By: #### B MP #### [facility] [address] [place] [address] Dr. Shemar Armas Bilirubin [Mass/Vol] 0.1 mg/dL Critically low 0.2-1.0 [facility] Comment on above: Performed By: #### B MP #### [facility] [address] [place] [address] Dr. Shemar Armas Calcium [Mass/Vol] 7.5 mg/dL Critically low 8.5-10.1 Th [facility] Comment on above: Performed By: #### B MP #### [facility] [address] [place] [address] Dr. Shemar Armas Chloride [Moles/Vol] 107 mmol/L Normal 98-107 [facility] Comment on above: Performed By: #### B MP #### [facility] [address] [address] [address] Shemar Armas CO2 [Moles/Vol] 24.5 mmol/L Normal 21.0-32.0 [facility] Comment on above: Performed By: #### B MP #### [facility] [address] [address] [address] Shemar Armas Creatinine [Mass/Vol] 2.03 mg/dL Critically high 0.55-1.02 [facility] Comment on above: Performed By: #### B MP #### [facility] [address] [address] [address] Shemar Armas EGFR-AF BURKINAN 35 mL/min/1.73m2 Critically low >=60 [facility] Comment on above: Performed By: #### B MP #### [facility] [address] [address] [address] Shemar Armas EGFR-NON AF BURKINAN 29 mL/min/1.73m2 Critically low >=60 [facility] Comment on above: Performed By: #### B MP #### [facility] [address] [address] [address] Shemar Armas Globulin (S) [Mass/Vol] 2.9 g/dL Normal [facility] Comment on above: Performed By: #### B MP #### [facility] [address] [address] [address] Shemar Armas Glucose [Mass/Vol] 111 mg/dL Critically high 74-106 [facility] Comment on above: Performed By: #### B MP #### [facility] [address] [address] [address] Shemar Armas Potassium [Moles/Vol] 3.6 mmol/L Normal 3.5-5.1 [facility] Comment on above: Performed By: #### B MP #### [facility] [address] [address] [address] Shemar Armas Protein [Mass/Vol] 6.2 g/dL Critically low 6.4-8.2 Th e [facility] Comment on above: Performed By: #### B MP #### [facility] [address] [address] [address] Shemar Armas Sodium [Moles/Vol] 136 mmol/L Normal 136-145 [facility] Comment on above: Performed By: #### B MP #### [facility] [address] [address] [address] Shemar Armas Urea nitrogen [Mass/Vol] 28.0 mg/dL Critically high 7.0-18.0 [facility] Comment on above: Performed By: #### B MP #### [facility] [address] [address] [address] Shemar Armas Urea nitrogen/Creatinine [Mass ratio] 13.8 mg/mg Normal [facility] Comment on above: Performed By: #### B MP #### [facility] [address] [address] [address] Shemar Armas TROPONIN, HIGH SENSITIVITYon 06-29-2022 HSTROP 4.8 pg/mL Normal 4.0-51.3 [facility] Comment on above: Result Comment: CUT- OFF POINTS HAVE BEEN ESTABLISHED BASED ON THE FOURTH UNIVERSAL DEFINITIONS OF MYOCARDIAL INFARCTION. THE UPPER REFERENCE LIMIT (URL) OF TROPONIN, DEFINED THE 99TH PERCENTILE OF cTnI DISTRIBUTION IN A REFERENCE POPULATION, HAS BEEN CONFIRMED THE DECISION THRESHOLD FOR VT DIAGNOSIS. Performed By: #### B MP #### [facility] [address] [address] [address] Shemar Armas INSULINon 04-27-2022 Insulin 15.8 uIU/mL Normal 2.6-24.9 [facility] Comment on above: Performed By: #### I NSULIN #### [facility] [address] [address] [address] Shemar Armas T4, T3U, FTI LABCORPon 04-27 Free Thyroxine Index 3.1 Normal 1.2-4.9 [facility] Comment on above: Performed By: #### T HYLC #### [facility] [address] [address] [address] Shemar Armas T3 Uptake 31 % Normal 24-39 [facility] Comment on above: Performed By: #### T HYLC #### [facility] [address] [place] [address] Dr. Shemar Armas T4 [Mass/Vol] 10.1 ug/dL Normal 4.5-12.0 [facility] Comment on above: Performed By: #### T HYLC #### [facility] [address] [place] [address] Dr. Shemar Armas CBC AUTO DIFFon 04-26-2022 BASO # 0.1 103/ul Normal 0.0-0.1 [facility] Comment on above: Performed By: #### B MP #### [facility] [address] [place] [address] Dr. Shemar Armas Basophils/100 WBC (Bld) 0.7 % Normal 0.2-2.0 [facility] Comment on above: Performed By: #### B MP #### [facility] [address] [place] [address] Dr. Shemar Armas EO # 0.1 103/ul Normal 0.0-0.7 [facility] Comment on above: Performed By: #### B MP #### [facility] [address] [place] [address] Dr. Shemar Armas Eosinophils/100 WBC (Bld) 0.9 % Normal 0.9-7.0 [facility] Comment on above: Performed By: #### B MP #### [facility] [address] [place] [address] Dr. Shemar Armas Erythrocyte distribution width (RBC) [Ratio] 13.7 % Normal 11.0-15.0 [facility] Comment on above: Performed By: #### B MP #### [facility] [address] [place] [address] Dr. Shemar Armas Hematocrit (Bld) [Volume fraction] 41.8 % Normal 36.0-48.0 [facility] Comment on above: Performed By: #### B MP #### [facility] [address] [place] [address] Dr. Shemar Armas Hemoglobin (Bld) [Mass/Vol] 13.9 g/dL Normal 12.0-16.0 [facility] Comment on above: Performed By: #### B MP #### [facility] [address] [place] [address] Dr. Shemar Armas IG # 0.03 10e3/ul Normal 0.00-0.03 [facility] Comment on above: Performed By: #### B MP #### [facility] [address] [place] [address] Dr. Shemar Armas IG % 0.3 % Normal 0.0-0.5 [facility] Comment on above: Performed By: #### B MP #### [facility] [address] [place] [address] Dr. Shemar Armas LYMPH # 1.8 103/ul Normal 1.2-3.8 [facility] Comment on above: Performed By: #### B MP #### [facility] [address] [place] [address] Dr. Shemar Armas Lymphocytes/100 WBC (Bld) 21.0 % Normal 20.5-60.0 [facility] Comment on above: Performed By: #### B MP #### [facility] [address] [place] [address] Dr. Shemar Armas MANUAL DIFF REQ NO Normal [facility] Comment on above: Performed By: #### B MP #### [facility] [address] [place] [address] Dr. Shemar Armas MCH (RBC) [Entitic mass] 28.8 pg Normal 26.7-34.0 [facility] Comment on above: Performed By: #### B MP #### [facility] [address] [place] [address] Dr. Shemar Armas MCHC (RBC) [Mass/Vol] 33.3 g/dL Normal 29.9-35.2 [facility] Comment on above: Performed By: #### B MP #### [facility] [address] [place] [address] Dr. Shemar Armas MCV (RBC) [Entitic vol] 86.7 fL Normal 81.0-99.0 [facility] Comment on above: Performed By: #### B MP #### [facility] [address] [place] [address] Dr. Shemar Armas MONO # 0.7 103/ul Normal 0.3-0.8 [facility] Comment on above: Performed By: #### B MP #### [facility] [address] [place] [address] Dr. Shemar Armas Monocytes/100 WBC (Bld) 7.9 % Normal 1.7-12.0 [facility] Comment on above: Performed By: #### B MP #### [facility] [address] [place] [address] Dr. Shemar Armas NEUT # 6.0 103/ul Normal 1.4-6.5 [facility] Comment on above: Performed By: #### B MP #### [facility] [address] [place] [address] Dr. Shemar Armas Neutrophils/100 WBC (Bld) 69.2 % Normal 43.0-75.0 [facility] Comment on above: Performed By: #### B MP #### [facility] [address] [place] [address] Dr. Shemar Armas Platelet mean volume (Bld) [Entitic vol] 9.7 fL Normal 9.5-13.5 [facility] Comment on above: Performed By: #### B MP #### [facility] [address] [place] [address] Dr. Shemar Armas PLT 322 103/ul Normal 150-450 [facility] Comment on above: Performed By: #### B MP #### [facility] [address] [place] [address] Dr. Shemar Armas RBC 4.82 106/ul Normal 4.20-5.40 [facility] Comment on above: Performed By: #### B MP #### [facility] [address] [place] [address] Dr. Shemar Armas WBC 8.7 103/ul Normal 4.0-11.0 [facility] Comment on above: Performed By: #### B MP #### [facility] [address] [address] [address] Shemar Armsa GLYCOHEMOGLOBIN A1Con 2021 ADA RECOMMENDATION SEE BELOW Normal [facility] Comment on above: Result Comment: ADA RECOMMENDED LIMIT 4.0 - 6.0 ADA THERAPEUTIC TARGET < 7.0 ACTION SUGGESTED > 7.0 Performed By: #### P REG #### [facility] [address] [address] [address] Shemar Armas Glucose [Mass/Vol] 108 mg/dL Normal [facility] Comment on above: Performed By: #### P REG #### [facility] [address] [address] [address] Shemar Armas HbA1c (Bld) [Mass fraction] 5.4 % Normal 4.5-6.2 [facility] Comment on above: Performed By: #### P REG #### [facility] [address] [place] [address] Dr. Shemar Armas IRONon 04-26-2022 Iron [Mass/Vol] 55.0 ug/dL Normal 50.0-170.0 [facility] Comment on above: Performed By: #### I CYNDI #### [facility] [address] [place] [address] Dr. Shemar Armas LIPID PROFILEon 04-26-2022 CHOL-HDL RATIO NORM SEE BELOW Normal [facility] Comment on above: Result Comment: 3.3 - 4.4 LOW RISK 4.4 - 7.1 AVERAGE RISK 7.1 - 11.0 MODERATE RISK >11.0 HIGH RISK Performed By: #### P REG #### [facility] [address] [place] [address] Dr. Shemar Armas Cholesterol [Mass/Vol] 205 mg/dL Critically high <=200 [facility] Comment on above: Performed By: #### P REG #### [facility] [address] [place] [address] Dr. Shemar Armas Cholesterol in HDL [Mass/Vol] 57 mg/dL Normal 40-60 [facility] Comment on above: Performed By: #### P REG #### [facility] [address] [address] [address] Shemar Armas Cholesterol in LDL [Mass/Vol] 126.8 mg/dL Normal [facility] Comment on above: Performed By: #### P REG #### [facility] [address] [address] [address] Shemar Armas Cholesterol.total/Viktoriya sterol in HDL [Mass ratio] 3.6 {ratio} Normal [facility] [facility] Comment on above: Performed By: #### P REG #### [facility] [address] [address] [address] Shemar Armas HDL NORMAL > or = 60 mg/dl - LOW CARDIOVASCULAR RISK <40 mg/dl - HIGH CARDIOVASCULAR RISK Normal [facility] Comment on above: Performed By: #### P REG #### [facility] [address] [place] [address] Dr. Shemar Armas LDL CALC NORMAL SEE BELOW Normal [facility] Comment on above: Result Comment: <100 mg/dl OPTIMAL 100 - 129 mg/dl NEAR OR ABOVE OPTIMAL 130 - 159 mg/dl BORDERLINE HIGH 160 - 189 mg/dl HIGH >190 mg/dl VERY HIGH Performed By: #### P REG #### [facility] [address] [place] [address] Dr. Shemar Armas Triglyceride [Mass/Vol] 106 mg/dL Normal <=150 [facility] Comment on above: Performed By: #### P REG #### [facility] [address] [address] [address] Shemar Armas VLDL CALC 21.2 mg/dL Normal [facility] Comment on above: Performed By: #### P REG #### [facility] [address] [address] [address] Shemar Armas PROF 14(COMP METB)on 022 Albumin [Mass/Vol] 4.3 g/dL Normal 3.4-5.0 [facility] Comment on above: Performed By: #### T SH, CMP, LIPID #### [facility] [address] [address] [address] Shemar Armas Albumin/Globulin [Mass ratio] 1.2 {ratio} Normal [facility] Comment on above: Performed By: #### T SH, CMP, LIPID #### [facility] [address] [place] [address] Dr. Shemar Armas ALP [Catalytic activity/Vol] 62 U/L Normal 46-116 [facility] Comment on above: Performed By: #### T SH, CMP, LIPID #### [facility] [address] [place] [address] Dr. Shemar Armas ALT [Catalytic activity/Vol] 34 U/L Normal 14-59 [facility] Comment on above: Performed By: #### T SH, CMP, LIPID #### [facility] [address] [place] [address] Dr. Shemar Armas Anion gap [Moles/Vol] 13.7 mmol/L Normal [facility] Comment on above: Performed By: #### T SH, CMP, LIPID #### [facility] [address] [place] [address] Dr. Shemar Armas AST [Catalytic activity/Vol] 22 U/L Normal 15-37 [facility] Comment on above: Performed By: #### T SH, CMP, LIPID #### [facility] [address] [place] [address] Dr. Shemar Armas Bilirubin [Mass/Vol] 0.3 mg/dL Normal 0.2-1.0 [facility] Comment on above: Performed By: #### T SH, CMP, LIPID #### [facility] [address] [place] [address] Dr. Shemar Armas Calcium [Mass/Vol] 9.1 mg/dL Normal 8.5-10.1 [facility] Comment on above: Performed By: #### T SH, CMP, LIPID #### [facility] [address] [place] [address] Dr. Shemar Armas Chloride [Moles/Vol] 98 mmol/L Normal 98-107 [facility] Comment on above: Performed By: #### T SH, CMP, LIPID #### [facility] [address] [place] [address] Dr. Shemar Armas CO2 [Moles/Vol] 29.9 mmol/L Normal 21.0-32.0 [facility] Comment on above: Performed By: #### T SH, CMP, LIPID #### [facility] [address] [address] [address] Shemar Armas Creatinine [Mass/Vol] 1.27 mg/dL Critically high 0.55-1.02 [facility] Comment on above: Performed By: #### T SH, CMP, LIPID #### [facility] [address] [address] [address] Shemar Armas EGFR-AF BURKINAN 59 mL/min/1.73m2 Critically low >=60 [facility] Comment on above: Performed By: #### T SH, CMP, LIPID #### [facility] [address] [place] [address] Dr. Shemar Armas EGFR-NON AF BURKINAN 49 mL/min/1.73m2 Critically low >=60 [facility] Comment on above: Performed By: #### T SH, CMP, LIPID #### [facility] [address] [address] [address] Shemar Armas Globulin (S) [Mass/Vol] 3.6 g/dL Normal [facility] Comment on above: Performed By: #### T SH, CMP, LIPID #### [facility] [address] [place] [address] Dr. Shemar Armas Glucose [Mass/Vol] 92 mg/dL Normal 74-106 [facility] Comment on above: Performed By: #### T SH, CMP, LIPID #### [facility] [address] [place] [address] Dr. Shemar Armas Potassium [Moles/Vol] 3.6 mmol/L Normal 3.5-5.1 [facility] Comment on above: Performed By: #### T SH, CMP, LIPID #### [facility] [address] [address] [address] Shemar Armas Protein [Mass/Vol] 7.9 g/dL Normal 6.4-8.2 [facility] Comment on above: Performed By: #### T SH, CMP, LIPID #### [facility] [address] [place], [place] [address] Dr. Shemar Armas Sodium [Moles/Vol] 138 mmol/L Normal 136-145 [facility] Comment on above: Performed By: #### T SH, CMP, LIPID #### [facility] [address] [address] [address] Shemar Armas Urea nitrogen [Mass/Vol] 16.0 mg/dL Normal 7.0-18.0 [facility] Comment on above: Performed By: #### T SH, CMP, LIPID #### [facility] [address] [address] [address] Shemar Armas Urea nitrogen/Creatinine [Mass ratio] 12.6 mg/mg Normal [facility] Comment on above: Performed By: #### T SH, CMP, LIPID #### [facility] [address] [address] [address] Shemar Armas TSHon 04-26-2022 TSH 3.031 uIU/mL Normal 0.358-3.740 [facility] Comment on above: Performed By: #### P REG #### [facility] [address] [address] [address] Shemar Armas Vital Signs Date Time Vital Sign Value Performing Clinician Facility 02-01-2025 13:41-0400 Body height 160 cm Edis Morales DO Work Phone: [facility] 02-01-2025 13:41-0400 Body mass index (BMI) [Ratio] 48.54 kg/m2 Edis Morales DO Work Phone: [facility] 02-01-2025 13:41-0400 Body weight 124.29 kg Edis Morales DO Work Phone: [facility] 10-26-2024 13:18-0500 Body height 160 cm Edis Morales DO Work Phone: [facility] 10-26-2024 13:18-0500 Body mass index (BMI) [Ratio] 48.36 kg/m2 Edis Morales DO Work Phone: [facility] 10-26-2024 13:18-0500 Body weight 123.83 kg Edis Murcek DO Work Phone: [facility] 09-21-2024 13:40-0500 Body height 160 cm Edis Murcek DO Work Phone: [facility] 09-21-2024 13:40-0500 Body mass index (BMI) [Ratio] 48.36 kg/m2 Edis Murcek DO Work Phone: [facility] 09-21-2024 13:40-0500 Body weight 123.83 kg Edis Murcek DO Work Phone: [facility] 09-01-2024 09:39-0500 Body height 160 cm Edis Murcek DO Work Phone: [facility] 09-01-2024 09:39-0500 Body mass index (BMI) [Ratio] 48.36 kg/m2 Edis Murcek DO Work Phone: [facility] 09-01-2024 09:39-0500 Body weight 123.83 kg Edis Murcek DO Work Phone: [facility] 10-02-2022 16:00-0500 Body height 160.02 cm Bonnie Jeffrey Other [facility] Other 10-02-2022 16:00-0500 Body mass index (BMI) [Ratio] 42.69 kg/m2 Bonniemelany Jeffrey Other [facility] Other 10-02-2022 16:00-0500 Body weight 109.32 kg Bonnie Jeffrey Other [facility] Other 09-28-2022 15:55-0500 Diastolic blood pressure 60 mm[Hg] MD Felipe Brooke Work Phone: [facility] 09-28-2022 15:55-0500 Heart rate 76 /min MD Felipe Brooke Work Phone: [facility] 09-28-2022 15:55-0500 Respiratory rate 16 /min MD Felipe Brooke Work Phone: [facility] 09-28-2022 15:55-0500 SaO2% (BldA) [Mass fraction] 98 % MD Felipe Brooke Work Phone: [facility] 09-28-2022 15:55-0500 Systolic blood pressure 123 mm[Hg] MD Felipe Brooke Work Phone: [facility] 09-28-2022 14:33-0500 Body height 162.56 cm MD Felipe Brooke Work Phone: [facility] 09-28-2022 14:33-0500 Body mass index (BMI) [Ratio] 41.6 kg/m2 MD Felipe Brooke Work Phone: [facility] 09-28-2022 14:33-0500 Body weight 110 kg MD Felipe Brooke Work Phone: [facility] 09-28-2022 12:25-0500 Body temperature 98 [degF] MD Felipe Brooke Work Phone: [facility] 07-30-2022 15:29-0500 Blood Pressure Location Sanjay MENENDEZL [facility] 07-30-2022 15:29-0500 Diastolic blood pressure 83 mm[Hg] Sanjay MENENDEZL [facility] 07-30-2022 15:29-0500 Heart rate 75 /min Sanjay NILL [facility] 07-30-2022 15:29-0500 Respiratory rate 16 /min Sanjay MENENDEZL [facility] 07-30-2022 15:29-0500 Systolic blood pressure 124 mm[Hg] Sanjay MENENDEZL [facility] Encounters Encounter Date Encounter Type Care Provider Facility Start: 02-01-2025 End: 02-01-2025 Bamboo flowsheet Edis Morales DO Work Phone: [facility] Start: 02-01-2025 End: 02-01-2025 Bamboo flowsheet Edis Morales DO Work Phone: [facility] [place] Start: 02-01-2025 End: 02-01-2025 Office outpatient visit 25 minutes Edis Morales DO Work Phone: [facility] [place] Comment on above: 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); Status post partial thyroidectomy (CMS/HCC) Start: 02-01-2025 End: 02-01-2025 ambulatory EDIS Gilda MYRNAAMADOUChava Not Available Start: 10-26-2024 End: 10-26-2024 Bamboo flowsheet Edis Morales DO Work Phone: [facility] [place] Start: 10-26-2024 End: 10-26-2024 Bamboo flowsheet Edis Morales DO Work Phone: [facility] [place] Start: 10-26-2024 End: 10-26-2024 Postop follow up visit related to original px Edis Morales DO Work Phone: [facility] [place] Comment on above: 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); Status post partial thyroidectomy (CMS/HCC) Start: 10-26-2024 End: 10-26-2024 ambulatory EDIS MORALES Not Available Start: 09-21-2024 End: 09-21-2024 Bamboo flowsheet Edis Gilda Morales DO Work Phone: [facility] [place] Start: 09-21-2024 End: 09-21-2024 Bamboo flowsheet [...] Start: 09-14-2024 End: 09-14-2024 ambulatory Felipe Brooke Facility:[facility] Start: 09-07-2024 End: 09-07-2024 External Result Encounter Edis Morales DO Work Phone: [facility] Unsolicited Start: 09-07-2024 End: 09-07-2024 External Result Encounter Edis Morales DO Work Phone: [facility] External [facility] Unsolicited Start: 09-07-2024 End: 09-07-2024 Patient encounter procedure Felipe Brooke MD Work Phone: [facility] Work Phone: Start: 09-07-2024 End: 09-07-2024 ambulatory Felipe Brooke MD Work Phone: [facility] Work Phone: Start: 09-07-2024 Encounter for preprocedural laboratory examination Edis Morales [facility] Start: 09-01-2024 End: 09-01-2024 Bamboo flowsheet Edis Morales DO Work Phone: [facility] [place] Start: 09-01-2024 End: 09-01-2024 Bamboo flowsheet Edis Morales DO Work Phone: [facility] [place] Start: 09-01-2024 End: 09-01-2024 Office outpatient new 60 minutes Edis Morales DO Work Phone: [facility] [place] Comment on above: Thyroid nodule (CMS/ HCC) Start: 09-01-2024 End: 09-01-2024 ambulatory EDIS MORALES Not Available Start: 08-03-2024 End: 08-03-2024 ambulatory Felipe Brooke Facility:[facility] Start: 08-03-2024 End: 08-03-2024 Departed Referred Felipe Brooke MD Work Phone: [facility] Start: 06-12-2023 End: 06-12-2023 ambulatory Bonnie Calvey Other [facility] Other Start: 06-12-2023 Office outpatient vi sit 15 minutes Bonnie Calvey [facility] Start: 03-20-2023 End: 03-20-2023 ambulatory Bonnie Calvey Other [facility] Other Start: 03-20-2023 Office outpatient vi sit 15 minutes Bonnie Calvey [facility] Start: 01-24-2023 End: 01-24-2023 ambulatory Bonnie Calvey Other [facility] Other Start: 01-24-2023 Office outpatient vi sit 15 minutes Bonnei Calvey [facility] Start: 11-13-2022 End: 11-13-2022 Patient encounter procedure MD Felipe Brooke Work Phone: [facility] Start: 11-13-2022 End: 11-13-2022 ambulatory MD Felipe Brooke Work Phone: [facility] Work Phone: Start: 11-13-2022 Postop follow up vis it related to original px Bonnie Calvey [facility] Start: 10-23-2022 End: 10-23-2022 ambulatory Bonnie Calvey Other [facility] Other Start: 10-23-2022 Postop follow up vis it related to original px Bonnie Calvey [facility] Start: 10-10-2022 End: 10-11-[address] FELIPE BROOKE . Facility: Start: 10-09-2022 End: 10-09-2022 ambulatory Bonnie Calvey Other [facility] Other Start: 10-09-2022 Postop follow up vis it related to original px Bonnie Calvey [facility] Start: 10-02-2022 End: 10-02-2022 ambulatory Bonnie Calvey Other [facility] Other Start: 10-02-2022 Postop follow up vis it related to original px Bonnie Calvey [facility] Start: 10-02-2022 Telephone encounter Bonnie Calvey [facility] Start: 09-28-2022 End: 09-28-2022 Admission to same day surgery center MD Felipe Brooke Work Phone: [facility] [place] Start: 09-26-2022 End: 09-26-2022 ambulatory MD Felipe Brooke Work Phone: [facility] Work Phone: Start: 09-26-2022 End: 09-26-2022 Patient encounter procedure MD Felipe Brooke Work Phone: [facility] Work Phone: Start: 09-25-2022 End: 09-25-[address] FELIPE BROOKE . Facility:[facility] Start: 09-21-2022 ambulatory Sanjay ZUÑIGA Facility :[facility] Start: 09-14-2022 Encounter for preprocedural laboratory examination DR SANJAY ZUÑIGA . [facility] Start: 09-12-2022 End: 09-13-2022 ambulatory Sanjay ZUÑIGA Facility:CD:[id number] Start: 09-11-2022 End: 10-06-[address] FELIPE BROOKE . Facility:[facility] Start: 09-07-2022 End: 09-08-[address] FELIPE BROOKE . Facility:[facility] Start: 09-07-2022 End: 09-08-2022 Encounter for preprocedural laboratory examination DR FELIPE BROOKE . Facility:[facility] Start: 07-30-2022 End: 07-31-2022 ambulatory Felipe Brooke PROVIDER Facility:[facility] Start: 07-30-2022 End: 07-30-2022 Patient encounter procedure Sanjay ZUÑIGA [facility] [place] Start: 07-10-2022 ambulatory Felipe Brooke PROVIDER Facility:[facility] Start: 07-09-2022 End: 07-10-[address] [...] abnormal findings DR FELIPE BROOKE . [facility] Start: 04-26-2022 End: 04-27-[address] FELIPE BROOKE . Facility:[facility] Start: 04-26-2022 End: 04-27-2022 Encounter for general adult medical examination without abnormal findings DR FELIPE BROOKE . Facility:[facility] Start: 02-15-2022 End: 03-21-[address] FELIPE BROOKE . Facility:[facility] Procedures Date Procedure Procedure [...] device Sanjay MENENDEZL Extraction of wisdom tooth Amber cornejo NILL PILONIDAL CYST EXCISION Messi ael NILL TARSAL TUNNEL RELEASE 1 Messi ael NILL Comment on above: LEFT Tonsillectomy Sanjay MENENDEZL Plan of Treatment Date Care Activity Detail Author Start: 08-09-2025 End: 02-01-2026 Thyroglobulin Thyroglobulin Lab Routine Status post partial thyroidectomy ([facility]/HCC) Expected: 08/09/2025, Expires: 02/01/2026 [facility] Comment on above: Expected: 08/09/2025 , Expires: 02/01/2026 Start: 08-09-2025 End: 02-01-2026 Thyrotropin [Units/volume] in Serum or Plasma [facility] Comment on above: Expected: 08/09/2025 , Expires: 02/01/2026 Start: 08-09-2025 End: 02-01-2026 Triiodothyronine (T3) [Mass/volume] in Serum or Plasma T3 Lab Routine Status post partial thyroidectomy ([facility]/HCC) Expected: 08/09/2025, Expires: 02/01/2026 [facility] Comment on above: Expected: 08/09/2025 , Expires: 02/01/2026 Start: 08-09-2025 End: 08-09-2025 Patient encounter procedure 08/09/2025 1:30 PM EST Office Visit [facility] [address] [place] [id number] Edis Morales DO [address] [place] [address] [facility] Start: 04-05-2025 End: 02-01-2026 Thyroglobulin Thyroglobulin Lab Routine Status post partial thyroidectomy (CMS/HCC) Expected: 04/05/2025, Expires: 02/01/2026 [facility] Work Phone: Comment on above: Expected: 04/05/2025 , Expires: 02/01/2026 Start: 04-05-2025 End: 02-01-2026 Thyrotropin [Units/volume] in Serum or Plasma [facility] Comment on above: Expected: 04/05/2025 , Expires: 02/01/2026 Start: 04-05-2025 End: 02-01-2026 Triiodothyronine (T3) [Mass/volume] in Serum or Plasma T3 Lab Routine Status post partial thyroidectomy (CMS/HCC) Expected: 04/05/2025, Expires: 02/01/2026 [facility] Comment on above: Expected: 04/05/2025 , Expires: 02/01/2026 Start: 02-01-2025 End: 02-01-2025 Patient encounter procedure [facility] Comment on above: Arrived Start: 01-26-2025 End: 10-26-2025 Thyroglobulin Thyroglobulin Lab Routine Malignant neoplasm of thyroid gland (CMS/HCC) Status post partial thyroidectomy (CMS/HCC) Expected: 01/26/2025 (Approximate), Expires: 10/26/2025 [facility] Comment on above: Expected: 01/26/2025 (Approximate), Expires: 10/26/2025 Start: 01-26-2025 End: 10-26-2025 Thyrotropin [Units/volume] in Serum or Plasma [facility] Comment on above: Expected: 01/26/2025 (Approximate), Expires: 10/26/2025 Start: 01-26-2025 End: 10-26-2025 Triiodothyronine (T3) [Mass/volume] in Serum or Plasma T3 Lab Routine Malignant neoplasm of thyroid gland (CMS/HCC) Status post partial thyroidectomy (CMS/HCC) Expected: 01/26/2025 (Approximate), Expires: 10/26/2025 [facility] Comment on above: Expected: 01/26/2025 (Approximate), Expires: 10/26/2025 Start: 12-10-2024 End: 10-26-2025 Thyroglobulin Thyroglobulin Lab Routine Malignant neoplasm of thyroid gland (CMS/HCC) Status post partial thyroidectomy (CMS/HCC) Expected: 12/10/2024 (Approximate), Expires: 10/26/2025 [facility] Comment on above: Expected: 12/10/2024 (Approximate), Expires: 10/26/2025 Start: 12-10-2024 End: 10-26-2025 Thyrotropin [Units/volume] in Serum or Plasma [facility] Comment on above: Expected: 12/10/2024 (Approximate), Expires: 10/26/2025 Start: 12-10-2024 End: 10-26-2025 Triiodothyronine (T3) [Mass/volume] in Serum or Plasma T3 Lab Routine Malignant neoplasm of thyroid gland (CMS/HCC) Status post partial thyroidectomy (CMS/HCC) Expected: 12/10/2024 (Approximate), Expires: 10/26/2025 [facility] Work Phone: Comment on above: Expected: 12/10/2024 (Approximate), Expires: 10/26/2025 Start: 10-26-2024 End: 10-26-2024 Patient encounter procedure [facility] [place] Comment on above: Arrived Start: 10-19-2024 End: 09-21-2025 Thyroglobulin Thyroglobulin Lab Routine Status post partial thyroidectomy (CMS/HCC) Expected: 10/19/2024 (Approximate), Expires: 09/21/2025 [facility] Comment on above: Expected: 10/19/2024 (Approximate), Expires: 09/21/2025 Start: 10-19-2024 End: 09-21-2025 Thyrotropin [Units/volume] in Serum or Plasma [facility] Work Phone: Comment on above: Expected: 10/19/2024 (Approximate), Expires: 09/21/2025 Start: 10-19-2024 End: 09-21-2025 Triiodothyronine (T3) [Mass/volume] in Serum or Plasma T3 Lab Routine Status post partial thyroidectomy (CMS/HCC) Expected: 10/19/2024 (Approximate), Expires: 09/21/2025 [facility] Comment on above: Expected: 10/19/2024 (Approximate), Expires: 09/21/2025 Start: 09-21-2024 End: 09-21-2024 Patient encounter procedure [facility] Comment on above: Arrived Start: 09-01-2024 End: 09-01-2025 Calcium [Mass/volume] in Serum or Plasma Calcium Lab Routine Thyroid nodule (CMS/HCC) Expected: 09/01/2024 (Approximate), Expires: 09/01/2025 [facility] Comment on above: Expected: 09/01/2024 (Approximate), Expires: 09/01/2025 Start: 09-01-2024 End: 09-01-2025 Parathyrin.intact [Mass/volume] in Serum or Plasma PTH, intact Lab Routine Thyroid nodule (CMS/HCC) Expected: 09/01/2024 (Approximate), Expires: 09/01/2025 [facility] Work Phone: Comment on above: Expected: 09/01/2024 (Approximate), Expires: 09/01/2025 Start: 09-01-2024 End: 09-01-2025 Thyrotropin [Units/volume] in Serum or Plasma TSH Lab Routine Thyroid nodule (CMS/HCC) Expected: 09/01/2024 (Approximate), Expires: 09/01/2025 [facility] Comment on above: Expected: 09/01/2024 (Approximate), Expires: 09/01/2025 Start: 09-01-2024 End: 09-01-2024 Patient encounter procedure 09/01/2024 9:45 AM EST Office Visit [facility] [address] [place] [address] Edis Morales, DO [address] [place] [address] Arrived [facility] Comment on above: Arrived Start: 09-28-2022 [facility] Start: 09-28-2022 [facility] Basic metabolic 1998 panel - Serum or Plasma Basic metabolic panel Lab Routine 09/07/2024 11:55 AM EST [facility] Work Phone: Patient referral [facility] Work Phone: Immunizations Immunization Date Immunization Notes Care Provider Fa cility 05-27-2024 Seasonal, trivalent, recombinant, injectable influenza vaccine, preservative free Edis Morales DO Work Phone: [facility] 05-05-2021 influenza virus vaccine, unspecified formulation Edis Morales DO Work Phone: [facility] 04-28-2020 influenza, injectable, quadrivalent, preservative free Edis Morales DO Work Phone: [facility] NEGATED: Highlighted row has not occurred!07-30-2022 influenza virus vaccine, unspecified formulation Sanjay ZUÑIGA [facility] [place] Payers Date Payer Category Payer Self-pay 2022 Private Health Insurance [employer] [id number] 2022 Unknown [id number] 1990 Unknown [id number] 2.16.840.1.442323.3.579.2. 727 1990 Unknown [id number] 2.16.840.1.424420.3.579.2. 727 1990 Unknown [id number] 2.16.840.1.079026.3.579.2. 727 1990 Unknown [id number] 2.16.840.1.236582.3.579.2. 727 1990 Unknown [id number] 2.16.840.1.351129.3.579.2. 727 1990 Unknown [id number] 2.16.840.1.028534.3.579.2. 593 1990 Unknown [id number] 2.16.840.1.800945.3.579.2. 593 1990 Unknown [id number] 2.16.840.1.476662.3.579.2. 593 1990 Unknown [id number] 2.16.840.1.419753.3.579.2. 593 1990 Unknown [id number] 2.16.840.1.447323.3.579.2. 593 1990 Unknown [id number] 2.16.840.1.637822.3.579.2. 593 1990 Unknown [id number] 2.16.840.1.894132.3.579.2. 593 1990 Unknown [id number] 2.16.840.1.201913.3.579.2. 593 1990 Unknown [id number] 2.16.840.1.515911.3.579.2. 593 1990 Unknown [id number] 2.16.840.1.868408.3.579.2. 593 1990 Unknown [id number] 2.16.840.1.108284.3.579.2. 593 1990 Unknown [id number] 2.16.840.1.077488.3.579.2. 593 1990 Unknown [id number] 2.16.840.1.201881.3.579.2. 1259 1990 Unknown [id number] 2.16.840.1.735623.3.579.2. 1259 1990 Unknown [id number] 1990 Unknown [id number] 1990 Unknown [id number] [id number] 1959 Unknown [id number] Unknown [id number] Unknown [id number] Unknown [id number] Social History Date Type Detail Facility Start: 07-30-2022 End: 09-01-2024 Tobacco smoking status Never smoked tobacco (finding) [facility] Tobacco smoking status Never [facility] Start: 09-01-2024 End: 02-01-2025 Sex Assigned At Female [facility] Start: 1990 Sex Assigned At Female F [facility] Start: 09-01-2024 Tobacco use and exposure Smokeless tobacco non-user [facility] Start: 09-01-2024 End: 02-01-2025 Alcoholic beverage intake Ex-drinker (finding) [facility] Start: 09-01-2024 End: 02-01-2025 History of Social function [facility] Start: 2024 Gender identity Identifies as female gender (finding) [facility] Start: 09-08-2024 Sex Female (finding) [facility] Goals Date Patient Goal Desired Activity /State Functional Status Date Assessment Result Facility 07-30-2022 Functional Status N/A [facility] [place] Clinical Notes 08-20-2022 to 02-01-2025 Edis Morales, DO - 02/01/2025 1:30 PM EDTBenkirby Morales, DO - 10/26/2024 1:15 PM ESTBenkirby Morales, DO - 09/21/2024 1:45 PM ESTBeclinton Morales, DO - 09/14/2024 9:00 AM EST Note Date & Type Note Facility 02-01-2025 History of Present illness Narrative Formatting of this note might be differe nt from the original. Subjective Patient ID: HPI Patient presents today for thyroid cancer surveillance. She is status post right thyroid lobectomy for well contained papillary thyroid cancer in August. She is doing well. Recent lab work shows that her TSH is slightly elevated. Currently taking Synthroid 50 micro g daily. Thyroglobulin is 11. Review of Systems ROS The specialty specific [...] of normal size and configuration Oropharynx: Tonsils Posterior pharyngeal wall Neck: No evidence of palpable abnormality Thyroid [...] The right lobe of the thyroid gland is surgically absent. No abnormal tissue deposits noted in the thyroid bed or central compartment. The isthmus is also missing. The left lobe of the thyroid gland measures ____ 3.9 ___ cm greatest dimension. No identifiable nodular mass. There is no adenopathy in the central compartment. There is no appreciable adenopathy in either lateral neck. Assessment/Plan Veronica was seen today for thyroid cancer. Diagnoses and all orders for this visit: Malignant neoplasm of thyroid gland (CMS/HCC) (Primary) Comments: To increase the patient's to Synthroid 100 micro g daily, recheck lab work in 60 days and call for any further adjustments. Status post partial thyroidectomy (CMS/HCC) Comments: No evidence of recurrence. Orders: - Thyroglobulin; Future - T3; Future - T4; Future - TSH; Future - Thyroglobulin - T3 - T4 - TSH - T4; Future - T3; Future - TSH; Future - Thyroglobulin; Future - T4 - T3 - TSH - Thyroglobulin Otherwise I will see her back in 6 months with lab work. I will repeat an ultrasound in 1 year. documented in this encounter [facility] 10-26-2024 History of Present illness Narrative Formatting [...] at that time. documented in this encounter [facility] 09-21-2024 History of Present illness Narrative Formatting [...] T4 - Thyroglobulin documented in this encounter [facility] 09-14-2024 History of Present illness Narrative Formatting of this note might be differe nt from the original. mmm documented in this encounter [facility] 09-01-2024 History of Present illness Narrative Formatting of this note might be differe nt from the original. Work note Allergies as of 09/01/2024 - Reviewed 09/01/2024 Allergen Reaction Noted Morphine 08/29/2024 Silver 08/29/2024 Past Medical History: Diagnosis Date BMI 40.0-44.9, adult ([facility]) 08/29/2024 Cervical radiculopathy 08/29/2024 History of pilonidal cyst 08/29/2024 HTN (hypertension) ([facility]) 08/29/2024 Hypercholesteremia ([facility]) 08/29/2024 Insomnia 08/29/2024 Migraines ([facility]) 08/29/2024 Morbid obesity ([facility]) 08/29/2024 Orthostatic hypotension 08/29/2024 Current Outpatient Medications: [...] Patient underwent a recent FNA followed by [facility] molecular testing. Molecular testing shows the molecular [...] consented to proceed. documented in this encounter [facility] 06-12-2023 Evaluation note Encounter Date Diagnosis Assessment [...] Other specified postprocedural states (ICD-10 - Z98.890) [facility] Other 07-26-2023 Evaluation note* Encounter Date Diagnosis Assessment Notes Treatment Notes Treatment Clinical Notes Feb, Crushing injury of right thumb, subsequent encounter (ICD-10 - S67.01XD) Patient instructed to keep cuticle moisturized and pushed back. Activity as tolerated Feb, Injury of nail bed o f finger of right hand, subsequent encounter (ICD-10 - S69.91XD) Feb, Other specified postprocedural states (ICD-10 - Z98.890) [facility] Other 06-01-2023 Evaluation note* Encounter Date Diagnosis [...] Other specified postprocedural states (ICD-10 - Z98.890) [facility] Other 03-21-2023 Evaluation note* Encounter Date Diagnosis [...] Other specified postprocedural states (ICD-10 - Z98.890) [facility] Other 02-28-2023 Evaluation note* Encounter Date Diagnosis Assessment Notes Treatment Notes Treatment Clinical Notes Sep, Crushing injury of right thumb, initial encounter (ICD-10 - S67.01XA) Patient instructed on the use of moisturizer for the nailbed. Return to work note given Sep, Injury of nail bed of right thumb, initial encounter (ICD-10 - S69.91XA) [facility] Other 02-14-2023 Evaluation note* Encounter Date Diagnosis Assessment Notes Treatment Notes Treatment Clinical Notes Sep, Crushing injury of right thumb, initial encounter (ICD-10 - S67.01XA) Patient instructed to continue with current wound care and use of stax splint. Continue off work Sep, Injury of nail bed of right thumb, initial encounter (ICD-10 - S69.91XA) [facility] Other 02-07-2023 Evaluation note* Encounter Date Diagnosis Assessment Notes Treatment Notes Treatment Clinical Notes Sep, Crushing injury of right thumb, initial encounter (ICD-10 - S67.01XA) Patient instructed to continue daily soaking. Rx given for Zofran due to vomitting from narcotics Sep, Injury of nail bed of right thumb, initial encounter (ICD-10 - S69.91XA) [facility] Other 01-31-2023 NotePROCEDURE: XR HAND RT MIN [...] digit distal phalanx. Electronically authenticated by: MYAH ELVIS Date: 2022-09-25 07:51[facility]01[facility]18-2023 NoteOPERATIVE NOTE OPERATION DATE: 09/12/2022 PREOPERATIVE DIAGNOSIS: [...] in good condition. CC: Patient's family physicianThe Barney Children'S Medical [id number] NoteChief Complaint consultation for RUQ pain HPI [...] pain) Socia (more content not included)...[facility]: Result Comment: Electronically Signed By: SOL ESPINOZA, Sanjay Paredes\Date and Time Signed: 08/20/22 10:27 ESTEvaluation + Plan note No data available for this section [facility] [place] Evaluation noteNo assessment information available [facility] Work Phone: Evaluation noteNo InformationNort [employer] Other Evaluation note* Diagnosis Thyroid nodule (CMS/HCC) Nontoxic uninodular goiter [facility] Diagnosis Thyroid mass (CMS/HCC)- Primary Unspecified disorder of thyroid [facility] Diagnosis Malignant neoplasm of thyroid gland (CMS/HCC)- Primary Malignant neoplasm of thyroid gland Status post partial thyroidectomy (CMS/HCC) Other postprocedural status [facility] Diagnosis Malignant neoplasm of thyroid gland (CMS/HCC)- Primary Malignant neoplasm of thyroid gland Status post partial thyroidectomy (CMS/HCC) Other postprocedural status [facility] Diagnosis Malignant neoplasm of thyroid gland (CMS/HCC)- Primary Malignant neoplasm of thyroid gland Status post partial thyroidectomy (CMS/HCC) Other postprocedural status documented in this encounter [facility] HealthcareHistory general Narrative - Reported* Type Description Date Medical History depression Medical History bradycardia Medical History tachycardia Surgical History tonsillectomy Surgical History pylenol cysts Surgical History wisdom teeth Surgical History plantar fasciitis, tarsal tunne l x 2 right foot [facility] Other History general Narrative - Reported* Type Description Date Medical History depression Medical History bradycardia Medical History tachycardia Surgical History tonsillectomy Surgical History pylenol cysts Surgical History wisdom teeth Surgical History plantar fasciitis, tarsal tunne l x 2 right foot Surgical History right thumb I & D 09/28/2022 [facility] Other Hospital Discharge instructions No data available for this section [facility] [place] Progress note No data available for this section [facility] [place] Chief Complaint and Reason for Visit Chief [...] Active Bonnie Jeffrey MD Attending Provider Active 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 Relationship 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 Start Date End Date Felipe Brooke MD [address] [place] [address] PCP - General Family Medicine 11/18/23 Willa Hanks DO [address] [place] [address] Referring Physician Neurology 11/18/23 Edis Morales DO [address] [place] [address] Otolaryngology 09/01/24 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 Relationship Specialty Start Date End Date Felipe Brooke MD [address] [place] [address] PCP - General Family Medicine 11/18/23 Willa Hanks DO [address] [place] [address] Referring Physician Neurology 11/18/23 Edis Morales DO [address] [place] [address] Otolaryngology 09/01/24 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 Relationship Specialty Start Date End Date Felipe Brooke MD [address] [place] [address] PCP - General Family Medicine 11/18/23 Willa Hanks DO [address] [place] [address] Referring Physician Neurology 11/18/23 Edis Morales DO [address] [place] [address] Otolaryngology 09/01/24 Team Status: Inactive Member Role [...] September 07, 2024 End: September 07, 2024 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 Relationship Specialty Start Date End Date Felipe Brooke MD [address] [place] [address] PCP - General Family Medicine 11/18/23 Willa Hanks DO [address] [place] [address] Referring Physician Neurology 11/18/23 Edis Morales DO [address] [place] [address] Otolaryngology 09/01/24 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 Relationship Specialty Start Date End Date Felipe Brooke MD [address] [place] [address] PCP - General Family Medicine 11/18/23 Willa Hanks DO [address] [place] [address] Referring Physician Neurology 11/18/23 Edis Morales DO [address] [place] [address] Otolaryngology 09/01/24 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 Relationship Specialty Start Date End Date Felipe Brooke MD [address] [place] [address] PCP - General Family Medicine 11/18/23 Willa Hanks DO [address] [place] [address] Referring Physician Neurology 11/18/23 Edis Morales DO [address] [place] [address] Otolaryngology 09/01/24 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 Relationship Specialty Start Date End Date Felipe Brooke MD [address] [facility] [place] [address] PCP - General Family Medicine 11/18/23 Willa Hanks DO [address] [place] [address] Referring Physician Neurology 11/18/23 Edis Morales DO [address] [place] [address] Otolaryngology 09/01/24 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 Relationship Specialty Start Date End Date Felipe Brooke MD PCP - General Family Medicine 11/18/23 Willa Hanks DO [address] [place] [address] Referring Physician Neurology 11/18/23 Edis Morales DO [address] [place] [address] Otolaryngology 09/01/24 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 Relationship Specialty Start Date End Date Felipe Brooke MD PCP - General Family Medicine 11/18/23 Willa Hanks DO [address] [place] [address] Referring Physician Neurology 11/18/23 Edis Morales DO [address] [place] [address] Otolaryngology 09/01/24 Goals (unrecognized section and content) Goals may be documented in a n alternate section INFORMATION SOURCE (unrecogn ized section and content) DATE CREATED AUTHOR 09/29/2022 Naldo Gordon [facility] DATE CREATED AUTHOR AUTHOR'S ORGANIZ ATION 12/01/2022 [facility] [facility] DATE CREATED AUTHOR AUTHOR'S ORGANIZ ATION 10/03/2024 [facility] DATE CREATED AUTHOR AUTHOR'S ORGANIZ ATION 02/02/2025 [facility] EPIC REASON FOR VISIT (unrecogniz ed section and content) Reason Comments Thyroid Nodule New Patient : Thyroi d nodule / FNA done Reason Comments Post-op Post op right thyroi d Reason Comments Post-op 1 month vira right t hyroid Reason Comments Thyroid Cancer 3 month vira FOR RECORDS PERTAINING TO PATIENTS WHO ARE [...] BE BASED ON THE PRIMARY CLINICAL RECORDS. [employer] provides no warranty or guarantee of the accuracy or completeness of information in this document.
[2025-03-28 11:19] VITALS: BP 151/88; PULSE 78; TEMP 37; O2SAT 99; BMI 47.2
--- OUTSIDE RECORDS SUMMARY | 2025-03-28 11:19 | XMS_ITS | Patient Health Record ---
Author Organization [facility] in [place] Address [address] [place] [address] Care Team Providers Care Director Of Recruitment And Admissions Name Role Phone Ramnó Brooke Primary Care Provider [phone] Allergies Allergen (clinical drug ingredient) Drug/Non Drug Allergy documented on EMR Reaction Allergy Type Onset Date Status irbesartan Irbesartan Unknown Drug Allergy Activ e Results Component Value Reference Range Notes US THYROID Reviewed date:07/04/2024 03:59:51 PM Interpretation: Performing Lab: Notes/Report: Source Facility: [place] [address] Ultrasound Report Signed Patient: VERONICA ROSS MR#: [id number] : 1990 Acct:[id number] Age/Sex: 33 / F ADM Date: 07/02/24 Loc: US Attending Dr: Donnell Brooke M.D. Ordering Physician: Donnell Brooke M.D. Date of Service: 07/02/24 Procedure(s): US thyroid Accession Number(s): [id number] cc: Donnell Brooke M.D. [place] [id number] Patient Name: VERONICA ROSS MRN: [id number] date: 1990 Sex: F Assigned Patient Location: US Current Patient Location: Accession/Order Number: [id number] Exam Date: 07/02/2024 18:00 Report Date: 07/03/2024 [...] Barros M.D. Signed By: 07/03/2447 DD/ TD/TT: Firer Tunnel Kiln: The [address] [address] Ultrasound Report Signed Patient: ZAKIA ROSS MR#: [id number] : 1990 Acct:[id number] Age/Sex: 33 / F ADM Date: 07/02/24 Loc: US Attending Dr: Leslie Brooke M.D. Ordering Physician: Donnell Brooke M.D. Date of Service: 07/02/24 Procedure(s): US thyroid Accession Number(s): [id number] cc: Donnell Brooke M.D. [address] [address] Patient Name: VERONICA ROSS MRN: [id number] date: 1990 Sex: F Assigned Patient Location: US Current Patient Location: Accession/Order Numb er: [id number] Exam Date: 18:00 Report Date: 07/03/2024 06:44 [...] Barros M.D. Signed By: 07/03/2447 DD/ TD/TT: Firer Tunnel Kiln: [place] echo doppler complete Reviewed date:04/20/2024 06:35:09 PM Interpretation: Performing Lab: Notes/Report: Source Facility: [facility] [place] [address] [place] [address] Cardiology Report Signed Patient: VERONICA ROSS MR#: [id number] : 1990 Acct:[id number] Age/Sex: 33 / F ADM Date: 04/20/24 Loc: CARD Attending Dr: Donnell Brooke M.D. Ordering Physician: Donnell Brooke M.D. Date of Service: 04/20/24 Procedure(s): CA echo doppler complete Accession Number(s): [id number] cc: Donnell Brooke M.D. Patient Name: VEROINCA ROSS MR#: [id number] : 1990 Exam Date: 04/20/2024 Ordering Doctor: [...] Leong M.D. Signed By: 04/20/24 1413 DD/ 11 TD/TT: Firer Tunnel Kiln: [place] [address] Cardiology Report Signed Patient: ZAKIA ROSS MR#: [id number] : 1990 Acct:[id number] Age/Sex: 33 / F ADM Date: 04/20/24 Loc: CARD Attending Dr: Leslie Brooke M.D. Ordering Physician: Donnell Brooke M.D. Date of Service: 04/20/24 Procedure(s): CA ech o doppler complete Accession Number(s): [id number] cc: Donnell Brooke M.D. Patient Name: VERONICA ROSS MR#: [id number] : 1990 Exam Date: 04/20/2024 Ordering Doctor: [...] appearance. No visible sclerosis. Normal leaflet mobility. N o evidence of aortic valve stenosis. Trivial aortic [...] Signed By: 04/20/24 1413 DD/ 1412 TD/TT: Firer Tunnel Kiln: XR ankle RT min 3V Reviewed date:05/22/2024 01:05:48 PM Interpretation: Performing Lab: Notes/Report: Source Facility: [place] [address] [place] [address] XRay Report Signed Patient: VERONICA ROSS MR#: [id number] : 1990 Acct:[id number] Age/Sex: 33 / F ADM Date: 05/21/24 Loc: RAD Attending Dr: Donnell Brooke M.D. Ordering Physician: Donnell Brooke M.D. Date of Service: 05/21/24 Procedure(s): XR ankle RT min 3V Accession Number(s): [id number] cc: Donnell Brooke M.D. [place] [address] Patient Name: VERONICA ROSS MRN: [id number] date: 1990 Sex: F Assigned Patient Location: [facility] Current Patient Location: Accession/Order Number: [id number] Exam Date: 05/21/2024 12:11 Report Date: 05/22/2024 [...] Signed By: 05/22/24 1002 DD/ 1000 TD/TT: Firer Tunnel Kiln: The [address] [address] XRay Report Signed Patient: ZAKIA ROSS MR#: [id number] : 1990 Acct:[id number] Age/Sex: 33 / F ADM Date: 05/21/24 Loc: [facility] Attending Dr: Leslie Brooke M.D. Ordering Physician: Donnell Brooke M.D. Date of Service: 05/21/24 Procedure(s): XR ank le RT min 3V Accession Number(s): [id number] cc: Donnell Brooke M.D. [place] [id number] Patient Name: VERONICA ROSS MRN: [id number] date: 1990 Sex: F Assigned Patient Location: [facility] Current Patient Location: Accession/Order Numb er: [id number] Exam Date: 05/21/2024 12:11 Report Date: 05/22/2024 [...] Signed By: 05/22/24 1002 DD/ 1000 TD/TT: Firer Tunnel Kiln: RHIANNON T3 Reviewed date:11/30/2024 07:14:31 PM Interpretation: Performing Lab: Notes/Report: [facility] , Rhiannon T3 2.39 2.18-3.98 pg/mL Performing Lab: see note ML - [facility] LB PROF 14(COMP METB) Reviewed date:11/30/2024 07:14:31 PM Interpretation: Performing Lab: Notes/Report: [facility] , Sodium 142 136-145 mmol/L Potassium 3.7 [...] Globulin Ratio 1.0 Performing Lab: see note - [facility] LB Triiodothyronine (T3) Reviewed date:12/01/2024 03:31:42 PM Interpretation: Performing Lab: Notes/Report: [facility] , Triiodothyronine (T3) 83 71-180 ng/dL Performed at: [facility] Saw Offbearer: Cory De Leon PhD, Phone: [phone] [address] [place], [place] [phone] Performing Lab: see note - [facility] LB TSH Reviewed date:11/30/2024 07:14:31 PM Interpretation: Performing Lab: Notes/Report: [facility] , Thyroid Stimulating Hormone 3.459 0.358-3.740 uIU/mL Performing Lab: see note - [facility] LB THYROGLOBULIN Reviewed date:12/07/2024 08:31:54 PM Interpretation: Performing Lab: Notes/Report: [facility] , Thyroglobulin (TG-ASHOK) 11 . ng/mL determined by [facility]. It has not been cleared or approved Pubertal Children related to euthyroid patients and not for patients who Saw Offbearer: Osmar Watkins MD, Phone: [phone] left after surgery. Establishing a post-operative baseline [address] [place], [place] [phone] Performed at: [facility] by the Food and Drug Administration. is recommended. The assay quantitation limit is 2.0 ng/mL. underwent thyroidectomy. TG reference intervals for these the reference interval for Thyroglobulin (TG) should be This test was developed and its performance characteristics Reference Range: and Adults: <40 patients depend on the residual mass of the thyroid tissue According to the National Academy of Clinical Biochemistry, Performing Lab: see note - [facility] LB T4 Reviewed date:11/30/2024 07:14:31 PM Interpretation: Performing Lab: Notes/Report: [facility] , T4 Thyroxine 11.90 4.80-13.90 ug/dL Performing Lab: see note ML - [facility] LB VITAMIN D 25 [place] Reviewed date:10/25/2024 12:48:38 PM Interpretation: Performing Lab: Notes/Report: [facility] , Vitamin D 15.1 >100 ng/mL Potential Toxicity <20 ng/mL Vit D deficient 30-100 ng/mL Vit D sufficient 20-<30 ng/mL Vit D insufficient Performing Lab: see note ML - [facility] LB TSH Reviewed date:10/25/2024 12:48:38 PM Interpretation: Performing Lab: Notes/Report: [facility] , Thyroid Stimulating Hormone 5.061 0.358-3.740 uIU/mL Performing Lab: see note ML - [facility] LB T4 Reviewed date:10/25/2024 12:48:38 PM Interpretation: Performing Lab: Notes/Report: [facility] , T4 Thyroxine 9.10 4.80-13.90 ug/dL Performing Lab: see note - [facility] LB PROF 14(COMP METB) Reviewed date:10/25/2024 12:48:38 PM Interpretation: Performing Lab: Notes/Report: [facility] , Sodium 141 136-145 mmol/L Potassium 3.8 [...] 1.2 Performing Lab: see note ML - [facility] FREE T3 Reviewed date:10/25/2024 12:48:38 PM Interpretation: Performing Lab: Notes/Report: [facility] , Free T3 2.66 2.18-3.98 pg/mL Performing Lab: see note ML - [facility] LB PROF 14(COMP METB) Reviewed date:09/13/2024 02:02:33 PM Interpretation: Performing Lab: Notes/Report: [facility] , Sodium 138 136-145 mmol/L Potassium 2.8 3.5-5.1 mmol/L RESULTS CALLED TO LISA Chen RN @BY Favian Cool [place] at [...] 0.7 Performing Lab: see note ML - [facility] LB LIPASE Reviewed date:09/13/2024 02:02:33 PM Interpretation: Performing Lab: Notes/Report: [facility] , Lipase 55.0 16.0-77.0 U/L Performing Lab: see note ML - [facility] LB CBC AUTO DIFF Reviewed date:09/13/2024 02:02:33 PM Interpretation: Performing Lab: Notes/Report: [facility] , White Blood Count 11.7 4.0-11.0 10 [...] Performing Lab: see note ML - [facility] LB US biopsy thyroid Reviewed date:08/18/2024 10:04:58 AM Interpretation: Performing Lab: Notes/Report: Source Facility: [facility] [place] [address] [address] Ultrasound Report Signed with Addenda Patient: VERONICA ROSS MR#: [id number] : 1990 Acct:[id number] Age/Sex: 33 / F ADM Date: 08/03/24 Loc: US Attending Dr: Donnell Brooke M.D. Ordering Physician: Donnell Brooke M.D. Date of Service: 08/03/24 Procedure(s): US biopsy thyroid Accession Number(s): [id number] cc: Donnell Brooke M.D. ADDENDUM The [address] [address] Patient Name: VERONICA ROSS MRN: [id number] date: 1990 Sex: F Assigned Patient Location: US Current Patient Location: Accession/Order Number: [id number] Exam Date: 08/03/2024 09:51 Report Date: 08/18/2024 01:17 At the request of: DONNELL BROOKE Procedure: US biopsy thyroid Begin Addendum #1 COLLECTED DATE: 08/03/2024 Final Diagnosis Report for [facility] [place] Pathological Diagnosis: Right thyroid nodule, fine needle aspiration: Suspicious for follicular neoplasm. 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 [place] Category IV. 08/06/[address] Brooke. [...] 120 Addendum Cosigned By: DD/ TD/TT: / [place] [id number] Patient Name: VERONICA ROSS MRN: [id number] date: 1990 Sex: F Assigned Patient Location: US Current Patient Location: Accession/Order Number: [id number] Exam Date: 08/03/2024 09:51 Report Date: 08/03/2024 [...] Signed By: 08/03/24 1438 DD/ 1435 TD/TT: Firer Tunnel Kiln: [place] [address] Ultrasound Report Signed with Melvin Patient: ZAKIA ROSS MR#: [id number] : 1990 Acct:[id number] Age/Sex: 33 / F ADM Date: 08/03/24 Loc: US Attending Dr: Leslie Brooke M.D. Ordering Physician: Donnell Brooke M.D. Date of Service: 08/03/24 Procedure(s): US bio psy thyroid Accession Number(s): [id number] cc: Donnell Brooke M.D. ADDENDUM The [address] [address] Patient Name: VERONICA ROSS MRN: [id number] date: 1990 Sex: F Assigned Patient Location: US Current Patient Location: US Accession/Order Numb er: [id number] Exam Date: 09:51 Report Date: 08/18/2024 01:17 At the request of: DONNELL BROOKE Procedure: US biopsy thyroid Begin Addendum # 1 COLLECTED DATE: 08/03/2024 Final Diagnosis Report for [facility] [place] Pathological Diagnosis: Right thyroid nodule , fine needle aspiration: Suspicious for follicular neoplasm. 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 [place] Category IV. 08/06/[address] Brooke. [...] Cosigned By: DD/ TD/TT: / ADDENDUM U S/ biopsy thyroid IMPRESSION: 1. Uneventful ultras ound guided fine needle aspiration (FNA). 2. Pathology results are pending. Electronically authenticated by: PAULINO BARROS Date: 08/18/2024 01:17 Addendum Dictated By : Paulino Barros M.D. Addendum Signed By: 08/18/24 0 120 Addendum Cosigned By: DD/ TD/TT: / [place] [address] Patient Name: VERONICA ROSS MRN: [id number] date: 1990 Sex: F Assigned Patient Location: Current Patient Location: Accession/Order Numb er: [id number] Exam Date: 09:51 Report Date: 08/03/2024 14:35 [...] Signed By: 08/03/24 1438 DD/ 1435 TD/TT: Firer Tunnel Kiln: XR ankle RT min 3V Reviewed date:06/30/2024 06:06:43 PM Interpretation: Performing Lab: Notes/Report: Source Facility: [facility] [place] [address] [place] [address] XRay Report Signed Patient: VERONICA ROSS MR#: [id number] : 1990 Acct:[id number] Age/Sex: 33 / F ADM Date: 06/29/24 Loc: EC Attending Dr: Paulino Fuentes M.D. Ordering Physician: Paulino Fuentes M.D. Date of Service: 06/29/24 Procedure(s): XR ankle RT min 3V Accession Number(s): [id number] cc: Paulino Fuentes M.D.; Donnell Brooke M.D. [place] [address] Patient Name: VERONICA ROSS MRN: [id number] date: 1990 Sex: F Assigned Patient Location: Current Patient Location: Accession/Order Number: [id number] Exam Date: 06/29/2024 12:45 Report Date: 06/30/2024 [...] Dictated By: Thom Angela M.D. Signed By: 06/30/241512 DD/ 09 TD/TT: Firer Tunnel Kiln: [place] [address] XRay Report Signed Patient: ZAKIA ROSS MR#: [id number] : 1990 Acct:[id number] Age/Sex: 33 / F ADM Date: 06/29/24 Loc: EC Attending Dr: Paulino Fuentes M.D. Ordering Physician: Paulino Fuentes M.D. Date of Service: 06/29/24 Procedure(s): XR ank le RT min 3V Accession Number(s): [id number] cc: Paulino Fuentes M.D.; Donnell Brooke M.D. The [place] [address] Patient Name: VERONICA ROSS MRN: [id number] date: 1990 Sex: F Assigned Patient Location: Current Patient Location: Accession/Order Numb er: [id number] Exam Date: 12:45 Report Date: 06/30/2024 15:10 [...] Dictated By: Medhat Angela M.D. Signed By: 06/30/241512 DD/ 09 TD/TT: Firer Tunnel Kiln: MR ankle RT wo con Reviewed date:06/04/2024 07:25:30 PM Interpretation: Performing Lab: Notes/Report: Source Facility: [place] [address] [place] [address] Magnetic Resonance Report Signed Patient: VERONICA ROSS MR#: [id number] : 1990 Acct:[id number] Age/Sex: 33 / F ADM Date: 06/03/24 Loc: MRI Attending Dr: Donnell Brooke M.D. Ordering Physician: Donnell Brooke M.D. Date of Service: 06/03/24 Procedure(s): MR ankle RT wo con Accession Number(s): [id number] cc: Donnell Brooke M.D. The [place] [address] Patient Name: VERONICA ROSS MRN: [id number] date: 1990 Sex: F Assigned Patient Location: MRI Current Patient Location: MRI Accession/Order Number: [id number] Exam Date: 06/03/2024 06:58 Report Date: 06/04/2024 [...] Mamadou Enciso M.D. Signed By: 06/04/241613 DD/ 10 TD/TT: Firer Tunnel Kiln: [place] [address] Magnetic Resonance Report Signed Patient: ZAKIA ROSS MR#: [id number] : 1990 Acct:[id number] Age/Sex: 33 / F ADM Date: 06/03/24 Loc: MRI Attending Dr: Leslie Brooke M.D. Ordering Physician: Donnell Brooke M.D. Date of Service: 06/03/24 Procedure(s): MR ank le RT wo con Accession Number(s): [id number] cc: Donnell Brooke M.D. [place] [address] Patient Name: VERONICA ROSS MRN: [id number] date: 1990 Sex: F Assigned Patient Location: MRI Current Patient Location: MRI Accession/Order Numb er: [id number] Exam Date: 06:58 Report Date: 06/04/2024 16:11 [...] M.D. Signed By: 06/04/241613 DD/ 10 TD/TT: Firer Tunnel Kiln: PROF Navarrete(COMP METB) Reviewed date:04/14/2024 07:28:29 PM Interpretation: Performing Lab: Notes/Report: [facility] , Sodium 139 136-145 mmol/L Potassium 3.2 [...] 1.1 Performing Lab: see note ML - [facility] LB LIPID PROFILE Reviewed date:10/25/2024 12:48:38 PM Interpretation: Performing Lab: Notes/Report: [facility] , Triglycerides 109 <=150 mg/dL Cholesterol 190 <=200 mg/dL HDL Cholesterol 52 40-60 mg/dL <40 mg/dl - HIGH CARDIOVASCULAR RISK > or =60 mg/dl - LOW CARDIOVASCULAR RISK LDL Cholesterol Calculated 116.2 >190 mg/dl VERY HIGH <100 mg/dl OPTIMAL 100-129 mg/dl NEAR OR ABOVE OPTIMAL 160-189 mg/dl HIGH 130-159 mg/dl BORDERLINE HIGH VLDL CHOLESTEROL 21.8 Chol HDL Ratio 3.7 4.4 - 7.1 AVERAGE RISK 7.1 - 11.0 MODERATE RISK >11.0 HIGH RISK 3.3 - 4.4 LOW RISK Performing Lab: see note ML - [facility] LB IRON Reviewed date:10/25/2024 12:48:38 PM Interpretation: Performing Lab: Notes/Report: [facility] , Iron 39.0 50.0-170.0 ug/dL Performing Lab: see note - [facility] LB GLYCOHEMOGLOBIN A1C Reviewed date:10/25/2024 12:48:38 PM Interpretation: Performing Lab: Notes/Report: [facility] , Glycohemoglobin A1C 5.5 4.5-6.2 % > 7.0 ADA THERAPEUTIC TARGET < 7.0 ACTION SUGGESTED ADA RECOMMENDED LIMIT 4.0 - 6.0 Estimated Average Glucose 111 Performing Lab: see note ML - [facility] LB CBC AUTO DIFF Reviewed date:10/25/2024 12:48:38 PM Interpretation: Performing Lab: Notes/Report: [facility] , White Blood Count 6.9 4.0-11.0 10 [...] 0.00-0.03 10 3/uL Performing Lab: see note - [facility] VITAMIN D 25 [place] Reviewed date:12/14/2024 06:30:53 PM Interpretation: Performing Lab: Notes/Report: [facility] , Vitamin D 16.4 20-<30 ng/mL Vit D insufficient 30-100 ng/mL Vit D sufficient <20 ng/mL Vit D deficient >100 ng/mL Potential Toxicity Performing Lab: see note - [facility] PROF CHEM 8 (BAS METB) Reviewed date:12/14/2024 06:30:53 PM Interpretation: Performing Lab: Notes/Report: [facility] , Sodium 140 136-145 mmol/L Potassium 3.7 3.5-5.1 mmol/L Chloride 101 98-107 mmol/L Carbon Dioxide 30.8 21.0-32.0 mmol/L Anion Gap 11.9 Glucose 94 74-106 mg/dL Blood Urea Nitrogen 13.0 7.0-18.0 mg/dL Creatinine 1.19 0.55-1.02 mg/dL Estimated GFR ( Perri >60 >=60 mL/min/1.73m 2 Estimated GFR (Non- Freya 52 >=60 mL/min/1.73m 2 BUN Creatinine Ratio 10.9 Calcium 9.0 8.5-10.1 mg/dL Performing Lab: see note - [facility] Triiodothyronine (T3) Reviewed date:01/31/2025 01:44:39 PM Interpretation: Performing Lab: Notes/Report: [facility] , Triiodothyronine (T3) 118 71-180 ng/dL [address] [place], [place] [id number] Saw Offbearer: Cory De Leon PhD, Phone: [phone] [facility] Performing Lab: see note - [facility] LB TSH Reviewed date:01/30/2025 05:20:26 PM Interpretation: Performing Lab: Notes/Report: [facility] , Thyroid Stimulating Hormone 4.778 0.358-3.740 uIU/mL Performing Lab: see note - [facility] LB T4 Reviewed date:01/30/2025 05:20:26 PM Interpretation: Performing Lab: Notes/Report: [facility] , T4 Thyroxine 11.00 4.80-13.90 ug/dL Performing Lab: see note ML - [facility] LB MR knee RT wo con Reviewed date:12/28/2024 02:59:13 PM Interpretation: Performing Lab: Notes/Report: Source Facility: [facility] [place] [address] [place] [address] Magnetic Resonance Report Signed Patient: VERONICA ROSS MR#: [id number] : 1990 Acct:[id number] Age/Sex: 34 / F ADM Date: 12/28/24 Loc: MRI Attending Dr: Yvette MAHONEY Ordering Physician: Yvette Smith Date of Service: 12/28/24 Procedure(s): MR knee RT wo con Accession Number(s): [id number] cc: Donnell Brooke M.D.; Yvette Smith [place] [address] Patient Name: EVRONICA ROSS MRN: [id number] date: 1990 Sex: F Assigned Patient Location: MRI Current Patient Location: MRI Accession/Order Number: [id number] Exam Date: 12/28/2024 11:58 Report Date: 12/28/2024 [...] Jr., D.O. 12/28/2024 12:04 PM Dictation Location: [place] [address] Electronically authenticated by: [id number] Y Date: 12/28/2024 12:04 Dictated By: Willie Dong M.D. Signed By: 12/28/24 1207 DD/ 1204 TD/TT: Firer Tunnel Kiln: [place] [address] Magnetic Resonance Report Signed Patient: ZAKIA ROSS MR#: [id number] : 1990 Acct:[id number] Age/Sex: 34 / F ADM Date: 12/28/24 Loc: MRI Attending Dr: Elijah Mason Ordering Physician: Yvette Smith Date of Service: 12/28/24 Procedure(s): MR kne e RT wo con Accession Number(s): [id number] cc: Donnell Brooke M.D. ; Yvette Smith [place] [id number] Patient Name: VERONICA ROSS MRN: [id number] date: 1990 Sex: F Assigned Patient Location: MRI Current Patient Location: MRI Accession/Order [facility] er: [id number] Exam Date: 12/28/2024 11:58 Report Date: 12/28/2024 [...] Jr., D.O. 12/28/2024 12:04 PM Dictation Location: [place] [address] Electronically authenticated by: [id number] Y Date: 12/28/2024 12:04 Dictated By: Willie Dong M.D. Signed By: 12/28/24 1207 DD/ TD/TT: Firer Tunnel Kiln: XR ANKLE RT 2V Reviewed date:06/15/2024 08:22:05 PM Interpretation: Performing Lab: Notes/Report: Source Facility: [place] [address] XRay Report Signed Patient: VERONICA ROSS MR#: [id number] : 1990 Acct:[id number] Age/Sex: 33 / F ADM Date: 06/11/24 Loc: [facility] Attending Dr: Donnell Brooke M.D. Ordering Physician: Donnell Brooke M.D. Date of Service: 06/11/24 Procedure(s): XR ankle RT 2V Accession Number(s): [id number] cc: Donnell Brooke M.D. The [place] [address] Patient Name: VERONICA ROSS MRN: [id number] date: 1990 Sex: F Assigned Patient Location: [facility] Current Patient Location: Accession/Order Number: [id number] Exam Date: 06/11/2024 18:30 Report Date: 06/15/2024 [...] Dictated By: Thom Angela M.D. Signed By: 06/15/24751 DD/ 9 TD/TT: Firer Tunnel Kiln: [place] [address] XRay Report Signed Patient: ZAKIA ROSS MR#: [id number] : 1990 Acct:[id number] Age/Sex: 33 / F ADM Date: 06/11/24 Loc: RAD Attending Dr: Leslie Brooke M.D. Ordering Physician: Donnell Brooke M.D. Date of Service: 06/11/24 Procedure(s): XR ank le RT 2V Accession Number(s): [id number] cc: Donnell Brooke M.D. [place] [id number] Patient Name: VERONICA ROSS MRN: [id number] date: 1990 Sex: F Assigned Patient Location: [facility] Current Patient Location: Accession/Order Numb er: [id number] Exam Date: 18:30 Report Date: 06/15/2024 07:50 [...] M.D. Signed By: 06/15/24751 DD/ 9 TD/TT: Firer Tunnel Kiln: PROF Navarrete(COMP METB) Reviewed date:04/20/2024 06:35:09 PM Interpretation: Performing Lab: Notes/Report: [facility] , Sodium 140 136-145 mmol/L Potassium 3.7 [...] Performing Lab: see note ML - [facility] LB THYROGLOBULIN Reviewed date:02/08/2025 06:42:14 PM Interpretation: Performing Lab: Notes/Report: [facility] , Thyroglobulin (TG-ASHOK) 10 . ng/mL the reference interval for Thyroglobulin (TG) should be underwent thyroidectomy. TG reference intervals for these by the Food and Drug Administration. According to the National Academy of Clinical Biochemistry, This test was developed and its performance characteristics Reference Range: Saw Offbearer: Osmar Watkins MD, Phone: [phone] is recommended. The assay quantitation limit is 2.0 ng/mL. [address] [place] [phone] and Adults: <40 determined by [facility]. It has not been cleared or approved Performed at: [facility] left after surgery. Establishing a post-operative baseline patients depend on the residual mass of the thyroid tissue Pubertal Children related to euthyroid patients and not for patients who Performing Lab: see note LC - [facility] LB Reason For Referral Diagnosis 1 Ankle pain, right (M 25.571) Referral Organization [facility] Referring Provider First Name Ramón Referring Provider Last Name Edwardo Referring Provider [facility] Referred Provider Paulino Fuentes Referred Provider Specialty Orthopedic S urgery Referral Priority Routine Reason Needs consult DAYANARA p lease! Pathology suspicious of malignancy. Diagnosis 1 Right thyroid nodule (E04.1) Referral Organization [facility] Referring Provider First Name Ramón Referring Provider Last Name Edwardo Referring Provider [facility] Referred Provider Emily Urena Referred Provider Specialty [...] breakfast Orally Once a day 01/19/2025 Active Doxycycline Monohydrate 100 MG 1 capsule Orally bid for 10 days 01/18/2025 Active Triamterene-HCTZ 75-50 MG 1 tablet in th e morning Orally Once a day for 90 days Active Lasix 20 MG 1 tablet Orally Once a day for 3 days 04/15/2024 Active Air Cast Size to fit Wear 18/03. remove for showers Dx: chip fracture of ankle 05/22/2024 Active Pantoprazole Sodium 40 MG TAKE 1 TABLET BY MOUTH TWICE A DAY FOR 90 DAYS for 90 Active Acebutolol HCl 200 MG TAKE 1 CAPSULE BY MOUTH TWICE A DAY for 30 Active Oxaprozin 600 mg TAKE 1 TABLET [...] a day for 30 days 10/04/2023 Active DULoxetine HCl 60 MG 1 capsule Orally On ce a day for 30 days 03/06/2024 Active Levothyroxine Sodium 100 MCG 1 tablet in the morning on an empty stomach Orally Once a day for 30 days 12/30/2024 Active lamoTRIgine 200 MG 1 1/2 tablet Orally Once a day for 90 days 02/08/2025 Active Immunizations Vaccine Route Administration Date Status Comme nts Flu, Flucelvax (2838-9098) (06548) 6 mos and older, multi-dose vial IM [...] Problem Status W/U Status Risk Notes Problem 75240115 Essential (primary) hypertension (I10) Active confirmed Problem Hypomagnesemia (015754674) Hypomagnesemia (E83.42) Active confirmed Problem 0427573 Primary insomnia (F51.01) Active confirmed Problem 89936642 Orthostatic hypotension (I95.1) Active confirmed Problem 1301194 Unspecified chronic gastritis without bleeding (K29.50) Active confirmed Problem 51861044 Radiculopathy, cervical region (M54.12) Active confirmed Problem 901448900 Impingement syndrome of unspecified shoulder (M75.40) Active confirmed Problem 32783853 Paresthesia of skin (R20.2) Active confirmed Problem Gastroesophageal reflux disease (434389479) GERD (gastroesophageal reflux disease) (K21.9) Active confirmed Problem Essential hypertension (86921945) Benign essential HTN (I10) Active confirmed Problem Acid reflux (047909194) Acid reflux (K21.9) Active confirmed Problem Migraine (63559114) Migraine (G43.909) Active confirmed Problem Well adult (384982370) Well adult (Z00.00) Active confirmed Problem Paresthesia (36143825) Paresthesia (R20.2) Active confirmed Problem Cellulitis (096066785) Cellulitis (L03.90) Active confirmed Problem Mass of neck (555447122) Neck mass (R22.1) Active confirmed Problem Arthralgia of the ankle and/or foot (569663668) Ankle pain, right (M25.571) Active confirmed Problem Goiter (6367663) Enlarged thyroi d (E04.9) Active confirmed Problem Malignant tumor of thyroid gland (856826347) Papillary carcinoma of thyroid (C73) Active confirmed Problem Non-toxic single thyroid nodule (711299986) Right thyroid nodule (E04.1) Active confirmed Problem Essential hypertension (34884818) BP (high blood pressure) (I10) Active confirmed Problem 22808027 Pure hypercholesterole stefan, unspecified (E78.00) Active confirmed Problem 899134909 Headache, unspecified (R51.9) Active confirmed Vital Signs Blood pressure diastolic 84 mm Hg 01/19/2025 Height 64 in 01/19/2025 Blood pressure systolic 132 mm Hg 01/19/2025 Weight 275 lbs 01/19/2025 BMI 47.2 kg/m2 01/19/2025 Procedures Procedure Date Ordered Date Performed Result Body Sit e CARDIO Echocardiogram 04/15/2024 N/A Encounters Encounter Location Date Provider Diagnosis [facility] [address] [place] [address] 03/30/2024 Ramón Brooke Impingement syndrome of unspecified shoulder M75.40 and Essential (primary) hypertension I10 [id number] [place] [address] 04/15/2024 Ramón Brooke Orthostatic hypotens ion I95.1 ; Essential (primary) hypertension I10 ; Hypomagnesemia E83.42 and Paresthesia R20.2 [facility] [address] [place] [address] 05/21/2024 Ramón Hoy Ankle pain, right M2 5.571 and Radiculopathy, cervical region M54.12 [facility] [address] [facility] [address] 09/09/2024 Ramón Hoy Acute bronchitis, unspecified organism J20.9 [facility] [address] [facility] [address] 12/07/2024 Ramón Hoy Orthostatic hypotens ion I95.1 and Essential (primary) hypertension I10 [facility] [address] [facility] [address] 01/19/2025 Ramón Hoy Cellulitis L03.90 ; Laceration of hand S61.419A and Encounter for immunization Z23 [facility] [address] [facility] [address] 04/14/2024 Ramón Rangely [facility] [address] [facility] [place] [address] 04/20/2024 Ramón Hoy [facility] [address] [facility] [address] 04/30/2024 Ramón Hoy [facility] [address] [facility] [address] 05/18/2024 Ramón Hoy Hypomagnesemia E83.4 2 [facility] [address] [facility] [address] 05/22/2024 Ramón Hoy Ankle pain, right M2 5.571 [facility] [address] [facility] [place] [address] 06/04/2024 Ramón Hoy [facility] [address] [facility] [place] [address] 06/15/2024 Ramón Hoy [facility] [address] [facility] [place] [address] 06/30/2024 Ramón Hoy Enlarged thyroid E04 .9 [facility] [address] [facility] [place] [address] 07/04/2024 Ramón Hoy [facility] [address] [facility] [address] 08/03/2024 Ramón Brooke [facility] [address] [facility] [address] 08/10/2024 Ramón Brooke [facility] [address] [facility] [place] [address] 08/18/2024 Ramón Brooke [facility] [address] [facility] [place] [address] 08/24/2024 Ramón Brooke Right thyroid nodule E04.1 [facility] [address] [facility] [address] 2024 Ramón Brooke [facility] [address] [facility] [address] 09/13/2024 Ramón Brooke [facility] [address] [facility] [place] [address] 09/15/2024 Ramón Brooke [facility] [address] [facility] [address] 10/23/2024 Ramón Brooke Well adult Z00.00 ; Essential (primary) hypertension I10 ; Pure hypercholesterolemia, unspecified E78.00 ; Hypomagnesemia E83.42 and Papillary carcinoma of thyroid C73 [facility] [address] [facility] [address] 10/25/2024 Ramón Brooke Enlarged thyroid E04 .9 and Dehydration E86.0 [facility] [address] [facility] [place] [address] 11/02/2024 Ramón Brooke [facility] [address] [facility] [place] [address] 03/28/2024 Ramón Brooke [facility] [address] [facility] [address] 03/29/2024 Ramón Brooke [facility] [address] [facility] [address] 04/04/2024 Ramón Brooke Orthostatic hypotens ion I95.1 [facility] [address] [facility] [address] 04/14/2024 Ramón Brooke Shakiness R25.1 [facility] [address] [place] [address] 05/01/2024 Ramón Brooke Hypomagnesemia E83.4 2 [facility] [address] [place] [address] 05/06/2024 Ramón cande [facility] [address] [place] [address] 05/16/2024 Ramón cande [facility] [address] [place] [address] 06/02/2024 Ramón cande [facility] [address] [place] [address] 06/05/2024 Ramón [facility] [address] [place] [address] 06/09/2024 Ramón Brooke Ankle pain, right M2 5.571 [facility] [address] [place] [address] 08/24/2024 Ramón cande [facility] [address] [place] [address] 09/04/2024 Ramón cande [facility] [address] [place] [address] 09/11/2024 Ramón [facility] [address] [place] [address] 09/30/2024 Ramón Brooke [facility] [address] [place] [address] 10/05/2024 Ramón Brooke [facility] [address] [place] [address] 10/26/2024 Ramón cande [facility] [address] [place] [address] 11/05/2024 Ramón cande [facility] [address] [place] [address] 11/30/2024 Ramón cande [facility] [address] [place] [address] 11/30/2024 Ramón Brooke [facility] [address] [facility] [place] [address] 11/30/2024 Ramón Brooke [facility] [address] [facility] [place] [address] 12/14/2024 Ramón Edwardo [facility] [address] [facility] [place] [address] 12/28/2024 Ramón Brooke [facility] [address] [facility] [place] [address] 12/30/2024 Ramón Brooke [facility] [address] [facility] [place] [address] 01/17/2025 Ramón Brooke [facility] [address] [facility] [place] [address] 01/18/2025 Ramón Brooke [facility] [address] [facility] [place] [address] 01/18/2025 Ramón Brooke [facility] [address] [facility] [place] [address] 01/21/2025 Ramón Brooke [facility] [address] [facility] [place] [address] 01/30/2025 Ramón Brooke [facility] [address] [facility] [place] [address] 02/01/2025 Ramón Brooke [facility] [address] [facility] [place] [address] 02/07/2025 Ramón Brooke [facility] [address] [facility] [place] [address] 03/11/2025 Ramón Brooke [facility] [address] [facility] [place] [address] 03/11/2025 Raómn Brooke [facility] [address] [facility] [place] [address] 03/11/2025 Ramón Brooke [facility] [address] [facility] [place] [address] 03/17/2025 Ramón Brooke Orthostatic hypotens ion I95.1 [facility] [address] [facility] [address] 03/20/2025 Ramón Brooke Orthostatic hypotens ion I95.1 [facility] [address] [facility] [place] [address] 03/25/2025 Ramón Brooke [facility] [address] [facility] [place] [address] 03/25/2025 Ramón Brooke [facility] [address] [facility] [place] [address] 03/25/2025 Ramón Brooke Assessments Encounter Date Diagnosis (ICD Code) Assessment Notes Treatment Notes Treatment Clinical Notes Section Notes 03/30/2024 Impingement syndrome of unspecified shoulder (ICD-10 [...] vaporizer to help keep the drainage moist. Xeul-qzy-yswtkqz Nasal Saline may help the stuffy and runny nose. Use Ibuprofen and or Tylenol as needed for fever, chills, body aches or pain. Children 5 years old should not be given sbfe-khg-sddstyu cough and cold medications such as guaifenesin and dextromethorphan. If you're over age 5, you may try ecat-rhy-lizrswk cold medications such as guaifenesin and dextromethorphan, [...] 06/09/2024 Ankle pain, right (ICD-10 - M25.571) 03/17/2025 Orthostatic hypotension (ICD-10 - I95.1) 03/20/2025 Orthostatic hypotension (ICD-10 - I95.1) 10/23/2024 Pure hypercholesterolem ia, unspecified (ICD-10 - E78.00) 01/19/2025 Encounter for immunization (ICD-10 - Z23) 04/15/2024 Hypomagnesemia (ICD-10 - E83.42) 04/15/2024 Paresthesia (ICD-10 - R20.2) 10/23/2024 Hypomagnesemia (ICD-10 - E83.42) 10/23/2024 Papillary carcinoma of thyroid (ICD-10 - C73) Plan Of Treatment Pending Test Test Name Order Date CMP (COMPLETE METABOLIC PANEL) 3 HEMOGLOBIN A1C (GLYCO) 02/20/2023 IRON, TOTAL 02/20/2023 LIPID PANEL (CHOL/TRIG/HDL/LDL) 02/21/20 23 CBC WITH DIFF 02/20/2023 MRI Brain w/wo [...] PANEL (T4/TSH/FREE T3) 5 Vitamin D 10/23/2024 Insurance Providers Payer Name Payer Address Payer Phone Subscriber Number Group Number Insured Name Patient Relationship to Insured Coverage Start Date Coverage End Date [facility] [address] [place], [place] [id number] Keaton Ross Spouse - patient is the [...] Cyst Platar Fascitis Surgical History Surgery Date(Month/Year) EGD, Dr. Zuñiga 08/2022 Right Foot surgery x2 Tailbone surgery x 6 Tonsills Right Hemithyroidectomy- Dr Morales 5 Hospitalization History Reason Date(Month/Year) Migraine 05/2023
--- OUTSIDE RECORDS SUMMARY | 2025-03-28 11:19 | XMS_ITS | Encounter Summary ---
Author Organization [facility] Address [address] [place] [address] Care Team Providers Care Real Estate Lawyer Name Role Phone Felipe Brooke MD Primary Care Provider [phone] Willa Hanks DO Unavailable [phone] Edis Morales DO Unavailable Encounter Details Date Type Department Care Team (Late st Contact Info) Description 12/15/2024 Orders Only [facility] [address] [place] [address] Feilpe Brooke MD [address] [facility] [place] [address] Social History Tobacco Use Types Packs/Day Years [...] Care Team (Late st Contact Info) Description 08/09/2025 1:30 PM EST Office Visit [facility] [address] [place] [address] Edis Morales DO [address] [place] [address] documented as of this encounter Procedures Procedure Name Priority Date/Time Associated Diagnosis Comments SCANNED LABS Routine 12/15/2024 7:15 AM EDT documented in this encounter Results * SCANNED LABS (12/15/2024 7:15 AM EDT) us Felipe Brooke MD LAB CHG PERFORMABLES Final Resu lt documented in this encounter Visit Diagnoses Not on filedocumented in this encounter Care Teams Real Estate Lawyer Relationship Specialty Start Date End Date Felipe Brooke MD PCP - General Family Medicine 11/18/23 Willa Hanks DO [address] [place] [address] Referring Physician Neurology 11/18/23 Edis Morales DO [address] [place] [address] Otolaryngology 09/01/24 documented as of this encounter
--- OUTSIDE RECORDS SUMMARY | 2025-03-28 11:19 | XMS_ITS | Clinical Summary ---
Author Organization [facility] tem Address [id number] [address] [place] [address] Care Team Providers Care Station Master Name Role Phone Unavailable Primary Care Provider [...]
--- OUTSIDE RECORDS SUMMARY | 2025-03-28 11:19 | XMS_ITS | Patient Health Record ---
Author Organization [facility] Address [address] [place] [address] Care Team Providers Care Casing Wringer Operator Name Role Phone Felipe Brooke Primary Care Provider Paulino Giordano Unavailable [phone] Yvette Bunn Unavailable Results Component Value Reference Range Notes SCC- ANKLE 3 VIEW RIGHT 7361 0 Reviewed date:10/22/2024 12:37:31 PM Interpretation: Performing Lab: Notes/Report: Reason For Referral Reason APPROVED .......PLEA SE OBTAIN AUTHORIZATION FOR MRI RIGHT KNEE Diagnosis 1 Acute pain of right knee (M25.561) Referral Organization [facility] Referring Provider First Name Paulino Referring Provider Last Name Audra Referring Provider Speciality Orthopedic Surgery Referred Organization [facility] romeo Referred Address [place], [place], Procedure 1 MRI Joint Lower Ext w/o Dye (34910) General Notes Elle Olsen 025 01:15:16 PM >APPROVED [facility] Authorization #[id number] Tracking #[id number], VALID 12/08/2024-01/22/2025 COPY IN CHART MA NOTIFIED [...] 01/04/2025 Encounters Encounter Location Date Provider Diagnosis [address] [address] [facility] M25.571 and Closed avulsion fracture of distal end of right fibula, initial encounter S82.831A [address] [address] [place] [place] closed fracture of distal end of right fibula, initial encounter S82.831A [address] [address] [place]07[place] Acute pain of right knee M25.[address] [address] 01/04/2025 Paulino Zhu Sprain of medial collateral [...] right knee, initial encounter (ICD-10 - S83.411A) 06/29/2024 Other For the patient 's persistent [...] pain and effusion-pos sible meniscus tear 01/04/2025 Other For right knee MCL strain I recommended symptomatic treatment with crutches. She will follow-up in 4 weeks to reassess her progress and consider therapy at that time. Import medication Plan Of Treatment Pending Test Test Name Order Date MRI : Knee W/O Contrast Right - 17272 Insurance Providers Payer Name Payer Address Payer Phone Subscriber Number Group Number Insured Name Patient Relationship to Insured Coverage Start Date Coverage End Date [facility] Dian Hackett [address] [place] [address] [id number] ALEX FIELD Spouse - patient is the spouse of the insured 5 Medical (General) History Medical History History ICD Code Depression Tachycardia: Mental Illness: GI Problems: Stomach ulcers sto Surgical History Surgery Date(Month/Year) Tonsillectomy Hand surgery 08/2022 Foot surgery
--- OUTSIDE RECORDS SUMMARY | 2025-03-28 11:19 | XMS_ITS | Clinical Summary ---
Author Organization [facility] Address [address] [place] [address] Care Team Providers Care Director Of Procurement Name Role Phone Felipe Brooke MD Primary Care Provider [phone] Willa Hanks DO Unavailable [phone] Opaljames Edis Gilda DO Unavailable [phone] Allergies Active Allergy Reactions Criticality Noted Date [...] Active DULoxetine (Cymbalta) [address] capsule 4 Active triamterene-hydroc hlorothiazide (Maxzide) 75-50 MG tablet 4 Active potassium chloride CR (K-Tab) 20 MEQ ER tablet Take 20 mEq by mouth Take with food. 4 Active tiZANidine (Zanaflex) 4 MG tablet 4 Active oxaprozin (Daypro) 600 MG tablet Take 600 mg by mouth Daily 4 Active lamoTRIgine (LaMICtal) 200 MG tablet 4 Active levothyroxine (Synthroid) 50 MCG tabletIndications: Status post partial thyroidectomy Take 1 tablet (50 mcg) by mouth in the morning. Take before meals. 30 tablet 1 5 Active cholecalciferol (Vitamin D-3) 50 MCG (2000 UT) tablet TAKE 1 TABLET BY MOUTH EVERY DAY FOR 90 DAYS 5 Active ferrous sulfate 325 (65 Fe) MG tablet 5 Active hydroCHLOROthiazid e (HYDRODiuril) 25 MG tablet Take 25 mg by mouth in the morning. 5 Active levothyroxine (Synthroid) 100 MCG tabletIndications: Status post partial thyroidectomy Take 1 tablet (100 mcg) by mouth in the morning. Take before meals. 30 tablet 2 5 05/02/20 25 Active Active Problems No known active problems Resolved Problems Problem Noted Date Diagnosed Date [...] Encounters Date Type Department Care Team Description 03/01/2025 Refill [facility] [address] [place] [address] Edis Morales, Status post partial thyroidectomy 02/01/2025 1:30 PM EDT Office Visit [facility] [address] [place] [address] Edis Morales, Malignant neoplasm of thyroid gland (HCC) (Primary Dx); Status post partial thyroidectomy 02/01/2025 Bamboo flowsheet [facility] [address] [place] [place] [address] Edis Morales, 02/01/2025 Travel from Last 3 Months Immunizations Immunization Administration [...] Oxygen Concentration - - Weight 124 kg (274 lb) 02/01/2025 1:41 PM EDT Height 160 cm (5' 3 ) 02/01/2025 1:41 PM EDT Body Mass Index 48.54 02/01/2025 1:41 PM EDT Plan of Treatment Upcoming Encounters Date Type Department Care Team (Late st Contact Info) Description 08/09/2025 1:30 PM EST Office Visit [facility] [address] [place] [address] Edis Morales DO [address] [place] [address] Procedures Procedure Name Priority Date/Time Associated Diagnosis Comments THYROGLOBULIN Routine 02/10/2025 10:08 AM EDT Status post partial thyroidectomy TSH Routine 01/30/2025 1:34 PM EDT Malignant neoplasm of thyroid gland (HCC) Status post partial thyroidectomy T4 (THYROXINE), TOTAL Routine 01/30/2025 1:34 PM EDT Malignant neoplasm of thyroid gland (HCC) Status post partial thyroidectomy from Last 3 Months Results * Thyroglobulin (02/10/2025 10:08 AM EDT) Blood Venous blood specimen / Unknown Edis Morales DO LAB BLOOD ORDERABLES Final Result Performing Organization Address [facility] Co de Phone Number [facility] [address] [place] [address], * TSH (01/30/2025 1:34 PM EDT) Blood Venous blood specimen / Unknown us Edis Morales DO LAB BLOOD ORDERABLES Final Result EXTERNAL LAB * T4 (01/30/2025 1:34 PM EDT) Blood Venous blood specimen / Unknown Edis Morales DO LAB BLOOD ORDERABLES Final Result Performing Organization Address City/[facility]/ZIP Co de Phone Number EXTERNAL LAB from Last 3 Months Insurance [employer] Care Teams Director Of Procurement Relationship Specialty Start Date End Date Felipe Brooke MD PCP - General Family Medicine 11/18/23 Willa Hanks DO [address] [place] [address] Referring Physician Neurology 11/18/23 Edis Morales DO [address] [place] [address] Otolaryngology 09/01/24
[2025-03-28 12:13] LABS: Hematocrit 38.1 % (36.0-48.0); Hemoglobin 12.8 g/dL (12.0-16.0); Mean Corpuscular HGB Conc 33.6 g/dL (29.9-35.2); Mean Corpuscular Hemoglobin 28.6 pg (26.7-34.0); Mean Corpuscular Volume 85.2 fL (81.0-99.0); Platelet Count 257 10^3/uL (150-450); Red Blood Count 4.47 10^6/uL (4.20-5.40); White Blood Count 9.7 10^3/uL (4.0-11.0)
[2025-03-28 12:31] LABS: Anion Gap 10.3; Blood Urea Nitrogen 14.0 mg/dL (7.0-18.0); Calcium 9.0 mg/dL (8.5-10.1); Carbon Dioxide 29.7 mmol/L (21.0-32.0); Chloride 100 mmol/L (98-107); Estimated GFR (African America >60 (>=60 mL/min/1.73m^2); Estimated GFR (Non-African Ame 57 (>=60 mL/min/1.73m^2); Glucose 102 mg/dL (74-106); Magnesium 1.7 mg/dL (1.8-2.4); Potassium 4.0 mmol/L (3.5-5.1); Sodium 136 mmol/L (136-145)
--- NOTE | 2025-03-28 13:11 | ED.WEAKNESS1 ---
HPI - Weakness General Chief complaint: Weakness Stated complaint: WEAKNESS DIZINESS Time Seen by Provider: 03/28/25 12:10 Source: patient Mode of arrival: walk-in Limitations: no limitations Related Data Home Medications ?Medication ?Instructions ?Recorded ?Confirmed acebutolol 200 mg capsule 200 mg PO BID 06/09/23 12/04/24 oxaprozin 600 mg tablet 600 mg PO DAILY 06/09/23 08/03/24 pantoprazole 40 mg tablet,delayed 40 mg PO Q12H 06/09/23 06/09/23 release phentermine 37.5 mg capsule 37.5 mg PO DAILY 06/09/23 06/09/23 tizanidine 4 mg tablet 8 mg PO BEDTIME 06/09/23 08/03/24 trazodone 50 mg tablet 50 mg PO BEDTIME 06/09/23 06/09/23 triamterene 75 1 tab PO DAILY 06/09/23 12/04/24 mg-hydrochlorothiazide 50 mg tablet duloxetine 60 mg capsule,delayed 60 mg PO DAILY 07/21/24 12/04/24 release dqsfg-dse-mzivlqcdic-C-zinc 6 ml PO PRN for illness 07/21/24 gram-38 mg-25 mg-34 mg/5 mL oral syrup lamotrigine 100 mg tablet 300 mg PO DAILY 07/21/24 12/04/24 pantoprazole 20 mg tablet,delayed 20 mg PO Q12H 07/21/24 12/04/24 release potassium chloride 20 mEq 40 meq PO DAILY 07/21/24 12/04/24 tablet,extended release(part/cryst) (Klor-Con M) sucralfate 1 gram tablet 1 g PO .before meals 07/21/24 12/04/24 cholecalciferol (vitamin D3) 50 2,000 unit PO DAILY 12/04/24 12/04/24 mcg (2,000 unit) capsule (Vitamin D3) ferrous sulfate 325 mg (65 mg 650 mg PO DAILY 12/04/24 12/04/24 iron) tablet tizanidine 4 mg tablet 4 mg PO TID neck pain 12/04/24 12/04/24 Previous Rx's ?Medication ?Instructions ?Recorded tobramycin 0.3 % eye drops 1 drp ophthalmic (eye) Q4H #5 mL 05/27/24 tramadol 50 mg tablet 50 mg PO TID PRN pain 3 days #9 01/20/24 tabs dicyclomine 10 mg capsule 10 mg PO QID PRN abdominal pain 03/26/24 #12 caps ondansetron 4 mg disintegrating 4 mg PO Q8H PRN nausea and 03/26/24 tablet vomiting 4 days #16 tabs ondansetron 4 mg disintegrating 4 mg PO Q6H PRN nausea and 09/12/24 tablet vomiting #10 tabs prednisone 20 mg tablet 40 mg (2 x 20 mg) PO DAILY 5 days 12/04/24 #10 tabs Allergies Allergy/AdvReac Type Severity Reaction Status Date / Time irbesartan Allergy Severe hypotension Verified 03/28/25 11:24 and renal insufficiency silver Allergy Severe Hives Verified 03/28/25 11:24 PFSH FOR[facility] Medical History (Updated 03/28/25 @ 13:39 by DENZEL BARRERA) Thyroid cancer ?C73 - Malignant neoplasm of thyroid gland (ICD-10) Anxiety and depression ?F41.9 - Anxiety disorder, unspecified (ICD-10) ?F32.A - Depression, unspecified (ICD-10) Acute intractable headache ?R51.9 - Headache, unspecified (ICD-10) Surgical History (Updated 08/03/24 @ 11:12 by Samantha Porter) H/O fine needle aspiration with imaging guidance ?Z98.890 - Other specified postprocedural states (ICD-10) H/O thumb surgery ?Z98.890 - Other specified postprocedural states (ICD-10) History of excision of pilonidal cyst ?Z98.890 - Other specified postprocedural states (ICD-10) H/O fasciotomy ?Z98.890 - Other specified postprocedural states (ICD-10) [place] teeth removed ?K08.409 - Partial loss of teeth, unspecified cause, unspecified class (ICD-10) History of tonsillectomy and adenoidectomy ?Z90.89 - Acquired absence of other organs (ICD-10) Social History Smoking status: Never smoker Little interest or pleasure in doing things: not at all Feeling down, depressed, or hopeless: not at all Exam Constitutional Vital Signs, click to edit/add: Last Vital Signs Temp 98.6 F 03/28/25 11:19 Pulse 78 03/28/25 11:19 Resp 18 03/28/25 11:19 BP 151/88 H 03/28/25 11:19 Pulse Ox 99 03/28/25 11:19 O2 Del Method Room Air 03/28/25 11:19 Course Vital Signs Vital signs: Vital Signs Temperature 98.6 F 03/28/25 11:19 Pulse Rate 78 03/28/25 11:19 Respiratory Rate 18 03/28/25 11:19 Blood Pressure 151/88 H 03/28/25 11:19 Pulse Oximetry 99 03/28/25 11:19 Oxygen Delivery Method Room Air 03/28/25 11:19 Temperature 98.6 F 03/28/25 11:19 Pulse Rate 78 03/28/25 11:19 Respiratory Rate 18 03/28/25 11:19 Blood Pressure 151/88 H 03/28/25 11:19 Pulse Oximetry 99 03/28/25 11:19 Oxygen Delivery Method Room Air 03/28/25 11:19 MDM - Weakness MDM Narrative Medical decision making narrative: Patient presents to the ED with a complaint of fatigue. She states she has been fatigued for the past multiple days. In the past she has had hypokalemia of low magnesium which is caused her to feel like this. She is very concerned that that may be a possibility. Patient denies headache fever or chills. No recent injury or illness. She is eating and drinking normally. No abdominal pain. No shortness of breath, no chest pain, no abdominal pain, no nausea, but no vomiting. Patient has not tried any thing to eliminate her fatigue recently. She has not been exposed to heat she does not feel she is dehydrated. Patient is alert and oriented in no acute distress. She is resting comfortably in her bed. Patient is obese female. Pupils equal and reactive HEENT exam is unremarkable. No nuchal rigidity no lymphadenopathy. Heart lung sounds are unremarkable. Abdomen is soft and nontender. Patient is pleasant and interactive appropriately. Patient does not have any positive exam findings. Patient's mentation is normal. Patient's vital signs remain normal throughout her showed her to be hypertensive on initial visit. She does take medication for hypertension. She did take it today. Patient's lab values did not show any significant changes. Her creatinine was little elevated but is baseline for her. Her potassium is 4.0. Magnesium is 1.7. Magnesium is just very slightly decreased. Patient does not show evidence of anemia, leukocytosis, urinary tract infection. Patient is eating and drinking normally here in the ED. She does not exhibit any other symptoms here in the ED. Her main concern was that her potassium was too low. Neurologically patient is intact. Recommended patient follow-up with her PCP. She can return with any worsening or concerning symptoms. Medical Records Attestation: I reviewed the patient's medical records. Lab Data Attestation: I reviewed the patient's lab results. Labs: Lab Results 03/28/25 03/28/25 Range/Units 11:45 13:15 WBC 9.7 (4.0-11.0) 10^3/uL RBC 4.47 (4.20-5.40) 10^6/uL Hgb 12.8 (12.0-16.0) g/dL Hct 38.1 (36.0-48.0) % MCV 85.2 (81.0-99.0) fL MCH 28.6 (26.7-34.0) pg MCHC 33.6 (29.9-35.2) g/dL RDW 14.9 (11.0-15.0) % Plt Count 257 (150-450) 10^3/uL MPV 9.2 L (9.5-13.5) fL Sodium 136 (136-145) mmol/L Potassium 4.0 (3.5-5.1) mmol/L Chloride 100 (98-107) mmol/L Carbon Dioxide 29.7 (21.0-32.0) mmol/L Anion Gap 10.3 BUN 14.0 (7.0-18.0) mg/dL Creatinine 1.10 H (0.55-1.02) mg/dL Est GFR ( Amer) >60 (>=60 mL/min/1.73m^2) Est GFR (Non-Af Amer) 57 L (>=60 mL/min/1.73m^2) BUN/Creatinine Ratio 12.7 Glucose 102 (74-106) mg/dL Calcium 9.0 (8.5-10.1) mg/dL Magnesium 1.7 L (1.8-2.4) mg/dL Urine Color Lt. yellow (YELLOW) Urine Clarity Clear (CLEAR) Urine pH 6.0 (5.0-9.0) Ur Specific [place] 1.015 (1.005-1.025) Urine Protein Negative (NEG/TRACE) mg/dL Urine Glucose (UA) Negative (NEGATIVE) mg/dL Urine Ketones Negative (NEGATIVE) mg/dL Urine Occult Blood Negative (NEGATIVE) Urine Nitrite Negative (NEGATIVE) Urine Bilirubin Negative (NEGATIVE) Urine Urobilinogen 0.2 (0.2-1.0) EU/dL Ur Leukocyte Esterase Trace A (NEGATIVE) Discharge Plan Discharge Chief Complaint: Weakness Clinical Impression: Fatigue, Hypomagnesemia, Elevated blood pressure reading in office with diagnosis of hypertension Patient Disposition: Home, Self-Care Time of Disposition Decision: 13:37 Condition: Good Prescriptions / Home Meds: No Action tobramycin 0.3 % drops 1 drp ophthalmic (eye) Q4H Qty: 5 0RF Rx Instructions: please apply to the left eye tramadol 50 mg tablet 50 mg PO TID PRN (Reason: pain) 3 Days Qty: 9 0RF dicyclomine 10 mg capsule 10 mg PO QID PRN (Reason: abdominal pain) Qty: 12 0RF ondansetron 4 mg tablet,disintegrating 4 mg PO Q8H PRN (Reason: nausea and vomiting) 4 Days Qty: 16 0RF duloxetine 60 mg capsule,delayed release(DR/EC) 60 mg PO DAILY lamotrigine 100 mg tablet 300 mg PO DAILY sucralfate 1 gram tablet 1 g PO .before meals pantoprazole 20 mg tablet,delayed release (DR/EC) 20 mg PO Q12H lxbze-ing-qjfzezimkf-C-zinc 6 gram-38 mg- 25 mg-34 mg/5mL syrup PO PRN (Reason: for illness) potassium chloride [Klor-Con M20] 20 mEq tablet,ER particles/crystals 40 meq PO DAILY ondansetron 4 mg tablet,disintegrating 4 mg PO Q6H PRN (Reason: nausea and vomiting) Qty: 10 0RF tizanidine 4 mg tablet 4 mg PO TID cholecalciferol (vitamin D3) [Vitamin D3] 50 mcg (2,000 unit) capsule 2,000 unit PO DAILY ferrous sulfate 325 mg (65 mg iron) tablet 650 mg PO DAILY prednisone 20 mg tablet 40 mg PO DAILY 5 Days Qty: 10 0RF acebutolol 200 mg capsule 200 mg PO BID oxaprozin 600 mg tablet 600 mg PO DAILY pantoprazole 40 mg tablet,delayed release (DR/EC) 40 mg PO Q12H phentermine 37.5 mg capsule 37.5 mg PO DAILY tizanidine 4 mg tablet 8 mg PO BEDTIME trazodone 50 mg tablet 50 mg PO BEDTIME triamterene-hydrochlorothiazid 75-50 mg tablet 1 tab PO DAILY Print Language: Tajik Instructions: Chronic Hypertension (DC), Hypomagnesemia (ED), Fatigue (ED) Referrals: Felipe Brooke MD [Primary Care Provider, Family Practice] - 1 week
[2025-03-28 13:25] LABS: Glucose Urine UA NEGATIVE (NEGATIVE)
[2025-03-28 13:34] LABS: Cast Seen? NONE SEEN #/LPF (NONE SEEN); Crystals Seen? None Seen #/HPF (None Seen); Urine Culture Indicated NO
--- NOTE | 2025-03-28 17:39 | ECG_ITS ---
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 Measurements Intervals [place] Rate: 68 P: 33 NH: 128 QRS: 40 QRSD: 94 T: 20 QT: 384 QTc: 401 Interpretive Statements 1100 Sinus rhythm 1102 Sinus arrhythmia 4068 Nonspecific Twave abnormality 9130 borderline ECG Compared to ECG 06/13/2023 11:17:27 No significant changes Electronically Signed On 03-28-2025 18:53:27 EDT by ELIZABETH BECK M.D.
== END 2025-03-28 13:57 | disposition home or self-care (01) ==
PROVIDERS: Physician Assistant; Emergency Provider Student in an Organized Health Care Education/Training Program; PCP Family Medicine
DX: E83.42 Hypomagnesemia (principal); I10 Essential (primary) hypertension; Z79.899 Other long term (current) drug therapy; R53.83 Other fatigue
CPT/HCPCS: 36415; 80048; 81001; 83735; 85027; 93005; 99283

== ENCOUNTER 2025-08-14 16:02 | Emergency (ER) | payer OTHER, SELFPAY ==
--- OUTSIDE RECORDS SUMMARY | 2024-07-13 06:20 | XMS_ITS ---
Author Organization [facility] Address [address] [place] [address] Care Team Providers Care Machine Rebuilder Name Role Phone Felipe Brooke Primary Care Provider Paulino Giordano Unavailable [phone] REASON FOR VISIT RIGHT DISTAL FIB AVULSION FX Encounters Encounter Location Date Provider Diagnosis [facility] [facility] [address] [place] [address] [place] [address] 07/13/2024 Paulino Zuh Plan Of Treatment No Information Progress Notes * RASHIDA JAREK RDOB: [birth year] (34 yo F)Acc No.[id number]:07/13/2024 Patient:?RASHIDA JAREK Edwige :?Paulino Zhu, MDDOB:1990???Age:33 Y ???Sex:FemaleDate:4Phone:[phone]:[address] [place], [id number]:Felipe Brooke Subjective: * Chief Complaints: * 1 . RIGHT DISTAL FIB AVULSION FX. * Medical History: Objective: * Vitals: Assessment: Plan: * Treatment: Forms: * Images: * Electronic signature of Paulino Zhu MD on 08/14/2025 at 04:28 PM ESTSign off status: Pending * Provider: Lynette Zhu MD Date: 09/12/2023 Generated for Printing/Faxing/eTransmitting on:?08/14/2025 04:28 PM EST
--- OUTSIDE RECORDS SUMMARY | 2024-08-31 05:20 | XMS_ITS ---
Author Organization [facility] Address [address] [place] [address] Care Team Providers Care Drying Machine Back Tender Name Role Phone Felipe Brooke Primary Care Provider Paulino Giordano Unavailable [phone] Results Component Value Reference Range Notes SCC- TIB/FIB RIGHT 34838 Reviewed date:09/03/2024 04:07:08 PM Interpretation: Performing Lab: Notes/Report: REASON FOR VISIT RT ANKL FX CHECK Encounters Encounter Location Date Provider Diagnosis [facility] Office [address] [place] [address] [place] [address] 08/31/2024 Paulino Zhu Other closed fracture of distal end of right fibula, initial encounter S82.831A and Closed avulsion fracture of distal end of right fibula, initial encounter S82.831A Assessments Encounter Date Diagnosis (ICD Code) Assessment Notes Treatment Notes Treatment Clinical Notes Section Notes 08/31/2024 Other closed fractur e of distal end of right fibula, initial encounter (ICD-10 - S82.831A) 5Closed avulsion fracture of distal end of right fibula, initial encounter (ICD-10 - S82.831A) Plan Of Treatment No Information Progress Notes * JAREK FIELD RDOB: [birth year] (34 yo F)Acc No.[id number]:08/31/2024 Patient:?JAREK FIELD :?Paulino Zhu MDDOB:1990???Age:34 Y ???Sex:FemaleDate:08/31/2024Phone:[phone]:[address] [place], [id number]:Felipe Brooke Subjective: * Chief Complaints: * 1 . RT ANKL FX CHECK. * Medical History: Objective: * Vitals: Assessment: * Assessment: 1.?Other closed fracture of distal end of right fibula, initial encounter - S82.831A? ?2.?Closed avulsion fracture of distal end of right fibula, initial encounter - S82.831A ?? Plan: * Treatment: ?Imaging: SCC- TIB/FIB RIGHT 80630 (Performed Date - 09/03/2024)2.?Closed avulsion fracture of distal end of right fibula, initial encounter?Imaging: SCC- TIB/FIB RIGHT 41395 (Performed Date - 09/03/2024) Forms: * Images: * Electronic signature of Paulino Zhu MD on 08/14/2025 at 04:29 PM ESTSign off status: Pending * Provider: Lynette Zhu MD Date: 0 08/31/2024 Generated for Printing/Faxing/eTransmitting on:?08/14/2025 04:29 PM EST
--- OUTSIDE RECORDS SUMMARY | 2024-10-05 04:15 | XMS_ITS ---
Author Organization 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 Name Role Phone Ramón Brooke Primary Care Provider [phone] REASON FOR VISIT wt Encounters Encounter Location Date Provider Diagnosis [facility] [address] [place] [address] 10/05/2024 Ramón Brooke Plan Of Treatment No Information Progress Notes * Veronica ROSS RDOB: [birth year] (34 yo F)Acc No.[id number]:10/05/2024 UNLOCKED PROGRESS NOTE Progress Note Patient: Veronica CARROLL :?Felipe Brooke (ANDER), MDDOB:1990???Age: 34 Y???Sex:FemaleDate:10/05/2024Phone:[phone]:[address] [place], [id number] Subjective: * Chief Complaints: * 1 . Wt. * Medical History: Objective: * Vitals: Assessment: Plan: * Treatment: * * Electronic signature of Ramón Brooke MD, [phone] on 08/14/2025 at 04:29 PM EST Sign off status: PendingVisit Status:?CANC (Cancelled) * Provider: Ale Brooke MD (TTC) Date: 0 10/05/2024 Generated for Printing/Faxing/eTransmitting on:?08/14/2025 04:29 PM EST
--- OUTSIDE RECORDS SUMMARY | 2025-01-22 10:00 | XMS_ITS ---
Author Organization The [facility] in [place] Address [address] [place] [address] Care Team Providers Care Animal Caretaker Supervisor Name Role Phone Ramón Brooke Primary Care Provider [phone] REASON FOR VISIT finger needs drained Encounters Encounter Location Date Provider Diagnosis [facility] [address] [facility] [place] [address] 01/22/2025 Ramón Brooke Plan Of Treatment No Information Progress Notes * Veronica ROSS RDOB: [birth year] (34 yo F)Acc No.[id number]:01/22/2025 UNLOCKED PROGRESS NOTE Progress Note Patient: Veronica CARROLL :?Felipe Brooke (ANDER), MDDOB:1990???Age: 34 Y???Sex:FemaleDate:01/22/2025Phone:[phone]:[address] [place], [id number] Subjective: * Chief Complaints: * 1 . Finger needs drained. * Medical History: Objective: * Vitals: Assessment: Plan: * Treatment: * * Electronic signature of Ramón Brooke MD, [id number] on 08/14/2025 at 04:28 PM EST Sign off status: PendingVisit Status:?CANC (Cancelled) * Provider: Ale Brooke MD (TTC) Date: 0 01/22/2025 Generated for Printing/Faxing/eTransmitting on:?08/14/2025 04:28 PM EST
--- OUTSIDE RECORDS SUMMARY | 2025-02-01 05:20 | XMS_ITS ---
Author Organization [facility] Address [address] [place] [address] Care Team Providers Care Fitter Welder Name Role Phone Felipe Brooke Primary Care Provider Paulino Giordano Unavailable [phone] REASON FOR VISIT RIGHT KNEE MCL STRAIN Encounters Encounter Location Date Provider Diagnosis [facility] [address] [place] [address] [place] [address] 02/01/2025 Paulino Zhu Plan Of Treatment No Information Progress Notes * JAREK FIELD RDOB: [birth year] (34 yo F)Acc No.[id number]:02/01/2025 Patient:?KIMANILUIZLaureanoJAREK :?Paulino Zhu, MDDOB:1990???Age:34 Y ???Sex:FemaleDate:02/01/2025Phone:[phone]:[address] [place], [id number]:Felipe Brooke Subjective: * Chief Complaints: * 1 . RIGHT KNEE MCL STRAIN. * Medical History: Objective: * Vitals: Assessment: Plan: * Treatment: Forms: * Images: * Electronic signature of Paulino Zhu MD on 08/14/2025 at 04:29 PM ESTSign off status: Pending * Provider: Lynette Zhu MD Date: 0 02/01/2025 Generated for Printing/Faxing/eTransmitting on:?08/14/2025 04:29 PM EST
--- OUTSIDE RECORDS SUMMARY | 2025-02-16 03:15 | XMS_ITS ---
Author Organization [facility] [place] Address [address] [place] [address] Care Team Providers Care Sales Data Analyst Name Role Phone Ramón Brooke Primary Care Provider REASON FOR VISIT Adipex Encounters Encounter Location Date Provider Diagnosis [facility] [address] [facility] [place] [address] 02/16/2025 Ramón Brooke Plan Of Treatment No Information Progress Notes * Vernoica ROSS RDOB: [birth year] (34 yo F)Acc No.[id number]:02/16/2025 UNLOCKED PROGRESS NOTE Progress Note Patient: Veronica CARROLL :?Felipe Brooke (ANDER), MDDOB:1990???Age: 34 Y???Sex:FemaleDate:02/16/2025Phone:[phone]:[address] [place], [id number] Subjective: * Chief Complaints: * 1 . Adipex. * Medical History: Objective: * Vitals: Assessment: Plan: * Treatment: * * Electronic signature of Ramón Brooke MD, [id number] on 08/14/2025 at 04:29 PM EST Sign off status: PendingVisit Status:?CANC (Cancelled) * Provider: Ale Brooke MD (TTC) Date: 0 02/16/2025 Generated for Printing/Faxing/eTransmitting on:?08/14/2025 04:29 PM EST
--- OUTSIDE RECORDS SUMMARY | 2025-08-10 06:39 | XMS_ITS ---
Author Organization [facility] [place] Address [address] [place] [address] Care Team Providers Care Odd Piece Checker Name Role Phone Ramón Brooke Primary Care Provider REASON FOR VISIT Iron- HOLD FOR LAB RESULTS Problems Problem Type SNOMED Code ICD Code Onset Dates Problem Status W/U Status Risk Notes Problem Anemia (242578859) Anemia (D64.9) Activeconfirmed Encounters Encounter Location Date Provider Diagnosis [facility] [address] [place] [address] 08/10/2025 Ramón Brooke Anemia D64.9 Assessments Encounter Date Diagnosis (ICD Code) Assessment Notes Treatment Notes Treatment Clinical Notes Section Notes 08/10/2025 Anemia (ICD-10 - D64.9) Plan Of Treatment Pending Test Test Name Order Date CBC W/AUTO DIFF 08/10/2025 FERRITIN 08/10/2025 IRON 08/10/2025 Progress Notes * Veronica ROSS RDOB: [birth year] (34 yo F)Acc No.[id number]:08/10/2025 UNLOCKED PROGRESS NOTE Patient:?Veronica ROSS :1990???Age:34 Y???Sex:FemalePhone:[phone] [address] [place], [address] Subjective: * Chief Complaints: * I deloris- HOLD FOR LAB RESULTS * Medical History: * Surgical History: * Hospitalization/Major Diagno stic Procedure: * Medications: Objective: * Vitals: * Physical Examination: ??? Assessment: * Assessment: 1.?Anemia - D64.9 (Primary)??? Plan: * Treatment: ?LAB: CBC W/AUTO DIFF ?LAB: FERRITIN ?LAB: IRON * Procedure Codes: * * Date:?
[2025-08-14] VITALS (10 sets, daily range): BP systolic 132–161; BP diastolic 80–99; PULSE 93–99; TEMP 37.4; O2SAT 94; BMI 47.7
--- NOTE | 2025-08-14 16:26 | ECG_ITS ---
[facility] Test Date: 2025-08-14 Pat Name: JAREK FIELD Department: Room: - Gender: Female Rejoiner: : 1990 Requested By: [id number] Order Number: [id number] Abelino MD: ELIZABETH BECK M.D. Measurements Intervals [place] Rate: 94 P: 26 VT: 130 QRS: 47 QRSD: 90 T: -25 QT: 354 QTc: 406 Interpretive Statements 1100 Sinus rhythm [address] depression 4364 Twave abnormality, possible anterolateral ischemia 9150 abnormal ECG Compared to ECG 03/28/2025 11:28:21 ST (T wave) deviation now present Possible ischemia now present Sinus arrhythmia no longer present Electronically Signed On 08-15-2025 7:16:20 EST by ELIZABETH BECK M.D.
--- OUTSIDE RECORDS SUMMARY | 2025-08-14 16:28 | XMS_ITS | Patient Health Record ---
Author Organization [facility] in [place] Address [address] [place] [address] Care Team Providers Care Tai Chi Instructor Name Role Phone Ramón Brooke Primary Care Provider [phone] Allergies Allergen (clinical drug ingredient) Drug/Non Drug Allergy documented on EMR Reaction Allergy Type Onset Date Status irbesartan Irbesartan Unknown Drug Allergy Active Results Component Value Reference Range Notes CBC AUTO DIFF Reviewed date:09/13/2024 02:02:33 PM Interpretation: Performing Lab: Notes/Report: [facility] [place] , White Blood Count 11.7 4.0-11.0 10 3/uL Red Blood Count5.224.20-5.40 10 6/qOPtcdzxtmxf06.512.0-16.0 g/iVRxznlnudkr59.9 36.0-48.0 %Mean Corpuscular Oenssg03.381.0-99.0 fLMean Corpuscular Hemoglobin 25.926.7-34.0 pgMean Corpuscular HGB Conc32.229.9-35.2 g/dLRed Cell Distribution Width14.411.0-15.0 %Platelet Qobmk181042-734 10 3/uLMean Platelet Volume8.99.5- 13.5 fLNeutrophils Percent Auto91.743.0-75.0 %Lymphocytes Percent Auto3.820.5- 60.0 %Monocytes Percent Auto3.31.7-12.0 %Eosinophils Percent Auto0.50.9-7.0 % Basophils Percent Auto0.30.2-2.0 %Immature Granulocytes Pct Auto0.40.0-0.5 % Neutrophils Absolute Auto10.71.4-6.5 10 3/uLLymphocytes Absolute Auto0.41.2-3.8 10 3/uLMonocytes Absolute Auto0.40.3-0.8 10 3/uLEosinophils Absolute Auto0.10.0- 0.7 10 3/uLBasophils Absolute Auto0.00.0-0.1 10 3/uLImmature Granulocytes Abs Auto0.050.00-0.03 10 3/uLPerforming Lab:see noteML - [facility] LB LIPASE Reviewed date:09/13/2024 02:02:33 PM Interpretation: Performing Lab: Notes/Report: [facility] [place] ,Lvuwub51.016.0-77.0 U/LPerforming Lab:see noteML - [facility] LBPROF 14(COMP METB) Reviewed date:09/13/2024 02:02:33 PM Interpretation: Performing Lab: Notes/Report: [facility] [place] ,Mthsej279647-532 mmol/LPotassium2.83.5-5.1 mmol/L RESULTS CALLED TO LISA Chen, RN @BY [employer] [place] at 0151 Irgjhyld56459-857 mmol/LCarbon Uechtbs23.721.0-32.0 mmol/LAnion Gap15.1Glucose 92532-209 mg/dLBlood Urea Ftkmbspj60.07.0-18.0 mg/dLCreatinine1.430.55-1.02 mg/dLEstimated GFR ( Eljcnun85>=60 mL/min/1.73m 2Estimated GFR (Non- Ame42>=60 mL/min/1.73m 2BUN Creatinine Ratio11.9Gbyfuak9.28.5-10.1 mg/dL Bilirubin Total0.40.2-1.0 mg/dLAspartate Amino Kmkpszcooon9623-06 U/LAlanine Xnvxxlmedzajikeg0592-90 U/LAlkaline Pkxhsclbfih0231-379 U/LTotal Protein8.06.4- 8.2 g/dLAlbumin Level3.43.4-5.0 g/dLGlobulin4.6Albumin Globulin Ratio0.7 Performing Lab:see noteML - [facility] LBFREE T3 Reviewed date:10/25/2024 12:48:38 PM Interpretation: Performing Lab: Notes/Report: [facility] [place] ,Free T32.662.18-3.98 pg/mLPerforming Lab:see note - [facility] LB PROF 14(COMP METB) Reviewed date:10/25/2024 12:48:38 PM Interpretation: Performing Lab: Notes/Report: [facility] [place] ,Ocfzps295176-240 mmol/LPotassium3.83.5-5.1 mmol/JXkwxobrb63153-728 mmol/LCarbon Eqldkcn56.921.0-32.0 mmol/LAnion Gap12.9Jeoadyc7504-621 mg/dLBlood Urea Nitrogen 14.07.0-18.0 mg/dLCreatinine1.240.55-1.02 mg/dLEstimated GFR ( Depgpam83 >=60 mL/min/1.73m 2Estimated GFR (Non- Ame50>=60 mL/min/1.73m 2BUN Creatinine Ratio11.9Efylzek0.08.5-10.1 mg/dLBilirubin Total0.40.2-1.0 mg/dL Aspartate Amino Pbnyzxvmuyo4084-26 U/LAlanine Lkhsbnxfkkgferxz6253-69 U/L Alkaline Qvcnxejbhek8403-294 U/LTotal Protein7.16.4-8.2 g/dLAlbumin Level3.83.4- 5.0 g/dLGlobulin3.3Albumin Globulin Ratio1.2Performing Lab:see noteML - [facility] LBT4 Reviewed date:10/25/2024 12:48:38 PM Interpretation: Performing Lab: Notes/Report: [facility] [place] ,T4 Thyroxine9.104.80-13.90 ug/dLPerforming Lab:see noteML - [facility] LBTSH Reviewed date:10/25/2024 12:48:38 PM Interpretation: Performing Lab: Notes/Report: [facility] [place] ,Thyroid Stimulating Hormone5.0610.358-3.740 uIU/mLPerforming Lab:see note - [facility] LBVITAMIN D 25 [place] Reviewed date:10/25/2024 12:48:38 PM Interpretation: Performing Lab: Notes/Report: [facility] [place] ,Vitamin D15.1 <20 ng/mL Vit D deficient 20-<30 ng/mL Vit D insufficient 30-100 ng/mL Vit D sufficient >100 ng/mL Potential Toxicity Performing Lab:see note - [facility] LBTriiodothyronine (T3) Reviewed date:12/01/2024 03:31:42 PM Interpretation: Performing Lab: Notes/Report: [facility] ,Triiodothyronine (T3)8371-180 ng/dL Performed at: [address] [id number] Chore Tender: Cory De Leon PhD, Phone: [phone] Performing Lab:[facility] LBTriiodothyronine (T3) Reviewed date:01/31/2025 01:44:39 PM Interpretation: Performing Lab: Notes/Report: [facility] ,Triiodothyronine (T3)92716-819 ng/dL Performed at: [address] [id number] Chore Tender: Cory De Leon PhD, Phone: [employer] Performing Lab:see [facility] LBTSH Reviewed date:01/30/2025 05:20:26 PM Interpretation: Performing Lab: Notes/Report: [facility] [place] ,Thyroid Stimulating Hormone4.7780.358-3.740 uIU/mLPerforming Lab:see note - [facility] LBT4 Reviewed date:01/30/2025 05:20:26 PM Interpretation: Performing Lab: Notes/Report: [facility] [place] ,T4 Cmhvprity65.004.80-13.90 ug/dLPerforming Lab:see note - [facility] wo con Reviewed date:12/28/2024 02:59:13 PM Interpretation: Performing Lab: Notes/Report: Source Facility: [facility] [place]-[address] [place] [address] [place] [address] Magnetic Resonance Report Signed Patient: VERONICA ROSS MR#: [id number] : 1990 Acct:[id number] Age/Sex: 34 / F ADM Date: 12/28/24 Loc: MRI Attending Dr: Yvette MAHONEY Ordering Physician: Yvette Smith Date of Service: 12/28/24 Procedure(s): MR knee RT wo con Accession Number(s): [id number] cc: Felipe Brooke M.D.; Yvette Smith [place] [address] Patient Name: VERONICA ROSS MRN: [facility]:[id number] date: 1990 Sex: F Assigned Patient Location: MRI Current Patient Location: MRI Accession/Order Number: [id number] Exam Date: 12/28/2024 11:58 Report Date: 12/28/2024 [...] Jr., D.O. 12/28/2024 12:04 PM Dictation Location: [place] [address] Electronically authenticated by: [id number] Y Date: 12/28/2024 12:04 Dictated By: Willie Dong M.D. Signed By: 12/28/24 1207 DD/ 1204 TD/TT: Insole Taper:SHANNON Reviewed date:11/30/2024 07:14:31 PM Interpretation: Performing Lab: Notes/Report: [facility] [place] ,Thyroid Stimulating Hormone3.4590.358-3.740 uIU/mLPerforming Lab:see noteML - [facility] LBTHYROGLOBULIN Reviewed date:12/07/2024 08:31:54 PM Interpretation: Performing Lab: Notes/Report: [place] ,Thyroglobulin (TG-ASHOK)11. ng/mL This test was developed and its [...] quantitation limit is 2.0 ng/mL. Performed at: [employer] [address] [place] [id number] Chore Tender: Osmar Watkins MD, Phone: [phone] Performing Lab:see noteLC - [facility] LBT4 Reviewed date:11/30/2024 07:14:31 PM Interpretation: Performing Lab: Notes/Report: [facility] [place] ,T4 Vfwnyifbp25.904.80-13.90 ug/dLPerforming Lab:see noteML - [facility] LBPROF 14(COMP METB) Reviewed date:11/30/2024 07:14:31 PM Interpretation: Performing Lab: Notes/Report: [facility] [place] ,Lqtqwe718963-583 mmol/LPotassium3.73.5-5.1 mmol/PSahbybnv75793-521 mmol/LCarbon Kuudzuy81.221.0-32.0 mmol/LAnion Gap11.3Dksnfev56024-620 mg/dLBlood Urea Zzsnzatr78.07.0-18.0 mg/dLCreatinine1.230.55-1.02 mg/dLEstimated GFR ( Perri>60>=60 mL/min/1.73m 2Estimated GFR (Non- Ame50>=60 mL/min/1.73m 2 BUN Creatinine Ratio13.3Pjjzzmj6.68.5-10.1 mg/dLBilirubin Total0.30.2-1.0 mg/dL Aspartate Amino Cksryoavzyg7889-12 U/LAlanine Xvzdgpdqqfjgosnt7946-95 U/L Alkaline Ozkwxfwxkqd2893-164 U/LTotal Protein7.16.4-8.2 g/dLAlbumin Level3.63.4- 5.0 g/dLGlobulin3.5Albumin Globulin Ratio1.0Performing Lab:see noteML - [facility] LBFREE T3 Reviewed date:11/30/2024 07:14:31 PM Interpretation: Performing Lab: Notes/Report: [facility] [place] ,Free T32.392.18-3.98 pg/mLPerforming Lab:see noteML - [facility] LB LIPID PROFILE Reviewed date:10/25/2024 12:48:38 PM Interpretation: Performing Lab: Notes/Report: [facility] [place] ,Tosyrehkptgyo694<=150 mg/fGOflhsblkgix128<=200 mg/dLHDL Pvezkurnnkx6578-13 mg/dL > or =60 mg/dl - LOW CARDIOVASCULAR RISK <40 mg/dl - HIGH CARDIOVASCULAR RISK LDL Cholesterol Awbdcohkjx435.2 <100 mg/dl OPTIMAL 100-129 mg/dl NEAR OR ABOVE OPTIMAL 130-159 mg/dl BORDERLINE HIGH 160-189 mg/dl HIGH >190 mg/dl VERY HIGH VLDL AEWAVZGYVPB92.8Chol HDL Ratio3.7 3.3 - 4.4 LOW RISK 4.4 - 7.1 AVERAGE RISK 7.1 - 11.0 MODERATE RISK >11.0 HIGH RISK Performing Lab:see noteML - [facility] LBIRON Reviewed date:10/25/2024 12:48:38 PM Interpretation: Performing Lab: Notes/Report: [facility] [place] ,Iron39.050.0-170.0 ug/dLPerforming Lab:see noteML - [facility] LB GLYCOHEMOGLOBIN A1C Reviewed date:10/25/2024 12:48:38 PM Interpretation: Performing Lab: Notes/Report: [facility] [place] ,Glycohemoglobin A1C5.54.5-6.2 % ADA RECOMMENDED LIMIT 4.0 - 6.0 ADA THERAPEUTIC TARGET < 7.0 ACTION SUGGESTED > 7.0 Estimated Average Pcoyudz101Hixpphblys Lab:see noteML - [facility] [place] LB CBC AUTO DIFF Reviewed date:10/25/2024 12:48:38 PM Interpretation: Performing Lab: Notes/Report: [facility] [place] ,White Blood Count6.94.0-11.0 10 3/uLRed Blood Count4.674.20-5.40 10 6/uL Lnswljgqqa06.112.0-16.0 g/hNRtjehgrxqs08.036.0-48.0 %Mean Corpuscular Hjxxit31.4 81.0-99.0 fLMean Corpuscular Amsgtvdczl40.926.7-34.0 pgMean Corpuscular HGB Conc 31.829.9-35.2 g/dLRed Cell Distribution Width14.711.0-15.0 %Platelet Jxkur737 150-450 10 3/uLMean Platelet Volume9.29.5-13.5 fLNeutrophils Percent Auto71.3 43.0-75.0 %Lymphocytes Percent Auto19.920.5-60.0 %Monocytes Percent Auto5.91.7- 12.0 %Eosinophils Percent Auto1.60.9-7.0 %Basophils Percent Auto1.00.2-2.0 % Immature Granulocytes Pct Auto0.30.0-0.5 %Neutrophils Absolute Auto4.91.4-6.5 10 3/uLLymphocytes Absolute Auto1.41.2-3.8 10 3/uLMonocytes Absolute Auto0.40.3-0.8 10 3/uLEosinophils Absolute Auto0.10.0-0.7 10 3/uLBasophils Absolute Auto0.10.0- 0.1 10 3/uLImmature Granulocytes Abs Auto0.020.00-0.03 10 3/uLPerforming Lab:see noteML - [facility] [place] LBVITAMIN D 25 [place] Reviewed date:12/14/2024 06:30:53 PM Interpretation: Performing Lab: Notes/Report: [facility] [place] ,Vitamin D16.4 <20 ng/mL Vit D deficient 20-<30 ng/mL Vit D insufficient 30-100 ng/mL Vit D sufficient >100 ng/mL Potential Toxicity Performing Lab:see noteML - [facility] LBPROF CHEM 8 (BAS METB) Reviewed date:12/14/2024 06:30:53 PM Interpretation: Performing Lab: Notes/Report: [facility] [place] ,Pvlrph215086-180 mmol/LPotassium3.73.5-5.1 mmol/VXjghgblc44120-498 mmol/LCarbon Dqqzvdd98.821.0-32.0 mmol/LAnion Gap11.4Fsygfmy1716-335 mg/dLBlood Urea Nitrogen 13.07.0-18.0 mg/dLCreatinine1.190.55-1.02 mg/dLEstimated GFR ( Perri>60 >=60 mL/min/1.73m 2Estimated GFR (Non- Ame52>=60 mL/min/1.73m 2BUN Creatinine Ratio10.0Hjofjgr0.08.5-10.1 mg/dLPerforming Lab:see noteML - [facility] [place] LBECG 12 lead Reviewed date:03/28/2025 08:09:55 PM Interpretation: Performing Lab: Notes/Report: Source Facility: [facility] [place]-[address] [place] [address] [place] [address] Electrocardiograph Report Signed Patient: VERONICA ROSS MR#: [id number] : 1990 Acct:[id number] Age/Sex: 34 / F ADM Date: 03/28/25 Loc: ER Attending Dr: Ordering Physician: Nathaniel Finn Date of Service: 03/28/25 Procedure(s): ECG 12 lead Accession Number(s): [id number] cc: [facility] [place] Test Date: 2025-03-28 Pat Name: VERONICA ROSS Department: Room: - 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 Measurements Intervals Dunlap Rate: 68 P: 33 NE: 128 QRS: 40 QRSD: 94 T: 20 QT: 384 QTc: 401 Interpretive Statements 1100 Sinus rhythm 1102 Sinus arrhythmia 4068 Nonspecific Twave abnormality 9130 borderline ECG Compared to ECG 06/13/2023 11:17:27 No significant changes Electronically Signed On 03-28-2025 18:53:27 EDT by ELIZABETH BECK M.D. Dictated By: ELIZABETH BECK Signed By: 03/28/25 8404 DD/ 1128 TD/TT: Insole Taper:CBC no Diff (Hemogram) Reviewed date:03/28/2025 08:09:55 PM Interpretation: Performing Lab: Notes/Report: [facility] [place] ,White Blood Count9.74.0-11.0 10 3/uLRed Blood Count4.474.20-5.40 10 6/uL Wjatohcohu46.812.0-16.0 g/vGCgbqskhzzi59.136.0-48.0 %Mean Corpuscular Ueybyb68.2 81.0-99.0 fLMean Corpuscular Ecnnsyvasx44.626.7-34.0 pgMean Corpuscular HGB Conc 33.629.9-35.2 g/dLRed Cell Distribution Width14.911.0-15.0 %Platelet Cowlc985 150-450 10 3/uLMean Platelet Volume9.29.5-13.5 fLPerforming Lab:see noteML - [facility] [place] LBUA RANDOM W or MICROSCOPIC Reviewed date:03/28/2025 08:09:55 PM Interpretation: Performing Lab: Notes/Report: [facility] [place] ,Color UrineLT. YELLOWYELLOWClarity UrineCLEARCLEARSpecific [place] Urine1.015 1.005-1.025pH Urine6.05.0-9.0Protein UrineNEGATIVENEG/TRACE mg/dLGlucose Urine UANEGATIVENEGATIVE mg/dLBilirubin UrineNEGATIVENEGATIVEKetones UrineNEGATIVE NEGATIVE mg/dLBlood UrineNEGATIVENEGATIVENitrite UrineNEGATIVENEGATIVE Urobilinogen Urine0.20.2-1.0 EU/dLLeukocyte Esterase UrineTRACENEGATIVEWBC Urine 0-2NONE SEEN #/HPFRBC UrineNONE SEEN0-2 #/HPFBacteria UrineTRACENONE SEEN #/HPF Mucus UrineTRACENONE SEENSquamous Epithelial Cell UrineFEWNONE/RARE #/LPF Crystals Seen?None SeenNone Seen #/HPFCast Seen?NONE SEENNONE SEEN #/LPFUrine Culture IndicatedNOPerforming Lab:see noteML - [facility] LBPROF CHEM 8 (BAS METB) Reviewed date:03/28/2025 08:09:55 PM Interpretation: Performing Lab: Notes/Report: [facility] [place] ,Mftqvd024697-566 mmol/LPotassium4.03.5-5.1 mmol/YPlzeakhg83826-924 mmol/LCarbon Jzhzexj84.721.0-32.0 mmol/LAnion Gap10.4Hswhihk86322-401 mg/dLBlood Urea Bbeqdali10.07.0-18.0 mg/dLCreatinine1.100.55-1.02 mg/dLEstimated GFR ( Perri>60>=60 mL/min/1.73m 2Estimated GFR (Non- Ame57>=60 mL/min/1.73m 2 BUN Creatinine Ratio12.7Hcpjizi1.08.5-10.1 mg/dLPerforming Lab:see noteML - [facility] LBMAGNESIUM Reviewed date:03/28/2025 08:09:55 PM Interpretation: Performing Lab: Notes/Report: [facility] [place] ,Magnesium1.71.8-2.4 mg/dLPerforming Lab:see note - [facility] LB THYROGLOBULIN Reviewed date:02/08/2025 06:42:14 PM Interpretation: Performing Lab: Notes/Report: [facility] ,Thyroglobulin (TG-ASHOK)10. ng/mL This test was developed and its [...] quantitation limit is 2.0 ng/mL. Performed at: [employer] [address] [place] [id number] Chore Tender: Osmar Watkins MD, Phone: [phone] Performing Lab:see noteLC - [facility] LB Reason For Referral Reason Needs consult DAYANARA p lease! Pathology suspicious of malignancy. Diagnosis 1 Right thyroid nodule (E04.1) Referral Organization [facility] Referring Provider First Name Ramón Referring Provider Last Name Edwardo Referring Provider Speciality [facility] rachel Referred Provider Emily Urena Referred Provider Specialty Otolaryngolo gy Referral Priority Routine Reason Dry needling Diagnosis 1 Paresthesia (R20.2) Referral Organization [facility] Referring Provider First Name Ramón Referring Provider Last Name Edwardo Referring Provider Speciality [facility] rachel Referred Provider [facility], Physical Therap y Referred Provider Specialty Physical The rapist Referral Priority Routine Medications Medication SIG (Take, Route, Frequency, Duration) Notes Start Date End Date Status Cefdinir 300 MG 2 capsule Orally once a day; Dur ation: 10 days 5ActiveCarafate 1 GM1 tablet on an empty stomach Orally before each meal; Duration: 30 09/19/2023ctiveAdipex-P 37.5 MG1 tablet before breakfast Orally Once a day01/19/2025tiveDoxycycline Monohydrate 100 MG1 capsule Orally bid; Duration: 10 5ActiveTriamterene-HCTZ 75-50 MG1 tablet in the morning Orally Once a day; Duration: 90 daysActiveLasix 20 MG1 tablet Orally Once a day; Duration: 3 04/15/2024ctivePotassium Chloride ER 20 MEQTake 1 tablet by mouth twice daily with food; Duration: 30ActiveAir Cast Size to fit Wear 18/03. remove for showers Dx: chip fracture of ankle 05/22/2024ctivePantoprazole Sodium 40 MGTAKE 1 TABLET BY MOUTH TWICE A DAY FOR 90 DAYS; Duration: 90ActiveAcebutolol HCl 200 MGTAKE 1 CAPSULE BY MOUTH TWICE A DAY; Duration: 30ActiveOxaprozin 600 mgTAKE 1 TABLET DAILYActiveLevothyroxine Sodium 100 MCG1 tablet in the morning on an empty stomach Orally Once a day; Duration: 14 5ActivehydroCHLOROthiazide 25 MG1 tablet in the morning Orally Once a day; Duration: 30 5ActiveVitamin D 50 MCG (2000 UT)1 tablet Orally Once a day; Duration: 90 day(s)5ActiveIron (Ferrous Sulfate) 325 (65 Fe) MG1 tablet Orally bid; Duration: 30 days10/26/2024 ActiveImitrex 100 MG1 tablet at least 2 hours between doses as needed Orally Twice a day; Duration: 30 days10/04/2023ctiveDULoxetine HCl 60 MG1 capsule Orally Once a day; Duration: 30 days03/06/2024ctiveAmoxicillin-Pot Clavulanate 875-125 MG1 tablet Orally every 12 hrs; Duration: 10 07/21/2025tive tiZANidine HCl 4 MGTAKE 2 TABLETS BY MOUTH EVERY DAY AT BEDTIME; Duration: 30 ActivepredniSONE 20 MG2 tablets Orally Once a day; Duration: 5 07/21/2025 ActivetraZODone HCl 50 MG1 tablet at bedtime as needed Orally Once a day; Duration: 30 days04/28/2025tivelamoTRIgine 200 MG1 1/2 tablet Orally Once a day; Duration: 90 days02/08/2025tive Immunizations Vaccine Route Administration Date Status Comme nts Flu, Flucelvax (8189-6562) (21718) 6 mos and older, multi-dose vial IM Intramuscular 06/19/2023 Administered Tdap (Adacel)IM Yodfvqfmsxrnb68/27/2025dministered Social History Tobacco Use: Social History Observation Description Date Details (start date - stop date) Never Smoker NA - NA Tobacco Use/Smoking Question Answer Notes Patient is a nonsmoker Alcohol Screen (Audit-C) Question Answer Notes Did you have a drink containing alcohol in the p ast year? No Zunjpf1DgzlhwhcgqtdqaKopyheniCFFQF-K (Standard) Question Answer Notes Did you have a drink containing alcohol in the p ast year? No Geizjc9QoepkyjgxwhvbuVeapihpe Problems Problem Type SNOMED Code ICD Code Onset Dates Problem Status W/U Status Risk Notes Problem Essential hypertension (35778817 ) Essential (primary) hypertension (I10) ActiveconfirmedProblemHypomagnesemia (011156263)Hypomagnesemia (E83.42)Active confirmedProblemPrimary insomnia (7853083)Primary insomnia (F51.01)Active confirmedProblemOrthostatic hypotension (66015870)Orthostatic hypotension (I95.1)ActiveconfirmedProblemAtrophic gastritis (34491754)Unspecified chronic gastritis without bleeding (K29.50)ActiveconfirmedProblemCervical radiculopathy (33485016)Radiculopathy, cervical region (M54.12)ActiveconfirmedProblemBilateral impingement syndrome of shoulders (09479571057278301)Impingement syndrome of unspecified shoulder (M75.40)ActiveconfirmedProblemParesthesia (finding) (13852966)Paresthesia of skin (R20.2)ActiveconfirmedProblemGastroesophageal reflux disease (645288326)GERD (gastroesophageal reflux disease) (K21.9)Active confirmedProblemAnemia (899932394)Anemia (D64.9)ActiveconfirmedProblemEssential hypertension (21145617)Benign essential HTN (I10)ActiveconfirmedProblemAcid reflux (725505409)Acid reflux (K21.9)ActiveconfirmedProblemMigraine (29203126) Migraine (G43.909)ActiveconfirmedProblemWell adult (935625336)Well adult (Z00.00)ActiveconfirmedProblemParesthesia (69997289)Paresthesia (R20.2)Active confirmedProblemCellulitis (704323262)Cellulitis (L03.90)ActiveconfirmedProblem Mass of neck (693534557)Neck mass (R22.1)ActiveconfirmedProblemArthralgia of the ankle and/or foot (582222112)Ankle pain, right (M25.571)ActiveconfirmedProblem Goiter (7411808)Enlarged thyroid (E04.9)ActiveconfirmedProblemMalignant tumor of thyroid gland (416060394)Papillary carcinoma of thyroid (C73)Activeconfirmed ProblemNon-toxic single thyroid nodule (424836524)Right thyroid nodule (E04.1) ActiveconfirmedProblemEssential hypertension (74436069)BP (high blood pressure) (I10)ActiveconfirmedProblemPure hypercholesterolemia (368653599)Pure hypercholesterolemia, unspecified (E78.00)ActiveconfirmedProblemHeadache (49401808)Headache, unspecified (R51.9)Activeconfirmed Vital Signs Blood pressure diastolic 84 mm Hg 01/19/2025 Uzdscb78 in01/19/2025lood pressure zoanvabw838 mm Hg01/19/20252941Pxgfcy455 lbs 01/19/2025BMI47.2 kg/m201/19/2025 Encounters Encounter Location Date Provider Diagnosis [facility] [address] [place] [address] 12/28/2024 Ramón cande [facility] [facility] [place] [address] 01/18/2025Doug [facility] [facility] [place] [address]/Doug [facility] [facility] [place] [address]/02/2025Doug [facility] [facility] [address]/04/2025Doug [facility] [facility] [place] [address]/10/2024Doug HoyEnlarged thyroid E04.9 and Hypokalemia E87.6BMc[facility] [facility] [place] [address]/Doug [facility] [address] [place] [address]/Doug HoyWell adult Z00.00 ; Essential (primary) hypertension I10 ; Pure hypercholesterolemia, unspecified E7 8.00 ; Hypomagnesemia E83.42 and Papillary carcinoma of thyroid R58SckhjjmMcKee Medical Center[address] [facility] [place] [address]/09/2024 Ramón HoyEnlarged thyroid E04.9 and Dehydration E86.0[facility] [facility] [place] [address]/05/2025Doug [facility] [facility] [place] [address]/02/2025 Ramón [facility] [place] [address]/Doug [facility] [facility] [address]/oug [facility] [facility] [address]/oug HoyRight thyroid nodule E04.1BMcK[facility] [facility] [address] 2024Doug [facility] [facility] [place] [address]/Doug [facility] [place] [address]/Doug HoyAnemia D64.9BMcK[facility] Center[address] [facility] [address]/08/2024Doug Hoy Paresthesia R20.2BMcKee [facility] [address]/[facility] [place] [address]/10/2024[facility] [place] [place] [address]/[facility] [place] [address]/[facility] [place] [place] [address]/ [facility] [place] [place] [address]/[facility] [place] [place] [address]/[facility] [place] [place] [address]/[facility] [place] [place] [address]/[facility].1[facility] [place] [address]/Doug HoyOrthostatic hypotension I95.1[facility] [place] [address]/ [facility] [place] [place] [address]/[facility] [place] [place] [address]/02/2025[facility] [place] [place] [address]/02/2025[facility] [place] [place] [address]/[facility] [place] [place] [address]/ [facility] [place] [address]/[facility] [place] [place] [address]/[facility] [place] [place] [address]/[facility] [place] [place] [address]/12/2024[facility] [place] [place] [address]/05/2025 [facility] [place] [address]/10/2024[facility] [place] [place] [address]/[facility] [place] [facility] [place] [address]/02/2025Doug [place] [address] [facility] [place] [address]/oug [place] [address] [facility] [place] [address]/05/2025 Ramón [place] [address] [facility] [place] [address]/Doug HoyCellulitis L03.90 ; Laceration of hand S61.419A and Encounter for immunization N38UwbthyuJerome [place] [address] [facility] [place] [address]/Doug HoyAcute bronchitis, unspecified organism J20.9BMark [place] [address] [facility] [place] [address]/Doug HoyOrthostatic hypotension I95.1 and Essential (primary) hypertension I10 Assessments Encounter Date Diagnosis (ICD Code) Assessment Notes Treatment Notes Treatment Clinical Notes Section Notes 09/09/2024 Acute bronchitis, unspecified or ganism (ICD-10 - J20.9) Rest and drink more liquids, especially water. You may use a humidifier or vaporizer to help keep the drainage moist. Knug-jmr-tjclzoz Nasal Saline may help the stuffy and runny nose. Use Ibuprofen and or Tylenol as needed for fever, chills, body aches or pain. Children 5 years old should not be given xduw-nfy-dfnhknd cough and cold medications such as guaifenesin and dextromethorphan. If you're over age 5, you may try gfdh-mrm-jrrniyf cold medications such as guaifenesin and dextromethorphan, or multi-symptom cold reliever such as Dayquil to help reduce the symptoms. Antibiotics have been pre scribed. You should take these until completed and follow the directions. Antibiotics can sometimescause upset stomach, and in rare cases, serious allergic reactions or serious gastrointestinal problems. If you start having severe abdominal pain, severe vomiting, or bloody diarrhea, you should be r eevaluated by your physician or urgent care immediately. Follow up with your Primary Care Provider or return to clinic if symptoms do not improve within 3-5 days. If you develop severe symptoms such as shortness of breath, repeated vomiting, coughing up blood, or chest pain you should go to the emergency room or call [id number] hypotension (ICD-10 - I95.1)12/07/2024Essential (primary) hypertension (ICD-10 - I10)01/19/2025ellulitis (ICD-10 - L03.90)insid linew of demarcation - says swelling better since on AB01/19/2025Laceration of hand (ICD-10 - S61.419A)08/24/2024ight thyroid nodule (ICD-10 - E04.1) 10/23/2024Well adult (ICD-10 - Z00.00)10/23/2024Essential (primary) hypertension (ICD-10 - I10)10/25/2024Enlarged thyroid (ICD-10 - E04.9)10/25/2024Dehydration (ICD-10 - E86.0)03/28/2025Enlarged thyroid (ICD-10 - E04.9)03/28/2025Hypokalemia (ICD-10 - E87.6)03/17/2025Orthostatic hypotension (ICD-10 - I95.1)03/20/2025 Orthostatic hypotension (ICD-10 - I95.1)07/26/2025Paresthesia (ICD-10 - R20.2) 08/10/2025nemia (ICD-10 - D64.9)10/23/2024Pure hypercholesterolemia, unspecified (ICD-10 - E78.00)01/19/2025Encounter for immunization (ICD-10 - Z23) 10/23/2024Hypomagnesemia (ICD-10 - E83.42)10/23/2024Papillary carcinoma of thyroid (ICD-10 - C73) Plan Of Treatment Pending Test Test Name Order Date CMP (COMPLETE METABOLIC PANEL) 3 HEMOGLOBIN A1C (GLYCO) 02/20/2023 IRON, TOTAL 02/20/2023 LIPID PANEL (CHOL/TRIG/HDL/LDL) 02/21/20 23 CBC WITH DIFF (EXP 06/2025) 02/20/2023 MRI Brain w/wo contrast * 06/19/2023 CARDIO Echocardiogram 04/15/2024 FECAL OCCULT BLOOD 10/23/2024 Insulin Level 02/20/2023 CMP - Comprehensive Metabolic Panel 10/2024 CMP - Comprehensive Metabolic Panel 09/27 PROF 14(COMP METB) 03/30/2024 PROF CHEM 8 (BAS METB) 10/25/[address] W CON 07/01/2023 MRI ANKLE RT WO CON 05/22/2024 MRI BRAIN WO W CON 06/13/2023 US KIDNEYS 02/27/2023 XR ANKLE RT MIN 3 VIEWS 05/21/2024 THYROID PANEL (T4/TSH/FREE T3) 3 THYROID PANEL (T4/TSH/FREE T3) 5 THYROID PANEL (T4/TSH/FREE T3) 5 THYROID PANEL (T4/TSH/FREE T3) 5 Vitamin D 10/23/2024 Insurance Providers Payer Name Payer Address Payer Phone Subscriber Number Group Number Insured Name Patient Relationship to Insured Coverage Start Date Coverage End Date [facility] [address] [place], [place] [id number] Keaton Ross Spouse - patient is the spouse of the insured 3 Medications Administered Medication Instructions Date of Administration Dosage Notes Kenalog-40 mgKenalog-400 ev463Evqpsry-0573/26/202480 mg80 Ketorolac Bgzczwquenqo90/12/202460 ok48Rusbyhwxy Xxzmsdvnklog24/26/202460 mg60 Orphenadrine Pobfqlk08 mg60 Medical (General) History Medical History History ICD Code Nondisplaced fracture of distal phalanx of right thumb GallstonesHeel SpurPalpitationsPilonidal CystPlatar FascitisSurgical History Surgery Date(Month/Year) Dr. Zara REAVES 08/2022 Right Foot surgery x2 Tailbone surgery x 6TonsillsRight Hemithyroidectomy- Dr Aguilar Hospitalization History Reason Date(Month/Year) Migraine 05/2023
--- OUTSIDE RECORDS SUMMARY | 2025-08-14 16:28 | XMS_ITS | Patient Health Record ---
Author Organization [facility] Address [address] [place] [address] Care Team Providers Care Van Loader Name Role Phone Felipe Brooke Primary Care Provider Paulino Giordano Unavailable [phone] Yvette Bunn Unavailable Reason For Referral Reason APPROVED .......PLEStacie BANSAL OBTAIN AUTHORIZATION FOR MRI RIGHT KNEE Diagnosis 1 Acute pain of right knee (M25.561) Referral Organization [facility] Referring Provider First Name Paulino Referring Provider Last Name Audra Referring Provider Speciality Orthopedic Surgery Referred Organization [facility] romeo Referred Address [place], [place], Procedure 1 MRI Joint Lower Ext w/o Dye (22851) General Notes Elle Olsen 025 01:15:16 PM >APPROVED [facility] Authorization #[id number] Tracking #[id number], VALID 12/08/2024-01/22/2025 COPY IN CHART MA NOTIFIED REF FXAED TO Domingo OSMAN Kimberly 12/08/2024 09:24:31 AM >Faxed to [place] Referral Priority Routine Medications Medication SIG (Take, Route, Frequency, Duration) Notes Start Date End Date Status acebutolol ActiveDULoxetineActive Social History Tobacco Use: Social History Observation Description Date Details (start date - stop date) Never Smoker NA - NA AUDIT-C (Standard) Question Answer Notes Did you have a drink containing alcohol in the p ast year? Yes How often did you have six or more drinks on one occasion in the past year?Never (0 point)How many drinks did you have on a typical day when you were drinking in the past year?1 or 2 drinks (0 point)How often did you have a drink containing alcohol in the past year?Monthly or less (1 point)Uzhpxa5UsagcwvfexjqfqDlyxakem Tobacco Control (Standard) Question Answer Notes Tobacco use: Nonsmoker Vital Signs Height 5'4 in 01/04/2025 Gpirqa634 lbs01/04/2025BMI45.48001/04/2025 Encounters Encounter Location Date Provider Diagnosis [facility] [place] [facility] [address] [place] [address] 12/07/2024 Yvette loveiteland Acute pain of right knee M25.561 [facility] [address] [facility] [place] [address] 01/04/2025 Paulino Zhu Sprain of medial collateral ligament of right knee, initial encounter S83.411A Assessments Encounter Date Diagnosis (ICD Code) Assessment Notes Treatment Notes Treatment Clinical Notes Section Notes 12/07/2024 Acute pain of right knee (ICD-10 - M25.561) Right knee pain and effusion-possible meniscus tear01/04/2025Sprain of medial collateral ligament of right knee, initial encounter (ICD-10 - S83.411A) 12/07/2024OtherFor the patient's right knee pain after fall I am going to order an MRI to evaluate for a meniscus tear or occult fracture. She we will use crutches and limit her weightbearing to the right lower extremity. We will see her back once imaging is obtained to review and offer further recommendations. Right knee pain and effusion-possible meniscus tear01/04/2025Other For right knee MCL strain I recommended symptomatic treatment with crutches. She will follow-up in 4 weeks to reassess her progress and consider therapy at that time. Import medication Plan Of Treatment Pending Test Test Name Order Date MRI : Knee W/O Contrast Right - 41966 Insurance Providers Payer Name Payer Address Payer Phone Subscriber Number Group Number Insured Name Patient Relationship to Insured Coverage Start Date Coverage End Date Medical [facility] [address] [place] [address] [id number] [place] , ALEX Spouse - patient is the spouse of the insured 5 Medical (General) History Medical History History ICD Code Depression Tachycardia:Mental Illness:GI Problems:Stomach ulcersstoSurgical History Surgery Date(Month/Year) Tonsillectomy Hand oinnnfi95/2023Foot surgery
--- OUTSIDE RECORDS SUMMARY | 2025-08-14 16:29 | XMS_ITS | Clinical Summary ---
Author Organization [facility] Address [address] [place] [address] Care Team Providers Care Bale Sewer Name Role Phone Felipe Brooke MD Primary Care Provider [phone] Willa Hanks DO Unavailable [phone] Jeffmeghan Deis Gilda DO Unavailable Allergies Active AllergyReactionsCriticalityNoted TfoqAiflozttLewwwnedke37/20/2025 Other Reaction(s): Unknown Reaction renal failure Luglxgbo67/04/2025 Other Reaction(s): Chest pain Zbsoza6608/29/2024 Other Reaction(s): INFECTION Medications MedicationSigDispense QuantityRefillsLast FilledStart DateEnd DateStatus sucralfate (Carafate) 1 g tablet 5Active pantoprazole (ProtoNix) 40 MG EC tablet Take 40 mg by mouth in the morning and 40 mg before bedtime.08/06/2024ctive acebutolol (Sectral) 200 MG capsule Take 200 mg by mouth in the morning and 200 mg before bedtime.08/20/2024ctive DULoxetine (Cymbalta) [address] capsule 08/06/2024ctive triamterene-hydrochlorothiazide (Maxzide) 75-50 MG tablet 07/28/2024ctive potassium chloride CR (K-Tab) 20 MEQ ER tablet Take 20 mEq by mouth Take with food.08/20/2024ctive tiZANidine (Zanaflex) 4 MG tablet 08/06/2024ctive oxaprozin (Daypro) 600 MG tablet Take 600 mg by mouth Daily08/20/2024ctive lamoTRIgine (LaMICtal) 200 MG tablet 08/03/2024ctive levothyroxine (Synthroid) 50 MCG tablet Indications:Status post partial thyroidectomyTake 1 tablet (50 mcg) by mouth in the morning. Take before meals. 30 tablet tive cholecalciferol (Vitamin D-3) 50 MCG (1999 UT) tablet TAKE 1 TABLET BY MOUTH EVERY DAY FOR 90 DAYS10/26/2024tive ferrous sulfate 325 (65 Fe) MG tablet 12/23/2024tive hydroCHLOROthiazide (HYDRODiuril) 25 MG tablet Take 25 mg by mouth in the morning.12/07/2024tive levothyroxine (Synthroid) 100 MCG tablet Indications:Status post partial thyroidectomyTake 1 tablet (100 mcg) by mouth in the morning. Take before meals. 30 tablet tive Active Problems No known active problems Resolved Problems ProblemNoted DateDiagnosed DateResolved DateFracture of phalanx of finger Overview (09/20/2024): Problem List clean-up per request of Phys. [facility] Cmte Laceration of nail bed of jypyjv00 Overview (09/20/2024): Problem List clean-up per request of Phys. [facility] C[facility] Postoperative pain of nfwvzafji07 Overview (09/20/2024): Problem List clean-up per request of Phys. [facility] Cmte BMI 40.0-44.9, adultervical ffytbbdajtkmr34/04/2025 08/29/2024History of pilonidal cystHTN (hypertension) 9809Jvfxvtwvkvbjqstvmb81/04/202501/04/4671Pshbgmph38/04/2025 08/29/20244681Jksxkjbjq51/04/83151508/29/2024Morbid uvmnnuf09 Orthostatic sgeiugxzvcz39 Encounters DateTypeDepartmentCare QgtvJcyxvkyaidl50/15/2025Orders Only [facility] [address] [place] [address] Mireille Mattson MA Thyroid nodule (Primary Dx); S/P partial thyroidectomyfrom Last 3 Months Immunizations ImmunizationAdministration DatesNext DueInfluenza, Recombinant, injectable, preservative free05/27/2024Influenza, Txnhunkjljs04/10/2021Influenza, injectable, quadrivalent, preservative free04/28/2020 Social History Tobacco UseTypesPacks/DayYears UsedDateSmoking Tobacco: NeverSmokeless Tobacco: Never Tobacco Cessation:Counseling Given: Not Answered Alcohol UseStandard Drinks/WeekCommentsNot Currently0 (1 standard drink = 0.6 oz pure alcohol)CommentsUnknownSex and Gender InformationValueDate Recorded Sex Assigned at VurybPxwpif99/03/2025 1:41 PM ESTLegal TyqDufdpl07/15/2023 10:14 PM EDTGender IpcgwridJbwbfe01/03/2025 1:41 PM ESTSexual OrientationNot on file Last Filed Vital Signs Vital SignReadingTime TakenCommentsBlood Pressure--Pulse--Temperature-- Respiratory Rate--Oxygen Saturation--Inhaled Oxygen Concentration--Trwoqq028 kg (274 lb)02/01/2025 1:41 PM KMUIemvxn557 cm (5' 3 )02/01/2025 1:41 PM EDTBody Mass Index48.54002/01/2025 1:41 PM EDT Plan of Treatment DateTypeDepartmentCare Team (Latest Contact Info)Pdeeadvxyyn02/05/2026 2:00 PM ESTOffice Visit [facility] [place] [facility] [address] [place] [address] Edis Morales, DO [address] [place] [address] Insurance Care Teams Team MemberRelationshipSpecialtyStart DateEnd Felipe Brooke MD [address] [facility] [place] [address] PCP - GeneralFamily Medicine11/18/23 Willa Hanks DO [address] [place] [address] Referring PhysicianNeurology11/18/23 Edis Morales DO [address] [place] [address] Otolaryngology1
--- OUTSIDE RECORDS SUMMARY | 2025-08-14 16:29 | XMS_ITS | Clinical Summary ---
Author Organization [facility] tem Address [id number] [address] [place] [address] Care Team Providers Care Pin Feather Machine Operator Name Role Phone Unavailable Primary Care Provider Unavailabl e Social History Tobacco UseTypesPacks/DayYears UsedDateSmoking Tobacco: Never AssessedChildcare AnswerDate KspkwljaYbudlzgilFpsqdxo40/12/2019EmploymentAnswerDate Recorded SobjfipontQvwzcxu84/12/2019CommentsUnknownSex and Gender Information ValueDate RecordedSex Assigned at BirthNot on fileLegal TjaLbolhd35/03/2015 2:22 PM EDTGender IdentityNot on fileSexual OrientationNot on file Plan of Treatment Not on file Medical Devices Not on file
--- OUTSIDE RECORDS SUMMARY | 2025-08-14 16:29 | XMS_ITS | Encounter Summary ---
Author Organization [facility] Address [address] [place] [address] Care Team Providers Care Modular Home Crew Member Name Role Phone Felipe Brooke MD Primary Care Provider [phone] Willa Hanks DO Unavailable [phone] Andrew Edis Gilda DO Unavailable Encounter Details DateTypeDepartmentCare Team (Latest Contact Info)Bwwhfgeltyk91/15/2025Orders Only [facility] [address] [place] [address] Mireille Mattson MA Thyroid nodule (Primary Dx); S/P partial thyroidectomy Social History Tobacco UseTypesPacks/DayYears UsedDateSmoking Tobacco: NeverSmokeless Tobacco: NeverAlcohol UseStandard Drinks/WeekCommentsNot Currently0 (1 standard drink = 0.6 oz pure alcohol)CommentsUnknownSex and Gender InformationValueDate RecordedSex Assigned at HwiugFfkgju50/03/2025 1:41 PM ESTLegal SexFemale 11/07/2022 10:14 PM EDTGender HgbcpyngCnqtnf65/03/2025 1:41 PM ESTSexual OrientationNot on filedocumented as of this encounter Plan of Treatment DateTypeDepartmentCare Team (Latest Contact Info)Mwhzceagvzb76/05/2026 2:00 PM ESTOffice Visit [facility] [address] [place] [address] Edis Morales DO [address] [place] [address] NameTypePriorityAssociated DiagnosesOrder ScheduleThyroglobulinLabRoutine S/P partial thyroidectomy Thyroid nodule Expected: 08/09/2025 (Approximate), Expires: 08/09/2026documented as of this encounter Visit Diagnoses Diagnosis Thyroid nodule- Primary Nontoxic uninodular goiter S/P partial thyroidectomy Other postprocedural status documented in this encounter Care Teams Team MemberRelationshipSpecialtyStart DateEnd Date Felipe Brooke MD [address] [facility] [place] [address] PCP - GeneralFamily Medicine11/18/23 Willa Hanks DO [address] [place] [address] Referring PhysicianNeurology11/18/23 Edis Morales DO [address] [place] [address] Otolaryngology1/03/19documented as of this encounter
--- NOTE | 2025-08-14 16:30 | ED.GENADUL1 ---
HPI HPI - General Adult General Chief complaint: Dizziness Stated complaint: dizzy Time Seen by Provider: 08/14/25 16:10 Source: patient Mode of arrival: Wheelchair History of Present Illness HPI narrative: Patient is a 34-year-old female who presents to the ER with vague complaints of feeling fatigued and dizzy with facial flushing. Patient states she noted symptoms upon waking this morning. She denies any headache or visual disturbance. She denies any visual loss. She reports that her son recently had a GI virus and another family member was ill earlier in the week. She denies any measurable fever. She did take a Motrin earlier this morning without relief. She denies any pain such as chest pain shortness of breath or abdominal pain. Patient feels like she is drunk. Denies alcohol use. States there is no room spinning but somewhat like walking on a boat. She states she has felt this way before when she has had a low potassium and low magnesium. She is prescribed a supplement but is unsure of the reason why. She does have a pertinent history of hypertension. She has a younger child with her today at the bedside and appears in no distress. Onset (ago): hour(s) (8) Relieving factors: Reports none Exacerbating factors: Reports none Associated symptoms: Reports malaise; Denies confusion, chest pain, cough, diaphoresis, fever/chills, headaches, loss of appetite, nausea/vomiting or rash Treatments prior to arrival: Reports none Related Data Home Medications ?Medication ?Instructions ?Recorded ?Confirmed acebutolol 200 mg capsule 200 mg PO BID 06/09/23 08/14/25 pantoprazole 40 mg tablet,delayed 40 mg PO Q12H 06/09/23 08/14/25 release tizanidine 4 mg tablet 8 mg PO BEDTIME 06/09/23 08/14/25 triamterene 75 1 tab PO DAILY 06/09/23 08/14/25 mg-hydrochlorothiazide 50 mg tablet duloxetine 60 mg capsule,delayed 60 mg PO DAILY 07/21/24 08/14/25 release lamotrigine 100 mg tablet 300 mg PO DAILY 07/21/24 08/14/25 potassium chloride 20 mEq 40 meq PO DAILY 07/21/24 08/14/25 tablet,extended release(part/cryst) (Klor-Con M) sucralfate 1 gram tablet 1 g PO .before meals 07/21/24 08/14/25 Previous Rx's ?Medication ?Instructions ?Recorded dicyclomine 10 mg capsule 10 mg PO QID PRN abdominal pain 03/26/24 #12 caps cephalexin 500 mg capsule 500 mg PO BID 5 days #10 caps 08/14/25 Allergies Allergy/AdvReac Type Severity Reaction Status Date / Time irbesartan Allergy Severe hypotension Verified 08/14/25 16:09 and renal insufficiency silver Allergy Severe Hives Verified 08/14/25 16:09 Opioid HPI Opioid Management Most Recent Opioid Data: Last Pain Scale 8 12/04/24, 21:11 Ur Phencyclidine Scrn, (NEGATIVE) Negative 06/09/23, 08:00 Review of Systems ROS Constitutional Reports: fatigue; Denies: fever, chills or change in weight Eyes Denies: change in vision or blurry vision Ears, nose, mouth, and throat Reports: other (facial flushing); Denies: throat pain, neck pain or swelling of lips/tongue Cardiovascular Denies: chest pain Respiratory Denies: shortness of breath or cough Gastrointestinal Denies: abdominal pain, nausea, vomiting, coffee grounds in vomit or difficulty swallowing Genitourinary Denies: painful urination Musculoskeletal Denies: back pain, neck pain or extremity pain Integumentary/Breast Denies: rash, itching or redness Neurological Reports: dizziness; Denies: headache, numbness in extremities, weakness in extremities, vertigo, confusion, behavioral changes, slurred speech or difficulty communicating thoughts Psychiatric Denies: anxiety or mood swings Endocrine Denies: excessive urination Hematologic/Lymphatic Denies: easy bruising PFSH PFSH Medical History (Updated 08/14/25 @ 17:38 by DENZEL Gonzalez) Thyroid cancer ?C73 - Malignant neoplasm of thyroid gland (ICD-10) Anxiety and depression ?F41.9 - Anxiety disorder, unspecified (ICD-10) ?F32.A - Depression, unspecified (ICD-10) Acute intractable headache ?R51.9 - Headache, unspecified (ICD-10) Surgical History (Updated 08/03/24 @ 11:12 by Samantha Porter) H/O fine needle aspiration with imaging guidance ?Z98.890 - Other specified postprocedural states (ICD-10) H/O thumb surgery ?Z98.890 - Other specified postprocedural states (ICD-10) History of excision of pilonidal cyst ?Z98.890 - Other specified postprocedural states (ICD-10) H/O fasciotomy ?Z98.890 - Other specified postprocedural states (ICD-10) [place] teeth removed ?K08.409 - Partial loss of teeth, unspecified cause, unspecified class (ICD-10) History of tonsillectomy and adenoidectomy ?Z90.89 - Acquired absence of other organs (ICD-10) Social History Smoking status: Never smoker Little interest or pleasure in doing things: not at all Feeling down, depressed, or hopeless: not at all Exam Narrative Exam Narrative: Vital signs and nurse's notes reviewed. The patient is not hypoxic. General: The patient appears well and in no apparent distress. Patient is resting comfortably on cart. Skin: Warm, dry, no pallor noted. The patient has no evidence of rash, petechiae, or pupura noted. Head: Normocephalic, atraumatic, no temporal arterial tenderness. Neck: Supple, trachea mid-line, no tenderness, no lymphadenopathy. No meningeal signs. No nuchal rigidity. Eye: Pupils are equal, round and reactive to light, EOMI Ears, Nose, Mouth, and Throat: Oral mucosa is moist, TMs are clear bilaterally, no hemotympanum noted. Cardiovascular: Regular rate and rhythm Respiratory: Patient is in no distress, no accessory muscle use, lungs are clear to auscultation, no wheezing, rales or rhonchi Back: Non-tender, no CVA tenderness Musculoskeletal: normal ROM, no tenderness, no swelling, normal strength 5/5. Normal pulses to radial 2+ bilaterally and 2+ at DP and PT bilaterally and symmetrically. GI: Normal bowel sounds, no tenderness to palpation, no masses appreciated. No rebound, guarding, or rigidity noted. Neurological: Alert and oriented x4, normal equal forgeman helper strength, normal finger to nose, no pronator drift. The patient is not ataxic. The patient has normal speech. The patient has normal coordination. Normal motor and sensory observed. Psychiatric: Cooperative Constitutional Vital Signs, click to edit/add: Last Vital Signs Temp 99.4 F 08/14/25 16:11 Pulse 95 H 08/14/25 17:20 Resp 12 08/14/25 17:20 BP 132/80 08/14/25 17:01 Pulse Ox 94 L 08/14/25 16:11 O2 Del Method Room Air 08/14/25 16:11 Course Vital Signs Vital signs: Vital Signs Temperature 99.4 F 08/14/25 16:11 Pulse Rate 94 H 08/14/25 16:11 Respiratory Rate 16 08/14/25 16:11 Blood Pressure 161/93 H 08/14/25 16:11 Pulse Oximetry 94 L 08/14/25 16:11 Oxygen Delivery Method Room Air 08/14/25 16:11 Temperature 99.4 F 08/14/25 16:11 Pulse Rate 95 H 08/14/25 17:20 Respiratory Rate 12 08/14/25 17:20 Blood Pressure 132/80 08/14/25 17:01 Pulse Oximetry 94 L 08/14/25 16:11 Oxygen Delivery Method Room Air 08/14/25 16:11 Medical Decision Making MDM Narrative Medical decision making narrative: Patient presents with vague complaints of feeling dizzy and describes it as being lightheaded or riding on a boat. She denies any headache or visual disturbance. She also has facial flushing with symptoms. She reports taking one of her potassium pills and was drinking fluid at home without resolution. She denies any chest pain or shortness of breath. Her main concern is a possible electrolyte abnormality but states that there is been no vomiting or diarrhea recently. Patient appears in no distress with her son at bedside. There has been people in her home with viral illnesses this week, with her son at bedside stating he feels much better than he did a few days ago. Patient reevaluated, appears in no distress. We discussed her laboratory studies. We specifically reviewed her concerns regarding potassium and magnesium. The patient is not currently vomiting or having diarrhea. She is taking 40 mg of potassium daily. We discussed a potassium rich diet and magnesium supplementation. Recommend discussing medication changes with her family doctor but I would not adjust anything at this time based on 1 set of labs and symptoms starting this morning. She does have urine concerning for UTI. She does not eyes any recent antibiotic use and is agreeable to a Keflex prescription. We discussed her symptoms of feeling lightheaded, fatigued and dizzy but without room spinning or symptoms of vertigo. She is without headache. She was exposed to her family who has been going through different viruses in her home and she may be in a preliminary stage for this as well. Currently with symptoms and laboratory findings and recommending a treatment of her UTI until culture results are obtained and to follow-up with her family doctor is performed. Patient was able to ambulate here and did not receive any sedating medications. I specifically asked the patient if she felt comfortable driving home with her child and the patient stated that she did not declined the need for transportation to be arranged. She will be given the first dose of her antibiotic here to allow her not to go to the pharmacy this evening as it is getting late in the day. The patient is to followup with primary care physician in next 2-3 days or to return to the emergency department should any of the signs or symptoms worsen or new symptoms develop. Patient had questions answered. The patient agrees with the following Diagnosis and Treatment plan and the patient will be discharged home. Lab Data Lab results reviewed: Yes I reviewed the patient's lab results Labs: Lab Results 08/14/25 08/14/25 Range/Units 16:34 16:35 WBC 7.6 (4.0-11.0) 10^3/uL RBC 4.95 (4.20-5.40) 10^6/uL Hgb 13.7 (12.0-16.0) g/dL Hct 41.8 (36.0-48.0) % MCV 84.4 (81.0-99.0) fL MCH 27.7 (26.7-34.0) pg MCHC 32.8 (29.9-35.2) g/dL RDW 13.3 (11.0-15.0) % Plt Count 207 (150-450) 10^3/uL MPV 9.4 L (9.5-13.5) fL Seg Neuts % (Manual) 86.0 H (43.0-75.0) Lymphocytes % (Manual) 9.0 L (20.5-60.0) % Monocytes % (Manual) 5.0 (1.7-12.0) % Eosinophils % (Manual) 0.0 L (0.9-7.0) % Basophils % (Manual) 0.0 L (0.2-2.0) % Neutrophils # (Manual) 6.53 H (1.4-6.5) 10^3/uL Lymphocytes # (Manual) 0.68 L (1.20-3.80) 10^3/uL Monocytes # (Manual) 0.38 (0.30-0.80) 10^3/uL Eosinophils # (Manual) 0.00 (0.00-0.70) 10^3/uL Basophils # (Manual) 0.00 (0.00-0.10) 10^3/uL Sodium 137 (136-145) mmol/L Potassium 3.4 L (3.5-5.1) mmol/L Chloride 97 L (98-107) mmol/L Carbon Dioxide 30.0 (21.0-32.0) mmol/L Anion Gap 13.4 BUN 15.0 (7.0-18.0) mg/dL Creatinine 1.26 H (0.55-1.02) mg/dL Est GFR ( Amer) 59 L (>=60 mL/min/1.73m^2) Est GFR (Non-Af Amer) 49 L (>=60 mL/min/1.73m^2) BUN/Creatinine Ratio 11.9 Glucose 96 (74-106) mg/dL Calcium 8.4 L (8.5-10.1) mg/dL Magnesium 1.5 L (1.8-2.4) mg/dL Total Bilirubin 0.9 (0.2-1.0) mg/dL AST 34 (15-37) U/L ALT 65 H (14-59) U/L Alkaline Phosphatase 75 (46-116) U/L Total Protein 7.5 (6.4-8.2) g/dL Albumin 4.0 (3.4-5.0) g/dL Globulin 3.5 g/dL Albumin/Globulin Ratio 1.1 TSH & Free T4 Interp 1.656 (0.358-3.740) uIU/mL Urine Color Lt. yellow (YELLOW) Urine Clarity Sl cloudy (CLEAR) Urine pH 5.5 (5.0-9.0) Ur Specific [place] 1.020 (1.005-1.025) Urine Protein Negative (NEG/TRACE) mg/dL Urine Glucose (UA) Negative (NEGATIVE) mg/dL Urine Ketones Negative (NEGATIVE) mg/dL Urine Occult Blood Trace-i (NEGATIVE) Urine Nitrite Negative (NEGATIVE) Urine Bilirubin Negative (NEGATIVE) Urine Urobilinogen 0.2 (0.2-1.0) EU/dL Ur Leukocyte Esterase Small A (NEGATIVE) Urine RBC 2-5 A (0-2) #/HPF Urine WBC 10-20 A (NONE SEEN) #/HPF Ur Squamous Epith Cells Many A (NONE/RARE) #/LPF Urine Crystals None seen (None Seen) #/HPF Urine Bacteria Large A (NONE SEEN) #/HPF Urine Casts None seen (NONE SEEN) #/LPF Urine Mucus None seen (NONE SEEN) Ur Culture Indicated? Yes-[facility] [place] HCG, Qual Negative (NEGATIVE) Influenza Type A Ag Negative Influenza Type B Ag Negative SARS-CoV-2 Ag (CV2AG) Negative (NEGATIVE) ECG Data Attestation: I personally reviewed and interpreted this ECG as follows: Interpretation: Prelim EKG interpretation: normal sinus rhythm 94 BPM, no ectopy, no ST segment elevation, normal axis. Discharge Plan Discharge Chief Complaint: Dizziness Clinical Impression: UTI (urinary tract infection) Patient Disposition: Home, Self-Care Time of Disposition Decision: 17:37 Prescriptions / Home Meds: New cephalexin 500 mg capsule 500 mg PO BID 5 Days Qty: 10 0RF No Action dicyclomine 10 mg capsule 10 mg PO QID PRN (Reason: abdominal pain) Qty: 12 0RF duloxetine 60 mg capsule,delayed release(DR/EC) 60 mg PO DAILY lamotrigine 100 mg tablet 300 mg PO DAILY sucralfate 1 gram tablet 1 g PO .before meals potassium chloride [Klor-Con M20] 20 mEq tablet,ER particles/crystals 40 meq PO DAILY acebutolol 200 mg capsule 200 mg PO BID pantoprazole 40 mg tablet,delayed release (DR/EC) 40 mg PO Q12H tizanidine 4 mg tablet 8 mg PO BEDTIME triamterene-hydrochlorothiazid 75-50 mg tablet 1 tab PO DAILY Print Language: Greenlandic Instructions: Urinary Incontinence (ED) Referrals: Felipe Brooke MD [Primary Care Provider, Family Practice] - As soon as possible
[2025-08-14] MEDS: ACETAMINOPHEN 500 MG TABLET 1000 MG PO (16:45)
[2025-08-14 16:52] LABS: Glucose Urine UA NEGATIVE (NEGATIVE)
[2025-08-14 16:52] LABS: Hematocrit 41.8 % (36.0-48.0); Hemoglobin 13.7 g/dL (12.0-16.0); Mean Corpuscular HGB Conc 32.8 g/dL (29.9-35.2); Mean Corpuscular Hemoglobin 27.7 pg (26.7-34.0); Mean Corpuscular Volume 84.4 fL (81.0-99.0); Platelet Count 207 10^3/uL (150-450); Red Blood Count 4.95 10^6/uL (4.20-5.40); White Blood Count 7.6 10^3/uL (4.0-11.0)
[2025-08-14 16:55] LABS: HCG Qualitative Urine* NEGATIVE (NEGATIVE)
[2025-08-14 17:05] LABS: Cast Seen? NONE SEEN #/LPF (NONE SEEN); Crystals Seen? None Seen #/HPF (None Seen); Urine Culture Indicated YES-FRMC
[2025-08-14 17:07] LABS: SARS-CoV-2 Ag NEGATIVE (NEGATIVE)
[2025-08-14 17:11] LABS: Segmented Neut Absolute Manual 6.53 10^3/uL (1.4-6.5); Segmented Neutrophils % Manual 86.0 (43.0-75.0)
[2025-08-14 17:12] LABS: Basophils Abs Manual 0.00 10^3/uL (0.00-0.10); Basophils Percent Manual 0.0 % (0.2-2.0); Eosinophils Absolute Manual 0.00 10^3/uL (0.00-0.70); Eosinophils Percent Manual 0.0 % (0.9-7.0); Lymphocytes Absolute Manual 0.68 10^3/uL (1.20-3.80); Lymphocytes Percent Manual 9.0 % (20.5-60.0); Monocytes Absolute Manual 0.38 10^3/uL (0.30-0.80); Monocytes Percent Manual 5.0 % (1.7-12.0)
[2025-08-14 17:21] LABS: Alanine Aminotransferase 65 U/L (14-59); Albumin Globulin Ratio 1.1; Albumin Level 4.0 g/dL (3.4-5.0); Alkaline Phosphatase 75 U/L (46-116); Anion Gap 13.4; Aspartate Amino Transferase 34 U/L (15-37); Blood Urea Nitrogen 15.0 mg/dL (7.0-18.0); Calcium 8.4 mg/dL (8.5-10.1); Carbon Dioxide 30.0 mmol/L (21.0-32.0); Chloride 97 mmol/L (98-107); Estimated GFR (African America 59 (>=60 mL/min/1.73m^2); Estimated GFR (Non-African Ame 49 (>=60 mL/min/1.73m^2); Globulin 3.5 g/dL; Glucose 96 mg/dL (74-106); Magnesium 1.5 mg/dL (1.8-2.4); Potassium 3.4 mmol/L (3.5-5.1); Sodium 137 mmol/L (136-145); TSH W/ REFLEX FT4 1.656 uIU/mL (0.358-3.740); Total Protein 7.5 g/dL (6.4-8.2)
[2025-08-14] MEDS: CEPHALEXIN 500 MG CAPSULE PO (17:48)
== END 2025-08-14 17:54 | disposition home or self-care (01) ==
PROVIDERS: Personal Emergency Response Attendant; Emergency Provider Emergency Medicine; PCP Family Medicine
DX: N39.0 Urinary tract infection, site not specified (principal); I10 Essential (primary) hypertension
CPT/HCPCS: 36415; 80053; 81001; 83735; 84443; 84703; 85007; 85027; 87086; 87804; 87811; 93005; 99284